=== PATIENT | female | born 1995 | race Caucasian/White ===

== ENCOUNTER 2023-05-21 16:54 | Emergency (ER) | payer BC, SELFPAY ==
[2023-05-21 16:59] VITALS: BP 138/92; PULSE 93; RESP 18; TEMP 36.6; O2SAT 100; BMI 42.9
--- NOTE | 2023-05-21 17:13 | ECG_ITS ---
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
--- NOTE | 2023-05-21 17:13 | XR_ITS ---
The [address] [address] Patient Name: VADIM CONSTANTINO MRN: [id number] date: 1995 Sex: F Assigned Patient Location: ER Current Patient Location: ER Accession/Order Number: [id number] Exam Date: 05/21/2023 17:31 Report Date: 05/21/2023 18:38 At the request of: MARTA MARTIN Procedure: XR chest 1V EXAM: XR chest 1V at 1701 hours HISTORY: cp COMPARISON: None. TECHNIQUE: AP upright portable chest X FINDINGS: The heart is not enlarged and the vasculature is not distended. No acute infiltrate, effusion or pneumothorax is identified. The osseous structures are grossly intact. XR/XR chest 1V IMPRESSION: No acute infiltrate or evidence of cardiac decompensation. Direct comparison with a previous study would be helpful in determining the chronicity of these findings. Electronically authenticated by: WILMER MYLES Date: 05/21/2023 18:38
[2023-05-21] MEDS: FAMOTIDINE/PF 20 MG/2 ML VIAL IV (17:29)
[2023-05-21 17:36] LABS: Basophils Absolute Auto 0.1 10^3/uL (0.0-0.1); Basophils Percent Auto 0.8 % (0.2-2.0); Eosinophils Absolute Auto 0.2 10^3/uL (0.0-0.7); Eosinophils Percent Auto 1.3 % (0.9-7.0); Hematocrit 38.7 % (36.0-48.0); Hemoglobin 12.2 g/dL (12.0-16.0); Immature Granulocytes Abs Auto 0.29 10^3/uL (0.00-0.03); Immature Granulocytes Pct Auto 1.9 % (0.0-0.5); Lymphocytes Absolute Auto 5.7 10^3/uL (1.2-3.8); Lymphocytes Percent Auto 37.8 % (20.5-60.0); Mean Corpuscular HGB Conc 31.5 g/dL (29.9-35.2); Mean Corpuscular Hemoglobin 25.4 pg (26.7-34.0); Mean Corpuscular Volume 80.6 fL (81.0-99.0); Mean Platelet Volume 9.1 fL (9.5-13.5); Monocytes Absolute Auto 0.8 10^3/uL (0.3-0.8); Monocytes Percent Auto 5.3 % (1.7-12.0); Neutrophils Absolute Auto 7.9 10^3/uL (1.4-6.5); Neutrophils Percent Auto 52.9 % (43.0-75.0); Platelet Count 442 10^3/uL (150-450); Red Cell Distribution Width 14.8 % (11.0-15.0)
[2023-05-21 17:54] LABS: Alanine Aminotransferase 38 U/L (14-59); Albumin Globulin Ratio 0.8; Albumin Level 3.6 g/dL (3.4-5.0); Alkaline Phosphatase 71 U/L (46-116); Anion Gap 9.6; Aspartate Amino Transferase 16 U/L (15-37); BUN Creatinine Ratio 17.6; Bilirubin Total 0.3 mg/dL (0.2-1.0); Calcium 8.8 mg/dL (8.5-10.1); Carbon Dioxide 29.1 mmol/L (21.0-32.0); Chloride 103 mmol/L (98-107); Estimated GFR (African America >60 (>=60); Estimated GFR (Non-African Ame >60 (>=60); Globulin 4.3 g/dL; Glucose 106 mg/dL (74-106); Potassium 3.7 mmol/L (3.5-5.1); Sodium 138 mmol/L (136-145); Total Protein 7.9 g/dL (6.4-8.2); Troponin I High Sensitivity 4.4 pg/mL (4.0-51.3)
--- NOTE | 2023-05-21 18:02 | CT_ITS ---
The [address] [address] Patient Name: VADIM CONSTANTINO MRN: [id number] date: 1995 Sex: F Assigned Patient Location: ER Current Patient Location: ED.MAIN Accession/Order Number: [id number] Exam Date: 05/21/2023 18:32 Report Date: 05/21/2023 19:10 At the request of: MARTA MARTIN Procedure: CT abdomen pelvis wo con EXAMINATION: CT abdomen pelvis wo con, 05/21/2023 6:32 PM EDT HISTORY: abd pain epigastric RUQ COMPARISON: None. TECHNIQUE: CT scan of the abdomen and pelvis was performed without IV contrast. CT dose reduction technique was used, including Automated Exposure Control. FINDINGS: LOWER CHEST: The visualized lungs are clear. LIVER: Unremarkable. GALLBLADDER AND BILIARY SYSTEM: Status post cholecystectomy. There is no intra or extrahepatic biliary ductal dilatation. SPLEEN: Unremarkable. PANCREAS: Unremarkable. ADRENAL GLANDS: Unremarkable. KIDNEYS AND URETERS: No nephrolithiasis or hydronephrosis. No ureteral calculus. BLADDER: Unremarkable. GASTROINTESTINAL TRACT: No evidence of bowel obstruction or colitis. Normal appendix. VASCULATURE: The abdominal aorta is normal in caliber. RETROPERITONEUM: No lymphadenopathy. PERITONEUM/MESENTERY: No abdominal ascites. No free air. PELVIS: No pelvic ascites or lymphadenopathy. BODY WALL: Small fat-containing umbilical hernia. BONES: No acute abnormality. CT/CT abdomen pelvis wo con IMPRESSION: Cholelithiasis. No gallbladder wall thickening or biliary ductal dilatation. Electronically authenticated by: MYLES BENEDICT Date: 05/21/2023 19:10
--- NOTE | 2023-05-21 18:14 | ED.ABDPAIN1 ---
HPI - Abdominal Pain General Chief Complaint: Abdominal Pain Stated Complaint: pressure in upper abdominal, sitting on chest, sha Time Seen by Provider: 05/21/23 17:05 Source: patient Mode of arrival: walk-in Limitations: no limitations History of Present Illness HPI narrative: The patient presented to us with a feeling of abdominal pain in her epigastric area radiating to her chest pressure-like, the patient mentioned that the pain was preceded by her eating almost an hour ago The pain started while she was laying down The patient mentioned that it was a pressure-like and associated with no sweating but she did had some nausea No history of smoking cigarette no history of similar symptoms Related Data Home Medications Medication Instructions Recorded Confirmed sertraline 50 mg tablet 50 mg PO Q24H 05/21/23 05/21/23 Allergies Allergy/AdvReac Type Severity Reaction Status Date / Time No Known Drug Allergies Allergy Verified 05/21/23 17:03 Review of Systems ROS Status of ROS 10 or more systems reviewed and unremarkable except as noted in history and below Exam Narrative Exam Narrative: Nurses notes and vital signs reviewed and patient is not hypoxic. General: Well-appearing and in no apparent distress. Skin: Warm, dry, no pallor noted. No rash. Head: Normocephalic, atraumatic. Neck: Supple, non-tender. Eye: Pupils are equal, round and EOMI. No scleral icterus. Ears, Nose, Mouth, and Throat: TM are clear, no nasal mucosal hypertrophy. Oral mucosa is moist, no posterior oropharynx erythema, uvula is mid-line Cardiovascular: Regular Rate and Rhythm without murmur, gallop or rub. Respiratory: No accessory muscle use or respiratory distress. Lungs are clear to auscultation, no wheezing, rales or rhonchi Chest Wall: no tenderness Back: No midline thoracic or lumbar vertebral tenderness. No CVA tenderness Musculoskeletal: normal ROM, no calf or popliteal tenderness, no lower extremity edema/swelling GI: Abdomen is soft, non-distended. Normal bowel sounds. No masses appreciated. Mild epigastric tenderness Neurological: A&O x4. No cranial nerve dysfunction observed. No truncal ataxia. Moves all extremities. Sensation intact. Psychiatric: Cooperative and interactive. Normal mood and affect. Constitutional Vital Signs, click to edit/add: Last Vital Signs Temp 97.9 F 05/21/23 16:59 Pulse 93 H 05/21/23 16:59 Resp 18 05/21/23 16:59 BP 138/92 H 05/21/23 16:59 Pulse Ox 100 05/21/23 16:59 O2 Del Method Room Air 05/21/23 16:59 Course Vital Signs Vital signs: Vital Signs Temperature 97.9 F 05/21/23 16:59 Pulse Rate 93 H 05/21/23 16:59 Respiratory Rate 18 05/21/23 16:59 Blood Pressure 138/92 H 05/21/23 16:59 Pulse Oximetry 100 05/21/23 16:59 Oxygen Delivery Method Room Air 05/21/23 16:59 Temperature 97.9 F 05/21/23 16:59 Pulse Rate 93 H 05/21/23 16:59 Respiratory Rate 18 05/21/23 16:59 Blood Pressure 138/92 H 05/21/23 16:59 Pulse Oximetry 100 05/21/23 16:59 Oxygen Delivery Method Room Air 05/21/23 16:59 MDM - Abdominal Pain MDM Narrative Medical decision making narrative: The patient EKG showing sinus rhythm with a heart rate of [address] elevation or depression The patient CBC shows some leukocytosis the first troponin was negative we will repeat another troponin due to the patient's risk factors of morbid obesity Chest x-ray showed no acute pathology The patient was treated in the ER with Pepcid right now mostly the patient presentation secondary to chest pain secondary to acid reflux The patient had a CAT scan abdomen pelvis pending------pt care will be transferred to Dr Yo awaiting the rest of the work up Lab Data Labs: Lab Results 05/21/23 05/21/23 Range/Units 12:12 17:00 WBC 15.0 H (4.0-11.0) 10^3/uL RBC 4.80 (4.20-5.40) 10^6/uL Hgb 12.2 (12.0-16.0) g/dL Hct 38.7 (36.0-48.0) % MCV 80.6 L (81.0-99.0) fL MCH 25.4 L (26.7-34.0) pg MCHC 31.5 (29.9-35.2) g/dL RDW 14.8 (11.0-15.0) % Plt Count 442 (150-450) 10^3/uL MPV 9.1 L (9.5-13.5) fL Neut % (Auto) 52.9 (43.0-75.0) % Lymph % (Auto) 37.8 (20.5-60.0) % [place] % (Auto) 5.3 (1.7-12.0) % Eos % (Auto) 1.3 (0.9-7.0) % Baso % (Auto) 0.8 (0.2-2.0) % Neut # (Auto) 7.9 H (1.4-6.5) 10^3/uL Lymph # (Auto) 5.7 H (1.2-3.8) 10^3/uL [place] # (Auto) 0.8 (0.3-0.8) 10^3/uL Eos # (Auto) 0.2 (0.0-0.7) 10^3/uL Baso # (Auto) 0.1 (0.0-0.1) 10^3/uL Abs Immat Gran (auto) 0.29 H (0.00-0.03) 10^3/uL Imm/Tot Granulo (auto) 1.9 H (0.0-0.5) % Sodium 138 (136-145) mmol/L Potassium 3.7 (3.5-5.1) mmol/L Chloride 103 (98-107) mmol/L Carbon Dioxide 29.1 (21.0-32.0) mmol/L Anion Gap 9.6 BUN 15.0 (7.0-18.0) mg/dL Creatinine 0.85 (0.55-1.02) mg/dL Est GFR ( Amer) >60 (>=60) Est GFR (Non-Af Amer) >60 (>=60) BUN/Creatinine Ratio 17.6 Glucose 106 (74-106) mg/dL Calcium 8.8 (8.5-10.1) mg/dL Total Bilirubin 0.3 (0.2-1.0) mg/dL AST 16 (15-37) U/L ALT 38 (14-59) U/L Alkaline Phosphatase 71 (46-116) U/L Troponin I High Sens 4.4 (4.0-51.3) pg/mL Total Protein 7.9 (6.4-8.2) g/dL Albumin 3.6 (3.4-5.0) g/dL Globulin 4.3 g/dL Albumin/Globulin Ratio 0.8 Urine HCG, Qual Negative (NEGATIVE) Discharge Plan Discharge Patient Disposition: Still a Patient
[2023-05-21 18:40] LABS: HCG Qualitative NEGATIVE (NEGATIVE)
[2023-05-21 19:23] LABS: Troponin I High Sensitivity <4.0 pg/mL (4.0-51.3)
[2023-05-21 19:43] LABS: D Dimer 0.57 mg/L FEU (<=0.59)
[2023-05-21] MEDS: 0.9 % SODIUM CHLORIDE 1,000 ML 999 ML IV (20:10)
[2023-05-21] MEDS: ONDANSETRON PF 4 MG/2 ML VIAL IV (20:10)
[2023-05-21] MEDS: PANTOPRAZOLE SODIUM 40 MG VIAL IV (20:15)
[2023-05-21 20:37] LABS: Bilirubin Urine NEGATIVE (NEGATIVE); Blood Urine MODERATE (NEGATIVE); Clarity Urine CLEAR (CLEAR); Color Urine YELLOW (YELLOW); Glucose Urine UA NEGATIVE (NEGATIVE); Ketones Urine NEGATIVE (NEGATIVE); Leukocyte Esterase Urine NEGATIVE (NEGATIVE); Nitrite Urine NEGATIVE (NEGATIVE); Protein Urine NEGATIVE (NEG/TRACE); Specific Gravity Urine >=1.030 (1.005-1.025); Urine Microscopic Indicated YES; Urobilinogen Urine 0.2 EU/dL (0.2-1.0); pH Urine 5.5 (5.0-9.0)
[2023-05-21 20:44] LABS: Bacteria Urine MODERATE #/HPF (NONE SEEN); Cast Seen? NONE SEEN #/LPF (NONE SEEN); Crystals Seen? None Seen #/HPF (None Seen); Mucus Urine LARGE (NONE SEEN); Squamous Epithelial Cell Urine MANY #/LPF (NONE/RARE); Urine Culture Indicated YES
--- NOTE | 2023-05-25 09:54 | PC.NURSE ---
05/25/23 0954 pt c+s from urine reviewed by dr ifeanyi walker called into [facility] in [place] per pt request. pt updated on atb to follow up with pcp to verify uti clearance. pt v/u and denies any further question. Ron Frank RN
== END 2023-05-21 21:23 | disposition home or self-care (01) ==
PROVIDERS: Emergency Medicine; Emergency Provider Emergency Medicine
DX: K21.9 Gastro-esophageal reflux disease without esophagitis (principal); E66.01 Morbid (severe) obesity due to excess calories; Z79.899 Other long term (current) drug therapy; Z68.41 Body mass index [BMI] 40.0-44.9, adult
CPT/HCPCS: 36415; 71045; 74176; 80053; 81003; 81015; 84484; 84703; 85025; 85378; 87086; 87150; 87186; 93005; 96374; 96375; 99285

== ENCOUNTER 2023-12-13 14:00 | Outpatient (OUT) | payer BC, SELFPAY ==
--- NOTE | 2023-12-13 | US_ITS ---
[address] [address] Patient Name: VADIM CONSTANTINO MRN: [id number] date: 1995 Sex: F Assigned Patient Location: [facility] Current Patient Location: [facility] Accession/Order Number: [id number] Exam Date: 12/13/2023 14:02 Report Date: 12/13/2023 15:36 At the request of: ESTELLA BUENO Procedure: US OB transvaginal EXAMINATION: US OB transvaginal HISTORY: MISSED MENSES COMPARISON: No relevant comparison available. FINDINGS: GESTATIONAL SAC: Present and normal appearing. YOLK SAC: Present and normal appearing. POLE: Present and normal appearing. CARDIAC: Present. UTERUS: Normal size and appearance. OVARIES: Right: Normal. Left: Normal. CERVIX: 4.2 cm in length and closed. CUL-DE-SAC: Normal. OTHER: None. AGE BY LMP: 9 weeks 0 days NILE BY LMP: 07/17/2024 AGE BY US CRL: 8 weeks 3 days NILE BY US CRL: 07/21/2024 US/US OB transvaginal IMPRESSION: 1. Single live intrauterine . Electronically authenticated by: DEE GALLEGOS Date: 12/13/2023 15:36
== END 2023-12-13 14:01 | disposition home or self-care (01) ==
LOC: NOMS 14:00
PROVIDERS: Visit Provider Obstetrics & Gynecology
DX: Z34.91 Encounter for supervision of normal pregnancy, unspecified, first trimester (principal); Z3A.08 8 weeks gestation of pregnancy; N92.6 Irregular menstruation, unspecified
CPT/HCPCS: 76817

== ENCOUNTER 2023-12-20 12:10 | Outpatient (OUT) | payer BC, SELFPAY ==
--- OUTSIDE RECORDS SUMMARY | 2023-12-20 12:16 | XMS_ITS | CCD ---
Author Name Unknown Address [address] [place] [address] Organization [facility] Care Team Providers Care Stereo Equipment Salesperson Name Role Phone MECHELLE ., DR SORIA Attending Unavailable SANTANA, DR GISSEL Teresa Primary Care Unavailable MECHELLE ., DR SORIA Consulting Unavailable MECHELLE ., DR SORIA Admitting Unavailable SANTANA, DR GISSEL Teresa Primary Care Unavailable MECHELLE ., DR SORIA Attending Unavailable MECHELLE ., DR SORIA Consulting Unavailable MECHELLE ., DR SORIA Admitting Unavailable MECHELLE ., DR SORIA Attending Unavailable SANTANA, DR GISSEL Teresa Primary Care Unavailable MECHELLE ., DR SORIA Consulting Unavailable MECHELLE ., DR SORIA Admitting Unavailable ZIEBER, DR DEE Green Consulting Unavailable SANTANA, DR GISSEL Teresa Primary Care Unavailable MECHELLE ., DR SORIA Attending Unavailable Sebastian Henry Consulting Unavailable MECHELLE ., DR SORIA Admitting Unavailable MECHELLE ., DR SORIA Consulting Unavailable SANTANA, DR GISSEL Teresa Primary Care Unavailable MECHELLE ., DR SORIA Attending Unavailable MECHELLE ., DR SORIA Consulting Unavailable MECHELLE ., DR SORIA Admitting Unavailable ZIEBER, DR DEE Green Consulting Unavailable SANTANA, DR GISSEL Teresa Primary Care Unavailable KARASIK ., DR MONTENEGRO Attending Unavailabl e KARRENEK ., DR MONTENEGRO Consulting Unavailabl e KARASIK ., DR MONTENEGRO Admitting Unavailabl e SANTANA, DR GISSEL Teresa Primary Care Unavailable KARASIK ., DR MONTENEGRO Consulting Unavailabl e KARRENEK ., DR MONTENEGRO Admitting Unavailabl e KARRENEK ., DR MONTENEGRO Attending Unavailjudith e Sebastian Henry Consulting Unavailable MECHELLE ., DR SORIA Consulting Unavailable ESTHER, DR GISSEL Teresa Primary Care Unavailable MECHELLE ., DR SORIA Consulting Unavailable MECHELLE ., DR SORIA Admitting Unavailable MECHELLE ., DR SORIA Attending Unavailable ZIEBER, DR DEE Green Consulting Unavailable SANTANA, DR GISSEL Teresa Primary Care Unavailable MECHELLE ., DR SORIA Attending Unavailable MECHELLE ., DR SORIA Consulting Unavailable MECHELLE ., DR SORIA Admitting Unavailable SANTANA, DR GISSEL Teresa Primary Care Unavailable MECHELLE ., DR SORIA Attending Unavailable MECHELLE ., DR SORIA Consulting Unavailable MECHELLE ., DR SORIA Admitting Unavailable ZIEBER, DR DEE Green Consulting Unavailable SANTANA, DR GISSEL Teresa Primary Care Unavailable MECHELLE ., DR SORIA Attending Unavailable MECHELLE ., DR SORIA Consulting Unavailable MECHELLE ., DR SORIA Admitting Unavailable MECHELLE ., DR SORIA Attending Unavailable SANTANA, DR GISSEL Teresa Primary Care Unavailable MECHELLE ., DR SORIA Consulting Unavailable MECHELLE ., DR SORIA Admitting Unavailable SANTANA, DR GISSEL Teresa Primary Care Unavailable KARASIK ., DR MONTENEGRO Consulting Unavailabl e KARASIK ., DR MONTENEGRO Admitting Unavailabl e KARASIK ., DR MONTENEGRO Attending Unavailabl e SANTANA, DR GISSEL Teresa Primary Care Unavailable KARASIK ., DR MONTENEGRO Consulting Unavailabl e KARASIK ., DR MONTENEGRO Admitting Unavailabl e KARASIK ., DR MONTENEGRO Attending Unavailabl e SANTANA, DR GISSEL Teresa Primary Care Unavailable KARASIK ., DR MONTENEGRO Consulting Unavailabl e KARASIK ., DR MONTENEGRO Admitting Unavailabl e KARASIK ., DR MONTENEGRO Attending Unavailabl e SANTANA, DR GISSEL Teresa Primary Care Unavailable MECHELLE ., DR SORIA Attending Unavailable MECHELLE ., DR SORIA Consulting Unavailable MECHELLE ., DR SORIA Admitting Unavailable MECHELLE ., DR SORIA Attending Unavailable SANTANA, DR GISSEL Teresa Primary Care Unavailable MECHELLE ., DR SORIA Admitting Unavailable MECHELLE ., DR SORIA Consulting Unavailable SANTANA, DR GISSEL Teresa Primary Care Unavailable MECHELLE ., DR SORIA Attending Unavailable MECHELLE ., DR SORIA Consulting Unavailable MECHELLE ., DR SORIA Admitting Unavailable SANTANA, DR GISSEL Teresa Primary Care Unavailable MECHELLE ., DR SORIA Attending Unavailable MECHELLE ., DR SORIA Consulting Unavailable MECHELLE ., DR SORIA Admitting Unavailable MECHELLE ., DR SORIA Admitting Unavailable SANTANA, DR GISSEL Teresa Primary Care Unavailable MECHELLE ., DR SORIA Attending Unavailable SANTANA, DR GISSEL Teresa Primary Care Unavailable KARASIK ., DR MONTENEGRO Attending Unavailabl e KARRENEK ., DR MONTENEGRO Admitting Unavailabl e SANTANA, DR GISSEL Teresa Primary Care Unavailable KARASIK ., DR MONTENEGRO Admitting Unavailabl e KARASIK ., DR MONTENEGRO Attending Unavailabl e HOY ., DR SHOEMAKER Consulting Unavailable KARASIK ., DR MONTENEGRO Consulting Unavailabl e MECHELLE ., DR SORIA Consulting Unavailable ZIEBER, DR DEE Green Consulting Unavailable LEO, LISSETT Consulting Unavailable YOEL MAY Consulting Unavailable SANTANA, DR GISSEL Teresa Primary Care Unavailable MECHELLE ., DR SORIA Attending Unavailable MECHELLE ., DR SORIA Admitting Unavailable MECHELLE ., DR SORIA Attending Unavailable MECHELLE ., DR SORIA Admitting Unavailable Aniket, Sebastian Consulting Unavailable SANTANA, DR GISSEL Teresa Primary Care Unavailable MECHELLE ., DR SORIA Consulting Unavailable SANTANA, DR GISSEL eTresa Primary Care Unavailable MECHELLE ., DR SORIA Admitting Unavailable MECHELLE ., DR SORIA Attending Unavailable Gissel Santana Unavailable TERESA Witt Attending Provider Olive Howard Unavailable Linsey Witt Attending Unavailable Linsey Witt Admitting Unavailable NO FAMILY, PHYSICIAN Primary Care Unavailable Linsey Witt Unavailable Gissel Santana MD Primary Care Provider [phone] Medications Current Medications Medication Drug Class(es) Dates Sig (Normalized) Sig (Original) amoxicillin 500 mg oral capsule (3 sources) Penicillin-class Antibacterial Start: 05-15-2023 take 1 capsule by mouth every twelve hours Amoxicillin 500 MG 1 capsule Orally Twice a day for 10 days Apr, Active ondansetron 4 mg disintegrating oral tablet (1 source) Serotonin-3 Receptor Antagonist Start: 12-13-2023 End: 03-12-2024 take 1 tablet by mouth every six hours for nausea ondansetron ODT (Zofran-ODT) 4 MG disintegrating tablet Indications: Missed menses Take 1 tablet (4 mg) by mouth every 6 (six) hours if needed for nausea or vomiting 30 tablet 2 12/13/2023 03/12/2024 Active predniSONE 20 mg oral tablet (3 sources) Start: 05-15-2023 take 1 tablet by mouth every twelve hours prednisone 20 MG 1 tablet Orally BID for 5 18 Apr, 2023 Active Vit-Fe Fumarate-FA ( Plus/Iron) 27-1 MG tablet (1 source) Start: 12-13-2023 End: 12-12-2024 take 1 tablet by mouth in the morning Vit-Fe Fumarate-FA ( Plus/Iron) 27-1 MG tablet Indications: Missed menses Take 1 tablet by mouth in the morning. 90 tablet 3 12/13/2023 12/12/2024 Active sertraline 50 mg oral tablet (10 sources) Serotonin Reuptake Inhibitor Start: 11-21-2023 take 1 tablet by mouth in the morning sertraline (Zoloft) 50 MG tablet Take 50 mg by mouth in the morning. 0 11/21/2023 Active Start: 04-12-2023 Sertraline HCl 50 MG 1/2 tablet for 7 days, then 1 daily Orally Once a day for 30 days Mar, Active take 1 tablet by rafat th every twenty-four hours Sertraline HCl 50 MG 1 tablet Orally Once a day for 90 days Active Sertraline HCl 5 0 MG TAKE 1/2 TABLET DAILY FOR 7 DAYS THEN 1 DAILY THEREAFTER for 30 Not-Taking Sertraline HCl 5 0 MG TAKE 1/2 TABLET DAILY FOR 7 DAYS THEN 1 DAILY THEREAFTER for 30 Active Completed/Discontinued Medications Medication Drug Class(es) Dates Sig (Normalized) Sig (Original) acetaminophen 325 mg / oxyCODONE hydrochloride 5 mg oral tablet (3 sources) Opioid Agonist oxyCODONE-Acetam inophe n 5-325 MG Oral for 3 Days Not-Taking/PRN docusate sodium 100 mg oral capsule (3 sources) Docusate Sodium 100 MG Oral for 30 Days Not-Taking/PRN Flowflex COVID-19 Ag Home Test - (3 sources) Flowflex COVID-1 9 Ag Home Test - In Vitro for 30 Days Not-Taking/PRN Flowflex COVID-1 9 Ag Home Test - In Vitro for 30 Days Not-Taking ibuprofen 800 mg oral tablet (3 sources) Nonsteroidal Anti-inflammatory Drug Ibuprofen 800 MG Oral for 8 Days Not-Taking/PRN 24 hr metFORMIN hydrochloride 500 mg extended release oral tablet (3 sources) Biguanide metFORMIN HCl ER 500 MG Oral for 30 Days Not-Taking/PRN norethindrone 0.35 mg oral tablet (4 sources) Start: 023 End: 024 take 1 tablet by mouth in the morning norethindrone (Micronor) 0.35 MG tablet Indications: control counseling Take 1 tablet (0.35 mg) by mouth in the morning. 84 tablet 3 04/04/2023 12/13/2023 Discontinued (Therapy completed) True Metrix Blood Glucose Test - (3 sources) True Metrix Bloo d Glucose Test - USE 1 TEST STRIP FOUR TIMES A DAY In Vitro for 25 Days Not-Taking/PRN True Metrix Bloo d Glucose Test - USE 1 TEST STRIP FOUR TIMES A DAY In Vitro for 25 Days Not-Taking Problems Active Problems Problem Classification Problem Date Documented Da te Episodic/Chronic Anxiety disorders (7 sources) Mixed anxiety and depressive disorder; Translations: [Anxiety disorder, unspecified] Chronic Diabetes or abnormal glucose tolerance complicating ; childbirth; or the puerperium (13 sources) Gestational diabetes mellitus in childbirth, controlled by oral hypoglycemic drugs; Translations: [Gestational diabetes mellitus in , unspecified control] Onset: 12-01-2022 Episodic Hypertension complicating ; childbirth and the puerperium (1 source) Unspecified pre-eclampsia, complicating childbirth; Translations: [UNSPECIFIED PRE-ECLAMPSIA COMP CB] Onset: 02-15-2023 Episodic Menstrual disorders (8 sources) Irregular menstruation, unspecified; Translations: [Secondary amenorrhea] Onset: 07-20-2022 Chronic Other complications of ; puerperium affecting management of mother (1 source) Obesity complicating childbirth; Translations: [OBESITY COMPLICATING CHILDBIRTH] Onset: 02-15-2023 Chronic Other nervous system disorders (1 source) Cerebral cysts; Translations: [CEREBRAL CYSTS] Onset: 11-15-2022 Chronic Other and delivery including normal (11 sources) Single live ; Translations: [ state, incidental] Onset: 07-21-2022 Episodic Other upper respiratory infections (1 source) Acute pharyngitis, unspecified Episodic Previous (3 sources) Maternal care for low transverse scar from previous delivery; Translations: [MAT CARE LW TRANS SCAR PREV C/S DEL] Onset: 02-01-2023 Episodic Residual codes; unclassified (1 source) 35 weeks gestation of ; Translations: [35 WEEKS GESTATION OF ] Onset: 02-15-2023 Episodic Residual codes; unclassified (1 source) Family history of diabetes mellitus; Translations: [FAMILY HISTORY OF DIABETES MELLITUS] Onset: 02-15-2023 Episodic Residual codes; unclassified (1 source) Family history of ischemic heart disease and other diseases of the circulatory system; Translations: [FAM HX ISCHEMIC HRT DZ OTH DZ CIRC] Onset: 02-15-2023 Episodic Residual codes; unclassified (1 source) 34 weeks gestation of ; Translations: [34 WEEKS GESTATION OF ] Onset: 01-31-2023 Episodic Residual codes; unclassified (1 source) 33 weeks gestation of ; Translations: [33 WEEKS GESTATION OF ] Onset: 01-21-2023 Episodic Residual codes; unclassified (1 source) 32 weeks gestation of ; Translations: [32 WEEKS GESTATION OF ] Onset: 01-19-2023 Episodic Umbilical cord complication (1 source) Labor and delivery complicated by cord around neck, with compression, not applicable or unspecified; Translations: [L AND D COMP CRD AROUND NCK COMPRS UNS] Onset: 02-15-2023 Episodic Past or Other Problems Problem Classification Problem Date Documented Date Episodic/Chronic Diabetes mellitus without complication (4 sources) Other abnormal glucose; Translations: [OTHER ABNORMAL GLUCOSE] Onset: 09-29-2022 Episodic Immunizations and screening for infectious disease (2 sources) Encounter for screening for human papillomavirus (HPV); Translations: [Contact with and (suspected) exposure to infections with a predominantly sexual mode of transmission] Onset: 11-15-2022 Episodic Mood disorders (1 source) Mood disorders Other complications of (1 source) Maternal care for other specified problems, unspecified trimester, not applicable or unspecified; Translations: [MAT CARE OTH FTL PROB UNS TRI UNS] Onset: 11-15-2022 Episodic Other female genital disorders (1 source) Other specified noninflammatory disorders of vagina; Translations: [OTH SPEC NONINFLAMMATORY D/O VAGINA] Onset: 11-15-2022 Episodic Other screening for suspected conditions (not mental disorders or infectious disease) (15 sources) Encounter for screening for malignant neoplasm of cervix; Translations: [Encounter for screening for diabetes mellitus] Onset: 07-27-2022 Episodic Residual codes; unclassified (1 source) Weeks of gestation of not specified; Translations: [WEEKS GESTATION NOT SPEC] Onset: 11-15-2022 Episodic Thyroid disorders (4 sources) Disorder of thyroid, unspecified; Translations: [DISORDER OF THYROID UNSPECIFIED] Onset: 10-19-2022 Episodic Results Test Name Value Interpretation Reference Range Facility HCG ( test) Ql (U)o n 12-13-2023 Interpretation and review of laboratory results Abnormal [facility] Preg Test, Ur Positive [facility] Urinalysis macro (dipstick) panel (U)on 12-13-2023 Bilirubin, UA Negative Negative - 4(70) +++ mg/dL [facility] Blood, UA Negative Negative - 50 Sal/mcL [facility] Clarity, UA Clear [facility] Color, UA Yellow [facility] Glucose, UA Negative Negative - 1999(110) ++++ mg/dL [facility] Interpretation and review of laboratory results Abnormal [facility] Ketones, UA Positive Negative - 160(16) ++++ mg/dL [facility] Leukocytes, UA Negative Negative - 500+++ Lizzy/mcL [facility] Nitrite, UA Negative Negative - Positive [facility] pH, UA 7.0 5 - 9 [facility] Protein, UA Positive Negative - 1999(20) ++++ mg/dL [facility] Spec Grav, UA 1.030 1 - 1.03 [facility] Urobilinogen, UA 0.2 0.2 - 12 mg/dL [facility] Quick Strepon 05-15-2023 S. pyogenes Org specific cx Ql (Throat) Negative [employer] [facility] [employer] Other Quick Strep [employer] [facility] [employer] Other Throat Cultureon 05-15-2023 Throat culture Heavy Normal Respiratory John 2 Days PERFORMED BY: [address] [place] [address] PATHOLOGIST FURNITURE REMOVALIST'S ASSISTANT ARACELI HAYWOOD M.D. Normal [facility] Comment on above: Performed By: #### C UT #### [address] [place] [address] [facility] B STREP CULTUREon 01-27 S. agalactiae Ag Ql (Unsp spec) Isolate 1 Streptococcus agalactiae Moderate growth of ORGANISM 1 Streptococcus agalactiae ANTIBIOTIC M.I.C RX STATUS Benzylpenicillin <=0.06 S F Ampicillin <=0.25 S F Cefotaxime <=0.12 S F Ceftriaxone <=0.12 S F Levofloxacin 0.5 S F Inducible Clindamycin Resistance Neg NEG F Erythromycin >=8 R F Clindamycin >=1 R F Linezolid <=2 S F Vancomycin 0.5 S F Tetracycline <=0.25 S F Normal [facility] Comment on above: Performed By: #### A FPMAT #### [facility] [address] [place] [address] Dr. Alexsander Dickinson CBC AUTO DIFFon 02-02-2023 BASO # 0.0 103/ul Normal 0.0-0.1 [facility] Comment on above: Performed By: #### C BC #### [facility] [address] [place] [address] Dr. Alexsander Dickinson Basophils/100 WBC (Bld) 0.2 % Normal 0.2-2.0 [facility] Comment on above: Performed By: #### C BC #### [facility] [address] [place] [address] Dr. Alexsander Dickinson EO # 0.0 103/ul Normal 0.0-0.7 [facility] Comment on above: Performed By: #### C BC #### [facility] [address] [place] [address] Dr. Alexsander Dickinson Eosinophils/100 WBC (Bld) 0.0 % Critically low 0.9-7.0 [facility] Comment on above: Performed By: #### C BC #### [facility] [address] [place] [address] Dr. Alexsander Dickinson Erythrocyte distribution width (RBC) [Ratio] 12.5 % Normal 11.0-15.0 [facility] Comment on above: Performed By: #### C BC #### [facility] [address] [address] [address] Alexsander Dickinson Hematocrit (Bld) [Volume fraction] 32.9 % Critically low 36.0-48.0 [facility] Comment on above: Performed By: #### C BC #### [facility] [address] [place] [address] Dr. Alexsander Dickinson Hemoglobin (Bld) [Mass/Vol] 10.7 g/dL Critically low 12.0-16.0 [facility] Comment on above: Performed By: #### C BC #### [facility] [address] [address] [address] Alexsander Dickinson IG # 0.12 10e3/ul Critically high 0.00-0.03 [facility] Comment on above: Performed By: #### C BC #### [facility] [address] [place] [address] Dr. Alexsander Dickinson IG % 0.7 % Critically high 0.0-0.5 [facility] Comment on above: Performed By: #### C BC #### [facility] [address] [place] [address] Dr. Alexsander Dickinson LYMPH # 1.1 103/ul Critically low 1.2-3.8 [facility] Comment on above: Performed By: #### C BC #### [facility] [address] [place] [address] Dr. Alexsander Dickinson Lymphocytes/100 WBC (Bld) 6.4 % Critically low 20.5-60.0 [facility] Comment on above: Performed By: #### C BC #### [facility] [address] [place] [address] Dr. Alexsander Dickinson MANUAL DIFF REQ NO Normal [facility] Comment on above: Performed By: #### C BC #### [facility] [address] [place] [address] Dr. Alexsander Dickinson MCH (RBC) [Entitic mass] 26.1 pg Critically low 26.7-34.0 [facility] Comment on above: Performed By: #### C BC #### [facility] [address] [place] [address] Dr. Alexsander Dickinson MCHC (RBC) [Mass/Vol] 32.5 g/dL Normal 29.9-35.2 [facility] Comment on above: Performed By: #### C BC #### [facility] [address] [address] [address] Alexsander Dickinson MCV (RBC) [Entitic vol] 80.2 fL Critically low 81.0-99.0 [facility] Comment on above: Performed By: #### C BC #### [facility] [address] [place] [address] Dr. Alexsander Dickinson MONO # 0.4 103/ul Normal 0.3-0.8 [facility] Comment on above: Performed By: #### C BC #### [facility] [address] [place] [address] Dr. Alexsander Dickinson Monocytes/100 WBC (Bld) 2.1 % Normal 1.7-12.0 [facility] Comment on above: Performed By: #### C BC #### [facility] [address] [place] [address] Dr. Alexsander Dickinson NEUT # 15.5 103/ul Critically high 1.4-6.5 [facility] Comment on above: Performed By: #### C BC #### [facility] [address] [place] [address] Dr. Alexsander Dickinson Neutrophils/100 WBC (Bld) 90.6 % Critically high 43.0-75.0 [facility] Comment on above: Performed By: #### C BC #### [facility] [address] [place] [address] Dr. Alexsander Dickinson Platelet mean volume (Bld) [Entitic vol] 10.7 fL Normal 9.5-13.5 [facility] Comment on above: Performed By: #### C BC #### [facility] [address] [place] [address] Dr. Alexsander Dickinson PLT 310 103/ul Normal 150-450 [facility] Comment on above: Performed By: #### C BC #### [facility] [address] [place] [address] Dr. Alexsander Dickinson RBC 4.10 106/ul Critically low 4.20-5.40 [facility] Comment on above: Performed By: #### C BC #### [facility] [address] [place] [address] Dr. Alexsander Dickinson WBC 17.1 103/ul Critically high 4.0-11.0 [facility] Comment on above: Performed By: #### C BC #### [facility] [address] [place] [address] Dr. Alexsander Dickinson CBC AUTO DIFFon 02-01-2023 BASO # 0.0 103/ul Normal 0.0-0.1 [facility] Comment on above: Performed By: #### A 1C #### [facility] [address] [place] [address] Dr. Alexsander Dickinson Basophils/100 WBC (Bld) 0.2 % Normal 0.2-2.0 [facility] Comment on above: Performed By: #### A 1C #### [facility] [address] [place] [address] Dr. Alexsander Dickinson EO # 0.0 103/ul Normal 0.0-0.7 [facility] Comment on above: Performed By: #### A 1C #### [facility] [address] [place] [address] Dr. Alexsander Dickinson Eosinophils/100 WBC (Bld) 0.4 % Critically low 0.9-7.0 [facility] Comment on above: Performed By: #### A 1C #### [facility] [address] [place] [address] Dr. Alexsander Dickinson Erythrocyte distribution width (RBC) [Ratio] 12.9 % Normal 11.0-15.0 [facility] Comment on above: Performed By: #### A 1C #### [facility] [address] [place] [address] Dr. Alexsander Dickinson Hematocrit (Bld) [Volume fraction] 34.2 % Critically low 36.0-48.0 [facility] Comment on above: Performed By: #### A 1C #### [facility] [address] [place] [address] Dr. Alexsander Dickinson Hemoglobin (Bld) [Mass/Vol] 11.4 g/dL Critically low 12.0-16.0 [facility] Comment on above: Performed By: #### A 1C #### [facility] [address] [place] [address] Dr. Alexsander Dickinson IG # 0.04 10e3/ul Critically high 0.00-0.03 [facility] Comment on above: Performed By: #### A 1C #### [facility] [address] [place] [address] Dr. Alexsander Dickinson IG % 0.5 % Normal 0.0-0.5 [facility] Comment on above: Performed By: #### A 1C #### [facility] [address] [place] [address] Dr. Alexsander Dickinson LYMPH # 2.1 103/ul Normal 1.2-3.8 [facility] Comment on above: Performed By: #### A 1C #### [facility] [address] [place] [address] Dr. Alexsander Dickinson Lymphocytes/100 WBC (Bld) 23.9 % Normal 20.5-60.0 [facility] Comment on above: Performed By: #### A 1C #### [facility] [address] [place] [address] Dr. Alexsander Dickinson MANUAL DIFF REQ NO Normal [facility] Comment on above: Performed By: #### A 1C #### [facility] [address] [place] [address] Dr. Alexsander Dickinson MCH (RBC) [Entitic mass] 27.0 pg Normal 26.7-34.0 [facility] Comment on above: Performed By: #### A 1C #### [facility] [address] [place] [address] Dr. Alexsander Dickinson MCHC (RBC) [Mass/Vol] 33.3 g/dL Normal 29.9-35.2 [facility] Comment on above: Performed By: #### A 1C #### [facility] [address] [place] [address] Dr. Alexsander Dickinson MCV (RBC) [Entitic vol] 81.0 fL Normal 81.0-99.0 [facility] Comment on above: Performed By: #### A 1C #### [facility] [address] [place] [address] Dr. Alexsander Dickinson MONO # 0.5 103/ul Normal 0.3-0.8 [facility] Comment on above: Performed By: #### A 1C #### [facility] [address] [place] [address] Dr. Alexsander Dickinson Monocytes/100 WBC (Bld) 6.0 % Normal 1.7-12.0 [facility] Comment on above: Performed By: #### A 1C #### [facility] [address] [place] [address] Dr. Alexsander Dickinson NEUT # 5.9 103/ul Normal 1.4-6.5 [facility] Comment on above: Performed By: #### A 1C #### [facility] [address] [place] [address] Dr. Alexsander Dickinson Neutrophils/100 WBC (Bld) 69.0 % Normal 43.0-75.0 [facility] Comment on above: Performed By: #### A 1C #### [facility] [address] [place] [address] Dr. Alexsander Dickinson Platelet mean volume (Bld) [Entitic vol] 10.5 fL Normal 9.5-13.5 [facility] Comment on above: Performed By: #### A 1C #### [facility] [address] [place] [address] Dr. Alexsander Dickinson PLT 275 103/ul Normal 150-450 [facility] Comment on above: Performed By: #### A 1C #### [facility] [address] [place] [address] Dr. Alexsander Dickinson RBC 4.22 106/ul Normal 4.20-5.40 [facility] Comment on above: Performed By: #### A 1C #### [facility] [address] [place] [address] Dr. Alexsander Dickinson WBC 8.6 103/ul Normal 4.0-11.0 [facility] Comment on above: Performed By: #### A 1C #### [facility] [address] [address] [address] Alexsander Dickinson LDHon 02-01-2023 LDH 124 U/L Normal 81-234 [facility] Comment on above: Performed By: #### C MP, LDH, URIC #### [facility] [address] [place] [address] Dr. Alexsander Dickinson POINT OF CARE GLUCOSEon Glucose [Mass/Vol] 98 mg/dL Normal 74-106 [facility] Comment on above: Performed By: #### A 1C #### [facility] [address] [place] [address] Dr. Alexsander Dickinson PROF 14(COMP METB)on 023 Albumin [Mass/Vol] 2.5 g/dL Critically low 3.4-5.0 [facility] Comment on above: Performed By: #### C MP, LDH, URIC #### [facility] [address] [place] [address] Dr. Alexsander Dickinson Albumin/Globulin [Mass ratio] 0.6 {ratio} Normal [facility] Comment on above: Performed By: #### C MP, LDH, URIC #### [facility] [address] [place] [address] Dr. Alexsander Dickinson ALP [Catalytic activity/Vol] 138 U/L Critically high 46-116 [facility] Comment on above: Performed By: #### C MP, LDH, URIC #### [facility] [address] [place] [address] Dr. Alexsander Dickinson ALT [Catalytic activity/Vol] 15 U/L Normal 14-59 [facility] Comment on above: Performed By: #### C MP, LDH, URIC #### [facility] [address] [place] [address] Dr. Alexsander Dickinson Anion gap [Moles/Vol] 14.5 mmol/L Normal [facility] Comment on above: Performed By: #### C MP, LDH, URIC #### [facility] [address] [place] [address] Dr. Alexsander Dickinson AST [Catalytic activity/Vol] 8 U/L Critically low 15-37 [facility] Comment on above: Performed By: #### C MP, LDH, URIC #### [facility] [address] [address] [address] Alexsander Dickinson Bilirubin [Mass/Vol] 0.2 mg/dL Normal 0.2-1.0 [facility] Comment on above: Performed By: #### C MP, LDH, URIC #### [facility] [address] [place] [address] Dr. Alexsander Dickinson Calcium [Mass/Vol] 8.6 mg/dL Normal 8.5-10.1 [facility] Comment on above: Performed By: #### C MP, LDH, URIC #### [facility] [address] [place] [address] Dr. Alexsander Dickinson Chloride [Moles/Vol] 103 mmol/L Normal 98-107 [facility] Comment on above: Performed By: #### C MP, LDH, URIC #### [facility] [address] [place] [address] Dr. Alexsander Dickinson CO2 [Moles/Vol] 23.7 mmol/L Normal 21.0-32.0 [facility] Comment on above: Performed By: #### C MP, LDH, URIC #### [facility] [address] [place] [address] Dr. Alexsander Dickinson Creatinine [Mass/Vol] 0.61 mg/dL Normal 0.55-1.02 [facility] Comment on above: Performed By: #### C MP, LDH, URIC #### [facility] [address] [place] [address] Dr. Alexsander Dickinson EGFR-AF DJIBOUTIAN >60 Normal >=60 [facility] Comment on above: Performed By: #### C MP, LDH, URIC #### [facility] [address] [place] [address] Dr. Alexsander Dickinson EGFR-NON AF DJIBOUTIAN >60 Normal >=60 [facility] Comment on above: Performed By: #### C MP, LDH, URIC #### [facility] [address] [address] [address] Alexsander Dickinson Globulin (S) [Mass/Vol] 4.1 g/dL Normal [facility] Comment on above: Performed By: #### C MP, LDH, URIC #### [facility] [address] [place] [address] Dr. Alexsander Dickinson Glucose [Mass/Vol] 123 mg/dL Critically high 74-106 [facility] Comment on above: Performed By: #### C MP, LDH, URIC #### [facility] [address] [place] [address] Dr. Alexsander Dickinson Potassium [Moles/Vol] 4.2 mmol/L Normal 3.5-5.1 [facility] Comment on above: Performed By: #### C MP, LDH, URIC #### [facility] [address] [place] [address] Dr. Alexsander Dickinson Protein [Mass/Vol] 6.6 g/dL Normal 6.4-8.2 [facility] Comment on above: Performed By: #### C MP, LDH, URIC #### [facility] [address] [place] [address] Dr. Alexsander Dickinson Sodium [Moles/Vol] 137 mmol/L Normal 136-145 [facility] Comment on above: Performed By: #### C MP, LDH, URIC #### [facility] [address] [place] [address] Dr. Alexsander Dickinson Urea nitrogen [Mass/Vol] 5.0 mg/dL Critically low 7.0-18.0 [facility] Comment on above: Performed By: #### C MP, LDH, URIC #### [facility] [address] [place] [address] Dr. Alexsander Dickinson Urea nitrogen/Creatinine [Mass ratio] 8.2 mg/mg Normal [facility] Comment on above: Performed By: #### C MP, LDH, URIC #### [facility] [address] [place] [address] Dr. Alexsander Dickinson PROTIMEon 02-01-2023 INR Coag (PPP) [Relative time] {INR} Normal [facility] Comment on above: Performed By: #### H BSANS #### [facility] [address] [place] [address] Dr. Alexsander Dickinson INR GUIDELINES SEE BELOW Normal [facility] Comment on above: Result Comment: CAROLEE RED INR: 2.0 - 3.0 CONDITIONS NOT LISTED BELOW 2.5 - 3.5 FOR PROSTHETIC HEART VALVE REPLACEMENT 2.5 - 3.5 RECURRENT THROMBOSIS Performed By: #### H BSANS #### [facility] [address] [place] [address] Dr. Alexsander Dickinson PT Coag (PPP) [Time] 9.2 s Normal 9.0-11.6 [facility] Comment on above: Performed By: #### H BSANS #### [facility] [address] [place] [address] Dr. Alexsander Dickinson PTTon 02-01-2023 aPTT Coag (Bld) [Time] 25.9 s Normal 22.3-36.2 [facility] Comment on above: Performed By: #### H BSANS #### [facility] [address] [place] [address] Dr. Alexsander Dickinson TYPE AND SCREENon 02-01-2023 TYPE AND SCREEN Negative Normal [facility] Comment on above: Performed By: #### A FPMAT #### [facility] [address] [place] [address] Dr. Alexsander Dickinson URIC ACID SERUMon 02-01-2023 Urate [Mass/Vol] 5.5 mg/dL Normal 2.6-6.0 [facility] Comment on above: Performed By: #### C MP, LDH, URIC #### [facility] [address] [place] [address] Dr. Alexsander Dickinson US PREG BIOPHY W NON STRESSo n 02-01-2023 US PREG BIOPHY W NON STRESS EXAMINATION: US PREG BIOPHY W NON STRESS HISTORY: Gestational diabetes mellitus complicating COMPARISON: Ultrasound patency biophysical 01/25/2023 FINDINGS: BREATHING MOVEMENTS: 2.0 GROSS BODY MOVEMENTS: 2.0 TONE: 2.0 QUALITATIVE AMNIOTIC FLUID VOLUME: 2.0 PRESENTATION: CEPHALIC HEART RATE: 142.9 bpm bpm. AMNIOTIC FLUID VOLUME: 21.0 cm GESTATIONAL AGE: 35 weeks 6 days CONCLUSION: Total biophysical profile score 8.0. Electronically authenticated by: DEE GALLEGOS Date: 2023-02-01 15:[address] [facility] US PREG BIOPHY W NON STRESSo n 01-25-2023 US PREG BIOPHY W NON STRESS EXAMINATION: US PREG BIOPHY W NON STRESS HISTORY: Gestational diabetes mellitus complicating COMPARISON: No relevant comparison available. TECHNIQUE: Ultrasound biophysical profile was performed in the radiology department. non-reactive stress testing was performed by nursing staff in the birthing center. FINDINGS: BREATHING MOVEMENTS: 2.0 GROSS BODY MOVEMENTS: 2.0 TONE: 2.0 QUALITATIVE AMNIOTIC FLUID VOLUME: 2.0 PRESENTATION: CEPHALIC HEART RATE: 157.0 bpm H.B./min AMNIOTIC FLUID VOLUME: 17.8 cm cm GESTATIONAL AGE: 34 weeks 6 days CONCLUSION: Total biophysical profile score: 8.0 Electronically authenticated by: SEBASTIAN HENRY Date: 2023-01-25 15:[address] [facility] US PREG BIOPHY W NON STRESSo n 01-19-2023 US PREG BIOPHY W NON STRESS EXAMINATION: US PREG BIOPHY W NON STRESS HISTORY: Gestational diabetes mellitus complicating COMPARISON: Ultrasound biophysical 01/11/2023 FINDINGS: BREATHING MOVEMENTS: 2.0 GROSS BODY MOVEMENTS: 2.0 TONE: 2.0 QUALITATIVE AMNIOTIC FLUID VOLUME: 2.0 PRESENTATION: CEPHALIC HEART RATE: 133.7 bpm bpm. AMNIOTIC FLUID VOLUME: 18.6 cm GESTATIONAL AGE: 33 weeks 6 days CONCLUSION: Total biophysical profile score 8.0. Electronically authenticated by: DEE GALLEGOS Date: 2023-01-19 06:[address] [facility] US PREG BIOPHY W NON STRESSo n 01-11-2023 US PREG BIOPHY W NON STRESS EXAMINATION: US PREG BIOPHY W NON STRESS HISTORY: Gestational diabetes mellitus COMPARISON: Ultrasound anatomy 10/17/2022 FINDINGS: BREATHING MOVEMENTS: 2.0 GROSS BODY MOVEMENTS: 2.0 TONE: 2.0 QUALITATIVE AMNIOTIC FLUID VOLUME: 2.0 PRESENTATION: Cephalic HEART RATE: 159.8 bpm bpm. AMNIOTIC FLUID VOLUME: 18.4 cm GESTATIONAL AGE: 32 weeks 6 days CONCLUSION: Total biophysical profile score 8.0. Electronically authenticated by: DEE GALLEGOS Date: 2023-01-11 15:38 Normal [facility] US PREG GROWTHon 01-11-2023 US PREG GROWTH EXAMINATION: US PREG GROWTH HISTORY: Gestational diabetes mellitus COMPARISON: Ultrasound anatomy 10/17/2022 FINDINGS: Heart Rate: 159.8 bpm Number: 1.0 Position: Cephalic Amniotic Fluid Volume: 18.4 cm Maximum Vertical Pocket: 5.5 cm BIOMETRY: BPD: 8.3 cm cm; 33 weeks 3 days HC: 31.5 cmcm; 35 weeks 2 days AC: 30.4 cm cm; 34 weeks 2 days FL: 6.2 cm cm; 32 weeks 0 days EFW: 2258.7 grams; 68% FL/AC: 20.3 FL/BPD: 74.2 HC/AC: 1.0 GESTATIONAL AGE: Age by EDC: 32 weeks 6 days NILE by EDC: 03/02/2023 Age by US: 33 weeks 5 days NILE by US: 02/24/2023 IMPRESSION: 1. Single live intrauterine with growth detailed above. Electronically authenticated by: DEE GALLEGOS Date: 2023-01-11 16:42 Normal [facility] GTT 3 HR PREGon 12-01-2022 Glucose [Mass/Vol] 104 mg/dL Normal 74-106 [facility] Comment on above: Performed By: #### A 1C #### [facility] [address] [place] [address] Dr. Alexsander Dickinson Glucose [Mass/Vol] 182 mg/dL Normal [facility] Comment on above: Performed By: #### A 1C #### [facility] [address] [address] [address] Alexsander Dickisnon Glucose [Mass/Vol] 114 mg/dL Normal [facility] Comment on above: Performed By: #### A 1C #### [facility] [address] [place] [address] Dr. Alexsander Dickinson Glucose [Mass/Vol] 73 mg/dL Normal [facility] Comment on above: Performed By: #### A 1C #### [facility] [address] [address] [address] Alexsander Dickinson PAP ACOG PANEL 2: 21 to 29 11-18-[address] [facility] Comment on above: Performed By: #### A 1C #### [facility] [address] [place] [address] Dr. Alexsander Dickinson Age Gdln ACOG Testing [facility] Comment on above: Performed By: #### A 1C #### [facility] [address] [place] [address] Dr. Alexsander Dickinson DIAGNOSIS: Comment [facility] Comment on above: Result Comment: NEGA TIVE FOR INTRAEPITHELIAL LESION OR MALIGNANCY. Performed By: #### A 1C #### [facility] [address] [address] [address] Alexsander Dickinson Methodology: Comment [facility] Comment on above: Result Comment: This liquid based ThinPrep(R) pap test was screened with the use of an image guided system. Performed By: #### A 1C #### [facility] [address] [place] [address] Dr. Alexsander Dickinson Note: Comment [facility] Comment on above: Result Comment: The Pap smear is a screening test designed to aid in the detection of premalignant and malignant conditions of the uterine cervix. It is not a diagnostic procedure and should not be used as the sole means of detecting cervical cancer. Both false-positive and false-negative reports do occur. . Performed By: #### A 1C #### [facility] [address] [place] [address] Dr. Alexsander Dickinson Performed by: Comment [facility] Comment on above: Result Comment: Cici Clakre, Heat Treater Apprentice (ASCP) Performed By: #### A 1C #### [facility] [address] [place], [place] [id number] Dr. Alexsander Dickinson Reflex Criteria: Comment [facility] Comment on above: Result Comment: The HPV DNA reflex criteria were not met with this specimen result therefore, no HPV testing was performed. . Performed By: #### A 1C #### [facility] [address] [place] [address] Dr. Alexsander Dickinson Specimen adequacy: Comment [facility] Comment on above: Result Comment: Sati sfactory for evaluation. No endocervical component is identified. Performed By: #### A 1C #### [facility] [address] [place] [address] Dr. Alexsander Dickinson CHLAMYDIA/GONOCOCCUS ZUNILDA ( AB/URINE/PAPon 11-17-2022 Chlamydia trachomatis, ZUNILDA Negative Normal Negative [facility] Comment on above: Performed By: #### A 1C #### [facility] [address] [place] [address] Dr. Alexsander Dickinson Neisseria gonorrhoeae, ZUNILDA Negative Normal Negative [facility] Comment on above: Performed By: #### A 1C #### [facility] [address] [place] [address] Dr. Alexsander Dickinson VAGINITIS/VAGINOSIS DNA PROB Jose De Jesus 11-16-2022 Reema species Negative Normal Negative [facility] Comment on above: Performed By: #### V AGINT #### [facility] [address] [place] [address] Dr. Alexsander Dickinson Gardnerella vaginalis Negative Normal Negative [facility] Comment on above: Performed By: #### V AGINT #### [facility] [address] [place] [address] Dr. Alexsander Dickinson Trichomonas vaginalis Negative Normal Negative [facility] Comment on above: Performed By: #### V AGINT #### [facility] [address] [place] [address] Dr. Alexsander Dickinson US PREG INCOMPLETE ANATOMYon 11-14-2022 US PREG INCOMPLETE ANATOMY EXAMINATION: US PREG INCOMPLETE ANATOMY HISTORY: screening COMPARISON: No relevant comparison available. FINDINGS: Heart rate: 150 bpm position: Variable Anatomy: 4.8 x 5.8 mm choroid plexus cyst is again identified IMPRESSION: Stable choroid plexus cyst Electronically authenticated by: SEBASTIAN HENRY Date: 2022-11-14 16:19 Normal [facility] FREE T4on 10-19-2022 Free T4 [Mass/Vol] 0.89 ng/dL Normal 0.76-1.46 [facility] Comment on above: Performed By: #### H BSANS #### [facility] [address] [address] [address] Alexsander Dickinson TSHon 10-19-2022 TSH 1.303 uIU/mL Normal 0.358-3.740 [facility] Comment on above: Performed By: #### H BSANS #### [facility] [address] [address] [address] Alexsander Dickinson US PREG ANATOMY SINGLEon US PREG ANATOMY SINGLE EXAMINATION: US PREG ANATOMY SINGLE HISTORY: anatomy study COMPARISON: No relevant comparison available. TECHNIQUE: Transabdominal sonographic examination was performed for obstetrical and evaluation. FINDINGS: Number: 1 Heart Rate: Present; rate not recorded Amniotic Fluid Volume: Subjectively normal Placental Location: POSTERIOR with lower margin 3.1 cm from os. Cervix Length: 4.5 cm; closed. ANATOMY: Normal Structures -cerebellum, choroid plexus, cisterna magna, lateral cerebral ventricles, orbits, midline falx, hard palate, four-chamber heart, RVOT, LVOT, stomach, kidneys, bladder, umbilical cord insertion into abdomen, three-vessel cord, cervical spine, thoracic spine, lumbar spine, sacral spine, right upper extremity, left upper extremity, right lower extremity, left lower extremity. SUBOPTIMALLY SEEN: None ABNORMALITIES: 4 mm cyst within within cord plexus of lateral ventricle. BIOMETRY: BPD: 4.5 cm 19 weeks 3 days HC: 17.7 cm 20 weeks 1 days AC: 16.2 cm 21 weeks 2 days FL: 3.5 cm 21 weeks 0 days EFW:388.2 grams; 66% FL/AC: 21.5 FL/BPD: 78.0 HC/AC: 1.1 GESTATIONAL AGE: Age by EDC: 20 weeks 4 days NILE by EDC: 03/02/2023 Age by current US: 20 weeks 3 days NILE by current US: 03/03/2023 IMPRESSION: 1. Single live intrauterine with growth detailed above. 2. Likely incidental choroid plexus cyst, 4 mm in diameter. Follow-up recommended. Electronically authenticated by: DEE GALLEGOS Date: 2022-10-17 20:42 Normal [facility] AFP MATERNAL FOR SPINA BIFID Aon 10-11-2022 AFP MoM 1.49 Normal [facility] Comment on above: Performed By: #### A FPMAT #### [facility] [address] [address] [address] Alexsander Dickinson AFP Value 60.8 ng/mL Normal [facility] Comment on above: Performed By: #### A FPMAT #### [facility] [address] [address] [address] Alexsander Dickinson AFP, Serum for Spina Bifida Report Normal [facility] Comment on above: Performed By: #### A FPMAT #### [facility] [address] [address] [address] Alexsander Dickinson Comment Comment Normal [facility] Comment on above: Result Comment: Niurka Patricia, Ph.D., [facility] Director . References: Available Upon Request. . Multiples Of Median Cutoffs For AFP Elevations Fonseca 2.5 Black 2.8 IDD 2.0 Twins 4.5 Abbreviation Definitions IDD - Insulin Dep Diabetes OSBR - Open Spina Bifida Risk . For further inquiries contact [employer] at [phone]. . This test was developed and its performance characteristics determined by [facility]. It has not been cleared or approved by the Food and Drug Administration. Performed By: #### A FPMAT #### [facility] [address] [place] [address] Dr. Alexsander Tiwari Age Collection Date 19.4 weeks [facility] Comment on above: Performed By: #### A FPMAT #### [facility] [address] [place], [place] [id number] Dr. Alexsander Dickinson Gestat, Age Based on NILE [facility] Comment on above: Result Comment: 02/2023 Recalculations are not recommended when gestational dating by LMP and ultrasound are within 10 days. Performed By: #### A FPMAT #### [facility] [address] [place] [address] Dr. Alexsander Dickinson Insulin Dep Diabetes No Normal [facility] Comment on above: Performed By: #### A FPMAT #### [facility] [address] [place] [address] Dr. Alexsander Dickinson Interpretation Comment Normal [facility] Comment on above: Result Comment: Inte rpretation: Screen Negative . This result is screen negative for OSB. The AFP MoM calculated is based on the gestational age provided. MS-AFP can identify up to 80% of open neural tube defects. Closed neural tube defects and some open defects may not be detected by this test. This test does not screen for Down Syndrome or Trisomy 18. If screening for Down Syndrome or Trisomy 18 is desired, contact [employer] to discuss available options. [employer] Obstetricians and Gynecologists recommends amniocentesis be offered to women age 35 and older. Performed By: #### A FPMAT #### [facility] [address] [place] [address] Dr. Alexsander Dickinson Maternal Age at NILE 27.[address] [facility] Comment on above: Performed By: #### A FPMAT #### [facility] [address] [place] [address] Dr. Alexsander Dickinson Multiple Gestation No Normal [facility] Comment on above: Performed By: #### A FPMAT #### [facility] [address] [place] [address] Dr. Alexsander Dickinson OSBR Risk 1 [place] 2809 Normal [facility] Comment on above: Performed By: #### A FPMAT #### [facility] [address] [place] [address] Dr. Alexsander Dickinson PDF . Normal [facility] Comment on above: Performed By: #### A FPMAT #### [facility] [address] [place] [address] Dr. Alexsander Dickinson Race Normal [facility] Comment on above: Performed By: #### A FPMAT #### [facility] [address] [place] [address] Dr. Alexsander Dickinson Test Results: Negative Normal [facility] Comment on above: Performed By: #### A FPMAT #### [facility] [address] [place] [address] Dr. Alexsander Dickinson GTT 3 HR PREGon 09-29-2022 Glucose [Mass/Vol] 99 mg/dL Normal 74-106 [facility] Comment on above: Performed By: #### A FPMAT #### [facility] [address] [address] [address] Alexsander Dickinson Glucose [Mass/Vol] 173 mg/dL Normal [facility] Comment on above: Performed By: #### A FPMAT #### [facility] [address] [address] [address] Alexsander Dickinson Glucose [Mass/Vol] 151 mg/dL Normal [facility] Comment on above: Performed By: #### A FPMAT #### [facility] [address] [address] [address] Alexsander Dickinson Glucose [Mass/Vol] 76 mg/dL Normal [facility] Comment on above: Performed By: #### A FPMAT #### [facility] [address] [address] [address] Alexsander Dickinson GLUCOSE - 1HRon 09-20-2022 Glucose [Mass/Vol] 159 mg/dL Critically high 74-106 [facility] Comment on above: Performed By: #### H BSANS #### [facility] [address] [address] [address] Alexsander Dickinson HEP B SURFACE ANTIGEN SCREEN on 08-17-2022 HBsAg Screen Negative Normal Negative [facility] Comment on above: Performed By: #### H BSANS #### [facility] [address] [address] [address] Alexsander Dickinson HEPATITIS C VIRUS AB W/ REFL EX QUANTon 08-17-2022 HCV AB <0.1 Normal 0.0-0.9 [facility] Comment on above: Performed By: #### A 1C #### [facility] [address] [address] [address] Alexsander Dickinson Interpretation: Comment Normal [facility] Comment on above: Result Comment: Nega tive Not infected with HCV, unless recent infection is suspected or other evidence exists to indicate HCV infection. Performed By: #### A 1C #### [facility] [address] [place] [address] Dr. Alexsander Dickinson HIV 1 AND 2 WITH REFLEXon HIV Screen 4th Generation wRfx Non-Reactive Normal Non Reactive [facility] Comment on above: Result Comment: HIV Negative HIV-1/HIV-2 antibodies and HIV-1 p24 antigen were NOT detected. There is no laboratory evidence of HIV infection. Performed By: #### H IV12 #### [facility] [address] [place] [address] Dr. Alexsander Dickinson RPR QUANTon 08-17-2022 Rapid Plasma Reagin, Quant Non-Reactive Normal NonRea<1:1 [facility] Comment on above: Result Comment: Plea se Note: This test does not meet current guidelines for screening and diagnosis of syphilis. This test is intended for following treatment response in patients being treated for syphilis infection. To screen for syphilis infection, a reflex cascade that includes both RPR and a treponema-specific assay should be utilized, such as Treponema pallidum (Syphilis) Screening Braxton (345373) or Rapid Plasma Reagin (RPR) Test With Reflex to Quantitative RPR and Confirmatory Treponema pallidum Antibodies (635545). Performed By: #### H BSANS #### [facility] [address] [place] [address] Dr. Alexsander Dickinson RUBELLA AB IGGon 08-17-2022 Rubella Antibodies, IgG 11.90 index Normal Immune >0.99 [facility] Comment on above: Result Comment: Non- immune <0.90 Equivocal 0.90 - 0.99 Immune >0.99 Performed By: #### H BSANS #### [facility] [address] [place] [address] Dr. Alexsander Dickinson CBC AUTO DIFFon 08-16-2022 BASO # 0.1 103/ul Normal 0.0-0.1 [facility] Comment on above: Performed By: #### H BSANS #### [facility] [address] [place] [address] Dr. Alexsander Dickinson Basophils/100 WBC (Bld) 0.6 % Normal 0.2-2.0 [facility] Comment on above: Performed By: #### H BSANS #### [facility] [address] [place] [address] Dr. Alexsander Dickinson EO # 0.1 103/ul Normal 0.0-0.7 [facility] Comment on above: Performed By: #### H BSANS #### [facility] [address] [place] [address] Dr. Alexsander Dickinson Eosinophils/100 WBC (Bld) 0.9 % Normal 0.9-7.0 [facility] Comment on above: Performed By: #### H BSANS #### [facility] [address] [place] [address] Dr. Alexsander Dickinson Erythrocyte distribution width (RBC) [Ratio] 12.9 % Normal 11.0-15.0 [facility] Comment on above: Performed By: #### H BSANS #### [facility] [address] [place] [address] Dr. Alexsander Dickinson Hematocrit (Bld) [Volume fraction] 39.0 % Normal 36.0-48.0 [facility] Comment on above: Performed By: #### H BSANS #### [facility] [address] [place] [address] Dr. Alexsander Dickinson Hemoglobin (Bld) [Mass/Vol] 12.9 g/dL Normal 12.0-16.0 [facility] Comment on above: Performed By: #### H BSANS #### [facility] [address] [place] [address] Dr. Alexsander Dickinson IG # 0.04 10e3/ul Critically high 0.00-0.03 [facility] Comment on above: Performed By: #### H BSANS #### [facility] [address] [place] [address] Dr. Alexsander Dickinson IG % 0.4 % Normal 0.0-0.5 [facility] Comment on above: Performed By: #### H BSANS #### [facility] [address] [place] [address] Dr. Alexsander Dickinson LYMPH # 2.4 103/ul Normal 1.2-3.8 [facility] Comment on above: Performed By: #### H BSANS #### [facility] [address] [place] [address] Dr. Alexsander Dickinson Lymphocytes/100 WBC (Bld) 26.3 % Normal 20.5-60.0 [facility] Comment on above: Performed By: #### H BSANS #### [facility] [address] [place] [address] Dr. Alexsander Dickinson MANUAL DIFF REQ NO Normal [facility] Comment on above: Performed By: #### H BSANS #### [facility] [address] [place] [address] Dr. Alexsander Dickinson MCH (RBC) [Entitic mass] 28.4 pg Normal 26.7-34.0 [facility] Comment on above: Performed By: #### H BSANS #### [facility] [address] [place] [address] Dr. Alexsander Dickinson MCHC (RBC) [Mass/Vol] 33.1 g/dL Normal 29.9-35.2 [facility] Comment on above: Performed By: #### H BSANS #### [facility] [address] [place] [address] Dr. Alexsander Dickinson MCV (RBC) [Entitic vol] 85.7 fL Normal 81.0-99.0 [facility] Comment on above: Performed By: #### H BSANS #### [facility] [address] [place] [address] Dr. Alexsander Dickinson MONO # 0.6 103/ul Normal 0.3-0.8 [facility] Comment on above: Performed By: #### H BSANS #### [facility] [address] [place] [address] Dr. Alexsander Dickinson Monocytes/100 WBC (Bld) 6.8 % Normal 1.7-12.0 [facility] Comment on above: Performed By: #### H BSANS #### [facility] [address] [place] [address] Dr. Alexsander Dickinson NEUT # 5.8 103/ul Normal 1.4-6.5 [facility] Comment on above: Performed By: #### H BSANS #### [facility] [address] [place] [address] Dr. Alexsander Dickinson Neutrophils/100 WBC (Bld) 65.0 % Normal 43.0-75.0 [facility] Comment on above: Performed By: #### H BSANS #### [facility] [address] [place] [address] Dr. Alexsander Dickinson Platelet mean volume (Bld) [Entitic vol] 9.9 fL Normal 9.5-13.5 [facility] Comment on above: Performed By: #### H BSANS #### [facility] [address] [place] [address] Dr. Alexsander Dickinson PLT 275 103/ul Normal 150-450 [facility] Comment on above: Performed By: #### H BSANS #### [facility] [address] [place] [address] Dr. Alexsander Dickinson RBC 4.55 106/ul Normal 4.20-5.40 [facility] Comment on above: Performed By: #### H BSANS #### [facility] [address] [place] [address] Dr. Alexsander Dickinson WBC 8.9 103/ul Normal 4.0-11.0 [facility] Comment on above: Performed By: #### H BSANS #### [facility] [address] [place] [address] Dr. Alexsander Dickinson CULTURE URINEon 08-16-2022 CULTURE URINE Culture Observations: MODERATE GROWTH OF MIXED GENITAL JOHN. NO POTENTIAL PATHOGENS SEEN. Normal [facility] Comment on above: Performed By: #### A FPMAT #### [facility] [address] [place] [address] Dr. Alexsander Dickinson GLYCOHEMOGLOBIN A1Con 2021 ADA RECOMMENDATION SEE BELOW Normal [facility] Comment on above: Result Comment: ADA RECOMMENDED LIMIT 4.0 - 6.0 ADA THERAPEUTIC TARGET < 7.0 ACTION SUGGESTED > 7.0 Performed By: #### A 1C #### [facility] [address] [place] [address] Dr. Alexsander Dickinson Glucose [Mass/Vol] 111 mg/dL Normal [facility] Comment on above: Performed By: #### A 1C #### [facility] [address] [address] [address] Alexsander Dickinson HbA1c (Bld) [Mass fraction] 5.5 % Normal 4.5-6.2 [facility] Comment on above: Performed By: #### A 1C #### [facility] [address] [place] [address] Dr. Alexsander Dickinson LATRELL BOX TEST PT SEND OUTo n 08-16-2022 SENT TO REF LAB 08/16/2022 Normal [facility] Comment on above: Performed By: #### N BOX #### [facility] [address] [place] [address] Dr. Alexsander Dickinson TYPE AND SCREENon 08-16-2022 TYPE AND SCREEN Negative Normal [facility] Comment on above: Performed By: #### A FPMAT #### [facility] [address] [place] [address] Dr. Alexsander Dickinson US PREG TVon 07-21-2022 US PREG TV EXAMINATION: US PREG TV HISTORY: Missed period COMPARISON: Ultrasound patency transvaginal 07/13/2022 FINDINGS: GESTATIONAL SAC: Present and normal appearing. POLE: Present and normal appearing. YOLK SAC: Present. CARDIAC: Present. UTERUS: Normal size and appearance. OVARIES: Right: Normal. Left: Normal. CERVIX: 3.4 cm in length and closed. CUL-DE-SAC: Normal. OTHER: None. AGE BY LMP: 10 weeks 4 days NILE BY LMP: 02/11/2023 AGE BY US CRL: 7 weeks 6 days NILE BY US CRL: 03/02/2023 IMPRESSION: 1. Single live intrauterine . Electronically authenticated by: DEE GALLEGOS Date: 2022-07-20 22:25 Normal [facility] US PREG TVon 07-13-2022 US PREG TV EXAMINATION: US PREG TV HISTORY: Missed period COMPARISON: 03/09/2022 FINDINGS: Fonseca intrauterine gestation Gestational sac: 1.7 cm, 6 weeks 2 days Yolk sac: 1.7 mm [place]-rump length: 5.8 mm, 6 weeks 3 days Heart rate: 125 bpm Uterus is normal in appearance, anteverted, retroflexed The ovaries are normal in appearance. Cervix: Closed, 3.9 cm small amount of fluid in the endocervical canal IMPRESSION: Viable fonseca intrauterine gestation measuring 6 weeks 3 days Electronically authenticated by: SEBASTIAN HENRY Date: 2022-07-13 17:05 Normal [facility] Coding Summaryon 03-17-2022 Coding Summary HTMLBase 64 IbvaxskpYJo3vOh+PGhl YWQ+IU5YSGUtN67nhUTs fA2RE8hHEQ7MZROEHUBZ XD5SDN1moVQ8FCiuT2Uv biAv QiytkQHtZF12SWl5IEW3 qCzkLDxcsK3moMDmL2u0 AzVvMO54vJ38IZdtRKJg BiN6JuDrdkifyQZi I5wiPiEkuDPfNye+PHRh YmxlIHdpZHRoPScxMDAl NgMpkRlkAE9dXc9uIYNa LWNvbGxhcHNlOiBj u7eeMFNnAUflSH6zbRyc N8VnhEB8KZZar9h8Ah74 dHI+PCPmCFX7eZmqXWiq m740ReQdq2eiPNL1 lNWiTKabDCQ5K30cl9T0 PJLhIKXlREG8fCU4pD0a wDosaqiaQ8MhlXXdSsX3 RNI6qGAimR0prZbt ryfxiD7jPjo+O35PTV0D SHOGZC4UTth4F6FtFzdl dHI+ZK04XACsQC79fJMg lSQsm9nkbLz6ZpIj TJUdNDP8fYneWQfil6Cy MKTvR07pfUZxu1I8FMCl bByumTNdArJinDG2hK6f JDjfhmgso3xitytu Mbieu2ztjd03yY05B50v HFvoCSHrKQS6ZZUcUDDd oMikfv2kgS6wTn9+IDxj z3qbs2jbxKf5TsDv OUOrccEvvCkrFKL0g5Po Ts99M0TkuCknv4YvRew5 wg88hPFqz4K0gAL7ZEhw CENljF1lGQehMlO8 EPEnFzBrbP84hEBmLXdz Ba6obHurwSrsVD4vKGMl ojdlCGHdoI4qLIFgbBUh dEatLM2hQUUkxnrh h322IhEbFTP8UFFiiWTs K5YzjT0mRaSyUFWrFSNk A1CffKHzIKmkG076DQsg SgO4GOQgnnCdU8La SCJbkPleClV8g0R9Qj2A c0RufqnbDYA5UVvrWBF1 GeGbKbLfFnH3H8DzNpm6 PHNckAfgCB0oO8Nb JUWhmqwrqkrguCK3UWNj LVTzhZ26eSFuMFiaAg7t d1X8t966WSEeDMCphA89 Hj9xuKfxATTkhABT gB9gqevry6ykzymuHkVe TNUoACn4RGr5KXYjgEac CqOmPAZ0PjH6KXD3mWOb mP8pcOdixmwgxG2r Oyc+E40snA5jZZJ3XZB7 fbtpTDIvmdHqVT16FM93 H9NaWgeibPTeaOD+PGRp woOtaTrqLV6bJzIc n8fhe1CdFWrgR6TkCGGv QJraGzr6PHLjMJS7tNS8 tD3jYALgCSvlc6F0hAN3 S2PtehKzpd7ie1rt WQAcRRauQ30vmKIkn6L5 VDYpsNE7LBYnzWgcZoWf wD55Enz+GTYdaUxki8No Jbwel0qrj6snlCm3 IjMwJSIgdmFsaWduPSJ0 u5LaNr25L85dAQzmHCHn FYShLAAeDFRthDvlzu9i jS5pEk0+PGNvbCB3 uPE2tX8iHKEnWgH3SQld P705DwSvgRPnWmswm4kz e7zdkXx2VlJfRCPytoYb bVxdNJU6b8WkRh85 U80pANglRWEiBWJiLWQy HVGpdBfwjd7xxG8lHr7+ WR6za9jkfx00jL44tWF+ ZOOhORC1uDffOKhb PHHehW6kRViqGyL1WENr XiJfwU11pCNoUIpxZg6s hCfcjSrgCU8iFIFjzfqn e330OuHvi1olKGAi rKXvLYprJME8Q98hy3G9 EJIiFPEeGUH9dQP0zI3u bGlnbjogbGVmdDsgdmVy nZmsQMdwSClcB060 IHRvcDsnPlBhdGllbnQg VkCgCUv5A6IyElu2IYPj cHtwVY6luNNbVVaoNk7w cBfkuTwzSZ5uYUAy mwqqf072VqGhy8phRPEm gBBaGPtmMLT1F09vj3M7 WEEoAFXhBWK7nZF7eA5x bGlnbjogbGVmdDsg eoRvfIknAYobJHdlJ577 IHRvcDsnPkJpcnRoIERh uJF4PV03DZ01pIGjs0E2 uFX6E8LrSOTynrbm gxounBX1MZCeBJImoA97 Ll3boYzuDd9wSBDkPST7 EZFraNAvH3LibI7iPnPt NNKgKJWyL6EdpZRg TLdpE169LDrzOxV7HEPm fgRxL9EnTBGfvMycCeY3 x1I2Ws7JM7G9KL79ZQ34 oJUcs1I4aKB9K2Fh NUHimqezncdugYJ7XQGd QSBthO12Hf5dwOcpMn6t ATNdCOM2KOFnnRMwS4Ms hZ0lBaSfNVWuLQGv I8ObiWKfMNeyR907LQmw GyH1PVApmkXnN9TlEAEb pFzoYqK1p6V8Vw6HEYt5 ON98WX75pHGor9O2 mPY8D3AvTIZumqgvbrwc mFQ9YPGkLIIclK18Ue1b hTvwJw1vEHKaSBM4JDGz hZWaS2VvxV9yAkSa DZZhDEPjG3YtpOIkJZct K702MZxuUbT2LNGdsnWp Q2AmLEAsuIulYsS2s5V4 Wj3LVWQjIO45OMP9 cPQ1WQ53BW79C6QnVmwd dGFibGU+PHRhYmxlIHdp ZHRoPScxMDAlJyBzdHls MF5sOy7hNYHgCBQd sQpjoZSwHuCbj5prMPRx WDliMH3zpLnxN8OhiTY2 FMJvg5n2Bb51L65rC5Zo dXA+WFZraHO4hVO2 lH4pMhLdEmN4JYbuL443 RoRxjGErFijcs3ixb8dn rJl3TqE5WGUiufSriNmb XJM4e8WwZi70K65k IHdpZHRoPSIxNSUiIHZh kFxmdn4bfF2dMb4+PGNv tKW1gPV1dU8pVwAiNhB2 TNgkU505TxWjdKMe Fpqho4bid9waiUw4XqYd ERXirwCobEzmPAN6k6Vg Ku31R1HylXdco4PzXzi1 vh05vECei2Z2lYQ4 N4EyZIGnjspduTOsdMje TX5kYQOuakddAZMygL7y IESkP7g1IyBfMqK6ZWip W8AackW7KNBhcCJj IHzzRMT5V01xp6W3GIKj ADCxBXY8kXE6hG3quVkf bjogbGVmdDsgdmVydGlj QEovFFuqR678EXTn hEwrXAPqbS1uUFPsdTDn aDohMK9dQYRkldxuMbCY TExJTlMsIEFMWVNTQSBS TONVEYs1A4VmGsk9 LVDnhPzvQG5awSFzNSzy Tq6awAvczIyyKH1rIGPy exuhXXCjbO6wDNGyaZDf yDbkLZ8hMSTuslzx x167NvRzKTX3VQLopNLs U3OwqB1jUfGtAPEeVMFz Q8KglPJcLSfyB643RCjj NaP9JWXflgYlD7Ay DMElwGxsFtL5u8I8Jt2j GK9oDx0uHMv7MB70EU39 xLVcz7O8wOL3L5McJTRk ltlmdwdfnRC5XTLm NBBgrK00dXSnJRxhNz2y p8Q6p616LWYiGFYfkS87 Vk5siYvcRFZmsNEAbB2f xevyj4awhssoRfLa XARtYLs6QGp4FWPvvZoy XeMzFLH0RkN3NVO6hJSa rU0itDiavzkgpL6zGtb+ WlrfNNUwqjA1P3Ts Flk2QXSdrXwfVU5hzGDc WDdjTq1yoGgliNvhVE9q PVArhlawRQVztN9zNKOc tHCnuIvhQL9jMNRg dvxpm204PfYwTCK1FVMq rCFmK8WprK1iNbSgLXDo ZCPeR9TadTGoGMswJ139 IJgqOfO3OREcjrCu W6QwYWEnlXonWeC3s3Y3 Kk8UNM4FXMK5P0JjZgr3 JIEgtUjgEQ9xcGRrMImd Ya7erZxtgKxqRJ4l ZNAtqrtgBICyyJ8cCWVm zTZoeXfvSA7tMWWzrxfd c070IlVlUJN9JBJcqKBq E3PswQ9tUyRsJPNv GTWyJ8RpaXYnYHuhU437 NZubWkM0XAWevbSlA3Gv HAPkuYrtGuR1j5A4Dv5I UDwvdGQ+GJ26jz10 S4FsGjnfByg4LNFhQPD2 lAX3hZ9yLTBkTThwu2X8 cCL4D0SjmuSxtz6nh0fi GAXtGPehH62vvOEp m3Z1OBSawNX2BTKxpLpa WzHqyM47Xtg+PGNvbGdy h7SnArtlq1jgy3xczCq8 IjMwJSIgdmFsaWdu NFW8j4UuUh47R05eEAuf ZHRoPSIzMCUiIHZhbGln by4etS8wQk6+PGNvbCB3 fOT7cY1uIfPnLqU2 VDdaE599CxAfsTGdGpwz p5avk0fvvPz4HiRsQIFu diRynRloEOM6e7OfAt23 L6MseDnyg8KeYvp7 ew37xPNqr9K2eFV3J8Xg NQIpqmqcyYSfjCreNI0j KKUmmerbONOvvR0tAHMf M8u4OwYaJiR8BSzt L4KtsoQ6QDCtfAXfVXMj gOCWzK2mcihet4wnfwnh SjRqATAyVEh6VQo0BQNw eKhgAkHsFAL5YvJ5 RXA9vVTudS7ktFehvliq vU5aSmj+DJs7v1fqiVSy SO9rwOW4ZI30FR34mMZk n7W4qSF4Z1JzCAYl xzqjdxhicCE5YABvUONp nX67Ss0hgWeeSh4tQAUi AHU2CNCruBVnR6VriA0k WxZwEQMgAETuV0Dh yNShEWouD939ZPplUpT9 FMAaleHkX4NmWSJpaAni XsF6x5O7Wq9AEU30JM75 SG43nQKeu7H8yXA3 O0LsUJGwxggfahfxtVW1 NGUsIJEguE18Ni8paKzv Uk2dUBNkCVC0LQOkkEAv Q7IfbW5jEnFeBLTq DAHiA5NicLJqQKoqN576 KBsdKnM1QCVukfFfA0Tx VEKilOnmViC6o2I7Jb7L Wz51NK68SI89wAUg o7B9iUP2P9HlURVomohb dzigvNT9XYUwWDPxlV95 Cj4nxTvkJr3uQQEfUFP1 QFRubNZjZ1UhyK3m ZgGePFFtZEOmC4YyfZWb UGcbH021XEtwXdH2VYMe voTfA3ClXNErrRyyLrA7 h9O2Dv4AQIaoojm5 D1MxWhmrpSL+II61GLWh PR80uOEnjPJmf9jewRz1 TpAuKPAdGVY2oYncXIxm t6FqPAImS44gbAZv c2U (more content not included)... [facility] Coding Summary HTMLBase 64 BbbvomeaQBv5yDs+PGhl YWQ+UY3GXOVjF36xmUVs cZ8DH6hKGY6OIFEKDWZH JV2NFO6waCF6KQftD4Ui biAv YgfacXZcCB76MZb2KLS4 qBbnNYzqnV8bbNSiI6n3 GbUaVR34pW64VYloUUOx YpS3BrFmvnbsiTXo I0khNjSepRTzSdo+PHRh YmxlIHdpZHRoPScxMDAl WcEtbPxlQK7eGs3eDWYf LWNvbGxhcHNlOiBj c1lhIDTaTDqsSK4dzEeo B0QoiQR7RMVqi0j9Fd06 dHI+QSEtYRB5rCtlSNlu q672LuLpn7ojGSH6 fDNnTNfgQEZ1O51uk6J9 UWWiDVGqUDK8qUR0dP5t pNykxmfzM0ChfTVuUwK1 PIO2tEFypL8iuScz oixzpL8xUuo+U60XVX1K CDPTDK8SUif3Q3GhTttc dHI+LB11MLRlSB69gPGd gQKua9bigCo3ZsVf YGZqQFB5xMynUGzno2Jf CWQiB41mlTWmk1F4JLEl aQgarXQjWnPiySR6nK1t IYtjrddek8adpdrt Eefzq0xzuc19uB13J25y TMvcZTToYAP9OYBbXTIn tEtndl8aqH3dLb2+IDxj j8zsf8yeaBi5AjJh MWTvojLvlAqwDYH7f7Rl Pa42A5ZfjFrau9VwVui1 sb69gZJgi7N7aSM6JEwa QAPubL2aBHnfNlY6 VIGtYrBmmF98iDHzSUbg Qa5fvAuqyPypOM9yJGUb lxgkGRYjzK4sTLOdbONv aUmfEQ7fYJFpnshv c579IkTnRDK8CDIbaJJl D9PzrU6qBpMiSQFsNSYd C7RcjFSuQZyfS676HBba TcO1WHExqaOzH1Kb XJMjlWkkJrH1i3Q8Ch6W a3TncebkIXF6WZgnRXS1 IzRtXlIkHiU1K0VqAyy6 GEHprIvjFS6rT8Og BHVwpfmbyblieSO9BUHd LYCvjP38mVBlCLooWn6w s0W3o645YEJgHSXhmN92 Yz3wrTunINQojYZM jM3hcbpff4iybugfOqJg NCHaNVc5UYj6QNMzwJia TmEuGLP3PjH2KYN3eEKh wJ7kzFyopauybF8d Oyc+J15dtW1uKRY4YYJ0 gxgpNQFjvqAiQM16VU69 M5RoUmmfmEEiuIC+PGRp zrHbkYrlJZ4fFoCn t4nep1IbLRdxJ6NaYZLe DAvcHub3EEKyYHF8dJK0 pL0cBWAnHDbef4T1aFB7 F9MbmhCclc6ak5zd PSYvIUywL52ldIGge9S4 FPSqoYZ6JBWdrBrvVjHd vV11Zxx+YCUqgFthl6Tw Vdjif9lja1etpFt8 IjMwJSIgdmFsaWduPSJ0 g1KqRx33F23tBPltGXVu IBGmEGOtDWIdoZtesy1m mN0tQt0+PGNvbCB3 xHP4mD8hIQEyClJ8DBbh Y774VkEnzREgDvydl0jb v2ijwDr4EqOpMMUaqyNf nBfpELG8o4HqJe00 Q33iZAyzNYVbAAVxZDAd ZXRhiPbiqw8vkB7vAi0+ LR8db7qgiv71hH50mVV+ AZOkTYD2zJmkWJhb HCKexL0tJWiuOdP2KFJj LgUmlL06dLAkHEfsTm1q gQaumVpuEH7tPCPlnbzn e048KfCfm0ghZMOl tZCwDOrtROF0S24uk6U8 FRScDIHdLBG4iGB1iU3r bGlnbjogbGVmdDsgdmVy mYaqLLvvZAmwU066 IHRvcDsnPlBhdGllbnQg FnXeBEn0T9QvBcy3TYHc zMdgDT8xkEWzIEseKk0u zLppcCadDJ8nJKWe hcrjk772MgCjc6wcPEDn dLJiAPzgMVE5O31tv1K2 RQIaFARcIFY7mMS6lV0v bGlnbjogbGVmdDsg ixDwrCuyQGtoCOozX367 IHRvcDsnPkJpcnRoIERh qWO1HU01TX15fHDpj3Q7 wPU3B4FkBHXyinab xtnbwWB8DIGiJPLqkU94 Al4mmZekYj9yVGIdYNF0 KBNxbSIdG8NypV1mGqWx ACFjSKFiF8SwsACf YFusB851DHvyJdS4ZWSi yiHvQ0JwKVElmEpxGaT9 q9W5Vb9PL8B0TK97BC37 zPHxh7W7hMM6P6Iq XNZvymptspfadZL8BQCd GEDmdO49Mh0jqIthFy9r ARZiJFY5JFVdnSDeV2Xj tC3cPqUsFCRpACOl Z9PfvMEuWIneU435SAaw CtS3UYCzkkFfY9VvNFDz xFbmBmO1e6X1Zf8DZRs7 OJ75LJ20xPEvh3F8 jMP5N8DcLPWbmymqyfmw jKU3OANoFBBgaM80Uk5p kEluDn9sUBBqTLK6EXId kOQgK2HmrC7yWtOd FIMqKJAuW7YytATfRNrv A305KTnpHlA4WECknxTg Q1KfNCLnlWxnGdG7j7L1 Pm0MXOMdBV23UVO9 lNB6XK43II70O6WbMwub dGFibGU+PHRhYmxlIHdp ZHRoPScxMDAlJyBzdHls QG6hPx2kYGWcFAYm kHxuqOCeEySay0rtHBBm TMymUJ0spQjpN9UjoKW9 AOPhv2g9Ap06V50nY4Mg dXA+SDZhiKC9hBO9 vM9iGtAvTpP3BNlhB145 VvMbfCAnNpusf6omm0of wBt2MxY3AHJvcmLrfDkb KRN0j9VnPu61I53b IHdpZHRoPSIxNSUiIHZh pAcmqw7bfX6pIk0+PGNv tNO2lQI5mL0iHtPdKqL0 PAmwD394LoHyrDEu Bcjfq0aqb4ygpHz4VhCg MWAlmhBaiMkzUKY8w5Vy Ea99K7AfwWoru4AiQgh6 jd66eDJnt0N1lNR9 T8AuWMRvnrxhkHIihTgc NH1fNEIkjcooVFFvdW2w ZYUgP7l9NaVgZjN2IJnw D7PbxzK0STGqeAVe QKyzZKF4M97fz8G3JGEs WYFlXUZ5pXS0uW4xvDry bjogbGVmdDsgdmVydGlj MStlYHieJ878AJId cVpcBZSxwE6hSVImaGAc pIhsZI0rKGPehgznFaHX TExJTlMsIEFMWVNTQSBS XKSSVJg5H8AqFlv1 CNJpkLiqEB1qnGZhTIxr Wf7wnYjerYyrIP0lRSBx widpVKGtzA7uACCjeKTs nAbwEP1qYZWnerur i822AxHjSES9LHLarVHn I5KdoR4fTzGuSTCqBJMo D2SpaPFlQHvkZ420VMea JaA8PMLtdcEoK8Yy QRSarBrtDnW4r0Y7Nj8m GJ1eMw9mWDr2OO15CY66 hLHjj0J2gSS2J7OxDIYq alflreetfVD4RSTc WYMwgO58oJGaLIryHg1a c2T4e946MNLxYAInzS73 Ow5cvMyiIXRaoGGGoC7o gxwwt4beqvkaDmYv LATlTXa8JRy8GZQkkHqn EhQhSSN3BaY0QMT5gUTl sQ1ufNrdshxbmZ3xAtn+ OlzkTUMsbcG6S5Vi Wyk9JPVysSadQR4miVLl ACteDf3viVrrnLtfWO5g AYDosbdyGRNniD7aUQKq yCYgaPcpML0bTBWz gsmyy684HiBtVYG1BMKk eNXtS4FbqU8hToFkVUHa KRArZ3YdlAQlGBqfU681 TMydOlR5JEPdftVj C8EqHLFpbDhwRaO9b0O6 Mf8QPH5BIHE4K9AgElc5 QJKwwDxuES9mqMJcGCso Qy2ltIcuwPfrJN8l NVIhiiwhBNVgyA5oXRAm aETzyHzxDE5oKDLequke l617NsOpUJV4IOYhaUCj A2ImlP5kDdJyBDZe QLLuY2DxoCVtYXxtQ761 JLxmYzQ1OUTziqNtC2Fe SWBodUwzHrH6i7H8Ni8G gORrR7XrC5z6P7Aq PjwvdHI+AB79PYHbPB12 zCJryDNga1oewKr5SnWv MEUwOOL0bIppBGoee0Uf JEGfR46ejFFjw6O2 IGNvbGxhcHNlOyBlbXB0 pZ1sDIslwomfu3hljszb Kvndw4wdak47uL70C01u IHdpZHRoPSIzMCUi FIYdfNfvbp8ruN2lDz3+ VMQvzYH3xVL3wJ6oMcYm BjX5LDlyN058QlEdiWNe Fziau7vnf1bizDw6 IjIwJSIgdmFsaWduPSJ0 m5GpYf37Y47cOOgpPMVi OTBrZFTqPUIgfWzzbt1u eC0cAc1+QJ7bu6lz uo33aX89zPN+PHRkIHN0 hXocIBwoOTWxjA2ySNru CgQ3RDIqZnCwiC71aMJv ISycOl2jwAosoWku DX4kVZJawsery970HbNa j2kyHNKtbJJwIPseAZK5 E75zf8T0XBDgGECrCCX0 iTS4jE2qoIvbafew bGVmdDsgdmVydGljYWwt WUmkL287IOVtlZhkTiWj tMGmE9dehsYVRY4qHtlq dGQ+XFNeBIH0aEbv EZyqWCJuaK9sPKBqI5c2 YmPfPbI1SDopE8BorjG0 NEKqmKOyELBwsXAOvU6j jngby2tirwqgJzHe GWDsZFp2MQk9WFIudEcl TnPpXLD3BwK1ZYS4nUTn vL9bgKellxauwT6lDqo+ RklOOjwvdGQ+PHRk AAY8kQstDLnvGHBkwQ1s ZQCeZ7a8RiUnKgB3ETcb O2WpjhI5IFPanNYlCCJa cNOWeV0kazhmj6ut hrnsIeIoQEHpMZt5ZOb5 ILBlsIceRjVsPXQ1MhU0 UVI4yDUvqA0txEimkjtb aR5xObg+TVJOOjwv dGQ+OVHuHPK8tGjcJKxx VKGtxH1uTALoE4r9HqUe PlB7ALijW9StsdC0KXRs iORmYCEwaTUUjW9h amtez3dnwdvgSgWsSVMc TGg0RHd6HOMmoFoeOvFv KQM7YcM2XIE1kCMipU1j kPvtxwrnsF6mLlj+ OKS1JAR1BD34UW61J4Ep PjwvdGFibGU+PHRhYmxl IHdpZHRoPScxMDAlJyBz vYwzHR0dNq6cLBCd LWN (more content not included)... Normal [facility] C Urineon 03-11-2022 C Urine Urine Culture ordered as a result of parameters set on specific urine dip and urine microsopic results. >3 Organisms Consistent with Contamination Recollection suggested. Normal [facility] Comment on above: Performed By: #### 1 5668873, 32996426, 4832861, 0447096472, 32110650, 4323483, 3056608870, 0939715058, 7819911808, 4242772 #### [facility] (DEFAULT) [address] [place] [address] 23368 .Auto Diff 103-09-2022 Auto Ashe % 8 % Normal 11-09 [facility] Comment on above: Performed By: #### 1 3675942, 25875396, 1878713, 0621774305, 63429267, 2114823, 7515739342, 6805894062, 7336442027, 6746761 #### [facility] (DEFAULT) [address] [place] [address] 81333 Baso Abs# 0.0 x10 Normal 0.0-0.2 [facility] Comment on above: Performed By: #### 1 3251214, 87076638, 1592174, 9955025227, 96409033, 4687511, 5320689430, 4238058056, 3027776777, 3191874 #### [facility] (DEFAULT) [address] [place] [address] 70964 Basophils/100 WBC (Bld) 0.3 % Normal 0.2-2.0 [facility] Comment on above: Performed By: #### 1 6717049, 62738959, 5964244, 2566843581, 17286025, 5015208, 3611735296, 4569643541, 7433910301, 4398319 #### [facility] (DEFAULT) [address] [place] [address] 67890 Eos Abs# 0.1 x10 Normal 0.0-0.4 [facility] Comment on above: Performed By: #### 1 3653426, 63600745, 4492998, 7306664595, 93921947, 5943115, 7200218864, 5644123315, 2100226583, 5854594 #### [facility] (DEFAULT) [address] [place] [address] 34749 Eosinophils/100 WBC (Bld) 1.0 % Normal 0.9-4.0 [facility] Comment on above: Performed By: #### 1 4708031, 86912598, 1913301, 5580001694, 69340894, 4812792, 4746127250, 0403569777, 8840956917, 7273546 #### [facility] (DEFAULT) [address] [place] [address] 30898 Lymph Abs# 2.0 x10 Normal 1.3-2.9 [facility] Comment on above: Performed By: #### 1 5806694, 24876902, 9365737, 6797108178, 81505844, 1567337, 5105771711, 7561767221, 5751733631, 5141223 #### [facility] (DEFAULT) [address] [place] [address] 89581 Lymphocytes/100 WBC (Bld) 35 % Normal 14-48 [facility] Comment on above: Performed By: #### 1 2531642, 81584515, 8686846, 5270607271, 16697549, 6988450, 4021360090, 2488284855, 5799553704, 5109484 #### [facility] (DEFAULT) [address] [address] Ashe Abs# 0.5 x10 Normal 0.0-0.8 [facility] Comment on above: Performed By: #### 1 9574933, 95602706, 7188859, 2368694594, 67663295, 6619802, 5106344862, 4904562622, 7573998087, 9769276 #### [facility] (DEFAULT) [address] [place] [address] Neut Abs# 3.2 x10 Normal 1.5-9.2 [facility] Comment on above: Performed By: #### 1 4432443, 36936640, 0681980, 1802728763, 06166993, 5139476, 9020966173, 6152187502, 9149569036, 1356831 #### [facility] (DEFAULT) [address] [place] [address] Neutrophils/100 WBC (Bld) 55 % Normal 44-88 [facility] Comment on above: Performed By: #### 1 5621897, 00258421, 7929615, 3381829217, 55486203, 2832424, 4307465558, 1630960888, 8925122410, 1828020 #### [facility] (DEFAULT) [address] [address] ABORhon 03-09-2022 ABO and Rh group Nom (Bld) Hx Check: Not Found Anti-A: 4+ Anti-B: 0 Anti-D: 4+ DCon: 0 A1: mf+ B: 4+ ABORh Interp: A POS Invalid Interpretation Code [facility] Comment on above: Performed By: #### 1 6340191, 13742133, 9301137, 1685999790, 23408593, 8881289, 0413018279, 7906218720, 8884967415, 7743586 #### [facility] (DEFAULT) [address] [address] ABORh Retypeon 03-09-2022 ABO and Rh group Nom (Bld) Ordered by Discern. Anti-A: 4+ Anti-B: 0 Anti-D: 4+ DCon: 0 A1: mf+ B: 4+ ABORh Retype: A POS Invalid Interpretation Code [facility] Comment on above: Performed By: #### 1 3933035, 60362973, 8656774, 6694565230, 23359035, 4669077, 6184568632, 7990758483, 7717105057, 4932319 ####[facility] (DEFAULT)[address] [place] [address] CBC w/ Auto Diffon Erythrocyte distribution width (RBC) [Ratio] 13.3 % Normal 11.5-15.0 [facility] Comment on above: Performed By: #### 1 9162397, 77149519, 2072210, 2699822733, 65330606, 9910691, 6406083981, 0588947141, 4154366380, 6377589 #### [facility] (DEFAULT) [address] [address] Hematocrit (Bld) [Volume fraction] 43.5 % High 33.7-40.4 [facility] Comment on above: Performed By: #### 1 3899885, 78622810, 5696641, 2485506332, 22956466, 6923978, 0232682426, 0856390402, 6003075048, 3140187 #### [facility] (DEFAULT) [address] [place] [address] 65191 Hemoglobin (Bld) [Mass/Vol] 14.1 g/dL Normal 11.3-15.9 [facility] Comment on above: Performed By: #### 1 6906347, 02901235, 5002318, 3585420496, 75651711, 3726230, 4324001153, 6033860161, 6881960193, 4295138 #### [facility] (DEFAULT) [address] [place] [address] 14009 Instr WBC 5.7 x10 Invalid Interpretation Code [facility] Comment on above: Performed By: #### 1 5637717, 62446918, 0688592, 5447764599, 11988810, 5735692, 5632162228, 5302971628, 3539188238, 5692252 #### [facility] (DEFAULT) [address] [place] [address] 17289 Man Diff? Auto Normal [facility] Comment on above: Performed By: #### 1 8120179, 66950761, 5893372, 3588607050, 17301537, 6867719, 7844039174, 6830292674, 3151273802, 1791100 #### [facility] (DEFAULT) [address] [place] [address] 35403 MCH (RBC) [Entitic mass] 28 pg Normal 24-34 [facility] Comment on above: Performed By: #### 1 9468792, 07184415, 9054513, 0263878863, 51604961, 1122322, 8822735959, 0583850041, 8495985481, 9390002 #### [facility] (DEFAULT) [address] [place] [address] 58297 MCHC (RBC) [Mass/Vol] 32 g/dL Normal 26-37 [facility] Comment on above: Performed By: #### 1 4337781, 27323062, 3101675, 6750130535, 09847117, 2139160, 7268350588, 7895029453, 2747930462, 0223550 #### [facility] (DEFAULT) [address] [place] [address] 84125 MCV (RBC) [Entitic vol] 86 fL Normal 81-100 [facility] Comment on above: Performed By: #### 1 1047180, 07299756, 8887864, 7323902717, 82239097, 2519433, 1563681487, 8123732519, 5252489623, 6804852 #### [facility] (DEFAULT) [address] [place] [address] 53585 Platelet 324 x10 Normal 138-427 [facility] Comment on above: Performed By: #### 1 8705611, 88056558, 2518011, 8813769176, 22051079, 7769738, 4205782530, 4694870132, 7972488820, 3283610 #### [facility] (DEFAULT) [address] [place] [address] 19121 Platelet mean volume (Bld) [Entitic vol] 9.8 fL Normal 6.3-10.2 [facility] Comment on above: Performed By: #### 1 0381266, 99844674, 9603345, 1394331829, 27072290, 3389476, 7216270979, 1822727339, 2544147392, 5715607 #### [facility] (DEFAULT) [address] [place] [address] 58014 RBC 5.07 x10 Normal 3.70-5.30 [facility] Comment on above: Performed By: #### 1 3641238, 19097521, 2793390, 5501052842, 47605380, 7530832, 2319468273, 6801357070, 6246172432, 5929353 #### [facility] (DEFAULT) [address] [place] [address] 09157 WBC 5.7 x10 Normal 3.5-10.5 [facility] Comment on above: Performed By: #### 1 8377456, 21591157, 6665338, 6250873367, 46135003, 7723676, 4190621498, 5769828503, 4336162836, 7143306 #### [facility] (DEFAULT) [address] [place] [address] 41510 CMP Standardon 03-09-2022 eGFR Non AA >60 Invalid Interpretation Code [facility] Comment on above: Performed By: #### 1 1903374, 37813793, 4026106, 1807210094, 02597604, 5527632, 0842370059, 5020755596, 0013108010, 6664677 #### [facility] (DEFAULT) [address] [place] [address] 85694 eGFR AA >60 Invalid Interpretation Code [facility] Comment on above: Result Comment: Layout Artist susie Kidney disease could be indicated at eGFRs of less than 60 ml/min/1.73m2. Kidney Failure is indicated at less than 15 ml/min/1.73m2 Performed By: #### 1 4201546, 04121960, 1625323, 2477133883, 09735452, 7862142, 7268129502, 3181290810, 3736162983, 2898700 #### [facility] (DEFAULT) [address] [place] [address] 84349 Albumin [Mass/Vol] 4.5 g/dL Normal 3.5-5.0 [facility] Comment on above: Performed By: #### 1 0713696, 40163799, 8489053, 2567297815, 35524023, 6767144, 7552961878, 2051192588, 9803779642, 0592306 #### [facility] (DEFAULT) [address] [place] [address] 45679 Albumin/Globulin [Mass ratio] 1.2 {ratio} Low 1.4-2.6 [facility] Comment on above: Performed By: #### 1 3577831, 19583552, 4726063, 9576079012, 14420872, 6851727, 1341207017, 0126150746, 7039067966, 9964891 #### [facility] (DEFAULT) [address] [place] [address] 22180 Alk Phos 52 IU/L Normal 32-91 [facility] Comment on above: Performed By: #### 1 1623416, 93828963, 9117216, 4458335268, 59688654, 3641301, 3182665403, 6277502835, 0005353482, 7333359 #### [facility] (DEFAULT) [address] [place] [address] 77606 ALT [Catalytic activity/Vol] 37.0 U/L Normal 14.0-54.0 [facility] Comment on above: Performed By: #### 1 2555428, 70579373, 8426149, 2609616049, 05045738, 2181842, 2067404005, 6743001408, 7127370559, 1731876 #### [facility] (DEFAULT) [address] [place] [address] 43818 Anion gap [Moles/Vol] 18.0 mmol/L Normal 5.0-19.0 [facility] Comment on above: Performed By: #### 1 9118477, 68480746, 1327166, 4740135437, 17109717, 6900188, 6321508197, 3551992265, 6547490951, 9599105 #### [facility] (DEFAULT) [address] [place] [address] 39997 AST [Catalytic activity/Vol] 29 U/L Normal 15-41 [facility] Comment on above: Performed By: #### 1 7820739, 97088260, 6128804, 6723433065, 94285948, 6627586, 1026284101, 3558673812, 9974211540, 8805073 #### [facility] (DEFAULT) [address] [place] [address] 92701 Bili Total 0.7 mg/dL Normal 0.3-1.2 [facility] Comment on above: Performed By: #### 1 6556322, 46735941, 1360008, 0443988043, 35169426, 8319367, 6735779906, 7098426894, 1118040982, 2536066 #### [facility] (DEFAULT) [address] [place] [address] 25366 Calcium [Mass/Vol] 9.4 mg/dL Normal 8.9-10.3 [facility] Comment on above: Performed By: #### 1 2386931, 86809091, 1880117, 5739617504, 66739017, 8603657, 4871367501, 4860702812, 9268812534, 2246710 #### [facility] (DEFAULT) [address] [place] [address] 37981 Chloride [Moles/Vol] 100 mmol/L Low 101-111 [facility] Comment on above: Performed By: #### 1 1625091, 07019901, 1953655, 7753993000, 85523441, 9826381, 2729493716, 6861581728, 1960359327, 8652962 #### [facility] (DEFAULT) [address] [place] [address] 67459 CO2 [Moles/Vol] 24 mmol/L Normal 21-32 [facility] Comment on above: Performed By: #### 1 6985787, 18207519, 2719037, 2743331252, 64058431, 1430122, 5117745417, 4246320401, 6908762086, 9904160 #### [facility] (DEFAULT) [address] [place] [address] 20110 Creatinine [Mass/Vol] 0.75 mg/dL Normal 0.60-1.30 [facility] Comment on above: Performed By: #### 1 4948946, 77406912, 3019064, 2966536037, 60189088, 4841211, 2781700020, 3092283945, 0531188246, 6265122 #### [facility] (DEFAULT) [address] [place] [address] 52953 Globulin (S) [Mass/Vol] 3.9 g/dL Normal 1.5-4.3 [facility] Comment on above: Performed By: #### 1 2960850, 27157467, 7181459, 6669430549, 06691407, 9046126, 0755857173, 2940027775, 4076978691, 5192385 #### [facility] (DEFAULT) [address] [place] [address] 71237 Glucose [Mass/Vol] 98.0 mg/dL Normal 74.0-118.0 [facility] Comment on above: Performed By: #### 1 5705651, 52042464, 1669383, 4865626905, 34478639, 0969971, 7234141727, 1982500234, 1821097055, 3477730 #### [facility] (DEFAULT) [address] [place] [address] 45444 Osmolality 274 mOsm/L Invalid Interpretation Code [facility] Comment on above: Performed By: #### 1 7827662, 70467655, 9928974, 5676868793, 62522271, 3847861, 6549544429, 9756547710, 8450032077, 3212435 #### [facility] (DEFAULT) [address] [place] [address] 03089 Potassium [Moles/Vol] 3.5 mmol/L Low 3.6-5.1 [facility] Comment on above: Performed By: #### 1 8669824, 80845367, 8648202, 9157136158, 23775500, 8027237, 3549926684, 5368608046, 7572361766, 4120059 #### [facility] (DEFAULT) [address] [place] [address] 59840 Protein [Mass/Vol] 8.4 g/dL High 6.5-8.1 [facility] Comment on above: Performed By: #### 1 3471600, 64896681, 1846632, 1772974604, 28761461, 5276901, 7273671307, 1307488358, 4826842204, 4571953 #### [facility] (DEFAULT) [address] [place] [address] 85331 Sodium [Moles/Vol] 138.0 mmol/L Normal 136.0-144.[address] [facility] Comment on above: Performed By: #### 1 7400800, 35772343, 7039113, 1414380539, 77881607, 7480528, 3244999272, 7191393716, 2502872668, 3104350 #### [facility] (DEFAULT) [address] [place] [address] 52943 Urea nitrogen [Mass/Vol] 7 mg/dL Low 8-26 [facility] Comment on above: Performed By: #### 1 0848920, 42716507, 6585327, 4667121993, 11902358, 8467690, 3834401789, 2393828670, 5933754073, 5684905 #### [facility] (DEFAULT) [address] [place] [address] 36914 Urea nitrogen/Creatinine [Mass ratio] 9.0 mg/mg Normal 4.6-16.2 [facility] Comment on above: Performed By: #### 1 2891295, 16140363, 6153369, 8982556833, 35466354, 1099025, 8000419821, 8965936048, 8353696405, 7134544 #### [facility] (DEFAULT) [address] [place] [address] 92783 ED Clinical Summaryon 2021 ED Clinical Summary [facility] - Emergency Department [address] [place] [address] 57371 ED Clinical Summary PERSON INFORMATION Name: DIANE JOYCE Age: 26 Years Sex: FEMALE : 1995 MRN: Acct#: Visit Reason: Vaginal bleeding - < 20 wks ; BLEEDING, Arrival: 03/09/2022 15:56:59 Discharge: 03/09/2022 18:28:00 LOS: 000 02:32 Check In: 03/09/2022 15:56:59 Checkout:03/09/2022 18:28:00 Address: [address] [place] [address] PCP: Provider, None PROVIDER INFORMATION Provider Role Assigned Unassigned Debbi LAMB, Mikayla ED Nurse 03/09/2022 16:01:31 SILVERIO HANDLEY ED PA 03/09/2022 16:01:35 VITALS INFORMATION Vital Sign Triage Latest Temperature Tympanic Temperature Temporal Artery Pulse Rate 102 bpm 95 bpm O2 Sat 100 % 100 % Respiratory Rate 18 br/min 18 br/min Blood Pressure /107 mmHg /107 mmHg MEDICAL INFORMATION Medications Given: Medication Dose Route potassium bicarbonate 25 mEq PO Allergy Information: No Known Medication Allergies PHYSICIAN DOCUMENTATION Patient: DIANE JOYCE Age: 26 years Sex: FEMALE : 1995 Associated Diagnoses: Vaginal bleeding; Elevated blood pressure reading; Threatened miscarriage in early ; First trimester Author: SILVERIO HANDLEY Basic Information Time seen: Date & time 03/09/2022 16:01:00. History source: Patient. Arrival mode: Private vehicle, walking. History of Present Illness Patient is a 26-year-old female presents emergency department with complaint of bleeding with . Patient states she is a 2 para 1, just recently found out she was thinks she may be 4 to 6 weeks but she is unsure of last menstrual cycle. Patient reports yesterday she had very mild cramping in her lower abdomen and noticed some spotting bleeding vaginal spotting bleeding. She states that she is still having mild spotting bleeding denies any abdominal pains or cramping today. She denies any other issues such as trauma to the abdomen, strenuous activity brings on, chest pains, shortness of breath, fevers, issues with bowels or bladder. States that she follows with dish washer in [place] [address] [place], contacted his office and they recommended coming to emergency department to be evaluated. Review of Systems Constitutional symptoms: No fever, Skin symptoms: No rash, Eye symptoms: Vision unchanged. ENMT symptoms: No sore throat, no nasal congestion. Respiratory symptoms: No shortness of breath, no cough. Cardiovascular symptoms: No chest pain, no tachycardia. Gastrointestinal symptoms: Abdominal pain, mild, suprapubic, acute, cramping, no nausea, no vomiting. Genitourinary symptoms: Vaginal bleeding, No dysuria, Musculoskeletal symptoms: No back pain, Neurologic symptoms: No headache, no dizziness. Health Status Allergies: No active allergies have been recorded.. Past Medical/ Family/ Social History Medical history: No active or resolved past medical history items have been selected or recorded.. Social history: Social & Psychosocial Habits No Data Available . Physical Examination CONST: -Well-developed well-nourished. -Acute distress: No -Vitals: reviewed. SKIN: -Gross abnormalities: No EYES: -EOM intact, SARINA: -Sclera conjunctiva: Unremarkable. NECK: -Supple (qahm-qm-bojsg): non-tender. CARD: -Rate and rhythm: Regular -Edema: No -Calf pain: No RESP: -Respiratory effort and chest excursion with respirations: Normal -Breath sounds equal bilaterally: Clear -Wheezes: No -Rales: No BACK: -Signs of pain with movement: No ABD: -Distended: No -Bruits: No -Bowel sounds: Normal. -Deep palpation: Non-tender, soft, no guarding or rebound tenderness EXT: Gross appearance and use of all four extremities: Unremarkable NEURO: -Patient: alert -Gross CN or Focal Neuro deficits: No -Oriented to: person, place and time. -Appearance and judgment: appropriate. Medical Decision Making 26-year-old female presents emergency department complaint of vaginal bleeding in early . Patient states she is anywhere between 4 to 6 weeks recently found out, started having vaginal spotting bleeding yesterday continued today. Admits to mild cramping yesterday for a very short period of time denies any abdominal pain department today. Patient's blood work shows potassium of 3.5, sodium of 138, normal liver enzymes, normal white blood cell count hemoglobin and platelets, patient's blood type is positive, quantitative hCG is 7.1 which is quite low but still within the realm of 4 to 6 weeks. Patient's ultrasound of her pelvis shows no intrauterine or ectopic identified, recommend correlation with serial quantitative beta hCG levels, no acute findings as interpreted by the radiologist. Discussed this with the patient recommended close follow-up with her dish washer and outpatient beta hCG. In the meantime no strenuous ac (more content not included)... Normal [facility] ED Note - Physicianon 2021 ED Note - Physician Patient: DIANE JOYCE Age: 26 years Sex: FEMALE : 1995 Associated Diagnoses: Vaginal bleeding; Elevated blood pressure reading; Threatened miscarriage in early ; First trimester Author: SILVERIO HANDLEY Basic Information Time seen: Date & time 03/09/2022 16:01:00. History source: Patient. Arrival mode: Private vehicle, walking. History of Present Illness Patient is a 26-year-old female presents emergency department with complaint of bleeding with . Patient states she is a 2 para 1, just recently found out she was thinks she may be 4 to 6 weeks but she is unsure of last menstrual cycle. Patient reports yesterday she had very mild cramping in her lower abdomen and noticed some spotting bleeding vaginal spotting bleeding. She states that she is still having mild spotting bleeding denies any abdominal pains or cramping today. She denies any other issues such as trauma to the abdomen, strenuous activity brings on, chest pains, shortness of breath, fevers, issues with bowels or bladder. States that she follows with dish washer in [place] [address] [place], contacted his office and they recommended coming to emergency department to be evaluated. Review of Systems Constitutional symptoms: No fever, Skin symptoms: No rash, Eye symptoms: Vision unchanged. ENMT symptoms: No sore throat, no nasal congestion. Respiratory symptoms: No shortness of breath, no cough. Cardiovascular symptoms: No chest pain, no tachycardia. Gastrointestinal symptoms: Abdominal pain, mild, suprapubic, acute, cramping, no nausea, no vomiting. Genitourinary symptoms: Vaginal bleeding, No dysuria, Musculoskeletal symptoms: No back pain, Neurologic symptoms: No headache, no dizziness. Health Status Allergies: No active allergies have been recorded.. Past Medical/ Family/ Social History Medical history: No active or resolved past medical history items have been selected or recorded.. Social history: Social & Psychosocial Habits No Data Available . Physical Examination CONST: -Well-developed well-nourished. -Acute distress: No -Vitals: reviewed. SKIN: -Gross abnormalities: No EYES: -EOM intact, SARINA: -Sclera conjunctiva: Unremarkable. NECK: -Supple (plgi-vy-eguep): non-tender. CARD: -Rate and rhythm: Regular -Edema: No -Calf pain: No RESP: -Respiratory effort and chest excursion with respirations: Normal -Breath sounds equal bilaterally: Clear -Wheezes: No -Rales: No BACK: -Signs of pain with movement: No ABD: -Distended: No -Bruits: No -Bowel sounds: Normal. -Deep palpation: Non-tender, soft, no guarding or rebound tenderness EXT: Gross appearance and use of all four extremities: Unremarkable NEURO: -Patient: alert -Gross CN or Focal Neuro deficits: No -Oriented to: person, place and time. -Appearance and judgment: appropriate. Medical Decision Making 26-year-old female presents emergency department complaint of vaginal bleeding in early . Patient states she is anywhere between 4 to 6 weeks recently found out, started having vaginal spotting bleeding yesterday continued today. Admits to mild cramping yesterday for a very short period of time denies any abdominal pain department today. Patient's blood work shows potassium of 3.5, sodium of 138, normal liver enzymes, normal white blood cell count hemoglobin and platelets, patient's blood type is positive, quantitative hCG is 7.1 which is quite low but still within the realm of 4 to 6 weeks. Patient's ultrasound of her pelvis shows no intrauterine or ectopic identified, recommend correlation with serial quantitative beta hCG levels, no acute findings as interpreted by the radiologist. Discussed this with the patient recommended close follow-up with her dish washer and outpatient beta hCG. In the meantime no strenuous activity, sexual activity if having any worsening issues I recommended he return to the emergency department or going directly to dish washer. Patient indicated she understood was in agreement. Patient denies any abdominal pains, smiling, indicates she will follow-up closely. Patient's urinalysis shows 40 ketones, she is given IV fluids in the emergency department, negative nitrites, trace leukocyte esterase with 3-5 white blood cells, many squamous epithelial cells. Patient denies any pain with urination, indicated to the patient that we would hold off antibiotics at this time. Urinalysis also negative for protein, negative for glucose. Patient discussed reviewed with supervising physician was in agreement plan of care and discharge of patient. Results review: Lab results : Lab Flowsheet 03/09/2022 16:15 EDT Sodium Level 138.0 mmol/L Potassium Level 3.5 mmol/L LOW Chloride Level 100 mmol/L LOW CO2 24 mmol/L Anion Gap 18.0 mmol/L Glucose Level 98.0 mg/dL BUN 7 mg/dL LOW Creatinine Level 0.75 mg/dL BUN/Creat Ratio 9.0 eGFR AA >60 (more content not included)... Normal [facility] ED Note-Nursingon 03-09-2022 Beta HCG ( test) Ql (U) Patient arrives with c/o vaginal bleeding during . States she took a at home test a week ago and estimates being 5 to 6 weeks along. Patient has some mild cramping yesterday 11/07 at has since went away and light vaginal bleeding today. This is the patients second , 1 live . Normal [facility] ED Patient Summaryon 022 ED Patient Summary [facility] - Emergency Department [address] [place] [id number] PATIENT DISCHARGE INSTRUCTIONS Patient Information Name: DIANE JOYCE Age: 26 Years Date of : 1995 [facility]: [id number] Reason For Visit: Vaginal bleeding - < 20 wks ; BLEEDING, Arrival Time: 03/09/2022 15:56:59 Primary Care Physician: Provider, None Attending Physician: Adrian Rosales MD Comment: Visit Diagnosis: Diagnoses This Visit Elevated blood pressure reading (R03.0) First trimester (Z34.91) Threatened miscarriage in early (O20.0) Vaginal bleeding (N93.9) Vaginal bleeding - < 20 wks ([id number]) Prescription Information: If you have been given a prescription for narcotics, seek immediate medical attention if you have any difficulty breathing or any sudden status changes such as confusion and sleepiness. If you or anyone you know is experiencing suicidal thoughts, mental health, alcohol and/or drug addiction problems; contact the [facility] 21/05 Crisis Hotline -text 4hope to [phone]. If you received any narcotics, sedation, or any other medication that causes drowsiness for the next 24 hours, unless otherwise directed: ? Do not drive a car. ? Do not operate machinery such as power tools, lawn mowers, drills, sewing machines, or stoves ? Avoid alcoholic beverages and drugs for allergies, nerves, or sleep ? Do not make important personal or business decisions or sign any legal documents With: Address: When: Follow-up with your dish washer for reevaluation next few days. Within 1 to 2 days Comments: Follow-up with dish washer for reevaluation next few days for reevaluation and outpatient quantitative hCG. Return immediately for any worsening issues such as increasing abdominal pains, increasing vaginal bleeding, fevers, or any other problems. With: Address: When: Stephanie Padilla Within 3 to 5 days Comments: Place Change Roof Bolter Medication Information: The exam and treatment you received today in the [facility] Emergency Department were for an urgent problem and are not intended as complete care. It is important for you to follow up with a doctor, nurse practitioner, or physician?s budget assistant for ongoing care. If your symptoms become worse or you do not improve as expected and you are unable to reach your usual health care provider, you should return to the Emergency Department, we are available 24 hours a day. For those patients who have received Radiology results, the interpretation of your X-ray as given to you by our Emergency Department physician is only a preliminary report. The Radiologist will review your films and if there is a change in the diagnosis you will be notified by phone. Please make sure you have provided a working phone number so we can reach you if necessary. In the event that you had a lab culture while you were a patient in the Emergency Department, you will be notified by phone if there is a need to change your antibiotic. Please make sure you have provided a working phone number so we can reach you if necessary. [facility] Emergency Department has provided you with a complete list of medications post discharge. Please inform your physician assistant primary care/provider of your visit and for further instruction on these medications. Any specific questions regarding your chronic medications and dosages should be discussed with your primary care physician(s) and/or pharmacist. Visit Information Allergies: Substance Reaction Symptoms Type Comments No Known Medication Allergies Drug Vital Signs: Vitals and Measurements this Visit (last charted value for your 03/09/2022 visit) Vital Signs This Visit Temperature Temporal: 36.7 DegC Peripheral Pulse Rate: 95 bpm Respiratory Rate: 18 br/min Systolic Blood Pressure: 149 mmHg Diastolic Blood Pressure: 91 mmHg SpO2: 100 % Oxygen Therapy: Room air Measurements This Visit Height/Length Dosin.560 cm Height/Length Estimated: 162.560 cm Weight Dosin.670 kg Weight Estimated: 115.670 kg Problems List: Problem Onset Comments No Problems found Patient Education Hypertension, Adult High blood pressure (hypertension) is when the force of blood pumping through the arteries is too strong. The arteries are the blood vessels that carry blood from the heart throughout the body. Hypertension forces the heart to work harder to pump blood and may cause arteries to become narrow or stiff. Untreated or uncontrolled hypertension can cause a heart attack, heart failure, a stroke, kidney disease, and other problems. A blood pressure reading consists of a higher number over a lower number. Ideally, your blood pressure should be below 120/80. The first ( top ) number is called the systolic pressure. It is a measure of the pressure in your arteries as your heart beats. The sec (more content not included)... Normal [facility] Extra Greenon 03-09-2022 Tube Collected Yes Invalid Interpretation Code [facility] Comment on above: Performed By: #### 1 [id number], [id number], 0571274, [id number], 33934206, 2463834, 3342901703, [id number], 1394619133, 0286195 #### [facility] (DEFAULT) [address] [place] [address] PT/PTTon 03-09-2022 INR Coag (PPP) [Relative time] 0.95 {INR} Normal 0.91-1.11 [facility] Comment on above: Performed By: #### 1 [id number], 57596253, 5712332, 3667453763, 73969204, 4386675, 4937732938, 4318459382, 8161589558, 5408027 #### [facility] (DEFAULT) [address] [place] [address]105 PT 10.3 second(s) Normal 9.7-11.8 [facility] Comment on above: Performed By: #### 1 [id number], 08552184, 9906587, 7628555651, 16979700, 2707141, 3612933408, 6370898542, 2305720223, 6077185 #### [facility] (DEFAULT) [address] [place] [address]29 PTT 34 second(s) Normal 25-35 [facility] Comment on above: Performed By: #### 1 1374878, 01146040, 7247505, 7034739822, 36915247, 4740420, 0869760315, 9347972852, 1270394630, 7893277 #### [facility] (DEFAULT) [address] [place] [address]29 RhIG.on 03-09-2022 RhIG. No. Vials RhI RhIG Candidate?: No Date to Give: [id number] RhIG Status: RhIG Ready Normal [facility] Comment on above: Performed By: #### 1 [id number], 80375295, 5598653, 4158615884, 54768620, 2569567, 5433890094, 7573173868, 6098946483, 8831114 ####[facility] (DEFAULT)[address] [place] [address] UA Fimhe2uy 03-09-2022 UA Am[address]. 1+ [facility] Comment on above: Order Comment: Urina lysis Microscopic order added on by Discern Expert Rules system. Performed By: #### 5 [id number], 2712742, [id number] ####[facility] (DEFAULT)[address] [place] [address] [address]A Bacteria 2+ [facility] Comment on above: Order Comment: Urina lysis Microscopic order added on by Discern Expert Rules system. Performed By: #### 5 1912141, 5047826, [id number] ####[facility] (DEFAULT)[address] [place] [address] UA Mucous 3+ [facility] Comment on above: Order Comment: Urina lysis Microscopic order added on by Discern Expert Rules system. Performed By: #### 5 7536593, 1536066, [id number] ####[facility] (DEFAULT)[address] [place] [address] UA RBC >100 [facility] Comment on above: Order Comment: Urina lysis Microscopic order added on by Discern Expert Rules system. Performed By: #### 5 [id number], 5470838, [id number] ####[facility] (DEFAULT)[address] [place] [address] [address] E[address] [facility] Comment on above: Order Comment: Urina lysis Microscopic order added on by Discern Expert Rules system. Result Comment: DMITRY VERGARA RN IN ER. RUN UNINALYSIS AND CULTURE ON THIS SPECIMEN. NO RECOLLECT. Performed By: #### 5 [id number], 1008652, [id number] ####[facility] (DEFAULT)[address] [place] [address] UA WBC 3-5 [facility] Comment on above: Order Comment: Urina lysis Microscopic order added on by Discern Expert Rules system. Performed By: #### 5 4784877, 8597155, [id number] ####[facility] (DEFAULT)[address] [place] [address] UA w Culture if Ind Standard on 03-09-[address] [facility] Comment on above: Performed By: #### 1 6802353, 36359244, 8013111, 6167573005, 14343115, 8123629, 8452451505, 5615101946, 3561447152, 3935374 #### [facility] (DEFAULT) [address] [place] [address] Color (U) Yellow [facility] Comment on above: Performed By: #### 1 1971556, 17399211, 5711200, 5975633031, 56543332, 4433825, 7631951754, 1255532396, 3853169542, 4380600 #### [facility] (DEFAULT) [address] [address] Culture? Indicated Invalid Interpretation Code [facility] Comment on above: Result Comment: Resu lt created by rule GL_MAGR_ADD_UA_CULT Result created by rule GL_MAGR_ADD_UA_CULT Result created by rule GL_MAGR_ADD_UA_CULT1 Result created by rule GL_MAGR_ADD_UA_CULT Performed By: #### 1 6331120, 51978733, 6619474, 4630465429, 94231731, 8984551, 9472753269, 8292056157, 4252445775, 3729823 #### [facility] (DEFAULT) [address] [place] [address] Glucose (U) [Mass/Vol] Negative [facility] Comment on above: Performed By: #### 1 6138213, 88943827, 6245596, 8873880874, 73137858, 4963183, 6627758457, 5659367906, 6404815859, 0484846 #### [facility] (DEFAULT) [address] [place] [address]856 Ketones Ql (U) 40 [facility] Comment on above: Performed By: #### 1 7111296, 75457743, 5779150, 0567262339, 78406151, 5289166, 7015156682, 5503509732, 7606425625, 1633624 #### [facility] (DEFAULT) [address] [place] [address] Micro? Indicated Invalid Interpretation Code [facility] Comment on above: Result Comment: Resu lt created by rule GL_MAGR_ADD_UA_MICRO Performed By: #### 1 0215415, 39125511, 7612990, 3744730512, 92219029, 9454792, 1418369073, 3816376815, 1623264086, 5064788 #### [facility] (DEFAULT) [address] [place] [address] UA Bilirubin Negative Normal [facility] Comment on above: Performed By: #### 1 7074376, 28451141, 5297362, 3852716020, 67445070, 5698445, 3558256687, 6711142159, 4847139259, 2881185 #### [facility] (DEFAULT) [address] [place] [address] UA Blood LARGE Abnormal NEGATIVE [facility] Comment on above: Performed By: #### 1 4826701, 19261133, 3495877, 4292065466, 04556078, 1955120, 8372632335, 7830129669, 5368120972, 7779700 #### [facility] (DEFAULT) [address] [place] [address]32 UA Clarity SL CLOUDY Abnormal CLEAR [facility] Comment on above: Performed By: #### 1 3589286, 36807122, 0686137, 2765121946, 99662321, 5080798, 5494083646, 0416707647, 9800933783, 4190795 #### [facility] (DEFAULT) [address] [place] [address]202 UA Leuk Est TRACE Abnormal NEGATIVE [facility] Comment on above: Performed By: #### 1 8641445, 55143443, 4510235, 1974778859, 39317615, 6465621, 3569501333, 8640510267, 9854961589, 2115408 #### [facility] (DEFAULT) [address] [place] [address] UA Nitrite Negative Normal NEGATIVE [facility] Comment on above: Performed By: #### 1 1292815, 06545145, 5638901, 8657882095, 54315400, 9980305, 8281080584, 1670452940, 0682249256, 4600732 #### [facility] (DEFAULT) [address] [place] [address]57 UA pH 6.5 Normal 5-8 [facility] Comment on above: Performed By: #### 1 3185221, 92881696, 4974615, 8152351526, 01874224, 3390405, 2021914319, 7577345842, 4157743576, 2591429 #### [facility] (DEFAULT) [address] [place] [address] 59571 UA Protein Negative Normal NEGATIVE [facility] Comment on above: Performed By: #### 1 1709886, 13492851, 4776127, 2970288783, 91114148, 8502410, 1182502395, 6427009487, 7932382217, 8773734 #### [facility] (DEFAULT) [address] [place] [address] 15841 UA Spec Grav 1.015 Normal 1.001-1.035 [facility] Comment on above: Performed By: #### 1 2008285, 82787910, 4356890, 5489652970, 68625683, 0081199, 6872225946, 7929702322, 9063709894, 8934842 #### [facility] (DEFAULT) [address] [place] [address] UA Urobilinogen 0.2 mg/dL Normal 0.2-1.0 [facility] Comment on above: Performed By: #### 1 7340192, 72354532, 7289715, 0153187187, 18640024, 8666696, 0417682029, 1882252773, 7627584060, 7970420 #### [facility] (DEFAULT) [address] [place] [address] Urine Source Clean Catch [facility] Comment on above: Performed By: #### 1 8752254, 50642903, 0319344, 9073601534, 50249272, 2115118, 3470981843, 5060294863, 4970472704, 7417960 #### [facility] (DEFAULT) [address] [place] [address] US 1st Trimesteron 03-09-2022 US 1st Trimester EXAM: US 1st Trimester HISTORY: Trimester , bleeding, cramping COMPARISON: None. TECHNIQUE: Transabdominal and endovaginal ultrasound of the pelvis with redmond-scale and color Doppler interrogation. FINDINGS: With transabdominal imaging, the uterus measures 7.63 cm in length by 3.93 cm AP by 5.06 cm transverse. With endovaginal imaging, the endometrial stripe thickness measured 2.2 mm. No intrauterine gestational sac was identified. Both ovaries are normal in size and echogenicity. The right ovary measured 3.60 x 3.07 x 2.84 cm and has a normal intrinsic arterial waveform with a resistive index of 0.51. The left ovary measured 3.92 x 1.95 x 2.26 cm and also has a normal intrinsic arterial waveform with a resistive of 0.51. No free fluid is seen within the pelvis. IMPRESSION: 1. No intrauterine or ectopic identified. Recommend correlation with serial quantitative beta-hCG levels. 2. No acute findings. Final Dictated by: Sebastian Guzman Dictated DT/TM: 03/09/22 6:03 Signed (Electronic Signature): Sebastian Guzman 03/09/22 6:10 pm Technologist: PM [facility] US Transvaginalon 03-09-2022 US Transvaginal EXAM: US 1st Trimester HISTORY: Trimester , bleeding, cramping COMPARISON: None. TECHNIQUE: Transabdominal and endovaginal ultrasound of the pelvis with redmond-scale and color Doppler interrogation. FINDINGS: With transabdominal imaging, the uterus measures 7.63 cm in length by 3.93 cm AP by 5.06 cm transverse. With endovaginal imaging, the endometrial stripe thickness measured 2.2 mm. No intrauterine gestational sac was identified. Both ovaries are normal in size and echogenicity. The right ovary measured 3.60 x 3.07 x 2.84 cm and has a normal intrinsic arterial waveform with a resistive index of 0.51. The left ovary measured 3.92 x 1.95 x 2.26 cm and also has a normal intrinsic arterial waveform with a resistive of 0.51. No free fluid is seen within the pelvis. IMPRESSION: 1. No intrauterine or ectopic identified. Recommend correlation with serial quantitative beta-hCG levels. 2. No acute findings. Final Dictated by: Sebastian Guzman Dictated DT/TM: 03/09/22 6:03 Signed (Electronic Signature): Sebastian Guzman 03/09/22 6:10 pm Technologist: PM Normal [facility] hCG Quantitativeon hCG Quantitative 7.1 mIU/mL High 0.0-0.6 [facility] Comment on above: Result Comment: Post -Menopausal Reference Range is: 0.1-11.6 mIU/mL Performed By: #### 1 [id number], 49968462, 8254862, 2009346747, 89590183, 0705567, 6882805030, 7941719208, 9286325414, 7054345 #### [facility] (DEFAULT) [address] [place] [address] Vital Signs Date Time Vital Sign Value Performing Clinician Facility 12-13-2023 15:00-0500 Body mass index (BMI) [Ratio] 46.69 kg/m2 [facility] Nurse [facility] 12-13-2023 15:00-0500 Body weight 123.38 kg [facility] 12-13-2023 15:00-0500 Diastolic blood pressure 78 mm[Hg] [facility] 12-13-2023 15:00-0500 Systolic blood pressure 128 mm[Hg] [facility] 05-15-2023 18:30-0400 Body height 161.29 cm Linsey Witt Other [facility] Other 05-15-2023 18:30-0400 Body mass index (BMI) [Ratio] 43.41 kg/m2 Linsey Witt Other [facility] Other 05-15-2023 18:30-0400 Body temperature 99.2 [degF] Linsey Eduar Other [facility] Other 05-15-2023 18:30-0400 Body weight 112.95 kg Linsey Eduar Other [facility] Other 05-15-2023 18:30-0400 Respiratory rate 18 /min Linsey Witt Other [facility] Other 05-15-2023 18:30-0400 SaO2% (BldA) [Mass fraction] 99 % Linsey Witt Other [facility] Other 05-09-2023 11:00-0400 Body height 161.29 cm Gissel Santana Other [facility] Other 05-09-2023 11:00-0400 Body mass index (BMI) [Ratio] 43.59 kg/m2 Gissel Santana Other [facility] Other 05-09-2023 11:00-0400 Body weight 113.4 kg Gissel Santana Other [facility] [employer] Other 05-09-2023 11:00-0400 Diastolic blood pressure 83 mm[Hg] Gissel Santana Other [facility] [employer] Other 05-09-2023 11:00-0400 Systolic blood pressure 119 mm[Hg] Gissel Santana Other [facility] [employer] Other 04-12-2023 09:00-0400 Body height 161.29 cm Gissel Santana Other [facility] Other 04-12-2023 09:00-0400 Body mass index (BMI) [Ratio] 43.59 kg/m2 Gissel Santana Other [facility] [employer] Other 04-12-2023 09:00-0400 Body weight 113.4 kg Gissel Esther Other [facility] [employer] Other 04-12-2023 09:00-0400 Diastolic blood pressure 88 mm[Hg] Gisselfarzana Santana Other [facility] [employer] Other 04-12-2023 09:00-0400 Systolic blood pressure 129 mm[Hg] Gissel Esther Other [facility] [employer] Other 10-11-2022 02:06-0500 Body weight 111.[address] ESTELLA MIN . [facility] Comment on above: Performed By: #### AFPMAT #### [facility] [address] [place] [address] Dr. Alexsander Dickinson Encounters Encounter Date Encounter Type Care Provider Facility Start: 12-13-2023 End: 12-13-2023 ambulatory Not Available Start: 12-13-2023 End: 12-13-2023 Office outpatient visit 5 minutes [facility] Nurse [facility] Comment on above: [place]: 9w0d Start: 11-06-2023 End: 11-06-2023 ambulatory Gissel Santana Other [facility] [employer] Other Start: 11-06-2023 Encounter by donald Santana [facility] Start: 05-22-2023 End: 05-22-2023 ambulatory Olive Howard Other [facility] [employer] Other Start: 05-22-2023 Telephone encounter Olive Howard [facility] Start: 05-15-2023 End: 05-15-2023 ambulatory Linsey Witt Facility:[facility] Start: 05-15-2023 End: 05-15-2023 Departed Referred TERESA Witt Work Phone: [facility] [place] Work Phone: Start: 05-15-2023 End: 05-15-2023 ambulatory TERESA Witt Work Phone: [facility] Work Phone: Start: 05-15-2023 Office outpatient vi sit 25 minutes Linsey Witt [facility] Start: 05-09-2023 End: 05-09-2023 ambulatory Gissel Santana Other [employer] Other Start: 05-09-2023 Office outpatient vi sit 15 minutes Gissel Santana [facility] Start: 04-12-2023 End: 04-12-2023 ambulatory Gissel Santana Other [facility] [employer] Other Start: 04-12-2023 Encounter for genera l adult medical examination without abnormal findings Gissel Santana [facility] Start: 04-12-2023 Periodic preventive med est patient 18-39 yrs Gissel Santana [facility] Start: 02-15-[address] ESTELLA MIN . Facili ty:[facility] Start: 02-08-[address] GISSEL SANTANA Facil ity:[facility] Start: 02-07-[address] GISSEL SANTANA Facil ity:[facility] Start: 02-01-2023 End: 02-04-2023 Evaluation and management of inpatient DR GISSEL SANTANA Facility:[facility] Start: 01-31-2023 End: 01-31-[address] GISSEL SANTANA Facility:[facility] Start: 01-29-2023 End: 01-29-[address] GISSEL SANTANA Facility:[facility] Start: 01-25-2023 End: 01-25-[address] GISSEL SANTANA Facility:[facility] Start: 01-22-2023 End: 01-22-[address] GISSEL SANTANA Facility:[facility] Start: 01-18-2023 End: 01-18-[address] GISSEL SANTANA Facility:[facility] Start: 01-15-2023 End: 01-15-[address] GISSEL SANTANA Facility:[facility] Start: 01-11-2023 End: 01-11-[address] ESTELLA MIN . Facility:[facility] Start: 01-08-2023 End: 01-08-[address] GISSEL SANTANA Facility:[facility] Start: 12-01-2022 End: 12-02-[address] ESTELLA MIN . Facility:[facility] Start: 11-14-2022 End: 11-14-[address] ESTELLA MIN . Facility:[facility] Start: 11-14-2022 End: 11-15-[address] ESTELLA MIN . Facility:[facility] Start: 10-19-2022 End: 10-20-[address] ESTELLA MIN . Facility:[facility] Start: 10-17-2022 End: 10-18-[address] GISSEL SANTANA Facility:[facility] Start: 10-09-2022 End: 10-10-[address] GISSEL SANTANA Facility:[facility] Start: 09-29-2022 End: 09-30-[address] GISSEL SANTANA Facility:[facility] Start: 09-20-2022 End: 09-21-[address] GISSEL SANTANA Facility:[facility] Start: 09-14-[address] GISSEL SANTANA Facil ity:[facility] Start: 08-16-2022 End: 08-17-[address] GISSEL SANTANA Facility:[facility] Start: 07-27-2022 End: 07-28-[address] GISSEL SANTANA Facility:[facility] Start: 07-20-2022 End: 07-20-[address] GISSEL SANTANA Facility:[facility] Start: 07-13-2022 End: 07-14-[address] GISSEL SANTANA Facility:[facility] Procedures Date Procedure Procedure Detail Performing Clinician Start: 12-13-2023 Urnls dip stick/tabl et rgnt non-auto w/o micrscp Estella Min DO Work Phone: Start: 02-01-2023 Extraction of Produc ts of Conception, Low Cervical, Open Approach DR ESTELLA MIN . Throat culture Linsey Witt Other Plan of Treatment Date Care Activity Detail Author Start: 01-14-2024 End: 01-14-2024 Patient encounter procedure 01/14/2024 8:30 AM EDT Routine [facility] [address] [id number] Estella Min, DO [address] [place] [address] [facility] Start: 12-13-2023 End: 12-13-2024 ABO/Rh ABO/Rh Lab Routine Missed menses Expected: 12/13/2023 (Approximate), Expires: 12/13/2024 [facility] Comment on above: Expected: 12/13/2023 (Approximate), Expires: 12/13/2024 Start: 12-13-2023 End: 12-13-2024 Blood type and Indirect antibody screen panel - Blood Type and screen Lab Routine Missed menses Expected: 12/13/2023 (Approximate), Expires: 12/13/2024 [facility] Work Phone: Comment on above: Expected: 12/13/2023 (Approximate), Expires: 12/13/2024 Start: 12-13-2023 End: 12-13-2024 Thyroid panel with tsh Thyroid panel with tsh Lab Routine Missed menses Expected: 12/13/2023 (Approximate), Expires: 12/13/2024 [facility] Comment on above: Expected: 12/13/2023 (Approximate), Expires: 12/13/2024 Start: 12-13-2023 End: 12-13-2024 US Pelvis transvaginal US OB transvaginal Imaging Routine Missed menses Expected: 12/13/2023 (Approximate), Expires: 12/13/2024 [facility] Comment on above: Expected: 12/13/2023 (Approximate), Expires: 12/13/2024 Start: 05-15-2023 Throat culture Throat Culture [facility] Bacteria identified in Urine by Culture Urine culture Microbiology Routine Missed menses Ordered: 12/13/2023 [facility] Comment on above: Ordered: 12/13/2023 CBC W Auto Different ial panel - Blood CBC and differential Lab Routine Missed menses Ordered: 12/13/2023 [facility] Comment on above: Ordered: 12/13/2023 Hemoglobin A1c/Hemoglobin.total in Blood Hemoglobin A1c Lab Routine Missed menses Ordered: 12/13/2023 [facility] Comment on above: Ordered: 12/13/2023 Hepatitis B virus surface Ag [Presence] in Serum or Plasma by Immunoassay Hepatitis B surface antigen Lab Routine Missed menses Ordered: 12/13/2023 [facility] Comment on above: Ordered: 12/13/2023 Hepatitis C virus Ab [Presence] in Serum or Plasma by Immunoassay Hepatitis C antibody Lab Routine Missed menses Ordered: 12/13/2023 [facility] Comment on above: Ordered: 12/13/2023 HIV-1/HIV-2 antigen/antibody combination immunoassay HIV-1 and HIV-2 antibodies Lab Routine Missed menses Ordered: 12/13/2023 [facility] Comment on above: Ordered: 12/13/2023 Reagin Ab [Presence] in Serum by RPR RPR Lab Routine Missed menses Ordered: 12/13/2023 [facility] Comment on above: Ordered: 12/13/2023 Rubella antibody, IgG Rubella an tibody, IgG Lab Routine Missed menses Ordered: 12/13/2023 [facility] Comment on above: Ordered: 12/13/2023 Payers Date Payer Category Payer Unknown BCBS BCBS xxxxxx [id number] 2020-Present [phone] [address] [place] [address] [id number] 1994 Unknown [id number] 2.16.840.1.841749.3.579.2.593 1994 Unknown [id number] 2.16.840.1.174578.3.579.2.593 1994 Unknown [id number] 2.16.840.1.931027.3.579.2.593 1994 Unknown [id number] 2.16.840.1.690861.3.579.2.593 1994 Unknown [id number] 2.16.840.1.808594.3.579.2.593 1994 Unknown [id number] 2.16.840.1.896475.3.579.2.593 1994 Unknown [id number] 2.16.840.1.265551.3.579.2.593 1994 Unknown [id number] 2.16.840.1.905393.3.579.2.593 1994 Unknown [id number] 2.16.840.1.490354.3.579.2.593 1994 Unknown [id number] 2.16.840.1.159545.3.579.2.593 1994 Unknown [id number] 2.16.840.1.341101.3.579.2.593 1994 Unknown [id number] 2.16.840.1.036964.3.579.2.593 1994 Unknown [id number] 2.16.840.1.655081.3.579.2.593 1994 Unknown [id number] 2.16.840.1.605277.3.579.2.593 1994 Unknown [id number] 2.16.840.1.173711.3.579.2.593 1994 Unknown [id number] 2.16.840.1.178421.3.579.2.593 1994 Unknown [id number] 2.16.840.1.957634.3.579.2.593 1994 Unknown [id number] 2.16.840.1.985190.3.579.2.593 1994 Unknown [id number] 2.16.840.1.732095.3.579.2.593 1994 Unknown [id number] 2.16.840.1.119806.3.579.2.593 1994 Unknown [id number] 2.16.840.1.235511.3.579.2.593 1994 Unknown [id number] 2.16.840.1.665996.3.579.2.593 1994 Unknown [id number] 2.16.840.1.526840.3.579.2.593 1994 Unknown [id number] 2.16.840.1.422273.3.579.2.593 1994 Unknown [id number] 2.16.840.1.485800.3.579.2.1259 1959 Self-pay 1959 Unknown [id number] Unknown [id number] 2.16.840.1.797486.3.579.2.593 Unknown [id number] 2.16.840.1.428544.3.579.2.531 Social History Date Type Detail Facility Unknown if ever smoked [facility] [employer] Other Start: 03-12-2023 Sex Assigned At [facility] [employer] Other Start: 1995 Sex Assigned At Female F [facility] Start: 03-12-2023 Tobacco smoking status NHIS Never smoked tobacco [facility] Start: 03-12-2023 Tobacco use and exposure Smokeless tobacco non-user [facility] Start: 12-13-2023 Alcohol intake Lifetime non-d иван (finding) [facility] Start: 03-12-2023 History of Social function [facility] Start: 10-25-2023 [facility] Start: 1995 Sex Assigned At Not on file [facility] Clinical Notes 03-09-2022 to 12-13-2023 Meenakshi Rosenthal MA - 12/13/2023 2:30 PM EST Note Date & Type Note Facility 12-13-2023 History of Presen t illness Narrative Reason for Appointment: Patient ID: Diane Joyce is a 28 y.o. female who presents for Amenorrhea Patient presents today for a Nurse OB Intake appointment. Patient is 9w0d with a Estimated Date of Delivery: 07/17/24 OB History Para Term AB Living 5 1 0 1 1 2 SAB IAB Ectopic Multiple Live Births 0 0 0 0 1 # Outcome Date GA Lbr Francis/2nd Weight Sex Delivery Anes PTL Lv 5 Current 4 02/01/23 7 lb 5 oz M CS-LTranv KURT 3 AB 02/2022 2 04/02/19 CS-Classical 1 Current Medications: has a current medication list which includes the following prescription(s): sertraline, ondansetron odt, and plus/iron. Medical History: Active Ambulatory Problems Diagnosis Date Noted No Active Ambulatory Problems Resolved Ambulatory Problems Diagnosis Date Noted No Resolved Ambulatory Problems No Additional Past Medical History Family History Problem Relation Name Age of Onset Diabetes Father Diabetes Paternal Grandmother Social History Tobacco Use Smoking status: Never Smokeless tobacco: Never Substance Use Topics Alcohol use: Never Drug use: Never Past Surgical History: Procedure Laterality Date SECTION, CLASSIC 04/02/2019 SECTION, LOW TRANSVERSE 02/01/2023 PAP SMEAR 10/09/2018 abnormal ASCUS HPV- No Known Allergies Vitals: Estimated body mass index is 46.69 kg/m as calculated from the following: Height as of 04/02/23: 5' 4 . Weight as of this encounter: 272 lb. BP: 128/78 Patient's last menstrual period was 10/11/2023. Assessment/Plan Diagnoses and all orders for this visit: Missed menses - Type and screen; Future - ABO/Rh; Future - CBC and differential - Hemoglobin A1c - RPR - Rubella antibody, IgG - Hepatitis B surface antigen - Hepatitis C antibody - HIV-1 and HIV-2 antibodies - Urine culture - US OB transvaginal; Future - POCT , urine manually resulted - POCT urinalysis dipstick manually resulted - Thyroid panel with tsh; Future - ondansetron ODT (Zofran-ODT) 4 MG disintegrating tablet; Take 1 tablet (4 mg) by mouth every 6 (six) hours if needed for nausea or vomiting - Vit-Fe Fumarate-FA ( Plus/Iron) 27-1 MG tablet; Take 1 tablet by mouth in the morning. Nurse Note: Patient presents today for first OB visit. Patients history has been reviewed in great detail including any potential risks. Patient signed consent forms and patient desires testing in both trimesters. Patient currently has no complaints and has been advised to drink 6-8 glasses of water a day, eat no raw or undercooked meat, and stay away from [facility]. Patient has also been advised to not change litter boxes and eat 6 small meals a day. Patient has been consulted regarding the do's and don'ts of . Patient was given labs and gender/genetics. Pt has a history of preeclampsia, GDM, and history of toxemia. All questions and concerns were answered. Follow Up: Patient is to return in 4 weeks for routine OB appointment. Follow Up: Patient is to have labs drawn at directed and return to office for initial OB appointment with provider. Patient may call office as needed with any concerns or questions. Nurse Visit Completed by: Meenakshi Rosenthal MA documented in this encounter [facility] 05-15-2023 Evaluation note Encounter Date Diagnosis Assessment Notes Apr, Sore throat (ICD-10 - J02.9) Advised patient that strep test was negative but will treat for strep today based on physical exam. Will treat with antibiotic, reviewed allergies and recent antibiotic use. Instructed patient to take steroid and antibiotic as prescribed, with food, complete entire course even if feeling better. Will call with results in 2-5 days, at time of results, treatment plan may change. Supportive care as directed. Push fluids and rest, Tylenol or Motrin as needed for fever or discomfort. Patient's symptoms should improve in the next 48 hours, eval by PCP or UC if symptoms have not improved with treatment. Discussed in depth warning symptoms that require immediate eval. Change out tooth brush after being on antibiotic for 2-3 days. Patient's parent verbalizes understanding and is agreeable to treatment plan. [facility] [employer] Other 07-12-2023 Evaluation note* Encounter Date Diagnosis Assessment Notes Treatment Notes Treatment Clinical Notes Apr, Anxiety disorder, unspecified (ICD-10 - F41.9) Pt states that she, and her , agree that she is doing better on the medication. Continues to have stress, but is dealing more appropriately. Would like to continue this med and this dose. f/u6 months, sooner if needed. [facility] [employer] Other 06-15-2023 Evaluation note* Encounter Date Diagnosis Assessment Notes Treatment Notes Treatment Clinical Notes Mar, Well adult exam (ICD-10 - Z00.00) We have discussed the necessity of following up with PCP regularly as well as specialists, as needed. Discussed F/U with dentistry and optometry at least yearly. Discussed all preventative measures/ cancer screenings as applicable to this patient. Emphasized the importance of a reduced fat, low carb diet to promote heart health and controlled blood sugars. Reviewed social history and ensured patient is safe within the home today. Pt denies any abuse of alcohol, nicotine, caffeine or recreational drugs. I have ensured patient is of stable mental and physical health today. We have discussed appropriate F/U schedule as well as blood work and vaccinations that apply. All questions answered and patient is sent home pleased, without concerns. Mar, Anxiety disorder, unspecified (ICD-10 - F41.9) Mar, Depression, unspecified (ICD-10 - F32.A) Discussed medications, stress relief and help for overwhelm. followup in 1 month [facility] [employer] Other 05-12-2022 NoteEducation Materials Cardiovascular Hypertension, Adult High blood pressure (hypertension) is when the force of blood pumping through the arteries is too strong. The arteries are the blood vessels that carry blood from the heart throughout the body. Hypertension forces the heart to work harder to pump blood and may cause arteries to become narrow or stiff. Untreated or uncontrolled hypertension can cause a heart attack, heart failure, a stroke, kidneydisease, and other problems. A blood pressure reading consists of a higher number over a lower number. Ideally, your blood pressure should be below 120/80. The first ( top ) number is called the systolic pressure. It is a measure of the pressure in your arteries as your heart beats. The second ( bottom ) number is called the diastolic pressure. It is a measure of the pressure in your arteries as the heart relaxes. What are the causes? The exact cause of this condition is not known. There are some conditions that result in or are related to high blood pressure. What increases the risk? Some risk factors for high blood pressure are under your control. The following factors may make you more likely to develop this condition: ? Smoking. ? Having type 2 diabetes mellitus, high cholesterol, or both. ? Not getting enough exercise or physical activity. ? Being overweight. ? Having too much fat, sugar, calories, or salt (sodium) in your diet. ? Drinking too much alcohol. Some risk factors for high blood pressure may be difficult or impossible to change. Some of these factors include: ? Having chronic kidney disease. ? Having a family history of high blood pressure. ? Age. Risk increases with age. ? Race. You may be at higher risk if you are . ? Gender. Men are at higher risk than women before age 45. After age 65, women are at higher risk than men. ? Having obstructive sleep apnea. ? Stress. What are the signs or symptoms? High blood pressure may not cause symptoms. Very high blood pressure (hypertensive crisis) may cause: ? Headache. ? Anxiety. ? Shortness of breath. ? Nosebleed. ? Nausea and vomiting. ? Vision changes. ? Severe chest pain. ? Seizures. How is this diagnosed? This condition is diagnosed by measuring your blood pressure while you are seated, with your arm resting on a flat surface, your legs uncrossed, and your feet flat on the floor. The cuff of the bloodpressure monitor will be placed directly against the skin of your upper arm at the level of your heart. It should be measured at least twice using the same arm. Certain conditions can cause a difference in blood pressure between your right and left arms. Certain factors can cause blood pressure readings to be lower or higher than normal for a short period of time: ? When your blood pressure is higher when you are in a health care provider's office than when you are at home, this is called white coat hypertension. Most people with this condition do not need medicines. ? When your blood pressure is higher at home than when you are in a health care provider's office, this is called masked hypertension. Most people with this condition may need medicines to control blood pressure. If you have a high blood pressure reading during one visit or you have normal blood pressure with other risk factors, you may be asked to: ? Return on a different day to have your blood pressure checked again. ? Monitor your blood pressure at home for 1 week or longer. If you are diagnosed with hypertension, you may have other blood or imaging tests to help your health care provider understand your overall risk for other conditions. How is this treated? This condition is treated by making healthy lifestyle changes, such as eating healthy foods, exercising more, and reducing your alcohol intake. Your health care provider may prescribe medicine if lifestyle changes are not enough to get your blood pressure under control, and if: ? Your systolic blood pressure is above 130. ? Your diastolic blood pressure is above 80. Your personal target blood pressure may vary depending on your medical conditions, your age, and other factors. Follow these instructions at home: Eating and drinking ? Eat a diet that is high in fiber and potassium, and low in sodium, added sugar, and fat. An example eating plan is called the DASH (Dietary Approaches to Stop Hypertension) diet. To eat this way: ? Eat plenty of fresh fruits and vegetables. Try to fill one half of your plate at each meal with fruits and vegetables. ? Eat whole grains, such as whole-wheat pasta, brown rice, or whole-grain bread. Fill about one fourth of your plate with whole grains. ? Eat or drink low-fat dairy products, such as skim milk or low-fat yogurt. ? Avoid fatty cuts of meat, processed or cured meats, and poultry with skin. Fill about one fourth of your plate with lean proteins, such as fish, chicken without skin, beans, e (more content not included)...[facility]Evaluation noteNo assessment information availableWilson Health Work Phone: Evaluation noteNo InformationN[facility]War[facility] [employer] Other Evaluation note* Diagnosis Missed menses documented in this encounter [facility] Healthcare[facility] general Narrative - Reported* Type Description Date Surgical History C-sect 2019 Surgical History C-sect 2022 [facility] [employer] Other History general Narrative - Reported* Type Description Date Medical History Anxiety disorder, unspecified Surgical History C-sect 2019 Surgical History C-sect 2022 Hospitalization History SEE SURGICAL HX [facility] [employer] Other History general Narrative - Reported* Type Description Date Medical History Anxiety disorder, unspecified Medical History Gestational diabetes Surgical History C-sect 2019 Surgical History C-sect 2022 Hospitalization History SEE SURGICAL HX [facility] [employer] Other Summary Purpose Family History No Family History Records FoundNo Family History Records FoundNo Family History Records FoundNo Family History Records Found Advance Directives No Advanced Directives Records FoundNo Advanced Directives Records FoundNo Advanced Directives Records FoundNo Advanced Directives Records Found Additional Source Comments INFORMATION SOURCE (unrecogn ized section and content) DATE CREATED AUTHOR 03/18/2022 [facility] DATE CREATED AUTHOR AUTHOR'S ORGANIZ ATION 02/15/2023 [facility] DATE CREATED AUTHOR AUTHOR'S ORGANIZ ATION 05/24/2023 [facility] DATE CREATED AUTHOR AUTHOR'S ORGANIZ ATION 12/15/2023 [facility] EPIC REASON FOR VISIT (unrecogniz ed section and content) Reason Comments Amenorrhea Care Teams (unrecognized sec tion and content) Team Status: Inactive Member Role Status Dates Linsey Witt APRN Attending Provider Active [employer] 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 This clinical summary was aggregated from multiple sources. Caution should be exercised in using it in the provision of clinical care. This summary normalizes information from multiple sources, and as a consequence, information in this document may materially change the coding, format and clinical context of patient data. In addition, data may be omitted in some cases. CLINICAL DECISIONS SHOULD BE BASED ON THE PRIMARY CLINICAL RECORDS. [employer] provides no warranty or guarantee of the accuracy or completeness of information in this document.
[2023-12-20 13:05] LABS: Basophils Absolute Auto 0.1 10^3/uL (0.0-0.1); Basophils Percent Auto 0.6 % (0.2-2.0); Eosinophils Absolute Auto 0.1 10^3/uL (0.0-0.7); Eosinophils Percent Auto 1.2 % (0.9-7.0); Hematocrit 38.1 % (36.0-48.0); Hemoglobin 11.9 g/dL (12.0-16.0); Immature Granulocytes Abs Auto 0.02 10^3/uL (0.00-0.03); Immature Granulocytes Pct Auto 0.2 % (0.0-0.5); Lymphocytes Absolute Auto 1.6 10^3/uL (1.2-3.8); Mean Corpuscular HGB Conc 31.2 g/dL (29.9-35.2); Mean Corpuscular Hemoglobin 26.6 pg (26.7-34.0); Mean Corpuscular Volume 85.2 fL (81.0-99.0); Mean Platelet Volume 10.1 fL (9.5-13.5); Monocytes Absolute Auto 0.4 10^3/uL (0.3-0.8); Monocytes Percent Auto 5.4 % (1.7-12.0); Neutrophils Absolute Auto 5.9 10^3/uL (1.4-6.5); Neutrophils Percent Auto 72.6 % (43.0-75.0); Platelet Count 314 10^3/uL (150-450); Red Blood Count 4.47 10^6/uL (4.20-5.40); Red Cell Distribution Width 13.5 % (11.0-15.0); White Blood Count 8.1 10^3/uL (4.0-11.0)
[2023-12-20 13:24] LABS: Thyroid Stimulating Hormone 0.476 uIU/mL (0.358-3.740)
[2023-12-20 14:41] LABS: Free T4 1.04 ng/dL (0.76-1.46)
[2023-12-20 15:19] LABS: Estimated Average Glucose 117 mg/dL; Glycohemoglobin A1C 5.7 % (4.5-6.2)
[2023-12-21 07:09] LABS: HBsAg Screen Negative (Negative); HCV Ab Non Reactive (Non Reactive)
[2023-12-21 08:12] LABS: HIV Ab/p24 Ag Screen Non Reactive (Non Reactive); Rubella Antibodies, IgG 9.57 index (Immune >0.99)
[2023-12-21 11:10] LABS: Rapid Plasma Reagin, Quant Non Reactive titer (NonRea<1:1)
== END 2023-12-20 12:11 | disposition home or self-care (01) ==
LOC: LAB 12:11
PROVIDERS: Visit Provider Obstetrics & Gynecology
DX: N92.6 Irregular menstruation, unspecified (principal); Z36.0 Encounter for antenatal screening for chromosomal anomalies
CPT/HCPCS: 36415; 83036; 84439; 84443; 85025; 86592; 86762; 86803; 86850; 86900; 86901; 87086; 87340; 87389

== ENCOUNTER 2024-02-11 10:53 | Outpatient (OUT) | payer BC, SELFPAY ==
--- OUTSIDE RECORDS SUMMARY | 2024-02-11 11:18 | XMS_ITS | CCD ---
Author Organization [facility] Team Providers Care Library Assistant Name Role Phone MECHELLE ., DR SORIA [...] KARASIK ., DR MONTENEGRO Admitting Unavailabl e KARRENEK [...] KARASIK ., DR MONTENEGRO Attending Unavailabl e KARASIK ., DR MONTENEGRO Admitting Unavailjudith e SANTANA, DR GISSEL Teresa Primary Care Unavailable KARASIK ., DR MONTENEGRO Admitting Unavailabl e KARASIK ., DR MONTENEGRO Attending Unavailabl e HOY ., DR SHOEMAKER Consulting Unavailable KARASIK ., DR MONTENEGRO Consulting Unavailabl e MECHELLE ., DR SORIA Consulting Unavailable ZIEBER, DR DEE Green Consulting Unavailable LEO, LISSETT Consulting Unavailable YADIRA, YOEL Consulting Unavailable SANTANA, DR GISSEL Teresa Primary Care Unavailable MECHELLE ., DR SORIA Attending Unavailable MECHELLE ., DR SORIA Admitting Unavailable MECHELLE ., DR SORIA Attending Unavailable MECHELLE ., DR SORIA Admitting Unavailable [place], Sebastian Consulting Unavailable SANTANA, DR GISSEL Teresa Primary Care Unavailable MECHELLE ., DR SORIA Consulting Unavailable SANTANA, DR GISSEL Teresa Primary Care Unavailable MECHELLE ., DR SORIA Admitting Unavailable MECHELLE ., DR SORIA Attending Unavailable Gissel Santana Unavailable TERESA Witt Attending Provider [phone] Olive Howard Unavailable Linsey Witt Attending Unavailable Linsey Witt Admitting Unavailable NO FAMILY, PHYSICIAN Primary Care Unavailable Linsey Witt Unavailable Gissel Santana MD Primary Care Provider ESTELLA MIN Attending Unavailable Medications Current Medications Medication Drug Class(es) Dates [...] Interpretation and review of laboratory results Abnormal [facility] Preg Test, Ur Positive [facility] Urinalysis macro (dipstick) panel (U)on 12-13-2023 Bilirubin, UA Negative Negative - 4(70) +++ mg/dL [facility] Blood, UA Negative Negative - 50 Sal/mcL [facility] Clarity, UA Clear [facility] re Color, UA Yellow [facility] Glucose, UA Negative Negative - 1999(110) ++++ mg/dL [facility] Interpretation and review of laboratory results Abnormal [facility] re Ketones, UA Positive Negative - 160(16) ++++ mg/dL [facility] Leukocytes, UA Negative Negative - 500+++ Lizzy/mcL [facility] Nitrite, UA Negative Negative - Positive [facility] pH, UA 7.0 5 - 9 [facility] Protein, UA Positive Negative - 1999(20) ++++ mg/dL [facility] Spec Grav, UA 1.030 1 - 1.03 [facility] Urobilinogen, UA 0.2 0.2 - 12 mg/dL [facility] Quick Strepon 05-15-2023 S. pyogenes Org specific cx Ql (Throat) Negative [facility] Other Quick Strep [facility] Other Throat Cultureon 05-15-2023 Throat culture Heavy Normal Respiratory John 2 Days PERFORMED BY: [address] [id number] PATHOLOGIST [employer] ARACELI HAYWOOD M.D. Normal [facility] Comment on above: Performed By: #### C UT #### [address] GROUP B STREP CULTUREon 04-1 0-2023 S. agalactiae Ag Ql (Unsp spec) Isolate [...] F Tetracycline <=0.25 S F Normal [facility] Comment on above: Performed By: #### A FPMAT #### [facility] [address] [place] [address] Dr. Alexsander Dickinson CBC AUTO DIFFon 02-02-2023 BASO # 0.0 103/ul Normal 0.0-0.1 [facility] Comment on above: Performed By: #### C BC #### [facility] [address] [place] [address] Dr. Alexsander Dickinson Basophils/100 WBC (Bld) 0.2 % Normal 0.2-2.0 [facility] Comment on above: Performed By: #### C BC #### [facility] [address] [place] [address] Dr. Alexsander Dickinson EO # 0.0 103/ul Normal 0.0-0.7 [facility] Comment on above: Performed By: #### C BC #### [facility] [address] [place] [address] Dr. Alexsander Dickinson Eosinophils/100 WBC (Bld) 0.0 % Critically low 0.9-7.0 [facility] Comment on above: Performed By: #### C BC #### [facility] [address] [place] [address] Dr. Alexsander Dickinson Erythrocyte distribution width (RBC) [Ratio] 12.5 % Normal 11.0-15.0 [facility] Comment on above: Performed By: #### C BC #### [facility] [address] [place] [address] Dr. Alexsander Dickinson Hematocrit (Bld) [Volume fraction] 32.9 % Critically low 36.0-48.0 [facility] Comment on above: Performed By: #### C BC #### [facility] [address] [address] [address] Alexsander Dickinson Hemoglobin (Bld) [Mass/Vol] 10.7 g/dL Critically low 12.0-16.0 [facility] Comment on above: Performed By: #### C BC #### [facility] [address] [address] [address] Alexsander Dickinson IG # 0.12 10e3/ul Critically high 0.00-0.03 [facility] Comment on above: Performed By: #### C BC #### [facility] [address] [place] [address] Dr. Alexsander Dickinson IG % 0.7 % Critically high 0.0-0.5 [facility] Comment on above: Performed By: #### C BC #### [facility] [address] [address] [address] Alexsander Dickinson LYMPH # 1.1 103/ul Critically low 1.2-3.8 [facility] Comment on above: Performed By: #### C BC #### [facility] [address] [place] [address] Dr. Alexsander Dickinson Lymphocytes/100 WBC (Bld) 6.4 % Critically low 20.5-60.0 [facility] Comment on above: Performed By: #### C BC #### [facility] [address] [address] [address] Alexsander Dickinson MANUAL DIFF REQ NO Normal [facility] Comment on above: Performed By: #### C BC #### [facility] [address] [address] [address] Alexsander Dickinson MCH (RBC) [Entitic mass] 26.1 pg Critically low 26.7-34.0 [facility] Comment on above: Performed By: #### C BC #### [facility] [address] [place] [address] Dr. Alexsander Dickinson MCHC (RBC) [Mass/Vol] 32.5 g/dL Normal 29.9-35.2 [facility] Comment on above: Performed By: #### C BC #### [facility] [address] [place] [address] Dr. Alexsander Dickinson MCV (RBC) [Entitic vol] 80.2 fL Critically low 81.0-99.0 [facility] Comment on above: Performed By: #### C BC #### [facility] [address] [place] [address] Dr. Alexsander Dickinson MONO # 0.4 103/ul Normal 0.3-0.8 [facility] Comment on above: Performed By: #### C BC #### [facility] [address] [place] [address] Dr. Alexsander Dickinson Monocytes/100 WBC (Bld) 2.1 % Normal 1.7-12.0 [facility] Comment on above: Performed By: #### C BC #### [facility] [address] [place] [address] Dr. Alexsander Dickinson NEUT # 15.5 103/ul Critically high 1.4-6.5 [facility] Comment on above: Performed By: #### C BC #### [facility] [address] [place] [address] Dr. Alexsander Dickinson Neutrophils/100 WBC (Bld) 90.6 % Critically high 43.0-75.0 [facility] Comment on above: Performed By: #### C BC #### [facility] [address] [place] [address] Dr. Alexsander Dickinson Platelet mean volume (Bld) [Entitic vol] 10.7 fL Normal 9.5-13.5 [facility] Comment on above: Performed By: #### C BC #### [facility] [address] [place] [address] Dr. Alexsander Dickinson PLT 310 103/ul Normal 150-450 [facility] Comment on above: Performed By: #### C BC #### [facility] [address] [place] [address] Dr. Alexsander Dickinson RBC 4.10 106/ul Critically low 4.20-5.40 [facility] Comment on above: Performed By: #### C BC #### [facility] [address] [place] [address] Dr. Alexsander Dickinson WBC 17.1 103/ul Critically high 4.0-11.0 [facility] Comment on above: Performed By: #### C BC #### [facility] [address] [place] [address] Dr. Alexsander Dickinson CBC AUTO DIFFon 02-01-2023 BASO # 0.0 103/ul Normal 0.0-0.1 [facility] Comment on above: Performed By: #### A 1C #### [facility] [address] [place] [address] Dr. Alexsander Dickinson Basophils/100 WBC (Bld) 0.2 % Normal 0.2-2.0 [facility] Comment on above: Performed By: #### A 1C #### [facility] [address] [place] [address] Dr. Alexsnader Dickinson EO # 0.0 103/ul Normal 0.0-0.7 [facility] Comment on above: Performed By: #### A 1C #### [facility] [address] [place] [address] Dr. Alexsander Dickinson Eosinophils/100 WBC (Bld) 0.4 % Critically low 0.9-7.0 [facility] Comment on above: Performed By: #### A 1C #### [facility] [address] [place] [address] Dr. Alexsander Dickinson Erythrocyte distribution width (RBC) [Ratio] 12.9 % Normal 11.0-15.0 [facility] Comment on above: Performed By: #### A 1C #### [facility] [address] [place] [address] Dr. Alexsander Dickinson Hematocrit (Bld) [Volume fraction] 34.2 % Critically low 36.0-48.0 [facility] Comment on above: Performed By: #### A 1C #### [facility] [address] [place] [address] Dr. Alexsander Dickinson Hemoglobin (Bld) [Mass/Vol] 11.4 g/dL Critically low 12.0-16.0 [facility] Comment on above: Performed By: #### A 1C #### [facility] [address] [place] [address] Dr. Alexsander Dickinson IG # 0.04 10e3/ul Critically high 0.00-0.03 [facility] Comment on above: Performed By: #### A 1C #### [facility] [address] [place] [address] Dr. Alexsander Dickinson IG % 0.5 % Normal 0.0-0.5 [facility] Comment on above: Performed By: #### A 1C #### [facility] [address] [place] [address] Dr. Alexsander Dickinson LYMPH # 2.1 103/ul Normal 1.2-3.8 [facility] Comment on above: Performed By: #### A 1C #### [facility] [address] [place] [address] Dr. Alexsander Dickinson Lymphocytes/100 WBC (Bld) 23.9 % Normal 20.5-60.0 [facility] Comment on above: Performed By: #### A 1C #### [facility] [address] [place] [address] Dr. Alexsander Dickinson MANUAL DIFF REQ NO Normal [facility] Comment on above: Performed By: #### A 1C #### [facility] [address] [place] [address] Dr. Alexsander Dickinson MCH (RBC) [Entitic mass] 27.0 pg Normal 26.7-34.0 [facility] Comment on above: Performed By: #### A 1C #### [facility] [address] [place] [address] Dr. Alexsander Dickinson MCHC (RBC) [Mass/Vol] 33.3 g/dL Normal 29.9-35.2 [facility] Comment on above: Performed By: #### A 1C #### [facility] [address] [place] [address] Dr. Alexsander Dickinson MCV (RBC) [Entitic vol] 81.0 fL Normal 81.0-99.0 [facility] Comment on above: Performed By: #### A 1C #### [facility] [address] [place] [address] Dr. Alexsander Dickinson MONO # 0.5 103/ul Normal 0.3-0.8 [facility] Comment on above: Performed By: #### A 1C #### [facility] [address] [place] [address] Dr. Alexsander Dickinson Monocytes/100 WBC (Bld) 6.0 % Normal 1.7-12.0 [facility] Comment on above: Performed By: #### A 1C #### [facility] [address] [place] [address] Dr. Alexsander Dickinson NEUT # 5.9 103/ul Normal 1.4-6.5 [facility] Comment on above: Performed By: #### A 1C #### [facility] [address] [place] [address] Dr. Alexsander Dickinson Neutrophils/100 WBC (Bld) 69.0 % Normal 43.0-75.0 [facility] Comment on above: Performed By: #### A 1C #### [facility] [address] [place] [address] Dr. Alexsander Dickinson Platelet mean volume (Bld) [Entitic vol] 10.5 fL Normal 9.5-13.5 [facility] Comment on above: Performed By: #### A 1C #### [facility] [address] [place] [address] Dr. Alexsander Dickinson PLT 275 103/ul Normal 150-450 [facility] Comment on above: Performed By: #### A 1C #### [facility] [address] [place] [address] Dr. Alexsander Dickinson RBC 4.22 106/ul Normal 4.20-5.40 [facility] Comment on above: Performed By: #### A 1C #### [facility] [address] [place] [address] Dr. Alexsander Dickinson WBC 8.6 103/ul Normal 4.0-11.0 [facility] Comment on above: Performed By: #### A 1C #### [facility] [address] [address] [address] Alexsander Dickinson LDHon 02-01-2023 LDH 124 U/L Normal 81-234 [facility] Comment on above: Performed By: #### C MP, LDH, URIC #### [facility] [address] [address] [address] Alexsander Dickinson POINT OF CARE GLUCOSEon Glucose [Mass/Vol] 98 mg/dL Normal 74-106 [facility] Comment on above: Performed By: #### A 1C #### [facility] [address] [place] [address] Dr. Alexsander Dickinson PROF 14(COMP METB)on 023 Albumin [Mass/Vol] 2.5 g/dL Critically low 3.4-5.0 [facility] Comment on above: Performed By: #### C MP, LDH, URIC #### [facility] [address] [place] [address] Dr. Alexsander Dickinson Albumin/Globulin [Mass ratio] 0.6 {ratio} Normal [facility] Comment on above: Performed By: #### C MP, LDH, URIC #### [facility] [address] [place] [address] Dr. Alexsander Dickinson ALP [Catalytic activity/Vol] 138 U/L Critically high 46-116 [facility] Comment on above: Performed By: #### C MP, LDH, URIC #### [facility] [address] [place] [address] Dr. Alexsander Dickinson ALT [Catalytic activity/Vol] 15 U/L Normal 14-59 [facility] Comment on above: Performed By: #### C MP, LDH, URIC #### [facility] [address] [place] [address] Dr. Alexsander Dickinson Anion gap [Moles/Vol] 14.5 mmol/L Normal [facility] Comment on above: Performed By: #### C MP, LDH, URIC #### [facility] [address] [place] [address] Dr. Alexsander Dickinson AST [Catalytic activity/Vol] 8 U/L Critically low 15-37 [facility] Comment on above: Performed By: #### C MP, LDH, URIC #### [facility] [address] [place] [address] Dr. Alexsander Dickinson Bilirubin [Mass/Vol] 0.2 mg/dL Normal 0.2-1.0 [facility] Comment on above: Performed By: #### C MP, LDH, URIC #### [facility] [address] [place] [address] Dr. Alexsander Dickinson Calcium [Mass/Vol] 8.6 mg/dL Normal 8.5-10.1 [facility] Comment on above: Performed By: #### C MP, LDH, URIC #### [facility] [address] [place] [address] Dr. Alexsander Dickinson Chloride [Moles/Vol] 103 mmol/L Normal 98-107 [facility] Comment on above: Performed By: #### C MP, LDH, URIC #### [facility] [address] [place] [address] Dr. Alexsander Dickinson CO2 [Moles/Vol] 23.7 mmol/L Normal 21.0-32.0 [facility] Comment on above: Performed By: #### C MP, LDH, URIC #### [facility] [address] [place] [address] Dr. Alexsander Dickinson Creatinine [Mass/Vol] 0.61 mg/dL Normal 0.55-1.02 [facility] Comment on above: Performed By: #### C MP, LDH, URIC #### [facility] [address] [place] [address] Dr. Alexsander Dickinson EGFR-AF CHADIAN >60 Normal >=60 [facility] Comment on above: Performed By: #### C MP, LDH, URIC #### [facility] [address] [place] [address] Dr. Alexsander Dickinson EGFR-NON AF CHADIAN >60 Normal >=60 [facility] Comment on above: Performed By: #### C MP, LDH, URIC #### [facility] [address] [place] [address] Dr. Alexsander Dickinson Globulin (S) [Mass/Vol] 4.1 g/dL Normal [facility] Comment on above: Performed By: #### C MP, LDH, URIC #### [facility] [address] [place] [address] Dr. Alexsander Dickinson Glucose [Mass/Vol] 123 mg/dL Critically high 74-106 [facility] Comment on above: Performed By: #### C MP, LDH, URIC #### [facility] [address] [place] [address] Dr. Alexsander Dickinson Potassium [Moles/Vol] 4.2 mmol/L Normal 3.5-5.1 [facility] Comment on above: Performed By: #### C MP, LDH, URIC #### [facility] [address] [place] [address] Dr. Alexsander Dickinson Protein [Mass/Vol] 6.6 g/dL Normal 6.4-8.2 [facility] Comment on above: Performed By: #### C MP, LDH, URIC #### [facility] [address] [place] [address] Dr. Alexsander Dickinson Sodium [Moles/Vol] 137 mmol/L Normal 136-145 [facility] Comment on above: Performed By: #### C MP, LDH, URIC #### [facility] [address] [place] [address] Dr. Alexsander Dickinson Urea nitrogen [Mass/Vol] 5.0 mg/dL Critically low 7.0-18.0 [facility] Comment on above: Performed By: #### C MP, LDH, URIC #### [facility] [address] [place] [address] Dr. Alexsander Dickinson Urea nitrogen/Creatinine [Mass ratio] 8.2 mg/mg Normal [facility] Comment on above: Performed By: #### C MP, LDH, URIC #### [facility] [address] [place] [address] Dr. Alexsander Dickinson PROTIMEon 02-01-2023 INR Coag (PPP) [Relative time] {INR} Normal [facility] Comment on above: Performed By: #### H BSANS #### [facility] [address] [place] [address] Dr. Alexsander Dickinson INR GUIDELINES SEE BELOW Normal [facility] Comment on above: Result Comment: CAROLEE RED INR: 2.0 - 3.0 CONDITIONS NOT LISTED BELOW 2.5 - 3.5 FOR PROSTHETIC HEART VALVE REPLACEMENT 2.5 - 3.5 RECURRENT THROMBOSIS Performed By: #### H BSANS #### [facility] [address] [place] [address] Dr. Alexsander Dickinson PT Coag (PPP) [Time] 9.2 s Normal 9.0-11.6 [facility] Comment on above: Performed By: #### H BSANS #### [facility] [address] [place] [address] Dr. Alexsander Dickinson PTTon 02-01-2023 aPTT Coag (Bld) [Time] 25.9 s Normal 22.3-36.2 [facility] Comment on above: Performed By: #### H BSANS #### [facility] [address] [place] [address] Dr. Alexsander Dickinson TYPE AND SCREENon 02-01-2023 TYPE AND SCREEN Negative Normal [facility] Comment on above: Performed By: #### A FPMAT #### [facility] [address] [place] [address] Dr. Alexsander Dickinson URIC ACID SERUMon 02-01-2023 Urate [Mass/Vol] 5.5 mg/dL Normal 2.6-6.0 [facility] Comment on above: Performed By: #### C MP, LDH, URIC #### [facility] [address] [place] [address] Dr. Alexsander Dickinson US PREG BIOPHY W [...] by: DEE GALLEGOS Date: 2023-02-01 15:04 Normal [facility] US PREG BIOPHY W NON STRESSo n [...] by: SEBASTIAN HENRY Date: 2023-01-25 15:18 Normal [facility] US PREG BIOPHY W NON STRESSo n [...] by: DEE GALLEGOS Date: 2023-01-19 06:16 Normal [facility] US PREG BIOPHY W NON STRESSo n [...] DEE GALLEGOS Date: 2023-01-11 15:38 Normal [facility] US PREG GROWTHon 01-11-2023 US PREG GROWTH [...] by: DEE GALLEGOS Date: 2023-01-11 16:42 Normal [facility] GTT 3 HR PREGon 12-01-2022 Glucose [Mass/Vol] 104 mg/dL Normal 74-106 [facility] Comment on above: Performed By: #### A 1C #### [facility] [address] [address] [address] Alexsander Dickinson Glucose [Mass/Vol] 182 mg/dL Normal [facility] Comment on above: Performed By: #### A 1C #### [facility] [address] [address] [address] Alexsander Dickinson Glucose [Mass/Vol] 114 mg/dL Normal [facility] Comment on above: Performed By: #### A 1C #### [facility] [address] [address] [address] Alexsander Dickinson Glucose [Mass/Vol] 73 mg/dL Normal [facility] Comment on above: Performed By: #### A 1C #### [facility] [address] [place] [address] Dr. Alexsander Dickinson PAP ACOG PANEL 2: 20 to 28on 11-18-2022 . . Normal [facility] Comment on above: Performed By: #### A 1C #### [facility] [address] [place] [address] Dr. Alexsander Dickinson Age Gdln ACOG Testing 21-29 [facility] Comment on above: Performed By: #### A 1C #### [facility] [address] [address] [address] Alexsander Dickinson DIAGNOSIS: Comment [facility] Comment on above: Result Comment: NEGA TIVE FOR INTRAEPITHELIAL LESION OR MALIGNANCY. Performed By: #### A 1C #### [facility] [address] [address] [address] Alexsander Dickinson Methodology: Comment [facility] Comment on above: Result Comment: This liquid based ThinPrep(R) pap test was screened with the use of an image guided system. Performed By: #### A 1C #### [facility] [address] [place] [address] Dr. Alexsander Dickinson Note: Comment [facility] Comment on above: Result Comment: The Pap smear is a screening test designed to aid in the detection of premalignant and malignant conditions of the uterine cervix. It is not a diagnostic procedure and should not be used as the sole means of detecting cervical cancer. Both false-positive and false-negative reports do occur. . Performed By: #### A 1C #### [facility] [address] [place] [address] Dr. Alexsander Dickinson Performed by: Comment Normal [facility] Comment on above: Result Comment: Cici Clarke, [facility] (ASCP) Performed By: #### A 1C #### [facility] [address] [place] [address] Dr. Alexsander Dickinson Reflex Criteria: Comment [facility] Comment on above: Result Comment: The HPV DNA reflex criteria were not met with this specimen result therefore, no HPV testing was performed. . Performed By: #### A 1C #### [facility] [address] [place] [address] Dr. Alexsander Dickinson Specimen adequacy: Comment [facility] Comment on above: Result Comment: Sati sfactory for evaluation. No endocervical component is identified. Performed By: #### A 1C #### [facility] [address] [place] [address] Dr. Alexsander Dickinson CHLAMYDIA/GONOCOCCUS ZUNILDA ( AB/URINE/PAPon 11-17-2022 Chlamydia trachomatis, ZUNILDA Negative Normal Negative [facility] Comment on above: Performed By: #### A 1C #### [facility] [address] [place] [address] Dr. Alexsander Dickinson Neisseria gonorrhoeae, ZUNILDA Negative Normal Negative [facility] Comment on above: Performed By: #### A 1C #### [facility] [address] [place] [address] Dr. Alexsander Dickinson VAGINITIS/VAGINOSIS DNA PROB Jose De Jesus 11-16-2022 Reema species Negative Normal Negative [facility] Comment on above: Performed By: #### V AGINT #### [facility] [address] [place] [address] Dr. Alexsander Dickinson Gardnerella vaginalis Negative Normal Negative [facility] Comment on above: Performed By: #### V AGINT #### [facility] [address] [place] [address] Dr. Alexsander Dickinson Trichomonas vaginalis Negative Normal Negative [facility] Comment on above: Performed By: #### V AGINT #### [facility] [address] [place] [address] Dr. Alexsander Dickinson US PREG INCOMPLETE ANATOMYon 11-14-2022 US PREG INCOMPLETE ANATOMY EXAMINATION: US PREG INCOMPLETE ANATOMY HISTORY: screening COMPARISON: No relevant comparison available. FINDINGS: Heart rate: 150 bpm position: Variable Anatomy: 4.8 x 5.8 mm choroid plexus cyst is again identified IMPRESSION: Stable choroid plexus cyst Electronically authenticated by: SEBASTIAN HENRY Date: 2022-11-14 16:19 Normal [facility] FREE T4on 10-19-2022 Free T4 [Mass/Vol] 0.89 ng/dL Normal 0.76-1.46 [facility] Comment on above: Performed By: #### H BSANS #### [facility] [address] [place] [address] Dr. Alexsander Dickinson TSHon 10-19-2022 TSH 1.303 uIU/mL Normal 0.358-3.740 [facility] Comment on above: Performed By: #### H BSANS #### [facility] [address] [address] [address] Alexsander Dickinson US PREG ANATOMY SINGLEon [...] DEE GALLEGOS Date: 2022-10-17 20:42 Normal [facility] AFP MATERNAL FOR SPINA BIFID Aon 10-11-2022 AFP MoM 1.49 Normal [facility] Comment on above: Performed By: #### A FPMAT #### [facility] [address] [address] [address] Alexsander Dickinson AFP Value 60.8 ng/mL Normal [facility] Comment on above: Performed By: #### A FPMAT #### [facility] [address] [address] [address] Alexsander Dickinson AFP, Serum for Spina Bifida Report Normal [facility] Comment on above: Performed By: #### A FPMAT #### [facility] [address] [address] [address] Alexsander Dickinson Comment Comment Normal [facility] Comment on above: Result Comment: Niurka Patricia, Ph.D., [facility] Director . References: Available Upon Request. . Multiples Of Median Cutoffs For AFP Elevations Fonseca 2.5 Black 2.8 IDD 2.0 Twins 4.5 Abbreviation Definitions IDD - Insulin Dep Diabetes OSBR - Open Spina Bifida Risk . For further inquiries contact [employer] at [phone]. . This test was developed and its performance characteristics determined by [employer]. It has not been cleared or approved by the Food and Drug Administration. Performed By: #### A FPMAT #### [facility] [address] [address] [address] Alexsander Tiwari Age Collection Date 19.4 weeks [facility] Comment on above: Performed By: #### A FPMAT #### [facility] [address] [place] [address] Dr. Alexsander Dickinson Gestat, Age Based on NILE Normal [facility] Comment on above: Result Comment: 02/2023 Recalculations are not recommended when gestational dating by LMP and ultrasound are within 10 days. Performed By: #### A FPMAT #### [facility] [address] [address] [address] Alexsander Dickinson Insulin Dep Diabetes No Normal [facility] Comment on above: Performed By: #### A FPMAT #### [facility] [address] [place] [address] Dr. Alexsander Dickinson Interpretation Comment Normal [facility] Comment on above: Result Comment: Inte [...] Customer Services to discuss available options. The [employer] recommends amniocentesis be offered to women age 35 and older. Performed By: #### A FPMAT #### [facility] [address] [address] [address] Alexsander [age]ikcinson Maternal Age at NILE 27.[address] [age] [address] [facility] Comment on above: Performed By: #### A FPMAT #### [facility] [address] [place] [address] Dr. Alexsander Dickinson Multiple Gestation No Normal [facility] Comment on above: Performed By: #### A FPMAT #### [facility] [address] [address] [address] Alexsander Dickinson OSBR Risk 1 [place] 2809 Normal [facility] Comment on above: Performed By: #### A FPMAT #### [facility] [address] [address] [address] Alexsander Dickinson PDF . [facility] Comment on above: Performed By: #### A FPMAT #### [facility] [address] [place] [address] Dr. Alexsander Dickinson Race Normal [facility] Comment on above: Performed By: #### A FPMAT #### [facility] [address] [place] [address] Dr. Alexsander Dickinson Test Results: Negative Normal [facility] Comment on above: Performed By: #### A FPMAT #### [facility] [address] [place] [address] Dr. Alexsander Dickinson GTT 3 HR PREGon 09-29-2022 Glucose [Mass/Vol] 99 mg/dL Normal 74-106 [facility] Comment on above: Performed By: #### A FPMAT #### [facility] [address] [address] [address] Alexsander Dickinson Glucose [Mass/Vol] 173 mg/dL Normal [facility] Comment on above: Performed By: #### A FPMAT #### [facility] [address] [place] [address] Dr. Alexsander Dickinson Glucose [Mass/Vol] 151 mg/dL Normal [facility] Comment on above: Performed By: #### A FPMAT #### [facility] [address] [address] [address] Alexsander Dickinson Glucose [Mass/Vol] 76 mg/dL Normal [facility] Comment on above: Performed By: #### A FPMAT #### [facility] [address] [address] [address] Alexsander Dickinson GLUCOSE - 1HRon 09-20-2022 Glucose [Mass/Vol] 159 mg/dL Critically high 74-106 [facility] Comment on above: Performed By: #### H BSANS #### [facility] [address] [place] [address] Dr. Alexsander Dickinson HEP B SURFACE ANTIGEN SCREEN on 08-17-2022 HBsAg Screen Negative Normal Negative [facility] Comment on above: Performed By: #### H BSANS #### [facility] [address] [place] [address] Dr. Alexsander Dickinson HEPATITIS C VIRUS AB W/ REFL EX QUANTon 08-17-2022 HCV AB <0.1 Normal 0.0-0.9 [facility] Comment on above: Performed By: #### A 1C #### [facility] [address] [place] [address] Dr. Alexsander Dickinson Interpretation: Comment Normal [facility] Comment on above: Result Comment: Nega tive Not infected with HCV, unless recent infection is suspected or other evidence exists to indicate HCV infection. Performed By: #### A 1C #### [facility] [address] [place] [address] Dr. Alexsander Dickinson HIV 1 AND 2 WITH REFLEXon HIV Screen 4th Generation wRfx Non-Reactive Normal Non Reactive [facility] Comment on above: Result Comment: HIV Negative HIV-1/HIV-2 antibodies and HIV-1 p24 antigen were NOT detected. There is no laboratory evidence of HIV infection. Performed By: #### H IV12 #### [facility] [address] [place] [address] Dr. Alexsander Dickinson RPR QUANTon 08-17-2022 Rapid Plasma Reagin, Quant Non-Reactive Normal NonRea<1:1 [facility] Comment on above: Result Comment: Plea se Note: This test does not meet current guidelines for screening and diagnosis of syphilis. This test is intended for following treatment response in patients being treated for syphilis infection. To screen for syphilis infection, a reflex cascade that includes both RPR and a treponema-specific assay should be utilized, such as Treponema pallidum (Syphilis) Screening Craig (359743) or Rapid Plasma Reagin (RPR) Test With Reflex to Quantitative RPR and Confirmatory Treponema pallidum Antibodies (271841). Performed By: #### H BSANS #### [facility] [address] [place] [address] Dr. Alexsander Dickinson RUBELLA AB IGGon 08-17-2022 Rubella Antibodies, IgG 11.90 index Normal Immune >0.99 [facility] Comment on above: Result Comment: Non- immune <0.90 Equivocal 0.90 - 0.99 Immune >0.99 Performed By: #### H BSANS #### [facility] [address] [place] [address] Dr. Alexsander Dickinson CBC AUTO DIFFon 08-16-2022 BASO # 0.1 103/ul Normal 0.0-0.1 [facility] Comment on above: Performed By: #### H BSANS #### [facility] [address] [place] [address] Dr. Alexsander Dickinson Basophils/100 WBC (Bld) 0.6 % Normal 0.2-2.0 [facility] Comment on above: Performed By: #### H BSANS #### [facility] [address] [place] [address] Dr. Alexsander Dickinson EO # 0.1 103/ul Normal 0.0-0.7 [facility] Comment on above: Performed By: #### H BSANS #### [facility] [address] [place] [address] Dr. Alexsander Dickinson Eosinophils/100 WBC (Bld) 0.9 % Normal 0.9-7.0 [facility] Comment on above: Performed By: #### H BSANS #### [facility] [address] [place] [address] Dr. Alexsander Dickinson Erythrocyte distribution width (RBC) [Ratio] 12.9 % Normal 11.0-15.0 [facility] Comment on above: Performed By: #### H BSANS #### [facility] [address] [place] [address] Dr. Alexsander Dickinson Hematocrit (Bld) [Volume fraction] 39.0 % Normal 36.0-48.0 [facility] Comment on above: Performed By: #### H BSANS #### [facility] [address] [place] [address] Dr. Alexsander Dickinson Hemoglobin (Bld) [Mass/Vol] 12.9 g/dL Normal 12.0-16.0 [facility] Comment on above: Performed By: #### H BSANS #### [facility] [address] [place] [address] Dr. Alexsander Dickinson IG # 0.04 10e3/ul Critically high 0.00-0.03 [facility] Comment on above: Performed By: #### H BSANS #### [facility] [address] [place] [address] Dr. Alexsander Dickinson IG % 0.4 % Normal 0.0-0.5 [facility] Comment on above: Performed By: #### H BSANS #### [facility] [address] [place] [address] Dr. Alexsander Dickinson LYMPH # 2.4 103/ul Normal 1.2-3.8 [facility] Comment on above: Performed By: #### H BSANS #### [facility] [address] [place] [address] Dr. Alexsander Dickinson Lymphocytes/100 WBC (Bld) 26.3 % Normal 20.5-60.0 [facility] Comment on above: Performed By: #### H BSANS #### [facility] [address] [place] [address] Dr. Alexsander Dickinson MANUAL DIFF REQ NO Normal [facility] Comment on above: Performed By: #### H BSANS #### [facility] [address] [place] [address] Dr. Alexsander Dickinson MCH (RBC) [Entitic mass] 28.4 pg Normal 26.7-34.0 [facility] Comment on above: Performed By: #### H BSANS #### [facility] [address] [place] [address] Dr. Alexsander Dickinson MCHC (RBC) [Mass/Vol] 33.1 g/dL Normal 29.9-35.2 [facility] Comment on above: Performed By: #### H BSANS #### [facility] [address] [place] [address] Dr. Alexsander Dickinson MCV (RBC) [Entitic vol] 85.7 fL Normal 81.0-99.0 [facility] Comment on above: Performed By: #### H BSANS #### [facility] [address] [place] [address] Dr. Alexsander Dickinson MONO # 0.6 103/ul Normal 0.3-0.8 [facility] Comment on above: Performed By: #### H BSANS #### [facility] [address] [place] [address] Dr. Alexsander Dickinson Monocytes/100 WBC (Bld) 6.8 % Normal 1.7-12.0 [facility] Comment on above: Performed By: #### H BSANS #### [facility] [address] [place] [address] Dr. Alexsander Dickinson NEUT # 5.8 103/ul Normal 1.4-6.5 [facility] Comment on above: Performed By: #### H BSANS #### [facility] [address] [place] [address] Dr. Alexsander Dickinson Neutrophils/100 WBC (Bld) 65.0 % Normal 43.0-75.0 [facility] Comment on above: Performed By: #### H BSANS #### [facility] [address] [address] [address] Alexsander Dickinson Platelet mean volume (Bld) [Entitic vol] 9.9 fL Normal 9.5-13.5 [facility] Comment on above: Performed By: #### H BSANS #### [facility] [address] [address] [address] Alexsander Dickinson PLT 275 103/ul Normal 150-450 [facility] Comment on above: Performed By: #### H BSANS #### [facility] [address] [address] [address] Alexsander Dickinson RBC 4.55 106/ul Normal 4.20-5.40 [facility] Comment on above: Performed By: #### H BSANS #### [facility] [address] [place] [address] Dr. Alexsander Dickinson WBC 8.9 103/ul Normal 4.0-11.0 [facility] Comment on above: Performed By: #### H BSANS #### [facility] [address] [place] [address] Dr. Alexsander Dickinson CULTURE URINEon 08-16-2022 CULTURE URINE Culture Observations: MODERATE GROWTH OF MIXED GENITAL JOHN. NO POTENTIAL PATHOGENS SEEN. Normal [facility] Comment on above: Performed By: #### A FPMAT #### [facility] [address] [place] [address] Dr. Alexsander Dickinson GLYCOHEMOGLOBIN A1Con 2021 ADA RECOMMENDATION SEE BELOW Normal [facility] Comment on above: Result Comment: ADA RECOMMENDED LIMIT 4.0 - 6.0 ADA THERAPEUTIC TARGET < 7.0 ACTION SUGGESTED > 7.0 Performed By: #### A 1C #### [facility] [address] [place] [address] Dr. Alexsander Dickinson Glucose [Mass/Vol] 111 mg/dL Normal [facility] Comment on above: Performed By: #### A 1C #### [facility] [address] [place] [address] Dr. Alexsander Dickinson HbA1c (Bld) [Mass fraction] 5.5 % Normal 4.5-6.2 [facility] Comment on above: Performed By: #### A 1C #### [facility] [address] [place] [address] Dr. Alexsander Dickinson LATRELL BOX TEST PT SEND OUTo n 08-16-2022 SENT TO REF LAB 08/16/2022 Normal [facility] Comment on above: Performed By: #### N BOX #### [facility] [address] [place] [address] Dr. Alexsander Dickinson TYPE AND SCREENon 08-16-2022 TYPE AND SCREEN Negative Normal [facility] Comment on above: Performed By: #### A FPMAT #### [facility] [address] [place] [address] Dr. Alexsander Dickinson US PREG TVon 07-21-2022 [...] DEE GALLEGOS Date: 2022-07-20 22:25 Normal [facility] US PREG TVon 07-13-2022 US PREG TV EXAMINATION: US PREG TV HISTORY: Missed period COMPARISON: 03/09/2022 FINDINGS: Fonseca intrauterine gestation Gestational sac: 1.7 cm, 6 weeks 2 days Yolk sac: 1.7 mm [place]-rump length: 5.8 mm, 6 weeks 3 days Heart rate: 125 bpm Uterus is normal in appearance, anteverted, retroflexed The ovaries are normal in appearance. Cervix: Closed, 3.9 cm small amount of fluid in the endocervical canal IMPRESSION: Viable fonseca intrauterine gestation measuring 6 weeks 3 days Electronically authenticated by: SEBASTIAN HENRY Date: 2022-07-13 17:05 Normal [facility] Coding Summaryon 03-17-2022 Coding Summary [employer]Base 64 KxvicuqoYNp7yDx+PGhl YWQ+OS8XWNNbH24doVRk qG4LP1xIXV6QZNFMTWHP QX9MTW6dlQN5OHakO3Wr biAv QnbyyVXeFN86VYq4NXC2 sVcvTLgcgV8ciDEcK3r2 ZkWxUZ05xC89RYzoQJHv MbW3CtGwiqofoKAm P4cnZiFsvCXhJzn+PHRh YmxlIHdpZHRoPScxMDAl UvVuaWnhFY8rFp4jOSRa LWNvbGxhcHNlOiBj t4mcUPWqIXnfXI0qsKnc C7HjjED3BTCyv5e1Wl56 dHI+XSXbTZN8hIobGCfp b054QoFvz7spQXA1 lTYsMYsjIOR7F44ea7F3 ROKhGYEcVAZ0yCA6jR7m bIatdjrxG8OjqFEvDbW3 YLC6jHYdkF5jiMwk mcryuX8jNlv+V81AHX1B BMEBRP3GWng6N4KiTysr dHI+DF36DSQcYT16tZTn yZLon1puiTr5BbWc CRNwREZ5vAuyCLpjg3Le FJBpZ24vqLOby9Z9KCXv lIqekOQuDkLygPO5bQ1v WSlhmvbmw0dxxknb Nlngp9fesc34zL99Q65z COetVPNbYWC4PXAeYUDl zTbpau8fyD0fSl1+IDxj c8gbq9nqsRo4NeLs KNCwjbQkvMyfZWT9g1Zp Oz91Z3GhgZmqr5QwEmj1 hh48uYLxn4B5tDY2DVgb IXBqgV2sNRosTrJ1 OXXeNzAwpS00mZBdSTgo Ky3syGgayYfqHS4aHKGp coaaFMXopK2eWIBzzCCj lMfdRW0zBMXwgthi s742SgMpQPB3VADryGXr N2HclB8rOoDhDFKfHSGb I6HdoWDkTUuaN936PGug GwW2WXImyfUyM1Jp GBRpvKtrLiT8d3M3Ll3S d3IdylbbDLQ6ABgsKKZ2 LhLsOsBxXdB9R6PmHhy9 FYCbtMdiGK1vP2Xb HGOfknhsziwvdAA2VPFf AYGtiQ20wIWtJQahYv4f g3I7q507LCBbYSLkcU35 Fg6jlSstURUcqHKI rC1cvlzvs0qhypusAwQv UILtSYw1KUt6DQNkzJjg WjJxBMH6VtT0QFY9rSDv kD5zmDmwbgsquA2j Oyc+E04oiW9vBOG5CDL0 kcilMUXyazGcNT71FV88 I8CjRakijWZggTM+PGRp snIcjWdlDM7yQoBv q7xky1IkEOwvH3CaFZKq OOvhQgk6CEXyXMN4jPP7 kR2kNVQoINeqp6H2iAE0 M7CbydYofy0uo1mb QSYiFGfvV57mkEVvn8A0 IPVxyFI3QKJiaPgoMuSa pV15Ldr+YWYbzVmod7Se Wsspv4vcq4ablTj8 IjMwJSIgdmFsaWduPSJ0 b1IxHl89U35fMRhvBKCd BRUnCEGgQVQrbNujjx3x tB9hEx9+PGNvbCB3 kWE5dO3dPADeIqX9IRyq W804DgObmQYnFtlym2ig i6aqrQf6BtZpJYRcucEg uGabINJ5v4QzNs54 X78zBLwwAIUcZTEzJQPg YRBcsDvmgh0naZ2jXo2+ UV0wa2seiy49zG79nGV+ XQVdJJQ4bAenBEax BJZtfC3qJZzjRjT2XVGb ZgXjnS69qYNfVLlmCm6i fXjfhYxkDL7xTUZdhsgv i686FfPlm4ldVOUg vWWwRDuqKPZ0F94ur2C5 IOYiSBVlNDO3aNH1mJ2c bGlnbjogbGVmdDsgdmVy rGbzJFwpKDmlL922 IHRvcDsnPlBhdGllbnQg SzYwWIl9Z0KnRzm3VIDc pBjeBA7wmQSqFUnkYg5e kYqhxMzaZR5cZEEq ctmpk491UcTqv8frLKFd bCTmFSjlZLC6K56ui4F4 MVCeFLXmVJO3hLQ8yI6g bGlnbjogbGVmdDsg keJkdYikYUjnELjjV997 IHRvcDsnPkJpcnRoIERh vYL6LG20WL11oPRen9X7 oIA0X6NdNWYfdinc jppbfKX3DLRwXEGeiT33 Aw8suOpgLn8kMYKfXSS0 TALlzTXyV8OldQ1gUmSi BOHtEHVwF4GjbFCg YKuzN184IAkhHnB2UVBo qvVaT3RiZCSuuHxvPyY4 i2S9Xq0FW1V7HM89SU28 lUOxh1R1gCO2J9Uz ERQkqtychktnyNL8XXVt DKOktS53Iy7vmWbjMy3y JOErIKJ8QMZiyZNxO0Er yO9cWbVuUYIeOBCb R0KtbAVxIDxpP569PVcw CuA8FAPxtjRgK9XkCIIv pJnlQbJ4w3D4Pc2HRAv5 LX18UL95oARjy1N2 tXJ8U3QaWRBzidvqwxdy nCX5JZVkKDZndI66Qs5y bVftAj6lVEPaSHG2ROUx gUTnZ2OndS2oViLy EFXjUVJnV3MnfQHpBAqj M090CThhWvF6MLGgiiSh K2SpXKQbySnbBeR4e7W8 Su2RDFGkWP67YPD3 iFH8HJ54MP96A6IyXzck dGFibGU+PHRhYmxlIHdp ZHRoPScxMDAlJyBzdHls VO4cSm0oSQHtLJBl ySpnqVRcPzSgd4mdOAHg SFffHK9raIbhI0PqsXL9 INPmy7r5Dk89C27oE3Tj dXA+YZXunBR6bCK2 qK6qAtHrDmR6SPsfC679 PwLrvRNgKoohd9fhi5yq nVc3LrZ0ZGFstlUscZer EPU8b7SxTw61N25v IHdpZHRoPSIxNSUiIHZh lAfmat1ajG5jDv0+PGNv tYA1cRD0tN3gStKuTlF4 MXxfK976NnJvpWXl Ewszc5ihu3yozBm7QsSk CQAtzvNfoSlaGHX1k7Ae Pe41S2BfmUury2BdErs1 lp02pJVof5F5pYF1 M4ObSURlvceedUUptWkh ZR9gOSDtxadqDZFfvQ8q FYFhW2e7MoOcApR2EMki I7QcgfL9IJZwbLSe RWawWFJ0J25gl6R1IWFo DHIzYXJ1xBR4vU4stVuj bjogbGVmdDsgdmVydGlj VFhzZHfzQ513VXWp bInsEGKibJ4jLCYkfLAy cYgtDY7uKAOboiihNkEZ TExJTlMsIEFMWVNTQSBS LPBVJVb0B2OqQlw3 LEOokCnaUB9hgTKyLAux Oe6xdQnqzDulYS5gHAOr cectXKSvoN8hQYYqyLZt aYnqVR0gSYNonoex n819CrUmWPB2AWHitSJw V3RbqX7cJlFtVQOnHDFf G2StjFVnFVyrP796XSef AyR1ZUNydqErW6Lm NBDesDuuEpI6o4Z7Ei3x LX8sDd7sQAn9VV13FN53 aKEzo2D1sBS0H5LiHRVz yqqljyzkoVN0WLGi RNEsrM30tKXmGIduYe7u s6Y0s823FLQvLUYdeT71 Yf7czNlcTQXhgWZVfD7v ruzae4glmycbOfBe UIQoVGp0RYe7ZEIjkXae KsUoVVM8HcC6UEB1wRQr aU3spLlhubiwnQ4sOfl+ UcxrRANsudG7A7Qk Mxg8LXCzwWmeNI3ygPLb XTcmBj2trUntdSlpMN1q CCGkhdmqAKDqnH9hXWCx qJEwuVehRJ1hVCYa egmlb517WkSeWZW0RVMt zPPiE8TtkO7yQvNfQZUc BXVmA5ItxVGkIXgcK145 UJvsDlC8ZXTmkgZg V0CaFIYhvJzwQhH2d0A1 Fh3HDT0BCGS3R2FcAdy2 KOBloWzdWZ1hqOChGGju Vu9roTmufBdkYV1k GHJvucttHFVgwM7jJHEx zJUdcHnjEU1wXXHvbqup j880HrFcIZI3MIWatCQs Z4EgnV9hSkPoJSGq RQRoW4VwwTAqDPgfX428 VWvkEdF3HBRjtyAeS2Ig QLZbqAixOaJ0s6L0Uv7O UDwvdGQ+FA01wv85 U0TpEsmgEbu6JLAlAOH8 tDE7cI4qPVNoROklm9H4 rTC2O1GkjkActf5dn9uq BLWeSNwxO23jnFGv j7W9UURxtVQ2RQVtnTcb YjLpvS79Eao+PGNvbGdy n8HrYynve9nog0pxiXg2 IjMwJSIgdmFsaWdu WUE5b8YfUk90E74bTNzq ZHRoPSIzMCUiIHZhbGln ej8kxX3gEp0+PGNvbCB3 mUN0eW7gUyFyPsM1 LQolQ959HdPbkHAaYfch w2bfi5xsnNd5YqJrUXQe elRqoMsfUAC8x3SqRk85 X3AdwEniz4CfHsk2 dd37tFEqc7T4wRD6Z0Uo FOIsdwflyNIknOktWS2z DVQmuvtoORUfwM2bLGZx A7b6MjQkSiZ3LAtk S2VphjU5WVVbgPOzHVGb wMZEtR1duhkng4zukrkv RoZzIYHyWJd5FKc5EABx fJthHtYuSBL2BzY5 QCG7aZMpkF1beDretzvy eX6jKbf+FGo2y5eunCOh BI0yeXC8DK08DC59fCNg s0W2aWA4P0PbBVQp yudexwtniDV5UZNsMASs uQ85Ie1hqWbkXb9bCROn VZW5GFUjlRCfH2WuqT0z RiJwOJVkGFDwJ8Ra xQKaDPofT857XXaxTzV6 RRKupwMrQ9NpFLNpyRxy TlB6m4N3Wv8WPS93PF83 WJ70nHFpr3O9oJF8 J5FeMNEccuqdhuqbgJV9 KOYjMWQudK40Lx0mhRol Bo6zAYDgGHD7ZXNkiFHv R2YnrV4mBrSkDFGu TOVwG0ElnDDcUGolQ463 KZksDqI9FMHjojUbM9Eg ENAnvQleGlL4i4D7Kl5N Vt07IF16FP58dPKt c9F6gFW5R5DuAVIxyega dphjpTF1IHDoKVKzfM95 Js6auIkuCy0oNTBeBKK7 ARWutFYoT1MutS9e RtXpHXXlJHZpZ7KkvJRa GTtfK957YZpxVlY8EBOh mzRdO3MqWDOumUwxPmZ3 p7J6Fz8GUXlqbpj0 Z7WzNywqmIK+MK74HOCb WR60bNQawTLkp1dcxBb5 ZyPeZAGtRAY6fRzpAZir p4NoHMOwL72boZFl c2U (more content not included)... [facility] Coding Summary HTMLBase 64 IsvoqpufNVd9eCe+PGhl YWQ+FP4ODJDfQ95yyLPz tM6VE3tCLJ7DEJILSTAU YN1DDV9goES7ZVreL0Uj biAv IsftfEXbWL20RCq8JPV3 wNmbJAirmH7jvEFcD1i2 LePdHP58cA76MLetNHZw YuI9GmDbwxdvcYFw I4rmBnMmrLXqEjx+PHRh YmxlIHdpZHRoPScxMDAl QyBqkMghGB5qXf1cJCSf LWNvbGxhcHNlOiBj z9fnFEUhWZdwSK1cuOgr Q6StxDM1KBSug9q1Dl92 dHI+NVMkFPY6gKtjUSlk f700SnWrh5pgKOP8 mUNjLFfvMAK3A98xj9S5 YCZkXYQeWKF3qLV9wN9q fLdyilzcC9WyvBVuVsY1 APM8sDSliE7tiPfp nyrekQ6oGoe+T43JHK3W RBHONI1ZNhh0M3AdXypj dHI+VD74HKWvAX02oAHy sGTyv7mabRy7IhGe WSSnGAD7qUvuMGmxv2Eg RHAuQ42beXUkp5Z4BEYb nGcdnSFsLmYjdPN8nK1t DLodorgfm6ldoage Bjxer5jsor30oV67R10t RLgoJOIkVWC1FIKkILSg iZbzey0dwE4mNv2+IDxj i0hww9hpzQj0SwRm JXOmfaAauXkhFBH8k3El Qc48K1AlbXpuh2ThApe7 cx33uYPxx6D0bUZ5TRrq HTFpwH8oDSweXsS3 IWTzMnOynY50lGKnKHun Mh9klXondSfiDU6tUJOr vofpFZFhgP0gJFWdaVHx gLozXA9nVHRjqumd u012HqCyRLV4MFPjvIMv M7BlaO2fSbKlWCWoCVTv Y2ZhgBNdYQbaW586IMje LnU7PBZjnuRmT9Mu XMAyoHaoDyV1l9M9Tf8I y2NbldixTQX5ZEvhUMF9 DqKfRhOkCtW6K2MdTua6 XTUqfWzyYR6wD5Uq CTIccrtpoidxxUQ0ZBSi XCHutI44uWNiWXndLy8o y7E2a943PYNcZAPiuB07 Jx7cxCkwLZBiwYQC sT0bmycey5gsvcqpFfIl LRFwOIp3XAd9UTOvoPvl AmAyNDE0ZkW3ANY8nNGq qK4kmIpdoyqvsM1u Oyc+F25vqB7vKYO0NXG8 dnhqNOWlspJgCV75VD64 G3VeVktrgQXcsCZ+PGRp isIixBvsLW4sKhZl a9gtl9LdSGaaL2BcDSFb RZemKyn4MFDoBAX7eWE5 kE9hCFFwUCeev3F1mBM0 F6DqqlMzbp5kp0gf ZIZgTKjrS47uvTKdh7A2 YSZysJQ0LYRhoJoyOlCq aI92Yzr+RJUguMvhy9Za Cexir9joj7xvmSo5 IjMwJSIgdmFsaWduPSJ0 e2JoLg23F19mZKfiRPKe DTMxBFEeTHShlHfldb2w jS6mPe7+PGNvbCB3 qDD5yW3kDNKjKdK6BInc U655QmVrdIOoMxlal9ee v7rnrHo1AiTyLQTqjcGu nGjvYWN9z7IrAc70 P58bPToiIBWrAIEuBHAi HWSktUnqbu4rhM1yNq3+ MM4pi2oyzu12rD88kYA+ LWQyVJE6rDclAHsm CVOtxK3gSLpdSwU2MSYy TuPseH26vAUrRNzrOl5w hZnckAokVO9yZCMseuoq z858GaOyn7obBOQb oTXxONefNKA9T61br9K9 RURsDOSsDCL3kEA8xG2t bGlnbjogbGVmdDsgdmVy lAbdSZpgOGfnZ846 IHRvcDsnPlBhdGllbnQg IvYtGGw0B6OzWki9HJAe pRnoMI4hsSBjHJinHg4u sXmswSieLV7hOHUh vemyf082XtDpu8gwGKMs aBYrYIvjKXQ2J78ue0W9 OTLiHBKmFGS0aSS4eV0l bGlnbjogbGVmdDsg nnFmwEebSZfyAIxdP280 IHRvcDsnPkJpcnRoIERh gKY4GE61CI23cGSwx8H8 jRC7L6ZeODGmvefp fsfjaFL3CKNaTLRtsH70 Nw4dwVqlNk6kBZWiAAZ2 VLFovXZmS3EnjV4qMaDs FEPcJASrH1JhqDFa HPyxA360PHumJaZ4OMEk tbPeE1PbAFMlhSiqWdR7 r8K2Zz8LL2M2BD00GK53 sUHlw2R0dYD3D4Yg OTSddqwudgwzyWW8HVAm CANiyO02Sa6xlHepSy3c YIHrFFQ9XOYnuCRyK2Wl tW0oQpAcYFRmNPAo L2UywZPpCOinY780PEzk FxO1ZDIekrXlJ3WzAXIl uUwzFnO8r2U7Go2JVVk7 OE73PK37wDEry7T1 sYW2R0VgEBIniigysvsp iBD2QVQyOMImxQ05Ok0n xZdqWd2tXCMcAWR8PADo qBKbY6BzxM9lLvXh KQSkPGWjY4KdtJSlKYll Q873ZYvvNxG0GYHwdgQs N2FiZTObdTpxTkD5u3G7 Aa1TUAHxLW13GSO1 yNQ2YF72XJ48D6AcSbsm dGFibGU+PHRhYmxlIHdp ZHRoPScxMDAlJyBzdHls TM5dVk0qTKInDYDa wUiroUDfWwLjg5qsPZXq JRemOE3siIczC3EgfIS7 CROtm9f7Xb72J63bN2Zt dXA+MWCtgHL6dCP6 cJ0kNbGmDfQ2XQpxI052 ZiEupLQzAziwd2rou8ok bZw6NtS4UOEmogHhzIlo SFL9b9QgSo09O63k IHdpZHRoPSIxNSUiIHZh vZuvup0opL6hSs4+PGNv xEP9uAB5pV4qHcXwMoJ0 DCreR118EaEfrPTl Tmcth7puz9lzgHp5FkSk LPXyluLeuTviMRF8w8Yz Jr36J2BqqOyoi3KpOpo3 cy42hOXpq1F9qIQ9 N8WiIIKmjdxdcWDymXez NA9cRJOmfqfaCEAnnO3l XJOrZ7x4XpJrQuY3HPwd L9AdvoO3PGQasQQk IJvfARG2I13po3O3CIGg ZSVvYPY1iYV7yO9tuTud bjogbGVmdDsgdmVydGlj VHibAIahL880VQZp mSetUUMvjZ6wQGViuIOp dGohED4rWDEnfugoBeDC TExJTlMsIEFMWVNTQSBS VWGHRKj0B5GrUru5 BULthQddWP1owJNxHLdh Ec1nlLkbnLecRE4dDOZp zyxcLRSwuS0vYYLtvRSv gNolQD0mWEGsmbbz r519TiRnDDA4YUGtvKMd Y1SyrW2zVhYwVTSeJDEi J5OmcELbIAzoD422IYws XnJ4PTRjluEeV1Jf TPLnsSiqZhM2d5R3Nd0o PJ5qGe4dZFt6BA50PH77 oDKps9W4eIP3A5MtASTy sbhjlsvbjXH9TORj CBYkmI48jWJbYCxbYp5d d8S4d531MIOwZIFrjB54 Rr6aeFafDRMmjQMJsX8v fvopd0oowrbpJyLu CWOjQDo2BQv0BZOacXpd OmHoFUH1MsE4ZQA3uMZs sE4keQacixxkwU3yItc+ YutdVWLybeX0O2Og Hsp9SEBiiMsgSA9fhSIt BEcxUb1cqVaviAmrKE7z YWAgznmtMYIsdP0vBEHd kYAbkFmwVW9zKORx eashm749VcEvLUK8GMCc pXVaI3KqsA1fUeQsGFUq TICjG8DstPStBMqmA230 QCahZhK6OYPgrqWe Z1OjOTUrjTusJaJ8h6F2 Fh3LVL6SYQG7H2QhCow0 ZEWaeAgdDC2stRWoOPib Qo5icHpppRveMN3x QAJdwgysIQVkzO4jRNWn kBAliVbwJH0tMRMhachm w063DuYpGPR1DROzkPSk Q6BfkA2zTjJeGVMa DNKzS3TanJAtJJyvE669 UWyyFtG3OOLfvhZpB5Ou RZTrsJzvEaE2y3J9Cq3P gTXxN8FrA3h7L6Qa PjwvdHI+VI64KLTaBU45 rWHsgOZwh0qvkQr2MtAf UARzLII8rVjsUSori1Tk XMKoT10naTJlj6I9 IGNvbGxhcHNlOyBlbXB0 iU9mNDacaxqdx9myubba Ocjru5bipw36zQ73L52g IHdpZHRoPSIzMCUi BQFjxCopmr9chE1jVa2+ DXZzgEY1uDP8gD9mOgNw LyG3FTbaJ407QmDrhFIp Dfsjj0xkx4hdoBq0 IjIwJSIgdmFsaWduPSJ0 g4OyTx73G91bJIziXNUs FHOsYXOeRQKilEytpk4m cH8rAn0+LS3lr5mn hk64wI42nVT+PHRkIHN0 mPhlMUbiDOPnkQ2nANqq McI6DRBoHrNigY55tDOl HLdbXs0rxIzbcNby KI9aQYQiufumc280EvBb r3egPRRpiFUeIMfsBYF9 T66wy9Z2DPDyJMUmWQE6 bQJ1iK8inJnvaiud bGVmdDsgdmVydGljYWwt XJotH951KFLprMuaEfYd gDKlJ9paonLXRF7rHbbn dGQ+LJJpJES9qJzl GUctLKVytO7zIPCvM5k8 CkJbOiD0NByjN5HagdI7 PYEmkKZlBGFxkXZUvG5j bvhlw4xgzjkxCrGq BKDmFKq9XFs2HKSkqHqu CxTnAHX2IiH6VID6sGJi hN2uxXwqdbhqwU4zVvv+ RklOOjwvdGQ+PHRk DKN9nEjdHHfzHQThoY4d XWIlC6d5CoUcLaK3NDvg G7JzwgW7UZDsdBVmMKWm kVWIoV0egcmwk1vx qygrXcTnHXHcXHp7FXn0 HMAyqIqtPiNcTMG7VlP5 KYI1rZHslW7woYnfiber eL3kGtf+TVJOOjwv dGQ+VDBqNMQ4xXthEWrh NRRvzB0oCUOwI4u0ThNd NuK0UOduD9KigsJ3DOWy lKKnPQVwiCGCkO5w weuze6xhutlmEyJzQEWi XQy9ARb2FWArqCrtGnMh MPZ5DfO1EHX1uARhtP2c pOkvxhyodH1gXyo+ TKC7EPE9VD36XA02L2Ub PjwvdGFibGU+PHRhYmxl IHdpZHRoPScxMDAlJyBz nFglLY2tNh3qBGGq LWN (more content not included)... Normal [facility] C Urineon 03-11-2022 C Urine Urine Culture ordered as a result of parameters set on specific urine dip and urine microsopic results. >3 Organisms Consistent with Contamination Recollection suggested. Normal [facility] Comment on above: Performed By: #### 1 3903485, 82628782, 6418191, 7312743362, 46411621, 1756158, 3904387242, 9133549235, 6194659469, 9028817 #### [facility] (DEFAULT) [address] [place] [address] 58984 .Auto Diff 03-09-2022 Auto [place] % 8 % Normal 11-09 [facility] Comment on above: Performed By: #### 1 5142321, 89708879, 2709325, 0202508147, 58444361, 0210521, 2858894414, 0560730705, 0159317600, 0244268 #### [facility] (DEFAULT) [address] [place] [address] 93348 Baso Abs# 0.0 x10 Normal 0.0-0.2 [facility] Comment on above: Performed By: #### 1 1905164, 82020500, 4402181, 4628667188, 09920497, 4435950, 2337292721, 3269427558, 2052002930, 0627532 #### [facility] (DEFAULT) [address] [place] [address] 25582 Basophils/100 WBC (Bld) 0.3 % Normal 0.2-2.0 [facility] Comment on above: Performed By: #### 1 4676818, 02309809, 7645508, 7553383861, 83273037, 5007433, 4428563577, 0727561653, 0832624536, 2377652 #### [facility] (DEFAULT) [address] [place] [address] 66044 Eos Abs# 0.1 x10 Normal 0.0-0.4 [facility] Comment on above: Performed By: #### 1 5331508, 02566018, 3178461, 1528314257, 14153803, 9026618, 9999806572, 2518222590, 8137923535, 2157817 #### [facility] (DEFAULT) [address] [place] [address] 32922 Eosinophils/100 WBC (Bld) 1.0 % Normal 0.9-4.0 [facility] Comment on above: Performed By: #### 1 4035970, 50900750, 0295200, 2831463696, 62920254, 6053420, 3109649626, 0571877132, 1193037178, 5695060 #### [facility] (DEFAULT) [address] [place] [address] 56318 Lymph Abs# 2.0 x10 Normal 1.3-2.9 [facility] Comment on above: Performed By: #### 1 6471317, 11708299, 6205801, 1743313342, 22049370, 0761592, 7080457113, 9959919304, 8726416901, 0632667 #### [facility] (DEFAULT) [address] [place] [address] 81776 Lymphocytes/100 WBC (Bld) 35 % Normal 14-48 [facility] Comment on above: Performed By: #### 1 3969843, 27438591, 3823639, 5572858127, 91956324, 1534479, 1460646476, 7522480687, 0245942913, 7324296 #### [facility] (DEFAULT) [address] [place] [address] 61580 [place] Abs# 0.5 x10 Normal 0.0-0.8 [facility] Comment on above: Performed By: #### 1 5877000, 91749574, 4419940, 8543794817, 14525589, 2533439, 5614151086, 8124948918, 4621361756, 5222758 #### [facility] (DEFAULT) [address] [place] [address] Neut Abs# 3.2 x10 Normal 1.5-9.2 [facility] Comment on above: Performed By: #### 1 3494821, 22718716, 8698675, 3075030655, 51552858, 6822714, 0017141075, 9571142292, 4529734116, 5694329 #### [facility] (DEFAULT) [address] [place] [address] Neutrophils/100 WBC (Bld) 55 % Normal 44-88 [facility] Comment on above: Performed By: #### 1 4248808, 62909783, 7429217, 3827939033, 62475506, 4233004, 4315582703, 8523061321, 5071102633, 8087370 #### [facility] (DEFAULT) [address] [place] [address] ABORhon 03-09-2022 ABO and Rh group Nom (Bld) Hx Check: Not Found Anti-A: 4+ Anti-B: 0 Anti-D: 4+ DCon: 0 A1: mf+ B: 4+ ABORh Interp: A POS Invalid Interpretation Code [facility] Comment on above: Performed By: #### 1 5168483, 57882683, 3659107, 6048402457, 54114507, 9450738, 6070089679, 7390467347, 9536836615, 8207548 #### [facility] (DEFAULT) [address] [place] [address] ABORh Retypeon 05-12-2022 ABO and Rh group Nom (Bld) Ordered by Discern. Anti-A: 4+ Anti-B: 0 Anti-D: 4+ DCon: 0 A1: mf+ B: 4+ ABORh Retype: A POS Invalid Interpretation Code [facility] Comment on above: Performed By: #### 1 7150577, 87524696, 9367214, 5059747495, 30743325, 9346197, 5690430193, 1080949966, 4654171828, 3114972 ####[facility] (DEFAULT)[address] [place] [address] CBC w/ Auto Diffon 2 Erythrocyte distribution width (RBC) [Ratio] 13.3 % Normal 11.5-15.0 [facility] Comment on above: Performed By: #### 1 0982845, 94991296, 0561475, 3896094166, 83688891, 3652662, 3821237431, 5815955325, 8099192540, 7072694 #### [facility] (DEFAULT) [address] [place] [address] 56623 Hematocrit (Bld) [Volume fraction] 43.5 % High 33.7-40.4 [facility] Comment on above: Performed By: #### 1 9083073, 77358354, 1235791, 3072866038, 54258024, 3708413, 4477329172, 9578133193, 1308845350, 5345987 #### [facility] (DEFAULT) [address] [place] [address] 68782 Hemoglobin (Bld) [Mass/Vol] 14.1 g/dL Normal 11.3-15.9 [facility] Comment on above: Performed By: #### 1 2809047, 16051901, 9933147, 5675947756, 72108889, 5354006, 5986026451, 5538542826, 5134373579, 4091757 #### [facility] (DEFAULT) [address] [place] [address] 97202 Instr WBC 5.7 x10 Invalid Interpretation Code [facility] Comment on above: Performed By: #### 1 7663882, 80335875, 3870659, 2159294475, 10755697, 6018086, 6963139197, 2922160597, 1902150507, 6879435 #### [facility] (DEFAULT) [address] [place] [address] 98114 Man Diff? Auto Normal [facility] Comment on above: Performed By: #### 1 1039391, 72143314, 6627532, 2511227462, 80917780, 3935292, 0759276700, 4977916755, 0878495410, 7915327 #### [facility] (DEFAULT) [address] [place] [address] 27115 MCH (RBC) [Entitic mass] 28 pg Normal 24-34 [facility] Comment on above: Performed By: #### 1 6235709, 44570154, 5507353, 1531597020, 95476300, 8359064, 5381800074, 9093298740, 9794453542, 6891336 #### [facility] (DEFAULT) [address] [place] [address] 42377 MCHC (RBC) [Mass/Vol] 32 g/dL Normal 26-37 [facility] Comment on above: Performed By: #### 1 9848644, 36915707, 2401153, 7117740705, 10462466, 7937634, 6811173608, 4699597972, 2332628835, 5533824 #### [facility] (DEFAULT) [address] [place] [address] 21517 MCV (RBC) [Entitic vol] 86 fL Normal 81-100 [facility] Comment on above: Performed By: #### 1 5660650, 23030337, 8807974, 7288940809, 65429458, 0648780, 2557071802, 4995867423, 2803102702, 0830786 #### [facility] (DEFAULT) [address] [place] [address] 73437 Platelet 324 x10 Normal 138-427 [facility] Comment on above: Performed By: #### 1 6223883, 27278541, 8754419, 9341759817, 75106447, 6401822, 3508878339, 9886830781, 8648041771, 4561714 #### [facility] (DEFAULT) [address] [place] [address] Platelet mean volume (Bld) [Entitic vol] 9.8 fL Normal 6.3-10.2 [facility] Comment on above: Performed By: #### 1 1432918, 91079419, 1206115, 4032937970, 72146930, 5775265, 4661587261, 6320343598, 0434049172, 9439839 #### [facility] (DEFAULT) [address] [place] [address] RBC 5.07 x10 Normal 3.70-5.30 [facility] Comment on above: Performed By: #### 1 9521218, 17371814, 2620368, 6265204859, 58858164, 7506764, 9476112160, 5046762194, 8965137098, 4877630 #### [facility] (DEFAULT) [address] [place] [address] WBC 5.7 x10 Normal 3.5-10.5 [facility] Comment on above: Performed By: #### 1 6058957, 22861908, 8416316, 1674400528, 57981285, 6321350, 5198491199, 2412871016, 2991748617, 2708873 #### [facility] (DEFAULT) [address] [place] [address] Standardon 03-09-2022 eGFR Non AA >60 Invalid Interpretation Code [facility] Comment on above: Performed By: #### 1 1479787, 90624392, 5959842, 5491024532, 35421612, 6266723, 9706445923, 1979355487, 0464559785, 5356711 #### [facility] (DEFAULT) [address] [place] [address] eGFR AA >60 Invalid Interpretation Code [facility] Comment on above: Result Comment: [employer] susie Kidney disease could be indicated at eGFRs of less than 60 ml/min/1.73m2. Kidney Failure is indicated at less than 15 ml/min/1.73m2 Performed By: #### 1 8663482, 14218622, 1708863, 4796774948, 82996806, 3910014, 0027508051, 7025766960, 5416774893, 6589801 #### [facility] (DEFAULT) [address] [place] [address] 23797 Albumin [Mass/Vol] 4.5 g/dL Normal 3.5-5.0 [facility] Comment on above: Performed By: #### 1 3557926, 18720667, 4867507, 0768869487, 03957222, 5571310, 7004513959, 7173719276, 7850954668, 0445412 #### [facility] (DEFAULT) [address] [place] [address] 92701 Albumin/Globulin [Mass ratio] 1.2 {ratio} Low 1.4-2.6 [facility] Comment on above: Performed By: #### 1 5002435, 07325889, 3069315, 0753660639, 71381332, 0663237, 2631972638, 8568107918, 0774768577, 4102763 #### [facility] (DEFAULT) [address] [place] [address] 99999 Alk Phos 52 IU/L Normal 32-91 [facility] Comment on above: Performed By: #### 1 5371887, 18411654, 3108889, 9553183793, 02453339, 3504749, 7501733267, 4751570860, 6989731869, 8322249 #### [facility] (DEFAULT) [address] [place] [address] 58726 ALT [Catalytic activity/Vol] 37.0 U/L Normal 14.0-54.0 [facility] Comment on above: Performed By: #### 1 4363694, 86528210, 1278257, 3889899502, 04198020, 4458107, 4966723045, 0469010474, 7742519194, 8931713 #### [facility] (DEFAULT) [address] [place] [address] 55300 Anion gap [Moles/Vol] 18.0 mmol/L Normal 5.0-19.0 [facility] Comment on above: Performed By: #### 1 7855239, 13402691, 6195182, 7022417693, 09350042, 3523774, 3700286411, 6092490460, 5525793332, 1511478 #### [facility] (DEFAULT) [address] [place] [address] 47587 AST [Catalytic activity/Vol] 29 U/L Normal 15-41 [facility] Comment on above: Performed By: #### 1 0659516, 75878910, 5830394, 8343032108, 25444775, 7687023, 8750692483, 9177167747, 9347123453, 9776643 #### [facility] (DEFAULT) [address] [place] [address] 10153 Bili Total 0.7 mg/dL Normal 0.3-1.2 [facility] Comment on above: Performed By: #### 1 9273213, 04525546, 9319373, 3340459406, 94292991, 5354754, 3430541710, 7394387063, 5464392591, 0264631 #### [facility] (DEFAULT) [address] [place] [address] 90495 Calcium [Mass/Vol] 9.4 mg/dL Normal 8.9-10.3 [facility] Comment on above: Performed By: #### 1 7151285, 82668115, 9766594, 7505377358, 06450361, 6159012, 1113781982, 4344638434, 1681090379, 8937097 #### [facility] (DEFAULT) [address] [place] [address] 15798 Chloride [Moles/Vol] 100 mmol/L Low 101-111 [facility] Comment on above: Performed By: #### 1 8820984, 16407393, 4603634, 3627273487, 60350856, 4416517, 0764660153, 5915441768, 2437709962, 7439022 #### [facility] (DEFAULT) [address] [place] [address] 85278 CO2 [Moles/Vol] 24 mmol/L Normal 21-32 [facility] Comment on above: Performed By: #### 1 9047384, 78381881, 5755689, 2639229195, 72032223, 8396491, 9486521487, 8867099037, 6628080076, 5887351 #### [facility] (DEFAULT) [address] [place] [address] 52156 Creatinine [Mass/Vol] 0.75 mg/dL Normal 0.60-1.30 [facility] Comment on above: Performed By: #### 1 8479233, 14173482, 0159747, 5814295687, 08523995, 6556101, 0659865168, 6778023699, 4315605650, 0887758 #### [facility] (DEFAULT) [address] [place] [address] 03446 Globulin (S) [Mass/Vol] 3.9 g/dL Normal 1.5-4.3 [facility] Comment on above: Performed By: #### 1 2143568, 52678532, 6905963, 5585250891, 26384578, 3984476, 7031988204, 5762512491, 4553082306, 6904823 #### [facility] (DEFAULT) [address] [place] [address] 71055 Glucose [Mass/Vol] 98.0 mg/dL Normal 74.0-118.0 [facility] Comment on above: Performed By: #### 1 3613522, 65310263, 0535769, 7409058690, 72095631, 6368562, 4189381949, 8787541731, 7549248758, 4430670 #### [facility] (DEFAULT) [address] [place] [address] 96498 Osmolality 274 mOsm/L Invalid Interpretation Code [facility] Comment on above: Performed By: #### 1 [id number], [id number], 5502105, [id number], 81502438, 4959680, [id number], [id number], [id number], 2125629 #### [facility] (DEFAULT) [address] [place] [address] 55798 Potassium [Moles/Vol] 3.5 mmol/L Low 3.6-5.1 [facility] Comment on above: Performed By: #### 1 [id number], [id number], 4777807, [id number], 12465011, 0573413, [id number], 9769928414, 1269403555, 7764935 #### [facility] (DEFAULT) [address] [place] [address] 95649 Protein [Mass/Vol] 8.4 g/dL High 6.5-8.1 [facility] Comment on above: Performed By: #### 1 [id number], 29327816, 3952523, [id number], 32162430, 2694771, 4364414832, 9751510568, 5062589794, 8892684 #### [facility] (DEFAULT) [address] [place] [address] 47505 Sodium [Moles/Vol] 138.0 mmol/L Normal 136.0-144.0 [facility] Comment on above: Performed By: #### 1 [id number], 70689901, 0194715, [id number], 55593658, 8277764, 8855528564, 0983975001, [id number], 8183767 #### [facility] (DEFAULT) [address] [place] [address] 84906 Urea nitrogen [Mass/Vol] 7 mg/dL Low 8-26 [facility] Comment on above: Performed By: #### 1 [id number], 51894118, 1838495, 8137754171, 11100124, 4924219, 3489332663, 6405895611, 2879362381, 5108160 #### [facility] (DEFAULT) [address] [place] [address] 23823 Urea nitrogen/Creatinine [Mass ratio] 9.0 mg/mg Normal 4.6-16.2 [facility] Comment on above: Performed By: #### 1 2263533, 43389920, 6633645, 5285256902, 22215086, 5274520, 5401429254, [id number], [id number], 9868812 #### [facility] (DEFAULT) [address] [place] [address] ED Clinical Summaryon 2021 ED Clinical Summary [facility] - Emergency Department [address] [place], [place] [id number] ED Clinical Summary PERSON INFORMATION Name: DIANE JOYCE Age: 26 Years Sex: FEMALE : 1995 MRN: Acct#: Visit Reason: Vaginal bleeding - < 20 wks ; BLEEDING, Arrival: 03/09/2022 15:56:59 Discharge: 03/09/2022 18:28:00 LOS: 000 02:32 Check In: 03/09/2022 15:56:59 Checkout:03/09/2022 18:28:00 Address: [address] [place] [address] PCP: Provider, None PROVIDER INFORMATION Provider Role [...] No Known Medication Allergies PHYSICIAN DOCUMENTATION Patient: DIAEN JOYCE Age: 26 years Sex: FEMALE : [...] or bladder. States that she follows with facilitator in [place], contacted his office and they [...] intact, SARINA: -Sclera conjunctiva: Unremarkable. NECK: -Supple (ekkb-ob-apsdy): non-tender. CARD: -Rate and rhythm: Regular -Edema: [...] the patient recommended close follow-up with her facilitator and outpatient beta hCG. In the meantime no strenuous ac (more content not included)... Normal [facility] ED Note - Physicianon 2021 ED Note [...] or bladder. States that she follows with facilitator in [place] [address], contacted his office and they [...] intact, SARINA: -Sclera conjunctiva: Unremarkable. NECK: -Supple (oxgn-is-fyspj): non-tender. CARD: -Rate and rhythm: Regular -Edema: [...] the patient recommended close follow-up with her facilitator and outpatient beta hCG. In the meantime no strenuous activity, sexual activity if having any worsening issues I recommended he return to the emergency department or going directly to facilitator. Patient indicated she understood was in agreement. [...] AA >60 (more content not included)... Normal [facility] ED Note-Nursingon 03-09-2022 Beta HCG ( test) Ql (U) Patient arrives with c/o vaginal bleeding during . States she took a at home test a week ago and estimates being 5 to 6 weeks along. Patient has some mild cramping yesterday 11/07 at has since went away and light vaginal bleeding today. This is the patients second , 1 live . Normal [facility] ED Patient Summaryon 022 ED Patient Summary [facility] - Emergency Department [address] [place] [address]398 PATIENT DISCHARGE INSTRUCTIONS Patient Information Name: DIANE JOYCE Age: 26 Years Date of : 1995 Reason For Visit: Vaginal bleeding - < 20 wks ; BLEEDING, Arrival Time: 03/09/2022 15:56:59 Primary Care Physician: Provider, None Attending Physician: Adrian Rosales MD Comment: Visit Diagnosis: Diagnoses This Visit Elevated blood pressure reading (R03.0) First trimester (Z34.91) Threatened miscarriage in early (O20.0) Vaginal bleeding (N93.9) Vaginal bleeding - < 20 wks ([id number]) Prescription Information: If you have been given a prescription for narcotics, seek immediate medical attention if you have any difficulty breathing or any sudden status changes such as confusion and sleepiness. If you or anyone you know is experiencing suicidal thoughts, mental health, alcohol and/or drug addiction problems; contact the [facility] 21/05 Crisis Hotline -text 4hope to 741741. [...] documents With: Address: When: Follow-up with your facilitator for reevaluation next few days. Within 1 to 2 days Comments: Follow-up with facilitator for reevaluation next few days for reevaluation and outpatient quantitative hCG. Return immediately for any worsening issues such as increasing abdominal pains, increasing vaginal bleeding, fevers, or any other problems. 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 It is important for you to follow up with a doctor, nurse practitioner, or physician?s advertising sales assistant for ongoing care. If your symptoms [...] so we can reach you if necessary. [facility] Emergency Department has provided you with a complete list of medications post discharge. Please inform your insurance coordinator/provider of your visit and for further instruction [...] The sec (more content not included)... Normal [facility] Extra Greenon 03-09-2022 Tube Collected Yes Invalid Interpretation Code [facility] Comment on above: Performed By: #### 1 [id number], 98038002, 4588510, [id number], 13423042, 1942967, 8448327255, 3858355668, [id number], 2600388 #### [facility] (DEFAULT) [address] [place] [address] 13774 PT/PTTon 03-09-2022 INR Coag (PPP) [Relative time] 0.95 {INR} Normal 0.91-1.11 [facility] Comment on above: Performed By: #### 1 1093047, 31181086, 6750104, [id number], 31247627, 4971768, 8857400794, [id number], [id number], 3972181 #### [facility] (DEFAULT) [address] [place] [address] 14493 PT 10.3 second(s) Normal 9.7-11.8 [facility] Comment on above: Performed By: #### 1 [id number], 34180725, 9650575, [id number], 86598983, 1037241, [id number], [id number], [id number], [id number] #### [facility] (DEFAULT) [address] [place] [address]7780 PTT 34 second(s) Normal 25-35 [facility] Comment on above: Performed By: #### 1 [id number], 29977362, 9148926, [id number], 20608793, 8551902, 0278673178, 1544380707, 1259498908, 0015516 #### [facility] (DEFAULT) [address] [place] [address] 63414 RhIG.on 03-09-2022 RhIG. No. Vials RhI RhIG Candidate?: No Date to Give: [id number] RhIG Status: RhIG Ready Normal [facility] Comment on above: Performed By: #### 1 [id number], 88706433, 3600019, 2533723931, 05006918, 7837770, 3798337958, 0666349301, 5859114421, 4783122 ####[facility] (DEFAULT)[address] [place] [address] UA [id number] 03-09-2022 UA Amorph. 1+ [facility] Comment on above: Order Comment: Urina lysis Microscopic order added on by Discern Expert Rules system. Performed By: #### 5 [id number], 8606169, [id number] ####[facility] (DEFAULT)[address] [place] [address] UA Bacteria 2+ [facility] Comment on above: Order Comment: Urina lysis Microscopic order added on by Discern Expert Rules system. Performed By: #### 5 [id number], 2771052, [id number] ####[facility] (DEFAULT)[address] [place] [address] UA Mucous 3+ [facility] Comment on above: Order Comment: Urina lysis Microscopic order added on by Discern Expert Rules system. Performed By: #### 5 [id number], 7192889, [id number] ####[facility] (DEFAULT)[address] [place] [address] UA RBC >100 [facility] Comment on above: Order Comment: Urina lysis Microscopic order added on by Discern Expert Rules system. Performed By: #### 5 9751719, 6623682, [id number] ####[facility] (DEFAULT)[address] [place] [address] UA Squam Epi Many [facility] Comment on above: Order Comment: Urina lysis Microscopic order added on by Discern Expert Rules system. Result Comment: DMITRY VERGARA RN IN ER. RUN UNINALYSIS AND CULTURE ON THIS SPECIMEN. NO RECOLLECT. Performed By: #### 5 [id number], 1475743, [id number] ####[facility] (DEFAULT)[address] [place] [address] UA WBC 3-5 [facility] Comment on above: Order Comment: Urina lysis Microscopic order added on by Discern Expert Rules system. Performed By: #### 5 [id number], 8105648, [id number] ####[facility] (DEFAULT)[address] [place], [place] [id number] UA w Culture if Ind Standard on 03-09-2022 Breakpoint UA [facility] Comment on above: Performed By: #### 1 6982214, 34136867, 3742692, 3379305580, 24333863, 6818638, 2266666280, 3784103786, 7483572541, 2516257 #### [facility] (DEFAULT) [address] [place] [address] Color (U) Yellow [facility] Comment on above: Performed By: #### 1 4643285, 64005415, 8854024, 7971675693, 98573225, 6502809, 5480070346, 5124275038, 8995046810, 6670521 #### [facility] (DEFAULT) [address] [place] [address] Culture? Indicated Invalid Interpretation Code [facility] Comment on above: Result Comment: Resu lt created by rule GL_MAGR_ADD_UA_CULT Result created by rule GL_MAGR_ADD_UA_CULT Result created by rule GL_MAGR_ADD_UA_CULT1 Result created by rule GL_MAGR_ADD_UA_CULT Performed By: #### 1 9574846, 39410876, 1004801, 7642665277, 28763455, 5495164, 9840468672, 7616340604, 1734496016, 8900199 #### [facility] (DEFAULT) [address] [place], [place] [id number] Glucose (U) [Mass/Vol] Negative [facility] Comment on above: Performed By: #### 1 9830219, 37881891, 6927217, 3321860333, 35676889, 3758195, 7526551365, 9170180891, 1253145569, 6436390 #### [facility] (DEFAULT) [address] [place] [address]2778 Ketones Ql (U) 40 [facility] Comment on above: Performed By: #### 1 5383753, 68933623, 4215847, 9198445716, 43520826, 7644825, 0456524764, 1886349721, 5160551373, 5447055 #### [facility] (DEFAULT) [address] [place] [address] Micro? Indicated Invalid Interpretation Code [facility] Comment on above: Result Comment: Resu lt created by rule GL_MAGR_ADD_UA_MICRO Performed By: #### 1 8531495, 15389746, 4084913, 8358643186, 51762485, 1371906, 4089176511, 8604406412, 1483154175, 2107938 #### [facility] (DEFAULT) [address] [place] [address] UA Bilirubin Negative Normal [facility] Comment on above: Performed By: #### 1 9826434, 12353978, 2886641, 5115153463, 03589701, 6352853, 9118938063, 3928701205, 2308225337, 6328935 #### [facility] (DEFAULT) [address] [place] [address] UA Blood LARGE Abnormal NEGATIVE [facility] Comment on above: Performed By: #### 1 8376440, 64500394, 9814246, 5662148211, 38004979, 5873186, 9277819365, 3728583918, 0947456884, 9067616 #### [facility] (DEFAULT) [address] [place] [address] UA Clarity SL CLOUDY Abnormal CLEAR [facility] Comment on above: Performed By: #### 1 8819065, 49950759, 4675393, 4622183997, 05122643, 9357065, 2641199954, 6819051567, 3651238671, 2779842 #### [facility] (DEFAULT) [address] [place] [address] 81887 UA Leuk Est TRACE Abnormal NEGATIVE [facility] Comment on above: Performed By: #### 1 4354326, 11993853, 9118074, 2223171500, 90968477, 3813846, 0123899322, 5215590778, 1474518641, 5728704 #### [facility] (DEFAULT) [address] [place] [address] 41799 UA Nitrite Negative Normal NEGATIVE [facility] Comment on above: Performed By: #### 1 2813964, 92089948, 7898568, 2452549550, 19193279, 5159146, 2764557058, 1238336448, 9764800964, 1865837 #### [facility] (DEFAULT) [address] [place] [address]60 UA pH 6.5 Normal 5-8 [facility] Comment on above: Performed By: #### 1 9296294, 35588383, 7834172, 1831371317, 21774577, 9484375, 3249171206, 5975791044, 1244977696, 6236901 #### [facility] (DEFAULT) [address] [place] [address]609 UA Protein Negative Normal NEGATIVE [facility] Comment on above: Performed By: #### 1 5153239, 24996638, 8939325, 8636338933, 04618267, 1142132, 2622685902, 2915335739, 9041198604, 9554733 #### [facility] (DEFAULT) [address] [place] [address] 02795 UA Spec Grav 1.015 Normal 1.001-1.035 [facility] Comment on above: Performed By: #### 1 6246738, 53073261, 3845645, 3693439303, 87673903, 3383980, 5517898732, 4878710910, 8236432898, 1099374 #### [facility] (DEFAULT) [address] [place] [address]85 UA Urobilinogen 0.2 mg/dL Normal 0.2-1.0 [facility] Comment on above: Performed By: #### 1 6249866, 16939373, 6975942, 4896193395, 53991558, 7156919, 3777217365, 8303178959, 6865587951, 7445053 #### [facility] (DEFAULT) [address] [place] [address] Urine Source Clean Catch [facility] Comment on above: Performed By: #### 1 3962180, 17548963, 9370483, 9456464810, 79532251, 4691181, 7458561992, 1632761805, 7725130077, 8118673 #### [facility] (DEFAULT) [address] [place] [address] 09571 US 1st Trimesteron 03-09-2022 US 1st Trimester [...] Sebastian Guzman 03/09/22 6:10 pm Technologist: PM [facility] US Transvaginalon 03-09-2022 US Transvaginal EXAM: [...] Guzman 03/09/22 6:10 pm Technologist: PM Normal [facility] hCG Quantitativeon 2 hCG Quantitative 7.1 mIU/mL High 0.0-0.6 [facility] Comment on above: Result Comment: Post -Menopausal Reference Range is: 0.1-11.6 mIU/mL Performed By: #### 1 3780772, 01606037, 4137375, 4308558414, 08850828, 7981905, 7938701387, 6588389466, 5528829424, 2044908 #### [facility] (DEFAULT) [address] [id number] Vital Signs Date Time Vital Sign Value Performing Clinician Facility 12-13-2023 15:00-0500 Body mass index (BMI) [Ratio] 46.69 kg/m2 [facility] Nurse [facility] 12-13-2023 15:00-0500 Body weight 123.38 kg [facility] Nurse [facility] 12-13-2023 15:00-0500 Diastolic blood pressure 78 mm[Hg] [facility] 12-13-2023 15:00-0500 Systolic blood pressure 128 mm[Hg] [facility] 05-15-2023 18:30-0400 Body height 161.29 cm Linsey Witt Other [employer] Other 05-15-2023 18:30-0400 Body mass index (BMI) [Ratio] 43.41 kg/m2 Linsey Witt Other [employer] Other 05-15-2023 18:30-0400 Body temperature 99.2 [degF] Linsey Witt Other [employer] Other 05-15-2023 18:30-0400 Body weight 112.95 kg Linsey Witt Other [employer] Other 05-15-2023 18:30-0400 Respiratory rate 18 /min Linsey Witt Other [employer] Other 05-15-2023 18:30-0400 SaO2% (BldA) [Mass fraction] 99 % Linsey Witt Other [employer] Other 05-09-2023 11:00-0400 Body height 161.29 cm Gissel Santana Other [employer] Other 05-09-2023 11:00-0400 Body mass index (BMI) [Ratio] 43.59 kg/m2 Gissel Santana Other [employer] Other 05-09-2023 11:00-0400 Body weight 113.4 kg Gissel Santana Other [employer] Other 05-09-2023 11:00-0400 Diastolic blood pressure 83 mm[Hg] Gissel Santana Other [employer] Other 05-09-2023 11:00-0400 Systolic blood pressure 119 mm[Hg] Gissel Santana Other [employer] Other 04-12-2023 09:00-0400 Body height 161.29 cm Gissel Santana Other [employer] Other 04-12-2023 09:00-0400 Body mass index (BMI) [Ratio] 43.59 kg/m2 Gissel Santana Other [employer] Other 04-12-2023 09:00-0400 Body weight 113.4 kg Gissel Santana Other [employer] Other 04-12-2023 09:00-0400 Diastolic blood pressure 88 mm[Hg] Gissel Santana Other [employer] Other 04-12-2023 09:00-0400 Systolic blood pressure 129 mm[Hg] Gissel Santana Other [employer] Other 10-11-2022 02:06-0500 Body weight 111.[address] ESTELLA MIN . [facility] Comment on above: Performed By: #### AFPMAT #### [facility] [address] [address] [address] Alexsander Dickinson Encounters Encounter Date Encounter Type Care Provider Facility Start: 01-14-2024 End: 01-14-2024 ambulatory ESTELLA MIN Not Available Start: 12-13-2023 End: 12-13-2023 ambulatory ESTELLA MIN Not Available Start: 12-13-2023 End: 12-13-2023 Office outpatient visit 5 minutes [facility] Nurse [facility] Comment on above: GA: 9w0d Start: 11-06-2023 End: 11-06-2023 ambulatory Gissel Santana Other [employer] Other Start: 11-06-2023 Encounter by donald Santana [facility] Start: 05-22-2023 End: 05-22-2023 ambulatory Olive Howard Other [employer] Other Start: 05-22-2023 Telephone encounter Olive GARC[facility] Start: 05-15-2023 End: 05-15-2023 ambulatory Linsey Steiner Witt Facility:[facility] Start: 05-15-2023 End: 05-15-2023 Departed Referred TERESA Witt Work Phone: [facility] [place] Work Phone: Start: 05-15-2023 End: 05-15-2023 ambulatory LINING IRONERGideon Witt Work Phone: [facility] Work Phone: Start: 05-15-2023 Office outpatient vi sit 25 minutes Linsey Witt [facility] Start: 05-09-2023 End: 05-09-2023 ambulatory Gissel Santana Other [employer] Other Start: 05-09-2023 Office outpatient vi sit 15 minutes Gissel Santana [facility] Start: 04-12-2023 End: 04-12-2023 ambulatory Gissel Santana Other [employer] Other Start: 04-12-2023 Encounter for genera l adult medical examination without abnormal findings Gissel Santana [facility] Start: 04-12-2023 Periodic preventive med est patient 18-39 yrs Gissel Santana [facility] Start: 02-15-[address] ESTELLA MIN . [...] Facility:[facility] Start: 01-15-2023 End: 01-15-[address] GISESL SANTANA Facility:[facility] Start: 01-11-2023 End: 01-11-2023 ambulatory [...] 07-13-2022 End: 07-14-[address] GISSEL SANTANA Facility: Procedures Date Procedure Procedure Detail Performing Clinician Start: 12-13-2023 Urnls dip stick/tabl et rgnt non-auto w/o micrscp Estella Min DO Work Phone: Start: 02-01-2023 Extraction of Produc ts of Conception, Low Cervical, Open Approach DR ESTELLA MIN . Throat culture Linsey Witt Other Plan of Treatment Date Care Activity Detail Author Start: 01-14-2024 End: 01-14-2024 Patient encounter procedure 01/14/2024 8:30 AM EDT Routine [facility] [address] [place] [id number] Estella Min, [address] [place] [address] [facility] Start: 12-13-2023 End: 12-13-2024 ABO/Rh ABO/Rh Lab Routine Missed menses Expected: 12/13/2023 (Approximate), Expires: 12/13/2024 [facility] Comment on above: Expected: 12/13/2023 (Approximate), Expires: 12/13/2024 Start: 12-13-2023 End: 12-13-2024 Blood type and Indirect antibody screen panel - Blood Type and screen Lab Routine Missed menses Expected: 12/13/2023 (Approximate), Expires: 12/13/2024 [facility] Work Phone: Comment on above: Expected: 12/13/2023 (Approximate), Expires: 12/13/2024 Start: 12-13-2023 End: 12-13-2024 Thyroid panel with tsh Thyroid panel with tsh Lab Routine Missed menses Expected: 12/13/2023 (Approximate), Expires: 12/13/2024 [facility] Comment on above: Expected: 12/13/2023 (Approximate), Expires: 12/13/2024 Start: 12-13-2023 End: 12-13-2024 US Pelvis transvaginal US OB transvaginal Imaging Routine Missed menses Expected: 12/13/2023 (Approximate), Expires: 12/13/2024 [facility] Comment on above: Expected: 12/13/2023 (Approximate), Expires: 12/13/2024 Start: 05-15-2023 Throat culture Throat Culture [facility] Bacteria identified in Urine by Culture Urine culture Microbiology Routine Missed menses Ordered: 12/13/2023 [facility] Comment on above: Ordered: 12/13/2023 CBC W Auto Different ial panel - Blood CBC and differential Lab Routine Missed menses Ordered: 12/13/2023 [facility] Comment on above: Ordered: 12/13/2023 Hemoglobin A1c/Hemoglobin.total in Blood Hemoglobin A1c Lab Routine Missed menses Ordered: 12/13/2023 [facility] Comment on above: Ordered: 12/13/2023 Hepatitis B virus surface Ag [Presence] in Serum or Plasma by Immunoassay Hepatitis B surface antigen Lab Routine Missed menses Ordered: 12/13/2023 [facility] Comment on above: Ordered: 12/13/2023 Hepatitis C virus Ab [Presence] in Serum or Plasma by Immunoassay Hepatitis C antibody Lab Routine Missed menses Ordered: 12/13/2023 [facility] Comment on above: Ordered: 12/13/2023 HIV-1/HIV-2 antigen/antibody combination immunoassay HIV-1 and HIV-2 antibodies Lab Routine Missed menses Ordered: 12/13/2023 [facility] Comment on above: Ordered: 12/13/2023 Reagin Ab [Presence] in Serum by RPR RPR Lab Routine Missed menses Ordered: 12/13/2023 [facility] Comment on above: Ordered: 12/13/2023 Rubella antibody, IgG Rubella an tibody, IgG Lab Routine Missed menses Ordered: 12/13/2023 [facility] Comment on above: Ordered: 12/13/2023 Payers Date Payer Category Payer Unknown BCBS BCBS xxxxxx [id number] 2020-Present [phone] [address] [place] [address] [id number]. [id number] 1994 Unknown [id number] 2.16.840.1.239202.3.579.2.593 1994 Unknown [id number] 2.16.840.1.674827.3.579.2.593 1994 Unknown [id number] 2.16.840.1.139559.3.579.2.593 1994 Unknown [id number] 2.16.840.1.144643.3.579.2.593 1994 Unknown [id number] 2.16.840.1.363194.3.579.2.593 1994 Unknown [id number] 2.16.840.1.691319.3.579.2.593 1994 Unknown [id number] 2.16.840.1.458542.3.579.2.593 1994 Unknown [id number] 2.16.840.1.505983.3.579.2.593 1994 Unknown [id number] 2.16.840.1.421959.3.579.2.593 1994 Unknown [id number] 2.16.840.1.533877.3.579.2.593 1994 Unknown [id number] 2.16.840.1.871294.3.579.2.593 1994 Unknown [id number] 2.16.840.1.280897.3.579.2.593 1994 Unknown [id number] 2.16.840.1.306807.3.579.2.593 1994 Unknown [id number] 2.16.840.1.722317.3.579.2.593 1994 Unknown [id number] 2.16.840.1.444750.3.579.2.593 1994 Unknown [id number] 2.16.840.1.225732.3.579.2.593 1994 Unknown [id number] 2.16.840.1.480504.3.579.2.593 1994 Unknown [id number] 2.16.840.1.334685.3.579.2.593 1994 Unknown [id number] 2.16.840.1.525190.3.579.2.593 1994 Unknown [id number] 2.16.840.1.286945.3.579.2.593 1994 Unknown [id number] 2.16.840.1.673726.3.579.2.593 1994 Unknown [id number] 2.16.840.1.411346.3.579.2.593 1994 Unknown [id number] 2.16.840.1.820061.3.579.2.593 1994 Unknown [id number] 2.16.840.1.243565.3.579.2.593 1994 Unknown [id number] 2.16.840.1.571387.3.579.2.1259 1994 Unknown [id number] 2.16.840.1.111787.3.579.2.1259 1959 Self-pay 1959 Unknown [id number] Unknown [id number] 2.16.840.1.739650.3.579.2.593 Unknown [id number] 2.16.840.1.397820.3.579.2.531 Social History Date Type Detail Facility Unknown if ever smoked [facility] Other Start: 03-12-2023 Sex Assigned At N [facility] Other Start: 1995 Sex Assigned At Female F [facility] Start: 03-12-2023 Tobacco smoking status NHIS Never smoked tobacco [facility] Start: 03-12-2023 Tobacco use and exposure Smokeless tobacco non-user [facility] Start: 12-13-2023 Alcohol intake Lifetime non-d иван (finding) [facility] Start: 03-12-2023 History of Social function [facility] Start: 10-25-2023 [facility] Start: 1995 Sex Assigned At Not on file [facility] Clinical Notes 03-09-2022 to 12-13-2023 eMenakshi Rosenthal MA - 12/13/2023 2:30 PM EST [...] or undercooked meat, and stay away from [facility]. Patient has also been advised to [...] Meenakshi Rosenthal MA documented in this encounter [facility] 05-15-2023 Evaluation note Encounter Date Diagnosis Assessment [...] understanding and is agreeable to treatment plan. [employer] Other 07-12-2023 Evaluation note* Encounter Date Diagnosis Assessment Notes Treatment Notes Treatment Clinical Notes Apr, Anxiety disorder, unspecified (ICD-10 - F41.9) Pt states that she, and her , agree that she is doing better on the medication. Continues to have stress, but is dealing more appropriately. Would like to continue this med and this dose. f/u6 months, sooner if needed. [employer] [employer] Other 06-15-2023 Evaluation note* Encounter Date Diagnosis [...] help for overwhelm. followup in 1 month [employer] 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 Other History general Narrative - Reported* Type Description Date Medical History Anxiety disorder, unspecified Surgical History C-sect 2018 Surgical History C-sect 2022 Hospitalization History SEE SURGICAL HX [employer] Other History general Narrative - Reported* Type Description Date Medical History Anxiety disorder, unspecified Medical History Gestational diabetes Surgical History C-sect 2018 Surgical History C-sect 2022 Hospitalization History SEE SURGICAL HX [employer] Other Summary Purpose Family History No Family [...] CREATED AUTHOR AUTHOR'S ORGANIZ ATION [facility]/15/[address] [facility] DATE CREATED AUTHOR AUTHOR'S ORGANIZ ATION 05/24/2023 [facility] DATE CREATED AUTHOR AUTHOR'S ORGANIZ ATION 01/14/2024 [facility] EPIC REASON FOR VISIT (unrecogniz ed section and content) Reason Comments Amenorrhea Care Teams (unrecognized sec tion and content) Team Status: Inactive Member Role Status Dates Linsey Witt APRN Attending Provider Active Library Assistant Relationship Specialty Start Date End Date Gissel Santana MD [address] [place] [address] PCP - General Family Medicine 04/02/23 Goals [...] BE BASED ON THE PRIMARY CLINICAL RECORDS. [employer] provides no warranty or guarantee of the accuracy or completeness of information in this document.
[2024-02-13 00:07] LABS: AFP Value 30.5 ng/mL (.); Gest. Age on Collection Date 17.6 weeks (.); Insulin Dep Diabetes No (.); Maternal Age At EDD 29.9 yr (.); OSBR Risk 1 IN 10000 (.); Results Report (.)
== END 2024-02-11 10:54 | disposition home or self-care (01) ==
LOC: LAB 10:54
PROVIDERS: Visit Provider Obstetrics & Gynecology
DX: Z34.92 Encounter for supervision of normal pregnancy, unspecified, second trimester (principal); Z3A.17 17 weeks gestation of pregnancy
CPT/HCPCS: 36415; 82105; G0145

== ENCOUNTER 2024-02-11 20:16 | Outpatient (REF) | payer BC, SELFPAY ==
--- OUTSIDE RECORDS SUMMARY | 2024-02-11 20:27 | XMS_ITS | CCD ---
Author Organization [facility] Care Team Providers Care Phlebotomy Manager Name Role Phone MECHELLE ., DR SORIA [...] Unavailable MECHELLE ., DR SORIA Attending Unavailable MCEHELLE ., DR SORIA Admitting Unavailable MECHELLE ., DR SORIA Attending Unavailable MECHELLE ., DR SORIA Admitting Unavailable Keeling, Sebastian Consulting Unavailable SANTANA, DR GISSEL Teresa [...] Primary Care Provider ESTELLA MIN Attending Unavailable ESTELLA MIN Attending Unavailable Medications Current Medications [...] Interpretation and review of laboratory results Abnormal [facility]ca re Preg Test, Ur Positive [facility] Urinalysis macro (dipstick) panel (U)on 12-13-2023 Bilirubin, UA Negative Negative - 4(70) +++ mg/dL [facility] Blood, UA Negative Negative - 50 Sal/mcL [facility] Clarity, UA Clear [facility] re Color, UA Yellow [facility]KO-SU e Glucose, UA Negative Negative - 1999(110) ++++ mg/dL [facility] Interpretation and review of laboratory results Abnormal [facility] Healthmd re Ketones, UA Positive Negative - 160(16) ++++ mg/dL [facility] Leukocytes, UA Negative Negative - 500+++ Lizzy/mcL [facility] Nitrite, UA Negative Negative - Positive [facility] pH, UA 7.0 5 - 9 [facility] Protein, UA Positive Negative - 1999(20) ++++ mg/dL [facility] Spec Grav, UA 1.030 1 - 1.03 [facility] Urobilinogen, UA 0.2 0.2 - 12 mg/dL [facility] Quick Strepon 05-15-2023 S. pyogenes Org specific cx Ql (Throat) Negative [facility] [employer] Other Quick Strep [facility] [employer] Other Throat Cultureon 05-15-2023 Throat culture Heavy Normal Respiratory John 2 Days PERFORMED BY: [address] [id number] PATHOLOGIST PLANNING SUPERVISOR ARACELI HAYWOOD M.D. Normal [facility] Comment on above: Performed By: #### C UT #### [address] GROUP B STREP CULTUREon 01-27 S. agalactiae [...] F Tetracycline <=0.25 S F Normal [facility] Comment on above: Performed By: #### A FPMAT #### [facility] [address] [place] [address] Dr. Alexsander Dickinson CBC AUTO DIFFon 02-02-2023 BASO # 0.0 103/ul Normal 0.0-0.1 [facility] Comment on above: Performed By: #### C BC #### [facility] [address] [place] [address] Dr. Alexsander Dickinson Basophils/100 WBC (Bld) 0.2 % Normal 0.2-2.0 [facility] Comment on above: Performed By: #### C BC #### [facility] [address] [place] [address] Dr. Alexsander Dickinson EO # 0.0 103/ul Normal 0.0-0.7 [facility] Comment on above: Performed By: #### C BC #### [facility] [address] [place] [address] Dr. Alexsander Dickinson Eosinophils/100 WBC (Bld) 0.0 % Critically low 0.9-7.0 [facility] Comment on above: Performed By: #### C BC #### [facility] [address] [place] [address] Dr. Alexsander Dickinson Erythrocyte distribution width (RBC) [Ratio] 12.5 % Normal 11.0-15.0 [facility] Comment on above: Performed By: #### C BC #### [facility] [address] [place] [address] Dr. Alexsander Dickinson Hematocrit (Bld) [Volume fraction] 32.9 % Critically low 36.0-48.0 [facility] Comment on above: Performed By: #### C BC #### [facility] [address] [place] [address] Dr. Alexsander Dickinson Hemoglobin (Bld) [Mass/Vol] 10.7 g/dL Critically low 12.0-16.0 [facility] Comment on above: Performed By: #### C BC #### [facility] [address] [place] [address] Dr. Alexsander Dickinson IG # 0.12 10e3/ul Critically high 0.00-0.03 [facility] Comment on above: Performed By: #### C BC #### [facility] [address] [place] [address] Dr. Alexsander Dickinson IG % 0.7 % Critically high 0.0-0.5 [facility] Comment on above: Performed By: #### C BC #### [facility] [address] [place] [address] Dr. Alexsander Dickinson LYMPH # 1.1 103/ul Critically low 1.2-3.[address] [facility] Comment on above: Performed By: #### C BC #### [facility] [address] [place] [address] Dr. Alexsander Dickinson Lymphocytes/100 WBC (Bld) 6.4 % Critically low 20.5-60.0 [facility] Comment on above: Performed By: #### C BC #### [facility] [address] [place] [address] Dr. Alexsander Dickinson MANUAL DIFF REQ NO Normal [facility] Comment on above: Performed By: #### C BC #### [facility] [address] [place] [address] Dr. Alexsander Dickinson MCH (RBC) [Entitic mass] 26.1 pg Critically low 26.7-34.0 [facility] Comment on above: Performed By: #### C BC #### [facility] [address] [place] [address] Dr. Alexsander Dickinson MCHC (RBC) [Mass/Vol] 32.5 g/dL Normal 29.9-35.2 [facility] Comment on above: Performed By: #### C BC #### [facility] [address] [place] [address] Dr. Alexsander Dickinson MCV (RBC) [Entitic vol] 80.2 fL Critically low 81.0-99.0 [facility] Comment on above: Performed By: #### C BC #### [facility] [address] [place] [address] Dr. Alexsander Dickinson MONO # 0.4 103/ul Normal 0.3-0.8 [facility] Comment on above: Performed By: #### C BC #### [facility] [address] [place] [address] Dr. Alexsander Dickinson Monocytes/100 WBC (Bld) 2.1 % Normal 1.7-12.0 [facility] Comment on above: Performed By: #### C BC #### [facility] [address] [place] [address] Dr. Alexsander Dickinson NEUT # 15.5 103/ul Critically high 1.4-6.5 [facility] Comment on above: Performed By: #### C BC #### [facility] [address] [place] [address] Dr. Alexsander Dickinson Neutrophils/100 WBC (Bld) 90.6 % Critically high 43.0-75.0 [facility] Comment on above: Performed By: #### C BC #### [facility] [address] [place] [address] Dr. Alexsander Dickinson Platelet mean volume (Bld) [Entitic vol] 10.7 fL Normal 9.5-13.5 [facility] Comment on above: Performed By: #### C BC #### [facility] [address] [place] [address] Dr. Alexsander Dickinson PLT 310 103/ul Normal 150-450 [facility] Comment on above: Performed By: #### C BC #### [facility] [address] [place] [address] Dr. Alexsander Dickinson RBC 4.10 106/ul Critically low 4.20-5.40 [facility] Comment on above: Performed By: #### C BC #### [facility] [address] [place] [address] Dr. Alexsander Dickinson WBC 17.1 103/ul Critically high 4.0-11.0 [facility] Comment on above: Performed By: #### C BC #### [facility] [address] [place] [address] Dr. Alexsander Dickinson CBC AUTO DIFFon 02-01-2023 BASO # 0.0 103/ul Normal 0.0-0.1 [facility] Comment on above: Performed By: #### A 1C #### [facility] [address] [place] [address] Dr. Alexsander Dickinson Basophils/100 WBC (Bld) 0.2 % Normal 0.2-2.0 [facility] Comment on above: Performed By: #### A 1C #### [facility] [address] [place] [address] Dr. Alexsander Dickinson EO # 0.0 103/ul Normal 0.0-0.7 [facility] Comment on above: Performed By: #### A 1C #### [facility] [address] [place] [address] Dr. Alexsander Dickinson Eosinophils/100 WBC (Bld) 0.4 % Critically low 0.9-7.0 [facility] Comment on above: Performed By: #### A 1C #### [facility] [address] [place] [address] Dr. Alexsander Dickinson Erythrocyte distribution width (RBC) [Ratio] 12.9 % Normal 11.0-15.0 [facility] Comment on above: Performed By: #### A 1C #### [facility] [address] [place] [address] Dr. Alexsander Dickinson Hematocrit (Bld) [Volume fraction] 34.2 % Critically low 36.0-48.0 [facility] Comment on above: Performed By: #### A 1C #### [facility] [address] [place] [address] Dr. Alexsander Dickinson Hemoglobin (Bld) [Mass/Vol] 11.4 g/dL Critically low 12.0-16.0 [facility] Comment on above: Performed By: #### A 1C #### [facility] [address] [place] [address] Dr. Alexsander Dickinson IG # 0.04 10e3/ul Critically high 0.00-0.03 [facility] Comment on above: Performed By: #### A 1C #### [facility] [address] [place] [address] Dr. Alexsander Dickinson IG % 0.5 % Normal 0.0-0.5 [facility] Comment on above: Performed By: #### A 1C #### [facility] [address] [place] [address] Dr. Alexsander Dickinson LYMPH # 2.1 103/ul Normal 1.2-3.8 [facility] Comment on above: Performed By: #### A 1C #### [facility] [address] [place] [address] Dr. Alexsander Dickinson Lymphocytes/100 WBC (Bld) 23.9 % Normal 20.5-60.0 [facility] Comment on above: Performed By: #### A 1C #### [facility] [address] [place] [address] Dr. Alexsander Dickinson MANUAL DIFF REQ NO Normal [facility] Comment on above: Performed By: #### A 1C #### [facility] [address] [place] [address] Dr. Alexsander Dickinson MCH (RBC) [Entitic mass] 27.0 pg Normal 26.7-34.0 [facility] Comment on above: Performed By: #### A 1C #### [facility] [address] [place] [address] Dr. Alexsander Dickinson MCHC (RBC) [Mass/Vol] 33.3 g/dL Normal 29.9-35.2 [facility] Comment on above: Performed By: #### A 1C #### [facility] [address] [place] [address] Dr. Alexsander Dickinson MCV (RBC) [Entitic vol] 81.0 fL Normal 81.0-99.0 [facility] Comment on above: Performed By: #### A 1C #### [facility] [address] [place] [address] Dr. Alexsander Dickinson MONO # 0.5 103/ul Normal 0.3-0.8 [facility] Comment on above: Performed By: #### A 1C #### [facility] [address] [place] [address] Dr. Alexsander Dickinson Monocytes/100 WBC (Bld) 6.0 % Normal 1.7-12.0 [facility] Comment on above: Performed By: #### A 1C #### [facility] [address] [place] [address] Dr. Alexsander Dickinson NEUT # 5.9 103/ul Normal 1.4-6.5 [facility] Comment on above: Performed By: #### A 1C #### [facility] [address] [place] [address] Dr. Alexsander Dickinson Neutrophils/100 WBC (Bld) 69.0 % Normal 43.0-75.0 [facility] Comment on above: Performed By: #### A 1C #### [facility] [address] [place] [address] Dr. Alexsander Dickinson Platelet mean volume (Bld) [Entitic vol] 10.5 fL Normal 9.5-13.5 [facility] Comment on above: Performed By: #### A 1C #### [facility] [address] [place] [address] Dr. Alexsander Dickinson PLT 275 103/ul Normal 150-450 [facility] Comment on above: Performed By: #### A 1C #### [facility] [address] [place] [address] Dr. Alexsander Dickinson RBC 4.22 106/ul Normal 4.20-5.40 [facility] Comment on above: Performed By: #### A 1C #### [facility] [address] [place] [address] Dr. Alexsander Dickinson WBC 8.6 103/ul Normal 4.0-11.0 [facility] Comment on above: Performed By: #### A 1C #### [facility] [address] [place] [address] Dr. Alexsander Dickinson LDHon 02-01-2023 LDH 124 U/L Normal 81-234 [facility] Comment on above: Performed By: #### C MP, LDH, URIC #### [facility] [address] [place] [address] Dr. Alexsander Dickinson POINT OF CARE GLUCOSEon Glucose [Mass/Vol] 98 mg/dL Normal 74-106 [facility] Comment on above: Performed By: #### A 1C #### [facility] [address] [place] [address] Dr. Alexsander Dickinson PROF 14(COMP METB)on 023 Albumin [Mass/Vol] 2.5 g/dL Critically low 3.4-5.0 [facility] Comment on above: Performed By: #### C MP, LDH, URIC #### [facility] [address] [place] [address] Dr. Alexsander Dickinson Albumin/Globulin [Mass ratio] 0.6 {ratio} Normal [facility] Comment on above: Performed By: #### C MP, LDH, URIC #### [facility] [address] [place] [address] Dr. Alexsander Dickinson ALP [Catalytic activity/Vol] 138 U/L Critically high 46-116 [facility] Comment on above: Performed By: #### C MP, LDH, URIC #### [facility] [address] [place] [address] Dr. Alexsander Dickinson ALT [Catalytic activity/Vol] 15 U/L Normal 14-59 [facility] Comment on above: Performed By: #### C MP, LDH, URIC #### [facility] [address] [place] [address] Dr. Alexsander Dickinson Anion gap [Moles/Vol] 14.5 mmol/L Normal [facility] Comment on above: Performed By: #### C MP, LDH, URIC #### [facility] [address] [place] [address] Dr. Alexsander Dickinson AST [Catalytic activity/Vol] 8 U/L Critically low 15-37 [facility] Comment on above: Performed By: #### C MP, LDH, URIC #### [facility] [address] [place] [address] Dr. Alexsander Dickinson Bilirubin [Mass/Vol] 0.2 mg/dL Normal 0.2-1.0 [facility] Comment on above: Performed By: #### C MP, LDH, URIC #### [facility] [address] [address] [address] Alexsander Dickinson Calcium [Mass/Vol] 8.6 mg/dL Normal 8.5-10.1 [facility] Comment on above: Performed By: #### C MP, LDH, URIC #### [facility] [address] [place] [address] Dr. Alexsander Dickinson Chloride [Moles/Vol] 103 mmol/L Normal 98-107 [facility] Comment on above: Performed By: #### C MP, LDH, URIC #### [facility] [address] [place] [address] Dr. Alexsander Dickinson CO2 [Moles/Vol] 23.7 mmol/L Normal 21.0-32.0 [facility] Comment on above: Performed By: #### C MP, LDH, URIC #### [facility] [address] [place] [address] Dr. Alexsander Dickinson Creatinine [Mass/Vol] 0.61 mg/dL Normal 0.55-1.02 [facility] Comment on above: Performed By: #### C MP, LDH, URIC #### [facility] [address] [place] [address] Dr. Alexsander Dickinson EGFR-AF CAMEROONIAN >60 Normal >=60 [facility] Comment on above: Performed By: #### C MP, LDH, URIC #### [facility] [address] [place] [address] Dr. Alexsander Dickinson EGFR-NON AF CAMEROONIAN >60 Normal >=60 [facility] Comment on above: Performed By: #### C MP, LDH, URIC #### [facility] [address] [place] [address] Dr. Alexsander Dickinson Globulin (S) [Mass/Vol] 4.1 g/dL Normal [facility] Comment on above: Performed By: #### C MP, LDH, URIC #### [facility] [address] [address] [address] Alexsander Dickinson Glucose [Mass/Vol] 123 mg/dL Critically high 74-106 [facility] Comment on above: Performed By: #### C MP, LDH, URIC #### [facility] [address] [place] [address] Dr. Alexsander Dickinson Potassium [Moles/Vol] 4.2 mmol/L Normal 3.5-5.1 [facility] Comment on above: Performed By: #### C MP, LDH, URIC #### [facility] [address] [place] [address] Dr. Alexsander Dickinson Protein [Mass/Vol] 6.6 g/dL Normal 6.4-8.2 [facility] Comment on above: Performed By: #### C MP, LDH, URIC #### [facility] [address] [place] [address] Dr. Alexsander Dickinson Sodium [Moles/Vol] 137 mmol/L Normal 136-145 [facility] Comment on above: Performed By: #### C MP, LDH, URIC #### [facility] [address] [place] [address] Dr. Alexsander Dickinson Urea nitrogen [Mass/Vol] 5.0 mg/dL Critically low 7.0-18.0 [facility] Comment on above: Performed By: #### C MP, LDH, URIC #### [facility] [address] [place] [address] Dr. Alexsander Dickinson Urea nitrogen/Creatinine [Mass ratio] 8.2 mg/mg Normal [facility] Comment on above: Performed By: #### C MP, LDH, URIC #### [facility] [address] [place] [address] Dr. Alexsander Dickinson PROTIMEon 02-01-2023 INR Coag (PPP) [Relative time] {INR} Normal [facility] Comment on above: Performed By: #### H BSANS #### [facility] [address] [place] [address] Dr. Alexsander Dickinson INR GUIDELINES SEE BELOW Normal [facility] Comment on above: Result Comment: CAROLEE RED INR: 2.0 - 3.0 CONDITIONS NOT LISTED BELOW 2.5 - 3.5 FOR PROSTHETIC HEART VALVE REPLACEMENT 2.5 - 3.5 RECURRENT THROMBOSIS Performed By: #### H BSANS #### [facility] [address] [place] [address] Dr. Alexsander Dickinson PT Coag (PPP) [Time] 9.2 s Normal 9.0-11.6 [facility] Comment on above: Performed By: #### H BSANS #### [facility] [address] [place] [address] Dr. Alexsander Dickinson PTTon 02-01-2023 aPTT Coag (Bld) [Time] 25.9 s Normal 22.3-36.2 [facility] Comment on above: Performed By: #### H BSANS #### [facility] [address] [place] [address] Dr. Alexsander Dickinson TYPE AND SCREENon 02-01-2023 TYPE AND SCREEN Negative Normal [facility] Comment on above: Performed By: #### A FPMAT #### [facility] [address] [place] [address] Dr. Alexsander Dickinson URIC ACID SERUMon 02-01-2023 Urate [Mass/Vol] 5.5 mg/dL Normal 2.6-6.0 [facility] Comment on above: Performed By: #### C MP, LDH, URIC #### [facility] [address] [place] [address] Dr. Alexsander Dickinson US PREG BIOPHY W [...] by: DEE GALLEGOS Date: 2023-02-01 15:04 Normal [facility] US PREG BIOPHY W NON STRESSo n [...] by: SEBASTIAN HENRY Date: 2023-01-25 15:18 Normal [facility] US PREG BIOPHY W NON STRESSo n [...] by: DEE GALLEGOS Date: 2023-01-19 06:16 Normal [facility] US PREG BIOPHY W NON STRESSo n [...] DEE GALLEGOS Date: 2023-01-11 15:38 Normal [facility] US PREG GROWTHon 01-11-2023 US PREG GROWTH [...] DEE GALLEGOS Date: 2023-01-11 16:42 Normal [facility] GTT 3 HR PREGon 12-01-2022 Glucose [Mass/Vol] 104 mg/dL Normal 74-106 [facility] Comment on above: Performed By: #### A 1C #### [facility] [address] [place] [address] Dr. Alexsander Dickinson Glucose [Mass/Vol] 182 mg/dL Normal [facility] Comment on above: Performed By: #### A 1C #### [facility] [address] [address] [address] Alexsander Dickinson Glucose [Mass/Vol] 114 mg/dL Normal [facility] Comment on above: Performed By: #### A 1C #### [facility] [address] [address] [address] Alexsander Dickinson Glucose [Mass/Vol] 73 mg/dL Normal [facility] Comment on above: Performed By: #### A 1C #### [facility] [address] [address] [address] Alexsander Dickinson PAP ACOG PANEL 2: 20 to 28on 11-18-2022 . . Normal [facility] Comment on above: Performed By: #### A 1C #### [facility] [address] [place] [address] Dr. Alexsander Dickinson Age Gdln ACOG Testing [facility] Comment on above: Performed By: #### A 1C #### [facility] [address] [place] [address] Dr. Alexsander Dickinson DIAGNOSIS: Comment [facility] Comment on above: Result Comment: NEGA TIVE FOR INTRAEPITHELIAL LESION OR MALIGNANCY. Performed By: #### A 1C #### [facility] [address] [address] [address] Alexsander Dickinson Methodology: Comment [facility] Comment on above: Result Comment: This liquid based ThinPrep(R) pap test was screened with the use of an image guided system. Performed By: #### A 1C #### [facility] [address] [place] [address] Dr. Alexsander Dickinson Note: Comment [facility] Comment on above: Result Comment: The Pap smear is a screening test designed to aid in the detection of premalignant and malignant conditions of the uterine cervix. It is not a diagnostic procedure and should not be used as the sole means of detecting cervical cancer. Both false-positive and false-negative reports do occur. . Performed By: #### A 1C #### [facility] [address] [place] [address] Dr. Alexsander Dickinson Performed by: Comment Normal [facility] Comment on above: Result Comment: Cici Clarke, Complaint Manager (ASCP) Performed By: #### A 1C #### [facility] [address] [place] [address] Dr. Alexsander Dickinson Reflex Criteria: Comment [facility] Comment on above: Result Comment: The HPV DNA reflex criteria were not met with this specimen result therefore, no HPV testing was performed. . Performed By: #### A 1C #### [facility] [address] [place] [address] Dr. Alexsander Dickinson Specimen adequacy: Comment [facility] Comment on above: Result Comment: Sati sfactory for evaluation. No endocervical component is identified. Performed By: #### A 1C #### [facility] [address] [place] [address] Dr. Alexsander Dickinson CHLAMYDIA/GONOCOCCUS ZUNILDA ( AB/URINE/PAPon 11-17-2022 Chlamydia trachomatis, ZUNILDA Negative Normal Negative [facility] Comment on above: Performed By: #### A 1C #### [facility] [address] [place] [address] Dr. Alexsander Dickinson Neisseria gonorrhoeae, ZUNILDA Negative Normal Negative [facility] Comment on above: Performed By: #### A 1C #### [facility] [address] [place] [address] Dr. Alexsander Dickinson VAGINITIS/VAGINOSIS DNA PROB Jose De Jesus 11-16-2022 Reema species Negative Normal Negative [facility] Comment on above: Performed By: #### V AGINT #### [facility] [address] [place] [address] Dr. Alexsander Dickinson Gardnerella vaginalis Negative Normal Negative [facility] Comment on above: Performed By: #### V AGINT #### [facility] [address] [place] [address] Dr. Alexsander Dickinson Trichomonas vaginalis Negative Normal Negative [facility] Comment on above: Performed By: #### V AGINT #### [facility] [address] [place] [address] Dr. Alexsander Dickinson US PREG INCOMPLETE ANATOMYon 11-14-2022 PREG INCOMPLETE ANATOMY EXAMINATION: US PREG INCOMPLETE ANATOMY HISTORY: screening COMPARISON: No relevant comparison available. FINDINGS: Heart rate: 150 bpm position: Variable Anatomy: 4.8 x 5.8 mm choroid plexus cyst is again identified IMPRESSION: Stable choroid plexus cyst Electronically authenticated by: SEBASTIAN HENRY Date: 2022-11-14 16:19 Normal [facility] FREE T4on 10-19-2022 Free T4 [Mass/Vol] 0.89 ng/dL Normal 0.76-1.46 [facility] Comment on above: Performed By: #### H BSANS #### [facility] [address] [place] [address] Dr. Alexsander Dickinson TSHon 10-19-2022 TSH 1.303 uIU/mL Normal 0.358-3.740 [facility] Comment on above: Performed By: #### H BSANS #### [facility] [address] [address] [address] Alexsander Dickinson US PREG ANATOMY SINGLEon [...] DEE GALLEGOS Date: 2022-10-17 20:42 Normal [facility] AFP MATERNAL FOR SPINA BIFID Aon 10-11-2022 AFP MoM 1.49 Normal [facility] Comment on above: Performed By: #### A FPMAT #### [facility] [address] [address] [address] Alexsander Dickinson AFP Value 60.8 ng/mL Normal [facility] Comment on above: Performed By: #### A FPMAT #### [facility] [address] [address] [address] Alexsander Dickinson AFP, Serum for Spina Bifida Report Normal [facility] Comment on above: Performed By: #### A FPMAT #### [facility] [address] [address] [address] Alexsander Dickinson Comment Comment Normal [facility] Comment on above: Result Comment: Niurka Patricia, Ph.D., [facility] Director . References: Available Upon Request. . Multiples Of Median Cutoffs For AFP Elevations Fonseca 2.5 Black 2.8 IDD 2.0 Twins 4.5 Abbreviation Definitions IDD - Insulin Dep Diabetes OSBR - Open Spina Bifida Risk . For further inquiries contact [employer] [employer] at [phone]. . This test was developed and its performance characteristics determined by [employer]. It has not been cleared or approved by the Food and Drug Administration. Performed By: #### A FPMAT #### [facility] [address] [address] [address] Alexsander Tiwari Age Collection Date 19.4 weeks [facility] Comment on above: Performed By: #### A FPMAT #### [facility] [address] [place] [address] Dr. Alexsander Dickinson Gestat, Age Based on NILE Normal [facility] Comment on above: Result Comment: 02/2023 Recalculations are not recommended when gestational dating by LMP and ultrasound are within 10 days. Performed By: #### A FPMAT #### [facility] [address] [address] [address] Alexsander Dickinson Insulin Dep Diabetes No Normal [facility] Comment on above: Performed By: #### A FPMAT #### [facility] [address] [place] [address] Dr. Alexsander Dickinson Interpretation Comment Normal [facility] Comment on above: Result Comment: Inte rpretation: [...] Customer Services to discuss available options. The [employer] recommends amniocentesis be offered to women age 35 and older. Performed By: #### A FPMAT #### [facility] [address] [place] [address] Dr. Alexsander Dickinson Maternal [age]ILE 27.[address] [facility] Comment on above: Performed By: #### A FPMAT #### [facility] [address] [place] [address] Dr. Alexsander Dickinson Multiple Gestation No Normal [facility] Comment on above: Performed By: #### A FPMAT #### [facility] [address] [place] [address] Dr. Alexsander Dickinson OSBR Risk 1 [place] 2809 Normal [facility] Comment on above: Performed By: #### A FPMAT #### [facility] [address] [place] [address] Dr. Alexsander Dickinson PDF . Normal [facility] Comment on above: Performed By: #### A FPMAT #### [facility] [address] [place] [address] Dr. Alexsander Dickinson Race Normal [facility] Comment on above: Performed By: #### A FPMAT #### [facility] [address] [place] [address] Dr. Alexsander Dickinson Test Results: Negative Normal [facility] Comment on above: Performed By: #### A FPMAT #### [facility] [address] [place] [address] Dr. Alexsander Dickinson GTT 3 HR PREGon 09-29-2022 Glucose [Mass/Vol] 99 mg/dL Normal 74-106 [facility] Comment on above: Performed By: #### A FPMAT #### [facility] [address] [address] [address] Alexsander Dickinson Glucose [Mass/Vol] 173 mg/dL Normal [facility] Comment on above: Performed By: #### A FPMAT #### [facility] [address] [address] [address] Alexsander Dickinson Glucose [Mass/Vol] 151 mg/dL Normal [facility] Comment on above: Performed By: #### A FPMAT #### [facility] [address] [address] [address] Alexsander Dickinson Glucose [Mass/Vol] 76 mg/dL Normal [facility] Comment on above: Performed By: #### A FPMAT #### [facility] [address] [address] [address] Alexsander Dickinson GLUCOSE - 1HRon 09-20-2022 Glucose [Mass/Vol] 159 mg/dL Critically high 74-106 [facility] Comment on above: Performed By: #### H BSANS #### [facility] [address] [address] [address] Alexsander Dickinson HEP B SURFACE ANTIGEN SCREEN on 08-17-2022 HBsAg Screen Negative Normal Negative [facility] Comment on above: Performed By: #### H BSANS #### [facility] [address] [address] [address] Alexsander Dickinson HEPATITIS C VIRUS AB W/ REFL EX QUANTon 08-17-2022 HCV AB <0.1 Normal 0.0-0.9 [facility] Comment on above: Performed By: #### A 1C #### [facility] [address] [address] [address] Alexsander Dickinson Interpretation: Comment Normal [facility] Comment on above: Result Comment: Nega tive Not infected with HCV, unless recent infection is suspected or other evidence exists to indicate HCV infection. Performed By: #### A 1C #### [facility] [address] [place] [address] Dr. Alexsander Dickinson HIV 1 AND 2 WITH REFLEXon HIV Screen 4th Generation wRfx Non-Reactive Normal Non Reactive [facility] Comment on above: Result Comment: HIV Negative HIV-1/HIV-2 antibodies and HIV-1 p24 antigen were NOT detected. There is no laboratory evidence of HIV infection. Performed By: #### H IV12 #### [facility] [address] [place] [address] Dr. Alexsander Dickinson RPR QUANTon 08-17-2022 Rapid Plasma Reagin, Quant Non-Reactive Normal NonRea<1:1 [facility] Comment on above: Result Comment: Plea se Note: This test does not meet current guidelines for screening and diagnosis of syphilis. This test is intended for following treatment response in patients being treated for syphilis infection. To screen for syphilis infection, a reflex cascade that includes both RPR and a treponema-specific assay should be utilized, such as Treponema pallidum (Syphilis) Screening Harmon (434274) or Rapid Plasma Reagin (RPR) Test With Reflex to Quantitative RPR and Confirmatory Treponema pallidum Antibodies (468489). Performed By: #### H BSANS #### [facility] [address] [place] [address] Dr. Alexsander Dickinson RUBELLA AB IGGon 08-17-2022 Rubella Antibodies, IgG 11.90 index Normal Immune >0.99 [facility] Comment on above: Result Comment: Non- immune <0.90 Equivocal 0.90 - 0.99 Immune >0.99 Performed By: #### H BSANS #### [facility] [address] [place] [address] Dr. Alexsander Dickinson CBC AUTO DIFFon 08-16-2022 BASO # 0.1 103/ul Normal 0.0-0.1 [facility] Comment on above: Performed By: #### H BSANS #### [facility] [address] [place] [address] Dr. Alexsander Dickinson Basophils/100 WBC (Bld) 0.6 % Normal 0.2-2.0 [facility] Comment on above: Performed By: #### H BSANS #### [facility] [address] [place] [address] Dr. Alexsander Dickinson EO # 0.1 103/ul Normal 0.0-0.7 [facility] Comment on above: Performed By: #### H BSANS #### [facility] [address] [place] [address] Dr. Alexsander Dickinson Eosinophils/100 WBC (Bld) 0.9 % Normal 0.9-7.0 [facility] Comment on above: Performed By: #### H BSANS #### [facility] [address] [place] [address] Dr. Alexsander Dickinson Erythrocyte distribution width (RBC) [Ratio] 12.9 % Normal 11.0-15.0 [facility] Comment on above: Performed By: #### H BSANS #### [facility] [address] [place] [address] Dr. Alexsander Dickinson Hematocrit (Bld) [Volume fraction] 39.0 % Normal 36.0-48.0 [facility] Comment on above: Performed By: #### H BSANS #### [facility] [address] [place] [address] Dr. Alexsander Dickinson Hemoglobin (Bld) [Mass/Vol] 12.9 g/dL Normal 12.0-16.0 [facility] Comment on above: Performed By: #### H BSANS #### [facility] [address] [place] [address] Dr. Alexsander Dickinson IG # 0.04 10e3/ul Critically high 0.00-0.03 [facility] Comment on above: Performed By: #### H BSANS #### [facility] [address] [place] [address] Dr. Alexsander Dickinson IG % 0.4 % Normal 0.0-0.5 [facility] Comment on above: Performed By: #### H BSANS #### [facility] [address] [place] [address] Dr. Alexsander Dickinson LYMPH # 2.4 103/ul Normal 1.2-3.8 [facility] Comment on above: Performed By: #### H BSANS #### [facility] [address] [place] [address] Dr. Alexsander Dickinson Lymphocytes/100 WBC (Bld) 26.3 % Normal 20.5-60.0 [facility] Comment on above: Performed By: #### H BSANS #### [facility] [address] [place] [address] Dr. Alexsander Dickinson MANUAL DIFF REQ NO Normal [facility] Comment on above: Performed By: #### H BSANS #### [facility] [address] [place] [address] Dr. Alexsander Dickinson MCH (RBC) [Entitic mass] 28.4 pg Normal 26.7-34.0 [facility] Comment on above: Performed By: #### H BSANS #### [facility] [address] [place] [address] Dr. Alexsander Dickinson MCHC (RBC) [Mass/Vol] 33.1 g/dL Normal 29.9-35.2 [facility] Comment on above: Performed By: #### H BSANS #### [facility] [address] [place] [address] Dr. Alexsander Dickinson MCV (RBC) [Entitic vol] 85.7 fL Normal 81.0-99.0 [facility] Comment on above: Performed By: #### H BSANS #### [facility] [address] [place] [address] Dr. Alexsander Dickinson MONO # 0.6 103/ul Normal 0.3-0.8 [facility] Comment on above: Performed By: #### H BSANS #### [facility] [address] [place] [address] Dr. Alexsander Dickinson Monocytes/100 WBC (Bld) 6.8 % Normal 1.7-12.0 [facility] Comment on above: Performed By: #### H BSANS #### [facility] [address] [place] [address] Dr. Alexsander Dickinson NEUT # 5.8 103/ul Normal 1.4-6.5 [facility] Comment on above: Performed By: #### H BSANS #### [facility] [address] [place] [address] Dr. Alexsander Dickinson Neutrophils/100 WBC (Bld) 65.0 % Normal 43.0-75.0 [facility] Comment on above: Performed By: #### H BSANS #### [facility] [address] [place] [address] Dr. Alexsander Dickinson Platelet mean volume (Bld) [Entitic vol] 9.9 fL Normal 9.5-13.5 [facility] Comment on above: Performed By: #### H BSANS #### [facility] [address] [address] [address] Alexsander Dickinson PLT 275 103/ul Normal 150-450 [facility] Comment on above: Performed By: #### H BSANS #### [facility] [address] [place] [address] Dr. Alexsander Dickinson RBC 4.55 106/ul Normal 4.20-5.40 [facility] Comment on above: Performed By: #### H BSANS #### [facility] [address] [place] [address] Dr. Alexsander Dickinson WBC 8.9 103/ul Normal 4.0-11.0 [facility] Comment on above: Performed By: #### H BSANS #### [facility] [address] [place] [address] Dr. Alexsander Dickinson CULTURE URINEon 08-16-2022 CULTURE URINE Culture Observations: MODERATE GROWTH OF MIXED GENITAL JOHN. NO POTENTIAL PATHOGENS SEEN. Normal [facility] Comment on above: Performed By: #### A FPMAT #### [facility] [address] [place] [address] Dr. Alexsander Dickinson GLYCOHEMOGLOBIN A1Con 2021 ADA RECOMMENDATION SEE BELOW Normal [facility] Comment on above: Result Comment: ADA RECOMMENDED LIMIT 4.0 - 6.0 ADA THERAPEUTIC TARGET < 7.0 ACTION SUGGESTED > 7.0 Performed By: #### A 1C #### [facility] [address] [place] [address] Dr. Alexsander Dickinson Glucose [Mass/Vol] 111 mg/dL Normal [facility] Comment on above: Performed By: #### A 1C #### [facility] [address] [place] [address] Dr. Alexsander Dickinson HbA1c (Bld) [Mass fraction] 5.5 % Normal 4.5-6.2 [facility] Comment on above: Performed By: #### A 1C #### [facility] [address] [place] [address] Dr. Alexsander Dickinson LATRELL BOX TEST PT SEND OUTo n 08-16-2022 SENT TO REF LAB 08/16/2022 Normal [facility] Comment on above: Performed By: #### N BOX #### [facility] [address] [place] [address] Dr. Alexsander Dickinson TYPE AND SCREENon 08-16-2022 TYPE AND SCREEN Negative Normal [facility] Comment on above: Performed By: #### A FPMAT #### [facility] [address] [place] [address] Dr. Alexsander Dickinson US PREG TVon 07-21-2022 [...] by: DEE GALLEGOS Date: 2022-07-20 22:25 Normal [facility] US PREG TVon 07-13-2022 US PREG TV EXAMINATION: US PREG TV HISTORY: Missed period COMPARISON: 03/09/2022 FINDINGS: Fonseca intrauterine gestation Gestational sac: 1.7 cm, 6 weeks 2 days Yolk sac: 1.7 mm Miramar-rump length: 5.8 mm, 6 weeks 3 days Heart rate: 125 bpm Uterus is normal in appearance, anteverted, retroflexed The ovaries are normal in appearance. Cervix: Closed, 3.9 cm small amount of fluid in the endocervical canal IMPRESSION: Viable fonseca intrauterine gestation measuring 6 weeks 3 days Electronically authenticated by: SEBASTIAN HENRY Date: 2022-07-13 17:05 Normal [facility] Coding Summaryon 03-17-2022 Coding Summary [employer]Base 64 DesodozkJZw6rHi+PGhl YWQ+RY1GVEHhY98vnTEm pR3GT4tZJW8XLHBZEXBZ OV2WOC7lpRL0XBsoR9Mm biAv EwguvLMpKU53YIv5GYP5 dFabSNlqsN8xkXOgO1x9 CrEwEK73wK04QOwiGRFy NxA3CkOpkfsfqUMw D9hlFcTpqDCpIoi+PHRh YmxlIHdpZHRoPScxMDAl CwWsrDzvUH6dSm0wCXMi LWNvbGxhcHNlOiBj b8qaQBIjBXoqNH9qmQzu E9ImtCB3MVCmv4c9Bx42 dHI+VQWeSOF7lSxsCLar m069ZvRbh7edHLU3 cHMzKRsuFII1Y13ek1H9 YECoSEArAXG7sBZ3cC0h rGigtsshV5AsxHMxDjA5 RMU1gGDarG2jqUso umtshQ4xZwj+W87DST7U CTPANA9AOcb9M5HePiux dHI+PQ55BTXvMP86nPVx tHMtg4xdrZe5XgJq HKLmYWH5aGkjZKmru2Hu OCIlY76zrKEsm4H3RODl qAfukHNgFzHjzTD8tV0e IQqolgxdt1rcytsr Dwjkw9bfqv05lP75A67j YWyeGQTbGJK7CSVcHNXw pVtlaq2hpW3wEv7+IDxj q9qjv7qheJp5GwOu TQMbxfRuvNpiNUN1c7Rf Xa26B3TnfGybw8JnYet9 as22uPWhz2H7mRD8PZbx TGMlrY1tWLjgQhF8 CTZdUsDlwH10sKZnDCvx Pe4ecQtvqZwbIH5kSZMk upsuBMDamD8jAWJtdUWv vIejDK0gRTFdnuul a030EnMoDYX5ASEzvLZu J5HibS6nMsLwGAJzWPPi A7EudSTtVWlwC139EFpn CrJ4QTSkvwNpW0Li GOQjdBesXaS3l2T6Vh8K r1LbdsigMPR1KOhbZTP7 YqPrNpOuNuF5K5NzWqg0 AYGcgYynYQ7kT0Pa FNLaxsvmwtbgqXR4AMKj YHVlbJ28hYPrSDfpAn2g c8O5l856GJXiBUOuxG26 So9udRffMHPaxHCG zW7uunwjx9rgmtmiSySm OXCdSAr4TNl8PXMywBud CpZsSCN3LpF0FXF0gAVm rD3mdKgjttoywI1q Oyc+O14xnB7cYHX5HKL5 sgtuXIMauoQwXC80RH86 L3UjFxykxVUxsPE+PGRp oxChoPdiVD5oTkMp e9vpj4LgYHuxW8NpVVOd IVgpHxo0KBOyTGF3zOM5 qJ6dOSItHGkbx8O5jSP1 F1YlulNdfo0rf2aq RVGrCApbV76blILrw0B8 QVLpkFT0JYWmxLxbKbMr hO01Jkf+XLTapClnc8Lu Ofbkg6fzo9qbjKk3 IjMwJSIgdmFsaWduPSJ0 r1AtPx50N45bTOetGEDp HJQwMYVuORDblLuxrj1n mV2sOl1+PGNvbCB3 tFX8xI5sTMWmRlX6ECmu I267FrXgvQSdXimrm9ly b8ondRe4GePfQGZefuWj fInoSAI1l3IoPu36 N17yTNalIHZfFHViPBLq YMVsgGmjkd2xaR8aFb5+ TZ9mb7igxu03xW33aTE+ ZBXgBLE6oCciKItj EKVrsY6zCBwmJsF1QWBz CqSxtN93tJKiKWtoCi9r jQkimJjdJX7fAEPjnzdu c470NtRmy5meTCNg iLVeLZycUAT9J42cp2R9 MIIfOWRhDFD2lIT1tM8m bGlnbjogbGVmdDsgdmVy nRgcCHixYRgtM570 IHRvcDsnPlBhdGllbnQg LbEtZXh1Q5PaBnk1MPAd pDpbHG1cpDEnXGfvKh3s qHhlkOzwWO0cCDFw ddjbg722WzXzq9lnSVOe sCWpTYpmJOL2W93oy1Y4 MIAuWBZkKHC1uNT5eE7g bGlnbjogbGVmdDsg gxJmwDnwHLfkLBjyT567 IHRvcDsnPkJpcnRoIERh zGA0GH65CG09lPObs8M8 sKA3F3WqRPXtzkfg izhetQP7AMKeQPAegS52 Za4egQfdMq7yLBFeFGQ6 NYQmiPCxJ2IfjK1cXzNu LEGrLSYxS6KcgQNv OFscZ297TCgzSfS9ABLb aaBoW4AbUEPsrLmzWjJ8 p8X2In2XA4D7EY96YU11 aNItk0D3fTJ3B2Zr YLZibzebmnhjfLR7FSVm RNUuyB96Pa3uoXczHv5k BQPzTOR8QYCovDUoL8Bp sM0gXhTjBBJgUJTt S7RarGHsVQmdJ340IRrb DvX6TRWmshXeX6AlEQHm mCqxXeM7f3U5Xd8KPGv5 ML75YZ52oMIlk4J2 jWC2G4OeNTClgtbbqynv wBV8DFCdMETttP51Wj4g xVfxSv0qMARnXUJ7VZEz jIAzX4RzwV9dWrLf DKFrWEZpA3UttJXpQAlk S499GBzuRbL3JUUwlyOx B1JlOZXtzEhwXyN9c9R3 Py9GBMUyWS94MKD3 uQF4CR68SD51Q1FtWqaz dGFibGU+PHRhYmxlIHdp ZHRoPScxMDAlJyBzdHls LS3zHf2vLTIlQVQl sEtvjWUeEfBkv5mjOROf NNiiEJ1orVstL1FpoHM1 CNExw0i2Hm57E86rY7Jw dXA+PUTmmIT4qKT0 qL6eEeFmSlS5OOikX150 KhQnmJBfGxiei4kts3qu eRb5SqF0QMEeppVrdKvb NVG1i4GbDk04W08p IHdpZHRoPSIxNSUiIHZh oIlgtf8yqZ5tSr9+PGNv lTY4nWO5vH9mKwXoRrO9 ASdzV867SqWctRVn Eaugs2oyd9eksLw7UdMr CEBqkdZfhTlkNPH7k8Qq Lq11Z1QpbRhoc1KzNuz1 tz86iVQfq3Z9wVB6 C1NxBPMnsvgeeXSxxMhf BP2mHHHthmpkECOeeL0e TGNiJ9h3HtApVyA2DFrh D9SgzyR9ELRigLDg OLtlRQB2P32hh3M7HTEs MMGoYNF3vZA4bM5bvFug bjogbGVmdDsgdmVydGlj LIvlNVcqN045QMKg cPfwIBDxcO0zJIDwsYGq bPukVO8dNBHamaskUiKK TExJTlMsIEFMWVNTQSBS OLHACGr8L5XsEsb7 DAOzyVpxKY4ryTNtVSsu Lq1swEtvqRxmHQ9gIRJk bqrxIVCzmL6pKPNaaDDv aQstXN2lAZPsftij s713XzIjTGQ2FKPrpWGx A8PoxD5yPdQuRXYtIMTz H4EvhZYjMQalJ926FVip ZlZ4RQJjjjKiL3Gs EWLdaEbeRjK6k1Q5Hm9o IW1hSs0gFAg8PN16AV83 vUDkc4U2bUY4A1SjDDMt xhvjzlubiUH8HYWs BAMzbC26mHLlNUddFh0j i7L8x118WYDeZVIcwY87 Ce0cnWnnHWKfhBEJyW3p xrazb8mrpzjzYjYj XHQjHEe7NTa0FQSiiYuu IsRpAZP1LxR9COO5nYHg yP2pfPoxxogtmM3uJhe+ NehyXXThxlX6K5Tv Qdq2ETLuqNqjPY4evORp HIfjLs6yvVhckAduYW7u MYLfgqfcZZIluQ8qQKIb qHZqbRjtXC6gKGRy hjgsv574CeJmCDX8WXGg jGFaI9XnyI6yUpKvHTZj LBEmF4HfoEBeBEswE642 VQqoSiV0TNEjwkVt I4PiBOGevTdjUhF7c1D7 Tv0WWL7PMNL7V0IcXzj9 MWJirIlmMA3whRLdBQcv Dt0dqSzsrVuyOX5e KHVtfaqgMOOzsQ5eMKAv tQJatRalYA5dFXZrrgwr c894GyWmLMM0IXTasOTs N9WxcB5lEjRrBWKq WTIoJ2LboBWtJQhiA236 TRtlToH2ORIfuoHbH4Wq OIPbvUlkUbX6j3R7Lp6Z UDwvdGQ+EN01op79 I9DbUvqrAdm4BXOwIIB7 bAW9bJ8hSOQpYVcqu9P8 mTG9H4WwawGkkd2og8wq ABTqXUnlN18abPDq p9U7OMPleDE9SNHiyGqz HtLucL31Tia+PGNvbGdy l8KrUsdzq9acr8aieFt3 IjMwJSIgdmFsaWdu QQE8l0VwCc66Q73yPYbm ZHRoPSIzMCUiIHZhbGln ya7iyV0bRg4+PGNvbCB3 yGZ3qF9sKfOdMjN8 MSxvN515EyBghBVtAprf r7kla6bssDk3CcBzABRh uaQvyFmaAIQ1e8GjGa01 L2HkuWjui0IwCqo0 uv30bKBfn1K2rDF0V4Lb OEBieajaqLAgtHocJN0z NNXmxfrvTHKavY6lYARc M1t5FqXhLfE5JOpc H5MuvuY6NCAxoBAyTXDa cXPRiY7qgcdfn1qabzsu OhPxHHFxPNc5VIh6MSPh lWojXbDgETV8XrC3 KNI3sPBrqS6xeIyhtjom sJ1sSlk+COt4v8ljmJLk VV7ctGU0YT21LE65vNAh h5N3tRZ5N9GyQJUq qgywgtkwfEO1HJHuMGOn sU41Kt3rkBlvEd7iAUQc SHT3WMOmfPJyW1NdsB1n UyKyBYTyPIEeA3Mf wYFsRXltS720EAbmSsW8 NGDlxgMqZ4UjIPIflAxc SjJ9t7P7Hy5IEG74QX20 YT62dIJoc7N9hEQ1 H6QgNEYiaqlppxfsdHR5 PXVmYLNftU63Tw6ekRpj Hy7tPXImSBP5NNVwsNSw Y6CuwW2tXyLfZBZl TJBiL9JfgDJuXLhbD261 TJmlYpU6ZTIyurYoC1Gw GNWfiProPaT1q7A4Rt1U Rw63QQ55CD53cEEt o0U2wZR5L9SwNBRmpexy elhwaRE9YHXgKAUevN68 Il1xeMjaMd6hBHRhIIC1 UHWyrXJnA6JobF7t SsBxGXFiJDJyD2IjqYUv MRifU493EFfsEsQ7HZUa nqHpO5ZxQPCvgHbbAuF4 a3M4Pl0GARzyrmu9 A5TjMjvlsFC+EJ93BSMz CQ68vAKwtPAad2bwqYf2 TxBvNEMyIKM2hZwrSUfu l7CfFETlP21gaNFn c2U (more content not included)... [facility] Coding Summary HTMLBase 64 BwhjdpiaGZv4sFh+PGhl YWQ+KJ0SYULcW40oxVZf nD4RJ9xSIB2HVBGAOIFI MN2XTH0ydQU2TCdpE7Ek biAv EjtciKQdJR22LGm1CDX4 wEoyGXmbaQ8mzNBsU3z7 DzPgNU28wR76WZkhKQSw NiC5FqPmacsczYWt O6rxFbEttKMeLwi+PHRh YmxlIHdpZHRoPScxMDAl XvYerPyiVM6aQu8jNIAc LWNvbGxhcHNlOiBj n5eoEDDlVKpxXL6aeLbi B6EdyFW4DKVve4h3Dn14 dHI+QBIvCCN2nGxdKQjz c673FpKyk8qeDJD6 jWFnCDsgNXW4S62fx6I2 GRItCPThVDB8mUO6pT4r hVhshcptD6NzmARsEwH4 PDH5wMUfoU5urVqs chdrvY4pJto+G58HNC5T REJIVD0TRpu6T6ObFehy dHI+JE29RBMpQH01dLGj fKFnf3ffuJd8VjNd DUEoEAY6lFbaSKfew9Fo PFFyQ46hfHAkb8G4RKAx bUgmpGVzXeRpyLF2mP4x TKqnetmhb2eiiftd Ndxcr6vsfp62bM93M19a HQfmIWEgBFH5WYDcCJHh zOrxqp9hmF3lUp7+IDxj h6vzw5oduSk7PnJl RTMitfTndXiqXKJ2e3Kw Gs41T0NomLjoz3CnRlu0 fv96cSEmz7A7vMA2BZgz SVIpyY8cPJkcOnE7 JGKxNxDgaO20eCMeLGnb Kp0qsZujpArdJC0lLYAs osyqFXLobP7mWEJmaBMy xXdoYT5qPTFptqcc z746ReUuJFZ3CLDtfBBw H0HnoL0zOtJmKLIlUDTw Z0QdyWReFIjxH239CVcw IgS1XZHgkoDiD5Km QECebIlyPeX7d5Z9Mc5H p9KryoizKEU0RYmyOXH0 JlNbDkUnQeX7I4OeUib1 KRRkpYwyXH7yW4Ig RPOpaavkgxodzDG9QEFv XXYbgE83lEIoHOoqSt0z f6E0i890GASgKKVvbS37 Ws6qwFblMNUceRQI hF1exokxo0lmddsfNcWm MRLoUCi7LMo3TINnaFhp IgQnAYT6BhV3PQM6sVMk xJ6rgVmtxkboqQ4p Oyc+H13cbI0mABD3QOI1 ihawOHDgcgFlJR10BV55 P5YcAjfxsCRcdMY+PGRp qdBurIapHF8xZxMk y4vsz5AgEAohZ4LtZEXt DOsgYbp2XXIkALB4gZP6 dS3nFORfYKhza6K6uSC2 C4GbxtXrgz0ti4dq AJEyIOulK69heLBvo8D9 BWAigRB0QJRxzStxFpEg oZ66Qwg+PQAoiAfux1Ef Ncznr1ici8ylsMg8 IjMwJSIgdmFsaWduPSJ0 p5MtJt05B05hYZpcSJGw YZSlSMHfSGEuiWphog5h lG8hUn3+PGNvbCB3 xAL4wA8lWZSfRuR8HQjt U833SzQfgUYaVlckb9gn j8xxzAg8SnIfLLEqpxNw qOugOKR5v3CdOl73 C89zYFeuKCMsDZTvQHXp KNKokPplkx9reB4sTs2+ UE2qq8hmgu84eD17pAV+ AGUeDFY6bVdnNXmr IGYgxH0oQYgjJcA2AYXc MfKmmJ10lUTfCAqzAn3d oIebvZuiJI9oXXMgclhe d116KuMkt2pgDPFi sHVgQQlbYND0Y31ps8C9 PCXmAXLmTBS7pZX6rQ5o bGlnbjogbGVmdDsgdmVy jLvuDYcdBPdzM855 IHRvcDsnPlBhdGllbnQg PnGtASf9F3BdLal2DKKe kValIA0phFJqZGkpHz9a xAlzzFjcVK8nSMWt czlrq077SuVrt0raNRCz hCLvCTykPRA4J66jh4B0 FJCrJIGgQLG3hNY6aH2q bGlnbjogbGVmdDsg tlHsrKnsRKazGErvP246 IHRvcDsnPkJpcnRoIERh nLJ6GF07VN91uJFqu1T0 eII3D0NoRNHokczg opfyiSG2WDVvXSMvhE33 Tj9yaGcxBz0aEKXfHYJ6 FLXmwAImH3JtlL3vWlGr YCCjBDNwS3XtaEPf GNfiT192QBubTdH0VGHz anGtP4TqRYPmjCynOyU3 m7L8Ud8NX5A3QC05SM30 dBXdt5R0uCP6X0Wk NHNrgdgwtpxxfQM9SAFk XXZivS35Yj1nwPsuKt8a QXXuSOF7WVPwkYWcI5Bj lC8cTgPxKHVlWXLb N3ThtIIoEMofJ320OXry BzL1HWQkdsTgJ3CgBZRk rAqsLdQ4r6N2Qe2JFJz3 GZ77DB08eQDar5R6 uQF2O3NoXMUehnmncryt aID5YXRgJMVjxM50Bv9t eVgwMx4iHTAuOEX4SRNj eEYwJ7RtiY5kVbRn QWLgGAMcM8AgnXIoVDcd M029MSaeKvN6QRYmsxNm I0XrOGVkaCowBlM1e2Z1 Oh9FZTRoFZ14MEH7 gQI1LD22NP02E0YuWqnk dGFibGU+PHRhYmxlIHdp ZHRoPScxMDAlJyBzdHls MU7eGj3pXKImYNYo vBeasEEuPlJnc1pgVOBp YDjaKZ6rlFlqX8DykCU4 EPYri9j7He51T54dN1Yj dXA+UEEfhWV3dGL9 cA4yQyEnVvP3DXegA211 LrTukTUrZfsct1eny8ud tLt9EzQ2ZINytvJnlEcy JQE6y2UoVx97G79j IHdpZHRoPSIxNSUiIHZh sMjueu5qoM2cHm0+PGNv zWF9uAO4kG8vEiMtZbI0 QHnfQ637NbAnrVNw Syljm0kpl3fdjSp8EcPv RBCwjqLlbSkoTQA9e8Eo Sc41O1OqkEmlr3YaNup7 ad99nDZdz6V4jMT5 E1QxMUEchqdhqWVnmZxl AN1qHMEucjfwQITytM1z VEEhV5f3BzRsYpD4FWos Q8FrvkR5DFUjaDAk QLomHDC9Y86up2F2JZOj LQCmNVL0hVZ5aY4obQns bjogbGVmdDsgdmVydGlj DOmgKUglU663VVWg zIdaDPGlsF8dFRFvlSZw oWnqAD7eUPLqcsepMiOT TExJTlMsIEFMWVNTQSBS CAQSHCl0P9IzIeg9 HIEqxFwcRX6ifOOrMRur Vp2wiHspyWkoYE4eSLKa ljwvVJGvjQ7aOKMemTYf vXqiJI1pUITxfelu k343DkPhYKB5JVQqpTDe H5AjxB1pHoQbFPMxKQEp T3QvzGHgEAjcW152KFes BxE2ZDOdbmTfL6Ex MQYfbHslIfL2j5V8Pq0a SZ0wMf7rWMz3AG15AC73 wXZeo2Z5jGF7K7TvIOMk odovffyslDK5VMSu WVRydY86fZNmUQytWz1w x5S2s384YHRwCYTjgJ38 Rh1axYpzISIusEHFtD8r kiypq0qzpdlrGjDc WQDtAGd7TVz9CZYsyYox UdQeEWI9XrS8KIK4qCOv yR1eoCthtobddT5uHhc+ IuybNVAcoiC0V1Ja Nua7KQBacWgnCQ4lqTIb EEalFu6pvZfkxGzhDH7v MUTfwuzdGSGpzJ4kXXIp tXUehVaaRC3jUORl dmytj638UqUoKMT6CMBx nHKdD5TetS0zTsCjRSHi EQDuL3NszLRcVItaN111 DLzdIjK5QDRawxWf O4WyXZFwpJseWpJ4e8H1 Kg1GPA1KKFU0J7TiNqx5 GVJobXpqQV5oiEFlQEbp Eg1kfRfqsQzwKP7w EQNvepukDWErwL3qWQHv nFIhnQuoQP3rQTFywgwd h985EgAkKYX0VVCgmMKe K3KxrH4jTpWkQOAu TAHcG0OcjRRzALobW305 WNdtBwW1UXOhqaMhD4Nt QBCxbXuqJfP1y8I7Um9N xSKdA2DyP0e2U4Ue PjwvdHI+XE57GHKbCP32 nYTcqZQur8skhAz5WoJo GJMaFOT7lEcbIIjyi3Bn QTUrR26ejINdd2D7 IGNvbGxhcHNlOyBlbXB0 dP2qMUdimlvqq7qujlit Qqmek5bujn47qG12M48g IHdpZHRoPSIzMCUi GNGuxGuxej6sqN9tTh8+ TRIycLQ9sFO1jK9iXcAy KsY9JMqzV995LtPokJXu Afiqt4kaz3pcnKq0 IjIwJSIgdmFsaWduPSJ0 f3XoOh37C17fUDjbGWYg MQZnKJXbGABqyGbpdm8a gD8zIq9+SP4pt8hf ee67jO91oJF+PHRkIHN0 iAcaGYgjLOTjpK1tDAdu GlT5RQXwTmOxmC04xFPl BQrlDy5hhNmusMqp FY6yVROgrnqbg289NnVm z0mdWLRluESpGMzhENE0 P70hh0C4OFHuNTAyJSP0 rKY6qL3etPtmqtnh bGVmdDsgdmVydGljYWwt SLaxW597QDGbfWhaStVv jFSzU9tgzdRSHY7hAiia dGQ+JVBvFQA7jCve NZjjDSSytC2sCVOdU2b0 UyGvYeR6ZJzgY6EagzN2 COCcfZEcLAEnrKAGoG5l wwpei6tqplknVqXq PPOhWJv8UAd6QCFyeVzz UiHcSZZ7DvV8YEF5lDGy sO2xoRloxsanwB9cKcw+ RklOOjwvdGQ+PHRk RNW1eQzwGDyjPLMlbZ5u EKKxG4s8LrOlLhS0QKgn P6RlneR9MENxtLYaQHPy gCAQrD0xjevju5uq cgqcMcZiTLToPAn9CJz0 JQZwvOqlGnSyQRZ0WoD9 IES5gNHntY7caGkrgbux mX7xLul+TVJOOjwv dGQ+CNKeNUU7tBxaIIgh SQCwdX6eHWAtR4y2AkCm ZeF6VPmpI9NtznE8ZUTf sTRlOEWbrUSRtA3l oejzi8hubuhzWdGtMJUs NGu2ZIh0OSUxtIehZrAd ESR4DwX1MKV1xVOfjA0h xRiirjccvO0uBxv+ NJS5FSK1BB32RQ89I5Wl PjwvdGFibGU+PHRhYmxl IHdpZHRoPScxMDAlJyBz rWhiVL5cVn0lWCBa LWN (more content not included)... Normal [facility] C Urineon 03-11-2022 C Urine Urine Culture ordered as a result of parameters set on specific urine dip and urine microsopic results. >3 Organisms Consistent with Contamination Recollection suggested. Normal [facility] Comment on above: Performed By: #### 1 [id number], 44731716, 1037515, 7177331580, 36568270, 6255269, 5105920280, 1850234988, 2349611605, 6059905 #### [facility] (DEFAULT) [address] [place] [address] 79378 .Auto Diff 03-09-2022 Auto Bureau % 8 % Normal 11-09 [facility] Comment on above: Performed By: #### 1 0521043, 67409688, 0870959, 9278740455, 71341663, 8012743, 9128866820, 4769272104, 4942114693, 4301985 #### [facility] (DEFAULT) [address] [place] [address] 73282 Baso Abs# 0.0 x10 Normal 0.0-0.2 [facility] Comment on above: Performed By: #### 1 4844457, 36760104, 3664083, 6554319880, 11075499, 7486325, 0728224047, 4710619957, 4979297133, 0774957 #### [facility] (DEFAULT) [address] [place] [address] 28428 Basophils/100 WBC (Bld) 0.3 % Normal 0.2-2.0 [facility] Comment on above: Performed By: #### 1 0346060, 50348420, 4336295, 4160038814, 94187036, 0691674, 4206459887, 4273976899, 3937274063, 1843156 #### [facility] (DEFAULT) [address] [place] [address] 92755 Eos Abs# 0.1 x10 Normal 0.0-0.4 [facility] Comment on above: Performed By: #### 1 8327344, 88697810, 1062966, 0405033811, 42185038, 0366403, 7810957481, 3629318354, 4530864599, 2328143 #### [facility] (DEFAULT) [address] [place] [address] 44554 Eosinophils/100 WBC (Bld) 1.0 % Normal 0.9-4.0 [facility] Comment on above: Performed By: #### 1 1515162, 02989684, 1274244, 5147507152, 10571793, 6059950, 9266246894, 2514548339, 5041630380, 8360395 #### [facility] (DEFAULT) [address] [place] [address] 35290 Lymph Abs# 2.0 x10 Normal 1.3-2.9 [facility] Comment on above: Performed By: #### 1 5477761, 55394993, 6393630, 8448943028, 64895365, 7097555, 6060682871, 0061167970, 9827532275, 3545396 #### [facility] (DEFAULT) [address] [place] [address] 65519 Lymphocytes/100 WBC (Bld) 35 % Normal 14-48 [facility] Comment on above: Performed By: #### 1 8500094, 64260857, 0821878, 0151025049, 86944105, 9170932, 4599834179, 7908842086, 1098529890, 6688342 #### [facility] (DEFAULT) [address] [place] [address] Bureau Abs# 0.5 x10 Normal 0.0-0.8 [facility] Comment on above: Performed By: #### 1 2536385, 25901674, 8555535, 0730462124, 62258796, 7969157, 3653925655, 1773673522, 3551683521, 8601081 #### [facility] (DEFAULT) [address] [place] [address] Neut Abs# 3.2 x10 Normal 1.5-9.2 [facility] Comment on above: Performed By: #### 1 8093483, 64487076, 0960728, 7048289838, 89725943, 0293976, 6700713248, 7334095299, 0338444395, 3536724 #### [facility] (DEFAULT) [address] [place] [address] Neutrophils/100 WBC (Bld) 55 % Normal 44-88 [facility] Comment on above: Performed By: #### 1 7315261, 85968957, 9783956, 4740610579, 98284766, 5257799, 4063632622, 0921079288, 7232206326, 8963549 #### [facility] (DEFAULT) [address] [place] [address] ABORhon 03-09-2022 ABO and Rh group Nom (Bld) Hx Check: Not Found Anti-A: 4+ Anti-B: 0 Anti-D: 4+ DCon: 0 A1: mf+ B: 4+ ABORh Interp: A POS Invalid Interpretation Code [facility] Comment on above: Performed By: #### 1 2344597, 99966543, 8705387, 5115692146, 47350379, 2245606, 4105807287, 6232558358, 5583389003, 8032471 #### [facility] (DEFAULT) [address] [place] [address] ABORh Retypeon 03-09-2022 ABO and Rh group Nom (Bld) Ordered by Discern. Anti-A: 4+ Anti-B: 0 Anti-D: 4+ DCon: 0 A1: mf+ B: 4+ ABORh Retype: A POS Invalid Interpretation Code [facility] Comment on above: Performed By: #### 1 7814073, 39517832, 3044627, 8639059055, 44654937, 5177743, 3867555230, 2556807663, 6923415635, 4874527 ####[facility] (DEFAULT)[address] [place] [address] 25841 CBC w/ Auto Diffon Erythrocyte distribution width (RBC) [Ratio] 13.3 % Normal 11.5-15.0 [facility] Comment on above: Performed By: #### 1 2378840, 74936545, 8520619, 1651108804, 37125360, 7834560, 5075386395, 1260348527, 6662871511, 4317106 #### [facility] (DEFAULT) [address] [place] [address] 11340 Hematocrit (Bld) [Volume fraction] 43.5 % High 33.7-40.4 [facility] Comment on above: Performed By: #### 1 2662979, 58299619, 6048737, 9187043951, 28095626, 0714651, 6313648150, 7553018609, 3019055123, 1990354 #### [facility] (DEFAULT) [address] [place] [address] 48811 Hemoglobin (Bld) [Mass/Vol] 14.1 g/dL Normal 11.3-15.9 [facility] Comment on above: Performed By: #### 1 9325717, 31971578, 2102382, 6953671730, 46305611, 4866876, 4532556273, 9153304301, 2846994691, 0028388 #### [facility] (DEFAULT) [address] [place] [address] 61380 Instr WBC 5.7 x10 Invalid Interpretation Code [facility] Comment on above: Performed By: #### 1 0704890, 91997719, 6369504, 4953791923, 00711355, 8582408, 8897663550, 5698608267, 1543190201, 4424061 #### [facility] (DEFAULT) [address] [place] [address] 35559 Man Diff? Auto Normal [facility] Comment on above: Performed By: #### 1 8573768, 01565355, 7864711, 1554628808, 79279772, 8486068, 7312730027, 5160171152, 9904401582, 7765322 #### [facility] (DEFAULT) [address] [place] [address] 13588 MCH (RBC) [Entitic mass] 28 pg Normal 24-34 [facility] Comment on above: Performed By: #### 1 6547605, 44634829, 7066917, 6870900988, 89335075, 1226543, 6807178390, 0851901631, 6019898456, 0471562 #### [facility] (DEFAULT) [address] [place] [address] 77772 MCHC (RBC) [Mass/Vol] 32 g/dL Normal 26-37 [facility] Comment on above: Performed By: #### 1 7874588, 14662952, 3304570, 3517240834, 16841353, 4617716, 7324150616, 1628984661, 3362521739, 6821238 #### [facility] (DEFAULT) [address] [place] [address] 07986 MCV (RBC) [Entitic vol] 86 fL Normal 81-100 [facility] Comment on above: Performed By: #### 1 1774910, 08927820, 9934590, 5387183267, 46689838, 3124177, 3422188995, 8347963680, 0911299082, 3191758 #### [facility] (DEFAULT) [address] [place] [address] 80078 Platelet 324 x10 Normal 138-427 [facility] Comment on above: Performed By: #### 1 5139539, 85917621, 7555756, 9614700064, 25723785, 0135123, 6006443033, 3732459581, 7341500343, 7718671 #### [facility] (DEFAULT) [address] [place] [address] Platelet mean volume (Bld) [Entitic vol] 9.8 fL Normal 6.3-10.2 [facility] Comment on above: Performed By: #### 1 0181589, 71271991, 4460822, 7662665837, 28731662, 2396434, 9245887024, 1477665815, 1511976543, 3599249 #### [facility] (DEFAULT) [address] [place] [address] RBC 5.07 x10 Normal 3.70-5.30 [facility] Comment on above: Performed By: #### 1 7648104, 09993808, 7809144, 3025902006, 53100473, 7025111, 8072769716, 4989876363, 3055702420, 8756736 #### [facility] (DEFAULT) [address] [place] [address] 78591 WBC 5.7 x10 Normal 3.5-10.5 [facility] Comment on above: Performed By: #### 1 5638553, 09993437, 2434602, 3070344495, 24225671, 4910562, 2723831722, 7933834623, 5718854614, 8798598 #### [facility] (DEFAULT) [address] [place] [address] 63928 [facility] Standardon 03-09-2022 eGFR Non AA >60 Invalid Interpretation Code [facility] Comment on above: Performed By: #### 1 5749982, 40327982, 3845838, 5339312257, 56424039, 1334762, 9295104989, 3700167365, 1878511373, 6134203 #### [facility] (DEFAULT) [address] [place] [address] 04465 eGFR AA >60 Invalid Interpretation Code [facility] Comment on above: Result Comment: [employer]ie Kidney disease could be indicated at eGFRs of less than 60 ml/min/1.73m2. Kidney Failure is indicated at less than 15 ml/min/1.73m2 Performed By: #### 1 0691586, 31289455, 0007889, 0556816411, 00477554, 9026813, 5964229958, 4712346410, 3402912444, 9628067 #### [facility] (DEFAULT) [address] [place] [address] Albumin [Mass/Vol] 4.5 g/dL Normal 3.5-5.0 [facility] Comment on above: Performed By: #### 1 4851271, 87060506, 8868714, 6699349218, 44433948, 3516423, 5542485782, 0186765877, 8038886759, 3040377 #### [facility] (DEFAULT) [address] [place] [address] 62092 Albumin/Globulin [Mass ratio] 1.2 {ratio} Low 1.4-2.6 [facility] Comment on above: Performed By: #### 1 1346374, 04791231, 0060302, 3085910923, 35105157, 3236587, 1362897529, 7407833516, 1759733018, 5781559 #### [facility] (DEFAULT) [address] [place] [address] 67417 Alk Phos 52 IU/L Normal 32-91 [facility] Comment on above: Performed By: #### 1 7465536, 94382656, 2069431, 2031719405, 19631005, 3968589, 9595192434, 2425784798, 8136781351, 9884482 #### [facility] (DEFAULT) [address] [place] [address] 27568 ALT [Catalytic activity/Vol] 37.0 U/L Normal 14.0-54.0 [facility] Comment on above: Performed By: #### 1 4893005, 64338010, 7685892, 9008538688, 89585032, 0560133, 0237815280, 5460049892, 4725770887, 2889482 #### [facility] (DEFAULT) [address] [place] [address] 00204 Anion gap [Moles/Vol] 18.0 mmol/L Normal 5.0-19.0 [facility] Comment on above: Performed By: #### 1 3263320, 96193366, 6283702, 9576670511, 67859793, 9792852, 4499502226, 9964763399, 5324720199, 1047518 #### [facility] (DEFAULT) [address] [place] [address] 00753 AST [Catalytic activity/Vol] 29 U/L Normal 15-41 [facility] Comment on above: Performed By: #### 1 8208778, 04272414, 2859049, 5038354554, 81455674, 3746976, 8381315944, 8303535810, 9516836034, 9172369 #### [facility] (DEFAULT) [address] [place] [address] 94938 Bili Total 0.7 mg/dL Normal 0.3-1.2 [facility] Comment on above: Performed By: #### 1 4852258, 85368104, 6083655, 1368691812, 37977964, 7822306, 2912853181, 5927274395, 0462583859, 0242103 #### [facility] (DEFAULT) [address] [place] [address] 57072 Calcium [Mass/Vol] 9.4 mg/dL Normal 8.9-10.3 [facility] Comment on above: Performed By: #### 1 5310971, 02981040, 1726215, 0159344355, 63744452, 4926110, 9835160216, 5885234325, 3917124245, 7630864 #### [facility] (DEFAULT) [address] [place] [address] 14054 Chloride [Moles/Vol] 100 mmol/L Low 101-111 [facility] Comment on above: Performed By: #### 1 7096356, 36507022, 8034573, 7691474570, 29063567, 3982465, 6834332012, 4231199982, 8055368312, 7251491 #### [facility] (DEFAULT) [address] [place] [address] 23657 CO2 [Moles/Vol] 24 mmol/L Normal 21-32 [facility] Comment on above: Performed By: #### 1 2347194, 98918279, 1576071, 4391285685, 53424037, 3655400, 0843785664, 8040215689, 5122744009, 0310259 #### [facility] (DEFAULT) [address] [place] [address] 19261 Creatinine [Mass/Vol] 0.75 mg/dL Normal 0.60-1.30 [facility] Comment on above: Performed By: #### 1 8148509, 71298161, 2545374, 2196536762, 32706523, 8057181, 5181171821, 1456668086, 1835908002, 1478132 #### [facility] (DEFAULT) [address] [place] [address] 53948 Globulin (S) [Mass/Vol] 3.9 g/dL Normal 1.5-4.3 [facility] Comment on above: Performed By: #### 1 7201883, 74155367, 7479384, 2431612498, 75815560, 9138275, 9537089059, 8291316231, 4264065106, 5667403 #### [facility] (DEFAULT) [address] [place] [address] 73212 Glucose [Mass/Vol] 98.0 mg/dL Normal 74.0-118.0 [facility] Comment on above: Performed By: #### 1 1283107, 65377990, 7728722, 3681691714, 38364883, 4573656, 9605183406, 9755923544, 8984145733, 7362063 #### [facility] (DEFAULT) [address] [place] [address] 76632 Osmolality 274 mOsm/L Invalid Interpretation Code [facility] Comment on above: Performed By: #### 1 4058672, 00615888, 9164718, 3258174905, 80809116, 6328107, 6631155578, 3870028252, 8884320185, 6536860 #### [facility] (DEFAULT) [address] [place] [address] 59456 Potassium [Moles/Vol] 3.5 mmol/L Low 3.6-5.1 [facility] Comment on above: Performed By: #### 1 8784733, 12092515, 3020809, 4199510253, 22252677, 9997149, 3008398483, 6347952877, 3220814531, 9736303 #### [facility] (DEFAULT) [address] [place] [address] 51021 Protein [Mass/Vol] 8.4 g/dL High 6.5-8.1 [facility] Comment on above: Performed By: #### 1 5339297, 88590133, 8951292, 7511340819, 21153525, 9619516, 8873429169, 6417228452, 7671661357, 7956292 #### [facility] (DEFAULT) [address] [place] [address] 99356 Sodium [Moles/Vol] 138.0 mmol/L Normal 136.0-144.0 [facility] Comment on above: Performed By: #### 1 9688087, 50149590, 0159761, 0032660794, 05076892, 0437983, 0538109631, 9052911488, 1633970279, 3430865 #### [facility] (DEFAULT) [address] [place] [address] 09898 Urea nitrogen [Mass/Vol] 7 mg/dL Low 8-26 [facility] Comment on above: Performed By: #### 1 6230461, 66711685, 3112398, 3082277547, 14056082, 9577413, 4016019523, 5157918216, 5254370980, 2071392 #### [facility] (DEFAULT) [address] [place] [address] 38096 Urea nitrogen/Creatinine [Mass ratio] 9.0 mg/mg Normal 4.6-16.2 [facility] Comment on above: Performed By: #### 1 3152496, 31423530, 6310165, 6486184443, 06725494, 5503105, 7582594885, 9188891530, 4837226154, 0445845 #### [facility] (DEFAULT) [address] [place] [address] ED Clinical Summaryon 2021 ED Clinical Summary [facility] - Emergency Department [address] [place] [address] ED Clinical Summary PERSON INFORMATION Name: DIANE JOYCE Age: 26 Years Sex: FEMALE : 1995 MRN: Acct#: Visit Reason: Vaginal bleeding - < 20 wks ; BLEEDING, Arrival: 03/09/2022 15:56:59 Discharge: 03/09/2022 18:28:00 LOS: 000 02:32 Check In: 03/09/2022 15:56:59 Checkout:03/09/2022 18:28:00 Address: [address] [place] [address] PCP: Provider, None PROVIDER INFORMATION Provider Role [...] or bladder. States that she follows with [employer] [facility] [employer] in [place] Min, contacted his office and they [...] intact, SARINA: -Sclera conjunctiva: Unremarkable. NECK: -Supple (ctms-kb-qhzeo): non-tender. CARD: -Rate and rhythm: Regular -Edema: [...] the patient recommended close follow-up with her [employer] and outpatient beta hCG. In the meantime no strenuous ac (more content not included)... Normal [facility] ED Note - Physicianon 2021 [...] or bladder. States that she follows with [employer] in [place] Min, contacted his office and they [...] intact, SARINA: -Sclera conjunctiva: Unremarkable. NECK: -Supple (agci-ua-dytsy): non-tender. CARD: -Rate and rhythm: Regular -Edema: [...] the patient recommended close follow-up with her design engineer marine equipment and outpatient beta hCG. In the meantime no strenuous activity, sexual activity if having any worsening issues I recommended he return to the emergency department or going directly to design engineer marine equipment. Patient indicated she understood was in agreement. [...] AA >60 (more content not included)... Normal [facility] ED Note-Nursingon 03-09-2022 Beta HCG [...] patients second , 1 live . Normal [facility] ED Patient Summaryon 022 ED Patient Summary [facility] - Emergency Department [address] [place] [id number] PATIENT DISCHARGE INSTRUCTIONS Patient Information Name: DIANE [...] (N93.9) Vaginal bleeding - < 20 wks ([id number]) Prescription Information: If you have been given a prescription for narcotics, seek immediate medical attention if you have any difficulty breathing or any sudden status changes such as confusion and sleepiness. If you or anyone you know is experiencing suicidal thoughts, mental health, alcohol and/or drug addiction problems; contact the [facility] 21/05 Crisis Hotline -text 4hope to 741741. [...] documents With: Address: When: Follow-up with your design engineer marine equipment for reevaluation next few days. Within 1 to 2 days Comments: Follow-up with design engineer marine equipment for reevaluation next few days for reevaluation and outpatient quantitative hCG. Return immediately for any worsening issues such as increasing abdominal pains, increasing vaginal bleeding, fevers, or any other problems. With: Address: When: Stephanie Padilla Within 3 to 5 days Comments: Greige Mender Medication Information: The exam and treatment you received today in the [facility] Emergency Department were for an urgent problem and are not intended as complete care. It is important for you to follow up with a doctor, nurse practitioner, or physician?s assistant refinery operator for ongoing care. If your symptoms become [...] so we can reach you if necessary. [facility] Emergency Department has provided you with a complete list of medications post discharge. Please inform your certified performance technologist/provider of your visit and for further instruction [...] The sec (more content not included)... Normal [facility] Extra Green 03-09-2022 Tube Collected Yes Invalid Interpretation Code [facility] Comment on above: Performed By: #### 1 [id number], [id number], [id number] #### [facility] (DEFAULT) [address] [place] [id number] PT/PTTon 03-09-2022 INR Coag (PPP) [Relative time] 0.95 {INR} Normal 0.91-1.11 [facility] Comment on above: Performed By: #### 1 [id number], [id number] #### [facility] (DEFAULT) [address] [place] [address] PT 10.3 second(s) Normal 9.7-11.8 [facility] Comment on above: Performed By: #### 1 [id number], [id number], [id number], [id number], [id number], [id number], [id number] #### [facility] (DEFAULT) 03 [place] [address] PTT 34 second(s) Normal 25-35 [facility] Comment on above: Performed By: #### 1 [id number], [id number], 3604187, [id number], 24160701, 4822659, [id number], [id number], [id number], [id number] #### [facility] (DEFAULT) [address] [place] [address] RhIG.on 03-09-2022 RhIG. No. Vials RhI RhIG Candidate?: No Date to Give: [id number] RhIG Status: RhIG Ready Normal [facility] Comment on above: Performed By: #### 1 [id number], 40137102, 4193738, [id number], 54806410, 8601361, [id number], [id number], [id number], 8137781 ####[facility] (DEFAULT)[address] [place] [address] UA [id number] 03-09-2022 UA Amorph. 1+ [facility] Comment on above: Order Comment: Urina lysis Microscopic order added on by Discern Expert Rules system. Performed By: #### 5 [id number], [id number], [id number] ####[facility] (DEFAULT)[address] [place] [address] UA Bacteria 2+ [facility] Comment on above: Order Comment: Urina lysis Microscopic order added on by Discern Expert Rules system. Performed By: #### 5 [id number], [id number], [id number] ####[facility] (DEFAULT)[address] [place] [address] UA Mucous 3+ [facility] Comment on above: Order Comment: Urina lysis Microscopic order added on by Discern Expert Rules system. Performed By: #### 5 [id number], 7057907, [id number] ####[facility] (DEFAULT)[address] [place] [address] UA RBC >100 [facility] Comment on above: Order Comment: Urina lysis Microscopic order added on by Discern Expert Rules system. Performed By: #### 5 [id number], 4333046, [id number] ####[facility] (DEFAULT)[address] [place] [address] UA Squam Epi Many [facility] Comment on above: Order Comment: Urina lysis Microscopic order added on by Discern Expert Rules system. Result Comment: DMITRY VERGARA RN IN ER. RUN UNINALYSIS AND CULTURE ON THIS SPECIMEN. NO RECOLLECT. Performed By: #### 5 [id number], 5677750, [id number] ####[facility] (DEFAULT)[address] [place] [address] UA WBC 3-5 [facility] Comment on above: Order Comment: Urina lysis Microscopic order added on by Discern Expert Rules system. Performed By: #### 5 [id number], 3922057, [id number] ####[facility] (DEFAULT)[address] [place] [address] UA w Culture if Ind Standard on 03-09-2022 Breakpoint UA [facility] Comment on above: Performed By: #### 1 [id number], 32649599, 6955230, 5210342499, 70945085, 3748191, 1346533011, [id number], [id number], 8458673 #### [facility] (DEFAULT) [address] [place] [address] Color (U) Yellow Normal [facility] Comment on above: Performed By: #### 1 1390759, 77282481, 0943450, 3342150243, 66353741, 8412201, 1662291812, 9737515269, [id number], 4707331 #### [facility] (DEFAULT) [address] [place] [address] Culture? Indicated Invalid Interpretation Code [facility] Comment on above: Result Comment: Resu lt created by rule GL_MAGR_ADD_UA_CULT Result created by rule GL_MAGR_ADD_UA_CULT Result created by rule GL_MAGR_ADD_UA_CULT1 Result created by rule GL_MAGR_ADD_UA_CULT Performed By: #### 1 [id number], 90059111, 4830750, [id number], 30486938, 6572738, 6231105153, 1611176442, [id number], 2034374 #### [facility] (DEFAULT) [address] [place], [place] [address] Glucose (U) [Mass/Vol] Negative [facility] Comment on above: Performed By: #### 1 9107452, 43260474, 8010052, 8741754679, 70647249, 9774813, 7815563433, 4544152512, 6498855067, 4085725 #### [facility] (DEFAULT) [address] [place] [address] Ketones Ql (U) 40 Normal [facility] Comment on above: Performed By: #### 1 [id number], 42415060, 2413712, 5864806814, 46457465, 6863939, 1758772444, 1550197671, 0791547960, 1278514 #### [facility] (DEFAULT) [address] [place] [address] Micro? Indicated Invalid Interpretation Code [facility] Comment on above: Result Comment: Resu lt created by rule GL_MAGR_ADD_UA_MICRO Performed By: #### 1 7144117, 65097323, 7800218, 6852841620, 30973729, 9074054, 7730085097, 3214116844, 3811383575, 1419645 #### [facility] (DEFAULT) [address] [place] [address] UA Bilirubin Negative Normal [facility] Comment on above: Performed By: #### 1 4769414, 67833911, 3365798, 0978725732, 48305371, 5226697, 6524911104, 3761886218, 6827969901, 2741878 #### [facility] (DEFAULT) [address] [place] [address] UA Blood LARGE Abnormal NEGATIVE [facility] Comment on above: Performed By: #### 1 7520394, 43638403, 4104880, 9956962299, 93670295, 5276871, 8096225167, 9731897824, 5338062324, 7756408 #### [facility] (DEFAULT) [address] [place] [address] UA Clarity SL CLOUDY Abnormal CLEAR [facility] Comment on above: Performed By: #### 1 8195402, 62338747, 2855767, 6502810952, 69757493, 7726882, 8640434472, 9555423076, 5075055619, 9375202 #### [facility] (DEFAULT) [address] [place] [address] UA Leuk Est TRACE Abnormal NEGATIVE [facility] Comment on above: Performed By: #### 1 9412412, 35731928, 4365573, 7448579383, 24746045, 0609616, 6673409188, 1866356395, 7745767965, 2113673 #### [facility] (DEFAULT) [address] [place] [address] UA Nitrite Negative Normal NEGATIVE [facility] Comment on above: Performed By: #### 1 5352330, 95547318, 1783163, 6094922650, 89283892, 9118208, 7279185441, 2863933080, 3002366440, 9527539 #### [facility] (DEFAULT) [address] [place] [address] UA pH 6.5 Normal 5-8 [facility] Comment on above: Performed By: #### 1 9919920, 67542856, 1705344, 1992019120, 08529696, 0910834, 6736427658, 8237680978, 4701930904, 2106275 #### [facility] (DEFAULT) [address] [place] [address] UA Protein Negative Normal NEGATIVE [facility] Comment on above: Performed By: #### 1 7222360, 12955519, 3546371, 2995841886, 18512422, 8077157, 0581651097, 6811993629, 8739150854, 8893349 #### [facility] (DEFAULT) [address] [place] [address] UA Spec Grav 1.015 Normal 1.001-1.035 [facility] Comment on above: Performed By: #### 1 2213794, 91240593, 2986710, 8515482293, 00729060, 5844960, 7899553139, 2546015960, 8120369142, 7460833 #### [facility] (DEFAULT) [address] [place] [address] UA Urobilinogen 0.2 mg/dL Normal 0.2-1.0 [facility] Comment on above: Performed By: #### 1 5118854, 85432583, 1050989, 1367167618, 40903294, 9258525, 6385027883, 8550409376, 6498190566, 0732174 #### [facility] (DEFAULT) [address] [place] [address] Urine Source Clean Catch [facility] Comment on above: Performed By: #### 1 8644044, 05739993, 9502282, 2080846253, 66005693, 9890034, 1583540922, 0151632315, 3133337656, 9219095 #### [facility] (DEFAULT) [address] [place] [address] US 1st Trimesteron 03-09-2022 US 1st Trimester [...] Sebastian Guzman 03/09/22 6:10 pm Technologist: PM [facility] US Transvaginalon 03-09-2022 US Transvaginal EXAM: [...] Guzman 03/09/22 6:10 pm Technologist: PM Normal [facility] hCG Quantitativeon 2 hCG Quantitative 7.1 mIU/mL High 0.0-0.6 [facility] Comment on above: Result Comment: Post -Menopausal Reference Range is: 0.1-11.6 mIU/mL Performed By: #### 1 [id number], 12277741, 9567532, 4312086975, 10056161, 0353598, 2482961187, 7632185151, 5902019290, 7651982 #### [facility] (DEFAULT) [address] [place] [address] Vital Signs Date Time Vital Sign Value Performing Clinician Facility 12-13-2023 15:00-0500 Body mass index (BMI) [Ratio] 46.69 kg/m2 [facility] Nurse [facility] 12-13-2023 15:00-0500 Body weight 123.38 kg [facility] Nurse [facility] 12-13-2023 15:00-0500 Diastolic blood pressure 78 mm[Hg] [facility] Nurse [facility] 12-13-2023 15:00-0500 Systolic blood pressure 128 mm[Hg] [facility] 05-15-2023 18:30-0400 Body height 161.29 cm Linsey Witt Other [facility] Other 05-15-2023 18:30-0400 Body mass index (BMI) [Ratio] 43.41 kg/m2 Linsey Eduar Other [facility] Other 05-15-2023 18:30-0400 Body temperature 99.2 [degF] Linsey Eduar Other [facility] Other 05-15-2023 18:30-0400 Body weight 112.95 kg Linsey Eduar Other [facility] Other 05-15-2023 18:30-0400 Respiratory rate 18 /min Linsey Witt Other [facility] Other 05-15-2023 18:30-0400 SaO2% (BldA) [Mass fraction] 99 % Linsey Witt Other [facility] Other 05-09-2023 11:00-0400 Body height 161.29 cm Gissel Santana Other [facility] Other 05-09-2023 11:00-0400 Body mass index (BMI) [Ratio] 43.59 kg/m2 Gissel Santana Other [facility] Other 05-09-2023 11:00-0400 Body weight 113.4 kg Gissel Santana Other [facility] Other 05-09-2023 11:00-0400 Diastolic blood pressure 83 mm[Hg] Gissel Santana Other [facility] Other 05-09-2023 11:00-0400 Systolic blood pressure 119 mm[Hg] Gissel Santana Other [facility] Other 04-12-2023 09:00-0400 Body height 161.29 cm Gissel Santana Other [facility] Other 04-12-2023 09:00-0400 Body mass index (BMI) [Ratio] 43.59 kg/m2 Gissel Santana Other [facility] Other 04-12-2023 09:00-0400 Body weight 113.4 kg Gissel Santana Other [facility] Other 04-12-2023 09:00-0400 Diastolic blood pressure 88 mm[Hg] Gissel Santana Other [facility] Other 04-12-2023 09:00-0400 Systolic blood pressure 129 mm[Hg] Gissel Santana Other [facility] Other 10-11-2022 02:06-0500 Body weight 111.[address] ESTELLA MIN . [facility] Comment on above: Performed By: #### AFPMAT #### [facility] [address] [place] [address] Dr. Alexsander Dickinson Encounters Encounter Date Encounter Type Care Provider Facility Start: 02-11-2024 End: 02-11-2024 ambulatory ESTELLA MECHELLE Not Available Start: 01-14-2024 End: 01-14-2024 ambulatory ESTELLA MECHELLE Not Available Start: 12-13-2023 End: 12-13-2023 ambulatory ESTELLA MECHELLE Not Available Start: 12-13-2023 End: 12-13-2023 Office outpatient visit 5 minutes [facility]echelle Nurse [facility] Comment on above: [place]: 9w0d Start: 11-06-2023 End: 11-06-2023 ambulatory Gissel Santana Other [facility] Other Start: 11-06-2023 Encounter by donald Santana [facility] Start: 05-22-2023 End: 05-22-2023 ambulatory Olive Howard Other [facility] Other Start: 05-22-2023 Telephone encounter Olive GARCES [facility] Start: 05-15-2023 End: 05-15-2023 ambulatory Linsey Witt Facility:[facility] Start: 05-15-2023 End: 05-15-2023 Departed Referred INSTRUCTOR PHYSICAL EDUCATION Linsey Witt Work Phone: [facility] [place] Work Phone: Start: 05-15-2023 End: 05-15-2023 ambulatory INSTRUCTOR PHYSICAL EDUCATION Linsey Witt Work Phone: [facility] Work Phone: Start: 05-15-2023 Office outpatient vi sit 25 minutes Linsey Witt [facility] Start: 05-09-2023 End: 05-09-2023 ambulatory Gissel Santana Other [facility] Other Start: 05-09-2023 Office outpatient vi sit 15 minutes Gissel Santana [facility] Start: 04-12-2023 End: 04-12-2023 ambulatory Gissel Santana Other [facility] Other Start: 04-12-2023 Encounter for genera l adult medical examination without abnormal findings Gissel Santana [facility] Start: 04-12-2023 Periodic preventive med est patient 18-39 yrs Gissel Santana [facility] Start: 02-15-[address] ESTELLA MIN [...] encounter procedure 01/14/2024 8:30 AM EDT Routine [facility] [address] [place] [id number] Estella Min, DO [address] [place] [address] [facility] Start: 12-13-2023 End: 12-13-2024 ABO/Rh ABO/Rh Lab Routine Missed menses Expected: 12/13/2023 (Approximate), Expires: 12/13/2024 [facility] Comment on above: Expected: 12/13/2023 (Approximate), Expires: 12/13/2024 Start: 12-13-2023 End: 12-13-2024 Blood type and Indirect antibody screen panel - Blood Type and screen Lab Routine Missed menses Expected: 12/13/2023 (Approximate), Expires: 12/13/2024 [facility] Work Phone: Comment on above: Expected: 12/13/2023 (Approximate), Expires: 12/13/2024 Start: 12-13-2023 End: 12-13-2024 Thyroid panel with tsh Thyroid panel with tsh Lab Routine Missed menses Expected: 12/13/2023 (Approximate), Expires: 12/13/2024 [facility] Comment on above: Expected: 12/13/2023 (Approximate), Expires: 12/13/2024 Start: 12-13-2023 End: 12-13-2024 US Pelvis transvaginal US OB transvaginal Imaging Routine Missed menses Expected: 12/13/2023 (Approximate), Expires: 12/13/2024 [facility] Comment on above: Expected: 12/13/2023 (Approximate), Expires: 12/13/2024 Start: 05-15-2023 Throat culture Throat Culture [facility] Bacteria identified in Urine by Culture Urine culture Microbiology Routine Missed menses Ordered: 12/13/2023 [facility] Comment on above: Ordered: 12/13/2023 CBC W Auto Different ial panel - Blood CBC and differential Lab Routine Missed menses Ordered: 12/13/2023 [facility] Comment on above: Ordered: 12/13/2023 Hemoglobin A1c/Hemoglobin.total in Blood Hemoglobin A1c Lab Routine Missed menses Ordered: 12/13/2023 [facility] Comment on above: Ordered: 12/13/2023 Hepatitis B virus surface Ag [Presence] in Serum or Plasma by Immunoassay Hepatitis B surface antigen Lab Routine Missed menses Ordered: 12/13/2023 [facility] Comment on above: Ordered: 12/13/2023 Hepatitis C virus Ab [Presence] in Serum or Plasma by Immunoassay Hepatitis C antibody Lab Routine Missed menses Ordered: 12/13/2023 [facility] Comment on above: Ordered: 12/13/2023 HIV-1/HIV-2 antigen/antibody combination immunoassay HIV-1 and HIV-2 antibodies Lab Routine Missed menses Ordered: 12/13/2023 [facility] Comment on above: Ordered: 12/13/2023 Reagin Ab [Presence] in Serum by RPR RPR Lab Routine Missed menses Ordered: 12/13/2023 [facility] Comment on above: Ordered: 12/13/2023 Rubella antibody, IgG Rubella an tibody, IgG Lab Routine Missed menses Ordered: 12/13/2023 [facility] Comment on above: Ordered: 12/13/2023 Payers Date Payer Category Payer Unknown BCBS BCBS xxxxxx [id number] 2020-Present [phone] [address] [place] [address] [id number] 1994 Unknown [id number] 2.16.840.1.381520.3.579.2.593 1994 Unknown [id number] 2.16.840.1.070455.3.579.2.593 1994 Unknown [id number] 2.16.840.1.797947.3.579.2.593 1994 Unknown [id number] 2.16.840.1.703791.3.579.2.593 1994 Unknown [id number] 2.16.840.1.302422.3.579.2.593 1994 Unknown [id number] 2.16.840.1.108133.3.579.2.593 1994 Unknown [id number] 2.16.840.1.796765.3.579.2.593 1994 Unknown [id number] 2.16.840.1.126920.3.579.2.593 1994 Unknown [id number] 2.16.840.1.569738.3.579.2.593 1994 Unknown [id number] 2.16.840.1.895791.3.579.2.593 1994 Unknown [id number] 2.16.840.1.931132.3.579.2.593 1994 Unknown [id number] 2.16.840.1.721115.3.579.2.593 1994 Unknown [id number] 2.16.840.1.034711.3.579.2.593 1994 Unknown [id number] 2.16.840.1.606402.3.579.2.593 1994 Unknown [id number] 2.16.840.1.751521.3.579.2.593 1994 Unknown [id number] 2.16.840.1.870128.3.579.2.593 1994 Unknown [id number] 2.16.840.1.688377.3.579.2.593 1994 Unknown [id number] 2.16.840.1.777886.3.579.2.593 1994 Unknown [id number] 2.16.840.1.158023.3.579.2.593 1994 Unknown [id number] 2.16.840.1.668285.3.579.2.593 1994 Unknown [id number] 2.16.840.1.859622.3.579.2.593 1994 Unknown [id number] 2.16.840.1.022085.3.579.2.593 1994 Unknown [id number] 2.16.840.1.605539.3.579.2.593 1994 Unknown [id number] 2.16.840.1.172892.3.579.2.593 1994 Unknown [id number] 2.16.840.1.089646.3.579.2.1259 1994 Unknown [id number] 2.16.840.1.016328.3.579.2.1259 1994 Unknown [id number] 2.16.840.1.180075.3.579.2.1259 1959 Self-pay 1959 Unknown [id number] Unknown [id number] 2.16.840.1.818867.3.579.2.593 Unknown [id number] 2.16.840.1.265694.3.579.2.531 Social History Date Type Detail Facility Unknown if ever smoked [facility] Other Start: 03-12-2023 Sex Assigned At N [facility] Other Start: 1995 Sex Assigned At Female F [facility] Start: 03-12-2023 Tobacco smoking status PAIS Never smoked tobacco [facility] Start: 03-12-2023 Tobacco use and exposure Smokeless tobacco non-user [facility] Start: 12-13-2023 Alcohol intake Lifetime non-d иван (finding) [facility] Start: 03-12-2023 History of Social function [facility] Start: 10-25-2023 [facility] Start: 1994 Sex Assigned At Not on file [facility] Clinical Notes 03-09-2022 to 12-13-2023 Meenakshi [...] or undercooked meat, and stay away from [facility]. Patient has also been advised to not [...] Meenakshi Rosenthal MA documented in this encounter [facility] 05-15-2023 Evaluation note Encounter Date Diagnosis [...] understanding and is agreeable to treatment plan. [facility] Other 07-12-2023 Evaluation note* Encounter Date Diagnosis Assessment Notes Treatment Notes Treatment Clinical Notes Apr, Anxiety disorder, unspecified (ICD-10 - F41.9) Pt states that she, and her , agree that she is doing better on the medication. Continues to have stress, but is dealing more appropriately. Would like to continue this med and this dose. f/u6 months, sooner if needed. [facility] Other 06-15-2023 Evaluation note* Encounter Date Diagnosis [...] help for overwhelm. followup in 1 month [facility] Other 05-12-2022 NoteEducation Materials Cardiovascular Hypertension, Adult [...] without skin, beans, e (more content not included)...[facility] noteNo assessment information available[facility] Work Phone: Evaluation noteNo InformationNort Nov[employer] Other Evaluation note* Diagnosis Missed menses documented in this encounter [facility] Narrative - Reported* Type Description Date Surgical History C-sect 2019 Surgical History C-sect 2022 [facility] Other [facility] Narrative - Reported* Type Description Date Medical History Anxiety disorder, unspecified Surgical History C-sect 2019 Surgical History C-sect 2022 Hospitalization History SEE SURGICAL HX [facility] Other Hisyhil general Narrative - Reported* Type Description Date Medical History Anxiety disorder, unspecified Medical History Gestational diabetes Surgical History C-sect 2019 Surgical History C-sect 2022 Hospitalization History SEE SURGICAL HX [facility] Other Summary Purpose Family History No Family History Records FoundNo Family History Records FoundNo Family History Records FoundNo Family History Records Found Advance Directives No Advanced Directives Records FoundNo Advanced Directives Records FoundNo Advanced Directives Records FoundNo Advanced Directives Records Found Additional Source Comments INFORMATION SOURCE (unrecogn ized section and content) DATE CREATED AUTHOR 03/18/2022 [facility] DATE CREATED AUTHOR AUTHOR'S ORGANIZ ATION 02/15/2023 [facility] DATE CREATED AUTHOR AUTHOR'S ORGANIZ ATION 05/24/2023 [facility] DATE CREATED AUTHOR AUTHOR'S ORGANIZ ATION 02/11/2024 [facility] EPIC REASON FOR VISIT (unrecogniz ed section and content) Reason Comments Amenorrhea Care Teams (unrecognized sec tion and content) Team Status: Inactive Member Role Status Dates Linsey Witt APRN Attending Provider Active Phlebotomy Manager Relationship Specialty Start Date End Date Gissel Santana MD [address] [place] [address] PCP - General Family Medicine [...] BE BASED ON THE PRIMARY CLINICAL RECORDS. [facility] provides no warranty or guarantee of the accuracy or completeness of information in this document.
[2024-02-14 15:09] LABS: Age Gdln ACOG Testing Note (.); IGP, rfx Aptima HPV ASCU Note (.)
== END 2024-02-11 20:17 | disposition home or self-care (01) ==
LOC: LAB 20:16
PROVIDERS: Visit Provider Obstetrics & Gynecology
DX: Z01.419 Encounter for gynecological examination (general) (routine) without abnormal findings (principal)
CPT/HCPCS: G0145

== ENCOUNTER 2024-02-15 06:59 | Outpatient (OUT) | payer BC, SELFPAY ==
--- OUTSIDE RECORDS SUMMARY | 2024-02-15 07:02 | XMS_ITS | CCD ---
[facility] Organization [facility] [place] Care Team Providers Care Luncheonette Manager Name Role Phone MECHELLE ., DR [...] DR SORIA Attending Unavailable MECHELLE ., DR SORAI Consulting Unavailable MECHELLE ., DR SORIA Admitting Unavailable SANTANA, DR GISSEL Teresa Primary Care Unavailable MECHELLE ., DR SORIA Attending Unavailable MECHELEL ., DR SORIA Consulting Unavailable MECHELLE ., [...] Unavailable MECHELLE ., DR SORIA Admitting Unavailable Enderlin, Sebastian Consulting Unavailable SANTANA, DR GISSEL Teresa [...] Unavailable Gissel Santana MD Primary Care Provider [phone] ESTELLA MIN Attending Unavailable ESTELLA MIN Attending [...] Interpretation and review of laboratory results Abnormal [facility] Healthca re Preg Test, Ur Positive [facility] Urinalysis macro (dipstick) panel (U)on 12-13-2023 Bilirubin, UA Negative Negative - 4(70) +++ mg/dL [facility] Blood, UA Negative Negative - 50 Sal/mcL [facility] Clarity, UA Clear [facility] re Color, UA Yellow [facility]MoneyDesktop e Glucose, UA Negative Negative - 1999(110) ++++ mg/dL [facility] Interpretation and review of laboratory results Abnormal [facility] Healthks re Ketones, UA Positive Negative - 160(16) ++++ mg/dL [facility] Leukocytes, UA Negative Negative - 500+++ Lizzy/mcL [facility] Nitrite, UA Negative Negative - Positive [facility] pH, UA 7.0 5 - 9 [facility] Healthcar e Protein, UA Positive Negative - 1999(20) ++++ mg/dL [facility] Spec Grav, UA 1.030 1 - 1.03 [facility] Urobilinogen, UA 0.2 0.2 - 12 mg/dL [facility] Quick Strepon 05-15-2023 S. pyogenes Org specific cx Ql (Throat) Negative [facility] [employer] Other Quick Strep [facility] [employer] Other Throat Cultureon 05-15-2023 Throat culture Heavy Normal Respiratory John 2 Days PERFORMED BY: [address] [id number] PATHOLOGIST FILTER WORKER ARACELI HAYWOOD M.D. Normal [facility] Comment on above: Performed By: #### C UT #### [address] GROUP B STREP CULTUREon 01-27 S. [...] F Tetracycline <=0.25 S F Normal [facility] Comment on above: Performed By: #### A FPMAT #### [facility] [address] [place] [address] Dr. Alexsander Dickinson CBC AUTO DIFFon 02-02-2023 BASO # 0.0 103/ul Normal 0.0-0.1 [facility] Comment on above: Performed By: #### C BC #### [facility] [address] [place] [address] Dr. Alexsander Dickinson Basophils/100 WBC (Bld) 0.2 % Normal 0.2-2.0 [facility] Comment on above: Performed By: #### C BC #### [facility] [address] [place] [address] Dr. Alexsander Dickinson EO # 0.0 103/ul Normal 0.0-0.7 [facility] Comment on above: Performed By: #### C BC #### [facility] [address] [place] [address] Dr. Alexsander Dickinson Eosinophils/100 WBC (Bld) 0.0 % Critically low 0.9-7.0 [facility] Comment on above: Performed By: #### C BC #### [facility] [address] [place] [address] Dr. Alexsander Dickinson Erythrocyte distribution width (RBC) [Ratio] 12.5 % Normal 11.0-15.0 [facility] Comment on above: Performed By: #### C BC #### [facility] [address] [place] [address] Dr. Alexsander Dickinson Hematocrit (Bld) [Volume fraction] 32.9 % Critically low 36.0-48.0 [facility] Comment on above: Performed By: #### C BC #### [facility] [address] [place] [address] Dr. Alexsander Dickinson Hemoglobin (Bld) [Mass/Vol] 10.7 g/dL Critically low 12.0-16.0 [facility] Comment on above: Performed By: #### C BC #### [facility] [address] [place] [address] Dr. Alexsander Dickinson IG # 0.12 10e3/ul Critically high 0.00-0.03 [facility] Comment on above: Performed By: #### C BC #### [facility] [address] [place] [address] Dr. Alexsander Dickinson IG % 0.7 % Critically high 0.0-0.5 [facility] Comment on above: Performed By: #### C BC #### [facility] [address] [place] [address] Dr. Alexsander Dickinson LYMPH # 1.1 103/ul Critically low 1.2-3.8 [facility] Comment on above: Performed By: #### C BC #### [facility] [address] [place] [address] Dr. Alexsander Dickinson Lymphocytes/100 WBC (Bld) 6.4 % Critically low 20.5-60.0 [facility] Comment on above: Performed By: #### C BC #### [facility] [address] [place] [address] Dr. Alexsander Dickinson MANUAL DIFF REQ NO Normal [facility] Comment on above: Performed By: #### C BC #### [facility] [address] [place] [address] Dr. Alexsander Dickinson MCH (RBC) [Entitic mass] 26.1 pg Critically low 26.7-34.0 [facility] Comment on above: Performed By: #### C BC #### [facility] [address] [place] [address] Dr. Alexsander Dickinson MCHC (RBC) [Mass/Vol] 32.5 g/dL Normal 29.9-35.2 [facility] Comment on above: Performed By: #### C BC #### [facility] [address] [place] [address] Dr. Alexsander Dickinson MCV (RBC) [Entitic vol] 80.2 fL Critically low 81.0-99.0 [facility] Comment on above: Performed By: #### C BC #### [facility] [address] [place] [address] Dr. Alexsander Dickinson MONO # 0.4 103/ul Normal 0.3-0.8 [facility] Comment on above: Performed By: #### C BC #### [facility] [address] [place] [address] Dr. Alexsander Dickinson Monocytes/100 WBC (Bld) 2.1 % Normal 1.7-12.0 [facility] Comment on above: Performed By: #### C BC #### [facility] [address] [place] [address] Dr. Alexsander Dickinson NEUT # 15.5 103/ul Critically high 1.4-6.5 [facility] Comment on above: Performed By: #### C BC #### [facility] [address] [place] [address] Dr. Alexsander Dickinson Neutrophils/100 WBC (Bld) 90.6 % Critically high 43.0-75.0 [facility] Comment on above: Performed By: #### C BC #### [facility] [address] [place] [address] Dr. Alexsander Dickinson Platelet mean volume (Bld) [Entitic vol] 10.7 fL Normal 9.5-13.5 [facility] Comment on above: Performed By: #### C BC #### [facility] [address] [place] [address] Dr. Alexsander Dickinson PLT 310 103/ul Normal 150-450 [facility] Comment on above: Performed By: #### C BC #### [facility] [address] [place] [address] Dr. Alexsander Dickinson RBC 4.10 106/ul Critically low 4.20-5.40 [facility] Comment on above: Performed By: #### C BC #### [facility] [address] [place] [address] Dr. Alexsander Dickinson WBC 17.1 103/ul Critically high 4.0-11.0 [facility] Comment on above: Performed By: #### C BC #### [facility] [address] [place] [address] Dr. Alexsander Dickinson CBC AUTO DIFFon 02-01-2023 BASO # 0.0 103/ul Normal 0.0-0.1 [facility] Comment on above: Performed By: #### A 1C #### [facility] [address] [place] [address] Dr. Alexsander Dickinson Basophils/100 WBC (Bld) 0.2 % Normal 0.2-2.0 [facility] Comment on above: Performed By: #### A 1C #### [facility] [address] [place] [address] Dr. Alexsander Dickinson EO # 0.0 103/ul Normal 0.0-0.7 [facility] Comment on above: Performed By: #### A 1C #### [facility] [address] [place] [address] Dr. Alexsander Dickinson Eosinophils/100 WBC (Bld) 0.4 % Critically low 0.9-7.0 [facility] Comment on above: Performed By: #### A 1C #### [facility] [address] [place] [address] Dr. Alexsander Dickinson Erythrocyte distribution width (RBC) [Ratio] 12.9 % Normal 11.0-15.0 [facility] Comment on above: Performed By: #### A 1C #### [facility] [address] [place] [address] Dr. Alexsander Dickinson Hematocrit (Bld) [Volume fraction] 34.2 % Critically low 36.0-48.0 [facility] Comment on above: Performed By: #### A 1C #### [facility] [address] [place] [address] Dr. Alexsander Dickinson Hemoglobin (Bld) [Mass/Vol] 11.4 g/dL Critically low 12.0-16.0 [facility] Comment on above: Performed By: #### A 1C #### [facility] [address] [place] [address] Dr. Alexsander Dickinson IG # 0.04 10e3/ul Critically high 0.00-0.03 [facility] Comment on above: Performed By: #### A 1C #### [facility] [address] [place] [address] Dr. Alexsander Dickinson IG % 0.5 % Normal 0.0-0.5 [facility] Comment on above: Performed By: #### A 1C #### [facility] [address] [place] [address] Dr. Alexsander Dickinson LYMPH # 2.1 103/ul Normal 1.2-3.8 [facility] Comment on above: Performed By: #### A 1C #### [facility] [address] [place] [address] Dr. Alexsander Dickinson Lymphocytes/100 WBC (Bld) 23.9 % Normal 20.5-60.0 [facility] Comment on above: Performed By: #### A 1C #### [facility] [address] [place] [address] Dr. Alexsander Dickinson MANUAL DIFF REQ NO Normal [facility] Comment on above: Performed By: #### A 1C #### [facility] [address] [place] [address] Dr. Alexsander Dickinson MCH (RBC) [Entitic mass] 27.0 pg Normal 26.7-34.0 [facility] Comment on above: Performed By: #### A 1C #### [facility] [address] [place] [address] Dr. Alexsander Dickinson MCHC (RBC) [Mass/Vol] 33.3 g/dL Normal 29.9-35.2 [facility] Comment on above: Performed By: #### A 1C #### [facility] [address] [place] [address] Dr. Alexsander Dickinson MCV (RBC) [Entitic vol] 81.0 fL Normal 81.0-99.0 [facility] Comment on above: Performed By: #### A 1C #### [facility] [address] [place] [address] Dr. Alexsander Dickinson MONO # 0.5 103/ul Normal 0.3-0.8 [facility] Comment on above: Performed By: #### A 1C #### [facility] [address] [place] [address] Dr. Alexsander Dickinson Monocytes/100 WBC (Bld) 6.0 % Normal 1.7-12.0 [facility] Comment on above: Performed By: #### A 1C #### [facility] [address] [place] [address] Dr. Alexsander Dickinson NEUT # 5.9 103/ul Normal 1.4-6.5 [facility] Comment on above: Performed By: #### A 1C #### [facility] [address] [place] [address] Dr. Alexsander Dickinson Neutrophils/100 WBC (Bld) 69.0 % Normal 43.0-75.0 [facility] Comment on above: Performed By: #### A 1C #### [facility] [address] [place] [address] Dr. Alexsander Dickinson Platelet mean volume (Bld) [Entitic vol] 10.5 fL Normal 9.5-13.5 [facility] Comment on above: Performed By: #### A 1C #### [facility] [address] [place] [address] Dr. Alexsander Dickinson PLT 275 103/ul Normal 150-450 [facility] Comment on above: Performed By: #### A 1C #### [facility] [address] [place] [address] Dr. Alexsander Dickinson RBC 4.22 106/ul Normal 4.20-5.40 [facility] Comment on above: Performed By: #### A 1C #### [facility] [address] [place] [address] Dr. Alexsander Dickinson WBC 8.6 103/ul Normal 4.0-11.0 [facility] Comment on above: Performed By: #### A 1C #### [facility] [address] [place] [address] Dr. Alexsander Dickinson LDHon 02-01-2023 LDH 124 U/L Normal 81-234 [facility] Comment on above: Performed By: #### C MP, LDH, URIC #### [facility] [address] [place] [address] Dr. Alexsander Dickinson POINT OF CARE GLUCOSEon Glucose [Mass/Vol] 98 mg/dL Normal 74-106 [facility] Comment on above: Performed By: #### A 1C #### [facility] [address] [place] [address] Dr. Alexsander Dickinson PROF 14(COMP METB)on 023 Albumin [Mass/Vol] 2.5 g/dL Critically low 3.4-5.0 [facility] Comment on above: Performed By: #### C MP, LDH, URIC #### [facility] [address] [place] [address] Dr. Alexsander Dickinson Albumin/Globulin [Mass ratio] 0.6 {ratio} Normal [facility] Comment on above: Performed By: #### C MP, LDH, URIC #### [facility] [address] [place] [address] Dr. Alexsander Dickinson ALP [Catalytic activity/Vol] 138 U/L Critically high 46-116 [facility] Comment on above: Performed By: #### C MP, LDH, URIC #### [facility] [address] [place] [address] Dr. Alexsander Dickinson ALT [Catalytic activity/Vol] 15 U/L Normal 14-59 [facility] Comment on above: Performed By: #### C MP, LDH, URIC #### [facility] [address] [place] [address] Dr. Alexsander Dickinson Anion gap [Moles/Vol] 14.5 mmol/L Normal [facility] Comment on above: Performed By: #### C MP, LDH, URIC #### [facility] [address] [place] [address] Dr. Alexsander Dickinson AST [Catalytic activity/Vol] 8 U/L Critically low 15-37 [facility] Comment on above: Performed By: #### C MP, LDH, URIC #### [facility] [address] [place] [address] Dr. Alexsander Dickinson Bilirubin [Mass/Vol] 0.2 mg/dL Normal 0.2-1.0 [facility] Comment on above: Performed By: #### C MP, LDH, URIC #### [facility] [address] [address] [address] Alexsander Dickinson Calcium [Mass/Vol] 8.6 mg/dL Normal 8.5-10.1 [facility] Comment on above: Performed By: #### C MP, LDH, URIC #### [facility] [address] [place] [address] Dr. Alexsander Dickinson Chloride [Moles/Vol] 103 mmol/L Normal 98-107 [facility] Comment on above: Performed By: #### C MP, LDH, URIC #### [facility] [address] [place] [address] Dr. Alexsander Dickinson CO2 [Moles/Vol] 23.7 mmol/L Normal 21.0-32.0 [facility] Comment on above: Performed By: #### C MP, LDH, URIC #### [facility] [address] [place] [address] Dr. Alexsander Dickinson Creatinine [Mass/Vol] 0.61 mg/dL Normal 0.55-1.02 [facility] Comment on above: Performed By: #### C MP, LDH, URIC #### [facility] [address] [place] [address] Dr. Alexsander Dickinson EGFR-AF UZBEK >60 Normal >=60 [facility] Comment on above: Performed By: #### C MP, LDH, URIC #### [facility] [address] [place] [address] Dr. Alexsander Dickinson EGFR-NON AF UZBEK >60 Normal >=60 [facility] Comment on above: Performed By: #### C MP, LDH, URIC #### [facility] [address] [place] [address] Dr. Alexsander Dickinson Globulin (S) [Mass/Vol] 4.1 g/dL Normal [facility] Comment on above: Performed By: #### C MP, LDH, URIC #### [facility] [address] [address] [address] Alexsander Dickinson Glucose [Mass/Vol] 123 mg/dL Critically high 74-106 [facility] Comment on above: Performed By: #### C MP, LDH, URIC #### [facility] [address] [place] [address] Dr. Alexsander Dickinson Potassium [Moles/Vol] 4.2 mmol/L Normal 3.5-5.1 [facility] Comment on above: Performed By: #### C MP, LDH, URIC #### [facility] [address] [place] [address] Dr. Alexsander Dickinson Protein [Mass/Vol] 6.6 g/dL Normal 6.4-8.2 [facility] Comment on above: Performed By: #### C MP, LDH, URIC #### [facility] [address] [place] [address] Dr. Alexsander Dickinson Sodium [Moles/Vol] 137 mmol/L Normal 136-145 [facility] Comment on above: Performed By: #### C MP, LDH, URIC #### [facility] [address] [place] [address] Dr. Alexsander Dickinson Urea nitrogen [Mass/Vol] 5.0 mg/dL Critically low 7.0-18.0 [facility] Comment on above: Performed By: #### C MP, LDH, URIC #### [facility] [address] [place] [address] Dr. Alexsander Dickinson Urea nitrogen/Creatinine [Mass ratio] 8.2 mg/mg Normal [facility] Comment on above: Performed By: #### C MP, LDH, URIC #### [facility] [address] [place] [address] Dr. Alexsander Dickinson PROTIMEon 02-01-2023 INR Coag (PPP) [Relative time] {INR} Normal [facility] Comment on above: Performed By: #### H BSANS #### [facility] [address] [place] [address] Dr. Alexsander Dickinson INR GUIDELINES SEE BELOW Normal [facility] Comment on above: Result Comment: CAROLEE RED INR: 2.0 - 3.0 CONDITIONS NOT LISTED BELOW 2.5 - 3.5 FOR PROSTHETIC HEART VALVE REPLACEMENT 2.5 - 3.5 RECURRENT THROMBOSIS Performed By: #### H BSANS #### [facility] [address] [place] [address] Dr. Alexsander Dickinson PT Coag (PPP) [Time] 9.2 s Normal 9.0-11.6 [facility] Comment on above: Performed By: #### H BSANS #### [facility] [address] [place] [address] Dr. Alexsander Dickinson PTTon 02-01-2023 aPTT Coag (Bld) [Time] 25.9 s Normal 22.3-36.2 [facility] Comment on above: Performed By: #### H BSANS #### [facility] [address] [place] [address] Dr. Alexsander Dickinson TYPE AND SCREENon 02-01-2023 TYPE AND SCREEN Negative Normal [facility] Comment on above: Performed By: #### A FPMAT #### [facility] [address] [place] [address] Dr. Alexsander Dickinson URIC ACID SERUMon 02-01-2023 Urate [Mass/Vol] 5.5 mg/dL Normal 2.6-6.0 [facility] Comment on above: Performed By: #### C MP, LDH, URIC #### [facility] [address] [place] [address] Dr. Alexsander Dickinson US PREG BIOPHY W [...] by: DEE GALLEGOS Date: 2023-02-01 15:04 Normal [facility] US PREG BIOPHY W NON [...] by: SEBASTIAN HENRY Date: 2023-01-25 15:18 Normal [facility] US PREG BIOPHY W NON [...] by: DEE GALLEGOS Date: 2023-01-19 06:16 Normal [facility] US PREG BIOPHY W NON [...] DEE GALLEGOS Date: 2023-01-11 15:38 Normal [facility] US PREG GROWTHon 01-11-2023 US PREG GROWTH [...] DEE GALLEGOS Date: 2023-01-11 16:42 Normal [facility] GTT 3 HR PREGon 12-01-2022 Glucose [Mass/Vol] 104 mg/dL Normal 74-106 [facility] Comment on above: Performed By: #### A 1C #### [facility] [address] [place] [address] Dr. Alexsander Dickinson Glucose [Mass/Vol] 182 mg/dL Normal [facility] Comment on above: Performed By: #### A 1C #### [facility] [address] [address] [address] Alexsander Dickinson Glucose [Mass/Vol] 114 mg/dL Normal [facility] Comment on above: Performed By: #### A 1C #### [facility] [address] [address] [address] Alexsander Dickinson Glucose [Mass/Vol] 73 mg/dL Normal [facility] Comment on above: Performed By: #### A 1C #### [facility] [address] [address] [address] Alexsander Dickinson PAP ACOG PANEL 2: 21 to 28on 11-18-2022 . . Normal [facility] Comment on above: Performed By: #### A 1C #### [facility] [address] [place] [address] Dr. Alexsander Dickinson Age Gdln ACOG Testing [facility] Comment on above: Performed By: #### A 1C #### [facility] [address] [place] [address] Dr. Alexsander Dickinson DIAGNOSIS: Comment [facility] Comment on above: Result Comment: NEGA TIVE FOR INTRAEPITHELIAL LESION OR MALIGNANCY. Performed By: #### A 1C #### [facility] [address] [address] [address] Alexsander Dickinson Methodology: Comment [facility] Comment on above: Result Comment: This liquid based ThinPrep(R) pap test was screened with the use of an image guided system. Performed By: #### A 1C #### [facility] [address] [place] [address] Dr. Alexsander Dickinson Note: Comment [facility] Comment on above: Result Comment: The Pap smear is a screening test designed to aid in the detection of premalignant and malignant conditions of the uterine cervix. It is not a diagnostic procedure and should not be used as the sole means of detecting cervical cancer. Both false-positive and false-negative reports do occur. . Performed By: #### A 1C #### [facility] [address] [place] [address] Dr. Alexsander Dickinson Performed by: Comment Normal [facility] Comment on above: Result Comment: Cici Clarke, Infrastructure Analyst (ASCP) Performed By: #### A 1C #### [facility] [address] [place] [address] Dr. Alexsander Dickinson Reflex Criteria: Comment [facility] Comment on above: Result Comment: The HPV DNA reflex criteria were not met with this specimen result therefore, no HPV testing was performed. . Performed By: #### A 1C #### [facility] [address] [place] [address] Dr. Alexsander Dickinson Specimen adequacy: Comment [facility] Comment on above: Result Comment: Sati sfactory for evaluation. No endocervical component is identified. Performed By: #### A 1C #### [facility] [address] [place] [address] Dr. Alexsander Dickinson CHLAMYDIA/GONOCOCCUS ZUNILDA ( AB/URINE/PAPon 11-17-2022 Chlamydia trachomatis, ZUNILDA Negative Normal Negative [facility] Comment on above: Performed By: #### A 1C #### [facility] [address] [place] [address] Dr. Alexsander Dickinson Neisseria gonorrhoeae, ZUNILDA Negative Normal Negative [facility] Comment on above: Performed By: #### A 1C #### [facility] [address] [place] [address] Dr. Alexsander Dickinson VAGINITIS/VAGINOSIS DNA PROB Jose De Jesus 11-16-2022 Reema species Negative Normal Negative [facility] Comment on above: Performed By: #### V AGINT #### [facility] [facility] [address] [place] [address] Dr. Alexsander Dickinson Gardnerella vaginalis Negative Normal Negative [facility] Comment on above: Performed By: #### V AGINT #### [facility] [address] [place] [address] Dr. Alexsander Dickinson Trichomonas vaginalis Negative Normal Negative [facility] Comment on above: Performed By: #### V AGINT #### [facility] [address] [place] [address] Dr. Alexsander Dickinson US PREG INCOMPLETE ANATOMYon 11-14-2022 PREG INCOMPLETE ANATOMY EXAMINATION: US PREG INCOMPLETE ANATOMY HISTORY: screening COMPARISON: No relevant comparison available. FINDINGS: Heart rate: 150 bpm position: Variable Anatomy: 4.8 x 5.8 mm choroid plexus cyst is again identified IMPRESSION: Stable choroid plexus cyst Electronically authenticated by: SEBASTIAN HENRY Date: 2022-11-14 16:19 Normal [facility] FREE T4on 10-19-2022 Free T4 [Mass/Vol] 0.89 ng/dL Normal 0.76-1.46 [facility] Comment on above: Performed By: #### H BSANS #### [facility] [address] [place] [address] Dr. Alexsander Dickinson TSHon 10-19-2022 TSH 1.303 uIU/mL Normal 0.358-3.740 [facility] Comment on above: Performed By: #### H BSANS #### [facility] [address] [address] [address] Alexsander Dickinson US PREG ANATOMY SINGLEon [...] DEE GALLEGOS Date: 2022-10-17 20:42 Normal [facility] AFP MATERNAL FOR SPINA BIFID Aon 10-11-2022 AFP MoM 1.49 Normal [facility] Comment on above: Performed By: #### A FPMAT #### [facility] [address] [address] [address] Alexsander Dickinson AFP Value 60.8 ng/mL Normal [facility] Comment on above: Performed By: #### A FPMAT #### [facility] [address] [address] [address] Alexsander Dickinson AFP, Serum for Spina Bifida Report Normal [facility] Comment on above: Performed By: #### A FPMAT #### [facility] [address] [address] [address] Alexsander Dickinson Comment Comment Normal [facility] Comment on above: Result Comment: Niurka Patricia, Ph.D., [facility] Director . References: Available Upon Request. . Multiples Of Median Cutoffs For AFP Elevations Fonseca 2.5 Black 2.8 IDD 2.0 Twins 4.5 Abbreviation Definitions IDD - Insulin Dep Diabetes OSBR - Open Spina Bifida Risk . For further inquiries contact [facility] at [phone]. . This test was developed and its performance characteristics determined by [facility]. It has not been cleared or approved by the Food and Drug Administration. Performed By: #### A FPMAT #### [facility] [address] [address] [address] Alexsander Tiwari Age Collection Date 19.4 weeks [facility] Comment on above: Performed By: #### A FPMAT #### [facility] [address] [place] [address] Dr. Alexsander Dickinson Gestat, Age Based on NILE Normal [facility] Comment on above: Result Comment: 02/2023 Recalculations are not recommended when gestational dating by LMP and ultrasound are within 10 days. Performed By: #### A FPMAT #### [facility] [address] [address] [address] Alexsander Dickinson Insulin Dep Diabetes No Normal [facility] Comment on above: Performed By: #### A FPMAT #### [facility] [address] [place] [address] Dr. Alexsander Dickinson Interpretation Comment Normal [facility] Comment on above: Result Comment: [...] Customer Services to discuss available options. The [employer] [place] [employer] recommends amniocentesis be offered to women age 35 and older. Performed By: #### A FPMAT #### [facility] [address] [place] [address] Dr. Alexsander Dickinson [age] Normal [facility] Comment on above: Performed By: #### A FPMAT #### [facility] [address] [place] [address] Dr. Alexsander Dickinson Multiple Gestation No Normal [facility] Comment on above: Performed By: #### A FPMAT #### [facility] [address] [place] [address] Dr. Alexsander Dickinson OSBR Risk 1 [place] 2809 Normal [facility] Comment on above: Performed By: #### A FPMAT #### [facility] [address] [place] [address] Dr. Alexsander Dickinson PDF . Normal [facility] Comment on above: Performed By: #### A FPMAT #### [facility] [address] [place] [address] Dr. Alexsander Dickinson Race Normal [facility] Comment on above: Performed By: #### A FPMAT #### [facility] [address] [place] [address] Dr. Alexsander Dickinson Test Results: Negative Normal [facility] Comment on above: Performed By: #### A FPMAT #### [facility] [address] [place] [address] Dr. Alexsander Dickinson GTT 3 HR PREGon 09-29-2022 Glucose [Mass/Vol] 99 mg/dL Normal 74-106 [facility] Comment on above: Performed By: #### A FPMAT #### [facility] [address] [address] [address] Alexsander Dickinson Glucose [Mass/Vol] 173 mg/dL Normal [facility] Comment on above: Performed By: #### A FPMAT #### [facility] [address] [address] [address] Alexsander Dickinson Glucose [Mass/Vol] 151 mg/dL Normal [facility] Comment on above: Performed By: #### A FPMAT #### [facility] [address] [address] [address] Alexsander Dickinson Glucose [Mass/Vol] 76 mg/dL Normal [facility] Comment on above: Performed By: #### A FPMAT #### [facility] [address] [address] [address] Alexsander Dickinson GLUCOSE - 1HRon 09-20-2022 Glucose [Mass/Vol] 159 mg/dL Critically high 74-106 [facility] Comment on above: Performed By: #### H BSANS #### [facility] [address] [address] [address] Alexsander Dickinson HEP B SURFACE ANTIGEN SCREEN on 08-17-2022 HBsAg Screen Negative Normal Negative [facility] Comment on above: Performed By: #### H BSANS #### [facility] [address] [address] [address] Alexsander Dickinson HEPATITIS C VIRUS AB W/ REFL EX QUANTon 08-17-2022 HCV AB <0.1 Normal 0.0-0.9 [facility] Comment on above: Performed By: #### A 1C #### [facility] [address] [address] [address] Alexsander Dickinson Interpretation: Comment Normal [facility] Comment on above: Result Comment: Nega tive Not infected with HCV, unless recent infection is suspected or other evidence exists to indicate HCV infection. Performed By: #### A 1C #### [facility] [address] [place] [address] Dr. Alexsander Dickinson HIV 1 AND 2 WITH REFLEXon HIV Screen 4th Generation wRfx Non-Reactive Normal Non Reactive [facility] Comment on above: Result Comment: HIV Negative HIV-1/HIV-2 antibodies and HIV-1 p24 antigen were NOT detected. There is no laboratory evidence of HIV infection. Performed By: #### H IV12 #### [facility] [address] [place] [address] Dr. Alexsander Dickinson RPR QUANTon 08-17-2022 Rapid Plasma Reagin, Quant Non-Reactive Normal NonRea<1:1 [facility] Comment on above: Result Comment: Plea se Note: This test does not meet current guidelines for screening and diagnosis of syphilis. This test is intended for following treatment response in patients being treated for syphilis infection. To screen for syphilis infection, a reflex cascade that includes both RPR and a treponema-specific assay should be utilized, such as Treponema pallidum (Syphilis) Screening [place] (684978) or Rapid Plasma Reagin (RPR) Test With Reflex to Quantitative RPR and Confirmatory Treponema pallidum Antibodies (228902). Performed By: #### H BSANS #### [facility] [address] [place] [address] Dr. Alexsander Dickinson RUBELLA AB IGGon 08-17-2022 Rubella Antibodies, IgG 11.90 index Normal Immune >0.99 [facility] Comment on above: Result Comment: Non- immune <0.90 Equivocal 0.90 - 0.99 Immune >0.99 Performed By: #### H BSANS #### [facility] [address] [place] [address] Dr. Alexsander Dickinson CBC AUTO DIFFon 08-16-2022 BASO # 0.1 103/ul Normal 0.0-0.1 [facility] Comment on above: Performed By: #### H BSANS #### [facility] [address] [place] [address] Dr. Alexsander Dickinson Basophils/100 WBC (Bld) 0.6 % Normal 0.2-2.0 [facility] Comment on above: Performed By: #### H BSANS #### [facility] [address] [place] [address] Dr. Alexsander Dickinson EO # 0.1 103/ul Normal 0.0-0.7 [facility] Comment on above: Performed By: #### H BSANS #### [facility] [address] [place] [address] Dr. Alexsander Dickinson Eosinophils/100 WBC (Bld) 0.9 % Normal 0.9-7.0 [facility] Comment on above: Performed By: #### H BSANS #### [facility] [address] [place] [address] Dr. Alexsander Dickinson Erythrocyte distribution width (RBC) [Ratio] 12.9 % Normal 11.0-15.0 [facility] Comment on above: Performed By: #### H BSANS #### [facility] [address] [place] [address] Dr. Alexsander Dickinson Hematocrit (Bld) [Volume fraction] 39.0 % Normal 36.0-48.0 [facility] Comment on above: Performed By: #### H BSANS #### [facility] [address] [place] [address] Dr. Alexsander Dickinson Hemoglobin (Bld) [Mass/Vol] 12.9 g/dL Normal 12.0-16.0 [facility] Comment on above: Performed By: #### H BSANS #### [facility] [address] [place] [address] Dr. Alexsander Dickinson IG # 0.04 10e3/ul Critically high 0.00-0.03 [facility] Comment on above: Performed By: #### H BSANS #### [facility] [address] [place] [address] Dr. Alexsander Dickinson IG % 0.4 % Normal 0.0-0.5 [facility] Comment on above: Performed By: #### H BSANS #### [facility] [address] [place] [address] Dr. Alexsander Dickinson LYMPH # 2.4 103/ul Normal 1.2-3.8 [facility] Comment on above: Performed By: #### H BSANS #### [facility] [address] [place] [address] Dr. Alexsander Dickinson Lymphocytes/100 WBC (Bld) 26.3 % Normal 20.5-60.0 [facility] Comment on above: Performed By: #### H BSANS #### [facility] [address] [place] [address] Dr. Alexsander Dickinson MANUAL DIFF REQ NO Normal [facility] Comment on above: Performed By: #### H BSANS #### [facility] [address] [place] [address] Dr. Alexsander Dickinson MCH (RBC) [Entitic mass] 28.4 pg Normal 26.7-34.0 [facility] Comment on above: Performed By: #### H BSANS #### [facility] [address] [place] [address] Dr. Alexsander Dickinson MCHC (RBC) [Mass/Vol] 33.1 g/dL Normal 29.9-35.2 [facility] Comment on above: Performed By: #### H BSANS #### [facility] [address] [place] [address] Dr. Alexsander Dickinson MCV (RBC) [Entitic vol] 85.7 fL Normal 81.0-99.0 [facility] Comment on above: Performed By: #### H BSANS #### [facility] [address] [place] [address] Dr. Alexsander Dickinson MONO # 0.6 103/ul Normal 0.3-0.8 [facility] Comment on above: Performed By: #### H BSANS #### [facility] [address] [place] [address] Dr. Alexsander Dickinson Monocytes/100 WBC (Bld) 6.8 % Normal 1.7-12.0 [facility] Comment on above: Performed By: #### H BSANS #### [facility] [address] [place] [address] Dr. Alexsander Dickinson NEUT # 5.8 103/ul Normal 1.4-6.5 [facility] Comment on above: Performed By: #### H BSANS #### [facility] [address] [place] [address] Dr. Alexsander Dickinson Neutrophils/100 WBC (Bld) 65.0 % Normal 43.0-75.0 [facility] Comment on above: Performed By: #### H BSANS #### [facility] [address] [place] [address] Dr. Alexsander Dickinson Platelet mean volume (Bld) [Entitic vol] 9.9 fL Normal 9.5-13.5 [facility] Comment on above: Performed By: #### H BSANS #### [facility] [address] [address] [address] Alexsander Dickinson PLT 275 103/ul Normal 150-450 [facility] Comment on above: Performed By: #### H BSANS #### [facility] [address] [place] [address] Dr. Alexsander Dickinson RBC 4.55 106/ul Normal 4.20-5.40 [facility] Comment on above: Performed By: #### H BSANS #### [facility] [address] [place] [address] Dr. Alexsander Dickinson WBC 8.9 103/ul Normal 4.0-11.0 [facility] Comment on above: Performed By: #### H BSANS #### [facility] [address] [place] [address] Dr. Alexsander Dickinson CULTURE URINEon 08-16-2022 CULTURE URINE Culture Observations: MODERATE GROWTH OF MIXED GENITAL JOHN. NO POTENTIAL PATHOGENS SEEN. Normal [facility] Comment on above: Performed By: #### A FPMAT #### [facility] [address] [place] [address] Dr. Alexsander Dickinson GLYCOHEMOGLOBIN A1Con 2021 ADA RECOMMENDATION SEE BELOW Normal [facility] Comment on above: Result Comment: ADA RECOMMENDED LIMIT 4.0 - 6.0 ADA THERAPEUTIC TARGET < 7.0 ACTION SUGGESTED > 7.0 Performed By: #### A 1C #### [facility] [address] [place] [address] Dr. Alexsander Dickinson Glucose [Mass/Vol] 111 mg/dL Normal [facility] Comment on above: Performed By: #### A 1C #### [facility] [address] [place] [address] Dr. Alexsander Dickinson HbA1c (Bld) [Mass fraction] 5.5 % Normal 4.5-6.2 [facility] Comment on above: Performed By: #### A 1C #### [facility] [address] [place] [address] Dr. Alexsander Dickinson LATRELL BOX TEST PT SEND OUTo n 08-16-2022 SENT TO REF LAB 08/16/2022 Normal [facility] Comment on above: Performed By: #### N BOX #### [facility] [address] [place] [address] Dr. Alexsander Dickinson TYPE AND SCREENon 08-16-2022 TYPE AND SCREEN Negative Normal [facility] Comment on above: Performed By: #### A FPMAT #### [facility] [address] [place] [address] Dr. Alexsander Dickinson US PREG TVon 07-21-2022 [...] by: DEE GALLEGOS Date: 2022-07-20 22:25 Normal [facility] US PREG TVon 07-13-2022 US PREG TV EXAMINATION: US PREG TV HISTORY: Missed period COMPARISON: 03/09/2022 FINDINGS: Fonseca intrauterine gestation Gestational sac: 1.7 cm, 6 weeks 2 days Yolk sac: 1.7 mm [place]-rump length: 5.8 mm, 6 weeks 3 days Heart rate: 125 bpm Uterus is normal in appearance, anteverted, retroflexed The ovaries are normal in appearance. Cervix: Closed, 3.9 cm small amount of fluid in the endocervical canal IMPRESSION: Viable fonseca intrauterine gestation measuring 6 weeks 3 days Electronically authenticated by: SEBASTIAN HENRY Date: 2022-07-13 17:05 Normal [facility] Coding Summaryon 03-17-2022 Coding Summary HTMLBase 64 CichyezwZIi8kXc+PGhl YWQ+IZ6MPDWbF37odJPc wV2JX2tUPV1JJHOTPCRY GT7TYC9ljIB6FBzgG1Hh biAv GxqmbILiYH91AUg6ATG0 lApjJMuqcN1jzZOpO8x9 GrGbBI84sD13HEikCODk KwC3UyHmdknwtPCq O5kiFyXchLWsVza+PHRh YmxlIHdpZHRoPScxMDAl IhIgeNqjMR1iSm2rPUIq LWNvbGxhcHNlOiBj h9glBSXjQEiwIY2loYpu Y5GebCI2KRFtx2p7Vx96 dHI+HUWmXGN2tCgeDYav h915NrBta8inGRG6 oNWiLPuoNLN8C57xs3I7 HBMyKWKoJSG1aQV4aG2r eQuwhnwlL8BzbCClGjI1 WOJ2nMHicU7cgYeg myjfiO0mWdq+U41GTV3O IUJTWY6HBhk4K3IkKtxx dHI+FZ35CGCkCJ72eEHk cBSfq1gcbIj7ReGw OTSwECB5dXniQSnac4Wy ANMgZ94aeZGyf3U6OMVa bBuchTWqJbDqvCJ0qU4q BRtvdedzn0biovls Ngolx4tnak30nK26V73w KUtwDABpLOZ2KBCgNWOt hXsczz3qwI9cJb6+IDxj k2bmh8fyaXp5NbVi DWRerrMosRmlRQB4w8Ys Md75B0ZeyQsgx8NaBzm0 gq50pXYbs6L8oBI2CQmp CCSfaR8hTYhxCzD6 KARbJiPgrV26rOMrOIro Zc2wiKpnrKpwWH7mHSOg pjftUCDprK1wMGUrzUBy cGblEB5tJRBnsuyz r135HtNqKMC3DBUrcSTx F6SqwM0nLdZcMZJyKAZy M3FoeOSfWVzuB248MCvs LkC1HJJesmZxC2Vm BDHnwCknPuA9n6V3Ft3N n1JamqdaQSD6BWihIRG6 DpVrHgNvJmS1D3MoYkb9 ZKLvgZrlPI3kA7Hi DUHejmbmgnibmPV3NAVm GUEpwR85uCCqJEpeRw4r w0W3i233IMCeDVFabL90 Lt0ybIanBQTfxWQT lD8vcllwc3dgwcqzIdIx LOXxLRs5EEl0AVWbiUzw OiNzUYF3LbX0IDN8iQKb vC0xuNafscmtlZ3h Oyc+P58ndV4oKYB1LTR2 abshLLOqsgEsVN87EQ73 D4ZqEizxhKTgbQR+PGRp vjHgnQhbFM6wOcQa m3lfy2XvYBkzB6LtQXJp HKcrCgz8XDEsJTD5qRN8 wG3gENUjAFcuo6M9nMH6 D8ZgifVkxb1qt9aa QOFyQEjbE29gfHQfr3P8 BSMizQN3WOLwaXnxPvPw oP47Mzu+HMKkqAlqr7Tv Jhsxi1cxj2wnvAm3 IjMwJSIgdmFsaWduPSJ0 i8ZxZh96C65rXFkiVDKf YQVbGHVgTPYgeGgrbi3d zC6jIq7+PGNvbCB3 hNI8rZ1xQIZbWfT9LQet X065ZpFtqWNjNispo0va b5dbbDm3AfXvGHOlqlPc dIahLBZ2t4BcIt64 K15wEDwhIXXqZVVkRADj SRSxzJzimm3tkR5tNc9+ GO8ad7ryxw78jW97wOD+ EGMtQLX5xLlwAClr XNHweS0gGMssSrB4DHKm XbNcfL46eYUiMPnoDe5i gHlquAtiLC4vOMVgwtih q682YdXhk1vnOYIw eTWmKUczIYC7Z94qe9F6 RQBrBLQpJDH8wNJ3dR6t bGlnbjogbGVmdDsgdmVy nGkbCVtaSDocB564 IHRvcDsnPlBhdGllbnQg JfOpSEv0V5VxVkt8BDDr nHedMF8qxWAgWIkyVz7l pPdvlFqoAR6jZQVp mrdbb166SzTqm5hcDSIm yTEnTGanAJV9P28xz0T8 NEYtHQVcORH5bBM1sV8g bGlnbjogbGVmdDsg ttWohKqoJXmtOImuB719 IHRvcDsnPkJpcnRoIERh nCI6RV90RF50iBWwh5J5 eGC9A6NnWIUkzbgx hrnyxAI9AGLcVDXpfZ26 Hp5uzXsaTc4fPUHlHMW1 FNRwgGYeP3JfkJ9rLuTc EPFgXGCoR0JlzHAg ZSheL765EIvqOoF8RGTk zkYxL3IlNAWllXmwBjM6 v2I6Ba7TR0D4HC48EU24 fEIeu5S7cGZ0V5Nm TRGioekxgbicaFM8JIBw PAAhbH74Me2xtLqkSe8w KGFxZGN7XDGmfDUfY1Di rW5pAaDuSNTfOIQo F2BkgQNgZMqeE217TAjr NxZ2LFJaggPfD4MfTOBj sLerIfE8t3J2El3FDBx1 KI36KM94aEGrm4A9 iGS5S5InOUQvjlufmgbi mSJ7VHRxWLWnzF05Sp2l aMgiAb1bJSEkVNZ0EXAe qVKxW6EfoX3hMuTb MKDpAYTwV6MygHZvRTnb Y672IBzzTjD0GBUccnOj J5WyHJAviWpkVkB7t2R9 Zm9SZICtSA47IZT2 bLH1OS03IR14B0WbUuvs dGFibGU+PHRhYmxlIHdp ZHRoPScxMDAlJyBzdHls GY2hBi6jKXJhCDXl qGkvzCTcTjMco3tnLIDu KZysRP0ldJwiK2AqyPA4 LLQyc2y1Jd03M77nV4Gc dXA+ROGpnZB3pZB7 zP4xMpHlLiS3QJrzN081 TzGngORaQkwdc2mxa1kk cEm3PhG1PFYkyfSmdGnh COW4i3AiFr14I09v IHdpZHRoPSIxNSUiIHZh bCrnel0myX7rNh5+PGNv dRC3vCB4gV9jQwCdHwB7 HIvlK151CuXovVNn Rwrci2ozg3hhsMa3YhXp QNPyrpXkdQrkJNE3o9Rf Cm78T5XjjMjgn5QjPdh7 pz02dRYcg1N2oLQ7 P1BwWIWykmvanAApoPpw JP6nGBAoxhvzQNPgiA0u JYReF4a0TiGxQvF9PBba K0FwihO1DDVbtINe EKweTMU4W69hf8L1QLVg TAWhJYZ2xIE8jJ4fcDyx bjogbGVmdDsgdmVydGlj KRqlVJtxQ867NMLp dHxtDOVeiL3nREJlwBZq pIfyAV5cYBJtnifwQjEU TExJTlMsIEFMWVNTQSBS AMIRGFt2Y5JvTjz0 PZEbpEouSN5zeQGhHFoa Yf8llAxfzPpeTM2wDICv dphvRCLkiY8uSFShvIAs hMwcJC5sSJBkvnhb b958TpVeIAI6NMVvdOLd N2ZjlX4nIwKkUFWsXKUw A5UqeTBdFQesS672QIqe KbO6VWXmvmUkH5Yp WQUhyAdeOrD5y9L8Zc2p QN1jCa6kBNc5JA41JR08 mEDnk1G8rMC0D2WtBVUi uiwitnrdvAJ5PTTs UERazM34tFXzSOwfMp7i u6I4o613SZWuMREymN96 Xu2vfUdiJYAydOYYkL4a lgtju5whxhrjTkCq BPIxRCn2UBb7ZVNsaEpc IrPeTDG1LgZ7FHE2iHGb mY0cuLowjvdpsH3qVyt+ TpiuWYIxmwX9N1Ej Xte6JXDvbHlpSK5smEHi DYeiQm2ogHxcyZxcGD2n UQXupuneBHImkC1lMGEp hXBkiFjpGC1fLWOx rwysj283GuRqHZG0YQUy jMNeA1SdoJ2jDfJtWIBi ZCSwQ3ZunYGrICykZ419 PAqvBxN1EXXiknVy S2QmGPKpkRclPpS2m8P3 Tl0LJV7OXAP0A1UbGik2 XUZaqAlcWD9sgIBmZLmc Vz5qrWrwaDpfQO8j MWAunoabQPYbbJ1fZOBt oUJyjWrhOP2gHTZniffw w031IvQjUTY3RNUpxPBd T7NpuE2jCiPuRKDy SCKxL0YznLNyAVihE978 KBanIpE9MNQronAjD4Ph LEArjGjfQxU9o8V2Cl7V UDwvdGQ+PL26er12 Z3VhWngaRgq2FEWfQBE8 xTG6iF7dGZEnJKxxg7Q9 fZI6X8PnflVnha1zq4kp HRMhTAurQ67ptJSh z3J5WNNjzQN7FRJmcLro UyQbvO32Dxm+PGNvbGdy c5HuDdmth2yjw0wpiMn6 IjMwJSIgdmFsaWdu MXD9k2TsLv38A87kPYuz ZHRoPSIzMCUiIHZhbGln mc0ccE7tRc9+PGNvbCB3 vFH1zA8bMfPiVnW3 PNuwO484RmNniIJgMjer g1vpp8wxiBs4VbKzGALv alXzkDwhAMV4x6FmPj08 B2PmrIfnv7WuQlg9 zl17nATmb3Z9zAD8H7Nm IAMkhntjeKZhlVyaGW3t MHIixzwlVXZtoO7mFFZk Q6j7YcNwJsR5MZqv T5GbqxC1CDDziUJpQBMs tWDQnA6wngklv5icjgpw GrBlEAKrBIt7GBu3GQNv dJoqVuDcMIJ8ScV8 KNI1zZKlrW3yiAxgjhgt lT8tBke+VZu4a3uueHGm UE2hyGL5LH64YF59nXUp e1K5eWV7G7OsNJVb qypxsetdxWJ4CMToAGXd jS04Zx0loPrdRn4iOBDw AAZ3EGRmhGLzB9GcvY2u ZxDqVYTiZCAeK6Sm gUKgZRrvO216RKfgFmX0 WUStsbDiG4SuODKoiAee FgQ5j7D9Pi6CJD34TQ19 GP43vCXhe1U9vSE9 S3GfPLLcgkvuyzsyySX7 MAVtORBvxK26Fz9vaDlb Yp8pTABhPLL9LPMyrGSj J1HffH5bEfHxARUm CXVkW4LysUYbXXbrE456 DLyuSoZ6UNSjnnHvI8Mo QVXzhWevJzK9e1F3Ae3M Vs74TN67FV95oOMb z1R2hZP7I2RxQEVhxmte lxxesVT6PKVxWDXtnB52 Ow2kuThpRr7wPHOiPQP7 FBYcoCUpB0ZfmN1r GjYrVANbBMUkR8QwtBUw KPsbO822NUgwXzK4PEZj fdAlV7UgLVZctPtrWvN8 b7J3Fe5GSEevhyd6 J0QzOhcfyVD+FT83SEDq SP35gAHsqZAmv0ckuAk9 XjYlMOTwULM1zOufLGrl p6LpJBLaQ78ytWVs c2U (more content not included)... [facility] Coding Summary HTMLBase 64 ItpoxifpJXj7dQb+PGhl YWQ+NA3PZYTxH28jfEUc yT3QO0uPZW9BPJMSMVBC TW4NOB9jrIF7AWivH8Sq biAv AucmrOKoXR26DMk0KDH6 rSnfWViliI5vuLOiF3y4 QtZuQB59pL74YEniBLCi FwK9UeLuioonyIPs X3dxSwYfaHByCwf+PHRh YmxlIHdpZHRoPScxMDAl McKjuCfiKX8dOg1oQSVr LWNvbGxhcHNlOiBj j7ijQKBaDQnwME7miBoa N9SclFC2XJEzx5q4Rh47 dHI+PPYjWIS1xXiqNVqu c567CwDie4jaIAU2 tORoMIhcOWF6H37lp7V4 IUNqZSRvPSG9zWU3cX6d mPuobkajN2CktAOpWhP8 BHE9iIGgkT0oyUhi efawuX0sHdq+D82QXR1M VEJPCR1QSaq3H7VmUlwr dHI+DO58EPAfBK88hETw sVZhd6stxFz6UnMd AUKwOAQ1fRcbLEcxq7Hk MLJiU54wsSSxt3T2THCo uDyavSFuBnFpnQM1xF5d DLlijgnub2wzbqfa Omyfk8zdvn84qP59Q33g LFhbJRMdEXG7YPAjKWQk eYomkv9rdG3yKs5+IDxj q2sel4nsyIk6HjTn SLBepiRcaSppMYC2h0Fm Eh27N3OnoVmbj1XhLbl3 df63tZUuz4P4qZE5ENxv BLZnyF3aMGqgEgE3 JNUqNsFwrV89kFZzYNht Pm9rcWrcfLvlNT3xDBLg jomsSCUuzP2qROKwcJFt hCgrLT1hIIDsqihj b561CrAcQKI6RONcjQZi W1SyoF6mYiTjNMFbAJNx M3EgvXHeEMmuI463IDpv PyW0THMuwpHaK3Ud SWIbbLfuHzR5b8Z2Ou7T i3ZjimsmLSY3JSbeFPM8 OtOkEkZzEyE4M4LpEqh4 VKKryLlvOO5oC6Ga ASUoidrkvomqzAZ4BPQh FYImwO35eELpNJpkOr4t f1F2r641YQPiURMssR60 Dy7enZdySXJbmRFX xT1yzdkms1znivufAbTt JQLqOAa2LTu5LAQcfHup InGrBHD6NgL5TKG7oZSz iC5bsUhpipbthA1c Oyc+Z03dnK1dVLB4HCF2 equbIWKybpCqBK43PN74 S5CkReogbPVatXA+PGRp thDwtTxwIC8hZwUy f2xrl1JqVQheF8EnLLIe WNtaVrz8WEDqRUD2tLF9 wF8dCZPlEGomf5L6xTI6 L9FbmvOqsv4st5dq COFmKPpmO27tdOOfg8Y5 RNVnsNT6YLCkoClrLtCi bD31Dtx+JEYcbYblw8Ha Cgnwx6xie5aksNl0 IjMwJSIgdmFsaWduPSJ0 c8RzYe73A00yTGdgVALz ZAVoTOFiJGFpyIdaym9y tC6kTx3+PGNvbCB3 eBO9oY7vKQBnFsR4MLrc J210DlSjxAKrPpjwq1ev y8rhdMe6GlTgFEWtaiGi iRmjURX0u5GgMw56 G19zRPtyAUPhVASuRMUp HFJryJfnjn7qyN6eYl5+ XE4pu5fnjl98fO14yYU+ ZOVjABX8tGgsCKzf FXJxkY8rPHshCxV8YZJz GeJhnQ16fCPxKZyuDk5g mBqfeOveRA1mVIXyosgp x295VmAac7otRMEj zTNeWPffNUZ9F98fj6M3 USUlXDIyMJQ9vWF4cQ0y bGlnbjogbGVmdDsgdmVy rSnmLBkwAVuxQ117 IHRvcDsnPlBhdGllbnQg QpNhTRh6Q4JvPbk0YBUk sFvzRI9ytQNcZWomBt1k mOmxiExfDO1sAFFf jvxxt693PlFdl2ktUZLo sXTcRPpsZFN7C79vp3J2 BZFpQHVjTCH1sYY3rI3e bGlnbjogbGVmdDsg daSztAydFYueOLccC165 IHRvcDsnPkJpcnRoIERh hYX3QT85IT83vHUij0G8 iOU0Z9JbOAHipapy llqijQV1YESyKPXggA31 Fb0zaKiqDq1rKCEpPCK0 TVWzlSQnL0TcbT3eLqHf YUNuCQNmE6ExjXLk RRfmY476KEfzLcJ8XVDd npJzQ6PbCBVtkRrnLlU1 f7H6Nq9YF7N0YW79LR51 uTLws5Y7aHX4D5Km NOEnuaxcteclvEW9WMBl PHVwiS47Ic7xpRmuNd4u KSNsOGN0WYZhfNTcB5Uv oR0aBeQfCZKmPRYq X1SnmOVuOXbyR933SNft UaC1RCWyowPeC8PiTDTc wVjmJtX6c3U2Eb5USMy0 VK06LI49kHYiv5Q2 qYV9X9KwDGCcmevsljhi wKK2AGKyFQVbwL52On7i bBqhRf7oFSRzEMH9XSWq aBGnP0XccC3zMrSq GBMfQNFaQ2YvjMHnLCke V515YTwqJmF7FIUjdkHo L2MgSPVgyPhhQwU9h1Q2 Is5XMVFbYR89LMS5 yNZ6LJ96QG70K5CsMnkv dGFibGU+PHRhYmxlIHdp ZHRoPScxMDAlJyBzdHls AD1tTd5oAOWiQSKt vKbtgKJdFuEhx2ltXIVp ZBcoYF6kyOngV3OzoSR6 UKDpx7u8Uh23I78oR5Jn dXA+QXRqrVM4lWS4 yI0gInSmEkD1FEqkI546 JvIwhFWbVshgv4tpr3cl iFc4RyF6UIWhowYalBwh AAA2x9RkUi79B91v IHdpZHRoPSIxNSUiIHZh jTklqf5azF4mKg1+PGNv iBO0kVA0gR6mDwOaIlT9 VWzdQ375EjJctTQa Zszeq7wek7tzgTp3ApKp YAQsbcJuaVbrWQR9o2Im Ok04L4IjzIczc3DyLce0 ub62qKXnk8H8nWU2 I7MaBGGjgfucpWYwpFuj YV2kRXAsigdfXFNgtM3f KYEfZ5k1RuTuIjC6ZXuq G7UenyN8RLBfzRNd WJbhMGO7S60dh8R5FRQd EORxQOQ4uYP3wL0zoZlx bjogbGVmdDsgdmVydGlj ZCxrHKnaK968HESw lRrvZQPbnI8zFPYczDRb eVuzPO7wWEDbovwzVyIR TExJTlMsIEFMWVNTQSBS MHRGDSm4O4JfKqk7 CAGegTnwRY8qfWChYVej Er9tdStwyMiuNM2vYXRw thfqUOOqsV7iBWRuvNRp qHrgPL5pYFRcjdjz s907PzQtYPL8VFPyiZQc E9FshG2vDrKgYAJnYPWb R7ChcLWqCEduD539MFvg VaA7HQFejbGzV7Jy ZRUtqZglUdP6s4F6Ya4j QU1vWj1vWSe5OI50SG26 xZKzd5F1nRP2A3SsORSa vpqsotgcuCO6LNAb MCAavN04vASwMMtmJr7r o8P7m689IYRbROTyjH21 Zc9hnKrkMWPdeVVQmM9y lomnn1llmucvZyFl TYTlXIx1NQt7PUCupEif FaEcOKL1PrL4JTV2jMCk iT9neJdibfuefQ9vZvp+ AehhLRUznsM1B7Nb Xbe7FHXmpJryQW9spWVn UGjzQm7zvNnaxPlcBS1t IVPzwzzsREJodA3rKGOw fICkiUyyBE6zJIFy gexdx160EvIqDFL3QKBf gZLpN1EcjP4eNiAvTNIn DKWrM3SrrKLmYBplM846 NYmoDcO8EAZfgfLb C9WaVFAqcNssXvU6z3O7 Ii9IHP1DXRH2Z5CwJat4 YAYubVovVP5ghCEtSNlb By9cqDqpaYkbZA1f ORXycuetSDEgcK6zDUVn tWUugJigVF2eNQNjjurz y008PfIqCXC5KNKgtLEd S8KdxO5vTjDaUUAb LUSkS8DtmHQiDHlxO514 LCofBaQ6DCCsurUoJ8Ca OHImjHzyLsE0l3Q0Ef3C bNOjB3OhK3k3J9Kb PjwvdHI+QD82NZFeIE88 cUYtfBKmg3tkxUn7WeBa LATsROO0uEseAAwhu6Bj WGJzW74stQOsz9C5 IGNvbGxhcHNlOyBlbXB0 jC0fRTkzczeud6qnuumt Cjxwo8flfq03fO56Q31r IHdpZHRoPSIzMCUi FYBhnBhmhs4wnM6xKb0+ JLXnpBA5aOK8cM6nEsWt JxS6WPkcO822ElLwwQNb Ivltl8zgj5htgXu7 IjIwJSIgdmFsaWduPSJ0 v5XtOq08X80rRZtxADTk FVMsKCSvIHCrvKpbxy8i yC3fLi8+AB1od1wv zx46uE92cWD+PHRkIHN0 wRveBLjpRISatO7yUAtt LwH4IAKkXbGofY54mSXj RRfiIx1urWsedRar SR0fQZDhlbnvc242XpHp y0jrFNDvvXNvQNaqPFO0 J21jk8F1XYGqCHJjXSP9 fJD7dA4xqZuaptog bGVmdDsgdmVydGljYWwt JLkeU401JOEgmUecEsZo vPLoL0wtfbIDBC2gQxaf dGQ+FDVnUHX3tIvl CZlgJUAygP0hXUGfX1w3 GfEkBmQ1PRamS8ImnmO2 RUHpxLAfGTPwbOTWrR5c yshqg9cpdiexMnHu FGEbOZn7XBu8CTTdwVrj ZsOhFRM8ChD7JHN8tDEn lI2uhXashmnhvY6hEqc+ RklOOjwvdGQ+PHRk DGO3fAdbUYldHUTjdJ1v ZTToW6f8SbIzEkV9TFpp H3KzcvI3GBLngYDhOZZw eEPGbP1avcqyv5yw vuoiKlBrHLGbAOv3BUo5 ONBdbXciIvHsUOO4IaB2 GVN8zFHrtF8ozItjlilo pA8hKgi+TVJOOjwv dGQ+ZYOoLVT1pVgqSQfy ZAWskV2jLSGwR7f8HoPy FnK9TMhlJ0SnzpO8IMAr yKNfITMopGKZnT2t zmumr0cxwwvcKpOvOROe ABt9DNq1TAJrxEyeXeYd UNZ6RtF2PZH4qOWfvK4u eBqflvzxyN6xXkm+ MXR8UJZ5NC07KQ12G5Kz PjwvdGFibGU+PHRhYmxl IHdpZHRoPScxMDAlJyBz gMkwPD4iYr8fOPZw LWN (more content not included)... Normal [facility] C Urineon 03-11-2022 C Urine Urine Culture ordered as a result of parameters set on specific urine dip and urine microsopic results. >3 Organisms Consistent with Contamination Recollection suggested. Normal [facility] Comment on above: Performed By: #### 1 2367318, 36940190, 8669266, 0745087409, 94516581, 7113786, 7882312832, 2587345884, 2301887513, 1668238 #### [facility] (DEFAULT) [address] [place] [address] 48926 .Auto Diff 03-09-2022 Auto Cobb % 8 % Normal 11-09 [facility] Comment on above: Performed By: #### 1 3735353, 20104287, 8106759, 3772086437, 24574961, 6529703, 2168222925, 9700701258, 0283478169, 4151097 #### [facility] (DEFAULT) [address] [place] [address] 48250 Baso Abs# 0.0 x10 Normal 0.0-0.2 [facility] Comment on above: Performed By: #### 1 1636632, 33300199, 3780862, 4700703074, 91101513, 6553115, 3039710270, 1309733358, 7912999562, 0640513 #### [facility] (DEFAULT) [address] [place] [address] 70224 Basophils/100 WBC (Bld) 0.3 % Normal 0.2-2.0 [facility] Comment on above: Performed By: #### 1 6632273, 52320261, 4069516, 1532532791, 95504628, 8555695, 4657706297, 7090975981, 5132912439, 8931953 #### [facility] (DEFAULT) [address] [place] [address] 56314 Eos Abs# 0.1 x10 Normal 0.0-0.4 [facility] Comment on above: Performed By: #### 1 9926543, 43319932, 0543715, 5001605337, 35035194, 4978841, 6643726299, 4424439928, 1697707184, 3521697 #### [facility] (DEFAULT) [address] [place] [address] 62237 Eosinophils/100 WBC (Bld) 1.0 % Normal 0.9-4.0 [facility] Comment on above: Performed By: #### 1 3586416, 34676364, 1161863, 3813056065, 12945187, 8600169, 7353058258, 4453995904, 6264813691, 9820359 #### [facility] (DEFAULT) [address] [place] [address] 58944 Lymph Abs# 2.0 x10 Normal 1.3-2.9 [facility] Comment on above: Performed By: #### 1 8867650, 22195298, 9672548, 9312788415, 48747462, 0929095, 7791358754, 6928086691, 5377763644, 2180203 #### [facility] (DEFAULT) [address] [place] [address] 29526 Lymphocytes/100 WBC (Bld) 35 % Normal 14-48 [facility] Comment on above: Performed By: #### 1 9525755, 25964521, 7073439, 3731796886, 73061248, 5184802, 5428287068, 4031025067, 6836829583, 8124185 #### [facility] (DEFAULT) [address] [place] [address] Cobb Abs# 0.5 x10 Normal 0.0-0.8 [facility] Comment on above: Performed By: #### 1 2503819, 38314981, 3907608, 4410198845, 45771862, 9524125, 8452344346, 2392389110, 9181578538, 4092050 #### [facility] (DEFAULT) [address] [place] [address] Neut Abs# 3.2 x10 Normal 1.5-9.2 [facility] Comment on above: Performed By: #### 1 6336989, 31527868, 3916506, 0815341055, 75291389, 5538138, 9262249056, 6305328152, 0516738494, 3023672 #### [facility] (DEFAULT) [address] [place] [address] Neutrophils/100 WBC (Bld) 55 % Normal 44-88 [facility] Comment on above: Performed By: #### 1 6040957, 63152452, 2663471, 1579222435, 27619277, 5787890, 6816359395, 7940504887, 3591298268, 1458420 #### [facility] (DEFAULT) [address] [place] [address] ABORhon 03-09-2022 ABO and Rh group Nom (Bld) Hx Check: Not Found Anti-A: 4+ Anti-B: 0 Anti-D: 4+ DCon: 0 A1: mf+ B: 4+ ABORh Interp: A POS Invalid Interpretation Code [facility] Comment on above: Performed By: #### 1 9624084, 33038206, 0921492, 5399740713, 26697448, 0981102, 6113553700, 3842414308, 3484782514, 1329651 #### [facility] (DEFAULT) [address] [place] [address] ABORh Retypeon 03-09-2022 ABO and Rh group Nom (Bld) Ordered by Discern. Anti-A: 4+ Anti-B: 0 Anti-D: 4+ DCon: 0 A1: mf+ B: 4+ ABORh Retype: A POS Invalid Interpretation Code [facility] Comment on above: Performed By: #### 1 7574916, 83853953, 7156735, 0329738527, 87559147, 0417237, 1913456088, 1471463947, 1853959281, 5642282 ####[facility] (DEFAULT)[address] [place] [address] 29994 CBC w/ Auto Diffon Erythrocyte distribution width (RBC) [Ratio] 13.3 % Normal 11.5-15.0 [facility] Comment on above: Performed By: #### 1 7716548, 44024145, 4537063, 7686785289, 87864484, 2818236, 9498775889, 1961861360, 9366750324, 3973828 #### [facility] (DEFAULT) [address] [place] [address] 19699 Hematocrit (Bld) [Volume fraction] 43.5 % High 33.7-40.4 [facility] Comment on above: Performed By: #### 1 0813329, 98170479, 6455951, 5986294378, 17841908, 7184902, 4568570127, 0351735743, 3064613428, 7421489 #### [facility] (DEFAULT) [address] [place] [address] 27453 Hemoglobin (Bld) [Mass/Vol] 14.1 g/dL Normal 11.3-15.9 [facility] Comment on above: Performed By: #### 1 6546432, 92366945, 5661308, 5562250477, 99819872, 0267180, 1219021228, 4527082827, 3429719368, 8221520 #### [facility] (DEFAULT) [address] [place] [address] 11167 Instr WBC 5.7 x10 Invalid Interpretation Code [facility] Comment on above: Performed By: #### 1 6931959, 87378732, 5943841, 1650826294, 77911142, 7639978, 8591391854, 4847644662, 9049390216, 2242455 #### [facility] (DEFAULT) [address] [place] [address] 41151 Man Diff? Auto Normal [facility] Comment on above: Performed By: #### 1 6797892, 54891529, 9340223, 2546228710, 57643571, 5428835, 0754868846, 7038586039, 6684384163, 5987398 #### [facility] (DEFAULT) [address] [place] [address] 83121 MCH (RBC) [Entitic mass] 28 pg Normal 24-34 [facility] Comment on above: Performed By: #### 1 9206958, 63944648, 5595416, 6440988946, 76088453, 6393172, 2277267033, 5706946003, 8688554212, 9238142 #### [facility] (DEFAULT) [address] [place] [address] 16086 MCHC (RBC) [Mass/Vol] 32 g/dL Normal 26-37 [facility] Comment on above: Performed By: #### 1 5041750, 76891556, 8306982, 9972127811, 29141659, 8422080, 1918797650, 1247922420, 0434233698, 6627820 #### [facility] (DEFAULT) [address] [place] [address] 04018 MCV (RBC) [Entitic vol] 86 fL Normal 81-100 [facility] Comment on above: Performed By: #### 1 5417959, 30822347, 9966649, 7858577697, 39601912, 8571910, 6739358304, 5651249469, 6143825600, 0111492 #### [facility] (DEFAULT) [address] [place] [address] 06926 Platelet 324 x10 Normal 138-427 [facility] Comment on above: Performed By: #### 1 4704662, 79721472, 2471143, 9015858670, 40709458, 8098151, 6377327862, 3475440274, 4999275696, 6284060 #### [facility] (DEFAULT) [address] [place] [address] Platelet mean volume (Bld) [Entitic vol] 9.8 fL Normal 6.3-10.2 [facility] Comment on above: Performed By: #### 1 4849867, 05231054, 1243085, 6941730686, 94095527, 9461346, 7510816902, 8907453645, 0215728198, 7910836 #### [facility] (DEFAULT) [address] [place] [address] RBC 5.07 x10 Normal 3.70-5.30 [facility] Comment on above: Performed By: #### 1 2392187, 87564429, 5512115, 7191355829, 83741661, 3253660, 9169457946, 7558236368, 5429670112, 2966605 #### [facility] (DEFAULT) [address] [place] [address] 43846 WBC 5.7 x10 Normal 3.5-10.5 [facility] Comment on above: Performed By: #### 1 8663751, 32176224, 5762075, 1231585781, 58274281, 6377759, 5928765790, 0123038252, 0799116950, 8001881 #### [facility] (DEFAULT) [address] [place] [address] 27917 [facility] Standardon 03-09-2022 eGFR Non AA >60 Invalid Interpretation Code [facility] Comment on above: Performed By: #### 1 8869306, 40562863, 4462871, 6700352155, 52010580, 6906079, 2152505666, 6640685860, 7437219032, 7203338 #### [facility] (DEFAULT) [address] [place] [address] 96986 eGFR AA >60 Invalid Interpretation Code [facility] Comment on above: Result Comment: [employer] Boat [employer] susie Kidney disease could be indicated at eGFRs of less than 60 ml/min/1.73m2. Kidney Failure is indicated at less than 15 ml/min/1.73m2 Performed By: #### 1 1978196, 74496820, 9662008, 6728444737, 02171890, 7807810, 0657593214, 0559462776, 1699355430, 6338773 #### [facility] (DEFAULT) [address] [place] [address] Albumin [Mass/Vol] 4.5 g/dL Normal 3.5-5.0 [facility] Comment on above: Performed By: #### 1 4767264, 28602685, 7761976, 4839209958, 47940841, 5905875, 3057804330, 9162024174, 6541168008, 0798549 #### [facility] (DEFAULT) [address] [place] [address] 83125 Albumin/Globulin [Mass ratio] 1.2 {ratio} Low 1.4-2.6 [facility] Comment on above: Performed By: #### 1 7137350, 65218706, 6202468, 7207097469, 03977611, 8540683, 2533037865, 5691258929, 0908695842, 8218403 #### [facility] (DEFAULT) [address] [place] [address] 60899 Alk Phos 52 IU/L Normal 32-91 [facility] Comment on above: Performed By: #### 1 1231737, 36857356, 4052958, 2218423512, 66369783, 0504343, 3335562596, 6175110684, 2958898024, 8858653 #### [facility] (DEFAULT) [address] [place] [address] 92349 ALT [Catalytic activity/Vol] 37.0 U/L Normal 14.0-54.0 [facility] Comment on above: Performed By: #### 1 5539198, 42010524, 0004611, 1181500716, 45694112, 2368903, 8207121360, 5458759350, 2711261307, 0871209 #### [facility] (DEFAULT) [address] [place] [address] 70970 Anion gap [Moles/Vol] 18.0 mmol/L Normal 5.0-19.0 [facility] Comment on above: Performed By: #### 1 6000328, 05202298, 7117236, 9505449602, 73391718, 4661665, 9454762489, 8487301812, 1274672561, 3077167 #### [facility] (DEFAULT) [address] [place] [address] 97048 AST [Catalytic activity/Vol] 29 U/L Normal 15-41 [facility] Comment on above: Performed By: #### 1 9748070, 65987233, 5837128, 4681546718, 01108472, 4048065, 0519328473, 3074541642, 7673187989, 6707948 #### [facility] (DEFAULT) [address] [place] [address] 88190 Bili Total 0.7 mg/dL Normal 0.3-1.2 [facility] Comment on above: Performed By: #### 1 6433017, 00610498, 4662405, 0020958977, 41950639, 4790636, 3012340476, 4449741145, 6740267865, 0412606 #### [facility] (DEFAULT) [address] [place] [address] 66865 Calcium [Mass/Vol] 9.4 mg/dL Normal 8.9-10.3 [facility] Comment on above: Performed By: #### 1 3321611, 85628152, 8166032, 0151753847, 69932552, 0806077, 8096094044, 1092451333, 2137114406, 9228806 #### [facility] (DEFAULT) [address] [place] [address] 30057 Chloride [Moles/Vol] 100 mmol/L Low 101-111 [facility] Comment on above: Performed By: #### 1 4806218, 55557422, 0156133, 5063526372, 44476267, 8275801, 7388855493, 8409220705, 5712264106, 3731312 #### [facility] (DEFAULT) [address] [place] [address] 81441 CO2 [Moles/Vol] 24 mmol/L Normal 21-32 [facility] Comment on above: Performed By: #### 1 8563598, 39130851, 8591130, 8750871060, 64167798, 5431833, 4564700965, 2390884116, 7983533380, 0691960 #### [facility] (DEFAULT) [address] [place] [address] 54817 Creatinine [Mass/Vol] 0.75 mg/dL Normal 0.60-1.30 [facility] Comment on above: Performed By: #### 1 0438899, 25774530, 5495277, 4500601370, 18571220, 8707621, 2109377463, 2687080139, 9119454089, 1874379 #### [facility] (DEFAULT) [address] [place] [address] 38342 Globulin (S) [Mass/Vol] 3.9 g/dL Normal 1.5-4.3 [facility] Comment on above: Performed By: #### 1 4540856, 76090280, 7726777, 7259119874, 80685783, 5042361, 6099182900, 9491027200, 5105110033, 9211072 #### [facility] (DEFAULT) [address] [place] [address] 17446 Glucose [Mass/Vol] 98.0 mg/dL Normal 74.0-118.0 [facility] Comment on above: Performed By: #### 1 1812192, 55128299, 1538929, 1081956235, 28781974, 9181534, 9793922722, 6664350902, 4206303852, 9527919 #### [facility] (DEFAULT) [address] [place] [address] 37144 Osmolality 274 mOsm/L Invalid Interpretation Code [facility] Comment on above: Performed By: #### 1 8325378, 59896272, 5997865, 9041742696, 65132817, 6313122, 9531586906, 1246006248, 5329434469, 2819760 #### [facility] (DEFAULT) [address] [place] [address] 09733 Potassium [Moles/Vol] 3.5 mmol/L Low 3.6-5.1 [facility] Comment on above: Performed By: #### 1 3084988, 16588073, 7510111, 7558345513, 82531900, 0997635, 6871614526, 1155291027, 9654633228, 4776860 #### [facility] (DEFAULT) [address] [place] [address] 01256 Protein [Mass/Vol] 8.4 g/dL High 6.5-8.1 [facility] Comment on above: Performed By: #### 1 2234514, 67513054, 7784536, 9308660457, 85357567, 9665655, 0154138488, 3460849622, 2979510612, 0345393 #### [facility] (DEFAULT) [address] [place] [address] 69848 Sodium [Moles/Vol] 138.0 mmol/L Normal 136.0-144.0 [facility] Comment on above: Performed By: #### 1 2744503, 02956189, 8567235, 4901488861, 97116346, 8130465, 8029094057, 5001732082, 4180973307, 5339865 #### [facility] (DEFAULT) [address] [place] [address] 55879 Urea nitrogen [Mass/Vol] 7 mg/dL Low 8-26 [facility] Comment on above: Performed By: #### 1 5634332, 98246588, 9106063, 0976053108, 23016126, 6645987, 4811846726, 7473019557, 1949206616, 6283184 #### [facility] (DEFAULT) [address] [place] [address] 05056 Urea nitrogen/Creatinine [Mass ratio] 9.0 mg/mg Normal 4.6-16.2 [facility] Comment on above: Performed By: #### 1 9021592, 80922036, 8655466, 0446669510, 03067286, 5166841, 2717917875, 2851298645, 4531612619, 6972209 #### [facility] (DEFAULT) [address] [place] [address] ED Clinical Summaryon 2021 ED Clinical Summary [facility] - Emergency Department [address] [place] [address] 9[address] ED Clinical Summary PERSON INFORMATION Name: DIANE JOYCE Age: 26 Years Sex: FEMALE : 1995 MRN: Acct#: Visit Reason: Vaginal bleeding - < 20 wks ; BLEEDING, Arrival: 03/09/2022 15:56:59 Discharge: 03/09/2022 18:28:00 LOS: 000 02:32 Check In: 03/09/2022 15:56:59 Checkout:03/09/2022 18:28:00 Address: [address] [place] [address] PCP: Provider, None PROVIDER INFORMATION Provider Role [...] or bladder. States that she follows with electrical prospecting observer in [place] Dr. Min, contacted his office and they [...] intact, SARINA: -Sclera conjunctiva: Unremarkable. NECK: -Supple (zypw-bm-ynnso): non-tender. CARD: -Rate and rhythm: Regular -Edema: [...] the patient recommended close follow-up with her electrical prospecting observer and outpatient beta hCG. In the meantime no strenuous ac (more content not included)... Normal [facility] ED Note - Physicianon 2021 [...] or bladder. States that she follows with electrical prospecting observer in [place] Dr. Min, contacted his office and they [...] intact, SARINA: -Sclera conjunctiva: Unremarkable. NECK: -Supple (urxw-cf-dhopl): non-tender. CARD: -Rate and rhythm: Regular -Edema: [...] the patient recommended close follow-up with her electrical prospecting observer and outpatient beta hCG. In the meantime no strenuous activity, sexual activity if having any worsening issues I recommended he return to the emergency department or going directly to electrical prospecting observer. Patient indicated she understood was in agreement. [...] AA >60 (more content not included)... Normal [facility] ED Note-Nursingon 03-09-2022 Beta HCG [...] patients second , 1 live . Normal [facility] ED Patient Summaryon 022 ED Patient Summary [facility] - Emergency Department [address] [place] [address] 16507 PATIENT DISCHARGE INSTRUCTIONS Patient Information Name: DIANE [...] (N93.9) Vaginal bleeding - < 20 wks ([id number]) Prescription Information: If you have been given a prescription for narcotics, seek immediate medical attention if you have any difficulty breathing or any sudden status changes such as confusion and sleepiness. If you or anyone you know is experiencing suicidal thoughts, mental health, alcohol and/or drug addiction problems; contact the [facility] 21/05 Crisis Hotline -text 4hope to 741741. [...] documents With: Address: When: Follow-up with your electrical prospecting observer for reevaluation next few days. Within 1 to 2 days Comments: Follow-up with electrical prospecting observer for reevaluation next few days for reevaluation and outpatient quantitative hCG. Return immediately for any worsening issues such as increasing abdominal pains, increasing vaginal bleeding, fevers, or any other problems. 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 It is important for you to follow up with a doctor, nurse practitioner, or physician?s assistant art director for ongoing care. If your symptoms become [...] so we can reach you if necessary. [facility] Emergency Department has provided you with a complete list of medications post discharge. Please inform your sanitary inspector/provider of your visit and for further instruction [...] The sec (more content not included)... Normal [facility] Extra Green 03-09-2022 Tube Collected Yes Invalid Interpretation Code [facility] Comment on above: Performed By: #### 1 6260230, 92589226, 2987108, 4729667293, 04830001, 3198297, [id number], [id number], [id number], [id number] #### [facility] (DEFAULT) [address] [place] [address] PT/PTTon 03-09-2022 INR Coag (PPP) [Relative time] 0.95 {INR} Normal 0.91-1.11 [facility] Comment on above: Performed By: #### 1 [id number], [id number], 7167589, [id number], 81666787, 9600882, [id number], [id number], [id number], 7908461 #### [facility] (DEFAULT) [address] [place] [address] PT 10.3 second(s) Normal 9.7-11.8 [facility] Comment on above: Performed By: #### 1 [id number], [id number], [id number], [id number], [id number], 8770080, [id number], [id number], [id number], [id number] #### [facility] (DEFAULT) [address] [place] [address] PTT 34 second(s) Normal 25-35 [facility] Comment on above: Performed By: #### 1 [id number], [id number], 7102176, [id number], [id number], 3765797, [id number], [id number], [id number], [id number] #### [facility] (DEFAULT) [address] [place] [address] 13382 RhIG.on 03-09-2022 RhIG. No. Vials RhI RhIG Candidate?: No Date to Give: 20220309 RhIG Status: RhIG Ready Normal [facility] Comment on above: Performed By: #### 1 [id number], [id number], 7425262, [id number], 96550126, 8433966, [id number], [id number], [id number], [id number] ####[facility] (DEFAULT)[address] [place] [address] UA Itbne6qx 03-09-2022 UA Amorph. 1+ [facility] Comment on above: Order Comment: Urina lysis Microscopic order added on by Discern Expert Rules system. Performed By: #### 5 [id number], [id number], [id number] ####[facility] (DEFAULT)[address] [place] [address] UA Bacteria 2+ [facility] Comment on above: Order Comment: Urina lysis Microscopic order added on by Discern Expert Rules system. Performed By: #### 5 [id number], [id number], [id number] ####[facility] (DEFAULT)[address] [place] [address] UA Mucous 3+ [facility] Comment on above: Order Comment: Urina lysis Microscopic order added on by Discern Expert Rules system. Performed By: #### 5 [id number], [id number], [id number] ####[facility] (DEFAULT)[address] [place] [address] UA RBC >100 [facility] Comment on above: Order Comment: Urina lysis Microscopic order added on by Discern Expert Rules system. Performed By: #### 5 [id number], [id number], [id number] ####[facility] (DEFAULT)[address] [place] [address] UA Squam Epi Many [facility] [facility] Comment on above: Order Comment: Urina lysis Microscopic order added on by Discern Expert Rules system. Result Comment: DMITRY VERGARA RN IN ER. RUN UNINALYSIS AND CULTURE ON THIS SPECIMEN. NO RECOLLECT. Performed By: #### 5 [id number], [id number], [id number] ####[facility] (DEFAULT)[address] [place] [address] UA WBC 3-5 [facility] Comment on above: Order Comment: Urina lysis Microscopic order added on by Discern Expert Rules system. Performed By: #### 5 [id number], [id number], [id number] ####[facility] (DEFAULT)[address] [place] [address] UA w Culture if Ind Standard on 03-09-2022 Breakpoint UA [facility] Comment on above: Performed By: #### 1 [id number], [id number], 4586047, [id number], 50837291, 2144956, 1142521935, 0594250590, 7583276024, 7139898 #### [facility] (DEFAULT) [address] [place] [address] Color (U) Yellow Normal [facility] Comment on above: Performed By: #### 1 [id number], 15800595, 2941849, [id number], 14930945, 2312115, 2061369504, 5560317277, [id number], 7270121 #### [facility] (DEFAULT) [address] [place] [address] Culture? Indicated Invalid Interpretation Code [facility] Comment on above: Result Comment: Resu lt created by rule GL_MAGR_ADD_UA_CULT Result created by rule GL_MAGR_ADD_UA_CULT Result created by rule GL_MAGR_ADD_UA_CULT1 Result created by rule GL_MAGR_ADD_UA_CULT Performed By: #### 1 [id number], 52339987, 4897791, 2333239708, 65074531, 6014127, 4006521643, 8821825805, 2715278713, 2192936 #### [facility] (DEFAULT) [address] [place], [place] [address] Glucose (U) [Mass/Vol] Negative [facility] Comment on above: Performed By: #### 1 [id number], 86379188, 5406513, 9922033373, 52538507, 9143186, 2160388133, 7598664264, 5682328426, 8969347 #### [facility] (DEFAULT) [address] [place] [address] Ketones Ql (U) 40 Normal [facility] Comment on above: Performed By: #### 1 8436092, 30681844, 1935411, 5019104845, 92646745, 8939112, 7606972164, 8036292667, 0389786730, 3884739 #### [facility] (DEFAULT) [address] [place] [address] Micro? Indicated Invalid Interpretation Code [facility] Comment on above: Result Comment: Resu lt created by rule GL_MAGR_ADD_UA_MICRO Performed By: #### 1 5742943, 31932122, 7485489, 3163631338, 91361311, 1473670, 3529164414, 3600232273, 2202305348, 8094852 #### [facility] (DEFAULT) [address] [place] [address] UA Bilirubin Negative Normal [facility] Comment on above: Performed By: #### 1 8294280, 76044712, 1597658, 2515268668, 89256696, 5274319, 0610822350, 4765232433, 5467148029, 5494271 #### [facility] (DEFAULT) [address] [place] [address] UA Blood LARGE Abnormal NEGATIVE [facility] Comment on above: Performed By: #### 1 6408684, 05249212, 5257053, 3962969751, 85363378, 5542865, 0356523801, 7044571472, 7647855095, 3834249 #### [facility] (DEFAULT) [address] [place] [address] UA Clarity SL CLOUDY Abnormal CLEAR [facility] Comment on above: Performed By: #### 1 8501598, 95618805, 9153711, 4758315523, 82047024, 7850019, 5591057935, 8713261101, 2468573449, 7134953 #### [facility] (DEFAULT) [address] [place] [address] UA Leuk Est TRACE Abnormal NEGATIVE [facility] Comment on above: Performed By: #### 1 4929814, 87558640, 5788322, 7896960494, 35885887, 9751210, 1267366023, 7683973904, 0968523272, 1479414 #### [facility] (DEFAULT) [address] [place] [address] UA Nitrite Negative Normal NEGATIVE [facility] Comment on above: Performed By: #### 1 4370008, 67332646, 2254918, 9540586949, 11870241, 0275920, 8631131208, 9361675380, 6525584435, 7137223 #### [facility] (DEFAULT) [address] [place] [address] UA pH 6.5 Normal 5-8 [facility] Comment on above: Performed By: #### 1 0404038, 33947353, 2846596, 1348052423, 35669764, 0307857, 0786857045, 4811663181, 9374807905, 7300454 #### [facility] (DEFAULT) [address] [place] [address] UA Protein Negative Normal NEGATIVE [facility] Comment on above: Performed By: #### 1 7093448, 40328473, 4087041, 2840194033, 48439909, 5021332, 5256740203, 4243948866, 3153042295, 9599822 #### [facility] (DEFAULT) [address] [place] [address] UA Spec Grav 1.015 Normal 1.001-1.035 [facility] Comment on above: Performed By: #### 1 7342554, 76787023, 8406047, 3931211639, 90206835, 1368734, 5123216696, 8796764381, 6351754155, 4775080 #### [facility] (DEFAULT) [address] [place] [address] UA Urobilinogen 0.2 mg/dL Normal 0.2-1.0 [facility] Comment on above: Performed By: #### 1 5097710, 79388164, 9394485, 8884201324, 75816854, 0280101, 0345822633, 9239332821, 2083686519, 5062065 #### [facility] (DEFAULT) [address] [place] [address] Urine Source Clean Catch [facility] Comment on above: Performed By: #### 1 9133699, 03093979, 9156116, 9503111033, 94067612, 9449307, 9882323757, 6717866434, 7600849247, 0679627 #### [facility] (DEFAULT) [address] [place] [address] US 1st Trimesteron 03-09-2022 US 1st Trimester [...] Sebastian Guzman 03/09/22 6:10 pm Technologist: PM [facility] US Transvaginalon 03-09-2022 US Transvaginal EXAM: US [...] Guzman 03/09/22 6:10 pm Technologist: PM Normal [facility] hCG Quantitativeon 2 hCG Quantitative 7.1 mIU/mL High 0.0-0.6 [facility] Comment on above: Result Comment: Post -Menopausal Reference Range is: 0.1-11.6 mIU/mL Performed By: #### 1 9504513, 46153970, 9209040, 6857204205, 87779668, 5363072, 3618255124, 7975079941, 2187626213, 9336274 #### [facility] (DEFAULT) [address] [place] [address] Vital Signs Date Time Vital Sign Value Performing Clinician Facility 12-13-2023 15:00-0500 Body mass index (BMI) [Ratio] 46.69 kg/m2 [facility] Nurse [facility] 12-13-2023 15:00-0500 Body weight 123.38 kg [facility] Nurse [facility] 12-13-2023 15:00-0500 Diastolic blood pressure 78 mm[Hg] [facility] Nurse [facility] 12-13-2023 15:00-0500 Systolic blood pressure 128 mm[Hg] [facility] 05-15-2023 18:30-0400 Body height 161.29 cm Linsey Witt Other [facility] Other 05-15-2023 18:30-0400 Body mass index (BMI) [Ratio] 43.41 kg/m2 Linsey Eduar Other [facility] Other 05-15-2023 18:30-0400 Body temperature 99.2 [degF] Linsey Eduar Other [facility] Other 05-15-2023 18:30-0400 Body weight 112.95 kg Linsey Eduar Other [facility] Other 05-15-2023 18:30-0400 Respiratory rate 18 /min Linsey Witt Other [facility] Other 05-15-2023 18:30-0400 SaO2% (BldA) [Mass fraction] 99 % Linsey Witt Other [facility] Other 05-09-2023 11:00-0400 Body height 161.29 cm Gissel Santana Other [facility] Other 05-09-2023 11:00-0400 Body mass index (BMI) [Ratio] 43.59 kg/m2 Gissel Santana Other [facility] Other 05-09-2023 11:00-0400 Body weight 113.4 kg Gissel Santana Other [facility] Other 05-09-2023 11:00-0400 Diastolic blood pressure 83 mm[Hg] Gissel Santana Other [facility] Other 05-09-2023 11:00-0400 Systolic blood pressure 119 mm[Hg] Gissel Santana Other [facility] Other 04-12-2023 09:00-0400 Body height 161.29 cm Gissel Santana Other [facility] Other 04-12-2023 09:00-0400 Body mass index (BMI) [Ratio] 43.59 kg/m2 Gissel Santana Other [facility] Other 04-12-2023 09:00-0400 Body weight 113.4 kg Gissel Santana Other [facility] Other 04-12-2023 09:00-0400 Diastolic blood pressure 88 mm[Hg] Gissel Santana Other [facility] Other 04-12-2023 09:00-0400 Systolic blood pressure 129 mm[Hg] Gissel Santana Other [facility] Other 10-11-2022 02:06-0500 Body weight 111.[address] ESTELLA MIN . [facility] Comment on above: Performed By: #### AFPMAT #### [facility] [address] [place] [address] Dr. 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 Linsey Witt Work Phone: [facility] [place] Work Phone: Start: 05-15-2023 End: 05-15-2023 ambulatory 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 MECHANIC Linsey Witt Work Phone: [facility] Work Phone: Start: 05-15-2023 Office outpatient vi sit 25 minutes Linsey Witt [facility] Start: 05-09-2023 End: 05-09-2023 ambulatory Gissel Santana Other [facility] Other Start: 05-09-2023 Office outpatient vi sit 15 minutes Gissel Santana [facility] Start: 04-12-2023 End: 04-12-2023 ambulatory Gissel Santana Other [facility] Other Start: 04-12-2023 Encounter for genera l adult medical examination without abnormal findings Gissel Santana [facility] Start: 04-12-2023 Periodic preventive med est patient 18-39 yrs Gissel Santana [facility] Start: 02-15-[address] ESTELLA [...] encounter procedure 01/14/2024 8:30 AM EDT Routine [facility] OB [address] [place] [id number] Estella Min, DO [address] [place] [address] [facility] Start: 12-13-2023 End: 12-13-2024 ABO/Rh ABO/Rh Lab Routine Missed menses Expected: 12/13/2023 (Approximate), Expires: 12/13/2024 [facility] Comment on above: Expected: 12/13/2023 (Approximate), Expires: 12/13/2024 Start: 12-13-2023 End: 12-13-2024 Blood type and Indirect antibody screen panel - Blood Type and screen Lab Routine Missed menses Expected: 12/13/2023 (Approximate), Expires: 12/13/2024 [facility] Work Phone: Comment on above: Expected: 12/13/2023 (Approximate), Expires: 12/13/2024 Start: 12-13-2023 End: 12-13-2024 Thyroid panel with tsh Thyroid panel with tsh Lab Routine Missed menses Expected: 12/13/2023 (Approximate), Expires: 12/13/2024 [facility] Comment on above: Expected: 12/13/2023 (Approximate), Expires: 12/13/2024 Start: 12-13-2023 End: 12-13-2024 US Pelvis transvaginal US OB transvaginal Imaging Routine Missed menses Expected: 12/13/2023 (Approximate), Expires: 12/13/2024 [facility] Comment on above: Expected: 12/13/2023 (Approximate), Expires: 12/13/2024 Start: 05-15-2023 Throat culture Throat Culture [facility] Bacteria identified in Urine by Culture Urine culture Microbiology Routine Missed menses Ordered: 12/13/2023 [facility] Comment on above: Ordered: 12/13/2023 CBC W Auto Different ial panel - Blood CBC and differential Lab Routine Missed menses Ordered: 12/13/2023 [facility] Comment on above: Ordered: 12/13/2023 Hemoglobin A1c/Hemoglobin.total in Blood Hemoglobin A1c Lab Routine Missed menses Ordered: 12/13/2023 [facility] Comment on above: Ordered: 12/13/2023 Hepatitis B virus surface Ag [Presence] in Serum or Plasma by Immunoassay Hepatitis B surface antigen Lab Routine Missed menses Ordered: 12/13/2023 [facility] Comment on above: Ordered: 12/13/2023 Hepatitis C virus Ab [Presence] in Serum or Plasma by Immunoassay Hepatitis C antibody Lab Routine Missed menses Ordered: 12/13/2023 [facility] Comment on above: Ordered: 12/13/2023 HIV-1/HIV-2 antigen/antibody combination immunoassay HIV-1 and HIV-2 antibodies Lab Routine Missed menses Ordered: 12/13/2023 [facility] Comment on above: Ordered: 12/13/2023 Reagin Ab [Presence] in Serum by RPR RPR Lab Routine Missed menses Ordered: 12/13/2023 [facility] Comment on above: Ordered: 12/13/2023 Rubella antibody, IgG Rubella an tibody, IgG Lab Routine Missed menses Ordered: 12/13/2023 [facility] Comment on above: Ordered: 12/13/2023 Payers Date Payer Category Payer Unknown BCBS BCBS [id number] [id number] 2020-Present [phone] [address] [place] [address] [id number] 1994 Unknown [id number] 2.16.840.1.435262.3.579.2.593 1994 Unknown [id number] 2.16.840.1.917136.3.579.2.593 1994 Unknown [id number] 2.16.840.1.176560.3.579.2.593 1994 Unknown [id number] 2.16.840.1.091812.3.579.2.593 1994 Unknown [id number] 2.16.840.1.897785.3.579.2.593 1994 Unknown [id number] 2.16.840.1.919250.3.579.2.593 1994 Unknown [id number] 2.16.840.1.621252.3.579.2.593 1994 Unknown [id number] 2.16.840.1.028085.3.579.2.593 1994 Unknown [id number] 2.16.840.1.059663.3.579.2.593 1994 Unknown [id number] 2.16.840.1.862060.3.579.2.593 1994 Unknown [id number] 2.16.840.1.165920.3.579.2.593 1994 Unknown [id number] 2.16.840.1.765649.3.579.2.593 1994 Unknown [id number] 2.16.840.1.863379.3.579.2.593 1994 Unknown [id number] 2.16.840.1.932401.3.579.2.593 1994 Unknown [id number] 2.16.840.1.611194.3.579.2.593 1994 Unknown [id number] 2.16.840.1.965949.3.579.2.593 1994 Unknown [id number] 2.16.840.1.150534.3.579.2.593 1994 Unknown [id number] 2.16.840.1.166043.3.579.2.593 1994 Unknown [id number] 2.16.840.1.793000.3.579.2.593 1994 Unknown [id number] 2.16.840.1.956424.3.579.2.593 1994 Unknown [id number] 2.16.840.1.272186.3.579.2.593 1994 Unknown [id number] 2.16.840.1.479371.3.579.2.593 1994 Unknown [id number] 2.16.840.1.276350.3.579.2.593 1994 Unknown [id number] 2.16.840.1.896178.3.579.2.593 1994 Unknown [id number] 2.16.840.1.766649.3.579.2.1259 1994 Unknown [id number] 2.16.840.1.376459.3.579.2.1259 1994 Unknown [id number] 2.16.840.1.637734.3.579.2.1259 1959 Self-pay 1960 Unknown [id number] Unknown [id number] 2.16.840.1.865572.3.579.2.593 Unknown [id number] 2.16.840.1.570461.3.579.2.531 Social History Date Type Detail Facility Unknown if ever smoked [facility] Other Start: 03-12-2023 Sex Assigned At N [facility] Other Start: 1995 Sex Assigned At Female F [facility] Start: 03-12-2023 Tobacco smoking status AKIS Never smoked tobacco [facility] Start: 03-12-2023 Tobacco use and exposure Smokeless tobacco non-user [facility] Start: 12-13-2023 Alcohol intake Lifetime non-d иван (finding) [facility] Start: 03-12-2023 History of Social function [facility] Start: 10-25-2023 [facility] Start: 1995 Sex Assigned At Not on file N [facility] Clinical Notes 03-09-2022 to 12-13-2023 Meenakshi [...] or undercooked meat, and stay away from [facility]. Patient has also been advised to [...] Meenakshi Rosenthal MA documented in this encounter [facility] 05-15-2023 Evaluation note Encounter Date Diagnosis [...] understanding and is agreeable to treatment plan. [facility] Other 07-12-2023 Evaluation note* Encounter Date Diagnosis Assessment Notes Treatment Notes Treatment Clinical Notes Apr, Anxiety disorder, unspecified (ICD-10 - F41.9) Pt states that she, and her , agree that she is doing better on the medication. Continues to have stress, but is dealing more appropriately. Would like to continue this med and this dose. f/u6 months, sooner if needed. [facility] Other 06-15-2023 Evaluation note* Encounter Date Diagnosis [...] help for overwhelm. followup in 1 month [facility] Other 05-12-2022 NoteEducation Materials Cardiovascular Hypertension, Adult [...] without skin, beans, e (more content not included)...[facility] noteNo assessment information availableTrihealth Work Phone: Evaluation noteNo InformationNort [facility] Other Evaluation note* Diagnosis Missed menses documented in this encounter [facility] Narrative - Reported* Type Description Date Surgical History C-sect 2019 Surgical History C-sect [address] [facility] Other Hiszoii general Narrative - Reported* Type Description Date Medical History Anxiety disorder, unspecified Surgical History C-sect 2019 Surgical History C-sect 2022 Hospitalization History SEE SURGICAL HX [facility] Other Hiswihf general Narrative - Reported* Type Description Date Medical History Anxiety disorder, unspecified Medical History Gestational diabetes Surgical History C-sect 2019 Surgical History C-sect 2022 Hospitalization History SEE SURGICAL HX [facility] Other Summary Purpose Family History No Family History Records FoundNo Family History Records FoundNo Family History Records FoundNo Family History Records Found Advance Directives No Advanced Directives Records FoundNo Advanced Directives Records FoundNo Advanced Directives Records FoundNo Advanced Directives Records Found Additional Source Comments INFORMATION SOURCE (unrecogn ized section and content) DATE CREATED AUTHOR 03/18/2022 [facility] DATE CREATED AUTHOR AUTHOR'S ORGANIZ ATION 02/15/2023 [facility] DATE CREATED AUTHOR AUTHOR'S ORGANIZ ATION 05/24/2023 [facility] DATE CREATED AUTHOR AUTHOR'S ORGANIZ ATION 02/11/2024 [facility] EPIC REASON FOR VISIT (unrecogniz ed section and content) Reason Comments Amenorrhea Care Teams (unrecognized sec tion and content) Team Status: Inactive Member Role Status Dates Linsey Witt APRN Attending Provider Active Luncheonette Manager Relationship Specialty Start Date End Date Gissel Santana MD [address] [place] [address] PCP - General Family Medicine [...] BE BASED ON THE PRIMARY CLINICAL RECORDS. [email or web address]. provides no warranty or guarantee of the accuracy or completeness of information in this document.
[2024-02-15 07:28] LABS: Glucose Fasting 109 mg/dL (<95)
[2024-02-15 09:01] LABS: Glucose 1 Hour 174 mg/dL (<180)
[2024-02-15 09:31] LABS: Glucose 2 Hour 156 mg/dL (<155)
[2024-02-15 10:46] LABS: Glucose 3 Hour 62 mg/dL (<140)
== END 2024-02-15 07:00 | disposition home or self-care (01) ==
LOC: LAB 06:59
PROVIDERS: Visit Provider Obstetrics & Gynecology
DX: O99.810 Abnormal glucose complicating pregnancy (principal); Z3A.17 17 weeks gestation of pregnancy
CPT/HCPCS: 36415; 82951; 82952

== ENCOUNTER 2024-02-28 07:59 | Outpatient (OUT) | payer BC, SELFPAY ==
--- NOTE | 2024-02-28 08:01 | US_ITS ---
[address] [address] Patient Name: VADIM CONSTANTINO MRN: [id number] date: 1995 Sex: F Assigned Patient Location: [facility] Current Patient Location: [facility] Accession/Order Number: [id number] Exam Date: 02/28/2024 08:02 Report Date: 02/28/2024 10:11 At the request of: ESTELLA BUENO Procedure: US OB anatomy EXAMINATION: US OB anatomy, US OB cervical length HISTORY: ANATOMY COMPARISON: No relevant comparison available. TECHNIQUE: Transabdominal sonographic examination was performed for obstetrical and evaluation. FINDINGS: Number: 1 Heart Rate: 158.0 bpm H.B. /min Amniotic Fluid Volume: Subjectively normal position: Variable Placental Location: Posterior. The placental edge is 2.5 cm from the internal cervical os Cervix Length: 4.7 cm , closed Normal anatomy: Lateral ventricles, cerebellum, posterior fossa, nose, lips, orbits, four-chamber heart, RVOT, LVOT, diaphragm, stomach, kidneys, abdominal cord insertion, bladder, umbilical arteries, spine, extremities Nonvisualization: Three-vessel cord Limited evaluation due to maternal body habitus BIOMETRY: BPD: 4.2 cm 18 weeks 5 days , 8% HC: 16.5 cm 19 weeks 1 days, 11% AC: 13.9 cm 19 weeks 2 days, 22% FL: 3.3 cm 20 weeks 1 days , 47% EFW:302.0 grams; 11 ounces, 25% FL/AC: 23.4 FL/BPD: 77.4 HC/AC: 1.2 GESTATIONAL AGE: Age by EDC: 20 weeks 0 days NILE by EDC: 07/17/2024 Age by current US: 19 weeks 2 days NILE by current US: 07/22/2024 US/US OB anatomy IMPRESSION: Suboptimal exam secondary to maternal body habitus Nonvisualization of the three-vessel cord Low lying placenta, the placental edge is 2.5 cm from the internal os Closed cervix measuring 4.7 cm in length *Reference: [employer] Practice Guideline for the performance of Obstetric Ultrasound Examinations, July 29, 2007. Electronically authenticated by: SEBASTIAN HENRY Date: 02/28/2024 10:11
--- NOTE | 2024-02-28 08:01 | US_ITS ---
[address] [address] Patient Name: VADIM CONSTANTINO MRN: [id number] date: 1995 Sex: F Assigned Patient Location: [facility] Current Patient Location: [facility] Accession/Order Number: [id number] Exam Date: 02/28/2024 08:02 Report Date: 02/28/2024 10:11 At the request of: ESTELLA BUENO Procedure: US OB cervical length EXAMINATION: US OB anatomy, US OB cervical length HISTORY: ANATOMY COMPARISON: No relevant comparison available. TECHNIQUE: Transabdominal sonographic examination was performed for obstetrical and evaluation. FINDINGS: Number: 1 Heart Rate: 158.0 bpm H.B. /min Amniotic Fluid Volume: Subjectively normal position: Variable Placental Location: Posterior. The placental edge is 2.5 cm from the internal cervical os Cervix Length: 4.7 cm , closed Normal anatomy: Lateral ventricles, cerebellum, posterior fossa, nose, lips, orbits, four-chamber heart, RVOT, LVOT, diaphragm, stomach, kidneys, abdominal cord insertion, bladder, umbilical arteries, spine, extremities Nonvisualization: Three-vessel cord Limited evaluation due to maternal body habitus BIOMETRY: BPD: 4.2 cm 18 weeks 5 days , 8% HC: 16.5 cm 19 weeks 1 days, 11% AC: 13.9 cm 19 weeks 2 days, 22% FL: 3.3 cm 20 weeks 1 days , 47% EFW:302.0 grams; 11 ounces, 25% FL/AC: 23.4 FL/BPD: 77.4 HC/AC: 1.2 GESTATIONAL AGE: Age by EDC: 20 weeks 0 days NILE by EDC: 07/17/2024 Age by current US: 19 weeks 2 days NILE by current US: 07/22/2024 US/US OB cervical length IMPRESSION: Suboptimal exam secondary to maternal body habitus Nonvisualization of the three-vessel cord Low lying placenta, the placental edge is 2.5 cm from the internal os Closed cervix measuring 4.7 cm in length *Reference: [employer] Practice Guideline for the performance of Obstetric Ultrasound Examinations, July 29, 2007. Electronically authenticated by: SEBASTIAN HENRY Date: 02/28/2024 10:11
--- OUTSIDE RECORDS SUMMARY | 2024-02-28 08:21 | XMS_ITS | CCD ---
Author Organization [facility] Care Team Providers Care Stone Dresser Name Role Phone MECHELLE ., DR SORIA [...] Unavailable MECHELLE ., DR SORIA Admitting Unavailable [place], Sebastian Consulting Unavailable SANTANA, DR GISSEL Teresa Primary Care Unavailable MECHELLE ., DR SORIA Consulting Unavailable SANTANA, DR GISSEL Teresa Primary Care Unavailable MECHELLE ., DR SORIA Admitting Unavailable MECHELLE ., DR SORIA Attending Unavailable Gissel Santana Unavailable TERESA Witt Attending Provider [phone] Olive Howard Unavailable Linsey Witt Attending Unavailable Linsey Witt Admitting Unavailable NO FAMILY, PHYSICIAN Primary Care Unavailable Linsey Witt Unavailable Gissel Santana MD Primary Care Provider [phone] ESTELLA MIN Attending Unavailable ESTELLA MIN Attending [...] Interpretation and review of laboratory results Abnormal [facility] Preg Test, Ur Positive [facility] Urinalysis macro (dipstick) panel (U)on 12-13-2023 Bilirubin, UA Negative Negative - 4(70) +++ mg/dL [facility] Blood, UA Negative Negative - 50 Sal/mcL [facility] Clarity, UA Clear [facility] Color, UA Yellow [facility] Glucose, UA Negative Negative - 1999(110) ++++ mg/dL [facility] Interpretation and review of laboratory results Abnormal [facility] Ketones, UA Positive Negative - 160(16) ++++ mg/dL [facility] Leukocytes, UA Negative Negative - 500+++ Lizzy/mcL [facility] Nitrite, UA Negative Negative - Positive [facility] pH, UA 7.0 5 - 9 [facility] Protein, UA Positive Negative - 1999(20) ++++ mg/dL [facility] Spec Grav, UA 1.030 1 - 1.03 [facility] Urobilinogen, UA 0.2 0.2 - 12 mg/dL [facility] Quick Strepon 05-15-2023 S. pyogenes Org specific cx Ql (Throat) Negative [employer] [facility] [employer] Other Quick Strep [employer] [facility] [employer] Other Throat Cultureon 05-15-2023 Throat culture Heavy Normal Respiratory John 2 Days PERFORMED BY: [address] [id number] PATHOLOGIST LAST INSERTER ARACELI HAYWOOD M.D. Normal [facility] Comment on above: Performed By: #### C UT #### [address] GROUP B STREP CULTUREon 01-27 S. [...] F Tetracycline <=0.25 S F Normal [facility] Comment on above: Performed By: #### A FPMAT #### [facility] [address] [place] [address] Dr. Alexsander Dickinson CBC AUTO DIFFon 02-02-2023 BASO # 0.0 103/ul Normal 0.0-0.1 [facility] Comment on above: Performed By: #### C BC #### [facility] [address] [place] [address] Dr. Alexsander Dickinson Basophils/100 WBC (Bld) 0.2 % Normal 0.2-2.0 [facility] Comment on above: Performed By: #### C BC #### [facility] [address] [place] [address] Dr. Alexsander Dickinson EO # 0.0 103/ul Normal 0.0-0.7 [facility] Comment on above: Performed By: #### C BC #### [facility] [address] [place] [address] Dr. Alexsander Dickinson Eosinophils/100 WBC (Bld) 0.0 % Critically low 0.9-7.0 [facility] Comment on above: Performed By: #### C BC #### [facility] [address] [place] [address] Dr. Alexsander Dickinson Erythrocyte distribution width (RBC) [Ratio] 12.5 % Normal 11.0-15.0 [facility] Comment on above: Performed By: #### C BC #### [facility] [address] [place] [address] Dr. Alexsander Dickinson Hematocrit (Bld) [Volume fraction] 32.9 % Critically low 36.0-48.0 [facility] Comment on above: Performed By: #### C BC #### [facility] [address] [place] [address] Dr. Alexsander Dickinson Hemoglobin (Bld) [Mass/Vol] 10.7 g/dL Critically low 12.0-16.0 [facility] Comment on above: Performed By: #### C BC #### [facility] [address] [place] [address] Dr. Alexsander Dickinson IG # 0.12 10e3/ul Critically high 0.00-0.03 [facility] Comment on above: Performed By: #### C BC #### [facility] [address] [place] [address] Dr. Alexsander Dickinson IG % 0.7 % Critically high 0.0-0.5 [facility] Comment on above: Performed By: #### C BC #### [facility] [address] [place] [address] Dr. Alexsander Dickinson LYMPH # 1.1 103/ul Critically low 1.2-3.8 [facility] Comment on above: Performed By: #### C BC #### [facility] [address] [place] [address] Dr. Alexsander Dickinson Lymphocytes/100 WBC (Bld) 6.4 % Critically low 20.5-60.0 [facility] Comment on above: Performed By: #### C BC #### [facility] [address] [place] [address] Dr. Alexsander Dickinson MANUAL DIFF REQ NO Normal [facility] Comment on above: Performed By: #### C BC #### [facility] [address] [place] [address] Dr. Alexsander Dickinson MCH (RBC) [Entitic mass] 26.1 pg Critically low 26.7-34.0 [facility] Comment on above: Performed By: #### C BC #### [facility] [address] [place] [address] Dr. Alexsander Dickinson MCHC (RBC) [Mass/Vol] 32.5 g/dL Normal 29.9-35.2 [facility] Comment on above: Performed By: #### C BC #### [facility] [address] [place] [address] Dr. Alexsander Dickinson MCV (RBC) [Entitic vol] 80.2 fL Critically low 81.0-99.0 [facility] Comment on above: Performed By: #### C BC #### [facility] [address] [place] [address] Dr. Alexsander Dickinson MONO # 0.4 103/ul Normal 0.3-0.8 [facility] Comment on above: Performed By: #### C BC #### [facility] [address] [place] [address] Dr. Alexsander Dickinson Monocytes/100 WBC (Bld) 2.1 % Normal 1.7-12.0 [facility] Comment on above: Performed By: #### C BC #### [facility] [address] [place] [address] Dr. Alexsander Dickinson NEUT # 15.5 103/ul Critically high 1.4-6.5 [facility] Comment on above: Performed By: #### C BC #### [facility] [address] [place] [address] Dr. Alexsander Dickinson Neutrophils/100 WBC (Bld) 90.6 % Critically high 43.0-75.0 [facility] Comment on above: Performed By: #### C BC #### [facility] [address] [place] [address] Dr. Alexsander Dickinson Platelet mean volume (Bld) [Entitic vol] 10.7 fL Normal 9.5-13.5 [facility] Comment on above: Performed By: #### C BC #### [facility] [address] [place] [address] Dr. Alexsander Dickinson PLT 310 103/ul Normal 150-450 [facility] Comment on above: Performed By: #### C BC #### [facility] [address] [place] [address] Dr. Alexsander Dickinson RBC 4.10 106/ul Critically low 4.20-5.40 [facility] Comment on above: Performed By: #### C BC #### [facility] [address] [place] [address] Dr. Alexsander Dickinson WBC 17.1 103/ul Critically high 4.0-11.0 [facility] Comment on above: Performed By: #### C BC #### [facility] [address] [place] [address] Dr. Alexsander Dickinson CBC AUTO DIFFon 02-01-2023 BASO # 0.0 103/ul Normal 0.0-0.1 [facility] Comment on above: Performed By: #### A 1C #### [facility] [address] [place] [address] Dr. Alexsander Dickinson Basophils/100 WBC (Bld) 0.2 % Normal 0.2-2.0 [facility] Comment on above: Performed By: #### A 1C #### [facility] [address] [place] [address] Dr. Alexsander Dickinson EO # 0.0 103/ul Normal 0.0-0.7 [facility] Comment on above: Performed By: #### A 1C #### [facility] [address] [place] [address] Dr. Alexsander Dickinson Eosinophils/100 WBC (Bld) 0.4 % Critically low 0.9-7.0 [facility] Comment on above: Performed By: #### A 1C #### [facility] [address] [place] [address] Dr. Alexsander Dickinson Erythrocyte distribution width (RBC) [Ratio] 12.9 % Normal 11.0-15.0 [facility] Comment on above: Performed By: #### A 1C #### [facility] [address] [place] [address] Dr. Alexsander Dickinson Hematocrit (Bld) [Volume fraction] 34.2 % Critically low 36.0-48.0 [facility] Comment on above: Performed By: #### A 1C #### [facility] [address] [place] [address] Dr. Alexsander Dickinson Hemoglobin (Bld) [Mass/Vol] 11.4 g/dL Critically low 12.0-16.0 [facility] Comment on above: Performed By: #### A 1C #### [facility] [address] [place] [address] Dr. Alexsander Dickinson IG # 0.04 10e3/ul Critically high 0.00-0.03 [facility] Comment on above: Performed By: #### A 1C #### [facility] [address] [place] [address] Dr. Alexsander Dickinson IG % 0.5 % Normal 0.0-0.5 [facility] Comment on above: Performed By: #### A 1C #### [facility] [address] [place] [address] Dr. Alexsander Dickinson LYMPH # 2.1 103/ul Normal 1.2-3.8 [facility] Comment on above: Performed By: #### A 1C #### [facility] [address] [place] [address] Dr. Alexsander Dickinson Lymphocytes/100 WBC (Bld) 23.9 % Normal 20.5-60.0 [facility] Comment on above: Performed By: #### A 1C #### [facility] [address] [place] [address] Dr. Alexsander Dickinson MANUAL DIFF REQ NO Normal [facility] Comment on above: Performed By: #### A 1C #### [facility] [address] [place] [address] Dr. Alexsander Dickinson MCH (RBC) [Entitic mass] 27.0 pg Normal 26.7-34.0 [facility] Comment on above: Performed By: #### A 1C #### [facility] [address] [place] [address] Dr. Alexsander Dickinson MCHC (RBC) [Mass/Vol] 33.3 g/dL Normal 29.9-35.2 [facility] Comment on above: Performed By: #### A 1C #### [facility] [address] [place] [address] Dr. Alexsander Dickinson MCV (RBC) [Entitic vol] 81.0 fL Normal 81.0-99.0 [facility] Comment on above: Performed By: #### A 1C #### [facility] [address] [place] [address] Dr. Alexsander Dickinson MONO # 0.5 103/ul Normal 0.3-0.8 [facility] Comment on above: Performed By: #### A 1C #### [facility] [address] [place] [address] Dr. Alexsander Dickinson Monocytes/100 WBC (Bld) 6.0 % Normal 1.7-12.0 [facility] Comment on above: Performed By: #### A 1C #### [facility] [address] [place] [address] Dr. Alexsander Dickinson NEUT # 5.9 103/ul Normal 1.4-6.5 [facility] Comment on above: Performed By: #### A 1C #### [facility] [address] [place] [address] Dr. Alexsander Dickinson Neutrophils/100 WBC (Bld) 69.0 % Normal 43.0-75.0 [facility] Comment on above: Performed By: #### A 1C #### [facility] [address] [place] [address] Dr. Alexsander Dickinson Platelet mean volume (Bld) [Entitic vol] 10.5 fL Normal 9.5-13.5 [facility] Comment on above: Performed By: #### A 1C #### [facility] [address] [place] [address] Dr. Alexsander Dickinson PLT 275 103/ul Normal 150-450 [facility] Comment on above: Performed By: #### A 1C #### [facility] [address] [place] [address] Dr. Alexsander Dickinson RBC 4.22 106/ul Normal 4.20-5.40 [facility] Comment on above: Performed By: #### A 1C #### [facility] [address] [place] [address] Dr. Alexsander Dickinson WBC 8.6 103/ul Normal 4.0-11.0 [facility] Comment on above: Performed By: #### A 1C #### [facility] [address] [place] [address] Dr. Alexsander Dickinson LDHon 02-01-2023 LDH 124 U/L Normal 81-234 [facility] Comment on above: Performed By: #### C MP, LDH, URIC #### [facility] [address] [place] [address] Dr. Alexsander Dickinson POINT OF CARE GLUCOSEon Glucose [Mass/Vol] 98 mg/dL Normal 74-106 [facility] Comment on above: Performed By: #### A 1C #### [facility] [address] [place] [address] Dr. Alexsander Dickinson PROF 14(COMP METB)on 023 Albumin [Mass/Vol] 2.5 g/dL Critically low 3.4-5.0 [facility] Comment on above: Performed By: #### C MP, LDH, URIC #### [facility] [address] [place] [address] Dr. Alexsander Dickinson Albumin/Globulin [Mass ratio] 0.6 {ratio} Normal [facility] Comment on above: Performed By: #### C MP, LDH, URIC #### [facility] [address] [place] [address] Dr. Alexsander Dickinson ALP [Catalytic activity/Vol] 138 U/L Critically high 46-116 [facility] Comment on above: Performed By: #### C MP, LDH, URIC #### [facility] [address] [place] [address] Dr. Alexsander Dickinson ALT [Catalytic activity/Vol] 15 U/L Normal 14-59 [facility] Comment on above: Performed By: #### C MP, LDH, URIC #### [facility] [address] [place] [address] Dr. Alexsander Dickinson Anion gap [Moles/Vol] 14.5 mmol/L Normal [facility] Comment on above: Performed By: #### C MP, LDH, URIC #### [facility] [address] [place] [address] Dr. Alexsander Dickinson AST [Catalytic activity/Vol] 8 U/L Critically low 15-37 [facility] Comment on above: Performed By: #### C MP, LDH, URIC #### [facility] [address] [place] [address] Dr. Alexsander Dickinson Bilirubin [Mass/Vol] 0.2 mg/dL Normal 0.2-1.0 [facility] Comment on above: Performed By: #### C MP, LDH, URIC #### [facility] [address] [address] [address] Alexsander Dickinson Calcium [Mass/Vol] 8.6 mg/dL Normal 8.5-10.1 [facility] Comment on above: Performed By: #### C MP, LDH, URIC #### [facility] [address] [place] [address] Dr. Alexsander Dickinson Chloride [Moles/Vol] 103 mmol/L Normal 98-107 [facility] Comment on above: Performed By: #### C MP, LDH, URIC #### [facility] [address] [place] [address] Dr. Alexsander Dickinson CO2 [Moles/Vol] 23.7 mmol/L Normal 21.0-32.0 [facility] Comment on above: Performed By: #### C MP, LDH, URIC #### [facility] [address] [place] [address] Dr. Alexsander Dickinson Creatinine [Mass/Vol] 0.61 mg/dL Normal 0.55-1.02 [facility] Comment on above: Performed By: #### C MP, LDH, URIC #### [facility] [address] [place] [address] Dr. Alexsander Dickinson EGFR-AF CITIZ[place] >60 Normal >=60 [facility] Comment on above: Performed By: #### C MP, LDH, URIC #### [facility] [address] [place] [address] Dr. Alexsander Dickinson EGFR-NON AF CITIZEN [place] >60 Normal >=60 [facility] Comment on above: Performed By: #### C MP, LDH, URIC #### [facility] [address] [place] [address] Dr. Alexsander Dickinson Globulin (S) [Mass/Vol] 4.1 g/dL Normal [facility] Comment on above: Performed By: #### C MP, LDH, URIC #### [facility] [address] [address] [address] Alexsander Dickinson Glucose [Mass/Vol] 123 mg/dL Critically high 74-106 [facility] Comment on above: Performed By: #### C MP, LDH, URIC #### [facility] [address] [place] [address] Dr. Alexsander Dickinson Potassium [Moles/Vol] 4.2 mmol/L Normal 3.5-5.1 [facility] Comment on above: Performed By: #### C MP, LDH, URIC #### [facility] [address] [place] [address] Dr. Alexsander Dickinson Protein [Mass/Vol] 6.6 g/dL Normal 6.4-8.2 [facility] Comment on above: Performed By: #### C MP, LDH, URIC #### [facility] [address] [place] [address] Dr. Alexsander Dickinson Sodium [Moles/Vol] 137 mmol/L Normal 136-145 [facility] Comment on above: Performed By: #### C MP, LDH, URIC #### [facility] [address] [place] [address] Dr. Alexsander Dickinson Urea nitrogen [Mass/Vol] 5.0 mg/dL Critically low 7.0-18.0 [facility] Comment on above: Performed By: #### C MP, LDH, URIC #### [facility] [address] [place] [address] Dr. Alexsander Dickinson Urea nitrogen/Creatinine [Mass ratio] 8.2 mg/mg Normal [facility] Comment on above: Performed By: #### C MP, LDH, URIC #### [facility] [address] [place] [address] Dr. Alexsander Dickinson PROTIMEon 02-01-2023 INR Coag (PPP) [Relative time] {INR} Normal [facility] Comment on above: Performed By: #### H BSANS #### [facility] [address] [place] [address] Dr. Alexsander Dickinson INR GUIDELINES SEE BELOW Normal [facility] Comment on above: Result Comment: CAROLEE RED INR: 2.0 - 3.0 CONDITIONS NOT LISTED BELOW 2.5 - 3.5 FOR PROSTHETIC HEART VALVE REPLACEMENT 2.5 - 3.5 RECURRENT THROMBOSIS Performed By: #### H BSANS #### [facility] [address] [place] [address] Dr. Alexsander Dickinson PT Coag (PPP) [Time] 9.2 s Normal 9.0-11.6 [facility] Comment on above: Performed By: #### H BSANS #### [facility] [address] [place] [address] Dr. Alexsander Dickinson PTTon 02-01-2023 aPTT Coag (Bld) [Time] 25.9 s Normal 22.3-36.2 [facility] Comment on above: Performed By: #### H BSANS #### [facility] [address] [place] [address] Dr. Alexsander Dickinson TYPE AND SCREENon 02-01-2023 TYPE AND SCREEN Negative Normal [facility] Comment on above: Performed By: #### A FPMAT #### [facility] [address] [place] [address] Dr. Alexsander Dickinson URIC ACID SERUMon 02-01-2023 Urate [Mass/Vol] 5.5 mg/dL Normal 2.6-6.0 [facility] Comment on above: Performed By: #### C MP, LDH, URIC #### [facility] [address] [place] [address] Dr. Alexsander Dickinson US PREG BIOPHY W [...] by: DEE GALLEGOS Date: 2023-02-01 15:04 Normal [facility] US PREG BIOPHY W NON STRESSo [...] by: SEBASTIAN HENRY Date: 2023-01-25 15:18 Normal [facility] US PREG BIOPHY W NON STRESSo [...] by: DEE GALLEGOS Date: 2023-01-19 06:16 Normal [facility] US PREG BIOPHY W NON STRESSo [...] DEE GALLEGOS Date: 2023-01-11 15:38 Normal [facility] US PREG GROWTHon 01-11-2023 US [...] DEE GALLEGOS Date: 2023-01-11 16:42 Normal [facility] GTT 3 HR PREGon 12-01-2022 Glucose [Mass/Vol] 104 mg/dL Normal 74-106 [facility] Comment on above: Performed By: #### A 1C #### [facility] [address] [place] [address] Dr. Alexsander Dickinson Glucose [Mass/Vol] 182 mg/dL Normal [facility] Comment on above: Performed By: #### A 1C #### [facility] [address] [address] [address] Alexsander Dickinson Glucose [Mass/Vol] 114 mg/dL Normal [facility] Comment on above: Performed By: #### A 1C #### [facility] [address] [address] [address] Alexsander Dickinson Glucose [Mass/Vol] 73 mg/dL Normal [facility] Comment on above: Performed By: #### A 1C #### [facility] [address] [address] [address] Alexsander Dickinson PAP ACOG PANEL 2: 20 to 28on 11-18-2022 . . Normal [facility] Comment on above: Performed By: #### A 1C #### [facility] [address] [place] [address] Dr. Alexsander Dickinson Age Gdln ACOG Testing [facility] Comment on above: Performed By: #### A 1C #### [facility] [address] [place] [address] Dr. Alexsander Dickinson DIAGNOSIS: Comment [facility] Comment on above: Result Comment: NEGA TIVE FOR INTRAEPITHELIAL LESION OR MALIGNANCY. Performed By: #### A 1C #### [facility] [address] [address] [address] Alexsander Dickinson Methodology: Comment [facility] Comment on above: Result Comment: This liquid based ThinPrep(R) pap test was screened with the use of an image guided system. Performed By: #### A 1C #### [facility] [address] [place] [address] Dr. Alexsander Dickinson Note: Comment [facility] Comment on above: Result Comment: The Pap smear is a screening test designed to aid in the detection of premalignant and malignant conditions of the uterine cervix. It is not a diagnostic procedure and should not be used as the sole means of detecting cervical cancer. Both false-positive and false-negative reports do occur. . Performed By: #### A 1C #### [facility] [address] [place] [address] Dr. Alexsander Dickinson Performed by: Comment Normal [facility] Comment on above: Result Comment: Cici Clarke, Computational Physicist (ASCP) Performed By: #### A 1C #### [facility] [address] [place] [address] Dr. Alexsander Dickinson Reflex Criteria: Comment [facility] Comment on above: Result Comment: The HPV DNA reflex criteria were not met with this specimen result therefore, no HPV testing was performed. . Performed By: #### A 1C #### [facility] [address] [place] [address] Dr. Alexsander Dickinson Specimen adequacy: Comment [facility] Comment on above: Result Comment: Sati sfactory for evaluation. No endocervical component is identified. Performed By: #### A 1C #### [facility] [address] [place] [address] Dr. Alexsander Dickinson CHLAMYDIA/GONOCOCCUS ZUNILDA ( AB/URINE/PAPon 11-17-2022 Chlamydia trachomatis, ZUNILDA Negative Normal Negative [facility] Comment on above: Performed By: #### A 1C #### [facility] [address] [place] [address] Dr. Alexsander Dickinson Neisseria gonorrhoeae, ZUNILDA Negative Normal Negative [facility] Comment on above: Performed By: #### A 1C #### [facility] [address] [place] [address] Dr. Alexsander Dickinson VAGINITIS/VAGINOSIS DNA PROB Jose De Jesus 11-16-2022 Reema species Negative Normal Negative [facility] Comment on above: Performed By: #### V AGINT #### [facility] [address] [place] [address] Dr. Alexsander Dickinson Gardnerella vaginalis Negative Normal Negative [facility] Comment on above: Performed By: #### V AGINT #### [facility] [address] [place] [address] Dr. Alexsander Dickinson Trichomonas vaginalis Negative Normal Negative [facility] Comment on above: Performed By: #### V AGINT #### [facility] [address] [place] [address] Dr. Alexsander Dickinson US PREG INCOMPLETE ANATOMYon 11-14-2022 PREG INCOMPLETE ANATOMY EXAMINATION: US PREG INCOMPLETE ANATOMY HISTORY: screening COMPARISON: No relevant comparison available. FINDINGS: Heart rate: 150 bpm position: Variable Anatomy: 4.8 x 5.8 mm choroid plexus cyst is again identified IMPRESSION: Stable choroid plexus cyst Electronically authenticated by: SEBASTIAN HENRY Date: 2022-11-14 16:19 Normal [facility] FREE T4on 10-19-2022 Free T4 [Mass/Vol] 0.89 ng/dL Normal 0.76-1.46 [facility] Comment on above: Performed By: #### H BSANS #### [facility] [address] [place] [address] Dr. Alexsander Dickinson TSHon 10-19-2022 TSH 1.303 uIU/mL Normal 0.358-3.740 [facility] Comment on above: Performed By: #### H BSANS #### [facility] [address] [address] [address] Alexsander Dickinson US PREG ANATOMY SINGLEon [...] DEE GALLEGOS Date: 2022-10-17 20:42 Normal [facility] AFP MATERNAL FOR SPINA BIFID Aon 10-11-2022 AFP MoM 1.49 Normal [facility] Comment on above: Performed By: #### A FPMAT #### [facility] [address] [address] [address] Alexsander Dickinson AFP Value 60.8 ng/mL Normal [facility] Comment on above: Performed By: #### A FPMAT #### [facility] [address] [address] [address] Alexsander Dickinson AFP, Serum for Spina Bifida Report Normal [facility] Comment on above: Performed By: #### A FPMAT #### [facility] [address] [address] [address] Alexsander Dickinson Comment Comment Normal [facility] Comment on above: Result Comment: Niurka Patricia, Ph.D., [facility] Director . References: Available Upon Request. . Multiples Of Median Cutoffs For AFP Elevations Fonscea 2.5 Black 2.8 IDD 2.0 Twins 4.5 Abbreviation Definitions IDD - Insulin Dep Diabetes OSBR - Open Spina Bifida Risk . For further inquiries contact [employer] [facility] at [phone]. . This test was developed and its performance characteristics determined by [employer]. It has not been cleared or approved by the Food and Drug Administration. Performed By: #### A FPMAT #### [facility] [address] [address] [address] Alexsander Tiwari Age Collection Date 19.4 weeks [facility] Comment on above: Performed By: #### A FPMAT #### [facility] [address] [place] [address] Dr. Alexsander Dickinson Gestat, Age Based on NILE Normal [facility] Comment on above: Result Comment: 02/2023 Recalculations are not recommended when gestational dating by LMP and ultrasound are within 10 days. Performed By: #### A FPMAT #### [facility] [address] [address] [address] Alexsander Dickinson Insulin Dep Diabetes No Normal [facility] Comment on above: Performed By: #### A FPMAT #### [facility] [address] [place] [address] Dr. Alexsander Dickinson Interpretation Comment Normal [facility] Comment on above: Result Comment: Inte [...] Customer Services to discuss available options. The [employer] recommends amniocentesis be offered to women age 35 and older. Performed By: #### A FPMAT #### [facility] [address] [place] [address] Dr. Alexsander Dickinson [age] Normal [facility] Comment on above: Performed By: #### A FPMAT #### [facility] [address] [place] [address] Dr. Alexsander Dickinson Multiple Gestation No Normal [facility] Comment on above: Performed By: #### A FPMAT #### [facility] [address] [place] [address] Dr. Alexsander Dickinson OSBR Risk 1 [place] 2809 Normal [facility] Comment on above: Performed By: #### A FPMAT #### [facility] [address] [place] [address] Dr. Alexsander Dickinson PDF . Normal [facility] Comment on above: Performed By: #### A FPMAT #### [facility] [address] [place] [address] Dr. Alexsander Dickinson Race Normal [facility] Comment on above: Performed By: #### A FPMAT #### [facility] [address] [place] [address] Dr. Alexsander Dickinson Test Results: Negative Normal [facility] Comment on above: Performed By: #### A FPMAT #### [facility] [address] [place] [address] Dr. Alexsander Dickinson GTT 3 HR PREGon 09-29-2022 Glucose [Mass/Vol] 99 mg/dL Normal 74-106 [facility] Comment on above: Performed By: #### A FPMAT #### [facility] [address] [address] [address] Alexsander Dickinson Glucose [Mass/Vol] 173 mg/dL Normal [facility] Comment on above: Performed By: #### A FPMAT #### [facility] [address] [address] [address] Alexsander Dickinson Glucose [Mass/Vol] 151 mg/dL Normal [facility] Comment on above: Performed By: #### A FPMAT #### [facility] [address] [address] [address] Alexsander Dickinson Glucose [Mass/Vol] 76 mg/dL Normal [facility] Comment on above: Performed By: #### A FPMAT #### [facility] [address] [address] [address] Alexsander Dickinson GLUCOSE - 1HRon 09-20-2022 Glucose [Mass/Vol] 159 mg/dL Critically high 74-106 [facility] Comment on above: Performed By: #### H BSANS #### [facility] [address] [address] [address] Alexsander Dickinson HEP B SURFACE ANTIGEN SCREEN on 08-17-2022 HBsAg Screen Negative Normal Negative [facility] Comment on above: Performed By: #### H BSANS #### [facility] [address] [address] [address] Alexsander Dickinson HEPATITIS C VIRUS AB W/ REFL EX QUANTon 08-17-2022 HCV AB <0.1 Normal 0.0-0.9 [facility] Comment on above: Performed By: #### A 1C #### [facility] [address] [address] [address] Alexsander Dickinson Interpretation: Comment Normal [facility] Comment on above: Result Comment: Nega tive Not infected with HCV, unless recent infection is suspected or other evidence exists to indicate HCV infection. Performed By: #### A 1C #### [facility] [address] [place] [address] Dr. Alexsander Dickinson HIV 1 AND 2 WITH REFLEXon HIV Screen 4th Generation wRfx Non-Reactive Normal Non Reactive [facility] Comment on above: Result Comment: HIV Negative HIV-1/HIV-2 antibodies and HIV-1 p24 antigen were NOT detected. There is no laboratory evidence of HIV infection. Performed By: #### H IV12 #### [facility] [address] [place] [address] Dr. Alexsander Dickinson RPR QUANTon 08-17-2022 Rapid Plasma Reagin, Quant Non-Reactive Normal NonRea<1:1 [facility] Comment on above: Result Comment: Plea se Note: This test does not meet current guidelines for screening and diagnosis of syphilis. This test is intended for following treatment response in patients being treated for syphilis infection. To screen for syphilis infection, a reflex cascade that includes both RPR and a treponema-specific assay should be utilized, such as Treponema pallidum (Syphilis) Screening Graves (820191) or Rapid Plasma Reagin (RPR) Test With Reflex to Quantitative RPR and Confirmatory Treponema pallidum Antibodies (400802). Performed By: #### H BSANS #### [facility] [address] [place] [address] Dr. Alexsander Dickinson RUBELLA AB IGGon 08-17-2022 Rubella Antibodies, IgG 11.90 index Normal Immune >0.99 [facility] Comment on above: Result Comment: Non- immune <0.90 Equivocal 0.90 - 0.99 Immune >0.99 Performed By: #### H BSANS #### [facility] [address] [place] [address] Dr. Alexsander Dickinson CBC AUTO DIFFon 08-16-2022 BASO # 0.1 103/ul Normal 0.0-0.1 [facility] Comment on above: Performed By: #### H BSANS #### [facility] [address] [place] [address] Dr. Alexsander Dickinson Basophils/100 WBC (Bld) 0.6 % Normal 0.2-2.0 [facility] Comment on above: Performed By: #### H BSANS #### [facility] [address] [place] [address] Dr. Alexsander Dickinson EO # 0.1 103/ul Normal 0.0-0.7 [facility] Comment on above: Performed By: #### H BSANS #### [facility] [address] [place] [address] Dr. Alexsander Dickinson Eosinophils/100 WBC (Bld) 0.9 % Normal 0.9-7.0 [facility] Comment on above: Performed By: #### H BSANS #### [facility] [address] [place] [address] Dr. Alexsander Dickinson Erythrocyte distribution width (RBC) [Ratio] 12.9 % Normal 11.0-15.0 [facility] Comment on above: Performed By: #### H BSANS #### [facility] [address] [place] [address] Dr. Alexsander Dickinson Hematocrit (Bld) [Volume fraction] 39.0 % Normal 36.0-48.0 [facility] Comment on above: Performed By: #### H BSANS #### [facility] [address] [place] [address] Dr. Alexsander Dickinson Hemoglobin (Bld) [Mass/Vol] 12.9 g/dL Normal 12.0-16.0 [facility] Comment on above: Performed By: #### H BSANS #### [facility] [address] [place] [address] Dr. Alexsander Dickinson IG # 0.04 10e3/ul Critically high 0.00-0.03 [facility] Comment on above: Performed By: #### H BSANS #### [facility] [address] [place] [address] Dr. Alexsander Dickinson IG % 0.4 % Normal 0.0-0.5 [facility] Comment on above: Performed By: #### H BSANS #### [facility] [address] [place] [address] Dr. Alexsander Dickinson LYMPH # 2.4 103/ul Normal 1.2-3.8 [facility] Comment on above: Performed By: #### H BSANS #### [facility] [address] [place] [address] Dr. Alexsander Dickinson Lymphocytes/100 WBC (Bld) 26.3 % Normal 20.5-60.0 [facility] Comment on above: Performed By: #### H BSANS #### [facility] [address] [place] [address] Dr. Alexsander Dickinson MANUAL DIFF REQ NO Normal [facility] Comment on above: Performed By: #### H BSANS #### [facility] [address] [place] [address] Dr. Alexsander Dickinson MCH (RBC) [Entitic mass] 28.4 pg Normal 26.7-34.0 [facility] Comment on above: Performed By: #### H BSANS #### [facility] [address] [place] [address] Dr. Alexsander Dickinson MCHC (RBC) [Mass/Vol] 33.1 g/dL Normal 29.9-35.2 [facility] Comment on above: Performed By: #### H BSANS #### [facility] [address] [place] [address] Dr. Alexsander Dickinson MCV (RBC) [Entitic vol] 85.7 fL Normal 81.0-99.0 [facility] Comment on above: Performed By: #### H BSANS #### [facility] [address] [place] [address] Dr. Alexsander Dickinson MONO # 0.6 103/ul Normal 0.3-0.8 [facility] Comment on above: Performed By: #### H BSANS #### [facility] [address] [place] [address] Dr. Alexsander Dickinson Monocytes/100 WBC (Bld) 6.8 % Normal 1.7-12.0 [facility] Comment on above: Performed By: #### H BSANS #### [facility] [address] [place] [address] Dr. Alexsander Dickinson NEUT # 5.8 103/ul Normal 1.4-6.5 [facility] Comment on above: Performed By: #### H BSANS #### [facility] [address] [place] [address] Dr. Alexsander Dickinson Neutrophils/100 WBC (Bld) 65.0 % Normal 43.0-75.0 [facility] Comment on above: Performed By: #### H BSANS #### [facility] [address] [place] [address] Dr. Alexsander Dickinson Platelet mean volume (Bld) [Entitic vol] 9.9 fL Normal 9.5-13.5 [facility] Comment on above: Performed By: #### H BSANS #### [facility] [address] [address] [address] Alexsander Dickinson PLT 275 103/ul Normal 150-450 [facility] Comment on above: Performed By: #### H BSANS #### [facility] [address] [place] [address] Dr. Alexsander Dickinson RBC 4.55 106/ul Normal 4.20-5.40 [facility] Comment on above: Performed By: #### H BSANS #### [facility] [address] [place] [address] Dr. Alexsander Dickinson WBC 8.9 103/ul Normal 4.0-11.0 [facility] Comment on above: Performed By: #### H BSANS #### [facility] [address] [place] [address] Dr. Alexsander Dickinson CULTURE URINEon 08-16-2022 CULTURE URINE Culture Observations: MODERATE GROWTH OF MIXED GENITAL JOHN. NO POTENTIAL PATHOGENS SEEN. Normal [facility] Comment on above: Performed By: #### A FPMAT #### [facility] [address] [place] [address] Dr. Alexsander Dickinson GLYCOHEMOGLOBIN A1Con 2021 ADA RECOMMENDATION SEE BELOW Normal [facility] Comment on above: Result Comment: ADA RECOMMENDED LIMIT 4.0 - 6.0 ADA THERAPEUTIC TARGET < 7.0 ACTION SUGGESTED > 7.0 Performed By: #### A 1C #### [facility] [address] [place] [address] Dr. Alexsander Dickinson Glucose [Mass/Vol] 111 mg/dL Normal [facility] Comment on above: Performed By: #### A 1C #### [facility] [address] [place] [address] Dr. Alexsander Dickinson HbA1c (Bld) [Mass fraction] 5.5 % Normal 4.5-6.2 [facility] Comment on above: Performed By: #### A 1C #### [facility] [address] [place] [address] Dr. Alexsander Dickinson LATRELL BOX TEST PT SEND OUTo n 08-16-2022 SENT TO REF LAB 08/16/2022 Normal [facility] Comment on above: Performed By: #### N BOX #### [facility] [address] [place] [address] Dr. Alexsander Dickinson TYPE AND SCREENon 08-16-2022 TYPE AND SCREEN Negative Normal [facility] Comment on above: Performed By: #### A FPMAT #### [facility] [address] [place] [address] Dr. Alexsander Dickinson US PREG TVon 07-21-2022 [...] by: DEE GALLEGOS Date: 2022-07-20 22:25 Normal [facility] US PREG TVon 07-13-2022 US PREG TV EXAMINATION: US PREG TV HISTORY: Missed period COMPARISON: 03/09/2022 FINDINGS: Fonseca intrauterine gestation Gestational sac: 1.7 cm, 6 weeks 2 days Yolk sac: 1.7 mm [place]-rump length: 5.8 mm, 6 weeks 3 days Heart rate: 125 bpm Uterus is normal in appearance, anteverted, retroflexed The ovaries are normal in appearance. Cervix: Closed, 3.9 cm small amount of fluid in the endocervical canal IMPRESSION: Viable fonseca intrauterine gestation measuring 6 weeks 3 days Electronically authenticated by: SEBASTIAN HENRY Date: 2022-07-13 17:05 Normal [facility] Coding Summaryon 03-17-2022 Coding Summary HTMLBase 64 AtpbcljiHCk2tQd+PGhl YWQ+FE9OVRToS99mhODg xG4SA7tDLD1OEFHYBLDB JQ4UIL1szMJ3PHzjA0Vm biAv OblmyESsNO52RHq8OMJ0 dIciVJjugH9khDHmI6e1 HbFmFW40xV60UVmxVQZb ReG2TzVhpeqkwUCk C2yhAyMgiJZuOix+PHRh YmxlIHdpZHRoPScxMDAl UdWwqAxaOR0mBt8zWXTp LWNvbGxhcHNlOiBj e4txJTJbVLgyLX9nkCpf K4KocKH0KQNds6l8Ba23 dHI+QPDhVAR8qEctWCal j057ZtVrp7eeLQY9 gUMfJAuiERU9H80hq7W2 LKIrALXkRSF3vWF4eE4o lNlbeakcJ6RggGLjZgK6 UOX9lZMonA4raWlx aakmnW2tImh+C86KBF5I VBEWWL6BIlx2D9ZmLbid dHI+UA22BAYlEC25rSIe tJFuz7bwpVj1WuKv VOArSAX4iUsaCRssc5Tl WQRsX46ywHBto3V2EQPk pLtoyVLuYbZwcXP4rW8a HYhyzclqy0vrwbgu Ilrwd8cjhz69pB93N57a YVzgVDHnKDI7LYHpMMJe bQxsdg8wiZ9xRb2+IDxj d2yqx1owcAv8InIw ADZqywWuhAmuUEB7q5Ae Oy32J4DufFwax3UbEnw0 ye19oSJom2Y0wCM9DNru FNNwaY7vTZgeJxI8 PTSdDaUubS50rHGfUJdn Gn5vgNhgqMhmFA4vGARy sybnBJUcpM9iHULjmCCy qLmrHL3lJQQpouxz l579IjStENX3EBYiuKYs Z6QboA6tWeYeUWJxAXTl L8MnxIIaVCqrX565GBoq FuU1CWGlmlPsD9Pf KJNwbQawMsB7i2G4Ce0X f0ZefcelHJO2IUdoHBT0 VlVbBuPvXhR8W5LcApg3 YZRkwCjqFL7pQ7Bp UZKqkejjyihvvVZ5GKGa UBHzjI74wEWnDOiiKe8g t3R7i740DELfRHSuiU74 Ph9suNmtVLPwwZYK vL7jblccj3pyvdglYyHw AKSkZWq2VLw9DZTbtQlc OoMqXXM7NpA1RXA4iKWx zU4lwTrzczpolO1u Oyc+Z04ooL2zBTT1BXQ0 bogsVLIweiRtEG65GV68 P0WbMynmeTToxWM+PGRp bcDlqFfsDL2lIhQk g5zyu8KgPSvlL8OzSOMc COvkWeh7ZQRyBPZ7nNZ6 jU1tXNNaPJrwl4D0aGP9 R3YtodJihw9ok0pl SRSdAOokL23ldYSic9I4 ABHphVB1SEFueHjcUhWm qT43Xnk+QDNnsNxls8Xy Abtmx0yae9uzdQr8 IjMwJSIgdmFsaWduPSJ0 z1YlNp37A32hHMfqODJv DZMfYQPeOUJtfRxbta1z vD7oBv7+PGNvbCB3 kZX9bV1aRYAgLeB0RJgo O291ZlGeaSVbTybsk9xg z6rylNe3OiShDPSaauSo aEmjGOO1s6NrVm29 R10bKMzeDLKwLWXtBORc IJDpqTcygp7guT9vSk6+ ZC1mt2gihq00pD47iYL+ KCNjYOC3yXhqRRbw EPDjkV9iYVhgRnX2NYIv WlRulB76tQJcHSarTa3n lRvjzWnwPN7mEWOuhork w826UhLyz2ewHBRy hMIiMNvmSXF9Y86sk6V6 UUFfBLGkXWZ5pEO0uC5o bGlnbjogbGVmdDsgdmVy zOoyLZuxSDoxM688 IHRvcDsnPlBhdGllbnQg JxObJJf4I0RdEbx4XLFo gSdnWK5usSWuVQvcWf1l kYlhcHxcBK5vIETl ixxbu423YhJom5ejLINh sTAvJUkkEUO2U48pp2N8 FQHhJDVoZQM1bEM3rJ7s bGlnbjogbGVmdDsg syBrkCysWWhtOQfnI451 IHRvcDsnPkJpcnRoIERh dOI8MU17DF55zBNls0K9 dSJ4D5XrAERwlfts agbycAQ8JNPjMYJxzA80 Kn6qkAfdUe2dSRHgRMI0 LXShkXAhP2MsfV6yUjDk LHOeSSRhQ6NrsUKu CPaaX585XXtaUtU5CYPd ivMkG5VcHGVegFpbQvY5 g9H9Dq6QR7R8BG05HE85 sIXip9K2vLI8H8Db ZZIwgejziiajsPA1JFVq KHYrpL98Ho6dnJikNl7v KDAkHHF8FDUjtTOaE2Tr yG4uWfLzZGGiZXIv V8JlnPGnDWphI951TWiq GyT0YJOkmqOnC2MhYNPx qNtmFqM5c5S7Nt7WWNx6 QU10GG11dUFbk5A4 wID1D9ZqOUZcqkptkrpm zYW2HABpVNXgyT41Gj3x vJlkVn8cQYDmORL4YDRw zCMpY6UikN0pWcWq HGWlKJFdQ4SpmKXfWKdc L055BOosTsC7GIDznlPs B2PvDOLxtOydQwI2b3T5 Ps0ZOJSrDQ98OZH9 bQN7FH92WP69Y3GcYaaj dGFibGU+PHRhYmxlIHdp ZHRoPScxMDAlJyBzdHls RI5aCh2oIKHuWZXx zLdsrZPxSnYkq7mjVYJb OOsgVD8maKkxB0KgqBA3 CCIjo3q8Xl31Q90zF5Gq dXA+BNFjyBJ7mIG9 uV6jCzYwMmE8RZxhI642 OvWjxBLfMwtuo8fgm6vt sXr2ImH0AJJvphZgpXow SVM3f5LxRa59G18a IHdpZHRoPSIxNSUiIHZh zUmufw8owV9sJm3+PGNv zEB8pIR6qP8xQlJsKaA8 AOjqP434PgKepQPm Axqok8zjj1vnzIb7EeDk DPWqfiDyeUkgFBE1c9Qa Io69H6NorWfju0XnKfk0 zm04oMWqx3B8jWW2 K9WlTMSauebigLIalRmf JJ2dFNCrgxulESWihT8r BGPoF4v3NhIuLlO7ARlh W9IbwtP1DEUcaFUn NRswQRB1U69zt5C3RCNg SGAnVWR1uCV7fY4pcJbr bjogbGVmdDsgdmVydGlj HHxxXJfdE720SJXb hReqWZYxbM2hYXYdqTHs qFmpJW6sDVMjnoanXiIK TExJTlMsIEFMWVNTQSBS OUNUJId9W0HmCde8 VRTyfNzhPN7tbKEuUTcj Af3ahEjqpCrqQC8cIODo ucevGORxeQ3mOBQujWUg kGazEK5sQUHspwzc m879FwOdIPD5RGTdbMRk A4FssF9iQlZwAAXiVEOz C6HryNNdGSkzY192KOsd TvU8GHIwzqDbM6Hc UCImdBrcBqG7b1B9En5g VA3dYy4yWKg4MM02UL11 vSDmm9R7vZA0A2QsRIDk joqpzrjhrCN9FBTk QZVgxN68nRJkHGrbCa4t a1N8d631NPIcBCFiqX01 Oz9rgOhqOVEcyINUvH6e asuzk9hksalsUiKx GHMlUAv6QMq9LFAbfRjh QsZwOJJ3ZbZ1RLN2sMCa cI6yaFmcmkvflL7qMrb+ SpcyHAAvkuK2L9Pv Bwx0TAQpqGjqXN3fqFHh UNalGx7mhJmqxImiTF9o EECkzfdpKMWsxZ7nESVz tKIndExwWF2bBNEh fpjut197NqOpOCF4CAXq hREnB8LbrP6qBwJoYLWy WRUeT2RojZEcNPfoJ367 XEmcEqJ2VZCrbhPw J8WvUVFbzKzwPkB1d0R9 Mp8XZN3SFPJ7L4KgTge2 DRKvpGhnYM4ojWTnKYkd Gk3stLtjrGvzSY6k EUFotvguGVFrbG2mFCCz tUCnvGbgSR7zKSXyyows d114DnWkIAF9SSGmsGRp E6LuzZ8oJzIeDMUr VADsQ0XceRMfCQbdW221 TGwaTdL3OPYspqOpA4Mz GLLffOobDoY0g0U1Gl1U UDwvdGQ+TN92uq93 Z8UeEdljRzp5GKQpGFZ8 sMM1nU4hKOUsJJlng2K4 dXZ5Z5XgnwNrga6mn3fc YOTjIAyhV75ihMYu t1Q2JCZjxXY5SRQqjGbq HpPweR04Meo+PGNvbGdy u9NxGtgog4drn6jzkYj1 IjMwJSIgdmFsaWdu TJX9i6DlDw51X66iYNnm ZHRoPSIzMCUiIHZhbGln oz7veT8iOl3+PGNvbCB3 sLS9rE9lQaPqIzR5 PAkqI489SoUwpRHxYemp s4hxd6vhaXy0DyEaGZKr ekOugFbcFTT7n2EdLp85 I6RprAovn0ByLde6 ea17uEXlk6E2cIX6B0St EXVjzgvrsXWzwYjxTZ5x DKLoxkhmALCmrL4dLLCa L2q7ZuDdArS4MGyb R4QamaM1IRJulAOwZYOk gTSWxF5eiezie7tajgwj ReLdZWAlPMq5BFp8ESNr xLcvNkUfPBT8HlF4 KWX9jDIasO4esYinouij fD3kUej+DUq1b4ogoXSy JZ0mmRN0NG78MA47eZLc d7E3aLM8G3GdNZOg oqcwxjxgoQF1JTRhTSCh cF36Mz9osXxeRl5sBWWy PMB0ABAzbUEkC6JmaU1u AiBgWAUsKADzE6Pj qSDnRQkpM511YMmsNgJ3 KAYzbhWoW0YxMJDodJdz EzN1w7R5Bz9VXX40BF62 JP38sDUtx4P5yEK6 Q0ReOHFrmdgmbbkkxTV9 RQQzVOSdmV55Yl4zkOeg Vb1fJSUxRAX8PUBgoVTx C9XofO3pDjZqBFOa YNLyW6ImcQCkVHqlC580 HXizTbZ4TQIjdvWvV3Zs ZMQdwIlpWhH3d1J8Ga7P Dw23BH31CP45kKSk r8E5jEL7J5GnUSTdevtf kjisjIK5FRGpGVAnyJ73 Ec1bwXxkSq2hBAUnMTI9 AUCehCPmF7OamX6z EjBhPVMsOYLiY9SiqRUy NHtzD754LIvgZkS2JEYr byGfV6AyJMTufHxeViK3 f5F0Op7VAOaratl1 S3GfPtwecQT+PS54HFWb QM28tPLokCHsa9yqgCh0 XzXeGNClANQ8vUwnJTqh b9TpCYKcT09ahNRc c2U (more content not included)... [facility] Coding Summary HTMLBase 64 BudacojiPFa0nUb+PGhl YWQ+JH2XEOQeM57hkNJm sT9PG0bZCU1TJIQJBVFB VW0IZB5bsRE4RTkfT3Eb biAv RquhePZsLI21LMp0NEU8 fQjfEQsbbL0zjEIkF6c7 XuLjVM11cW36HWnbHAHn AyD8UnSwzliinERn J1lbSvFsqGRtWyw+PHRh YmxlIHdpZHRoPScxMDAl EoIijUjfBX4qPk4rWGXk LWNvbGxhcHNlOiBj n0znEFAnBGinVY4peExf G6RiqND6CRXco4e5Ev95 dHI+OXMwGRC5zAkkEOuq b686EiZtf4dmWRT8 zOKyDPaoLHW9B26ee6N2 CDGgUSYhIIO4oRY0iJ4z cPdnsqlkU4MayKIoTxC2 TRP1zANedW7ljDdq eampfQ2lKue+K22KCX7E ZOADIQ7GJov6N3IeFzbj dHI+GH47IFYtPO24gEFx hACfi7zbmTn4IbOn UPJiPWV7xAqdFYspy3Nh YHAvL04kqIHex1N1DOUb gCsudSPjEfCjuIU5rW6d JUxnxoyus2xcjikk Weupr3wlbg24xG65Z26e HQclJBWxHJC8GPNdYJLl cEsjmx4waS9wWl8+IDxj w4arq4qlfEn3GmJg ZGHxroYouQmaWNG0v1Lh Cx65Y9FvkQsry8HaYyf0 gc07aZRct8X8wGU9EIjf QYOgiK9mSAxhFiJ8 RVXvEhAqqJ57zTGsFDth Bg2zfJqviVvnMA2iGPTv spdnYEPfbQ7rOLRfxXLe lQrdUN4aGBZnadno r241GlWhBJB1SKVsoENt F7TkaJ9pVuEmQGXtOOOk N6WtzQBvUWtgH423SHvz TtM1FFYjxuPpO2Yq RFVysGtlUyF7y0C6Ns1T b2RfonveNZJ9RBnwWJU6 BmEuIrGiPaE5B8NrYlh7 YCNsfXneRR2jO6Rm TDXluilsiguocOY4WPEz WAXsuU37wDBwGJhkCd6a x4W6h766FRRuAAEfiR56 Bs1jxVvfZNWqvOIL yO9qkyqsl4mlyzgjFzLf JZGsMYp0ZWf4UATzoOas GbFwMEL2VwK2YBD3yOXe iQ0giFidyzjjgD6y Oyc+J56xnE0wZTU4RUV9 zablGXXjatJoAJ49YM31 P0YrEgpefKDrvZP+PGRp nlDpqZycAU1dFqAd o7jxd3QrONrnZ7CqBSDu KZpoVxt9YNBoVHZ0tOH2 sD3fTJTjCLeyw7K6aUM9 V7EgkbCxav7qh6xj JDTlIKnqU26noNFmr0Q4 RBTwqIP2LSFekRnnXbCs xI05Uyy+FXUcjRkwh0Ov Yxhjx1fuj7wrsVi0 IjMwJSIgdmFsaWduPSJ0 h0EdSs88V93yQYzwKXZb LNEsQUXlJNSnxUyvsi0h iF9sHx8+PGNvbCB3 jCS7tY3eZIAkKaH4WZii O513UxWrlEIfAhlaw5le m5cgxLo7NaPzWNIuixYr fJshWTR1e5ScYr35 X03yELbfSWLwTUEcRGXu IVPsbEoboe8ijK4iIz6+ EK4jr4kqbk44nC41sXX+ SENfXEG4cPeuABvn SBIugN7lBParFgD7EXFq BbEskC02qMUuUPgwAj8o wCkixDgpWQ0hQYBklhue t862PoVar2toERAj yUDaZBrjTLI2O08kt4J1 ETVjKVXiLWW9kAI0yW0q bGlnbjogbGVmdDsgdmVy pBulWIlhKSxlG646 IHRvcDsnPlBhdGllbnQg PgYnYAo6Q0RiVlz7CHPp qOcbLQ5qoFMpHQelRe2c sUzlmTtpND3kAMZz pwdlh595AsKya8icQHDp wRXjYJmsGPY7O10lc5H5 JPOpCSPePED6qNO8jO7y bGlnbjogbGVmdDsg xtDliNejSTkbXDwsQ541 IHRvcDsnPkJpcnRoIERh nJQ0CT46IS54mHZvs6F9 qJL5F0EqVJAkxhmm nskacUW2YGUbSIQztM52 Fe1esGmvEg1hIIRsFZK6 QOGbfMCdL4JfuP1vSlTp BHNmQXZxG4LxgVQg APjnU193ZWdvOqE0OHKx neQzN2RjBVLksOatXhI1 i9Y8Qw0GQ1I7BC25TG50 xBYfd9P3eYB9F6Wv BVIbfluetbfpdVG2ZPZu HRHccU28Do6rlVlsYb4m HRZdXGU8UZMpiBTuP0Og rR8eHxBjZGNiFBQo U4ZmmUSeMJdrX156BTjd UtQ7VXYmgoEqG9KrRWGo qAgbGjZ7c6L0Ms1FUIb7 AP76LI16mPVif1L6 rDU4C6UeRUUiaohuqril aJF8HZGyJIDmlO04Yd2w qOqnQb2tDJFrGJG0TUIi oQLaQ9WbpN0pDjXe VSWnYMJsO8TzwOBkZSeg Q109DTbcNbB3HWUjbyKg W1VuFPFwoSmhVrV3y7U6 Bb6HTFYvHC23OFV4 zSB9XK09ME42F2BnIerw dGFibGU+PHRhYmxlIHdp ZHRoPScxMDAlJyBzdHls XG1iQd0zSRDqDIXi vZrnfPVgErPir1qsJJMg SMhjDU2baOnvZ5EdeKZ9 FVBwi8v1Pg39S90tS1Ro dXA+ADHiiDX7lWU3 eR6yAeKgWoZ2MOebP024 LzKtpCEgSzksk3ejr1sl rDj8ClV5VJIcihHjpTbh IRT0j6LnTx25G72a IHdpZHRoPSIxNSUiIHZh jOuvyk9uwS5xYn0+PGNv uWG4yUM8jH5oStFaOyX6 FRvpH529RfMcyBPf Nzfyw2qtl8fzsUc3DmHf VLVfpjFyiXcbCBM2j4Cc Gi82S8ZhzDyko8BtNch2 uq81hRAzw7N9wSW4 V7UmYPEwvlmnjBAhwXuo BA6pWRFodxtbALJhoY1b YBVlT1y5UaPvWyP7KPjn C0NdzmY2BUGxvJLw PHauSKG8T19al8G0MRXk YLPnLZE2iGM3bX7jnUdj bjogbGVmdDsgdmVydGlj GUnkZCciM165YZIh kMwhYGQgjE6cVNYbeXRf zUlgTA2aIJSyytrgOfUP TExJTlMsIEFMWVNTQSBS ZMBSYPb0G2WqJgo8 IDKcgFsnQM2tkLNnDQxj Jv1uaAetiXmjGP4qBVZq wbkiDIAjgA0bYZOkcWYl jIwtOY7hHSAhtgvh q842XdDnDZY4HKEwrNIj N7JadM1eZcTdOPXxJABh N3KsnBFqPWiuW129DQij DkD0CUBibhBgB3Iu THMcsYxmHpQ5p5C2Bh4b UD1hLy2kQFa0RV98BD13 cZFvz1G4vGB2R3OyZIAz earrfnrxeKF9XODb SNWtmJ55tHBrOHyqRy5z j2D0k723ZULtDNNjsT61 Fs4dvRsiUZNvqXYExL9z xrkmw7vyvoxcJpEs JLKkSYa6AXh9CRLifUmq PuPuEZR2SxF5GTK5kKLx jM4ftFaljdjmyX6iCxr+ KilyFXAiyhK9W9Ks Gjj0IJGlgLgtKH6neNJi VRvyMv3fyNevsIkkKJ6h OPVrfjrzIZPqyJ7rMOBa oFMweGryQS7eGYUt xvnrx992WvMbAIR8SSBi fFRuQ4OdxM5nZpXbNFZq YUCgA6IquNSxGSfzO156 ZNarGpX3HRDlbuXo G8QySZGszGveEcL3u1O2 Qo7PHE8VKSO4O9ErCvc4 WDOnwVobKD0rwSXlLIqt Tl2fnImyjHmiBL0z UILiizziRSNtdX1kNAUu hYBkyLmjIY4sBNXtwugb a170WdXdXUG0FQHgcJUh Y6UrqY2iHbDkHNKf RIWqS1NhtTCnEMflY026 AEfjHkJ2FZAgsrYuO8Hb WKDqgSvgPmI3h2K6Qs7R uMUyG2GiY1d8O6Bk PjwvdHI+KW26YGDzJY49 fBGurKJvl7ttkEw5XdWn EXQpEAR2uYmyRQkib3Xw ULKmW76fyZOwv6P6 IGNvbGxhcHNlOyBlbXB0 rS1iDHwwuqlii1ddbniq Jimup4kyrm61uF12A60w IHdpZHRoPSIzMCUi AVJjkJnulo9euE1yAn6+ LERxkVQ3jAH4gP3mYpPd BeN5CTtgO734PtUxeFHf Jbwnp3gqv3yyeFa8 IjIwJSIgdmFsaWduPSJ0 i6UxTc92G14vIBahTCPp RJBeYAMxJQVkxTqtat9g aM2kPa5+PZ5hq7me ia53aG42cTN+PHRkIHN0 fIzbWZorFFVwdL7bOYsx CdO0YKOfIzMgeR94zRMw GLukYk3kbXrbqSmc VU1sTOZvcldob369RzGx l9jqXSTecXQuIAzrIBJ4 M65km4X9SWYpHGWvPRL9 yTC3uB3bfWyajjul bGVmdDsgdmVydGljYWwt RTiwR101XPDwfBrhAxVh tTMoU9ngdkISXJ7jGcxb dGQ+UDVxLBG9mGbr NYkdDRRtoU4zVJUmS5a7 ItNuEsM6NPlfI3XycaL5 AUZerOZdQPZrdGXIrA9d ywidy6gdcqaaWhJw DXExGNy0LSd2TKGczTgw TvYlVZJ2UfL7QMJ4jCSg aD0lgUrykuibqQ3sUyk+ RklOOjwvdGQ+PHRk JCI4fWztBSmiBEAzuL5g FDSaR8r7JcSbEiX5SVtc Z4OgufC2OOYojYLfLJCh gQGCaS9gecrrv2ad emrqGkXkOUWwESp4MRj8 KSHsfXueKrOeOKO4GwY4 LRA1mJSmuE8hxSiytmno wY8dJeu+TVJOOjwv dGQ+CWLeKAV6bMngIGuu XPVonL7nZGBoE6i7GoBd ZmY4TJjfO3KaxuP0SKXd sMMpRNHcnAUUgA8t tamxt5epfzrfDnHrYVBg OSj4JOm0FBLpnGsmYvVw YCQ6QpP4IBE3tZKkdV2j hYyuriaaaH0sEet+ CJN6YDS4HP91RV81A3Fs PjwvdGFibGU+PHRhYmxl IHdpZHRoPScxMDAlJyBz tWgvZC6lZg2rBETw LWN (more content not included)... Normal [facility] C Urineon 03-11-2022 C Urine Urine Culture ordered as a result of parameters set on specific urine dip and urine microsopic results. >3 Organisms Consistent with Contamination Recollection suggested. Normal [facility] Comment on above: Performed By: #### 1 7967847, 04265934, 1288391, 8399282182, 46540119, 9320018, 4878355073, 2983476520, 8495613051, 2430696 #### [facility] (DEFAULT) [address] [place] [address] 12324 .Auto Diff 03-09-2022 Auto [place] % 8 % Normal 11-09 [facility] Comment on above: Performed By: #### 1 1874542, 08042130, 5210927, 1275515719, 12400798, 0363067, 2498781015, 5864006858, 4848157438, 5448100 #### [facility] (DEFAULT) [address] [place] [address] 99992 Baso Abs# 0.0 x10 Normal 0.0-0.2 [facility] Comment on above: Performed By: #### 1 7063730, 22138261, 4377829, 0305564664, 31703767, 7114962, 7864494280, 5746189292, 8935063929, 1114085 #### [facility] (DEFAULT) [address] [place] [address] 27358 Basophils/100 WBC (Bld) 0.3 % Normal 0.2-2.0 [facility] Comment on above: Performed By: #### 1 8709992, 89543576, 8591446, 6432072459, 42091869, 7215671, 2937261988, 4609071372, 3343379469, 7911960 #### [facility] (DEFAULT) [address] [place] [address] 55936 Eos Abs# 0.1 x10 Normal 0.0-0.4 [facility] Comment on above: Performed By: #### 1 6211476, 41722706, 9211980, 2308658994, 33607374, 0444886, 5953418745, 0218180685, 7659530253, 6954914 #### [facility] (DEFAULT) [address] [place] [address] 54309 Eosinophils/100 WBC (Bld) 1.0 % Normal 0.9-4.0 [facility] Comment on above: Performed By: #### 1 7741641, 39206857, 5421471, 2325296305, 69235372, 6948901, 2907380038, 6486353233, 8858616727, 4865628 #### [facility] (DEFAULT) [address] [place] [address] 28803 Lymph Abs# 2.0 x10 Normal 1.3-2.9 [facility] Comment on above: Performed By: #### 1 5564448, 39921012, 2521536, 9716312981, 83641059, 6264231, 5851387124, 7402432282, 8213488044, 0755276 #### [facility] (DEFAULT) [address] [place] [address] 62038 Lymphocytes/100 WBC (Bld) 35 % Normal 14-48 [facility] Comment on above: Performed By: #### 1 1549659, 90697549, 5857423, 6472980786, 58305324, 6698353, 1017873863, 9679445526, 4027221678, 5785088 #### [facility] (DEFAULT) [address] [place] [address] [place] Abs# 0.5 x10 Normal 0.0-0.8 [facility] Comment on above: Performed By: #### 1 2393639, 81737411, 9460449, 8104061327, 83561178, 5094362, 6629520586, 9901940712, 1492038126, 5401726 #### [facility] (DEFAULT) [address] [place] [address] Neut Abs# 3.2 x10 Normal 1.5-9.2 [facility] Comment on above: Performed By: #### 1 5058046, 16211062, 6412066, 2141897389, 27981313, 8254527, 3274773014, 4814510095, 5767616722, 2469350 #### [facility] (DEFAULT) [address] [place] [address] Neutrophils/100 WBC (Bld) 55 % Normal 44-88 [facility] Comment on above: Performed By: #### 1 7466015, 65905616, 8976214, 0877059581, 50723425, 9619559, 2050442987, 4067594531, 9030856000, 6570868 #### [facility] (DEFAULT) [address] [place] [address] ABORhon 03-09-2022 ABO and Rh group Nom (Bld) Hx Check: Not Found Anti-A: 4+ Anti-B: 0 Anti-D: 4+ DCon: 0 A1: mf+ B: 4+ ABORh Interp: A POS Invalid Interpretation Code [facility] Comment on above: Performed By: #### 1 5217915, 65935911, 5148938, 1833560823, 97646350, 9208061, 8527454418, 2252536956, 1136381613, 9263591 #### [facility] (DEFAULT) [address] [place] [address] ABORh Retypeon 03-09-2022 ABO and Rh group Nom (Bld) Ordered by Discern. Anti-A: 4+ Anti-B: 0 Anti-D: 4+ DCon: 0 A1: mf+ B: 4+ ABORh Retype: A POS Invalid Interpretation Code [facility] Comment on above: Performed By: #### 1 4289192, 02942311, 6192104, 5671692243, 58506840, 4469441, 8716454485, 2935172989, 4373281816, 0475344 ####[facility] (DEFAULT)[address] [place] [address] 81639 CBC w/ Auto Diffon Erythrocyte distribution width (RBC) [Ratio] 13.3 % Normal 11.5-15.0 [facility] Comment on above: Performed By: #### 1 8512414, 94342574, 0912544, 3436224277, 36875800, 9924644, 1962569763, 7759097988, 0672998666, 2437433 #### [facility] (DEFAULT) [address] [place] [address] 33335 Hematocrit (Bld) [Volume fraction] 43.5 % High 33.7-40.4 [facility] Comment on above: Performed By: #### 1 1312792, 69095136, 9133958, 5537113536, 76494421, 9934698, 3069894486, 1151984828, 1149146445, 8346911 #### [facility] (DEFAULT) [address] [place] [address] 53342 Hemoglobin (Bld) [Mass/Vol] 14.1 g/dL Normal 11.3-15.9 [facility] Comment on above: Performed By: #### 1 1132860, 22920660, 8776095, 1517937962, 78363026, 2030196, 4695661584, 9970958112, 1254710261, 4348068 #### [facility] (DEFAULT) [address] [place] [address] 49279 Instr WBC 5.7 x10 Invalid Interpretation Code [facility] Comment on above: Performed By: #### 1 3787448, 56989128, 0927894, 2781896039, 78400436, 6752696, 1306507089, 7665874837, 4683618310, 0486852 #### [facility] (DEFAULT) [address] [place] [address] 73956 Man Diff? Auto Normal [facility] Comment on above: Performed By: #### 1 7062958, 18749192, 9274823, 2649370765, 64982314, 8152256, 4895231847, 0690447156, 2514707385, 7066832 #### [facility] (DEFAULT) [address] [place] [address] 76733 MCH (RBC) [Entitic mass] 28 pg Normal 24-34 [facility] Comment on above: Performed By: #### 1 6104509, 98297101, 8964460, 1089200529, 72538610, 6507038, 3296347865, 0634638849, 2664765168, 4675955 #### [facility] (DEFAULT) [address] [place] [address] 85709 MCHC (RBC) [Mass/Vol] 32 g/dL Normal 26-37 [facility] Comment on above: Performed By: #### 1 6769458, 97414910, 5241452, 8383428319, 99091927, 1591176, 5621399960, 9024786399, 1543230268, 4577682 #### [facility] (DEFAULT) [address] [place] [address] 68060 MCV (RBC) [Entitic vol] 86 fL Normal 81-100 [facility] Comment on above: Performed By: #### 1 4581516, 10327358, 8085641, 0399997508, 37803653, 6288369, 3385540168, 8197865922, 4196296537, 9595017 #### [facility] (DEFAULT) [address] [place] [address] 87765 Platelet 324 x10 Normal 138-427 [facility] Comment on above: Performed By: #### 1 4937913, 44427207, 3522267, 9121397869, 94769143, 0496030, 6768711182, 0435548669, 2267949119, 3200196 #### [facility] (DEFAULT) [address] [place] [address] Platelet mean volume (Bld) [Entitic vol] 9.8 fL Normal 6.3-10.2 [facility] Comment on above: Performed By: #### 1 5810872, 75618932, 4172102, 0238197377, 82182596, 0141951, 2488282950, 0426250436, 7469398697, 6233780 #### [facility] (DEFAULT) [address] [place] [address] RBC 5.07 x10 Normal 3.70-5.30 [facility] Comment on above: Performed By: #### 1 7795360, 93034387, 2572542, 7110716691, 22231967, 7056662, 5732746098, 3221878942, 8219969744, 1167938 #### [facility] (DEFAULT) [address] [place] [address] 43535 WBC 5.7 x10 Normal 3.5-10.5 [facility] Comment on above: Performed By: #### 1 8599412, 46734977, 8325420, 0467184422, 16025715, 6857257, 3597597090, 9796405299, 4400310040, 7068102 #### [facility] (DEFAULT) [address] [place] [address] 06485 [facility] Standardon 03-09-2022 eGFR Non AA >60 Invalid Interpretation Code [facility] Comment on above: Performed By: #### 1 2564229, 39494006, 2215112, 8494531135, 02681701, 8105165, 3575849653, 0130377902, 2826256351, 2732781 #### [facility] (DEFAULT) [address] [place] [address] 72929 eGFR AA >60 Invalid Interpretation Code [facility] Comment on above: Result Comment: [employer] susie Kidney disease could be indicated at eGFRs of less than 60 ml/min/1.73m2. Kidney Failure is indicated at less than 15 ml/min/1.73m2 Performed By: #### 1 8510380, 79396827, 1564298, 6688766112, 01761475, 6533392, 2696358374, 7618333969, 1245830627, 3237054 #### [facility] (DEFAULT) [address] [place] [address] Albumin [Mass/Vol] 4.5 g/dL Normal 3.5-5.0 [facility] Comment on above: Performed By: #### 1 0248594, 76167708, 9798726, 4277453211, 32582779, 1046306, 2962279416, 6688565900, 8970468938, 1549162 #### [facility] (DEFAULT) [address] [place] [address] 60086 Albumin/Globulin [Mass ratio] 1.2 {ratio} Low 1.4-2.6 [facility] Comment on above: Performed By: #### 1 7962918, 43331943, 8340561, 4197569524, 90824556, 2754045, 4212319256, 5277847829, 0216871356, 5835132 #### [facility] (DEFAULT) [address] [place] [address] 17167 Alk Phos 52 IU/L Normal 32-91 [facility] Comment on above: Performed By: #### 1 8810664, 31711388, 0105770, 6600748839, 56364198, 0983496, 3438130380, 5107288515, 7649664628, 5660756 #### [facility] (DEFAULT) [address] [place] [address] 31518 ALT [Catalytic activity/Vol] 37.0 U/L Normal 14.0-54.0 [facility] Comment on above: Performed By: #### 1 9852423, 35677439, 0428698, 3695207525, 29852134, 3004032, 6829117984, 9205823216, 2452276701, 6214480 #### [facility] (DEFAULT) [address] [place] [address] 53931 Anion gap [Moles/Vol] 18.0 mmol/L Normal 5.0-19.0 [facility] Comment on above: Performed By: #### 1 3912116, 53068217, 2412530, 9355926050, 98484639, 9449645, 1711479603, 5559457279, 6698471518, 5627027 #### [facility] (DEFAULT) [address] [place] [address] 72413 AST [Catalytic activity/Vol] 29 U/L Normal 15-41 [facility] Comment on above: Performed By: #### 1 6426783, 14808847, 1094445, 9534245850, 61189987, 1743684, 7731090122, 0181356520, 5082455004, 8638329 #### [facility] (DEFAULT) [address] [place] [address] 27406 Bili Total 0.7 mg/dL Normal 0.3-1.2 [facility] Comment on above: Performed By: #### 1 1208531, 47072173, 8450768, 6325587757, 99691857, 6962459, 5836762333, 1905413531, 6639676579, 3762042 #### [facility] (DEFAULT) [address] [place] [address] 19919 Calcium [Mass/Vol] 9.4 mg/dL Normal 8.9-10.3 [facility] Comment on above: Performed By: #### 1 0293846, 83928505, 8603478, 4999219901, 07155134, 7040611, 4206661356, 6689591451, 6874409482, 3050507 #### [facility] (DEFAULT) [address] [place] [address] 66151 Chloride [Moles/Vol] 100 mmol/L Low 101-111 [facility] Comment on above: Performed By: #### 1 0474945, 65056206, 1058811, 6015421537, 19684124, 9863962, 4238907189, 2586005267, 4520643520, 1337813 #### [facility] (DEFAULT) [address] [place] [address] 51024 CO2 [Moles/Vol] 24 mmol/L Normal 21-32 [facility] Comment on above: Performed By: #### 1 0128684, 74435871, 7305635, 4830900141, 55174207, 2825684, 7498742270, 9532126012, 6997855030, 3334449 #### [facility] (DEFAULT) [address] [place] [address] 84038 Creatinine [Mass/Vol] 0.75 mg/dL Normal 0.60-1.30 [facility] Comment on above: Performed By: #### 1 3046211, 61156440, 9573169, 2203913290, 62209398, 0853348, 0346563000, 9974778502, 1062906062, 0843726 #### [facility] (DEFAULT) [address] [place] [address] 80488 Globulin (S) [Mass/Vol] 3.9 g/dL Normal 1.5-4.3 [facility] Comment on above: Performed By: #### 1 1275323, 24476750, 9357465, 6637308652, 82876505, 1663949, 5614700036, 9164370500, 9660256938, 4714672 #### [facility] (DEFAULT) [address] [place] [address] 07637 Glucose [Mass/Vol] 98.0 mg/dL Normal 74.0-118.0 [facility] Comment on above: Performed By: #### 1 7134372, 72084084, 2292558, 8060250306, 09553817, 2020073, 3466312438, 9172019212, 7136187477, 0555667 #### [facility] (DEFAULT) [address] [place] [address] 52728 Osmolality 274 mOsm/L Invalid Interpretation Code [facility] Comment on above: Performed By: #### 1 2661526, 32255766, 9642778, 5327458540, 76378022, 1808231, 5193962404, 4963884750, 9129182724, 6766642 #### [facility] (DEFAULT) [address] [place] [address] 31651 Potassium [Moles/Vol] 3.5 mmol/L Low 3.6-5.1 [facility] Comment on above: Performed By: #### 1 0969662, 11059744, 1700859, 7176563947, 25041568, 9754406, 0395212594, 8299567329, 9077346039, 0888665 #### [facility] (DEFAULT) [address] [place] [address] 38754 Protein [Mass/Vol] 8.4 g/dL High 6.5-8.1 [facility] Comment on above: Performed By: #### 1 2213049, 16232937, 1964877, 3107549434, 69825422, 2052474, 5659224446, 4566319903, 8280487326, 9607159 #### [facility] (DEFAULT) [address] [place] [address] 82753 Sodium [Moles/Vol] 138.0 mmol/L Normal 136.0-144.0 [facility] Comment on above: Performed By: #### 1 5156105, 22643555, 6480709, 4708907440, 53261887, 0284320, 8662449665, 7059607575, 6035080833, 6557827 #### [facility] (DEFAULT) [address] [place] [address] 75184 Urea nitrogen [Mass/Vol] 7 mg/dL Low 8-26 [facility] Comment on above: Performed By: #### 1 9271067, 14814904, 4851852, 5614887965, 47032274, 7506801, 1441991230, 4043137020, 1137805113, 8834177 #### [facility] (DEFAULT) [address] [place] [address] 09887 Urea nitrogen/Creatinine [Mass ratio] 9.0 mg/mg Normal 4.6-16.2 [facility] Comment on above: Performed By: #### 1 9993150, 05218121, 4803337, 7359145627, 21089536, 4367567, 6658347752, 2192236539, 9416942110, 6509481 #### [facility] (DEFAULT) [address] [place] [address] ED Clinical Summaryon 2021 ED Clinical Summary [facility] - Emergency Department [address] [place] [address] ED Clinical Summary PERSON INFORMATION Name: DIANE JOYCE Age: 26 Years Sex: FEMALE : 1995 MRN: Acct#: Visit Reason: Vaginal bleeding - < 20 wks ; BLEEDING, Arrival: 03/09/2022 15:56:59 Discharge: 03/09/2022 18:28:00 LOS: 000 02:32 Check In: 03/09/2022 15:56:59 Checkout:03/09/2022 18:28:00 Address: [address] [place] [address] PCP: Provider, None PROVIDER INFORMATION Provider Role [...] or bladder. States that she follows with departmental secretary in [place] Dr. Min, contacted his office and they [...] intact, SARINA: -Sclera conjunctiva: Unremarkable. NECK: -Supple (gble-pa-nlzcp): non-tender. CARD: -Rate and rhythm: Regular -Edema: [...] the patient recommended close follow-up with her departmental secretary and outpatient beta hCG. In the meantime no strenuous ac (more content not included)... Normal [facility] ED Note - Physicianon 2021 ED Note [...] or bladder. States that she follows with departmental secretary in [place] Dr. Min, contacted his office and they [...] intact, SARINA: -Sclera conjunctiva: Unremarkable. NECK: -Supple (rftj-um-bxaqm): non-tender. CARD: -Rate and rhythm: Regular -Edema: [...] the patient recommended close follow-up with her departmental secretary and outpatient beta hCG. In the meantime no strenuous activity, sexual activity if having any worsening issues I recommended he return to the emergency department or going directly to departmental secretary. Patient indicated she understood was in agreement. [...] AA >60 (more content not included)... Normal [facility] ED Note-Nursingon 03-09-2022 Beta HCG ( test) Ql (U) Patient arrives with c/o vaginal bleeding during . States she took a at home test a week ago and estimates being 5 to 6 weeks along. Patient has some mild cramping yesterday 11/07 at has since went away and light vaginal bleeding today. This is the patients second , 1 live . Normal [facility] ED Patient Summaryon 022 ED Patient Summary [facility] - Emergency Department [address] [place] [id number] PATIENT DISCHARGE INSTRUCTIONS Patient Information Name: DIANE [...] (N93.9) Vaginal bleeding - < 20 wks ([id number]) Prescription Information: If you have been given a prescription for narcotics, seek immediate medical attention if you have any difficulty breathing or any sudden status changes such as confusion and sleepiness. If you or anyone you know is experiencing suicidal thoughts, mental health, alcohol and/or drug addiction problems; contact the [facility] 21/05 Crisis Hotline -text 4hope to [...] documents With: Address: When: Follow-up with your departmental secretary for reevaluation next few days. Within 1 to 2 days Comments: Follow-up with departmental secretary for reevaluation next few days for reevaluation and outpatient quantitative hCG. Return immediately for any worsening issues such as increasing abdominal pains, increasing vaginal bleeding, fevers, or any other problems. 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 It is important for you to follow up with a doctor, nurse practitioner, or physician?s faculty research assistant for ongoing care. If your symptoms [...] so we can reach you if necessary. [facility] Emergency Department has provided you with a complete list of medications post discharge. Please inform your barrel ribs solderer/provider of your visit and for further instruction [...] The sec (more content not included)... Normal [facility] Extra Green 03-09-2022 Tube Collected Yes Invalid Interpretation Code [facility] Comment on above: Performed By: #### 1 [id number], [id number], [id number], [id number], [id number], [id number], [id number], [id number], [id number] #### [facility] (DEFAULT) [address] [place] [address] PT/PTTon 03-09-2022 INR Coag (PPP) [Relative time] 0.95 {INR} Normal 0.91-1.11 [facility] Comment on above: Performed By: #### 1 [id number], [id number], [id number], [id number], [id number], [id number], [id number], [id number], [id number], [id number] #### [facility] (DEFAULT) [address] [place] [address] PT 10.3 second(s) Normal 9.7-11.8 [facility] Comment on above: Performed By: #### 1 [id number], [id number], [id number], [id number], [id number], [id number], [id number], [id number], [id number], [id number] #### [facility] (DEFAULT) [address] [place] [address] PTT 34 second(s) Normal 25-35 [facility] Comment on above: Performed By: #### 1 [id number], [id number], [id number], [id number], [id number], [id number], [id number], [id number], [id number], [id number] #### [facility] (DEFAULT) [address] [place] [address] RhIG.on 03-09-2022 RhIG. No. Vials RhI RhIG Candidate?: No Date to Give: [id number] RhIG Status: RhIG Ready Normal [facility] Comment on above: Performed By: #### 1 [id number], [id number], [id number], [id number], [id number], [id number], [id number], [id number], [id number], [id number] ####[facility] (DEFAULT)[address] [place] [address] UA Cgnio0xl 03-09-2022 UA Amorph. 1+ [facility] Comment on above: Order Comment: Urina lysis Microscopic order added on by Discern Expert Rules system. Performed By: #### 5 [id number], [id number], [id number] ####[facility] (DEFAULT)[address] [place] [address] UA Bacteria 2+ [facility] Comment on above: Order Comment: Urina lysis Microscopic order added on by Discern Expert Rules system. Performed By: #### 5 [id number], [id number], [id number] ####[facility] (DEFAULT)[address] [place] [address] UA Mucous 3+ [facility] Comment on above: Order Comment: Urina lysis Microscopic order added on by Discern Expert Rules system. Performed By: #### 5 [id number], [id number], [id number] ####[facility] (DEFAULT)[address] [place] [address] UA RBC >100 [facility] Comment on above: Order Comment: Urina lysis Microscopic order added on by Discern Expert Rules system. Performed By: #### 5 [id number], [id number], [id number] ####[facility] (DEFAULT)[address] [place] [address] UA [facility] Comment on above: Order Comment: Urina lysis Microscopic order added on by Discern Expert Rules system. Result Comment: DMITRY VERGARA RN IN ER. RUN UNINALYSIS AND CULTURE ON THIS SPECIMEN. NO RECOLLECT. Performed By: #### 5 [id number], [id number], [id number] ####[facility] (DEFAULT)[address] [place] [address] UA WBC 3-5 [facility] Comment on above: Order Comment: Urina lysis Microscopic order added on by Discern Expert Rules system. Performed By: #### 5 [id number], [id number], [id number] ####[facility] (DEFAULT)[address] [place] [address] UA w Culture if Ind Standard on 03-09-2022 Breakpoint UA [facility] Comment on above: Performed By: #### 1 [id number], 52364045, 8413905, 4049448143, 23119987, 5828004, 5845694038, 5596612903, 7558650401, 9028759 #### [facility] (DEFAULT) [address] [place] [address] Color (U) Yellow Normal [facility] Comment on above: Performed By: #### 1 [id number], 95754031, 9385401, 7098848984, 27786870, 9744987, 4527305229, 8404599701, 6727176506, 7015934 #### [facility] (DEFAULT) [address] [place] [address] Culture? Indicated Invalid Interpretation Code [facility] Comment on above: Result Comment: Resu lt created by rule GL_MAGR_ADD_UA_CULT Result created by rule GL_MAGR_ADD_UA_CULT Result created by rule GL_MAGR_ADD_UA_CULT1 Result created by rule GL_MAGR_ADD_UA_CULT Performed By: #### 1 [id number], 67223875, 1540876, 5875631046, 96289079, 0048818, 5906958193, 4930548853, 0078255254, 0103322 #### [facility] (DEFAULT) [address] [place], [place] [id number] Glucose (U) [Mass/Vol] Negative [facility] Comment on above: Performed By: #### 1 8554456, 87115212, 7064947, 6610404632, 61401017, 3016652, 1672522721, 2577851762, 7108517552, 4513767 #### [facility] (DEFAULT) [address] [place] [address] Ketones Ql (U) 40 Normal [facility] Comment on above: Performed By: #### 1 [id number], 54639800, 6845580, 6468851847, 32118507, 5111718, 7344097104, 9946214540, 6203286772, 8211455 #### [facility] (DEFAULT) [address] [place] [address] Micro? Indicated Invalid Interpretation Code [facility] Comment on above: Result Comment: Resu lt created by rule GL_MAGR_ADD_UA_MICRO Performed By: #### 1 [id number], 77480110, 2884302, 0160992260, 73558593, 7141615, 2477507016, 8276581549, 1826111447, 0496688 #### [facility] (DEFAULT) [address] [place] [address] UA Bilirubin Negative Normal [facility] Comment on above: Performed By: #### 1 8645454, 84082132, 5150740, 3163656225, 84572669, 9286485, 5666294257, 6191523450, 3078702150, 3677537 #### [facility] (DEFAULT) [address] [place] [address] UA Blood LARGE Abnormal NEGATIVE [facility] Comment on above: Performed By: #### 1 6065080, 72321291, 5208509, 6899752321, 53915959, 1671017, 7009465237, 6206776013, 7722727030, 5488720 #### [facility] (DEFAULT) [address] [place] [address] UA Clarity SL CLOUDY Abnormal CLEAR [facility] Comment on above: Performed By: #### 1 2521265, 40868016, 5815407, 6458984568, 88967561, 9539573, 1906521271, 3298920909, 3662057702, 8731409 #### [facility] (DEFAULT) [address] [place] [address] UA Leuk Est TRACE Abnormal NEGATIVE [facility] Comment on above: Performed By: #### 1 3427452, 08248193, 0043406, 8960697145, 42473359, 9716091, 2646049975, 9761335616, 4423601248, 3949395 #### [facility] (DEFAULT) [address] [place] [address] UA Nitrite Negative Normal NEGATIVE [facility] Comment on above: Performed By: #### 1 0016052, 34399386, 2197486, 8519305626, 48496945, 5336005, 8470810691, 4275174931, 4983940132, 1046595 #### [facility] (DEFAULT) [address] [place] [address] UA pH 6.5 Normal 5-8 [facility] Comment on above: Performed By: #### 1 3049058, 93138661, 6885557, 4240537618, 86500282, 7167113, 8687324189, 8125881163, 0489214506, 9240258 #### [facility] (DEFAULT) [address] [place] [address] UA Protein Negative Normal NEGATIVE [facility] Comment on above: Performed By: #### 1 1360758, 32476604, 5348969, 5198572131, 02165792, 0255808, 7989243002, 4267417761, 3973863033, 9588555 #### [facility] (DEFAULT) [address] [place] [address] UA Spec Grav 1.015 Normal 1.001-1.035 [facility] Comment on above: Performed By: #### 1 6891832, 28308478, 1731585, 1629024281, 83683580, 2736833, 7954597311, 0075974141, 3975719715, 1795783 #### [facility] (DEFAULT) [address] [place] [address] UA Urobilinogen 0.2 mg/dL Normal 0.2-1.0 [facility] Comment on above: Performed By: #### 1 2348492, 43416512, 1414601, 6081204988, 22612815, 7578610, 4973495790, 1493996466, 9521928406, 9849170 #### [facility] (DEFAULT) [address] [place] [address] Urine Source Clean Catch [facility] Comment on above: Performed By: #### 1 9084837, 71913826, 5853908, 4474681057, 31967758, 7521194, 4208451107, 0192758602, 3034163313, 6271468 #### [facility] (DEFAULT) [address] [place] [address] US 1st Trimesteron 03-09-2022 US 1st Trimester [...] Sebastian Guzman 03/09/22 6:10 pm Technologist: PM [facility] US Transvaginalon 03-09-2022 US Transvaginal EXAM: US [...] Guzman 03/09/22 6:10 pm Technologist: PM Normal [facility] hCG Quantitativeon 2 hCG Quantitative 7.1 mIU/mL High 0.0-0.6 [facility] Comment on above: Result Comment: Post -Menopausal Reference Range is: 0.1-11.6 mIU/mL Performed By: #### 1 5568074, 86602125, 6951595, 7796261711, 42976720, 0587136, 5535330253, 6551149650, 0436128577, 0826351 #### [facility] (DEFAULT) [address] [place] [address] Vital Signs Date Time Vital Sign Value Performing Clinician Facility 12-13-2023 15:00-0500 Body mass index (BMI) [Ratio] 46.69 kg/m2 [facility] Nurse [facility] 12-13-2023 15:00-0500 Body weight 123.38 kg [facility] Nurse [facility] 12-13-2023 15:00-0500 Diastolic blood pressure 78 mm[Hg] [facility] Nurse [facility] 12-13-2023 15:00-0500 Systolic blood pressure 128 mm[Hg] [facility] 05-15-2023 18:30-0400 Body height 161.29 cm Linsey Witt Other [facility] Other 05-15-2023 18:30-0400 Body mass index (BMI) [Ratio] 43.41 kg/m2 Linsey Eduar Other [facility] Other 05-15-2023 18:30-0400 Body temperature 99.2 [degF] Linsey Eduar Other [facility] Other 05-15-2023 18:30-0400 Body weight 112.95 kg Linsey Eduar Other [facility] Other 05-15-2023 18:30-0400 Respiratory rate 18 /min Linsey Witt Other [facility] Other 05-15-2023 18:30-0400 SaO2% (BldA) [Mass fraction] 99 % Linsey Witt Other [facility] Other 05-09-2023 11:00-0400 Body height 161.29 cm Gissel Santana Other [facility] Other 05-09-2023 11:00-0400 Body mass index (BMI) [Ratio] 43.59 kg/m2 Gissel Santana Other [facility] Other 05-09-2023 11:00-0400 Body weight 113.4 kg Gissel Santana Other [facility] Other 05-09-2023 11:00-0400 Diastolic blood pressure 83 mm[Hg] Gissel Santana Other [facility] Other 05-09-2023 11:00-0400 Systolic blood pressure 119 mm[Hg] Gissel Santana Other [facility] Other 04-12-2023 09:00-0400 Body height 161.29 cm Gissel Santana Other [facility] Other 04-12-2023 09:00-0400 Body mass index (BMI) [Ratio] 43.59 kg/m2 Gissel Santana Other [facility] Other 04-12-2023 09:00-0400 Body weight 113.4 kg Gissel Santana Other [facility] Other 04-12-2023 09:00-0400 Diastolic blood pressure 88 mm[Hg] Gissel Santana Other [facility] Other 04-12-2023 09:00-0400 Systolic blood pressure 129 mm[Hg] Gissel Santana Other [facility] Other 10-11-2022 02:06-0500 Body weight 111.[address] ESTELLA MIN . [facility] Comment on above: Performed By: #### AFPMAT #### [facility] [address] [place] [address] Dr. 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 BRICK DROPPER Linsey Witt Work Phone: [facility] [place] Work Phone: Start: 05-15-2023 End: 05-15-2023 ambulatory BRICK DROPPER Linsey Wtit Work Phone: [facility] Work Phone: Start: 05-15-2023 Office outpatient vi sit 25 minutes Linsey Witt [facility] Start: 05-09-2023 End: 05-09-2023 ambulatory Gissel Santana Other [facility] Other Start: 05-09-2023 Office outpatient vi sit 15 minutes [facility] Start: 04-12-2023 End: 04-12-2023 ambulatory Gissel Santana Other [facility] Other Start: 04-12-2023 Encounter for genera l adult medical examination without abnormal findings Gissel [facility] Start: 04-12-2023 Periodic preventive med est patient 18-39 yrs Gissel [facility] Start: 02-15-[address] ESTELLA MIN [...] encounter procedure 01/14/2024 8:30 AM EDT Routine [facility] [address] [place] [id number] Estella Min, DO [address] [place] [address] [facility] Start: 12-13-2023 End: 12-13-2024 ABO/Rh ABO/Rh Lab Routine Missed menses Expected: 12/13/2023 (Approximate), Expires: 12/13/2024 [facility] Comment on above: Expected: 12/13/2023 (Approximate), Expires: 12/13/2024 Start: 12-13-2023 End: 12-13-2024 Blood type and Indirect antibody screen panel - Blood Type and screen Lab Routine Missed menses Expected: 12/13/2023 (Approximate), Expires: 12/13/2024 [facility] Work Phone: Comment on above: Expected: 12/13/2023 (Approximate), Expires: 12/13/2024 Start: 12-13-2023 End: 12-13-2024 Thyroid panel with tsh Thyroid panel with tsh Lab Routine Missed menses Expected: 12/13/2023 (Approximate), Expires: 12/13/2024 [facility] Comment on above: Expected: 12/13/2023 (Approximate), Expires: 12/13/2024 Start: 12-13-2023 End: 12-13-2024 US Pelvis transvaginal US OB transvaginal Imaging Routine Missed menses Expected: 12/13/2023 (Approximate), Expires: 12/13/2024 [facility] Comment on above: Expected: 12/13/2023 (Approximate), Expires: 12/13/2024 Start: 05-15-2023 Throat culture Throat Culture [facility] Bacteria identified in Urine by Culture Urine culture Microbiology Routine Missed menses Ordered: 12/13/2023 [facility] Comment on above: Ordered: 12/13/2023 CBC W Auto Different ial panel - Blood CBC and differential Lab Routine Missed menses Ordered: 12/13/2023 [facility] Comment on above: Ordered: 12/13/2023 Hemoglobin A1c/Hemoglobin.total in Blood Hemoglobin A1c Lab Routine Missed menses Ordered: 12/13/2023 [facility] Comment on above: Ordered: 12/13/2023 Hepatitis B virus surface Ag [Presence] in Serum or Plasma by Immunoassay Hepatitis B surface antigen Lab Routine Missed menses Ordered: 12/13/2023 [facility] Comment on above: Ordered: 12/13/2023 Hepatitis C virus Ab [Presence] in Serum or Plasma by Immunoassay Hepatitis C antibody Lab Routine Missed menses Ordered: 12/13/2023 [facility] Comment on above: Ordered: 12/13/2023 HIV-1/HIV-2 antigen/antibody combination immunoassay HIV-1 and HIV-2 antibodies Lab Routine Missed menses Ordered: 12/13/2023 [facility] Comment on above: Ordered: 12/13/2023 Reagin Ab [Presence] in Serum by RPR RPR Lab Routine Missed menses Ordered: 12/13/2023 [facility] Comment on above: Ordered: 12/13/2023 Rubella antibody, IgG Rubella an tibody, IgG Lab Routine Missed menses Ordered: 12/13/2023 [facility] Comment on above: Ordered: 12/13/2023 Payers Date Payer Category Payer Unknown BCBS BCBS xxxxxx [id number] 2020-Present [phone] [address] [place] [address] [id number] 1994 Unknown [id number] 2.16.840.1.968776.3.579.2.593 1994 Unknown [id number] 2.16.840.1.979857.3.579.2.593 1994 Unknown [id number] 2.16.840.1.537992.3.579.2.593 1994 Unknown [id number] 2.16.840.1.802907.3.579.2.593 1994 Unknown [id number] 2.16.840.1.305168.3.579.2.593 1994 Unknown [id number] 2.16.840.1.185208.3.579.2.593 1994 Unknown [id number] 2.16.840.1.858546.3.579.2.593 1994 Unknown [id number] 2.16.840.1.159227.3.579.2.593 1994 Unknown [id number] 2.16.840.1.516557.3.579.2.593 1994 Unknown [id number] 2.16.840.1.790142.3.579.2.593 1994 Unknown [id number] 2.16.840.1.369820.3.579.2.593 1994 Unknown [id number] 2.16.840.1.398133.3.579.2.593 1994 Unknown [id number] 2.16.840.1.167821.3.579.2.593 1994 Unknown [id number] 2.16.840.1.403855.3.579.2.593 1994 Unknown [id number] 2.16.840.1.785518.3.579.2.593 1994 Unknown [id number] 2.16.840.1.218862.3.579.2.593 1994 Unknown [id number] 2.16.840.1.465700.3.579.2.593 1994 Unknown [id number] 2.16.840.1.388157.3.579.2.593 1994 Unknown [id number] 2.16.840.1.166407.3.579.2.593 1994 Unknown [id number] 2.16.840.1.080613.3.579.2.593 1994 Unknown [id number] 2.16.840.1.590670.3.579.2.593 1994 Unknown [id number] 2.16.840.1.987901.3.579.2.593 1994 Unknown [id number] 2.16.840.1.113329.3.579.2.593 1994 Unknown [id number] 2.16.840.1.105441.3.579.2.593 1994 Unknown [id number] 2.16.840.1.868339.3.579.2.1259 1994 Unknown [id number] 2.16.840.1.964834.3.579.2.1259 1994 Unknown [id number] 2.16.840.1.201606.3.579.2.1259 1959 Self-pay 1960 Unknown [id number] Unknown [id number] 2.16.840.1.472642.3.579.2.593 Unknown [id number] 2.16.840.1.178479.3.579.2.531 Social History Date Type Detail Facility Unknown if ever smoked [facility] Other Start: 03-12-2023 Sex Assigned At N [facility] Other Start: 1995 Sex Assigned At Female F [facility] Start: 03-12-2023 Tobacco smoking status COIS Never smoked tobacco [facility] Start: 03-12-2023 Tobacco use and exposure Smokeless tobacco non-user [facility] Start: 12-13-2023 Alcohol intake Lifetime non-d иван (finding) [facility] Start: 03-12-2023 History of Social function [facility] Start: 10-25-2023 [facility] Start: 1995 Sex Assigned At Not on file N [facility] Clinical Notes 03-09-2022 to 12-13-2023 Meenakshi [...] undercooked meat, and stay away from [facility]. Patient has also been advised to not [...] Meenakshi Rosenthal MA documented in this encounter [facility] 05-15-2023 Evaluation note Encounter Date Diagnosis [...] understanding and is agreeable to treatment plan. [facility] Other 07-12-2023 Evaluation note* Encounter Date Diagnosis Assessment Notes Treatment Notes Treatment Clinical Notes Apr, Anxiety disorder, unspecified (ICD-10 - F41.9) Pt states that she, and her , agree that she is doing better on the medication. Continues to have stress, but is dealing more appropriately. Would like to continue this med and this dose. f/u6 months, sooner if needed. [facility] Other 06-15-2023 Evaluation note* Encounter Date Diagnosis [...] help for overwhelm. followup in 1 month [facility] Other 05-12-2022 NoteEducation Materials Cardiovascular Hypertension, Adult [...] without skin, beans, e (more content not included)...[facility] note[facility] assessment information available[facility] Work Phone: Evaluation noteNo InformationNort [email or web address] Other Evaluation note* Diagnosis Missed menses documented in this encounter [facility] N[facility]ative - Reported* Type Description Date Surgical History C-sect 2019 Surgical History C-sect 2022 [facility] Other Hisnxgd general Narrative - Reported* Type Description Date Medical History Anxiety disorder, unspecified Surgical History C-sect 2019 Surgical History C-sect 2022 Hospitalization History SEE SURGICAL HX [facility] Other Hisyfpq general Narrative - Reported* Type Description Date Medical History Anxiety disorder, unspecified Medical History Gestational diabetes Surgical History C-sect 2019 Surgical History C-sect 2022 Hospitalization History SEE SURGICAL HX [facility] Other Summary Purpose Family History No Family History Records FoundNo Family History Records FoundNo Family History Records FoundNo Family History Records Found Advance Directives No Advanced Directives Records FoundNo Advanced Directives Records FoundNo Advanced Directives Records FoundNo Advanced Directives Records Found Additional Source Comments INFORMATION SOURCE (unrecogn ized section and content) DATE CREATED AUTHOR 03/18/2022 [facility] DATE CREATED AUTHOR AUTHOR'S ORGANIZ ATION 02/15/2023 [facility] DATE CREATED AUTHOR AUTHOR'S ORGANIZ ATION 05/24/2023 [facility] DATE CREATED AUTHOR AUTHOR'S ORGANIZ ATION 02/11/2024 [facility] EPIC REASON FOR VISIT (unrecogniz ed section and content) Reason Comments Amenorrhea Care Teams (unrecognized sec tion and content) Team Status: Inactive Member Role Status Dates Linsey Witt APRN Attending Provider Active Stone [employer]er Relationship Specialty Start Date End Date Gissel Santana MD [address] [place] [address] PCP - General Family Medicine [...] BE BASED ON THE PRIMARY CLINICAL RECORDS. [facility] provides no warranty or guarantee of the accuracy or completeness of information in this document.
== END 2024-02-28 08:00 | disposition home or self-care (01) ==
LOC: NOMS 07:59
PROVIDERS: Visit Provider Obstetrics & Gynecology
DX: Z36.89 Encounter for other specified antenatal screening (principal); Z3A.19 19 weeks gestation of pregnancy; O44.42 Low lying placenta NOS or without hemorrhage, second trimester
CPT/HCPCS: 76805; 76817

== ENCOUNTER 2024-04-10 08:28 | Outpatient (OUT) | payer BC, SELFPAY ==
--- NOTE | 2024-04-10 08:31 | US_ITS ---
[address] [address] Patient Name: VADIM CONSTANTINO MRN: [id number] date: 1995 Sex: F Assigned Patient Location: [facility] Current Patient Location: [facility] Accession/Order Number: [id number] Exam Date: 04/10/2024 08:31 Report Date: 04/10/2024 09:08 At the request of: ESTELLA BUENO Procedure: US OB transvaginal EXAMINATION: US OB transvaginal, US OB follow up HISTORY: LOW LYING PLACENTA COMPARISON: 12/13/2023, 02/28/2024 FINDINGS: position: Cephalic presentation, longitudinal lie Placenta: Posterior. No intraplacental or retroplacental echogenic abnormality. The placental tip is 3.8 cm from the internal cervical os Three-vessel. Cervix: Closed, 4.9 cm in length Heart rate: 144 beats minute Clinical age: 26 weeks 0 days Clinical NILE: 07/17/2024 US/US OB transvaginal IMPRESSION: The placental edge is 3.8 cm from the internal cervical os Closed cervix measuring 4.9 cm Electronically authenticated by: SEBASTIAN HENRY Date: 04/10/2024 09:08
--- NOTE | 2024-04-10 08:31 | US_ITS ---
[address] [address] Patient Name: VADIM CONSTANTINO MRN: [id number] date: 1995 Sex: F Assigned Patient Location: [facility] Current Patient Location: [facility] Accession/Order Number: [id number] Exam Date: 04/10/2024 08:31 Report Date: 04/10/2024 09:08 At the request of: ESTELLA BUENO Procedure: US OB follow up EXAMINATION: US OB transvaginal, US OB follow up HISTORY: LOW LYING PLACENTA COMPARISON: 12/13/2023, 02/28/2024 FINDINGS: position: Cephalic presentation, longitudinal lie Placenta: Posterior. No intraplacental or retroplacental echogenic abnormality. The placental tip is 3.8 cm from the internal cervical os Three-vessel. Cervix: Closed, 4.9 cm in length Heart rate: 144 beats minute Clinical age: 26 weeks 0 days Clinical NILE: 07/17/2024 US/US OB follow up IMPRESSION: The placental edge is 3.8 cm from the internal cervical os Closed cervix measuring 4.9 cm Electronically authenticated by: SEBASTIAN HENRY Date: 04/10/2024 09:08
--- OUTSIDE RECORDS SUMMARY | 2024-04-10 08:32 | XMS_ITS ---
Patient Summarization (C-CDA 2.1 CCD) Created on: April 10, 2024 DIANE JOYCE : 1995 Sex: Female Author Organization Sample organization Care Team Providers Care Voice Professor Name Role Phone MECHELLE ., DR SORIA [...] Unavailable MECHELLE ., DR SORIA Attending Unavailable Aniket, Sebastian Consulting Unavailable MECHELLE ., DR SORIA Admitting [...] Unavailable Gissel Santana MD Primary Care Provider [phone] ESTELLA MIN Attending Unavailable MECHELLE, ESTELLA Attending Unavailable JULITA NEW Attending Unavailable Encounters Encounter Date Encounter Type Care Provider Facility Start: 03-10-2024 End: 03-10-2024 ambulatory JULITA NEW Not Available Start: 02-11-2024 End: 02-11-2024 ambulatory ESTELLA MECHELLE Not Available Start: 01-14-2024 End: 01-14-2024 ambulatory ESTELLA MECHELLE Not Available Start: 12-13-2023 End: 12-13-2023 ambulatory ESTELLA MECHELLE Not Available Start: 12-13-2023 End: 12-13-2023 Office outpatient visit 5 minutes [facility] Mechelle Nurse [facility] Comment on above: GA: 9w0d Start: 11-06-2023 End: 11-06-2023 ambulatory Gissel Santana Other [employer] Other Start: 11-06-2023 Encounter by donald Santana [facility] Start: 05-22-2023 End: 05-22-2023 ambulatory Olive Howard Other [employer] Other Start: 05-22-2023 Telephone encounter Olive Howard [facility] Start: 05-15-2023 End: 05-15-2023 ambulatory Linsey Witt Facility:[facility] Start: 05-15-2023 End: 05-15-2023 Departed Referred TERESA Witt Work Phone: [facility] [place] Work Phone: Start: 05-15-2023 End: 05-15-2023 ambulatory TERESA Witt Work Phone: [facility] Work Phone: Start: 05-15-2023 Office outpatient vi sit 25 minutes Linsey Witt [facility] Start: 05-09-2023 End: 05-09-2023 ambulatory Gissel Santana Other [employer] Other Start: 05-09-2023 Office outpatient vi sit 15 minutes Gissel Santana [facility] Start: 04-12-2023 End: 04-12-2023 ambulatory Gissel Santana Other [employer] Other Start: 04-12-2023 Encounter for genera l adult medical examination without abnormal findings Gissel Santana [facility] Start: 04-12-2023 Periodic preventive med est patient 18-39 yrs Gissel Santana [facility] Start: 02-15-[address] ESTELLA [...] Facility:[facility] Start: 09-14-[address] GISSEL SANTANA [facility] ity:[facility] Start: 08-16-2022 End: 08-17-[address] GISSEL SANTANA Facility:[facility] Start: 07-27-2022 End: 07-28-[address] GISSEL SANTANA Facility:[facility] Start: 07-20-2022 End: 07-20-[address] GISSEL SANTANA Facility:[facility] Start: 07-13-2022 End: 07-14-[address] GISSEL SANTANA Facility:[facility] Medications Current Medications Medication Drug Class(es) Dates [...] MG 1 tablet Orally BID for 5 Apr, Active Vit-Fe Fumarate-FA ( Plus/Iron) 27-1 MG [...] days Mar, Active take 1 tablet by raaft th every twenty-four hours Sertraline HCl 50 [...] DAY In Vitro for 25 Days Not-Taking Payers Date Payer Category Payer Unknown BCBS BCBS xxxxxx [id number] 2020-Present [phone] [address] [place] [address] [id number] 1995 Unknown [id number] 2.16.840.1.924193.3.579.2.593 1995 Unknown [id number] 2.16.840.1.295038.3.579.2.593 1994 Unknown [id number] 2.16.840.1.221028.3.579.2.593 1994 Unknown [id number] 2.16.840.1.683426.3.579.2.593 1994 Unknown [id number] 2.16.840.1.953182.3.579.2.593 1994 Unknown [id number] 2.16.840.1.490321.3.579.2.593 1994 Unknown [id number] 2.16.840.1.663148.3.579.2.593 1994 Unknown [id number] 2.16.840.1.384684.3.579.2.593 1994 Unknown [id number] 2.16.840.1.037002.3.579.2.593 1994 Unknown [id number] 2.16.840.1.192524.3.579.2.593 1994 Unknown [id number] 2.16.840.1.255277.3.579.2.593 1994 Unknown [id number] 2.16.840.1.800549.3.579.2.593 1994 Unknown [id number] 2.16.840.1.763741.3.579.2.593 1994 Unknown [id number] 2.16.840.1.968452.3.579.2.593 1994 Unknown [id number] 2.16.840.1.308849.3.579.2.593 1994 Unknown [id number] 2.16.840.1.809293.3.579.2.593 1994 Unknown [id number] 2.16.840.1.054803.3.579.2.593 1994 Unknown [id number] 2.16.840.1.884689.3.579.2.593 1994 Unknown [id number] 2.16.840.1.336558.3.579.2.593 1994 Unknown [id number] 2.16.840.1.540926.3.579.2.593 1994 Unknown [id number] 2.16.840.1.389041.3.579.2.593 1994 Unknown [id number] 2.16.840.1.191214.3.579.2.593 1994 Unknown [id number] 2.16.840.1.672894.3.579.2.593 1994 Unknown [id number] 2.16.840.1.964559.3.579.2.593 1994 Unknown [id number] 2.16.840.1.200127.3.579.2.1259 1994 Unknown [id number] 2.16.840.1.230036.3.579.2.1259 1994 Unknown [id number] 2.16.840.1.529673.3.579.2.1259 1994 Unknown [id number] 2.16.840.1.383919.3.579.2.1259 1960 Self-pay 1960 Unknown [id number] Unknown [id number] 2.16.840.1.169379.3.579.2.593 Unknown [id number] 2.16.840.1.098686.3.579.2.531 Plan of Treatment Date Care Activity Detail Author Start: 01-14-2024 End: 01-14-2024 Patient encounter procedure 01/14/2024 8:30 AM EDT Routine [facility] [address] [place] [address] Estella Min, [address] [place] [address] [facility] Start: 12-13-2023 End: 12-13-2024 ABO/Rh ABO/Rh Lab Routine Missed menses Expected: 12/13/2023 (Approximate), Expires: 12/13/2024 [facility] Comment on above: Expected: 12/13/2023 (Approximate), Expires: 12/13/2024 Start: 12-13-2023 End: 12-13-2024 Blood type and Indirect antibody screen panel - Blood Type and screen Lab Routine Missed menses Expected: 12/13/2023 (Approximate), Expires: 12/13/[address] [facility] Work Phone: Comment on above: Expected: 12/13/2023 (Approximate), Expires: 12/13/2024 Start: 12-13-2023 End: 12-13-2024 Thyroid panel with tsh Thyroid panel with tsh Lab Routine Missed menses Expected: 12/13/2023 (Approximate), Expires: 12/13/2024 [facility] Comment on above: Expected: 12/13/2023 (Approximate), Expires: 12/13/2024 Start: 12-13-2023 End: 12-13-2024 US Pelvis transvaginal US OB transvaginal Imaging Routine Missed menses Expected: 12/13/2023 (Approximate), Expires: 12/13/2024 [facility] Comment on above: Expected: 12/13/2023 (Approximate), Expires: 12/13/2024 Start: 05-15-2023 Throat culture Throat Culture [facility] Bacteria identified in Urine by Culture Urine culture Microbiology Routine Missed menses Ordered: 12/13/2023 [facility] Comment on above: Ordered: 12/13/2023 CBC W Auto Different ial panel - Blood CBC and differential Lab Routine Missed menses Ordered: 12/13/2023 [facility] Comment on above: Ordered: 12/13/2023 Hemoglobin A1c/Hemoglobin.total in Blood Hemoglobin A1c Lab Routine Missed menses Ordered: 12/13/2023 [facility] Comment on above: Ordered: 12/13/2023 Hepatitis B virus surface Ag [Presence] in Serum or Plasma by Immunoassay Hepatitis B surface antigen Lab Routine Missed menses Ordered: 12/13/[address] [facility] Comment on above: Ordered: 12/13/2023 Hepatitis C virus Ab [Presence] in Serum or Plasma by Immunoassay Hepatitis C antibody Lab Routine Missed menses Ordered: 12/13/[address] [facility] Comment on above: Ordered: 12/13/2023 HIV-1/HIV-2 antigen/antibody combination immunoassay HIV-1 and HIV-2 antibodies Lab Routine Missed menses Ordered: 12/13/[address] [facility] Comment on above: Ordered: 12/13/2023 Reagin Ab [Presence] in Serum by RPR RPR Lab Routine Missed menses Ordered: 12/13/[address] [facility] Comment on above: Ordered: 12/13/2023 Rubella antibody, IgG Rubella an tibody, IgG Lab Routine Missed menses Ordered: 12/13/[address] [facility] Comment on above: Ordered: 12/13/2023 Problems Active Problems Problem Classification Problem Date [...] [DISORDER OF THYROID UNSPECIFIED] Onset: 10-19-2022 Episodic Procedures Date Procedure Procedure Detail Performing Clinician Start: 12-13-2023 Urnls dip stick/tabl et rgnt non-auto w/o micrscp Estella Min DO Work Phone: Start: 02-01-2023 Extraction of Produc ts of Conception, Low Cervical, Open Approach DR ESTELLA MIN . Throat culture Linsey Witt Other Results Test Name Value Interpretation Reference Range Facility HCG ( test) Ql (U)o n 12-13-2023 Preg Test, Ur Positive [facility] No Panel Informationon 12-13 Interpretation and review of laboratory results Abnormal [facility] e Urinalysis macro (dipstick) panel (U)on 12-13-2023 Bilirubin, UA Negative Negative - 4(70) +++ mg/dL [facility] Blood, UA Negative Negative - 50 Sal/mcL [facility] Clarity, UA Clear [facility] re Color, UA Yellow [facility] Glucose, UA Negative Negative - 1999(110) ++++ mg/dL [facility] Ketones, UA Positive Negative - 160(16) ++++ mg/dL [facility] Leukocytes, UA Negative Negative - 500+++ Lizzy/mcL [facility] Nitrite, UA Negative Negative - Positive [facility] pH, UA 7.0 5 - [facility], [facility] Positive Negative - 1999(20) ++++ mg/dL [facility] Spec Grav, UA 1.030 1 - 1.03 [facility] Urobilinogen, UA 0.2 0.2 - 12 mg/dL [facility] Quick Strepon 05-15-2023 S. pyogenes Org specific cx Ql (Throat) Negative [facility] [employer] Other Quick Strep [facility] [employer] Other Throat Cultureon 05-15-2023 Throat culture Heavy Normal Respiratory John 2 Days PERFORMED BY: [place] [address] PATHOLOGIST WELLNESS EDUCATOR ARACELI HAYWOOD M.D. Normal [facility] Comment on above: Performed By: #### C UT #### [place] [id number] [facility] B STREP CULTUREon 01-27 S. agalactiae [...] F Tetracycline <=0.25 S F Normal [facility] Comment on above: Performed By: #### A FPMAT #### [facility] [address] [place] [address] Dr. Alexsander Dickinson CBC AUTO DIFFon 02-02-2023 BASO # 0.0 103/ul Normal 0.0-0.1 [facility] Comment on above: Performed By: #### C BC #### [facility] [address] [place] [address] Dr. Alexsander Dickinson Basophils/100 WBC (Bld) 0.2 % Normal 0.2-2.0 [facility] Comment on above: Performed By: #### C BC #### [facility] [address] [place] [address] Dr. Alexsander Dickinson EO # 0.0 103/ul Normal 0.0-0.7 [facility] Comment on above: Performed By: #### C BC #### [facility] [address] [address] [address] Alexsander Dickinson Eosinophils/100 WBC (Bld) 0.0 % Critically low 0.9-7.0 [facility] Comment on above: Performed By: #### C BC #### [facility] [address] [place] [address] Dr. Alexsander Dickinson Erythrocyte distribution width (RBC) [Ratio] 12.5 % Normal 11.0-15.0 [facility] Comment on above: Performed By: #### C BC #### [facility] [address] [place] [address] Dr. Alexsander Dickinson Hematocrit (Bld) [Volume fraction] 32.9 % Critically low 36.0-48.0 [facility] Comment on above: Performed By: #### C BC #### [facility] [address] [place] [address] Dr. Alexsander Dickinson Hemoglobin (Bld) [Mass/Vol] 10.7 g/dL Critically low 12.0-16.0 [facility] Comment on above: Performed By: #### C BC #### [facility] [address] [place] [address] Dr. Alexsander Dickinson IG # 0.12 10e3/ul Critically high 0.00-0.03 [facility] Comment on above: Performed By: #### C BC #### [facility] [address] [place] [address] Dr. Alexsander Dickinson IG % 0.7 % Critically high 0.0-0.5 [facility] Comment on above: Performed By: #### C BC #### [facility] [address] [place] [address] Dr. Alexsander Dickinson LYMPH # 1.1 103/ul Critically low 1.2-3.8 [facility] Comment on above: Performed By: #### C BC #### [facility] [address] [place] [address] Dr. Alexsander Dickinson Lymphocytes/100 WBC (Bld) 6.4 % Critically low 20.5-60.0 [facility] Comment on above: Performed By: #### C BC #### [facility] [address] [place] [address] Dr. Alexsander Dickinson MANUAL DIFF REQ NO Normal [facility] Comment on above: Performed By: #### C BC #### [facility] [address] [place] [address] Dr. Alexsander Dickinson MCH (RBC) [Entitic mass] 26.1 pg Critically low 26.7-34.0 [facility] Comment on above: Performed By: #### C BC #### [facility] [address] [place] [address] Dr. Alexsander Dickinson MCHC (RBC) [Mass/Vol] 32.5 g/dL Normal 29.9-35.2 [facility] Comment on above: Performed By: #### C BC #### [facility] [address] [place] [address] Dr. Alexsander Dickinson MCV (RBC) [Entitic vol] 80.2 fL Critically low 81.0-99.0 [facility] Comment on above: Performed By: #### C BC #### [facility] [address] [place] [address] Dr. Alexsander Dickinson MONO # 0.4 103/ul Normal 0.3-0.8 [facility] Comment on above: Performed By: #### C BC #### [facility] [address] [place] [address] Dr. Alexsander Dickinson Monocytes/100 WBC (Bld) 2.1 % Normal 1.7-12.0 [facility] Comment on above: Performed By: #### C BC #### [facility] [address] [place] [address] Dr. Alexsander Dickinson NEUT # 15.5 103/ul Critically high 1.4-6.5 [facility] Comment on above: Performed By: #### C BC #### [facility] [address] [place] [address] Dr. Alexsander Dickinson Neutrophils/100 WBC (Bld) 90.6 % Critically high 43.0-75.0 [facility] Comment on above: Performed By: #### C BC #### [facility] [address] [place] [address] Dr. Alexsander Dickinson Platelet mean volume (Bld) [Entitic vol] 10.7 fL Normal 9.5-13.5 [facility] Comment on above: Performed By: #### C BC #### [facility] [address] [address] [address] Alexsander Dickinson PLT 310 103/ul Normal 150-450 [facility] Comment on above: Performed By: #### C BC #### [facility] [address] [address] [address] Alexsander Dickinson RBC 4.10 106/ul Critically low 4.20-5.40 [facility] Comment on above: Performed By: #### C BC #### [facility] [address] [place] [address] Dr. Alexsander Dickinson WBC 17.1 103/ul Critically high 4.0-11.0 [facility] Comment on above: Performed By: #### C BC #### [facility] [address] [place] [address] Dr. Alexsander Dickinson CBC AUTO DIFFon 02-01-2023 BASO # 0.0 103/ul Normal 0.0-0.1 [facility] Comment on above: Performed By: #### A 1C #### [facility] [address] [place] [address] Dr. Alexsander Dickinson Basophils/100 WBC (Bld) 0.2 % Normal 0.2-2.0 [facility] Comment on above: Performed By: #### A 1C #### [facility] [address] [place] [address] Dr. Alexsander Dickinson EO # 0.0 103/ul Normal 0.0-0.7 [facility] Comment on above: Performed By: #### A 1C #### [facility] [address] [place] [address] Dr. Alexsander Dickinson Eosinophils/100 WBC (Bld) 0.4 % Critically low 0.9-7.0 [facility] Comment on above: Performed By: #### A 1C #### [facility] [address] [place] [address] Dr. Alexsander Dickinson Erythrocyte distribution width (RBC) [Ratio] 12.9 % Normal 11.0-15.0 [facility] Comment on above: Performed By: #### A 1C #### [facility] [address] [place] [address] Dr. Alexsander Dickinson Hematocrit (Bld) [Volume fraction] 34.2 % Critically low 36.0-48.0 [facility] Comment on above: Performed By: #### A 1C #### [facility] [address] [place] [address] Dr. Alexsander Dickinson Hemoglobin (Bld) [Mass/Vol] 11.4 g/dL Critically low 12.0-16.0 [facility] Comment on above: Performed By: #### A 1C #### [facility] [address] [place] [address] Dr. Alexsander Dickinson IG # 0.04 10e3/ul Critically high 0.00-0.03 [facility] Comment on above: Performed By: #### A 1C #### [facility] [address] [place] [address] Dr. Alexsander Dickinson IG % 0.5 % Normal 0.0-0.5 [facility] Comment on above: Performed By: #### A 1C #### [facility] [address] [place] [address] Dr. Alexsander Dickinson LYMPH # 2.1 103/ul Normal 1.2-3.8 [facility] Comment on above: Performed By: #### A 1C #### [facility] [address] [place] [address] Dr. Alexsander Dickinson Lymphocytes/100 WBC (Bld) 23.9 % Normal 20.5-60.0 [facility] Comment on above: Performed By: #### A 1C #### [facility] [address] [place] [address] Dr. Alexsander Dickinson MANUAL DIFF REQ NO Normal [facility] Comment on above: Performed By: #### A 1C #### [facility] [address] [place] [address] Dr. Alexsander Dickinson MCH (RBC) [Entitic mass] 27.0 pg Normal 26.7-34.0 [facility] Comment on above: Performed By: #### A 1C #### [facility] [address] [place] [address] Dr. Alexsander Dickinson MCHC (RBC) [Mass/Vol] 33.3 g/dL Normal 29.9-35.2 [facility] Comment on above: Performed By: #### A 1C #### [facility] [address] [place] [address] Dr. Alexsander Dickinson MCV (RBC) [Entitic vol] 81.0 fL Normal 81.0-99.0 [facility] Comment on above: Performed By: #### A 1C #### [facility] [address] [place] [address] Dr. Alexsander Dickinson MONO # 0.5 103/ul Normal 0.3-0.8 [facility] Comment on above: Performed By: #### A 1C #### [facility] [address] [place] [address] Dr. Alexsander Dickinson Monocytes/100 WBC (Bld) 6.0 % Normal 1.7-12.0 [facility] Comment on above: Performed By: #### A 1C #### [facility] [address] [place] [address] Dr. Alexsander Dickinson NEUT # 5.9 103/ul Normal 1.4-6.5 [facility] Comment on above: Performed By: #### A 1C #### [facility] [address] [place] [address] Dr. Alexsander Dickinson Neutrophils/100 WBC (Bld) 69.0 % Normal 43.0-75.0 [facility] Comment on above: Performed By: #### A 1C #### [facility] [address] [place] [address] Dr. Alexsander Dickinson Platelet mean volume (Bld) [Entitic vol] 10.5 fL Normal 9.5-13.5 [facility] Comment on above: Performed By: #### A 1C #### [facility] [address] [place] [address] Dr. Alexsander Dickinson PLT 275 103/ul Normal 150-450 [facility] Comment on above: Performed By: #### A 1C #### [facility] [address] [place] [address] Dr. Alexsander Dickinson RBC 4.22 106/ul Normal 4.20-5.40 [facility] Comment on above: Performed By: #### A 1C #### [facility] [address] [place] [address] Dr. Alexsander Dickinson WBC 8.6 103/ul Normal 4.0-11.0 [facility] Comment on above: Performed By: #### A 1C #### [facility] [address] [place] [address] Dr. Alexsander Dickinson LDHon 02-01-2023 LDH 124 U/L Normal 81-234 [facility] Comment on above: Performed By: #### C MP, LDH, URIC #### [facility] [address] [place] [address] Dr. Alexsander Dickinson POINT OF CARE GLUCOSEon Glucose [Mass/Vol] 98 mg/dL Normal 74-106 [facility] Comment on above: Performed By: #### A 1C #### [facility] [address] [place] [address] Dr. Alexsander Dickinson PROF 14(COMP METB)on 023 Albumin [Mass/Vol] 2.5 g/dL Critically low 3.4-5.0 [facility] Comment on above: Performed By: #### C MP, LDH, URIC #### [facility] [address] [place] [address] Dr. Alexsander Dickinson Albumin/Globulin [Mass ratio] 0.6 {ratio} Normal [facility] Comment on above: Performed By: #### C MP, LDH, URIC #### [facility] [address] [place] [address] Dr. Alexsander Dickinson ALP [Catalytic activity/Vol] 138 U/L Critically high 46-116 [facility] Comment on above: Performed By: #### C MP, LDH, URIC #### [facility] [address] [address] [address] Alexsander Dickinson ALT [Catalytic activity/Vol] 15 U/L Normal 14-59 [facility] Comment on above: Performed By: #### C MP, LDH, URIC #### [facility] [address] [place] [address] Dr. Alexsander Dickinson Anion gap [Moles/Vol] 14.5 mmol/L Normal [facility] Comment on above: Performed By: #### C MP, LDH, URIC #### [facility] [address] [place] [address] Dr. Alexsander Dickinson AST [Catalytic activity/Vol] 8 U/L Critically low 15-37 [facility] Comment on above: Performed By: #### C MP, LDH, URIC #### [facility] [address] [place] [address] Dr. Alexsander Dickinson Bilirubin [Mass/Vol] 0.2 mg/dL Normal 0.2-1.0 [facility] Comment on above: Performed By: #### C MP, LDH, URIC #### [facility] [address] [place] [address] Dr. Alexsander Dickinson Calcium [Mass/Vol] 8.6 mg/dL Normal 8.5-10.1 [facility] Comment on above: Performed By: #### C MP, LDH, URIC #### [facility] [address] [place] [address] Dr. Alexsander Dickinson Chloride [Moles/Vol] 103 mmol/L Normal 98-107 [facility] Comment on above: Performed By: #### C MP, LDH, URIC #### [facility] [address] [place] [address] Dr. Alexsander Dickinson CO2 [Moles/Vol] 23.7 mmol/L Normal 21.0-32.0 [facility] Comment on above: Performed By: #### C MP, LDH, URIC #### [facility] [facility] [address] [place] [address] Dr. Alexsander Dickinson Creatinine [Mass/Vol] 0.61 mg/dL Normal 0.55-1.02 [facility] Comment on above: Performed By: #### C MP, LDH, URIC #### [facility] [address] [address] [address] Alexsander Dickinson EGFR-AF TURKISH >60 Normal >=60 [facility] Comment on above: Performed By: #### C MP, LDH, URIC #### [facility] [address] [address] [address] Alexsander Dickinson EGFR-NON AF TURKISH >60 Normal >=60 [facility] Comment on above: Performed By: #### C MP, LDH, URIC #### [facility] [address] [address] [address] Alexsander Dickinson Globulin (S) [Mass/Vol] 4.1 g/dL Normal [facility] Comment on above: Performed By: #### C MP, LDH, URIC #### [facility] [address] [address] [address] Alexsander Dickinson Glucose [Mass/Vol] 123 mg/dL Critically high 74-[address] [facility] Comment on above: Performed By: #### C MP, LDH, URIC #### [facility] [address] [address] [address] Alexsander Dickinson Potassium [Moles/Vol] 4.2 mmol/L Normal 3.5-5.1 [facility] Comment on above: Performed By: #### C MP, LDH, URIC #### [facility] [address] [place] [address] Dr. Alexsander Dickinson Protein [Mass/Vol] 6.6 g/dL Normal 6.4-8.2 [facility] Comment on above: Performed By: #### C MP, LDH, URIC #### [facility] [address] [address] [address] Alexsander Dickinson Sodium [Moles/Vol] 137 mmol/L Normal 136-145 [facility] Comment on above: Performed By: #### C MP, LDH, URIC #### [facility] [address] [address] [address] Alexsander Dickinson Urea nitrogen [Mass/Vol] 5.0 mg/dL Critically low 7.0-18.0 [facility] Comment on above: Performed By: #### C MP, LDH, URIC #### [facility] [address] [address] [address] Alexsander Dickinson Urea nitrogen/Creatinine [Mass ratio] 8.2 mg/mg Normal [facility] Comment on above: Performed By: #### C MP, LDH, URIC #### [facility] [address] [address] [address] Alexsander Dickinson PROTIMEon 02-01-2023 INR Coag (PPP) [Relative time] {INR} Normal [facility] Comment on above: Performed By: #### H BSANS #### [facility] [address] [address] [address] Alexsander Dickinson INR GUIDELINES SEE BELOW Normal [facility] Comment on above: Result Comment: CAROLEE RED INR: 2.0 - 3.0 CONDITIONS NOT LISTED BELOW 2.5 - 3.5 FOR PROSTHETIC HEART VALVE REPLACEMENT 2.5 - 3.5 RECURRENT THROMBOSIS Performed By: #### H BSANS #### [facility] [address] [place] [address] Dr. Alexsander Dickinson PT Coag (PPP) [Time] 9.2 s Normal 9.0-11.6 [facility] Comment on above: Performed By: #### H BSANS #### [facility] [address] [place] [address] Dr. Alexsander Dickinson PTTon 02-01-2023 aPTT Coag (Bld) [Time] 25.9 s Normal 22.3-36.2 [facility] Comment on above: Performed By: #### H BSANS #### [facility] [address] [place] [address] Dr. Alexsander Dickinson TYPE AND SCREENon 02-01-2023 TYPE AND SCREEN Negative Normal [facility] Comment on above: Performed By: #### A FPMAT #### [facility] [address] [place] [address] Dr. Alexsander Dickinson URIC ACID SERUMon 02-01-2023 Urate [Mass/Vol] 5.5 mg/dL Normal 2.6-6.0 [facility] Comment on above: Performed By: #### C MP, LDH, URIC #### [facility] [address] [place] [address] Dr. Alexsander Dickinson US PREG BIOPHY W [...] by: DEE GALLEGOS Date: 2023-01-19 06:16 Normal [facility] US PREG BIOPHY W NON [...] by: DEE GALLEGOS Date: 2023-01-11 15:38 Normal [facility] US PREG GROWTHon 01-11-2023 US [...] Glucose [Mass/Vol] 104 mg/dL Normal 74-106 [facility] Comment on above: Performed By: #### A 1C #### [facility] [address] [address] [address] Alexsander Dickinson Glucose [Mass/Vol] 182 mg/dL Normal [facility] Comment on above: Performed By: #### A 1C #### [facility] [address] [place] [address] Dr. Alexsander Dickinson Glucose [Mass/Vol] 114 mg/dL [facility] Comment on above: Performed By: #### A 1C #### [facility] [address] [place] [address] Dr. Alexsander Dickinson Glucose [Mass/Vol] 73 mg/dL Normal [facility] Comment on above: Performed By: #### A 1C #### [facility] [address] [place] [address] Dr. Alexsander Dickinson PAP ACOG PANEL 2: 21 to 29on 11-18-2022 . . Normal [facility] Comment on above: Performed By: #### A 1C #### [facility] [address] [place] [address] Dr. Alexsander Dickinson Age Gdln ACOG Testing - [facility] Comment on above: Performed By: #### A 1C #### [facility] [address] [place] [address] Dr. Alexsander Dickinson DIAGNOSIS: Comment [facility] Comment on above: Result Comment: NEGA TIVE FOR INTRAEPITHELIAL LESION OR MALIGNANCY. Performed By: #### A 1C #### [facility] [address] [place] [address] Dr. Alexsander Dickinson Methodology: Comment [facility] Comment on above: Result Comment: This liquid based ThinPrep(R) pap test was screened with the use of an image guided system. Performed By: #### A 1C #### [facility] [address] [place] [address] Dr. Alexsander Dickinson Note: Comment [facility] Comment on above: Result Comment: The Pap smear is a screening test designed to aid in the detection of premalignant and malignant conditions of the uterine cervix. It is not a diagnostic procedure and should not be used as the sole means of detecting cervical cancer. Both false-positive and false-negative reports do occur. . Performed By: #### A 1C #### [facility] [address] [place] [address] Dr. Alexsander Dickinson Performed by: Comment Normal [facility] Comment on above: Result Comment: Cici Clarke, Equalizer Operator (ASCP) Performed By: #### A 1C #### [facility] [address] [place] [address] Dr. Alexsander Dickinson Reflex Criteria: Comment Normal [facility] Comment on above: Result Comment: The HPV DNA reflex criteria were not met with this specimen result therefore, no HPV testing was performed. . Performed By: #### A 1C #### [facility] [address] [place] [address] Dr. Alexsander Dickinson Specimen adequacy: Comment Normal [facility] Comment on above: Result Comment: Sati sfactory for evaluation. No endocervical component is identified. Performed By: #### A 1C #### [facility] [address] [place] [address] Dr. Alexsander Dickinson CHLAMYDIA/GONOCOCCUS ZUNILDA (SW AB/URINE/PAPon 11-17-2022 Chlamydia trachomatis, ZUNILDA Negative Normal Negative [facility] Comment on above: Performed By: #### A 1C #### [facility] [address] [place] [address] Dr. Alexsander Dickinson Neisseria gonorrhoeae, ZUNILDA Negative Normal Negative [facility] Comment on above: Performed By: #### A 1C #### [facility] [address] [place] [address] Dr. Alexsander Dickinson VAGINITIS/VAGINOSIS DNA PROB Jose De Jesus 11-16-2022 Reema species Negative Normal Negative [facility] Comment on above: Performed By: #### V AGINT #### [facility] [address] [place] [address] Dr. Alexsander Dickinson Gardnerella vaginalis Negative Normal Negative [facility] Comment on above: Performed By: #### V AGINT #### [facility] [address] [place] [address] Dr. Alexsander Dickinson Trichomonas vaginalis Negative Normal Negative [facility] Comment on above: Performed By: #### V AGINT #### [facility] [address] [place] [address] Dr. Alexsander Dickinson US PREG INCOMPLETE ANATOMYon 11-14-2022 US PREG INCOMPLETE ANATOMY EXAMINATION: US PREG INCOMPLETE ANATOMY HISTORY: screening COMPARISON: No relevant comparison available. FINDINGS: Heart rate: 150 bpm position: Variable Anatomy: 4.8 x 5.8 mm choroid plexus cyst is again identified IMPRESSION: Stable choroid plexus cyst Electronically authenticated by: SEBASTIAN HENRY Date: 2022-11-14 16:19 Normal [facility] FREE T4on 10-19-2022 Free T4 [Mass/Vol] 0.89 ng/dL Normal 0.76-1.46 [facility] Comment on above: Performed By: #### H BSANS #### [facility] [address] [address] [address] Alexsander Dickinson TSHon 10-19-2022 TSH 1.303 uIU/mL Normal 0.358-3.740 [facility] Comment on above: Performed By: #### H BSANS #### [facility] [address] [address] [address] Alexsander Dickinson US PREG ANATOMY SINGLEon [...] DEE GALLEGOS Date: 2022-10-17 20:42 Normal [facility] AFP MATERNAL FOR SPINA BIFID Aon 10-11-2022 AFP MoM 1.49 Normal [facility] Comment on above: Performed By: #### A FPMAT #### [facility] [address] [address] [address] Alexsander Dickinson AFP Value 60.8 ng/mL Normal [facility] Comment on above: Performed By: #### A FPMAT #### [facility] [address] [address] [address] Alexsander Dickinson AFP, Serum for Spina Bifida Report Normal [facility] Comment on above: Performed By: #### A FPMAT #### [facility] [address] [address] [address] Alexsander Dickinson Comment Comment Normal [facility] Comment on above: Result Comment: Niurka Patricia, Ph.D., [facility] Director . References: Available Upon Request. . Multiples Of Median Cutoffs For AFP Elevations Fonseca 2.5 Black 2.8 IDD 2.0 Twins 4.5 Abbreviation Definitions IDD - Insulin Dep Diabetes OSBR - Open Spina Bifida Risk . For further inquiries contact [employer] [facility] at [phone]. . This test was developed and its performance characteristics determined by [employer]. It has not been cleared or approved by the Food and Drug Administration. Performed By: #### A FPMAT #### [facility] [address] [id number] Alexsander Tiwari Age Collection Date 19.4 weeks [facility] Comment on above: Performed By: #### A FPMAT #### [facility] [address] [address] [address] Alexsander Dickinson Gestat, Age Based on NILE [facility] Comment on above: Result Comment: 02/2023 Recalculations are not recommended when gestational dating by LMP and ultrasound are within 10 days. Performed By: #### A FPMAT #### [facility] [address] [address] [address] Alexsander Dickinson Insulin Dep Diabetes No Normal [facility] Comment on above: Performed By: #### A FPMAT #### [facility] [address] [place] [address] Dr. Alexsander Dickisnon Interpretation Comment Normal [facility] Comment on above: Result Comment: Inte [...] Customer Services to discuss available options. The [employer] recommends amniocentesis be offered to women age 35 and older. Performed By: #### A FPMAT #### [facility] [address] [place] [address] Dr. Alexsander Dickinson [age] Normal [facility] Comment on above: Performed By: #### A FPMAT #### [facility] [address] [place] [address] Dr. Alexsander Dickinson Multiple Gestation No Normal [facility] Comment on above: Performed By: #### A FPMAT #### [facility] [address] [place] [address] Dr. Alexsander Dickinson OSBR Risk 1 IN 2809 Normal [facility] Comment on above: Performed By: #### A FPMAT #### [facility] [address] [place] [address] Dr. Alexsander Dickinson PDF . Normal [facility] Comment on above: Performed By: #### A FPMAT #### [facility] [address] [place] [address] Dr. Alexsander Dickinson Race Normal [facility] Comment on above: Performed By: #### A FPMAT #### [facility] [address] [address] [address] Alexsander Dickinson Test Results: Negative Normal [facility] Comment on above: Performed By: #### A FPMAT #### [facility] [address] [address] [address] Alexsander Dickinson GTT 3 HR PREGon 09-29-2022 Glucose [Mass/Vol] 99 mg/dL Normal 74-106 [facility] Comment on above: Performed By: #### A FPMAT #### [facility] [address] [address] [address] Alexsander Dickinson Glucose [Mass/Vol] 173 mg/dL Normal [facility] Comment on above: Performed By: #### A FPMAT #### [facility] [address] [address] [address] Alexsander Dickinson Glucose [Mass/Vol] 151 mg/dL Normal [facility] Comment on above: Performed By: #### A FPMAT #### [facility] [address] [address] [address] Alexsander Dickinson Glucose [Mass/Vol] 76 mg/dL Normal [facility] Comment on above: Performed By: #### A FPMAT #### [facility] [address] [address] [address] Alexsander Dickinson GLUCOSE - 1HRon 09-20-2022 Glucose [Mass/Vol] 159 mg/dL Critically high 74-106 [facility] Comment on above: Performed By: #### H BSANS #### [facility] [address] [place] [address] Dr. Alexsander Dickinson HEP B SURFACE ANTIGEN SCREEN on 08-17-2022 HBsAg Screen Negative Normal Negative [facility] Comment on above: Performed By: #### H BSANS #### [facility] [address] [place] [address] Dr. Alexsander Dickinson HEPATITIS C VIRUS AB W/ REFL EX QUANTon 08-17-2022 HCV AB <0.1 Normal 0.0-0.9 [facility] Comment on above: Performed By: #### A 1C #### [facility] [address] [place] [address] Dr. Alexsander Dickinson Interpretation: Comment Normal [facility] Comment on above: Result Comment: Nega tive Not infected with HCV, unless recent infection is suspected or other evidence exists to indicate HCV infection. Performed By: #### A 1C #### [facility] [address] [place] [address] Dr. Alexsander Dickinson HIV 1 AND 2 WITH REFLEXon HIV Screen 4th Generation wRfx Non-Reactive Normal Non Reactive [facility] Comment on above: Result Comment: HIV Negative HIV-1/HIV-2 antibodies and HIV-1 p24 antigen were NOT detected. There is no laboratory evidence of HIV infection. Performed By: #### H IV12 #### [facility] [address] [place] [address] Dr. Alexsander Dickinson RPR QUANTon 08-17-2022 Rapid Plasma Reagin, Quant Non-Reactive Normal NonRea<1:1 [facility] Comment on above: Result [...] utilized, such as Treponema pallidum (Syphilis) Screening Camp (305924) or Rapid Plasma Reagin (RPR) Test With Reflex to Quantitative RPR and Confirmatory Treponema pallidum Antibodies (007872). Performed By: #### H BSANS #### [facility] [address] [place] [address] Dr. Alexsander Dickinson RUBELLA AB IGGon 08-17-2022 Rubella Antibodies, IgG 11.90 index Normal Immune >0.99 [facility] Comment on above: Result Comment: Non- immune <0.90 Equivocal 0.90 - 0.99 Immune >0.99 Performed By: #### H BSANS #### [facility] [address] [place] [address] Dr. Alexsander Dickinson CBC AUTO DIFFon 08-16-2022 BASO # 0.1 103/ul Normal 0.0-0.1 [facility] Comment on above: Performed By: #### H BSANS #### [facility] [address] [place] [address] Dr. Alexsander Dickinson Basophils/100 WBC (Bld) 0.6 % Normal 0.2-2.0 [facility] Comment on above: Performed By: #### H BSANS #### [facility] [address] [address] [address] Alexsander Dickinson EO # 0.1 103/ul Normal 0.0-0.7 [facility] Comment on above: Performed By: #### H BSANS #### [facility] [address] [place] [address] Dr. Alexsander Dickinson Eosinophils/100 WBC (Bld) 0.9 % Normal 0.9-7.0 [facility] Comment on above: Performed By: #### H BSANS #### [facility] [address] [place] [address] Dr. Alexsander Dickinson Erythrocyte distribution width (RBC) [Ratio] 12.9 % Normal 11.0-15.0 [facility] Comment on above: Performed By: #### H BSANS #### [facility] [address] [place] [address] Dr. Alexsander Dickinson Hematocrit (Bld) [Volume fraction] 39.0 % Normal 36.0-48.0 [facility] Comment on above: Performed By: #### H BSANS #### [facility] [address] [place] [address] Dr. Alexsander Dickinson Hemoglobin (Bld) [Mass/Vol] 12.9 g/dL Normal 12.0-16.0 [facility] Comment on above: Performed By: #### H BSANS #### [facility] [address] [place] [address] Dr. Alexsander Dickinson IG # 0.04 10e3/ul Critically high 0.00-0.03 [facility] Comment on above: Performed By: #### H BSANS #### [facility] [address] [place], [place] [id number] Dr. Alexsander Dickinson IG % 0.4 % Normal 0.0-0.5 [facility] Comment on above: Performed By: #### H BSANS #### [facility] [address] [place] [address] Dr. Alexsander Dickinson LYMPH # 2.4 103/ul Normal 1.2-3.8 [facility] Comment on above: Performed By: #### H BSANS #### [facility] [address] [place] [address] Dr. Alexsander Dickinson Lymphocytes/100 WBC (Bld) 26.3 % Normal 20.5-60.0 [facility] Comment on above: Performed By: #### H BSANS #### [facility] [address] [place] [address] Dr. Alexsander Dickinson MANUAL DIFF REQ NO Normal [facility] Comment on above: Performed By: #### H BSANS #### [facility] [address] [place] [address] Dr. Alexsander Dickinson MCH (RBC) [Entitic mass] 28.4 pg Normal 26.7-34.0 [facility] Comment on above: Performed By: #### H BSANS #### [facility] [address] [place] [address] Dr. Alexsander Dickinson MCHC (RBC) [Mass/Vol] 33.1 g/dL Normal 29.9-35.2 [facility] Comment on above: Performed By: #### H BSANS #### [facility] [address] [place] [address] Dr. Alexsander Dickinson MCV (RBC) [Entitic vol] 85.7 fL Normal 81.0-99.0 [facility] Comment on above: Performed By: #### H BSANS #### [facility] [address] [place] [address] Dr. Alexsander Dickinson MONO # 0.6 103/ul Normal 0.3-0.8 [facility] Comment on above: Performed By: #### H BSANS #### [facility] [address] [place] [address] Dr. Alexsander Dickinson Monocytes/100 WBC (Bld) 6.8 % Normal 1.7-12.0 [facility] Comment on above: Performed By: #### H BSANS #### [facility] [address] [place] [address] Dr. Alexsander Dickinson NEUT # 5.8 103/ul Normal 1.4-6.5 [facility] Comment on above: Performed By: #### H BSANS #### [facility] [address] [place] [address] Dr. Alexsander Dickinson Neutrophils/100 WBC (Bld) 65.0 % Normal 43.0-75.0 [facility] Comment on above: Performed By: #### H BSANS #### [facility] [address] [place] [address] Dr. Alexsander Dickinson Platelet mean volume (Bld) [Entitic vol] 9.9 fL Normal 9.5-13.5 [facility] Comment on above: Performed By: #### H BSANS #### [facility] [address] [place] [address] Dr. Alexsander Dickinson PLT 275 103/ul Normal 150-450 [facility] Comment on above: Performed By: #### H BSANS #### [facility] [address] [place] [address] Dr. Alexsander Dickinson RBC 4.55 106/ul Normal 4.20-5.40 [facility] Comment on above: Performed By: #### H BSANS #### [facility] [address] [place] [address] Dr. Alexsander Dickinson WBC 8.9 103/ul Normal 4.0-11.0 [facility] Comment on above: Performed By: #### H BSANS #### [facility] [address] [place] [address] Dr. Alexsander Dickinson CULTURE URINEon 08-16-2022 CULTURE URINE Culture Observations: MODERATE GROWTH OF MIXED GENITAL JOHN. NO POTENTIAL PATHOGENS SEEN. Normal [facility] Comment on above: Performed By: #### A FPMAT #### [facility] [address] [place] [address] Dr. Alexsander Dickinson GLYCOHEMOGLOBIN A1Con 2021 ADA RECOMMENDATION SEE BELOW Normal [facility] Comment on above: Result Comment: ADA RECOMMENDED LIMIT 4.0 - 6.0 ADA THERAPEUTIC TARGET < 7.0 ACTION SUGGESTED > 7.0 Performed By: #### A 1C #### [facility] [address] [address] [address] Alexsander Dickinson Glucose [Mass/Vol] 111 mg/dL Normal [facility] Comment on above: Performed By: #### A 1C #### [facility] [facility] [address] [address] [address] Alexsander Dickinson HbA1c (Bld) [Mass fraction] 5.5 % Normal 4.5-6.2 [facility] Comment on above: Performed By: #### A 1C #### [facility] [address] [address] [address] Alexsander Dickinson LATRELL BOX TEST PT SEND OUTo n 08-16-2022 SENT TO REF LAB 08/16/2022 Normal [facility] Comment on above: Performed By: #### N BOX #### [facility] [address] [address] [address] Alexsander Dickinson TYPE AND SCREENon 08-16-2022 TYPE AND SCREEN Negative Normal [facility] Comment on above: Performed By: #### A FPMAT #### [facility] [address] [address] [address] Alexsander Dickinson US PREG TVon 07-21-2022 [...] DEE GALLEGOS Date: 2022-07-20 22:25 Normal [facility] US PREG TVon 07-13-2022 US PREG TV EXAMINATION: US PREG TV HISTORY: Missed period COMPARISON: 03/09/2022 FINDINGS: Fonseca intrauterine gestation Gestational sac: 1.7 cm, 6 weeks 2 days Yolk sac: 1.7 mm [place]-rump length: 5.8 mm, 6 weeks 3 days Heart rate: 125 bpm Uterus is normal in appearance, anteverted, retroflexed The ovaries are normal in appearance. Cervix: Closed, 3.9 cm small amount of fluid in the endocervical canal IMPRESSION: Viable fonseca intrauterine gestation measuring 6 weeks 3 days Electronically authenticated by: SEBASTIAN HENRY Date: 2022-07-13 17:05 Normal [facility] Coding Summaryon 03-17-2022 Coding Summary HTMLBase 64 PhitwpysPXe3lEi+PGhl YWQ+MQ5AOMYdA18mcAPa rS6RX6mTUA3ZZUXJRNUL QT8WMG9qcIF9EMgiP3Cb biAv MvnfvXQoLV39SOv9MOB4 tFetTAksoM0udCKhM7p5 QeGzYL64yM89PGfoDTHp FlV4PbLtokotqMNa A3tcXyBuzHYvAjj+PHRh YmxlIHdpZHRoPScxMDAl KuJwjLuqRM6uWp8zRHWx LWNvbGxhcHNlOiBj v9ntGBMxULsbFJ5ypXns N7VduWA9VIAxx7y5Wo31 dHI+DHAlTXZ4uEsmANnr p838NwVxm3srTLN8 vITcYZmpMEY7U97lz1H3 DCTnEVMnRYX4uFE0mF0b aAwrelvoK5YyfYQeRuQ7 QOZ8vAHdcL2kuLzk wavkmM1kXwc+L75DBZ8U ONZLNL1GGbn3E2WrRuzz dHI+KN48PCBiCG84zMRy ySBll2bdbEf1IiKv QIKrHYQ9yFbtEUnng1Wg LJDdH32lfRIer9G9TGRc jHjmsBOnVxOoaYL1qA9l ZGqpkwxas8kvdojm Weiug9ebuc01mE83Y68m XIvfUFUrBIW1PGVaSDVl uQyhfa8aeP0hXx1+IDxj t1okd9gsbOg4JmZk JGGxfbNdiHbzFLI0i0Le Vs05Y0QbqMjjq6FiEcq4 ew20gOHbw6U7wJP9JXnn STCawP8nQWqwEsX5 NHFsVnQgoC85oSTlMOfq Hk4omBbxeRuqSB4rHCOy ztlwHMNoeK3rFSBbmBNa eIipRD7sNXHgremm n325IpKkLAA6JEXspMWq H4YldH3dKvHaDIMqKOPs T3VdyNRaQGyoW225TIag VuJ9GBAlbvDfG1Zo BOVilAjjTxK7i9B4Cv7B j0IzcjqqSLA6CGmcKUS1 JiScDuKaQyU8W0TjAdo4 TYQdpAvwFL8eC9Ti MENpugslxqhlcZX3IAPn GOYezD95yGLbADroZo3k q2F9x104RIBvVQJqiI90 Be2rfNqeDJStrAQM nE3xedirs6qmvgesClRa LZRfPTs6PMv8DENamJjz WwFmZGR4HfI1GWR9wZLt nB8tzBnqrggooN8m Oyc+U80xwT4zIWI7RSF8 ykpdVKBhtiLgMF98QF54 D0GiKqoaqHFylNI+PGRp aiAvvDosZF0oSeEy d6qwh3UaUSwcR1JgNNVs QFtbLkn7HUTaZXF7nCJ5 mD0rXEUiOEcxx6X1wER9 F0MiwyPbgv9se5tv FNNfZJnzY63vsGJwl5U6 UWVipCI7RCOwgWzjMfWd hP77Ncx+AJEpgNbmr2Zx Ynswd4pao1lcsFr6 IjMwJSIgdmFsaWduPSJ0 a2MrZh01Q31xIOtzKNGk NUElRSTgWQKakAvati1s rI6aPa8+PGNvbCB3 sXI9bS8rCZAlBiG2OQhj S115CqXlkWFcQjhod0ps h5oivJf6WaSqFUNflrWm jDvxPSC1g8McJu78 E29jKYvoVZHaPCRvWVRe SWUepFlfyp0teV3jDu4+ PJ0fa0kmfz11kD09qVM+ KNWiXEO0jNweHRer QCZgwR7vLLceShD0OJUg YcAlcY64zSYcDBueEh5j iRdngHsqND1hSDRhitgz k369KjGym0tkSTGy aDFfJSkjJYU0T76io4V4 MLGuTXNdOHU0vHL9zS3v bGlnbjogbGVmdDsgdmVy sWkiLMghWOwyN438 IHRvcDsnPlBhdGllbnQg QpBxUIc1N1AtUwh1HFJg bCfnWI1wgALqKYrbNa9y qYbunYqbSZ8eMMJy woxtn086RjZob1icFEPe zOSxYYkpUTE6U37ic8Y4 VDDoTFBjZXA4zBP6iY4a bGlnbjogbGVmdDsg mxVmwWgnXIrxVFelR125 IHRvcDsnPkJpcnRoIERh bHI8WU41JQ12sDSjn9G9 vDH7C5UnEDAdhpcu aoejkGF4VXRzGQQreZ14 Fw7ptLslQm2aEHJiTTH6 RLMoyFYgA8WtyD9zTgFq RMHuSFJzK5YpbIHr UQmuM564FBcdGwV2NJMe zvCsA5DwUEGfeTltRjB7 g6C5Ya2EC8I7SR93PA31 bWEfr7Z8sYJ0O6Hx IXZnuchimnrduXX8XGVh ESImaT66Ay7epDwyTi6l MMRvOPC8FPOijSCbE0Bp hF3cZhRzWGIeYJVh P2RogFOvIPwhA068LPie OyP1WIQazeBkI0WyGTXn lWteNdG5p1T6Pm9VRLn9 RA77YJ29kGYbs9K2 vQE7W3LtTIApxmnwvhsm uCP6FNXiHROjrE55Ig7n zPpvCd1sNKRhLTP2IKDf vACsR0CumC3tJfUd QZHhGLGiW7JumTTpIUnl H468ICvhWcY0OVTcraIz Q7OiTRBtfVscKtP4k4C2 Xz2ZKYUtUB95EIF3 vCL7MU39GU09H7CwWchw dGFibGU+PHRhYmxlIHdp ZHRoPScxMDAlJyBzdHls CK4zEd5zEKHbJTZp jTdgfSNxNgIkj9klSPFu SPbjBH4bdUutQ3LwdIE1 MZYrq1w5Fl68L25kQ0Pu dXA+IKJjmRU8bYW6 hG8lEpWvLkL3FZyaR553 MuGpaCOlRvfos2svs0hc yBa1ClA3SHBsceVcnFqf IJH9x7VfJy63Z33n IHdpZHRoPSIxNSUiIHZh oFwyfr0eyF7aLm6+PGNv cVM5xJG4zE5kPaFbSbN8 WZhbN931SnEnyHYf Ktfpd9ltr3ntlHr5HzLy HUVvxvFaiCipLRT6u4Ok Pf93F1UueXdhq5FkQsb3 dj74aMBvn8Y0hPN8 G0TgUUNbnjsynSZxjTsb ID4vZPXafxwhGVYxjH7f GDLgA2q4UzRsQqO0DVsy I5CvmpB2KLVbwEFa DDmfAOL9J00gy1Y6WDMs PJNxSIK9oOB9jW5gfXlm bjogbGVmdDsgdmVydGlj NQpwZAwhK861MRCh xYtjCQKcpU4dWHXjtJYk rKniNH2bXGFkpshlPjEQ TExJTlMsIEFMWVNTQSBS EROKOZf3A0UxGof8 YKQvbJhoSR3ulPZuBQnq Mp7hmPgesHmjOM8wANXk nleuHYYozN6lMDScxIRi aUbqPY8jKBQvllay t292HvXfJUA5YYUisMIl R8LffF8xBbNrIHOySZQb P4FrpFCjOXnmE781JZol SqY5XGEapjShD0Ga ASZexCieHaG9l6S4Gp4x IN7qNo5xZQk4VP13NJ31 nFBmd3I1lMU2O1FfHADg kxhpemqrwNV1HMQu VMLkxI19uCDpZAvvGq2w n2U5u844OXYnSEWfeR33 Mc1ylYyxYIWryXRWaI4c ykrqj0yjgtkdKxTs SCPoKJn0JLt5SASfwWvw VjPbOFS0HoX9PNJ5bUMq qG4wcDhrsqabjA2uOza+ KbiiURNuboK8V4Ga Ayz3ANDaxDbsWU1qoFQk UAmbQe4xcIsopXvlHG1y OFSndtdqNLLchC9aXODg aUNxoMqfGX5qTVUi lqnbr432IkViXOZ5QFDk pWLzW1JtvF3yScBhJSFm CLJhR2BgqNIrDBewP836 ZEmtJjX9PXQwvtVk D6FyBOYtaVeuPrC9b0Z5 Jh3BGN9UEXS9F3PwVfh6 FZKpsDxdWL9xfIIoQHtl Qh1ccMjkqIqjIO0i RGQppxraOXHvuQ7fNXQj zBLtnZthRY6mXSWszzqm c467JbUmXGZ2IIAviUXo N8MovL9lFmMbCKOu WKIfR9JzgUGgDLuvE108 QPecSkF3QAAewiCeO5De AKGbtDrzAbB2i4I2Ax6I wVUlV4LnX4x1D2Jc PjwvdHI+EQ00YICoBD52 cLQywZZke0vtwTh0VbBt NOFpMPD4vQqjHPycu5Du FCQaS80owYZao1D7 IGNvbGxhcHNlOyBlbXB0 pB4qKMxhdvuwv4eoqkjp Nfxkm1rnyo04pF41R02r IHdpZHRoPSIzMCUi BSPxeKjxog0pkF9rSu9+ WEFrdEK0tBW5dG0hSiJw KqN7BBdbV677TfAbfXJd Rbkku5spb1zckSy3 IjIwJSIgdmFsaWduPSJ0 c6QvIg37U16cRMwdKDSe RVCaTXQjTMOamZfhfa0i iL0fJi2+QE0re1uf vf68qO43cHW+PHRkIHN0 zQvgRWovZYVpwN1sNYal DhG7EVIvSoNsqA84kGYf LArnQj9hzTdfqLsx BA8iFUIgoovzm946FxRm w0vdCIQrmSUbIBeqDXK9 R65fo3Z9NEKnVTBpXUF9 vBP0gN6hmCwqilyh bGVmdDsgdmVydGljYWwt JLjiA770JAOkoUouDwCx sCFhO5enbfMUWJ2mCnjb dGQ+YTOzLBJ5jMqz PKbtBBHvrK5tBNUpA9j6 PnJeGyD8BMbsV2GgwvX4 YRKiiVXcYKEcqSNTlO1r mjncs9iazuhdEbXs KARzOUu8LCc2KJPulEod GqLeNYP3ClY1VXP3kLFv kX3ylArbyyrlcF5sJbi+ RklOOjwvdGQ+PHRk TSI7cObzIBsxIFRbkH4q LDJjR8y9ViRiOvJ0UZtr W5CgjkF9GEAquWQnBJCs tLYIkJ2qdwuzg5ef dlmrYwRlIQAnHAc5CNq9 GUBbxBrtMxQjGSA9RwX9 DHF4hJHghA7kvXorgkbt hA6yPwy+TVJOOjwv dGQ+XPVtKMY7pEeiEAxr ECZhdE2vXOVqJ2j9YwMt SiU6AUjuW0HfcyR2UNSe mEAsVZMfmDUJzC8h jamyg8qlszlzLnRrVQVi YNr6NFw3HCTdiPevNqIo FAN6SaE7VZV6rWTbmW2c wTrnetfpxW7kZuz+ LFH1INJ6JL60ND35N0Iy PjwvdGFibGU+PHRhYmxl IHdpZHRoPScxMDAlJyBz jZviRC5sMj6gTHPa LWN (more content not included)... [facility] Coding Summary HTMLBase 64 TgoznutzJNb9kIk+PGhl YWQ+TJ1RLGAvJ41avOEr dJ8KH6xTGX4QODYFUFHJ PQ7NPK8paEI3KOgqV6Iv biAv RbnnjRVkDT47MAc8PAH8 zAnoLUacrP9stMHbY2o5 CjStIV10kE64NJefZUMi EqT9BkAoxwpdzQEf F4avEmWqyMZzRny+PHRh YmxlIHdpZHRoPScxMDAl FlSoaMvbRD5eXt1cCVHd LWNvbGxhcHNlOiBj k8xzLDUnULjdFK7ofNbz X9QohVQ6DYFnq7a6Xd76 dHI+HQXuRFH9mHjuWFcl v651KfAdi7lkEOH0 zWLtEEhlAPR8W20jk4Y5 YQAyNSKuBAD7yGQ9lD4n pNwiptqfK1LvvAOoOlI0 RZK1tLGtnY5nlPyu dnctmW9zKrd+Y25OUR1W VEGXAB9ZHkk2Y8JqEucc dHI+VN50UDGwQW14tHGx kVQjn2zfbAb0EbMr MOWhQLF9tRabZPkju9Fg VMEtE89fdLAim1C9BDMj sBzwcOKxAkEyyVD7gU0p BLxqadnoy6ipvtun Ezahc0bllk22rN49A90c DVarZDJdPYC1QTPzGPOf gDqwao3qiQ9zQi5+IDxj x6akj1upoAd1CwEu PFNhagDpoKibDLG5i7Yo Od21C7MvmQphj1EgGip3 yh01yIUjw3Q7fBI7CMct HOScfF2kBQraBaF8 KOBpPwKotF87eWYiUBgi Rw9awZrowPsgCK7aATYk bukkMWZutB7lVEXpaPBa wUvlCV0tTKZsjaeq v814MqXqOIM6QUKxeWGb F0OnbO9lDsXeGEIcUEPv H8RzdNNyYEbgY915FZwt PxZ4UTDqnmZeJ2Wp CNSlnQdoNgU4f5B7Nr4Z w9TrygbiSXZ4OOgaQPS6 LuHlKdMwLdR8D6GsBpq2 AGEauJzuPB8qO5Xp XPTiybuyxsqmzGZ0CETy AEHriC31sAJoGYgbUb3e r9B0x443XCViECTjeK80 Hm0xeKeuOEUvzGMR jG2utnbkz9zhbanpCsIj FGNkZNd5ATd2VOAcpOjg OhNiYJZ2RsH3PUW8uRVx xX9isLsrgovojA0r Oyc+D29ldN3jCLH8TZO0 yxxeEOOfitNsMT84XB30 J7VpOgfenBCjaBO+PGRp scOboWlcPS6qXpCh j2gcf8BfXWqgO8JsVQFy CNcyQbu7TDCxMNC5nVO0 sI3dIDRhKLfki4W3rYP6 Q6JpcmCbzn9bk8ey IHVsKKrsT58xbSDid9A4 NVJmiQD0LSXfiPtmMwDx nD69Trz+HSXrgUizm4Av Vfaps3wwf8godJp6 IjMwJSIgdmFsaWduPSJ0 g8QbSd21X86rCKqdOGOv IKXpSLKjHPRdmDovum6s iJ1yBe7+PGNvbCB3 wYX5iL3lPJHzWdN4NZuo W065UvNrqFIqUdden9nd g4itdTo6KbAkHMIuanCk zZeeBSL1t5QnAs87 H29sPKkcZAAsSTYpZHMe XHTqzIfmpr7irM8sEb8+ BI1ck4szkv97bI36yOK+ BAAbWIO9iCdgJWue VVOltB9uTVtiFmA8XTNi NeCotZ56aISaPFutBv6t yKxcbBikKD8gWBJahicg x114KzQng0zrMHAw mFOjMOyjRNM2J48od2R8 SZXaDVXvQVX0sOY3iL0f bGlnbjogbGVmdDsgdmVy uHelKYmuZFuvV632 IHRvcDsnPlBhdGllbnQg AaDtQTf3A8KwVic2CBQa sManCU7vfERmOLakXa7x mEiwiYmiMN9cDDEc mhiak572DiXxc2txHHEw wUIhIIqxYCD9H12wp4S4 HZXwRCRsFGI0jMW7gX4n bGlnbjogbGVmdDsg klQqpShbNKbiMVhdC004 IHRvcDsnPkJpcnRoIERh rFU6LH44HQ32sPZku8V0 eBV5Y2IfZCXyzlnz nhqbvVF5PBObVQNshP86 Ll4wsMzxPk8uFDDpJXW9 ADDpqAIhN2BhuG6mTdAg QEIlEWYnM9VjgGVc INwyU277XZedWyD6KZHd yfGsT1RqGKOxwMzyCvF8 r4J6Io1GM6I5GF00AO28 eJDmn5B6lBZ0S9Dj DLGkcuqpxaqmlPX8MJPi GEGiuT46Ig5lfVoiSq9l JTMhOAM9KFGqvLDlQ1Kg mO4rRxCqJQUoEZKh C6KuvRCjYWcmU512ZSfk IpB1NPIdadFnO5WvATEi cPimIyU8l9J7Kt0BMEe1 GM90ES05aIKnf2F0 aRE5H4RmKWEqfroudcyy jJS4EKSjSIEzcL59Km8s zIjcSx4dZBPoVQP0YZQl aNCpF4QlvP3iJvVz TMMnUHZuS7WsxQAjDGrf V047FPnaWdI2BJQwpzMf Q0VwKAXwjVdbPbW4v4T5 Gj8EDCFjCI39XWA1 yLE4NS85ZZ86N7YpBbfu dGFibGU+PHRhYmxlIHdp ZHRoPScxMDAlJyBzdHls IR3hKm8iEZZfCAHk eRootNAfFmCyy5odDGBh YCtbZY2qfHadT0ZadDO3 RSUer1p5Wb53M22pP4Ns dXA+EIMskQT4mVY0 gH0nIbXbCkN0GPjhY602 AaQymQGeRylvh5nrp7bq vQu0LoB6HRWaxwMnkTzn IYS5w0VtTr33T26j IHdpZHRoPSIxNSUiIHZh bPanlo9knZ7pIl2+PGNv dQP7xZL6fF7gNgYsShP4 OTdrF419UsQrsDFw Xsrbb4zdo1hsaHs3JsDr MIEfgwHjaHitKRW1b7Cr Oz65R9YboBwtp5ZsHcd5 ih61wCZcy4H1pXH1 A8FoVMEwfbqvsVQqdNtp RY4lPUKuwajyLAQacN2n GHWlS6h3RxClXmP9BKzk F3AvhgE0UMRzrCXw PFlsBZI3C83in1D4NBMi AVLcADE0mVP1vY3amSwr bjogbGVmdDsgdmVydGlj INjxVWtsR470XMEu tJoaVUNwgP3qJRVteHLd mXwbYN4bJJLlryfhKqEF TExJTlMsIEFMWVNTQSBS QEAYMJg2P5TaAuo6 TOBkgNsjKH0dyDKsIKoc Vx0nwCwgeBpcPX7dIQHh qdpaRAZqhS3kYHEnhTOr oVhhLT3iJCUeeulk y120BzMtSNV5RYAgoEKh T2KgkT1fIoQhICBkVOJx W9YfnMSjJHpmK997SNdz EaK0RZAemsBsT2Lq BNEbrRioTgW6q1L8Qr1o RG6qXo4uTEi9TI13EK07 gIIgl5C1zXS2F3WbHLBq okvfmmkvsSJ2ISUj KPPzzQ35nDBpRMjhBr7a t4X8p138JLLyDCQwmO37 Ua7yxDbbOQTvrWENsA7z apzrv6smtknkReFq UOJkNOh3YYm0DOLpdAxy KoKbYGA2BpW9SAH1fMHq cJ0tyDcgoemwvM2qEaj+ LtrfRAJgkaJ9I1Ru Qat6RFIyhEbvYC9mwWTp JNvmPp7pvVnvgOtwKK6l QSHmpywyHQJnyC9tRQXu kIGutZlhAP0tSLFf azxmp848OxJuAXM7ZCHn eCFzF3JvbA4mTrUhJLTy KKVnW5JtdJOnMDftN345 RKxhAoJ3DPEyuyCe U8BeSBCahDelLsI7r4K6 Qt0LCX8UZAC5O6JdExg7 BGSfyJdtXY8ntORnEXgt Ie0vgVqcsLocUG2r STTkvihnUKShvI3kOBUx gFKjbBfpIU1tBUPeosas r222ZzXmFHM3NJCnnIEc J3BqgJ5aVqZrJIKo RCYwU3VcfKTyORfbB803 JGhnErG6ZBXaraNhC5It VPVzyEpmCmO8q5X9Dw7R UDwvdGQ+RZ03gu30 N3NdSocyPnv5GZBaVHZ1 vLJ6zX6kRAOjDAqhp2U6 kAC6Y7OgqnYqcn4tr5zk SGIpNGvnN95jpXKd n3N2SENgzLT0PDLdoEcn NmEcgI44Ifg+PGNvbGdy h0DoIwbmx0hhh5voiSw3 IjMwJSIgdmFsaWdu SSK6x6MbQs11X75oUVsy ZHRoPSIzMCUiIHZhbGln gm7pnA3rEo4+PGNvbCB3 mET1nH2yJkChAwH6 XPybR911UxPctHTcQclk c1rmc2kchRc9CkGsYVLo qmNhvUpoLRX0e9JuGq82 R7OwuAvkz8TsHrl3 xf37nRTan5O5oID9J9Be PUGornasuDUkbGcpGW9k BJBrclunBWDffV8fIBIi P7h7XuErKhQ6PAcm J2RtimR1ILQvuIYyQEQa rUBRwQ1iutqma3bbeolz RsZjPHFxGCa2VZl7KOOj rMzpEhXvTTN6SoH4 ACJ2lGYskV1epWxtwiaf mP0bPlk+FVh4d9frwTDn RA9dhPD4YB54AI14fTHn x5G1zCU7G7PnGGTr qkjavthwmNM5HGOvPMNg pM03Gq3jrQvpPl8kCCYh FKS7IQAmkUIfR0OwyE8k YcLqQLHpOHOfN8Db zPEcRTrtI414QOcnHcC7 ZTOxkcBkS5WeNXSnwOpe OvT0m5F2Jm2CWU81DT77 YQ73oTJrx9C5fCP1 I2NuQYWvgkukpxnoaLR6 NCPtXRBydD77Wp8uxCdm Bk9iCNDmYLK6GUIpeISt Q1PouU0mLdNkTWFo BAMfR2HyuZMnZHypN058 CIjjGkL8OINeshJjP9Tm IACciTxtQkJ4b3A8Ak4A Ba77LH16VL09kSXq b6M3qTH6U5EnMZDtcgod myvljPB0MMCfOLXmwB44 Kw7toQsrTn6pCAIsNBS4 RWQqvISqH3IdrY2h EqQeCFSzZSTpK2YipARz DPqhO206VBsiEtN0IBUr wmDcR0NkYAKyeZdkVgQ5 l7V5Vq4DUEjmqcq0 R9SsMbcdjHK+FE36JDEb FU85fYHavEUgt0hxhYm5 ViZkTWLrLDW3pNnzJTpk a6ZyKOKxR09bbZSc c2U (more content not included)... Normal [facility] C Urineon 03-11-2022 C Urine Urine Culture ordered as a result of parameters set on specific urine dip and urine microsopic results. >3 Organisms Consistent with Contamination Recollection suggested. Normal [facility] Comment on above: Performed By: #### 1 [id number], [id number], [id number], [id number], [id number], [id number], [id number], [id number], [id number] #### [facility] (DEFAULT) [address] [place] [address] .Auto Diff 103-09-2022 Auto [place] % 8 % Normal 11-09 [facility] Comment on above: Performed By: #### 1 [id number], [id number], [id number], [id number], [id number], 5114845, [id number], [id number], [id number], [id number] #### [facility] (DEFAULT) [address] [place] [address] Baso Abs# 0.0 x10 Normal 0.0-0.2 [facility] Comment on above: Performed By: #### 1 [id number], [id number], [id number], [id number], [id number], 0341786, [id number], [id number], [id number], [id number] #### [facility] (DEFAULT) [address] [place] [address] Basophils/100 WBC (Bld) 0.3 % Normal 0.2-2.0 [facility] Comment on above: Performed By: #### 1 [id number], [id number], [id number], [id number], [id number], 3494494, [id number], [id number], [id number], [id number] #### [facility] (DEFAULT) [address] [place] [address] Eos Abs# 0.1 x10 Normal 0.0-0.4 [facility] Comment on above: Performed By: #### 1 [id number], [id number], 5235001, [id number], [id number], 5253867, [id number], [id number], [id number], 8505586 #### [facility] (DEFAULT) [address] [place] [address]6797 Eosinophils/100 WBC (Bld) 1.0 % Normal 0.9-4.0 [facility] Comment on above: Performed By: #### 1 9351254, 00536845, 8580084, 2360672594, 91568596, 3406606, 9207335729, 9151657194, 2469725679, 3662379 #### [facility] (DEFAULT) [address] [place] [address] 73478 Lymph Abs# 2.0 x10 Normal 1.3-2.9 [facility] Comment on above: Performed By: #### 1 2859484, 19334319, 2163135, 9199589630, 06631813, 5791914, 3179215482, 6067076331, 9605564444, 5799752 #### [facility] (DEFAULT) [address] [place] [address] 26512 Lymphocytes/100 WBC (Bld) 35 % Normal 14-48 [facility] Comment on above: Performed By: #### 1 3872033, 71981241, 3252739, 3842337208, 41954735, 5165539, 7925497143, 3365803817, 9981393689, 0616118 #### [facility] (DEFAULT) [address] [place] [address] 12768 [place] Abs# 0.5 x10 Normal 0.0-0.8 [facility] Comment on above: Performed By: #### 1 9039523, 81725992, 2588274, 2243944055, 55080544, 2248192, 9928041618, 5324046561, 6073552015, 6851738 #### [facility] (DEFAULT) [address] [place] [address] 15618 Neut Abs# 3.2 x10 Normal 1.5-9.2 [facility] Comment on above: Performed By: #### 1 3847556, 37806928, 0542700, 5702108167, 40106511, 5007657, 3450903659, 2016294031, 0715897595, 8450369 #### [facility] (DEFAULT) [address] [place] [address] 56379 Neutrophils/100 WBC (Bld) 55 % Normal 44-88 [facility] Comment on above: Performed By: #### 1 0101690, 71402797, 1808154, 6691280561, 07441182, 2386344, 2740125691, 5885253408, 4861160908, 1725476 #### [facility] (DEFAULT) [address] [place] [address] 80478 ABORhon 03-09-2022 ABO and Rh group Nom (Bld) Hx Check: Not Found Anti-A: 4+ Anti-B: 0 Anti-D: 4+ DCon: 0 A1: mf+ B: 4+ ABORh Interp: A POS Invalid Interpretation Code [facility] Comment on above: Performed By: #### 1 7391391, 14167312, 6296799, 6381604832, 45372157, 2349663, 2588764356, 1105908539, 5266490437, 5840099 #### [facility] (DEFAULT) [address] [place] [address] ABORh Retypeon 03-09-2022 ABO and Rh group Nom (Bld) Ordered by Discern. Anti-A: 4+ Anti-B: 0 Anti-D: 4+ DCon: 0 A1: mf+ B: 4+ ABORh Retype: A POS Invalid Interpretation Code [facility] Comment on above: Performed By: #### 1 0072654, 22079368, 6269394, 5424707228, 08665597, 6720599, 4529010892, 5621587906, 4393554528, 0580451 ####[facility] (DEFAULT)[address] [place] [address] CBC w/ Auto Diffon Erythrocyte distribution width (RBC) [Ratio] 13.3 % Normal 11.5-15.0 [facility] Comment on above: Performed By: #### 1 4674682, 52804037, 4262390, 1335752845, 57298710, 0021073, 2167007134, 3397618702, 0071283742, 3140761 #### [facility] (DEFAULT) [address] [place] [address] 99532 Hematocrit (Bld) [Volume fraction] 43.5 % High 33.7-40.4 [facility] Comment on above: Performed By: #### 1 9855115, 62430231, 1125884, 4538257589, 70061890, 8248235, 5678087198, 7689717807, 9041091384, 4667270 #### [facility] (DEFAULT) [address] [place] [address] 49263 Hemoglobin (Bld) [Mass/Vol] 14.1 g/dL Normal 11.3-15.9 [facility] Comment on above: Performed By: #### 1 1781023, 86001233, 0326881, 5244385939, 62224534, 5412795, 4116210139, 0526369729, 9868512194, 0106162 #### [facility] (DEFAULT) [address] [place] [address] Instr WBC 5.7 x10 Invalid Interpretation Code [facility] Comment on above: Performed By: #### 1 7035008, 68034925, 1313551, 6365291189, 00836818, 8544067, 8177923496, 2050473152, 2705337291, 3626850 #### [facility] (DEFAULT) [address] [place] [address] Man Diff? Auto Normal [facility] Comment on above: Performed By: #### 1 5093771, 67440212, 8883344, 5921474350, 30601474, 7376061, 9844104955, 0922426366, 7153173968, 2813841 #### [facility] (DEFAULT) [address] [place] [address] MCH (RBC) [Entitic mass] 28 pg Normal 24-34 [facility] Comment on above: Performed By: #### 1 9076642, 34346345, 9703744, 7635596725, 46367604, 3358142, 6055460886, 6930166063, 6877351140, 2708905 #### [facility] (DEFAULT) [address] [place] [address] 97016 MCHC (RBC) [Mass/Vol] 32 g/dL Normal 26-37 [facility] Comment on above: Performed By: #### 1 9764980, 62118978, 9295680, 1240604706, 02069633, 9869945, 5551305493, 5761709724, 8100615625, 0400578 #### [facility] (DEFAULT) [address] [place] [address] 36836 MCV (RBC) [Entitic vol] 86 fL Normal 81-100 [facility] Comment on above: Performed By: #### 1 5232449, 94553062, 3872468, 0664438521, 51694778, 7358796, 9455681391, 9580830408, 1906502663, 3097863 #### [facility] (DEFAULT) [address] [place] [address] 98627 Platelet 324 x10 Normal 138-427 [facility] Comment on above: Performed By: #### 1 8337992, 06458766, 6985255, 3416033228, 29361108, 8371750, 8569151690, 4287388970, 5561903253, 2777854 #### [facility] (DEFAULT) [address] [place] [address] 49289 Platelet mean volume (Bld) [Entitic vol] 9.8 fL Normal 6.3-10.2 [facility] Comment on above: Performed By: #### 1 2637191, 26640318, 4190675, 2539132829, 06355375, 4364949, 5880293386, 1191724101, 0780696969, 8460267 #### [facility] (DEFAULT) [address] [place] [address] 54208 RBC 5.07 x10 Normal 3.70-5.30 [facility] Comment on above: Performed By: #### 1 7392073, 89626351, 3773453, 8567349633, 43127266, 9748395, 7556695050, 4938790379, 4162956381, 6101964 #### [facility] (DEFAULT) [address] [place] [address] 58714 WBC 5.7 x10 Normal 3.5-10.5 [facility] Comment on above: Performed By: #### 1 5883242, 94275820, 7540620, 7138792791, 07609861, 1942509, 2698694359, 0122517260, 7290103004, 8108179 #### [facility] (DEFAULT) [address] [place] [address] 39748 CMP Standardon 03-09-2022 Albumin [Mass/Vol] 4.5 g/dL Normal 3.5-5.0 [facility] Comment on above: Performed By: #### 1 7270498, 94881350, 4739327, 0391439441, 13058760, 3042718, 8272848650, 2914465010, 5402750760, 0397295 #### [facility] (DEFAULT) [address] [place], [place] [address] Albumin/Globulin [Mass ratio] 1.2 {ratio} Low 1.4-2.6 [facility] Comment on above: Performed By: #### 1 0448296, 63937670, 9459306, 9945392185, 56967813, 4700537, 7683465623, 6565416441, 6898433311, 2561036 #### [facility] (DEFAULT) [address] [place] [address] Alk Phos 52 IU/L Normal 32-91 [facility] Comment on above: Performed By: #### 1 6085510, 91263315, 9217705, 4894550400, 54457789, 0541847, 2273923785, 2634471846, 4108628548, 5578289 #### [facility] (DEFAULT) [address] [place] [address] 96084 ALT [Catalytic activity/Vol] 37.0 U/L Normal 14.0-54.0 [facility] Comment on above: Performed By: #### 1 7812179, 47406193, 4042692, 5023694531, 55981137, 7606040, 8012406303, 0425368073, 1928479970, 4687776 #### [facility] (DEFAULT) [address] [place] [address] 29531 Anion gap [Moles/Vol] 18.0 mmol/L Normal 5.0-19.0 [facility] Comment on above: Performed By: #### 1 8230067, 37132723, 2841914, 0562197483, 44455341, 9078463, 3248594565, 1014685990, 3735850409, 2942985 #### [facility] (DEFAULT) [address] [place] [address] 69479 AST [Catalytic activity/Vol] 29 U/L Normal 15-41 [facility] Comment on above: Performed By: #### 1 0757533, 14682682, 8064844, 7807845314, 09051477, 7628063, 2968423148, 5325672650, 9115517071, 5380129 #### [facility] (DEFAULT) [address] [place] [address] 28292 Bili Total 0.7 mg/dL Normal 0.3-1.2 [facility] Comment on above: Performed By: #### 1 7077980, 98709820, 7399886, 1046465140, 80082472, 1111510, 8567995939, 7955069081, 0794174803, 3244888 #### [facility] (DEFAULT) [address] [place] [address] 65011 Calcium [Mass/Vol] 9.4 mg/dL Normal 8.9-10.3 [facility] Comment on above: Performed By: #### 1 6582514, 71742637, 2010230, 6931524072, 40947378, 8111241, 4129304551, 0243916024, 1073593850, 1541960 #### [facility] (DEFAULT) [address] [place] [address] 69388 Chloride [Moles/Vol] 100 mmol/L Low 101-111 [facility] Comment on above: Performed By: #### 1 1954981, 89616857, 7400907, 8188103507, 82547073, 9926865, 5074366284, 7941251964, 0256947188, 3169133 #### [facility] (DEFAULT) [address] [place] [address] 48401 CO2 [Moles/Vol] 24 mmol/L Normal 21-32 [facility] Comment on above: Performed By: #### 1 5217894, 79636167, 8629215, 1612455585, 36085308, 0581520, 3694313622, 4697613459, 7125520480, 2928453 #### [facility] (DEFAULT) [address] [place] [address] Creatinine [Mass/Vol] 0.75 mg/dL Normal 0.60-1.30 [facility] Comment on above: Performed By: #### 1 2046025, 89645020, 8188018, 4507059917, 66553791, 8894092, 0498622778, 3981475069, 4811184060, 7761024 #### [facility] (DEFAULT) [address] [place] [address] eGFR AA >60 Invalid Interpretation Code [facility] Comment on above: Result Comment: Surgical Manager susie Kidney disease could be indicated at eGFRs of less than 60 ml/min/1.73m2. Kidney Failure is indicated at less than 15 ml/min/1.73m2 Performed By: #### 1 2339588, 26587950, 6713876, 2765975124, 16897317, 7564925, 4013563211, 1837908895, 7275737316, 1566985 #### [facility] (DEFAULT) [address] [place] [address] eGFR Non AA >60 Invalid Interpretation Code [facility] Comment on above: Performed By: #### 1 4802918, 74662355, 1982465, 7546300220, 23589756, 5033323, 1246596531, 7622092808, 4974266530, 3896869 #### [facility] (DEFAULT) [address] [place] [address] 40377 Globulin (S) [Mass/Vol] 3.9 g/dL Normal 1.5-4.3 [facility] Comment on above: Performed By: #### 1 6554915, 40087951, 6087555, 1981661908, 26114895, 6002758, 7253395921, 3778430458, 4042361764, 6252023 #### [facility] (DEFAULT) [address] [place] [address] 47119 Glucose [Mass/Vol] 98.0 mg/dL Normal 74.0-118.0 [facility] Comment on above: Performed By: #### 1 5290379, 20223464, 5603683, 2779584592, 45815960, 4996199, 9551776389, 1043950590, 0002460960, 7921840 #### [facility] (DEFAULT) [address] [place] [address] 81386 Osmolality 274 mOsm/L Invalid Interpretation Code [facility] Comment on above: Performed By: #### 1 8098994, [id number], 0591483, 9678627320, 51144556, 9093308, 9971989740, 3365653397, 0917953824, 6099905 #### [facility] (DEFAULT) [address] [place] [address] 62524 Potassium [Moles/Vol] 3.5 mmol/L Low 3.6-5.1 [facility] Comment on above: Performed By: #### 1 [id number], 55163733, 1416957, 0135040943, 05832960, 4359178, 2456486840, 7203615135, 4000848472, 1603948 #### [facility] (DEFAULT) [address] [place] [address] 97581 Protein [Mass/Vol] 8.4 g/dL High 6.5-8.1 [facility] Comment on above: Performed By: #### 1 2181565, 47331953, 6870687, 2404484579, 35099699, 4837761, 6859244635, 0379198604, 4787273372, 6347581 #### [facility] (DEFAULT) [address] [place] [address] 29422 Sodium [Moles/Vol] 138.0 mmol/L Normal 136.0-144.0 [facility] Comment on above: Performed By: #### 1 4625320, 89871014, 1411108, 9304854589, 91575694, 5990958, 9293868852, 5303327900, 1191894007, 1775264 #### [facility] (DEFAULT) [address] [place] [address] 91092 Urea nitrogen [Mass/Vol] 7 mg/dL Low 8-26 [facility] Comment on above: Performed By: #### 1 5768003, 50586804, 3701465, 3227412882, 32367709, 3784366, 1591540128, 9485605445, 0764781380, 8851246 #### [facility] (DEFAULT) [address] [place] [address] 18289 Urea nitrogen/Creatinine [Mass ratio] 9.0 mg/mg Normal 4.6-16.2 [facility] Comment on above: Performed By: #### 1 1435923, 52766796, 8715356, 7663903563, 00337912, 9206869, 6278629451, 4642637784, 2693814751, 1195537 #### [facility] (DEFAULT) [address] [place] [address] 79684 ED Clinical Summaryon 2021 ED Clinical Summary [facility] - Emergency Department [address] [place] [address] ED Clinical Summary PERSON INFORMATION Name: DIANE JOYCE Age: 26 Years Sex: FEMALE : 1995 MRN: Acct#: Visit Reason: Vaginal bleeding - < 20 wks ; BLEEDING, Arrival: 03/09/2022 15:56:59 Discharge: 03/09/2022 18:28:00 LOS: 000 02:32 Check In: 03/09/2022 15:56:59 Checkout:03/09/2022 18:28:00 Address: [address] [place] [address] PCP: Provider, None PROVIDER INFORMATION Provider Role [...] Medication Allergies PHYSICIAN DOCUMENTATION Patient: DIANE JOYCE [facility]: [id number] Age: 26 years Sex: FEMALE : 1995 [...] or bladder. States that she follows with estimator and drafter in [place] Dr. Min, contacted his office and they [...] intact, SARINA: -Sclera conjunctiva: Unremarkable. NECK: -Supple (oehb-gd-jruko): non-tender. CARD: -Rate and rhythm: Regular -Edema: [...] the patient recommended close follow-up with her estimator and drafter and outpatient beta hCG. In the meantime no strenuous ac (more content not included)... Normal [facility] ED Note - Physicianon 2021 ED [...] or bladder. States that she follows with estimator and drafter in [place] Dr. Min, contacted his office and they [...] intact, SARINA: -Sclera conjunctiva: Unremarkable. NECK: -Supple (xspo-fw-krfnw): non-tender. CARD: -Rate and rhythm: Regular -Edema: [...] the patient recommended close follow-up with her estimator and drafter and outpatient beta hCG. In the meantime no strenuous activity, sexual activity if having any worsening issues I recommended he return to the emergency department or going directly to estimator and drafter. Patient indicated she understood was in agreement. [...] AA >60 (more content not included)... Normal [facility] ED Note-Nursingon 03-09-2022 Beta HCG ( test) Ql (U) Patient arrives with c/o vaginal bleeding during . States she took a at home test a week ago and estimates being 5 to 6 weeks along. Patient has some mild cramping yesterday 11/07 at has since went away and light vaginal bleeding today. This is the patients second , 1 live . Normal [facility] ED Patient Summaryon 022 ED Patient Summary [facility] - Emergency Department [address] [place] [address] PATIENT DISCHARGE INSTRUCTIONS Patient Information Name: DIANE [...] (N93.9) Vaginal bleeding - < 20 wks ([id number]) Prescription Information: If you have been given a prescription for narcotics, seek immediate medical attention if you have any difficulty breathing or any sudden status changes such as confusion and sleepiness. If you or anyone you know is experiencing suicidal thoughts, mental health, alcohol and/or drug addiction problems; contact the [facility] 21/05 Crisis Hotline -Text 7CJPU rl [phone]. If you received any narcotics, sedation, or [...] documents With: Address: When: Follow-up with your estimator and drafter for reevaluation next few days. Within 1 to 2 days Comments: Follow-up with estimator and drafter for reevaluation next few days for reevaluation and outpatient quantitative hCG. Return immediately for any worsening issues such as increasing abdominal pains, increasing vaginal bleeding, fevers, or any other problems. 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 It is important for you to follow up with a doctor, nurse practitioner, or physician?s virtual customer assistant for ongoing care. If your symptoms [...] so we can reach you if necessary. [facility] has provided you with a complete list of medications post discharge. Please inform your lightning rod erector/provider of your visit and for further instruction [...] The sec (more content not included)... Normal [facility] Extra Greenon 03-09-2022 Tube Collected Yes Invalid Interpretation Code [facility] Comment on above: Performed By: #### 1 8017527, 75423966, 2639633, 8668123895, 95907576, 6893164, 5656616301, 5074284630, 3758558266, 2779570 #### [facility] (DEFAULT) [address] [place] [address] 45236 PT/PTTon 03-09-2022 INR Coag (PPP) [Relative time] 0.95 {INR} Normal 0.91-1.11 [facility] Comment on above: Performed By: #### 1 7344518, 05035428, 3426945, 6981554326, 06602558, 9873368, 7278105473, 0440771392, 3918278344, 5880845 #### [facility] (DEFAULT) [address] [place] [address] 31230 PT 10.3 second(s) Normal 9.7-11.8 [facility] Comment on above: Performed By: #### 1 7674851, 87454136, 0499446, 0244614333, 63255898, 0136751, 4698371032, 6402473670, 3616622826, 0991523 #### [facility] (DEFAULT) [address] [place] [address] 13616 PTT 34 second(s) Normal 25-35 [facility] Comment on above: Performed By: #### 1 5839685, 51201135, 4872916, 3549233533, 68874914, 6211501, 6794498520, 3536087231, 4265252885, 0709327 #### [facility] (DEFAULT) [address] [place] [address] RhIG.on 03-09-2022 RhIG. No. Vials RhI RhIG Candidate?: No Date to Give: [id number] RhIG Status: RhIG Ready [facility] Comment on above: Performed By: #### 1 5159578, 76535432, 4484847, 3140476983, 47613586, 8568163, 7470922861, 7952359056, 2041944742, 6198683 ####[facility] (DEFAULT)[address] [place] [address] UA Libfc8te 03-09-2022 UA Amorph. 1+ [facility] Comment on above: Order Comment: Urina lysis Microscopic order added on by [employer] Expert Rules system. Performed By: #### 5 1125896, 2581947, [id number] ####[facility] (DEFAULT)[address] [place] [address] UA Bacteria 2+ [facility] Comment on above: Order Comment: Urina lysis Microscopic order added on by [employer] Expert Rules system. Performed By: #### 5 1409299, 9741101, [id number] ####[facility] (DEFAULT)[address] [place] [address] UA Mucous 3+ [facility] Comment on above: Order Comment: Urina lysis Microscopic order added on by [employer] Expert Rules system. Performed By: #### 5 6921079, 6660668, [id number] ####[facility] (DEFAULT)[address] [place] [address] UA RBC >100 [facility] Comment on above: Order Comment: Urina lysis Microscopic order added on by [employer] Expert Rules system. Performed By: #### 5 5564262, 6760167, 1276883874 ####[facility] (DEFAULT)[address] [place] [address] UA Squam Epi Many [facility] Comment on above: Order Comment: Urina lysis Microscopic order added on by [employer] Rules system. Result Comment: DMITRY VERGARA RN IN ER. RUN UNINALYSIS AND CULTURE ON THIS SPECIMEN. NO RECOLLECT. Performed By: #### 5 0035185, 5014503, [id number] ####[facility] (DEFAULT)[address] [place] [address] 10185 UA WBC 3-5 Normal [facility] Comment on above: Order Comment: Urina lysis Microscopic order added on by [employer] Rules system. Performed By: #### 5 4678468, 2034225, [id number] ####[facility] (DEFAULT)[address] [place] [address] 89499 UA w Culture if Ind Standard on 03-09-2022 Breakpoint UA [facility] Comment on above: Performed By: #### 1 7121606, 80044485, 2861503, 5798517161, 81648639, 2414634, 0211008124, 6443615314, 6583764111, 1295849 #### [facility] (DEFAULT) [address] [place] [address] 95370 Color (U) Yellow Normal [facility] Comment on above: Performed By: #### 1 8394728, 55697142, 5259844, 8344638074, 01989242, 1087658, 5707431282, 0701290709, 1297933657, 9229120 #### [facility] (DEFAULT) [address] [place] [address] 03714 Culture? Indicated Invalid Interpretation Code [facility] Comment on above: Result Comment: Resu lt created by rule GL_MAGR_ADD_UA_CULT Result created by rule GL_MAGR_ADD_UA_CULT Result created by rule GL_MAGR_ADD_UA_CULT1 Result created by rule GL_MAGR_ADD_UA_CULT Performed By: #### 1 4125492, 81763422, 8307823, 3478102524, 66104021, 2827508, 3006902166, 0445479062, 8154241448, 3551777 #### [facility] (DEFAULT) [address] [place] [address] Glucose (U) [Mass/Vol] Negative Normal [facility] Comment on above: Performed By: #### 1 9987303, 35293682, 3290076, 6625973997, 82980618, 4232186, 1412040992, 5096367392, 8643104239, 7948505 #### [facility] (DEFAULT) [address] [place] [address] Ketones Ql (U) 40 Normal [facility] Comment on above: Performed By: #### 1 6966799, 88695330, 6685489, 6064567827, 96486157, 0050453, 6504302701, 2055870180, 7262375402, 6715988 #### [facility] (DEFAULT) [address] [place] [address] Micro? Indicated Invalid Interpretation Code [facility] Comment on above: Result Comment: Resu lt created by rule GL_MAGR_ADD_UA_MICRO Performed By: #### 1 8780775, 29457169, 8163211, 9838962903, 21061848, 6425821, 7304714791, 9331903472, 7327331774, 9095506 #### [facility] (DEFAULT) [address] [place] [address] 18284 UA Bilirubin Negative Normal [facility] Comment on above: Performed By: #### 1 8161435, 31215923, 8278961, 9313657428, 50025844, 4679040, 3381497126, 3982010520, 9784661685, 4404195 #### [facility] (DEFAULT) [address] [place] [address] 93685 UA Blood LARGE Abnormal NEGATIVE [facility] Comment on above: Performed By: #### 1 5932664, 34462190, 6750579, 5807769978, 21794861, 6267737, 6125759211, 6214828659, 0413269492, 9723822 #### [facility] (DEFAULT) [address] [place] [address] 06936 UA Clarity SL CLOUDY Abnormal CLEAR [facility] Comment on above: Performed By: #### 1 6756417, 47080350, 6098544, 8731904671, 99064433, 5318280, 9190140687, 3293813847, 6322086444, 5975662 #### [facility] (DEFAULT) [address] [place] [address] 66965 UA Leuk Est TRACE Abnormal NEGATIVE [facility] Comment on above: Performed By: #### 1 5034593, 19544720, 9544047, 0174805638, 66879397, 3386820, 8545434873, 2625780433, 3285214415, 4804623 #### [facility] (DEFAULT) [address] [place] [address] 14215 UA Nitrite Negative Normal NEGATIVE [facility] Comment on above: Performed By: #### 1 2024768, 47212313, 2530560, 3117149476, 39890215, 7495093, 3524613698, 2887816906, 1852218899, 9900591 #### [facility] (DEFAULT) [address] [place] [address] 26845 UA pH 6.5 Normal 5-8 [facility] Comment on above: Performed By: #### 1 1977605, 97745486, 7050729, 8245374658, 45910798, 0864726, 9389728003, 8982823410, 9683733777, 9606253 #### [facility] (DEFAULT) [address] [place] [address] 93010 UA Protein Negative Normal NEGATIVE [facility] Comment on above: Performed By: #### 1 7407509, 78145653, 7960671, 7382817874, 03266813, 9305642, 7557429961, 2088008245, 7454775221, 9048665 #### [facility] (DEFAULT) [address] [place] [address] 00487 UA Spec Grav 1.015 Normal 1.001-1.035 [facility] Comment on above: Performed By: #### 1 2351562, 21932144, 4286812, 1356674712, 13803572, 8516227, 7658623288, 9515758563, 6881318826, 7898115 #### [facility] (DEFAULT) [address] [place] [address] UA Urobilinogen 0.2 mg/dL Normal 0.2-1.0 [facility] Comment on above: Performed By: #### 1 2540746, 52549389, 8600814, 2913228075, 37595857, 9415585, 1988837912, 9308548038, 3363410027, 5579467 #### [facility] (DEFAULT) [address] [place] [address] Urine Source Clean Catch Normal [facility] Comment on above: Performed By: #### 1 9060365, 71333021, 5257747, 0661537950, 39916025, 0080464, 1336659152, 2143227466, 4085305490, 0551659 #### [facility] (DEFAULT) [address] [place] [address] US 1st Trimesteron 03-09-2022 US 1st Trimester [...] Sebastian Guzman 03/09/22 6:10 pm Technologist: PM [facility] US Transvaginalon 03-09-2022 US Transvaginal EXAM: US [...] Sebastian Guzman 03/09/22 6:10 pm Technologist: PM [facility] hCG Quantitativeon hCG Quantitative 7.1 mIU/mL High 0.0-0.6 [facility] Comment on above: Result Comment: Post -Menopausal Reference Range is: 0.1-11.6 mIU/mL Performed By: #### 1 5042349, 83026764, 8873613, 4837013664, 76344008, 6668809, 6108374147, 2348644259, 9810456908, 3125482 #### [facility] (DEFAULT) [address] [place] [id number] Social History Date Type Detail Facility Start: 12-13-2023 Alcohol intake Lifetime non-d иван (finding) [facility] Start: 12-28-2023 [facility] Start: 03-12-2023 Sex Assigned At N [facility] Other Start: 03-12-2023 Tobacco smoking status NHIS Never smoked tobacco [facility] Start: 03-12-2023 Tobacco use and exposure Smokeless tobacco non-user [facility] Start: 03-12-2023 History of Social function [facility] Start: 1995 Sex Assigned At Female F [facility] Start: 1995 Sex Assigned At Not on file N [facility] Unknown if ever smoked [employer] Other Vital Signs Date Time Vital Sign Value Performing Clinician Facility 12-13-2023 15:00-0500 Body mass index (BMI) [Ratio] 46.69 kg/m2 [facility] Nurse [facility] 12-13-2023 15:00-0500 Body weight 123.38 kg [facility] Nurse [facility] 12-13-2023 15:00-0500 Diastolic blood pressure 78 mm[Hg] [facility] Nurse [facility] 12-13-2023 15:00-0500 Systolic blood pressure 128 mm[Hg] [facility] Nurse [facility] 05-15-2023 18:30-0400 Body height 161.29 cm Linsey Witt Other [employer] Other 05-15-2023 18:30-0400 Body mass index (BMI) [Ratio] 43.41 kg/m2 Linsey Witt Other [employer] Other 05-15-2023 18:30-0400 Body temperature 99.2 [degF] Linsey Witt Other [employer] Other 05-15-2023 18:30-0400 Body weight 112.95 kg Linsey Witt Other [employer] Other 05-15-2023 18:30-0400 Respiratory rate 18 /min Linsey Witt Other [employer] Other 05-15-2023 18:30-0400 SaO2% (BldA) [Mass fraction] 99 % Linsey Witt Other [employer] Other 05-09-2023 11:00-0400 Body height 161.29 cm Gissel Santana Other [employer] Other 05-09-2023 11:00-0400 Body mass index (BMI) [Ratio] 43.59 kg/m2 Gissel Santana Other [employer] Other 05-09-2023 11:00-0400 Body weight 113.4 kg Gissel Santana Other [employer] Other 05-09-2023 11:00-0400 Diastolic blood pressure 83 mm[Hg] Gissel Santana Other [employer] Other 05-09-2023 11:00-0400 Systolic blood pressure 119 mm[Hg] Gissel Santana Other [employer] Other 04-12-2023 09:00-0400 Body height 161.29 cm Gissel Santana Other [employer] Other 04-12-2023 09:00-0400 Body mass index (BMI) [Ratio] 43.59 kg/m2 Gissel Santana Other [employer] Other 04-12-2023 09:00-0400 Body weight 113.4 kg Gissel Santana Other [employer] Other 04-12-2023 09:00-0400 Diastolic blood pressure 88 mm[Hg] Gissel Santana Other [employer] Other 04-12-2023 09:00-0400 Systolic blood pressure 129 mm[Hg] Gissel Lamin Other [employer] Other 10-11-2022 02:06-0500 Body weight 111.[address] ESTELLA MIN . [facility] Comment on above: Performed By: #### AFPMAT #### [facility] [address] [address] [address] Alexsander Dickinson Clinical Notes 03-09-2022 to 12-13-2023 Meenakshi Rosenthal [...] or undercooked meat, and stay away from [facility]. Patient has also been advised to [...] Meenakshi Rosenthal MA documented in this encounter [facility] 05-15-2023 Evaluation note Encounter Date Diagnosis Assessment [...] understanding and is agreeable to treatment plan. [employer] Other 07-12-2023 Evaluation note* Encounter Date Diagnosis Assessment Notes Treatment Notes Treatment Clinical Notes Apr, Anxiety disorder, unspecified (ICD-10 - F41.9) Pt states that she, and her , agree that she is doing better on the medication. Continues to have stress, but is dealing more appropriately. Would like to continue this med and this dose. f/u6 months, sooner if needed. [employer] Other 06-15-2023 Evaluation note* Encounter Date Diagnosis [...] help for overwhelm. followup in 1 month [employer] Other 05-12-2022 NoteEducation Materials Cardiovascular Hypertension, Adult [...] without skin, beans, e (more content not included)...[facility] noteNo assessment information availableSt. [facility] Work Phone: Evaluation noteNo InformationNortGrand View Health VideoNot.es Other Evaluation note* Diagnosis Missed menses documented [facility] N[facility] - [facility]orted* Type Description Date Surgical History C-sect 2019 Surgical History C-sect 2022 [facility] [employer] Other History general Narrative - Reported* Type Description Date Medical History Anxiety disorder, unspecified Surgical History C-sect 2019 Surgical History C-sect 2022 Hospitalization History SEE SURGICAL HX [facility] [employer] Other History general Narrative - Reported* Type Description Date Medical History Anxiety disorder, unspecified Medical History Gestational diabetes Surgical History C-sect 2019 Surgical History C-sect 2022 Hospitalization History SEE SURGICAL HX [employer] Other Summary Purpose Family History No Family [...] DATE CREATED AUTHOR AUTHOR'S ORGANIZ ATION 02/15/2023 [facility] DATE CREATED AUTHOR AUTHOR'S ORGANIZ ATION 05/24/2023 [facility] DATE CREATED AUTHOR AUTHOR'S ORGANIZ ATION 03/11/2024 [facility] EPIC REASON FOR VISIT (unrecogniz ed section and content) Reason Comments Amenorrhea Care Teams (unrecognized sec tion and content) Team Status: Inactive Member Role Status Dates Linsey Witt APRN Attending Provider Active Voice Professor Relationship Specialty Start Date End Date Gissel Santana MD [address] [place] [phone] PCP - General Family Medicine 04/02/23 [...] BE BASED ON THE PRIMARY CLINICAL RECORDS. [employer] provides no warranty or guarantee of the accuracy or completeness of information in this document.
== END 2024-04-10 08:29 | disposition home or self-care (01) ==
LOC: NOMS 08:28
PROVIDERS: Visit Provider Obstetrics & Gynecology
DX: O44.43 Low lying placenta NOS or without hemorrhage, third trimester (principal); Z36.2 Encounter for other antenatal screening follow-up; Z3A.26 26 weeks gestation of pregnancy
CPT/HCPCS: 76816; 76817

== ENCOUNTER 2024-04-24 09:28 | Outpatient (OUT) | payer BC, SELFPAY ==
--- NOTE | 2024-04-24 09:30 | US_ITS ---
[address] [address] Patient Name: VADIM CONSTANTINO MRN: [id number] date: 1995 Sex: F Assigned Patient Location: US Current Patient Location: US Accession/Order Number: [id number] Exam Date: 04/24/2024 09:30 Report Date: 04/24/2024 09:59 At the request of: ESTELLA BUENO Procedure: US OB growth EXAMINATION: US OB growth HISTORY: Gestational diabetes mellitus O24.419 COMPARISON: No relevant comparison available. FINDINGS: Heart Rate: 154 bpm Amniotic Fluid Volume: 14.4 cm. Largest fluid pocket 5.9 cm Number: 1 Position: Breech presentation, oblique lie BIOMETRY: BPD: 6.88 cm cm; 27 weeks 5 days; 27.30 %% HC: 26.97 cm cm; 29 weeks 3 days; 64.20 %% AC: 25.44 cm cm; 29 weeks 4 days; 86.60 %% FL: 5.54 cm cm; 29 weeks 1 day; 70.30 %% EFW: 1258.92 g; 3 lbs. 0 oz. 85.40 % FL/AC: 21.78 FL/BPD: 80.52 HC/AC: 1.06 GESTATIONAL AGE: Age by EDC: 20 weeks 0 days NILE by EDC: 2024-07-17 Age by US: 29 weeks 0 days NILE by US: 2024-07-10 US/US OB growth IMPRESSION: Normal interval growth Electronically authenticated by: SEBASTIAN HENRY Date: 04/24/2024 09:59
--- OUTSIDE RECORDS SUMMARY | 2024-04-24 09:50 | XMS_ITS ---
Patient Summarization (C-CDA 2.1 CCD) Created on: April 24, 2024 DIANE JOYCE : 1995 Sex: Female Author Organization Sample organization Care Team Providers Care Residential Program Worker Name Role Phone MECHELLE ., DR SORIA [...] Unavailable ZIEBER, DR DEE Green Consult[employer] Unavailable SANATNA, DR GISSEL Teresa Primary Care Unavailable MECHELLE [...] Attending Unavailabl e KARASIK ., DR MONTENEGRO Consulting Unavailabl e KARASIK ., DR MONTENEGRO Admitting Unavailabl e SANTANA, DR GISSEL Teresa Primary Care Unavailable KARASIK ., DR MONTENEGRO Consulting Unavailabl e KARASIK ., DR MONTENEGRO Admitting Unavailabl e KARASIK ., DR MONTENEGRO Attending Unavailjudith e Sebastian [...] KARASIK ., DR MONTENEGRO Admitting Unavailjudith e ESTHER, DR GISSEL Teresa Primary Care Unavailable KARASIK ., DR MONTENEGRO Admitting Unavailabl e KARASIK ., DR MONTENEGRO Attending Unavailabl e HOY ., DR SHOEMAKER Consulting Unavailable KARASIK ., DR MONTENEGRO Consulting Unavailabl e MECHELLE ., DR SORIA Consulting Unavailable ZIEBER, DR DEE Green Consult[employer] Unavailable LISSETT BAILEY Consulting Unavailable YOEL MAY Consulting Unavailable SANTANA, [...] Primary Care Provider ESTELLA MIN Attending Unavailable MECHELLE, ESTELLA Attending Unavailable JULITA NEW Attending Unavailable MECHELLE, ESTELLA Attending Unavailable Encounters Encounter Date Encounter Type Care Provider Facility Start: 04-17-2024 End: 04-17-2024 ambulatory ESTELLA MECHELLE Not Available Start: 03-10-2024 End: 03-10-2024 ambulatory JULITA NEW [...] 11-06-2023 End: 11-06-2023 ambulatory Gissel Santana Other [facility] Other Start: 11-06-2023 Encounter by donald Santana [facility] Start: 05-22-2023 End: 05-22-2023 ambulatory Olive Howard Other [facility] Other Start: 05-22-2023 Telephone encounter Olive GARC[facility] Start: 05-15-2023 End: 05-15-2023 ambulatory Linsey Witt Facility:[facility] Start: 05-15-2023 End: 05-15-2023 Departed Referred TERESA Witt Work Phone: [facility] [place] Work Phone: Start: 05-15-2023 End: 05-15-2023 ambulatory CABINET [employer]OUNTER Linsey Witt Work Phone: [facility] Work Phone: Start: 05-15-2023 Office outpatient vi sit 25 minutes Linsey Witt [facility] Start: 05-09-2023 End: 05-09-2023 ambulatory Gissel Santana Other [facility] Other Start: 05-09-2023 Office outpatient vi sit 15 minutes Gissel Santana [facility] Start: 04-12-2023 End: 04-12-2023 ambulatory Gissel Santana Other [facility] Other Start: 04-12-2023 Encounter for genera l adult medical examination without abnormal findings Gissel Santana [facility] Start: 04-12-2023 Periodic preventive med est patient 18-39 yrs Gissel Santana [facility] Start: 02-15-[address] ESTELLA MIN [...] Start: 01-22-2023 End: 01-22-[address] GISSEL SANTAAN Facility:[facility] Start: 01-18-2023 End: 01-18-[address] [...] Payer Category Payer Unknown BCBS BCBS [id number] 2020-Present [phone] [address] [place] [address] [id number] 1995 Unknown [id number] 2.16.840.1.716525.3.579.2.593 1995 Unknown [id number] 2.16.840.1.549671.3.579.2.593 1994 Unknown [id number] 2.16.840.1.990610.3.579.2.593 1994 Unknown [id number] 2.16.840.1.142486.3.579.2.593 1994 Unknown [id number] 2.16.840.1.341091.3.579.2.593 1994 Unknown [id number] 2.16.840.1.560907.3.579.2.593 1994 Unknown [id number] 2.16.840.1.787599.3.579.2.593 1994 Unknown [id number] 2.16.840.1.391511.3.579.2.593 1994 Unknown [id number] 2.16.840.1.050662.3.579.2.593 1994 Unknown [id number] 2.16.840.1.034399.3.579.2.593 1994 Unknown [id number] 2.16.840.1.772615.3.579.2.593 1994 Unknown [id number] 2.16.840.1.192295.3.579.2.593 1994 Unknown [id number] 2.16.840.1.440219.3.579.2.593 1994 Unknown [id number] 2.16.840.1.115017.3.579.2.593 1994 Unknown [id number] 2.16.840.1.511053.3.579.2.593 1994 Unknown [id number] 2.16.840.1.756581.3.579.2.593 1994 Unknown [id number] 2.16.840.1.391459.3.579.2.593 1994 Unknown [id number] 2.16.840.1.083639.3.579.2.593 1994 Unknown [id number] 2.16.840.1.503252.3.579.2.593 1994 Unknown [id number] 2.16.840.1.677421.3.579.2.593 1994 Unknown [id number] 2.16.840.1.696146.3.579.2.593 1994 Unknown [id number] 2.16.840.1.129196.3.579.2.593 1994 Unknown [id number] 2.16.840.1.578509.3.579.2.593 1994 Unknown [id number] 2.16.840.1.409800.3.579.2.593 1994 Unknown [id number] 2.16.840.1.566592.3.579.2.1259 1994 Unknown [id number] 2.16.840.1.479897.3.579.2.1259 1994 Unknown [id number] 2.16.840.1.212377.3.579.2.1259 1994 Unknown [id number] 2.16.840.1.724096.3.579.2.1259 1994 Unknown [id number] 2.16.840.1.713170.3.579.2.1259 1960 Self-pay 1960 Unknown [id number] Unknown [id number] 2.16.840.1.490249.3.579.2.593 Unknown [id number] 2.16.840.1.299440.3.579.2.531 Plan of Treatment Date Care Activity Detail Author Start: 01-14-2024 End: 01-14-2024 Patient encounter procedure 01/14/2024 8:30 AM EDT Routine [facility] [address] [place] [address] Estella Min DO [address] [place] [address] [facility] Start: 12-13-2023 End: 12-13-2024 ABO/Rh ABO/Rh Lab Routine Missed menses Expected: 12/13/2023 (Approximate), Expires: 12/13/2024 [facility] Comment on above: Expected: 12/13/2023 (Approximate), Expires: 12/13/2024 Start: 12-13-2023 End: 12-13-2024 Blood type and Indirect antibody screen panel - Blood Type and screen Lab Routine Missed menses Expected: 12/13/2023 (Approximate), Expires: 12/13/2024 [facility] Work Phone: Comment on above: Expected: 12/13/2023 (Approximate), Expires: 12/13/2024 Start: 12-13-2023 End: 12-13-2024 Thyroid panel with tsh Thyroid panel with tsh Lab Routine Missed menses Expected: 12/13/2023 (Approximate), Expires: 12/13/2024 [facility] Comment on above: Expected: 12/13/2023 (Approximate), Expires: 12/13/2024 Start: 12-13-2023 End: 12-13-2024 US Pelvis transvaginal US OB transvaginal Imaging Routine Missed menses Expected: 12/13/2023 (Approximate), Expires: 12/13/2024 [facility] Comment on above: Expected: 12/13/2023 (Approximate), Expires: 12/13/2024 Start: 05-15-2023 Throat culture Throat Culture [facility] Bacteria identified in Urine by Culture Urine culture Microbiology Routine Missed menses Ordered: 12/13/2023 [facility] Comment on above: Ordered: 12/13/2023 CBC W Auto Different ial panel - Blood CBC and differential Lab Routine Missed menses Ordered: 12/13/2023 [facility] Comment on above: Ordered: 12/13/2023 Hemoglobin A1c/Hemoglobin.total in Blood Hemoglobin A1c Lab Routine Missed menses Ordered: 12/13/2023 [facility] Comment on above: Ordered: 12/13/2023 Hepatitis B virus surface Ag [Presence] in Serum or Plasma by Immunoassay Hepatitis B surface antigen Lab Routine Missed menses Ordered: 12/13/2023 [facility] Comment on above: Ordered: 12/13/2023 Hepatitis C virus Ab [Presence] in Serum or Plasma by Immunoassay Hepatitis C antibody Lab Routine Missed menses Ordered: 12/13/2023 [facility] Comment on above: Ordered: 12/13/2023 HIV-1/HIV-2 antigen/antibody combination immunoassay HIV-1 and HIV-2 antibodies Lab Routine Missed menses Ordered: 12/13/2023 [facility] Comment on above: Ordered: 12/13/2023 Reagin Ab [Presence] in Serum by RPR RPR Lab Routine Missed menses Ordered: 12/13/2023 [facility] Comment on above: Ordered: 12/13/2023 Rubella antibody, IgG Rubella an tibody, IgG Lab Routine Missed menses Ordered: 12/13/2023 [facility] Comment on above: Ordered: 12/13/2023 Problems Active [...] (U)o n 12-13-2023 Preg Test, Ur Positive [facility] No Panel Informationon 12-13 Interpretation and review of laboratory results Abnormal [facility] Urinalysis macro (dipstick) panel (U)on 12-13-2023 Bilirubin, UA Negative Negative - 4(70) +++ mg/dL [facility] Blood, UA Negative Negative - 50 Sal/mcL [facility] Clarity, UA Clear [facility] Color, UA Yellow [facility] Glucose, UA Negative Negative - 1999(110) ++++ mg/dL [facility] Ketones, UA Positive Negative - 160(16) ++++ mg/dL [facility] Leukocytes, UA Negative Negative - 500+++ Lizzy/mcL [facility] Nitrite, UA Negative Negative - Positive [facility] pH, UA 7.0 5 - 9 [facility] Protein, UA Positive Negative - 1999(20) ++++ mg/dL [facility] Spec Grav, UA 1.030 1 - 1.03 [facility] Urobilinogen, UA 0.2 0.2 - 12 mg/dL [facility] Quick Strepon 05-15-2023 S. pyogenes Org specific cx Ql (Throat) Negative [facility] Other Quick Strep [facility] Other Throat Cultureon 05-15-2023 Throat culture Heavy Normal Respiratory John 2 Days PERFORMED BY: [place] [address] PATHOLOGIST [employer]EW[employer] SPECIALIST ARACELI HAYWOOD M.D. Normal [facility] Comment on above: Performed By: #### C UT #### [address] GROUP B STREP CULTUREon 01-27 S. [...] S F Tetracycline <=0.25 S F Normal [facility] Comment on above: Performed By: #### A FPMAT #### [facility] [address] [place] [address] Dr. Alexsander Dickinson CBC AUTO DIFFon 02-02-2023 BASO # 0.0 103/ul Normal 0.0-0.1 [facility] Comment on above: Performed By: #### C BC #### [facility] [address] [place] [address] Dr. Alexsander Dickinson Basophils/100 WBC (Bld) 0.2 % Normal 0.2-2.0 [facility] Comment on above: Performed By: #### C BC #### [facility] [address] [place] [address] Dr. Alexsander Dickinson EO # 0.0 103/ul Normal 0.0-0.7 [facility] Comment on above: Performed By: #### C BC #### [facility] [address] [place] [address] Dr. Alexsander Dickinson Eosinophils/100 WBC (Bld) 0.0 % Critically low 0.9-7.0 [facility] Comment on above: Performed By: #### C BC #### [facility] [address] [place] [address] Dr. Alexsander Dickinson Erythrocyte distribution width (RBC) [Ratio] 12.5 % Normal 11.0-15.0 [facility] Comment on above: Performed By: #### C BC #### [facility] [address] [place] [address] Dr. Alexsander Dickinson Hematocrit (Bld) [Volume fraction] 32.9 % Critically low 36.0-48.0 [facility] Comment on above: Performed By: #### C BC #### [facility] [address] [place] [address] Dr. Alexsander Dickinson Hemoglobin (Bld) [Mass/Vol] 10.7 g/dL Critically low 12.0-16.0 [facility] Comment on above: Performed By: #### C BC #### [facility] [address] [place] [address] Dr. Alexsander Dickinson IG # 0.12 10e3/ul Critically high 0.00-0.03 [facility] Comment on above: Performed By: #### C BC #### [facility] [address] [place] [address] Dr. Alexsander Dickinson IG % 0.7 % Critically high 0.0-0.5 [facility] Comment on above: Performed By: #### C BC #### [facility] [address] [place] [address] Dr. Alexsander Dickinson LYMPH # 1.1 103/ul Critically low 1.2-3.8 [facility] Comment on above: Performed By: #### C BC #### [facility] [address] [place] [address] Dr. Alexsander Dickinson Lymphocytes/100 WBC (Bld) 6.4 % Critically low 20.5-60.0 [facility] Comment on above: Performed By: #### C BC #### [facility] [address] [place] [address] Dr. Alexsander Dickinson MANUAL DIFF REQ NO Normal [facility] Comment on above: Performed By: #### C BC #### [facility] [address] [place] [address] Dr. Alexsander Dickinson MCH (RBC) [Entitic mass] 26.1 pg Critically low 26.7-34.0 [facility] Comment on above: Performed By: #### C BC #### [facility] [address] [place] [address] Dr. Alexsander Dickinson MCHC (RBC) [Mass/Vol] 32.5 g/dL Normal 29.9-35.2 [facility] Comment on above: Performed By: #### C BC #### [facility] [address] [place] [address] Dr. Alexsander Dickinson MCV (RBC) [Entitic vol] 80.2 fL Critically low 81.0-99.0 [facility] Comment on above: Performed By: #### C BC #### [facility] [address] [place] [address] Dr. Alexsander Dickinson MONO # 0.4 103/ul Normal 0.3-0.8 [facility] Comment on above: Performed By: #### C BC #### [facility] [address] [place] [address] Dr. Alexsander Dickinson Monocytes/100 WBC (Bld) 2.1 % Normal 1.7-12.0 [facility] Comment on above: Performed By: #### C BC #### [facility] [address] [place] [address] Dr. Alexsander Dickinson NEUT # 15.5 103/ul Critically high 1.4-6.5 [facility] Comment on above: Performed By: #### C BC #### [facility] [address] [place] [address] Dr. Alexsander Dickinson Neutrophils/100 WBC (Bld) 90.6 % Critically high 43.0-75.0 [facility] Comment on above: Performed By: #### C BC #### [facility] [address] [place] [address] Dr. Alexsander Dickinson Platelet mean volume (Bld) [Entitic vol] 10.7 fL Normal 9.5-13.5 [facility] Comment on above: Performed By: #### C BC #### [facility] [address] [place] [address] Dr. Alexsander Dickinson PLT 310 103/ul Normal 150-450 [facility] Comment on above: Performed By: #### C BC #### [facility] [address] [place] [address] Dr. Alexsander Dickinson RBC 4.10 106/ul Critically low 4.20-5.40 [facility] Comment on above: Performed By: #### C BC #### [facility] [address] [place] [address] Dr. Alexsander Dickinson WBC 17.1 103/ul Critically high 4.0-11.0 [facility] Comment on above: Performed By: #### C BC #### [facility] [address] [place] [address] Dr. Alexsander Dickinson CBC AUTO DIFFon 02-01-2023 BASO # 0.0 103/ul Normal 0.0-0.1 [facility] Comment on above: Performed By: #### A 1C #### [facility] [address] [place] [address] Dr. Alexsander Dickinson Basophils/100 WBC (Bld) 0.2 % Normal 0.2-2.0 [facility] Comment on above: Performed By: #### A 1C #### [facility] [address] [place] [address] Dr. Alexsander Dickinson EO # 0.0 103/ul Normal 0.0-0.7 [facility] Comment on above: Performed By: #### A 1C #### [facility] [address] [place] [address] Dr. Alexsander Dickinson Eosinophils/100 WBC (Bld) 0.4 % Critically low 0.9-7.0 [facility] Comment on above: Performed By: #### A 1C #### [facility] [address] [place] [address] Dr. Alexsander Dickinson Erythrocyte distribution width (RBC) [Ratio] 12.9 % Normal 11.0-15.0 [facility] Comment on above: Performed By: #### A 1C #### [facility] [address] [place] [address] Dr. Alexsander Dickinson Hematocrit (Bld) [Volume fraction] 34.2 % Critically low 36.0-48.0 [facility] Comment on above: Performed By: #### A 1C #### [facility] [address] [place] [address] Dr. Alexsander Dickinson Hemoglobin (Bld) [Mass/Vol] 11.4 g/dL Critically low 12.0-16.0 [facility] Comment on above: Performed By: #### A 1C #### [facility] [address] [place] [address] Dr. Alexsander Dickinson IG # 0.04 10e3/ul Critically high 0.00-0.03 [facility] Comment on above: Performed By: #### A 1C #### [facility] [address] [place] [address] Dr. Alexsander Dickinson IG % 0.5 % Normal 0.0-0.5 [facility] Comment on above: Performed By: #### A 1C #### [facility] [address] [place] [address] Dr. Alexsander Dickinson LYMPH # 2.1 103/ul Normal 1.2-3.8 [facility] Comment on above: Performed By: #### A 1C #### [facility] [address] [place] [address] Dr. Alexsander Dickinson Lymphocytes/100 WBC (Bld) 23.9 % Normal 20.5-60.0 [facility] Comment on above: Performed By: #### A 1C #### [facility] [address] [place] [address] Dr. Alexsander Dickinson MANUAL DIFF REQ NO Normal [facility] Comment on above: Performed By: #### A 1C #### [facility] [address] [place] [address] Dr. Alexsander Dickinson MCH (RBC) [Entitic mass] 27.0 pg Normal 26.7-34.0 [facility] Comment on above: Performed By: #### A 1C #### [facility] [address] [place] [address] Dr. Alexsander Dickinson MCHC (RBC) [Mass/Vol] 33.3 g/dL Normal 29.9-35.2 [facility] Comment on above: Performed By: #### A 1C #### [facility] [address] [place] [address] Dr. Alexsander Dickinson MCV (RBC) [Entitic vol] 81.0 fL Normal 81.0-99.0 [facility] Comment on above: Performed By: #### A 1C #### [facility] [address] [place] [address] Dr. Alexsander Dickinson MONO # 0.5 103/ul Normal 0.3-0.8 [facility] Comment on above: Performed By: #### A 1C #### [facility] [address] [place] [address] Dr. Alexsander Dickinson Monocytes/100 WBC (Bld) 6.0 % Normal 1.7-12.0 [facility] Comment on above: Performed By: #### A 1C #### [facility] [address] [place] [address] Dr. Alexsander Dickinson NEUT # 5.9 103/ul Normal 1.4-6.5 [facility] Comment on above: Performed By: #### A 1C #### [facility] [address] [place] [address] Dr. Alexsander Dickinson Neutrophils/100 WBC (Bld) 69.0 % Normal 43.0-75.0 [facility] Comment on above: Performed By: #### A 1C #### [facility] [address] [place] [address] Dr. Alexsander Dickinson Platelet mean volume (Bld) [Entitic vol] 10.5 fL Normal 9.5-13.5 [facility] Comment on above: Performed By: #### A 1C #### [facility] [address] [place] [address] Dr. Alexsander Dickinson PLT 275 103/ul Normal 150-450 [facility] Comment on above: Performed By: #### A 1C #### [facility] [address] [place] [address] Dr. Alexsander Dickinson RBC 4.22 106/ul Normal 4.20-5.40 [facility] Comment on above: Performed By: #### A 1C #### [facility] [address] [place] [address] Dr. Alexsander Dickinson WBC 8.6 103/ul Normal 4.0-11.0 [facility] Comment on above: Performed By: #### A 1C #### [facility] [address] [place] [address] Dr. Alexsander Dickinson LDHon 02-01-2023 LDH 124 U/L Normal 81-234 [facility] Comment on above: Performed By: #### C MP, LDH, URIC #### [facility] [address] [place] [address] Dr. Alexsander Dickinson POINT OF CARE GLUCOSEon Glucose [Mass/Vol] 98 mg/dL Normal 74-106 [facility] Comment on above: Performed By: #### A 1C #### [facility] [address] [place] [address] Dr. Alexsander Dickinson PROF 14(COMP METB)on 023 Albumin [Mass/Vol] 2.5 g/dL Critically low 3.4-5.0 [facility] Comment on above: Performed By: #### C MP, LDH, URIC #### [facility] [address] [place] [address] Dr. Alexsander Dickinson Albumin/Globulin [Mass ratio] 0.6 {ratio} Normal [facility] Comment on above: Performed By: #### C MP, LDH, URIC #### [facility] [address] [place] [address] Dr. Alexsander Dickinson ALP [Catalytic activity/Vol] 138 U/L Critically high 46-116 [facility] Comment on above: Performed By: #### C MP, LDH, URIC #### [facility] [address] [place] [address] Dr. Alexsander Dickinson ALT [Catalytic activity/Vol] 15 U/L Normal 14-59 [facility] Comment on above: Performed By: #### C MP, LDH, URIC #### [facility] [address] [address] [address] Alexsander Dickinson Anion gap [Moles/Vol] 14.5 mmol/L Normal [facility] Comment on above: Performed By: #### C MP, LDH, URIC #### [facility] [address] [place] [address] Dr. Alexsander Dickinson AST [Catalytic activity/Vol] 8 U/L Critically low 15-37 [facility] Comment on above: Performed By: #### C MP, LDH, URIC #### [facility] [address] [place] [address] Dr. Alexsander Dickinson Bilirubin [Mass/Vol] 0.2 mg/dL Normal 0.2-1.0 [facility] Comment on above: Performed By: #### C MP, LDH, URIC #### [facility] [address] [place] [address] Dr. Alexsander Dickinson Calcium [Mass/Vol] 8.6 mg/dL Normal 8.5-10.1 [facility] Comment on above: Performed By: #### C MP, LDH, URIC #### [facility] [address] [place] [address] Dr. Alexsander Dickinson Chloride [Moles/Vol] 103 mmol/L Normal 98-107 [facility] Comment on above: Performed By: #### C MP, LDH, URIC #### [facility] [address] [place] [address] Dr. Alexsander Dickinson CO2 [Moles/Vol] 23.7 mmol/L Normal 21.0-32.0 [facility] Comment on above: Performed By: #### C MP, LDH, URIC #### [facility] [address] [address] [address] Alexsander Dickinson Creatinine [Mass/Vol] 0.61 mg/dL Normal 0.55-1.02 [facility] Comment on above: Performed By: #### C MP, LDH, URIC #### [facility] [address] [address] [address] Alexsander Dickinson EGFR-AF MONGOLIAN >60 Normal >=60 [facility] Comment on above: Performed By: #### C MP, LDH, URIC #### [facility] [address] [address] [address] Alexsander Dickinson EGFR-NON AF MONGOLIAN >60 Normal >=60 [facility] Comment on above: Performed By: #### C MP, LDH, URIC #### [facility] [address] [place] [address] Dr. Alexsander Dickinson Globulin (S) [Mass/Vol] 4.1 g/dL Normal [facility] Comment on above: Performed By: #### C MP, LDH, URIC #### [facility] [address] [place] [address] Dr. Alexsander Dickinson Glucose [Mass/Vol] 123 mg/dL Critically high 74-106 [facility] Comment on above: Performed By: #### C MP, LDH, URIC #### [facility] [address] [place] [address] Dr. Alexsander Dickinson Potassium [Moles/Vol] 4.2 mmol/L Normal 3.5-5.1 [facility] Comment on above: Performed By: #### C MP, LDH, URIC #### [facility] [address] [place] [address] Dr. Alexsander Dickinson Protein [Mass/Vol] 6.6 g/dL Normal 6.4-8.2 [facility] Comment on above: Performed By: #### C MP, LDH, URIC #### [facility] [address] [place] [address] Dr. Alexsander Dickinson Sodium [Moles/Vol] 137 mmol/L Normal 136-145 [facility] [facility] Comment on above: Performed By: #### C MP, LDH, URIC #### [facility] [address] [place] [address] Dr. Alexsander Dickinson Urea nitrogen [Mass/Vol] 5.0 mg/dL Critically low 7.0-18.0 [facility] Comment on above: Performed By: #### C MP, LDH, URIC #### [facility] [address] [place] [address] Dr. Alexsander Dickinson Urea nitrogen/Creatinine [Mass ratio] 8.2 mg/mg Normal [facility] Comment on above: Performed By: #### C MP, LDH, URIC #### [facility] [address] [place] [address] Dr. Alexsander Dickinson PROTIMEon 02-01-2023 INR Coag (PPP) [Relative time] {INR} Normal [facility] Comment on above: Performed By: #### H BSANS #### [facility] [address] [place] [address] Dr. Alexsander Dickinson INR GUIDELINES SEE BELOW Normal [facility] Comment on above: Result Comment: CAROLEE RED INR: 2.0 - 3.0 CONDITIONS NOT LISTED BELOW 2.5 - 3.5 FOR PROSTHETIC HEART VALVE REPLACEMENT 2.5 - 3.5 RECURRENT THROMBOSIS Performed By: #### H BSANS #### [facility] [address] [place] [address] Dr. Alexsander Dickinson PT Coag (PPP) [Time] 9.2 s Normal 9.0-11.6 [facility] Comment on above: Performed By: #### H BSANS #### [facility] [address] [place] [address] Dr. Alexsander Dickinson PTTon 02-01-2023 aPTT Coag (Bld) [Time] 25.9 s Normal 22.3-36.2 [facility] Comment on above: Performed By: #### H BSANS #### [facility] [address] [place] [address] Dr. Alexsander Dickinson TYPE AND SCREENon 02-01-2023 TYPE AND SCREEN Negative Normal [facility] Comment on above: Performed By: #### A FPMAT #### [facility] [address] [place] [address] Dr. Alexsander Dickinson URIC ACID SERUMon 02-01-2023 Urate [Mass/Vol] 5.5 mg/dL Normal 2.6-6.0 [facility] Comment on above: Performed By: #### C MP, LDH, URIC #### [facility] [address] [address] [address] Alexsander Dickinson US PREG BIOPHY W [...] by: DEE GALLEGOS Date: 2023-02-01 15:04 Normal [facility] US PREG BIOPHY W NON STRESSo n [...] by: SEBASTIAN HENRY Date: 2023-01-25 15:18 Normal [facility] US PREG BIOPHY W NON STRESSo n [...] by: DEE GALLEGOS Date: 2023-01-19 06:16 Normal [facility] US PREG BIOPHY W NON STRESSo n [...] by: DEE GALLEGOS Date: 2023-01-11 15:38 Normal [facility] US PREG GROWTHon 01-11-2023 US PREG GROWTH [...] by: DEE GALLEGOS Date: 2023-01-11 16:42 Normal [facility] GTT 3 HR PREGon 12-01-2022 Glucose [Mass/Vol] 104 mg/dL Normal 74-106 [facility] Comment on above: Performed By: #### A 1C #### [facility] [address] [place] [address] Dr. Alexsander Dickinson Glucose [Mass/Vol] 182 mg/dL Normal [facility] Comment on above: Performed By: #### A 1C #### [facility] [address] [place] [address] Dr. Alexsander Dickinson Glucose [Mass/Vol] 114 mg/dL [facility] Comment on above: Performed By: #### A 1C #### [facility] [address] [address] [address] Alexsander Dickinson Glucose [Mass/Vol] 73 mg/dL Normal [facility] Comment on above: Performed By: #### A 1C #### [facility] [address] [place] [address] Dr. Alexsander Dickinson PAP ACOG PANEL 2: 21 to 29on 11-18-2022 . . Normal [facility] Comment on above: Performed By: #### A 1C #### [facility] [address] [place] [address] Dr. Alexsander Dickinson Age Gdln ACOG Testing [facility] Comment on above: Performed By: #### A 1C #### [facility] [address] [place] [address] Dr. Alexsander Dickinson DIAGNOSIS: Comment [facility] Comment on above: Result Comment: NEGA TIVE FOR INTRAEPITHELIAL LESION OR MALIGNANCY. Performed By: #### A 1C #### [facility] [address] [place] [address] Dr. Alexsander Dickinson Methodology: Comment Normal [facility] Comment on above: Result Comment: This liquid based ThinPrep(R) pap test was screened with the use of an image guided system. Performed By: #### A 1C #### [facility] [address] [place] [address] Dr. Alexsander Dickinson Note: Comment [facility] Comment on above: Result Comment: The Pap smear is a screening test designed to aid in the detection of premalignant and malignant conditions of the uterine cervix. It is not a diagnostic procedure and should not be used as the sole means of detecting cervical cancer. Both false-positive and false-negative reports do occur. . Performed By: #### A 1C #### [facility] [address] [place] [address] Dr. Alexsander Dickinson Performed by: Comment Normal [facility] Comment on above: Result Comment: Cici Clarke, Lab Systems Analyst (ASCP) Performed By: #### A 1C #### [facility] [address] [place] [address] Dr. Alexsander Dickinson Reflex Criteria: Comment Normal [facility] Comment on above: Result Comment: The HPV DNA reflex criteria were not met with this specimen result therefore, no HPV testing was performed. . Performed By: #### A 1C #### [facility] [address] [place] [address] Dr. Alexsander Dickinson Specimen adequacy: Comment Normal [facility] Comment on above: Result Comment: Sati sfactory for evaluation. No endocervical component is identified. Performed By: #### A 1C #### [facility] [address] [place] [address] Dr. Alexsander Dickinson CHLAMYDIA/GONOCOCCUS ZUNILDA ( AB/URINE/PAPon 11-17-2022 Chlamydia trachomatis, ZUNILDA Negative Normal Negative [facility] Comment on above: Performed By: #### A 1C #### [facility] [address] [place] [address] Dr. Alexsander Dickinson Neisseria gonorrhoeae, ZUNILDA Negative Normal Negative [facility] Comment on above: Performed By: #### A 1C #### [facility] [address] [place] [address] Dr. Alexsander Dickinson VAGINITIS/VAGINOSIS DNA PROB Jose De Jesus 11-16-2022 Reema species Negative Normal Negative [facility] Comment on above: Performed By: #### V AGINT #### [facility] [address] [place] [address] Dr. Alexsander Dickinson Gardnerella vaginalis Negative Normal Negative [facility] Comment on above: Performed By: #### V AGINT #### [facility] [address] [place] [address] Dr. Alexsander Dickinson Trichomonas vaginalis Negative Normal Negative [facility] Comment on above: Performed By: #### V AGINT #### [facility] [address] [place] [address] Dr. Alexsander Dickinson US PREG INCOMPLETE ANATOMYon 11-14-2022 US PREG INCOMPLETE ANATOMY EXAMINATION: US PREG INCOMPLETE ANATOMY HISTORY: screening COMPARISON: No relevant comparison available. FINDINGS: Heart rate: 150 bpm position: Variable Anatomy: 4.8 x 5.8 mm choroid plexus cyst is again identified IMPRESSION: Stable choroid plexus cyst Electronically authenticated by: SEBASTIAN HENRY Date: 2022-11-14 16:19 Normal [facility] FREE T4on 10-19-2022 Free T4 [Mass/Vol] 0.89 ng/dL Normal 0.76-1.46 [facility] Comment on above: Performed By: #### H BSANS #### [facility] [address] [place] [address] Dr. Alexsander Dickinson TSHon 10-19-2022 TSH 1.303 uIU/mL Normal 0.358-3.740 [facility] Comment on above: Performed By: #### H BSANS #### [facility] [address] [place] [address] Dr. Alexsander Dickinson US PREG ANATOMY SINGLEon [...] DEE GALLEGOS Date: 2022-10-17 20:42 Normal [facility] AFP MATERNAL FOR SPINA BIFID Aon 10-11-2022 AFP MoM 1.49 Normal [facility] Comment on above: Performed By: #### A FPMAT #### [facility] [address] [address] [address] Alexsander Dickinson AFP Value 60.8 ng/mL Normal [facility] Comment on above: Performed By: #### A FPMAT #### [facility] [address] [address] [address] Alexsander Dickinson AFP, Serum for Spina Bifida Report Normal [facility] Comment on above: Performed By: #### A FPMAT #### [facility] [address] [address] [address] Alexsander Dickinson Comment Comment Normal [facility] Comment on above: Result Comment: Niurka Patricia, Ph.D., [facility] Director . References: Available Upon Request. . Multiples Of Median Cutoffs For AFP Elevations Fonseca 2.5 Black 2.8 IDD 2.0 Twins 4.5 Abbreviation Definitions IDD - Insulin Dep Diabetes OSBR - Open Spina Bifida Risk . For further inquiries contact [employer] [facility] at [phone]. . This test was developed and its performance characteristics determined by [employer]. It has not been cleared or approved by the Food and Drug Administration. Performed By: #### A FPMAT #### [facility] [address] [address] [address] Alexsander Dickinson Gest Age Collection Date 19.4 weeks Normal [facility] Comment on above: Performed By: #### A FPMAT #### [facility] [address] [place] [address] Dr. Alexsander Dickinson Gestat, Age Based on NILE Normal [facility] Comment on above: Result Comment: 02/2023 Recalculations are not recommended when gestational dating by LMP and ultrasound are within 10 days. Performed By: #### A FPMAT #### [facility] [address] [place] [address] Dr. Alexsander Dickinson Insulin Dep Diabetes No Normal [facility] Comment on above: Performed By: #### A FPMAT #### [facility] [address] [place] [address] Dr. Alexsander Dickinson Interpretation Comment Normal [facility] Comment on above: Result Comment: Inte rpretation: [...] Customer Services to discuss available options. The [employer] recommends amniocentesis be offered to women age 35 and older. Performed By: #### A FPMAT #### [facility] [address] [place] [address] Dr. Alexsander Dickinson [age] Normal [facility] Comment on above: Performed By: #### A FPMAT #### [facility] [address] [place] [address] Dr. Alexsander Dickinson Multiple Gestation No Normal [facility] Comment on above: Performed By: #### A FPMAT #### [facility] [address] [place] [address] Dr. Alexsander Dickinson OSBR Risk 1 IN 2809 Normal [facility] [place] Comment on above: Performed By: #### A FPMAT #### [facility] [address] [place] [address] Dr. Alexsander Dickinson PDF . Normal [facility] Comment on above: Performed By: #### A FPMAT #### [facility] [address] [address] [address] Alexsander Dickinson Race Normal [facility] Comment on above: Performed By: #### A FPMAT #### [facility] [address] [address] [address] Alexsander Dickinson Test Results: Negative Normal [facility] Comment on above: Performed By: #### A FPMAT #### [facility] [address] [address] [address] Alexsander Dickinson GTT 3 HR PREGon 09-29-2022 Glucose [Mass/Vol] 99 mg/dL Normal 74-106 [facility] Comment on above: Performed By: #### A FPMAT #### [facility] [address] [place] [address] Dr. Alexsander Dickinson Glucose [Mass/Vol] 173 mg/dL Normal [facility] Comment on above: Performed By: #### A FPMAT #### [facility] [address] [place] [address] Dr. Aelxsander Dickinson Glucose [Mass/Vol] 151 mg/dL Normal [facility] Comment on above: Performed By: #### A FPMAT #### [facility] [address] [address] [address] Alexsander Dickinson Glucose [Mass/Vol] 76 mg/dL Normal [facility] Comment on above: Performed By: #### A FPMAT #### [facility] [address] [address] [address] Alexsander Dickinson GLUCOSE - 1HRon 09-20-2022 Glucose [Mass/Vol] 159 mg/dL Critically high 74-106 [facility] Comment on above: Performed By: #### H BSANS #### [facility] [address] [place] [address] Dr. Alexsander Dickinson HEP B SURFACE ANTIGEN SCREEN on 08-17-2022 HBsAg Screen Negative Normal Negative [facility] Comment on above: Performed By: #### H BSANS #### [facility] [address] [address] [address] Alexsander Dickinson HEPATITIS C VIRUS AB W/ REFL EX QUANTon 08-17-2022 HCV AB <0.1 Normal 0.0-0.9 [facility] Comment on above: Performed By: #### A 1C #### [facility] [address] [address] [address] Alexsander Dickinson Interpretation: Comment Normal [facility] Comment on above: Result Comment: Nega tive Not infected with HCV, unless recent infection is suspected or other evidence exists to indicate HCV infection. Performed By: #### A 1C #### [facility] [address] [place] [address] Dr. Alexsander Dickinson HIV 1 AND 2 WITH REFLEXon HIV Screen 4th Generation wRfx Non-Reactive Normal Non Reactive [facility] Comment on above: Result Comment: HIV Negative HIV-1/HIV-2 antibodies and HIV-1 p24 antigen were NOT detected. There is no laboratory evidence of HIV infection. Performed By: #### H IV12 #### [facility] [address] [place] [address] Dr. Alexsander Dickinson RPR QUANTon 08-17-2022 Rapid Plasma Reagin, Quant Non-Reactive Normal NonRea<1:1 [facility] Comment on above: Result Comment: Plea se Note: This test does not meet current guidelines for screening and diagnosis of syphilis. This test is intended for following treatment response in patients being treated for syphilis infection. To screen for syphilis infection, a reflex cascade that includes both RPR and a treponema-specific assay should be utilized, such as Treponema pallidum (Syphilis) Screening [place] (969039) or Rapid Plasma Reagin (RPR) Test With Reflex to Quantitative RPR and Confirmatory Treponema pallidum Antibodies (477452). Performed By: #### H BSANS #### [facility] [address] [place] [address] Dr. Alexsander Dickinson RUBELLA AB IGGon 08-17-2022 Rubella Antibodies, IgG 11.90 index Normal Immune >0.99 [facility] Comment on above: Result Comment: Non- immune <0.90 Equivocal 0.90 - 0.99 Immune >0.99 Performed By: #### H BSANS #### [facility] [address] [place] [address] Dr. Alexsander Dickinson CBC AUTO DIFFon 08-16-2022 BASO # 0.1 103/ul Normal 0.0-0.1 [facility] Comment on above: Performed By: #### H BSANS #### [facility] [address] [place] [address] Dr. Alexsander Dickinson Basophils/100 WBC (Bld) 0.6 % Normal 0.2-2.0 [facility] Comment on above: Performed By: #### H BSANS #### [facility] [address] [place] [address] Dr. Alexsander Dickinson EO # 0.1 103/ul Normal 0.0-0.7 [facility] Comment on above: Performed By: #### H BSANS #### [facility] [address] [place] [address] Dr. Alexsander Dickinson Eosinophils/100 WBC (Bld) 0.9 % Normal 0.9-7.0 [facility] Comment on above: Performed By: #### H BSANS #### [facility] [address] [place] [address] Dr. Alexsander Dickinson Erythrocyte distribution width (RBC) [Ratio] 12.9 % Normal 11.0-15.0 [facility] Comment on above: Performed By: #### H BSANS #### [facility] [address] [place] [address] Dr. Alexsander Dickinson Hematocrit (Bld) [Volume fraction] 39.0 % Normal 36.0-48.0 [facility] Comment on above: Performed By: #### H BSANS #### [facility] [address] [place] [address] Dr. Alexsander Dickinson Hemoglobin (Bld) [Mass/Vol] 12.9 g/dL Normal 12.0-16.0 [facility] Comment on above: Performed By: #### H BSANS #### [facility] [address] [place] [address] Dr. Alexsander Dickinson IG # 0.04 10e3/ul Critically high 0.00-0.03 [facility] Comment on above: Performed By: #### H BSANS #### [facility] [address] [place] [address] Dr. Alexsander Dickinson IG % 0.4 % Normal 0.0-0.5 [facility] Comment on above: Performed By: #### H BSANS #### [facility] [address] [address] [address] Alexsander Dickinson LYMPH # 2.4 103/ul Normal 1.2-3.8 [facility] Comment on above: Performed By: #### H BSANS #### [facility] [address] [place] [address] Dr. Alexsander Dickinson Lymphocytes/100 WBC (Bld) 26.3 % Normal 20.5-60.0 [facility] Comment on above: Performed By: #### H BSANS #### [facility] [address] [place] [address] Dr. Alexsander Dickinson MANUAL DIFF REQ NO Normal [facility] Comment on above: Performed By: #### H BSANS #### [facility] [address] [place] [address] Dr. Alexsander Dickinson MCH (RBC) [Entitic mass] 28.4 pg Normal 26.7-34.0 [facility] Comment on above: Performed By: #### H BSANS #### [facility] [address] [place] [address] Dr. Alexsander Dickinson MCHC (RBC) [Mass/Vol] 33.1 g/dL Normal 29.9-35.2 [facility] Comment on above: Performed By: #### H BSANS #### [facility] [address] [place] [address] Dr. Alexsander Dickinson MCV (RBC) [Entitic vol] 85.7 fL Normal 81.0-99.0 [facility] Comment on above: Performed By: #### H BSANS #### [facility] [address] [place] [address] Dr. Alexsander Dickinson MONO # 0.6 103/ul Normal 0.3-0.8 [facility] Comment on above: Performed By: #### H BSANS #### [facility] [address] [place] [address] Dr. Alexsander Dickinson Monocytes/100 WBC (Bld) 6.8 % Normal 1.7-12.0 [facility] Comment on above: Performed By: #### H BSANS #### [facility] [address] [place] [address] Dr. Alexsander Dickinson NEUT # 5.8 103/ul Normal 1.4-6.5 [facility] Comment on above: Performed By: #### H BSANS #### [facility] [address] [place] [address] Dr. Alexsander Dickinson Neutrophils/100 WBC (Bld) 65.0 % Normal 43.0-75.0 [facility] Comment on above: Performed By: #### H BSANS #### [facility] [address] [place] [address] Dr. Alexsander Dickinson Platelet mean volume (Bld) [Entitic vol] 9.9 fL Normal 9.5-13.5 [facility] Comment on above: Performed By: #### H BSANS #### [facility] [address] [place] [address] Dr. Alexsander Dickinson PLT 275 103/ul Normal 150-450 [facility] Comment on above: Performed By: #### H BSANS #### [facility] [address] [place] [address] Dr. Alexsander Dickinson RBC 4.55 106/ul Normal 4.20-5.40 [facility] Comment on above: Performed By: #### H BSANS #### [facility] [address] [place] [address] Dr. Alexsander Dickinson WBC 8.9 103/ul Normal 4.0-11.0 [facility] Comment on above: Performed By: #### H BSANS #### [facility] [address] [place] [address] Dr. Alexsander Dickinson CULTURE URINEon 08-16-2022 CULTURE URINE Culture Observations: MODERATE GROWTH OF MIXED GENITAL JOHN. NO POTENTIAL PATHOGENS SEEN. Normal [facility] Comment on above: Performed By: #### A FPMAT #### [facility] [address] [address] [address] Alexsander Dickinson GLYCOHEMOGLOBIN A1Con 2021 ADA RECOMMENDATION SEE BELOW Normal [facility] Comment on above: Result Comment: ADA RECOMMENDED LIMIT 4.0 - 6.0 ADA THERAPEUTIC TARGET < 7.0 ACTION SUGGESTED > 7.0 Performed By: #### A 1C #### [facility] [address] [address] [address] Alexsander Dickinson Glucose [Mass/Vol] 111 mg/dL Normal [facility] Comment on above: Performed By: #### A 1C #### [facility] [address] [place] [address] Dr. Alexsander Dickinson HbA1c (Bld) [Mass fraction] 5.5 % Normal 4.5-6.2 [facility] Comment on above: Performed By: #### A 1C #### [facility] [address] [place] [address] Dr. Alexsander Dickinson LATRELL BOX TEST PT SEND OUTo n 08-16-2022 SENT TO REF LAB 08/16/2022 Normal [facility] Comment on above: Performed By: #### N BOX #### [facility] [address] [place] [address] Dr. Alexsander Dickinson TYPE AND SCREENon 08-16-2022 TYPE AND SCREEN Negative Normal [facility] Comment on above: Performed By: #### A FPMAT #### [facility] [address] [place] [address] Dr. Alexsander Dickinson US PREG TVon 07-21-2022 [...] DEE GALLEGOS Date: 2022-07-20 22:25 Normal [facility] US PREG TVon 07-13-2022 US PREG TV EXAMINATION: US PREG TV HISTORY: Missed period COMPARISON: 03/09/2022 FINDINGS: Fonseca intrauterine gestation Gestational sac: 1.7 cm, 6 weeks 2 days Yolk sac: 1.7 mm Gore-rump length: 5.8 mm, 6 weeks 3 days Heart rate: 125 bpm Uterus is normal in appearance, anteverted, retroflexed The ovaries are normal in appearance. Cervix: Closed, 3.9 cm small amount of fluid in the endocervical canal IMPRESSION: Viable fonseca intrauterine gestation measuring 6 weeks 3 days Electronically authenticated by: SEBASTIAN HENRY Date: 2022-07-13 17:05 Normal [facility] Coding Summaryon 03-17-2022 Coding Summary [employer] 64 CvunrorcBMx6pQu+PGhl YWQ+HO9FUYGpN25wqRQn eC0AC8lJLE3EEQMSAISS NL4KDK9pjNV4YDwgQ7Er biAv UlbklFLxRF82YHs1VFK9 hPtzAQttgE7rxPRpA3u1 KoQrNA92nN22PNyiKSTi KrD8QsYzrvkunYTo W4nlFsOykNWrEep+PHRh YmxlIHdpZHRoPScxMDAl LbUpqSjoGP3uFg7xDWMd LWNvbGxhcHNlOiBj w4gtEXGtSBrdHF6naHyz C8XetHT7FVCow8w8Sh90 dHI+WBJaCRK0hOwoVHxl w820OdUsg1pgXVI3 fKLrXYatXCX1Z27ca8K3 PKMaOKCsSCY1pMA3oQ5y jVrlhnnqL9NpxJAmQiM5 XWG0jPJbjF7leKkw fqhsmW5lEzs+Q69DUV9U DIDOEN5WCzn3T9EuOrnk dHI+OU56MWZsMR45pOKa pWXjh9lalFn7HdMi VBDtWWN3xVyeLObjb3Ys UYBkR04qwUQtj5K4HGBq qAulxVViCgNjpNC5fT3l YYbgijiow2rrrtzc Fgpsm9zojp85fO54J82k BNimUQVkGPZ8RAAgHRHi eQmzfy3rbJ1pUa1+IDxj h3lfo0yffOs6MuSj GNEcsaGlgFyqVLX3g2En Ji42O8UicXbdy8OmPwx5 xw33bEDvt7Z0jXV8QUwr NEQrdQ1kICufSeH4 WEHlDyYruQ31oJYsGAah Wq6isTtnuPdmAU0fBIRo szxsCJIxyP6aSSPvnZDc zOilOA1lNHZellrk w989BmEfDNA6TGQqyHWn C2ZloB9iIyRpMSPrIRLy G1LkiVJsJQauL644IOoz PyY5YJDsqxHnB6Zs TBEpaXcdIwY9z5V5Sf7X d4HxbrvtHGG5YHbbCFG5 QzXgEvNaQmN6Q0TtQcd9 FQNslRboRQ0iA3Nb CLTvisvblbzelEN9HJMj AHOjcU47cHZxIYvuOf6a u5H9k429NJTbKLChoJ28 La1qxHehPRWqlICO pP1rpqydj1jylzocHdLo BVPgYLw5QHl5GUFhhJlu FmDmHLA2RfS7RKV1pLLx lM7qaLgbzdpqdU4z Oyc+Y88neK0xVMW2OYA4 eojeLRIopyGhGI61FC36 K9LwYktrmASzeUU+PGRp guItkVxcDA5uFsCw m2mpd3TqTQgjE5KpDZYm KVmvVju1GYOqYHW4oPQ7 aU6jRGYqWBehd6X2oUQ1 W9KkamHkbn2hl3hw TJAjJVsrU46oqTDwv0S8 DKHhbOQ5XKMbfYvgMzTt nI58Pdm+WRAqqMwcc3Il Ayxhs4mis2avjQt4 IjMwJSIgdmFsaWduPSJ0 k6LoOz43T86dBLbiAHQf XTDcFAYgGGZttUrvle2d xI9hPs8+PGNvbCB3 wNH8fB3bTIRgLnY7FTbt K509ToCkbTCrZmpvw1tz f6ifjGl0HqZuPRNcuyUp oQbwXBJ5a0TvLd44 Q63mRZqdJXEuKZKoDPNn SAEljUynkz9ztJ6qDw0+ CJ9we2ytnt39kJ15kZL+ WKNxQMK0jKjcWYlh QATzpS5rYBcaKkR5AUNm HyEygG48eZVqUAimTj2d pIpdcVfxCQ3yRZGxvjwa x320StWsp2sgDFZp wRCmPQemFPB5F89om1M4 QUPhRMGpZRT0bAT9zP5a bGlnbjogbGVmdDsgdmVy pDpgVFvnECgnR035 IHRvcDsnPlBhdGllbnQg AtFeQOk1Y8SyIfe7YODa zGoaPJ9nnRZqLTmyZn7p aKkajArbYN8mUVAh dlnwz482KiTzv5ciUFDe nEZfZLlzBTK0P94qo3U4 YWQtLVAvCPW4uGV0uY7p bGlnbjogbGVmdDsg euLysBkgTZkiRPozS696 IHRvcDsnPkJpcnRoIERh yHK7KN37HX20zIWad5M9 vAB6C9MbPQVceyua fwvlhWV5YGXjQCGhsS29 Rm9cmBvmKs2mTOKqMEB8 ZQAwpFFlQ9SacB2lShOm RPEoKUBoE3OfgWMn BOwmV573QFubJaJ2YGLf wqHlO4CuCEYckNlySjW1 v7G9Zj7UK0A8FU79RE73 bGHxg1M2fQN7A0Kj FQTujfpqtyrftBD8XPZu PZYveK18Mu7qrPqnJs4s GTCbTJQ7DJJtkSRoY4Ye mF6jSlFrABEkVZFp W8DsxVLuCNcrE339RDao JuR0UAHzygGjY3DdYTZs sPtvCyB7h8V9Gm3NRJa3 MX05QV02vXVus2R0 rLM6C6FcDCBalecmodcs pXX1NHMyCCZzuL59Mt5q eEfiUc2xPMXyKQU9ZWLa lYUrN2LpbA6eSzWi WLHnUNGmY0JhbJVqXBtt I245JMrgIvY1LEJjkoLw N6LrPWNvbQrgZaB2z4T3 Jq9AWGEwME10RSU2 dNO5JG60ZI18D5WaMryi dGFibGU+PHRhYmxlIHdp ZHRoPScxMDAlJyBzdHls XU5aQd6kOXCwTBMz lKyczNPvBnRbu9xpQHAy RIyiWV3rnAhxL5TsaRX8 ZPZyd3r6Pk19B22eP6Ou dXA+CBCtjLY7qRA0 uH0vZnImAvC6CSrcK446 InGgmKGbZsnea9wjx9or rId9SfE4NASnjeGyvBff LOU5f6QoHh05J72w IHdpZHRoPSIxNSUiIHZh dTkrfy5stG1pXa4+PGNv hJI9wBW5qN6sWmNmBrG9 TNqlK678CvFzxCXt Qfvna8vvd0acoHm0FbBi KZLrupEkqRczZAB0p8Pt Ff63G7NazUoqr3XiNhd7 an10oTMme5I2gGL0 M8ZqSYUnykaynZOwmSeq LW4gKMTtqquhLHEzsM1h AKRvO7c0VmElYuD0GIwc U6HocpS3SAHubGUa FXqwJGU6E14at1M0AXRb EVHqVNX8kSF1lE7xiZcd bjogbGVmdDsgdmVydGlj EJxtRItiN497DPOz hQfqHAKnvX1iNZKtuASw fCjeGC0hBGHavyiuAtLW TExJTlMsIEFMWVNTQSBS UVQCYOg9A1ZhFye4 VRZfzGgnJB0czDNpWGbt In5dcWtcqGqxRH3tKCGw njdxKFKwoA0xJBVlfUFr lTtyQE5eXPAsklvr o211YdRlTCV2FDRzzTHg K8AjvQ2eImTsPFEhGPOw E5XxqNZoCLphS915ZQuz DnL4TNSkfhRwJ2Qw FBBuySexZtI9g2B4Kp9m MX3gJc2lXVy7ZB11FY39 pMFzv3Q7jYK9P6BoMKJu cknwoddyuMF4IJGr OGXzmM50cISmZLweTm0b l1J4k743LRNiIFZsvD49 Lg6mxPpuDWWuhSKKdX2z nevql0wjjmpsTjPf TPGhGMe2ISf9EBOsvXwy KgSvKFU5DvO7UXO1pLWu xH8xtLnjmupqoN3kEan+ BvfkBXZnhgH8S3Tf Umy3NXBhwGrkAT7vsXTf NLqcPi0rnJomoKauLL6h JYRhskpxRRTmqF8yWSEs sFEqbPweMG9iMMRv crevv290BbUdAPT6UAYf tPMbM0CspF4wTpAvPTHa XVGxT9CakNEmAOqwK652 TJyoBmS3KVEbieFo D0LeCNVqsWnhDdX4l7A1 Jh2UGD2ANIK9H7BkBik4 ENXdoLfkQX8kqLWaDHut Ym9rsEdozGamRI6c LINrerpcQGIboH6uGMWd aPVtmKkzXN2yEXXergay f188BuJnJJM0TZCbhIGl G7GscS9hHrFvPFSv TECzD5NpxGCuTOpnU462 BHxlVnC4XQMabeKbM6Xl HGGmrBrlBnC3m7Q6Dz5R nTTwL9WfP9a0L2Ql PjwvdHI+YK51WJLjTP25 dULdkPToa5calCq3FsGq FZDhADB2bVhkFAezs3Mu RWUhS49aeNLim7R1 IGNvbGxhcHNlOyBlbXB0 zZ6lGHmpllmtt7dlqffz Yctrx4ojeb89eF84T53j IHdpZHRoPSIzMCUi ATMkfUsrot7xfR7mBj1+ WNGyxDT4qTO8sO8jZdIh JrO5MWaaU373DyTsqXLg Zykjv9hoa6yuyXd0 IjIwJSIgdmFsaWduPSJ0 t8QgIv13W01pKNfnTZAe GRJaQKLdSZWoeZyjtn8a dT5nSu3+BS7hx5hf pd18qD04sVG+PHRkIHN0 iRvdSXayFFWnkN6bCExs VcO9CCJxNmTjaE92wZYw ONaoUz1esAnswIwf PP3dKNHjynpbc591YkBx s5kxNICkbABaWFzpJVZ6 O69ee8L8IFSrBWGbYSZ2 wDO2cD3wnKoyshzq bGVmdDsgdmVydGljYWwt FYnxH241YHCtiKwyLmFu cBMjJ7eotdKWSK7dSinq dGQ+HERrLIQ8eWie DZqeYDQgnA9sZQYcW5v4 FdJoXkW4EHmuY6LagzF6 SVNlaNNjQJUzdBXHbH4n rwjxm8tppacyHcRc HXBiILg7RHe9GHDsbTve FnLzBGU3VoN4YIQ7kCLn sH3dpSaatnvczP1xXhd+ RklOOjwvdGQ+PHRk ONJ4cSwyIDquNNSvjB3q FWNdE9k9CzIiMvF4BDck N4LxdeU3EZZujPOkTWPj xYZWiE4zrcmbb5vg qxeiCzMdYNAsNTm6FBs5 NJXjeDixLtTdFHG2KnD5 XDR1tWKniB1wzHobagwu lN7nNtf+TVJOOjwv dGQ+AURvRNC8iDajYJpb NPFbtQ7jRBWkW2q2ElOf VhR0QAnaD5GchiU9UAOm zNBmGAAnmHSVuU2d nfdtw5fwojhuHiSkXFHe UIv6HEg6ZAFjdGlhPgDu LWI5ArC1MPG0wKMnqY8u vVnjypoyoN6oIww+ XSK4HKA7GT05DE39E7Oh PjwvdGFibGU+PHRhYmxl IHdpZHRoPScxMDAlJyBz dErtRH2sTn8bWFEi LWN (more content not included)... [facility] Coding Summary HTMLBase 64 EwoieykiGTf9aCr+PGhl YWQ+HE8MNYLsO87fuWSl yJ1UU1uEIM0PPXXXUGAK VI5OSQ6bvVK8QCjjR3Kz biAv VbclsMDaLY56EGw7OGP9 wJyuNPhspY8jeHLeG4v7 LeIoRJ52lR14BLvqUVXq MiC4ZtNerwifeUBh S4aoUnKvqROlTud+PHRh YmxlIHdpZHRoPScxMDAl KdCuuKzeWY3yVd8zFYRe LWNvbGxhcHNlOiBj l0uiAXCkDBrtPY6tpDri U5AehRQ5CXCem7n9Zp02 dHI+OYIkWAF8yCfgAYlw o107UiUpw6smAZL0 qEOfEInsJGT2X52nj7V7 NQMdPRRaWXI5vUR5jI9w oIdwvvzlD9YcyMOaNzW7 KAP2cVMrjZ1prQqc rzznpM6dSsg+X80AOX2U EKCJZP3EMqb7V3InCrbu dHI+ST46MVRrMJ33gNWk wMRxb5hybYq7CyCi XQZiXYC5bEofJVlpw0Mm OVQoB34jbYPkh3B2GNSk xUbvrWPzHaTiqMS6aR1c HFohqppcs6ojnrol Zazsh9xbkt43rN84L27h DVjyLUAsYVP0MLWxFSBg wDbedp0rqT8hJq5+IDxj c1ikm3aebJd0ThRg IANlxbHiqBjqUVP7q9Dd Mm96C1IikZrtq8NqKuk0 gp97sDUep7U4qHE4UMcp JZFetX2mGLcgHgB8 VLRzNwHvkK44kWGwJYvx Hk8ioSinaDboIW9kGWIo fstgSNSpdD9kGUYbsEVx rNmyCX7xXWNbveam y706ErUaOUJ3AUCheKKj H3GbpB0qTjRrMCCjWOKf J2PvzNCiCJerW226SKik JoI9PLPnnpLsK5Xb KPIrjRfdOmI5x8R1Qa3Q n9IjljafCOU1PIltYAL2 PmEhLaFsAxK9A6SxDvp0 MOEqnTqtGG0mH9Kc SCDdfaclfqobdJX0TAPl LCMynA08lCVmJYmgMc2u i2D2x013FUJxZETyiU85 Nc6erQliMRSioYNL tB9blbmsq6bsgnfiNxIp KYUwOBk1ZAe6NMWouPia DrSwZTK7SnM1DIJ8gKTy fX6niMavanxucZ8a Oyc+U57bjD2aCOM6VGP7 qarqWAYzakXkNE59TY16 S1VwMvdugMXrcFM+PGRp gnTscKkxBK1jHdNl a8ced5LgIHxzY5DnOOQy VUdbRrd5NAHlUPZ5jYG9 uM0dSRYhMOtbz5D4zGN4 F0RtamXblh1ww2ro TTRoOKikU15ymTZal5X9 GQRxxHS8EFNfeFwtKvSq iD82Mhc+RMZnmJmuw9Sx Svcpa7xep0mxjEt8 IjMwJSIgdmFsaWduPSJ0 o8TcXd07E96rYHojISIk CBJbKPVtRNNovAippr2c iG4bKa7+PGNvbCB3 mTS1bM3iXPHgWgZ4WUkn F839ImPozVCsIumut9ue a8jocKw6MhThITCsmdQb dSlxEBC6c3YiSc77 U89uWXqcYYPyTNUvUDFm FNRplGlbgd9jgG0jPl4+ AN6yc5upfi35nM73tEE+ ZLWbTJG8gIjbZDyh TVVtuY7fSDgjLkC6WGHw TyYnnC92iCMyVKmhGt6l bAfklUbgSB9dVHYpadvi j529CtVbe5dnRQGu hUFrEFenMOS3X23sx8G6 KWOyQIKmMUT1sIP6rY0z bGlnbjogbGVmdDsgdmVy xTkgCMbaCHyiY467 IHRvcDsnPlBhdGllbnQg RoIlSZw2N3BwSld6KBHk tHjlFM7kdDTkDMsuSc8e tZgdfDkoGA9gENYl szuty175YdKvx8ldYSSw bUIkHYgdVVD3I46yz1N2 DWAbDKXaAZW9cTT7eB3r bGlnbjogbGVmdDsg grNeeUlyJWetDEogJ456 IHRvcDsnPkJpcnRoIERh yCR7AH68CR14cDUyu5K3 qYK2T4GjZPTosbds senlkXQ4CCQyGQUpwW76 Dr6nuNugQq1aQFByFDJ0 EGSnmDWhL3SuvB8oXhSm MCKvUQBqA7WsnQDp KXucB445PPifGkD2LWMx keKfB3QpRIEgrUnsCdU7 e4A8Pk6DB8C6DJ89WR49 sAIlq6E5yTH6G7Pg CTDzxcyhvzcujCT0EUGi PDIgaI76Fe0bmUtjAe6i HMQmCMG2LJFeuNAgP6Lh sK8yOpUbNZAhEMBh N0AfdPNyAZclN548LCac IiL2YQEmzqKvR6QwCBMv nNooTuJ8z4Z2Kz4VGOt7 YO37UZ36hTJyk1Q0 nOI7U7OrFPKrtqigcjbj eTC6RQNqVXHlqQ09Cs5j yCyvGj7tDVCbNTU5SDRc uEZcG8FsgY9dYjXn CXWjXACzB1GqnCWxOSyt C366SHvrXzT0AJChcsMi E4SoQCJicEftNoL6p7U8 Es6LYJQwQO45UPT8 gFJ8AL32DJ58I6DgZudo dGFibGU+PHRhYmxlIHdp ZHRoPScxMDAlJyBzdHls NO6sWe3sDTWwKLLz uPxgmTJxKuEgh3zwMIXt NOibDE7qyHqsV8WpaPB2 CFHfu8s5An56R57iC2Kg dXA+HJBotKR3tFD6 qB8uMpNkUhS4QBbvM410 LbXzoCBvWngkq6hik0hv lUo6JrQ5IFMnecUxuYtw RTQ0i1EgCj19M24p IHdpZHRoPSIxNSUiIHZh jSxjnr9mcH4jUu5+PGNv nOE1jCL5lO0jQwZtRaP4 TClkF138ShUwgMMu Wqwlw4uey2qosHg0ZxMd XEMhruNvnItdDMO5l1Dh Vw21U1GajUvxj2YiDdo9 wb04fXMgv0M7zMU2 Q0ZsSSYwxlrjzYYmhJvv KM0jYEBodfmgSFHmdS9t WLOgJ5v7XnUbFpB2XVso Q6GiodK0UZPstSNo VFazVKH2Q89pa3O5FZXc MCCgHJK4pXL3xN8dyKpq bjogbGVmdDsgdmVydGlj YHjfZYzxN921ONIt zZxhZDMqjO7kOFJebZZx dFcaYI0eMHAlwyrsWeEO TExJTlMsIEFMWVNTQSBS AETWZUw8V7LnZko4 ZFZbsObyDN6bxWUjHNjl Ul6tzVmrkBonRJ9eALGm mkogREMimV7zUZTltDLz sZdlNI4uOHDzwnwa u764IuQsCOR5PXRkmEGg X0CxhN1xVsGiIPIyZZXf H1BuuGFgSTykN758IGpp OkS4NXHjdpPdU7Uw JGMfhXdvQjN3i4P9Nm8s FX7tAl4dHCy8NB19LV19 oFAeu8E2oGY3R0BfODAl mhsvhwpsbTJ0KQEv FNUoqD06fDUlTHspCn1m g8X9z277XPDyPCGuoR45 Ip4gcRydQEWrpABRdV7v lyebu8zdboqgKdVm GJUmHFa3IMz6DSIprCec XsWcNNY7IyC0FYU1jNVx yH0htNynaomeiM9eTpx+ UxdlOEAvhrB5N0Wi Sju2RZCevBjxXI9jrTRu GDxwQc8bcJckhAlkCM5y CKPzfjtgVTIvrL8qJJDc dRExbYlrYH4uCUZk ofigp745DxBaDAI5ZWPx mZBoC7VptD6bScVvUGVx KNIlW7IblKRqVPveR083 AHnsKxW2HXJaikPx H9HqKZDyhZjhMeW9l0H2 Qf2NAV3ULLX9D1IjTtj2 APUfbNdvGL8orYVeEFrn Hz4vpIrmxUdfYZ1s VHElltecSCOqnF1qAIPx nDAjjOqkPA4sJCLiwqco p074NlUyPFT8QRKapTUa S7LicT5cKnHyGXWn LJHjI7TfdZJvVLukO921 FDkrRdB7SILyejDkY0Zn DDSzzXuyGqN1y7T0Ro5B UDwvdGQ+XN69bu35 P3LjRiugLqx1ECCmZJC9 oKM3kD1eZANzVNetm9Z6 iYW1L1VlbiHldy2ub2ea JUEyNYxyR35eoFTt l0U3FKIrkNT2QLQexQpn ThIwdS64Nej+PGNvbGdy p1BfPqhck9zmi8jabWj1 IjMwJSIgdmFsaWdu HFH9h6PhXv66Z98wZXgs ZHRoPSIzMCUiIHZhbGln yn8pwC3lIf7+PGNvbCB3 pZS4iL4rTqZkHvW9 GFuwG378IbQcdMJiUpsl h7ear7xhlOa1VhPrFMJw lqChpZdnAGC0p7OsAt09 E3TzdUvlr2XeXuy5 ra97tXEsv7Z2oJY5Z2Xc ZBFkujsqgOBycAuxXD2a HUWgkbwaZUDueO2lKOTy P3a1VwRhLyP3XYuy H2OxsxQ7CEWcsHPmJIGx dJFQhF4msklof6qmmipf GrYpKPRiXRa3TZk9KFZo nYxvOjDjJYD7GwV8 DHC6iJWdqC7guPzvqult nZ8uKbg+QOh3a5tzhRDt SY5xtDY0ST02LR35uXKm a0J3rZJ5R7KeANXs uibmgyjriGB2GXUuPIMa pT08Sj7ztDyvRj9rRAJf VSQ5CBEiwWHfU7CdnO0k QgBsDUIhPCHcK2Ym lMGyRVsxW585FMddBtD2 XCCqzsEwD7UjIDPsyDyb ZaL4m6G9Jp7LPE60BS06 WZ98jCIdh3E4kRZ1 L3DdOTArmydvbvzacAY8 UYNhATQzsP60Aa8sfOuk Yh2rISXeDTL2SCSxrNQf C3UqmR8fVpPlZJHx FFYzL4GdkCMsEIlwF098 BBbvUgN0AAEnfpIpY9Jf YQJecCpdFsZ0w9J0Yg9U Wm46GN78DA54aKUr y3D6iZD4K2IpHNAxblih fgiqkPB4UZGeLOLtpN52 Td6rfZixQy1kOUSdURL6 UQWmtZKbS2ZgtU2w KePjHPPeSCBgQ2NliTGa UVopT415OYwlJwM2DVDf naVqR3OvRDEodNyeOpA8 w1S7Wi0NWBzzznc7 M0HfDqguxFI+UO83TGSv OO69gHExdHKwl1eviKc3 TbQtWZRiVFY5eBqvTKzc h0EuRLZhT46skUQc c2U (more content not included)... Normal [facility] C Urineon 03-11-2022 C Urine Urine Culture ordered as a result of parameters set on specific urine dip and urine microsopic results. >3 Organisms Consistent with Contamination Recollection suggested. Normal [facility] Comment on above: Performed By: #### 1 [id number], 36274932, 8772277, [id number], 19489676, 6144910, 2767601247, [id number], 5787020490, 8624634 #### [facility] (DEFAULT) [address] [place] [address] .Auto Diff 03-09-2022 Auto [place] % 8 % Normal 11-09 [facility] Comment on above: Performed By: #### 1 [id number], 91484227, 2013394, [id number], 44660281, 5351707, 2082445153, 1729815282, 6769511385, 5059215 #### [facility] (DEFAULT) [address] [place] [address] Baso Abs# 0.0 x10 Normal 0.0-0.2 [facility] Comment on above: Performed By: #### 1 [id number], 74309142, 7857777, 8347546079, 27057049, 0550859, 5340853282, 0131822320, 6567244348, 8332390 #### [facility] (DEFAULT) [address] [place] [address] Basophils/100 WBC (Bld) 0.3 % Normal 0.2-2.0 [facility] Comment on above: Performed By: #### 1 [id number], 30883548, 9310505, 1327565015, 30845649, 0489526, 0974902324, 1202378287, 5242553845, 0339009 #### [facility] (DEFAULT) [address] [place] [address] Eos Abs# 0.1 x10 Normal 0.0-0.4 [facility] Comment on above: Performed By: #### 1 1412461, 43703381, 2011235, 3885986257, 87296141, 6075697, 3265437543, 7687198690, 1380779642, 7724612 #### [facility] (DEFAULT) [address] [place], [place] [id number] Eosinophils/100 WBC (Bld) 1.0 % Normal 0.9-4.0 [facility] Comment on above: Performed By: #### 1 8458689, 82167766, 0091236, 5760695998, 51945250, 0320472, 1082952896, 5302597834, 7737459478, 6519639 #### [facility] (DEFAULT) [address] [place] [address] Lymph Abs# 2.0 x10 Normal 1.3-2.9 [facility] Comment on above: Performed By: #### 1 3495541, 23374187, 4020791, 7011349149, 77009706, 5207215, 1195105509, 9537610570, 0419419544, 0035075 #### [facility] (DEFAULT) [address] [place] [address] Lymphocytes/100 WBC (Bld) 35 % Normal 14-48 [facility] Comment on above: Performed By: #### 1 4431645, 93120307, 4031708, 0612764742, 88657728, 7999226, 0559044588, 3174206846, 7101471812, 8779174 #### [facility] (DEFAULT) [address] [place] [address] [place] Abs# 0.5 x10 Normal 0.0-0.8 [facility] Comment on above: Performed By: #### 1 2799291, 91991948, 7908219, 7214528197, 65292764, 2976886, 3475982091, 6902145971, 6837261500, 6006919 #### [facility] (DEFAULT) [address] [place] [address] Neut Abs# 3.2 x10 Normal 1.5-9.2 [facility] Comment on above: Performed By: #### 1 4797240, 93748222, 0772902, 2091060238, 91945524, 0741542, 8353480140, 7893521688, 9746870396, 0433320 #### [facility] (DEFAULT) [address] [place] [address] Neutrophils/100 WBC (Bld) 55 % Normal 44-88 [facility] Comment on above: Performed By: #### 1 4858906, 68686242, 4330092, 1338619382, 12133985, 6938695, 1634854821, 6905213025, 1157250590, 7682320 #### [facility] (DEFAULT) [address] [place] [address] ABORhon 03-09-2022 ABO and Rh group Nom (Bld) Hx Check: Not Found Anti-A: 4+ Anti-B: 0 Anti-D: 4+ DCon: 0 A1: mf+ B: 4+ ABORh Interp: A POS Invalid Interpretation Code [facility] Comment on above: Performed By: #### 1 [id number], 28444433, 9533781, 6130345043, 53450652, 8805242, 6033876617, 6153053300, 5447481953, 4304500 #### [facility] (DEFAULT) [address] [place] [address] ABORh Retypeon 03-09-2022 ABO and Rh group Nom (Bld) Ordered by Discern. Anti-A: 4+ Anti-B: 0 Anti-D: 4+ DCon: 0 A1: mf+ B: 4+ ABORh Retype: A POS Invalid Interpretation Code [facility] Comment on above: Performed By: #### 1 [id number], 26194824, 6280561, 5569763920, 44999667, 7397378, 4423683889, 6957951140, 5161132909, 2127693 ####[facility] (DEFAULT)[address] [place] [address] CBC w/ Auto Diffon 2 Erythrocyte distribution width (RBC) [Ratio] 13.3 % Normal 11.5-15.0 [facility] Comment on above: Performed By: #### 1 [id number], 49263802, 3270525, 0323400329, 80131581, 0765076, 1424745785, 8700843116, 8559725557, 1391871 #### [facility] (DEFAULT) [address] [place] [address] Hematocrit (Bld) [Volume fraction] 43.5 % High 33.7-40.4 [facility] Comment on above: Performed By: #### 1 6067985, 82444931, 6316796, 2097966726, 96048877, 3974236, 1122068509, 0962790646, 4308394766, 3863078 #### [facility] (DEFAULT) [address] [place] [address] Hemoglobin (Bld) [Mass/Vol] 14.1 g/dL Normal 11.3-15.9 [facility] Comment on above: Performed By: #### 1 7760233, 67190263, 1475125, 5267424413, 78794849, 0671631, 7845965495, 4038922953, 5956864479, 8428154 #### [facility] (DEFAULT) [address] [place] [address] Instr WBC 5.7 x10 Invalid Interpretation Code [facility] Comment on above: Performed By: #### 1 0527427, 66041314, 6110849, 0433568965, 88005354, 8360185, 6090705287, 9454014802, 7212917091, 0306029 #### [facility] (DEFAULT) [address] [place] [address] 57963 Man Diff? Auto Normal [facility] Comment on above: Performed By: #### 1 9126400, 38957332, 2529472, 7641888327, 65988915, 7165282, 6256497917, 2920105398, 2911532332, 5497188 #### [facility] (DEFAULT) [address] [place] [address] 88186 MCH (RBC) [Entitic mass] 28 pg Normal 24-34 [facility] Comment on above: Performed By: #### 1 7965898, 97243352, 7700900, 4623382687, 29210833, 9143880, 3739867881, 4393220911, 3218756673, 8800678 #### [facility] (DEFAULT) [address] [place] [address] 92632 MCHC (RBC) [Mass/Vol] 32 g/dL Normal 26-37 [facility] Comment on above: Performed By: #### 1 3150580, 94940789, 3319297, 6638082497, 30807867, 5552258, 8366890536, 0923626021, 6520259278, 0597465 #### [facility] (DEFAULT) [address] [place] [address] 12992 MCV (RBC) [Entitic vol] 86 fL Normal 81-100 [facility] Comment on above: Performed By: #### 1 6517761, 85330364, 8009353, 5136792540, 14467799, 5127570, 5648035125, 1063993568, 2674978655, 4386343 #### [facility] (DEFAULT) [address] [place] [address] 90761 Platelet 324 x10 Normal 138-427 [facility] Comment on above: Performed By: #### 1 4163731, 03991486, 5551085, 5741549513, 39441957, 5103228, 3171456316, 8208270444, 7790695951, 3318002 #### [facility] (DEFAULT) [address] [place] [address] 88870 Platelet mean volume (Bld) [Entitic vol] 9.8 fL Normal 6.3-10.2 [facility] Comment on above: Performed By: #### 1 6037205, 58524017, 4115879, 1388213748, 41201045, 6582861, 3809220022, 4535685696, 3109919370, 6228970 #### [facility] (DEFAULT) [address] [place] [address] 08146 RBC 5.07 x10 Normal 3.70-5.30 [facility] Comment on above: Performed By: #### 1 8282139, 33377599, 0662908, 5251659964, 72827427, 0492883, 1101934592, 8177867677, 1179577930, 7963438 #### [facility] (DEFAULT) [address] [place] [address] 84585 WBC 5.7 x10 Normal 3.5-10.5 [facility] Comment on above: Performed By: #### 1 5317119, 95979641, 6132136, 7426753956, 54448298, 8118553, 5828299689, 1790018702, 8251578888, 2697632 #### [facility] (DEFAULT) [address] [place] [address] 18385 [facility] 03-09-2022 Albumin [Mass/Vol] 4.5 g/dL Normal 3.5-5.0 [facility] Comment on above: Performed By: #### 1 4860952, 01616741, 2796250, 3298206423, 64381471, 1870688, 1478706899, 2414682664, 0292355343, 7289332 #### [facility] (DEFAULT) [address] [place] [address] 33897 Albumin/Globulin [Mass ratio] 1.2 {ratio} Low 1.4-2.6 [facility] Comment on above: Performed By: #### 1 8437510, 12698111, 2649802, 9907364931, 04701406, 0505028, 0398942620, 7593009882, 7229194739, 5798659 #### [facility] (DEFAULT) [address] [place] [address] 12413 Alk Phos 52 IU/L Normal 32-91 [facility] Comment on above: Performed By: #### 1 5693358, 20852298, 5674613, 4317756645, 98144226, 0795758, 4037669567, 8067855657, 4090722654, 5566830 #### [facility] (DEFAULT) [address] [place] [address] 42255 ALT [Catalytic activity/Vol] 37.0 U/L Normal 14.0-54.0 [facility] Comment on above: Performed By: #### 1 2413070, 08861457, 6961566, 9925079491, 78174867, 4557770, 5215422083, 3601727256, 6823237001, 0064509 #### [facility] (DEFAULT) [address] [place] [address] 50989 Anion gap [Moles/Vol] 18.0 mmol/L Normal 5.0-19.0 [facility] Comment on above: Performed By: #### 1 3560122, 67425829, 7380526, 2866870537, 61852445, 8213176, 8819730776, 9004602236, 9138850916, 9974874 #### [facility] (DEFAULT) [address] [place] [address] 42336 AST [Catalytic activity/Vol] 29 U/L Normal 15-41 [facility] Comment on above: Performed By: #### 1 6026903, 50259391, 7288034, 7121888754, 29978755, 2282665, 4443416049, 8064027410, 4507802165, 5570101 #### [facility] (DEFAULT) [address] [place] [address] 36737 Bili Total 0.7 mg/dL Normal 0.3-1.2 [facility] Comment on above: Performed By: #### 1 9373312, 65922076, 6399576, 4893235621, 79278489, 2762672, 3185643609, 0782849247, 3377201489, 9057025 #### [facility] (DEFAULT) [address] [place] [address] 38691 Calcium [Mass/Vol] 9.4 mg/dL Normal 8.9-10.3 [facility] Comment on above: Performed By: #### 1 8264517, 64771541, 6728403, 8005382090, 57633420, 2291062, 6728141992, 7612698896, 0950090991, 1557229 #### [facility] (DEFAULT) [address] [place] [address] 74440 Chloride [Moles/Vol] 100 mmol/L Low 101-111 [facility] Comment on above: Performed By: #### 1 2870883, 13551946, 7531753, 7967411459, 73207780, 9002131, 8978122354, 3710868839, 6730147420, 5128163 #### [facility] (DEFAULT) [address] [place] [address] 65827 CO2 [Moles/Vol] 24 mmol/L Normal 21-32 [facility] Comment on above: Performed By: #### 1 5560384, 78058882, 4691980, 9157516091, 07301206, 7320978, 2249266836, 3781692654, 2861505900, 5160843 #### [facility] (DEFAULT) [address] [place] [address] Creatinine [Mass/Vol] 0.75 mg/dL Normal 0.60-1.30 [facility] Comment on above: Performed By: #### 1 1027707, 62743889, 2403566, 2132273423, 28419260, 3197028, 5662125443, 9894280714, 6260722902, 3996361 #### [facility] (DEFAULT) [address] [place] [address] eGFR AA >60 Invalid Interpretation Code [facility] Comment on above: Result Comment: Manometer Technician susie Kidney disease could be indicated at eGFRs of less than 60 ml/min/1.73m2. Kidney Failure is indicated at less than 15 ml/min/1.73m2 Performed By: #### 1 2261152, 66333016, 7995266, 1409231652, 17168491, 8814518, 3184888421, 6798102388, 6729450364, 2403839 #### [facility] (DEFAULT) [address] [place] [address] eGFR Non AA >60 Invalid Interpretation Code [facility] Comment on above: Performed By: #### 1 9317382, 50523940, 9457723, 4353989292, 08438085, 1082297, 7480803916, 3973314959, 3751510660, 1831811 #### [facility] (DEFAULT) [address] [place] [address] 08936 Globulin (S) [Mass/Vol] 3.9 g/dL Normal 1.5-4.3 [facility] Comment on above: Performed By: #### 1 6538333, 49231174, 8067843, 9029464566, 63746082, 9490528, 4069236629, 0907519597, 1449385500, 8497591 #### [facility] (DEFAULT) [address] [place] [address] 42769 Glucose [Mass/Vol] 98.0 mg/dL Normal 74.0-118.0 [facility] Comment on above: Performed By: #### 1 4158971, 52501973, 3813115, 6938552179, 50671702, 6825746, 2171133468, 4245822323, 2864303955, 6103111 #### [facility] (DEFAULT) [address] [place] [address] 76373 Osmolality 274 mOsm/L Invalid Interpretation Code [facility] Comment on above: Performed By: #### 1 9798500, 30321539, 3517836, 2613516965, 59985032, 6977553, 2826232219, 6818996115, 1134795805, 8722282 #### [facility] (DEFAULT) [address] [place] [address] 02626 Potassium [Moles/Vol] 3.5 mmol/L Low 3.6-5.1 [facility] Comment on above: Performed By: #### 1 2201599, 50842882, 7475939, 9496330911, 66182111, 0755681, 5781941001, 8672383911, 0838538298, 6976620 #### [facility] (DEFAULT) [address] [place] [address] 24137 Protein [Mass/Vol] 8.4 g/dL High 6.5-8.1 [facility] Comment on above: Performed By: #### 1 0692119, 17424540, 6610566, 1311991235, 92215072, 3122140, 2000670914, 8917650832, 5015443075, 2292898 #### [facility] (DEFAULT) [address] [place] [address] 45239 Sodium [Moles/Vol] 138.0 mmol/L Normal 136.0-144.0 [facility] Comment on above: Performed By: #### 1 3011537, 98885425, 4978450, 6481651426, 35920116, 0956821, 5810752228, 0582090205, 4190743775, 0163708 #### [facility] (DEFAULT) [address] [place] [address] 17667 Urea nitrogen [Mass/Vol] 7 mg/dL Low 8-26 [facility] Comment on above: Performed By: #### 1 7910658, 12196616, 6940253, 0549795547, 62147496, 6514299, 0054176131, 9518605265, 4955688879, 8495889 #### [facility] (DEFAULT) [address] [place] [address] 84308 Urea nitrogen/Creatinine [Mass ratio] 9.0 mg/mg Normal 4.6-16.2 [facility] Comment on above: Performed By: #### 1 7982906, 82397780, 2809471, 4189183348, 12303978, 3550959, 5797861758, 4472195251, 1119280240, 3981587 #### [facility] (DEFAULT) [address] [place] [address] 42706 ED Clinical Summaryon 2021 ED Clinical Summary [facility] - Emergency Department [address] [place] [address] 36176 ED Clinical Summary PERSON INFORMATION Name: DIANE JOYCE Age: 26 Years Sex: FEMALE : 1995 MRN: Acct#: Visit Reason: Vaginal bleeding - < 20 wks ; BLEEDING, Arrival: 03/09/2022 15:56:59 Discharge: 03/09/2022 18:28:00 LOS: 000 02:32 Check In: 03/09/2022 15:56:59 Checkout:03/09/2022 18:28:00 Address: [address] [place] [address] PCP: Provider, None PROVIDER INFORMATION Provider Role [...] or bladder. States that she follows with micro[employer] infrastructure consultant in [place] Dr. Min, contacted his office and they [...] intact, SARINA: -Sclera conjunctiva: Unremarkable. NECK: -Supple (pvjw-bb-abcbl): non-tender. CARD: -Rate and rhythm: Regular -Edema: [...] the patient recommended close follow-up with her microsoft infrastructure consultant and outpatient beta hCG. In the meantime no strenuous ac (more content not included)... Normal [facility] ED Note - Physicianon 2021 ED Note [...] or bladder. States that she follows with micro[employer] infrastructure consultant in [place] Dr. Min, contacted his office and they [...] intact, SARINA: -Sclera conjunctiva: Unremarkable. NECK: -Supple (kcte-bw-hbqjx): non-tender. CARD: -Rate and rhythm: Regular -Edema: [...] the patient recommended close follow-up with her microsoft infrastructure consultant and outpatient beta hCG. In the meantime no strenuous activity, sexual activity if having any worsening issues I recommended he return to the emergency department or going directly to [employer] infrastructure consultant. Patient indicated she understood was in agreement. [...] eGFR AA >60 (more content not included)... [facility] ED Note-Nursingon 03-09-2022 Beta HCG ( test) Ql (U) Patient arrives with c/o vaginal bleeding during . States she took a at home test a week ago and estimates being 5 to 6 weeks along. Patient has some mild cramping yesterday 11/07 at has since went away and light vaginal bleeding today. This is the patients second , 1 live . Normal [facility] ED Patient Summaryon 022 ED Patient Summary [facility] - Emergency Department [address] [place] [address] PATIENT DISCHARGE INSTRUCTIONS Patient Information Name: DIANE [...] (N93.9) Vaginal bleeding - < 20 wks ([id number]) Prescription Information: If you have been given a prescription for narcotics, seek immediate medical attention if you have any difficulty breathing or any sudden status changes such as confusion and sleepiness. If you or anyone you know is experiencing suicidal thoughts, mental health, alcohol and/or drug addiction problems; contact the [facility] 21/05 Crisis Hotline -Text 4HOLU cj 963826. If you received any narcotics, sedation, or [...] documents With: Address: When: Follow-up with your microsoft infrastructure consultant for reevaluation next few days. Within 1 to 2 days Comments: Follow-up with microsoft infrastructure consultant for reevaluation next few days for reevaluation and outpatient quantitative hCG. Return immediately for any worsening issues such as increasing abdominal pains, increasing vaginal bleeding, fevers, or any other problems. With: Address: When: Stephanie Valerie Within 3 to 5 days Comments: Screed Operator Medication Information: The exam and treatment you received today in the [facility] Emergency Department were for an urgent problem and are not intended as complete care. It is important for you to follow up with a doctor, nurse practitioner, or physician?s delivery assistant for ongoing care. If your symptoms [...] so we can reach you if necessary. [facility] Emergency Department has provided you with a complete list of medications post discharge. Please inform your team primary care physician/provider of your visit and for further instruction [...] The sec (more content not included)... Normal [facility] Extra Greenon 03-09-2022 Tube Collected Yes Invalid Interpretation Code [facility] Comment on above: Performed By: #### 1 [id number], [id number], 5514317, [id number], 63746414, 5969211, [id number], 7808382610, [id number], 7032589 #### [facility] (DEFAULT) [address] [place] [address] PT/PTTon 03-09-2022 INR Coag (PPP) [Relative time] 0.95 {INR} Normal 0.91-1.11 [facility] Comment on above: Performed By: #### 1 [id number], 09032402, 5195005, 5847791426, 45891752, 6488935, 4490495374, 4127257607, 0257666679, 5084462 #### [facility] (DEFAULT) [address] [place] [address] 00447 PT 10.3 second(s) Normal 9.7-11.8 [facility] Comment on above: Performed By: #### 1 [id number], 27286281, 6528404, 3854902779, 68063992, 6038638, 0054652215, 5313071683, 9362671533, 6787287 #### [facility] (DEFAULT) [address] [place] [address] 94599 PTT 34 second(s) Normal 25-35 [facility] Comment on above: Performed By: #### 1 0594606, 84595531, 4643281, [id number], 16455051, 7586363, 8448802788, 1573287856, 8126020299, 5854857 #### [facility] (DEFAULT) [address] [place] [address] RhIG.on 03-09-2022 RhIG. No. Vials RhI RhIG Candidate?: No Date to Give: [id number] RhIG Status: RhIG Ready [facility] Comment on above: Performed By: #### 1 [id number], 32616895, 9653016, 3660868935, 21265196, 9873124, 2254649398, 9384471232, 2477322880, 2557076 ####[facility] (DEFAULT)[address] [place] [address] UA Scrgo7zx 03-09-2022 UA Amorph. 1+ [facility] Comment on above: Order Comment: Urina lysis Microscopic order added on by 1stdibs Expert Rules system. Performed By: #### 5 2156902, 3923102, [id number] ####[facility] (DEFAULT)[address] [place] [address] UA Bacteria 2+ Normal [facility] Comment on above: Order Comment: Urina lysis Microscopic order added on by Discern Expert Rules system. Performed By: #### 5 7341443, 6153838, [id number] ####[facility] (DEFAULT)[address] [place] [address] UA Mucous 3+ Normal [facility] Comment on above: Order Comment: Urina lysis Microscopic order added on by Discern Expert Rules system. Performed By: #### 5 7214729, 5272455, [id number] ####[facility] (DEFAULT)[address] [place] [address] UA RBC >100 [facility] Comment on above: Order Comment: Urina lysis Microscopic order added on by Discern Expert Rules system. Performed By: #### 5 2415989, 8405077, [id number] ####[facility] (DEFAULT)[address] [place] [address] UA Squam Epi Many [facility] Comment on above: Order Comment: Urina lysis Microscopic order added on by 1stdibs Expert Rules system. Result Comment: DMITRY VERGARA RN IN ER. RUN UNINALYSIS AND CULTURE ON THIS SPECIMEN. NO RECOLLECT. Performed By: #### 5 2191240, 8138456, [id number] ####[facility] (DEFAULT)[address] [place] [address] UA WBC 3-5 [facility] Comment on above: Order Comment: Urina lysis Microscopic order added on by Discern Expert Rules system. Performed By: #### 5 5942211, 4150785, [id number] ####[facility] (DEFAULT)[address] [place] [address] UA w Culture if Ind Standard on 03-09-2022 Breakpoint UA [facility] Comment on above: Performed By: #### 1 2997011, 36026540, 8881941, 9821750172, 90385541, 2298767, 2395060235, 0606520921, 5494546346, 6286261 #### [facility] (DEFAULT) [address] [place] [address] Color (U) Yellow [facility] Comment on above: Performed By: #### 1 7125129, 99633627, 6061589, 9176979162, 06091915, 7766640, 3653042459, 4839853296, 6138718565, 8015940 #### [facility] (DEFAULT) [address] [place] [address] Culture? Indicated Invalid Interpretation [facility] Comment on above: Result Comment: Resu lt created by rule GL_MAGR_ADD_UA_CULT Result created by rule GL_MAGR_ADD_UA_CULT Result created by rule GL_MAGR_ADD_UA_CULT1 Result created by rule GL_MAGR_ADD_UA_CULT Performed By: #### 1 8840782, 42219382, 2521130, 9024054418, 12020562, 9981853, 2003843368, 1523322094, 2047178680, 4930629 #### [facility] (DEFAULT) [address] [place] [address] Glucose (U) [Mass/Vol] Negative Normal [facility] Comment on above: Performed By: #### 1 9478865, 92374849, 2764699, 7046311414, 38179790, 9284991, 6109104004, 9342586246, 1856889803, 1782613 #### [facility] (DEFAULT) [address] [place] [address] 27[address] Ketones Ql (U) 40 Normal [facility] Comment on above: Performed By: #### 1 9931635, 99498977, 1735114, 6196441237, 65322758, 6456697, 4263504871, 6737681559, 6528289593, 7597362 #### [facility] (DEFAULT) [address] [place] [address] 23674 Micro? Indicated Invalid Interpretation Code [facility] Comment on above: Result Comment: Resu lt created by rule GL_MAGR_ADD_UA_MICRO Performed By: #### 1 9251216, 25580395, 3705020, 3303782280, 02940965, 3301292, 1968031203, 4610566131, 2680393516, 5290740 #### [facility] (DEFAULT) [address] [place] [address] UA Bilirubin Negative Normal [facility] Comment on above: Performed By: #### 1 7867592, 39901371, 1457019, 4467623255, 53413890, 7739465, 0619464378, 7877739712, 3708540004, 2231712 #### [facility] (DEFAULT) [address] [place] [address] 11565 UA Blood LARGE Abnormal NEGATIVE [facility] Comment on above: Performed By: #### 1 9792614, 46482595, 1891361, 3304145657, 91354270, 5127308, 7769115095, 2178863780, 8130112007, 3660681 #### [facility] (DEFAULT) [address] [place] [address]28[address] UA Clarity SL CLOUDY Abnormal CLEAR [facility] Comment on above: Performed By: #### 1 3693283, 24708392, 5969493, 1491514627, 85942266, 5389572, 7586846905, 4739650535, 1444844906, 0407464 #### [facility] (DEFAULT) [address] [place] [address] 13400 UA Leuk Est TRACE Abnormal NEGATIVE [facility] Comment on above: Performed By: #### 1 6515009, 97009060, 0020945, 0100315185, 33815483, 1446568, 9411657021, 5216427572, 8586827292, 5300985 #### [facility] (DEFAULT) [address] [place] [address] UA Nitrite Negative Normal NEGATIVE [facility] Comment on above: Performed By: #### 1 0926009, 42319732, 9388599, 8234191308, 51833940, 9662581, 2144845414, 4676775018, 1719290231, 6714586 #### [facility] (DEFAULT) [address] [place] [address] UA pH 6.5 Normal 5-8 [facility] Comment on above: Performed By: #### 1 4218622, 49132731, 2010373, 3556620364, 00766058, 4672722, 1765918440, 6940266532, 9505566201, 8828523 #### [facility] (DEFAULT) [address] [place] [address] UA Protein Negative Normal NEGATIVE [facility] Comment on above: Performed By: #### 1 8531833, 78479092, 5659406, 8116903609, 00827038, 6766530, 4837735836, 1602717409, 1743737977, 5253425 #### [facility] (DEFAULT) [address] [place] [address]1492 UA Spec Grav 1.015 Normal 1.001-1.035 [facility] Comment on above: Performed By: #### 1 2349754, 55705009, 2066822, 0391987292, 50068174, 5796787, 5550743744, 5161473126, 3058127255, 5160126 #### [facility] (DEFAULT) [address] [place] [address] UA Urobilinogen 0.2 mg/dL Normal 0.2-1.0 [facility] Comment on above: Performed By: #### 1 5059148, 41856360, 4000833, 7422971631, 24966286, 6742068, 1225808325, 1849536238, 5235071469, 9484285 #### [facility] (DEFAULT) [address] [place] [address] Urine Source Clean Catch Normal [facility] Comment on above: Performed By: #### 1 4793392, 88154401, 2291290, 1660700788, 36013563, 7604733, 2453683460, 4890212423, 3463677811, 6199945 #### [facility] (DEFAULT) [address] [address] US 1st Trimesteron 03-09-2022 US 1st Trimester [...] Sebastian Guzman 03/09/22 6:10 pm Technologist: PM [facility] US Transvaginalon 03-09-2022 US Transvaginal EXAM: [...] Sebastian Guzman 03/09/22 6:10 pm Technologist: PM [facility] hCG Quantitativeon 2 hCG Quantitative 7.1 mIU/mL High 0.0-0.6 [facility] Comment on above: Result Comment: Post -Menopausal Reference Range is: 0.1-11.6 mIU/mL Performed By: #### 1 2836770, 29905484, 2515783, 5425251909, 39370551, 3642050, 2161762734, 4677440189, 6945941000, 1572030 #### [facility] (DEFAULT) [address] [place] [address] Social History Date Type Detail Facility Start: 12-13-2023 Alcohol intake Lifetime non-d иван (finding) [facility] Start: 10-25-2023 [facility] Start: 03-12-2023 Sex Assigned At N [facility] Other Start: 03-12-2023 Tobacco smoking status NHIS Never smoked tobacco [facility] Start: 03-12-2023 Tobacco use and exposure Smokeless tobacco non-user [facility] Start: 03-12-2023 History of Social function [facility] Start: 1995 Sex Assigned At Female F [facility] Start: 1995 Sex Assigned At Not on file N [facility] Unknown if ever smoked [place] [facility] Other Vital Signs Date Time Vital Sign Value Performing Clinician Facility 12-13-2023 15:00-0500 Body mass index (BMI) [Ratio] 46.69 kg/m2 [facility] Nurse [facility] 12-13-2023 15:00-0500 Body weight 123.38 kg [facility] Nurse [facility] 12-13-2023 15:00-0500 Diastolic blood pressure 78 mm[Hg] [facility] Nurse [facility] 12-13-2023 15:00-0500 Systolic blood pressure 128 mm[Hg] [facility] Nurse [facility] 05-15-2023 18:30-0400 Body height 161.29 cm Linsey Witt Other [facility] Other 05-15-2023 18:30-0400 Body mass index (BMI) [Ratio] 43.41 kg/m2 Linsey Witt Other [facility] Other 05-15-2023 18:30-0400 Body temperature 99.2 [degF] Linsey Witt Other [facility] Other 05-15-2023 18:30-0400 Body weight 112.95 kg Linsey Witt Other [facility] Other 05-15-2023 18:30-0400 Respiratory rate 18 /min Linsey Witt Other [facility] Other 05-15-2023 18:30-0400 SaO2% (BldA) [Mass fraction] 99 % Linsey Witt Other [facility] Other 05-09-2023 11:00-0400 Body height 161.29 cm Gissel Santana Other [facility] Other 05-09-2023 11:00-0400 Body mass index (BMI) [Ratio] 43.59 kg/m2 Gissel Santana Other [facility] Other 05-09-2023 11:00-0400 Body weight 113.4 kg Gissel Santana Other [facility] Other 05-09-2023 11:00-0400 Diastolic blood pressure 83 mm[Hg] Gissel Santana Other [facility] Other 05-09-2023 11:00-0400 Systolic blood pressure 119 mm[Hg] Gissel Santana Other [facility] Other 04-12-2023 09:00-0400 Body height 161.29 cm Gissel Santana Other [facility] Other 04-12-2023 09:00-0400 Body mass index (BMI) [Ratio] 43.59 kg/m2 Gissel Santana Other [facility] Other 04-12-2023 09:00-0400 Body weight 113.4 kg Gissel Santana Other [facility] Other 06-15-2023 09:00-0400 Diastolic blood pressure 88 mm[Hg] Gissel Santana Other [facility] Other 04-12-2023 09:00-0400 Systolic blood pressure 129 mm[Hg] Gissel Santana Other [facility] Other 10-11-2022 02:06-0500 Body weight 111.[address] ESTELLA MIN . [facility] Comment on above: Performed By: #### AFPMAT #### [facility] [address] [address] [address] Alexsander Dickinson Clinical Notes 03-09-2022 to [...] or undercooked meat, and stay away from [facility]. Patient has also been advised to [...] Meenakshi Rosenthal MA documented in this encounter [facility] 05-15-2023 Evaluation note Encounter Date Diagnosis [...] understanding and is agreeable to treatment plan. [facility] Other 07-12-2023 Evaluation note* Encounter Date Diagnosis Assessment Notes Treatment Notes Treatment Clinical Notes Apr, Anxiety disorder, unspecified (ICD-10 - F41.9) Pt states that she, and her , agree that she is doing better on the medication. Continues to have stress, but is dealing more appropriately. Would like to continue this med and this dose. f/u6 months, sooner if needed. [facility] Other 06-15-2023 Evaluation note* Encounter Date Diagnosis [...] help for overwhelm. followup in 1 month [facility] Other 05-12-2022 NoteEducation Materials Cardiovascular Hypertension, Adult [...] without skin, beans, e (more content not included)...[facility] noteNo assessment information availableFirelands Regional Medical [facility] Work Phone: Evaluation noteNo InformationNortHospital of the University [facility] [employer] Other Evaluation note* Diagnosis Missed menses documented in this encounter [facility] N[facility]ative - Reported* Type Description Date Surgical History C-sect 2019 Surgical History C-sect 2022 [facility] Other History general Narrative - Reported* Type Description Date Medical History Anxiety disorder, unspecified Surgical History C-sect 2019 Surgical History C-sect 2022 Hospitalization History SEE SURGICAL HX [facility] Other History general Narrative - Reported* Type Description Date Medical History Anxiety disorder, unspecified Medical History Gestational diabetes Surgical History C-sect 2019 Surgical History C-sect 2022 Hospitalization History SEE SURGICAL HX [facility] Other Summary Purpose Family History No Family History Records FoundNo Family History Records FoundNo Family History Records FoundNo Family History Records Found Advance Directives No Advanced Directives Records FoundNo Advanced Directives Records FoundNo Advanced Directives Records FoundNo Advanced Directives Records Found Additional Source Comments INFORMATION SOURCE (unrecogn ized section and content) DATE CREATED AUTHOR 03/18/2022 [facility] DATE CREATED AUTHOR AUTHOR'S ORGANIZ ATION 02/15/2023 [facility] DATE CREATED AUTHOR AUTHOR'S ORGANIZ ATION 05/24/2023 [facility] DATE CREATED AUTHOR AUTHOR'S ORGANIZ ATION 04/19/2024 [facility] EPIC REASON FOR VISIT (unrecogniz ed section and content) Reason Comments Amenorrhea Care Teams (unrecognized sec tion and content) Team Status: Inactive Member Role Status Dates Linsey Witt APRN Attending Provider Active Residential Program Worker Relationship Specialty Start Date End Date Gissel Santana MD [address] [place] [id number] PCP - General Family Medicine 04/02/23 Goals [...] BE BASED ON THE PRIMARY CLINICAL RECORDS. [facility]. provides no warranty or guarantee of the accuracy or completeness of information in this document.
== END 2024-04-24 09:29 | disposition home or self-care (01) ==
LOC: US 09:29
PROVIDERS: Visit Provider Obstetrics & Gynecology
DX: O24.419 Gestational diabetes mellitus in pregnancy, unspecified control (principal); Z3A.29 29 weeks gestation of pregnancy
CPT/HCPCS: 76816

== ENCOUNTER 2024-05-21 06:59 | Outpatient (OUT) | payer BC, SELFPAY ==
--- NOTE | 2024-05-21 | US_ITS ---
[address] [address] Patient Name: VADIM CONSTANTINO MRN: [id number] date: 1995 Sex: F Assigned Patient Location: [facility] Current Patient Location: [facility] Accession/Order Number: [id number] Exam Date: 05/21/2024 11:05 Report Date: 05/21/2024 12:18 At the request of: ESTELLA BUENO Procedure: US OB growth EXAMINATION: US OB growth HISTORY: Gestational diabetes mellitus O24.419 COMPARISON: No relevant comparison available. FINDINGS: Heart Rate: 163.64 bpm Amniotic Fluid Volume: 18.4 cm, largest fluid pocket 6.4 cm Number: 1 Position: Cephalic presentation, longitudinal lie BIOMETRY: BPD: 8.09 cm; 32 weeks 3 days; 60 % HC: 30.66 cm; 34 weeks 1 day; 75.10 % AC: 29.91 cm; 33 weeks 6 days; 93.70 % FL: 5.87 cm; 30 weeks 5 days; 11 % EFW: 2066.86 g; 72.20 %, 4 lbs. 9 oz. FL/AC: 19.64 FL/BPD: 72.65 HC/AC: 1.03 GESTATIONAL AGE: Age by EDC: 31 weeks 6 days NILE by EDC: 2024-07-17 Age by US: 32 weeks 6 days NILE by US: 2024-07-10 US/US OB growth IMPRESSION: Normal interval growth Electronically authenticated by: SEBASTIAN HENRY Date: 05/21/2024 12:18
--- OUTSIDE RECORDS SUMMARY | 2024-05-21 07:02 | XMS_ITS ---
Patient Summarization (C-CDA 2.1 CCD) Created on: May 21, 2024 DIANE JOYCE : 1995 Sex: Female Author Organization Sample organization Care Team Providers Care Shank Pinner Name Role Phone MECHELLE ., DR SORIA [...] DR SORIA Consulting Unavailable MECHELLE ., DR SROIA Admitting Unavailable ZIEBER, DR DEE Green Consulting [...] Unavailable ZIEBER, DR DEE Green Consulting Unavailable LEOLISSETT Small Consulting Unavailable YADIRA, YOEL Consulting Unavailable SANTANA, [...] NEW Attending Unavailable MECHELLE, ESTELLA Attending Unavailable MECHELLE, ESTELLA Attending Unavailable Encounters Encounter Date Encounter Type Care Provider Facility Start: 05-05-2024 End: 05-05-2024 ambulatory ESTELLA MECHELLE Not Available Start: 04-17-2024 End: 04-17-2024 ambulatory ESTELLA MECHELLE [...] 11-06-2023 End: 11-06-2023 ambulatory Gissel Santana Other [employer] Other Start: 11-06-2023 Encounter by donald Santana [facility] Start: 05-22-2023 End: 05-22-2023 ambulatory Olive Howard Other [employer] Other Start: 05-22-2023 Telephone encounter Olive Howard [facility] Start: 05-15-2023 End: 05-15-2023 ambulatory Linsey Witt Facility:[facility] Start: 05-15-2023 End: 05-15-2023 Departed Referred FIELD SERVICER Linsey Witt Work Phone: [facility] [place] Work Phone: Start: 05-15-2023 End: 05-15-2023 ambulatory FIELD SERVICER Linsey Witt Work Phone: [facility] Work Phone: Start: 05-15-2023 Office outpatient vi sit 25 minutes Linsey Witt [facility] Start: 05-09-2023 End: 05-09-2023 ambulatory Gissel Santana Other [employer] Other Start: 05-09-2023 Office outpatient vi sit 15 minutes Gissel Santana [facility] Start: 04-12-2023 End: 04-12-2023 ambulatory Gissel Santana Other [employer] Other Start: 04-12-2023 Encounter for genera l adult medical examination without abnormal findings Gissel Santana [facility] Start: 04-12-2023 Periodic preventive med est patient 18-39 yrs Gissel Santana [facility] Start: 02-15-[address] ESTELLA [...] Payer Category Payer Unknown BCBS BCBS xxxxxx [id number] 2020-Present [phone] [address] [place] [address] [id number] 1995 Unknown [id number] 2.16.840.1.106702.3.579.2.593 1995 Unknown [id number] 2.16.840.1.220133.3.579.2.593 1995 Unknown [id number] 2.16.840.1.874861.3.579.2.593 1994 Unknown [id number] 2.16.840.1.915107.3.579.2.593 1994 Unknown [id number] 2.16.840.1.237598.3.579.2.593 1994 Unknown [id number] 2.16.840.1.672120.3.579.2.593 1994 Unknown [id number] 2.16.840.1.467693.3.579.2.593 1994 Unknown [id number] 2.16.840.1.946140.3.579.2.593 1994 Unknown [id number] 2.16.840.1.474821.3.579.2.593 1994 Unknown [id number] 2.16.840.1.974257.3.579.2.593 1994 Unknown [id number] 2.16.840.1.953557.3.579.2.593 1994 Unknown [id number] 2.16.840.1.782208.3.579.2.593 1994 Unknown [id number] 2.16.840.1.490950.3.579.2.593 1994 Unknown [id number] 2.16.840.1.108326.3.579.2.593 1994 Unknown [id number] 2.16.840.1.537787.3.579.2.593 1994 Unknown [id number] 2.16.840.1.559576.3.579.2.593 1994 Unknown [id number] 2.16.840.1.644933.3.579.2.593 1994 Unknown [id number] 2.16.840.1.821578.3.579.2.593 1994 Unknown [id number] 2.16.840.1.111964.3.579.2.593 1994 Unknown [id number] 2.16.840.1.274358.3.579.2.593 1994 Unknown [id number] 2.16.840.1.109150.3.579.2.593 1994 Unknown [id number] 2.16.840.1.467297.3.579.2.593 1994 Unknown [id number] 2.16.840.1.967590.3.579.2.593 1994 Unknown [id number] 2.16.840.1.529879.3.579.2.593 1994 Unknown [id number] 2.16.840.1.144044.3.579.2.1259 1994 Unknown [id number] 2.16.840.1.491788.3.579.2.1259 1994 Unknown [id number] 2.16.840.1.597886.3.579.2.1259 1994 Unknown [id number] 2.16.840.1.092983.3.579.2.1259 1994 Unknown [id number] 2.16.840.1.758610.3.579.2.1259 1994 Unknown [id number] 2.16.840.1.783808.3.579.2.1259 1960 Self-pay 1960 Unknown [id number] Unknown [id number] 2.16.840.1.555882.3.579.2.593 Unknown [id number] 2.16.840.1.492060.3.579.2.531 Plan of Treatment Date Care Activity Detail Author Start: 01-14-2024 End: 01-14-2024 Patient encounter procedure 01/14/2024 8:30 AM EDT Routine [facility] [address] [place] [id number] Estella Min, [address] [place] [address] [facility] Start: 12-13-2023 End: 12-13-2024 ABO/Rh ABO/Rh Lab Routine Missed menses Expected: 12/13/2023 (Approximate), Expires: 12/13/2024 [facility] Comment on above: Expected: 12/13/2023 (Approximate), Expires: 12/13/2024 Start: 12-13-2023 End: 12-13-2024 Blood type and Indirect antibody screen panel - Blood Type and screen Lab Routine Missed menses Expected: 12/13/2023 (Approximate), Expires: 12/13/2024 [facility] Work Phone: Comment on above: Expected: 12/13/2023 (Approximate), Expires: 12/13/2024 Start: 12-13-2023 End: 12-13-2024 Thyroid panel with tsh Thyroid panel with tsh Lab Routine Missed menses Expected: 12/13/2023 (Approximate), Expires: 12/13/2024 [facility] Comment on above: Expected: 12/13/2023 (Approximate), Expires: 12/13/2024 Start: 12-13-2023 End: 12-13-2024 US Pelvis transvaginal US OB transvaginal Imaging Routine Missed menses Expected: 12/13/2023 (Approximate), Expires: 12/13/2024 [facility] Comment on above: Expected: 12/13/2023 (Approximate), Expires: 12/13/2024 Start: 05-15-2023 Throat culture Throat Culture [place] Bacteria identified in Urine by Culture Urine culture Microbiology Routine Missed menses Ordered: 12/13/2023 [facility] Comment on above: Ordered: 12/13/2023 CBC W Auto Different ial panel - Blood CBC and differential Lab Routine Missed menses Ordered: 12/13/2023 [facility] Comment on above: Ordered: 12/13/2023 Hemoglobin A1c/Hemoglobin.total in Blood Hemoglobin A1c Lab Routine Missed menses Ordered: 12/13/2023 [facility] Comment on above: Ordered: 12/13/2023 Hepatitis B virus surface Ag [Presence] in Serum or Plasma by Immunoassay Hepatitis B surface antigen Lab Routine Missed menses Ordered: 12/13/2023 [facility] Comment on above: Ordered: 12/13/2023 Hepatitis C virus Ab [Presence] in Serum or Plasma by Immunoassay Hepatitis C antibody Lab Routine Missed menses Ordered: 12/13/2023 [facility] Comment on above: Ordered: 12/13/2023 HIV-1/HIV-2 antigen/antibody combination immunoassay HIV-1 and HIV-2 antibodies Lab Routine Missed menses Ordered: 12/13/2023 [facility] Comment on above: Ordered: 12/13/2023 Reagin Ab [Presence] in Serum by RPR RPR Lab Routine Missed menses Ordered: 12/13/2023 [facility] Comment on above: Ordered: 12/13/2023 Rubella antibody, IgG Rubella an tibody, IgG Lab Routine Missed menses Ordered: 12/13/2023 [facility] Comment on above: Ordered: 12/13/2023 Problems Active [...] (U)o n 12-13-2023 Preg Test, Ur Positive [facility] No Panel Informationon 12-13 Interpretation and review of laboratory results Abnormal [facility] Urinalysis macro (dipstick) panel (U)on 12-13-2023 Bilirubin, UA Negative Negative - 4(70) +++ mg/dL [facility] Blood, UA Negative Negative - 50 Sal/mcL [facility] Clarity, UA Clear [facility] Color, UA Yellow [facility] Glucose, UA Negative Negative - 2000(110) ++++ mg/dL [facility] Ketones, UA Positive Negative - 160(16) ++++ mg/dL [facility] Leukocytes, UA Negative Negative - 500+++ Lizzy/mcL [facility] Nitrite, UA Negative Negative - Positive [facility] pH, UA 7.0 5 - [facility], [facility]A Positive Negative - 2000(20) ++++ mg/dL [facility] Spec Grav, UA 1.030 1 - 1.03 [facility] Urobilinogen, UA 0.2 0.2 - 12 mg/dL [facility] Quick Strepon 05-15-2023 S. pyogenes Org specific cx Ql (Throat) Negative [facility] [employer] Other Quick Strep [facility] [employer] Other Throat Cultureon 05-15-2023 Throat culture Heavy Normal Respiratory John 2 Days PERFORMED BY: [place] [address] PATHOLOGIST AUTO SLIP COVER INSTALLER ARACELI HAYWOOD M.D. Normal [facility] Comment on above: Performed By: #### C UT #### [address] GROUP B STREP CULTUREon 01-27 S. [...] S F Tetracycline <=0.25 S F Normal [facility] Comment on above: Performed By: #### A FPMAT #### [facility] [address] [place] [address] Dr. Alexsander Dickinson CBC AUTO DIFFon 02-02-2023 BASO # 0.0 103/ul Normal 0.0-0.1 [facility] Comment on above: Performed By: #### C BC #### [facility] [address] [place] [address] Dr. Alexsander Dickinson Basophils/100 WBC (Bld) 0.2 % Normal 0.2-2.0 [facility] Comment on above: Performed By: #### C BC #### [facility] [address] [place] [address] Dr. Alexsander Dickinson EO # 0.0 103/ul Normal 0.0-0.7 [facility] Comment on above: Performed By: #### C BC #### [facility] [address] [place] [address] Dr. Alexsander Dickinson Eosinophils/100 WBC (Bld) 0.0 % Critically low 0.9-7.0 [facility] Comment on above: Performed By: #### C BC #### [facility] [address] [place] [address] Dr. Alexsander Dickinson Erythrocyte distribution width (RBC) [Ratio] 12.5 % Normal 11.0-15.0 [facility] Comment on above: Performed By: #### C BC #### [facility] [address] [place] [address] Dr. Alexsander Dickinson Hematocrit (Bld) [Volume fraction] 32.9 % Critically low 36.0-48.0 [facility] Comment on above: Performed By: #### C BC #### [facility] [address] [place] [address] Dr. Alexsander Dickinson Hemoglobin (Bld) [Mass/Vol] 10.7 g/dL Critically low 12.0-16.0 [facility] Comment on above: Performed By: #### C BC #### [facility] [address] [place] [address] Dr. Alexsander Dickinson IG # 0.12 10e3/ul Critically high 0.00-0.03 [facility] Comment on above: Performed By: #### C BC #### [facility] [address] [place] [address] Dr. Alexsander Dickinson IG % 0.7 % Critically high 0.0-0.5 [facility] Comment on above: Performed By: #### C BC #### [facility] [address] [place], [place] [id number] Dr. Alexsander Dickinson LYMPH # 1.1 103/ul Critically low 1.2-3.8 [facility] Comment on above: Performed By: #### C BC #### [facility] [address] [place] [address] Dr. Alexsander Dickinson Lymphocytes/100 WBC (Bld) 6.4 % Critically low 20.5-60.0 [facility] Comment on above: Performed By: #### C BC #### [facility] [address] [place] [address] Dr. Alexsander Dickinson MANUAL DIFF REQ NO Normal [facility] Comment on above: Performed By: #### C BC #### [facility] [address] [place] [address] Dr. Alexsander Dickinson MCH (RBC) [Entitic mass] 26.1 pg Critically low 26.7-34.0 [facility] Comment on above: Performed By: #### C BC #### [facility] [address] [place] [address] Dr. Alexsander Dickinson MCHC (RBC) [Mass/Vol] 32.5 g/dL Normal 29.9-35.2 [facility] Comment on above: Performed By: #### C BC #### [facility] [address] [place] [address] Dr. Alexsander Dickinson MCV (RBC) [Entitic vol] 80.2 fL Critically low 81.0-99.0 [facility] Comment on above: Performed By: #### C BC #### [facility] [address] [place] [address] Dr. Alexsander Dickinson MONO # 0.4 103/ul Normal 0.3-0.8 [facility] Comment on above: Performed By: #### C BC #### [facility] [address] [place] [address] Dr. Alexsander Dickinson Monocytes/100 WBC (Bld) 2.1 % Normal 1.7-12.0 [facility] Comment on above: Performed By: #### C BC #### [facility] [address] [place] [address] Dr. Alexsander Dickinson NEUT # 15.5 103/ul Critically high 1.4-6.5 [facility] Comment on above: Performed By: #### C BC #### [facility] [address] [place] [address] Dr. Alexsander Dickinson Neutrophils/100 WBC (Bld) 90.6 % Critically high 43.0-75.0 [facility] Comment on above: Performed By: #### C BC #### [facility] [address] [place] [address] Dr. Alexsander Dickinson Platelet mean volume (Bld) [Entitic vol] 10.7 fL Normal 9.5-13.5 [facility] Comment on above: Performed By: #### C BC #### [facility] [address] [place] [address] Dr. Alexsander Dickinson PLT 310 103/ul Normal 150-450 [facility] Comment on above: Performed By: #### C BC #### [facility] [address] [place] [address] Dr. Alexsander Dickinson RBC 4.10 106/ul Critically low 4.20-5.40 [facility] Comment on above: Performed By: #### C BC #### [facility] [address] [place] [address] Dr. Alexsander Dickinson WBC 17.1 103/ul Critically high 4.0-11.0 [facility] Comment on above: Performed By: #### C BC #### [facility] [address] [place] [address] Dr. Alexsander Dickinson CBC AUTO DIFFon 02-01-2023 BASO # 0.0 103/ul Normal 0.0-0.1 [facility] Comment on above: Performed By: #### A 1C #### [facility] [address] [place] [address] Dr. Alexsander Dickinson Basophils/100 WBC (Bld) 0.2 % Normal 0.2-2.0 [facility] Comment on above: Performed By: #### A 1C #### [facility] [address] [place] [address] Dr. Alexsander Dickinson EO # 0.0 103/ul Normal 0.0-0.7 [facility] Comment on above: Performed By: #### A 1C #### [facility] [address] [place] [address] Dr. Alexsander Dickinson Eosinophils/100 WBC (Bld) 0.4 % Critically low 0.9-7.0 [facility] Comment on above: Performed By: #### A 1C #### [facility] [address] [place] [address] Dr. Alexsander Dickinson Erythrocyte distribution width (RBC) [Ratio] 12.9 % Normal 11.0-15.0 [facility] Comment on above: Performed By: #### A 1C #### [facility] [address] [place] [address] Dr. Alexsander Dickinson Hematocrit (Bld) [Volume fraction] 34.2 % Critically low 36.0-48.0 [facility] Comment on above: Performed By: #### A 1C #### [facility] [address] [place] [address] Dr. Alexsander Dickinson Hemoglobin (Bld) [Mass/Vol] 11.4 g/dL Critically low 12.0-16.0 [facility] Comment on above: Performed By: #### A 1C #### [facility] [address] [place] [address] Dr. Alexsander Dickinson IG # 0.04 10e3/ul Critically high 0.00-0.03 [facility] Comment on above: Performed By: #### A 1C #### [facility] [address] [place] [address] Dr. Alexsander Dickinson IG % 0.5 % Normal 0.0-0.5 [facility] Comment on above: Performed By: #### A 1C #### [facility] [address] [place] [address] Dr. Alexsander Dickinson LYMPH # 2.1 103/ul Normal 1.2-3.8 [facility] Comment on above: Performed By: #### A 1C #### [facility] [address] [place] [address] Dr. Alexsander Dickinson Lymphocytes/100 WBC (Bld) 23.9 % Normal 20.5-60.0 [facility] Comment on above: Performed By: #### A 1C #### [facility] [address] [place] [address] Dr. Alexsander Dickinson MANUAL DIFF REQ NO Normal [facility] Comment on above: Performed By: #### A 1C #### [facility] [address] [place] [address] Dr. Alexsander Dickinson MCH (RBC) [Entitic mass] 27.0 pg Normal 26.7-34.0 [facility] Comment on above: Performed By: #### A 1C #### [facility] [address] [place] [address] Dr. Alexsander Dickinson MCHC (RBC) [Mass/Vol] 33.3 g/dL Normal 29.9-35.2 [facility] Comment on above: Performed By: #### A 1C #### [facility] [address] [place] [address] Dr. Alexsander Dickinson MCV (RBC) [Entitic vol] 81.0 fL Normal 81.0-99.0 [facility] Comment on above: Performed By: #### A 1C #### [facility] [address] [place] [address] Dr. Alexsander Dickinson MONO # 0.5 103/ul Normal 0.3-0.8 [facility] Comment on above: Performed By: #### A 1C #### [facility] [address] [place] [address] Dr. Alexsander Dickinson Monocytes/100 WBC (Bld) 6.0 % Normal 1.7-12.0 [facility] Comment on above: Performed By: #### A 1C #### [facility] [address] [place] [address] Dr. Alexsander Dickisnon NEUT # 5.9 103/ul Normal 1.4-6.5 [facility] Comment on above: Performed By: #### A 1C #### [facility] [address] [place] [address] Dr. Alexsander Dickinson Neutrophils/100 WBC (Bld) 69.0 % Normal 43.0-75.0 [facility] Comment on above: Performed By: #### A 1C #### [facility] [address] [place] [address] Dr. Alexsander Dickinson Platelet mean volume (Bld) [Entitic vol] 10.5 fL Normal 9.5-13.5 [facility] Comment on above: Performed By: #### A 1C #### [facility] [address] [place] [address] Dr. Alexsander Dickinson PLT 275 103/ul Normal 150-450 [facility] Comment on above: Performed By: #### A 1C #### [facility] [address] [place] [address] Dr. Alexsander Dickinson RBC 4.22 106/ul Normal 4.20-5.40 [facility] Comment on above: Performed By: #### A 1C #### [facility] [address] [place] [address] Dr. Alexsander Dickinson WBC 8.6 103/ul Normal 4.0-11.0 [facility] Comment on above: Performed By: #### A 1C #### [facility] [address] [place] [address] Dr. Alexsander Dickinson LDHon 02-01-2023 LDH 124 U/L Normal 81-234 [facility] Comment on above: Performed By: #### C MP, LDH, URIC #### [facility] [address] [place] [address] Dr. Alexsander Dickinson POINT OF CARE GLUCOSEon Glucose [Mass/Vol] 98 mg/dL Normal 74-106 [facility] Comment on above: Performed By: #### A 1C #### [facility] [address] [place] [address] Dr. Alexsander Dickinson PROF 14(COMP METB)on 023 Albumin [Mass/Vol] 2.5 g/dL Critically low 3.4-5.0 [facility] Comment on above: Performed By: #### C MP, LDH, URIC #### [facility] [address] [place] [address] Dr. Alexsander Dickinson Albumin/Globulin [Mass ratio] 0.6 {ratio} Normal [facility] Comment on above: Performed By: #### C MP, LDH, URIC #### [facility] [address] [address] [address] Alexsander Dickinson ALP [Catalytic activity/Vol] 138 U/L Critically high 46-116 [facility] Comment on above: Performed By: #### C MP, LDH, URIC #### [facility] [address] [address] [address] Alexsander Dickinson ALT [Catalytic activity/Vol] 15 U/L Normal 14-59 [facility] Comment on above: Performed By: #### C MP, LDH, URIC #### [facility] [address] [place] [address] Dr. Alexsander Dickinson Anion gap [Moles/Vol] 14.5 mmol/L Normal [facility] Comment on above: Performed By: #### C MP, LDH, URIC #### [facility] [address] [place] [address] Dr. Alexsander Dickinson AST [Catalytic activity/Vol] 8 U/L Critically low 15-37 [facility] Comment on above: Performed By: #### C MP, LDH, URIC #### [facility] [address] [place] [address] Dr. Alexsander Dickinson Bilirubin [Mass/Vol] 0.2 mg/dL Normal 0.2-1.0 [facility] Comment on above: Performed By: #### C MP, LDH, URIC #### [facility] [address] [place] [address] Dr. Alexsander Dickinson Calcium [Mass/Vol] 8.6 mg/dL Normal 8.5-10.1 [facility] Comment on above: Performed By: #### C MP, LDH, URIC #### [facility] [address] [place] [address] Dr. Alexsander Dickinson Chloride [Moles/Vol] 103 mmol/L Normal 98-107 [facility] Comment on above: Performed By: #### C MP, LDH, URIC #### [facility] [address] [place] [address] Dr. Alexsander Dickinson CO2 [Moles/Vol] 23.7 mmol/L Normal 21.0-32.0 [facility] Comment on above: Performed By: #### C MP, LDH, URIC #### [facility] [address] [address] [address] Alexsander Dickisnon Creatinine [Mass/Vol] 0.61 mg/dL Normal 0.55-1.02 [facility] Comment on above: Performed By: #### C MP, LDH, URIC #### [facility] [address] [address] [address] Alexsander Dickinson EGFR-AF INDONESIAN >60 Normal >=60 [facility] Comment on above: Performed By: #### C MP, LDH, URIC #### [facility] [address] [address] [address] Alexsander Dickinson EGFR-NON AF INDONESIAN >60 Normal >=60 [facility] Comment on above: Performed By: #### C MP, LDH, URIC #### [facility] [address] [address] [address] Alexsander Dickinson Globulin (S) [Mass/Vol] 4.1 g/dL Normal [facility] Comment on above: Performed By: #### C MP, LDH, URIC #### [facility] [address] [address] [address] Alexsander Dickinson Glucose [Mass/Vol] 123 mg/dL Critically high 74-106 [facility] Comment on above: Performed By: #### C MP, LDH, URIC #### [facility] [address] [address] [address] Alexsander Dickinson Potassium [Moles/Vol] 4.2 mmol/L Normal 3.5-5.1 [facility] Comment on above: Performed By: #### C MP, LDH, URIC #### [facility] [address] [address] [address] Alexsander Dickinson Protein [Mass/Vol] 6.6 g/dL Normal 6.4-8.2 [facility] Comment on above: Performed By: #### C MP, LDH, URIC #### [facility] [address] [address] [address] Alexsander Dickinson Sodium [Moles/Vol] 137 mmol/L Normal 136-145 [facility] Comment on above: Performed By: #### C MP, LDH, URIC #### [facility] [address] [address] [address] Alexsander Dickinson Urea nitrogen [Mass/Vol] 5.0 mg/dL Critically low 7.0-18.0 [facility] Comment on above: Performed By: #### C MP, LDH, URIC #### [facility] [address] [address] [address] Alexsander Dickinson Urea nitrogen/Creatinine [Mass ratio] 8.2 mg/mg Normal [facility] Comment on above: Performed By: #### C MP, LDH, URIC #### [facility] [address] [place] [address] Dr. Alexsander Dickinson PROTIMEon 02-01-2023 INR Coag (PPP) [Relative time] {INR} Normal [facility] Comment on above: Performed By: #### H BSANS #### [facility] [address] [place] [address] Dr. Alexsander Dickinson INR GUIDELINES SEE BELOW Normal [facility] Comment on above: Result Comment: CAROLEE RED INR: 2.0 - 3.0 CONDITIONS NOT LISTED BELOW 2.5 - 3.5 FOR PROSTHETIC HEART VALVE REPLACEMENT 2.5 - 3.5 RECURRENT THROMBOSIS Performed By: #### H BSANS #### [facility] [address] [place] [address] Dr. Alexsander Dickinson PT Coag (PPP) [Time] 9.2 s Normal 9.0-11.6 [facility] Comment on above: Performed By: #### H BSANS #### [facility] [address] [place] [address] Dr. Alexsander Dickinson PTTon 02-01-2023 aPTT Coag (Bld) [Time] 25.9 s Normal 22.3-36.2 [facility] Comment on above: Performed By: #### H BSANS #### [facility] [address] [address] [address] Alexsander Dickinson TYPE AND SCREENon 02-01-2023 TYPE AND SCREEN Negative Normal [facility] Comment on above: Performed By: #### A FPMAT #### [facility] [address] [address] [address] Alexsander Dickinson URIC ACID SERUMon 02-01-2023 Urate [Mass/Vol] 5.5 mg/dL Normal 2.6-6.0 [facility] Comment on above: Performed By: #### C MP, LDH, URIC #### [facility] [address] [address] [address] Alexsander Dickinson US PREG BIOPHY W [...] by: DEE GALLEGOS Date: 2023-02-01 15:04 Normal [facility] US PREG BIOPHY W NON STRESSo [...] by: SEBASTIAN HENRY Date: 2023-01-25 15:18 Normal [facility] US PREG BIOPHY W NON STRESSo [...] by: DEE GALLEGOS Date: 2023-01-19 06:16 Normal [facility] US PREG BIOPHY W NON STRESSo [...] by: DEE GALLEGOS Date: 2023-01-11 15:38 Normal [facility] US PREG GROWTHon 01-11-2023 US PREG [...] by: DEE GALLEGOS Date: 2023-01-11 16:42 Normal [facility] GTT 3 HR PREGon 12-01-2022 Glucose [Mass/Vol] 104 mg/dL Normal 74-106 [facility] Comment on above: Performed By: #### A 1C #### [facility] [address] [address] [address] Alexsander Dickinson Glucose [Mass/Vol] 182 mg/dL Normal [facility] Comment on above: Performed By: #### A 1C #### [facility] [address] [address] [address] Alexsander Dickinson Glucose [Mass/Vol] 114 mg/dL Normal [facility] Comment on above: Performed By: #### A 1C #### [facility] [address] [address] [address] Alexsander Dickinson Glucose [Mass/Vol] 73 mg/dL Normal [facility] Comment on above: Performed By: #### A 1C #### [facility] [address] [address] [address] Alexsander Dickinson PAP ACOG PANEL 2: 21 to 29on 11-18-2022 . . Normal [facility] Comment on above: Performed By: #### A 1C #### [facility] [address] [address] [address] Alexsander Dickinson Age Gdln ACOG Testing [facility] Comment on above: Performed By: #### A 1C #### [facility] [address] [address] [address] Alexsander Dickinson DIAGNOSIS: Comment Normal [facility] Comment on above: Result Comment: NEGA TIVE FOR INTRAEPITHELIAL LESION OR MALIGNANCY. Performed By: #### A 1C #### [facility] [address] [address] [address] Alexsander Dickinson Methodology: Comment [facility] Comment on above: Result Comment: This liquid based ThinPrep(R) pap test was screened with the use of an image guided system. Performed By: #### A 1C #### [facility] [address] [place] [address] Dr. Alexsander Dickinson Note: Comment [facility] Comment on above: Result Comment: The Pap smear is a screening test designed to aid in the detection of premalignant and malignant conditions of the uterine cervix. It is not a diagnostic procedure and should not be used as the sole means of detecting cervical cancer. Both false-positive and false-negative reports do occur. . Performed By: #### A 1C #### [facility] [address] [place] [address] Dr. Alexsander Dickinson Performed by: Comment Normal [facility] Comment on above: Result Comment: Cici Clarke, Cushion Padder (ASCP) Performed By: #### A 1C #### [facility] [address] [place] [address] Dr. Alexsander Dickinson Reflex Criteria: Comment Normal [facility] Comment on above: Result Comment: The HPV DNA reflex criteria were not met with this specimen result therefore, no HPV testing was performed. . Performed By: #### A 1C #### [facility] [address] [place] [address] Dr. Alexsander Dickinson Specimen adequacy: Comment Normal [facility] Comment on above: Result Comment: Sati sfactory for evaluation. No endocervical component is identified. Performed By: #### A 1C #### [facility] [address] [place] [address] Dr. Alexsander Dickinson CHLAMYDIA/GONOCOCCUS ZUNILDA (SW AB/URINE/PAPon 11-17-2022 Chlamydia trachomatis, ZUNILDA Negative Normal Negative [facility] Comment on above: Performed By: #### A 1C #### [facility] [address] [place] [address] Dr. Alexsander Dickinson Neisseria gonorrhoeae, ZUNILDA Negative Normal Negative [facility] Comment on above: Performed By: #### A 1C #### [facility] [address] [place] [address] Dr. Alexsander Dickinson VAGINITIS/VAGINOSIS DNA PROB Jose De Jesus 11-16-2022 Reema species Negative Normal Negative [facility] Comment on above: Performed By: #### V AGINT #### [facility] [address] [place] [address] Dr. Alexsander Dickinson Gardnerella vaginalis Negative Normal Negative [facility] Comment on above: Performed By: #### V AGINT #### [facility] [address] [address] [address] Alexsander Dickinson Trichomonas vaginalis Negative Normal Negative [facility] Comment on above: Performed By: #### V AGINT #### [facility] [address] [address] [address] Alexsander Dickinson US PREG INCOMPLETE ANATOMYon 11-14-2022 US PREG INCOMPLETE ANATOMY EXAMINATION: US PREG INCOMPLETE ANATOMY HISTORY: screening COMPARISON: No relevant comparison available. FINDINGS: Heart rate: 150 bpm position: Variable Anatomy: 4.8 x 5.8 mm choroid plexus cyst is again identified IMPRESSION: Stable choroid plexus cyst Electronically authenticated by: SEBASTIAN HENRY Date: 2022-11-14 16:19 Normal [facility] FREE T4on 10-19-2022 Free T4 [Mass/Vol] 0.89 ng/dL Normal 0.76-1.46 [facility] Comment on above: Performed By: #### H BSANS #### [facility] [address] [place] [address] Dr. Alexsander Dickinson TSHon 10-19-2022 TSH 1.303 uIU/mL Normal 0.358-3.740 [facility] Comment on above: Performed By: #### H BSANS #### [facility] [address] [place] [address] Dr. Alexsander Dickinson US PREG ANATOMY SINGLEon [...] DEE GALLEGOS Date: 2022-10-17 20:42 Normal [facility] AFP MATERNAL FOR SPINA BIFID Aon 10-11-2022 AFP MoM 1.49 Normal [facility] Comment on above: Performed By: #### A FPMAT #### [facility] [address] [address] [address] Alexsander Dickinson AFP Value 60.8 ng/mL Normal [facility] Comment on above: Performed By: #### A FPMAT #### [facility] [address] [address] [address] Alexsander Dickinson AFP, Serum for Spina Bifida Report Normal [facility] Comment on above: Performed By: #### A FPMAT #### [facility] [address] [address] [address] Alexsander Dickinson Comment Comment Normal [facility] Comment on above: Result Comment: Niurka Patricia, Ph.D., [facility] Director . References: Available Upon Request. . Multiples Of Median Cutoffs For AFP Elevations Fonseca 2.5 Black 2.8 IDD 2.0 Twins 4.5 Abbreviation Definitions IDD - Insulin Dep Diabetes OSBR - Open Spina Bifida Risk . For further inquiries contact [employer] at [phone]. . This test was developed and its performance characteristics determined by [employer]. It has not been cleared or approved by the Food and Drug Administration. Performed By: #### A FPMAT #### [facility] [address] [address] [address] Alexsander Tiwari Age Collection Date 19.4 weeks Normal [facility] Comment on above: Performed By: #### A FPMAT #### [facility] [address] [place] [address] Dr. Alexsander Dickinson Gestat, Age Based on NILE Normal [facility] Comment on above: Result Comment: 02/2023 Recalculations are not recommended when gestational dating by LMP and ultrasound are within 10 days. Performed By: #### A FPMAT #### [facility] [address] [place] [address] Dr. Alexsander Dickinson Insulin Dep Diabetes No Normal [facility] Comment on above: Performed By: #### A FPMAT #### [facility] [address] [place] [address] Dr. Alexsander Dickinson Interpretation Comment Normal [facility] Comment on above: Result Comment: Inte rpretation: [...] Customer Services to discuss available options. The [employer] recommends amniocentesis be offered to women age 35 and older. Performed By: #### A FPMAT #### [facility] [address] [place] [address] Dr. Alexsander Dickinson [age] Normal [facility] Comment on above: Performed By: #### A FPMAT #### [facility] [address] [place] [address] Dr. Alexsander Dickinson Multiple Gestation No Normal [facility] Comment on above: Performed By: #### A FPMAT #### [facility] [address] [place] [address] Dr. Alexsander Dickinson OSBR Risk 1 [place] 2809 Normal [facility] Comment on above: Performed By: #### A FPMAT #### [facility] [address] [address] [address] Alexsander Dickinson PDF . [facility] Comment on above: Performed By: #### A FPMAT #### [facility] [address] [address] [address] Alexsander Dickinson Race [facility] Comment on above: Performed By: #### A FPMAT #### [facility] [address] [address] [address] Alexsander Dickinson Test Results: Negative [facility] Comment on above: Performed By: #### A FPMAT #### [facility] [address] [address] [address] Alexsander Dickinson GTT 3 HR PREGon 09-29-2022 Glucose [Mass/Vol] 99 mg/dL Normal 74-106 [facility] Comment on above: Performed By: #### A FPMAT #### [facility] [address] [address] [address] Alexsander Dickinson Glucose [Mass/Vol] 173 mg/dL Normal [facility] Comment on above: Performed By: #### A FPMAT #### [facility] [address] [address] [address] Alexsander Dickinson Glucose [Mass/Vol] 151 mg/dL Normal [facility] Comment on above: Performed By: #### A FPMAT #### [facility] [address] [address] [address] Alexsander Dickinson Glucose [Mass/Vol] 76 mg/dL Normal [facility] Comment on above: Performed By: #### A FPMAT #### [facility] [address] [address] [address] Alexsander Dickinson GLUCOSE - 1HRon 09-20-2022 Glucose [Mass/Vol] 159 mg/dL Critically high 74-106 [facility] Comment on above: Performed By: #### H BSANS #### [facility] [address] [place] [address] Dr. Alexsander Dickinson HEP B SURFACE ANTIGEN SCREEN on 08-17-2022 HBsAg Screen Negative Normal Negative [facility] Comment on above: Performed By: #### H BSANS #### [facility] [address] [place] [address] Dr. Alexsander Dickinson HEPATITIS C VIRUS AB W/ REFL EX QUANTon 08-17-2022 HCV AB <0.1 Normal 0.0-0.9 [facility] Comment on above: Performed By: #### A 1C #### [facility] [address] [place] [address] Dr. Alexsander Dickinson Interpretation: Comment Normal [facility] Comment on above: Result Comment: Nega tive Not infected with HCV, unless recent infection is suspected or other evidence exists to indicate HCV infection. Performed By: #### A 1C #### [facility] [address] [place] [address] Dr. Alexsander Dickinson HIV 1 AND 2 WITH REFLEXon HIV Screen 4th Generation wRfx Non-Reactive Normal Non Reactive [facility] Comment on above: Result Comment: HIV Negative HIV-1/HIV-2 antibodies and HIV-1 p24 antigen were NOT detected. There is no laboratory evidence of HIV infection. Performed By: #### H IV12 #### [facility] [address] [place] [address] Dr. Alexsander Dickinson RPR QUANTon 08-17-2022 Rapid Plasma Reagin, Quant Non-Reactive Normal NonRea<1:1 [facility] Comment on above: Result Comment: Plea se Note: This test does not meet current guidelines for screening and diagnosis of syphilis. This test is intended for following treatment response in patients being treated for syphilis infection. To screen for syphilis infection, a reflex cascade that includes both RPR and a treponema-specific assay should be utilized, such as Treponema pallidum (Syphilis) Screening [facility] (553446) or Rapid Plasma Reagin (RPR) Test With Reflex to Quantitative RPR and Confirmatory Treponema pallidum Antibodies (143877). Performed By: #### H BSANS #### [facility] [address] [place] [address] Dr. Alexsander Dickinson RUBELLA AB IGGon 08-17-2022 Rubella Antibodies, IgG 11.90 index Normal Immune >0.99 [facility] Comment on above: Result Comment: Non- immune <0.90 Equivocal 0.90 - 0.99 Immune >0.99 Performed By: #### H BSANS #### [facility] [address] [place] [address] Dr. Alexsander Dickinson CBC AUTO DIFFon 08-16-2022 BASO # 0.1 103/ul Normal 0.0-0.1 [facility] Comment on above: Performed By: #### H BSANS #### [facility] [address] [place] [address] Dr. Alexsander Dickinson Basophils/100 WBC (Bld) 0.6 % Normal 0.2-2.0 [facility] Comment on above: Performed By: #### H BSANS #### [facility] [address] [place] [address] Dr. Alexsander Dickinson EO # 0.1 103/ul Normal 0.0-0.7 [facility] Comment on above: Performed By: #### H BSANS #### [facility] [address] [place] [address] Dr. Alexsander Dickinson Eosinophils/100 WBC (Bld) 0.9 % Normal 0.9-7.0 [facility] Comment on above: Performed By: #### H BSANS #### [facility] [address] [place] [address] Dr. Alexsander Dickinson Erythrocyte distribution width (RBC) [Ratio] 12.9 % Normal 11.0-15.0 [facility] Comment on above: Performed By: #### H BSANS #### [facility] [address] [place] [address] Dr. Alexsander Dickinson Hematocrit (Bld) [Volume fraction] 39.0 % Normal 36.0-48.0 [facility] Comment on above: Performed By: #### H BSANS #### [facility] [address] [place] [address] Dr. Alexsander Dickinson Hemoglobin (Bld) [Mass/Vol] 12.9 g/dL Normal 12.0-16.0 [facility] Comment on above: Performed By: #### H BSANS #### [facility] [address] [address] [address] Alexsander Dickinson IG # 0.04 10e3/ul Critically high 0.00-0.03 [facility] Comment on above: Performed By: #### H BSANS #### [facility] [address] [address] [address] Alexsander Dickinson IG % 0.4 % Normal 0.0-0.5 [facility] Comment on above: Performed By: #### H BSANS #### [facility] [address] [place] [address] Dr. Alexsander Dickinson LYMPH # 2.4 103/ul Normal 1.2-3.8 [facility] Comment on above: Performed By: #### H BSANS #### [facility] [address] [place] [address] Dr. Alexsander Dickinson Lymphocytes/100 WBC (Bld) 26.3 % Normal 20.5-60.0 [facility] Comment on above: Performed By: #### H BSANS #### [facility] [address] [place] [address] Dr. Alexsander Dickinson MANUAL DIFF REQ NO Normal [facility] Comment on above: Performed By: #### H BSANS #### [facility] [address] [place] [address] Dr. Alexsander Dickinson MCH (RBC) [Entitic mass] 28.4 pg Normal 26.7-34.0 [facility] Comment on above: Performed By: #### H BSANS #### [facility] [address] [place] [address] Dr. Alexsander Dickinson MCHC (RBC) [Mass/Vol] 33.1 g/dL Normal 29.9-35.2 [facility] Comment on above: Performed By: #### H BSANS #### [facility] [address] [place] [address] Dr. Alexsander Dickinson MCV (RBC) [Entitic vol] 85.7 fL Normal 81.0-99.0 [facility] Comment on above: Performed By: #### H BSANS #### [facility] [address] [place] [address] Dr. Alexsander Dickinson MONO # 0.6 103/ul Normal 0.3-0.8 [facility] Comment on above: Performed By: #### H BSANS #### [facility] [address] [place] [address] Dr. Alexsander Dicknison Monocytes/100 WBC (Bld) 6.8 % Normal 1.7-12.0 [facility] Comment on above: Performed By: #### H BSANS #### [facility] [address] [place] [address] Dr. Alexsander Dickinson NEUT # 5.8 103/ul Normal 1.4-6.5 [facility] Comment on above: Performed By: #### H BSANS #### [facility] [address] [place] [address] Dr. Alexsander Dickinson Neutrophils/100 WBC (Bld) 65.0 % Normal 43.0-75.0 [facility] Comment on above: Performed By: #### H BSANS #### [facility] [address] [place] [address] Dr. Alexsander Dickinson Platelet mean volume (Bld) [Entitic vol] 9.9 fL Normal 9.5-13.5 [facility] Comment on above: Performed By: #### H BSANS #### [facility] [address] [place] [address] Dr. Alexsander Dickinson PLT 275 103/ul Normal 150-450 [facility] Comment on above: Performed By: #### H BSANS #### [facility] [address] [place] [address] Dr. Alexsander Dickinson RBC 4.55 106/ul Normal 4.20-5.40 [facility] Comment on above: Performed By: #### H BSANS #### [facility] [address] [place] [address] Dr. Alexsander Dickinson WBC 8.9 103/ul Normal 4.0-11.0 [facility] Comment on above: Performed By: #### H BSANS #### [facility] [address] [address] [address] Alexsander Dickinson CULTURE URINEon 08-16-2022 CULTURE URINE Culture Observations: MODERATE GROWTH OF MIXED GENITAL JOHN. NO POTENTIAL PATHOGENS SEEN. Normal [facility] Comment on above: Performed By: #### A FPMAT #### [facility] [address] [place] [address] Dr. Alexsander Dickinson GLYCOHEMOGLOBIN A1Con 2021 ADA RECOMMENDATION SEE BELOW Normal [facility] Comment on above: Result Comment: ADA RECOMMENDED LIMIT 4.0 - 6.0 ADA THERAPEUTIC TARGET < 7.0 ACTION SUGGESTED > 7.0 Performed By: #### A 1C #### [facility] [address] [place] [address] Dr. Alexsander Dickinson Glucose [Mass/Vol] 111 mg/dL Normal [facility] Comment on above: Performed By: #### A 1C #### [facility] [address] [place] [address] Dr. Alexsander Dickinson HbA1c (Bld) [Mass fraction] 5.5 % Normal 4.5-6.2 [facility] Comment on above: Performed By: #### A 1C #### [facility] [address] [place] [address] Dr. Alexsander Dickinson LATRELL BOX TEST PT SEND OUTo n 08-16-2022 SENT TO REF LAB 08/16/2022 Normal [facility] Comment on above: Performed By: #### N BOX #### [facility] [address] [place] [address] Dr. Alexsander Dickinson TYPE AND SCREENon 08-16-2022 TYPE AND SCREEN Negative Normal [facility] Comment on above: Performed By: #### A FPMAT #### [facility] [address] [place] [address] Dr. Alexsander Dickinson US PREG TVon 07-21-2022 [...] DEE GALLEGOS Date: 2022-07-20 22:25 Normal [facility] US PREG TVon 07-13-2022 US PREG TV EXAMINATION: US PREG TV HISTORY: Missed period COMPARISON: 03/09/2022 FINDINGS: Fonseca intrauterine gestation Gestational sac: 1.7 cm, 6 weeks 2 days Yolk sac: 1.7 mm [place]-rump length: 5.8 mm, 6 weeks 3 days Heart rate: 125 bpm Uterus is normal in appearance, anteverted, retroflexed The ovaries are normal in appearance. Cervix: Closed, 3.9 cm small amount of fluid in the endocervical canal IMPRESSION: Viable fonseca intrauterine gestation measuring 6 weeks 3 days Electronically authenticated by: SEBASTIAN HENRY Date: 2022-07-13 17:05 Normal [facility] Coding Summaryon 03-17-2022 Coding Summary [employer] 64 WzangbwiEKz8nAr+PGhl YWQ+IH4WOQXvB58xkGVt fB8BT5aVKF6QRRHMRTEK LA8EFQ5stWO7UVpxK1Yo biAv VuipiJNeSZ52LDq7HPC3 tAukCNdemY4hgQXsS6q9 UbXnZN00uQ60KKwwHSJm AcL6PyNmbqqhuLQm N8npStAflTInEhx+PHRh YmxlIHdpZHRoPScxMDAl RaRpwGgsAX4rVn6cZXUl LWNvbGxhcHNlOiBj l2oiDQYvTOhmAK0akBrv Y9ZwdWE4LWHcd9b1Vx56 dHI+UPGaYAJ9iTouJWfe s940TtDbc8xeGIS8 lPIuDKfsFZT8F48bk7F2 MKYxQMFwBLC4wFO1hA2e hUindwrpO9EjdXNpYbP3 JUD4hWGylV5asAtd mtnqlG2mCia+V19EJU8U JTLLEP8VSmu7F7NzHmuu dHI+AE00VQAlQM74iBQi kSLee8ozoEy1QpWe JTDqERB3jBwdSLhan4Pb DYYaL45olMNyt1C6RVYh lUpvjOJnGmSpiJS5gS5z AShrmgknf3jqnptk Unudp6csga61yQ72V10k HRrvNOChIEB0EZNqPKHk mOffhb4vmL5hMh2+IDxj a8quz2zcdYg4QvIu ZMDhrjEdrOtzBER5u7Gd Yq94W6ChrIhza6HwUrs7 yh60oEGyh9A3aAO2NJyt KWZnnD4wRDusZzY7 VROdVjKtnE25uCFzBVpu Cp8dyJhceBzyNS3lBUFu nrysJKNkhK1jHTStaLLy qHnoIL9eBKTppypi l734JyAuNXT6EFXmoVPm U5SbpH7uQjJpYHSoMUPd L5WoeNWzUVblV776XKeu VbG6QANftqAuO4Zi THYvcYzrQuJ3o1N3Ok2U i9IglwkqVEN1PJleNBA7 BiTfKoKuGdD4H1AvZuq3 ECJbkHvqJS5sV2Ci IFEraevedkvrmXT0AVZg NPCuiR53hOWpBToqLj2d z3U6y122LQWvJHNntT19 Uk3cuVdtVJAryNSQ bY0xtvcob3rseovsQrMw DOVzJYs2HNc5LQVisMup JjNqKTP2HwD0QJH8vUEh zE0beZhtrdnojW8r Oyc+L23etJ9dIYG0DQW9 onayMVEivrRwFO68GB40 Y0UzDbsxtIMewVP+PGRp oyNulEfqGO5aNzCr y4itv4LtIDwzJ6YlGPZk WLvyRqr7IIZcSPC6qAR4 jI3lUURcARcmy6U0kYQ6 A2LtkjFqui0pc1yh YGJiUOhkM94xgESlu4L5 QYIniFI7SPVrkJhfRuFo tI64Jbd+PVKaiZvbr9Ci Cbeih7ioj4uiaSj1 IjMwJSIgdmFsaWduPSJ0 x3PoUv31J42oLIklTUTa TEVyONZsWJLboOddsy2d yH6sIe5+PGNvbCB3 vFG6jS2wAELwNrK0TIgg J399WwIfbMUqGuvqg4mb a0nzyYs8AjOuOMVxzkLe iPndAIL3d5HjQg07 O18dEItiJUJuTYAdOBDb EUCutFnbhd3brG9nTj1+ GP3kg9pnyt85nB16hAI+ BZSbGPV8xZhdAWrl TYEeqF3jVFsfHvR6BIVp XsMxmC40qWOuGNgePs2q vYqpjYidUQ0aCVEuaham m850IbWpf6buZUKd eBLyOFvzNMO2T70uq3C4 RGOxRSTgIIX5hIO8hI3l bGlnbjogbGVmdDsgdmVy rBjxIKqePPxbG938 IHRvcDsnPlBhdGllbnQg KsBrSRu2R7JgMyt1JYXo yPcbYJ7ylHCoYGbpWu2t aSnpmCguAT4kTHAp wqoce624PtBre9uyMAVp wXJyZNhjCLC3Y97ze4S9 FBIrBHBnJCP6tZH8yC1k bGlnbjogbGVmdDsg peRpwKdiFAujTNmrU940 IHRvcDsnPkJpcnRoIERh xYK2LF95FJ32eEVvt1K5 iCZ2L0KzBRVyweaw zjtcnOS0XFYbSNDvzO18 Hm7guTrbLd6kHEQbOPQ4 ZTCizAFtZ5GvaL3vObWu HMDoMGJvE9QofZSf BDdwK198ZXigSiN6NWHq bwDxD4VwPGFdtCuoVfJ8 o0Z2Ia3NR9Z5FI43ZU79 wRWah1J1yAZ7O2Ip WFUemvlrtqfrrYJ8ISDw PISsqX08Wr5roVrfCm7l DVSePXZ2EVMtfMJyG7Yu vJ0nXzIeWYVvRTLi V3HohYYlVOifQ166MAfb KbJ5UFPoqoXqS7CaALPy pTdyEmE2j4M5Ah0KLLs0 UF48WF08tWAvq0D8 aDQ1Q3AlWSFpbrrudqdq lED1UXBrZMHpiP16Xc6l xHczMj3oDDFpSCP8HGCf eYGdB3QooV6fWaCl YRImFPQxK9VclXHlMBpn W047XZkaKdX7VKGcjpWr G0XnIEIloHpfVyO7z6D4 Wz3WKJWuPP28EIY9 cKD8NL31HH26B2RrJnop dGFibGU+PHRhYmxlIHdp ZHRoPScxMDAlJyBzdHls QJ9bPo3oMEOgOIXd rFznuPWzZqOys4fwSTCl OJtsFE4wtHqtP0UhmQS0 BEOsa6w3Do13A91kF0Zq dXA+ZMXdiTI4gWJ2 yW9jNcYrPaB5SQfpM283 DqSgdNLhChrbc9bxf0xn iHc4JmJ0ZOBficNdvNed WZK3r2XyMg31S27t IHdpZHRoPSIxNSUiIHZh bLecsx2vxJ9tFe8+PGNv fFC4iJP2pM1zVwQsIpO1 QWaeK072CjMkbZOn Xuoii8its7sbyRz3XpNh LYXnlpVwdOtzLHG3m5Nv Vk31Y1RosRjlj9UeWvd4 so73iJIvv4N6pXZ0 T0ByHZZmcnoqqVPmeKxw PC6vYDYxqhtbPATapQ6z BSCoP8p8XdDmYuV6PLpu X6ZkmsN4SBVoeAUh MLynUWM9W83pf5Z0NQCg QJSrWVO9sHM4sF7erFkw bjogbGVmdDsgdmVydGlj JLgtZVzfH417OJDk aMjxZVYxjU1aALUtzTLp iQoeYE3hXVJrzmzoQmGS TExJTlMsIEFMWVNTQSBS WCSMIIo4X4LsAyy1 GITiqOfuFD5xrIUmZFme Iv9pwTrcsRdyOO2gJKOf pwjgAJBhlP2uUKMtlHJc zWonAF5oYSGzkwfy e495GwYuIEH3PAFcbGGq D5HvkR4iEfAlPQJdQTBj O2TgiXPzADmmK282ZTjv NyD5ZWVgktAlN1Dk BWAwdXsaQzU0v3U3Cu5q DI1bPs9nSDg6NN40NL18 xUXyk9R9jLL5R0KfSEUk dflebwrmgIB2SZAb BALizH59jQUhDDpxYm2q c6J2a263TSHkHNJvpG91 Va2eoMylOCXdrJVAcU5r qerng0acakppGeEx GSRqGRv9ZIu3UNIceSle OuSvBQA5GyV6KUX9rCXl jW6ibYemmqobcV4gRdt+ XypsSSQvkqM6Z0Qf Mno8CEYguEzyRW9piFRq QUrpFp1nqIhlzCnyZQ1w ZAOsbkaoIVWgrS9xAJPk cNHdcZguGR4sBUAo adkad255ZrDuLKL7FEFo gHSdO6AzhP2uEtSgXBWq UYFwH4JsuXAjXSliB500 JCwyElO3EKCgscTy X5UhPYRddKjtYqE9r6A4 Lg6BCR9VEKB6Y4HoFjp0 LWZlbKfqPZ9rpTWbVCwr Og3cgRtryMxaGW0z VFGpwxlfSLVmvV1aGBDa wOZmsBfmAW3dFERuxpop i103CgJiNXU0UPGyjVLf X3SxlT9vLxTgMPWk YDXaX9EdoGBwAAioQ484 LEqnAlD7VOTnylRvT4Az MDXdoQrfYxE7e8Z7Al7S yKKoF6KxM2r1O3Ev PjwvdHI+YO34QYGsWY13 rEZeiBWca4chbDw1IzPs XCFyZMD8cRcyBXyir7Xj YDUyE08gsXJat3Q2 IGNvbGxhcHNlOyBlbXB0 jV1pAXmnwhkvl9adawdm Ktwvp1nazk22jS82E10a IHdpZHRoPSIzMCUi DVDhmNcxbz9gcP5bRd2+ IYJhnXK2mJR3lD7wLdNk JoZ8AGcdW883YnOdkQVt Lbutj4ovx8rgdSw6 IjIwJSIgdmFsaWduPSJ0 y1PtRh77K42gSQckBBXo GTKpJKRvMBQfsJlvua9e zO2lAy6+QW1sl7hb bx21mR95vZT+PHRkIHN0 kJsnRGbhTRLenP8oAUzp LqI1FEXzWcRvoO50fQPy ZVlsSs0uwPkssTbv BS2nNBPcixife159XyFx d5jiFHAxeULjMCozXVW5 H52dm5D4TJFcBEWwSNR7 kCO6aV8klFlewxnk bGVmdDsgdmVydGljYWwt EXqcE672KNTjyWpcCoPi xVTqB8lrajVIPL0xPqfi dGQ+YVIfCKI3fWdq KEgoDRYyeW3vBRCrK9y4 HgBnVhC8TBgxA0LuezB9 FCYitKSkYAAmuQSScV1k aiaab8hvvoygCtVx BKVeJLb2ALc2ZBDopVoy KxYdZQZ8FaN0EXG8jWOo pH2abNnhdfhicD5nRlm+ RklOOjwvdGQ+PHRk HIA1vIrbROvaPKVgdE7m CUDgW1u7BuObWtH2UJdi P2FrsiJ8JOVihHUuUGUj pCYBsC1gpzjjr5an yjclWbSzQTVjAMt3SHg2 PFPswQkjDdVuREQ0ArV7 XLK8uAZvxJ7pjRjijcnu tV4dLdg+TVJOOjwv dGQ+CJNqGBH8eYizPAkr LEKpjK8mSFWaZ1b8QzIp NhX0DJaxD6EwsgD2PHLo yAOhRQUqbXMGiU9g ddigj7xhiaqbCgVtFHUz CGc0GSw3YEAjeKrtWsDv QKZ0AeD2HFO9cWEvsB2g gTystavxsZ2iClg+ IPL7EYV6UW38JT46Q3Dc PjwvdGFibGU+PHRhYmxl IHdpZHRoPScxMDAlJyBz mDqqXP4zPw9sDXQs LWN (more content not included)... [facility] Coding Summary HTMLBase 64 BhsibkfbOQg6iJy+PGhl YWQ+AJ8FSEUfN34sgEBj aL2PN3iHGS0DXVZVNHDV FK0JWP2jjNU5DIchV8Wx biAv YurvuAFdLW49SFv8IOS5 aSovRKhazS7zkMZxH9v8 KjUzQR73aS62NQvlLAHn YsI4VcYnhydgmSOx Y1rkZtMxuWHiKyl+PHRh YmxlIHdpZHRoPScxMDAl FnAkbUsiLV0bPd1uWURn LWNvbGxhcHNlOiBj q6tqDYBvBVtxTA0agLjh U8YpyPA3ALTdg2f7Ja26 dHI+ODStOYJ0gQedHZsp s410SoFsm5nqSQM2 jAEbLIasCDC2H91uk5P3 TWSnPXEnKMD6wTQ1zM5o eRvqkadgV3JleKKkXkZ9 HMW8iZQvvF6frZec ongwhA6qRdv+D07AZQ9I CVYOYA6RYgq7Y9DwXzdg dHI+KQ41IMBnHS72fTFu lNAka2nmlPh5BdGj NPSiUWI5jEisHOvgy6Nw DXHtC42nrBXgn9P9ZKQl rLdtfTPqWiCpfZP7uY9k VOzspqieo3kwspoz Yblua3guni00iX52J57t XUxyGWNhVLF0IGJiGEFq qGjypm2hmH0uWv5+IDxj z7dbf9xjhRy1LnNw HJAtpvOeoJmoDZT8a2Jq Pg58Y0AyjIfwa0BoCpf2 ab73bBSrz8Y2vDK1ZVqd UFPmwI8yVJwfDoC5 DBGtScCkmY44lNJpBCyc Mo7fiPkamZowJF0qBAAa wxypGUWfkU1qLWXyvXXq kRggAI4aJALlqgjk c757AhMpBUZ1VNKfdGNg L3JosK7aVnItYCOfYNLh H2XppAFpIUdtV436IMyf BmL3OQKhmvVyZ6Mf XCArjOfwEkR2x1A6Nv6S c6AblwriKZY6MElrGLR0 ZbSoJsKsOxB3W2KlTbm8 EQWgcSgiHN8pU5Xp XZQrihcsujcsfSQ5JGBm SWKieK48dGCyAXaeSk0m v7Q1v955LLOiUWPgnJ31 Yz1qjVxnPFRerJQW jR1mavcah2lvwsgrKjUf KWBkWPy9USg2JMKiuEds FwYkBUJ0QqS7VSK8dNZj oY6pxVgvtlnfxD9r Oyc+J41atD1rXJP6DZW8 lvbcOVEoztOeJH00DT38 I6ThIlyreWZqsKY+PGRp jrKusYkuIH0bIpDw l1sev5RjIIyuV9VqFYOr VPitOji7CUAuSBE4aQS1 eZ1nPBLkDXsrr2Z2mGL9 N9FxgfRbog9zu3ht BYCtEHvbS17vfCPen3F3 RFSeuCC1IINyrJxmBlVt rR50Gtb+UHHmzOytf6Nu Nnnpm7qzi6srlJj4 IjMwJSIgdmFsaWduPSJ0 d1TjYz61P07yODanEWQq IIJxJOPqBCOjfZudzr3f tQ0bFd4+PGNvbCB3 gSI6aA5pEQDpJeK2ESph L023DsWphPLfZbjal2kk w0cqkXk1CaKtWWMbeeYe xTeaGDE2j0SjGy42 H82bZGcuVRFcJOAvRVCz RSTicAcafc8xbP0aHm9+ CE0uz4qlkb37xO12nJR+ VLQfEQK0bWgfQSlu NTLnoU6pLAdmBuY3UCFi LhQweF96uRGuJVgtWa0g xRcfbNihJF3eTUUyhace a576NmXhk7guYSDv wQUbBVkvFHE6I75zg2Z7 OHIiJKKiIQF8cIM5dF6f bGlnbjogbGVmdDsgdmVy dBhtFOueUFycW988 IHRvcDsnPlBhdGllbnQg OtYpALw2P0JsIyu2OWTu vZhvEH4ipDRePMkoLs9n hQtnaRzzYD4qEVFz nvrii132GpIuh5dmKNEn dHHkCKhzWGR2T60qd4X5 ECUpOFXsHRT5bQF5vU7v bGlnbjogbGVmdDsg bcKjmExzKWcfSFyoX875 IHRvcDsnPkJpcnRoIERh qJS9PJ97BZ93oUNqc5K6 hKN6E7UfSVBoznhg optivIX6WGWcRDNydM81 Pa5knOrkBm1nTFUxBPV4 QYOypLZbZ8UxdQ7bKqOz CTLqJFKkX0AxoHOd GLpuR854EJznWeV0OOCh tmXlI6XeOPMrxOhsMlJ9 v6F7Mk6YH7E5YV06IV66 zNFft7D8mKP8B7Qj UGGpkgidvquhuVX3TYCs GPGfkL46Rq2qoSkePt6p AIBgGCF1EYWltLSrC3Yz aQ3cFxBcMFAjCVJx Q9EcnPKzOVitN812URtc IxV4WRTptfZjU1WpIYDb kLraLrQ4h1T3Lb3KZBv2 GW46NV75fWFtz1A8 iNZ5O2GcDUUxipcmddse tJG4IVYkGJCfgM74Pr4b xHrlAy5jKBEmBAZ4UJGx tKToA8ZrtY0eBjBc YHHxZTAqB4OybHIiIMha T292LLrkUeX3EJKxjtCg J1WaDLQvnInnBmI1x0W3 Ev3JKUVtRO70GPC9 hBM6RU86IR08E0XfVxmg dGFibGU+PHRhYmxlIHdp ZHRoPScxMDAlJyBzdHls VI5jAq0oHNQpOSDo gLestZLsTzCxo4ngHUHz BGfaSW5vbUmyM2DsbMU0 VURsl3o4Yp92M27rW8Oz dXA+QKVznTA9jLU5 vQ2bUdBwQtR6UGkuJ744 VzMaaSElFozva9xzw5go iHq2YhT1QRUptrSyuJgx KCV7e1EtWr83Z10e IHdpZHRoPSIxNSUiIHZh zAhynv2vbI3hHh1+PGNv bQG5mOY6sD0pQrQkYnP0 KXzfR001LeCboSBq Uwqeh2cun0lokRz9HeMa VPBqxdNocIqkQMZ7n6Tp Xd01R0JdkQekq7YfBes8 ab63pXDet6B9vTH2 C6IrRCWvveyksYDbuSja IE3tJCNtbwmyVMDuwW8n UVPaM2v3MiThSfS9GOhc W2AmjjW8QTIfhWYm RJshFEP7C79iw2G6PLTo QCOsPGN5sNT6eO0rjUya bjogbGVmdDsgdmVydGlj FQwhFStlR709RXDe vDgeTJIahW3oVICitVEi qLsjDK1dYQYstbraRlZI TExJTlMsIEFMWVNTQSBS XDHCXNd9I2TyCeb1 GRKckHjnJD7mqLFaLMkx Kw4fxLpobOyeLI3oRRSa vpqyMCDhlA4aGRXlpQJd tCfqFY1eUMRrudbt h911CgVnTFM4HOGryPIq R8AgxL7tVzGrVDWaVSMk Y3AvbYIxCQdkX851FEyl NyR7OFIcdgEoY0Dq YXErcCpyFlF5s2H9Pm1y VY4gLo4eVIg1PK71ZX87 fPTxx6G0jJM6H6WgMROf pggdphkbnHO6BTKw EBQimR73zZXsRXxjXq3z v7O5g452PQGxCIKcyH55 Uz7cnAubQWDezWNPuQ8v nkoou0qdqnvnWhBc UBGdRFl6HMd3MTWgoXfw YqRbPNK5EqT3WUI5qFBp hL7cvEdoqvwciO9oYxh+ MlobDKScfpC9J1Iv Qto0HAUibSmoLF2vwSKo GKyvEr7hrJnzcIuoHY0e UJRkpwiwCQQutF8cOSGb gTCvfQxbIV1tTBDp rimfl993DiXxACN0TTXb hLFyY4MeyS9dWxKuNUVq QGStJ4DcjJLtOTmuN924 TOyaTxU8CMWrayPt D8WzDVGsfYvqLfR5c9O6 Bd1RUM4SJLK3T6RoDjk7 ETOfxRarEO3dpAGbEFec Ag5spKiwfDyiAW6d GZVeikzmJUJrjE4wJIVl nOPndGxiND8fGCWgixyp b752OxDrWXM7YFOmeVOc L5XzsY9xOiQmXKPs EADvX0SpfGVbTNhqH431 YQpvDcQ8COQhfpZhR8Rj WQVcbEfbFzF6u5R2Us8I UDwvdGQ+DA09ie96 S3RaImbwFbv8JDAhSOL5 kCN4bH1lWVLkOGjwz2A2 nQH2S0NohzKina6ar3eb ORGjQWbjQ75wcWZl z3P1NSAlaIZ3JFBloIvv MrTktO25Vfr+PGNvbGdy s7AzAahfr6xel6dztIa6 IjMwJSIgdmFsaWdu RHI9m5QjJo25U04qGSob ZHRoPSIzMCUiIHZhbGln pa4seS0kTf0+PGNvbCB3 yKB1sX0yJxQkXnL8 HHthE097BpMhiYBrOncy j4gbn6iagSc9LhHjEKIu ihRthHctHEN1i2GbYv07 H0XubZbdi6HaHjw4 ou04fGIuv1J2cWO5U0Fq QCVasnejqUYakQjoFU7j AQMcxxoiALXsuZ1fYHXk N1d3ZqOxWnV5PCbg D9TmljH0FYLszLJjAZCp rJQZzJ8zmnlcd1sgeyxp LwApKIZbNUd2BBs2TKGy eBnoZlMdQPT2NyV3 FWL8dUQayW4deZhuwcbz yW8sIql+JFm9t7iyhYMg JZ9kuJZ2MS11UJ07aUUx q1S1fGH2G0CeKWGb kctfbzikiBY5SQDcDXBj cP47Qf4wdFoqBl9iSYBg CHU6WXOonSIeZ8EhoH5h MlSaDBMhZKXzW8Id eQYkLWhoZ514BUkyLqE2 FQZmlmLsR3GiWMAwwYun PuC1k1E4Sf1UED47EP38 JM26eRYvz5Z0gTL3 E2SqBMDdgidjqtjavFZ0 FWSeZVPsiO02Qq7ppXce Pc1nXZXpSPJ1SKMnlBHi F5YimD7jAeEkIVTg KQDbN3LspWXlDYayW965 UBkqUbU8JMQwmwWaF1Eu KEUpsSgzXgO7c8A7Zu5M Lh90MO93NF09uFXy w7C7wAI8O4YvIOVjhhkk bbcthRX6FGRjWIIwsX94 Gg6mfTtpPy1nMTGdRDO8 ESVhoSSaX1AiyX8m YsZrJUBmKZNiB3NnkWAq DNlrZ321GPjfObX2TWLj hfLlI9MoYJGqoTnnEyS2 e7B0Hn2GQZbzfbz3 N4BgKdjxtEK+QO44RGRm JP67zBCsgOCwt0opxMg4 MxUkFCMuRAE6hPdwSNdk t7YiZNFmN89jiPWu c2U (more content not included)... Normal [facility] C Urineon 03-11-2022 C Urine Urine Culture ordered as a result of parameters set on specific urine dip and urine microsopic results. >3 Organisms Consistent with Contamination Recollection suggested. Normal [facility] Comment on above: Performed By: #### 1 [id number], 82205880, 4776089, 0066895964, 06772211, 9468721, 9733481324, 6372040096, 5666619739, 6646290 #### [facility] (DEFAULT) [address] [place] [address] .Auto Diff 03-09-2022 Auto Rapides % 8 % Normal 11-09 [facility] Comment on above: Performed By: #### 1 [id number], 25741804, 7459968, 7318087978, 92305906, 8162128, 0290935401, 0771277538, 1036145211, 0930093 #### [facility] (DEFAULT) [address] [place] [address] Baso Abs# 0.0 x10 Normal 0.0-0.2 [facility] Comment on above: Performed By: #### 1 0708435, 28083573, 8518381, 1206950967, 67798691, 0247027, 1774075891, 0801025925, 7967011255, 2618082 #### [facility] (DEFAULT) [address] [place] [address]39 Basophils/100 WBC (Bld) 0.3 % Normal 0.2-2.0 [facility] Comment on above: Performed By: #### 1 0402456, 04444978, 1151634, 2519854426, 85126415, 3470911, 3568821962, 3655583376, 1526766579, 7661361 #### [facility] (DEFAULT) [address] [place] [address] 04144 Eos Abs# 0.1 x10 Normal 0.0-0.4 [facility] Comment on above: Performed By: #### 1 3975930, 34558605, 1865887, 1125497742, 07435878, 9386931, 8081410241, 8025098268, 5971984949, 6751605 #### [facility] (DEFAULT) [address] [place] [address] 40077 Eosinophils/100 WBC (Bld) 1.0 % Normal 0.9-4.0 [facility] Comment on above: Performed By: #### 1 7131711, 17595270, 9743638, 0888667548, 32219593, 7515497, 8842601683, 8528527040, 1149344454, 3561902 #### [facility] (DEFAULT) [address] [place] [address] 84091 Lymph Abs# 2.0 x10 Normal 1.3-2.9 [facility] Comment on above: Performed By: #### 1 8953123, 59229315, 0045612, 9110874756, 82180054, 0302817, 8945952360, 1883891864, 1739572938, 5237917 #### [facility] (DEFAULT) [address] [place] [address] 00731 Lymphocytes/100 WBC (Bld) 35 % Normal 14-48 [facility] Comment on above: Performed By: #### 1 2204205, 17424687, 9348671, 6338323971, 80755399, 1484200, 4124854116, 7406904025, 4827729309, 2142482 #### [facility] (DEFAULT) [address] [place] [address]855 Rapides Abs# 0.5 x10 Normal 0.0-0.8 [facility] Comment on above: Performed By: #### 1 8593935, 16245331, 9730581, 5433246847, 97831749, 7317372, 0604361456, 2943449312, 5806855037, 5013412 #### [facility] (DEFAULT) [address] [place] [address] 72504 Neut Abs# 3.2 x10 Normal 1.5-9.2 [facility] Comment on above: Performed By: #### 1 5809209, 67290012, 2273613, 8707781122, 55239261, 2975418, 2263934246, 1151988860, 1433401097, 0769726 #### [facility] (DEFAULT) [address] [place] [address] 21197 Neutrophils/100 WBC (Bld) 55 % Normal 44-88 [facility] Comment on above: Performed By: #### 1 6627752, 37502111, 9713710, 1740800151, 24225226, 0589132, 9177903583, 0089507716, 8772700565, 3739092 #### [facility] (DEFAULT) [address] [place] [address]88 ABORhon 03-09-2022 ABO and Rh group Nom (Bld) Hx Check: Not Found Anti-A: 4+ Anti-B: 0 Anti-D: 4+ DCon: 0 A1: mf+ B: 4+ ABORh Interp: A POS Invalid Interpretation Code [facility] Comment on above: Performed By: #### 1 1563138, 02782189, 0802171, 7475493435, 04291602, 4966358, 9975172362, 5944555412, 8128852285, 5188586 #### [facility] (DEFAULT) [address] [place] [address]121 ABORh Retypeon 03-09-2022 ABO and Rh group Nom (Bld) Ordered by Discern. Anti-A: 4+ Anti-B: 0 Anti-D: 4+ DCon: 0 A1: mf+ B: 4+ ABORh Retype: A POS Invalid Interpretation Code [facility] Comment on above: Performed By: #### 1 4516093, 64468562, 9595651, 9822879037, 15801503, 4445953, 7333629618, 5976385097, 5394066390, 0031490 ####[facility] (DEFAULT)[address] [place] [address] 23921 CBC w/ Auto Diffon 2 Erythrocyte distribution width (RBC) [Ratio] 13.3 % Normal 11.5-15.0 [facility] Comment on above: Performed By: #### 1 8177244, 43487016, 0045680, 4013330583, 64302416, 1245287, 7015869015, 2601877528, 5967884979, 7279441 #### [facility] (DEFAULT) [address] [place] [address] Hematocrit (Bld) [Volume fraction] 43.5 % High 33.7-40.4 [facility] Comment on above: Performed By: #### 1 0848851, 17977640, 0596488, 9197783858, 68967535, 0978582, 6359797902, 3599267387, 1852779224, 2556854 #### [facility] (DEFAULT) [address] [place] [address] Hemoglobin (Bld) [Mass/Vol] 14.1 g/dL Normal 11.3-15.9 [facility] Comment on above: Performed By: #### 1 6663619, 70140759, 8920631, 0663344046, 69622375, 9443636, 8390622605, 1502980693, 3957053789, 7836359 #### [facility] (DEFAULT) [address] [place] [address] Instr WBC 5.7 x10 Invalid Interpretation Code [facility] Comment on above: Performed By: #### 1 7115757, 45001550, 2083482, 2515642594, 77112345, 7965671, 4759043429, 3465742360, 3366254381, 7389944 #### [facility] (DEFAULT) [address] [place] [address] Man Diff? Auto Normal [facility] Comment on above: Performed By: #### 1 4657585, 02348560, 5867878, 8547597746, 66115419, 3372392, 1398329842, 2004690984, 3147083904, 8551620 #### [facility] (DEFAULT) [address] [place] [address] MCH (RBC) [Entitic mass] 28 pg Normal 24-34 [facility] Comment on above: Performed By: #### 1 7200680, 74965851, 0908996, 4899516307, 73027133, 9225826, 1844685197, 8119850549, 5633524760, 0977122 #### [facility] (DEFAULT) [address] [place] [address] 45049 MCHC (RBC) [Mass/Vol] 32 g/dL Normal 26-37 [facility] Comment on above: Performed By: #### 1 4150554, 21628945, 3346446, 3821715397, 34635991, 2071180, 4041571799, 3070024087, 3477373131, 3240276 #### [facility] (DEFAULT) [address] [place], [place] [address] MCV (RBC) [Entitic vol] 86 fL Normal 81-100 [facility] Comment on above: Performed By: #### 1 0570094, 93905463, 1673733, 6688180393, 81382316, 1410950, 7942759166, 2821445202, 6960493081, 7236783 #### [facility] (DEFAULT) [address] [place] [address] Platelet 324 x10 Normal 138-427 [facility] Comment on above: Performed By: #### 1 3844929, 99566539, 9624200, 7023550714, 69236075, 5337022, 1574400255, 5631886629, 8461924566, 7893315 #### [facility] (DEFAULT) [address] [place] [address] 02734 Platelet mean volume (Bld) [Entitic vol] 9.8 fL Normal 6.3-10.2 [facility] Comment on above: Performed By: #### 1 9333400, 12938060, 0374333, 1544162345, 64893030, 9965120, 0404714656, 8783593031, 7166795832, 1449214 #### [facility] (DEFAULT) [address] [place] [address] 76468 RBC 5.07 x10 Normal 3.70-5.30 [facility] Comment on above: Performed By: #### 1 1122734, 67708685, 9229653, 0730389176, 52637138, 9274940, 3702263409, 1950671704, 1010759178, 0888915 #### [facility] (DEFAULT) [address] [place] [address] WBC 5.7 x10 Normal 3.5-10.5 [facility] Comment on above: Performed By: #### 1 1655943, 78631568, 2715650, 0074803975, 63553256, 5591054, 5359883176, 8864165932, 4663495951, 2534542 #### [facility] (DEFAULT) [address] [place] [address] Standardon 03-09-2022 Albumin [Mass/Vol] 4.5 g/dL Normal 3.5-5.0 [facility] Comment on above: Performed By: #### 1 0253371, 69500418, 9218586, 3604498870, 65307719, 2785087, 3658130747, 2265044433, 3590008714, 2215046 #### [facility] (DEFAULT) [address] [place] [address] Albumin/Globulin [Mass ratio] 1.2 {ratio} Low 1.4-2.6 [facility] Comment on above: Performed By: #### 1 6883748, 29378937, 2377503, 8732896255, 13128033, 4172344, 2853648928, 9060630190, 2339434834, 2260831 #### [facility] (DEFAULT) [address] [place] [address] 64093 Alk Phos 52 IU/L Normal 32-91 [facility] Comment on above: Performed By: #### 1 9717290, 37214429, 1074879, 3588175419, 11459080, 0462744, 8077096128, 9882946547, 9203494376, 8838646 #### [facility] (DEFAULT) [address] [place] [address] 63499 ALT [Catalytic activity/Vol] 37.0 U/L Normal 14.0-54.0 [facility] Comment on above: Performed By: #### 1 4916972, 68182759, 7518481, 4011429976, 95874808, 3497163, 2205065179, 1312852301, 2845468745, 6385656 #### [facility] (DEFAULT) [address] [place] [address]3438 Anion gap [Moles/Vol] 18.0 mmol/L Normal 5.0-19.0 [facility] Comment on above: Performed By: #### 1 7613266, 31828829, 3230801, 7207940644, 31711967, 9180060, 1277843082, 9207692455, 3440667572, 2277364 #### [facility] (DEFAULT) [address] [place] [address] 06829 AST [Catalytic activity/Vol] 29 U/L Normal 15-41 [facility] Comment on above: Performed By: #### 1 9193888, 40346340, 4827532, 3825411104, 58787031, 7734339, 5195924177, 4734114356, 1984201131, 4550978 #### [facility] (DEFAULT) [address] [place] [address] 17926 Bili Total 0.7 mg/dL Normal 0.3-1.2 [facility] Comment on above: Performed By: #### 1 0171195, 48135016, 8632956, 8297727301, 50096178, 9031227, 0495753427, 9319810182, 2583507062, 1699621 #### [facility] (DEFAULT) [address] [place] [address] 80924 Calcium [Mass/Vol] 9.4 mg/dL Normal 8.9-10.3 [facility] Comment on above: Performed By: #### 1 6367323, 13918082, 9364640, 3004984313, 70469165, 3108614, 6673330188, 1042370987, 5810787252, 8241016 #### [facility] (DEFAULT) [address] [place] [address] 11214 Chloride [Moles/Vol] 100 mmol/L Low 101-111 [facility] Comment on above: Performed By: #### 1 6964217, 78626628, 6395476, 6277552359, 84518444, 3932896, 2420773304, 7148870464, 7668380062, 0000314 #### [facility] (DEFAULT) [address] [place] [address] 04045 CO2 [Moles/Vol] 24 mmol/L Normal 21-32 [facility] Comment on above: Performed By: #### 1 3663311, 60920045, 0811588, 8365266148, 29878286, 1693556, 2203697669, 4280258178, 2666125299, 6678041 #### [facility] (DEFAULT) [address] [place] [address] Creatinine [Mass/Vol] 0.75 mg/dL Normal 0.60-1.30 [facility] Comment on above: Performed By: #### 1 2693365, 66512372, 5923649, 7442111408, 31004464, 3405135, 2829019441, 5503568051, 8791565274, 6275323 #### [facility] (DEFAULT) [address] [place] [address] 58007 eGFR AA >60 Invalid Interpretation Code [facility] Comment on above: Result Comment: Healthcare Economics Manager susie Kidney disease could be indicated at eGFRs of less than 60 ml/min/1.73m2. Kidney Failure is indicated at less than 15 ml/min/1.73m2 Performed By: #### 1 9578626, 74941712, 7056382, 6266714492, 45904019, 6568053, 1537111199, 0091900700, 0868754627, 6734748 #### [facility] (DEFAULT) [address] [place] [address] 80142 eGFR Non AA >60 Invalid Interpretation Code [facility] Comment on above: Performed By: #### 1 9738284, 75515447, 2168219, 4236959570, 45534937, 3325008, 7961932454, 3987536542, 5119610113, 4686848 #### [facility] (DEFAULT) [address] [place] [address] 47718 Globulin (S) [Mass/Vol] 3.9 g/dL Normal 1.5-4.3 [facility] Comment on above: Performed By: #### 1 5366890, 63048267, 3470610, 8769523094, 23753710, 8213484, 1392436727, 5549860808, 9909258650, 9116906 #### [facility] (DEFAULT) [address] [place] [address] 27882 Glucose [Mass/Vol] 98.0 mg/dL Normal 74.0-118.0 [facility] Comment on above: Performed By: #### 1 2573654, 98809995, 4232193, 6539834042, 29352561, 1861893, 6715705164, 5945029807, 9786959166, 7990999 #### [facility] (DEFAULT) [address] [place] [address] 14974 Osmolality 274 mOsm/L Invalid Interpretation Code [facility] Comment on above: Performed By: #### 1 3700623, 65957807, 6681730, 4772776783, 91115961, 7612888, 5484297578, 5109406109, 1989453601, 1743915 #### [facility] (DEFAULT) [address] [place] [address] 56299 Potassium [Moles/Vol] 3.5 mmol/L Low 3.6-5.1 [facility] Comment on above: Performed By: #### 1 0988427, 35806610, 5409416, 2787471550, 03876708, 9947053, 5534268088, 0385139993, 4801493107, 6595355 #### [facility] (DEFAULT) [address] [place] [address] 56450 Protein [Mass/Vol] 8.4 g/dL High 6.5-8.1 [facility] Comment on above: Performed By: #### 1 0848744, 28334849, 2038571, 5172180616, 87897635, 4015659, 3316958133, 0388109312, 0070758595, 9906583 #### [facility] (DEFAULT) [address] [place] [address] 35450 Sodium [Moles/Vol] 138.0 mmol/L Normal 136.0-144.0 [facility] Comment on above: Performed By: #### 1 0505264, 04026515, 7407081, 2357726231, 39717538, 7577708, 6203529079, 3685349794, 0270123712, 4808778 #### [facility] (DEFAULT) [address] [place] [address] 45252 Urea nitrogen [Mass/Vol] 7 mg/dL Low 8-26 [facility] Comment on above: Performed By: #### 1 4025793, 56451404, 8394011, 1942222861, 68415547, 4832554, 7961704209, 9790710968, 6239582247, 5448593 #### [facility] (DEFAULT) [address] [place] [address] 47567 Urea nitrogen/Creatinine [Mass ratio] 9.0 mg/mg Normal 4.6-16.2 [facility] Comment on above: Performed By: #### 1 4049553, 32311891, 2439890, 5202751372, 33424648, 5726978, 2510956302, 2953078396, 0626847101, 2178471 #### [facility] (DEFAULT) [address] [place] [address] 56302 ED Clinical Summaryon 2021 ED Clinical Summary [facility] - Emergency Department [address] [place] [address] ED Clinical Summary PERSON INFORMATION Name: DIANE JOYCE Age: 26 Years Sex: FEMALE : 1995 MRN: Acct#: Visit Reason: Vaginal bleeding - < 20 wks ; BLEEDING, Arrival: 03/09/2022 15:56:59 Discharge: 03/09/2022 18:28:00 LOS: 000 02:32 Check In: 03/09/2022 15:56:59 Checkout:03/09/2022 18:28:00 Address: [address] [place] [address] PCP: Provider, None PROVIDER INFORMATION Provider Role [...] or bladder. States that she follows with wetland scientist in [place], contacted his office and they [...] intact, SARINA: -Sclera conjunctiva: Unremarkable. NECK: -Supple ([id number]): non-tender. CARD: -Rate and rhythm: Regular -Edema: [...] the patient recommended close follow-up with her wetland scientist and outpatient beta hCG. In the meantime no strenuous ac (more content not included)... Normal [facility] ED Note - Physicianon 2021 ED Note [...] or bladder. States that she follows with wetland scientist in [place] Min, contacted his office and they [...] intact, SARINA: -Sclera conjunctiva: Unremarkable. NECK: -Supple ([id number]-[id number]): non-tender. CARD: -Rate and rhythm: Regular -Edema: [...] the patient recommended close follow-up with her wetland scientist and outpatient beta hCG. In the meantime no strenuous activity, sexual activity if having any worsening issues I recommended he return to the emergency department or going directly to wetland scientist. Patient indicated she understood was in agreement. [...] AA >60 (more content not included)... Normal [facility] ED Note-Nursingon 03-09-2022 Beta HCG ( test) Ql (U) Patient arrives with c/o vaginal bleeding during . States she took a at home test a week ago and estimates being 5 to 6 weeks along. Patient has some mild cramping yesterday 11/07 at has since went away and light vaginal bleeding today. This is the patients second , 1 live . Normal [facility] ED Patient Summaryon 022 ED Patient Summary [facility] - Emergency Department [address] [place], [place] [id number] PATIENT DISCHARGE INSTRUCTIONS Patient Information Name: DIANE [...] (N93.9) Vaginal bleeding - < 20 wks ([id number]) Prescription Information: If you have been given a prescription for narcotics, seek immediate medical attention if you have any difficulty breathing or any sudden status changes such as confusion and sleepiness. If you or anyone you know is experiencing suicidal thoughts, mental health, alcohol and/or drug addiction problems; contact the [facility] 21/05 Crisis Hotline -Text 4HOPE to [phone]. If you received any narcotics, sedation, or [...] documents With: Address: When: Follow-up with your wetland scientist for reevaluation next few days. Within 1 to 2 days Comments: Follow-up with wetland scientist for reevaluation next few days for reevaluation and outpatient quantitative hCG. Return immediately for any worsening issues such as increasing abdominal pains, increasing vaginal bleeding, fevers, or any other problems. 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 It is important for you to follow up with a doctor, nurse practitioner, or physician?s registered dental assistant for ongoing care. If your symptoms [...] so we can reach you if necessary. [facility] has provided you with a complete list of medications post discharge. Please inform your primary care pediatrician/provider of your visit and for further instruction [...] The sec (more content not included)... Normal [facility] Extra [facility] 03-09-2022 Tube Collected Yes Invalid Interpretation Code [facility] Comment on above: Performed By: #### 1 [id number], 32870277, 5471399, [id number], 41502219, 0786550, 5524257368, 5982404342, 0149798049, 7920089 #### [facility] (DEFAULT) [address] [place] [address] PT/PTTon 03-09-2022 INR Coag (PPP) [Relative time] 0.95 {INR} Normal 0.91-1.11 [facility] Comment on above: Performed By: #### 1 [id number], 83644715, 6189068, 2487477333, 16055078, 3647468, 7116389290, 1019068600, 0646911479, 8583504 #### [facility] (DEFAULT) [address] [place] [address]3833 PT 10.3 second(s) Normal 9.7-11.8 [facility] Comment on above: Performed By: #### 1 8362435, 48699307, 7939300, 7686664238, 40861010, 8666097, 4559535576, 9129063147, 0764446515, 3980305 #### [facility] (DEFAULT) [address] [place] [address]27 PTT 34 second(s) Normal 25-35 [facility] Comment on above: Performed By: #### 1 4763870, 36000075, 4881968, 5937365328, 77468398, 3625435, 7387484386, 8632631470, 4960748230, 2630608 #### [facility] (DEFAULT) [address] [place] [address] RhIG.on 03-09-2022 RhIG. No. Vials RhI RhIG Candidate?: No Date to Give: [id number] RhIG Status: RhIG Ready [facility] Comment on above: Performed By: #### 1 [id number], 82530084, 9862881, 7985581290, 88815935, 8034920, 7409067154, 7618467248, 3661320936, 6121230 ####[facility] (DEFAULT)[address] [place] [address] UA Gqwsp4ry 03-09-2022 UA Amorph. 1+ [facility] Comment on above: Order Comment: Urina lysis Microscopic order added on by [employer] Expert Rules system. Performed By: #### 5 7637297, 0571562, [id number] ####[facility] (DEFAULT)[address] [place] [address] UA Bacteria 2+ [facility] Comment on above: Order Comment: Urina lysis Microscopic order added on by [employer] Expert Rules system. Performed By: #### 5 [id number], 6308524, [id number] ####[facility] (DEFAULT)[address] [place] [address] UA Mucous 3+ [facility] Comment on above: Order Comment: Urina lysis Microscopic order added on by [employer] Expert Rules system. Performed By: #### 5 9857249, 9318964, [id number] ####[facility] (DEFAULT)[address] [place] [address] UA RBC >100 [facility] Comment on above: Order Comment: Urina lysis Microscopic order added on by Discern Expert Rules system. Performed By: #### 5 4911368, 6644538, [id number] ####[facility] (DEFAULT)[address] [place] [address] UA Squam Epi Many [facility] Comment on above: Order Comment: Urina lysis Microscopic order added on by Discern Expert Rules system. Result Comment: DMITRY VERGARA RN IN ER. RUN UNINALYSIS AND CULTURE ON THIS SPECIMEN. NO RECOLLECT. Performed By: #### 5 6977324, 8859305, [id number] ####[facility] (DEFAULT)[address] [place] [address] UA WBC 3-5 [facility] Comment on above: Order Comment: Urina lysis Microscopic order added on by Discern Expert Rules system. Performed By: #### 5 3350377, 1671579, [id number] ####[facility] (DEFAULT)[address] [place] [address] UA w Culture if Ind Standard on 03-09-2022 Breakpoint UA [facility] Comment on above: Performed By: #### 1 9544951, 11465039, 6005773, 6366742206, 84418395, 2977325, 5522588552, 2923088489, 3024873097, 1780987 #### [facility] (DEFAULT) [address] [place] [address] Color (U) Yellow [facility] Comment on above: Performed By: #### 1 3659612, 30554766, 9205416, 4184391102, 69240317, 7741912, 6167188532, 5165557987, 2858603157, 3971881 #### [facility] (DEFAULT) [address] [place] [address] Culture? Indicated Invalid Interpretation Code [facility] Comment on above: Result Comment: Resu lt created by rule GL_MAGR_ADD_UA_CULT Result created by rule GL_MAGR_ADD_UA_CULT Result created by rule GL_MAGR_ADD_UA_CULT1 Result created by rule GL_MAGR_ADD_UA_CULT Performed By: #### 1 0926412, 79473211, 6608734, 2618220797, 63610677, 3714648, 6464373102, 7165594700, 9965728095, 7784318 #### [facility] (DEFAULT) [address] [place] [address] Glucose (U) [Mass/Vol] Negative [facility] Comment on above: Performed By: #### 1 1798664, 27237074, 2689848, 3808633995, 23092424, 2179893, 7017550601, 9140362472, 6499895155, 4478385 #### [facility] (DEFAULT) [address] [place] [address] Ketones Ql (U) 40 Normal [facility] Comment on above: Performed By: #### 1 6429797, 72480690, 7618563, 9270902774, 25588692, 7864461, 3796790804, 3842508281, 2680491434, 7116456 #### [facility] (DEFAULT) [address] [place] [address] Micro? Indicated Invalid Interpretation Code [facility] Comment on above: Result Comment: Resu lt created by rule GL_MAGR_ADD_UA_MICRO Performed By: #### 1 4688292, 77356403, 1678605, 0794677386, 73379183, 5883268, 0735126036, 5934601976, 3829422242, 4995403 #### [facility] (DEFAULT) [address] [place] [address] UA Bilirubin Negative [facility] Comment on above: Performed By: #### 1 7018467, 28943554, 6332874, 4912644789, 56999044, 0926468, 2654951289, 1151445019, 2077621259, 2753186 #### [facility] (DEFAULT) [address] [place] [address] UA Blood LARGE Abnormal NEGATIVE [facility] Comment on above: Performed By: #### 1 5231477, 04466238, 1550505, 5298001700, 24303968, 8917957, 2164647868, 1529245805, 2648388498, 2244079 #### [facility] (DEFAULT) [address] [place] [address] UA Clarity SL CLOUDY Abnormal CLEAR [facility] Comment on above: Performed By: #### 1 5206203, 77559631, 6303011, 2797878318, 99541523, 3803686, 5823886976, 5409935791, 8199279331, 1448949 #### [facility] (DEFAULT) [address] [place] [address] 12982 UA Leuk Est TRACE Abnormal NEGATIVE [facility] Comment on above: Performed By: #### 1 9658830, 27800458, 2189778, 7833414338, 93636675, 3315228, 1667158325, 3813079287, 7968045620, 2958976 #### [facility] (DEFAULT) [address] [place] [address] UA Nitrite Negative Normal NEGATIVE [facility] Comment on above: Performed By: #### 1 9782392, 07116375, 9248776, 6725293819, 30906092, 7182856, 8208654041, 9672887620, 4662414483, 5271942 #### [facility] (DEFAULT) [address] [place] [address] UA pH 6.5 Normal 5-8 [facility] Comment on above: Performed By: #### 1 3353294, 63662036, 8395481, 3127199703, 78722043, 8817462, 8699829329, 4803607384, 2887942206, 8505495 #### [facility] (DEFAULT) [address] [place] [address] UA Protein Negative Normal NEGATIVE [facility] Comment on above: Performed By: #### 1 5320487, 60092930, 5607183, 3299492219, 29503213, 0993467, 0481238085, 3752612924, 1909214230, 1232436 #### [facility] (DEFAULT) [address] [place] [address] UA Spec Grav 1.015 Normal 1.001-1.035 [facility] Comment on above: Performed By: #### 1 6823739, 77246428, 1807547, 4808965062, 48802830, 9868026, 7032598859, 0124286558, 1149124510, 1009824 #### [facility] (DEFAULT) [address] [place] [address] UA Urobilinogen 0.2 mg/dL Normal 0.2-1.0 [facility] Comment on above: Performed By: #### 1 2610242, 95112744, 4104745, 8210009243, 32892181, 8542285, 0590364400, 2603071020, 3809546759, 6482127 #### [facility] (DEFAULT) [address] [place] [address]4527 Urine Source Clean Catch Normal [facility] Comment on above: Performed By: #### 1 2455644, 21179252, 9189624, 4252186573, 83649712, 0424037, 4186876040, 4149192593, 8623008788, 5320648 #### [facility] (DEFAULT) [address] [place] [address] US 1st Trimesteron 03-09-2022 US 1st Trimester [...] Signature): Sebastian Guzman 03/09/22 6:10 pm Technologist: [facility] US Transvaginalon 03-09-2022 US Transvaginal EXAM: [...] Signature): Sebastian Guzman 03/09/22 6:10 pm Technologist: [facility] hCG Quantitativeon hCG Quantitative 7.1 mIU/mL High 0.0-0.6 [facility] Comment on above: Result Comment: Post -Menopausal Reference Range is: 0.1-11.6 mIU/mL Performed By: #### 1 7612740, 10895193, 1593162, 2711051693, 72417333, 6053092, 8434854298, 3622518418, 2109550505, 6344067 #### [facility] (DEFAULT) [address] [place] [address] Social History Date Type Detail Facility Start: 12-13-2023 Alcohol intake Lifetime non-d иван (finding) [facility] Start: 10-25-2023 [facility] Start: 03-12-2023 Sex Assigned At N [facility] [employer] Other Start: 03-12-2023 Tobacco smoking status NHIS Never smoked tobacco [facility] Start: 03-12-2023 Tobacco use and exposure Smokeless tobacco non-user [facility] Healthcare Start: 03-12-2023 History of Social function [facility] Healthcare Start: 1995 Sex Assigned At Female F [facility] Start: 1995 Sex Assigned At Not on file N [facility] Unknown if ever smoked [facility] [employer] Other Vital Signs Date Time Vital Sign Value Performing Clinician Facility 12-13-2023 15:00-0500 Body mass index (BMI) [Ratio] 46.69 kg/m2 [facility] Nurse [facility] 12-13-2023 15:00-0500 Body weight 123.38 kg [facility] Nurse [facility] 12-13-2023 15:00-0500 Diastolic blood pressure 78 mm[Hg] Nom Nurse [facility] 12-13-2023 15:00-0500 Systolic blood pressure 128 mm[Hg] [facility] Nurse [facility] 05-15-2023 18:30-0400 Body height 161.29 cm Linsey Witt Other [facility] [employer] Other 05-15-2023 18:30-0400 Body mass index (BMI) [Ratio] 43.41 kg/m2 Linsey Witt Other [facility] [employer] Other 05-15-2023 18:30-0400 Body temperature 99.2 [degF] Linsey Witt Other [facility] [employer] Other 05-15-2023 18:30-0400 Body weight 112.95 kg Linsey Witt Other [facility] Other 05-15-2023 18:30-0400 Respiratory rate 18 /min Linsey Witt Other [facility] [employer] Other 05-15-2023 18:30-0400 SaO2% (BldA) [Mass fraction] 99 % Linsey Witt Other [facility] [employer] Other 05-09-2023 11:00-0400 Body height 161.29 cm Gissel Santana Other [facility] [employer] Other 05-09-2023 11:00-0400 Body mass index (BMI) [Ratio] 43.59 kg/m2 Gissel Santana Other [facility] [employer] Other 05-09-2023 11:00-0400 Body weight 113.4 kg Gissel Santana Other [facility] Other 05-09-2023 11:00-0400 Diastolic blood pressure 83 mm[Hg] Gissel Santana Other [facility] [employer] Other 05-09-2023 11:00-0400 Systolic blood pressure 119 mm[Hg] Gissel Santana Other [facility] [employer] Other 04-12-2023 09:00-0400 Body height 161.29 cm Gissel Santana Other [facility] [employer] Other 04-12-2023 09:00-0400 Body mass index (BMI) [Ratio] 43.59 kg/m2 Gissel Santana Other [facility] [employer] Other 04-12-2023 09:00-0400 Body weight 113.4 kg Gissel Santana Other [facility] [employer] Other 04-12-2023 09:00-0400 Diastolic blood pressure 88 mm[Hg] Gissel Santana Other [facility] [employer] Other 04-12-2023 09:00-0400 Systolic blood pressure 129 mm[Hg] Gissel Santana Other [employer] Other 10-11-2022 02:06-0500 Body weight 111.[address] ESTELLA MIN . [facility] Comment on above: Performed By: #### AFPMAT #### [facility] [address] [place] [address] Dr. Alexsander Dickinson Clinical Notes 03-09-2022 to [...] meat, and stay away from [facility]. Patient has also been advised to [...] Meenakshi Rosenthal MA documented in this encounter [facility] 05-15-2023 Evaluation note Encounter Date Diagnosis Assessment [...] understanding and is agreeable to treatment plan. [employer] Other 07-12-2023 Evaluation note* Encounter Date Diagnosis Assessment Notes Treatment Notes Treatment Clinical Notes Apr, Anxiety disorder, unspecified (ICD-10 - F41.9) Pt states that she, and her , agree that she is doing better on the medication. Continues to have stress, but is dealing more appropriately. Would like to continue this med and this dose. f/u6 months, sooner if needed. [employer] [facility] [employer] Other 06-15-2023 Evaluation note* Encounter Date Diagnosis [...] help for overwhelm. followup in 1 month [employer] Other 05-12-2022 NoteEducation Materials Cardiovascular Hypertension, Adult [...] without skin, beans, e (more content not included)...[facility] noteNo assessment information availableSt[facility] Work Phone: Evaluation noteNo InformationNort [employer] Other Evaluation note* Diagnosis Missed menses [facility] N[facility] - Reported* Type Description Date Surgical History C-sect 2019 Surgical History C-sect 2022 [facility] [employer] Other History general Narrative - Reported* Type Description Date Medical History Anxiety disorder, unspecified Surgical History C-sect 2019 Surgical History C-sect 2022 Hospitalization History SEE SURGICAL HX [facility] Other History general Narrative - Reported* Type Description Date Medical History Anxiety disorder, unspecified Medical History Gestational diabetes Surgical History C-sect 2019 Surgical History C-sect 2022 Hospitalization History SEE SURGICAL HX [facility] [employer] Other Summary Purpose Family History No Family History Records FoundNo Family History Records FoundNo Family History Records FoundNo Family History Records Found Advance Directives No Advanced Directives Records FoundNo Advanced Directives Records FoundNo Advanced Directives Records FoundNo Advanced Directives Records Found Additional Source Comments INFORMATION SOURCE (unrecogn ized section and content) DATE CREATED AUTHOR 03/18/2022 [facility] DATE CREATED AUTHOR AUTHOR'S ORGANIZ ATION [facility]2023 [facility] DATE CREATED AUTHOR AUTHOR'S ORGANIZ ATION 05/24/2023 [facility] DATE CREATED AUTHOR AUTHOR'S ORGANIZ ATION 05/05/2024 [facility] dical Specialists EPIC REASON FOR VISIT (unrecogniz ed section and content) Reason Comments Amenorrhea Care Teams (unrecognized sec tion and content) Team Status: Inactive Member Role Status Dates Linsey Witt APRN Attending Provider Active Shank Pinner Relationship Specialty Start Date End Date Gissel Santana MD [address] [facility] [place] [address] PCP - General Family Medicine 04/02/23 Goals [...] BE BASED ON THE PRIMARY CLINICAL RECORDS. [employer] [facility]. provides no warranty or guarantee of the accuracy or completeness of information in this document.
--- NOTE | 2024-05-21 11:00 | US_ITS ---
[address] [address] Patient Name: VADIM CONSTANTINO MRN: [id number] date: 1995 Sex: F Assigned Patient Location: [facility] Current Patient Location: [facility] Accession/Order Number: [id number] Exam Date: 05/21/2024 11:05 Report Date: 05/21/2024 12:16 At the request of: ESTELLA BUENO Procedure: US OB BPP w non-stress EXAMINATION: US OB BPP w non-stress HISTORY: Gestational diabetes mellitus O24.419 COMPARISON: No relevant comparison available. TECHNIQUE: Ultrasound biophysical profile was performed in the radiology department. non-reactive stress testing was performed by nursing staff in the birthing center. FINDINGS: BREATHING MOVEMENTS: 2 GROSS BODY MOVEMENTS: 2 TONE: 2 QUALITATIVE AMNIOTIC FLUID VOLUME: 2 PRESENTATION: CEPHALIC HEART RATE: 163.64 bpm AMNIOTIC FLUID VOLUME: 18.4 cm GESTATIONAL AGE: 31 weeks 6 days US/US OB BPP w non-stress IMPRESSION: Total biophysical profile score: 8 Electronically authenticated by: SEBASTIAN HENRY Date: 05/21/2024 12:16
[2024-05-21 11:30] VITALS: BP 123/75; PULSE 89
== END 2024-05-21 12:40 | disposition home or self-care (01) ==
LOC: US 06:59 → FBC 11:00
PROVIDERS: Visit Provider Obstetrics & Gynecology
DX: O24.419 Gestational diabetes mellitus in pregnancy, unspecified control (principal); Z3A.27 27 weeks gestation of pregnancy; Z3A.32 32 weeks gestation of pregnancy
CPT/HCPCS: 76816; 76818

== ENCOUNTER 2024-05-24 08:47 | Outpatient (OUT) | payer BC, SELFPAY ==
--- OUTSIDE RECORDS SUMMARY | 2024-05-24 08:49 | XMS_ITS | CCD ---
Author Organization [facility] Care Team Providers Care Substance Abuse Technician Name Role Phone MECHELLE ., DR SORIA [...] Unavailable MECHELLE ., DR SORIA Admitting Unavailable [place], Sebastian Consulting Unavailable SANTANA, DR GISSEL Teresa [...] Unavailable Gissel Santana MD Primary Care Provider [phone] ESTELLA MIN Attending Unavailable ESTELLA MIN Attending Unavailable JULITA NEW Attending Unavailable ESTELLA MIN Attending Unavailable ESTELLA MIN Attending Unavailable JULITA NEW Attending Unavailable Medications Current Medications Medication Drug [...] Interpretation and review of laboratory results Abnormal [facility] Healthca re Preg Test, Ur Positive [facility] Health[facility] Urinalysis macro (dipstick) panel (U)on 12-13-2023 Bilirubin, UA Negative Negative - 4(70) +++ mg/dL [facility] Blood, UA Negative Negative - 50 Sal/mcL [facility] Clarity, UA Clear [facility] Healthnm re Color, UA Yellow [facility] Healthcar e Glucose, UA Negative Negative - 1999(110) ++++ mg/dL [facility] Interpretation and review of laboratory results Abnormal [facility] re Ketones, UA Positive Negative - 160(16) ++++ mg/dL [facility] Leukocytes, UA Negative Negative - 500+++ Lizzy/mcL [facility] Nitrite, UA Negative Negative - Positive [facility] pH, UA 7.0 5 - 9 [facility] Healthcar e Protein, UA Positive Negative - 1999(20) ++++ mg/dL [facility] Spec Grav, UA 1.030 1 - 1.03 [facility] Urobilinogen, UA 0.2 0.2 - 12 mg/dL [facility] Quick Strepon 05-15-2023 S. pyogenes Org specific cx Ql (Throat) Negative [employer] Other Quick Strep [employer] Other Throat Cultureon 05-15-2023 Throat culture Heavy Normal Respiratory John 2 Days PERFORMED BY: [address] [place] [place] [address] PATHOLOGIST CURTAIN FITTER ARACELI HAYWOOD M.D. Normal [facility] Comment on above: Performed By: #### C CT #### [facility] [address] GROUP B STREP CULTUREon 01-27 S. [...] F Tetracycline <=0.25 S F Normal [facility] Comment on above: Performed By: #### A FPMAT #### [facility] [address] [place] [address] Dr. Alexsander Dickinson CBC AUTO DIFFon 02-02-2023 BASO # 0.0 103/ul Normal 0.0-0.1 [facility] Comment on above: Performed By: #### C BC #### [facility] [address] [place] [address] Dr. Alexsander Dickinson Basophils/100 WBC (Bld) 0.2 % Normal 0.2-2.0 [facility] Comment on above: Performed By: #### C BC #### [facility] [address] [place] [address] Dr. Alexsander Dickinson EO # 0.0 103/ul Normal 0.0-0.7 [facility] Comment on above: Performed By: #### C BC #### [facility] [address] [place] [address] Dr. Alexsander Dickinson Eosinophils/100 WBC (Bld) 0.0 % Critically low 0.9-7.0 [facility] Comment on above: Performed By: #### C BC #### [facility] [address] [place] [address] Dr. Alexsander Dickinson Erythrocyte distribution width (RBC) [Ratio] 12.5 % Normal 11.0-15.0 [facility] Comment on above: Performed By: #### C BC #### [facility] [address] [address] [address] Alexsander Dickinson Hematocrit (Bld) [Volume fraction] 32.9 % Critically low 36.0-48.0 [facility] Comment on above: Performed By: #### C BC #### [facility] [address] [place] [address] Dr. Alexsander Dickinson Hemoglobin (Bld) [Mass/Vol] 10.7 g/dL Critically low 12.0-16.0 [facility] Comment on above: Performed By: #### C BC #### [facility] [address] [place] [address] Dr. Alexsander Dickinson IG # 0.12 10e3/ul Critically high 0.00-0.03 [facility] Comment on above: Performed By: #### C BC #### [facility] [address] [place] [address] Dr. Alexsander Dickinson IG % 0.7 % Critically high 0.0-0.5 [facility] Comment on above: Performed By: #### C BC #### [facility] [address] [place] [address] Dr. Alexsander Dickinson LYMPH # 1.1 103/ul Critically low 1.2-3.8 [facility] Comment on above: Performed By: #### C BC #### [facility] [address] [place] [address] Dr. Alexsander Dickinson Lymphocytes/100 WBC (Bld) 6.4 % Critically low 20.5-60.0 [facility] Comment on above: Performed By: #### C BC #### [facility] [address] [place] [address] Dr. Alexsander Dickinson MANUAL DIFF REQ NO Normal [facility] Comment on above: Performed By: #### C BC #### [facility] [address] [place] [address] Dr. Alexsander Dickinson MCH (RBC) [Entitic mass] 26.1 pg Critically low 26.7-34.0 [facility] Comment on above: Performed By: #### C BC #### [facility] [address] [address] [address] Alexsander Dickinson MCHC (RBC) [Mass/Vol] 32.5 g/dL Normal 29.9-35.2 [facility] Comment on above: Performed By: #### C BC #### [facility] [address] [address] [address] Alexsander Dickinson MCV (RBC) [Entitic vol] 80.2 fL Critically low 81.0-99.0 [facility] Comment on above: Performed By: #### C BC #### [facility] [address] [address] [address] Alexsander Dickinson MONO # 0.4 103/ul Normal 0.3-0.8 [facility] Comment on above: Performed By: #### C BC #### [facility] [address] [place] [address] Dr. Alexsander Dickinson Monocytes/100 WBC (Bld) 2.1 % Normal 1.7-12.0 [facility] Comment on above: Performed By: #### C BC #### [facility] [address] [place] [address] Dr. Alexsander Dickinson NEUT # 15.5 103/ul Critically high 1.4-6.5 [facility] Comment on above: Performed By: #### C BC #### [facility] [address] [place] [address] Dr. Alexsander Dickinson Neutrophils/100 WBC (Bld) 90.6 % Critically high 43.0-75.0 [facility] Comment on above: Performed By: #### C BC #### [facility] [address] [place] [address] Dr. Alexsander Dickinson Platelet mean volume (Bld) [Entitic vol] 10.7 fL Normal 9.5-13.5 [facility] Comment on above: Performed By: #### C BC #### [facility] [address] [place] [address] Dr. Alexsander Dickinson PLT 310 103/ul Normal 150-450 [facility] Comment on above: Performed By: #### C BC #### [facility] [address] [address] [address] Alexsander Dickinson RBC 4.10 106/ul Critically low 4.20-5.40 [facility] Comment on above: Performed By: #### C BC #### [facility] [address] [address] [address] Alexsander Dickinson WBC 17.1 103/ul Critically high 4.0-11.0 [facility] Comment on above: Performed By: #### C BC #### [facility] [address] [place] [address] Dr. Alexsander Dickinson CBC AUTO DIFFon 02-01-2023 BASO # 0.0 103/ul Normal 0.0-0.1 [facility] Comment on above: Performed By: #### A 1C #### [facility] [address] [place] [address] Dr. Alexsander Dickinson Basophils/100 WBC (Bld) 0.2 % Normal 0.2-2.0 [facility] Comment on above: Performed By: #### A 1C #### [facility] [address] [place] [address] Dr. Alexsander Dickinson EO # 0.0 103/ul Normal 0.0-0.7 [facility] Comment on above: Performed By: #### A 1C #### [facility] [address] [place] [address] Dr. Alexsander Dickinson Eosinophils/100 WBC (Bld) 0.4 % Critically low 0.9-7.0 [facility] Comment on above: Performed By: #### A 1C #### [facility] [address] [place] [address] Dr. Alexsander Dickinson Erythrocyte distribution width (RBC) [Ratio] 12.9 % Normal 11.0-15.0 [facility] Comment on above: Performed By: #### A 1C #### [facility] [address] [place] [address] Dr. Alexsander Dickinson Hematocrit (Bld) [Volume fraction] 34.2 % Critically low 36.0-48.0 [facility] Comment on above: Performed By: #### A 1C #### [facility] [address] [address] [address] Alexsander Dickinson Hemoglobin (Bld) [Mass/Vol] 11.4 g/dL Critically low 12.0-16.0 [facility] Comment on above: Performed By: #### A 1C #### [facility] [address] [address] [address] Alexsander Dickinson IG # 0.04 10e3/ul Critically high 0.00-0.03 [facility] Comment on above: Performed By: #### A 1C #### [facility] [address] [place] [address] Dr. Alexsander Diciknson IG % 0.5 % Normal 0.0-0.5 [facility] Comment on above: Performed By: #### A 1C #### [facility] [address] [place] [address] Dr. Alexsander Dickinson LYMPH # 2.1 103/ul Normal 1.2-3.8 [facility] Comment on above: Performed By: #### A 1C #### [facility] [address] [place] [address] Dr. Alexsander Dickinson Lymphocytes/100 WBC (Bld) 23.9 % Normal 20.5-60.0 [facility] Comment on above: Performed By: #### A 1C #### [facility] [address] [place] [address] Dr. Alexsander Dickinson MANUAL DIFF REQ NO Normal [facility] Comment on above: Performed By: #### A 1C #### [facility] [address] [place] [address] Dr. Alexsander Dickinson MCH (RBC) [Entitic mass] 27.0 pg Normal 26.7-34.0 [facility] Comment on above: Performed By: #### A 1C #### [facility] [address] [place] [address] Dr. Alexsander Dickinson MCHC (RBC) [Mass/Vol] 33.3 g/dL Normal 29.9-35.2 [facility] Comment on above: Performed By: #### A 1C #### [facility] [address] [place] [address] Dr. Alexsander Dickinson MCV (RBC) [Entitic vol] 81.0 fL Normal 81.0-99.0 [facility] Comment on above: Performed By: #### A 1C #### [facility] [address] [place] [address] Dr. Alexsander Dickinson MONO # 0.5 103/ul Normal 0.3-0.8 [facility] Comment on above: Performed By: #### A 1C #### [facility] [address] [place] [address] Dr. Alexsander Dickinson Monocytes/100 WBC (Bld) 6.0 % Normal 1.7-12.0 [facility] Comment on above: Performed By: #### A 1C #### [facility] [address] [place] [address] Dr. Alexsander Dickinson NEUT # 5.9 103/ul Normal 1.4-6.5 [facility] Comment on above: Performed By: #### A 1C #### [facility] [address] [place] [address] Dr. Alexsander Dickinson Neutrophils/100 WBC (Bld) 69.0 % Normal 43.0-75.0 [facility] Comment on above: Performed By: #### A 1C #### [facility] [address] [place] [address] Dr. Alexsander Dickinson Platelet mean volume (Bld) [Entitic vol] 10.5 fL Normal 9.5-13.5 [facility] Comment on above: Performed By: #### A 1C #### [facility] [address] [place] [address] Dr. Alexsander Dickinson PLT 275 103/ul Normal 150-450 [facility] Comment on above: Performed By: #### A 1C #### [facility] [address] [place] [address] Dr. Alexsander Dickinson RBC 4.22 106/ul Normal 4.20-5.40 [facility] Comment on above: Performed By: #### A 1C #### [facility] [address] [place] [address] Dr. Alexsander Dickinson WBC 8.6 103/ul Normal 4.0-11.0 [facility] Comment on above: Performed By: #### A 1C #### [facility] [address] [place] [address] Dr. Alexsander Dickinson LDHon 02-01-2023 LDH 124 U/L Normal 81-234 [facility] Comment on above: Performed By: #### C MP, LDH, URIC #### [facility] [address] [place] [address] Dr. Alexsander Dickinson POINT OF CARE GLUCOSEon Glucose [Mass/Vol] 98 mg/dL Normal 74-106 [facility] Comment on above: Performed By: #### A 1C #### [facility] [address] [place] [address] Dr. Alexsander Dickinson PROF 14(COMP METB)on 023 Albumin [Mass/Vol] 2.5 g/dL Critically low 3.4-5.0 [facility] Comment on above: Performed By: #### C MP, LDH, URIC #### [facility] [address] [place] [address] Dr. Alexsander Dickinson Albumin/Globulin [Mass ratio] 0.6 {ratio} Normal [facility] Comment on above: Performed By: #### C MP, LDH, URIC #### [facility] [address] [place] [address] Dr. Alexsander Dickinson ALP [Catalytic activity/Vol] 138 U/L Critically high 46-116 [facility] Comment on above: Performed By: #### C MP, LDH, URIC #### [facility] [address] [place] [address] Dr. Alexsander Dickinson ALT [Catalytic activity/Vol] 15 U/L Normal 14-59 [facility] Comment on above: Performed By: #### C MP, LDH, URIC #### [facility] [address] [place] [address] Dr. Alexsander Dickinson Anion gap [Moles/Vol] 14.5 mmol/L Normal [facility] Comment on above: Performed By: #### C MP, LDH, URIC #### [facility] [address] [address] [address] Alexsander Dickinson AST [Catalytic activity/Vol] 8 U/L Critically low 15-37 [facility] Comment on above: Performed By: #### C MP, LDH, URIC #### [facility] [address] [address] [address] Alexsander Dickinson Bilirubin [Mass/Vol] 0.2 mg/dL Normal 0.2-1.0 [facility] Comment on above: Performed By: #### C MP, LDH, URIC #### [facility] [address] [address] [address] Alexsander Dickinson Calcium [Mass/Vol] 8.6 mg/dL Normal 8.5-10.1 [facility] Comment on above: Performed By: #### C MP, LDH, URIC #### [facility] [address] [place] [address] Dr. Alexsander Dickinson Chloride [Moles/Vol] 103 mmol/L Normal 98-107 [facility] Comment on above: Performed By: #### C MP, LDH, URIC #### [facility] [address] [address] [address] Alexsander Dickinson CO2 [Moles/Vol] 23.7 mmol/L Normal 21.0-32.0 [facility] Comment on above: Performed By: #### C MP, LDH, URIC #### [facility] [address] [address] [address] Alexsander Dickinson Creatinine [Mass/Vol] 0.61 mg/dL Normal 0.55-1.02 [facility] Comment on above: Performed By: #### C MP, LDH, URIC #### [facility] [address] [address] [address] Alexsander Dickinson EGFR-AF MOROCCAN >60 Normal >=60 [facility] Comment on above: Performed By: #### C MP, LDH, URIC #### [facility] [address] [place] [address] Dr. Alexsander Dickinson EGFR-NON AF MOROCCAN >60 Normal >=60 [facility] Comment on above: Performed By: #### C MP, LDH, URIC #### [facility] [address] [address] [address] Alexsander Dickinson Globulin (S) [Mass/Vol] 4.1 g/dL Normal [facility] Comment on above: Performed By: #### C MP, LDH, URIC #### [facility] [address] [address] [address] Alexsander Dickinson Glucose [Mass/Vol] 123 mg/dL Critically high 74-106 [facility] Comment on above: Performed By: #### C MP, LDH, URIC #### [facility] [address] [place] [address] Dr. Alexsander Dickinson Potassium [Moles/Vol] 4.2 mmol/L Normal 3.5-5.1 [facility] Comment on above: Performed By: #### C MP, LDH, URIC #### [facility] [address] [place] [address] Dr. Alexsander Dickinson Protein [Mass/Vol] 6.6 g/dL Normal 6.4-8.2 [facility] Comment on above: Performed By: #### C MP, LDH, URIC #### [facility] [address] [place] [address] Dr. Alexsander Dickinson Sodium [Moles/Vol] 137 mmol/L Normal 136-145 [facility] Comment on above: Performed By: #### C MP, LDH, URIC #### [facility] [address] [place] [address] Dr. Alexsander Dickinson Urea nitrogen [Mass/Vol] 5.0 mg/dL Critically low 7.0-18.0 [facility] Comment on above: Performed By: #### C MP, LDH, URIC #### [facility] [address] [place] [address] Dr. Alexsander Dickinson Urea nitrogen/Creatinine [Mass ratio] 8.2 mg/mg Normal [facility] Comment on above: Performed By: #### C MP, LDH, URIC #### [facility] [address] [place] [address] Dr. Alexsander Dickinson PROTIMEon 02-01-2023 INR Coag (PPP) [Relative time] {INR} Normal [facility] Comment on above: Performed By: #### H BSANS #### [facility] [address] [place] [address] Dr. Alexsander Dickinson INR GUIDELINES SEE BELOW Normal [facility] Comment on above: Result Comment: CAROLEE RED INR: 2.0 - 3.0 CONDITIONS NOT LISTED BELOW 2.5 - 3.5 FOR PROSTHETIC HEART VALVE REPLACEMENT 2.5 - 3.5 RECURRENT THROMBOSIS Performed By: #### H BSANS #### [facility] [address] [place] [address] Dr. Alexsander Dickinson PT Coag (PPP) [Time] 9.2 s Normal 9.0-11.6 [facility] Comment on above: Performed By: #### H BSANS #### [facility] [address] [place] [address] Dr. Alexsander Dickinson PTTon 02-01-2023 aPTT Coag (Bld) [Time] 25.9 s Normal 22.3-36.2 [facility] Comment on above: Performed By: #### H BSANS #### [facility] [address] [place] [address] Dr. Alexsander Dickinson TYPE AND SCREENon 02-01-2023 TYPE AND SCREEN Negative Normal [facility] Comment on above: Performed By: #### A FPMAT #### [facility] [address] [place] [address] Dr. Alexsander Dickinson URIC ACID SERUMon 02-01-2023 Urate [Mass/Vol] 5.5 mg/dL Normal 2.6-6.0 [facility] Comment on above: Performed By: #### C MP, LDH, URIC #### [facility] [address] [place] [address] Dr. Alexsander Dickinson US PREG BIOPHY W [...] by: DEE GALLEGOS Date: 2023-02-01 15:04 Normal [facility] US PREG BIOPHY W NON STRESSo [...] by: SEBASTIAN HENRY Date: 2023-01-25 15:18 Normal [facility] US PREG BIOPHY W NON STRESSo [...] by: DEE GALLEGOS Date: 2023-01-19 06:16 Normal [facility] US PREG BIOPHY W NON STRESSo [...] DEE GALLEGOS Date: 2023-01-11 15:38 Normal [facility] US PREG GROWTHon 01-11-2023 US PREG [...] DEE GALLEGOS Date: 2023-01-11 16:42 Normal [facility] GTT 3 HR PREGon 12-01-2022 Glucose [Mass/Vol] 104 mg/dL Normal 74-106 [facility] Comment on above: Performed By: #### A 1C #### [facility] [address] [address] [address] Alexsander Dickinson Glucose [Mass/Vol] 182 mg/dL Normal [facility] Comment on above: Performed By: #### A 1C #### [facility] [address] [address] [address] Alexsander Dickinson Glucose [Mass/Vol] 114 mg/dL Normal [facility] Comment on above: Performed By: #### A 1C #### [facility] [address] [place] [address] Dr. Alexsander Dickinson Glucose [Mass/Vol] 73 mg/dL Normal [facility] Comment on above: Performed By: #### A 1C #### [facility] [address] [address] [address] Alexsander Dickinson PAP ACOG PANEL 2: 20 to 28on 11-18-2022 . . Normal [facility] Comment on above: Performed By: #### A 1C #### [facility] [address] [place] [address] Dr. Alexsander Dickinson Age Gdln ACOG Testing 21-29 [facility] Comment on above: Performed By: #### A 1C #### [facility] [address] [place] [address] Dr. Alexsander Dickinson DIAGNOSIS: Comment [facility] Comment on above: Result Comment: NEGA TIVE FOR INTRAEPITHELIAL LESION OR MALIGNANCY. Performed By: #### A 1C #### [facility] [address] [place] [address] Dr. Alexsander Dickinson Methodology: Comment [facility] Comment on above: Result Comment: This liquid based ThinPrep(R) pap test was screened with the use of an image guided system. Performed By: #### A 1C #### [facility] [address] [place] [address] Dr. Alexsander Dickinson Note: Comment [facility] Comment on above: Result Comment: The Pap smear is a screening test designed to aid in the detection of premalignant and malignant conditions of the uterine cervix. It is not a diagnostic procedure and should not be used as the sole means of detecting cervical cancer. Both false-positive and false-negative reports do occur. . Performed By: #### A 1C #### [facility] [address] [place] [address] Dr. Alexsander Dickinson Performed by: Comment Normal [facility] Comment on above: Result Comment: Cici Clarke, [employer] Estimator (ASCP) Performed By: #### A 1C #### [facility] [address] [place] [address] Dr. Alexsander Dickinson Reflex Criteria: Comment [facility] Comment on above: Result Comment: The HPV DNA reflex criteria were not met with this specimen result therefore, no HPV testing was performed. . Performed By: #### A 1C #### [facility] [address] [place] [address] Dr. Alexsander Dickinson Specimen adequacy: Comment Normal [facility] Comment on above: Result Comment: Sati sfactory for evaluation. No endocervical component is identified. Performed By: #### A 1C #### [facility] [facility] [address] [place] [address] Dr. Alexsander Dickinson CHLAMYDIA/GONOCOCCUS ZUNILDA (SW AB/URINE/PAPon 11-17-2022 Chlamydia trachomatis, ZUNILDA Negative Normal Negative [facility] Comment on above: Performed By: #### A 1C #### [facility] [address] [place] [address] Dr. Alexsander Dickinson Neisseria gonorrhoeae, ZUNILDA Negative Normal Negative [facility] Comment on above: Performed By: #### A 1C #### [facility] [address] [place] [address] Dr. Alexsander Dickinson VAGINITIS/VAGINOSIS DNA PROB Jose De Jesus 11-16-2022 Reema species Negative Normal Negative [facility] Comment on above: Performed By: #### V AGINT #### [facility] [address] [place] [address] Dr. Alexsander Dickinson Gardnerella vaginalis Negative Normal Negative [facility] Comment on above: Performed By: #### V AGINT #### [facility] [address] [place] [address] Dr. Alexsander Dickinson Trichomonas vaginalis Negative Normal Negative [facility] Comment on above: Performed By: #### V AGINT #### [facility] [address] [place] [address] Dr. Alexsander Dickinson US PREG INCOMPLETE ANATOMYon 11-14-2022 US PREG INCOMPLETE ANATOMY EXAMINATION: US PREG INCOMPLETE ANATOMY HISTORY: screening COMPARISON: No relevant comparison available. FINDINGS: Heart rate: 150 bpm position: Variable Anatomy: 4.8 x 5.8 mm choroid plexus cyst is again identified IMPRESSION: Stable choroid plexus cyst Electronically authenticated by: SEBASTIAN HENRY Date: 2022-11-14 16:19 Normal [facility] FREE T4on 10-19-2022 Free T4 [Mass/Vol] 0.89 ng/dL Normal 0.76-1.46 [facility] Comment on above: Performed By: #### H BSANS #### [facility] [address] [address] [address] Alexsander Dickinson TSHon 10-19-2022 TSH 1.303 uIU/mL Normal 0.358-3.740 [facility] Comment on above: Performed By: #### H BSANS #### [facility] [address] [address] [address] Alexsander Dickinson US PREG ANATOMY SINGLEon [...] DEE GALLEGOS Date: 2022-10-17 20:42 Normal [facility] AFP MATERNAL FOR SPINA BIFID Aon 10-11-2022 AFP MoM 1.49 Normal [facility] Comment on above: Performed By: #### A FPMAT #### [facility] [address] [address] [address] Alexsander Dickinson AFP Value 60.8 ng/mL Normal [facility] Comment on above: Performed By: #### A FPMAT #### [facility] [address] [address] [address] Alexsander Dickinson AFP, Serum for Spina Bifida Report Normal [facility] Comment on above: Performed By: #### A FPMAT #### [facility] [address] [address] [address] Alexsander Dickinson Comment Comment Normal [facility] Comment on above: Result Comment: Niurka Patricia, Ph.D., [facility] Director . References: Available Upon Request. . Multiples Of Median Cutoffs For AFP Elevations Fonseca 2.5 Black 2.8 IDD 2.0 Twins 4.5 Abbreviation Definitions IDD - Insulin Dep Diabetes OSBR - Open Spina Bifida Risk . For further inquiries contact [facility] at [phone]. . This test was developed and its performance characteristics determined by [facility]. It has not been cleared or approved by the Food and Drug Administration. Performed By: #### A FPMAT #### [facility] [address] [place] [address] Dr. Alexsander Tiwari Age Collection Date 19.4 weeks Normal [facility] Comment on above: Performed By: #### A FPMAT #### [facility] [id number] Alexsander Dickinson Gestat, Age Based on NILE Normal [facility] Comment on above: Result Comment: 02/2023 Recalculations are not recommended when gestational dating by LMP and ultrasound are within 10 days. Performed By: #### A FPMAT #### [facility] [address] [place] [address] Dr. Alexsander Dickinson Insulin Dep Diabetes No Normal [facility] Comment on above: Performed By: #### A FPMAT #### [facility] [address] [place] [address] Dr. Alexsander Dickinson Interpretation Comment Normal [facility] Comment on above: Result Comment: Inte [...] Customer Services to discuss available options. The [employer] recommends amniocentesis be offered to women age 35 and older. Performed By: #### A FPMAT #### [facility] [address] [place] [address] Dr. Alexsander Dickinson [age] Normal [facility] Comment on above: Performed By: #### A FPMAT #### [facility] [address] [place] [address] Dr. Alexsander Dickinson Multiple Gestation No Normal [facility] Comment on above: Performed By: #### A FPMAT #### [facility] [address] [place] [address] Dr. Alexsander Dickinson OSBR Risk 1 [place] 2809 Normal [facility] Comment on above: Performed By: #### A FPMAT #### [facility] [address] [place] [address] Dr. Alexsander Dickinson PDF . Normal [facility] Comment on above: Performed By: #### A FPMAT #### [facility] [address] [place] [address] Dr. Alexsander Dickinson Race Normal [facility] Comment on above: Performed By: #### A FPMAT #### [facility] [address] [place] [address] Dr. Alexsander Dickinson Test Results: Negative Normal [facility] Comment on above: Performed By: #### A FPMAT #### [facility] [address] [place] [address] Dr. Alexsander Dickinson GTT 3 HR PREGon 09-29-2022 Glucose [Mass/Vol] 99 mg/dL Normal 74-106 [facility] Comment on above: Performed By: #### A FPMAT #### [facility] [address] [address] [address] Alexsander Dickinson Glucose [Mass/Vol] 173 mg/dL Normal [facility] Comment on above: Performed By: #### A FPMAT #### [facility] [address] [address] [address] Alexsander Dickinson Glucose [Mass/Vol] 151 mg/dL Normal [facility] Comment on above: Performed By: #### A FPMAT #### [facility] [address] [address] [address] Alexsander Dickinson Glucose [Mass/Vol] 76 mg/dL Normal [facility] Comment on above: Performed By: #### A FPMAT #### [facility] [address] [place] [address] Dr. Alexsander Dickinson GLUCOSE - 1HRon 09-20-2022 Glucose [Mass/Vol] 159 mg/dL Critically high 74-106 [facility] Comment on above: Performed By: #### H BSANS #### [facility] [address] [place] [address] Dr. Alexsander Dickinson HEP B SURFACE ANTIGEN SCREEN on 08-17-2022 HBsAg Screen Negative Normal Negative [facility] Comment on above: Performed By: #### H BSANS #### [facility] [address] [place] [address] Dr. Alexsander Dickinson HEPATITIS C VIRUS AB W/ REFL EX QUANTon 08-17-2022 HCV AB <0.1 Normal 0.0-0.9 [facility] Comment on above: Performed By: #### A 1C #### [facility] [address] [place] [address] Dr. Alexsander Dickinson Interpretation: Comment Normal [facility] Comment on above: Result Comment: Nega tive Not infected with HCV, unless recent infection is suspected or other evidence exists to indicate HCV infection. Performed By: #### A 1C #### [facility] [address] [place] [address] Dr. Alexsander Dickinson HIV 1 AND 2 WITH REFLEXon HIV Screen 4th Generation wRfx Non-Reactive Normal Non Reactive [facility] Comment on above: Result Comment: HIV Negative HIV-1/HIV-2 antibodies and HIV-1 p24 antigen were NOT detected. There is no laboratory evidence of HIV infection. Performed By: #### H IV12 #### [facility] [address] [address] [address] Alexsander Dickinson RPR QUANTon 08-17-2022 Rapid Plasma Reagin, Quant Non-Reactive Normal NonRea<1:1 [facility] Comment on above: Result Comment: Plea se Note: This test does not meet current guidelines for screening and diagnosis of syphilis. This test is intended for following treatment response in patients being treated for syphilis infection. To screen for syphilis infection, a reflex cascade that includes both RPR and a treponema-specific assay should be utilized, such as Treponema pallidum (Syphilis) Screening [place] (540677) or Rapid Plasma Reagin (RPR) Test With Reflex to Quantitative RPR and Confirmatory Treponema pallidum Antibodies (406697). Performed By: #### H BSANS #### [facility] [address] [place] [address] Dr. Alexsander Dickinson RUBELLA AB IGGon 08-17-2022 Rubella Antibodies, IgG 11.90 index Normal Immune >0.99 [facility] Comment on above: Result Comment: Non- immune <0.90 Equivocal 0.90 - 0.99 Immune >0.99 Performed By: #### H BSANS #### [facility] [address] [address] [address] Alexsander Dickinson CBC AUTO DIFFon 08-16-2022 BASO # 0.1 103/ul Normal 0.0-0.1 [facility] Comment on above: Performed By: #### H BSANS #### [facility] [address] [place] [address] Dr. Alexsander Dickinson Basophils/100 WBC (Bld) 0.6 % Normal 0.2-2.0 [facility] Comment on above: Performed By: #### H BSANS #### [facility] [address] [address] [address] Alexsander Dickinson EO # 0.1 103/ul Normal 0.0-0.7 [facility] Comment on above: Performed By: #### H BSANS #### [facility] [address] [place] [address] Dr. Alexsander Dickinson Eosinophils/100 WBC (Bld) 0.9 % Normal 0.9-7.0 [facility] Comment on above: Performed By: #### H BSANS #### [facility] [address] [place] [address] Dr. Alexsander Dickinson Erythrocyte distribution width (RBC) [Ratio] 12.9 % Normal 11.0-15.0 [facility] Comment on above: Performed By: #### H BSANS #### [facility] [address] [place] [address] Dr. Alexsander Dickinson Hematocrit (Bld) [Volume fraction] 39.0 % Normal 36.0-48.0 [facility] Comment on above: Performed By: #### H BSANS #### [facility] [address] [place] [address] Dr. Alexsander Dickinson Hemoglobin (Bld) [Mass/Vol] 12.9 g/dL Normal 12.0-16.0 [facility] Comment on above: Performed By: #### H BSANS #### [facility] [address] [place] [address] Dr. Alexsander Dickinson IG # 0.04 10e3/ul Critically high 0.00-0.03 [facility] Comment on above: Performed By: #### H BSANS #### [facility] [address] [place] [address] Dr. Alexsander Dickinson IG % 0.4 % Normal 0.0-0.5 [facility] Comment on above: Performed By: #### H BSANS #### [facility] [address] [place] [address] Dr. Alexsander Dickinson LYMPH # 2.4 103/ul Normal 1.2-3.8 [facility] Comment on above: Performed By: #### H BSANS #### [facility] [address] [place] [address] Dr. Alexsander Dickinson Lymphocytes/100 WBC (Bld) 26.3 % Normal 20.5-60.0 [facility] Comment on above: Performed By: #### H BSANS #### [facility] [address] [place] [address] Dr. Alexsander Dickinson MANUAL DIFF REQ NO Normal [facility] Comment on above: Performed By: #### H BSANS #### [facility] [address] [place] [address] Dr. Alexsander Dickinson MCH (RBC) [Entitic mass] 28.4 pg Normal 26.7-34.0 [facility] Comment on above: Performed By: #### H BSANS #### [facility] [address] [place] [address] Dr. Alexsander Dickinson MCHC (RBC) [Mass/Vol] 33.1 g/dL Normal 29.9-35.2 [facility] Comment on above: Performed By: #### H BSANS #### [facility] [address] [place] [address] Dr. Alexsander Dickinson MCV (RBC) [Entitic vol] 85.7 fL Normal 81.0-99.0 [facility] Comment on above: Performed By: #### H BSANS #### [facility] [address] [place] [address] Dr. Alexsander Dickinson MONO # 0.6 103/ul Normal 0.3-0.8 [facility] Comment on above: Performed By: #### H BSANS #### [facility] [address] [place] [address] Dr. Alexsander Dickinson Monocytes/100 WBC (Bld) 6.8 % Normal 1.7-12.0 [facility] Comment on above: Performed By: #### H BSANS #### [facility] [address] [place] [address] Dr. Alexsander Dickinson NEUT # 5.8 103/ul Normal 1.4-6.5 [facility] Comment on above: Performed By: #### H BSANS #### [facility] [address] [address] [address] Alexsander Dickinson Neutrophils/100 WBC (Bld) 65.0 % Normal 43.0-75.0 [facility] Comment on above: Performed By: #### H RACHELNS #### [facility] [address] [place] [address] Dr. Alexsander Dickinson Platelet mean volume (Bld) [Entitic vol] 9.9 fL Normal 9.5-13.5 [facility] Comment on above: Performed By: #### H BSANS #### [facility] [address] [place] [address] Dr. Alexsander Dickinson PLT 275 103/ul Normal 150-450 [facility] Comment on above: Performed By: #### H BSANS #### [facility] [address] [place] [address] Dr. Alexsander Dickinson RBC 4.55 106/ul Normal 4.20-5.40 [facility] Comment on above: Performed By: #### H BRITTANIE #### [facility] [address] [place] [address] Dr. Alexsander Dickinson WBC 8.9 103/ul Normal 4.0-11.0 [facility] Comment on above: Performed By: #### H BSAMARC #### [facility] [address] [place] [address] Dr. Alexsander Dickinson CULTURE URINEon 08-16-2022 CULTURE URINE Culture Observations: MODERATE GROWTH OF MIXED GENITAL JOHN. NO POTENTIAL PATHOGENS SEEN. Normal [facility] Comment on above: Performed By: #### A FPMAT #### [facility] [address] [place] [address] Dr. Alexsander Dickinson GLYCOHEMOGLOBIN A1Con 2021 ADA RECOMMENDATION SEE BELOW Normal [facility] Comment on above: Result Comment: ADA RECOMMENDED LIMIT 4.0 - 6.0 ADA THERAPEUTIC TARGET < 7.0 ACTION SUGGESTED > 7.0 Performed By: #### A 1C #### [facility] [address] [place] [address] Dr. Alexsander Dickinson Glucose [Mass/Vol] 111 mg/dL Normal [facility] Comment on above: Performed By: #### A 1C #### [facility] [address] [address] [address] Alexsander Dickinson HbA1c (Bld) [Mass fraction] 5.5 % Normal 4.5-6.2 [facility] Comment on above: Performed By: #### A 1C #### [facility] [address] [address] [address] Alexsander Dickinson LATRELL BOX TEST PT SEND OUTo n 08-16-2022 SENT TO REF LAB 08/16/2022 Normal [facility] Comment on above: Performed By: #### N BOX #### [facility] [address] [address] [address] Alexsander Dickinson TYPE AND SCREENon 08-16-2022 TYPE AND SCREEN Negative Normal [facility] Comment on above: Performed By: #### A FPMAT #### [facility] [address] [place] [address] Dr. Alexsander Dickinson US PREG TVon 07-21-2022 [...] DEE GALLEGOS Date: 2022-07-20 22:25 Normal [facility] US PREG TVon 07-13-2022 US PREG TV EXAMINATION: US PREG TV HISTORY: Missed period COMPARISON: 03/09/2022 FINDINGS: Fonseca intrauterine gestation Gestational sac: 1.7 cm, 6 weeks 2 days Yolk sac: 1.7 mm [place]-rump length: 5.8 mm, 6 weeks 3 days Heart rate: 125 bpm Uterus is normal in appearance, anteverted, retroflexed The ovaries are normal in appearance. Cervix: Closed, 3.9 cm small amount of fluid in the endocervical canal IMPRESSION: Viable fonseca intrauterine gestation measuring 6 weeks 3 days Electronically authenticated by: SEBASTIAN HENRY Date: 2022-07-13 17:05 Normal [facility] Coding Summaryon 03-17-2022 Coding Summary HTMLBase 64 HaruxlzjSEp6hBf+PGhl YWQ+BV2ZFUOpS40vuYXu yW5DU5iWGZ1OEXHMKUMG PS3OLY7mpFU4XCldI9Pa biAv IrasjVXcOA44DFd5QAF1 sYcuLXldmQ6lpXWiF3k1 JySiET06fQ16RKkkIXVg YxG0VzAhyvmjpVWt O0yhIaKgcDBhRrw+PHRh YmxlIHdpZHRoPScxMDAl HsIypMkgRJ7uSc8bXMXe LWNvbGxhcHNlOiBj s2lcDBKtEGpbAN8ffBtw G9ZeaYA0YHQqa9m8Fd86 dHI+LUWkYNQ5qBfyRJhm e295BmVdt4dqVKI1 oMCjVBovSWR4M99hu4R7 CJMvMFIoMMF9fKF8oZ9x yTcobitiV0GutZZzHdM1 VRW9nGZdfF7ciMjp cubhwH1iRxc+P98LJA5V BPYSNQ8YInx2R2OlLkww dHI+GC35YKTbBU65iKVc dYDoq6qcvAb6QaRj JEEnIUE3yFwrZPycb4Ce PYQuC92uxFWjo2V3BHYz oElvzQFzFdOxePS1tA6e DSjalyqsw1ktjong Pwtuc2wbob82kP43K53u ZShhCFCyTMT0TKZnSHAu cBurie4tcP9tWq2+IDxj q6sbn0gukSf7SiCr RPMtwwFxbSwiYRC9p8Yx Wb69Y5QazXfur5ZmHkz2 hi94jYMip5E9hRM3KQfw BZFurL0jKTkpHrE1 QSDvLfPpfH51uUEaHMgz Bo0ayAsclKxyNH6uKXAa bchaIYXgiG6kCYPgfSCq tNhsFF0zPACdanec z168JdNvDYS7GFDzuDSb W3AmhL9nBhSvHAPfJRJh N8JfgJLyXFcfC688TSep FlW0OFMuwhVyB7Ew NJCxoKiaJyO2n0E4Mb9Y s3VwdckuPGN3LUugKFT8 NrFgTfAbGhT3N2UiJne4 OLRygMhjZA7iR7Cq CHZbgskauvewtWF2PNZq XVLioD18mXLvCAquKl8i a1K4n997BKOaYEUeeN82 Lq0lpUynJMEziIUY yQ8fsvzwv8heqlwcRfUk EIDkZCh4FWv5MXBkbJuz OpLhYYV3FuA7VKM8bVDk yL0dfPdvfvohuY3q Oyc+F70bkM9gNHQ8GDN9 fvbaHWQrrjSuWW66QP68 G3ZmFihesHJbpTX+PGRp hqWmbUtgWA0sTgUa h3zgt7RrXObsI3CpEUZi ENwvQjl6LYOvZYE2bXS7 tA6kFGWdOWxby0T0cYK5 Q0CkuyEozt6wn3qu EFXyBWnbK93zmZKry0I2 CRYzqKF1EUBmhOdjBaEn rN08Unq+FZQjdPzjf1Za Rbkuz2taj5vnaEt3 IjMwJSIgdmFsaWduPSJ0 r9PrTz23D65rKYyjPHYs EZOkRPEpGDUtuQdcxn5a bA0nRp9+PGNvbCB3 yBQ6pV0yCTNxHvA8CApa V495MlYbgEEyUrzld6xg x5zcqAa5ZqLlVHVuirXa sCviMEQ0m0JzQq93 B95sWKpaQGFfFGRyJELs USBkfGxrkh5pmM1qBm2+ CB5gn1opkr18kT64uNK+ LYMtSXF4zZnrHAeo GGQqvR1mPXwgRdR3GSYk HaWkuD06tQXbQPaqVy3i iAiqiUdjCU5xCQFwqyje j775ZlKlg4tlLQAb wYWuKAipTNI7J12fu2N2 JIVwIVLcDIE2hPA5fH0j bGlnbjogbGVmdDsgdmVy wBvyQJtiRDzxR127 IHRvcDsnPlBhdGllbnQg NqSjEWn3S0AlSud4GRSq cFzeXU2omZPgIOqyUi0w wLiunEwyIO3jOTTs ivgdd786XxMnp0hvPMCn wHSdNTmeOLX0B39jr4V1 MOGhPOJjHBS2dSM5bU5g bGlnbjogbGVmdDsg awGtwRkrNLwnRGypQ890 IHRvcDsnPkJpcnRoIERh xOI9BO52ZF48vXSfj0I5 iCP4U2HsQRMhcmye jfcpeJW8DVMsFTNipD46 Pb2ajBbsWw4rECLzLVS0 IRQqkFWrI0EvpF1sStLf EBQdPGLfP2UdrAYa QUzmZ432CYkcFoZ8FUXf kbZmS6QrZZLkyNgbNvK1 o8O1Nz4TW3T9CM09DH32 iCJar2O2eCG0D9Ts JCVduvwcjptqzRU3DVLo GIOriB55So6xsUmuIw6h FDClUME2CDDxvSUzS1On aC2cZxWwAGOsQUMu C8VvyGIlTFnpA742YGyg EkQ5PEQhwiRsG3ItZSVo xKbfKlV5p5K1Xp1ELAs7 BD03BH12oBRoj1W6 jOI6S3BiFTXcwtjohjhv mQI5VDRrRFRfrC56Pp0y tGypXl1oDOAjVZF8GMRo oJJeR9VacS6uSpPc ONBhFIJpY0TvdEFyXAii A827CNmvJvE6JYOemdVg G1GiQKDhhIqlFoW2h1I4 Wh5LRWPoID11CAV8 qYZ4NS34FU40B7JgBhau dGFibGU+PHRhYmxlIHdp ZHRoPScxMDAlJyBzdHls BB6qIy5dCYKkWMLv tWmtiEHxRrJmo6yoDYJq QPwzAD1beLvcI6VdmRY4 KBSfq1j9Hu10M09zG7Sm dXA+OBEetQS7aME3 hH8gYcHwDbO8BUzwU096 PmCdtCRcHdbmm5qcf7so yXj0LoB6WVEmeaBflDrk WHE8c0PpDm03P92w IHdpZHRoPSIxNSUiIHZh kTmgmc0miC3gJu6+PGNv zNT4nYS5dJ9hGzHoCeI3 DAabO489DoSsqMCe Ohygk5jng5xosQl9KrBs GJLckyTxgJjeQCI2w9Bg Re74S4HnxShcr4ZbVeh0 pz81kEWtd2Y1rNK8 W9DkXWRpxqxzqXUygVrn RE2kKOXcmimxNPPjyB2h DALnA5z2RwZsMqV1IKow D5RfzlC9RQCdjEMe USjcCRJ7Y37gm0S2VYDl KVLvJHZ7pTX3mQ9pdXxr bjogbGVmdDsgdmVydGlj IPffHWehI107PXJw pXtcZMVqaE7nNIHfkZKh mIedWZ3oKFFznmddJkLM TExJTlMsIEFMWVNTQSBS YDCJGNp5W5UdXhb1 JDWtfVokLW6psZQmOPyd Nb2mwCjtwVnkAN1uZHOi sacuQLFusA5jAJBspXGf uTkhNO6tCLVxinoi j184DjFyELP5NVKnwOHt S1YniQ2pSeZwXFLaIEXo L0SjsDEaSVacV811TGfl PzA3OOQtshQiD4Xk JIXpvVmxXyQ0i1C6Hd8n ZO3yXf7dUKo7MW84RW92 pVRoi1U9aXY6M5CbADMn tnfyzkxzkDU4ZJYp ZNPshV63lLOtLUkqNj1e r9Y9c651WQZjWLAurD33 Jr3njAssBGAccTNTeC6i shutm3pjtrvsChRc XAYzIZl6SNa4KZLqfBib CfBwJWV0QdX7CEM6kMHs tF0oxSsdeovyqS5vEgc+ YecaNBRtozO0O3Mt Wop7PORhkQzbRK8emNAk YNekXy9goRknnDznPT0z JBHimlzvKGBdmA9wFUXd kWVwyDccJB2pOFFs nkmrd535CwJuVDK5OZHt fGZwD3ErqE3sJhQoWXPd LNAqV7KolOWrXLyqV441 GIbcMjQ7GTVnbrHq Y4HuDIWwyVvlLmQ5l8T2 Nk7ETJ9UGYG7W0VyKbx4 XZZvoTnvVR9chFWnKJgg Jt0zeNgifHktGQ8m AWAgqoeuMEAbdB6eAMQa hJDhkNayQA3kLWPxfgiw h003BoFuPRN0PDLtjSMv U9PsaG9kYmHrILYg HLImL2DazCKtBSmqM255 FPaeZvF3VSPiwjKyV8Bo EAKjzJhnVuE5n0H3Wv5X UDwvdGQ+IM48nf63 D5OcRfplIvl0DZYcNIZ9 vHV2nP2hTGIuGOqha6T2 kCL7J6YjxzPrec9jp6ei QNKfXSyrC61syTVi f5M2FGYpcHQ8KZPpxSgg UhUljA87Mda+PGNvbGdy i4AeFxyij6kqx0cyvGr1 IjMwJSIgdmFsaWdu KCO0k4FnCv08Y67sTFjz ZHRoPSIzMCUiIHZhbGln fp2etD7yPi0+PGNvbCB3 aHY3dH7mWpWaGxI2 FKhmQ698SyXomDBuSimh h0zec0cofOa0OdTcGVXk hvLvcUhiRUB7b4TwUh13 K1YqvWmhk2SfXkc1 dz57uPYko0P1iBW0R7Si GQLajrljdWFdiBlxZO6i HKJrhqvdBCVttD8pNOGw T3a6SyKjJwQ6AEas F0JoevR4GCUomREzEWWd bJIUmN7wlpkva3nqjyfa VqVuNKUmYZa8NFo4MTRo wErtSyKrGIE7YyA4 EVL4mUDjpD2fbZhpgwrx oL1qVdu+JJr8k2tppSOp CJ7heUB6DV60ZE28dBRn c8U3zZS3D7XcDUWu qzopykvtuEH6NRGgLYKf oL83Lr1eyTyvZk3xGAXz FOE6WCLwzNToJ7BhhY0i FfFkVUYcWRLcD7Kd hTOoAPfoA999EXlxKrA8 QTXjunUzL7GdJMWzxYzr XnF7d7Z6Az1VLJ11JD30 GQ65wSHnk2W9hRH2 K7EmWFRxtfsvszzkmUS4 WKKiURYytV80Bf3dlMrn Hu7wWMOkJGC9HHUywADf J4ByyI0qFvObBMNi GSFoZ3SjoKAsHLlvZ956 QTtyOmC0SRDztjFlP9Sf ILOzzXdnHbM7x8R4Bh8P Yp83FN98IB18gDZd n7M8oFJ2K6BxEFGzwubd utwvgMK7VPSzRTAigL65 Bj5roVozXb7cTNNqVDI9 CHJuyDTmG9XvoG6x CvNxVEYfUQAyJ8DrbIKg AYlgL793UTvyHpN6VARk neIaK7AlJWCoaIqfNhL8 a3D2Ee7KSXneqjv3 S9KnYpzcmTS+RR52ROHy AK71tJIhvEDrt2vjoEy6 YaCzLSVnIYQ4aOawBUbh t1PnUJJrN91etTSq c2U (more content not included)... [facility] Coding Summary HTMLBase 64 WhkuhrbpMRx8kKm+PGhl YWQ+PD2CWBJlI06osEUy eC8LT0kRVU5RNWPSMGWG JG6AKA8htAC1MEyfS1Qk biAv YtmboZCsVU35UAh3QKC3 yCtcUUiueI9ilCJzK4x3 YmXsUI20rM13DHoqZVZz CjQ3FeHtbmbjqQHb F3vdDjBojZCiAqs+PHRh YmxlIHdpZHRoPScxMDAl DdFwaAtiQN2tAj8aOVRm LWNvbGxhcHNlOiBj e2glCFKdDFwlCZ6fwElb T1RdtVR8JHJrh5g3Th36 dHI+OEIhOCE6qVbkFJip q951KvAwu3glWDU9 gAFuVDzhTMM4N42yd6E3 UCLgQNXvATL0pQA6dF7f cNnlbfrnK0VldGEsJfY0 NSI9bPLhxQ7mhJov qjkuaH8pAxa+W95NJE6I TLWPFQ3QVvr8T6GlRagb dHI+SE32PMWiGI14rOZw cPOtg9spfTk2PxBa DJJrFQO3vAyhNVnhy8Rw USPeI60alGBjg2S0HKGb aGbsiUWeMxKzzIM9lL5e NUcyrpipf3sjekqz Dnwvo1lgal49uX63U61v TVewJDVhABM6CURvKRVn aSicjz7afW1tWj0+IDxj p5www7kfmGn0FcEh PYAwnhVbwTvqCVF5e8Ub Kp37E9QdiSfng8TqRdj1 hz81xKDph6C5cQQ6ATio THAgrP5aVNswRaB6 MJZuOmAseV72fQMjLSpu Op0leSfofDbtXU8vPKMv gveuNPGrsZ7uLFKevQBu sEjdUP9aVLTasjfz b672LcLbRPA1KMMkjGZc I5JrzF8ySyLjVFUiSOGi W1NkmJJfQOxiT073ISxe PoQ8ERBiefUdY6Aj EQBosNgfLqH5d5G3Zy2X e0BxuflaBKW0BPpfMXF5 SuGwXfVzDxS6Y0KpQly3 BESntRrcMJ4cD0Gz ZLKgyuikoygyhYC8GFRu ZWOykI15iCVmDLrkZx8m a5V9b273QSYbWRDnhN33 Jy2rjRghWFQlrPPD wC4urbqre5frbsaxLpEg DHLzIJb7GMp7QQIboWbk QwXcPPT9GaS1TRG9oMRn bP3vzPjkjkhfzL6j Oyc+J16wbH3nALA7XDY1 rnbqYXBiikMjWS34JT03 N6OeUuizuVRpvYY+PGRp cmFspPjxER7jWbHq q9lhj4LzDSepS5QgTBJd MVwpHby5AOVzGWD0zDG4 bU5yOGOuYDjsg8Y1rHN0 I9OeylTdrs2tw0rf ZFQiDEftW75zgLDhk9J4 AJXuhEN2ABWgcDkdJaLs yO99Jck+OVOxmQzjy2Ze Fsfch1dgw9mihSo4 IjMwJSIgdmFsaWduPSJ0 r6WyNe52M78xAHkgWHPn EXLrDLGkINYtcHthji6o sG9tGv8+PGNvbCB3 xBW4uD8wDJFyYzY0UWen S423YiGzaHHuZebom3jj j4lwhDg9FfXvNMGqooCc pEajMAT3c1FrNw61 X89jKLsyAEOlGJNeCFGi XOQxwOqdgl7gtV0vRp0+ ED9wa7pftm89pW34jRT+ EEQhJKD2aXfsGZke TJZujX1oQDfgHtV3ZUTy GdTmgO37iIAbQNsfPk7u qAiqqDiyBO1dGTZaxhbl r833OrUuq9ufHZAc mLGxOYqcUHJ9B93hy5N0 TOTeWOGnUUL7lTZ1hD9q bGlnbjogbGVmdDsgdmVy lQjmCXvaNHjbS422 IHRvcDsnPlBhdGllbnQg TpBmGLi3S4XbIar0UMUw sHvgAL0atNTiMMieLj3v jZguaYcbSR7fCOIr fjjue757XwVss1ziFPEs aZQwNCkiLNO3Q64oz9C2 UEPcAZBgFYJ6mYI8mY8g bGlnbjogbGVmdDsg muKajJdqMJlhCUuiI548 IHRvcDsnPkJpcnRoIERh dKY3RG70LD30nPAsy5J1 aHO6I9QcAMGoebep rymqiDW7EYZaINBcsS72 Ez1rfFdpPw8jDPWhIDM4 OOHryQAuO6VjjX0yUtLy IAAjLGClO0JipLEe MNlsV965ACxmEbR8TOJq zjDyA4FoITCifUfnCeW6 h0F9Cu6JU6R4GF34BT66 eYScx3J4eFR8S7Ct FDSctmskssvvjQT2AQYp QREwmZ84Mc7bpFekSt2z VKQjREC8EOExiZIeP7El cR5rVrTtJXDjOVIb E2RubSXtLWyoA157ZAux OkN0OEHtdfOlS3LxLFKw eCmkXxI6c1I8Bz9PEGn7 DV58HO02sYXum4E5 fDG1Z5WsTZVathdpzrfu nZY5MJQoVAOicL80Dm8w zIfbPa0aBCUdASB0AWHv sMDpT7YdhS6zEoXp HDHvFHXxA8IgxGUyDMnl T944DIitTqX2JLMsunKo Q1IdOCKpkBeaTtX6e8N5 Ia2DYAJfZS27IBI0 pZN4IZ68GQ90X8EzTjxa dGFibGU+PHRhYmxlIHdp ZHRoPScxMDAlJyBzdHls CZ6yAs5dWOEvSQHz mXdmwHFgFsZww1ntMSEu ZRtxLW2ntWoxE6TmkXQ5 RNSqp1i8Fx65W90jL8Qn dXA+OODhzFR7kON2 zI8oLeEfYsZ4YUyxB225 HeHbvAGnCfukw4cqu8mr cYk8NgU8GAKejcZmfLcb IZV3f6WcXi33U44l IHdpZHRoPSIxNSUiIHZh rSjvjs3joW7lCc0+PGNv yFN7wVY7qD4xBqMnXpS3 URmrN468NtTfuHQj Ziwyh5dht4uwqZk8JsHw LHAlboOpdLfaGIH1d4Jq Cw22G0WpdVbhb1YsNjv4 vr13mQEus5S5sQV4 F9GyKUOybbaaqHRosQxf RY9ySFAtcqntTSQwiZ5h ZGMeI5p5LlIyVyF4IOuk R1MyrzJ5IDPhsNQf MIquPVY4L52tt4R6HPSw BFGkHUZ9fMF3zK3sjQcb bjogbGVmdDsgdmVydGlj JQuoCUchM001UKDz fNacWBQjrM3nKFEohVYe cVxdYZ3rZUYqhlajEgHJ TExJTlMsIEFMWVNTQSBS NPWSQDk3T0MrOja9 QMClmLlkNJ4iqMMqONtk Dy3oiLzleVgzKR9bFCJu oumhGFRgbT7mZTAfpDMr dIvwOY9qYWVxnqir z483SmOpNJZ0NJIhmTJa X4GraY6aIuUaDFDvKMQz J7RkwZKdQPgfW554LXpt KmU3YJOaupGrX4Bn BCKjiUxvYvD8u0H4Jg2u UW6rAn4cQZr7VJ02QV62 hQBuo2N7sJD3E0CeLVRj otuafqsbhSF5TLGm REWavE04pMIfBMbrWz9n p5B9o186FSYxHKPqwD66 Je0uxWqaCMKlsSUZrY6m najgl8ydloonCfUy FUDxBHx6YHy6LQLcpYwf JfFiEDC4CcV3IAE6eSKf kV1njAgwrzbnnE2tOcp+ JhjhIIZufpY7S2Ok Hwb3NWOqmVkbUA1zpCIx GDuoBk3ptHipsKfuEM1o CJHyqqugCKWkwO3mMAMs zIHmoWcxKR3fLJTb vhoui940QkWyJRQ5FDSs zGZdW6SgjP8aElJpJMNg USNsY2NlrDZfBDbrQ141 PRpmLpI5EYWzxgMw A9NjRQPctAsbOwO1s1N7 Ck7TJL0KFAZ1U4VvLbb4 QATuwKyuNY5nbWArYMdv Sy9baXufbDpiJI9x EPDiikigBBEudR0nCZVh wLYvyDtnKR2qCKZdjppj o646MmKnQKN5TUDsmSRi T5YivK1wPzAgCAIa XCRlP9HpgJFuYYdpY337 CKosVcV7OWOlbxEiH3No NMYmiKprIdA9g3M4Ln4J qNYcQ1OhJ3g9L7Ny PjwvdHI+AF92SAPrEY30 jYWmkHOob6aptVp9TiZx YCYzBUM9kDriMDwwe0Ex UOZrM88rdZYqh7F8 IGNvbGxhcHNlOyBlbXB0 wP1rLDlyfgnao0xhovss Kxdog5deos89qA77L79f IHdpZHRoPSIzMCUi AOShfDcxfq7vdA5rJf3+ BTSfwTQ0uKP0zC3lStWx VmL8LVqfG394QlQugVTm Rljnm3vfh1iieNp3 IjIwJSIgdmFsaWduPSJ0 c4AwVd16R21dMCcjMAAs OJDeCBVvOHJsfFpdmz7z cO1tLb8+VO2pl4et dk38xI17xUI+PHRkIHN0 yZhkODeyQSZpmL2pRGcw CiR4UESrHuZncZ51uQBo ZXqzOn3aoPoduUjn KL7pOWFfevept052MjZh w5ikCOOaiHClXBubUIP2 H97il7Q5RXDuENFrWVT2 mLJ1kG1tdZdvrewd bGVmdDsgdmVydGljYWwt IGmdE544GKLncUygKiBr cCXqZ5oiktFOJD3lJtbk dGQ+VMSwOXL6dXmq ROqfHRQeuL2eKBReH8i3 PsQvEcY2OVobH6EpgcG2 TOIncSVhRGDpcTKYlK8s xomiz5zktnzdAxCv DLEhWXz5KRv5SHDfbBev ClIwFRT7PeM5TIC2kGBc lV7mjYscrmxbcI5wItj+ RklOOjwvdGQ+PHRk MNE5fTlcPDvgDQAlbX3c LUDrT5a1PuSnSeQ5ANrh N1FvjtQ6WMQcyGTdLOAe gUKLmE3mawqqf6ib mvvfImRrZGDoULj1UJi1 TOZbpKlsVpUpKPL2IyE5 PDK4hZSkvX4ogGnnfbfg xD3aXjg+TVJOOjwv dGQ+CQAyXUI9jVthATfp DDBvfL0tCPTvV1d0TsJh McL4POsqV1TsayE0GYCs yALoFRZlfBXDtV5l kzjpa5fwkkuvQfFuUZOl ZFx3TCo9XZDzpYcqNdUj CQB3RpY0KWI7zUScgN0w qCokykdciB8lVhr+ PDN8MGV6PR51XM88S5Zh PjwvdGFibGU+PHRhYmxl IHdpZHRoPScxMDAlJyBz zKntHR8oVm9aRSBk LWN (more content not included)... Normal [facility] C Urineon 03-11-2022 C Urine Urine Culture ordered as a result of parameters set on specific urine dip and urine microsopic results. >3 Organisms Consistent with Contamination Recollection suggested. Normal [facility] Comment on above: Performed By: #### 1 [id number], 59345081, 8384158, 7373891499, 97576950, 3558931, 9746671473, 5778671101, 4756706282, 5097553 #### [facility] (DEFAULT) [address] [place] [address] 35295 .Auto Diff 03-09-2022 Auto Bates % 8 % Normal 11-09 [facility] Comment on above: Performed By: #### 1 7415460, 21289083, 9174165, 5087867308, 49777558, 5359375, 4149078748, 8696354502, 4080399406, 1986631 #### [facility] (DEFAULT) [address] [place] [address] Baso Abs# 0.0 x10 Normal 0.0-0.2 [facility] Comment on above: Performed By: #### 1 3861244, 96917962, 2482142, 1871884982, 07000717, 8586340, 2517241204, 7862809833, 8262850376, 7812108 #### [facility] (DEFAULT) [address] [place] [address] 38999 Basophils/100 WBC (Bld) 0.3 % Normal 0.2-2.0 [facility] Comment on above: Performed By: #### 1 2372740, 82495221, 2162820, 8037937088, 55228921, 4397489, 6245101989, 8260220047, 6575331642, 0497407 #### [facility] (DEFAULT) [address] [place] [address] 65717 Eos Abs# 0.1 x10 Normal 0.0-0.4 [facility] Comment on above: Performed By: #### 1 9301059, 40109461, 9180453, 3638903614, 37043209, 0278366, 3746462773, 5198264509, 8356846895, 9917099 #### [facility] (DEFAULT) [address] [place] [address] 22180 Eosinophils/100 WBC (Bld) 1.0 % Normal 0.9-4.0 [facility] Comment on above: Performed By: #### 1 2494683, 33435430, 3956511, 4365784031, 07755130, 1922989, 8721756751, 0103839076, 7139529872, 2544590 #### [facility] (DEFAULT) [address] [place] [address] 64293 Lymph Abs# 2.0 x10 Normal 1.3-2.9 [facility] Comment on above: Performed By: #### 1 1841992, 50777969, 8039027, 4826875012, 36134204, 1488980, 4085726407, 9702530175, 3218897853, 8408336 #### [facility] (DEFAULT) [address] [place] [address] 03078 Lymphocytes/100 WBC (Bld) 35 % Normal 14-48 [facility] Comment on above: Performed By: #### 1 6400100, 53732271, 3266673, 1497479118, 90308036, 0813239, 5020604155, 8634350181, 9118029046, 1031600 #### [facility] (DEFAULT) [address] [place], [place] [address] Bates Abs# 0.5 x10 Normal 0.0-0.8 [facility] Comment on above: Performed By: #### 1 5883023, 81882875, 8198055, 1467635659, 74760996, 3444442, 5499878672, 0941813544, 1788258842, 1953007 #### [facility] (DEFAULT) [address] [place] [address] Neut Abs# 3.2 x10 Normal 1.5-9.2 [facility] Comment on above: Performed By: #### 1 3062988, 57214438, 5840674, 4103286450, 70658940, 1229853, 4522346396, 6866022439, 1900092811, 9204960 #### [facility] (DEFAULT) [address] [place] [address] Neutrophils/100 WBC (Bld) 55 % Normal 44-88 [facility] Comment on above: Performed By: #### 1 9571742, 24484280, 7320250, 2303933899, 57248425, 2390570, 7086724910, 8103511821, 6640392190, 5745746 #### [facility] (DEFAULT) [address] [place] [address] ABORhon 03-09-2022 ABO and Rh group Nom (Bld) Hx Check: Not Found Anti-A: 4+ Anti-B: 0 Anti-D: 4+ DCon: 0 A1: mf+ B: 4+ ABORh Interp: A POS Invalid Interpretation Code [facility] Comment on above: Performed By: #### 1 2679828, 46489899, 8926745, 2498362385, 79165002, 8172058, 3961868070, 7428697371, 2383364887, 3768226 #### [facility] (DEFAULT) [address] [place] [address] 23595 ABORh Retypeon 03-09-2022 ABO and Rh group Nom (Bld) Ordered by Discern. Anti-A: 4+ Anti-B: 0 Anti-D: 4+ DCon: 0 A1: mf+ B: 4+ ABORh Retype: A POS Invalid Interpretation Code [facility] Comment on above: Performed By: #### 1 9479148, 04892642, 5079477, 9149999557, 89676580, 2088602, 3850751077, 8233875632, 8174740350, 3295600 ####[facility] (DEFAULT)[address] [place] [address] CBC w/ Auto Diffon Erythrocyte distribution width (RBC) [Ratio] 13.3 % Normal 11.5-15.0 [facility] Comment on above: Performed By: #### 1 3042881, 87690285, 2503293, 1222570846, 09217905, 7787767, 4696950935, 6671369396, 3948455096, 1990079 #### [facility] (DEFAULT) [address] [place] [address] Hematocrit (Bld) [Volume fraction] 43.5 % High 33.7-40.4 [facility] Comment on above: Performed By: #### 1 3706073, 18712803, 2267786, 3778651802, 44754278, 4705099, 4072597733, 7082292786, 3592388551, 6893929 #### [facility] (DEFAULT) [address] [place] [address] 57870 Hemoglobin (Bld) [Mass/Vol] 14.1 g/dL Normal 11.3-15.9 [facility] Comment on above: Performed By: #### 1 8423652, 07601859, 0353857, 2457819133, 63558483, 6747687, 4571502906, 4327756827, 5365199141, 1589706 #### [facility] (DEFAULT) [address] [place] [address] 52328 Instr WBC 5.7 x10 Invalid Interpretation Code [facility] Comment on above: Performed By: #### 1 7949788, 28123287, 9432222, 7331126025, 30850374, 6620402, 3564044780, 1911303409, 3415937262, 9315564 #### [facility] (DEFAULT) [address] [place] [address] 38631 Man Diff? Auto Normal [facility] Comment on above: Performed By: #### 1 2927323, 78204430, 8680481, 7956023455, 05524442, 5869464, 9638983449, 8331252231, 1554709188, 5986126 #### [facility] (DEFAULT) [address] [place] [address] 63737 MCH (RBC) [Entitic mass] 28 pg Normal 24-34 [facility] Comment on above: Performed By: #### 1 1024596, 33749065, 6486115, 4580415899, 21889077, 3089220, 7716667768, 4276838163, 3136319407, 2315634 #### [facility] (DEFAULT) [address] [place] [address] 99907 MCHC (RBC) [Mass/Vol] 32 g/dL Normal 26-37 [facility] Comment on above: Performed By: #### 1 2625686, 72701397, 7372117, 6243139957, 20381263, 9010158, 5288478920, 8712489187, 9148401419, 7697186 #### [facility] (DEFAULT) [address] [place] [address] 21123 MCV (RBC) [Entitic vol] 86 fL Normal 81-100 [facility] Comment on above: Performed By: #### 1 8618920, 96954734, 1279507, 0448303371, 00883620, 4376970, 8491057179, 6721633486, 8210106787, 9308607 #### [facility] (DEFAULT) [address] [place] [address] 64916 Platelet 324 x10 Normal 138-427 [facility] Comment on above: Performed By: #### 1 3464761, 39829288, 7504425, 4857757018, 03424761, 2654619, 3164955908, 8416430872, 3205050024, 0332340 #### [facility] (DEFAULT) [address] [place] [address] 43213 Platelet mean volume (Bld) [Entitic vol] 9.8 fL Normal 6.3-10.2 [facility] Comment on above: Performed By: #### 1 6095178, 22035729, 2600831, 2262232732, 52513310, 0215959, 0400245872, 6973703758, 9539437185, 1642560 #### [facility] (DEFAULT) [address] [place] [address] 85166 RBC 5.07 x10 Normal 3.70-5.30 [facility] Comment on above: Performed By: #### 1 7990971, 06280579, 1425546, 2809107317, 36530734, 6365684, 2656404750, 7149916894, 1221454661, 1357523 #### [facility] (DEFAULT) [address] [place] [address] 23551 WBC 5.7 x10 Normal 3.5-10.5 [facility] Comment on above: Performed By: #### 1 1555729, 48000328, 4924951, 3523823433, 24545166, 7199073, 3960768324, 8907939137, 4821973842, 3629654 #### [facility] (DEFAULT) [address] [place] [address] 23372 CMP Standardon 03-09-2022 eGFR Non AA >60 Invalid Interpretation Code [facility] Comment on above: Performed By: #### 1 8840818, 81531761, 7961924, 4860283823, 93036016, 5058576, 6005004828, 7541444135, 8472946753, 8239557 #### [facility] (DEFAULT) [address] [place] [address] 37233 eGFR AA >60 Invalid Interpretation Code [facility] Comment on above: Result 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 Kidney Failure is indicated at less than 15 ml/min/1.73m2 Performed By: #### 1 4268234, 93723620, 1271126, 2528010966, 59183230, 9502586, 3312431434, 7946824973, 9211211210, 2726200 #### [facility] (DEFAULT) [address] [place] [address] 12086 Albumin [Mass/Vol] 4.5 g/dL Normal 3.5-5.0 [facility] Comment on above: Performed By: #### 1 9189399, 74653097, 3981825, 7187883241, 04895117, 1296162, 9887416253, 8832965496, 6224831187, 2361672 #### [facility] (DEFAULT) [address] [place] [address] 54241 Albumin/Globulin [Mass ratio] 1.2 {ratio} Low 1.4-2.6 [facility] Comment on above: Performed By: #### 1 8657611, 43774620, 5184131, 6357358625, 71886156, 9180092, 3518527073, 9714232770, 3451354725, 3099537 #### [facility] (DEFAULT) [address] [place] [address] 27328 Alk Phos 52 IU/L Normal 32-91 [facility] Comment on above: Performed By: #### 1 0834933, 92439424, 5180549, 5340296780, 53518908, 0632200, 9728468108, 6499289867, 8660477639, 7119163 #### [facility] (DEFAULT) [address] [place] [address] 56804 ALT [Catalytic activity/Vol] 37.0 U/L Normal 14.0-54.0 [facility] Comment on above: Performed By: #### 1 2210669, 41717196, 2489646, 7519254091, 85863054, 2589956, 7662745452, 1600420398, 5925345145, 2378897 #### [facility] (DEFAULT) [address] [place] [address] 71152 Anion gap [Moles/Vol] 18.0 mmol/L Normal 5.0-19.0 [facility] Comment on above: Performed By: #### 1 9612519, 07775355, 8892099, 4831377297, 35076547, 5623693, 7072565099, 0403828857, 7125648306, 9455727 #### [facility] (DEFAULT) [address] [place] [address] 73185 AST [Catalytic activity/Vol] 29 U/L Normal 15-41 [facility] Comment on above: Performed By: #### 1 9489420, 15458902, 6305348, 6022678106, 56606435, 3684792, 9824716243, 2522795003, 1811843242, 6391874 #### [facility] (DEFAULT) [address] [place] [address] 67846 Bili Total 0.7 mg/dL Normal 0.3-1.2 [facility] Comment on above: Performed By: #### 1 3024658, 86565833, 3967679, 4579243590, 63866508, 6590286, 3674957178, 0074474720, 5241877627, 1740459 #### [facility] (DEFAULT) [address] [place] [address] 47846 Calcium [Mass/Vol] 9.4 mg/dL Normal 8.9-10.3 [facility] Comment on above: Performed By: #### 1 0033896, 66435435, 3578840, 2182396957, 19902288, 7755995, 0732085807, 7276676078, 5614606564, 6562710 #### [facility] (DEFAULT) [address] [place] [address] 61887 Chloride [Moles/Vol] 100 mmol/L Low 101-111 [facility] Comment on above: Performed By: #### 1 6163874, 51225651, 8909680, 6968416912, 44821134, 4345830, 6686362814, 5287095264, 7197571473, 4937779 #### [facility] (DEFAULT) [address] [place] [address] 93363 CO2 [Moles/Vol] 24 mmol/L Normal 21-32 [facility] Comment on above: Performed By: #### 1 1042816, 64653778, 7653068, 3685115294, 51420454, 9504301, 7566378826, 6009208855, 1384480339, 2893245 #### [facility] (DEFAULT) [address] [place] [address] 49704 Creatinine [Mass/Vol] 0.75 mg/dL Normal 0.60-1.30 [facility] Comment on above: Performed By: #### 1 8446979, 79910898, 2195192, 5993425017, 22277158, 5367740, 6188276690, 9950390287, 9879793516, 9437432 #### [facility] (DEFAULT) [address] [place] [address] 63056 Globulin (S) [Mass/Vol] 3.9 g/dL Normal 1.5-4.3 [facility] Comment on above: Performed By: #### 1 9037587, 95787752, 8437814, 6746597005, 72341485, 4172187, 0065984550, 8036679796, 9560315258, 9567968 #### [facility] (DEFAULT) [address] [place] [address] 90906 Glucose [Mass/Vol] 98.0 mg/dL Normal 74.0-118.0 [facility] Comment on above: Performed By: #### 1 9193053, 17739411, 4719104, 7586334612, 92496783, 2326743, 0534752748, 3702312910, 5192212052, 6547293 #### [facility] (DEFAULT) [address] [place] [address] 99964 Osmolality 274 mOsm/L Invalid Interpretation Code [facility] Comment on above: Performed By: #### 1 0503561, 73387889, 7181911, 5752658176, 22545092, 2606497, 1276590636, 2131052062, 5649964744, 5344445 #### [facility] (DEFAULT) [address] [place] [address] 39541 Potassium [Moles/Vol] 3.5 mmol/L Low 3.6-5.1 [facility] Comment on above: Performed By: #### 1 3743096, 23136346, 5866202, 0811544909, 32222844, 8241086, 2879456972, 4183400068, 4334617013, 9608134 #### [facility] (DEFAULT) [address] [place] [address] 04516 Protein [Mass/Vol] 8.4 g/dL High 6.5-8.1 [facility] Comment on above: Performed By: #### 1 0045667, 29338180, 2293103, 0244888156, 57283711, 6220847, 5590084929, 4354744532, 0604176319, 7162509 #### [facility] (DEFAULT) [address] [place] [address] 39145 Sodium [Moles/Vol] 138.0 mmol/L Normal 136.0-144.0 [facility] Comment on above: Performed By: #### 1 6031749, 96685848, 3340450, 1392742585, 18150451, 7056666, 3925910506, 1815629046, 8871427673, 7961983 #### [facility] (DEFAULT) [address] [place] [address] 37573 Urea nitrogen [Mass/Vol] 7 mg/dL Low 8-26 [facility] Comment on above: Performed By: #### 1 3658433, 36379290, 2203587, 4182208117, 57253856, 7828761, 1286330053, 7673365540, 7037105151, 4037894 #### [facility] (DEFAULT) [address] [place] [address] 35432 Urea nitrogen/Creatinine [Mass ratio] 9.0 mg/mg Normal 4.6-16.2 [facility] Comment on above: Performed By: #### 1 [id number], [id number], [id number], [id number] #### [facility] (DEFAULT) [address] [place] [address] ED Clinical Summaryon 2021 ED Clinical Summary [facility] - Emergency Department [address] [place] [address] ED Clinical Summary PERSON INFORMATION Name: DIANE JOYCE Age: 26 Years Sex: FEMALE : 1995 MRN: Acct#: Visit Reason: Vaginal bleeding - < 20 wks ; BLEEDING, Arrival: 03/09/2022 15:56:59 Discharge: 03/09/2022 18:28:00 LOS: 000 02:32 Check In: 03/09/2022 15:56:59 Checkout:03/09/2022 18:28:00 Address: [address] [place] [address] PCP: Provider, None PROVIDER INFORMATION Provider Role [...] or bladder. States that she follows with sorting grapple operator in [place] Dr. Min, contacted his office and they [...] intact, SARINA: -Sclera conjunctiva: Unremarkable. NECK: -Supple ([id number]): non-tender. CARD: -Rate and rhythm: Regular -Edema: [...] the patient recommended close follow-up with her sorting grapple operator and outpatient beta hCG. In the meantime no strenuous ac (more content not included)... Normal [facility] ED Note - Physicianon 2021 ED [...] or bladder. States that she follows with sorting grapple operator in [place] Dr. Min, contacted his office and they [...] intact, SARINA: -Sclera conjunctiva: Unremarkable. NECK: -Supple ([id number]-af-[id number]): non-tender. CARD: -Rate and rhythm: Regular -Edema: [...] the patient recommended close follow-up with her sorting grapple operator and outpatient beta hCG. In the meantime no strenuous activity, sexual activity if having any worsening issues I recommended he return to the emergency department or going directly to sorting grapple operator. Patient indicated she understood was in agreement. [...] AA >60 (more content not included)... Normal [facility] ED Note-Nursingon 03-09-2022 Beta HCG ( test) Ql (U) Patient arrives with c/o vaginal bleeding during . States she took a at home test a week ago and estimates being 5 to 6 weeks along. Patient has some mild cramping yesterday 11/07 at has since went away and light vaginal bleeding today. This is the patients second , 1 live . Normal [facility] ED Patient Summaryon 022 ED Patient Summary [facility] - Emergency Department [address] [place], [place] [id number] PATIENT DISCHARGE INSTRUCTIONS Patient Information Name: DIANE JOYCE Age: 26 Years Date of : 1995 [facility]: [id number] Reason For Visit: Vaginal bleeding - < 20 wks ; BLEEDING, Arrival Time: 03/09/2022 15:56:59 Primary Care Physician: Provider, None Attending Physician: Adrian Rosales MD Comment: Visit Diagnosis: Diagnoses This Visit Elevated blood pressure reading (R03.0) First trimester (Z34.91) Threatened miscarriage in early (O20.0) Vaginal bleeding (N93.9) Vaginal bleeding - < 20 wks ([id number]) Prescription Information: If you have been given a prescription for narcotics, seek immediate medical attention if you have any difficulty breathing or any sudden status changes such as confusion and sleepiness. If you or anyone you know is experiencing suicidal thoughts, mental health, alcohol and/or drug addiction problems; contact the [facility] 21/05 Crisis Hotline -text 4hope to [...] documents With: Address: When: Follow-up with your sorting grapple operator for reevaluation next few days. Within 1 to 2 days Comments: Follow-up with sorting grapple operator for reevaluation next few days for reevaluation and outpatient quantitative hCG. Return immediately for any worsening issues such as increasing abdominal pains, increasing vaginal bleeding, fevers, or any other problems. 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 It is important for you to follow up with a doctor, nurse practitioner, or physician?s health education assistant for ongoing care. If your symptoms [...] so we can reach you if necessary. [facility] Emergency Department has provided you with a complete list of medications post discharge. Please inform your pipe welder/provider of your visit and for further instruction [...] The sec (more content not included)... Normal [facility] Extra Greenon 03-09-2022 Tube Collected Yes Invalid Interpretation Code [facility] Comment on above: Performed By: #### 1 [id number], [id number], [id number], [id number], [id number], [id number] #### [facility] (DEFAULT) [address] [place] [address] PT/PTTon 03-09-2022 INR Coag (PPP) [Relative time] 0.95 {INR} Normal 0.91-1.11 [facility] [facility] Comment on above: Performed By: #### 1 [id number], 13432258, 4771306, [id number], 94359881, 6755377, [id number], [id number], [id number], 1985556 #### [facility] (DEFAULT) [address] [place] [address] PT 10.3 second(s) Normal 9.7-11.8 [facility] Comment on above: Performed By: #### 1 [id number], 54686070, 2880448, [id number], 95033358, 5707752, 4526540943, 5250668451, 1846058254, 3384499 #### [facility] (DEFAULT) [address] [place] [address] PTT 34 second(s) Normal 25-35 [facility] Comment on above: Performed By: #### 1 6675855, 14483748, 1827010, 2557256780, 99132864, 9719029, 1389147617, 3351945754, 0897349871, 6467655 #### [facility] (DEFAULT) [address] [place] [address] RhIG.on 03-09-2022 RhIG. No. Vials RhI RhIG Candidate?: No Date to Give: [id number] RhIG Status: RhIG Ready Normal [facility] Comment on above: Performed By: #### 1 [id number], 89096341, 9336528, 1299859991, 21601831, 1192769, 7279048618, 6970507398, 0859128198, 7638682 ####[facility] (DEFAULT)[address] [place] [address] UA Qairi6hr 03-09-2022 UA Amorph. 1+ [facility] Comment on above: Order Comment: Urina lysis Microscopic order added on by Discern Expert Rules system. Performed By: #### 5 [id number], 9495322, [id number] ####[facility] (DEFAULT)[address] [place] [address] UA Bacteria 2+ [facility] Comment on above: Order Comment: Urina lysis Microscopic order added on by [employer] Expert Rules system. Performed By: #### 5 [id number], 4450667, [id number] ####[facility] (DEFAULT)[address] [place] [address] UA Mucous 3+ [facility] Comment on above: Order Comment: Urina lysis Microscopic order added on by Discern Expert Rules system. Performed By: #### 5 3911865, 5156969, [id number] ####[facility] (DEFAULT)[address] [place] [address] UA RBC >100 [facility] Comment on above: Order Comment: Urina lysis Microscopic order added on by Discern Expert Rules system. Performed By: #### 5 4654795, 4830836, [id number] ####[facility] (DEFAULT)[address] [place] [address] UA Squam Epi Many [facility] Comment on above: Order Comment: Urina lysis Microscopic order added on by Discern Expert Rules system. Result Comment: DMITRY VERGARA RN IN ER. RUN UNINALYSIS AND CULTURE ON THIS SPECIMEN. NO RECOLLECT. Performed By: #### 5 [id number], 3903210, [id number] ####[facility] (DEFAULT)[address] [place] [address] UA WBC 3-5 [facility] Comment on above: Order Comment: Urina lysis Microscopic order added on by Discern Expert Rules system. Performed By: #### 5 [id number], 1894008, [id number] ####[facility] (DEFAULT)[address] [place] [address] UA w Culture if Ind Standard on 03-09-2022 Breakpoint UA [facility] Comment on above: Performed By: #### 1 0168966, 48686286, 1420512, 0603874007, 37233779, 3279558, 6011486956, 3201957824, 8163759037, 9709623 #### [facility] (DEFAULT) [address] [place] [address] Color (U) Yellow [facility] Comment on above: Performed By: #### 1 6320105, 50031588, 2951900, 3564100776, 64869419, 8620859, 7414905552, 6842326453, 1905176574, 0685945 #### [facility] (DEFAULT) [address] [place] [address] Culture? Indicated Invalid Interpretation Code [facility] Comment on above: Result Comment: Resu lt created by rule GL_MAGR_ADD_UA_CULT Result created by rule GL_MAGR_ADD_UA_CULT Result created by rule GL_MAGR_ADD_UA_CULT1 Result created by rule GL_MAGR_ADD_UA_CULT Performed By: #### 1 5273230, 55534769, 7717544, 2368062248, 14204665, 9731487, 6673314868, 8137363682, 3909833885, 1974608 #### [facility] (DEFAULT) [address] [place] [address]85 Glucose (U) [Mass/Vol] Negative [facility] Comment on above: Performed By: #### 1 3891482, 58039192, 2081339, 8853777212, 15449847, 7666306, 0179707565, 1933202547, 2124242632, 0308452 #### [facility] (DEFAULT) [address] [place] [address]22 Ketones Ql (U) 40 [facility] Comment on above: Performed By: #### 1 1364504, 43326668, 8814534, 6703672641, 21024760, 5061659, 3517569043, 9754883853, 3903038050, 4853883 #### [facility] (DEFAULT) [address] [place] [address] 30508 Micro? Indicated Invalid Interpretation Code [facility] Comment on above: Result Comment: Resu lt created by rule GL_MAGR_ADD_UA_MICRO Performed By: #### 1 2825272, 47588637, 7377852, 5761399698, 20359174, 8772497, 9561294639, 0537952332, 2442118560, 7809528 #### [facility] (DEFAULT) [address] [place] [address]159 UA Bilirubin Negative Normal [facility] Comment on above: Performed By: #### 1 0781711, 46768471, 2094359, 3353881502, 67725950, 7201028, 1444278705, 6884620402, 2528894331, 9824653 #### [facility] (DEFAULT) [address] [place] [address]155 UA Blood LARGE Abnormal NEGATIVE [facility] Comment on above: Performed By: #### 1 8149590, 82213561, 6931223, 9367928623, 17193389, 1122412, 7876230912, 0771876891, 1186870671, 6541343 #### [facility] (DEFAULT) [address] [place] [address] UA Clarity SL CLOUDY Abnormal CLEAR [facility] Comment on above: Performed By: #### 1 0978144, 25399941, 7481416, 5406834782, 38342211, 3277845, 1642582769, 4606688737, 4693799003, 4742906 #### [facility] (DEFAULT) [address] [place] [address] 14782 UA Leuk Est TRACE Abnormal NEGATIVE [facility] Comment on above: Performed By: #### 1 3965325, 99367339, 9537735, 6780026787, 51501029, 4832444, 0991335539, 8908758704, 7950142710, 3899277 #### [facility] (DEFAULT) [address] [place] [address] UA Nitrite Negative Normal NEGATIVE [facility] Comment on above: Performed By: #### 1 2200321, 55153708, 7021988, 5409737670, 29388715, 9848002, 0742788961, 7094151231, 5002264517, 6368223 #### [facility] (DEFAULT) [address] [place] [address] 98586 UA pH 6.5 Normal 5-8 [facility] Comment on above: Performed By: #### 1 5956045, 68108910, 4264429, 9538495632, 95777753, 1703632, 5544724024, 4938243289, 4401656586, 4478794 #### [facility] (DEFAULT) [address] [place] [address] UA Protein Negative Normal NEGATIVE [facility] Comment on above: Performed By: #### 1 4219189, 77852816, 1982927, 7735983834, 14330202, 2538504, 8917230043, 1761417872, 5286040396, 7144314 #### [facility] (DEFAULT) [address] [place] [address] UA Spec Grav 1.015 Normal 1.001-1.035 [facility] Comment on above: Performed By: #### 1 4629095, 09206977, 7788762, 2236696577, 61273390, 2090853, 5562250467, 6432645389, 9384071606, 5990491 #### [facility] (DEFAULT) [address] [place] [address] UA Urobilinogen 0.2 mg/dL Normal 0.2-1.0 [facility] Comment on above: Performed By: #### 1 5055412, 77744496, 8658546, 8263079983, 60095723, 6812673, 1326605758, 1352895377, 1782057464, 8127318 #### [facility] (DEFAULT) [address] [place] [address] Urine Source Clean Catch [facility] Comment on above: Performed By: #### 1 6584437, 11814776, 0483781, 8534506897, 30757568, 8071946, 5394887490, 9281185955, 2445073377, 7184037 #### [facility] (DEFAULT) [address] [place] [address] US 1st Trimesteron 03-09-2022 US 1st Trimester [...] Sebastian Guzman 03/09/22 6:10 pm Technologist: PM [facility] US Transvaginalon 03-09-2022 US Transvaginal EXAM: US [...] Guzman 03/09/22 6:10 pm Technologist: PM Normal [facility] hCG Quantitativeon hCG Quantitative 7.1 mIU/mL High 0.0-0.6 [facility] Comment on above: Result Comment: Post -Menopausal Reference Range is: 0.1-11.6 mIU/mL Performed By: #### 1 [id number], 49379256, 2987977, 0067342992, 92993624, 6454518, 7089656933, 8229334990, 7623688211, 3536191 #### [facility] (DEFAULT) [address] [place] [address] Vital Signs Date Time Vital Sign Value Performing Clinician Facility 12-13-2023 15:00-0500 Body mass index (BMI) [Ratio] 46.69 kg/m2 [facility] 12-13-2023 15:00-0500 Body weight 123.38 kg [facility] 12-13-2023 15:00-0500 Diastolic blood pressure 78 mm[Hg] [facility] 12-13-2023 15:00-0500 Systolic blood pressure 128 mm[Hg] [facility] 05-15-2023 18:30-0400 Body height 161.29 cm Linsey Witt Other [facility] Other 05-15-2023 18:30-0400 Body mass index (BMI) [Ratio] 43.41 kg/m2 Linsey Eduar Other [facility] Other 05-15-2023 18:30-0400 Body temperature 99.2 [degF] Linsey Witt Other [facility] Other 05-15-2023 18:30-0400 Body weight 112.95 kg Linsey Eduar Other [facility] Other 05-15-2023 18:30-0400 Respiratory rate 18 /min Linsey Witt Other [facility] Other 05-15-2023 18:30-0400 SaO2% (BldA) [Mass fraction] 99 % Linsey Witt Other [facility] Other 05-09-2023 11:00-0400 Body height 161.29 cm Gissel Santana Other [facility] Other 05-09-2023 11:00-0400 Body mass index (BMI) [Ratio] 43.59 kg/m2 Gissel Santana Other [facility] Other 05-09-2023 11:00-0400 Body weight 113.4 kg Gissel Santana Other [facility] Other 05-09-2023 11:00-0400 Diastolic blood pressure 83 mm[Hg] Gissel Santana Other [facility] Other 05-09-2023 11:00-0400 Systolic blood pressure 119 mm[Hg] Gissel Santana Other [facility] Other 04-12-2023 09:00-0400 Body height 161.29 cm Gissel Santana Other [facility] Other 04-12-2023 09:00-0400 Body mass index (BMI) [Ratio] 43.59 kg/m2 Gissel Santana Other [facility] Other 04-12-2023 09:00-0400 Body weight 113.4 kg Gissel Santana Other [facility] Other 04-12-2023 09:00-0400 Diastolic blood pressure 88 mm[Hg] Gissel Santana Other [facility] Other 04-12-2023 09:00-0400 Systolic blood pressure 129 mm[Hg] Gissel Santana Other [facility] Other 10-11-2022 02:06-0500 Body weight 111.[address] ESTELLA MIN . [facility] Comment on above: Performed By: #### AFPMAT #### [facility] [address] [place] [address] Dr. Alexsander Dickinson Encounters Encounter Date Encounter Type Care Provider Facility Start: 05-19-2024 End: 05-19-2024 ambulatory JULITA NEW Not Available Start: 05-05-2024 End: 05-05-2024 ambulatory ESTELLA MECHELLE Not Available Start: 04-17-2024 End: 04-17-2024 ambulatory ESTELLA MECHELLE Not Available Start: 03-10-2024 End: 03-10-2024 ambulatory JULITA VIRGEN Not Available Start: 02-11-2024 End: 02-11-2024 ambulatory ESTELLA MECHELLE Not Available Start: 01-14-2024 End: 01-14-2024 ambulatory ESTELLA MECHELLE Not Available Start: 12-13-2023 End: 12-13-2023 ambulatory ESTELLA MECHELLE Not Available Start: 12-13-2023 End: 12-13-2023 Office outpatient visit 5 minutes [facility]echelle Nurse [facility] Comment on above: GA: 9w0d Start: 11-06-2023 End: 11-06-2023 ambulatory Gissel Santana Other [facility] Other Start: 11-06-2023 Encounter by donald Santana [facility] Start: 05-22-2023 End: 05-22-2023 ambulatory Olive Howard Other [facility] Other Start: 05-22-2023 Telephone encounter Olive Howard [facility] Start: 05-15-2023 End: 05-15-2023 ambulatory Linsey Witt Facility:[facility] Start: 05-15-2023 End: 05-15-2023 Departed Referred 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 Linsey Witt Work Phone: [facility] [place] Work Phone: Start: 05-15-2023 End: 05-15-2023 ambulatory BLACK ASH BURNER OPERATOR Linsey Witt Work Phone: [facility] Work Phone: Start: 05-15-2023 Office outpatient vi sit 25 minutes Linsey Witt [facility] Start: 05-09-2023 End: 05-09-2023 ambulatory Gissel Santana Other [facility] Other Start: 05-09-2023 Office outpatient vi sit 15 minutes Gissel Santana [facility] Start: 04-12-2023 End: 04-12-2023 ambulatory Gissel Santana Other [facility] Other Start: 04-12-2023 Encounter for genera l adult medical examination without abnormal findings Gissel Santaan [facility] Start: 04-12-2023 Periodic preventive med est patient 18-39 yrs Gissel Santana [facility] Start: 02-15-[address] ESTELLA MIN [...] encounter procedure 01/14/2024 8:30 AM EDT Routine [facility] [address] [place] [id number] Estella Min, DO [address] [place] [address] [facility] Start: 12-13-2023 End: 12-13-2024 ABO/Rh ABO/Rh Lab Routine Missed menses Expected: 12/13/2023 (Approximate), Expires: 12/13/2024 [facility] Comment on above: Expected: 12/13/2023 (Approximate), Expires: 12/13/2024 Start: 12-13-2023 End: 12-13-2024 Blood type and Indirect antibody screen panel - Blood Type and screen Lab Routine Missed menses Expected: 12/13/2023 (Approximate), Expires: 12/13/2024 [facility] Work Phone: Comment on above: Expected: 12/13/2023 (Approximate), Expires: 12/13/2024 Start: 12-13-2023 End: 12-13-2024 Thyroid panel with tsh Thyroid panel with tsh Lab Routine Missed menses Expected: 12/13/2023 (Approximate), Expires: 12/13/2024 [facility] Comment on above: Expected: 12/13/2023 (Approximate), Expires: 12/13/2024 Start: 12-13-2023 End: 12-13-2024 US Pelvis transvaginal US OB transvaginal Imaging Routine Missed menses Expected: 12/13/2023 (Approximate), Expires: 12/13/2024 [facility] Comment on above: Expected: 12/13/2023 (Approximate), Expires: 12/13/2024 Start: 05-15-2023 Throat culture Throat Culture [facility] Bacteria identified in Urine by Culture Urine culture Microbiology Routine Missed menses Ordered: 12/13/2023 [facility] Comment on above: Ordered: 12/13/2023 CBC W Auto Different ial panel - Blood CBC and differential Lab Routine Missed menses Ordered: 12/13/2023 [facility] Comment on above: Ordered: 12/13/2023 Hemoglobin A1c/Hemoglobin.total in Blood Hemoglobin A1c Lab Routine Missed menses Ordered: 12/13/2023 [facility] Comment on above: Ordered: 12/13/2023 Hepatitis B virus surface Ag [Presence] in Serum or Plasma by Immunoassay Hepatitis B surface antigen Lab Routine Missed menses Ordered: 12/13/2023 [facility] Comment on above: Ordered: 12/13/2023 Hepatitis C virus Ab [Presence] in Serum or Plasma by Immunoassay Hepatitis C antibody Lab Routine Missed menses Ordered: 12/13/2023 [facility] Comment on above: Ordered: 12/13/2023 HIV-1/HIV-2 antigen/antibody combination immunoassay HIV-1 and HIV-2 antibodies Lab Routine Missed menses Ordered: 12/13/2023 [facility] Comment on above: Ordered: 12/13/2023 Reagin Ab [Presence] in Serum by RPR RPR Lab Routine Missed menses Ordered: 12/13/2023 [facility] Comment on above: Ordered: 12/13/2023 Rubella antibody, IgG Rubella an tibody, IgG Lab Routine Missed menses Ordered: 12/13/2023 [facility] Comment on above: Ordered: 12/13/2023 Payers Date Payer Category Payer Unknown BCBS BCBS [id number] [id number] 2020-Present [phone] [address] [place] [address] [id number]. [id number] 1994 Unknown [id number] 2.16.840.1.882182.3.579.2.593 1994 Unknown [id number] 2.16.840.1.005614.3.579.2.593 1994 Unknown [id number] 2.16.840.1.616354.3.579.2.593 1994 Unknown [id number] 2.16.840.1.801975.3.579.2.593 1994 Unknown [id number] 2.16.840.1.645638.3.579.2.593 1994 Unknown [id number] 2.16.840.1.935306.3.579.2.593 1994 Unknown [id number] 2.16.840.1.320832.3.579.2.593 1994 Unknown [id number] 2.16.840.1.450250.3.579.2.593 1994 Unknown [id number] 2.16.840.1.445160.3.579.2.593 1994 Unknown [id number] 2.16.840.1.606303.3.579.2.593 1994 Unknown [id number] 2.16.840.1.909969.3.579.2.593 1994 Unknown [id number] 2.16.840.1.719979.3.579.2.593 1994 Unknown [id number] 2.16.840.1.221496.3.579.2.593 1994 Unknown [id number] 2.16.840.1.273028.3.579.2.593 1994 Unknown [id number] 2.16.840.1.245032.3.579.2.593 1994 Unknown [id number] 2.16.840.1.984973.3.579.2.593 1994 Unknown [id number] 2.16.840.1.756936.3.579.2.593 1994 Unknown [id number] 2.16.840.1.118511.3.579.2.593 1994 Unknown [id number] 2.16.840.1.705396.3.579.2.593 1994 Unknown [id number] 2.16.840.1.180724.3.579.2.593 1994 Unknown [id number] 2.16.840.1.681575.3.579.2.593 1994 Unknown [id number] 2.16.840.1.277291.3.579.2.593 1994 Unknown [id number] 2.16.840.1.598790.3.579.2.593 1994 Unknown [id number] 2.16.840.1.017387.3.579.2.593 1994 Unknown [id number] 2.16.840.1.377478.3.579.2.1259 1994 Unknown [id number] 2.16.840.1.848019.3.579.2.1259 1994 Unknown [id number] 2.16.840.1.457415.3.579.2.1259 1994 Unknown [id number] 2.16.840.1.157568.3.579.2.1259 1994 Unknown [id number] 2.16.840.1.208527.3.579.2.1259 1994 Unknown [id number] 2.16.840.1.295989.3.579.2.1259 1994 Unknown [id number] 2.16.840.1.644553.3.579.2.1259 1959 Self-pay 1959 Unknown [id number] Unknown [id number] 2.16.840.1.281904.3.579.2.593 Unknown [id number] 2.16.840.1.745309.3.579.2.531 Social History Date Type Detail Facility Unknown if ever smoked [facility] [employer] Other Start: 03-12-2023 Sex Assigned At [facility] [employer] Other Start: 1994 Sex Assigned At Female [facility] Start: 03-12-2023 Tobacco smoking status NHIS [...] or undercooked meat, and stay away from [facility]. Patient has also been advised to not [...] Meenakshi Rosenthal MA documented in this encounter [facility] 05-15-2023 Evaluation note Encounter Date Diagnosis [...] understanding and is agreeable to treatment plan. [facility] Other 07-12-2023 Evaluation note* Encounter Date Diagnosis Assessment Notes Treatment Notes Treatment Clinical Notes Apr, Anxiety disorder, unspecified (ICD-10 - F41.9) Pt states that she, and her , agree that she is doing better on the medication. Continues to have stress, but is dealing more appropriately. Would like to continue this med and this dose. f/u6 months, sooner if needed. [facility] Other 06-15-2023 Evaluation note* Encounter Date Diagnosis [...] help for overwhelm. followup in 1 month [facility] Other 05-12-2022 NoteEducation Materials Cardiovascular Hypertension, Adult [...] without skin, beans, e (more content not included)...[facility] noteNo assessment information availableSelect [facility] Work Phone: Evaluation noteNo InformationNortPenn Highlands Healthcare [employer] Other Evaluation note* Diagnosis Missed menses documented in this encounter [facility] HealthcareHistory general Narrative - Reported* Type Description Date Surgical History C-sect 2019 Surgical History C-sect 2022 [employer] Other History general Narrative - Reported* Type Description Date Medical History Anxiety disorder, unspecified Surgical History C-sect 2019 Surgical History C-sect 2022 Hospitalization History SEE SURGICAL [facility] Other History general Narrative - Reported* Type Description Date Medical History Anxiety disorder, unspecified Medical History Gestational diabetes Surgical History C-sect 2019 Surgical History C-sect 2022 Hospitalization History SEE SURGICAL [facility] Other Summary Purpose Family History No Family History Records FoundNo Family History Records FoundNo Family History Records FoundNo Family History Records Found Advance Directives No Advanced Directives Records FoundNo Advanced Directives Records FoundNo Advanced Directives Records FoundNo Advanced Directives Records Found Additional Source Comments INFORMATION SOURCE (unrecogn ized section and content) DATE CREATED AUTHOR 03/18/2022 [facility] DATE CREATED AUTHOR AUTHOR'S ORGANIZ ATION [facility] DATE CREATED AUTHOR AUTHOR'S ORGANIZ ATION 05/24/2023 [facility] DATE CREATED AUTHOR AUTHOR'S ORGANIZ ATION 05/21/2024 [facility] EPIC REASON FOR VISIT (unrecogniz ed section and content) Reason Comments Amenorrhea Care Teams (unrecognized sec tion and content) Team Status: Inactive Member Role Status Dates Linsey Witt APRN Attending Provider Active Substance Abuse Technician Relationship Specialty Start Date End Date Gissel Santana MD [address] [place] [address] PCP - General Family Medicine [...] BE BASED ON THE PRIMARY CLINICAL RECORDS. [facility]. provides no warranty or guarantee of the accuracy or completeness of information in this document.
[2024-05-24 11:05] VITALS: BP 137/69; PULSE 91
== END 2024-05-24 12:41 | disposition home or self-care (01) ==
LOC: FBCO 08:48 → FBC 10:58
PROVIDERS: Visit Provider Obstetrics & Gynecology
DX: O24.419 Gestational diabetes mellitus in pregnancy, unspecified control (principal)
CPT/HCPCS: 59025

== ENCOUNTER 2024-05-28 07:01 | Outpatient (OUT) | payer BC, SELFPAY ==
--- OUTSIDE RECORDS SUMMARY | 2024-05-28 07:04 | XMS_ITS | CCD ---
Author Organization [facility] Care Team Providers Care Company Driver Name Role Phone MECHELLE ., DR SORIA [...] SANTANA, DR GISSEL Teresa Primary Care Unavailable MECEHLLE ., DR SORIA Attending Unavailable MECHELLE ., DR SORIA Consulting Unavailable MECHELLE ., DR SORIA Admitting Unavailable MECHELLE ., DR SORIA Attending Unavailable SANTANA, DR GISSEL Teresa Primary Care Unavailable MECHELLE ., DR SORIA Consulting Unavailable MECHELLE ., DR SORIA Admitting Unavailable SANTANA, DR GISSEL Teresa Primary Care Unavailable KARASIK ., DR MONTENEGRO Consulting Unavailabl e KARASIK ., DR MONTENEGOR Admitting Unavailabl e KARASIK ., DR MONTENEGRO [...] Unavailable MECHELLE ., DR SORIA Admitting Unavailable Venus, Sebastian Consulting Unavailable SANTANA, DR GISSEL Teresa [...] Interpretation and review of laboratory results Abnormal [facility] Healthca re Preg Test, Ur Positive [facility] Urinalysis macro (dipstick) panel (U)on 12-13-2023 Bilirubin, UA Negative Negative - 4(70) +++ mg/dL [facility] Blood, UA Negative Negative - 50 Sal/mcL [facility] Clarity, UA Clear [facility] re Color, UA Yellow [facility] Healthcar e Glucose, UA Negative Negative - 1999(110) ++++ mg/dL [facility] Interpretation and review of laboratory results Abnormal [facility] re Ketones, UA Positive Negative - 160(16) ++++ mg/dL [facility] Leukocytes, UA Negative Negative - 500+++ Lizzy/mcL [facility] Nitrite, UA Negative Negative - Positive [facility] pH, UA 7.0 5 - 9 [facility] Healthcar e Protein, UA Positive Negative - 1999(20) ++++ mg/dL [facility] Spec Grav, UA 1.030 1 - 1.03 [facility] Urobilinogen, UA 0.2 0.2 - 12 mg/dL [facility] Quick Strepon 05-15-2023 S. pyogenes Org specific cx Ql (Throat) Negative [employer] Other Quick Strep [employer] Other Throat Cultureon 05-15-2023 Throat culture Heavy Normal Respiratory John 2 Days PERFORMED BY: [address] [place] [id number] [place] [address] PATHOLOGIST ELECTROLYTIC ETCHER ARACELI HAYWOOD M.D. Normal [facility] Comment on above: Performed By: #### C SC #### [facility] [address] GROUP B STREP CULTUREon 01-27 S. [...] F Tetracycline <=0.25 S F Normal [facility] Comment on above: Performed By: #### A FPMAT #### [facility] [address] [place] [address] Dr. Alexsander Dickinson CBC AUTO DIFFon 02-02-2023 BASO # 0.0 103/ul Normal 0.0-0.1 [facility] Comment on above: Performed By: #### C BC #### [facility] [address] [place] [address] Dr. Alexsander Dickinson Basophils/100 WBC (Bld) 0.2 % Normal 0.2-2.0 [facility] Comment on above: Performed By: #### C BC #### [facility] [address] [place] [address] Dr. Alexsander Dickinson EO # 0.0 103/ul Normal 0.0-0.7 [facility] Comment on above: Performed By: #### C BC #### [facility] [address] [place] [address] Dr. Alexsander Dickinson Eosinophils/100 WBC (Bld) 0.0 % Critically low 0.9-7.0 [facility] Comment on above: Performed By: #### C BC #### [facility] [address] [place] [address] Dr. Alexsander Dickinson Erythrocyte distribution width (RBC) [Ratio] 12.5 % Normal 11.0-15.0 [facility] Comment on above: Performed By: #### C BC #### [facility] [address] [address] [address] Alexsander Dickinson Hematocrit (Bld) [Volume fraction] 32.9 % Critically low 36.0-48.0 [facility] Comment on above: Performed By: #### C BC #### [facility] [address] [place] [address] Dr. Alexsander Dickinson Hemoglobin (Bld) [Mass/Vol] 10.7 g/dL Critically low 12.0-16.0 [facility] Comment on above: Performed By: #### C BC #### [facility] [address] [place] [address] Dr. Alexsander Dickinson IG # 0.12 10e3/ul Critically high 0.00-0.03 [facility] Comment on above: Performed By: #### C BC #### [facility] [address] [place] [address] Dr. Alexsander Dickinson IG % 0.7 % Critically high 0.0-0.5 [facility] Comment on above: Performed By: #### C BC #### [facility] [address] [place] [address] Dr. Alexsander Dickinson LYMPH # 1.1 103/ul Critically low 1.2-3.8 [facility] Comment on above: Performed By: #### C BC #### [facility] [address] [place] [address] Dr. Alexsander Dickinson Lymphocytes/100 WBC (Bld) 6.4 % Critically low 20.5-60.0 [facility] Comment on above: Performed By: #### C BC #### [facility] [address] [place] [address] Dr. Alexsander Dickinson MANUAL DIFF REQ NO Normal [facility] Comment on above: Performed By: #### C BC #### [facility] [address] [place] [address] Dr. Alexsander Dickinson MCH (RBC) [Entitic mass] 26.1 pg Critically low 26.7-34.0 [facility] Comment on above: Performed By: #### C BC #### [facility] [address] [address] [address] Alexsander Dickinson MCHC (RBC) [Mass/Vol] 32.5 g/dL Normal 29.9-35.2 [facility] Comment on above: Performed By: #### C BC #### [facility] [address] [address] [address] Alexsander Dickinson MCV (RBC) [Entitic vol] 80.2 fL Critically low 81.0-99.0 [facility] Comment on above: Performed By: #### C BC #### [facility] [address] [address] [address] Alexsander Dickinson MONO # 0.4 103/ul Normal 0.3-0.8 [facility] Comment on above: Performed By: #### C BC #### [facility] [address] [place] [address] Dr. Alexsander Dickinson Monocytes/100 WBC (Bld) 2.1 % Normal 1.7-12.0 [facility] Comment on above: Performed By: #### C BC #### [facility] [address] [place] [address] Dr. Alexsander Dickinson NEUT # 15.5 103/ul Critically high 1.4-6.5 [facility] Comment on above: Performed By: #### C BC #### [facility] [address] [place] [address] Dr. Alexsander Dickinson Neutrophils/100 WBC (Bld) 90.6 % Critically high 43.0-75.0 [facility] Comment on above: Performed By: #### C BC #### [facility] [address] [place] [address] Dr. Alexsander Dickinson Platelet mean volume (Bld) [Entitic vol] 10.7 fL Normal 9.5-13.5 [facility] Comment on above: Performed By: #### C BC #### [facility] [address] [place] [address] Dr. Alexsander Dickinson PLT 310 103/ul Normal 150-450 [facility] Comment on above: Performed By: #### C BC #### [facility] [address] [address] [address] Alexsander Dickinson RBC 4.10 106/ul Critically low 4.20-5.40 [facility] Comment on above: Performed By: #### C BC #### [facility] [address] [address] [address] Alexsander Dickinson WBC 17.1 103/ul Critically high 4.0-11.0 [facility] Comment on above: Performed By: #### C BC #### [facility] [address] [place] [address] Dr. Alexsander Dickinson CBC AUTO DIFFon 02-01-2023 BASO # 0.0 103/ul Normal 0.0-0.1 [facility] Comment on above: Performed By: #### A 1C #### [facility] [address] [place] [address] Dr. Alexsander Dickinson Basophils/100 WBC (Bld) 0.2 % Normal 0.2-2.0 [facility] Comment on above: Performed By: #### A 1C #### [facility] [address] [place] [address] Dr. Alexsander Dickinson EO # 0.0 103/ul Normal 0.0-0.7 [facility] Comment on above: Performed By: #### A 1C #### [facility] [address] [place] [address] Dr. Alexsander Dickinson Eosinophils/100 WBC (Bld) 0.4 % Critically low 0.9-7.0 [facility] Comment on above: Performed By: #### A 1C #### [facility] [address] [place] [address] Dr. Alexsander Dickinson Erythrocyte distribution width (RBC) [Ratio] 12.9 % Normal 11.0-15.0 [facility] Comment on above: Performed By: #### A 1C #### [facility] [address] [place] [address] Dr. Alexsander Dickinson Hematocrit (Bld) [Volume fraction] 34.2 % Critically low 36.0-48.0 [facility] Comment on above: Performed By: #### A 1C #### [facility] [address] [address] [address] Alexsander Dickinson Hemoglobin (Bld) [Mass/Vol] 11.4 g/dL Critically low 12.0-16.0 [facility] Comment on above: Performed By: #### A 1C #### [facility] [address] [address] [address] Alexsander Dickinson IG # 0.04 10e3/ul Critically high 0.00-0.03 [facility] Comment on above: Performed By: #### A 1C #### [facility] [address] [place] [address] Dr. Alexsander Dickinson IG % 0.5 % Normal 0.0-0.5 [facility] Comment on above: Performed By: #### A 1C #### [facility] [address] [place] [address] Dr. Alexsander Dickinson LYMPH # 2.1 103/ul Normal 1.2-3.8 [facility] Comment on above: Performed By: #### A 1C #### [facility] [address] [place] [address] Dr. Alexsander Dickinson Lymphocytes/100 WBC (Bld) 23.9 % Normal 20.5-60.0 [facility] Comment on above: Performed By: #### A 1C #### [facility] [address] [place] [address] Dr. Alexsander Dickinson MANUAL DIFF REQ NO Normal [facility] Comment on above: Performed By: #### A 1C #### [facility] [address] [place] [address] Dr. Alexsander Dickinson MCH (RBC) [Entitic mass] 27.0 pg Normal 26.7-34.0 [facility] Comment on above: Performed By: #### A 1C #### [facility] [address] [place] [address] Dr. Alexsander Dickinson MCHC (RBC) [Mass/Vol] 33.3 g/dL Normal 29.9-35.2 [facility] Comment on above: Performed By: #### A 1C #### [facility] [address] [place] [address] Dr. Alexsander Dickinson MCV (RBC) [Entitic vol] 81.0 fL Normal 81.0-99.0 [facility] Comment on above: Performed By: #### A 1C #### [facility] [address] [place] [address] Dr. Alexsander Dickinson MONO # 0.5 103/ul Normal 0.3-0.8 [facility] Comment on above: Performed By: #### A 1C #### [facility] [address] [place] [address] Dr. Alexsander Dickinson Monocytes/100 WBC (Bld) 6.0 % Normal 1.7-12.0 [facility] Comment on above: Performed By: #### A 1C #### [facility] [address] [place] [address] Dr. Alexsander Dickinson NEUT # 5.9 103/ul Normal 1.4-6.5 [facility] Comment on above: Performed By: #### A 1C #### [facility] [address] [place] [address] Dr. Alexsander Dickinson Neutrophils/100 WBC (Bld) 69.0 % Normal 43.0-75.0 [facility] Comment on above: Performed By: #### A 1C #### [facility] [address] [place] [address] Dr. Alexsander Dickinson Platelet mean volume (Bld) [Entitic vol] 10.5 fL Normal 9.5-13.5 [facility] Comment on above: Performed By: #### A 1C #### [facility] [address] [place] [address] Dr. Alexsander Dickinson PLT 275 103/ul Normal 150-450 [facility] Comment on above: Performed By: #### A 1C #### [facility] [address] [place] [address] Dr. Alexsander Dickinson RBC 4.22 106/ul Normal 4.20-5.40 [facility] Comment on above: Performed By: #### A 1C #### [facility] [address] [place] [address] Dr. Alexsander Dickinson WBC 8.6 103/ul Normal 4.0-11.0 [facility] Comment on above: Performed By: #### A 1C #### [facility] [address] [place] [address] Dr. Alexsander Dickinson LDHon 02-01-2023 LDH 124 U/L Normal 81-234 [facility] Comment on above: Performed By: #### C MP, LDH, URIC #### [facility] [address] [place] [address] Dr. Alexsander Dickinson POINT OF CARE GLUCOSEon Glucose [Mass/Vol] 98 mg/dL Normal 74-106 [facility] Comment on above: Performed By: #### A 1C #### [facility] [address] [place] [address] Dr. Alexsander Dickinson PROF 14(COMP METB)on 023 Albumin [Mass/Vol] 2.5 g/dL Critically low 3.4-5.0 [facility] Comment on above: Performed By: #### C MP, LDH, URIC #### [facility] [address] [place] [address] Dr. Alexsander Dickinson Albumin/Globulin [Mass ratio] 0.6 {ratio} Normal [facility] Comment on above: Performed By: #### C MP, LDH, URIC #### [facility] [address] [place] [address] Dr. Alexsander Dickinson ALP [Catalytic activity/Vol] 138 U/L Critically high 46-116 [facility] Comment on above: Performed By: #### C MP, LDH, URIC #### [facility] [address] [place] [address] Dr. Alexsander Dickinson ALT [Catalytic activity/Vol] 15 U/L Normal 14-59 [facility] Comment on above: Performed By: #### C MP, LDH, URIC #### [facility] [address] [place] [address] Dr. Alexsander Dickinson Anion gap [Moles/Vol] 14.5 mmol/L Normal [facility] Comment on above: Performed By: #### C MP, LDH, URIC #### [facility] [address] [address] [address] Alexsander Dickinson AST [Catalytic activity/Vol] 8 U/L Critically low 15-37 [facility] Comment on above: Performed By: #### C MP, LDH, URIC #### [facility] [address] [address] [address] Alexsander Dickinson Bilirubin [Mass/Vol] 0.2 mg/dL Normal 0.2-1.0 [facility] Comment on above: Performed By: #### C MP, LDH, URIC #### [facility] [address] [address] [address] Alexsander Dickinson Calcium [Mass/Vol] 8.6 mg/dL Normal 8.5-10.1 [facility] Comment on above: Performed By: #### C MP, LDH, URIC #### [facility] [address] [place] [address] Dr. Alexsander Dickinson Chloride [Moles/Vol] 103 mmol/L Normal 98-107 [facility] Comment on above: Performed By: #### C MP, LDH, URIC #### [facility] [address] [address] [address] Alexsander Dickinson CO2 [Moles/Vol] 23.7 mmol/L Normal 21.0-32.0 [facility] Comment on above: Performed By: #### C MP, LDH, URIC #### [facility] [address] [address] [address] Alexsander Dickinson Creatinine [Mass/Vol] 0.61 mg/dL Normal 0.55-1.02 [facility] Comment on above: Performed By: #### C MP, LDH, URIC #### [facility] [address] [address] [address] Alexsander Dickinson EGFR-AF THAI >60 Normal >=60 [facility] Comment on above: Performed By: #### C MP, LDH, URIC #### [facility] [address] [place] [address] Dr. Alexsander Dickinson EGFR-NON AF THAI >60 Normal >=60 [facility] Comment on above: Performed By: #### C MP, LDH, URIC #### [facility] [address] [address] [address] Alexsander Dickinson Globulin (S) [Mass/Vol] 4.1 g/dL Normal [facility] Comment on above: Performed By: #### C MP, LDH, URIC #### [facility] [address] [address] [address] Alexsander Dickinson Glucose [Mass/Vol] 123 mg/dL Critically high 74-106 [facility] Comment on above: Performed By: #### C MP, LDH, URIC #### [facility] [address] [place] [address] Dr. Alexsander Dickinson Potassium [Moles/Vol] 4.2 mmol/L Normal 3.5-5.1 [facility] Comment on above: Performed By: #### C MP, LDH, URIC #### [facility] [address] [place] [address] Dr. Alexsander Dickinson Protein [Mass/Vol] 6.6 g/dL Normal 6.4-8.2 [facility] Comment on above: Performed By: #### C MP, LDH, URIC #### [facility] [address] [place] [address] Dr. Alexsander Dickinson Sodium [Moles/Vol] 137 mmol/L Normal 136-145 [facility] Comment on above: Performed By: #### C MP, LDH, URIC #### [facility] [address] [place] [address] Dr. Alexsander Dickinson Urea nitrogen [Mass/Vol] 5.0 mg/dL Critically low 7.0-18.0 [facility] Comment on above: Performed By: #### C MP, LDH, URIC #### [facility] [address] [place] [address] Dr. Alexsander Dickinson Urea nitrogen/Creatinine [Mass ratio] 8.2 mg/mg Normal [facility] Comment on above: Performed By: #### C MP, LDH, URIC #### [facility] [address] [place] [address] Dr. Alexsander Dickinson PROTIMEon 02-01-2023 INR Coag (PPP) [Relative time] {INR} Normal [facility] Comment on above: Performed By: #### H BSANS #### [facility] [address] [place] [address] Dr. Alexsander Dickinson INR GUIDELINES SEE BELOW Normal [facility] Comment on above: Result Comment: CAROLEE RED INR: 2.0 - 3.0 CONDITIONS NOT LISTED BELOW 2.5 - 3.5 FOR PROSTHETIC HEART VALVE REPLACEMENT 2.5 - 3.5 RECURRENT THROMBOSIS Performed By: #### H BSANS #### [facility] [address] [place] [address] Dr. Alexsander Dickinson PT Coag (PPP) [Time] 9.2 s Normal 9.0-11.6 [facility] Comment on above: Performed By: #### H BSANS #### [facility] [address] [place] [address] Dr. Alexsander Dickinson PTTon 02-01-2023 aPTT Coag (Bld) [Time] 25.9 s Normal 22.3-36.2 [facility] Comment on above: Performed By: #### H BSANS #### [facility] [address] [place] [address] Dr. Alexsander Dickinson TYPE AND SCREENon 02-01-2023 TYPE AND SCREEN Negative Normal [facility] Comment on above: Performed By: #### A FPMAT #### [facility] [address] [place] [address] Dr. Alexsander Dickinson URIC ACID SERUMon 02-01-2023 Urate [Mass/Vol] 5.5 mg/dL Normal 2.6-6.0 [facility] Comment on above: Performed By: #### C MP, LDH, URIC #### [facility] [address] [place] [address] Dr. Alexsander Dickinson US PREG BIOPHY W [...] by: DEE GALLEGOS Date: 2023-02-01 15:04 Normal [facility] US PREG BIOPHY W NON STRESSo [...] by: SEBASTIAN HENRY Date: 2023-01-25 15:18 Normal [facility] US PREG BIOPHY W NON STRESSo [...] by: DEE GALLEGOS Date: 2023-01-19 06:16 Normal [facility] US PREG BIOPHY W NON STRESSo [...] DEE GALLEGOS Date: 2023-01-11 15:38 Normal [facility] US PREG GROWTHon 01-11-2023 US PREG [...] DEE GALLEGOS Date: 2023-01-11 16:42 Normal [facility] GTT 3 HR PREGon 12-01-2022 Glucose [Mass/Vol] 104 mg/dL Normal 74-106 [facility] Comment on above: Performed By: #### A 1C #### [facility] [address] [address] [address] Alexsander Dickinson Glucose [Mass/Vol] 182 mg/dL Normal [facility] Comment on above: Performed By: #### A 1C #### [facility] [address] [address] [address] Alexsander Dickinson Glucose [Mass/Vol] 114 mg/dL Normal [facility] Comment on above: Performed By: #### A 1C #### [facility] [address] [place] [address] Dr. Alexsander Dickinson Glucose [Mass/Vol] 73 mg/dL Normal [facility] Comment on above: Performed By: #### A 1C #### [facility] [address] [address] [address] Alexsander Dickinson PAP ACOG PANEL 2: 21 to 29on 11-18-2022 . . Normal [facility] Comment on above: Performed By: #### A 1C #### [facility] [address] [place] [address] Dr. Alexsander Dickinson Age Gdln ACOG Testing 21-29 [facility] Comment on above: Performed By: #### A 1C #### [facility] [address] [place] [address] Dr. Alexsander Dickinson DIAGNOSIS: Comment [facility] Comment on above: Result Comment: NEGA TIVE FOR INTRAEPITHELIAL LESION OR MALIGNANCY. Performed By: #### A 1C #### [facility] [address] [place] [address] Dr. Alexsander Dickinson Methodology: Comment [facility] Comment on above: Result Comment: This liquid based ThinPrep(R) pap test was screened with the use of an image guided system. Performed By: #### A 1C #### [facility] [address] [place] [address] Dr. Alexsander Dickinson Note: Comment [facility] Comment on above: Result Comment: The Pap smear is a screening test designed to aid in the detection of premalignant and malignant conditions of the uterine cervix. It is not a diagnostic procedure and should not be used as the sole means of detecting cervical cancer. Both false-positive and false-negative reports do occur. . Performed By: #### A 1C #### [facility] [address] [place] [address] Dr. Alexsander Dickinson Performed by: Comment Normal [facility] Comment on above: Result Comment: Cici Clarke, Regional Sales Representative (ASCP) Performed By: #### A 1C #### [facility] [address] [place] [address] Dr. Alexsander Dickinson Reflex Criteria: Comment [facility] Comment on above: Result Comment: The HPV DNA reflex criteria were not met with this specimen result therefore, no HPV testing was performed. . Performed By: #### A 1C #### [facility] [address] [place] [address] Dr. Alexsander Dickinson Specimen adequacy: Comment Normal [facility] Comment on above: Result Comment: Sati sfactory for evaluation. No endocervical component is identified. Performed By: #### A 1C #### [facility] [address] [place] [address] Dr. Alexsander Dickinson CHLAMYDIA/GONOCOCCUS ZUNILDA (SW AB/URINE/PAPon 11-17-2022 Chlamydia trachomatis, ZUNILDA Negative Normal Negative [facility] Comment on above: Performed By: #### A 1C #### [facility] [address] [place] [address] Dr. Alesxander Dickinson Neisseria gonorrhoeae, ZUNILDA Negative Normal Negative [facility] Comment on above: Performed By: #### A 1C #### [facility] [address] [place] [address] Dr. Alexsander Dickinson VAGINITIS/VAGINOSIS DNA PROB Jose De Jesus 11-16-2022 Reema species Negative Normal Negative [facility] Comment on above: Performed By: #### V AGINT #### [facility] [address] [place] [address] Dr. Alexsander Dickinson Gardnerella vaginalis Negative Normal Negative [facility] Comment on above: Performed By: #### V AGINT #### [facility] [address] [place] [address] Dr. Alexsander Dickinson Trichomonas vaginalis Negative Normal Negative [facility] Comment on above: Performed By: #### V AGINT #### [facility] [address] [place] [address] Dr. Alexsander Dickinson US PREG INCOMPLETE ANATOMYon 11-14-2022 US PREG INCOMPLETE ANATOMY EXAMINATION: US PREG INCOMPLETE ANATOMY HISTORY: screening COMPARISON: No relevant comparison available. FINDINGS: Heart rate: 150 bpm position: Variable Anatomy: 4.8 x 5.8 mm choroid plexus cyst is again identified IMPRESSION: Stable choroid plexus cyst Electronically authenticated by: SEBASTIAN HENRY Date: 2022-11-14 16:19 Normal [facility] FREE T4on 10-19-2022 Free T4 [Mass/Vol] 0.89 ng/dL Normal 0.76-1.46 [facility] Comment on above: Performed By: #### H BSANS #### [facility] [address] [address] [address] Alexsander Dickinson TSHon 10-19-2022 TSH 1.303 uIU/mL Normal 0.358-3.740 [facility] Comment on above: Performed By: #### H BSANS #### [facility] [address] [address] [address] Alexsander Dickinson US PREG ANATOMY SINGLEon [...] DEE GALLEGOS Date: 2022-10-17 20:42 Normal [facility] AFP MATERNAL FOR SPINA BIFID Aon 10-11-2022 AFP MoM 1.49 Normal [facility] Comment on above: Performed By: #### A FPMAT #### [facility] [address] [address] [address] Alexsander Dickinson AFP Value 60.8 ng/mL Normal [facility] Comment on above: Performed By: #### A FPMAT #### [facility] [address] [address] [address] Alexsander Dickinson AFP, Serum for Spina Bifida Report Normal [facility] Comment on above: Performed By: #### A FPMAT #### [facility] [address] [address] [address] Alexsander Dickinson Comment Comment Normal [facility] Comment on above: Result Comment: Niurka Patricia, Ph.D., [facility] Director . References: Available Upon Request. . Multiples Of Median Cutoffs For AFP Elevations Fonseca 2.5 Black 2.8 IDD 2.0 Twins 4.5 Abbreviation Definitions IDD - Insulin Dep Diabetes OSBR - Open Spina Bifida Risk . For further inquiries contact [facility] at [phone]. . This test was developed and its performance characteristics determined by [employer]. It has not been cleared or approved by the Food and Drug Administration. Performed By: #### A FPMAT #### [facility] [address] [place] [address] Dr. Alexsander Tiwari Age Collection Date 19.4 weeks Normal [facility] Comment on above: Performed By: #### A FPMAT #### [facility] [id number] Alexsander Dickinson Gestat, Age Based on NILE Normal [facility] Comment on above: Result Comment: 02/2023 Recalculations are not recommended when gestational dating by LMP and ultrasound are within 10 days. Performed By: #### A FPMAT #### [facility] [address] [place] [address] Dr. Alexsander Dickinson Insulin Dep Diabetes No Normal [facility] Comment on above: Performed By: #### A FPMAT #### [facility] [address] [place] [address] Dr. Alexsander Dickinson Interpretation Comment Normal [facility] Comment on above: Result Comment: Inte rpretation: [...] Customer Services to discuss available options. The [employer] [place] [employer] recommends amniocentesis be offered to women age 35 and older. Performed By: #### A FPMAT #### [facility] [address] [place] [address] Dr. Alexsander Dickinson [age] Normal [facility] Comment on above: Performed By: #### A FPMAT #### [facility] [address] [place] [address] Dr. Alexsander Dickinson Multiple Gestation No Normal [facility] Comment on above: Performed By: #### A FPMAT #### [facility] [address] [place] [address] Dr. Alexsander Dickinson OSBR Risk 1 [place] 2809 Normal [facility] Comment on above: Performed By: #### A FPMAT #### [facility] [address] [place] [address] Dr. Alexsander Dickinson PDF . Normal [facility] Comment on above: Performed By: #### A FPMAT #### [facility] [address] [place] [address] Dr. Alexsander Dickinson Race Normal [facility] Comment on above: Performed By: #### A FPMAT #### [facility] [address] [place] [address] Dr. Alexsander Dickinson Test Results: Negative Normal [facility] Comment on above: Performed By: #### A FPMAT #### [facility] [address] [place] [address] Dr. Alexsander Dickinson GTT 3 HR PREGon 09-29-2022 Glucose [Mass/Vol] 99 mg/dL Normal 74-106 [facility] Comment on above: Performed By: #### A FPMAT #### [facility] [address] [address] [address] Alexsander Dickinson Glucose [Mass/Vol] 173 mg/dL Normal [facility] Comment on above: Performed By: #### A FPMAT #### [facility] [address] [address] [address] Alexsander Dickinson Glucose [Mass/Vol] 151 mg/dL Normal [facility] Comment on above: Performed By: #### A FPMAT #### [facility] [address] [address] [address] Alexsander Dickinson Glucose [Mass/Vol] 76 mg/dL Normal [facility] Comment on above: Performed By: #### A FPMAT #### [facility] [address] [place] [address] Dr. Alexsander Dickinson GLUCOSE - 1HRon 09-20-2022 Glucose [Mass/Vol] 159 mg/dL Critically high 74-[address] [facility] Comment on above: Performed By: #### H BSANS #### [facility] [address] [place] [address] Dr. Alexsander Dickinson HEP B SURFACE ANTIGEN SCREEN on 08-17-2022 HBsAg Screen Negative Normal Negative [facility] Comment on above: Performed By: #### H BSANS #### [facility] [address] [place] [address] Dr. Alexsander Dickinson HEPATITIS C VIRUS AB W/ REFL EX QUANTon 08-17-2022 HCV AB <0.1 Normal 0.0-0.9 [facility] Comment on above: Performed By: #### A 1C #### [facility] [address] [place] [address] Dr. Alexsander Dickinson Interpretation: Comment Normal [facility] Comment on above: Result Comment: Nega tive Not infected with HCV, unless recent infection is suspected or other evidence exists to indicate HCV infection. Performed By: #### A 1C #### [facility] [address] [place] [address] Dr. Alexsander Dickinson HIV 1 AND 2 WITH REFLEXon HIV Screen 4th Generation wRfx Non-Reactive Normal Non Reactive [facility] Comment on above: Result Comment: HIV Negative HIV-1/HIV-2 antibodies and HIV-1 p24 antigen were NOT detected. There is no laboratory evidence of HIV infection. Performed By: #### H IV12 #### [facility] [address] [address] [address] Alexsander Dickinson RPR QUANTon 08-17-2022 Rapid Plasma Reagin, Quant Non-Reactive Normal NonRea<1:1 [facility] Comment on above: Result Comment: Plea se Note: This test does not meet current guidelines for screening and diagnosis of syphilis. This test is intended for following treatment response in patients being treated for syphilis infection. To screen for syphilis infection, a reflex cascade that includes both RPR and a treponema-specific assay should be utilized, such as Treponema pallidum (Syphilis) Screening [place] (024043) or Rapid Plasma Reagin (RPR) Test With Reflex to Quantitative RPR and Confirmatory Treponema pallidum Antibodies (848529). Performed By: #### H BSANS #### [facility] [address] [place] [address] Dr. Alexsander Dickinson RUBELLA AB IGGon 08-17-2022 Rubella Antibodies, IgG 11.90 index Normal Immune >0.99 [facility] Comment on above: Result Comment: Non- immune <0.90 Equivocal 0.90 - 0.99 Immune >0.99 Performed By: #### H BSANS #### [facility] [address] [address] [address] Alexsander Dickinson CBC AUTO DIFFon 08-16-2022 BASO # 0.1 103/ul Normal 0.0-0.1 [facility] Comment on above: Performed By: #### H BSANS #### [facility] [address] [place] [address] Dr. Alexsander Dickinson Basophils/100 WBC (Bld) 0.6 % Normal 0.2-2.0 [facility] Comment on above: Performed By: #### H BSANS #### [facility] [address] [address] [address] Alexsander Dickinson EO # 0.1 103/ul Normal 0.0-0.7 [facility] Comment on above: Performed By: #### H BSANS #### [facility] [address] [place] [address] Dr. Alexsander Dickinson Eosinophils/100 WBC (Bld) 0.9 % Normal 0.9-7.0 [facility] Comment on above: Performed By: #### H BSANS #### [facility] [address] [place] [address] Dr. Alexsander Dickinson Erythrocyte distribution width (RBC) [Ratio] 12.9 % Normal 11.0-15.0 [facility] Comment on above: Performed By: #### H BSANS #### [facility] [address] [place] [address] Dr. Alexsander Dickinson Hematocrit (Bld) [Volume fraction] 39.0 % Normal 36.0-48.0 [facility] Comment on above: Performed By: #### H BSANS #### [facility] [address] [place] [address] Dr. Alexsander Dickinson Hemoglobin (Bld) [Mass/Vol] 12.9 g/dL Normal 12.0-16.0 [facility] Comment on above: Performed By: #### H BSANS #### [facility] [address] [place] [address] Dr. Alexsander Dickinson IG # 0.04 10e3/ul Critically high 0.00-0.03 [facility] Comment on above: Performed By: #### H BSANS #### [facility] [address] [place] [address] Dr. Alexsander Dickinson IG % 0.4 % Normal 0.0-0.5 [facility] Comment on above: Performed By: #### H BSANS #### [facility] [address] [place] [address] Dr. Alexsander Dickinson LYMPH # 2.4 103/ul Normal 1.2-3.8 [facility] Comment on above: Performed By: #### H BSANS #### [facility] [address] [place] [address] Dr. Alexsander Dickinson Lymphocytes/100 WBC (Bld) 26.3 % Normal 20.5-60.0 [facility] Comment on above: Performed By: #### H BSANS #### [facility] [address] [place] [address] Dr. Alexsander Dickinson MANUAL DIFF REQ NO Normal [facility] Comment on above: Performed By: #### H BSANS #### [facility] [address] [place] [address] Dr. Alexsander Dickinson MCH (RBC) [Entitic mass] 28.4 pg Normal 26.7-34.0 [facility] Comment on above: Performed By: #### H BSANS #### [facility] [address] [place] [address] Dr. Alexsander Dickinson MCHC (RBC) [Mass/Vol] 33.1 g/dL Normal 29.9-35.2 [facility] Comment on above: Performed By: #### H BSANS #### [facility] [address] [place] [address] Dr. Alexsander Dickinson MCV (RBC) [Entitic vol] 85.7 fL Normal 81.0-99.0 [facility] Comment on above: Performed By: #### H BSANS #### [facility] [address] [place] [address] Dr. Alexsander Dickinson MONO # 0.6 103/ul Normal 0.3-0.8 [facility] Comment on above: Performed By: #### H BSANS #### [facility] [address] [place] [address] Dr. Alexsander Dickinson Monocytes/100 WBC (Bld) 6.8 % Normal 1.7-12.0 [facility] Comment on above: Performed By: #### H BSANS #### [facility] [address] [place] [address] Dr. Alexsander Dickinson NEUT # 5.8 103/ul Normal 1.4-6.5 [facility] Comment on above: Performed By: #### H BSANS #### [facility] [address] [address] [address] Alexsander Dickinson Neutrophils/100 WBC (Bld) 65.0 % Normal 43.0-75.0 [facility] Comment on above: Performed By: #### H RACHELNS #### [facility] [address] [place] [address] Dr. Alexsander Dickinson Platelet mean volume (Bld) [Entitic vol] 9.9 fL Normal 9.5-13.5 [facility] Comment on above: Performed By: #### H BSANS #### [facility] [address] [place] [address] Dr. Alexsander Dickinson PLT 275 103/ul Normal 150-450 [facility] Comment on above: Performed By: #### H BSANS #### [facility] [address] [place] [address] Dr. Alexsander Dickinson RBC 4.55 106/ul Normal 4.20-5.40 [facility] Comment on above: Performed By: #### H BRITTANIE #### [facility] [address] [place] [address] Dr. Alexsander Dickinson WBC 8.9 103/ul Normal 4.0-11.0 [facility] Comment on above: Performed By: #### H BSAMARC #### [facility] [address] [place] [address] Dr. Alexsander Dickinson CULTURE URINEon 08-16-2022 CULTURE URINE Culture Observations: MODERATE GROWTH OF MIXED GENITAL JOHN. NO POTENTIAL PATHOGENS SEEN. Normal [facility] Comment on above: Performed By: #### A FPMAT #### [facility] [address] [place] [address] Dr. Alexsander Dickinson GLYCOHEMOGLOBIN A1Con 2021 ADA RECOMMENDATION SEE BELOW Normal [facility] Comment on above: Result Comment: ADA RECOMMENDED LIMIT 4.0 - 6.0 ADA THERAPEUTIC TARGET < 7.0 ACTION SUGGESTED > 7.0 Performed By: #### A 1C #### [facility] [address] [place] [address] Dr. Alexsander Dickinson Glucose [Mass/Vol] 111 mg/dL Normal [facility] Comment on above: Performed By: #### A 1C #### [facility] [address] [address] [address] Alexsander Dickinson HbA1c (Bld) [Mass fraction] 5.5 % Normal 4.5-6.2 [facility] Comment on above: Performed By: #### A 1C #### [facility] [address] [address] [address] Alexsander Dickinson LATRELL BOX TEST PT SEND OUTo n 08-16-2022 SENT TO REF LAB 08/16/2022 Normal [facility] Comment on above: Performed By: #### N BOX #### [facility] [address] [address] [address] Alexsander Dickinson TYPE AND SCREENon 08-16-2022 TYPE AND SCREEN Negative Normal [facility] Comment on above: Performed By: #### A FPMAT #### [facility] [address] [place] [address] Dr. Alexsander Dickinson US PREG TVon 07-21-2022 [...] DEE GALLEGOS Date: 2022-07-20 22:25 Normal [facility] US PREG TVon 07-13-2022 US PREG TV EXAMINATION: US PREG TV HISTORY: Missed period COMPARISON: 03/09/2022 FINDINGS: Fonseca intrauterine gestation Gestational sac: 1.7 cm, 6 weeks 2 days Yolk sac: 1.7 mm [place]-rump length: 5.8 mm, 6 weeks 3 days Heart rate: 125 bpm Uterus is normal in appearance, anteverted, retroflexed The ovaries are normal in appearance. Cervix: Closed, 3.9 cm small amount of fluid in the endocervical canal IMPRESSION: Viable fonseca intrauterine gestation measuring 6 weeks 3 days Electronically authenticated by: SEBASTIAN HENRY Date: 2022-07-13 17:05 Normal [facility] Coding Summaryon 03-17-2022 Coding Summary HTMLBase 64 AyqeyoxzKKn2yMu+PGhl YWQ+GJ4DCXUrZ90pcQBv sA9KR0iOKY7JKPPWEFGM MB7EQX5khQD4UGwfY9Bb biAv UedeyTBkHR50YEq5EYN3 sJfaQRhrvU5fiJThS0i2 RrZkFF59yR62TOluAQJv BhN1TxUymjcfuQKh E2hjJtKxmRNtLkz+PHRh YmxlIHdpZHRoPScxMDAl QfNwzWhkCQ8xCl4pECCx LWNvbGxhcHNlOiBj u8gjCXKeOQbuUO1cwPqb H6XgmVN8KKBfy3a3Tu12 dHI+GUUvTIL1oPeyQIkr s999XvObq7bdUPU4 jADmWXbsXEZ4T97bp6M8 KCTgIFHlNYX5wMI0eP8t mNaetgacE6JilDUvJrX6 MYD2zSHflE9hzYsr hobpuL1vXbh+M73ZQH2T YCXNKF6RDhp5S2UtNrxr dHI+JZ75OEQlHX98xNUb uJCbd2zojLs4GnHa RNDgZSS0kZegZTbta2Ug MQCgU46ahCVca6N9ZLRr fHlibWRpWkEorXI0jQ9l WZqrcvprk6npxnnp Qciim1gipd39iN98G02t WYszURPlSNY4KLLgKGQt cRigra2ajJ6eWs5+IDxj j7ptg3fdiLz8QgMj XWHqbjZdoWjnJVP4h9Gz Ul61F7HgdOuwv0UaOfg8 ox57iNLbf0G3jDG6HLhc XEAelU2kPDwbSfO4 ZFKqVnMopE95eZUoGTxz Yt5gqHpugQouQA2rJXKq gcqvHSXkvN4nMDEvfICc mKslTK1qNFDbqxkf z419GwEaXCY9ALYvgAPp Y2OovC3fBeUhEFEoOOXb P5DxwFEwRJpcI758ACtq JaO6LXGnqmPqN2Mm MYCgsDluLuM6i0S5By7E x3DfqpqgNZW7LLgvEUA5 NcHqCvDvFtJ3Q1JsZxr3 FSFhcJarCG6zD0Nb QACusxkyeqmazLB2ZMUy GKYlxS29yJWiSBoyCr9h u6Y5p965GQZsNGGkxA49 Cs2obPumTBEdbKWF fD8snxxgl8hjvvuxKnSw FJSeTYw3EUo3WPUreCmh VcDxOKU6ZrT5SBT5tWHo cH9fdXxlqwwfhB2i Oyc+J12ndS5aVQF3RTZ4 cyjgBBSwcrEqAN25UE59 W4VxGfwrxWTucFJ+PGRp icMrhGtdNM0kFwRc y8zac5QsIKcaY7AlKTYb NDhlNdn2PGOnWYK5kPW7 oN2lTZUvPSdny3U6zWM1 D4HxnxFjmm1qo6ei WRCzRZkeH24arLJds8M6 PRHkoTK4DCSmyNeiRrXz wD85Zba+MBAgkKtcs6Pd Ywfgt1qrm1ygtVf1 IjMwJSIgdmFsaWduPSJ0 l3XkNw34A26lTQgcFXAj WXPkDFAsUGGawScpuw8z yX5rMl9+PGNvbCB3 rKO4kJ2vDPZbKrK4JWlx M346QtUkzSCiCfklc8eh v2mzsUm1UiZwEYColaJs fTrmXUH0d2WkYb25 L73fWXqeETTdZLPoMUYg WQJdsKcvbj7eaB0hWs2+ AJ3uc8pwai72uH15zGW+ NOSbXNQ7eRwqOFvd QNRmdR1lJBlhDyO7AAJa RoOvcK46qAGbZVlnUw7n lKcfkFcxUL7iQWRcwuwz p229FsWlj8zmTKDe mIWpNZrvZCJ2X62sc6H9 JFBqBDYtYVL3oFS3nT2e bGlnbjogbGVmdDsgdmVy aPpsAGqzZTgsN819 IHRvcDsnPlBhdGllbnQg NoHzWJl6Q7YpCly2BKEm gPhtAP1mtHTxLJbwFx9h xCqfwBtfUO8sKUPm elver293EcDvz0feRRVo hTGvYLeyDRX4G41kl8B6 AJEgLKSfFBQ9qKW2oB7v bGlnbjogbGVmdDsg tyEkoEyjEPvhDXkvR688 IHRvcDsnPkJpcnRoIERh oBW7MU56LW43pJOoe2F2 fKK9E6FvTGJldvha brghaRI0CWDuLFXsqB14 Iu8moFcoLy9wTEHcFGU9 FSOajOXtS5ZbkI9hEvUk ZRViZHEmQ5DhqRMb BLmeT602DXfaMhK5CYZs cvXiQ6UoLJEtmKqoQfP1 o1Z9Ra1UJ2I5YV97WZ36 bWTsm9M2lBL0O1Zv AGBbqleufrxawXE4SHOt SUZduK07Pt9dtYixRl5w FTGkSXH5PNDphGRrK4Vi pO7dYtSpPTEiVKQl Y7FelHLuFVewI683YGwz DiQ9CMScjbRqW7XdMMHv lGxzBuP3a1M1Tn7XVAf8 JK10NR68bTEqi6T1 eQW8V0PkNYAaeufydtom cJJ7DTYiJNKqyP89Tv4f mAujRi7oMZAhIEW9WJIa uHLdV1GdqY5qRfXm UOOtFHHhS5ApgWNhKDfe J780QOfsTfD6UBXucyLy F5GdZLJruAdvJxS7m6O1 Pm1UQCUfSU46SLZ9 kRM9DK98VQ48O5BrPpeo dGFibGU+PHRhYmxlIHdp ZHRoPScxMDAlJyBzdHls KF8bBm3tXMJnUCEu cBydfWEvOzEsb7tyXAJu NGtlXI6bsIvcK6ThnUP7 AMPcs3d8Ua29N07mO6Mc dXA+DLVgoFZ4zOO3 hL3aWoSxDhM0TSnuD215 QrEnqXDvPlfps9njr1rh fHt6TkX6KPCnlhOmiFks CUO1r2LpEy99I03g IHdpZHRoPSIxNSUiIHZh sSlulg5ubD9iOy1+PGNv yBR6oKG3eR5jPwQtIwQ9 UObvM408PuSjqSPx Ggsih4jwt1kftOj8CzJc ZTClgwYgnHniTJS3n3Uh Sk92V0VkjZnyl0BeDow9 de32nRXlk5H5wJS9 M2TxQNNbiwiooCBnoFef CE4bIPCpjfuyAITkwZ0e FSXkO9h6XnIbAgZ9SUuk W6NxsdE8RMWrcZUa YOycTAV2F42qa8W3VIHu YCOwINZ1eGR9oI4gePde bjogbGVmdDsgdmVydGlj YKbvFBmfS438HQXw fOufHIXvjU6vYCFhfXZz zNovUU4gFBKeuwprNbOJ TExJTlMsIEFMWVNTQSBS PSCCAQt1D9FzBjm0 QKFowMlgMD4brCTaITjr Cy3fjMgimAiiSW4uUADa weeyOAHcsJ6lDJXirSSz xBgkKB4bWZTvtkrd p594XjEcKLB3XLEuaDZo F0RfeN2mVqPdQSNqTJNi T2UndWTpVRkvM978XQok CeP7KWQkenXqQ0Ec VCCafYdiAkP6m7A5Xi3e TI6zKl7eZOz4ZQ38ZP83 nLJrg4C1uMQ4F5IuTLGz yjjfvpoxzOI0PIKb EMBqpB89lTEsYZzzTz3u m5N2s313WXEaEBTgrZ55 Mv2mhHiaHDNmsBKTxW0m anegp9rrwtapTlFr EWXpBYg2CAj7AJMakEaz PnQxOOR6DsN8FGP6pKKo bC1swJxqzeocbS7jGzy+ ExloZDEdnqL8M6Vy Bzc9IJBloRucNC7ttAJv VCeoRo9qpOkjoSlxQI0u PXDlrgyaASBneY8nTSZl sVEciLrmKG4nMITv udbff193BhOvGSV2YQUo lPTaC8TftH1uRfGaXMQe RXWsD3IshYUaLAveL988 MHwjXrJ6PVYworUg M6DqJKYzuMvsVeM8a9C9 Pl4ZWJ8RHAL6Z3KlCvv2 UZKdvYusNH9dhLAdFBkn Zd0knByaaHwmCS2i AKNojmbaPLOcbH3wWZKw eJIgnQckHF1lBYVriqds g398VhPqZZR0BEGmyOUt Q4OfkP4cCkBoYUOy SMYoT8WopWKnALuaG659 RFqiWaU7GUXdpaCqA7Py SNNveObiQuK6p1W2Md4J UDwvdGQ+BY24hn74 L7RaAolwFaw9ZURlFLN4 vXL2xD8tHATpKNlbx7E0 tEL5G7MfpyGuzn0cm9nn NAElMAxeN73qrKLj n8I6KJSpuWH5OCVsaGgi HuKyhA49Uqn+PGNvbGdy d8DtQqvzs7flt8glcRh5 IjMwJSIgdmFsaWdu ESB3r3CdJj95R47kEBgy ZHRoPSIzMCUiIHZhbGln fv5xvS7jHk8+PGNvbCB3 iCG7oV4iPnTuFgB6 MRuhD249JvEhrVQjAngd f6cdo8hmnXt6IhZnCFMk voVzrObsFMS8p1NcNt74 V4WshShnz6IuZjk8 rv25dBByc5P7eSP3R4Qh SIYjxxglsXZpnXlxZR5q CIJdvfrjKCIjyZ1sCSLd L3y8UzRlJwS4FNqb Y9XgbrN8FOOekVHzPFXf nXTHdI6mofajo0qqrduv LjDsBDGmMQf5KJy0QBQm qGtgBuBqXDI2UhD4 SZG8yUJynZ0apOuyvltp iU5zTeq+PLe8m9arfPMv GR3myAW7ZB88VI73kBWo d5L4jXL0T8TsWJXf yaarcicgwWS5XVUyULGq mQ89Vz2xrJxyRq0xXLBi DHK4LRYhpNGhE5VbwO6o RtJvRCPlHGRyT7Fs dGVcPGbdX412WEkhXqQ0 GPQkneUzL7ExQJIzhHhr XpU9h3P9Ru3GLO03XG49 IU20cANjf1F7xFQ6 F8NmXYNfecefdkxdsGN3 MEZbSLTudZ51Me0nlZdp Qe2kHQMsQJL4DWCfaEZo Z2XloS4zKtAgVVGh EOWkG4HniVUxXHjlY862 XKfrAxI7YHSeqyScL2Yv XITarBbiWpQ0x2T0Wp2F Uw90CT95RD30mHXv p5W8dOW0W1WyISDadgqn aqwekNS7PJIvECYirN62 Pl5zxZbeJo7nZACfUKY2 MIXrbZIkF0TcuG1r RiTkNGNcCEAsE9EyxOBh TLdlU178LWciTvI8MVAc cpBoL0QiLZRzmQwiXaR5 d1J6Hf1NUCxabrh2 G4CbEovgsUG+DH78HSGr OB94cHLahAEie2pflIy3 BoInMZThKHP4tFldRBlt g2KcRBWcQ61neWWn c2U (more content not included)... [facility] Coding Summary HTMLBase 64 AdrzvqhtYXu9aKo+PGhl YWQ+DE4XNLHzA90agJTu eK7GU5mZHM1WLEXKSTRP ID4JIP3xnDT9XQyhU5Ih biAv HvuoqWDhHZ62ESi0XSR6 aThoOImgnC7vqCLvF4d0 YgEcPU75uQ35OCieDNQk FwJ0JtSebyarpLSf H5tgCrJchSFtUeh+PHRh YmxlIHdpZHRoPScxMDAl AaEmiDfdUW9qXo3gKFSx LWNvbGxhcHNlOiBj s4goUDYiKJjbRG2jyWzc R9OplXB3TSIna2o8Ea59 dHI+GCUeVDR6xOziICcu n756EmXci9paSDA5 tOGxVIxoJAW3K63oo5K0 OGHeGXTrSOE0kMN5vS7k bKhihulqD3MgqDFnDpR0 WMY9cMXppZ0nzKhe izhzgW8bLfv+X86FXW1O QPEKTK0LOxo0O4VuWexn dHI+OP17ENYyAK39lCCm oQXsq7nksCq0QhPs ZWJeHXA8uFfcUXrdc0Hf QQFrV35dlTHuy1N8IYWf lBaofUYdKmLrxBV5mF0a YYsggifib5kzjbxg Iytfk3gffl99qD96W33g NBhgXQZmMBU0BRNkYSHq kWybux9naC5hBd7+IDxj v6wsx5unlQq2TbQm XHGzskJbdLckLFW8s8Sf Ne72K2YduSqlv0AcZzw3 vb97jMShx4O3rDU0MFrk IHWeaB7rDVhaOyF6 ZBHdLtSgmF03wRThLBjp Yr6zcAazuTprAC1eRKOa zkknUSAifK1gLLSqlKWk jDguSF0dUOLywzgh p681JoFrLOP6IFGjpZCz Q2IhaD9xYwLdBJGsWIXo I9BazDUhHBqrF382XYka RtN8OBZfkzNoN1Ex ALVitIvbBtH2f7O8Qm2Z o1JeojqaGZY5IHcjBLB4 NtUhRzVpQgY6S9IqZjq8 OOGysLzoTT3kF7Uc WCShpkvhshwokBK8ZKFd NTAjlF71uSArNUolLn7p k5F8x043KCIjQSLqaV15 Tx8tiJukVELsiUBU qK9csmrtl4hpzvpuWsKa YXTnOSu9QYg0OZSrqNlb LcOhACS8OzR1AMI9aETo sC3riXicmhaznE3j Oyc+I03cxM4sUCN3MCE6 aqtwFEOjpnLkFE00GK41 Z5DuMcomjJIssSP+PGRp mjIizNdrZA0yFcLr q7hdn5ZzFKiiP4VgMJEj DMcoIqk9OJTzBDD5mPE7 bW7bGHNjXLykm3T8rGZ9 R2VuezOeop5zj4fu TUWsMFmnJ49ujPUca3B4 RKDbvEU7JXMuhHjtXbJy bQ41Vxl+QEArrFyoh7Rb Nmtul8hgq8mjdOq3 IjMwJSIgdmFsaWduPSJ0 i2HgYm58Y89sUYgwIJQb QDIzMKCjSBVtuArsqa0b jQ9jTr3+PGNvbCB3 zGI2cO2yWNRrTrF8GVfl D632KmQqcOMaMyxhb5py w0ktwId7JnQrOWJotbOm pXhhUIE5v7TqXs58 G85gKFqjDFZpDABkRHIy FHRiuVdqga5deT3wEv5+ RP4kk1bjjw26cZ78wDL+ LSTxENB3vVczIQxa SUZbjB1fURniCwJ5MSJg NeVzeL45lNRvUFisOq8p rFmurOwdIC1jECQigapo m908ZbFuo9fvIKMx hCXeILdbQGJ9A63ax3R4 ZMZbOOTfYMF5gRF7rX0r bGlnbjogbGVmdDsgdmVy hJqkAJuoGOaxL611 IHRvcDsnPlBhdGllbnQg VoGpVOu6X9CdSgv3DDTv aIplRC1rpBHaBFsuOe0i aWqcmPksFU5qSUJh aerzc005SjJzb1wiUNBn gYQhWAlnXJW1G53qz1E5 QJRyVVBmJDO3qXU4tJ6n bGlnbjogbGVmdDsg nmPnaGkwNXjrRAcyU205 IHRvcDsnPkJpcnRoIERh vMV6KM70IF29gNHgu0I8 mZU8S0QiBEZakyxg oapwgQU6HAVsUIHzmV78 Vy9itRfzDs3fQRFdWED9 BPTujLLjO6QgzJ1lQqSo PBXuMEOaI8CtwDEf VAbqC193XAihDyI8XWFd fhJuV2ZlHHTmwXbnKzB8 g0Q9Ap2MG5Z9XK20NH90 xQDne7U3pOU7J8Tn AHJjjqyeohzrhHP3MTVn WFOlbT53Db8mhFupSz0v GGBrVEH4BIKtaQUdE3Iy rU5qVqEwWWNiFJEd M6KaoUWbRLuuF892MUyf UsV7VXYlkvTlK4YiHLPh jKumIqX8m2F7Wf3NUAk1 WK27BK95yHGbz8I4 fDG5Y4XzYLBregmrnaso bMH3WKIrJBJzsK83Tv0p yZqyKb3oAWMhUDI4AXPc cGNeA6MzqQ8dAoKn YVBuIJDeK7PgmGEtEHcj P202ZRkhNyU4AUVlahZo K9JuFRNtiIqpClI4s6W6 Ki1OEXGoRU51JFZ7 vQD0RV04DT66N5YcYlky dGFibGU+PHRhYmxlIHdp ZHRoPScxMDAlJyBzdHls NB3fCv5vZNFwAYNi sIxnwFKeKyCrn2rrIZBd PQlrQU0vnTgvQ2SqhOY6 HQJuf7q4Zp52Z96pB9Be dXA+XJTnvUQ9vPO9 kC6lCxKeIdZ0CPznG128 VoBkgHKkYxaju9lqw2rl jOf6PqY1OGDdpuLvrNrt AOC9v8BdJa87W11z IHdpZHRoPSIxNSUiIHZh uFcvub7xgV1dPz8+PGNv pEP2tQB5sO5nZoKqMbL9 YTjkJ437QyYliGPq Mloah8gea6dwtIe6CcZg HMBruiIgyBfrRKX9m9Ad Mo71X7YfsWavp3FlCdl6 iy89hZAju1D3bDM6 R0FnMNCzxrwwyCMcoKab HY8nBHRrzqnwBWOuuD4j LLGwW9i3QiGsNwD4FNtf L0QtwrE9CLXcwMHk RBjcTSZ1W33mp6Z3RQVm ZMHrHXE6zCA8zE3gnFxx bjogbGVmdDsgdmVydGlj ZRyqIOssI255REFs bRliAWGrwS4qQQLxrMAi zJedFW9rQVRxnwyqErMF TExJTlMsIEFMWVNTQSBS TVUAZFz6T8OhSpg6 HPFhrBvkWJ3fmFKsFQbk Jm7txXnozXjeVO6zRFLp oetsVVYvdV8bBKRyvLHt kVuwVA2bCDQtqcvn e250NaXlMDD6OBHkvTTk K3LdrJ8gMqChNHRgTOAg B0YpzEJzHMlzS863LNxa VsD7ITOcluHvC6Mi YMPrqFxmTaC6r3K6Xy0m LK8gUt8dBDq0UK87XZ93 nBVfp8N8rCU5N3KwVRUz hktrdcfygXP1YHNe EWWztM42vUToZVbeOr6g n8A2n473QRRyESDovM82 Nx7maRxeSBIyhFZCtQ0s uencv6ctfhksYtCm HYIuDIz1AZh6NRDahUrj LcCvNQS2RhQ0FMZ5wMUu fN5hbAzwmfjwzZ5zXqg+ OtlgFXTkslG3Z7Gv Ufk5EYVjpRbqNW8dwGEp CPwkDm9liDyaqVyaII1i JCBpezomZYDzoJ4pSSPh tVDioVjzHG0xUZOw ecqmk416FzZuEVX5XTMa bLKaY0QsvK9uBpPkSBBq IWGcK6NyrYAvMEwuF602 WYryYiV9SSSnaqSo H5PzVXIjpWiaUxD1s4S8 Xu2OVO6XURM7A9EmYzv0 NBGihNrrWQ9vyDFaNYhe Wf3muZfmtVerFR6p VHRasddeOGXmrY0jNXMx mJYwfYhgQZ1wNIGfawag i992KoHwIEL1LFTeyBWd V9JbmO2pNpHmTFMj RVLbZ7SygEXbVDmbE486 HLdcJlL3RARimeLnS5Uq TXBwoSrrGsY1u9L4Mq7O aWRzT8VlB3o5K3Wx PjwvdHI+PZ79UCVrFA53 vPHfsYYzu3ozmMp9QpNr WHVcHOE8tMcbJDllu7Pq NIDsC86eyHEbg2T3 IGNvbGxhcHNlOyBlbXB0 mL5vRFyloojdj4xwldhj Nshbp1rkcq80cQ95R39d IHdpZHRoPSIzMCUi SYSrvUzfzi7buZ6lVi0+ LIVykFD3bBK0yS7xBgHj VqE8COtnU949EmCrgPEq Ncata4tei3zneWj4 IjIwJSIgdmFsaWduPSJ0 b3FcMc70R00qSSrzZSEh HXFbUVGrDQCrkFnqfb4a sO0qVn3+JK1qh5tf uh21vY60uQY+PHRkIHN0 mRyzMAbzZACqbN2jEPcu AcD5LFYuFjRksZ82uIVz PIieUx6zcWnnaKef JO3eUUPmdewuh737BcWo k8pzEIUndPDtMZmqEHV4 P47ns9K8VMVdCMIwTZK7 hHG6gA1ubGgzvwxo bGVmdDsgdmVydGljYWwt GKorS111FNDwaUmeWtNo qIPwI2etnaLYMU0gHpdv dGQ+FLYjYOO6hCtl HPtaEBUraQ8lVVGaV5z1 UuQyQiL7DAxbO1FblnR6 MWLicLFfXZAxuRCOgJ5f gkclt6geqgnzFyQf QZVeICv7GDz3QUAprKmn PgFrTHT5PdE4JAE0wNLi qZ0xrEfqicrqhQ3kSdn+ RklOOjwvdGQ+PHRk LZB6gCavZCdyHFEndP2w BJXtQ1p4CgQkLqK6ZExe J6OljhN0DTVrcRBiOMAj sTGDmC2bwkpzv5fo dvbhWqDoONWqNAp3MBm6 LVCfcCbhEbWaJBG8WkG2 QQZ2tHNwiZ7zhRrmuxrj uN6zQtt+TVJOOjwv dGQ+WYMzOJL0qFjfIPvd BEOpgV5dSJXjF7v1XsYb NuD2SGwoD4WrfsF2ALNw tQZhHNGlaGXQeP0v koljb8occzlzNkWuLOOi OFf3UDz6DTGbkHgpWqAe OOU5RzN7IRO4jEIwqC9a iKzfnayjnZ9jEzw+ PWF4BOH1YM59NB41I5Su PjwvdGFibGU+PHRhYmxl IHdpZHRoPScxMDAlJyBz oRvjCY3wOi3rGCPg LWN (more content not included)... Normal [facility] C Urineon 03-11-2022 C Urine Urine Culture ordered as a result of parameters set on specific urine dip and urine microsopic results. >3 Organisms Consistent with Contamination Recollection suggested. Normal [facility] Comment on above: Performed By: #### 1 6651149, 19531366, 2812865, 0534435023, 31892811, 6914777, 5926969815, 0525430224, 4682669043, 6831248 #### [facility] (DEFAULT) [address] [place] [address] 59792 .Auto Diff 03-09-2022 Auto Dixon % 8 % Normal 11-09 [facility] Comment on above: Performed By: #### 1 3016509, 84145750, 9829895, 9225042362, 52267395, 5447913, 0408928559, 4989102028, 3004053652, 9679601 #### [facility] (DEFAULT) [address] [place] [address] Baso Abs# 0.0 x10 Normal 0.0-0.2 [facility] Comment on above: Performed By: #### 1 0718666, 48436472, 0287198, 0293377272, 29334174, 9581083, 3572577062, 8610942409, 6039318837, 2250286 #### [facility] (DEFAULT) [address] [place] [address] 47857 Basophils/100 WBC (Bld) 0.3 % Normal 0.2-2.0 [facility] Comment on above: Performed By: #### 1 1786381, 24581251, 5969091, 3352636973, 29785525, 6927863, 6764139518, 8151972662, 9247266292, 0367685 #### [facility] (DEFAULT) [address] [place] [address] 95699 Eos Abs# 0.1 x10 Normal 0.0-0.4 [facility] Comment on above: Performed By: #### 1 1064293, 36149162, 7855107, 1118727088, 84873130, 1557025, 9978294714, 6614162886, 2254624942, 7012674 #### [facility] (DEFAULT) [address] [place] [address] 10440 Eosinophils/100 WBC (Bld) 1.0 % Normal 0.9-4.0 [facility] Comment on above: Performed By: #### 1 7400000, 83788252, 1979578, 5352290086, 86577828, 1303568, 9070008678, 4384566938, 2347317918, 5186694 #### [facility] (DEFAULT) [address] [place] [address] 21436 Lymph Abs# 2.0 x10 Normal 1.3-2.9 [facility] Comment on above: Performed By: #### 1 1259151, 26071938, 5625520, 0402940161, 07324289, 7075765, 5818547989, 3049799335, 0760957097, 4608335 #### [facility] (DEFAULT) [address] [place] [address] 60196 Lymphocytes/100 WBC (Bld) 35 % Normal 14-48 [facility] Comment on above: Performed By: #### 1 0161023, 63586558, 6724876, 1598304613, 06199795, 0569056, 7345339773, 6144151479, 1779208216, 3659206 #### [facility] (DEFAULT) [address] [place], [place] [address] Dixon Abs# 0.5 x10 Normal 0.0-0.8 [facility] Comment on above: Performed By: #### 1 7328783, 21801517, 9251693, 2196280476, 61822946, 5648345, 1815802439, 0495009069, 4005553264, 8378891 #### [facility] (DEFAULT) [address] [place] [address] Neut Abs# 3.2 x10 Normal 1.5-9.2 [facility] Comment on above: Performed By: #### 1 5033119, 04888700, 9331295, 2096231985, 93826866, 4398137, 4556356700, 4935262442, 5886337319, 7423427 #### [facility] (DEFAULT) [address] [place] [address] Neutrophils/100 WBC (Bld) 55 % Normal 44-88 [facility] Comment on above: Performed By: #### 1 1708539, 62452620, 8333970, 4124808098, 29272804, 3189937, 2121721629, 8625789447, 8869760085, 3053302 #### [facility] (DEFAULT) [address] [place] [address] ABORhon 03-09-2022 ABO and Rh group Nom (Bld) Hx Check: Not Found Anti-A: 4+ Anti-B: 0 Anti-D: 4+ DCon: 0 A1: mf+ B: 4+ ABORh Interp: A POS Invalid Interpretation Code [facility] Comment on above: Performed By: #### 1 1187221, 83648393, 7861183, 0468898011, 27002598, 0282755, 1439524981, 4199602124, 4158120867, 9278317 #### [facility] (DEFAULT) [address] [place] [address] 13669 ABORh Retypeon 03-09-2022 ABO and Rh group Nom (Bld) Ordered by Discern. Anti-A: 4+ Anti-B: 0 Anti-D: 4+ DCon: 0 A1: mf+ B: 4+ ABORh Retype: A POS Invalid Interpretation Code [facility] Comment on above: Performed By: #### 1 1686904, 48565357, 6059636, 9499866314, 25999418, 9811833, 8686355689, 2843650524, 3946469746, 4693013 ####[facility] (DEFAULT)[address] [place] [address] CBC w/ Auto Diffon Erythrocyte distribution width (RBC) [Ratio] 13.3 % Normal 11.5-15.0 [facility] Comment on above: Performed By: #### 1 3780168, 49373197, 8538988, 9858816971, 42040654, 2310670, 7847035424, 4813057515, 4443598571, 0223051 #### [facility] (DEFAULT) [address] [place] [address] Hematocrit (Bld) [Volume fraction] 43.5 % High 33.7-40.4 [facility] Comment on above: Performed By: #### 1 7510029, 78157181, 3596398, 7602977257, 61030543, 9129448, 5480053974, 8405758115, 0495589106, 0352445 #### [facility] (DEFAULT) [address] [place] [address] 82983 Hemoglobin (Bld) [Mass/Vol] 14.1 g/dL Normal 11.3-15.9 [facility] Comment on above: Performed By: #### 1 2281461, 24567811, 2082251, 7315124282, 47789794, 8827078, 2018954434, 4616618471, 8247690522, 6547966 #### [facility] (DEFAULT) [address] [place] [address] 30136 Instr WBC 5.7 x10 Invalid Interpretation Code [facility] Comment on above: Performed By: #### 1 4843844, 17916622, 1525452, 2687151689, 25175238, 1494646, 0434657300, 9601492643, 7693959390, 3204302 #### [facility] (DEFAULT) [address] [place] [address] 10569 Man Diff? Auto Normal [facility] Comment on above: Performed By: #### 1 7818389, 08939777, 4989736, 0099400559, 02804332, 8785498, 2018589464, 0104299516, 3802692103, 6935821 #### [facility] (DEFAULT) [address] [place] [address] 43748 MCH (RBC) [Entitic mass] 28 pg Normal 24-34 [facility] Comment on above: Performed By: #### 1 9820758, 76804718, 9954678, 0971240173, 10693738, 2777253, 6777392936, 4300306671, 1068482493, 7179965 #### [facility] (DEFAULT) [address] [place] [address] 35348 MCHC (RBC) [Mass/Vol] 32 g/dL Normal 26-37 [facility] Comment on above: Performed By: #### 1 0507685, 66727448, 8015592, 3948702927, 78814688, 5171133, 5682255635, 9612759296, 1086275925, 1817142 #### [facility] (DEFAULT) [address] [place] [address] 42864 MCV (RBC) [Entitic vol] 86 fL Normal 81-100 [facility] Comment on above: Performed By: #### 1 0747157, 78465029, 0218297, 6640889508, 83314606, 1476043, 7338250792, 8784838956, 4534693907, 2544727 #### [facility] (DEFAULT) [address] [place] [address] 70056 Platelet 324 x10 Normal 138-427 [facility] Comment on above: Performed By: #### 1 4533631, 65134548, 7256683, 5643915866, 17608118, 4129039, 7628164250, 7982995210, 0631122678, 7604419 #### [facility] (DEFAULT) [address] [place] [address] 92595 Platelet mean volume (Bld) [Entitic vol] 9.8 fL Normal 6.3-10.2 [facility] Comment on above: Performed By: #### 1 7995515, 11685618, 9720997, 6285160948, 78559248, 3551298, 7039261974, 0489761225, 2274233631, 6310178 #### [facility] (DEFAULT) [address] [place] [address] 15805 RBC 5.07 x10 Normal 3.70-5.30 [facility] Comment on above: Performed By: #### 1 7934981, 12014246, 1612135, 8733890752, 66003192, 5044714, 3694571944, 8429761422, 9293190583, 0529473 #### [facility] (DEFAULT) [address] [place] [address] 98443 WBC 5.7 x10 Normal 3.5-10.5 [facility] Comment on above: Performed By: #### 1 6418603, 08304351, 7795516, 5469344524, 98852034, 4308865, 5615060557, 9806078679, 3934611619, 3681791 #### [facility] (DEFAULT) [address] [place] [address] 28339 CMP Standardon 03-09-2022 eGFR Non AA >60 Invalid Interpretation Code [facility] Comment on above: Performed By: #### 1 6331905, 34056442, 0998128, 4297447706, 68335214, 6276162, 8367311718, 1958604222, 4651580420, 5972439 #### [facility] (DEFAULT) [address] [place] [address] 05212 eGFR AA >60 Invalid Interpretation Code [facility] Comment on above: Result Comment: Special Delivery Clerk susie Kidney disease could be indicated at eGFRs of less than 60 ml/min/1.73m2. Kidney Failure is indicated at less than 15 ml/min/1.73m2 Performed By: #### 1 5322414, 41785162, 8234841, 9882773855, 23661504, 2700837, 6117294656, 5127988516, 0484601713, 4551084 #### [facility] (DEFAULT) [address] [place] [address] 67871 Albumin [Mass/Vol] 4.5 g/dL Normal 3.5-5.0 [facility] Comment on above: Performed By: #### 1 9477249, 54630240, 1239212, 7405473159, 01983569, 2759346, 9889348311, 3568887146, 8912122882, 1375085 #### [facility] (DEFAULT) [address] [place] [address] 27960 Albumin/Globulin [Mass ratio] 1.2 {ratio} Low 1.4-2.6 [facility] Comment on above: Performed By: #### 1 0535402, 59730396, 0318329, 6174298914, 95937862, 9383388, 5502198430, 2279106606, 0717573881, 4474932 #### [facility] (DEFAULT) [address] [place] [address] 19700 Alk Phos 52 IU/L Normal 32-91 [facility] Comment on above: Performed By: #### 1 9140733, 51245797, 7516802, 6621130313, 85090572, 0242228, 7792614110, 6343374965, 3856806542, 5528762 #### [facility] (DEFAULT) [address] [place] [address] 68679 ALT [Catalytic activity/Vol] 37.0 U/L Normal 14.0-54.0 [facility] Comment on above: Performed By: #### 1 9265065, 04277760, 3716184, 3724829732, 17746809, 0320439, 6169105340, 9098673393, 7277490772, 7095767 #### [facility] (DEFAULT) [address] [place] [address] 47641 Anion gap [Moles/Vol] 18.0 mmol/L Normal 5.0-19.0 [facility] Comment on above: Performed By: #### 1 0572043, 60429408, 1135874, 0705991309, 16471107, 0163846, 8033616466, 9776714304, 1074592505, 1785749 #### [facility] (DEFAULT) [address] [place] [address] 80017 AST [Catalytic activity/Vol] 29 U/L Normal 15-41 [facility] Comment on above: Performed By: #### 1 9154871, 18741076, 4472897, 3258392708, 26378526, 3104435, 7800266397, 3312522704, 9909736264, 7195939 #### [facility] (DEFAULT) [address] [place] [address] 10681 Bili Total 0.7 mg/dL Normal 0.3-1.2 [facility] Comment on above: Performed By: #### 1 0139408, 17100555, 5455435, 6369477017, 00087148, 9832383, 7830667970, 8648881792, 5384435811, 9955351 #### [facility] (DEFAULT) [address] [place] [address] 30016 Calcium [Mass/Vol] 9.4 mg/dL Normal 8.9-10.3 [facility] Comment on above: Performed By: #### 1 8343541, 82582984, 8246435, 4753780708, 81100064, 8990074, 9494436965, 4179853215, 7457878750, 7353464 #### [facility] (DEFAULT) [address] [place] [address] 28032 Chloride [Moles/Vol] 100 mmol/L Low 101-111 [facility] Comment on above: Performed By: #### 1 2975180, 24375374, 8304177, 7737671101, 93013581, 9059317, 1968658284, 5603342541, 6336748860, 8345486 #### [facility] (DEFAULT) [address] [place] [address] 10656 CO2 [Moles/Vol] 24 mmol/L Normal 21-32 [facility] Comment on above: Performed By: #### 1 4210935, 34169830, 4598168, 3813897718, 29339868, 2708481, 6077480617, 7262508305, 1317611470, 7718522 #### [facility] (DEFAULT) [address] [place] [address] 29973 Creatinine [Mass/Vol] 0.75 mg/dL Normal 0.60-1.30 [facility] Comment on above: Performed By: #### 1 2645429, 22755172, 9463046, 0767728652, 80210623, 8583000, 2796634801, 3980938288, 0304833658, 1383565 #### [facility] (DEFAULT) [address] [place] [address] 03685 Globulin (S) [Mass/Vol] 3.9 g/dL Normal 1.5-4.3 [facility] Comment on above: Performed By: #### 1 7805798, 13035315, 1820341, 0664941526, 12746572, 6552478, 4384869686, 2458024952, 9352781724, 5184332 #### [facility] (DEFAULT) [address] [place] [address] 02232 Glucose [Mass/Vol] 98.0 mg/dL Normal 74.0-118.0 [facility] Comment on above: Performed By: #### 1 1804208, 72010769, 2368857, 7895129138, 79766843, 9486124, 5270217800, 0566870520, 2552405974, 2699528 #### [facility] (DEFAULT) [address] [place] [address] 57700 Osmolality 274 mOsm/L Invalid Interpretation Code [facility] Comment on above: Performed By: #### 1 1014537, 43793375, 9558929, 8273460191, 37092074, 3571808, 3450621357, 2156911427, 7588996220, 3528582 #### [facility] (DEFAULT) [address] [place] [address] 60012 Potassium [Moles/Vol] 3.5 mmol/L Low 3.6-5.1 [facility] Comment on above: Performed By: #### 1 6387293, 41068966, 4051381, 3603971193, 10968771, 2256017, 8258540162, 4420661306, 2402698291, 4442252 #### [facility] (DEFAULT) [address] [place] [address] 19580 Protein [Mass/Vol] 8.4 g/dL High 6.5-8.1 [facility] Comment on above: Performed By: #### 1 8819653, 31067332, 9212973, 2293120953, 93207120, 1416943, 4994436338, 9516993413, 8766851283, 9794857 #### [facility] (DEFAULT) [address] [place] [address] 19267 Sodium [Moles/Vol] 138.0 mmol/L Normal 136.0-144.0 [facility] Comment on above: Performed By: #### 1 2384111, 74346565, 4084456, 6756397676, 48395084, 7741741, 3186277625, 0457764224, 5284302032, 1865038 #### [facility] (DEFAULT) [address] [place] [address] 04689 Urea nitrogen [Mass/Vol] 7 mg/dL Low 8-26 [facility] Comment on above: Performed By: #### 1 1450282, 00995042, 4448746, 3187853793, 73231125, 5946038, 5237565703, 9892051419, 7043010382, 4840175 #### [facility] (DEFAULT) [address] [place] [address] 61370 Urea nitrogen/Creatinine [Mass ratio] 9.0 mg/mg Normal 4.6-16.2 [facility] Comment on above: Performed By: #### 1 9255246, 56477250, 1691320, 6913524788, 82635817, 8798938, 5090934539, 6656470641, 9082939234, 5502100 #### [facility] (DEFAULT) [address] [place] [address] 39234 ED Clinical Summaryon 2021 ED Clinical Summary [facility] - Emergency Department [address] [place] [address] 00558 ED Clinical Summary PERSON INFORMATION Name: DIANE JOYCE Age: 26 Years Sex: FEMALE : 1995 MRN: Acct#: Visit Reason: Vaginal bleeding - < 20 wks ; BLEEDING, Arrival: 03/09/2022 15:56:59 Discharge: 03/09/2022 18:28:00 LOS: 000 02:32 Check In: 03/09/2022 15:56:59 Checkout:03/09/2022 18:28:00 Address: [address] [place] [address] PCP: Provider, None PROVIDER INFORMATION Provider Role [...] or bladder. 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 Min, contacted his office and they [...] intact, SARINA: -Sclera conjunctiva: Unremarkable. NECK: -Supple (hodn-iv-yxnlx): non-tender. CARD: -Rate and rhythm: Regular -Edema: [...] the patient recommended close follow-up with her metal tile lather and outpatient beta hCG. In the meantime no strenuous ac (more content not included)... Normal [facility] ED Note - Physicianon 2021 ED [...] or bladder. 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 Min, contacted his office and they [...] intact, SARINA: -Sclera conjunctiva: Unremarkable. NECK: -Supple (ynod-sz-ymzmu): non-tender. CARD: -Rate and rhythm: Regular -Edema: [...] the patient recommended close follow-up with her metal tile lather and outpatient beta hCG. In the meantime no strenuous activity, sexual activity if having any worsening issues I recommended he return to the emergency department or going directly to metal tile lather. Patient indicated she understood was in agreement. [...] AA >60 (more content not included)... Normal [facility] ED Note-Nursingon 03-09-2022 Beta HCG ( test) Ql (U) Patient arrives with c/o vaginal bleeding during . States she took a at home test a week ago and estimates being 5 to 6 weeks along. Patient has some mild cramping yesterday 11/07 at has since went away and light vaginal bleeding today. This is the patients second , 1 live . Normal [facility] ED Patient Summaryon 022 ED Patient Summary [facility] - Emergency Department [address] [place], [place] [id number] PATIENT DISCHARGE INSTRUCTIONS Patient Information Name: DIANE JOYCE Age: 26 Years Date of : 1995 [facility]: [id number] Reason For Visit: Vaginal bleeding - < 20 wks ; BLEEDING, Arrival Time: 03/09/2022 15:56:59 Primary Care Physician: Provider, None Attending Physician: Adrian Rosales MD Comment: Visit Diagnosis: Diagnoses This Visit Elevated blood pressure reading (R03.0) First trimester (Z34.91) Threatened miscarriage in early (O20.0) Vaginal bleeding (N93.9) Vaginal bleeding - < 20 wks ([id number]) Prescription Information: If you have been given a prescription for narcotics, seek immediate medical attention if you have any difficulty breathing or any sudden status changes such as confusion and sleepiness. If you or anyone you know is experiencing suicidal thoughts, mental health, alcohol and/or drug addiction problems; contact the [facility] 21/05 Crisis Hotline -text 4hope to [...] documents With: Address: When: Follow-up with your metal tile lather for reevaluation next few days. Within 1 to 2 days Comments: Follow-up with metal tile lather for reevaluation next few days for reevaluation and outpatient quantitative hCG. Return immediately for any worsening issues such as increasing abdominal pains, increasing vaginal bleeding, fevers, or any other problems. 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 It is important for you to follow up with a doctor, nurse practitioner, or physician?s early childhood assistant for ongoing care. If your symptoms [...] so we can reach you if necessary. [facility] Emergency Department has provided you with a complete list of medications post discharge. Please inform your well logging captain mud analysis/provider of your visit and for further instruction [...] The sec (more content not included)... Normal [facility] Extra Greenon 03-09-2022 Tube Collected Yes Invalid Interpretation Code [facility] Comment on above: Performed By: #### 1 4654713, 86294740, 6982372, 7456422748, 72464165, 2536277, 7098474753, 4418462114, 5172878616, 5819986 #### [facility] (DEFAULT) [address] [place] [address] PT/PTTon 03-09-2022 INR Coag (PPP) [Relative time] 0.95 {INR} Normal 0.91-1.11 [facility] Comment on above: Performed By: #### 1 8518336, 56284907, 4323071, 2372107457, 08545854, 2838595, 0057154535, 9339282242, 3398266183, 6986403 #### [facility] (DEFAULT) [address] [place] [address] PT 10.3 second(s) Normal 9.7-11.8 [facility] Comment on above: Performed By: #### 1 6307527, 82535364, 8966568, 1438292759, 33449627, 3569769, 6103177892, 0494038571, 5736562400, 1642718 #### [facility] (DEFAULT) [address] [place] [address] PTT 34 second(s) Normal 25-35 [facility] Comment on above: Performed By: #### 1 7414632, 77441215, 7387339, 4775901367, 56053833, 7740850, 9416690435, 3873693744, 1932427304, 4570225 #### [facility] (DEFAULT) [address] [place] [address] RhIG.on 03-09-2022 RhIG. No. Vials RhI RhIG Candidate?: No Date to Give: 20220309 RhIG Status: RhIG Ready Normal [facility] Comment on above: Performed By: #### 1 9138683, 71176855, 6794638, 8893407529, 50136135, 6661675, 1816832055, 3891565830, 4237446384, 0217366 ####[facility] (DEFAULT)[address] [place] [address] UA Wbxix0xe 03-09-2022 UA Amorph. 1+ [facility] Comment on above: Order Comment: Urina lysis Microscopic order added on by Discern Expert Rules system. Performed By: #### 5 3128597, 5631657, [id number] ####[facility] (DEFAULT)[address] [place] [address] UA Bacteria 2+ [facility] Comment on above: Order Comment: Urina lysis Microscopic order added on by Discern Expert Rules system. Performed By: #### 5 3200390, 3555755, [id number] ####[facility] (DEFAULT)[address] [place] [address] UA Mucous 3+ [facility] Comment on above: Order Comment: Urina lysis Microscopic order added on by Discern Expert Rules system. Performed By: #### 5 4442726, 1978950, [id number] ####[facility] (DEFAULT)[address] [place] [address] UA RBC >100 [facility] Comment on above: Order Comment: Urina lysis Microscopic order added on by Discern Expert Rules system. Performed By: #### 5 5021102, 0882239, [id number] ####[facility] (DEFAULT)[address] [place] [address] UA Squam Epi Many [facility] Comment on above: Order Comment: Urina lysis Microscopic order added on by Discern Expert Rules system. Result Comment: DMITRY VERGARA RN IN ER. RUN UNINALYSIS AND CULTURE ON THIS SPECIMEN. NO RECOLLECT. Performed By: #### 5 5099059, 2471049, [id number] ####[facility] (DEFAULT)[address] [place] [address] UA WBC 3-5 [facility] Comment on above: Order Comment: Urina lysis Microscopic order added on by Discern Expert Rules system. Performed By: #### 5 [id number], [id number] ####[facility] (DEFAULT)[address] [place] [address] UA w Culture if Ind Standard on 03-09-2022 Breakpoint UA [facility] Comment on above: Performed By: #### 1 [id number], [id number], [id number], [id number], [id number], [id number], [id number], [id number], [id number], [id number] #### [facility] (DEFAULT) [address] [place] [id number] Color (U) Yellow [facility] Comment on above: Performed By: #### 1 [id number], [id number], [id number], [id number], [id number], [id number], [id number], [id number], [id number], [id number] #### [facility] (DEFAULT) [address] [place] [address] Culture? Indicated Invalid Interpretation Code [facility] Comment on above: Result Comment: Resu lt created by rule GL_MAGR_ADD_UA_CULT Result created by rule GL_MAGR_ADD_UA_CULT Result created by rule GL_MAGR_ADD_UA_CULT1 Result created by rule GL_MAGR_ADD_UA_CULT Performed By: #### 1 [id number], [id number], 3559975, [id number], 14453521, 2914519, [id number], [id number], [id number], [id number] #### [facility] (DEFAULT) [address] [place] [id number] Glucose (U) [Mass/Vol] Negative [facility] Comment on above: Performed By: #### 1 [id number], [id number], [id number], [id number], [id number], 0450273, [id number], [id number], [id number], [id number] #### [facility] (DEFAULT) [address] [place] [id number] Ketones Ql (U) 40 [facility] Comment on above: Performed By: #### 1 [id number], [id number], 6802463, [id number], [id number], 6283898, [id number], [id number], [id number], [id number] #### [facility] (DEFAULT) [address] [place] [address] Micro? Indicated Invalid Interpretation Code [facility] Comment on above: Result Comment: Resu lt created by rule GL_MAGR_ADD_UA_MICRO Performed By: #### 1 [id number], [id number], 7526859, [id number], 97099528, 3305895, [id number], [id number], [id number], [id number] #### [facility] (DEFAULT) [address] [place] [address] 41176 UA Bilirubin Negative Normal [facility] Comment on above: Performed By: #### 1 [id number], 32625254, 1775993, [id number], 36253559, 9034292, 1543400135, [id number], [id number], 4939379 #### [facility] (DEFAULT) [address] [place] [address] 26768 UA Blood LARGE Abnormal NEGATIVE [facility] Comment on above: Performed By: #### 1 [id number], [id number], 0278723, [id number], 57887146, 9240143, 1707602753, 1930178224, 3224163889, [id number] #### [facility] (DEFAULT) [address] [place] [address]295 UA Clarity SL CLOUDY Abnormal CLEAR [facility] Comment on above: Performed By: #### 1 [id number], 16802547, 5223020, 8756035058, 04919611, 3722160, [id number], 0662949013, [id number], 8299438 #### [facility] (DEFAULT) [address] [place] [address] 89437 UA Leuk Est TRACE Abnormal NEGATIVE [facility] Comment on above: Performed By: #### 1 [id number], 51409504, 2417492, [id number], 16524260, 7581368, 3539977910, 0043594828, 1505492447, 0510830 #### [facility] (DEFAULT) [address] [place] [address] UA Nitrite Negative Normal NEGATIVE [facility] Comment on above: Performed By: #### 1 1540157, 33899376, 2658346, 9538613367, 36915878, 8405942, 7021252957, 4177799788, 0925293814, 5895486 #### [facility] (DEFAULT) [address] [place] [address] 64981 UA pH 6.5 Normal 5-8 [facility] Comment on above: Performed By: #### 1 [id number], 37303701, 7712485, 9299593837, 15962714, 1648735, 7290631041, 0534162074, 4620002523, 1069978 #### [facility] (DEFAULT) [address] [place] [address] UA Protein Negative Normal NEGATIVE [facility] Comment on above: Performed By: #### 1 [id number], 49786924, 5857053, 5680679398, 18575255, 5091466, 0519710543, 9915414364, 0751228106, 6497245 #### [facility] (DEFAULT) [address] [place] [address] UA Spec Grav 1.015 Normal 1.001-1.035 [facility] Comment on above: Performed By: #### 1 [id number], 20427694, 3811436, 0495876435, 23995451, 6520635, 6641953754, 8054702051, 7051681756, 6254882 #### [facility] (DEFAULT) [address] [place] [address] UA Urobilinogen 0.2 mg/dL Normal 0.2-1.0 [facility] Comment on above: Performed By: #### 1 [id number], 04921182, 9131748, 2367211124, 64970343, 0797472, 8980547894, 3086780498, 9315508661, 0578094 #### [facility] (DEFAULT) [address] [place] [address] Urine Source Clean Catch [facility] Comment on above: Performed By: #### 1 [id number], 14939031, 1618338, 2266249082, 78119444, 6146753, 0380269182, 8206489505, 5431908291, 4975419 #### [facility] (DEFAULT) [address] [place] [address] US 1st Trimesteron 03-09-2022 US 1st Trimester [...] Sebastian Guzman 03/09/22 6:10 pm Technologist: PM [facility] US Transvaginalon 03-09-2022 US Transvaginal EXAM: [...] Guzman 03/09/22 6:10 pm Technologist: PM Normal [facility] hCG Quantitativeon hCG Quantitative 7.1 mIU/mL High 0.0-0.6 [facility] Comment on above: Result Comment: Post -Menopausal Reference Range is: 0.1-11.6 mIU/mL Performed By: #### 1 [id number], 42837672, 5697738, 8916113059, 24446585, 8631823, 8218477636, 5559862777, 7483085780, 6725604 #### [facility] (DEFAULT) [address] [place] [address] Vital Signs Date Time Vital Sign Value Performing Clinician Facility 12-13-2023 15:00-0500 Body mass index (BMI) [Ratio] 46.69 kg/m2 [facility] Nurse [facility] 12-13-2023 15:00-0500 Body weight 123.38 kg [facility] Nurse [facility] 12-13-2023 15:00-0500 Diastolic blood pressure 78 mm[Hg] [facility] 12-13-2023 15:00-0500 Systolic blood pressure 128 mm[Hg] [facility] Nurse [facility] 05-15-2023 18:30-0400 Body height 161.29 cm Linsey Witt Other [facility] Other 05-15-2023 18:30-0400 Body mass index (BMI) [Ratio] 43.41 kg/m2 Linsey Eduar Other [facility] Other 05-15-2023 18:30-0400 Body temperature 99.2 [degF] Linsey Witt Other [facility] Other 05-15-2023 18:30-0400 Body weight 112.95 kg Linsey Eduar Other [facility] Other 05-15-2023 18:30-0400 Respiratory rate 18 /min Linsye Witt Other [facility] Other 05-15-2023 18:30-0400 SaO2% (BldA) [Mass fraction] 99 % Linsey Witt Other [facility] Other 05-09-2023 11:00-0400 Body height 161.29 cm Gissel Santana Other [facility] Other 05-09-2023 11:00-0400 Body mass index (BMI) [Ratio] 43.59 kg/m2 Gissel Santana Other [facility] Other 05-09-2023 11:00-0400 Body weight 113.4 kg Gissel Santana Other [facility] Other 05-09-2023 11:00-0400 Diastolic blood pressure 83 mm[Hg] Gissel Santana Other [facility] Other 05-09-2023 11:00-0400 Systolic blood pressure 119 mm[Hg] Gissel Santana Other [facility] Other 04-12-2023 09:00-0400 Body height 161.29 cm Gissel Santana Other [facility] Other 04-12-2023 09:00-0400 Body mass index (BMI) [Ratio] 43.59 kg/m2 Gissel Santana Other [facility] Other 04-12-2023 09:00-0400 Body weight 113.4 kg Gissel Santana Other [facility] Other 04-12-2023 09:00-0400 Diastolic blood pressure 88 mm[Hg] Gissel Santana Other [facility] Other 04-12-2023 09:00-0400 Systolic blood pressure 129 mm[Hg] Gissel Santana Other [facility] Other 10-11-2022 02:06-0500 Body weight 111.[address] ESTELLA MIN . [facility] Comment on above: Performed By: #### AFPMAT #### [facility] [address] [place] [address] Dr. Alexsander Dickinson Encounters Encounter Date Encounter [...] 11-06-2023 End: 11-06-2023 ambulatory Gissel Santana Other [facility] Other Start: 11-06-2023 Encounter by donald Santana [facility] Start: 05-22-2023 End: 05-22-2023 ambulatory Olive Howard Other [facility] Other Start: 05-22-2023 Telephone encounter Olive Howard [facility] Start: 05-15-2023 End: 05-15-2023 ambulatory Linsey Witt Facility:[facility] Start: 05-15-2023 End: 05-15-2023 Departed Referred [facility] Linsey Witt Work Phone: [facility] [place] Work Phone: Start: 05-15-2023 End: 05-15-2023 ambulatory [facility] Linsey Witt Work Phone: [facility] Work Phone: Start: 05-15-2023 Office outpatient vi sit 25 minutes Linsey Witt [facility] Start: 05-09-2023 End: 05-09-2023 ambulatory Gissel Santana Other [facility] Other Start: 05-09-2023 Office outpatient vi sit 15 minutes Gissel Santana [facility] Start: 04-12-2023 End: 04-12-2023 ambulatory Gissel Santana Other [facility] Other Start: 04-12-2023 Encounter for genera l adult medical examination without abnormal findings Gissel Santana [facility] Start: 04-12-2023 Periodic preventive med est patient 18-39 yrs Gissel Santana [facility] Start: 02-15-[address] ESTELLA MIN [...] Conception, Low Cervical, Open Approach DR ESTELLA MNI . Throat culture Linsey Witt Other Plan of Treatment Date Care Activity Detail Author Start: 01-14-2024 End: 01-14-2024 Patient encounter procedure 01/14/2024 8:30 AM EDT Routine [facility] [address] [place] [id number] Estella Min, DO [address] [address] [facility] OB Start: 12-13-2023 End: 12-13-2024 ABO/Rh ABO/Rh Lab Routine Missed menses Expected: 12/13/2023 (Approximate), Expires: 12/13/2024 [facility] Comment on above: Expected: 12/13/2023 (Approximate), Expires: 12/13/2024 Start: 12-13-2023 End: 12-13-2024 Blood type and Indirect antibody screen panel - Blood Type and screen Lab Routine Missed menses Expected: 12/13/2023 (Approximate), Expires: 12/13/2024 [facility] Work Phone: Comment on above: Expected: 12/13/2023 (Approximate), Expires: 12/13/2024 Start: 12-13-2023 End: 12-13-2024 Thyroid panel with tsh Thyroid panel with tsh Lab Routine Missed menses Expected: 12/13/2023 (Approximate), Expires: 12/13/2024 [facility] Comment on above: Expected: 12/13/2023 (Approximate), Expires: 12/13/2024 Start: 12-13-2023 End: 12-13-2024 US Pelvis transvaginal US OB transvaginal Imaging Routine Missed menses Expected: 12/13/2023 (Approximate), Expires: 12/13/2024 [facility] Comment on above: Expected: 12/13/2023 (Approximate), Expires: 12/13/2024 Start: 05-15-2023 Throat culture Throat Culture [facility] Bacteria identified in Urine by Culture Urine culture Microbiology Routine Missed menses Ordered: 12/13/2023 [facility] Comment on above: Ordered: 12/13/2023 CBC W Auto Different ial panel - Blood CBC and differential Lab Routine Missed menses Ordered: 12/13/2023 [facility] Comment on above: Ordered: 12/13/2023 Hemoglobin A1c/Hemoglobin.total in Blood Hemoglobin A1c Lab Routine Missed menses Ordered: 12/13/2023 [facility] Comment on above: Ordered: 12/13/2023 Hepatitis B virus surface Ag [Presence] in Serum or Plasma by Immunoassay Hepatitis B surface antigen Lab Routine Missed menses Ordered: 12/13/2023 [facility] Comment on above: Ordered: 12/13/2023 Hepatitis C virus Ab [Presence] in Serum or Plasma by Immunoassay Hepatitis C antibody Lab Routine Missed menses Ordered: 12/13/2023 [facility] Comment on above: Ordered: 12/13/2023 HIV-1/HIV-2 antigen/antibody combination immunoassay HIV-1 and HIV-2 antibodies Lab Routine Missed menses Ordered: 12/13/2023 [facility] Comment on above: Ordered: 12/13/2023 Reagin Ab [Presence] in Serum by RPR RPR Lab Routine Missed menses Ordered: 12/13/2023 [facility] Comment on above: Ordered: 12/13/2023 Rubella antibody, IgG Rubella an tibody, IgG Lab Routine Missed menses Ordered: 12/13/2023 [facility] Comment on above: Ordered: 12/13/2023 Payers Date Payer Category Payer Unknown BCBS BCBS xxxxxx [id number] 2020-Present [phone] [address] [place] [address] [id number] 1994 Unknown [id number] 2.16.840.1.528666.3.579.2.593 1994 Unknown [id number] 2.16.840.1.555621.3.579.2.593 1994 Unknown [id number] 2.16.840.1.254618.3.579.2.593 1994 Unknown [id number] 2.16.840.1.588605.3.579.2.593 1994 Unknown [id number] 2.16.840.1.326270.3.579.2.593 1994 Unknown [id number] 2.16.840.1.449999.3.579.2.593 1994 Unknown [id number] 2.16.840.1.940967.3.579.2.593 1994 Unknown [id number] 2.16.840.1.522172.3.579.2.593 1994 Unknown [id number] 2.16.840.1.929209.3.579.2.593 1994 Unknown [id number] 2.16.840.1.335654.3.579.2.593 1994 Unknown [id number] 2.16.840.1.941991.3.579.2.593 1994 Unknown [id number] 2.16.840.1.989997.3.579.2.593 1994 Unknown [id number] 2.16.840.1.525498.3.579.2.593 1994 Unknown [id number] 2.16.840.1.175845.3.579.2.593 1994 Unknown [id number] 2.16.840.1.753180.3.579.2.593 1994 Unknown [id number] 2.16.840.1.109106.3.579.2.593 1994 Unknown [id number] 2.16.840.1.232481.3.579.2.593 1994 Unknown [id number] 2.16.840.1.411650.3.579.2.593 1994 Unknown [id number] 2.16.840.1.616485.3.579.2.593 1994 Unknown [id number] 2.16.840.1.928809.3.579.2.593 1994 Unknown [id number] 2.16.840.1.234115.3.579.2.593 1994 Unknown [id number] 2.16.840.1.243549.3.579.2.593 1994 Unknown [id number] 2.16.840.1.883791.3.579.2.593 1994 Unknown [id number] 2.16.840.1.291643.3.579.2.593 1994 Unknown [id number] 2.16.840.1.010027.3.579.2.1259 1994 Unknown [id number] 2.16.840.1.561258.3.579.2.1259 1994 Unknown [id number] 2.16.840.1.552687.3.579.2.1259 1994 Unknown [id number] 2.16.840.1.068065.3.579.2.1259 1994 Unknown [id number] 2.16.840.1.942283.3.579.2.1259 1994 Unknown [id number] 2.16.840.1.300558.3.579.2.1259 1994 Unknown [id number] 2.16.840.1.053227.3.579.2.1259 1959 Self-pay 1960 Unknown [id number] Unknown [id number] 2.16.840.1.093224.3.579.2.593 Unknown [id number] 2.16.840.1.873681.3.579.2.531 Social History Date Type Detail Facility Unknown if ever smoked [facility] [employer] Other Start: 03-12-2023 Sex Assigned At N [facility] [employer] Other Start: 1995 Sex Assigned At Female F [facility] Start: 03-12-2023 Tobacco smoking status NHIS Never [...] or undercooked meat, and stay away from [facility]. Patient has also been advised to [...] Meenakshi Rosenthal MA documented in this encounter [facility] 05-15-2023 Evaluation note Encounter Date Diagnosis [...] understanding and is agreeable to treatment plan. [facility] [facility] Other 07-12-2023 Evaluation note* Encounter Date Diagnosis Assessment Notes Treatment Notes Treatment Clinical Notes Apr, Anxiety disorder, unspecified (ICD-10 - F41.9) Pt states that she, and her , agree that she is doing better on the medication. Continues to have stress, but is dealing more appropriately. Would like to continue this med and this dose. f/u6 months, sooner if needed. [facility] [facility] Other 06-15-2023 Evaluation note* Encounter Date Diagnosis [...] help for overwhelm. followup in 1 month [employer] [facility] Other 05-12-2022 NoteEducation Materials Cardiovascular Hypertension, Adult [...] without skin, beans, e (more content not included)...[facility] noteNo assessment information available[facility] Work Phone: Evaluation noteNo InformationNortH[facility] [employer] Other Evaluation note* Diagnosis Missed menses documented in this encounter [facility] HealthcareHistory general Narrative - Reported* Type Description Date Surgical History C-sect 2019 Surgical History C-sect 2022 [facility] [employer] [facility] Other History general Narrative - Reported* Type Description Date Medical History Anxiety disorder, unspecified Surgical History C-sect 2019 Surgical History C-sect 2022 Hospitalization History SEE SURGICAL [facility] [facility] Other History general Narrative - Reported* Type Description Date Medical History Anxiety disorder, unspecified Medical History Gestational diabetes Surgical History C-sect 2019 Surgical History C-sect 2022 Hospitalization History SEE SURGICAL [facility] [employer] [facility] Other Summary Purpose Family History No Family History Records FoundNo Family History Records FoundNo Family History Records FoundNo Family History Records Found Advance Directives No Advanced Directives Records FoundNo Advanced Directives Records FoundNo Advanced Directives Records FoundNo Advanced Directives Records Found Additional Source Comments INFORMATION SOURCE (unrecogn ized section and content) DATE CREATED AUTHOR 03/18/2022 [facility] DATE CREATED AUTHOR AUTHOR'S ORGANIZ ATION [facility]/15/2023 [facility] DATE CREATED AUTHOR AUTHOR'S ORGANIZ ATION 05/24/2023 [facility] DATE CREATED AUTHOR AUTHOR'S ORGANIZ ATION 05/21/2024 [facility] EPIC REASON FOR VISIT (unrecogniz ed section and content) Reason Comments Amenorrhea Care Teams (unrecognized sec tion and content) Team Status: Inactive Member Role Status Dates Linsey Witt APRN Attending Provider Active Company Driver Relationship Specialty Start Date End Date Gissel Santana MD [address] [place] [address] PCP - General Family Medicine [...] BE BASED ON THE PRIMARY CLINICAL RECORDS. [facility]. provides no warranty or guarantee of the accuracy or completeness of information in this document.
--- NOTE | 2024-05-28 11:00 | US_ITS ---
[address] [address] Patient Name: VADIM CONSTANTINO MRN: [id number] date: 1995 Sex: F Assigned Patient Location: [facility] Current Patient Location: [facility] Accession/Order Number: [id number] Exam Date: 05/28/2024 11:01 Report Date: 05/28/2024 11:35 At the request of: ESTELLA BUENO Procedure: US OB BPP w non-stress EXAMINATION: US OB BPP w non-stress HISTORY: Gestational diabetes mellitus COMPARISON: No relevant comparison available. TECHNIQUE: Ultrasound biophysical profile was performed in the radiology department. non-reactive stress testing was performed by nursing staff in the birthing center. FINDINGS: BREATHING MOVEMENTS: 2 GROSS BODY MOVEMENTS: 2 TONE: 2 QUALITATIVE AMNIOTIC FLUID VOLUME: 2 PRESENTATION: CEPHALIC HEART RATE: 200.54 bpm AMNIOTIC FLUID VOLUME: 18.5cm GESTATIONAL AGE: 32w6d US/US OB BPP w non-stress IMPRESSION: Total biophysical profile score: 8 Electronically authenticated by: SEBASTIAN HENRY Date: 05/28/2024 11:35
[2024-05-28 11:16] VITALS: BP 130/79; PULSE 103
== END 2024-05-28 11:37 | disposition home or self-care (01) ==
LOC: US 07:02 → FBC 10:58
PROVIDERS: Visit Provider Obstetrics & Gynecology
DX: O24.419 Gestational diabetes mellitus in pregnancy, unspecified control (principal); Z3A.32 32 weeks gestation of pregnancy
CPT/HCPCS: 76818

== ENCOUNTER 2024-05-31 06:37 | Outpatient (OUT) | payer BC, SELFPAY ==
--- OUTSIDE RECORDS SUMMARY | 2024-05-31 06:39 | XMS_ITS | CCD ---
Author Organization [facility] Care Team Providers Care Back Up Scan Coordinator Name Role Phone MECHELLE ., DR SORIA Attending Unavailable SANTANA, DR GISSEL Teresa Primary Care Unavailable MECHELLE ., DR SORIA Consulting Unavailable MECHELLE ., DR SORIA Admitting Unavailable SANTANA, DR GISSEL Teresa Primary Care Unavailable MECHELLE ., DR OSRIA Attending Unavailable MECHELLE ., DR SORIA Consulting Unavailable MECHELLE ., DR SORIA Admitting Unavailable MECHELLE ., DR SORIA Attending Unavailable SANTANA, DR GISSEL Teresa Primary Care Unavailable MECHELLE ., DR SORIA Consulting Unavailable MECHELLE ., DR SORIA Admitting Unavailable ZIEBER, DR DEE Green Consulting Unavailable SANTANA, DR GISSEL eTresa Primary [...] Unavailable MECHELLE ., DR SORIA Admitting Unavailable Sharon, Sebastian Consulting Unavailable SANTANA, DR GISSEL Teresa [...] Unavailable Gissel Santana MD Primary Care Provider [phone] ESTELLA MIN Attending Unavailable ESTELLA MIN Attending [...] Interpretation and review of laboratory results Abnormal [facility] Healthca re Preg Test, Ur Positive [facility] Urinalysis macro (dipstick) panel (U)on 12-13-2023 Bilirubin, UA Negative Negative - 4(70) +++ mg/dL [facility] Blood, UA Negative Negative - 50 Sal/mcL [facility] Clarity, UA Clear [facility] re Color, UA Yellow [facility]car [facility] Glucose, UA Negative Negative - 1999(110) ++++ mg/dL [facility] Interpretation and review of laboratory results Abnormal [facility] re Ketones, UA Positive Negative - 160(16) ++++ mg/dL [facility] Leukocytes, UA Negative Negative - 500+++ Lizzy/mcL [facility] Nitrite, UA Negative Negative - Positive [facility] pH, UA 7.0 5 - 9 [facility] Healthcar e Protein, UA Positive Negative - 1999(20) ++++ mg/dL [facility] Spec Grav, UA 1.030 1 - 1.03 [facility] Urobilinogen, UA 0.2 0.2 - 12 mg/dL [facility] Quick Strepon 05-15-2023 S. pyogenes Org specific cx Ql (Throat) Negative [facility] Other Quick Strep [facility] Other Throat Cultureon 05-15-2023 Throat culture Heavy Normal Respiratory John 2 Days PERFORMED BY: [place] [address] [place] [address] PATHOLOGIST INFECTION CONTROL COORDINATOR ARACELI HAYWOOD M.D. Normal [facility] Comment on above: Performed By: #### C MI #### [facility] [address] GROUP B STREP CULTUREon 01-27 S. [...] F Tetracycline <=0.25 S F Normal [facility] Comment on above: Performed By: #### A FPMAT #### [facility] [address] [place] [address] Dr. Alexsander Dickinson CBC AUTO DIFFon 02-02-2023 BASO # 0.0 103/ul Normal 0.0-0.1 [facility] Comment on above: Performed By: #### C BC #### [facility] [address] [place] [address] Dr. Alexsander Dickinson Basophils/100 WBC (Bld) 0.2 % Normal 0.2-2.0 [facility] Comment on above: Performed By: #### C BC #### [facility] [address] [place] [address] Dr. Alexsander Dickinson EO # 0.0 103/ul Normal 0.0-0.7 [facility] Comment on above: Performed By: #### C BC #### [facility] [address] [place] [address] Dr. Alexsander Dickinson Eosinophils/100 WBC (Bld) 0.0 % Critically low 0.9-7.0 [facility] Comment on above: Performed By: #### C BC #### [facility] [address] [place] [address] Dr. Alexsander Dickinson Erythrocyte distribution width (RBC) [Ratio] 12.5 % Normal 11.0-15.0 [facility] Comment on above: Performed By: #### C BC #### [facility] [address] [address] [address] Alexsander Dickinson Hematocrit (Bld) [Volume fraction] 32.9 % Critically low 36.0-48.0 [facility] Comment on above: Performed By: #### C BC #### [facility] [address] [place] [address] Dr. Alexsander Dickinson Hemoglobin (Bld) [Mass/Vol] 10.7 g/dL Critically low 12.0-16.0 [facility] Comment on above: Performed By: #### C BC #### [facility] [address] [place] [address] Dr. Alexsander Dickinson IG # 0.12 10e3/ul Critically high 0.00-0.03 [facility] Comment on above: Performed By: #### C BC #### [facility] [address] [place] [address] Dr. Alexsander Dickinson IG % 0.7 % Critically high 0.0-0.5 [facility] Comment on above: Performed By: #### C BC #### [facility] [address] [place] [address] Dr. Alexsander Dickinson LYMPH # 1.1 103/ul Critically low 1.2-3.8 [facility] Comment on above: Performed By: #### C BC #### [facility] [address] [place] [address] Dr. Alexsander Dickinson Lymphocytes/100 WBC (Bld) 6.4 % Critically low 20.5-60.0 [facility] Comment on above: Performed By: #### C BC #### [facility] [address] [place] [address] Dr. Alexsander Dickinson MANUAL DIFF REQ NO Normal [facility] Comment on above: Performed By: #### C BC #### [facility] [address] [place] [address] Dr. Alexsander Dickinson MCH (RBC) [Entitic mass] 26.1 pg Critically low 26.7-34.0 [facility] Comment on above: Performed By: #### C BC #### [facility] [address] [address] [address] Alexsander Dickinson MCHC (RBC) [Mass/Vol] 32.5 g/dL Normal 29.9-35.2 [facility] Comment on above: Performed By: #### C BC #### [facility] [address] [address] [address] Alexsander Dickinson MCV (RBC) [Entitic vol] 80.2 fL Critically low 81.0-99.0 [facility] Comment on above: Performed By: #### C BC #### [facility] [address] [address] [address] Alexsander Dickinson MONO # 0.4 103/ul Normal 0.3-0.8 [facility] Comment on above: Performed By: #### C BC #### [facility] [address] [place] [address] Dr. Alexsander Dickinson Monocytes/100 WBC (Bld) 2.1 % Normal 1.7-12.0 [facility] Comment on above: Performed By: #### C BC #### [facility] [address] [place] [address] Dr. Alexsander Dickinson NEUT # 15.5 103/ul Critically high 1.4-6.5 [facility] Comment on above: Performed By: #### C BC #### [facility] [address] [place] [address] Dr. Alexsander Dickinson Neutrophils/100 WBC (Bld) 90.6 % Critically high 43.0-75.0 [facility] Comment on above: Performed By: #### C BC #### [facility] [address] [place] [address] Dr. Alexsander Dickinson Platelet mean volume (Bld) [Entitic vol] 10.7 fL Normal 9.5-13.5 [facility] Comment on above: Performed By: #### C BC #### [facility] [address] [place] [address] Dr. Alexsander Dickinson PLT 310 103/ul Normal 150-450 [facility] Comment on above: Performed By: #### C BC #### [facility] [address] [address] [address] Alexsander Dickinson RBC 4.10 106/ul Critically low 4.20-5.40 [facility] Comment on above: Performed By: #### C BC #### [facility] [address] [address] [address] Alexsander Dickinson WBC 17.1 103/ul Critically high 4.0-11.0 [facility] Comment on above: Performed By: #### C BC #### [facility] [address] [place] [address] Dr. Alexsander Dickinson CBC AUTO DIFFon 02-01-2023 BASO # 0.0 103/ul Normal 0.0-0.1 [facility] Comment on above: Performed By: #### A 1C #### [facility] [address] [place] [address] Dr. Alexsander Dickinson Basophils/100 WBC (Bld) 0.2 % Normal 0.2-2.0 [facility] Comment on above: Performed By: #### A 1C #### [facility] [address] [place] [address] Dr. Alexsander Dickinson EO # 0.0 103/ul Normal 0.0-0.7 [facility] Comment on above: Performed By: #### A 1C #### [facility] [address] [place] [address] Dr. Alexsander Dickinson Eosinophils/100 WBC (Bld) 0.4 % Critically low 0.9-7.0 [facility] Comment on above: Performed By: #### A 1C #### [facility] [address] [place] [address] Dr. Alexsander Dickinson Erythrocyte distribution width (RBC) [Ratio] 12.9 % Normal 11.0-15.0 [facility] Comment on above: Performed By: #### A 1C #### [facility] [address] [place] [address] Dr. Alexsander Dickinson Hematocrit (Bld) [Volume fraction] 34.2 % Critically low 36.0-48.0 [facility] Comment on above: Performed By: #### A 1C #### [facility] [address] [address] [address] Alexsander Dickinson Hemoglobin (Bld) [Mass/Vol] 11.4 g/dL Critically low 12.0-16.0 [facility] Comment on above: Performed By: #### A 1C #### [facility] [address] [address] [address] Alexsander Dickinson IG # 0.04 10e3/ul Critically high 0.00-0.03 [facility] Comment on above: Performed By: #### A 1C #### [facility] [address] [place] [address] Dr. Alexsander Dickinson IG % 0.5 % Normal 0.0-0.5 [facility] Comment on above: Performed By: #### A 1C #### [facility] [address] [place] [address] Dr. Alexsander Dickinson LYMPH # 2.1 103/ul Normal 1.2-3.8 [facility] Comment on above: Performed By: #### A 1C #### [facility] [address] [place] [address] Dr. Alexsander Dickinson Lymphocytes/100 WBC (Bld) 23.9 % Normal 20.5-60.0 [facility] Comment on above: Performed By: #### A 1C #### [facility] [address] [place] [address] Dr. Alexsander Dickinson MANUAL DIFF REQ NO Normal [facility] Comment on above: Performed By: #### A 1C #### [facility] [address] [place] [address] Dr. Alexsander Dickinson MCH (RBC) [Entitic mass] 27.0 pg Normal 26.7-34.0 [facility] Comment on above: Performed By: #### A 1C #### [facility] [address] [place] [address] Dr. Alexsander Dickinson MCHC (RBC) [Mass/Vol] 33.3 g/dL Normal 29.9-35.2 [facility] Comment on above: Performed By: #### A 1C #### [facility] [address] [place] [address] Dr. Alexsander Dickinson MCV (RBC) [Entitic vol] 81.0 fL Normal 81.0-99.0 [facility] Comment on above: Performed By: #### A 1C #### [facility] [address] [place] [address] Dr. Alexsander Dickinson MONO # 0.5 103/ul Normal 0.3-0.8 [facility] Comment on above: Performed By: #### A 1C #### [facility] [address] [place] [address] Dr. Alexsander Dickinson Monocytes/100 WBC (Bld) 6.0 % Normal 1.7-12.0 [facility] Comment on above: Performed By: #### A 1C #### [facility] [address] [place] [address] Dr. Alexsander Dickinson NEUT # 5.9 103/ul Normal 1.4-6.5 [facility] Comment on above: Performed By: #### A 1C #### [facility] [address] [place] [address] Dr. Alexsander Dickinson Neutrophils/100 WBC (Bld) 69.0 % Normal 43.0-75.0 [facility] Comment on above: Performed By: #### A 1C #### [facility] [address] [place] [address] Dr. Alexsander Dickinson Platelet mean volume (Bld) [Entitic vol] 10.5 fL Normal 9.5-13.5 [facility] Comment on above: Performed By: #### A 1C #### [facility] [address] [place] [address] Dr. Alexsander Dickinson PLT 275 103/ul Normal 150-450 [facility] Comment on above: Performed By: #### A 1C #### [facility] [address] [place] [address] Dr. Alexsander Dickinson RBC 4.22 106/ul Normal 4.20-5.40 [facility] Comment on above: Performed By: #### A 1C #### [facility] [address] [place] [address] Dr. Alexsander Dickinson WBC 8.6 103/ul Normal 4.0-11.0 [facility] Comment on above: Performed By: #### A 1C #### [facility] [address] [place] [address] Dr. Alexsander Dickinson LDHon 02-01-2023 LDH 124 U/L Normal 81-234 [facility] Comment on above: Performed By: #### C MP, LDH, URIC #### [facility] [address] [place] [address] Dr. Alexsander Dickinson POINT OF CARE GLUCOSEon Glucose [Mass/Vol] 98 mg/dL Normal 74-106 [facility] Comment on above: Performed By: #### A 1C #### [facility] [address] [place] [address] Dr. Alexsander Dickinson PROF 14(COMP METB)on 023 Albumin [Mass/Vol] 2.5 g/dL Critically low 3.4-5.0 [facility] Comment on above: Performed By: #### C MP, LDH, URIC #### [facility] [address] [place] [address] Dr. Alexsander Dickinson Albumin/Globulin [Mass ratio] 0.6 {ratio} Normal [facility] Comment on above: Performed By: #### C MP, LDH, URIC #### [facility] [address] [place] [address] Dr. Alexsander Dickinson ALP [Catalytic activity/Vol] 138 U/L Critically high 46-116 [facility] Comment on above: Performed By: #### C MP, LDH, URIC #### [facility] [address] [place] [address] Dr. Alexsander Dickinson ALT [Catalytic activity/Vol] 15 U/L Normal 14-59 [facility] Comment on above: Performed By: #### C MP, LDH, URIC #### [facility] [address] [place] [address] Dr. Alexsander Dickinson Anion gap [Moles/Vol] 14.5 mmol/L Normal [facility] Comment on above: Performed By: #### C MP, LDH, URIC #### [facility] [address] [address] [address] Alexsander Dickinson AST [Catalytic activity/Vol] 8 U/L Critically low 15-37 [facility] Comment on above: Performed By: #### C MP, LDH, URIC #### [facility] [address] [address] [address] Alexsander Dickinson Bilirubin [Mass/Vol] 0.2 mg/dL Normal 0.2-1.0 [facility] Comment on above: Performed By: #### C MP, LDH, URIC #### [facility] [address] [address] [address] Alexsander Dickinson Calcium [Mass/Vol] 8.6 mg/dL Normal 8.5-10.1 [facility] Comment on above: Performed By: #### C MP, LDH, URIC #### [facility] [address] [place] [address] Dr. Alexsander Dickinson Chloride [Moles/Vol] 103 mmol/L Normal 98-107 [facility] Comment on above: Performed By: #### C MP, LDH, URIC #### [facility] [address] [address] [address] Alexsander Dickinson CO2 [Moles/Vol] 23.7 mmol/L Normal 21.0-32.0 [facility] Comment on above: Performed By: #### C MP, LDH, URIC #### [facility] [address] [address] [address] Alexsander Dickinson Creatinine [Mass/Vol] 0.61 mg/dL Normal 0.55-1.02 [facility] Comment on above: Performed By: #### C MP, LDH, URIC #### [facility] [address] [address] [address] Alexsander Dickinson EGFR-AF ENGLISH >60 Normal >=60 [facility] Comment on above: Performed By: #### C MP, LDH, URIC #### [facility] [address] [place] [address] Dr. Alexsander Dickinson EGFR-NON AF ENGLISH >60 Normal >=60 [facility] Comment on above: Performed By: #### C MP, LDH, URIC #### [facility] [address] [address] [address] Alexsander Dickinson Globulin (S) [Mass/Vol] 4.1 g/dL Normal [facility] Comment on above: Performed By: #### C MP, LDH, URIC #### [facility] [address] [address] [address] Alexsander Dickinson Glucose [Mass/Vol] 123 mg/dL Critically high 74-106 [facility] Comment on above: Performed By: #### C MP, LDH, URIC #### [facility] [address] [place] [address] Dr. Alexsander Dickinson Potassium [Moles/Vol] 4.2 mmol/L Normal 3.5-5.1 [facility] Comment on above: Performed By: #### C MP, LDH, URIC #### [facility] [address] [place] [address] Dr. Alexsander Dickinson Protein [Mass/Vol] 6.6 g/dL Normal 6.4-8.2 [facility] Comment on above: Performed By: #### C MP, LDH, URIC #### [facility] [address] [place] [address] Dr. Alexsander Dickinson Sodium [Moles/Vol] 137 mmol/L Normal 136-145 [facility] Comment on above: Performed By: #### C MP, LDH, URIC #### [facility] [address] [place] [address] Dr. Alexsander Dickinson Urea nitrogen [Mass/Vol] 5.0 mg/dL Critically low 7.0-18.0 [facility] Comment on above: Performed By: #### C MP, LDH, URIC #### [facility] [address] [place] [address] Dr. Alexsander Dickinson Urea nitrogen/Creatinine [Mass ratio] 8.2 mg/mg Normal [facility] Comment on above: Performed By: #### C MP, LDH, URIC #### [facility] [address] [place] [address] Dr. Alexsander Dickinson PROTIMEon 02-01-2023 INR Coag (PPP) [Relative time] {INR} Normal [facility] Comment on above: Performed By: #### H BSANS #### [facility] [address] [place] [address] Dr. Alexsander Dickinson INR GUIDELINES SEE BELOW Normal [facility] Comment on above: Result Comment: CAROLEE RED INR: 2.0 - 3.0 CONDITIONS NOT LISTED BELOW 2.5 - 3.5 FOR PROSTHETIC HEART VALVE REPLACEMENT 2.5 - 3.5 RECURRENT THROMBOSIS Performed By: #### H BSANS #### [facility] [address] [place] [address] Dr. Alexsander Dickinson PT Coag (PPP) [Time] 9.2 s Normal 9.0-11.6 [facility] Comment on above: Performed By: #### H BSANS #### [facility] [address] [place] [address] Dr. Alexsander Dickinson PTTon 02-01-2023 aPTT Coag (Bld) [Time] 25.9 s Normal 22.3-36.2 [facility] Comment on above: Performed By: #### H BSANS #### [facility] [address] [place] [address] Dr. Alexsander Dickinson TYPE AND SCREENon 02-01-2023 TYPE AND SCREEN Negative Normal [facility] Comment on above: Performed By: #### A FPMAT #### [facility] [address] [place] [address] Dr. Alexsander Dickinson URIC ACID SERUMon 02-01-2023 Urate [Mass/Vol] 5.5 mg/dL Normal 2.6-6.0 [facility] Comment on above: Performed By: #### C MP, LDH, URIC #### [facility] [address] [place] [address] Dr. Alexsander Dickinson US PREG BIOPHY W [...] by: DEE GALLEGOS Date: 2023-02-01 15:04 Normal [facility] US PREG BIOPHY W NON STRESSo [...] by: SEBASTIAN HENRY Date: 2023-01-25 15:18 Normal [facility] US PREG BIOPHY W NON STRESSo [...] by: DEE GALLEGOS Date: 2023-01-19 06:16 Normal [facility] US PREG BIOPHY W NON STRESSo [...] DEE GALLEGOS Date: 2023-01-11 15:38 Normal [facility] US PREG GROWTHon 01-11-2023 US PREG [...] DEE GALLEGOS Date: 2023-01-11 16:42 Normal [facility] GTT 3 HR PREGon 12-01-2022 Glucose [Mass/Vol] 104 mg/dL Normal 74-106 [facility] Comment on above: Performed By: #### A 1C #### [facility] [address] [address] [address] Alexsander Dickinson Glucose [Mass/Vol] 182 mg/dL Normal [facility] Comment on above: Performed By: #### A 1C #### [facility] [address] [address] [address] Alexsander Dickinson Glucose [Mass/Vol] 114 mg/dL Normal [facility] Comment on above: Performed By: #### A 1C #### [facility] [address] [place] [address] Dr. Alexsander Dickinson Glucose [Mass/Vol] 73 mg/dL Normal [facility] Comment on above: Performed By: #### A 1C #### [facility] [address] [address] [address] Alexsander Dickinson PAP ACOG PANEL 2: 20 to 28on 11-18-2022 . . Normal [facility] Comment on above: Performed By: #### A 1C #### [facility] [address] [place] [address] Dr. Alexsander Dickinson Age Gdln ACOG Testing 21-29 [facility] Comment on above: Performed By: #### A 1C #### [facility] [address] [place] [address] Dr. Alexsander Dickinson DIAGNOSIS: Comment [facility] Comment on above: Result Comment: NEGA TIVE FOR INTRAEPITHELIAL LESION OR MALIGNANCY. Performed By: #### A 1C #### [facility] [address] [place] [address] Dr. Alexsander Dickinson Methodology: Comment [facility] Comment on above: Result Comment: This liquid based ThinPrep(R) pap test was screened with the use of an image guided system. Performed By: #### A 1C #### [facility] [address] [place] [address] Dr. Alexsander Dickinson Note: Comment [facility] Comment on above: Result Comment: The Pap smear is a screening test designed to aid in the detection of premalignant and malignant conditions of the uterine cervix. It is not a diagnostic procedure and should not be used as the sole means of detecting cervical cancer. Both false-positive and false-negative reports do occur. . Performed By: #### A 1C #### [facility] [address] [place] [address] Dr. Alexsander Dickinson Performed by: Comment Normal [facility] Comment on above: Result Comment: Cici Clarke, [employer] (ASCP) Performed By: #### A 1C #### [facility] [address] [place] [address] Dr. Alexsander Dickinson Reflex Criteria: Comment [facility] Comment on above: Result Comment: The HPV DNA reflex criteria were not met with this specimen result therefore, no HPV testing was performed. . Performed By: #### A 1C #### [facility] [address] [place] [address] Dr. Alexsander Dickinson Specimen adequacy: Comment Normal [facility] Comment on above: Result Comment: Sati sfactory for evaluation. No endocervical component is identified. Performed By: #### A 1C #### [facility] [address] [place] [address] Dr. Alexsander Dickinson CHLAMYDIA/GONOCOCCUS ZUNILDA (SW AB/URINE/PAPon 11-17-2022 Chlamydia trachomatis, ZUNILDA Negative Normal Negative [facility] Comment on above: Performed By: #### A 1C #### [facility] [address] [place] [address] Dr. Alexsander Dickinson Neisseria gonorrhoeae, ZUNILDA Negative Normal Negative [facility] Comment on above: Performed By: #### A 1C #### [facility] [address] [place] [address] Dr. Alexsander Dickinson VAGINITIS/VAGINOSIS DNA PROB Jose De Jesus 11-16-2022 Reema species Negative Normal Negative [facility] Comment on above: Performed By: #### V AGINT #### [facility] [address] [place] [address] Dr. Alexsander Dickinson Gardnerella vaginalis Negative Normal Negative [facility] Comment on above: Performed By: #### V AGINT #### [facility] [address] [place] [address] Dr. Alexsander Dickinson Trichomonas vaginalis Negative Normal Negative [facility] Comment on above: Performed By: #### V AGINT #### [facility] [address] [place] [address] Dr. Alexsander Dickinson US PREG INCOMPLETE ANATOMYon 11-14-2022 US PREG INCOMPLETE ANATOMY EXAMINATION: US PREG INCOMPLETE ANATOMY HISTORY: screening COMPARISON: No relevant comparison available. FINDINGS: Heart rate: 150 bpm position: Variable Anatomy: 4.8 x 5.8 mm choroid plexus cyst is again identified IMPRESSION: Stable choroid plexus cyst Electronically authenticated by: SEBASTIAN HENRY Date: 2022-11-14 16:19 Normal [facility] FREE T4on 10-19-2022 Free T4 [Mass/Vol] 0.89 ng/dL Normal 0.76-1.46 [facility] Comment on above: Performed By: #### H BSANS #### [facility] [address] [address] [address] Alexsander Dickinson TSHon 10-19-2022 TSH 1.303 uIU/mL Normal 0.358-3.740 [facility] Comment on above: Performed By: #### H BSANS #### [facility] [address] [address] [address] Alexsander Dickinson US PREG ANATOMY SINGLEon [...] DEE GALLEGOS Date: 2022-10-17 20:42 Normal [facility] AFP MATERNAL FOR SPINA BIFID Aon 10-11-2022 AFP MoM 1.49 Normal [facility] Comment on above: Performed By: #### A FPMAT #### [facility] [address] [address] [address] Alexsander Dickinson AFP Value 60.8 ng/mL Normal [facility] Comment on above: Performed By: #### A FPMAT #### [facility] [address] [address] [address] Alexsander Dickinson AFP, Serum for Spina Bifida Report Normal [facility] Comment on above: Performed By: #### A FPMAT #### [facility] [address] [address] [address] Alexsander Dickinson Comment Comment Normal [facility] Comment on above: Result Comment: Niurka Patricia, Ph.D., [facility] Director . References: Available Upon Request. . Multiples Of Median Cutoffs For AFP Elevations Fonseca 2.5 Black 2.8 IDD 2.0 Twins 4.5 Abbreviation Definitions IDD - Insulin Dep Diabetes OSBR - Open Spina Bifida Risk . For further inquiries contact [employer] [facility] at [phone]. . This test was developed and its performance characteristics determined by [employer]. It has not been cleared or approved by the Food and Drug Administration. Performed By: #### A FPMAT #### [facility] [address] [place] [address] Dr. Alexsander Tiwari Age Collection Date 19.4 weeks Normal [facility] Comment on above: Performed By: #### A FPMAT #### [facility] [address] [id number] [address] Alexsander Dickinson Gestat, Age Based on NILE Normal [facility] Comment on above: Result Comment: 02/2023 Recalculations are not recommended when gestational dating by LMP and ultrasound are within 10 days. Performed By: #### A FPMAT #### [facility] [address] [place] [address] Dr. Alexsander Dickinson Insulin Dep Diabetes No Normal [facility] Comment on above: Performed By: #### A FPMAT #### [facility] [address] [place] [address] Dr. Alexsander Dickinson Interpretation Comment Normal [facility] Comment on above: Result Comment: Inte [...] Customer Services to discuss available options. The [employer] recommends amniocentesis be offered to women age 35 and older. Performed By: #### A FPMAT #### [facility] [address] [place] [address] Dr. Alexsander Dickinson [age] Normal [facility] Comment on above: Performed By: #### A FPMAT #### [facility] [address] [place] [address] Dr. Alexsander Dickinson Multiple Gestation No Normal [facility] Comment on above: Performed By: #### A FPMAT #### [facility] [address] [place] [address] Dr. Alexsander Dickinson OSBR Risk 1 [place] 2809 Normal [facility] Comment on above: Performed By: #### A FPMAT #### [facility] [address] [place] [address] Dr. Alexsander Dickinson PDF . Normal [facility] Comment on above: Performed By: #### A FPMAT #### [facility] [address] [place] [address] Dr. Alexsander Dickinson Race Normal [facility] Comment on above: Performed By: #### A FPMAT #### [facility] [address] [place] [address] Dr. Alexsander Dickinson Test Results: Negative Normal [facility] Comment on above: Performed By: #### A FPMAT #### [facility] [address] [place] [address] Dr. Alexsander Dickinson GTT 3 HR PREGon 09-29-2022 Glucose [Mass/Vol] 99 mg/dL Normal 74-106 [facility] Comment on above: Performed By: #### A FPMAT #### [facility] [address] [address] [address] Alexsander Dickinson Glucose [Mass/Vol] 173 mg/dL Normal [facility] Comment on above: Performed By: #### A FPMAT #### [facility] [address] [address] [address] Alexsander Dickinson Glucose [Mass/Vol] 151 mg/dL Normal [facility] Comment on above: Performed By: #### A FPMAT #### [facility] [address] [address] [address] Alexsander Dickinson Glucose [Mass/Vol] 76 mg/dL Normal [facility] Comment on above: Performed By: #### A FPMAT #### [facility] [address] [place] [address] Dr. Alexsander Dickinson GLUCOSE - 1HRon 09-20-2022 Glucose [Mass/Vol] 159 mg/dL Critically high 74-106 T [facility] Comment on above: Performed By: #### H BSANS #### [facility] [address] [place] [address] Dr. Alexsander Dickinson HEP B SURFACE ANTIGEN SCREEN on 08-17-2022 HBsAg Screen Negative Normal Negative [facility] Comment on above: Performed By: #### H BSANS #### [facility] [address] [place] [address] Dr. Alexsander Dickinson HEPATITIS C VIRUS AB W/ REFL EX QUANTon 08-17-2022 HCV AB <0.1 Normal 0.0-0.9 [facility] Comment on above: Performed By: #### A 1C #### [facility] [address] [place] [address] Dr. Alexsander Dickinson Interpretation: Comment Normal [facility] Comment on above: Result Comment: Nega tive Not infected with HCV, unless recent infection is suspected or other evidence exists to indicate HCV infection. Performed By: #### A 1C #### [facility] [address] [place] [address] Dr. Alexsander Dickinson HIV 1 AND 2 WITH REFLEXon HIV Screen 4th Generation wRfx Non-Reactive Normal Non Reactive [facility] Comment on above: Result Comment: HIV Negative HIV-1/HIV-2 antibodies and HIV-1 p24 antigen were NOT detected. There is no laboratory evidence of HIV infection. Performed By: #### H IV12 #### [facility] [address] [address] [address] Alexsander Dickinson RPR QUANTon 08-17-2022 Rapid Plasma Reagin, Quant Non-Reactive Normal NonRea<1:1 [facility] Comment on above: Result Comment: Plea se Note: This test does not meet current guidelines for screening and diagnosis of syphilis. This test is intended for following treatment response in patients being treated for syphilis infection. To screen for syphilis infection, a reflex cascade that includes both RPR and a treponema-specific assay should be utilized, such as Treponema pallidum (Syphilis) Screening [place] (021312) or Rapid Plasma Reagin (RPR) Test With Reflex to Quantitative RPR and Confirmatory Treponema pallidum Antibodies (401648). Performed By: #### H BSANS #### [facility] [address] [place] [address] Dr. Alexsander Dickinson RUBELLA AB IGGon 08-17-2022 Rubella Antibodies, IgG 11.90 index Normal Immune >0.99 [facility] Comment on above: Result Comment: Non- immune <0.90 Equivocal 0.90 - 0.99 Immune >0.99 Performed By: #### H BSANS #### [facility] [address] [address] [address] Alexsander Dickinson CBC AUTO DIFFon 08-16-2022 BASO # 0.1 103/ul Normal 0.0-0.1 [facility] Comment on above: Performed By: #### H BSANS #### [facility] [address] [place] [address] Dr. Alexsander Dickinson Basophils/100 WBC (Bld) 0.6 % Normal 0.2-2.0 [facility] Comment on above: Performed By: #### H BSANS #### [facility] [address] [address] [address] Alexsander Dickinson EO # 0.1 103/ul Normal 0.0-0.7 [facility] Comment on above: Performed By: #### H BSANS #### [facility] [address] [place] [address] Dr. Alexsander Dickinson Eosinophils/100 WBC (Bld) 0.9 % Normal 0.9-7.0 [facility] Comment on above: Performed By: #### H BSANS #### [facility] [address] [place] [address] Dr. Alexsander Dickinson Erythrocyte distribution width (RBC) [Ratio] 12.9 % Normal 11.0-15.0 [facility] Comment on above: Performed By: #### H BSANS #### [facility] [address] [place] [address] Dr. Alexsander Dickinson Hematocrit (Bld) [Volume fraction] 39.0 % Normal 36.0-48.0 [facility] Comment on above: Performed By: #### H BSANS #### [facility] [address] [place] [address] Dr. Alexsander Dickinson Hemoglobin (Bld) [Mass/Vol] 12.9 g/dL Normal 12.0-16.0 [facility] Comment on above: Performed By: #### H BSANS #### [facility] [address] [place] [address] Dr. Alexsander Dickinson IG # 0.04 10e3/ul Critically high 0.00-0.03 [facility] Comment on above: Performed By: #### H BSANS #### [facility] [address] [place] [address] Dr. Alexsander Dickinson IG % 0.4 % Normal 0.0-0.5 [facility] Comment on above: Performed By: #### H BSANS #### [facility] [address] [place] [address] Dr. Alexsander Dickinson LYMPH # 2.4 103/ul Normal 1.2-3.8 [facility] Comment on above: Performed By: #### H BSANS #### [facility] [address] [place] [address] Dr. Alexsander Dickinson Lymphocytes/100 WBC (Bld) 26.3 % Normal 20.5-60.0 [facility] Comment on above: Performed By: #### H BSANS #### [facility] [address] [place] [address] Dr. Alexsander Dickinson MANUAL DIFF REQ NO Normal [facility] Comment on above: Performed By: #### H BSANS #### [facility] [address] [place] [address] Dr. Alexsander Dickinson MCH (RBC) [Entitic mass] 28.4 pg Normal 26.7-34.0 [facility] Comment on above: Performed By: #### H BSANS #### [facility] [address] [place] [address] Dr. Alexsander Dickinson MCHC (RBC) [Mass/Vol] 33.1 g/dL Normal 29.9-35.2 [facility] Comment on above: Performed By: #### H BSANS #### [facility] [address] [place] [address] Dr. Alexsander Dickinson MCV (RBC) [Entitic vol] 85.7 fL Normal 81.0-99.0 [facility] Comment on above: Performed By: #### H BSANS #### [facility] [address] [place] [address] Dr. Alexsander Dickinson MONO # 0.6 103/ul Normal 0.3-0.8 [facility] Comment on above: Performed By: #### H BSANS #### [facility] [address] [place] [address] Dr. Alexsander Dickinson Monocytes/100 WBC (Bld) 6.8 % Normal 1.7-12.0 [facility] Comment on above: Performed By: #### H BSANS #### [facility] [address] [place] [address] Dr. Alexsander Dickinson NEUT # 5.8 103/ul Normal 1.4-6.5 [facility] Comment on above: Performed By: #### H BSANS #### [facility] [address] [address] [address] Alexsander Dickinson Neutrophils/100 WBC (Bld) 65.0 % Normal 43.0-75.0 [facility] Comment on above: Performed By: #### H RACHELNS #### [facility] [address] [place] [address] Dr. Alexsander Dickinson Platelet mean volume (Bld) [Entitic vol] 9.9 fL Normal 9.5-13.5 [facility] Comment on above: Performed By: #### H BSANS #### [facility] [address] [place] [address] Dr. Alexsander Dickinson PLT 275 103/ul Normal 150-450 [facility] Comment on above: Performed By: #### H BSANS #### [facility] [address] [place] [address] Dr. Alexsander Dickinson RBC 4.55 106/ul Normal 4.20-5.40 [facility] Comment on above: Performed By: #### H BRITTANIE #### [facility] [address] [place] [address] Dr. Alexsander Dickinson WBC 8.9 103/ul Normal 4.0-11.0 [facility] Comment on above: Performed By: #### H BSAMARC #### [facility] [address] [place] [address] Dr. Alexsander Dickinson CULTURE URINEon 08-16-2022 CULTURE URINE Culture Observations: MODERATE GROWTH OF MIXED GENITAL JOHN. NO POTENTIAL PATHOGENS SEEN. Normal [facility] Comment on above: Performed By: #### A FPMAT #### [facility] [address] [place] [address] Dr. Alexsander Dickinson GLYCOHEMOGLOBIN A1Con 2021 ADA RECOMMENDATION SEE BELOW Normal [facility] Comment on above: Result Comment: ADA RECOMMENDED LIMIT 4.0 - 6.0 ADA THERAPEUTIC TARGET < 7.0 ACTION SUGGESTED > 7.0 Performed By: #### A 1C #### [facility] [address] [place] [address] Dr. Alexsander Dickinson Glucose [Mass/Vol] 111 mg/dL Normal [facility] Comment on above: Performed By: #### A 1C #### [facility] [address] [address] [address] Alexsander Dickinson HbA1c (Bld) [Mass fraction] 5.5 % Normal 4.5-6.2 [facility] Comment on above: Performed By: #### A 1C #### [facility] [address] [address] [address] Alexsander Dickinson LATRELL BOX TEST PT SEND OUTo n 08-16-2022 SENT TO REF LAB 08/16/2022 Normal [facility] Comment on above: Performed By: #### N BOX #### [facility] [address] [address] [address] Alexsander Dickinson TYPE AND SCREENon 08-16-2022 TYPE AND SCREEN Negative Normal [facility] Comment on above: Performed By: #### A FPMAT #### [facility] [address] [place] [address] Dr. Alexsander Dickinson US PREG TVon 07-21-2022 [...] DEE GALLEGOS Date: 2022-07-20 22:25 Normal [facility] US PREG TVon 07-13-2022 US PREG TV EXAMINATION: US PREG TV HISTORY: Missed period COMPARISON: 03/09/2022 FINDINGS: Fonseca intrauterine gestation Gestational sac: 1.7 cm, 6 weeks 2 days Yolk sac: 1.7 mm [place]-rump length: 5.8 mm, 6 weeks 3 days Heart rate: 125 bpm Uterus is normal in appearance, anteverted, retroflexed The ovaries are normal in appearance. Cervix: Closed, 3.9 cm small amount of fluid in the endocervical canal IMPRESSION: Viable fonseca intrauterine gestation measuring 6 weeks 3 days Electronically authenticated by: SEBASTIAN HENRY Date: 2022-07-13 17:05 Normal [facility] Coding Summaryon 03-17-2022 Coding Summary HTMLBase 64 JxodczryEQm3nDb+PGhl YWQ+BP3LTRMwC46kyJNu gH5WB7eRIV6QYLCHDQMP YJ4GBH3hsSQ7NXqhX3Gq biAv CdflyMOgKC60QKa7KZB8 cLrzLEhijO8ysDFpX9z7 NjZqRW84iJ02BExkANAg SkT3JfMzaudjaINr K7nfHbQetXUjVdn+PHRh YmxlIHdpZHRoPScxMDAl FaFheAsoJE4jTv4fFPHh LWNvbGxhcHNlOiBj y6kjHQMrJXboHF1zpRma R0OxpXP9ZOHsu6c5Ch57 dHI+QWZcHEK7qJbeGRnv z279WfEjh1llKNP6 nOBtVWdfBQN4I44ll1H2 RZVuUNWeXGN3nUH8cM5i rLnduchuR3PrfCBtEzT4 TJW4vZYgnO9oiWtx yiznjZ5fUxg+I27XRN6I ZAABVE7WOzs5A0CfRhnq dHI+FF70MSXoIR93hWWt uYYkh0zfnGm8HkJv BRHyTDV0oEsoTYzci6Hk TUOwF90iiZFuw2H3PLLp hIjrdSIgUbNknUO1zP2s BKmbezfvs1bwvnxl Ssasy5kmmo16jV35B72b QBixJJSzCGJ6DGFtWGOg rDgsem0olK7dWz8+IDxj i5rtg7sjfMx9XbQf ASJkroEbyQcnNVJ6v6Mu Ap62A3JcpTvlj7TpTco4 po39bRRhw0J3lDT7REae WCHwaP0hJVeuMmO0 IGBqNbSqsH10zJByALsp Mi7zkMlpuIwgUL6gVBBv nyxyAKZyhE1pWTKhfNZu qFcjXY1oHNUxjebo j722OwIhGYX5WPWkrCJk A9IjlS0jEsYkFDRnAOQz I8MfnJRrXOnbA935AXay YeO2NIDfitYqN7Rt RCEktKfxUcL4c0J1Ll9E y5YbxeieVFH2ATpcKBD5 ZpXoUkPaLdX8K1YdFfg7 GXQvlJwwXL3jA3Il UYPhreuaijhxnOR6PNPv OIQrvH76qDOuPWdePh9f o4X8i589WTDaMRJmuW14 Wq7goCqbKRYkxCML fL7qhspwg8yniketHvVk CTGjRDv5ZUf0YTYygGuu XoJmOOO4AqJ9XCP6xVEx mK5rrMcssrkxxZ0u Oyc+U95qrA9yMNA8WTK8 dcieGBKbrdJuPR22QW87 N9QeGpvvdAGndUP+PGRp hcUhyVjwRK4cMtUy z1ymt2VlIKflE2VpWKHd OKhoDxj1KVMmCBV4qHU6 hN2nQDThWVfur2P7wKR0 K6XwagPhfi8ki3uy SDBpHVzrR86lmCNrz9E3 AHKayCR4RVHhnQxsMgDn yL19Mja+PBIkbIgoi8Ys Gwedj5gef7pmrAy9 IjMwJSIgdmFsaWduPSJ0 p7SaKv50H07wJNioUKPc XGQnSKMfSOZyvInmil4z yL4gIe3+PGNvbCB3 oME3zH8kUFMkSlR9SBaa T661ZmHejXVnFixpc8tj e0vqhRm5DnUoMSTqpwQu rYkaOJJ2h1XhEc34 M99nRCnyHPZvNLDiMJDo XEQlvOwwng2uhC9dXt8+ QI0vp8brko82tW81pTU+ NLOoDAT3wCujHEbl KRBpaM1hEEhuZhX8FEYq IiIsvV19xWKqXLbxRd6z cMwvfBrxSA3bWUFjilyg u303UfIjb4qmBEBb qHElWEbzVPB6P72qr9A9 RQAmTQOcKFH6aAB3nU0k bGlnbjogbGVmdDsgdmVy sKsmAUjbDNpwZ949 IHRvcDsnPlBhdGllbnQg CqJgKUk2H0KcRlq8XIYr lOlbGB3ahAWmLSwiTs1o jJptsNimZI0yZTMc drpgv689AxDsy2znOMYm zTQhENbxSBJ1E23ah2U3 GMWfESJtVVY4lWB9bJ0a bGlnbjogbGVmdDsg adXgnPnjAOdfOAhpQ466 IHRvcDsnPkJpcnRoIERh nKC9NQ39QS15pZEsn0C9 gSG1K2AhPAOjfpck xsfytSP8FOCzCNSufR74 Tb1wiZhrLj2uYITeXOV6 CMDsdUTyY1ByoG3iVrTd IQBsQDMhK1DpjBXi APdyS616KCtfDgK3CIXq ygBcR7SsUTXhkNlcZlN7 o5J1Rt7SV3B9RE90CM27 jAUcb9A1jKX9T8De BEZexliucqjjfCG2EJRf GGCebC50Xw8buOteEp7o HYFkIGN7JSSddCZfP4Mv gY1uOtWzXLMqVIGs N8JfwAXyUFdeI182AYwg CmI8NHDsmjVqZ1NcJQEq sMbbFcR4r5A0Wm6XKNf6 PK41MA14cDXxx8C3 eOP0H0DxBUTrghifiwoj lGA3PABqMTUudI20Bm3p bHilCi8vVYBjVGN9BYLc hJAtL4IkrI4rArXn BXAbMDIiI6HbaGYgETmn P330WMzcPuU9YNUvajJi N1IjZLGruAagIkC4b7J5 Ob8RLWSyXF67NJQ6 uSC6TF02GB82R3HkNvpl dGFibGU+PHRhYmxlIHdp ZHRoPScxMDAlJyBzdHls HL4kVp9wNUVlGPXn eLqilFHsLuJjv8efXMOs UStbEP4vbKpmG5TkyRO2 VBHnb0e6Uc61Y57aC2Dl dXA+DEKycFQ0nYH4 sU9lHnOvAkX0EKxnS780 MbZoeDXmEyzaz5zfw8kh kPh3QvW2OJIggeIrzEbq TBR0o5FcCs00B12z IHdpZHRoPSIxNSUiIHZh iJkscq1tvT7mPe2+PGNv lBV5kEW8wW3mAdBkJnM6 BBboR679BwHtnYDx Qnahk1wkl1graXp2AcNi FIYydvRjyNpiGFQ4b9Tv Pj55T6LlrTadc9HdHvd4 qu95oNDiw3R4yES1 V3HbAAKtvwchiIVflHpo JK7uGGYzgjghHDPkpI9r VQSoU1t3AuKzWcE7HQnt E2DgsgZ1KAThhTTl EDoiKNR1H70tc7U3XQYo ASTcOOH6vMS2vY0rfIqw bjogbGVmdDsgdmVydGlj JMemAWinD931AYLf gSxzLVMydD9cMFDaqWCq eAywQN3rJUPisjbqPvMI TExJTlMsIEFMWVNTQSBS JGCPAPb4B1KpSwy4 MNBcdRmvSU6rrYTlPVhp Xf1bjTzylItgCA8sOHYn mwdgHHErsX5mYZTilWKr mMafLG5lPYPgmvgl j834AyVyKZN0LLQcfUPn W5VnmZ1bQuTaOTMdQCLb R0EreLXaDRaaT417LVgy OnQ7LWObjjRjS9Iy IYChiJcyTmR4k8O6Qo4l YR0qXm1qJOz0KV36QM67 oWVkt6F5oCW5D5MsVIPu wukaqboslYI2OERj SSMsaX22qCGwRKvzAr0s i6N7z070RQYuSWPquN44 Ka6kxNhfJXCnvLALhV6t wbtob4tvowzfRbSy PNByDCj3XXb3ODWurCzr TxMcGNL6BhZ9YFR1qWXe fX0heQizbaeimS9kLpt+ YdmqPEDkiqV4C1Dm Rvm6HPTssYqrIB0jmZMs AUvyEe3beAhutLtnCW3p FNXizsndOVUpiR2vAYMd fVNmpKtkLN5bPSBg uabxz877CvRuAJU3PIRi tBQpC3AwvN4rFdLnAXAy QLNhQ2CqoYQiRXjgQ371 OQdnLeO2ONGwdmFy F4BsZNHxhFojLrF7p5T9 Ht2YEB5QFAH2A7HyMjg6 UFJyaLxeZC7mlUQzAEte Lv3ehMsyvTebKS6d GIWhsofrQJTpwH8jEDCc cZNtiHaqKW6iUZAemdng g555RiQaHVM3UEWpeTGf B8ArcH8pQmIeVVZk HAZnY5NloYRkYUkyQ393 KAqsMoH2PBXuozNvX2Ms MDHnxGyhVpE7v3H6Fk2S UDwvdGQ+SQ31rx27 S0UfOrneVmj2UAFyOOJ5 mFP3vL1sHEYoLMyzo7O5 dKW0H0IlooRjcs2ls6mh WJHnDUsrU33eoSPd d0C7KEDzhTS0GIBwuNqg VnWbcU82Hwj+PGNvbGdy s2RwFikpv5hil2ogeEq2 IjMwJSIgdmFsaWdu FRH7k9NkYg40X44dRUmk ZHRoPSIzMCUiIHZhbGln ci7anC6nVf9+PGNvbCB3 kZX2xL9vDdHjGiE5 PIgeF829PmAjkZOpOgvn x0lpj9zkaJv9AcJnWGPf ekQaeKpmBUM7c6BpQo04 T0TqcUftw0GdJfr0 qf35oMIlq8Q7wSK5P5Ai KNWszhwioXYdjDcwBS7p ZWDwbxkbXNWfdK3tIAPx O7j2FlJdChT8FXiv F2QqxfP9VGSxoZGxAZUs sEMXzB5syqjsg7miypkw RxVrIVQeAZc9LQm6OBJx tJntOiZfRCT9YkI8 ZEB9xSSmfW4mnAtjwsrd zY6rVqv+LLk4s4ntdDFb TA1obRV3TD34VU68eTUt n7S9xRP1S3UwROOs upotdvxhiVW4VNYaDMGz xK02Yq3fiOokXl0dCSGg NYG1DTZpkQFzY0DybE0z PcStTDNnWQQbY2Sp oDWoSIedR681TUpvVtV1 JEUzshLeN6DaXVIhwSpd KxC6x5N4If7MBI73VV65 DM31xWNrn7G3cWC0 E7RyHHNcivtlqrnjzTR7 VCZcOIOqmL07Rw5olVvt Qx2bHDLaIVX2JCTbxWXt A9HysQ1cRnApWIEa XLYrE6NnqNVyGVulN803 WStiYsU7GLEwjjOnN6Tl MBQxxCzcYvT6s4J6Oj8V Rd31BB35YY11aIGw u5K7dFM2Y8XgAXZlyhbd mstjtEF1MPSfTXMixZ25 Op4jxQubEq8oRKNkPLN0 DZSvhQWpM0DleP7z EpDmGYPaMZPmU9RzxHWs BSnsF609FEjxNwW6DQAr klTtW3FsDNEgzYpsWcF7 c3B7Nw4VWXcqkmj3 D9HgMyihbPM+XG79LMKn FH79mJEewRCcl9rljBm2 MmBwIXRgLLK8hEjnPOri p4MsJKJzY35jpOCf c2U (more content not included)... [facility] Coding Summary HTMLBase 64 UuzfvhxuWIx0pFl+PGhl YWQ+WU7TRJHvX76jwHEt nZ1BA7sBTE1JYACCXJHZ HO2ZUX9aeZI3RIitL1Yh biAv ScvtkHAmEE28ECc2PWQ7 wFgvWFgebP3wmBXfJ7l7 JnSoJM22fO57EFflATDd RuR1ZwWzauzjfHFp R2dmUfUxoTOkSdh+PHRh YmxlIHdpZHRoPScxMDAl LiGrvWkuJY4zXi7xLDLo LWNvbGxhcHNlOiBj z7weNIRiLIvuSS4dnXuk J6GupDD2DTSbr8c4Qg07 dHI+XZMlFEY0cQbsLDoh w941EbNtv2rcRPP5 nPUdPNsiOBL5O53jo7H0 FZLiQFIgDAG2ePC3fE1a xNylgoqlC1SbnARcMcS3 SKU7fLDfqS7rsEfb jvobnV6nNan+G66WKR1X HNXTHF5AJgd9C4JjEwwl dHI+XI80CNNnDN05tWMb pEGck0zqySx7PoZe IKYeBLA9bSkkFIcde6Wf MYXtG08tkLNvs6K5ZMJg hNwmsRHsFjOjpTQ6wK1k QOulbjrcy4rttndu Eefjb9bgmo91qP96P42n GPwtUZFmQOX3OOZdMEJs nXqtal0bdO1xMs8+IDxj q0msr5ehtJd2VcLb AKLytvPiiKasIUL4i3Jq Ip31V0NqwYpyn9QhPvv1 jv04oOCsd4S6pZQ7YNkg LOHfoE5fTJzwAeD5 XSNjUbZllK85jFLfGUrp Ny2eaJzlkBpfYM6bIFTr gpzoYPMhtM6hLPYgkHRa dRokJQ1gXIAynglx s699IsJvKLN0EJRlaEKw K0VhqC2nQyReSBFlGGYp K1RerZEuCJqfJ331OTeq IuA1DBNvjqZlD5Hq GLZkuJjvBnP7h1Y6Ae8F p6YyrlumNRN2OWnkEPB4 GrPoTcXjVuK1V0RoBkc8 DNKbdBzwIY1oZ3Ax LVCslizxcpafvUG5HWZk PYTqhY37aZJoWUeuNm4h n6A0u508CTKpRLPmyI82 Hc7gfSsjAMTloHCS iK3kiuzud8ourmiyPiJl YKJaCNr4FCa2AVAlqUhg KmJcNSU4WtU2DEY4jQMw rS2rlXndvdvfvH3q Oyc+L95foS5cVIO4FXL1 jlatGDJnbzGoDH65ZI37 L3RhFmaewKLllPF+PGRp cxEchDgpVG7kLwDt l3nwb1PrWLjnK0CvWJMv KVcrTvs7YETqSVK6dVH7 jK7uPBNsLYuib8D5fRO1 T2KeebUvhd6um9hu ITUeLBnhH12usDAww5D9 MJRtwPP2ZGWqiBqdKlGv sG46Xsl+HEMqjSwzk1Jo Opslw0zyh7dfeYa3 IjMwJSIgdmFsaWduPSJ0 b7HlTl07K68tSBicKUYo KRSmFSDtLCLjvMboxu9e sU9vGs4+PGNvbCB3 aCL1wV0sMGMnBaE0MXmm C757RxXavYZjTomuo1hr e9euaSi2ZpIyDADlygYn mAatBJD2a0EgRp07 P64aLEigPEStHCFfJNYf KUHdiRakia3dbU1mNm0+ QM1eg0ijak14kP49oML+ YLCeTCR8xRtyFBjr UREtjX8dBFwgZdQ8QLJl GqGkdQ63uIWuRTouHa5w iYodtGcyYK0vPRGhqnkb w734UcZqg7tcATUq sUAmJPjpUOU1N44de6O9 YONqTUDnQJD1hXR6eF6b bGlnbjogbGVmdDsgdmVy mBjiURitEYwgD112 IHRvcDsnPlBhdGllbnQg HvLoDMp0X0KlMlj1NGCo hMrlFW2yxCWqKGrwKj4f iGzqmGvuTM3mXPQv segao950XoOlr2ssARDo wIWbGTwoSTD6X05jp1I2 ZKQoWHNnZRT3oFJ7pH3h bGlnbjogbGVmdDsg ddJwrAycVUxnUAfhD893 IHRvcDsnPkJpcnRoIERh nYK7SS11QK86zOEbu1L9 nHI7P3RwQJWtkvle trgphFH2LZTfLASutU35 Hs1nsWnwJl3rLLLsZTQ8 KHKwfJDhU1BojC1pXvTx KAJxGAAbK4DjxIRi QOsgJ401EDtnGdX0NPOx mpDhX6SzBOVdrLavVcU8 i5G8Wp4NW3P6XB55IO58 sFOtw5W9dUL3K5Pq JQGusxbupmibgEI1EPVw VSElsC27Pk3nwUjxVa1z UEBbLQO9ESXbxPTeO7Ll bO8uVcRpCKZcRSBp Z2UsfMFgVBecG714TFfy AxG5DGQwkyBxG3JcWGGa kOrhPbL4j9A1Kg5CCYo1 OX37JK80rCNcl9F5 uTP3K6GeBBLkhtlryuhr rOW9JJDtQYLviW99Oi4z wKtzBz7wYLNiIDJ3WBNz cQOuS5ZpdK7xOhCk KTKiQVMgO4LsaZYvLCnt S701LCctEuE6ZNZnyjTc Q6JvQXVkeJqeQoF6m4V3 Ma1BZOGpCX97HYH3 bEX3RY08UK42F9XyZoqc dGFibGU+PHRhYmxlIHdp ZHRoPScxMDAlJyBzdHls RO0iMd9rLRTgWHTd qCtewQUiHmUpf0mzUTPw IHabOS6adXjvR5PnnIH6 FLZks0q9Tn74Z91tD3Tz dXA+YJPynPT6eVK6 vL5nOpHfKgX8QKoxM123 FeCvbKYfLyiqa8hbz8at zVx4HzG0UDJjniTckVgs PQU2x3SnFv23U54r IHdpZHRoPSIxNSUiIHZh iDynpt7gvR4aTs6+PGNv pHY3vBT5mZ5jBmUdTfB9 QXstM095UcMvbFQr Qtqgt5oam6sslBp5FdCn HRGuyxRvpEbeXRX7s2Ff Tj16K2IakOfmc8DnVbz5 lq04xOEej0Z5nZG4 K1OhJYVqxvtbvGDfwEmc SS8sCRHqgmotSPMayH7g ZOSqW3r3CiImSdL1NYjm R2NhrsI4VGDetXUd GYijXVX0O50ka4N3ZJWh SLCjZYL8sPD6lY8asLfd bjogbGVmdDsgdmVydGlj LIqhHTeuP688GOOr yYpnHZRowD7kFLAebNWh fTyzSR1kSDCfntrlBcYT TExJTlMsIEFMWVNTQSBS OGEBDLy5Z6JyAni8 PLVrmBawCN6xkRDdLOlj Dj5lqPjmuJxkND4uIWWz bgbyGJGjcQ2hCJPdlWMl bHnuOA8eKRTjktmb e462LfHfAAI7EBXkuQXx N4AhsK8zPnOlECFfBSXt R5LuwDPzUDkqU110DSku EaM0ZVYjviSeI2Ik FSIodLexXwM7p4B0Vh4a XA0aBr0uFZn6BD43JD76 fNLya5X3iNV2Z2MrMQEj guzqcbkhmOF6EQAh HXFvuO74wSJbJWdnWv1s g5Z3t869KVTnYJYryI81 Ez4jnUedHPIwcJAWwJ4l rvfct0fdicdlCfEd WYAeLRj5IHb5DUBpaMbb StXqBDR8LwU9XTQ8kQBq dL8gkHorjcinyO0xUsp+ UdbfDUGywcM7L3Tr Zbm7IIFxcSjoYJ9yiICg WCmoEh8jlTacqHvgSX9d WFWvepnnXPThpT3lOYZd hSPrpFozDI2oSRMr bbphb489YtJeWPG6SXZx oVJhW8XmvN8kPhGgVWJu RUJvT4UorXPiEAevM707 RLlqUuO4LEJtpzTp A2UeNQMbjWwlHgQ3r7G8 Vs5UCZ5CKQQ2N3WjEtq5 QVFofVgmXA7dkIWzYNet Cw8cjYxfuLftAE9p ALIvqkeqMNEsdH1zQAZd oRAykMblHQ7cRGNlvuej g135CgGpRCK9ZWMvqFZc M4UjmZ6cBoQqJQVp WQQeF2FqbKUfROenE744 PPakNmN5YXPyvcQoX7Bx MKHwzMyuNaR9s7Y0Hs2H wYCyB3TnS0v6J7Dm PjwvdHI+JP76VNUbQV98 hGLdmLVec3vhtSv9FwCx IIDpYWH7dCquEQoyu9Jf CLOqV99qzPGlb5N9 IGNvbGxhcHNlOyBlbXB0 jA8pVFwtfnjkg4beszms Excvt6zroy55gR40A17o IHdpZHRoPSIzMCUi XLJwhFwukm2rfT0oCz8+ XXXozLX1qSO7gY8xOqYa DnB6AHnaZ317TsMvaLLa Bpjhv4yvb5qebRp7 IjIwJSIgdmFsaWduPSJ0 p4LxCu94U28dZDmsARGl KTEvMUZoNUKskYyggf8s zA5sHj2+MD3ky2pe ms49aB82kUA+PHRkIHN0 oLeeRRcqRTWqeI9zCUvw NuD6XIUbDdGkuN67bBJd YFnlJa2mwJmyiKyw LR8rBIRvkzith405EpWi p2pmIYJfyACiGUorNQQ6 N33nt6K2YYAmTCQgCVL5 sAH3nP3gbUomnimh bGVmdDsgdmVydGljYWwt QZshY530YMOyfRdpDxCi kTSsY5aicdCRHU4bMqvz dGQ+OKTrZCG1bPqn GTeaLXEmvG6kZOTdF4l1 StKrIuN7OWnpM2GuvdB8 CGNpsFGgVCXdeBJArU8g uzhca8vuubhqSeLx SWHaVWb7OAh4FVAypGxy YhDbKLE3KiX1RDI4zYMp kF2tuMxomjqyrF0vXni+ RklOOjwvdGQ+PHRk PBB9tSmfYNgcIAJusO4c SZWpM7v9JlJxAfN2HGev S8BycjM3PZXdxUDpDKEb rTDXiT5dgpglb8dz xfhkUkFlPQHdOVq6WEy9 LCDdeUrbRbKmKSG3KxU4 KKC7bVGhjA5tdKizpadz lX1gKjw+TVJOOjwv dGQ+FWTcSZC4zJydQUnl VVGqaV7oULQsS6k5ScMc JxX0PNbvV0JssnK1XOCo uYDxLJLitXFJsK8f udold6dktbmdPsGrDQFz IZv1CSp8FEPrqNtoKdZl HHW4WqE4VPH7hYDwpY9r zFvzngqmgH0mJrq+ XOU1IXL9KM52VG12H0Kj PjwvdGFibGU+PHRhYmxl IHdpZHRoPScxMDAlJyBz eAewJC6vKg8bCLRw LWN (more content not included)... Normal [facility] C Urineon 03-11-2022 C Urine Urine Culture ordered as a result of parameters set on specific urine dip and urine microsopic results. >3 Organisms Consistent with Contamination Recollection suggested. Normal [facility] Comment on above: Performed By: #### 1 0925527, 26246704, 0527296, 5249546263, 32435037, 4484261, 7060645724, 5261319265, 4074531982, 6516518 #### [facility] (DEFAULT) [address] [place] [address] 01307 .Auto Diff 03-09-2022 Auto Pitkin % 8 % Normal 11-09 [facility] Comment on above: Performed By: #### 1 1783064, 00458546, 0728669, 7133752605, 40165402, 0659281, 0647771090, 3111225034, 5819229627, 9721264 #### [facility] (DEFAULT) [address] [place] [address] Baso Abs# 0.0 x10 Normal 0.0-0.2 [facility] Comment on above: Performed By: #### 1 5459950, 45117121, 4186421, 5593697885, 17245081, 7139941, 6166138312, 0213963988, 5299804969, 9359137 #### [facility] (DEFAULT) [address] [place] [address] 26430 Basophils/100 WBC (Bld) 0.3 % Normal 0.2-2.0 [facility] Comment on above: Performed By: #### 1 6420350, 85702706, 5037747, 2542800452, 02681586, 9147225, 0992304408, 7821484623, 4510378457, 6618870 #### [facility] (DEFAULT) [address] [place] [address] 59381 Eos Abs# 0.1 x10 Normal 0.0-0.4 [facility] Comment on above: Performed By: #### 1 5767555, 50080720, 7696865, 3166509788, 06420679, 6360220, 8843129066, 0881196161, 8910883583, 3337106 #### [facility] (DEFAULT) [address] [place] [address] 36140 Eosinophils/100 WBC (Bld) 1.0 % Normal 0.9-4.0 [facility] Comment on above: Performed By: #### 1 3662134, 52523725, 2494292, 6007276497, 07462091, 9354951, 7958065737, 4164190317, 2061879976, 5176133 #### [facility] (DEFAULT) [address] [place] [address] 55302 Lymph Abs# 2.0 x10 Normal 1.3-2.9 [facility] Comment on above: Performed By: #### 1 8772358, 82023695, 8233201, 6885077017, 10231893, 6141050, 5098742968, 4782482656, 3917346282, 0800343 #### [facility] (DEFAULT) [address] [place] [address] 04485 Lymphocytes/100 WBC (Bld) 35 % Normal 14-48 [facility] Comment on above: Performed By: #### 1 3158974, 77936307, 7971702, 7900808385, 06217283, 7954435, 1484194637, 4215496381, 7613835039, 1164599 #### [facility] (DEFAULT) [address] [place], [place] [address] Pitkin Abs# 0.5 x10 Normal 0.0-0.8 [facility] Comment on above: Performed By: #### 1 6770250, 45770244, 7170096, 7857866369, 88528165, 9288877, 8837046863, 8457945491, 7424272212, 0654801 #### [facility] (DEFAULT) [address] [place] [address] Neut Abs# 3.2 x10 Normal 1.5-9.2 [facility] Comment on above: Performed By: #### 1 4944037, 88071476, 4549804, 4545883390, 41718385, 2837706, 2062812077, 3552306996, 0159275672, 8501712 #### [facility] (DEFAULT) [address] [place] [address] Neutrophils/100 WBC (Bld) 55 % Normal 44-88 [facility] Comment on above: Performed By: #### 1 5378120, 59691050, 5461389, 6617358926, 99669942, 2645759, 8105780088, 4256685690, 1522488994, 5695045 #### [facility] (DEFAULT) [address] [place] [address] ABORhon 03-09-2022 ABO and Rh group Nom (Bld) Hx Check: Not Found Anti-A: 4+ Anti-B: 0 Anti-D: 4+ DCon: 0 A1: mf+ B: 4+ ABORh Interp: A POS Invalid Interpretation Code [facility] Comment on above: Performed By: #### 1 7549242, 96801007, 9746011, 0145322338, 02300644, 3092889, 9175771668, 5842053686, 7249946571, 8143465 #### [facility] (DEFAULT) [address] [place] [address] 10703 ABORh Retypeon 03-09-2022 ABO and Rh group Nom (Bld) Ordered by Discern. Anti-A: 4+ Anti-B: 0 Anti-D: 4+ DCon: 0 A1: mf+ B: 4+ ABORh Retype: A POS Invalid Interpretation Code [facility] Comment on above: Performed By: #### 1 3320316, 62694798, 6731744, 9867947761, 25529637, 1986314, 2882528457, 1128670442, 1149119113, 5774761 ####[facility] (DEFAULT)[address] [place] [address] CBC w/ Auto Diffon Erythrocyte distribution width (RBC) [Ratio] 13.3 % Normal 11.5-15.0 [facility] Comment on above: Performed By: #### 1 7040774, 48785627, 3244145, 9385183959, 62063561, 1499175, 0193882848, 5695297929, 1813782900, 8455538 #### [facility] (DEFAULT) [address] [place] [address] Hematocrit (Bld) [Volume fraction] 43.5 % High 33.7-40.4 [facility] Comment on above: Performed By: #### 1 7612456, 02297207, 8341105, 5495595332, 89801183, 5799513, 8878225614, 8341169163, 4237006251, 9350990 #### [facility] (DEFAULT) [address] [place] [address] 67900 Hemoglobin (Bld) [Mass/Vol] 14.1 g/dL Normal 11.3-15.9 [facility] Comment on above: Performed By: #### 1 5317830, 05514420, 9212282, 4143937571, 09491884, 3074326, 0556749757, 3084433750, 4682289544, 7390486 #### [facility] (DEFAULT) [address] [place] [address] 74886 Instr WBC 5.7 x10 Invalid Interpretation Code [facility] Comment on above: Performed By: #### 1 6560744, 82255529, 4992066, 2776071537, 81081622, 5602080, 3885599694, 4343201242, 6071879124, 7273226 #### [facility] (DEFAULT) [address] [place] [address] 37808 Man Diff? Auto Normal [facility] Comment on above: Performed By: #### 1 3922709, 48514011, 6928653, 6931044490, 98247231, 6843145, 9518766337, 6161822432, 0192737746, 1828621 #### [facility] (DEFAULT) [address] [place] [address] 23921 MCH (RBC) [Entitic mass] 28 pg Normal 24-34 [facility] Comment on above: Performed By: #### 1 7474184, 30808705, 7471515, 6367405779, 04227492, 8801326, 6363156183, 2134482661, 1131413880, 2258225 #### [facility] (DEFAULT) [address] [place] [address] 11730 MCHC (RBC) [Mass/Vol] 32 g/dL Normal 26-37 [facility] Comment on above: Performed By: #### 1 0224987, 18215286, 6247759, 0868840189, 91507695, 4451477, 3024421319, 5801779392, 4865014269, 3055389 #### [facility] (DEFAULT) [address] [place] [address] 24388 MCV (RBC) [Entitic vol] 86 fL Normal 81-100 [facility] Comment on above: Performed By: #### 1 8612634, 65367623, 0430248, 4117409261, 27653374, 3913851, 6403034129, 2206039676, 2476719362, 9885380 #### [facility] (DEFAULT) [address] [place] [address] 10947 Platelet 324 x10 Normal 138-427 [facility] Comment on above: Performed By: #### 1 1962905, 00811230, 0025745, 2605147900, 67776465, 8965984, 7619631374, 0154170160, 4156087563, 1783492 #### [facility] (DEFAULT) [address] [place] [address] 63853 Platelet mean volume (Bld) [Entitic vol] 9.8 fL Normal 6.3-10.2 [facility] Comment on above: Performed By: #### 1 3978712, 85217133, 9595488, 5149438734, 16002510, 4710329, 8246460178, 8952766509, 4533440505, 2025538 #### [facility] (DEFAULT) [address] [place] [address] 38566 RBC 5.07 x10 Normal 3.70-5.30 [facility] Comment on above: Performed By: #### 1 1070936, 82564541, 3994214, 1561774147, 99663567, 4281233, 0366988025, 2682565051, 3009130793, 8097321 #### [facility] (DEFAULT) [address] [place] [address] 68606 WBC 5.7 x10 Normal 3.5-10.5 [facility] Comment on above: Performed By: #### 1 9526245, 88690490, 8194095, 9770889054, 63021170, 8172894, 7882536968, 8100125818, 4167827405, 3744628 #### [facility] (DEFAULT) [address] [place] [address] 11013 CMP Standardon 03-09-2022 eGFR Non AA >60 Invalid Interpretation Code [facility] Comment on above: Performed By: #### 1 7716850, 68393828, 6960683, 5367473765, 62357795, 0057307, 6599390052, 2316582732, 7509476886, 1065621 #### [facility] (DEFAULT) [address] [place] [address] 09081 eGFR AA >60 Invalid Interpretation Code [facility] Comment on above: Result Comment: Gas Dispatcher susie Kidney disease could be indicated at eGFRs of less than 60 ml/min/1.73m2. Kidney Failure is indicated at less than 15 ml/min/1.73m2 Performed By: #### 1 2827894, 36614547, 7541375, 3402403847, 56150635, 8710390, 5239343237, 8095431419, 3691853968, 2109716 #### [facility] (DEFAULT) [address] [place] [address] 61327 Albumin [Mass/Vol] 4.5 g/dL Normal 3.5-5.0 [facility] Comment on above: Performed By: #### 1 6892659, 74296918, 2333012, 0120623633, 22155200, 3167210, 7472105290, 1265387954, 9070234386, 5233384 #### [facility] (DEFAULT) [address] [place] [address] 56431 Albumin/Globulin [Mass ratio] 1.2 {ratio} Low 1.4-2.6 [facility] Comment on above: Performed By: #### 1 5567150, 76784926, 2938106, 4752532259, 41961596, 3946765, 1256746162, 1326167962, 8876005112, 7803114 #### [facility] (DEFAULT) [address] [place] [address] 53973 Alk Phos 52 IU/L Normal 32-91 [facility] Comment on above: Performed By: #### 1 3085453, 80178178, 5005233, 9800948190, 04155074, 9161239, 3305513680, 7076480048, 6022228515, 6095749 #### [facility] (DEFAULT) [address] [place] [address] 29846 ALT [Catalytic activity/Vol] 37.0 U/L Normal 14.0-54.0 [facility] Comment on above: Performed By: #### 1 5195642, 75663834, 9189439, 8653677836, 02502543, 5975639, 3360262044, 9298788764, 4018910146, 1148825 #### [facility] (DEFAULT) [address] [place] [address] 95564 Anion gap [Moles/Vol] 18.0 mmol/L Normal 5.0-19.0 [facility] Comment on above: Performed By: #### 1 7410756, 24231532, 0626016, 6502895327, 71942989, 3920376, 6609794549, 5162673297, 5319393685, 4399561 #### [facility] (DEFAULT) [address] [place] [address] 26507 AST [Catalytic activity/Vol] 29 U/L Normal 15-41 [facility] Comment on above: Performed By: #### 1 6239642, 90255395, 4900308, 6692624869, 23725057, 7229584, 7223475134, 6692222563, 9725378027, 1168772 #### [facility] (DEFAULT) [address] [place] [address] 90999 Bili Total 0.7 mg/dL Normal 0.3-1.2 [facility] Comment on above: Performed By: #### 1 5818189, 09248741, 4314338, 6492533433, 73059941, 6320180, 8388927286, 6584971207, 9972501974, 3137462 #### [facility] (DEFAULT) [address] [place] [address] 32493 Calcium [Mass/Vol] 9.4 mg/dL Normal 8.9-10.3 [facility] Comment on above: Performed By: #### 1 9638342, 82783338, 3018804, 8988041487, 71740773, 3738385, 5444415048, 3840112117, 2287247395, 8504477 #### [facility] (DEFAULT) [address] [place] [address] 60745 Chloride [Moles/Vol] 100 mmol/L Low 101-111 [facility] Comment on above: Performed By: #### 1 0193703, 54345505, 1904261, 9211116267, 57393549, 3304495, 1719339977, 7579467749, 1331135781, 7047516 #### [facility] (DEFAULT) [address] [place] [address] 98566 CO2 [Moles/Vol] 24 mmol/L Normal 21-32 [facility] Comment on above: Performed By: #### 1 0655955, 96584759, 2047970, 9683833810, 32762485, 9712367, 6609553144, 1640190165, 5081291750, 7876564 #### [facility] (DEFAULT) [address] [place] [address] 63695 Creatinine [Mass/Vol] 0.75 mg/dL Normal 0.60-1.30 [facility] Comment on above: Performed By: #### 1 0643316, 91827232, 0533369, 2978332511, 33480151, 5634793, 1741502350, 7276558769, 2563206138, 8047297 #### [facility] (DEFAULT) [address] [place] [address] 03809 Globulin (S) [Mass/Vol] 3.9 g/dL Normal 1.5-4.3 [facility] Comment on above: Performed By: #### 1 8477114, 73608128, 2946720, 3414538482, 01553119, 9303557, 9852986729, 5707873983, 8117276623, 4253490 #### [facility] (DEFAULT) [address] [place] [address] 16403 Glucose [Mass/Vol] 98.0 mg/dL Normal 74.0-118.0 [facility] Comment on above: Performed By: #### 1 2043399, 41783371, 3934124, 5098768443, 11874485, 9168192, 0028387891, 9071479391, 6100294177, 9446997 #### [facility] (DEFAULT) [address] [place] [address] 27795 Osmolality 274 mOsm/L Invalid Interpretation Code [facility] Comment on above: Performed By: #### 1 4140676, 67112561, 6217047, 0143671316, 83930706, 2961238, 3133455743, 7615004326, 8458996737, 7549947 #### [facility] (DEFAULT) [address] [place] [address] 05383 Potassium [Moles/Vol] 3.5 mmol/L Low 3.6-5.1 [facility] Comment on above: Performed By: #### 1 0515229, 79572594, 4892966, 0518107088, 72069132, 8304701, 2268775599, 9470195530, 6898334349, 1450090 #### [facility] (DEFAULT) [address] [place] [address] 17524 Protein [Mass/Vol] 8.4 g/dL High 6.5-8.1 [facility] Comment on above: Performed By: #### 1 4586781, 43868078, 9530747, 9707127243, 22902571, 2005185, 3928262723, 1656834629, 8773455164, 7562023 #### [facility] (DEFAULT) [address] [place] [address] 34376 Sodium [Moles/Vol] 138.0 mmol/L Normal 136.0-144.0 [facility] Comment on above: Performed By: #### 1 4654018, 37279107, 5553618, 5728676754, 03777858, 2824340, 2900447699, 9615735335, 5141054000, 2692945 #### [facility] (DEFAULT) [address] [place] [address] 60938 Urea nitrogen [Mass/Vol] 7 mg/dL Low 8-26 [facility] Comment on above: Performed By: #### 1 9713528, 46156737, 5830475, 4698120735, 55974434, 8486291, 1410918994, 1033829693, 9501196474, 0707012 #### [facility] (DEFAULT) [address] [place] [address] 63306 Urea nitrogen/Creatinine [Mass ratio] 9.0 mg/mg Normal 4.6-16.2 [facility] Comment on above: Performed By: #### 1 3627214, 01535345, 4051951, 1347584155, 41195235, 5576894, 3870586844, 1304916233, 8225678572, 1371820 #### [facility] (DEFAULT) [address] [place] [address] 38887 ED Clinical Summaryon 2021 ED Clinical Summary [facility] - Emergency Department [address] [place] [address] 46258 ED Clinical Summary PERSON INFORMATION Name: DIANE JOYCE Age: 26 Years Sex: FEMALE : 1995 MRN: Acct#: Visit Reason: Vaginal bleeding - < 20 wks ; BLEEDING, Arrival: 03/09/2022 15:56:59 Discharge: 03/09/2022 18:28:00 LOS: 000 02:32 Check In: 03/09/2022 15:56:59 Checkout:03/09/2022 18:28:00 Address: [address] [place] [address] PCP: Provider, None PROVIDER INFORMATION Provider Role [...] or bladder. States that she follows with lead retail sales associate in [place] Min, contacted his office and they [...] intact, SARINA: -Sclera conjunctiva: Unremarkable. NECK: -Supple (quzs-mf-tgpje): non-tender. CARD: -Rate and rhythm: Regular -Edema: [...] the patient recommended close follow-up with her lead retail sales associate and outpatient beta hCG. In the meantime no strenuous ac (more content not included)... Normal [facility] ED Note - Physicianon 2021 ED [...] or bladder. States that she follows with lead retail sales associate in [place] Dr. Min, contacted his office and they [...] intact, SARINA: -Sclera conjunctiva: Unremarkable. NECK: -Supple ([id number]-bi-qzhan): non-tender. CARD: -Rate and rhythm: Regular -Edema: [...] the patient recommended close follow-up with her lead retail sales associate and outpatient beta hCG. In the meantime no strenuous activity, sexual activity if having any worsening issues I recommended he return to the emergency department or going directly to lead retail sales associate. Patient indicated she understood was in agreement. [...] AA >60 (more content not included)... Normal [facility] ED Note-Nursingon 03-09-2022 Beta HCG ( test) Ql (U) Patient arrives with c/o vaginal bleeding during . States she took a at home test a week ago and estimates being 5 to 6 weeks along. Patient has some mild cramping yesterday 11/07 at has since went away and light vaginal bleeding today. This is the patients second , 1 live . Normal [facility] ED Patient Summaryon 022 ED Patient Summary [facility] - Emergency Department [address] [place], [place] [id number] PATIENT DISCHARGE INSTRUCTIONS Patient Information Name: DIANE JOYCE Age: 26 Years Date of : 1995 [facility]: [id number] Reason For Visit: Vaginal bleeding - < 20 wks ; BLEEDING, Arrival Time: 03/09/2022 15:56:59 Primary Care Physician: Provider, None Attending Physician: Adrian Rosales MD Comment: Visit Diagnosis: Diagnoses This Visit Elevated blood pressure reading (R03.0) First trimester (Z34.91) Threatened miscarriage in early (O20.0) Vaginal bleeding (N93.9) Vaginal bleeding - < 20 wks ([id number]) Prescription Information: If you have been given a prescription for narcotics, seek immediate medical attention if you have any difficulty breathing or any sudden status changes such as confusion and sleepiness. If you or anyone you know is experiencing suicidal thoughts, mental health, alcohol and/or drug addiction problems; contact the [facility] 21/05 Crisis Hotline -text 4hope to 741741. [...] documents With: Address: When: Follow-up with your lead retail sales associate for reevaluation next few days. Within 1 to 2 days Comments: Follow-up with lead retail sales associate for reevaluation next few days for reevaluation and outpatient quantitative hCG. Return immediately for any worsening issues such as increasing abdominal pains, increasing vaginal bleeding, fevers, or any other problems. With: Address: When: Stephanie Padilla Within 3 to 5 days Comments: Sales Coordinator Medication Information: The exam and treatment you received today in the [facility] Emergency Department were for an urgent problem and are not intended as complete care. It is important for you to follow up with a doctor, nurse practitioner, or physician?s biology laboratory assistant for ongoing care. If your symptoms [...] so we can reach you if necessary. [facility] Emergency Department has provided you with a complete list of medications post discharge. Please inform your medical technologist clinical/provider of your visit and for further instruction [...] The sec (more content not included)... Normal [facility] Extra Greenon 03-09-2022 Tube Collected Yes Invalid Interpretation Code [facility] Comment on above: Performed By: #### 1 [id number], [id number], [id number], [id number] #### [facility] (DEFAULT) [address] [place] [address] PT/PTTon 03-09-2022 INR Coag (PPP) [Relative time] 0.95 {INR} Normal 0.91-1.11 [facility] Comment on above: Performed By: #### 1 [id number], [id number], [id number] #### [facility] (DEFAULT) [address] [place] [address] PT 10.3 second(s) Normal 9.7-11.8 [facility] Comment on above: Performed By: #### 1 [id number], [id number], [id number], [id number], [id number] #### [facility] (DEFAULT) 32 [place] [address] PTT 34 second(s) Normal 25-35 [facility] Comment on above: Performed By: #### 1 [id number], [id number], 2320114, [id number], 91417083, 2671464, [id number], [id number], [id number], 3688443 #### [facility] (DEFAULT) [address] [place] [address] RhIG.on 03-09-2022 RhIG. No. Vials RhI RhIG Candidate?: No Date to Give: [id number] RhIG Status: RhIG Ready Normal [facility] Comment on above: Performed By: #### 1 [id number], 15030146, 5108743, [id number], 30034156, 7414391, 7890134050, [id number], [id number], 7451491 ####[facility] (DEFAULT)[address] [place] [address] UA Eituz9hn 03-09-2022 UA Amorph. 1+ [facility] Comment on above: Order Comment: Urina lysis Microscopic order added on by Discern Expert Rules system. Performed By: #### 5 [id number], 0561619, [id number] ####[facility] (DEFAULT)[address] [place] [address] UA Bacteria 2+ [facility] Comment on above: Order Comment: Urina lysis Microscopic order added on by Discern Expert Rules system. Performed By: #### 5 [id number], 3805472, [id number] ####[facility] (DEFAULT)[address] [place] [address] UA Mucous 3+ [facility] Comment on above: Order Comment: Urina lysis Microscopic order added on by Discern Expert Rules system. Performed By: #### 5 [id number], 2709177, [id number] ####[facility] (DEFAULT)[address] [place] [address] UA RBC >100 [facility] Comment on above: Order Comment: Urina lysis Microscopic order added on by Discern Expert Rules system. Performed By: #### 5 1389511, 9112910, [id number] ####[facility] (DEFAULT)[address] [place] [address] UA Squam Epi Many [facility] Comment on above: Order Comment: Urina lysis Microscopic order added on by Discern Expert Rules system. Result Comment: DMITRY VERGARA RN IN ER. RUN UNINALYSIS AND CULTURE ON THIS SPECIMEN. NO RECOLLECT. Performed By: #### 5 [id number], 9843772, [id number] ####[facility] (DEFAULT)[address] [place] [address] UA WBC 3-5 [facility] Comment on above: Order Comment: Urina lysis Microscopic order added on by Discern Expert Rules system. Performed By: #### 5 [id number], 7196003, [id number] ####[facility] (DEFAULT)[address] [place] [address] UA w Culture if Ind Standard on 03-09-2022 Breakpoint UA [facility] Comment on above: Performed By: #### 1 7508289, 70430657, 2738263, [id number], 67164914, 7516212, 7228769170, 0309222994, [id number], 9912019 #### [facility] (DEFAULT) [address] [place] [address] Color (U) Yellow [facility] Comment on above: Performed By: #### 1 6997675, 82434834, 2086210, [id number], 71466280, 6952102, 4387688142, 9823307147, 1706645954, 8605296 #### [facility] (DEFAULT) [address] [place] [address] Culture? Indicated Invalid Interpretation Code [facility] Comment on above: Result Comment: Resu lt created by rule GL_MAGR_ADD_UA_CULT Result created by rule GL_MAGR_ADD_UA_CULT Result created by rule GL_MAGR_ADD_UA_CULT1 Result created by rule GL_MAGR_ADD_UA_CULT Performed By: #### 1 [id number], 54383233, 8548964, 4095478311, 27087281, 6538409, 7982311977, 8977373087, 5068167019, 4620149 #### [facility] (DEFAULT) [address] [place] [address] Glucose (U) [Mass/Vol] Negative [facility] Comment on above: Performed By: #### 1 3515016, 24397565, 4660118, 4027261127, 60638519, 4697111, 3158404150, 4661055195, 7397372484, 0622126 #### [facility] (DEFAULT) [address] [place] [address]98 Ketones Ql (U) 40 [facility] Comment on above: Performed By: #### 1 8917820, 62311681, 8832812, 0752057344, 80631022, 0294976, 1618210862, 1350670503, 5341662722, 0864809 #### [facility] (DEFAULT) [address] [place] [address] Micro? Indicated Invalid Interpretation Code [facility] Comment on above: Result Comment: Resu lt created by rule GL_MAGR_ADD_UA_MICRO Performed By: #### 1 7695095, 98404825, 3340245, 6394040218, 39348742, 2409339, 8655137667, 3834965777, 2577457750, 3301117 #### [facility] (DEFAULT) [address] [place] [address] UA Bilirubin Negative Normal [facility] Comment on above: Performed By: #### 1 6265410, 18166246, 7999455, 4109400280, 23708847, 8748877, 8912678441, 7438469966, 2476345661, 1619613 #### [facility] (DEFAULT) [address] [place] [address] UA Blood LARGE Abnormal NEGATIVE [facility] Comment on above: Performed By: #### 1 2631165, 39023336, 0420878, 5300963169, 78029713, 4927697, 5812993420, 9311932349, 5747665348, 2826361 #### [facility] (DEFAULT) [address] [place] [address] UA Clarity SL CLOUDY Abnormal CLEAR [facility] Comment on above: Performed By: #### 1 2255267, 23128794, 8584048, 0010069933, 86106429, 1828050, 4228134456, 0624230276, 0496599078, 2561601 #### [facility] (DEFAULT) [address] [place] [address] UA Leuk Est TRACE Abnormal NEGATIVE [facility] Comment on above: Performed By: #### 1 9038685, 30126974, 0716972, 9640916944, 65627353, 9230938, 8380235153, 2672130657, 9859692135, 7987279 #### [facility] (DEFAULT) [address] [place] [address] UA Nitrite Negative Normal NEGATIVE [facility] Comment on above: Performed By: #### 1 9177336, 67019120, 2062881, 0156635774, 61834069, 9562673, 1883872362, 4815894887, 1214591100, 9097499 #### [facility] (DEFAULT) [address] [place] [address] UA pH 6.5 Normal 5-8 [facility] Comment on above: Performed By: #### 1 8860898, 65717008, 1118631, 9969178717, 53149309, 4075090, 1273608695, 9928982267, 4261439696, 0201388 #### [facility] (DEFAULT) [address] [place] [address] UA Protein Negative Normal NEGATIVE [facility] Comment on above: Performed By: #### 1 2287158, 26960444, 1456497, 6802969130, 67531864, 4476434, 2967497541, 0567361517, 5484708823, 9750729 #### [facility] (DEFAULT) [address] [place] [address] UA Spec Grav 1.015 Normal 1.001-1.035 [facility] Comment on above: Performed By: #### 1 7065933, 64050776, 8289447, 0906124267, 05647875, 4647502, 1622833170, 9587640954, 6740220205, 1043133 #### [facility] (DEFAULT) [address] [place] [address] UA Urobilinogen 0.2 mg/dL Normal 0.2-1.0 [facility] Comment on above: Performed By: #### 1 2879499, 13786266, 3486805, 6989635154, 00335709, 6890062, 5140016945, 4553532771, 6109912372, 1910201 #### [facility] (DEFAULT) [address] [place] [address] Urine Source Clean Catch [facility] Comment on above: Performed By: #### 1 1787231, 18078467, 3598039, 4633279116, 33019469, 2761145, 4004210336, 9453269998, 4648122722, 5222080 #### [facility] (DEFAULT) [address] [place] [address] US 1st Trimesteron 03-09-2022 US 1st Trimester [...] Sebastian Guzman 03/09/22 6:10 pm Technologist: PM [facility] US Transvaginalon 03-09-2022 US Transvaginal [...] Guzman 03/09/22 6:10 pm Technologist: PM Normal [facility] hCG Quantitativeon hCG Quantitative 7.1 mIU/mL High 0.0-0.6 [facility] Comment on above: Result Comment: Post -Menopausal Reference Range is: 0.1-11.6 mIU/mL Performed By: #### 1 9247831, 31767835, 1275081, 3052711686, 11992584, 8879823, 4153413362, 1414850939, 2350266986, 5841042 #### [facility] (DEFAULT) [address] [place] [address] Vital Signs Date Time Vital Sign Value Performing Clinician Facility 12-13-2023 15:00-0500 Body mass index (BMI) [Ratio] 46.69 kg/m2 [facility] Nurse [facility] 12-13-2023 15:00-0500 Body weight 123.38 kg [facility] Nurse [facility] 12-13-2023 15:00-0500 Diastolic blood pressure 78 mm[Hg] [facility] Nurse [facility] 12-13-2023 15:00-0500 Systolic blood pressure 128 mm[Hg] [facility] Nurse [facility] 05-15-2023 18:30-0400 Body height 161.29 cm Linsey Witt Other [facility] 05-15-2023 18:30-0400 Body mass index (BMI) [Ratio] 43.41 kg/m2 Linsey Eduar Other [facility] 05-15-2023 18:30-0400 Body temperature 99.2 [degF] Linsey Witt Other [facility] Other 05-15-2023 18:30-0400 Body weight 112.95 kg Linsey Eduar Other [facility] Other 05-15-2023 18:30-0400 Respiratory rate 18 /min Linsey Witt Other [facility] Other 05-15-2023 18:30-0400 SaO2% (BldA) [Mass fraction] 99 % Linsey Witt Other [facility] Other 05-09-2023 11:00-0400 Body height 161.29 cm Gissel Santana Other [facility] Other 05-09-2023 11:00-0400 Body mass index (BMI) [Ratio] 43.59 kg/m2 Gissel Santana Other [facility] Other 05-09-2023 11:00-0400 Body weight 113.4 kg Gissel Santana Other [facility] Other 05-09-2023 11:00-0400 Diastolic blood pressure 83 mm[Hg] Gissel Santana Other [facility] Other 05-09-2023 11:00-0400 Systolic blood pressure 119 mm[Hg] Gissel Santana Other [facility] Other 04-12-2023 09:00-0400 Body height 161.29 cm Gissel Santana Other [facility] Other 04-12-2023 09:00-0400 Body mass index (BMI) [Ratio] 43.59 kg/m2 Gissel Santana Other [facility] Other 04-12-2023 09:00-0400 Body weight 113.4 kg Gissel Santana Other [facility] Other 04-12-2023 09:00-0400 Diastolic blood pressure 88 mm[Hg] Gissel Santana Other [facility] Other 04-12-2023 09:00-0400 Systolic blood pressure 129 mm[Hg] Gissel Santana Other [facility] Other 10-11-2022 02:06-0500 Body weight 111.[address] ESTELLA MIN . [facility] Comment on above: Performed By: #### AFPMAT #### [facility] [address] [place] [address] Dr. 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 Linsey Witt Work Phone: [facility] [place] Work Phone: Start: 05-15-2023 End: 05-15-2023 ambulatory 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 LAYING MACHINE OPERATOR Linsey Witt Work Phone: [facility] Work Phone: Start: 05-15-2023 Office outpatient vi sit 25 minutes Linsey Witt [facility] Start: 05-09-2023 End: 05-09-2023 ambulatory Gissel Santana Other [facility] Other Start: 05-09-2023 Office outpatient vi sit 15 minutes Gissel Santana [facility] Start: 04-12-2023 End: 04-12-2023 ambulatory Gissel Santana Other [facility] Other Start: 04-12-2023 Encounter for genera l adult medical examination without abnormal findings Gissel Santana [facility] Start: 04-12-2023 Periodic preventive med est patient 18-39 yrs Gissel Santana [facility] Start: 02-15-[address] ESTELLA MIN [...] encounter procedure 01/14/2024 8:30 AM EDT Routine [facility] [address] [place] [id number] Estella Min, DO [address] [place] [address] [facility] Start: 12-13-2023 End: 12-13-2024 ABO/Rh ABO/Rh Lab Routine Missed menses Expected: 12/13/2023 (Approximate), Expires: 12/13/2024 [facility] Comment on above: Expected: 12/13/2023 (Approximate), Expires: 12/13/2024 Start: 12-13-2023 End: 12-13-2024 Blood type and Indirect antibody screen panel - Blood Type and screen Lab Routine Missed menses Expected: 12/13/2023 (Approximate), Expires: 12/13/2024 [facility] Work Phone: Comment on above: Expected: 12/13/2023 (Approximate), Expires: 12/13/2024 Start: 12-13-2023 End: 12-13-2024 Thyroid panel with tsh Thyroid panel with tsh Lab Routine Missed menses Expected: 12/13/2023 (Approximate), Expires: 12/13/2024 [facility] Comment on above: Expected: 12/13/2023 (Approximate), Expires: 12/13/2024 Start: 12-13-2023 End: 12-13-2024 US Pelvis transvaginal US OB transvaginal Imaging Routine Missed menses Expected: 12/13/2023 (Approximate), Expires: 12/13/2024 [facility] Comment on above: Expected: 12/13/2023 (Approximate), Expires: 12/13/2024 Start: 05-15-2023 Throat culture Throat Culture [facility] Bacteria identified in Urine by Culture Urine culture Microbiology Routine Missed menses Ordered: 12/13/2023 [facility] Comment on above: Ordered: 12/13/2023 CBC W Auto Different ial panel - Blood CBC and differential Lab Routine Missed menses Ordered: 12/13/2023 [facility] Comment on above: Ordered: 12/13/2023 Hemoglobin A1c/Hemoglobin.total in Blood Hemoglobin A1c Lab Routine Missed menses Ordered: 12/13/2023 [facility] Comment on above: Ordered: 12/13/2023 Hepatitis B virus surface Ag [Presence] in Serum or Plasma by Immunoassay Hepatitis B surface antigen Lab Routine Missed menses Ordered: 12/13/2023 [facility] Comment on above: Ordered: 12/13/2023 Hepatitis C virus Ab [Presence] in Serum or Plasma by Immunoassay Hepatitis C antibody Lab Routine Missed menses Ordered: 12/13/2023 [facility] Comment on above: Ordered: 12/13/2023 HIV-1/HIV-2 antigen/antibody combination immunoassay HIV-1 and HIV-2 antibodies Lab Routine Missed menses Ordered: 12/13/2023 [facility] Comment on above: Ordered: 12/13/2023 Reagin Ab [Presence] in Serum by RPR RPR Lab Routine Missed menses Ordered: 12/13/2023 [facility] Comment on above: Ordered: 12/13/2023 Rubella antibody, IgG Rubella an tibody, IgG Lab Routine Missed menses Ordered: 12/13/2023 [facility] Comment on above: Ordered: 12/13/2023 Payers Date Payer Category Payer Unknown BCBS BCBS [id number] [id number] 2020-Present [phone] [address] [place] [address] [id number] 1994 Unknown [id number] 2.16.840.1.321154.3.579.2.593 1994 Unknown [id number] 2.16.840.1.237134.3.579.2.593 1994 Unknown [id number] 2.16.840.1.098681.3.579.2.593 1994 Unknown [id number] 2.16.840.1.793674.3.579.2.593 1994 Unknown [id number] 2.16.840.1.876909.3.579.2.593 1994 Unknown [id number] 2.16.840.1.638403.3.579.2.593 1994 Unknown [id number] 2.16.840.1.047396.3.579.2.593 1994 Unknown [id number] 2.16.840.1.277070.3.579.2.593 1994 Unknown [id number] 2.16.840.1.574902.3.579.2.593 1994 Unknown [id number] 2.16.840.1.537857.3.579.2.593 1994 Unknown [id number] 2.16.840.1.423799.3.579.2.593 1994 Unknown [id number] 2.16.840.1.908444.3.579.2.593 1994 Unknown [id number] 2.16.840.1.152628.3.579.2.593 1994 Unknown [id number] 2.16.840.1.811444.3.579.2.593 1994 Unknown [id number] 2.16.840.1.435702.3.579.2.593 1994 Unknown [id number] 2.16.840.1.093485.3.579.2.593 1994 Unknown [id number] 2.16.840.1.313446.3.579.2.593 1994 Unknown [id number] 2.16.840.1.491123.3.579.2.593 1994 Unknown [id number] 2.16.840.1.268209.3.579.2.593 1994 Unknown [id number] 2.16.840.1.792427.3.579.2.593 1994 Unknown [id number] 2.16.840.1.356719.3.579.2.593 1994 Unknown [id number] 2.16.840.1.931933.3.579.2.593 1994 Unknown [id number] 2.16.840.1.206103.3.579.2.593 1994 Unknown [id number] 2.16.840.1.131016.3.579.2.593 1994 Unknown [id number] 2.16.840.1.108274.3.579.2.1259 1994 Unknown [id number] 2.16.840.1.775654.3.579.2.1259 1994 Unknown [id number] 2.16.840.1.227573.3.579.2.1259 1994 Unknown [id number] 2.16.840.1.080026.3.579.2.1259 1994 Unknown [id number] 2.16.840.1.995634.3.579.2.1259 1994 Unknown [id number] 2.16.840.1.092468.3.579.2.1259 1994 Unknown [id number] 2.16.840.1.019569.3.579.2.1259 1959 Self-pay 1959 Unknown [id number] Unknown [id number] 2.16.840.1.960646.3.579.2.593 Unknown [id number] 2.16.840.1.620838.3.579.2.531 Social History Date Type Detail Facility Unknown if ever smoked [facility] Other Start: 03-12-2023 Sex [address] [facility] Other Start: 1994 Sex Assigned At Female F [facility] Start: 03-12-2023 Tobacco smoking status NHIS [...] or undercooked meat, and stay away from [facility]. Patient has also been advised to [...] Meenakshi Rosenthal MA documented in this encounter [facility] 05-15-2023 Evaluation note Encounter Date Diagnosis [...] understanding and is agreeable to treatment plan. [facility] Other 07-12-2023 Evaluation note* Encounter Date Diagnosis Assessment Notes Treatment Notes Treatment Clinical Notes Apr, Anxiety disorder, unspecified (ICD-10 - F41.9) Pt states that she, and her , agree that she is doing better on the medication. Continues to have stress, but is dealing more appropriately. Would like to continue this med and this dose. f/u6 months, sooner if needed. [facility] Other 06-15-2023 Evaluation note* Encounter Date Diagnosis [...] help for overwhelm. followup in 1 month [facility] Other 05-12-2022 NoteEducation Materials Cardiovascular Hypertension, Adult [...] without skin, beans, e (more content not included)...[facility] noteNo assessment information availablePremier Health [facility] Work Phone: Evaluation noteNo InformationNortAC[facility] Hospital [facility] Other Evaluation note* Diagnosis Missed menses documented in this encounter [facility] HealthcareHistory general Narrative - Reported* Type Description Date Surgical History C-sect 2019 Surgical History C-sect 2022 [facility] Other History general Narrative - Reported* Type Description Date Medical History Anxiety disorder, unspecified Surgical History C-sect 2019 Surgical History C-sect 2022 Hospitalization History SEE SURGICAL [facility] Other History general Narrative - Reported* Type Description Date Medical History Anxiety disorder, unspecified Medical History Gestational diabetes Surgical History C-sect 2019 Surgical History C-sect 2022 Hospitalization History SEE SURGICAL [facility] Other Summary Purpose Family History No Family History Records FoundNo Family History Records FoundNo Family History Records FoundNo Family History Records Found Advance Directives No Advanced Directives Records FoundNo Advanced Directives Records FoundNo Advanced Directives Records FoundNo Advanced Directives Records Found Additional Source Comments INFORMATION SOURCE (unrecogn ized section and content) DATE CREATED AUTHOR 03/18/2022 [facility] DATE CREATED AUTHOR AUTHOR'S ORGANIZ ATION 02/15/2023 [facility] DATE CREATED AUTHOR AUTHOR'S ORGANIZ ATION 05/24/2023 [facility] DATE CREATED AUTHOR AUTHOR'S ORGANIZ ATION 05/21/2024 [facility] EPIC REASON FOR VISIT (unrecogniz ed section and content) Reason Comments Amenorrhea Care Teams (unrecognized sec tion and content) Team Status: Inactive Member Role Status Dates Linsey Witt APRN Attending Provider Active Back Up Scan Coordinator Relationship Specialty Start Date End Date Gissel Santana MD [address] [place] [address] PCP - General Family Medicine [...] BE BASED ON THE PRIMARY CLINICAL RECORDS. [employer] [facility]. provides no warranty or guarantee of the accuracy or completeness of information in this document.
[2024-05-31 11:06] VITALS: BP 135/88; PULSE 95
[2024-05-31 11:37] VITALS: BP 120/80; PULSE 94
== END 2024-05-31 11:48 | disposition home or self-care (01) ==
LOC: FBCO 06:37 → FBC 10:59
PROVIDERS: Visit Provider Obstetrics & Gynecology
DX: O24.419 Gestational diabetes mellitus in pregnancy, unspecified control (principal)
CPT/HCPCS: 59025

== ENCOUNTER 2024-06-04 07:57 | Outpatient (OUT) | payer BC, SELFPAY ==
--- OUTSIDE RECORDS SUMMARY | 2024-06-04 08:01 | XMS_ITS | CCD ---
Author Organization [facility] Care Team Providers Care Clinical Director Name Role Phone MECHELLE ., DR SORIA [...] Unavailable MECHELLE ., DR SORIA Admitting Unavailable [place], Sebastian Consulting Unavailable SANTANA, DR GISSEL Teresa Primary Care Unavailable MECHELLE ., DR SORIA Consulting Unavailable SANTANA, DR GISSEL Teresa Primary Care Unavailable MECHELLE ., DR SORIA Admitting Unavailable MECHELLE ., DR SORIA Attending Unavailable Gissel Santana Unavailable TERESA Witt Attending Provider [phone] Olive Howard Unavailable Linsey Witt Attending Unavailable [...] Interpretation and review of laboratory results Abnormal [facility] Preg Test, Ur Positive [facility] Urinalysis macro (dipstick) panel (U)on 12-13-2023 Bilirubin, UA Negative Negative - 4(70) +++ mg/dL [facility] Blood, UA Negative Negative - 50 Sal/mcL [facility] Clarity, UA Clear [facility] Color, UA Yellow [facility] Glucose, UA Negative Negative - 1999(110) ++++ mg/dL [facility] Interpretation and review of laboratory results Abnormal [facility] re Ketones, UA Positive Negative - 160(16) ++++ mg/dL [facility] Leukocytes, UA Negative Negative - 500+++ Lizzy/mcL [facility] Nitrite, UA Negative Negative - Positive [facility] pH, UA 7.0 5 - 9 [facility] Protein, UA Positive Negative - 1999(20) ++++ mg/dL [facility] Spec Grav, UA 1.030 1 - 1.03 [facility] Urobilinogen, UA 0.2 0.2 - 12 mg/dL [facility] Quick Strepon 05-15-2023 S. pyogenes Org specific cx Ql (Throat) Negative [facility] Other Quick Strep [facility] Other Throat Cultureon 05-15-2023 Throat culture Heavy Normal Respiratory John 2 Days PERFORMED BY: [place] [id number] [place] [address] PATHOLOGIST [employer] ARACELI HAYWOOD M.D. Normal [facility] Comment on above: Performed By: #### C MD #### [facility] [address] GROUP B STREP CULTUREon 01-27 [...] F Tetracycline <=0.25 S F Normal [facility] Comment on above: Performed By: #### A FPMAT #### [facility] [address] [place] [address] Dr. Alexsander Dickinson CBC AUTO DIFFon 02-02-2023 BASO # 0.0 103/ul Normal 0.0-0.[address] [facility] Comment on above: Performed By: #### C BC #### [facility] [address] [place] [address] Dr. Alexsander Dickinson Basophils/100 WBC (Bld) 0.2 % Normal 0.2-2.[address] [facility] Comment on above: Performed By: #### C BC #### [facility] [address] [place] [address] Dr. Alexsander Dickinson EO # 0.0 103/ul Normal 0.0-0.[address] [facility] Comment on above: Performed By: #### C BC #### [facility] [address] [place] [address] Dr. Alexsander Dickinson Eosinophils/100 WBC (Bld) 0.0 % Critically low 0.9-7.[address] [facility] Comment on above: Performed By: #### C BC #### [facility] [address] [place] [address] Dr. Alexsander Dickinson Erythrocyte distribution width (RBC) [Ratio] 12.5 % Normal 11.0-15.[address] [facility] Comment on above: Performed By: #### C BC #### [facility] [address] [address] [address] Alexsander Dickinson Hematocrit (Bld) [Volume fraction] 32.9 % Critically low 36.0-48.[address] [facility] Comment on above: Performed By: #### C BC #### [facility] [address] [place] [address] Dr. Alexsander Dickinson Hemoglobin (Bld) [Mass/Vol] 10.7 g/dL Critically low 12.0-16.[address] [facility] Comment on above: Performed By: #### C BC #### [facility] [address] [place] [address] Dr. Alexsander Dickinson IG # 0.12 10e3/ul Critically high 0.00-0.03 [facility] Comment on above: Performed By: #### C BC #### [facility] [address] [place] [address] Dr. Alexsander Dickinson IG % 0.7 % Critically high 0.0-0.5 [facility] Comment on above: Performed By: #### C BC #### [facility] [address] [place] [address] Dr. Alexsander Dickinson LYMPH # 1.1 103/ul Critically low 1.2-3.8 [facility] Comment on above: Performed By: #### C BC #### [facility] [address] [place] [address] Dr. Alexsander Dickinson Lymphocytes/100 WBC (Bld) 6.4 % Critically low 20.5-60.[address] [facility] Comment on above: Performed By: #### C BC #### [facility] [address] [place] [address] Dr. Alexsander Dickinson MANUAL DIFF REQ NO Normal [facility] Comment on above: Performed By: #### C BC #### [facility] [address] [place] [address] Dr. Alexsander Dickinson MCH (RBC) [Entitic mass] 26.1 pg Critically low 26.7-34.[address] [facility] Comment on above: Performed By: #### C BC #### [facility] [address] [address] [address] Alexsander Dickinson MCHC (RBC) [Mass/Vol] 32.5 g/dL Normal 29.9-35.[address] [facility] Comment on above: Performed By: #### C BC #### [facility] [address] [address] [address] Alexsander Dickinson MCV (RBC) [Entitic vol] 80.2 fL Critically low 81.0-99.[address] [facility] Comment on above: Performed By: #### C BC #### [facility] [address] [address] [address] Alexsander Dickinson MONO # 0.4 103/ul Normal 0.3-0.[address] [facility] Comment on above: Performed By: #### C BC #### [facility] [address] [place] [address] Dr. Alexsander Dickinson Monocytes/100 WBC (Bld) 2.1 % Normal 1.7-12.[address] [facility] Comment on above: Performed By: #### C BC #### [facility] [address] [place] [address] Dr. Alexsander Dickinson NEUT # 15.5 103/ul Critically high 1.4-6.5 [facility] Comment on above: Performed By: #### C BC #### [facility] [address] [place] [address] Dr. Alexsander Dickinson Neutrophils/100 WBC (Bld) 90.6 % Critically high 43.0-75.0 [facility] Comment on above: Performed By: #### C BC #### [facility] [address] [place] [address] Dr. Alexsander Dickinson Platelet mean volume (Bld) [Entitic vol] 10.7 fL Normal 9.5-13.5 [facility] Comment on above: Performed By: #### C BC #### [facility] [address] [place] [address] Dr. Alexsander Dickinson PLT 310 103/ul Normal 150-450 [facility] Comment on above: Performed By: #### C BC #### [facility] [address] [address] [address] Alexsander Dickinson RBC 4.10 106/ul Critically low 4.20-5.40 [facility] Comment on above: Performed By: #### C BC #### [facility] [address] [address] [address] Alexsander Dickinson WBC 17.1 103/ul Critically high 4.0-11.0 [facility] Comment on above: Performed By: #### C BC #### [facility] [address] [place] [address] Dr. Alexsander Dickinson CBC AUTO DIFFon 02-01-2023 BASO # 0.0 103/ul Normal 0.0-0.1 [facility] Comment on above: Performed By: #### A 1C #### [facility] [address] [place] [address] Dr. Alexsander Dickinson Basophils/100 WBC (Bld) 0.2 % Normal 0.2-2.[address] [facility] Comment on above: Performed By: #### A 1C #### [facility] [address] [place] [address] Dr. Alexsander Dickinson EO # 0.0 103/ul Normal 0.0-0.7 [facility] Comment on above: Performed By: #### A 1C #### [facility] [address] [place] [address] Dr. Alexsander Dickinson Eosinophils/100 WBC (Bld) 0.4 % Critically low 0.9-7.0 [facility] Comment on above: Performed By: #### A 1C #### [facility] [address] [place] [address] Dr. Alexsander Dickinson Erythrocyte distribution width (RBC) [Ratio] 12.9 % Normal 11.0-15.0 [facility] Comment on above: Performed By: #### A 1C #### [facility] [address] [place] [address] Dr. Alexsander Dickinson Hematocrit (Bld) [Volume fraction] 34.2 % Critically low 36.0-48.[address] [facility] Comment on above: Performed By: #### A 1C #### [facility] [address] [address] [address] Alexsander Dickinson Hemoglobin (Bld) [Mass/Vol] 11.4 g/dL Critically low 12.0-16.[address] [facility] Comment on above: Performed By: #### A 1C #### [facility] [address] [address] [address] Alexsander Dickinson IG # 0.04 10e3/ul Critically high 0.00-0.03 [facility] Comment on above: Performed By: #### A 1C #### [facility] [address] [place] [address] Dr. Alexsander Dickinson IG % 0.5 % Normal 0.0-0.[address] [facility] Comment on above: Performed By: #### A 1C #### [facility] [address] [place] [address] Dr. Alexsander Dickinson LYMPH # 2.1 103/ul Normal 1.2-3.8 [facility] Comment on above: Performed By: #### A 1C #### [facility] [address] [place] [address] Dr. Alexsander Dickinson Lymphocytes/100 WBC (Bld) 23.9 % Normal 20.5-60.[address] [facility] Comment on above: Performed By: #### A 1C #### [facility] [address] [place] [address] Dr. Alexsander Dickinson MANUAL DIFF REQ NO Normal [facility] Comment on above: Performed By: #### A 1C #### [facility] [address] [place] [address] Dr. Alexsander Dickinson MCH (RBC) [Entitic mass] 27.0 pg Normal 26.7-34.[address] [facility] Comment on above: Performed By: #### A 1C #### [facility] [address] [place] [address] Dr. Alexsander Dickinson MCHC (RBC) [Mass/Vol] 33.3 g/dL Normal 29.9-35.2 [facility] Comment on above: Performed By: #### A 1C #### [facility] [address] [place] [address] Dr. Alexsander Dickinson MCV (RBC) [Entitic vol] 81.0 fL Normal 81.0-99.0 [facility] Comment on above: Performed By: #### A 1C #### [facility] [address] [place] [address] Dr. Alexsander Dickinson MONO # 0.5 103/ul Normal 0.3-0.8 [facility] Comment on above: Performed By: #### A 1C #### [facility] [address] [place] [address] Dr. Alexsander Dickinson Monocytes/100 WBC (Bld) 6.0 % Normal 1.7-12.0 [facility] Comment on above: Performed By: #### A 1C #### [facility] [address] [place] [address] Dr. Alexsander Dickinson NEUT # 5.9 103/ul Normal 1.4-6.5 [facility] Comment on above: Performed By: #### A 1C #### [facility] [address] [place] [address] Dr. Alexsander Dickinson Neutrophils/100 WBC (Bld) 69.0 % Normal 43.0-75.0 [facility] Comment on above: Performed By: #### A 1C #### [facility] [address] [place] [address] Dr. Alexsander Dickinson Platelet mean volume (Bld) [Entitic vol] 10.5 fL Normal 9.5-13.5 [facility] Comment on above: Performed By: #### A 1C #### [facility] [address] [place] [address] Dr. Alexsander Dickinson PLT 275 103/ul Normal 150-450 [facility] Comment on above: Performed By: #### A 1C #### [facility] [address] [place] [address] Dr. Alexsander Dickinson RBC 4.22 106/ul Normal 4.20-5.40 [facility] Comment on above: Performed By: #### A 1C #### [facility] [address] [place] [address] Dr. Alexsander Dickinson WBC 8.6 103/ul Normal 4.0-11.[address] [facility] Comment on above: Performed By: #### A 1C #### [facility] [address] [place] [address] Dr. Alexsander Dickinson LDHon 02-01-2023 LDH 124 U/L Normal 81-[address] [facility] Comment on above: Performed By: #### C MP, LDH, URIC #### [facility] [address] [place] [address] Dr. Alexsander Dickinson POINT OF CARE GLUCOSEon Glucose [Mass/Vol] 98 mg/dL Normal 74-106 [facility] Comment on above: Performed By: #### A 1C #### [facility] [address] [place] [address] Dr. Alexsander Dickinson PROF 14(COMP METB)on 023 Albumin [Mass/Vol] 2.5 g/dL Critically low 3.4-5.0 [facility] Comment on above: Performed By: #### C MP, LDH, URIC #### [facility] [address] [place] [address] Dr. Alexsander Dickinson Albumin/Globulin [Mass ratio] 0.6 {ratio} Normal [facility] Comment on above: Performed By: #### C MP, LDH, URIC #### [facility] [address] [place] [address] Dr. Alexsander Dickinson ALP [Catalytic activity/Vol] 138 U/L Critically high 46-[address] [facility] Comment on above: Performed By: #### C MP, LDH, URIC #### [facility] [address] [place] [address] Dr. Alexsander Dickinson ALT [Catalytic activity/Vol] 15 U/L Normal 14-[address] [facility] Comment on above: Performed By: #### C MP, LDH, URIC #### [facility] [address] [place] [address] Dr. Alexsander Dickinson Anion gap [Moles/Vol] 14.5 mmol/L Normal [facility] Comment on above: Performed By: #### C MP, LDH, URIC #### [facility] [address] [address] [address] Alexsander iDckinson AST [Catalytic activity/Vol] 8 U/L Critically low 15-[address] [facility] Comment on above: Performed By: #### C MP, LDH, URIC #### [facility] [address] [address] [address] Alexsander Dickinson Bilirubin [Mass/Vol] 0.2 mg/dL Normal 0.2-1.[address] [facility] Comment on above: Performed By: #### C MP, LDH, URIC #### [facility] [address] [address] [address] Alexsander Dickinson Calcium [Mass/Vol] 8.6 mg/dL Normal 8.5-10.1 [facility] Comment on above: Performed By: #### C MP, LDH, URIC #### [facility] [address] [place] [address] Dr. Alexsander Dickinson Chloride [Moles/Vol] 103 mmol/L Normal 98-[address] [facility] Comment on above: Performed By: #### C MP, LDH, URIC #### [facility] [address] [address] [address] Alexsander Dickinson CO2 [Moles/Vol] 23.7 mmol/L Normal 21.0-32.0 [facility] Comment on above: Performed By: #### C MP, LDH, URIC #### [facility] [address] [address] [address] Alexsander Dickinson Creatinine [Mass/Vol] 0.61 mg/dL Normal 0.55-1.[address] [facility] Comment on above: Performed By: #### C MP, LDH, URIC #### [facility] [address] [address] [address] Alexsander Dickinson EGFR-AF CITIZEN [place] >60 Normal >=60 [facility] Comment on above: Performed By: #### C MP, LDH, URIC #### [facility] [address] [place] [address] Dr. Alexsander Dickinson EGFR-NON AF CITIZEN [place] >60 Normal >=[address] [facility] Comment on above: Performed By: #### C MP, LDH, URIC #### [facility] [address] [address] [address] Alexsander Dickinson Globulin (S) [Mass/Vol] 4.1 g/dL Normal [facility] Comment on above: Performed By: #### C MP, LDH, URIC #### [facility] [address] [address] [address] Alexsander Dickinson Glucose [Mass/Vol] 123 mg/dL Critically high 74-106 [facility] Comment on above: Performed By: #### C MP, LDH, URIC #### [facility] [address] [place] [address] Dr. Alexsander Dickinson Potassium [Moles/Vol] 4.2 mmol/L Normal 3.5-5.[address] [facility] Comment on above: Performed By: #### C MP, LDH, URIC #### [facility] [address] [place] [address] Dr. Alexsander Dickinson Protein [Mass/Vol] 6.6 g/dL Normal 6.4-8.2 [facility] Comment on above: Performed By: #### C MP, LDH, URIC #### [facility] [address] [place] [address] Dr. Alexsander Dickinson Sodium [Moles/Vol] 137 mmol/L Normal 136-145 [facility] Comment on above: Performed By: #### C MP, LDH, URIC #### [facility] [address] [place] [address] Dr. Alexsander Dickinson Urea nitrogen [Mass/Vol] 5.0 mg/dL Critically low 7.0-18.[address] [facility] Comment on above: Performed By: #### C MP, LDH, URIC #### [facility] [address] [place] [address] Dr. Alexsander Dickinson Urea nitrogen/Creatinine [Mass ratio] 8.2 mg/mg Normal [facility] Comment on above: Performed By: #### C MP, LDH, URIC #### [facility] [address] [place] [address] Dr. Alexsander Dickinson PROTIMEon 02-01-2023 INR Coag (PPP) [Relative time] {INR} Normal [facility] Comment on above: Performed By: #### H BSANS #### [facility] [address] [place] [address] Dr. Alexsander Dickinson INR GUIDELINES SEE BELOW Normal [facility] Comment on above: Result Comment: CAROLEE RED INR: 2.0 - 3.0 CONDITIONS NOT LISTED BELOW 2.5 - 3.5 FOR PROSTHETIC HEART VALVE REPLACEMENT 2.5 - 3.5 RECURRENT THROMBOSIS Performed By: #### H BSANS #### [facility] [address] [place] [address] Dr. Alexsander Dickinson PT Coag (PPP) [Time] 9.2 s Normal 9.0-11.6 [facility] Comment on above: Performed By: #### H BSANS #### [facility] [address] [place] [address] Dr. Alexsander Dickinson PTTon 02-01-2023 aPTT Coag (Bld) [Time] 25.9 s Normal 22.3-36.[address] [facility] Comment on above: Performed By: #### H BSANS #### [facility] [address] [place] [address] Dr. Alexsander Dickinson TYPE AND SCREENon 02-01-2023 TYPE AND SCREEN Negative Normal [facility] Comment on above: Performed By: #### A FPMAT #### [facility] [address] [place] [address] Dr. Alexsander Dickinson URIC ACID SERUMon 02-01-2023 Urate [Mass/Vol] 5.5 mg/dL Normal 2.6-6.0 [facility] Comment on above: Performed By: #### C MP, LDH, URIC #### [facility] [address] [place] [address] Dr. Alexsander Dickinson US PREG BIOPHY W [...] by: DEE GALLEGOS Date: 2023-02-01 15:[address] [facility] US PREG BIOPHY W NON STRESSo [...] by: SEBASTIAN HENRY Date: 2023-01-25 15:[address] [facility] US PREG BIOPHY W NON STRESSo [...] by: DEE GALLEGOS Date: 2023-01-19 06:[address] [facility] US PREG BIOPHY W NON STRESSo [...] DEE GALLEGOS Date: 2023-01-11 15:38 Normal [facility] US PREG GROWTHon 01-11-2023 US PREG [...] DEE GALLEGOS Date: 2023-01-11 16:42 Normal [facility] GTT 3 HR PREGon 12-01-2022 Glucose [Mass/Vol] 104 mg/dL Normal 74-106 [facility] Comment on above: Performed By: #### A 1C #### [facility] [address] [address] [address] Alexsander Dickinson Glucose [Mass/Vol] 182 mg/dL Normal [facility] Comment on above: Performed By: #### A 1C #### [facility] [address] [address] [address] Alexsander Dickinson Glucose [Mass/Vol] 114 mg/dL Normal [facility] Comment on above: Performed By: #### A 1C #### [facility] [address] [place] [address] Dr. Alexsander Dickinson Glucose [Mass/Vol] 73 mg/dL Normal [facility] Comment on above: Performed By: #### A 1C #### [facility] [address] [address] [address] Alexsander Dickinson PAP ACOG PANEL 2: 21 to 28on 11-18-2022 . . Normal [facility] Comment on above: Performed By: #### A 1C #### [facility] [address] [place] [address] Dr. Alexsander Dickinson Age Gdln ACOG Testing 21-29 [facility] Comment on above: Performed By: #### A 1C #### [facility] [address] [place] [address] Dr. Alexsander Dickinson DIAGNOSIS: Comment [facility] Comment on above: Result Comment: NEGA TIVE FOR INTRAEPITHELIAL LESION OR MALIGNANCY. Performed By: #### A 1C #### [facility] [address] [place] [address] Dr. Alexsander Dickinson Methodology: Comment [facility] Comment on above: Result Comment: This liquid based ThinPrep(R) pap test was screened with the use of an image guided system. Performed By: #### A 1C #### [facility] [address] [place] [address] Dr. Alexsander Dickinson Note: Comment [facility] [...] . Performed By: #### A 1C #### [facility] [address] [place] [address] Dr. Alexsander Dickinson Performed by: Comment Normal [facility] Comment on above: Result Comment: Cici Clarke, [employer] (ASCP) Performed By: #### A 1C #### [facility] [address] [place] [address] Dr. Alexsander Dickinson Reflex Criteria: Comment [facility] Comment on above: Result Comment: The HPV DNA reflex criteria were not met with this specimen result therefore, no HPV testing was performed. . Performed By: #### A 1C #### [facility] [address] [place] [address] Dr. Alexsander Dickinson Specimen adequacy: Comment Normal [facility] Comment on above: Result Comment: Sati sfactory for evaluation. No endocervical component is identified. Performed By: #### A 1C #### [facility] [address] [place] [address] Dr. Alexsander Dickinson CHLAMYDIA/GONOCOCCUS ZUNILDA (SW AB/URINE/PAPon 11-17-2022 Chlamydia trachomatis, ZUNILDA Negative Normal Negative [facility] Comment on above: Performed By: #### A 1C #### [facility] [address] [place] [address] Dr. Alexsander Dickinson Neisseria gonorrhoeae, ZUNILDA Negative Normal Negative [facility] Comment on above: Performed By: #### A 1C #### [facility] [address] [place] [address] Dr. Alexsander Dickinson VAGINITIS/VAGINOSIS DNA PROB Jose De Jesus 11-16-2022 Reema species Negative Normal Negative [facility] Comment on above: Performed By: #### V AGINT #### [facility] [address] [place] [address] Dr. Alexsander Dickinson Gardnerella vaginalis Negative Normal Negative [facility] Comment on above: Performed By: #### V AGINT #### [facility] [address] [place] [address] Dr. Alexsander Dickinson Trichomonas vaginalis Negative Normal Negative [facility] Comment on above: Performed By: #### V AGINT #### [facility] [address] [place] [address] Dr. Alexsander Dickinson US PREG INCOMPLETE ANATOMYon 11-14-2022 US PREG INCOMPLETE ANATOMY EXAMINATION: US PREG INCOMPLETE ANATOMY HISTORY: screening COMPARISON: No relevant comparison available. FINDINGS: Heart rate: 150 bpm position: Variable Anatomy: 4.8 x 5.8 mm choroid plexus cyst is again identified IMPRESSION: Stable choroid plexus cyst Electronically authenticated by: SEBASTIAN HENRY Date: 2022-11-14 16:19 Normal [facility] FREE T4on 10-19-2022 Free T4 [Mass/Vol] 0.89 ng/dL Normal 0.76-1.46 [facility] Comment on above: Performed By: #### H BSANS #### [facility] [address] [address] [address] Alexsander Dickinson TSHon 10-19-2022 TSH 1.303 uIU/mL Normal 0.358-3.740 [facility] Comment on above: Performed By: #### H BSANS #### [facility] [address] [address] [address] Alexsander Dickinson US PREG ANATOMY SINGLEon [...] DEE GALLEGOS Date: 2022-10-17 20:42 Normal [facility] AFP MATERNAL FOR SPINA BIFID Aon 10-11-2022 AFP MoM 1.[address] [facility] Comment on above: Performed By: #### A FPMAT #### [facility] [address] [address] [address] Alexsander Dickinson AFP Value 60.8 ng/mL Normal [facility] Comment on above: Performed By: #### A FPMAT #### [facility] [address] [address] [address] Alexsander Dickinson AFP, Serum for Spina Bifida Report Normal [facility] Comment on above: Performed By: #### A FPMAT #### [facility] [address] [address] [address] Alexsander Dickinson Comment Comment Normal [facility] Comment on above: Result Comment: Niurka Patricia, Ph.D., [facility] Director . References: Available Upon Request. . Multiples Of Median Cutoffs For AFP Elevations Fonseca 2.5 Black 2.8 IDD 2.0 Twins 4.5 Abbreviation Definitions IDD - Insulin Dep Diabetes OSBR - Open Spina Bifida Risk . For further inquiries contact [facility] at [phone]. . This test was developed and its performance characteristics determined by [facility]. It has not been cleared or approved by the Food and Drug Administration. Performed By: #### A FPMAT #### [facility] [address] [place] [address] Dr. Alexsander Tiwari Age Collection Date 19.[address] [facility] Comment on above: Performed By: #### A FPMAT #### [facility] [id number] Alexsander Dickinson Gestat, Age Based on NLIE Normal [facility] Comment on above: Result Comment: 02/2023 Recalculations are not recommended when gestational dating by LMP and ultrasound are within 10 days. Performed By: #### A FPMAT #### [facility] [address] [place] [address] Dr. Alexsander Dickinson Insulin Dep Diabetes No Normal [facility] Comment on above: Performed By: #### A FPMAT #### [facility] [address] [place] [address] Dr. Alexsander Dicknison Interpretation Comment Normal [facility] Comment on above: Result Comment: [...] Customer Services to discuss available options. The [employer] recommends amniocentesis be offered to women age 35 and older. Performed By: #### A FPMAT #### [facility] [address] [place] [address] Dr. Alexsander Dickinson [age] Normal [facility] Comment on above: Performed By: #### A FPMAT #### [facility] [address] [place] [address] Dr. Alexsander Dickinson Multiple Gestation No Normal [facility] Comment on above: Performed By: #### A FPMAT #### [facility] [address] [place] [address] Dr. Alexsander Dickinson OSBR Risk 1 IN 2809 Normal [facility] Comment on above: Performed By: #### A FPMAT #### [facility] [address] [place] [address] Dr. Alexsander Dickinson PDF . Normal [facility] Comment on above: Performed By: #### A FPMAT #### [facility] [address] [place] [address] Dr. Alexsander Dickinson Race Normal [facility] Comment on above: Performed By: #### A FPMAT #### [facility] [address] [place] [address] Dr. Alexsander Dickinson Test Results: Negative Normal [facility] Comment on above: Performed By: #### A FPMAT #### [facility] [address] [place] [address] Dr. Alexsander Dickinson GTT 3 HR PREGon 09-29-2022 Glucose [Mass/Vol] 99 mg/dL Normal 74-106 [facility] Comment on above: Performed By: #### A FPMAT #### [facility] [address] [address] [address] Alexsander Dickinson Glucose [Mass/Vol] 173 mg/dL Normal [facility] Comment on above: Performed By: #### A FPMAT #### [facility] [address] [address] [address] Alexsander Dickinson Glucose [Mass/Vol] 151 mg/dL Normal [facility] Comment on above: Performed By: #### A FPMAT #### [facility] [address] [address] [address] Alexsander Dickinson Glucose [Mass/Vol] 76 mg/dL Normal [facility] Comment on above: Performed By: #### A FPMAT #### [facility] [address] [place] [address] Dr. Alexsander Dickinson GLUCOSE - 1HRon 09-20-2022 Glucose [Mass/Vol] 159 mg/dL Critically high 74-106 [facility] Comment on above: Performed By: #### H BSANS #### [facility] [address] [place] [address] Dr. Alexsander Dickinson HEP B SURFACE ANTIGEN SCREEN on 08-17-2022 HBsAg Screen Negative Normal Negative [facility] Comment on above: Performed By: #### H BSANS #### [facility] [address] [place] [address] Dr. Alexsander Dickinson HEPATITIS C VIRUS AB W/ REFL EX QUANTon 08-17-2022 HCV AB <0.1 Normal 0.0-0.[address] [facility] Comment on above: Performed By: #### A 1C #### [facility] [address] [place] [address] Dr. Alexsander Dickinson Interpretation: Comment Normal [facility] Comment on above: Result Comment: Nega tive Not infected with HCV, unless recent infection is suspected or other evidence exists to indicate HCV infection. Performed By: #### A 1C #### [facility] [address] [place] [address] Dr. Alexsander Dickinson HIV 1 AND 2 WITH REFLEXon HIV Screen 4th Generation wRfx Non-Reactive Normal Non Reactive [facility] Comment on above: Result Comment: HIV Negative HIV-1/HIV-2 antibodies and HIV-1 p24 antigen were NOT detected. There is no laboratory evidence of HIV infection. Performed By: #### H IV12 #### [facility] [address] [address] [address] Alexsander Dickinson RPR QUANTon 08-17-2022 Rapid Plasma Reagin, Quant Non-Reactive Normal NonRea<1:1 [facility] Comment on above: Result Comment: Plea se Note: This test does not meet current guidelines for screening and diagnosis of syphilis. This test is intended for following treatment response in patients being treated for syphilis infection. To screen for syphilis infection, a reflex cascade that includes both RPR and a treponema-specific assay should be utilized, such as Treponema pallidum (Syphilis) Screening [place] (253704) or Rapid Plasma Reagin (RPR) Test With Reflex to Quantitative RPR and Confirmatory Treponema pallidum Antibodies (897455). Performed By: #### H BSANS #### [facility] [address] [place] [address] Dr. Alexsander Dickinson RUBELLA AB IGGon 08-17-2022 Rubella Antibodies, IgG 11.90 index Normal Immune >0.99 [facility] Comment on above: Result Comment: Non- immune <0.90 Equivocal 0.90 - 0.99 Immune >0.99 Performed By: #### H BSANS #### [facility] [address] [address] [address] Alexsander Dickinson CBC AUTO DIFFon 08-16-2022 BASO # 0.1 103/ul Normal 0.0-0.[address] [facility] Comment on above: Performed By: #### H BSANS #### [facility] [address] [place] [address] Dr. Alexsander Dickinson Basophils/100 WBC (Bld) 0.6 % Normal 0.2-2.[address] [facility] Comment on above: Performed By: #### H BSANS #### [facility] [address] [address] [address] Alexsander Dickinson EO # 0.1 103/ul Normal 0.0-0.[address] [facility] Comment on above: Performed By: #### H BSANS #### [facility] [address] [place] [address] Dr. Alexsander Dickinson Eosinophils/100 WBC (Bld) 0.9 % Normal 0.9-7.[address] [facility] Comment on above: Performed By: #### H BSANS #### [facility] [address] [place] [address] Dr. Alexsander Dickinson Erythrocyte distribution width (RBC) [Ratio] 12.9 % Normal 11.0-15.0 [facility] Comment on above: Performed By: #### H BSANS #### [facility] [address] [place] [address] Dr. Alexsander Dickinson Hematocrit (Bld) [Volume fraction] 39.0 % Normal 36.0-48.[address] [facility] Comment on above: Performed By: #### H BSANS #### [facility] [address] [place] [address] Dr. Alexsander Dickinson Hemoglobin (Bld) [Mass/Vol] 12.9 g/dL Normal 12.0-16.[address] [facility] Comment on above: Performed By: #### H BSANS #### [facility] [address] [place] [address] Dr. Alexsander Dickinson IG # 0.04 10e3/ul Critically high 0.00-0.03 [facility] Comment on above: Performed By: #### H BSANS #### [facility] [address] [place] [address] Dr. Alexsander Dickinson IG % 0.4 % Normal 0.0-0.5 [facility] Comment on above: Performed By: #### H BSANS #### [facility] [address] [place] [address] Dr. Alexsander Dickinson LYMPH # 2.4 103/ul Normal 1.2-3.8 [facility] Comment on above: Performed By: #### H BSANS #### [facility] [address] [place] [address] Dr. Alexsander Dickinson Lymphocytes/100 WBC (Bld) 26.3 % Normal 20.5-60.0 [facility] Comment on above: Performed By: #### H BSANS #### [facility] [address] [place] [address] Dr. Alexsander Dickinson MANUAL DIFF REQ NO Normal [facility] Comment on above: Performed By: #### H BSANS #### [facility] [address] [place] [address] Dr. Alexsander Dickinson MCH (RBC) [Entitic mass] 28.4 pg Normal 26.7-34.0 [facility] Comment on above: Performed By: #### H BSANS #### [facility] [address] [place] [address] Dr. Alexsander Dickinson MCHC (RBC) [Mass/Vol] 33.1 g/dL Normal 29.9-35.2 [facility] Comment on above: Performed By: #### H BSANS #### [facility] [address] [place] [address] Dr. Alexsander Dickinson MCV (RBC) [Entitic vol] 85.7 fL Normal 81.0-99.0 [facility] Comment on above: Performed By: #### H BSANS #### [facility] [address] [place] [address] Dr. Alexsander Dickinson MONO # 0.6 103/ul Normal 0.3-0.8 [facility] Comment on above: Performed By: #### H BSANS #### [facility] [address] [place] [address] Dr. Alexsander Dickinson Monocytes/100 WBC (Bld) 6.8 % Normal 1.7-12.0 [facility] Comment on above: Performed By: #### H BSANS #### [facility] [address] [place] [address] Dr. Alexsander Dickinson NEUT # 5.8 103/ul Normal 1.4-6.5 [facility] Comment on above: Performed By: #### H BSANS #### [facility] [address] [address] [address] Alexsander Dickinson Neutrophils/100 WBC (Bld) 65.0 % Normal 43.0-75.[address] [facility] Comment on above: Performed By: #### H RACHELNS #### [facility] [address] [place] [address] Dr. Alexsander Dickinson Platelet mean volume (Bld) [Entitic vol] 9.9 fL Normal 9.5-13.[address] [facility] Comment on above: Performed By: #### H BSANS #### [facility] [address] [place] [address] Dr. Alexsander Dickinson PLT 275 103/ul Normal 150-[address] [facility] Comment on above: Performed By: #### H BSANS #### [facility] [address] [place] [address] Dr. Alexsander Dickinson RBC 4.55 106/ul Normal 4.20-5.[address] [facility] Comment on above: Performed By: #### H BRITTANIE #### [facility] [address] [place] [address] Dr. Alexsander Dickinson WBC 8.9 103/ul Normal 4.0-11.[address] [facility] Comment on above: Performed By: #### H BSAMARC #### [facility] [address] [place] [address] Dr. Alexsander Dickinson CULTURE URINEon 08-16-2022 CULTURE URINE Culture Observations: MODERATE GROWTH OF MIXED GENITAL JOHN. NO POTENTIAL PATHOGENS SEEN. Normal [facility] Comment on above: Performed By: #### A FPMAT #### [facility] [address] [place] [address] Dr. Alexsander Dickinson GLYCOHEMOGLOBIN A1Con 2021 ADA RECOMMENDATION SEE BELOW Normal [facility] Comment on above: Result Comment: ADA RECOMMENDED LIMIT 4.0 - 6.0 ADA THERAPEUTIC TARGET < 7.0 ACTION SUGGESTED > 7.0 Performed By: #### A 1C #### [facility] [address] [place] [address] Dr. Alexsander Dickinson Glucose [Mass/Vol] 111 mg/dL Normal [facility] Comment on above: Performed By: #### A 1C #### [facility] [address] [address] [address] Alexsander Dickinson HbA1c (Bld) [Mass fraction] 5.5 % Normal 4.5-6.2 [facility] Comment on above: Performed By: #### A 1C #### [facility] [address] [address] [address] Alexsander Dickinson LATRELL BOX TEST PT SEND OUTo n 08-16-2022 SENT TO REF LAB 08/16/2022 Normal [facility] Comment on above: Performed By: #### N BOX #### [facility] [address] [address] [address] Alexsander Dickinson TYPE AND SCREENon 08-16-2022 TYPE AND SCREEN Negative Normal [facility] Comment on above: Performed By: #### A FPMAT #### [facility] [address] [place] [address] Dr. Alexsander Dickinson US PREG TVon 07-21-2022 [...] DEE GALLEGOS Date: 2022-07-20 22:25 Normal [facility] US PREG TVon 07-13-2022 US PREG TV EXAMINATION: US PREG TV HISTORY: Missed period COMPARISON: 03/09/2022 FINDINGS: Fonseca intrauterine gestation Gestational sac: 1.7 cm, 6 weeks 2 days Yolk sac: 1.7 mm Cooter-rump length: 5.8 mm, 6 weeks 3 days Heart rate: 125 bpm Uterus is normal in appearance, anteverted, retroflexed The ovaries are normal in appearance. Cervix: Closed, 3.9 cm small amount of fluid in the endocervical canal IMPRESSION: Viable fonseca intrauterine gestation measuring 6 weeks 3 days Electronically authenticated by: SEBASTIAN HENRY Date: 2022-07-13 17:05 Normal [facility] Coding Summaryon 03-17-2022 Coding Summary HTMLBase 64 ExgrcyhkSXc9bWa+PGhl YWQ+CQ9UNHVwS28zfVHg vK9ET5rIQX7DIPZCDGSJ VO2WQZ4ffAB7LCtfM4Nm biAv JcdccKNpYU94VRk9ZQN8 jTmeLQyajQ3xzKOiS2h3 RuHeDB70hK04JEqcMCWp NrG4IiOisahhcWIj Q2vuHyJfcJYwRyp+PHRh YmxlIHdpZHRoPScxMDAl BzXlpKuvZK1jTt0fBWWt LWNvbGxhcHNlOiBj w3juKEOhBZztCY5mdUok H5TflWI0PWHmd1t4Xj08 dHI+NCMyTSZ4fNlcPYwr j870GuAhh4asKAJ9 dKNvAYtcXMH6W76cw4Z2 UDIoOZQsNOF1tBG2eL7x vXjgjuxoJ4RqdNXfBpC6 SRP9eLZtbN7krVhh zdipzE6pJaw+C60RHH7E YUCFID6YJnz9C4GzBvvi dHI+TI14XFAgOF80kXCd uBGvj9kmgEw8LyUj OYEsIXL4nAdoWKpnp8Eu RSWfM73mlTZou1N2UNTr iZpwqOBePqIgzRG9hB4v WHjrpbfjn6lpmscp Ykdho2cseu72wM23M80z KMyhSTRrDDG6KJPjJIPx mFpmuh1tcH6sPl3+IDxj e9pmz7aqeLd6WsNl IXMjoxGryKlxBPD1f6Xh Vi58X6EwzVbqn6UkZhi6 qg74eXUwn0G2yVK0XTsb OOQeyY7tCIaiGdI3 PJQbVeFrmG73eTXuJYeh Ws4gmHcyeXbrKO1tWSPn qnxrQVEyxR2gIXSllHVs bNksQF1fNMKzzttz v104ZyGtRRI1ZMBlxKQl I7ZztQ7xMrInXYFxNVZg K4CaxQPpPWijB021JSqo WhT3EWFcenHzY0Jq KNBcrYrmDeS4s0J8Fd4A o1YhexkpWIZ4DVmvONX6 RnBaCuCmGeH0Y6CdRrd0 FRAynEruYE0lT0Ck FEXxlhkhnjmsxYI4BFOx TTRqjI57ePEwJZdwSl2v p6L4c739QOGeKWClnV41 Ar6jlAbiNGCykGIO tH9wpytop3npacewKuQr SKNpOBb0AAu8HVSszUje GsHsQVY8TbS3HZS1pZHk kT7iyYggvkqdxE7k Oyc+L15seV2kOZW3TWC1 uxphYACwvoPkUN79VV56 F3LuDrpqeQKvbSS+PGRp xpUdkRwqJC5aUeKo p7mck4PoLZkzP4KdLJLz MWkaChm5YEJyFGX2qHD3 zW9mNAZvBXwyk1V0oGI8 E2YtokKrby9pr8be TVGsNQroD23lrZCgh6E5 RYHhjCZ7QLUgqZncMvMs wA55Eeg+DMZbvMtmq5Uo Ojnyy1sfg7khqDi5 IjMwJSIgdmFsaWduPSJ0 c8AsAe32M50aRNejADXr PDPnTYAkQYNecFslll8r tV8sOj3+PGNvbCB3 qLY0oC7iVDUyYzP8PAvi H345EsJiuYAtAzitr5hg d4sckMq0DlWpVBGnrwMu eYpkWNF0v2RzHp82 N17aAQkeUZIeOUZbHWDw OESjpMgbwh4geG4lHq6+ ZZ3vv9iqjt15tA35vLD+ FLPmVBS5jXqeRFoa IUUerJ5vBMnmSiO8RSJl NmAyoY47iJWoLMkxBo5t zPlskPrzXW6iVADewler f180MpSlc2wmPLLw yDIeVUjcIAW8I70at6H6 XIIqWPRnPLK9tBU9jB6g bGlnbjogbGVmdDsgdmVy zYluXSmhIRllS702 IHRvcDsnPlBhdGllbnQg SuJlIXc2K8NsHnr2LPLb pHayQB1edMMwFBffAy8x yAediWbfGU6cZXTv wzsdw072UnLgg7wsWAYi eZBoFLqyBIJ7V67jh5C8 HMUjBOPyVCJ9zSR0hL0r bGlnbjogbGVmdDsg zrIcjEdmHBeyEOjkQ450 IHRvcDsnPkJpcnRoIERh qXE4QU70AX70fBRxj4O3 lZT9C0UpNLFeyzmw kmbdhPN5AEImKNXlxG47 Iz9ruLnvHo9iQTDkVWO3 ZYSanMLtB2DhqR3fDkEk CITbCTXvD9DxfKEf ZIneY213QWowSyO8BBJy gjPgD6KlWFTegLeuLmO6 y1U2Bh4MS9A6NK12UV02 uCZke7J1bMV8S5Fo GWIisxqfuhrnkQD0ZMKg OJXrqX95Jj1xsAsxHv2r JBIvETA9ODOwdJPdE6Ez nU9uQjUnZBDkHOBg V4NxoKMcFJhnT612RYqh LlP3XZVdlvIxT1XrCTNv sAwtLuR1e4D6Qr1GOPp1 FJ32KQ66yNXfu8G0 zNX4C1RpQTCprzkpjpmc iGP9GQJbXFAngA90Pw8t dJrlHu9sLTYvGHC4CTIe aOZiW1UmdB1fNdSo NREpGPCjP4NepHWxPMwr I754CLzmOgN6OTKfajEa V1JpZKTstHvbFyL8u8W2 Dk3RVAZkBD84VRC3 gZR2IP61FI46F4GuWbyv dGFibGU+PHRhYmxlIHdp ZHRoPScxMDAlJyBzdHls ID3iNz8uQFVuUCGz jIjiaLQvTlXvg5ctYQDl GCagQN5ifRswY8EzpXR6 MJMtc0c2Wb31I23mE7Hz dXA+OPXaxOG4sYM2 dE9kVlChDjC2BMdcI767 AfTxyBFbOjkro5nde8xq mTz2AeQ8VUYbluIakHhm EZP0f7LwAd23T80n IHdpZHRoPSIxNSUiIHZh oGebty0ttU6xNm0+PGNv uDR7vEN8vU3pIiXmXcF7 WZdyR991QjDqkHDo Bmbmg0eok3lwrYn4OiFa IUUxzpIylBqdMWC3x9Vc Oq18C0MfqLpdn7YrNml7 rv52cVGum0W9lXM8 E4FdCANdobvdrQLmgGwd QE9gTZKeupctFFErfW0q BJQrC6s5LcMgOhE1FMuz Y8ItnkF2MXSyoLNo GEbbHGQ7I60hf7R7KKQu LMXwFLO5kQL0eG1rpTin bjogbGVmdDsgdmVydGlj OYttTTeiJ391KLQr sOfgQROhrR0bHITqiXAc sYhpZO1bTNVelmfjMfLY TExJTlMsIEFMWVNTQSBS KVEDYFu8Y7UkMvt0 LGZdhQdsMD2ifHCuSFcr Ao1gyPsbbJwmGE6lXOYx gqlgVZZiaO1iAYRnpOUs eQxoAW6lPFRzvqfp w588TlNeEKF2FWRujCEu J6UehU0uZgJbNQWmTHYv P6XepNOrQFybE670KUap PlN8WXZvwvVyA2Mg BDKigLzyEjM8k5N7Ww5e XL9kFm6kKOu2CE14DC21 vUBmv0A0rGI9R1LzNHNl ilifgknshLI3UPSm KMLcvZ49nGWiALleJy5t x4V8y442GTViSZPdnN24 Rj1qeNmaGDUtmSTQlZ8a yobgx9kreyywShXg XJXoQEd9AFy2NPPjdJru HkDoCYX7QlP8MJQ2aLAw jU9kyQnroiaqsO3mQyx+ CnsjHFPpfnQ4B0Ba Oxz8ZFAunCucTX3cjUGr JIhxOd1yjZojeTdbPC4j RXViporjLHSekD8hARYx qMJgpUbkSF2tKICc nsyqo510EzNnNWG6GZLj xNVcS8CyyZ0fBvTtIFOg RDXcA2HuhYIeFWcaF575 ROgyYyS7BUAmxbHd R3LfFJRpvIuaViY8v5Z1 Uu0OKF4WMRD1W9BfApv7 MPTwxRliRH9iySNbKDjo Zu5tzRoohHuxOR3l EISdshijWZExkO7ySJJx zSDkzOeeFC0vEDVxdtps t607SiXvNLA2FIMenWHu A3XebM7kSpTuFYLv NUZeF1HocUAiBBevQ272 LVznGvA4VAQyikDzS7Ny XJCpjRmrDnF6v5E3Sy3A UDwvdGQ+CN73qs76 Z9JtKgcsVdb8LVZeYHX2 vDP9xA8uERHiJMrbe1N2 fUR4K4PzgkWvfy6tt8hq GDRpEWycN32duUJo l7O6LLAwzOO5BEDpzRmm AkQfcP54Hmh+PGNvbGdy t8QrYypkv1swt7raqVk1 IjMwJSIgdmFsaWdu DEM2q5LhXq09G80mAGeq ZHRoPSIzMCUiIHZhbGln kp1xcD7nQk8+PGNvbCB3 hSJ4rA7aDxIlOvP1 ABtmW331OxKqjYUxDiim j6gjb7cmzWw1HtKrXZFu fbNngLucINO8x2OgDf61 K3IolVmmq7ZdPji3 ug54nTMfe6P3nPM7N4Wv ZFOknyzphGFzeWsgQU2a YWXvkrtyJXPoeE4mFCPe V1m8NfIzKsQ4WRct G8ToehL8WPGkiIFmHRFh sRJSuD0ceqemp2gethct EzWcNXQdKFg7SYx8BKAh zTdeLuWsYVE1LoZ0 DAM7wIXlmO0duNjdljfh bL0jAvh+ULr3s6oniVKe SR1twWC6NJ03RJ26vLIj u5K2uOF1N9LnHYLw lhbtirmhlQG6YGBbIIGp bG16Pr9mzNwmEa4nEJEd OOY0ERGdkOLwT7CtmA3i SjTeXORhDHAwN9Za uHJjKExxV597MRwzXiK4 NDFpxxFhO7ClGCVlaNet WsI5i3B3If6PXD92WC50 ML29xRYno0S0aFM4 P9FhKOJzlrdvwlgiyXC1 CJHkIBEjcZ47Cg7hlWpu Kn2uCJKmHPF4IJCbmXNr D1GdcZ8lHlNfUYYe HPOpA2LxvUOwCLutO849 PIdpOiL3VJUaquAkV7Eo TFZssNkqAqY5r3E4Pu4O Gj17SF56AT23gYRo q9H6qQZ7J9QiZDTbpttw oiijsOG5MZNcKNKkoU91 Qe0diOtdGa6cNCSxDHX2 VKUsaXWqH0PxtB9k JnPvLIVvXMVeX8GucMEu MDqiQ266QUnbIuA3OZBg rsYvG6JeALNzlNqlVtC4 x1H8Do2SOVeqfaq6 B5QoVgfnvIV+PQ74ONPe FZ80kVNlpXHkn5jdwAt1 XkFtCFXlEHX2dKzbGUlu p1AsBOQlD86kuMXy c2U (more content not included)... [facility] Coding Summary HTMLBase 64 HuibasatDRz9cTi+PGhl YWQ+OV4UXFHnT24dzYRn rK1GJ2mNKR5JYHLATLJV HI0FZF2fqNY5VAnuI7Cp biAv ZqxvpXFiAM03MCf4JVL7 zWbmGUxjqI8icWOsK6q7 HmRyAF72eI27ECioRHKl BzY3PqEctloorKRh B1thIvPwpTYrSha+PHRh YmxlIHdpZHRoPScxMDAl LoTgaJsdJY1cMf0aYJOp LWNvbGxhcHNlOiBj z1ssQNTwWUufSH6flTbf E9LwmJH5VBYrj1g7Eu66 dHI+QOBaRVS6pNmqVDks y902WlGhy5nlNKC8 lSMzCSdeWTY2N70sn3W3 CGVgOZXiTTW2mLT1aL2b iEfehnstJ7CegEWdQuU9 NMT1yBRqqP9jwMby tcketK8vMyi+Z99UHX3D UBZEFV6YDaf9U1VvSbcf dHI+IT52SKBdHL31nZXn wYSnf7mgkDl1KbTh PABaDBW0hVkwSCgzt0Tr AFQoV70cbQQmg7A4TUDq cYmpoSUgLtWleMZ1wG3w HBfeumzma0signrk Ypvyd1fcil60tE66S43e ONwbXFCoRNZ4NUKzGKVh vIgrfx6xuQ8yFp6+IDxj v6sxn6lljMk4BaJh ZMXijmVanXpiGMA0l1Wp Lj00U9ZolDwzg1HrKpu8 ub00hPUgj9R4jMQ4LRks FFHztY7vANvmXzK9 ONPtKlWbcN31oXHlLUku Fu3ncXpehHkqPN8rBAMv qvcvYRAccD2sBHQmbSSq iAizNB0gJXFtdchk j537PbViGKF9LOKikMHm H5RyyG7oCgSjQZBuYMQj Y1UloHDhCSbuZ407QCzz RrN9TALlzuLnQ3Nw JLMraIebMyR7r4Y0Hh2B e4ZhohclDGT4XNdhDFA1 ZgSrWhQpDdY9C4XuMra8 AJOnzVfzWC7jC1Qj UKRzpqduhjekxRH2OTNn TYShwT81qVDhSJdcZw6s x5G3x171VGNnJVAgsR60 Hu5hcWxfVZRozYRQ qU0eptjws7jblzhbViBh EIBlNKv5DYv8HDCmcEtm UfPvLDF5XdE9EGB6pVAd fG3scOugsrkmeI1a Oyc+G00rsZ1kNAH2TWZ1 zimzDHMybwJbFG26LJ55 D4WkFqxpmXYvwXL+PGRp oyCbnAluSO2cElDy y8vsw2IzWJfzS8KrCBBh LIvbQoq8UMGrBXL1jXI8 mW3zBXNzNSlly5Q6mBR2 T4EfxuKgwg2rq4un GQGcZKreN81snRRdm4K1 JOYniET2IKYhwJhfJdIi wE16Hmx+DRPvvTccw2No Qagya4zlh9vqqDs2 IjMwJSIgdmFsaWduPSJ0 x1BsHj51B50gSBngTVMt RLDhPAGjSQWdkRetql4q zD9eBb0+PGNvbCB3 jUB7nE3aVUYvVyF1LHyo Y582CuUvlLEsYyhrg1fk z4uuxHr4DxWzLCNqxoTd mEcmYGV1v7SdEr49 O97pXQajKGGjZVDkJJTa AXJxqHekel8vxX3hOs2+ GN0ib6ywmd97lV26kRK+ HPPkXNO8fMvsGOxe SUFulX2pGSoiCqQ9MHVe BfJlwM55lFDxUAgcJe9x xWmpeWwmYO6lPJElwwfq z209CjSnd4uyLXUt eNXeULjtFSU4A73ak6Z9 QXLhNCMmIPH8jAT6tD9f bGlnbjogbGVmdDsgdmVy cWpxHEdsLKewA141 IHRvcDsnPlBhdGllbnQg XeKdNCk0G5QgAvi8XOHw iBplMB7dcMXvKWzoPf9q oQpktQybPF0cWKDh vdfrz505GoRft4ooTLYd tIEnEJqkEBF4F73lu3Q6 FNZsWOHeWVD3iHS7jG5h bGlnbjogbGVmdDsg ycSujYwoARjlIBpyB396 IHRvcDsnPkJpcnRoIERh rKY2XC97QV00xBEid2O7 pQF9X1QuCSIsrfuw rgrgrMU9NPHeGLOqpW89 Hb0ndKpkGr0sOYNmFVG8 UNIrjVFqD4TyqR5dSdFo LTOcOXBoJ8SlkTFj RPiiE513QUfpHtP9QSPo fdMgL6VdEBDaqSniFoE8 k5P4Wg4HW6V4DH06NR79 sFMtg0Y6sCR6B0No TRRezhbfxkphhML4LWZg BWSywV88Nx8dxXhxXu3e OPWlITA4XADobJFoH0Gx xM1dCyVaGPXcPXCb K9MlcCQoAFdyK579IWok XiZ5GQNddqElT5PfVFXo cQrkDiY4f0I6Op0XVXg8 BT60HZ92hOOwq8U1 bQD2C9McBRZgxfjurcjq yNY6NFFvKPJjeO32Gd1v lBpcQs8bVHUhIQR9TETv rOHuZ6PseQ4yNvAw SEGrZXLwE6LrwJYzYHci N056TGoeMcY2HVGcagVj E7DlFAUscNzpZtU1m3E8 Al4WVONoTE06DKE7 cKF3BJ29CI61H5MpYdrr dGFibGU+PHRhYmxlIHdp ZHRoPScxMDAlJyBzdHls FZ9kPv4hBCCrJCLb kSchzBBxRjKzl1pxCCQd UMyhRU7ygQszE3KmyYQ1 PYDkx2g9Fg93Z84nE8In dXA+RPPjtEU3bQH8 nY6uPtRoKdU5YWjxL307 QrCnxFRhXufnj9kmh4ps eNi7VzX7CRGqdvAvmXdt LGT6k5BxSu18C98i IHdpZHRoPSIxNSUiIHZh oSvjun8kaX9vLj5+PGNv wCF7nIE1aB6hPeOnCzD7 AJhvL507GwJsoEYz Qjkks7jee4secXm4CaJv KHUbtmJxhZooWQD5h3Qs Ak14L0WzkEoqd5WkHlz3 xw94lZUic3R3iPN7 G5KdCAHqiwyebGBipGst LF8rBZGgzktnQUFpmI0r JFUtD9i3QsHwKtG9LEli M5WdevO1PEOdcACx CHncSXR7A23pm9L9AIOa GPJgHSG1nGF2cI9ztAbw bjogbGVmdDsgdmVydGlj OGofIGktH295OZOp zLfcFEZevN4gDLOaiHJr xMhyTU1cTEFsginkMmYH TExJTlMsIEFMWVNTQSBS ZLJOBCl5T9QuQdh3 BDEbbAcdLK1qmAVtWKjl Dl9sfZeywOujVA6rFRSb xvtcSLPkbH8tRBIgvCIb hVbkNV6jPNOlbsnx f048DpObNVX0PVPfdEVz D8OlgJ2eVjAoAWOaRZLl G3TpsYAaCMszV398CPdi PuN5DWMqdiLsW4Em AFOafHlaSvH4z0B9Nm3c WM8pUe6lLNr0JB66NW84 sPUax0O9wHK2K3CiNRSh fgowilcjqKP7DGWt TBOoaA92lNLiTXhbCi6p f1U5f574JYUsLOFxuL65 Tg7fjMvyCFHkhSKUgV7x fjihm2cdzynxMrMp NVWlHSg2ULk3YKZfeGet XgJaKAM4WjY2KZD8cUZo bF1ylMhpvrnxfE3oHmf+ XbgaOAOmfxI8S8Bd Zia7TLZovVicHI1sdZCl AEamBj6veWfktHkuMD2j JSWalariLJPphF7mXDNm cQDrsJlyIB6lFNNk jyels090AtBrHVX4NBOg yDZdN0WrqK1mMrHwBCGw ISSmS1KokRQcKJndJ183 CTgjYeA9QVZwizOc J8GpKDMftDvjIpB9p2W9 Db1FVX1QPUA9O9VkGoz5 FHUnlQhqOH8igXGmETih Qv3jpOplnTtpZX0q JZVsesmvNVQkyA3nONBw tPCjpNexYV7fZIReavzo o715PlGlKCI9DCWnyVEd K1GjnM6hAeIeCSHr IYNsE5QyvRGbGHkcO723 GHjoFpT8KGBcohOvC7Nk LCLqyGgoAbV2l5W7Zf6G rHLaI7JvT4w2K1Ge PjwvdHI+DI61ETQfEZ76 rRBwcLCnd1fcsOo2HvMb UAOlJQI8qTrfOWtnb8Ph UXFlU93lnCWlj0K2 IGNvbGxhcHNlOyBlbXB0 nD8yNXtgaoopm1ewoaym Bybgw2atet89nA56N11t IHdpZHRoPSIzMCUi BGAveDgzrv6zmK1hMh7+ AINwgKB9jCG3hH8dIwFb YuF8QGjfB696NjNzxCEl Ithtq3zxv5rsxKu2 IjIwJSIgdmFsaWduPSJ0 f4OtRu29T26xLVkeCHVy AGIwTGXlCRKabXkgxk1g lG4bRd9+BH3ln5dc wd99fL21tET+PHRkIHN0 xCyiZOgtQZTwtK2cFVyt HoL5URKkFaBlqK49kINk ZNlaDm1tfHwuhEmx DQ1zNTSkonnoc189BiAv s4fmRRYxjBYwGIerRDF8 N90jt5J7NEEkPGCcGKM9 aXH0zL7wxVavhjww bGVmdDsgdmVydGljYWwt JNbkC415XYHlcGmdLlRv xXCrU6gfhsLBXU7cCrrs dGQ+IPVpXQU4rAyl CRrjLILiiI9zAJRuF8r3 ZrEeTzL2ETypE1CxeiW9 SSPykGKdSSMkfSKKfK9d csdel6dquypnWlMq RGGjMMz3VSu9JHNsqDlw OpSeSMK8BkO1TBZ0hGXc xV8yqAhllqvnpY4jLic+ RklOOjwvdGQ+PHRk YBG8oWrwZKctDRQknO2y TLXtV1i8QoLyTiT6DIqw Z8GkirJ5EQEkyZVcTQXq oCFIjA9uctudw6zc fywxMaSfULNcBWi5ETk2 SXQeiQhmQpDbMQS6CxF3 WVH6xDScfG6heHyyigrv eG5mRbz+TVJOOjwv dGQ+CZAwBUP3nQpfRUpt ZRXazM2lWKEwZ4c7OhHo ZzR3ONadP9TrhhC5GDSz mGYtEMXyvYITxW8h wjzuj1yfqprwGdXbMQFh WEo7PJs3UWYiaUaeYfOn SPS0JcS7FZL8gKXkqS2s yNjovhlokH1wHpq+ EFN3DWY1VS78AC50E3Py PjwvdGFibGU+PHRhYmxl IHdpZHRoPScxMDAlJyBz rZymQL0rYn0aKCYk LWN (more content not included)... Normal [facility] C Urineon 03-11-2022 C Urine Urine Culture ordered as a result of parameters set on specific urine dip and urine microsopic results. >3 Organisms Consistent with Contamination Recollection suggested. Normal [facility] Comment on above: Performed By: #### 1 1959909, 99963328, 2400322, 4240425635, 23674204, 9121398, 7087680336, 2142729925, 8900828713, 7681565 #### [facility] (DEFAULT) [address] [place] [address] 39097 .Auto Diff 03-09-2022 Auto [place] % 8 % Normal 11-09 [facility] Comment on above: Performed By: #### 1 2379782, 86800315, 7714976, 5379729264, 05809421, 9063518, 7973010507, 9839307790, 3831107504, 0165126 #### [facility] (DEFAULT) [address] [place] [address] Baso Abs# 0.0 x10 Normal 0.0-0.2 [facility] Comment on above: Performed By: #### 1 7431537, 55843404, 0718011, 9013759643, 97928510, 1785312, 0539033457, 4616082405, 6230476293, 8493548 #### [facility] (DEFAULT) [address] [place] [address] 06609 Basophils/100 WBC (Bld) 0.3 % Normal 0.2-2.0 [facility] Comment on above: Performed By: #### 1 1780699, 24897857, 5972719, 7633954298, 09460171, 4614590, 4893888964, 4976654440, 2592478700, 8726667 #### [facility] (DEFAULT) [address] [place] [address] 91740 Eos Abs# 0.1 x10 Normal 0.0-0.4 [facility] Comment on above: Performed By: #### 1 2518608, 33237389, 0147917, 1972532000, 68031545, 0307732, 0621084554, 9985804349, 3299072522, 7694095 #### [facility] (DEFAULT) [address] [place] [address] 49794 Eosinophils/100 WBC (Bld) 1.0 % Normal 0.9-4.0 [facility] Comment on above: Performed By: #### 1 6590852, 20761171, 3958385, 8507290169, 17331088, 6744680, 2345716716, 5149449773, 7843756904, 9064826 #### [facility] (DEFAULT) [address] [place] [address] 02455 Lymph Abs# 2.0 x10 Normal 1.3-2.9 [facility] Comment on above: Performed By: #### 1 7598328, 00656176, 4333800, 1931149320, 09282725, 4786841, 9758757236, 8792765186, 6156056654, 2239187 #### [facility] (DEFAULT) [address] [place] [address] 44432 Lymphocytes/100 WBC (Bld) 35 % Normal 14-48 [facility] Comment on above: Performed By: #### 1 4118751, 96143607, 7333119, 4854528160, 96179862, 0945674, 2674263969, 2046099129, 7724426268, 6687928 #### [facility] (DEFAULT) [address] [place], [place] [address] [place] Abs# 0.5 x10 Normal 0.0-0.8 [facility] Comment on above: Performed By: #### 1 9828922, 14701428, 5169447, 6133710979, 96787684, 4163389, 5903239585, 3064764278, 2216721002, 1648521 #### [facility] (DEFAULT) [address] [place] [address] Neut Abs# 3.2 x10 Normal 1.5-9.2 [facility] Comment on above: Performed By: #### 1 5949465, 09863641, 7083374, 2323490396, 04452546, 3028764, 9069291080, 2684801601, 1266124524, 7872812 #### [facility] (DEFAULT) [address] [place] [address] Neutrophils/100 WBC (Bld) 55 % Normal 44-88 [facility] Comment on above: Performed By: #### 1 3119075, 44963181, 4104983, 7942811011, 70206347, 7283919, 3597319599, 8932382063, 8234151997, 8669311 #### [facility] (DEFAULT) [address] [place] [address] ABORhon 03-09-2022 ABO and Rh group Nom (Bld) Hx Check: Not Found Anti-A: 4+ Anti-B: 0 Anti-D: 4+ DCon: 0 A1: mf+ B: 4+ ABORh Interp: A POS Invalid Interpretation Code [facility] Comment on above: Performed By: #### 1 7491015, 09888433, 3511340, 1085346150, 18862508, 5998881, 0255923793, 6882339688, 0778802141, 1970673 #### [facility] (DEFAULT) [address] [place] [address] 06978 ABORh Retypeon 03-09-2022 ABO and Rh group Nom (Bld) Ordered by Discern. Anti-A: 4+ Anti-B: 0 Anti-D: 4+ DCon: 0 A1: mf+ B: 4+ ABORh Retype: A POS Invalid Interpretation Code [facility] Comment on above: Performed By: #### 1 0833817, 37543475, 4568236, 8969672282, 29396185, 8378633, 0052389263, 1875901956, 6920708087, 8004135 ####[facility] (DEFAULT)[address] [place] [address] CBC w/ Auto Diffon Erythrocyte distribution width (RBC) [Ratio] 13.3 % Normal 11.5-15.0 [facility] Comment on above: Performed By: #### 1 0183319, 44149926, 1651408, 0233639235, 06000854, 9539723, 0946494097, 2710520476, 4069942586, 7895254 #### [facility] (DEFAULT) [address] [place] [address] Hematocrit (Bld) [Volume fraction] 43.5 % High 33.7-40.4 [facility] Comment on above: Performed By: #### 1 4537297, 27268096, 6401075, 6023770575, 20511466, 0545253, 6512415541, 4586808334, 2559150325, 6705802 #### [facility] (DEFAULT) [address] [place] [address] 55522 Hemoglobin (Bld) [Mass/Vol] 14.1 g/dL Normal 11.3-15.9 [facility] Comment on above: Performed By: #### 1 4555409, 25516109, 5145024, 4539266576, 60104473, 5581897, 6095303124, 2665885899, 8317024656, 0634280 #### [facility] (DEFAULT) [address] [place] [address] 98137 Instr WBC 5.7 x10 Invalid Interpretation Code [facility] Comment on above: Performed By: #### 1 0942935, 85887551, 7726493, 1705315030, 11461191, 9221278, 7144945231, 1775843932, 1604713669, 8513771 #### [facility] (DEFAULT) [address] [place] [address] 40988 Man Diff? Auto Normal [facility] Comment on above: Performed By: #### 1 2943811, 44376588, 9192948, 9452804753, 61233526, 3983994, 7961542640, 6238434369, 2333532755, 4354058 #### [facility] (DEFAULT) [address] [place] [address] 53375 MCH (RBC) [Entitic mass] 28 pg Normal 24-34 [facility] Comment on above: Performed By: #### 1 5155559, 27920916, 0641558, 4306560957, 90539222, 8384917, 7185973264, 1485001355, 9233373806, 0768135 #### [facility] (DEFAULT) [address] [place] [address] 72308 MCHC (RBC) [Mass/Vol] 32 g/dL Normal 26-37 [facility] Comment on above: Performed By: #### 1 2637734, 63427041, 6160337, 3833893021, 72801297, 0352825, 5079703671, 3909855609, 2540840272, 8654761 #### [facility] (DEFAULT) [address] [place] [address] 04902 MCV (RBC) [Entitic vol] 86 fL Normal 81-100 [facility] Comment on above: Performed By: #### 1 9904137, 78165177, 0765813, 9185222420, 07915222, 0330917, 0495470494, 3780905664, 2632558987, 9437375 #### [facility] (DEFAULT) [address] [place] [address] 71037 Platelet 324 x10 Normal 138-427 [facility] Comment on above: Performed By: #### 1 0873619, 49357411, 1110851, 0198334806, 01366151, 3052757, 2541752395, 2504729658, 4529081367, 0924726 #### [facility] (DEFAULT) [address] [place] [address] 10105 Platelet mean volume (Bld) [Entitic vol] 9.8 fL Normal 6.3-10.2 [facility] Comment on above: Performed By: #### 1 0385533, 42681484, 0676332, 5344469403, 16133228, 2917136, 0830469710, 3599472273, 4340586347, 4154604 #### [facility] (DEFAULT) [address] [place] [address] 86530 RBC 5.07 x10 Normal 3.70-5.30 [facility] Comment on above: Performed By: #### 1 6158567, 60117494, 7610418, 1477207969, 87912868, 0051766, 9140230551, 7111095272, 8321009039, 6334560 #### [facility] (DEFAULT) [address] [place] [address] 86693 WBC 5.7 x10 Normal 3.5-10.5 [facility] Comment on above: Performed By: #### 1 6829091, 68137834, 8457905, 6051980956, 51635751, 9361859, 6040958276, 7639079739, 1941115114, 7350932 #### [facility] (DEFAULT) [address] [place] [address] 91648 CMP Standardon 03-09-2022 eGFR Non AA >60 Invalid Interpretation Code [facility] Comment on above: Performed By: #### 1 9688190, 06730555, 7314534, 6144435666, 36820257, 6846328, 6980286880, 0246868440, 8706859416, 4949240 #### [facility] (DEFAULT) [address] [place] [address] 96112 eGFR AA >60 Invalid Interpretation Code [facility] Comment on above: Result Comment: Chiropractor Assistant susie Kidney disease could be indicated at eGFRs of less than 60 ml/min/1.73m2. Kidney Failure is indicated at less than 15 ml/min/1.73m2 Performed By: #### 1 5040098, 43476301, 7090235, 5957032050, 69223546, 8844540, 4403228415, 8003186971, 4634304486, 9218232 #### [facility] (DEFAULT) [address] [place] [address] 37092 Albumin [Mass/Vol] 4.5 g/dL Normal 3.5-5.0 [facility] Comment on above: Performed By: #### 1 7358592, 89899447, 2732351, 5131530071, 13517748, 2674280, 8326037471, 8324657595, 8165328549, 3444498 #### [facility] (DEFAULT) [address] [place] [address] 38042 Albumin/Globulin [Mass ratio] 1.2 {ratio} Low 1.4-2.6 [facility] Comment on above: Performed By: #### 1 0979356, 44841824, 7780469, 0883421557, 23655838, 2529789, 7750778997, 1478825366, 0836262785, 6164403 #### [facility] (DEFAULT) [address] [place] [address] 02495 Alk Phos 52 IU/L Normal 32-91 [facility] Comment on above: Performed By: #### 1 1062987, 75480825, 8288046, 2779187775, 92462823, 1495440, 5864007856, 1411345980, 6341780291, 0644931 #### [facility] (DEFAULT) [address] [place] [address] 51366 ALT [Catalytic activity/Vol] 37.0 U/L Normal 14.0-54.0 [facility] Comment on above: Performed By: #### 1 3284533, 14841088, 9556775, 4833740951, 05989368, 1651974, 8324890556, 2070871893, 8749088266, 4772190 #### [facility] (DEFAULT) [address] [place] [address] 29516 Anion gap [Moles/Vol] 18.0 mmol/L Normal 5.0-19.0 [facility] Comment on above: Performed By: #### 1 2468904, 97180502, 8575855, 3219560506, 47895059, 6175496, 8239631905, 9496824270, 7849924178, 7205162 #### [facility] (DEFAULT) [address] [place] [address] 20426 AST [Catalytic activity/Vol] 29 U/L Normal 15-41 [facility] Comment on above: Performed By: #### 1 7353923, 63753375, 5548675, 4444190790, 73987766, 8190500, 7970825727, 2500285363, 0592628189, 1464537 #### [facility] (DEFAULT) [address] [place] [address] 29346 Bili Total 0.7 mg/dL Normal 0.3-1.2 [facility] Comment on above: Performed By: #### 1 2104729, 82626595, 0325415, 7877075996, 94896754, 5248433, 0271593790, 4887310067, 9574157770, 1209342 #### [facility] (DEFAULT) [address] [place] [address] 85208 Calcium [Mass/Vol] 9.4 mg/dL Normal 8.9-10.3 [facility] Comment on above: Performed By: #### 1 4305191, 39839513, 1449609, 3378550688, 68344896, 0168680, 6088964297, 3331344684, 0573190663, 7807062 #### [facility] (DEFAULT) [address] [place] [address] 75515 Chloride [Moles/Vol] 100 mmol/L Low 101-111 [facility] Comment on above: Performed By: #### 1 8124739, 11210012, 1528215, 7925012114, 77924677, 6170537, 8818325311, 9853902657, 0039055937, 3465255 #### [facility] (DEFAULT) [address] [place] [address] 71600 CO2 [Moles/Vol] 24 mmol/L Normal 21-32 [facility] Comment on above: Performed By: #### 1 6063579, 38832443, 3081015, 2443758551, 99583122, 1626447, 2275828769, 0398648199, 3979690481, 4993554 #### [facility] (DEFAULT) [address] [place] [address] 76368 Creatinine [Mass/Vol] 0.75 mg/dL Normal 0.60-1.30 [facility] Comment on above: Performed By: #### 1 8354189, 21210208, 7875897, 3122203907, 91925512, 1271434, 9108755057, 3491621480, 5123137636, 0042992 #### [facility] (DEFAULT) [address] [place] [address] 84715 Globulin (S) [Mass/Vol] 3.9 g/dL Normal 1.5-4.3 [facility] Comment on above: Performed By: #### 1 3407468, 02388603, 2892791, 9600130162, 39304069, 0513506, 0134341604, 8195915390, 7281105525, 9324090 #### [facility] (DEFAULT) [address] [place] [address] 35524 Glucose [Mass/Vol] 98.0 mg/dL Normal 74.0-118.0 [facility] Comment on above: Performed By: #### 1 0494441, 52518452, 8582014, 8229296540, 40564300, 6609393, 0407336367, 3813118204, 9666587417, 1007621 #### [facility] (DEFAULT) [address] [place] [address] 87337 Osmolality 274 mOsm/L Invalid Interpretation Code [facility] Comment on above: Performed By: #### 1 4659335, 28517587, 8724404, 2572377473, 45646134, 2260861, 7157902315, 0866161469, 7993999308, 3215940 #### [facility] (DEFAULT) [address] [place] [address] 28435 Potassium [Moles/Vol] 3.5 mmol/L Low 3.6-5.1 [facility] Comment on above: Performed By: #### 1 9751052, 60630034, 1569840, 0066267651, 56443313, 4930455, 1130477700, 1242118331, 9699064566, 4184769 #### [facility] (DEFAULT) [address] [place] [address] 58033 Protein [Mass/Vol] 8.4 g/dL High 6.5-8.1 [facility] Comment on above: Performed By: #### 1 8068331, 37543510, 8866018, 0583463540, 31033681, 5196814, 6626053515, 5078463846, 1174370007, 0012186 #### [facility] (DEFAULT) [address] [place] [address] 25240 Sodium [Moles/Vol] 138.0 mmol/L Normal 136.0-144.0 [facility] Comment on above: Performed By: #### 1 6931688, 99785609, 3103899, 6894120059, 98350379, 3645467, 3232634853, 0781341627, 2349955378, 4734455 #### [facility] (DEFAULT) [address] [place] [address] 83297 Urea nitrogen [Mass/Vol] 7 mg/dL Low 8-26 [facility] Comment on above: Performed By: #### 1 6521339, 13637610, 9611734, 9349649697, 60362366, 7211277, 5510464706, 0635954918, 6514047324, 1588188 #### [facility] (DEFAULT) [address] [place] [address] 57974 Urea nitrogen/Creatinine [Mass ratio] 9.0 mg/mg Normal 4.6-16.2 [facility] Comment on above: Performed By: #### 1 5228666, 34354677, 0070286, 5418571917, 12727887, 1954778, 4423680856, 4253950869, 0566053956, 6227806 #### [facility] (DEFAULT) [address] [place] [address] 00035 ED Clinical Summaryon 2021 ED Clinical Summary [facility] - Emergency Department [address] [place] [address] 24647 ED Clinical Summary PERSON INFORMATION Name: DIANE JOYCE Age: 26 Years Sex: FEMALE : 1995 MRN: Acct#: Visit Reason: Vaginal bleeding - < 20 wks ; BLEEDING, Arrival: 03/09/2022 15:56:59 Discharge: 03/09/2022 18:28:00 LOS: 000 02:32 Check In: 03/09/2022 15:56:59 Checkout:03/09/2022 18:28:00 Address: [address] [place] [address] PCP: Provider, None PROVIDER INFORMATION Provider Role [...] miscarriage in early ; First trimester Author: ISLVERIO HANDLEY Basic Information Time seen: Date & [...] or bladder. States that she follows with layout artist in [place] [address] [place], contacted his office and they [...] intact, SARINA: -Sclera conjunctiva: Unremarkable. NECK: -Supple (nzfe-rr-ufprj): non-tender. CARD: -Rate and rhythm: Regular -Edema: [...] the patient recommended close follow-up with her layout artist and outpatient beta hCG. In the meantime no strenuous ac (more content not included)... Normal [facility] ED Note - Physicianon 2021 ED [...] or bladder. States that she follows with layout artist in [address] [place], contacted his office and they [...] intact, SARINA: -Sclera conjunctiva: Unremarkable. NECK: -Supple (xteb-gi-lnamo): non-tender. CARD: -Rate and rhythm: Regular -Edema: [...] the patient recommended close follow-up with her layout artist and outpatient beta hCG. In the meantime no strenuous activity, sexual activity if having any worsening issues I recommended he return to the emergency department or going directly to layout artist. Patient indicated she understood was in agreement. [...] AA >60 (more content not included)... Normal [facility] ED Note-Nursingon 03-09-2022 Beta HCG ( test) Ql (U) Patient arrives with c/o vaginal bleeding during . States she took a at home test a week ago and estimates being 5 to 6 weeks along. Patient has some mild cramping yesterday 11/07 at has since went away and light vaginal bleeding today. This is the patients second , 1 live . Normal [facility] ED Patient Summaryon 022 ED Patient Summary [facility] - Emergency Department [address] [place], [place] [id number] PATIENT DISCHARGE INSTRUCTIONS Patient Information Name: DIANE JOYCE Age: 26 Years Date of : 1995 [facility]: [id number] Reason For Visit: Vaginal bleeding - < 20 wks ; BLEEDING, Arrival Time: 03/09/2022 15:56:59 Primary Care Physician: Provider, None Attending Physician: Adrian Rosales MD Comment: Visit Diagnosis: Diagnoses This Visit Elevated blood pressure reading (R03.0) First trimester (Z34.91) Threatened miscarriage in early (O20.0) Vaginal bleeding (N93.9) Vaginal bleeding - < 20 wks ([id number]) Prescription Information: If you have been given a prescription for narcotics, seek immediate medical attention if you have any difficulty breathing or any sudden status changes such as confusion and sleepiness. If you or anyone you know is experiencing suicidal thoughts, mental health, alcohol and/or drug addiction problems; contact the [facility] 21/05 Crisis Hotline -text 4hope to 741741. [...] documents With: Address: When: Follow-up with your layout artist for reevaluation next few days. Within 1 to 2 days Comments: Follow-up with layout artist for reevaluation next few days for reevaluation and outpatient quantitative hCG. Return immediately for any worsening issues such as increasing abdominal pains, increasing vaginal bleeding, fevers, or any other problems. With: Address: When: Stephanie Padilla Within 3 to 5 days Comments: Airbrush Artist Technical Medication Information: The exam and treatment you received today in the [facility] were for an urgent problem [...] so we can reach you if necessary. [facility] Emergency Department has provided you with a complete list of medications post discharge. Please inform your metal slitter/provider of your visit and for further instruction [...] The sec (more content not included)... Normal [facility] Extra Greenon 03-09-2022 Tube Collected Yes Invalid Interpretation Code [facility] Comment on above: Performed By: #### 1 8463333, 07575802, 6228257, 7335184228, 06580645, 2444754, 3360505470, 9607908537, 9009713330, 1425364 #### [facility] (DEFAULT) [address] [place] [address] PT/PTTon 03-09-2022 INR Coag (PPP) [Relative time] 0.95 {INR} Normal 0.91-1.11 [facility] Comment on above: Performed By: #### 1 0462928, 05647241, 5386781, 5821324305, 38121919, 8611539, 8137367766, 0882580121, 2449989057, 8452545 #### [facility] (DEFAULT) [address] [place] [address] PT 10.3 second(s) Normal 9.7-11.8 [facility] Comment on above: Performed By: #### 1 2770157, 92553142, 3671778, 5013814554, 46509575, 5013895, 0314105053, 7465929862, 9774343706, 0760068 #### [facility] (DEFAULT) [address] [place] [address] PTT 34 second(s) Normal 25-35 [facility] Comment on above: Performed By: #### 1 9473803, 84052120, 3449799, 8409874539, 30071710, 6991942, 1516995348, 9300892022, 3188649655, 3175977 #### [facility] (DEFAULT) [address] [place] [address] RhIG.on 03-09-2022 RhIG. No. Vials RhI RhIG Candidate?: No Date to Give: [id number] RhIG Status: RhIG Ready Normal [facility] Comment on above: Performed By: #### 1 7561909, 71110672, 2958194, 9304799094, 89146862, 8850137, 3581986048, 1111549215, 7748937929, 5955552 ####[facility] (DEFAULT)[address] [place] [address] UA Pkdbt3kk 03-09-2022 UA Amorph. 1+ [facility] Comment on above: Order Comment: Urina lysis Microscopic order added on by Discern Expert Rules system. Performed By: #### 5 9498998, 9694465, [id number] ####[facility] (DEFAULT)[address] [place] [address] UA Bacteria 2+ [facility] Comment on above: Order Comment: Urina lysis Microscopic order added on by Discern Expert Rules system. Performed By: #### 5 3968316, 6872387, [id number] ####[facility] (DEFAULT)[address] [place] [address] UA Mucous 3+ [facility] Comment on above: Order Comment: Urina lysis Microscopic order added on by Discern Expert Rules system. Performed By: #### 5 6622563, 6973967, [id number] ####[facility] (DEFAULT)[address] [place] [address] UA RBC >100 [facility] Comment on above: Order Comment: Urina lysis Microscopic order added on by Discern Expert Rules system. Performed By: #### 5 1937954, 2578070, [id number] ####[facility] (DEFAULT)[address] [place] [address] UA Squam Epi Many [facility] Comment on above: Order Comment: Urina lysis Microscopic order added on by Discern Expert Rules system. Result Comment: DMITRY VERGARA RN IN ER. RUN UNINALYSIS AND CULTURE ON THIS SPECIMEN. NO RECOLLECT. Performed By: #### 5 3762697, 4645229, [id number] ####[facility] (DEFAULT)[address] [place] [address] UA WBC 3-5 [facility] Comment on above: Order Comment: Urina lysis Microscopic order added on by Discern Expert Rules system. Performed By: #### 5 0323171, 1883520, [id number] ####[facility] (DEFAULT)[address] [place] [address] UA w Culture if Ind Standard on 03-09-2022 Breakpoint UA [facility] Comment on above: Performed By: #### 1 0495144, [id number], [id number], [id number], [id number], [id number], [id number], [id number], [id number], [id number] #### [facility] (DEFAULT) [address] [place] [address] 11936 Color (U) Yellow [facility] Comment on above: Performed By: #### 1 [id number], [id number], [id number], [id number], [id number], 6941762, [id number], [id number], [id number], [id number] #### [facility] (DEFAULT) [address] [place] [address] Culture? Indicated Invalid Interpretation Code [facility] Comment on above: Result Comment: Resu lt created by rule GL_MAGR_ADD_UA_CULT Result created by rule GL_MAGR_ADD_UA_CULT Result created by rule GL_MAGR_ADD_UA_CULT1 Result created by rule GL_MAGR_ADD_UA_CULT Performed By: #### 1 [id number], [id number], 3731176, [id number], 02139896, 6306305, [id number], [id number], [id number], [id number] #### [facility] (DEFAULT) [address] [place] [address] 19802 Glucose (U) [Mass/Vol] Negative [facility] Comment on above: Performed By: #### 1 [id number], [id number], 0389575, [id number], 84850854, 8922925, [id number], [id number], [id number], [id number] #### [facility] (DEFAULT) [address] [place] [address]54 Ketones Ql (U) 40 [facility] Comment on above: Performed By: #### 1 [id number], 12047114, 8642254, [id number], 36837151, 2050562, [id number], [id number], [id number], 9461068 #### [facility] (DEFAULT) [address] [place] [address]481 Micro? Indicated Invalid Interpretation Code [facility] Comment on above: Result Comment: Resu lt created by rule GL_MAGR_ADD_UA_MICRO Performed By: #### 1 [id number], [id number], 1107934, [id number], 50463067, 4684446, [id number], [id number], [id number], [id number] #### [facility] (DEFAULT) [address] [place] [address]9464 UA Bilirubin Negative Normal [facility] Comment on above: Performed By: #### 1 [id number], 47602872, 7453472, [id number], 46820197, 1946096, [id number], [id number], [id number], 7390373 #### [facility] (DEFAULT) [address] [place] [address] 76198 UA Blood LARGE Abnormal NEGATIVE [facility] Comment on above: Performed By: #### 1 [id number], 54007124, 9762945, [id number], 91935391, 0549511, [id number], [id number], [id number], 6620485 #### [facility] (DEFAULT) [address] [place] [address] 22533 UA Clarity SL CLOUDY Abnormal CLEAR [facility] Comment on above: Performed By: #### 1 [id number], 00973731, 4553783, [id number], 38287133, 1555836, [id number], 7304141406, [id number], 5673004 #### [facility] (DEFAULT) [address] [place] [address] 88139 UA Leuk Est TRACE Abnormal NEGATIVE [facility] Comment on above: Performed By: #### 1 [id number], 03230698, 9105145, [id number], 72827863, 2538165, 1525639890, 0130830391, [id number], [id number] #### [facility] (DEFAULT) [address] [place] [address] UA Nitrite Negative Normal NEGATIVE [facility] Comment on above: Performed By: #### 1 [id number], 24668047, 6005797, 3823757532, 60614591, 5715582, 0831704324, 8830891950, [id number], 9798688 #### [facility] (DEFAULT) [address] [place] [address] 11096 UA pH 6.5 Normal 5-8 [facility] Comment on above: Performed By: #### 1 5922804, 07974644, 1012530, 4726024794, 62597396, 5402919, 0496363688, 4565357441, 9591744531, 8622477 #### [facility] (DEFAULT) [address] [place] [address] UA Protein Negative Normal NEGATIVE [facility] Comment on above: Performed By: #### 1 [id number], 06443336, 0806714, [id number], 73485771, 2841229, 3500669755, 1029874830, 1440830899, 2771126 #### [facility] (DEFAULT) [address] [place] [address] UA Spec Grav 1.015 Normal 1.001-1.035 [facility] Comment on above: Performed By: #### 1 3546819, 19526422, 4265884, 7250178221, 64927098, 6317443, 2627947524, 9103655893, 9064004402, 3237631 #### [facility] (DEFAULT) [address] [place] [address] UA Urobilinogen 0.2 mg/dL Normal 0.2-1.0 [facility] Comment on above: Performed By: #### 1 [id number], 64354214, 4983816, 8234652858, 81739582, 0166487, 7025069325, 3665584839, 5896496057, 3246808 #### [facility] (DEFAULT) [address] [place] [address] Urine Source Clean Catch [facility] Comment on above: Performed By: #### 1 [id number], 05230759, 5384020, 3761314798, 33407900, 5399732, 2635585520, 0173380417, 3149628531, 0174518 #### [facility] (DEFAULT) [address] [place] [address] US 1st Trimesteron 03-09-2022 US 1st Trimester [...] Sebastian Guzman 03/09/22 6:10 pm Technologist: PM [facility] US Transvaginalon 03-09-2022 US Transvaginal [...] Guzman 03/09/22 6:10 pm Technologist: PM Normal [facility] hCG Quantitativeon hCG Quantitative 7.1 mIU/mL High 0.0-0.6 [facility] Comment on above: Result Comment: Post -Menopausal Reference Range is: 0.1-11.6 mIU/mL Performed By: #### 1 [id number], 20157672, 0527860, 1674538272, 15967041, 0916744, 1167352107, 9370093035, 2363363014, 4325768 #### [facility] (DEFAULT) [address] [place] [address] Vital Signs Date Time Vital Sign Value Performing Clinician Facility 12-13-2023 15:00-0500 Body mass index (BMI) [Ratio] 46.69 kg/m2 [facility] 12-13-2023 15:00-0500 Body weight 123.38 kg [facility] 12-13-2023 15:00-0500 Diastolic blood pressure 78 mm[Hg] [facility] 12-13-2023 15:00-0500 Systolic blood pressure 128 mm[Hg] [facility] 05-15-2023 18:30-0400 Body height 161.29 cm Linsey Witt Other [facility] Other 05-15-2023 18:30-0400 Body mass index (BMI) [Ratio] 43.41 kg/m2 Linsey Eduar Other [facility] Other 05-15-2023 18:30-0400 Body temperature 99.2 [degF] Linsey Witt Other [facility] Other 05-15-2023 18:30-0400 Body weight 112.95 kg Linsey Eduar Other [facility] Other 05-15-2023 18:30-0400 Respiratory rate 18 /min Linsey Witt Other [facility] Other 05-15-2023 18:30-0400 SaO2% (BldA) [Mass fraction] 99 % Linsey Witt Other [facility] Other 05-09-2023 11:00-0400 Body height 161.29 cm Gissel Santana Other [facility] Other 05-09-2023 11:00-0400 Body mass index (BMI) [Ratio] 43.59 kg/m2 Gissel Santana Other [facility] Other 05-09-2023 11:00-0400 Body weight 113.4 kg Gissel Santana Other [facility] Other 05-09-2023 11:00-0400 Diastolic blood pressure 83 mm[Hg] Gissel Santana Other [facility] Other 05-09-2023 11:00-0400 Systolic blood pressure 119 mm[Hg] Gissel Santana Other [facility] Other 04-12-2023 09:00-0400 Body height 161.29 cm Gissel Santana Other [facility] Other 04-12-2023 09:00-0400 Body mass index (BMI) [Ratio] 43.59 kg/m2 Gissel Santana Other [facility] Other 04-12-2023 09:00-0400 Body weight 113.4 kg Gissel Santana Other [facility] Other 04-12-2023 09:00-0400 Diastolic blood pressure 88 mm[Hg] Gissel Santana Other [facility] Other 04-12-2023 09:00-0400 Systolic blood pressure 129 mm[Hg] Gissel Santana Other [facility] Other 10-11-2022 02:06-0500 Body weight 111.[address] ESTELLA MIN . [facility] Comment on above: Performed By: #### AFPMAT #### [facility] [address] [place] [address] Dr. Alexsander Dickinson Encounters Encounter Date Encounter [...] 11-06-2023 End: 11-06-2023 ambulatory Gissel Santana Other [facility] Other Start: 11-06-2023 Encounter by donald Santana [facility] Start: 05-22-2023 End: 05-22-2023 ambulatory Olive Howard Other [facility] Other Start: 05-22-2023 Telephone encounter Olive Howard [facility] Start: 05-15-2023 End: 05-15-2023 ambulatory Linsey Witt Facility:[facility] Start: 05-15-2023 End: 05-15-2023 Departed Referred MANAGER DATA Linsey Witt Work Phone: [facility] [place] Work Phone: Start: 05-15-2023 End: 05-15-2023 ambulatory MANAGER DATA Linsey Witt Work Phone: [facility] Work Phone: Start: 05-15-2023 Office outpatient vi sit 25 minutes Linsey Witt [facility] Start: 05-09-2023 End: 05-09-2023 ambulatory Gissel Santana Other [facility] Other Start: 05-09-2023 Office outpatient vi sit 15 minutes Gissel Santana [facility] Start: 04-12-2023 End: 04-12-2023 ambulatory Gissel Santana Other [facility] Other Start: 04-12-2023 Encounter for genera l adult medical examination without abnormal findings Gissel Santana [facility] Start: 04-12-2023 Periodic preventive med est patient 18-39 yrs Gissel Santana [facility] Start: 02-15-[address] ESTELLA [...] encounter procedure 01/14/2024 8:30 AM EDT Routine [facility] [address] [place] [id number] Estella Min, DO [address] [place] [address] [facility] OB Start: 12-13-2023 End: 12-13-2024 ABO/Rh ABO/Rh Lab Routine Missed menses Expected: 12/13/2023 (Approximate), Expires: 12/13/2024 [facility] Comment on above: Expected: 12/13/2023 (Approximate), Expires: 12/13/2024 Start: 12-13-2023 End: 12-13-2024 Blood type and Indirect antibody screen panel - Blood Type and screen Lab Routine Missed menses Expected: 12/13/2023 (Approximate), Expires: 12/13/2024 [facility] Work Phone: Comment on above: Expected: 12/13/2023 (Approximate), Expires: 12/13/2024 Start: 12-13-2023 End: 12-13-2024 Thyroid panel with tsh Thyroid panel with tsh Lab Routine Missed menses Expected: 12/13/2023 (Approximate), Expires: 12/13/2024 [facility] Comment on above: Expected: 12/13/2023 (Approximate), Expires: 12/13/2024 Start: 12-13-2023 End: 12-13-2024 US Pelvis transvaginal US OB transvaginal Imaging Routine Missed menses Expected: 12/13/2023 (Approximate), Expires: 12/13/2024 [facility] Comment on above: Expected: 12/13/2023 (Approximate), Expires: 12/13/2024 Start: 05-15-2023 Throat culture Throat Culture [facility] Bacteria identified in Urine by Culture Urine culture Microbiology Routine Missed menses Ordered: 12/13/2023 [facility] Comment on above: Ordered: 12/13/2023 CBC W Auto Different ial panel - Blood CBC and differential Lab Routine Missed menses Ordered: 12/13/2023 [facility] Comment on above: Ordered: 12/13/2023 Hemoglobin A1c/Hemoglobin.total in Blood Hemoglobin A1c Lab Routine Missed menses Ordered: 12/13/2023 [facility] Comment on above: Ordered: 12/13/2023 Hepatitis B virus surface Ag [Presence] in Serum or Plasma by Immunoassay Hepatitis B surface antigen Lab Routine Missed menses Ordered: 12/13/2023 [facility] Comment on above: Ordered: 12/13/2023 Hepatitis C virus Ab [Presence] in Serum or Plasma by Immunoassay Hepatitis C antibody Lab Routine Missed menses Ordered: 12/13/2023 [facility] Comment on above: Ordered: 12/13/2023 HIV-1/HIV-2 antigen/antibody combination immunoassay HIV-1 and HIV-2 antibodies Lab Routine Missed menses Ordered: 12/13/2023 [facility] Comment on above: Ordered: 12/13/2023 Reagin Ab [Presence] in Serum by RPR RPR Lab Routine Missed menses Ordered: 12/13/2023 [facility] Comment on above: Ordered: 12/13/2023 Rubella antibody, IgG Rubella an tibody, IgG Lab Routine Missed menses Ordered: 12/13/2023 [facility] Comment on above: Ordered: 12/13/2023 Payers Date Payer Category Payer Unknown BCBS BCBS [id number] [id number] 2020-Present [phone] [address] [place] [address] [id number]. [id number] 1994 Unknown [id number] 2.16.840.1.558236.3.579.2.593 1994 Unknown [id number] 2.16.840.1.826507.3.579.2.593 1994 Unknown [id number] 2.16.840.1.438384.3.579.2.593 1994 Unknown [id number] 2.16.840.1.266941.3.579.2.593 1994 Unknown [id number] 2.16.840.1.286839.3.579.2.593 1994 Unknown [id number] 2.16.840.1.651514.3.579.2.593 1994 Unknown [id number] 2.16.840.1.187737.3.579.2.593 1994 Unknown [id number] 2.16.840.1.363430.3.579.2.593 1994 Unknown [id number] 2.16.840.1.587688.3.579.2.593 1994 Unknown [id number] 2.16.840.1.571103.3.579.2.593 1994 Unknown [id number] 2.16.840.1.918273.3.579.2.593 1994 Unknown [id number] 2.16.840.1.643198.3.579.2.593 1994 Unknown [id number] 2.16.840.1.571195.3.579.2.593 1994 Unknown [id number] 2.16.840.1.921321.3.579.2.593 1994 Unknown [id number] 2.16.840.1.593258.3.579.2.593 1994 Unknown [id number] 2.16.840.1.211962.3.579.2.593 1994 Unknown [id number] 2.16.840.1.734462.3.579.2.593 1994 Unknown [id number] 2.16.840.1.439688.3.579.2.593 1994 Unknown [id number] 2.16.840.1.842339.3.579.2.593 1994 Unknown [id number] 2.16.840.1.547162.3.579.2.593 1994 Unknown [id number] 2.16.840.1.053054.3.579.2.593 1994 Unknown [id number] 2.16.840.1.907529.3.579.2.593 1994 Unknown [id number] 2.16.840.1.449171.3.579.2.593 1994 Unknown [id number] 2.16.840.1.672240.3.579.2.593 1994 Unknown [id number] 2.16.840.1.834622.3.579.2.1259 1994 Unknown [id number] 2.16.840.1.150063.3.579.2.1259 1994 Unknown [id number] 2.16.840.1.665348.3.579.2.1259 1994 Unknown [id number] 2.16.840.1.614862.3.579.2.1259 1994 Unknown [id number] 2.16.840.1.309224.3.579.2.1259 1994 Unknown [id number] 2.16.840.1.238125.3.579.2.1259 1994 Unknown [id number] 2.16.840.1.037220.3.579.2.1259 1959 Self-pay 1960 Unknown [id number] Unknown [id number] 2.16.840.1.455314.3.579.2.593 Unknown [id number] 2.16.840.1.613693.3.579.2.531 Social History Date Type Detail Facility Unknown if ever smoked [facility] [employer] Other Start: 03-12-2023 Sex Assigned At N [facility] [employer] Other Start: 1995 Sex Assigned At Female F [facility] Start: 03-12-2023 Tobacco smoking status NHIS Never [...] or undercooked meat, and stay away from [facility]. Patient has also been advised to [...] Meenakshi Rosenthal MA documented in this encounter [facility] 05-15-2023 Evaluation note Encounter Date [...] understanding and is agreeable to treatment plan. [facility] Other 07-12-2023 Evaluation note* Encounter Date Diagnosis Assessment Notes Treatment Notes Treatment Clinical Notes Apr, Anxiety disorder, unspecified (ICD-10 - F41.9) Pt states that she, and her , agree that she is doing better on the medication. Continues to have stress, but is dealing more appropriately. Would like to continue this med and this dose. f/u6 months, sooner if needed. [facility] Other 06-15-2023 Evaluation note* Encounter Date Diagnosis [...] help for overwhelm. followup in 1 month [facility] Other 05-12-2022 NoteEducation Materials Cardiovascular Hypertension, Adult [...] without skin, beans, e (more content not included)...[facility] noteNo assessment information availableL[facility] Work Phone: Evaluation noteNo InformationNortLifecare [facility] [employer] Other Evaluation note* Diagnosis Missed menses documented in this encounter [facility] HealthcareHistory general Narrative - Reported* Type Description Date Surgical History C-sect 2019 Surgical History C-sect 2022 [facility] Other History general Narrative - Reported* Type Description Date Medical History Anxiety disorder, unspecified Surgical History C-sect 2019 Surgical History C-sect 2022 Hospitalization History SEE SURGICAL [facility] Other History general Narrative - Reported* Type Description Date Medical History Anxiety disorder, unspecified Medical History Gestational diabetes Surgical History C-sect 2019 Surgical History C-sect 2022 Hospitalization History SEE SURGICAL [facility] Other Summary Purpose Family History No Family History Records FoundNo Family History Records FoundNo Family History Records FoundNo Family History Records Found Advance Directives No Advanced Directives Records FoundNo Advanced Directives Records FoundNo Advanced Directives Records FoundNo Advanced Directives Records Found Additional Source Comments INFORMATION SOURCE (unrecogn ized section and content) DATE CREATED AUTHOR 03/18/2022 [facility] DATE CREATED AUTHOR AUTHOR'S ORGANIZ ATION [facility]20[facility] DATE CREATED AUTHOR AUTHOR'S ORGANIZ ATION 05/24/2023 [facility] DATE CREATED AUTHOR AUTHOR'S ORGANIZ ATION 05/21/2024 [facility] EPIC REASON FOR VISIT (unrecogniz ed section and content) Reason Comments Amenorrhea Care Teams (unrecognized sec tion and content) Team Status: Inactive Member Role Status Dates Linsye Witt APRN Attending Provider Active Clinical Director Relationship Specialty Start Date End Date Gissel Santana MD [address] [place] [address] PCP - General Family Medicine [...] BE BASED ON THE PRIMARY CLINICAL RECORDS. [employer]. provides no warranty or guarantee of the accuracy or completeness of information in this document.
--- NOTE | 2024-06-04 11:01 | US_ITS ---
[address] [address] Patient Name: VADIM CONSTANTINO MRN: [id number] date: 1995 Sex: F Assigned Patient Location: [facility] Current Patient Location: [facility] Accession/Order Number: [id number] Exam Date: 06/04/2024 11:05 Report Date: 06/04/2024 11:57 At the request of: ESTELLA BUENO Procedure: US OB BPP w non-stress EXAMINATION: US OB BPP w non-stress HISTORY:GESTATIONAL DIABETES MELLITUS O24.419 COMPARISON: No relevant comparison available. TECHNIQUE: Ultrasound biophysical profile was performed in the radiology department. BREATHING MOVEMENTS: 2 GROSS BODY MOVEMENTS: 2 TONE: 2 QUALITATIVE AMNIOTIC FLUID VOLUME: 2 PRESENTATION: CEPHALIC HEART RATE: 169 bpm AMNIOTIC FLUID VOLUME: 18.17 cm GESTATIONAL AGE: 33 weeks 6 days US/US OB BPP w non-stress IMPRESSION: Total biophysical profile score: 8 Electronically authenticated by: DEE GALLEGOS Date: 06/04/2024 11:57
[2024-06-04 11:25] VITALS: BP 133/77; PULSE 85
== END 2024-06-04 12:22 | disposition home or self-care (01) ==
LOC: US 07:57 → FBC 10:56
PROVIDERS: Visit Provider Obstetrics & Gynecology
DX: O24.419 Gestational diabetes mellitus in pregnancy, unspecified control (principal); Z3A.33 33 weeks gestation of pregnancy
CPT/HCPCS: 76818

== ENCOUNTER 2024-06-07 06:49 | Outpatient (OUT) | payer BC, SELFPAY ==
--- OUTSIDE RECORDS SUMMARY | 2024-06-07 06:51 | XMS_ITS | CCD ---
Author Organization [facility] Care Team Providers Care Project Manager Process Development Name Role Phone MECHELLE ., DR SORIA [...] Teresa Primary Care Unavailable MECHELLE ., DR SORAI Attending Unavailable MECHELLE ., DR SORIA Consulting [...] Teresa Primary Care Unavailable MECHELLE ., DR SOIRA Attending Unavailable MECHELLE ., DR SORIA Consulting [...] Unavailable MECHELLE ., DR SORIA Admitting Unavailable [place], Sebastian Consulting Unavailable SANTANA, DR GISSEL Teresa [...] Interpretation and review of laboratory results Abnormal [facility] Healthca re Preg Test, Ur Positive [facility] Healthcar e Urinalysis macro (dipstick) panel (U)on 12-13-2023 Bilirubin, UA Negative Negative - 4(70) +++ mg/dL [facility] Blood, UA Negative Negative - 50 Sal/mcL [facility] Clarity, UA Clear [facility] Healthil re Color, UA Yellow [facility] Healthcar e Glucose, UA Negative Negative - 1999(110) ++++ mg/dL [facility] Interpretation and review of laboratory results Abnormal [facility] re Ketones, UA Positive Negative - 160(16) ++++ mg/dL [facility] Leukocytes, UA Negative Negative - 500+++ Lizzy/mcL [facility] Nitrite, UA Negative Negative - Positive [facility] pH, UA 7.0 5 - 9 [facility] Healthcar e Protein, UA Positive Negative - 1999(20) ++++ mg/dL [facility] Spec Grav, UA 1.030 1 - 1.03 [facility] Urobilinogen, UA 0.2 0.2 - 12 mg/dL [facility] Strepon 05-15-2023 S. pyogenes Org specific cx Ql (Throat) Negative [facility] Other Quick Strep [facility] Other Throat Cultureon 05-15-2023 Throat culture Heavy Normal Respiratory John 2 Days PERFORMED BY: [place] [address] [place] [address] PATHOLOGIST PROJECT LANDSCAPE ARCHITECT ARACELI HAYWOOD M.D. Normal [facility] Comment on above: Performed By: #### C ID #### [facility] [address] GROUP B STREP CULTUREon 01-27 S. [...] F Tetracycline <=0.25 S F Normal [facility] Comment on above: Performed By: #### A FPMAT #### [facility] [address] [place] [address] Dr. Alexsander Dickinson CBC AUTO DIFFon 02-02-2023 BASO # 0.0 103/ul Normal 0.0-0.1 [facility] Comment on above: Performed By: #### C BC #### [facility] [address] [place] [address] Dr. Alexsander Dickinson Basophils/100 WBC (Bld) 0.2 % Normal 0.2-2.0 [facility] Comment on above: Performed By: #### C BC #### [facility] [address] [place] [address] Dr. Alexsander Dickinson EO # 0.0 103/ul Normal 0.0-0.7 [facility] Comment on above: Performed By: #### C BC #### [facility] [address] [place] [address] Dr. Alexsander Dickinson Eosinophils/100 WBC (Bld) 0.0 % Critically low 0.9-7.0 [facility] Comment on above: Performed By: #### C BC #### [facility] [address] [place] [address] Dr. Alexsander Dickinson Erythrocyte distribution width (RBC) [Ratio] 12.5 % Normal 11.0-15.0 [facility] Comment on above: Performed By: #### C BC #### [facility] [address] [address] [address] Alexsander Dickinson Hematocrit (Bld) [Volume fraction] 32.9 % Critically low 36.0-48.0 [facility] Comment on above: Performed By: #### C BC #### [facility] [address] [place] [address] Dr. Alexsander Dickinson Hemoglobin (Bld) [Mass/Vol] 10.7 g/dL Critically low 12.0-16.0 [facility] Comment on above: Performed By: #### C BC #### [facility] [address] [place] [address] Dr. Alexsander Dickinson IG # 0.12 10e3/ul Critically high 0.00-0.03 [facility] Comment on above: Performed By: #### C BC #### [facility] [address] [place] [address] Dr. Alexsander Dickinson IG % 0.7 % Critically high 0.0-0.5 [facility] Comment on above: Performed By: #### C BC #### [facility] [address] [place] [address] Dr. Alexsander Dickinson LYMPH # 1.1 103/ul Critically low 1.2-3.8 [facility] Comment on above: Performed By: #### C BC #### [facility] [address] [place] [address] Dr. Alexsander Dickinson Lymphocytes/100 WBC (Bld) 6.4 % Critically low 20.5-60.0 [facility] Comment on above: Performed By: #### C BC #### [facility] [address] [place] [address] Dr. Alexsander Dickinson MANUAL DIFF REQ NO Normal [facility] Comment on above: Performed By: #### C BC #### [facility] [address] [place] [address] Dr. Alexsander Dickinson MCH (RBC) [Entitic mass] 26.1 pg Critically low 26.7-34.0 [facility] Comment on above: Performed By: #### C BC #### [facility] [address] [address] [address] Alexsander Dickinson MCHC (RBC) [Mass/Vol] 32.5 g/dL Normal 29.9-35.2 [facility] Comment on above: Performed By: #### C BC #### [facility] [address] [address] [address] Alexsander Dickinson MCV (RBC) [Entitic vol] 80.2 fL Critically low 81.0-99.0 [facility] Comment on above: Performed By: #### C BC #### [facility] [address] [address] [address] Alexsander Dickinson MONO # 0.4 103/ul Normal 0.3-0.8 [facility] Comment on above: Performed By: #### C BC #### [facility] [address] [place] [address] Dr. Alexsander Dickinson Monocytes/100 WBC (Bld) 2.1 % Normal 1.7-12.0 [facility] Comment on above: Performed By: #### C BC #### [facility] [address] [place] [address] Dr. Alexsander Dickinson NEUT # 15.5 103/ul Critically high 1.4-6.5 [facility] Comment on above: Performed By: #### C BC #### [facility] [address] [place] [address] Dr. Alexsander Dickinson Neutrophils/100 WBC (Bld) 90.6 % Critically high 43.0-75.0 [facility] Comment on above: Performed By: #### C BC #### [facility] [address] [place] [address] Dr. Alexsander Dickinson Platelet mean volume (Bld) [Entitic vol] 10.7 fL Normal 9.5-13.5 [facility] Comment on above: Performed By: #### C BC #### [facility] [address] [place] [address] Dr. Alexsander Dickinson PLT 310 103/ul Normal 150-450 [facility] Comment on above: Performed By: #### C BC #### [facility] [address] [address] [address] Alexsander Dickinson RBC 4.10 106/ul Critically low 4.20-5.40 [facility] Comment on above: Performed By: #### C BC #### [facility] [address] [address] [address] Alexsander Dickinson WBC 17.1 103/ul Critically high 4.0-11.0 [facility] Comment on above: Performed By: #### C BC #### [facility] [address] [place] [address] Dr. Alexsander Dickinson CBC AUTO DIFFon 02-01-2023 BASO # 0.0 103/ul Normal 0.0-0.1 [facility] Comment on above: Performed By: #### A 1C #### [facility] [address] [place] [address] Dr. Alexsander Dickinson Basophils/100 WBC (Bld) 0.2 % Normal 0.2-2.0 [facility] Comment on above: Performed By: #### A 1C #### [facility] [address] [place] [address] Dr. Alexsander Dickinson EO # 0.0 103/ul Normal 0.0-0.7 [facility] Comment on above: Performed By: #### A 1C #### [facility] [address] [place] [address] Dr. Alexsander Dickinson Eosinophils/100 WBC (Bld) 0.4 % Critically low 0.9-7.0 [facility] Comment on above: Performed By: #### A 1C #### [facility] [address] [place] [address] Dr. Alexsander Dickinson Erythrocyte distribution width (RBC) [Ratio] 12.9 % Normal 11.0-15.0 [facility] Comment on above: Performed By: #### A 1C #### [facility] [address] [place] [address] Dr. Alexsander Dickinson Hematocrit (Bld) [Volume fraction] 34.2 % Critically low 36.0-48.0 [facility] Comment on above: Performed By: #### A 1C #### [facility] [address] [address] [address] Alexsander Dickinson Hemoglobin (Bld) [Mass/Vol] 11.4 g/dL Critically low 12.0-16.0 [facility] Comment on above: Performed By: #### A 1C #### [facility] [address] [address] [address] Alexsanedr Dickinson IG # 0.04 10e3/ul Critically high 0.00-0.03 [facility] Comment on above: Performed By: #### A 1C #### [facility] [address] [place] [address] Dr. Alexsander Dickinson IG % 0.5 % Normal 0.0-0.5 [facility] Comment on above: Performed By: #### A 1C #### [facility] [address] [place] [address] Dr. Alexsander Dickinson LYMPH # 2.1 103/ul Normal 1.2-3.8 [facility] Comment on above: Performed By: #### A 1C #### [facility] [address] [place] [address] Dr. Alexsander Dickinson Lymphocytes/100 WBC (Bld) 23.9 % Normal 20.5-60.0 [facility] Comment on above: Performed By: #### A 1C #### [facility] [address] [place] [address] Dr. Alexsander Dickinson MANUAL DIFF REQ NO Normal [facility] Comment on above: Performed By: #### A 1C #### [facility] [address] [place] [address] Dr. Alexsander Dickinson MCH (RBC) [Entitic mass] 27.0 pg Normal 26.7-34.0 [facility] Comment on above: Performed By: #### A 1C #### [facility] [address] [place] [address] Dr. Alexsander iDckinson MCHC (RBC) [Mass/Vol] 33.3 g/dL Normal 29.9-35.2 [facility] Comment on above: Performed By: #### A 1C #### [facility] [address] [place] [address] Dr. Alexsander Dickinson MCV (RBC) [Entitic vol] 81.0 fL Normal 81.0-99.0 [facility] Comment on above: Performed By: #### A 1C #### [facility] [address] [place] [address] Dr. Alexsander Dickinson MONO # 0.5 103/ul Normal 0.3-0.8 [facility] Comment on above: Performed By: #### A 1C #### [facility] [address] [place] [address] Dr. Alexsander Dickinson Monocytes/100 WBC (Bld) 6.0 % Normal 1.7-12.0 [facility] Comment on above: Performed By: #### A 1C #### [facility] [address] [place] [address] Dr. Alexsander Dickinson NEUT # 5.9 103/ul Normal 1.4-6.5 [facility] Comment on above: Performed By: #### A 1C #### [facility] [address] [place] [address] Dr. Alexsander Dickinson Neutrophils/100 WBC (Bld) 69.0 % Normal 43.0-75.0 [facility] Comment on above: Performed By: #### A 1C #### [facility] [address] [place] [address] Dr. Alexsander Dickinson Platelet mean volume (Bld) [Entitic vol] 10.5 fL Normal 9.5-13.5 [facility] Comment on above: Performed By: #### A 1C #### [facility] [address] [place] [address] Dr. Alexsander Dickinson PLT 275 103/ul Normal 150-450 [facility] Comment on above: Performed By: #### A 1C #### [facility] [address] [place] [address] Dr. Alexsander Dickinson RBC 4.22 106/ul Normal 4.20-5.40 [facility] Comment on above: Performed By: #### A 1C #### [facility] [address] [place] [address] Dr. Alexsander Dickinson WBC 8.6 103/ul Normal 4.0-11.0 [facility] Comment on above: Performed By: #### A 1C #### [facility] [address] [place] [address] Dr. Alexsander Dickinson LDHon 02-01-2023 LDH 124 U/L Normal 81-234 [facility] Comment on above: Performed By: #### C MP, LDH, URIC #### [facility] [address] [place] [address] Dr. Alexsander Dickinson POINT OF CARE GLUCOSEon Glucose [Mass/Vol] 98 mg/dL Normal 74-106 [facility] Comment on above: Performed By: #### A 1C #### [facility] [address] [place] [address] Dr. Alexsander Dickinson PROF 14(COMP METB)on 023 Albumin [Mass/Vol] 2.5 g/dL Critically low 3.4-5.0 [facility] Comment on above: Performed By: #### C MP, LDH, URIC #### [facility] [address] [place] [address] Dr. Alexsander Dickinson Albumin/Globulin [Mass ratio] 0.6 {ratio} Normal [facility] Comment on above: Performed By: #### C MP, LDH, URIC #### [facility] [address] [place] [address] Dr. Alexsander Dickinson ALP [Catalytic activity/Vol] 138 U/L Critically high 46-116 [facility] Comment on above: Performed By: #### C MP, LDH, URIC #### [facility] [address] [place] [address] Dr. Alexsander Dickinson ALT [Catalytic activity/Vol] 15 U/L Normal 14-59 [facility] Comment on above: Performed By: #### C MP, LDH, URIC #### [facility] [address] [place] [address] Dr. Alexsander Dickinson Anion gap [Moles/Vol] 14.5 mmol/L Normal [facility] Comment on above: Performed By: #### C MP, LDH, URIC #### [facility] [address] [address] [address] Alexsander Dickinson AST [Catalytic activity/Vol] 8 U/L Critically low 15-37 [facility] Comment on above: Performed By: #### C MP, LDH, URIC #### [facility] [address] [address] [address] Alexsander Dickinson Bilirubin [Mass/Vol] 0.2 mg/dL Normal 0.2-1.0 [facility] Comment on above: Performed By: #### C MP, LDH, URIC #### [facility] [address] [address] [address] Alexsander Dickinson Calcium [Mass/Vol] 8.6 mg/dL Normal 8.5-10.1 [facility] Comment on above: Performed By: #### C MP, LDH, URIC #### [facility] [address] [place] [address] Dr. Alexsander Dickinson Chloride [Moles/Vol] 103 mmol/L Normal 98-107 [facility] Comment on above: Performed By: #### C MP, LDH, URIC #### [facility] [address] [address] [address] Alexsander Dickinson CO2 [Moles/Vol] 23.7 mmol/L Normal 21.0-32.0 [facility] Comment on above: Performed By: #### C MP, LDH, URIC #### [facility] [address] [address] [address] Alexsander Dickinson Creatinine [Mass/Vol] 0.61 mg/dL Normal 0.55-1.02 [facility] Comment on above: Performed By: #### C MP, LDH, URIC #### [facility] [address] [address] [address] Alexsander Dickinson EGFR-AF GHANAIAN >60 Normal >=60 [facility] Comment on above: Performed By: #### C MP, LDH, URIC #### [facility] [address] [place] [address] Dr. Alexsander Dickinson EGFR-NON AF GHANAIAN >60 Normal >=60 [facility] Comment on above: Performed By: #### C MP, LDH, URIC #### [facility] [address] [address] [address] Alexsander Dickinson Globulin (S) [Mass/Vol] 4.1 g/dL Normal [facility] Comment on above: Performed By: #### C MP, LDH, URIC #### [facility] [address] [address] [address] Alexsander Dickinson Glucose [Mass/Vol] 123 mg/dL Critically high 74-106 [facility] Comment on above: Performed By: #### C MP, LDH, URIC #### [facility] [address] [place] [address] Dr. Alexsander Dickinson Potassium [Moles/Vol] 4.2 mmol/L Normal 3.5-5.1 [facility] Comment on above: Performed By: #### C MP, LDH, URIC #### [facility] [address] [place] [address] Dr. Alexsander Dickinson Protein [Mass/Vol] 6.6 g/dL Normal 6.4-8.2 [facility] Comment on above: Performed By: #### C MP, LDH, URIC #### [facility] [address] [place] [address] Dr. Alexsander Dickinson Sodium [Moles/Vol] 137 mmol/L Normal 136-145 [facility] Comment on above: Performed By: #### C MP, LDH, URIC #### [facility] [address] [place] [address] Dr. Alexsander Dickinson Urea nitrogen [Mass/Vol] 5.0 mg/dL Critically low 7.0-18.0 [facility] Comment on above: Performed By: #### C MP, LDH, URIC #### [facility] [address] [place] [address] Dr. Alexsander Dickinson Urea nitrogen/Creatinine [Mass ratio] 8.2 mg/mg Normal [facility] Comment on above: Performed By: #### C MP, LDH, URIC #### [facility] [address] [place] [address] Dr. Alexsander Dickinson PROTIMEon 02-01-2023 INR Coag (PPP) [Relative time] {INR} Normal [facility] Comment on above: Performed By: #### H BSANS #### [facility] [address] [place] [address] Dr. Alexsander Dickinson INR GUIDELINES SEE BELOW Normal [facility] Comment on above: Result Comment: CAROLEE RED INR: 2.0 - 3.0 CONDITIONS NOT LISTED BELOW 2.5 - 3.5 FOR PROSTHETIC HEART VALVE REPLACEMENT 2.5 - 3.5 RECURRENT THROMBOSIS Performed By: #### H BSANS #### [facility] [address] [place] [address] Dr. Alexsander Dickinson PT Coag (PPP) [Time] 9.2 s Normal 9.0-11.6 [facility] Comment on above: Performed By: #### H BSANS #### [facility] [address] [place] [address] Dr. Alexsander Dickinsno PTTon 02-01-2023 aPTT Coag (Bld) [Time] 25.9 s Normal 22.3-36.2 [facility] Comment on above: Performed By: #### H BSANS #### [facility] [address] [place] [address] Dr. Alexsander Dickinson TYPE AND SCREENon 02-01-2023 TYPE AND SCREEN Negative Normal [facility] Comment on above: Performed By: #### A FPMAT #### [facility] [address] [place] [address] Dr. Alexsander Dickinson URIC ACID SERUMon 02-01-2023 Urate [Mass/Vol] 5.5 mg/dL Normal 2.6-6.0 [facility] Comment on above: Performed By: #### C MP, LDH, URIC #### [facility] [address] [place] [address] Dr. Alexsander Dickinson US PREG BIOPHY W [...] by: DEE GALLEGOS Date: 2023-02-01 15:04 Normal [facility] US PREG BIOPHY W NON [...] by: SEBASTIAN HENRY Date: 2023-01-25 15:18 Normal [facility] US PREG BIOPHY W NON [...] by: DEE GALLEGOS Date: 2023-01-19 06:16 Normal [facility] US PREG BIOPHY W NON [...] DEE GALLEGOS Date: 2023-01-11 15:38 Normal [facility] US PREG GROWTHon 01-11-2023 US PREG [...] DEE GALLEGOS Date: 2023-01-11 16:42 Normal [facility] GTT 3 HR PREGon 12-01-2022 Glucose [Mass/Vol] 104 mg/dL Normal 74-106 [facility] Comment on above: Performed By: #### A 1C #### [facility] [address] [address] [address] Aelxsander Dickinson Glucose [Mass/Vol] 182 mg/dL Normal [facility] Comment on above: Performed By: #### A 1C #### [facility] [address] [address] [address] Alexsander Dickinson Glucose [Mass/Vol] 114 mg/dL Normal [facility] Comment on above: Performed By: #### A 1C #### [facility] [address] [place] [address] Dr. Alexsander Dickinson Glucose [Mass/Vol] 73 mg/dL Normal [facility] Comment on above: Performed By: #### A 1C #### [facility] [address] [address] [address] Alexsander Dickinson PAP ACOG PANEL 2: 20 to 28on 11-18-2022 . . Normal [facility] Comment on above: Performed By: #### A 1C #### [facility] [address] [place] [address] Dr. Alexsander Dickinson Age Gdln ACOG Testing 21-29 [facility] Comment on above: Performed By: #### A 1C #### [facility] [address] [place] [address] Dr. Alexsander Dickinson DIAGNOSIS: Comment [facility] Comment on above: Result Comment: NEGA TIVE FOR INTRAEPITHELIAL LESION OR MALIGNANCY. Performed By: #### A 1C #### [facility] [address] [place] [address] Dr. Alexsander Dickinson Methodology: Comment [facility] Comment on above: Result Comment: This liquid based ThinPrep(R) pap test was screened with the use of an image guided system. Performed By: #### A 1C #### [facility] [address] [place] [address] Dr. Alexsander Dickinson Note: Comment [facility] Comment on above: Result Comment: The Pap smear is a screening test designed to aid in the detection of premalignant and malignant conditions of the uterine cervix. It is not a diagnostic procedure and should not be used as the sole means of detecting cervical cancer. Both false-positive and false-negative reports do occur. . Performed By: #### A 1C #### [facility] [address] [place] [address] Dr. Alexsander Dickinson Performed by: Comment Normal [facility] Comment on above: Result Comment: Cici Clarke, Procurement Representative (ASCP) Performed By: #### A 1C #### [facility] [address] [place] [address] Dr. Alexsander Dickinson Reflex Criteria: Comment [facility] Comment on above: Result Comment: The HPV DNA reflex criteria were not met with this specimen result therefore, no HPV testing was performed. . Performed By: #### A 1C #### [facility] [address] [place] [address] Dr. Alexsander Dickinson Specimen adequacy: Comment Normal [facility] Comment on above: Result Comment: Sati sfactory for evaluation. No endocervical component is identified. Performed By: #### A 1C #### [facility] [address] [place] [address] Dr. Alexsander Dickinson CHLAMYDIA/GONOCOCCUS ZUNILDA (SW AB/URINE/PAPon 11-17-2022 Chlamydia trachomatis, ZUNILDA Negative Normal Negative [facility] Comment on above: Performed By: #### A 1C #### [facility] [address] [place] [address] Dr. Alexsander Dickinson Neisseria gonorrhoeae, ZUNILDA Negative Normal Negative [facility] Comment on above: Performed By: #### A 1C #### [facility] [address] [place] [address] Dr. Alexsander Dickinson VAGINITIS/VAGINOSIS DNA PROB Jose De Jesus 11-16-2022 Reema species Negative Normal Negative [facility] Comment on above: Performed By: #### V AGINT #### [facility] [address] [place] [address] Dr. Alexsander Dickinson Gardnerella vaginalis Negative Normal Negative [facility] Comment on above: Performed By: #### V AGINT #### [facility] [address] [place] [address] Dr. Alexsander Dickinson Trichomonas vaginalis Negative Normal Negative [facility] Comment on above: Performed By: #### V AGINT #### [facility] [address] [place] [address] Dr. Alexsander Dickinson US PREG INCOMPLETE ANATOMYon 11-14-2022 US PREG INCOMPLETE ANATOMY EXAMINATION: US PREG INCOMPLETE ANATOMY HISTORY: screening COMPARISON: No relevant comparison available. FINDINGS: Heart rate: 150 bpm position: Variable Anatomy: 4.8 x 5.8 mm choroid plexus cyst is again identified IMPRESSION: Stable choroid plexus cyst Electronically authenticated by: SEBASTIAN HENRY Date: 2022-11-14 16:19 Normal [facility] FREE T4on 10-19-2022 Free T4 [Mass/Vol] 0.89 ng/dL Normal 0.76-1.46 [facility] Comment on above: Performed By: #### H BSANS #### [facility] [address] [address] [address] Alexsander Dickinson TSHon 10-19-2022 TSH 1.303 uIU/mL Normal 0.358-3.740 [facility] Comment on above: Performed By: #### H BSANS #### [facility] [address] [address] [address] Alexsander Dickinson US PREG ANATOMY SINGLEon [...] DEE GALLEGOS Date: 2022-10-17 20:42 Normal [facility] AFP MATERNAL FOR SPINA BIFID Aon 10-11-2022 AFP MoM 1.49 Normal [facility] [facility] Comment on above: Performed By: #### A FPMAT #### [facility] [address] [address] [address] Alexsander Dickinson AFP Value 60.8 ng/mL Normal [facility] Comment on above: Performed By: #### A FPMAT #### [facility] [address] [address] [address] Alexsander Dickinson AFP, Serum for Spina Bifida Report Normal [facility] Comment on above: Performed By: #### A FPMAT #### [facility] [address] [address] [address] Alexsander Dickinson Comment Comment Normal [facility] Comment on above: Result Comment: Niurka Patricia, Ph.D., [facility] Director . References: Available Upon Request. . Multiples Of Median Cutoffs For AFP Elevations Fonseca 2.5 Black 2.8 IDD 2.0 Twins 4.5 Abbreviation Definitions IDD - Insulin Dep Diabetes OSBR - Open Spina Bifida Risk . For further inquiries contact [facility] at [phone]. . This test was developed and its performance characteristics determined by [employer]. It has not been cleared or approved by the Food and Drug Administration. Performed By: #### A FPMAT #### [facility] [address] [place] [address] Dr. Alexsander Tiwari Age Collection Date 19.4 weeks Normal [facility] Comment on above: Performed By: #### A FPMAT #### [facility] [id number] Alexsander Dickinson Gestat, Age Based on NILE Normal [facility] Comment on above: Result Comment: 02/2023 Recalculations are not recommended when gestational dating by LMP and ultrasound are within 10 days. Performed By: #### A FPMAT #### [facility] [address] [place] [address] Dr. Alexsander Dickinson Insulin Dep Diabetes No Normal [facility] Comment on above: Performed By: #### A FPMAT #### [facility] [address] [place] [address] Dr. Alexsander Dickinson Interpretation Comment Normal [facility] Comment on above: Result Comment: Inte [...] Customer Services to discuss available options. The [employer] recommends amniocentesis be offered to women age 35 and older. Performed By: #### A FPMAT #### [facility] [address] [place] [address] Dr. Alexsander Dickinson [age] Normal [facility] Comment on above: Performed By: #### A FPMAT #### [facility] [address] [place] [address] Dr. Alexsander Dickinson Multiple Gestation No Normal [facility] Comment on above: Performed By: #### A FPMAT #### [facility] [address] [place] [address] Dr. Alexsander Dickinson OSBR Risk 1 [place] 2809 Normal [facility] Comment on above: Performed By: #### A FPMAT #### [facility] [address] [place] [address] Dr. Alexsander Dickinson PDF . Normal [facility] Comment on above: Performed By: #### A FPMAT #### [facility] [address] [place] [address] Dr. Alexsander Dickinson Race Normal [facility] Comment on above: Performed By: #### A FPMAT #### [facility] [address] [place] [address] Dr. Alexsander Dickinson Test Results: Negative Normal [facility] Comment on above: Performed By: #### A FPMAT #### [facility] [address] [place] [address] Dr. Alexsander Dickinson GTT 3 HR PREGon 09-29-2022 Glucose [Mass/Vol] 99 mg/dL Normal 74-106 [facility] Comment on above: Performed By: #### A FPMAT #### [facility] [address] [address] [address] Alexsander Dickinson Glucose [Mass/Vol] 173 mg/dL Normal [facility] Comment on above: Performed By: #### A FPMAT #### [facility] [address] [address] [address] Alexsander Dickinson Glucose [Mass/Vol] 151 mg/dL Normal [facility] Comment on above: Performed By: #### A FPMAT #### [facility] [address] [address] [address] Alexsander Dickinson Glucose [Mass/Vol] 76 mg/dL Normal [facility] Comment on above: Performed By: #### A FPMAT #### [facility] [address] [place] [address] Dr. Alexsander Dickinson GLUCOSE - 1HRon 09-20-2022 Glucose [Mass/Vol] 159 mg/dL Critically high 74-106 [facility] Comment on above: Performed By: #### H BSANS #### [facility] [address] [place] [address] Dr. Alexsander Dickinson HEP B SURFACE ANTIGEN SCREEN on 08-17-2022 HBsAg Screen Negative Normal Negative [facility] Comment on above: Performed By: #### H BSANS #### [facility] [address] [place] [address] Dr. Alexsander Dickinson HEPATITIS C VIRUS AB W/ REFL EX QUANTon 08-17-2022 HCV AB <0.1 Normal 0.0-0.9 [facility] Comment on above: Performed By: #### A 1C #### [facility] [address] [place] [address] Dr. Alexsander Dickinson Interpretation: Comment Normal [facility] Comment on above: Result Comment: Nega tive Not infected with HCV, unless recent infection is suspected or other evidence exists to indicate HCV infection. Performed By: #### A 1C #### [facility] [address] [place] [address] Dr. Alexsander Dickinson HIV 1 AND 2 WITH REFLEXon HIV Screen 4th Generation wRfx Non-Reactive Normal Non Reactive [facility] Comment on above: Result Comment: HIV Negative HIV-1/HIV-2 antibodies and HIV-1 p24 antigen were NOT detected. There is no laboratory evidence of HIV infection. Performed By: #### H IV12 #### [facility] [address] [address] [address] Alexsander Dickinson RPR QUANTon 08-17-2022 Rapid Plasma Reagin, Quant Non-Reactive Normal NonRea<1:1 [facility] Comment on above: Result Comment: Plea se Note: This test does not meet current guidelines for screening and diagnosis of syphilis. This test is intended for following treatment response in patients being treated for syphilis infection. To screen for syphilis infection, a reflex cascade that includes both RPR and a treponema-specific assay should be utilized, such as Treponema pallidum (Syphilis) Screening [place] (694871) or Rapid Plasma Reagin (RPR) Test With Reflex to Quantitative RPR and Confirmatory Treponema pallidum Antibodies (630252). Performed By: #### H BSANS #### [facility] [address] [place] [address] Dr. Alexsander Dickinson RUBELLA AB IGGon 08-17-2022 Rubella Antibodies, IgG 11.90 index Normal Immune >0.99 [facility] Comment on above: Result Comment: Non- immune <0.90 Equivocal 0.90 - 0.99 Immune >0.99 Performed By: #### H BSANS #### [facility] [address] [address] [address] Alexsander Dickinson CBC AUTO DIFFon 08-16-2022 BASO # 0.1 103/ul Normal 0.0-0.1 [facility] Comment on above: Performed By: #### H BSANS #### [facility] [address] [place] [address] Dr. Alexsander Dickinson Basophils/100 WBC (Bld) 0.6 % Normal 0.2-2.0 [facility] Comment on above: Performed By: #### H BSANS #### [facility] [address] [address] [address] Alexsander Dickinson EO # 0.1 103/ul Normal 0.0-0.7 [facility] Comment on above: Performed By: #### H BSANS #### [facility] [address] [place] [address] Dr. Alexsander Dickinson Eosinophils/100 WBC (Bld) 0.9 % Normal 0.9-7.0 [facility] Comment on above: Performed By: #### H BSANS #### [facility] [address] [place] [address] Dr. Alexsander Dickinson Erythrocyte distribution width (RBC) [Ratio] 12.9 % Normal 11.0-15.0 [facility] Comment on above: Performed By: #### H BSANS #### [facility] [address] [place] [address] Dr. Alexsander Dickinson Hematocrit (Bld) [Volume fraction] 39.0 % Normal 36.0-48.0 [facility] Comment on above: Performed By: #### H BSANS #### [facility] [address] [place] [address] Dr. Alexsander Dickinson Hemoglobin (Bld) [Mass/Vol] 12.9 g/dL Normal 12.0-16.0 [facility] Comment on above: Performed By: #### H BSANS #### [facility] [address] [place] [address] Dr. Alexsander Dickinson IG # 0.04 10e3/ul Critically high 0.00-0.03 [facility] Comment on above: Performed By: #### H BSANS #### [facility] [address] [place] [address] Dr. Alexsander Dickinson IG % 0.4 % Normal 0.0-0.5 [facility] Comment on above: Performed By: #### H BSANS #### [facility] [address] [place] [address] Dr. Alexsander Dickinson LYMPH # 2.4 103/ul Normal 1.2-3.8 [facility] Comment on above: Performed By: #### H BSANS #### [facility] [address] [place] [address] Dr. Alexsander Dickinson Lymphocytes/100 WBC (Bld) 26.3 % Normal 20.5-60.0 [facility] Comment on above: Performed By: #### H BSANS #### [facility] [address] [place] [address] Dr. Alexsander Dickinson MANUAL DIFF REQ NO Normal [facility] Comment on above: Performed By: #### H BSANS #### [facility] [address] [place] [address] Dr. Alexsander Dickinson MCH (RBC) [Entitic mass] 28.4 pg Normal 26.7-34.0 [facility] Comment on above: Performed By: #### H BSANS #### [facility] [address] [place] [address] Dr. Alexsander Dickinson MCHC (RBC) [Mass/Vol] 33.1 g/dL Normal 29.9-35.2 [facility] Comment on above: Performed By: #### H BSANS #### [facility] [address] [place] [address] Dr. Alexsander Dickinson MCV (RBC) [Entitic vol] 85.7 fL Normal 81.0-99.0 [facility] Comment on above: Performed By: #### H BSANS #### [facility] [address] [place] [address] Dr. Alexsander Dickinson MONO # 0.6 103/ul Normal 0.3-0.8 [facility] Comment on above: Performed By: #### H BSANS #### [facility] [address] [place] [address] Dr. Alexsander Dickinson Monocytes/100 WBC (Bld) 6.8 % Normal 1.7-12.0 [facility] Comment on above: Performed By: #### H BSANS #### [facility] [address] [place] [address] Dr. Alexsander Dickinson NEUT # 5.8 103/ul Normal 1.4-6.5 [facility] Comment on above: Performed By: #### H BSANS #### [facility] [address] [address] [address] Alexsander Dickinson Neutrophils/100 WBC (Bld) 65.0 % Normal 43.0-75.0 [facility] Comment on above: Performed By: #### H RACHELNS #### [facility] [address] [place] [address] Dr. Alexsander Dickinson Platelet mean volume (Bld) [Entitic vol] 9.9 fL Normal 9.5-13.5 [facility] Comment on above: Performed By: #### H BSANS #### [facility] [address] [place] [address] Dr. Alexsander Dickinson PLT 275 103/ul Normal 150-450 [facility] Comment on above: Performed By: #### H BSANS #### [facility] [address] [place] [address] Dr. Alexsander Dickinson RBC 4.55 106/ul Normal 4.20-5.40 [facility] Comment on above: Performed By: #### H BRITTANIE #### [facility] [address] [place] [address] Dr. Alexsander Dickinson WBC 8.9 103/ul Normal 4.0-11.0 [facility] Comment on above: Performed By: #### H BSAMARC #### [facility] [address] [place] [address] Dr. Alexsander Dickinson CULTURE URINEon 08-16-2022 CULTURE URINE Culture Observations: MODERATE GROWTH OF MIXED GENITAL JOHN. NO POTENTIAL PATHOGENS SEEN. Normal [facility] Comment on above: Performed By: #### A FPMAT #### [facility] [address] [place] [address] Dr. Alexsander Dickinson GLYCOHEMOGLOBIN A1Con 2021 ADA RECOMMENDATION SEE BELOW Normal [facility] Comment on above: Result Comment: ADA RECOMMENDED LIMIT 4.0 - 6.0 ADA THERAPEUTIC TARGET < 7.0 ACTION SUGGESTED > 7.0 Performed By: #### A 1C #### [facility] [address] [place] [address] Dr. Alexsander Dickinson Glucose [Mass/Vol] 111 mg/dL Normal [facility] Comment on above: Performed By: #### A 1C #### [facility] [address] [address] [address] Alexsander Dickinson HbA1c (Bld) [Mass fraction] 5.5 % Normal 4.5-6.2 [facility] Comment on above: Performed By: #### A 1C #### [facility] [address] [address] [address] Alexsander Dickinson LATRELL BOX TEST PT SEND OUTo n 08-16-2022 SENT TO REF LAB 08/16/2022 Normal [facility] Comment on above: Performed By: #### N BOX #### [facility] [address] [address] [address] Alexsander Dickinson TYPE AND SCREENon 08-16-2022 TYPE AND SCREEN Negative Normal [facility] Comment on above: Performed By: #### A FPMAT #### [facility] [address] [place] [address] Dr. Alexsander Dickinson US PREG TVon 07-21-2022 [...] DEE GALLEGOS Date: 2022-07-20 22:25 Normal [facility] US PREG TVon 07-13-2022 US PREG TV EXAMINATION: US PREG TV HISTORY: Missed period COMPARISON: 03/09/2022 FINDINGS: Fonseca intrauterine gestation Gestational sac: 1.7 cm, 6 weeks 2 days Yolk sac: 1.7 mm Kep'El-rump length: 5.8 mm, 6 weeks 3 days Heart rate: 125 bpm Uterus is normal in appearance, anteverted, retroflexed The ovaries are normal in appearance. Cervix: Closed, 3.9 cm small amount of fluid in the endocervical canal IMPRESSION: Viable fonseca intrauterine gestation measuring 6 weeks 3 days Electronically authenticated by: SEBASTIAN HENRY Date: 2022-07-13 17:05 Normal [facility] Coding Summaryon 03-17-2022 Coding Summary HTMLBase 64 FyfplkinPAk5zXo+PGhl YWQ+WB7JWMWoK41vyZQv bQ0KO3qRTO7CCTGZHDUV VF9MDT6cqNZ1EZrxI6Ff biAv YvhxdRGvCN17WKp8ZBU5 bIvwDBncsR1ckATvL7b5 OaVsQI83vS57RZfcEIKz RzQ4IaYnhvsovOAn U0nnZrOzbGUnVji+PHRh YmxlIHdpZHRoPScxMDAl RxOxhWmnJB6mUq6uQFZq LWNvbGxhcHNlOiBj a0qeFKLxBTobOW0vrIdb I7MbbIU8ZQPkn5a4Jf43 dHI+ALRtNEX0wEymJLpd l684PjChx7bxFYH5 iNHuTCcwBPY3W02la9P2 FNAmOMMxCGW3bFX0lW9s vRiuqzpaX7MtbQMkWiH2 LKA3rEWiyO3ufMbu xrfftW2pUfo+D74GYM4G WGCXYB7KIot1T4BhOgjd dHI+JE74IZRrRR29rITb pRDnz1pndXt5DkCn TDIvQQV1cBamZPbqf8At FCCeF75cyFHwg1L4OYZr eZcfiQVtNoVquEI3lG7r DVfyclndy2ysuakc Yvals1gpab46wV93X16v OCesABWpXBZ2RXVzUYSd iAyoew6vaC6vUz1+IDxj q5bsm3tbkAt8TiSd OZGbccUjoGroAXI7n0Rk Pa32Z6HdhPuul6LvMvb2 vr12vJMqp7J4uRE0EHxl RHXnjM8kKEhvUkX3 LFTkFsZnuT94mSVpETwf Tb1uaYmzgMsyPT9hPTKu amzoAJYrzQ2iCSHbxNHm hDmyMX9mPYMvktbp h467HoRwBMT9ODAsdLQn D2SonL2uBeZyKRJlWNDs C9VxkIGaDWysV043WGsw BuM3QZKbheDcC1Mr YNMmtVnsOmF6g5I9Fl1E x5ZkdhohKLA5TZcvAHR5 FaGsXoTbGeF1D8VpHdj6 YLCnfEilWZ5dP1Cg OGFxpdgvlkjsgOE7KPVj RHBfcB53uAUcQIupTm4f o1Q4j569SOYmSOAibO44 Bp9evEueBZLwsFOX vE1ylcdmd8inbtaqBlJx DFTzQEu0CRh1UIKceBjy DhWwKFW3DhU5KUD7kGSs lP4ytHbqecrpsY4w Oyc+E69ttO1aPLH3PDW9 qubsOCKjdsYgJV58BX13 Q0AyCpdhbQYjlHS+PGRp ivPjmRuaCD2aMaSd c0ijz9YzOCwlJ6UaYFSe RVtmSxu8NVPwWKF6qZL2 xF3fSBFgIMjns4S5qMN5 X5BsehWwyi4pw1mu FBCiHQsnK49kpLXki3P1 SJIxlGW2IBAkqCfcQuSv aM15Sfx+VYLkaRccq3Jd Dnlon1exb9shxEf7 IjMwJSIgdmFsaWduPSJ0 x3WvGs31O59bTMoqFLJs GTIbKSTiXZXtiWwjfk6v vW4gZu5+PGNvbCB3 lQX3vB9kKNPdGvX9WEnz W176LeRqqLVfEhddo5wz e5lfmNj4GsXdCXIlgfFn xGvlKGS2l2NtEt57 T07gCGlqVPVvZKYrLFQv YCRuyHbjpv6ewU8zZb0+ CB7tl8ohvp28gH92hGF+ OPCvWXJ8dTnwPGgr YJCbdP6kJVptPfU3YYKv FzUlsA18lRZyFKcyHa8z zNqzsZqkOX3iPADhwsbe g852HzOoe8hrCUGd nOUkTJpsSST2H74oi8H4 EEJfTFEqLGT7bGG6tA0c bGlnbjogbGVmdDsgdmVy pDelXCbeVSsgO154 IHRvcDsnPlBhdGllbnQg OhEeBAa0H1DhGsy9ASTx kGbbGE1ucQQvPRffAg5d vEwwnPfyWS5aWIIk fixhe451BdCrq7fzCHUf nVMyYYlbLKG0B29mz5P4 FVTwNQLrPCT8gTW2uW2z bGlnbjogbGVmdDsg muZngHctSBcrQWmwP845 IHRvcDsnPkJpcnRoIERh fBS0GI50OM72rHRqp6D5 dYK1F8EqCGKmlhuv jkylcIX8VVVhTGFjwG18 Gl5svVmbMz3oYVLvPMV6 ARNugXNkJ3QgdD8vJuEs BAXiYWSlP5DdpLAk FNujC335MDfhToJ1YKWn bkYlA6OrIVTokSkkFgV8 n8E2Qr9MC4C2VK18TB74 bIJku4X6wWT9V3Du LPYueyxhqmgbeCR0SKAd XRPhnP28Qd9opNutMv7v GKHuVFV0KOZmfLLsD1Br aO2qQrYxJGTtGBHj H9NftFMnCXkeS970ZYvn XmH7SGUwutQyR8MiODHu pYmwRiO0m9T7Vd2BMGu0 GO89BA41xLPaa2M5 dNI2V4OuDDEuzoakedoq vKY6IMLkSCFrfU53Dj5v tZhlUj8dEXRjSXQ1OHEe xCYcH7OxwX5iTnTv SPAcHHHsL9TtkVPsMHpn U583AKadAlH8WFJbaqCl X0LoKJCwaRclHbD4b1Y1 Lk5BTPFoEO19QZA8 bYF2ZB57NA58H1OvQacq dGFibGU+PHRhYmxlIHdp ZHRoPScxMDAlJyBzdHls YH4zBu6bYPXyHZHf iHdnyAXjGcBzk4blFERw RDdfFF1uyUhvO2XraCT8 TFKce2z5Ex07O77jW1Eu dXA+KWTbxHT7nRZ3 uF9xRtXgVsV4SRleL214 OyLziWJvTzexu7aun6pp xSj2PcH9UCTczlHnnBqr DGG2x1IpCe56Z44q IHdpZHRoPSIxNSUiIHZh aBwdvz7gpA0cFs2+PGNv sJJ9iSL0pF2pAqYsCmD9 HJrpP922XzYphGUv Bbkhy4uuw2xaoKu0QoQr ETQhnfNvjAazWEF4q9It Rs92G6TwyGhme0KyQtv5 ti30vQIlk2N7bAY5 V5XfDXAjcsyxkUMmiSyt IG4rRCGhqtyyKZXbqT5o LEUfJ7c6SpIpCuI2BTxr Q8PumxT7JGXyrXTo AHqzQPD0N22vc8T2LKQs PLPiKDP8kHM5gK3kcNau bjogbGVmdDsgdmVydGlj NPkzTJfyD773QBQr nXtcVHXerF5aCXSrfNYx hBsfRB7gAUAmajwxFwAA TExJTlMsIEFMWVNTQSBS XTPCCJz0O5CkRzg0 FLTkuNalYG6fnBSxQOkq Fd4acFyveQztFL7tIYKz nafoITBeiG2dYISjvNXr yZctVI4mRXRvprjr d230JuMsQUX7GATipLBj S6HotQ7vNjDxQYUcLJMe E9IdrIGcGPwiM855PGnq JdP7CXWbafDaY8Hj VQIyqGivBgX8v4L6Zp1j HB3zQm5zWUs3TH53EU31 yIVuy0W4oWM1N8SoFEKq hsnijljmgZW1LFPs YCLpgZ12tRXoIUqnLn0h e2O2f924ZZRbTDHokW23 Tt1owTteTMKyxRPRlS1t lqmnf1xbskmhStRi YVFpZUy2JMv9GEXdeRmo BvStROJ0TxV1NXC8qBZl uN0feEaeasomkP9oNyi+ NwziPERtobO3E8Ao Gph3XPHqmFqgBY0peHHe QHqpXd8egHxpdGzpFH1y RFKakqroNJIefC7wYPLa dXPavVqxOO3tEEWh ytsns502TwBxDGI6OTGd pGYxO8QiuB9gCtBaAETs GVZdC9TwyXSpTAssA310 FHxiQyI5FYCnakZb W0UtFZQioCegThI3q4T9 Ji4JCG3KOER2X7GsKrs4 LHTmhPjdOI9tvKRnIEgq Cj6tpEwmvTbvUK6t MIUxdtilYWGezX8qYJUb aTSyyCumHQ3nQQVobmti f686JjMsDEB4ENShhXAb K2ShkP3hXbMuTDXo XUJpU4LpoIWrPXshD194 LTrsWmV1MIVuycKpQ7Gl INKgcBaaLaL8t7X3Wf9J UDwvdGQ+DA59mw63 T5FqOirwAvu9KSLiCOY9 pFV5eK5fYCYhOHbsh4E3 eSS6L7MepcNpgm3ph4ny HMHeZJwfN61jyNLk w1S4DHBdcWJ4OEMowGpc YeGlcW88Spm+PGNvbGdy x4TdDbxkc0pod9dwgXh5 IjMwJSIgdmFsaWdu HPY1l1PqNg16R37eZGqk ZHRoPSIzMCUiIHZhbGln ex0leM5nGd0+PGNvbCB3 uVX7iS8vJoPzLdG2 PKpxN177KcQmvDHbDjca w8vas4eufMm9MtZvOJUi liHnrSypOFP9z8AlEb91 O4WchPnse1WwPry1 up56gYSjp5L4kHI3U5Qs NTUyotxcgSPceAzxGA5w OSIctrgcTMWapF3jVVDv V7k8JjWnToB2JMsg Z4XbxzV2HTZqiTHtJEIp lZNQpY8qasxuz8osbvyl FjLgJAMmZIj6NCk6SZNk yRtnOyJmNLK2ZsK9 HSR0xHOcyU3gtDtvboph kB3yDlt+DLb3u6zlyGAu NE7qqUL3UL57OO96iLWe c9N9bFR5Z4OaVCIq oovtugqdbFI4GOAoWWMp uE70Nq7lkUkwWu4mRSJz JHW4SHJelLEeG2PpkT7x OcXcKBWyXLIfU2Fb sJWyXOkgJ151NLwcIiS9 FOBcuwLoX2YmLSZonThl KaK4r6B2Yh8IMC99KD62 DG08oNIjz2E9zKR2 X3NnNXKhnmclbhyjdLD7 GZUvVYCuzG93Kl1ppDeu Kg3ySPMfTZS8PGRiiPSh E7RryO9eJaMlTWLn PNGeS1WpxAZqLCanH304 HVxjLnC0BEBwhyNbS7Xi GZZaoVwwPxO3c4S7Zb8F Ve94RD26TR31iLDp x9O5wIH7H1BzZAAdfwfx hkudoKC6QUDjRIOhvJ41 Td6azHhtQy8jWXTjVKE9 DXDcoYRuO9YkeP9p AwBnULUjIBGxQ7RmdVAu LBygV882UUqbHyR8XPTn bwXcO2IhXVBoaIobUtN3 d7O6Hg5IHLscxcp2 I4GyDjyvrGA+GG36AIUn VW19zSNwdKMnk5chiKt1 OrBbYZUkTNV2uEzpWQux f6JuACRlA08qvGUl c2U (more content not included)... [facility] Coding Summary HTMLBase 64 CdxlintdSUp4wZl+PGhl YWQ+UA7MZGIaE69tsVKb zN6JZ6xGZR2QEMMGYEWU ED0HUN7nuRR8WZroH7Lo biAv HdedeTMvCG42SZb9ZIX8 oPijYJqyzU4buPUyX8k1 HoZlHG26sA94YIniMXHx ZsE1AqJrmiwpaPRs O6voVkIkfBVlIin+PHRh YmxlIHdpZHRoPScxMDAl GlNwwKiwNJ0jHd3lXCYj LWNvbGxhcHNlOiBj q6tmFVEbRBnyES9moMwq X6EeoDY8NOPux2d9Df07 dHI+JWZuRYW2oYojVDmy e954GdVym1ujKTS6 dEYoPQihLCI9J53um5Y4 CLGlPMOnDDR3xDC2xN7x pVbrqkwbB5IebQSpOaL3 VRY0kRQcdT0asGof wrqfxO8bUjx+G15LBI9L VDKAGF2GWhu5R4YyUewd dHI+XU55XQOuTR40rQVw qHGzb7lndGi8BpSk LKGnROG3pRrjJLwsi9Jz KNFbP79ryKTgu2R3OZUv dAjotDBgXcDpnWF0hC9z OKpukthpm2fqlzuk Yeqgv6pjmy40yF77A75x LEtkFFNeYNL4TSQrIZTg fZatfw3ljA2bPe0+IDxj n7nea2wxtUu8NtIj BMOdzjAhuMyfZDC2v0Sw Tv67G9EifVnzo4RoIsv0 zd83bKHvg1W7jPQ7VPog IYFpyC5kFUmpPbQ4 RBUcOcTuxG29bTGgGAob Jq0zmCsqjQelNU2eNGUj mgmsLTFyzP6qADWlcJIp nImjTG3eRNGzczft q388EmUwOEB4ZPEfxVOv C7TgbI2xOyEcWNXpYPSj N9AxtWWjGTmxC692ACve CzA1AYZcmpYqT7Uf MHXorMnuKdR8w0E0Nt7O t8KmcquaKCP7HFcuKLS3 NzIwJmJpVaT3T7KfJej6 ZMLplUygMK3mV6Wn BHTrvrusukdilWI7GSPe EBLmsE92xKMcEJgdIz3s g3K2c682XNIeZFStgB81 Tm3auQgbSQYtbFCZ eX6bhyhjt6ifnwfzQtGw OMCrVJo4TCy4KJYmaJhn FeWsXZQ9KmU9SHU5qCLh qC9egHrlbbvhbE2q Oyc+V52isB2rYNU8YQL9 acfsLTMyvlQaNQ38LI59 M6QiEcvagMHohZP+PGRp lbSyxKvcMB1sWuAg e5qke0MyKRcqW4VaIEKb QPilXli8WEGjRDW9uLM7 iL2hLEQsIXyhj3Q1xDI8 D5HgqgNdsn4hh3ld AYOfOGmnS43clXTpd6Z5 OVTskRT7RVJztOieXaBe tC28Qoa+WKEyjXrpu2Mf Moqiq9dcx1qltLv1 IjMwJSIgdmFsaWduPSJ0 n3YsBn01K87vHCqmVHMu YNQgWIPkVPSngGfjvh5y jE2qHb0+PGNvbCB3 uES6yS8pNNQxOwY5UArq C249WwHopIPiYsssy8ej n9chzJm7HmPwDPThwwTv fUpyURG8q7LfEc27 G02tTGhsTFYtIWRwLEQe TJWinTepkg4goD5eUm4+ TB0ay9jfxl75rW78xUQ+ XLRlVCS0gKguEBrd FUQkoL3yZBecScS4KYDy TqPrzW39gZHbKMbqLs7p uFwlcLwdLH7vFMRoawrq k106IpMvs8kuKFCn qCDnQKpqKKE1O57jj5I2 XVTmVPQeSTJ4gMU0rP5r bGlnbjogbGVmdDsgdmVy hHzdFWbjUZhbE240 IHRvcDsnPlBhdGllbnQg IwTsPHh1L0DdZhc9AQYd dVkyBD1feMShLZeyXg2t gWlpeNmxYV4kTIJi xtcjc118QuRvt4tmILGm uBMbYSszEUM1N82zu4J2 XJHrACVkTFQ5bGO4tF1k bGlnbjogbGVmdDsg zlWmsElcNDmeHOkeU744 IHRvcDsnPkJpcnRoIERh tBR5QT43KE29dJYns9K0 zLH9Y2HzZRJtnutd noptiRD4THSoIALqeH65 Hw9uhYjaJo8yIIDoMJD4 FQGpfHSmG1MgiE7vWuUn NRPtONZbK4XxrDNa OYseZ860GFqgSjW9FLZn pgTaF6RhKVVmwTogXqI4 w2V2Pl3OU8S5WD34RP08 eNQyc2O7fJG9V8Ty RANnzmfeiogbwFL2XKKn TTCsdS75Da9twPirDf8e MDIxEBK2VXGxyRJxH7Hn bF7xXuPfRKZaCLKd H5FnvBStALjzI869LQwe QqE7KRDkjwXgJ1FlNGQo lLtjBvO9n8M1Ze1QBIj9 IV34SI96jDTlu9X8 vID5M5JaJVNrbwmihurg cJF6AMJzYNWimD64Vm7x zPgwPv5hYPYuAWG2NXZv fGMeS5QfyT8hQmQt DLHdYVHsG1VpdTNpCDhs D852QZwpTcD9NEXsudJo I4RnLKUtuEheQaB3f7K3 Ap8LOAUdIL74ORJ5 eKS7XL58VK59A0KeNcrt dGFibGU+PHRhYmxlIHdp ZHRoPScxMDAlJyBzdHls ZY9jDz2vGAUnAPEk pNfywJVtCgTcg8vqFDBp XShbXB2voHaxM0EptJH8 XFIzr8l0Pn37V11rI0Dq dXA+XANbfUB5qXJ9 yF1wSdCpYwN8UUzfH259 FnEosSIpMqonf9pha7sw gAh3BdR5QWXysqGobXvs FTD7k0UyDj36G52f IHdpZHRoPSIxNSUiIHZh zZwxbs9jmD5gAc6+PGNv pID2hGT6sI6gPzOkAxE0 YYhwF650XsXmsMTa Okpfp1eys8kphAa3TbKu UOKfzmGjzSuhEQN6c1Ro Mm91D8QwpTwbt2AsScd3 zb55pFPvq6Z5aUX9 G4ViOUWintdwgJWjrKwv LK0yFOKwjoibXPWdnQ4k AQZjH1b1AaOoBxL4XFjy J6IdsrQ6KDKseVKr WKccESN8M22pz5W2AZQu KEApISP4jFL3pY0naJix bjogbGVmdDsgdmVydGlj TMsuIHfoG813CQTn pMvvQCAgpV7yQRBfwLJy dCqjRN9eIENndzjkIyLQ TExJTlMsIEFMWVNTQSBS WPNBDNl1U5PxFch4 HETxwFujDH9nmEPqTIil Jl1xcJderVrrXL1rAIVq oqbrGVFxsE4pONYlpEIl vLmnIH3zASEtrtor p946QoUnWQO3PDRlfJWc O1KjzB4wAiPeKYEuKYZb R8TrwWBfLPvnM302DXny CoU3KFAkkfOfW5Cc XGGkjNelZkB3e3O8Cq2a AS5rBr7hQIi1IN83FQ06 vVDyf6P7xYV6E9ZoKRKi jndahkandUF4GKHl COQivK59aZLeKSpvCz1m y8S9x243NUSmBMCluM65 Kw9thNfcPKVhzSYAlN9x qudyl4zrxiglToRz QUMzLPx6OSs0SJPqzEed XkFjZQY4FhT7MFH2gSEt iF0ofRxipuztaY7eNpc+ UnzrKCHepqL5T4Ps Onc8CHVonKfmVW2xjLAl XYeiVd5byNxowLjjQP9w NQXnetfaHZZdlN1kKDHf hXRxbFpuOM6rGIYg kebop641AuJeKJO9ZEMl pFWlN0SlgF6lZkEgXCXl LWGrB1OalBJgULgjE055 XOgnPbF1ALOzxoAy O7EiKRNlmMvgSqB6d3Q7 Fj4GKQ6IKFH4U4BcSvg8 NWGopVuuSU2cjXGpTUqd Ye1scYadoCcfKY0p ZZFrcinvLOFedR8tICUj aBDioCxuVO5kISMgycqg u671LeZlNDA6DZBjfFTo N8KcrU1gFxFhVHQj ESQdY4GjyXDjLKbwF494 BAngLhQ3YAVdtaFkM3Op EIKtwZgnTyG3v6W4Bq1O lNYoR0UcG0b0J1Th PjwvdHI+JK56MEGvEI28 oIKphOYlv0vvnNe5LnGa POYgYQQ2iQkpTLyrm8Xa RJAoW23yiNYxt1T8 IGNvbGxhcHNlOyBlbXB0 mJ1uKKwategrw0uxxqyu Nhiwk5hwou96sK22K60q IHdpZHRoPSIzMCUi CNDqfDnpkc5igL1kJy2+ IREemUQ6aTZ6mX6oYzBx ReG2SUmiP277JrJjhDNd Vwhay0yaz0xgjPe7 IjIwJSIgdmFsaWduPSJ0 j3HyXk57D78vDKurDHCa ZKHgHUUpNMGbhKfktw7w eH0jDw3+UU9ih8jt hd75eV31jTP+PHRkIHN0 eUxxVIhwYNUhjI7lCJrn YqM0YQYdZpEmtF28eTLm NHyqGr1luQyguRbw KN5cJUDsluhsy074TfBq d3ljKHTqaIDeIUawWDX9 T11bk8Y2ZXXnNIDcWPL3 lXQ6fG6viPhdvmxj bGVmdDsgdmVydGljYWwt TQndM348RMHfjQdnIuIw pXGiT4zmltNYJT5iJsij dGQ+EFXtSFF1rFmk BFoxMUUbtD9fZZOwB1d1 KoPlFpI8JIntQ2PbulG7 VIXbkBFgLMNckFAJtB4d nsqdr2npcgsmSaCo VZIkTIt3SKp0BNFvxXxo PmCwWYG9ZaZ3SOR6uMEo cO2qcNgvtcfccS9dAbw+ RklOOjwvdGQ+PHRk IUC4bYdrLMidYAXcaW7w ZNRhF8n7CwKkRvU5PAnk N5YzifR3QOHueMBhXLVu qZHToR0aftfvq0al wvnzCbUuEZOaKEc7HVc6 OCWtaPvnCqGmNAW0KhA8 LOC2cMJgmS1etCuopmdv hY6mUro+TVJOOjwv dGQ+DNIsHLJ9tZrpABwy LIFchY4zWEMdT6m4VsCl CzJ8BHgeS1EnlkV7MWTc sXBbRXKfdCTLxI3j sdmnr6epjibqBxVcLDUy QXc7WTr6IVIpjHshNoCj ZFG3FyG4RDM4yGPwkP0x wAqripcazX1wGcf+ ZOW6OKJ1CB06JF09W6Mw PjwvdGFibGU+PHRhYmxl IHdpZHRoPScxMDAlJyBz mCsjJN5lIw4pPLDc LWN (more content not included)... Normal [facility] C Urineon 03-11-2022 C Urine Urine Culture ordered as a result of parameters set on specific urine dip and urine microsopic results. >3 Organisms Consistent with Contamination Recollection suggested. Normal [facility] Comment on above: Performed By: #### 1 0054429, 56832925, 4003507, 0332478997, 56277926, 8961393, 5612000002, 4337045571, 9257512822, 6009212 #### [facility] (DEFAULT) [address] [place] [address] 94540 .Auto Diff 03-09-2022 Auto Baker % 8 % Normal 11-09 [facility] Comment on above: Performed By: #### 1 0927559, 76567732, 2664910, 6074951012, 97607627, 9846518, 4128635583, 3477618294, 1334615797, 4207304 #### [facility] (DEFAULT) [address] [place] [address] Baso Abs# 0.0 x10 Normal 0.0-0.2 [facility] Comment on above: Performed By: #### 1 1199942, 32197809, 9544635, 0973874863, 57576073, 2683759, 6800137723, 7356718921, 2944046115, 9457844 #### [facility] (DEFAULT) [address] [place] [address] 78871 Basophils/100 WBC (Bld) 0.3 % Normal 0.2-2.0 [facility] Comment on above: Performed By: #### 1 9894856, 91060143, 9650776, 6969049375, 39048045, 8106917, 0796890784, 6511811455, 4957390346, 5513335 #### [facility] (DEFAULT) [address] [place] [address] 14129 Eos Abs# 0.1 x10 Normal 0.0-0.4 [facility] Comment on above: Performed By: #### 1 2834144, 88875476, 8576736, 5292632288, 85892807, 6382693, 7814779176, 0772187173, 5535864276, 6200542 #### [facility] (DEFAULT) [address] [place] [address] 04593 Eosinophils/100 WBC (Bld) 1.0 % Normal 0.9-4.0 [facility] Comment on above: Performed By: #### 1 8139027, 21374887, 8832653, 9871943808, 16338800, 9842525, 4400658967, 5312168867, 9135535416, 4768435 #### [facility] (DEFAULT) [address] [place] [address] 84349 Lymph Abs# 2.0 x10 Normal 1.3-2.9 [facility] Comment on above: Performed By: #### 1 1267207, 45695828, 2573242, 5861168072, 18441638, 8758035, 6812965274, 4007980319, 8328556933, 6548050 #### [facility] (DEFAULT) [address] [place] [address] 61956 Lymphocytes/100 WBC (Bld) 35 % Normal 14-48 [facility] Comment on above: Performed By: #### 1 6752989, 54101584, 4021779, 5220560549, 01119832, 3827199, 4584261462, 6789507291, 6269903878, 4526366 #### [facility] (DEFAULT) [address] [place], [place] [address] Baker Abs# 0.5 x10 Normal 0.0-0.8 [facility] Comment on above: Performed By: #### 1 2737949, 29766749, 9258921, 0457135313, 09266949, 7937100, 6468516185, 4001937151, 0623585962, 4340462 #### [facility] (DEFAULT) [address] [place] [address] Neut Abs# 3.2 x10 Normal 1.5-9.2 [facility] Comment on above: Performed By: #### 1 7114359, 75248701, 1354860, 3925458265, 84273495, 5285590, 1052549147, 4107916982, 3998417760, 0951743 #### [facility] (DEFAULT) [address] [place] [address] Neutrophils/100 WBC (Bld) 55 % Normal 44-88 [facility] Comment on above: Performed By: #### 1 1228668, 16302096, 0075532, 2145757871, 89666342, 2785091, 1716453188, 8039749328, 8027360854, 0534594 #### [facility] (DEFAULT) [address] [place] [address] ABORhon 03-09-2022 ABO and Rh group Nom (Bld) Hx Check: Not Found Anti-A: 4+ Anti-B: 0 Anti-D: 4+ DCon: 0 A1: mf+ B: 4+ ABORh Interp: A POS Invalid Interpretation Code [facility] Comment on above: Performed By: #### 1 7345970, 75691856, 9352134, 5410408435, 39435037, 5708858, 9746082950, 6363637506, 1143303022, 1119634 #### [facility] (DEFAULT) [address] [place] [address] 88260 ABORh Retypeon 03-09-2022 ABO and Rh group Nom (Bld) Ordered by Discern. Anti-A: 4+ Anti-B: 0 Anti-D: 4+ DCon: 0 A1: mf+ B: 4+ ABORh Retype: A POS Invalid Interpretation Code [facility] Comment on above: Performed By: #### 1 7083021, 17055758, 3506156, 6388003606, 55929195, 1230969, 9960965764, 8963769550, 0011106502, 5138739 ####[facility] (DEFAULT)[address] [place] [address] CBC w/ Auto Diffon Erythrocyte distribution width (RBC) [Ratio] 13.3 % Normal 11.5-15.0 [facility] Comment on above: Performed By: #### 1 1406045, 01253377, 6138992, 5046013179, 67804873, 5344763, 1619967485, 8151498710, 7534583638, 9200931 #### [facility] (DEFAULT) [address] [place] [address] Hematocrit (Bld) [Volume fraction] 43.5 % High 33.7-40.4 [facility] Comment on above: Performed By: #### 1 9728521, 20905186, 9453410, 3020909999, 44993416, 5208570, 6237687372, 7835322000, 5621386071, 2669489 #### [facility] (DEFAULT) [address] [place] [address] 38863 Hemoglobin (Bld) [Mass/Vol] 14.1 g/dL Normal 11.3-15.9 [facility] Comment on above: Performed By: #### 1 6033528, 25603421, 2862348, 4605987999, 71123727, 9702322, 0081658662, 6664623844, 1554510696, 3958002 #### [facility] (DEFAULT) [address] [place] [address] 41555 Instr WBC 5.7 x10 Invalid Interpretation Code [facility] Comment on above: Performed By: #### 1 5351669, 36170313, 9125551, 8409136787, 80038959, 2836961, 0027587892, 9915537344, 0479337697, 7575437 #### [facility] (DEFAULT) [address] [place] [address] 05171 Man Diff? Auto Normal [facility] Comment on above: Performed By: #### 1 2460650, 25408174, 3729273, 9215574507, 85015959, 1674284, 7500858240, 9025568084, 9868912223, 5629347 #### [facility] (DEFAULT) [address] [place] [address] 28485 MCH (RBC) [Entitic mass] 28 pg Normal 24-34 [facility] Comment on above: Performed By: #### 1 0317226, 53094116, 4970025, 3943919574, 85614032, 5667899, 3812024993, 0914009905, 0408153970, 7240297 #### [facility] (DEFAULT) [address] [place] [address] 67507 MCHC (RBC) [Mass/Vol] 32 g/dL Normal 26-37 [facility] Comment on above: Performed By: #### 1 2132613, 17065768, 2906418, 9149569360, 92770862, 1909305, 7623353101, 1754848828, 9808354574, 8597473 #### [facility] (DEFAULT) [address] [place] [address] 61298 MCV (RBC) [Entitic vol] 86 fL Normal 81-100 [facility] Comment on above: Performed By: #### 1 7348795, 18480598, 0401651, 0869253119, 57205396, 9176014, 1434954667, 0147487834, 0878768074, 5201843 #### [facility] (DEFAULT) [address] [place] [address] 07841 Platelet 324 x10 Normal 138-427 [facility] Comment on above: Performed By: #### 1 3752146, 29011730, 4070471, 6861852063, 08015946, 1558222, 6790016082, 3437976138, 6577554932, 1803224 #### [facility] (DEFAULT) [address] [place] [address] 31119 Platelet mean volume (Bld) [Entitic vol] 9.8 fL Normal 6.3-10.2 [facility] Comment on above: Performed By: #### 1 7475504, 93776447, 0110215, 6157138676, 24473913, 0868507, 6211200814, 2614368791, 9702457416, 1077058 #### [facility] (DEFAULT) [address] [place] [address] 34207 RBC 5.07 x10 Normal 3.70-5.30 [facility] Comment on above: Performed By: #### 1 1725830, 40485221, 2336175, 4226903180, 97451135, 3762553, 7444739297, 8029550829, 8481581654, 5835522 #### [facility] (DEFAULT) [address] [place] [address] 91897 WBC 5.7 x10 Normal 3.5-10.5 [facility] Comment on above: Performed By: #### 1 6856519, 91878847, 3540756, 9369797537, 67656754, 8005547, 3580710034, 5518026887, 1299211491, 8626654 #### [facility] (DEFAULT) [address] [place] [address] 11013 CMP Standardon 03-09-2022 eGFR Non AA >60 Invalid Interpretation Code [facility] Comment on above: Performed By: #### 1 5279918, 71092469, 4008033, 1665813152, 48124440, 5339580, 7360099333, 8857739246, 5395368742, 0048527 #### [facility] (DEFAULT) [address] [place] [address] 18125 eGFR AA >60 Invalid Interpretation Code [facility] Comment on above: Result Comment: Director Of Business Operations susie Kidney disease could be indicated at eGFRs of less than 60 ml/min/1.73m2. Kidney Failure is indicated at less than 15 ml/min/1.73m2 Performed By: #### 1 2149228, 91316171, 1624208, 1163712330, 71958300, 3169434, 1799563427, 0144689719, 8560979176, 0139769 #### [facility] (DEFAULT) [address] [place] [address] 30399 Albumin [Mass/Vol] 4.5 g/dL Normal 3.5-5.0 [facility] Comment on above: Performed By: #### 1 5637306, 51249373, 4030358, 2207578769, 74401394, 9528495, 7999309310, 3848190790, 4421728520, 1839566 #### [facility] (DEFAULT) [address] [place] [address] 14409 Albumin/Globulin [Mass ratio] 1.2 {ratio} Low 1.4-2.6 [facility] Comment on above: Performed By: #### 1 5786764, 77724107, 0767387, 5139693295, 43051506, 3583295, 9057053422, 3094178325, 5089403546, 9943125 #### [facility] (DEFAULT) [address] [place] [address] 93944 Alk Phos 52 IU/L Normal 32-91 [facility] Comment on above: Performed By: #### 1 2896096, 45649902, 1077407, 3031445433, 37823848, 9889348, 8450009131, 7872167619, 3543578641, 0217858 #### [facility] (DEFAULT) [address] [place] [address] 30303 ALT [Catalytic activity/Vol] 37.0 U/L Normal 14.0-54.0 [facility] Comment on above: Performed By: #### 1 7146791, 38713330, 6327959, 5504909832, 10706341, 8955971, 7216132878, 7949191214, 3433201633, 5898880 #### [facility] (DEFAULT) [address] [place] [address] 52651 Anion gap [Moles/Vol] 18.0 mmol/L Normal 5.0-19.0 [facility] Comment on above: Performed By: #### 1 1244231, 21370174, 1518668, 2240472087, 66746762, 0603295, 5136813874, 6467345927, 2441818584, 2865280 #### [facility] (DEFAULT) [address] [place] [address] 27255 AST [Catalytic activity/Vol] 29 U/L Normal 15-41 [facility] Comment on above: Performed By: #### 1 9409948, 39232974, 2884925, 9944078952, 44230222, 6667644, 2322437055, 1603400409, 8711114642, 7470016 #### [facility] (DEFAULT) [address] [place] [address] 38175 Bili Total 0.7 mg/dL Normal 0.3-1.2 [facility] Comment on above: Performed By: #### 1 7751987, 79435545, 5442762, 5014442717, 69672867, 7892597, 1015923593, 8558600953, 3991698644, 5622296 #### [facility] (DEFAULT) [address] [place] [address] 06993 Calcium [Mass/Vol] 9.4 mg/dL Normal 8.9-10.3 [facility] Comment on above: Performed By: #### 1 4495988, 24883495, 0576126, 8554751093, 95931054, 8544763, 1393323637, 6096582672, 6228095711, 5591118 #### [facility] (DEFAULT) [address] [place] [address] 48812 Chloride [Moles/Vol] 100 mmol/L Low 101-111 [facility] Comment on above: Performed By: #### 1 3536339, 66972678, 6271302, 4533008389, 90371645, 6807601, 3800597978, 3136917847, 0860767337, 9079345 #### [facility] (DEFAULT) [address] [place] [address] 31828 CO2 [Moles/Vol] 24 mmol/L Normal 21-32 [facility] Comment on above: Performed By: #### 1 1787348, 24200743, 4421098, 7953723817, 36123364, 8277472, 1110769688, 1303360991, 3581510080, 3738461 #### [facility] (DEFAULT) [address] [place] [address] 09023 Creatinine [Mass/Vol] 0.75 mg/dL Normal 0.60-1.30 [facility] Comment on above: Performed By: #### 1 2852342, 38086247, 4497990, 0885992588, 42857936, 0429481, 7296741193, 7557904316, 7399223899, 9325415 #### [facility] (DEFAULT) [address] [place] [address] 30862 Globulin (S) [Mass/Vol] 3.9 g/dL Normal 1.5-4.3 [facility] Comment on above: Performed By: #### 1 8837427, 01995149, 1230879, 0999966921, 47106411, 1923205, 2934350433, 4874274916, 0370170312, 5699985 #### [facility] (DEFAULT) [address] [place] [address] 66809 Glucose [Mass/Vol] 98.0 mg/dL Normal 74.0-118.0 [facility] Comment on above: Performed By: #### 1 3635173, 57418540, 3468522, 0416516401, 01457624, 4669995, 4314414426, 7549576355, 8836837680, 4126158 #### [facility] (DEFAULT) [address] [place] [address] 01908 Osmolality 274 mOsm/L Invalid Interpretation Code [facility] Comment on above: Performed By: #### 1 1777196, 38561538, 9484990, 5394258210, 63728529, 4984037, 8959862871, 7417634668, 0617696850, 5025620 #### [facility] (DEFAULT) [address] [place] [address] 42358 Potassium [Moles/Vol] 3.5 mmol/L Low 3.6-5.1 [facility] Comment on above: Performed By: #### 1 2256030, 04432215, 0838035, 0017848195, 38765037, 3960485, 6518580096, 1447414235, 5641717108, 6072803 #### [facility] (DEFAULT) [address] [place] [address] 21742 Protein [Mass/Vol] 8.4 g/dL High 6.5-8.1 [facility] Comment on above: Performed By: #### 1 1647468, 28388682, 2023821, 5989101079, 37562170, 1320006, 8730917665, 3271781376, 4367264973, 7492854 #### [facility] (DEFAULT) [address] [place] [address] 72778 Sodium [Moles/Vol] 138.0 mmol/L Normal 136.0-144.0 [facility] Comment on above: Performed By: #### 1 0178165, 39397404, 1249247, 4514733090, 35295570, 6850903, 7685350632, 2220783298, 5664461084, 8747291 #### [facility] (DEFAULT) [address] [place] [address] 62151 Urea nitrogen [Mass/Vol] 7 mg/dL Low 8-26 [facility] Comment on above: Performed By: #### 1 6372062, 44716098, 3923457, 6559391230, 40002245, 3936665, 0120002125, 7477531400, 8640313534, 2590175 #### [facility] (DEFAULT) [address] [place] [address] 41736 Urea nitrogen/Creatinine [Mass ratio] 9.0 mg/mg Normal 4.6-16.2 [facility] Comment on above: Performed By: #### 1 1849362, 93277487, 3921616, 7211779902, 70554848, 5176900, 1367896776, 8714325515, 9621544107, 3023914 #### [facility] (DEFAULT) [address] [place] [address] 63809 ED Clinical Summaryon 2021 ED Clinical Summary [facility] - Emergency Department [address] [place] [address] 25385 ED Clinical Summary PERSON INFORMATION Name: DIANE JOYCE Age: 26 Years Sex: FEMALE : 1995 MRN: Acct#: Visit Reason: Vaginal bleeding - < 20 wks ; BLEEDING, Arrival: 03/09/2022 15:56:59 Discharge: 03/09/2022 18:28:00 LOS: 000 02:32 Check In: 03/09/2022 15:56:59 Checkout:03/09/2022 18:28:00 Address: [address] [place] [address] PCP: Provider, None PROVIDER INFORMATION Provider Role [...] or bladder. States that she follows with rag washer in [place] Dr. Min, contacted his office and they [...] intact, SARINA: -Sclera conjunctiva: Unremarkable. NECK: -Supple (frcr-ep-urhfz): non-tender. CARD: -Rate and rhythm: Regular -Edema: [...] the patient recommended close follow-up with her rag washer and outpatient beta hCG. In the meantime no strenuous ac (more content not included)... Normal [facility] ED Note - Physicianon 2021 ED Note [...] or bladder. States that she follows with rag washer in [place] Dr. Min, contacted his office and they [...] intact, SARINA: -Sclera conjunctiva: Unremarkable. NECK: -Supple (hqdx-wt-qpybj): non-tender. CARD: -Rate and rhythm: Regular -Edema: [...] the patient recommended close follow-up with her rag washer and outpatient beta hCG. In the meantime no strenuous activity, sexual activity if having any worsening issues I recommended he return to the emergency department or going directly to rag washer. Patient indicated she understood was in [...] AA >60 (more content not included)... Normal [facility] ED Note-Nursingon 03-09-2022 Beta HCG ( test) Ql (U) Patient arrives with c/o vaginal bleeding during . States she took a at home test a week ago and estimates being 5 to 6 weeks along. Patient has some mild cramping yesterday 11/07 at has since went away and light vaginal bleeding today. This is the patients second , 1 live . Normal [facility] ED Patient Summaryon 022 ED Patient Summary [facility] - Emergency Department [address] [place], [place] [address] PATIENT DISCHARGE INSTRUCTIONS Patient Information Name: DIANE JOYCE Age: 26 Years Date of : 1995 [facility]: [id number] Reason For Visit: Vaginal bleeding - < 20 wks ; BLEEDING, Arrival Time: 03/09/2022 15:56:59 Primary Care Physician: Provider, None Attending Physician: Adrian Rosales MD Comment: Visit Diagnosis: Diagnoses This Visit Elevated blood pressure reading (R03.0) First trimester (Z34.91) Threatened miscarriage in early (O20.0) Vaginal bleeding (N93.9) Vaginal bleeding - < 20 wks ([id number]) Prescription Information: If you have been given a prescription for narcotics, seek immediate medical attention if you have any difficulty breathing or any sudden status changes such as confusion and sleepiness. If you or anyone you know is experiencing suicidal thoughts, mental health, alcohol and/or drug addiction problems; contact the [facility] 21/05 Crisis Hotline -text 4hope [...] documents With: Address: When: Follow-up with your rag washer for reevaluation next few days. Within 1 to 2 days Comments: Follow-up with rag washer for reevaluation next few days for reevaluation and outpatient quantitative hCG. Return immediately for any worsening issues such as increasing abdominal pains, increasing vaginal bleeding, fevers, or any other problems. With: Address: When: Stephanie Padilla Within 3 to 5 days Comments: Marketing Editor Medication Information: The exam and treatment you received today in the [facility] Emergency Department were for an urgent problem and are not intended as complete care. It is important for you to follow up with a doctor, nurse practitioner, or physician?s personnel assistant for ongoing care. If your symptoms [...] so we can reach you if necessary. [facility] Emergency Department has provided you with a complete list of medications post discharge. Please inform your bi solutions architect/provider of your visit and for further instruction [...] The sec (more content not included)... Normal [facility] Extra Greenon 03-09-2022 Tube Collected Yes Invalid Interpretation Code [facility] Comment on above: Performed By: #### 1 3306335, 38698567, 2851387, 8313143434, 15143627, 1880107, 1412227168, 8820980581, 4838556486, 4083112 #### [facility] (DEFAULT) [address] [place] [address] PT/PTTon 03-09-2022 INR Coag (PPP) [Relative time] 0.95 {INR} Normal 0.91-1.11 [facility] Comment on above: Performed By: #### 1 3274921, 87530470, 4073462, 7395388122, 02815007, 5966670, 9030955174, 5985015457, 1548112362, 3663708 #### [facility] (DEFAULT) [address] [place] [address] PT 10.3 second(s) Normal 9.7-11.8 [facility] Comment on above: Performed By: #### 1 7729107, 17782289, 4710481, 2460689624, 13044442, 9344173, 3254198898, 9703346489, 4109863630, 3034757 #### [facility] (DEFAULT) [address] [place] [address] PTT 34 second(s) Normal 25-35 [facility] Comment on above: Performed By: #### 1 8605284, 62125784, 5349601, 0650858678, 36093418, 7868598, 5271680629, 2483606034, 6949259757, 7663689 #### [facility] (DEFAULT) [address] [place] [address] RhIG.on 03-09-2022 RhIG. No. Vials RhI RhIG Candidate?: No Date to Give: [id number] RhIG Status: RhIG Ready Normal [facility] Comment on above: Performed By: #### 1 1236841, 60868501, 0999932, 0109179919, 44898733, 5902149, 1220467274, 5543339740, 1456221573, 6900816 ####[facility] (DEFAULT)[address] [place] [address] UA Rpifk1bj 03-09-2022 UA Amorph. 1+ [facility] Comment on above: Order Comment: Urina lysis Microscopic order added on by Discern Expert Rules system. Performed By: #### 5 1586273, 3128057, [id number] ####[facility] (DEFAULT)[address] [place] [address] UA Bacteria 2+ [facility] Comment on above: Order Comment: Urina lysis Microscopic order added on by Discern Expert Rules system. Performed By: #### 5 7681600, 4424550, [id number] ####[facility] (DEFAULT)[address] [place] [address] UA Mucous 3+ [facility] Comment on above: Order Comment: Urina lysis Microscopic order added on by Discern Expert Rules system. Performed By: #### 5 4982571, 2896534, [id number] ####[facility] (DEFAULT)[address] [place] [address] UA RBC >100 [facility] Comment on above: Order Comment: Urina lysis Microscopic order added on by Discern Expert Rules system. Performed By: #### 5 6451659, 7747129, [id number] ####[facility] (DEFAULT)[address] [place] [address] UA Squam Epi Many [facility] Comment on above: Order Comment: Urina lysis Microscopic order added on by Discern Expert Rules system. Result Comment: DMITRY VERGARA RN IN ER. RUN UNINALYSIS AND CULTURE ON THIS SPECIMEN. NO RECOLLECT. Performed By: #### 5 6049366, 4052089, [id number] ####[facility] (DEFAULT)[address] [place] [address] UA WBC 3-5 [facility] Comment on above: Order Comment: Urina lysis Microscopic order added on by Discern Expert Rules system. Performed By: #### 5 9466418, 0129580, [id number] ####[facility] (DEFAULT)[address] [place] [address] UA w Culture if Ind Standard on 03-09-2022 Breakpoint UA [facility] Comment on above: Performed By: #### 1 8025673, 78307417, 7707259, 2868036587, 13352764, 3015035, 6219699805, 6617112771, 1970289857, 2431910 #### [facility] (DEFAULT) [address] [place] [address] 31563 Color (U) Yellow [facility] Comment on above: Performed By: #### 1 1682859, 31912445, 7267972, 0750555940, 99097267, 1520393, 5571215653, 7725739923, [id number], [id number] #### [facility] (DEFAULT) [address] [place] [address] Culture? Indicated Invalid Interpretation Code [facility] Comment on above: Result Comment: Resu lt created by rule GL_MAGR_ADD_UA_CULT Result created by rule GL_MAGR_ADD_UA_CULT Result created by rule GL_MAGR_ADD_UA_CULT1 Result created by rule GL_MAGR_ADD_UA_CULT Performed By: #### 1 [id number], 24325757, 1027786, [id number], 68553494, 3190693, [id number], [id number], 2852663591, 4329248 #### [facility] (DEFAULT) [address] [place] [address] Glucose (U) [Mass/Vol] Negative [facility] Comment on above: Performed By: #### 1 [id number], 78418978, 3151102, 4417980726, 72352007, 9432669, 8225451430, 1887484122, 3521584269, 7124417 #### [facility] (DEFAULT) [address] [place] [address]6526 Ketones Ql (U) 40 [facility] Comment on above: Performed By: #### 1 3598321, 84640624, 0262071, 8761372098, 84356152, 9211078, 4355927701, 5562812754, 2481147823, 9904236 #### [facility] (DEFAULT) [address] [place] [address] Micro? Indicated Invalid Interpretation Code [facility] Comment on above: Result Comment: Resu lt created by rule GL_MAGR_ADD_UA_MICRO Performed By: #### 1 0183863, 49246327, 1454848, 9379337244, 20025276, 1062650, 3139722558, 9676403157, 2206928194, 1914041 #### [facility] (DEFAULT) [address] [place] [address] UA Bilirubin Negative Normal [facility] Comment on above: Performed By: #### 1 9942156, 06218225, 5679523, 6716891637, 40191339, 6022269, 4510040124, 5145587863, 2444740569, 4761157 #### [facility] (DEFAULT) [address] [place] [address] 27494 UA Blood LARGE Abnormal NEGATIVE [facility] Comment on above: Performed By: #### 1 2211151, 88362844, 4021259, 8918564002, 94466577, 2148348, 3249113842, 0211022623, 6102850401, 7025745 #### [facility] (DEFAULT) [address] [place] [address] 46184 UA Clarity SL CLOUDY Abnormal CLEAR [facility] Comment on above: Performed By: #### 1 3296462, 12634225, 4469154, 4878101086, 11966717, 3662624, 3860857894, 7847559657, 4510354849, 5812164 #### [facility] (DEFAULT) [address] [place] [address] 88558 UA Leuk Est TRACE Abnormal NEGATIVE [facility] Comment on above: Performed By: #### 1 6187795, 22192303, 7103330, 4615286055, 68326787, 1904764, 2654449477, 0006112617, 0409197449, 0023767 #### [facility] (DEFAULT) [address] [place] [address] UA Nitrite Negative Normal NEGATIVE [facility] Comment on above: Performed By: #### 1 6585010, 49139544, 5350598, 8672830181, 81989543, 9538726, 8132412721, 5575343030, 3905255975, 4829365 #### [facility] (DEFAULT) [address] [place] [address] 40374 UA pH 6.5 Normal 5-8 [facility] Comment on above: Performed By: #### 1 1536960, 91730232, 3887697, 2631610002, 19286246, 5028868, 4976390466, 0660103242, 1455891103, 3637919 #### [facility] (DEFAULT) [address] [place] [address] UA Protein Negative Normal NEGATIVE [facility] Comment on above: Performed By: #### 1 9642341, 70887253, 4430523, 3177173670, 95794630, 3525335, 2360345205, 6679906847, 8772615578, 0182526 #### [facility] (DEFAULT) [address] [place] [address] UA Spec Grav 1.015 Normal 1.001-1.035 [facility] Comment on above: Performed By: #### 1 4259774, 61938933, 0607822, 8619537874, 03456556, 4901502, 3510129647, 0237155247, 4565994908, 9002395 #### [facility] (DEFAULT) [address] [place] [address] UA Urobilinogen 0.2 mg/dL Normal 0.2-1.0 [facility] Comment on above: Performed By: #### 1 7366365, 02562069, 8114699, 2633574885, 06759830, 7510504, 7576525093, 5376141888, 5360633834, 9930216 #### [facility] (DEFAULT) [address] [place] [address] Urine Source Clean Catch [facility] Comment on above: Performed By: #### 1 1093181, 33488487, 9397375, 0039570756, 28464717, 2030069, 9128403853, 3464440371, 3673405814, 8699068 #### [facility] (DEFAULT) [address] [place] [address] US 1st Trimesteron 03-09-2022 US 1st Trimester [...] Sebastian Guzman 03/09/22 6:10 pm Technologist: PM [facility] US Transvaginalon [...] Guzman 03/09/22 6:10 pm Technologist: PM Normal [facility] hCG Quantitativeon hCG Quantitative 7.1 mIU/mL High 0.0-0.6 [facility] Comment on above: Result Comment: Post -Menopausal Reference Range is: 0.1-11.6 mIU/mL Performed By: #### 1 1664199, 91322719, 0248327, 9074299024, 64384495, 0145493, 4181604084, 4750922190, 4314722037, 5479650 #### [facility] (DEFAULT) [address] [place] [address] Vital Signs Date Time Vital Sign Value Performing Clinician Facility 12-13-2023 15:00-0500 Body mass index (BMI) [Ratio] 46.69 kg/m2 [facility] Nurse [facility] 12-13-2023 15:00-0500 Body weight 123.38 kg [facility] Nurse [facility] 12-13-2023 15:00-0500 Diastolic blood pressure 78 mm[Hg] [facility] Nurse [facility] 12-13-2023 15:00-0500 Systolic blood pressure 128 mm[Hg] [facility] Nurse [facility] 05-15-2023 18:30-0400 Body height 161.29 cm Linsey Witt Other [facility] 05-15-2023 18:30-0400 Body mass index (BMI) [Ratio] 43.41 kg/m2 Linsey Eduar Other [facility] Other 05-15-2023 18:30-0400 Body temperature 99.2 [degF] Linsey Witt Other [facility] Other 05-15-2023 18:30-0400 Body weight 112.95 kg Linsey Eduar Other [facility] Other 05-15-2023 18:30-0400 Respiratory rate 18 /min Linsey Witt Other [facility] Other 05-15-2023 18:30-0400 SaO2% (BldA) [Mass fraction] 99 % Linsey Witt Other [facility] Other 05-09-2023 11:00-0400 Body height 161.29 cm Gissel Santana Other [facility] Other 05-09-2023 11:00-0400 Body mass index (BMI) [Ratio] 43.59 kg/m2 Gissel Santana Other [facility] Other 05-09-2023 11:00-0400 Body weight 113.4 kg Gissel Santana Other [facility] Other 05-09-2023 11:00-0400 Diastolic blood pressure 83 mm[Hg] Gissel Santana Other [facility] Other 05-09-2023 11:00-0400 Systolic blood pressure 119 mm[Hg] Gissel Santana Other [facility] Other 04-12-2023 09:00-0400 Body height 161.29 cm Gissel Santana Other [facility] Other 04-12-2023 09:00-0400 Body mass index (BMI) [Ratio] 43.59 kg/m2 Gissel Santana Other [facility] Other 04-12-2023 09:00-0400 Body weight 113.4 kg Gissel Santana Other [facility] Other 04-12-2023 09:00-0400 Diastolic blood pressure 88 mm[Hg] Gissel Santana Other [facility] Other 04-12-2023 09:00-0400 Systolic blood pressure 129 mm[Hg] Gissel Santana Other [facility] Other 10-11-2022 02:06-0500 Body weight 111.[address] ESTELLA MIN . [facility] Comment on above: Performed By: #### AFPMAT #### [facility] [address] [place] [address] Dr. Alexsander Dickinson Encounters Encounter Date Encounter [...] 11-06-2023 End: 11-06-2023 ambulatory Gissel Santana Other [facility] Other Start: 11-06-2023 Encounter by donald Santana [facility] Start: 05-22-2023 End: 05-22-2023 ambulatory Olive Howard Other [facility] Other Start: 05-22-2023 Telephone encounter Olive Howard [facility] Start: 05-15-2023 End: 05-15-2023 ambulatory Linsey Witt Facility:[facility] Start: 05-15-2023 End: 05-15-2023 Departed Referred FABRICATION TECHNICIAN Linsey Witt Work Phone: [facility] [place] Work Phone: Start: 05-15-2023 End: 05-15-2023 ambulatory FABRICATION TECHNICIAN Linsey Witt Work Phone: [facility] Work Phone: Start: 05-15-2023 Office outpatient vi sit 25 minutes Linsey Witt [facility] Start: 05-09-2023 End: 05-09-2023 ambulatory Gissel Santana Other [facility] Other Start: 05-09-2023 Office outpatient vi sit 15 minutes Gissel Santana [facility] Start: 04-12-2023 End: 04-12-2023 ambulatory Gissel Santana Other [facility] Other Start: 04-12-2023 Encounter for genera l adult medical examination without abnormal findings Gissel Santana [facility] Start: 04-12-2023 Periodic preventive med est patient 18-39 yrs Gissel Santana [facility] Start: 02-15-[address] ESTELLA MIN [...] Facility:[facility] Start: 11-14-2022 End: 11-14-[address] ESETLLA MIN . Facility:[facility] Start: 11-14-2022 End: 11-15-2022 [...] encounter procedure 01/14/2024 8:30 AM EDT Routine [facility] [address] [place] [id number] Estella Min, DO [address] [place] [address] [facility] Start: 12-13-2023 End: 12-13-2024 ABO/Rh ABO/Rh Lab Routine Missed menses Expected: 12/13/2023 (Approximate), Expires: 12/13/2024 [facility] Comment on above: Expected: 12/13/2023 (Approximate), Expires: 12/13/2024 Start: 12-13-2023 End: 12-13-2024 Blood type and Indirect antibody screen panel - Blood Type and screen Lab Routine Missed menses Expected: 12/13/2023 (Approximate), Expires: 12/13/2024 [facility] Work Phone: Comment on above: Expected: 12/13/2023 (Approximate), Expires: 12/13/2024 Start: 12-13-2023 End: 12-13-2024 Thyroid panel with tsh Thyroid panel with tsh Lab Routine Missed menses Expected: 12/13/2023 (Approximate), Expires: 12/13/2024 [facility] Comment on above: Expected: 12/13/2023 (Approximate), Expires: 12/13/2024 Start: 12-13-2023 End: 12-13-2024 US Pelvis transvaginal US OB transvaginal Imaging Routine Missed menses Expected: 12/13/2023 (Approximate), Expires: 12/13/2024 [facility] Comment on above: Expected: 12/13/2023 (Approximate), Expires: 12/13/2024 Start: 05-15-2023 Throat culture Throat Culture [facility] Bacteria identified in Urine by [...] Payer Category Payer Unknown BCBS BCBS xxxxxx [id number] 2020-Present [phone] [address] [place] [address] [id number]. [id number] 1994 Unknown [id number] 2.16.840.1.550404.3.579.2.593 1994 Unknown [id number] 2.16.840.1.085117.3.579.2.593 1994 Unknown [id number] 2.16.840.1.199490.3.579.2.593 1994 Unknown [id number] 2.16.840.1.509671.3.579.2.593 1994 Unknown [id number] 2.16.840.1.234534.3.579.2.593 1994 Unknown [id number] 2.16.840.1.314341.3.579.2.593 1994 Unknown [id number] 2.16.840.1.640697.3.579.2.593 1994 Unknown [id number] 2.16.840.1.055285.3.579.2.593 1994 Unknown [id number] 2.16.840.1.925780.3.579.2.593 1994 Unknown [id number] 2.16.840.1.817260.3.579.2.593 1994 Unknown [id number] 2.16.840.1.557732.3.579.2.593 1994 Unknown [id number] 2.16.840.1.309005.3.579.2.593 1994 Unknown [id number] 2.16.840.1.228383.3.579.2.593 1994 Unknown [id number] 2.16.840.1.447013.3.579.2.593 1994 Unknown [id number] 2.16.840.1.458850.3.579.2.593 1994 Unknown [id number] 2.16.840.1.344538.3.579.2.593 1994 Unknown [id number] 2.16.840.1.446180.3.579.2.593 1994 Unknown [id number] 2.16.840.1.323739.3.579.2.593 1994 Unknown [id number] 2.16.840.1.694002.3.579.2.593 1994 Unknown [id number] 2.16.840.1.792290.3.579.2.593 1994 Unknown [id number] 2.16.840.1.890823.3.579.2.593 1994 Unknown [id number] 2.16.840.1.066558.3.579.2.593 1994 Unknown [id number] 2.16.840.1.922171.3.579.2.593 1994 Unknown [id number] 2.16.840.1.702261.3.579.2.593 1994 Unknown [id number] 2.16.840.1.668271.3.579.2.1259 1994 Unknown [id number] 2.16.840.1.473923.3.579.2.1259 1994 Unknown [id number] 2.16.840.1.983809.3.579.2.1259 1994 Unknown [id number] 2.16.840.1.341264.3.579.2.1259 1994 Unknown [id number] 2.16.840.1.294749.3.579.2.1259 1994 Unknown [id number] 2.16.840.1.591999.3.579.2.1259 1994 Unknown [id number] 2.16.840.1.153829.3.579.2.1259 1959 Self-pay 1959 Unknown [id number] Unknown [id number] 2.16.840.1.248873.3.579.2.593 Unknown [id number] 2.16.840.1.978659.3.579.2.531 Social History Date Type Detail Facility Unknown if ever smoked [facility] [email or web address] Other Start: 03-12-2023 Sex Assigned At N [facility] [email or web address] Other Start: 1995 Sex Assigned At Female F [facility] Start: 03-12-2023 Tobacco smoking status NHIS Never [...] or undercooked meat, and stay away from [facility]. Patient has also been advised to [...] understanding and is agreeable to treatment plan. [facility] Other 07-12-2023 Evaluation note* Encounter Date Diagnosis Assessment Notes Treatment Notes Treatment Clinical Notes Apr, Anxiety disorder, unspecified (ICD-10 - F41.9) Pt states that she, and her , agree that she is doing better on the medication. Continues to have stress, but is dealing more appropriately. Would like to continue this med and this dose. f/u6 months, sooner if needed. [facility] Other 06-15-2023 Evaluation note* Encounter Date Diagnosis [...] help for overwhelm. followup in 1 month [facility] Other 05-12-2022 NoteEducation Materials Cardiovascular Hypertension, Adult [...] without skin, beans, e (more content not included)...[facility] noteNo assessment information availableSumma Health Work Phone: Evaluation noteNo InformationNortSt. Mary Rehabilitation Hospital [email or web address] Other Evaluation note* Diagnosis Missed menses documented in this encounter [facility] HealthcareHistory general Narrative - Reported* Type Description Date Surgical History C-sect 2019 Surgical History C-sect 2022 [facility] Other History general Narrative - Reported* Type Description Date Medical History Anxiety disorder, unspecified Surgical History C-sect 2019 Surgical History C-sect 2022 Hospitalization History SEE SURGICAL [facility] Other History general Narrative - Reported* Type Description Date Medical History Anxiety disorder, unspecified Medical History Gestational diabetes Surgical History C-sect 2019 Surgical History C-sect 2022 Hospitalization History SEE SURGICAL [facility] Other Summary Purpose Family History No Family History Records FoundNo Family History Records FoundNo Family History Records FoundNo Family History Records Found Advance Directives No Advanced Directives Records FoundNo Advanced Directives Records FoundNo Advanced Directives Records FoundNo Advanced Directives Records Found Additional Source Comments INFORMATION SOURCE (unrecogn ized section and content) DATE CREATED AUTHOR 03/18/2022 [facility] DATE CREATED AUTHOR AUTHOR'S ORGANIZ ATION [facility] DATE CREATED AUTHOR AUTHOR'S ORGANIZ ATION 05/24/2023 [facility] DATE CREATED AUTHOR AUTHOR'S ORGANIZ ATION 05/21/2024 [facility] EPIC REASON FOR VISIT (unrecogniz ed section and content) Reason Comments Amenorrhea Care Teams (unrecognized sec tion and content) Team Status: Inactive Member Role Status Dates Linsey Witt APRN Attending Provider Active Project Manager Process Development Relationship Specialty Start Date End Date Gissel Santana MD [address] [place] [address] PCP - General Family Medicine [...] BE BASED ON THE PRIMARY CLINICAL RECORDS. [facility]. provides no warranty or guarantee of the accuracy or completeness of information in this document.
[2024-06-07 11:04] VITALS: BP 136/73; PULSE 86
== END 2024-06-07 11:30 | disposition home or self-care (01) ==
LOC: FBCO 06:49 → FBC 10:58
PROVIDERS: Visit Provider Obstetrics & Gynecology
DX: O24.419 Gestational diabetes mellitus in pregnancy, unspecified control (principal)
CPT/HCPCS: 59025

== ENCOUNTER 2024-06-11 06:59 | Outpatient (OUT) | payer BC, SELFPAY ==
--- OUTSIDE RECORDS SUMMARY | 2024-06-11 07:02 | XMS_ITS | CCD ---
Author Organization [facility] [place] Care Team Providers Care Flask Pusher Name Role Phone MECHELLE ., DR SORIA [...] Unavailable MECHELLE ., DR SORIA Admitting Unavailable [place], Sebastian Consulting Unavailable SANTANA, DR GISSEL Teresa [...] Unavailable Gissel Santana MD Primary Care Provider [phone] ESTELLA MIN Attending Unavailable ESTELLA MIN Attending Unavailable JULITA NEW Attending Unavailable ESTELLA MIN Attending Unavailable ESTELLA MIN Attending Unavailable JULITA NEW Attending Unavailable ESTELLA MIN Attending Unavailable Medications [...] Interpretation and review of laboratory results Abnormal [facility] Health[facility] re Preg Test, Ur Positive [facility] Urinalysis macro (dipstick) panel (U)on 12-13-2023 Bilirubin, UA Negative Negative - 4(70) +++ mg/dL [facility] Blood, UA Negative Negative - 50 Sal/mcL [facility] Clarity, UA Clear [facility] Healthia re Color, UA Yellow [facility] Glucose, UA Negative Negative - 1999(110) ++++ mg/dL [facility] Interpretation and review of laboratory results Abnormal [facility] re Ketones, UA Positive Negative - 160(16) ++++ mg/dL [facility] Leukocytes, UA Negative Negative - 500+++ Lizzy/mcL [facility] Nitrite, UA Negative Negative - Positive [facility] pH, UA 7.0 5 - [address] [facility] Protein, UA Positive Negative - 1999(20) ++++ mg/dL [facility] Spec Grav, UA 1.030 1 - 1.03 [facility] Urobilinogen, UA 0.2 0.2 - 12 mg/dL [facility] Quick Strepon 05-15-2023 S. pyogenes Org specific cx Ql (Throat) Negative [employer] Other Quick Strep [employer] Other Throat Cultureon 05-15-2023 Throat culture Heavy Normal Respiratory John 2 Days PERFORMED BY: [address] [id number] [address] [place] [address] PATHOLOGIST PRODUCTION RECORDER ARACELI HAYWOOD M.D. Normal Comment on above: Performed By: #### C UT #### [facility] [address] GROUP B STREP CULTUREon 01-27 S. [...] S F Tetracycline <=0.25 S F Normal [facility] [place] Comment on above: Performed By: #### A FPMAT #### [facility] [address] [place] [address] Dr. Alexsander Dickinson CBC AUTO DIFFon 02-02-2023 BASO # 0.0 103/ul Normal 0.0-0.1 [facility] [place] Comment on above: Performed By: #### C BC #### [facility] [address] [place] [address] Dr. Alexsander Dickinson Basophils/100 WBC (Bld) 0.2 % Normal 0.2-2.0 [facility] [place] Comment on above: Performed By: #### C BC #### [facility] [address] [place] [address] Dr. Alexsander Dickinson EO # 0.0 103/ul Normal 0.0-0.7 [facility] [place] Comment on above: Performed By: #### C BC #### [facility] [address] [place] [address] Dr. Alexsander Dickinson Eosinophils/100 WBC (Bld) 0.0 % Critically low 0.9-7.0 [facility] [place] Comment on above: Performed By: #### C BC #### [facility] [address] [place] [address] Dr. Alexsander Dickinson Erythrocyte distribution width (RBC) [Ratio] 12.5 % Normal 11.0-15.0 [facility] [place] Comment on above: Performed By: #### C BC #### [facility] [address] [address] [address] Alexsander Dickinson Hematocrit (Bld) [Volume fraction] 32.9 % Critically low 36.0-48.0 [facility] [place] Comment on above: Performed By: #### C BC #### [facility] [address] [address] [address] Alexsander Dickinson Hemoglobin (Bld) [Mass/Vol] 10.7 g/dL Critically low 12.0-16.0 [facility] [place] Comment on above: Performed By: #### C BC #### [facility] [address] [address] [address] Alexsander Dickinson IG # 0.12 10e3/ul Critically high 0.00-0.03 [facility] Comment on above: Performed By: #### C BC #### [facility] [address] [address] [address] Alexsander Dickinson IG % 0.7 % Critically high 0.0-0.5 [facility] Comment on above: Performed By: #### C BC #### [facility] [address] [address] [address] Alexsander Dickinson LYMPH # 1.1 103/ul Critically low 1.2-3.8 [facility] Comment on above: Performed By: #### C BC #### [facility] [address] [address] [address] Alexsander Dickinson Lymphocytes/100 WBC (Bld) 6.4 % Critically low 20.5-60.0 [facility] [place] Comment on above: Performed By: #### C BC #### [facility] [address] [address] [address] Alexsander Dickinson MANUAL DIFF REQ NO Normal [facility] Comment on above: Performed By: #### C BC #### [facility] [address] [address] [address] Alexsander Dickinson MCH (RBC) [Entitic mass] 26.1 pg Critically low 26.7-34.0 [facility] [place] Comment on above: Performed By: #### C BC #### [facility] [address] [address] [address] Alexsander Dickinson MCHC (RBC) [Mass/Vol] 32.5 g/dL Normal 29.9-35.2 [facility] [place] Comment on above: Performed By: #### C BC #### [facility] [address] [address] [address] Alexsander Dickinson MCV (RBC) [Entitic vol] 80.2 fL Critically low 81.0-99.0 [facility] [place] Comment on above: Performed By: #### C BC #### [facility] [address] [place] [address] Dr. Alexsander Dickinson MONO # 0.4 103/ul Normal 0.3-0.8 [facility] [place] Comment on above: Performed By: #### C BC #### [facility] [address] [place] [address] Dr. Alexsander Dickinson Monocytes/100 WBC (Bld) 2.1 % Normal 1.7-12.0 [facility] [place] Comment on above: Performed By: #### C BC #### [facility] [address] [place] [address] Dr. Alexsander Dickinson NEUT # 15.5 103/ul Critically high 1.4-6.5 [facility] Comment on above: Performed By: #### C BC #### [facility] [address] [place] [address] Dr. Alexsander Dickinson Neutrophils/100 WBC (Bld) 90.6 % Critically high 43.0-75.0 [facility] [place] Comment on above: Performed By: #### C BC #### [facility] [address] [place] [address] Dr. Alexsander Dickinson Platelet mean volume (Bld) [Entitic vol] 10.7 fL Normal 9.5-13.5 [facility] Comment on above: Performed By: #### C BC #### [facility] [address] [place] [address] Dr. Alexsander Dickinson PLT 310 103/ul Normal 150-450 [facility] Comment on above: Performed By: #### C BC #### [facility] [address] [place] [address] Dr. Alexsander Dickinson RBC 4.10 106/ul Critically low 4.20-5.40 [facility] Comment on above: Performed By: #### C BC #### [facility] [address] [place] [address] Dr. Alexsander Dickinson WBC 17.1 103/ul Critically high 4.0-11.0 [facility] Comment on above: Performed By: #### C BC #### [facility] [address] [place] [address] Dr. Alexsander Dickinson CBC AUTO DIFFon 02-01-2023 BASO # 0.0 103/ul Normal 0.0-0.1 [facility] [place] Comment on above: Performed By: #### A 1C #### [facility] [address] [place] [address] Dr. Alexsander Dickinson Basophils/100 WBC (Bld) 0.2 % Normal 0.2-2.0 [facility] [place] Comment on above: Performed By: #### A 1C #### [facility] [address] [place] [address] Dr. Alexsander Dickinson EO # 0.0 103/ul Normal 0.0-0.7 [facility] [place] Comment on above: Performed By: #### A 1C #### [facility] [address] [place] [address] Dr. Alexsander Dickinson Eosinophils/100 WBC (Bld) 0.4 % Critically low 0.9-7.0 [facility] [place] Comment on above: Performed By: #### A 1C #### [facility] [address] [place] [address] Dr. Alexsander Dickinson Erythrocyte distribution width (RBC) [Ratio] 12.9 % Normal 11.0-15.0 [facility] [place] Comment on above: Performed By: #### A 1C #### [facility] [address] [place] [address] Dr. Alexsander Dickinson Hematocrit (Bld) [Volume fraction] 34.2 % Critically low 36.0-48.0 [facility] [place] Comment on above: Performed By: #### A 1C #### [facility] [address] [place] [address] Dr. Alexsander Dickinson Hemoglobin (Bld) [Mass/Vol] 11.4 g/dL Critically low 12.0-16.0 [facility] [place] Comment on above: Performed By: #### A 1C #### [facility] [address] [place] [address] Dr. Alexsander Dickinson IG # 0.04 10e3/ul Critically high 0.00-0.03 [facility] Comment on above: Performed By: #### A 1C #### [facility] [address] [place] [address] Dr. Alexsanedr Dickinson IG % 0.5 % Normal 0.0-0.5 [facility] [place] Comment on above: Performed By: #### A 1C #### [facility] [address] [place] [address] Dr. Alexsander Dickinson LYMPH # 2.1 103/ul Normal 1.2-3.8 [facility] [place] Comment on above: Performed By: #### A 1C #### [facility] [address] [place] [address] Dr. Alexsander Dickinson Lymphocytes/100 WBC (Bld) 23.9 % Normal 20.5-60.0 [facility] [place] Comment on above: Performed By: #### A 1C #### [facility] [address] [place] [address] Dr. Alexsander Dickinson MANUAL DIFF REQ NO Normal [facility] Comment on above: Performed By: #### A 1C #### [facility] [address] [place] [address] Dr. Alexsander Dickinson MCH (RBC) [Entitic mass] 27.0 pg Normal 26.7-34.0 [facility] [place] Comment on above: Performed By: #### A 1C #### [facility] [address] [place] [address] Dr. Alexsander Dickinson MCHC (RBC) [Mass/Vol] 33.3 g/dL Normal 29.9-35.2 [facility] Comment on above: Performed By: #### A 1C #### [facility] [address] [address] [address] Alexsander Dickinson MCV (RBC) [Entitic vol] 81.0 fL Normal 81.0-99.0 [facility] [place] Comment on above: Performed By: #### A 1C #### [facility] [address] [address] [address] Alexsander Dickinson MONO # 0.5 103/ul Normal 0.3-0.8 [facility] [place] Comment on above: Performed By: #### A 1C #### [facility] [address] [place] [address] Dr. Alexsander Dickinson Monocytes/100 WBC (Bld) 6.0 % Normal 1.7-12.0 [facility] [place] Comment on above: Performed By: #### A 1C #### [facility] [address] [place] [address] Dr. Alexsander Dickinson NEUT # 5.9 103/ul Normal 1.4-6.5 [facility] [place] Comment on above: Performed By: #### A 1C #### [facility] [address] [place] [address] Dr. Alexsander Dickinson Neutrophils/100 WBC (Bld) 69.0 % Normal 43.0-75.0 [facility] [place] Comment on above: Performed By: #### A 1C #### [facility] [address] [place] [address] Dr. Alexsander Dickinson Platelet mean volume (Bld) [Entitic vol] 10.5 fL Normal 9.5-13.5 [facility] Comment on above: Performed By: #### A 1C #### [facility] [address] [place] [address] Dr. Alexsander Dickinson PLT 275 103/ul Normal 150-450 [facility] Comment on above: Performed By: #### A 1C #### [facility] [address] [place] [address] Dr. Alexsander Dickinson RBC 4.22 106/ul Normal 4.20-5.40 [facility] Comment on above: Performed By: #### A 1C #### [facility] [address] [place] [address] Dr. Alexsander Dickinson WBC 8.6 103/ul Normal 4.0-11.0 [facility] [place] Comment on above: Performed By: #### A 1C #### [facility] [address] [place] [address] Dr. Alexsander Dickinson LDHon 02-01-2023 LDH 124 U/L Normal 81-234 [facility] [place] Comment on above: Performed By: #### C MP, LDH, URIC #### [facility] [address] [place] [address] Dr. Alexsander Dickinson POINT OF CARE GLUCOSEon Glucose [Mass/Vol] 98 mg/dL Normal 74-106 [facility] Comment on above: Performed By: #### A 1C #### [facility] [address] [place] [address] Dr. Alexsander Dickinson PROF 14(COMP METB)on 023 Albumin [Mass/Vol] 2.5 g/dL Critically low 3.4-5.0 [facility] Comment on above: Performed By: #### C MP, LDH, URIC #### [facility] [address] [place] [address] Dr. Alexsander Dickinson Albumin/Globulin [Mass ratio] 0.6 {ratio} Normal [facility] [place] Comment on above: Performed By: #### C MP, LDH, URIC #### [facility] [address] [place] [address] Dr. Alexsander Dickinson ALP [Catalytic activity/Vol] 138 U/L Critically high 46-116 [facility] [place] Comment on above: Performed By: #### C MP, LDH, URIC #### [facility] [address] [place] [address] Dr. Alexsander Dickinson ALT [Catalytic activity/Vol] 15 U/L Normal 14-59 [facility] [place] Comment on above: Performed By: #### C MP, LDH, URIC #### [facility] [address] [place] [address] Dr. Alexsander Dickinson Anion gap [Moles/Vol] 14.5 mmol/L Normal [facility] [place] Comment on above: Performed By: #### C MP, LDH, URIC #### [facility] [address] [address] [address] Alexsander Dickinson AST [Catalytic activity/Vol] 8 U/L Critically low 15-37 [facility] [place] Comment on above: Performed By: #### C MP, LDH, URIC #### [facility] [address] [address] [address] Alexsander Dickinson Bilirubin [Mass/Vol] 0.2 mg/dL Normal 0.2-1.0 [facility] [place] Comment on above: Performed By: #### C MP, LDH, URIC #### [facility] [address] [address] [address] Alexsander Dickinson Calcium [Mass/Vol] 8.6 mg/dL Normal 8.5-10.1 [facility] Comment on above: Performed By: #### C MP, LDH, URIC #### [facility] [address] [place] [address] Dr. Alexsander Dickinson Chloride [Moles/Vol] 103 mmol/L Normal 98-107 [facility] [place] Comment on above: Performed By: #### C MP, LDH, URIC #### [facility] [address] [address] [address] Alexsander Dickinson CO2 [Moles/Vol] 23.7 mmol/L Normal 21.0-32.0 [facility] Comment on above: Performed By: #### C MP, LDH, URIC #### [facility] [address] [address] [address] Alexsander Dickinson Creatinine [Mass/Vol] 0.61 mg/dL Normal 0.55-1.02 [facility] [place] Comment on above: Performed By: #### C MP, LDH, URIC #### [facility] [address] [address] [address] Alexsander Dickinson EGFR-AF VIET[place]ESE >60 Normal >=60 [facility] Comment on above: Performed By: #### C MP, LDH, URIC #### [facility] [address] [place] [address] Dr. Alexsander Dickinson EGFR-NON AF VIET[place]ESE >60 Normal >=60 [facility] [place] Comment on above: Performed By: #### C MP, LDH, URIC #### [facility] [address] [address] [address] Alexsander Dickinson Globulin (S) [Mass/Vol] 4.1 g/dL Normal [facility] [place] Comment on above: Performed By: #### C MP, LDH, URIC #### [facility] [address] [address] [address] Alexsander Dickinson Glucose [Mass/Vol] 123 mg/dL Critically high 74-106 [facility] Comment on above: Performed By: #### C MP, LDH, URIC #### [facility] [address] [place] [address] Dr. Alexsander Dickinson Potassium [Moles/Vol] 4.2 mmol/L Normal 3.5-5.1 [facility] [place] Comment on above: Performed By: #### C MP, LDH, URIC #### [facility] [address] [place] [address] Dr. Alexsander Dickinson Protein [Mass/Vol] 6.6 g/dL Normal 6.4-8.2 [facility] Comment on above: Performed By: #### C MP, LDH, URIC #### [facility] [address] [place] [address] Dr. Alexsander Dickinson Sodium [Moles/Vol] 137 mmol/L Normal 136-145 [facility] Comment on above: Performed By: #### C MP, LDH, URIC #### [facility] [address] [place] [address] Dr. Alexsander Dickinson Urea nitrogen [Mass/Vol] 5.0 mg/dL Critically low 7.0-18.0 [facility] [place] Comment on above: Performed By: #### C MP, LDH, URIC #### [facility] [address] [place] [address] Dr. Alexsander Dickinson Urea nitrogen/Creatinine [Mass ratio] 8.2 mg/mg Normal [facility] [place] Comment on above: Performed By: #### C MP, LDH, URIC #### [facility] [address] [place] [address] Dr. Alexsander Dickinson PROTIMEon 02-01-2023 INR Coag (PPP) [Relative time] {INR} Normal [facility] Comment on above: Performed By: #### H BSANS #### [facility] [address] [place] [address] Dr. Alexsander Dickinson INR GUIDELINES SEE BELOW Normal [facility] Comment on above: Result Comment: CAROLEE RED INR: 2.0 - 3.0 CONDITIONS NOT LISTED BELOW 2.5 - 3.5 FOR PROSTHETIC HEART VALVE REPLACEMENT 2.5 - 3.5 RECURRENT THROMBOSIS Performed By: #### H BSANS #### [facility] [address] [place] [address] Dr. Alexsander Dickinson PT Coag (PPP) [Time] 9.2 s Normal 9.0-11.6 [facility] [place] Comment on above: Performed By: #### H BSANS #### [facility] [address] [place] [address] Dr. Alexsander Dickinson PTTon 02-01-2023 aPTT Coag (Bld) [Time] 25.9 s Normal 22.3-36.2 [facility] [place] Comment on above: Performed By: #### H BSANS #### [facility] [address] [place] [address] Dr. Alexsander Dickinson TYPE AND SCREENon 02-01-2023 TYPE AND SCREEN Negative Normal [facility] Comment on above: Performed By: #### A FPMAT #### [facility] [address] [place] [address] Dr. Alexsander Dickinson URIC ACID SERUMon 02-01-2023 Urate [Mass/Vol] 5.5 mg/dL Normal 2.6-6.0 [facility] Comment on above: Performed By: #### C MP, LDH, URIC #### [facility] [address] [place] [address] Dr. Alexsander Dickinson US PREG BIOPHY W [...] by: DEE GALLEGOS Date: 2023-02-01 15:04 Normal [facility] [place] US PREG BIOPHY W NON STRESSo n [...] by: SEBASTIAN HENRY Date: 2023-01-25 15:18 Normal [facility] [place] US PREG BIOPHY W NON STRESSo n [...] by: DEE GALLEGOS Date: 2023-01-19 06:16 Normal [facility] [place] US PREG BIOPHY W NON STRESSo n [...] DEE GALLEGOS Date: 2023-01-11 15:38 Normal [facility] US PREG GROWTHon 01-11-2023 US PREG [...] DEE GALLEGOS Date: 2023-01-11 16:42 Normal [facility] GTT 3 HR PREGon 12-01-2022 Glucose [Mass/Vol] 104 mg/dL Normal 74-[address] [facility] Comment on above: Performed By: #### A 1C #### [facility] [address] [address] [address] Alexsander Dickinson Glucose [Mass/Vol] 182 mg/dL Normal [facility] Comment on above: Performed By: #### A 1C #### [facility] [address] [address] [address] Alexsander Dickinson Glucose [Mass/Vol] 114 mg/dL Normal [facility] Comment on above: Performed By: #### A 1C #### [facility] [address] [address] [address] Alexsander Dickinson Glucose [Mass/Vol] 73 mg/dL Normal [facility] Comment on above: Performed By: #### A 1C #### [facility] [address] [place] [address] Dr. Alexsander Dickinson PAP ACOG PANEL 2: 20 to 28on 11-18-2022 . . Normal [facility] [place] Comment on above: Performed By: #### A 1C #### [facility] [address] [place] [address] Dr. Alexsander Dickinson Age Gdln ACOG Testing 21-29 [facility] Comment on above: Performed By: #### A 1C #### [facility] [address] [place] [address] Dr. Alexsander Dickinson DIAGNOSIS: Comment [facility] Comment on above: Result Comment: NEGA TIVE FOR INTRAEPITHELIAL LESION OR MALIGNANCY. Performed By: #### A 1C #### [facility] [address] [place] [address] Dr. Alexsander Dickinson Methodology: Comment [facility] Comment on above: Result Comment: This liquid based ThinPrep(R) pap test was screened with the use of an image guided system. Performed By: #### A 1C #### [facility] [address] [place] [address] Dr. Alexsander Dickinson Note: Comment [facility] Comment on above: Result Comment: The Pap smear is a screening test designed to aid in the detection of premalignant and malignant conditions of the uterine cervix. It is not a diagnostic procedure and should not be used as the sole means of detecting cervical cancer. Both false-positive and false-negative reports do occur. . Performed By: #### A 1C #### [facility] [address] [place] [address] Dr. Alexsander Dickinson Performed by: Comment [facility] Comment on above: Result Comment: Cici Clarke, Clerk Specialist (ASCP) Performed By: #### A 1C #### [facility] [address] [place] [address] Dr. Alexsander Dickinson Reflex Criteria: Comment [facility] Comment on above: Result Comment: The HPV DNA reflex criteria were not met with this specimen result therefore, no HPV testing was performed. . Performed By: #### A 1C #### [facility] [address] [place] [address] Dr. Alexsander Dickinson Specimen adequacy: Comment Normal [facility] Comment on above: Result Comment: Sati sfactory for evaluation. No endocervical component is identified. Performed By: #### A 1C #### [facility] [address] [place] [address] Dr. Alexsander Dickinson CHLAMYDIA/GONOCOCCUS ZUNILDA (SW AB/URINE/PAPon 11-17-2022 Chlamydia trachomatis, ZUNILDA Negative Normal Negative [facility] [place] Comment on above: Performed By: #### A 1C #### [facility] [address] [place] [address] Dr. Alexsander Dickinson Neisseria gonorrhoeae, ZUNILDA Negative Normal Negative [facility] Comment on above: Performed By: #### A 1C #### [facility] [address] [place] [address] Dr. Alexsander Dickinson VAGINITIS/VAGINOSIS DNA PROB Jose De Jesus 11-16-2022 Reema species Negative Normal Negative [facility] Comment on above: Performed By: #### V AGINT #### [facility] [address] [place] [address] Dr. Alexsander Dickinson Gardnerella vaginalis Negative Normal Negative [facility] Comment on above: Performed By: #### V AGINT #### [facility] [address] [place] [address] Dr. Alexsander Dickinson Trichomonas vaginalis Negative Normal Negative [facility] Comment on above: Performed By: #### V AGINT #### [facility] [address] [place] [address] Dr. Alexsander Dickinson US PREG INCOMPLETE ANATOMYon 11-14-2022 US PREG INCOMPLETE ANATOMY EXAMINATION: US PREG INCOMPLETE ANATOMY HISTORY: screening COMPARISON: No relevant comparison available. FINDINGS: Heart rate: 150 bpm position: Variable Anatomy: 4.8 x 5.8 mm choroid plexus cyst is again identified IMPRESSION: Stable choroid plexus cyst Electronically authenticated by: SEBASTIAN HENRY Date: 2022-11-14 16:19 Normal [facility] FREE T4on 10-19-2022 Free T4 [Mass/Vol] 0.89 ng/dL Normal 0.76-1.46 [facility] Comment on above: Performed By: #### H BSANS #### [facility] [address], [place] [address] Dr. Alexsander Dickinson TSHon 10-19-2022 TSH 1.303 uIU/mL Normal 0.358-3.740 [facility] Comment on above: Performed By: #### H BSANS #### [facility] [address], [place] [address] Dr. Alexsander Dickinson US PREG ANATOMY SINGLEon [...] DEE GALLEGOS Date: 2022-10-17 20:42 Normal [facility] AFP MATERNAL FOR SPINA BIFID Aon 10-11-2022 AFP MoM 1.49 Normal [facility] Comment on above: Performed By: #### A FPMAT #### [facility] [address] [address] [address] Alexsander Dickinson AFP Value 60.8 ng/mL Normal [facility] [place] Comment on above: Performed By: #### A FPMAT #### [facility] [address] [address] [address] Alexsander Dickinson AFP, Serum for Spina Bifida Report Normal [facility] Comment on above: Performed By: #### A FPMAT #### [facility] [address] [address] [address] Alexsander Dickinson Comment Comment Normal [facility] Comment on above: Result Comment: Niurka Patricia, Ph.D., [facility] Director . References: Available Upon Request. . Multiples Of Median Cutoffs For AFP Elevations Fonseca 2.5 Black 2.8 IDD 2.0 Twins 4.5 Abbreviation Definitions IDD - Insulin Dep Diabetes OSBR - Open Spina Bifida Risk . For further inquiries contact [facility] at [phone]. . This test was developed and its performance characteristics determined by [employer]. It has not been cleared or approved by the Food and Drug Administration. Performed By: #### A FPMAT #### [facility] [address] [place] [address] Dr. Alexsander Tiwari Age Collection Date 19.4 weeks Normal [facility] Comment on above: Performed By: #### A FPMAT #### [facility] [address] [address] [address] Alexsander Dickinson Gestat, Age Based on NILE Normal [facility] Comment on above: Result Comment: 02/2023 Recalculations are not recommended when gestational dating by LMP and ultrasound are within 10 days. Performed By: #### A FPMAT #### [facility] [address] [place] [address] Dr. Alexsander Dickinson Insulin Dep Diabetes No Normal [facility] Comment on above: Performed By: #### A FPMAT #### [facility] [address] [place] [address] Dr. Alexsander Dickinson Interpretation Comment Normal [facility] Comment on [...] Customer Services to discuss available options. The [employer] recommends amniocentesis be offered to women age 35 and older. Performed By: #### A FPMAT #### [facility] [address] [place] [address] Dr. Alexsander Dickinson [age] Normal [facility] Comment on above: Performed By: #### A FPMAT #### [facility] [address] [place] [address] Dr. Alexsander Dickinson Multiple Gestation No Normal [facility] Comment on above: Performed By: #### A FPMAT #### [facility] [address] [place] [address] Dr. Alexsander Dickinson OSBR Risk 1 [place] 2809 Normal [facility] Comment on above: Performed By: #### A FPMAT #### [facility] [address] [place] [address] Dr. Alexsander Dickinson PDF . Normal [facility] Comment on above: Performed By: #### A FPMAT #### [facility] [address] [place] [address] Dr. Alexsander Dickinson Race Normal [facility] Comment on above: Performed By: #### A FPMAT #### [facility] [address] [place] [address] Dr. Alexsander Dickinson Test Results: Negative Normal [facility] Comment on above: Performed By: #### A FPMAT #### [facility] [address] [place] [address] Dr. Alexsander Dickinson GTT 3 HR PREGon 09-29-2022 Glucose [Mass/Vol] 99 mg/dL Normal 74-106 [facility] Comment on above: Performed By: #### A FPMAT #### [facility] [address] [place] [address] Dr. Alexsander Dickinson Glucose [Mass/Vol] 173 mg/dL Normal [facility] Comment on above: Performed By: #### A FPMAT #### [facility] [address] [place] [address] Dr. Alexsander Dickinson Glucose [Mass/Vol] 151 mg/dL Normal [facility] Comment on above: Performed By: #### A FPMAT #### [facility] [address] [place] [address] Dr. Alexsander Dickinson Glucose [Mass/Vol] 76 mg/dL Normal [facility] Comment on above: Performed By: #### A FPMAT #### [facility] [address] [place] [address] Dr. Alexsander Dickinson GLUCOSE - 1HRon 09-20-2022 Glucose [Mass/Vol] 159 mg/dL Critically high 74-106 T [facility] Comment on above: Performed By: #### H BSANS #### [facility] [address] [place] [address] Dr. Alexsander Dickinson HEP B SURFACE ANTIGEN SCREEN on 08-17-2022 HBsAg Screen Negative Normal Negative [facility] Comment on above: Performed By: #### H BSANS #### [facility] [address] [place] [address] Dr. Alexsander Dickinson HEPATITIS C VIRUS AB W/ REFL EX QUANTon 08-17-2022 HCV AB <0.1 Normal 0.0-0.9 [facility] [place] Comment on above: Performed By: #### A 1C #### [facility] [address] [place] [address] Dr. Alexsander Dickinson Interpretation: Comment Normal [facility] Comment on above: Result Comment: Nega tive Not infected with HCV, unless recent infection is suspected or other evidence exists to indicate HCV infection. Performed By: #### A 1C #### [facility] [address] [place] [address] Dr. Alexsander Dickinson HIV 1 AND 2 WITH REFLEXon HIV Screen 4th Generation wRfx Non-Reactive Normal Non Reactive [facility] Comment on above: Result Comment: HIV Negative HIV-1/HIV-2 antibodies and HIV-1 p24 antigen were NOT detected. There is no laboratory evidence of HIV infection. Performed By: #### H IV12 #### [facility] [address] [address] [address] Alexsander Dickinson RPR QUANTon 08-17-2022 Rapid Plasma Reagin, Quant Non-Reactive Normal NonRea<1:1 [facility] Comment on above: Result Comment: Plea se Note: This test does not meet current guidelines for screening and diagnosis of syphilis. This test is intended for following treatment response in patients being treated for syphilis infection. To screen for syphilis infection, a reflex cascade that includes both RPR and a treponema-specific assay should be utilized, such as Treponema pallidum (Syphilis) Screening Alda (866667) or Rapid Plasma Reagin (RPR) Test With Reflex to Quantitative RPR and Confirmatory Treponema pallidum Antibodies (854540). Performed By: #### H BSANS #### [facility] [address] [place] [address] Dr. Alexsander Dickinson RUBELLA AB IGGon 08-17-2022 Rubella Antibodies, IgG 11.90 index Normal Immune >0.99 [facility] Comment on above: Result Comment: Non- immune <0.90 Equivocal 0.90 - 0.99 Immune >0.99 Performed By: #### H BSANS #### [facility] [address] [place] [address] Dr. Alexsander Dickinson CBC AUTO DIFFon 08-16-2022 BASO # 0.1 103/ul Normal 0.0-0.1 [facility] Comment on above: Performed By: #### H BSANS #### [facility] [address] [place] [address] Dr. Alexsander Dickinson Basophils/100 WBC (Bld) 0.6 % Normal 0.2-2.0 [facility] Comment on above: Performed By: #### H BSANS #### [facility] [address] [place] [address] Dr. Alexsander Dickinson EO # 0.1 103/ul Normal 0.0-0.7 [facility] Comment on above: Performed By: #### H BSANS #### [facility] [address] [place] [address] Dr. Alexsander Dickinson Eosinophils/100 WBC (Bld) 0.9 % Normal 0.9-7.0 [facility] Comment on above: Performed By: #### H BSANS #### [facility] [address] [place] [address] Dr. Alexsander Dickinson Erythrocyte distribution width (RBC) [Ratio] 12.9 % Normal 11.0-15.0 [facility] Comment on above: Performed By: #### H BSANS #### [facility] [address] [place] [address] Dr. Alexsander Dickinson Hematocrit (Bld) [Volume fraction] 39.0 % Normal 36.0-48.0 [facility] Comment on above: Performed By: #### H BSANS #### [facility] [address] [place] [address] Dr. Alexsander Dickinson Hemoglobin (Bld) [Mass/Vol] 12.9 g/dL Normal 12.0-16.0 [facility] Comment on above: Performed By: #### H BSANS #### [facility] [address] [place] [address] Dr. Alexsander Dickinson IG # 0.04 10e3/ul Critically high 0.00-0.03 [facility] Comment on above: Performed By: #### H BSANS #### [facility] [address] [place] [address] Dr. Alexsander Dickinson IG % 0.4 % Normal 0.0-0.5 [facility] Comment on above: Performed By: #### H BSANS #### [facility] [address] [place] [address] Dr. Alexsander Dickinson LYMPH # 2.4 103/ul Normal 1.2-3.8 [facility] Comment on above: Performed By: #### H BSANS #### [facility] [address] [address] [address] Alexsander Dickinson Lymphocytes/100 WBC (Bld) 26.3 % Normal 20.5-60.0 [facility] Comment on above: Performed By: #### H BSANS #### [facility] [address] [address] [address] Alexsander Dickinson MANUAL DIFF REQ NO Normal [facility] Comment on above: Performed By: #### H BSANS #### [facility] [address] [address] [address] Alexsander Dickinson MCH (RBC) [Entitic mass] 28.4 pg Normal 26.7-34.0 [facility] Comment on above: Performed By: #### H BSANS #### [facility] [address] [address] [address] Alexsander Dickinson MCHC (RBC) [Mass/Vol] 33.1 g/dL Normal 29.9-35.2 [facility] Comment on above: Performed By: #### H BSANS #### [facility] [address] [address] [address] Alexsander Dickinson MCV (RBC) [Entitic vol] 85.7 fL Normal 81.0-99.0 [facility] Comment on above: Performed By: #### H BSANS #### [facility] [address] [address] [address] Alexsander Diciknson MONO # 0.6 103/ul Normal 0.3-0.8 [facility] Comment on above: Performed By: #### H BSANS #### [facility] [address] [address] [address] Alexsander Dickinson Monocytes/100 WBC (Bld) 6.8 % Normal 1.7-12.0 [facility] Comment on above: Performed By: #### H BSANS #### [facility] [address] [address] [address] Alexsander Dickinson NEUT # 5.8 103/ul Normal 1.4-6.5 [facility] Comment on above: Performed By: #### H BSANS #### [facility] [address] [address] [address] Alexsander Dickinson Neutrophils/100 WBC (Bld) 65.0 % Normal 43.0-75.0 [facility] Comment on above: Performed By: #### H BSANS #### [facility] [address] [address] [address] Alexsander Dickinson Platelet mean volume (Bld) [Entitic vol] 9.9 fL Normal 9.5-13.5 [facility] Comment on above: Performed By: #### H BSANS #### [facility] [address] [address] [address] Alexsander Dickinson PLT 275 103/ul Normal 150-450 [facility] Comment on above: Performed By: #### H BSANS #### [facility] [address] [place] [address] Dr. Alexsander Dickinson RBC 4.55 106/ul Normal 4.20-5.40 [facility] Comment on above: Performed By: #### H BSANS #### [facility] [address] [place] [address] Dr. Alexsander Dickinson WBC 8.9 103/ul Normal 4.0-11.0 [facility] Comment on above: Performed By: #### H BSANS #### [facility] [address] [place] [address] Dr. Alexsander Dickinson CULTURE URINEon 08-16-2022 CULTURE URINE Culture Observations: MODERATE GROWTH OF MIXED GENITAL JOHN. NO POTENTIAL PATHOGENS SEEN. Normal [facility] Comment on above: Performed By: #### A FPMAT #### [facility] [address] [place] [address] Dr. Alexsander Dickinson GLYCOHEMOGLOBIN A1Con 2021 ADA RECOMMENDATION SEE BELOW Normal [facility] Comment on above: Result Comment: ADA RECOMMENDED LIMIT 4.0 - 6.0 ADA THERAPEUTIC TARGET < 7.0 ACTION SUGGESTED > 7.0 Performed By: #### A 1C #### [facility] [address] [place] [address] Dr. Alexsander Dickinson Glucose [Mass/Vol] 111 mg/dL Normal [facility] Comment on above: Performed By: #### A 1C #### [facility] [address] [address] [address] Alexsander Dickinson HbA1c (Bld) [Mass fraction] 5.5 % Normal 4.5-6.2 [facility] Comment on above: Performed By: #### A 1C #### [facility] [address] [address] [address] Alexsander Dickinson LATRELL BOX TEST PT SEND OUTo n 08-16-2022 SENT TO REF LAB 08/16/2022 Normal [facility] Comment on above: Performed By: #### N BOX #### [facility] [address] [address] [address] Alexsander Dickinson TYPE AND SCREENon 08-16-2022 TYPE AND SCREEN Negative Normal [facility] Comment on above: Performed By: #### A FPMAT #### [facility] [address] [address] [address] Alexsander Dickinson US PREG TVon 07-21-2022 [...] DEE GALLEGOS Date: 2022-07-20 22:25 Normal [facility] US PREG TVon 07-13-2022 US PREG TV EXAMINATION: US PREG TV HISTORY: Missed period COMPARISON: 03/09/2022 FINDINGS: Fonseca intrauterine gestation Gestational sac: 1.7 cm, 6 weeks 2 days Yolk sac: 1.7 mm [place]-rump length: 5.8 mm, 6 weeks 3 days Heart rate: 125 bpm Uterus is normal in appearance, anteverted, retroflexed The ovaries are normal in appearance. Cervix: Closed, 3.9 cm small amount of fluid in the endocervical canal IMPRESSION: Viable fonseca intrauterine gestation measuring 6 weeks 3 days Electronically authenticated by: SEBASTIAN HENRY Date: 2022-07-13 17:05 Normal [facility] Coding Summaryon 03-17-2022 Coding Summary HTMLBase 64 BxywomneBHr3aTp+PGhl YWQ+OB9FZDQbX70tjJKp dN3SB4eZCJ0PKWHDVPAR VI6HKP5tcIS9TRvhI5On biAv GrbczYIsGK80DMz2MFP2 sRqlBBnkzP2tiYOuO7s7 UoMyZP80bJ38YAcaRFBl IlX1PfEvxiotbXVw X8ysWtWtmVDbFll+PHRh YmxlIHdpZHRoPScxMDAl KmPgiMnwDS6pXg5dKQNp LWNvbGxhcHNlOiBj q0ecFJKyVPsfDW5hnXub J8FxnQW1SYSsq8p5Uq40 dHI+CYVaXTA6eRsbZBif o612OuLnv3cjIVH8 nVFdRYomKYU4F78qo6A2 HWOlGEGfCBA7zWN9pS2k iFptzoqyT9LhtSWlShV3 BDO9pYLwmC1ekRce owxtzZ0eEjz+S40BME3N SWFQBR4MFge4N2QeOozf dHI+RV15PRBnTI37kTNp bZQkm1gwjMp1MvDm HOOiJOB1vRxgTYoes0Bt RPIcV97ylPXxp2H9ZWZf dIfdqSCpSaZigLL3uE8h PCkdbrooo7extqaz Arotv5bmoa44mL50A35b FJadLZBpYDX0BHAwKNEp oRmxzv9evA8zJv8+IDxj l8rrt2qrgIm1CfZr BXPsmdHefQlqIQW7u9Gt Wm12O3InqZgwl6ZeUsa4 cp22kGYru2V4hYL1MZmv MOIwuF8pHZdjXzE2 ECIuUyEhfL70pECaFAwo Nn3isJkxdYnmOV2iUCCd ydsgTXIiwL1vEKScpLAh mRfiHI5kRQIhvkcx b952BdWtPDD4ZKPlaNAn C4DxaN1uTaYgZEOgIXUi L7OqbGGpRJzeT634LFkr GzN2WUHceiWsY4Ql KJJczPmoEuQ3s2P1Vr2T x9VxgxfvYQE9XParBAC6 ZyChJvZbQbT1N3RqNqz6 AEWtvFykJV2tN7So XCGshidkqqfoxZD7GNZq FJEjgJ09kZIhFUohXr0v c7R0g616HDNoHKLusC32 Oy4seUrqVYSobSTZ vO7jsnsjq6ydgtdbXqKi WMWmEMy3UEv3XOTotCyv HjPtMDE4SoX9KQU9tXBc dP0ngZnzwerjjD3b Oyc+M17vyU8dMPG3RVS1 tocrQGKlnkZtNP31VQ43 P1NvAmgubWWlrTR+PGRp rwWbsMfjTQ7cHgCt q4rbi2HyCCyxX8NaXKVc MGhnVff9PUEwEDN3zVM4 rF3sAERkPNqxf9Y9bRW3 P9UmjzNbso8jc7ma PMGrBKsxK93ahWTrg4D4 WPHovQN8EGOpeVydAbFn pV88Bjh+QRPnyBfab1On Qsuaj6qqq3pdyLg5 IjMwJSIgdmFsaWduPSJ0 s0NdSc06J07iRMxtMDUy EFAhPNPmEQFshZsobk4m cN6zMr9+PGNvbCB3 mWL2kW1dOJMlTuO6EJxe N321TaGpiAAoBlbdq6bp u0ulySv8MdSuACEakvOl wByoANB0r8AaEd51 A56jEVodDLUjQQRmAJJp UHSeeAgfck3qzK9wDo6+ GR3se1pwth24dL14qCK+ QNFqMIN0hUhhDDqi OPUnoY6nVVymIfL1OREa DuGhkJ18wCWcJXlwQs1h aOtliWdxPM5rZBQqiwqx s377KrKam0jxYQTl dFRmIJvtAOM8D93wq9L3 HLLyIVJcAOQ1cIM2lK6h bGlnbjogbGVmdDsgdmVy xLqcSHaaPNusO246 IHRvcDsnPlBhdGllbnQg FiBkPYi0F5VtFxr6FJSe pYpxTP0ezKDrEDkcSz4k xUgjrIliAS3aWHYb suzxn245YzLkr9yaOKSs xIEwFLwxJXK7B92ud3Z4 DJNkHYMjBCP2nGQ9qY4f bGlnbjogbGVmdDsg oxQjtRfsCCkeVLzuK743 IHRvcDsnPkJpcnRoIERh xWN0NS31WG18bZAeh2R0 ySR6N3VfPOOzqfbk hbpveIQ3ORDnPNXpiZ03 Ez9nuWxyUl4tBUOeKUL5 FJWcuFFfX6BbaA0mOjVj NGXmZEWsR0DbfXFx EKowQ923VVvvOlQ4IZDc waOtI1KnQSMjlZzgIxJ3 e9F1Ln2MN8S1TS70CC02 iNQja0N0eFI7D5Uk JCQyignamxupkYT2ROUp OMYoiA83Wy0lpZldUb1d KBCeBZB3DMKrrXIvF2Tb sE9cBvBwRXQaANHh U0AbmLKnEIbvK970WEky XfH6OYVpnmHkF8JsAWQo iIfoMoY8o6N6Pr1QJFd1 ZU66RE09iZWkp5S7 cFC8T3KpMIOljcmjbqdb mFU3WLBzAAHffN96Pb8g tOnaNh3fYOOqJOZ5PTDe zANgH4LsdL0xRuRw SDRgKLJzV1MwcQUqCMiq S030NYfcZcL5DTEpfnMf K7ZhDVOoiVcfXgX2w9Y2 Xb5GANGkVF12JMR1 mOQ6XK02YQ08R1JqQupk dGFibGU+PHRhYmxlIHdp ZHRoPScxMDAlJyBzdHls AG6jGc0kLBXoCOQu yEjklCXeXdLnq2nsVVZf POcrUG8laSaiD0CfuZU7 VDDed7x3Hw34N37gD8Fb dXA+ASEgbBM2zPE7 rO9jTqBvVpG4QSymK221 AuOqmBEzTiyye1eyc5nt mCh5CyS7XZNllgJrpLav NJQ6a2AqVa73X09c IHdpZHRoPSIxNSUiIHZh uKnjax5xwG6bPw9+PGNv hYM5lMF5hT4bSaPhXlQ4 LGseB303LiStlGUm Wzdbq2fir7mtgYy9IkVf GFZpgwOnwHeiHJF9c2My Ro52H6HlbXhjb0YmYpf8 mo37cPHyx0V7lYH6 Z1LyBVDbvpxjxZKhnXnb UF7iSBQuaoqmZMWgxH7r JXWcH3e5TmSeSpM5QUsi X6DfccK3BRJnnRSi UPmjKKY9H42gc1Z7TVJx KUSwBPT4tEB3wS6idYyi bjogbGVmdDsgdmVydGlj TIdaWWjeI880EOYr oPfsTHZhjQ3tNYAlfXKo hGodTH6kSVZlhllbIvLC TExJTlMsIEFMWVNTQSBS GQOPGEg5E0DqGhw8 EUMsyBlvNK9jnQAyDOhc Zl4bmVibwFtnBC0eIQPs abvzDZViwF9pBTAqrPNd zHxgCD9mFACdrklx w600NdJiCGJ4FTGphOSf O5TqeU0xAjVpRDKnGHVg D9JkxPWeHWswZ513DRls YkU4TRVttsTdM2Rp WJJafQnyWoX3k5F2Ev9p WD4iBb6yKKi6BV62KD53 dZBoi5L7gUK5E2VxADCc kpwcnabhjJW7VPSc NWIvzW61oTPaXTfuIb9t z7I4u274JLRhQJVqaG97 Zq2lwMhdNQNuxBKHjF7t gwcss1vuaczsGuHp BPYuJJq1UVv8INEbfLeo RsKgVJN7GoK7YAN7lMPd aC2doGsqbazhtR2oLop+ CrsdCQScnpL2P3Yh Cwy6LPHxqTgkWR7huGAj CPjiCw2dqLgqjNmhUP3m XHZfdpidKJNbfM4sFVTj aNSnoHopUJ7zGWTw xvxti952KfMeFAR7DFIf eUPbZ7KjqX8rMaPpSGNp ZGUbJ6AxuMTyDGwqI786 FNlaWrW1DAJfvtWx C3KkIYRgcEsxCxX8m8E2 Bh0UNZ8YOPC3J7LbIkv6 LYCskUgeOH1umNGkULfw Tr9faOqepNbeBS7q QNZketwbGNCuoF1yKODp aRWatCcyRS6nMAKjulkt a189JbRlETK3CHQffWCy Q8JsiJ7nWgHlKYBs YIEcX9BazANeIKrtC051 RSoeGfI8ACOvfmOdE1Da KNCykYzyKyN6s9S0Em3I UDwvdGQ+OJ05nb25 Q5GxTemdYzf6HXNiEGG4 xCU8fV3lNTUyYOydf5R8 qVJ1V4LqnhEqar1az7bi MIJdRZbvA32upKQz j8S2GYUjiKY5CGWvuViw OzTaxZ04Ubh+PGNvbGdy i2JdNykix2nrj2hmkGa0 IjMwJSIgdmFsaWdu TAB0f8MwCm97G28bDQre ZHRoPSIzMCUiIHZhbGln ta9ctN2vKb1+PGNvbCB3 sKJ9qW0rKiDaHcE1 VTsnY765JyWmzGAqXerh g3gzo9xekCe5WoOgAVZc rfQftAshBAM9f6OjTy36 R7EaqRsci2IfMlo7 ca06oGHzv8Y2zDB5Q1Jo NFDsvmsupRAlkLsuCK8r NZJutahlRYSujS9vLFCe T7a6RcQtSzT1BOig Q6BoweT6KOMdjXKqDBMh hDIHrY4xomzop4ilbtay UgUwWGWpGEt1ONc1YRRm dRktHvTjJGM5VfE7 RIE8oNUxsW4ynNpmktsk uY2eRhy+DFh8c1ixvHQm RK2alIX2JK46VB24fGPo j0W5sHC3S1RwMJQv cmnawteyxOE9JQFcKZCv fB43Cy8faJilMb3uEAFr WDH3BNHjoMTxH8FdsD3a FbRcNFApUXHyM3Me fUAtZXcjF393HEvyTyF7 PVFrguNvX2OfGADvqMta QtR1s2J5Rg1KTL98YS74 CS44nSRet7U1wZX2 H2GlVUUxtgpjnmtxfAY0 CEBkRHDzdS08Er9chHwz Oj1aYEBtHYN5WOIlzFGt K3HvlC9yHmWkCXFl UKNwE3LbbJVgEMrsQ970 QRooRcZ1EHGjxfKpM0Br NFRpfOrqDaG9t1Z4Ki1S Ks05BH05YL47wKCe v5Y9nYW3H9UpXMSfvali tqcnqPS6YURaEYVkkM20 Cg5wcGmuTt9kKKUmTCV8 AAJlcBVsB5DbjP2p SgYuQNQgLOPgU6ThaAMz LBojW937XUsdBjX2DFRi svKjD8IqHLPmgQrrTxJ4 z6Y9Zx6BWVnrepc5 Y8UzSvtqrNM+SE88NDHc WC11eFFkaJYeo0phbCl4 TxSiSKSsSCB5fIpyERiu n7LgQJYbU29vaRCb c2U (more content not included)... [facility] Coding Summary HTMLBase 64 AxzcoxgwWLv9uCz+PGhl YWQ+XI7HIEDyI36zsZXd hG6JR6nCHA5VDXRLHYZX YK4FIK0qlGB7EJteT1Rr biAv DohwfWVrCL03OJu4DIM0 oWkqMNbtfK6gfECiM5y2 EfNtMK74aW80NUfuQGVg VbQ6WdZywfyvlMHl F3cxCwKqcIAvHkc+PHRh YmxlIHdpZHRoPScxMDAl BaYitNguHC7hVc7dXVYl LWNvbGxhcHNlOiBj v1jiYBCcUHotYO1hnQxi R5LgpOR7CYMpz7t8Ox60 dHI+ACAqXSL4qMjzBYcz r659AoRgp5rvSQL2 vARmEPosHNR3O83tt6H3 CTKyQOVyMTY2lMR5vE0y jSfxfvyqS6VugEOkXbX4 UGI7cVBenH4msWjn twuzfQ6bLkw+T73LDC1J XTLCPN9IApg2Y2IaAkug dHI+UO27EQPuOZ19iBOm uVYqc9gyePe7KmYd AZMsVXJ2pCthDFvpz7Co POCtY58wnGKuk3A0YGUb fZbddUYuAoFegEW8hJ5t QRvbxahuk9luyogn Dkeyz2hqbh51xE80Q07a XIhbGSGsJNW8XATsKLNu cMnaew0asJ1wHf0+IDxj e3ebm5wzeWj4DiJo KLQlajBnzLhkLCW3j0Dp Qz10D6NcfJxfc7LlWzr1 da56yWKun5N0nJR4CEdz ENLccY5rTGbaXjS7 CNOuEjAqeU63yCTgMEyi Xk2pyMmmnWcjIX7yYEYq tgthIIXtuZ4cOJXivHOb dDcxUR8qYHVgeqbt b552VoYjHQV3SHYcoDSu P7ZsxS5tCtBkSEGdRADe K3RuoIThVJbsT264JGoh VrF9XFGqxkGjX7Mr LQLksYelXqJ4x5E2Ip6X x1RbcrabCMI1FHfgAYY3 ZbEmTwMxHbR4L9JdTdw7 CSCaaJkgQA7sH3Kj HLXfgdxeudvesCU3JEYw XAMxiL15hOUlZLhjYe5g b5L6d886NOPeBUJfqM11 Ik3bsBupTETbbCXT xA2zcvauo1obovmiEmTu GZUlHOf6KBw0FHUdrAoi BrFbOPM1UhI3LZF4kRKk cJ9yyZafiimkoH1s Oyc+K70qgT2iJSR6FIM1 wyleOXGnmfFgUE77UG92 E1LyGraelGLrhEB+PGRp uyQcjUwdVY9nFnUm x7oeb7EmDOqkM3CtKPXq OJeqRir6HKLaGHK4nJN9 gX4jOFSwUEqpy6Y5qZE4 M0GgohVcpf0tt9er JEFqNXlmQ78uaSQai4O4 YLPacLT9JCGqdFaaSkLn kW37Ozi+SVIobEezn1Hp Uuzfq7tqb4cdvXi7 IjMwJSIgdmFsaWduPSJ0 a6YnHi44Q09nQEgtTCZi NBUiUBHzWRNvaIsepx1e iT2sAq0+PGNvbCB3 zBD8hD8mFGCpElS0XTzd F564SxZluSVtGrbgh1vd u3nlxPh4KnAfJCGzsgBk rLanECV6o3LmPb44 L40sLJllKUUtQOVjSOAx ARCooGrymq3kxG7oVo4+ IV0xf9vhjm36pK47gGS+ NWHhXBA2xVmpKWvz EVUlxL5vLCkqBtJ3NMFk MgFynK17wTSaRQnkYo6q vXdmkKcfHV5nLRUwjtfs k978IxKmi5ruWYAr uNTxWIunXOX5N94pg6C8 NRNdMVNyWOX1xUT5aC9x bGlnbjogbGVmdDsgdmVy wQseCCenIBsyY218 IHRvcDsnPlBhdGllbnQg HdFdHCz0G7HxLkw0ICBa fRayBU3emCUnFWknDk6n iVhiaUhtPQ6vJREz awmem381IwBbb4qxNBSl nQWdERjcRMS2C36te3B8 ADAbUNAhFHD8qRR1pV9x bGlnbjogbGVmdDsg tfQmhRwoOZmkLDlsY709 IHRvcDsnPkJpcnRoIERh wMQ9FV29KL10hCJza9R6 iXT7W9ZpNBOdwzai iiumtTD5HKJtGLYqdO94 Ff8leTbsSc1kXHSsAXM3 TJZqrNLrK6QfoT8bOuMs KPVnUVFaU2CsnKMw SZhuS827SMrdHdI2APAw ljWyL6CxHULqrOvlByE5 o5O1Hr8ME7W1JZ70XR02 tLDbg6I1qGG7G2Bf MNHwmmpycsseyCD4PKBd RJZtgT94Bb7fuChiHw7a XHHeHSD2HIAjqKDdB4Fm nC7qBwFtTWTvAZXl H9LdhRYkEMncI209WHwn LcZ2AAVfooIkT8AyPMIh sIqjJiK3u7Z8Dq2LMQs0 KR20LD10vLExt9M7 eMN5W9IqQHBxctvpirsr oIQ6GELxRSLtdI63Lr8x xVvgIx9eXQEvBWI2ZDEx pKPuX2UnxN9xXoCp UFHvOEJsO2EegUDvVEef I715LGlnHhJ4WKWmvkSa P1DpBCLtmKafZaL6e9K2 Xa0FJZKpTA61NHD5 oLL9OA65OG13M5UdBiwz dGFibGU+PHRhYmxlIHdp ZHRoPScxMDAlJyBzdHls PY3gTy6mJOMgDKLp fRglmCMmUmOgx2wnPAFn HQuiMN3fuBcxK1XqdKW3 ELVzg8y8Ra94E16bF3Mo dXA+ZFIjaLU3bRV7 dC1yNwAlFzS9OLpcI882 QtTufWZeIbyny9qeq1kx kCd6VnR1YIGqukVbcHyg TPO4z1DuDg02Q00z IHdpZHRoPSIxNSUiIHZh kJgovv8bbA3wXu5+PGNv nTL3kKS5wE2fLpZtKhT0 QSqiG728FzFsnNTj Naxxa2xba2zpgIg1GiUr JCPsdmRzuExyPJA9v2Ga Vd49R0BwxAlgk1PbHly2 ke96gHDos1C1pEI3 I2QeFJKtjbcppELhqArf CO6bCPTyvoeoWJOhiM2w DRShH7a4WdKbZiW7HOxv R3RulhS1YUMurRHj GMggHRI7K64rc7L3YDAo HIEfSFD9mJO0cY9uoMxf bjogbGVmdDsgdmVydGlj KZiaGKcdG010DYMn gJkxSPOduP1hTPHunPNk yXboYU8jWHNmfnigVqPO TExJTlMsIEFMWVNTQSBS RAPIFYb0I3RbOvr7 FTWrmDdjNW5gyDDoIStf Mk2qmKgvvHbwGS6tGSDl vxtuRWGjyV4pFWGvjCWn tTgaKI7iLDDkjrtx w294EqBrBEP1VJNxeOGd D6CstH0nWzTkZWPeKXYo K8IqlZJgPKvjC319ZAwc GnK2HSZzipUyN6Gy DCJfrQblUsU8n2L7Ka0z IV7wCc4mQMo3IY61BT97 kFBeh2L5aOQ4L3PqGVLh fwkpekyewLF2ARBv BEKtwX65xMPnLUiwWo9f u7P6y565IZQuIEPycG36 Jm5whTaoWQSkjEFHvJ7m wdhuy7oqkjwyTdXt ORTiRXi1FEf2RTXjbLfo MvMuJPT8PjX1OKS9fWZf kC0usFrwvwwjpU1qNxl+ GrarIVUjodM5I6Lg Mxa2DINiaBbiBZ2tfELn YHfpVz9paAgerYocRS0o OETntpavDUEqyZ2vAOOv qJEtpReyFU7aBPAw uyqqn910QoOuJHR8QZCt pHVfQ2FseU8bBwEpWCEu HAMcE4TkhZFnXSpkO319 PCxjSkP3TEXhrbMf I0IeYAPudHudMuK8f3V1 Co1JYS0OZZB2V2OxHls5 VLHetXqeHS0hwOVaRUag Vx9lfNwvzKlgLI8h CWXtabntEYUfeA0nAEQr pGLsdAlrTO5zXNRnogao e606SmNbUDL9PDJghGPl V9TvqB1mEtDsGZTi OMQnQ6DuaEVmVObtJ858 FPbpMsV7SWVcazCuD8Sh OZXsrBiuHuW2s3G5Qu3W fMXlV8CvR5y8F8In PjwvdHI+MT56MZPtHK43 zCGrpTWch7obrMp9GkCy CRNoIHD5uWxrJJpsf5Ht RFCtY08djYCht6M9 IGNvbGxhcHNlOyBlbXB0 vO8zZLpjohjoa0natnmu Vpuaj0wqji76qS21A77m IHdpZHRoPSIzMCUi YSOreQqdzq3nnX6rCa7+ LAQffXV7uVA0tR6rGeOn CuC2BKgaX325JqTjeBCi Hspet0qpb0lgtZd4 IjIwJSIgdmFsaWduPSJ0 k7QuOh25A58fWFucVFZa NOLdGMBoGBTqkQyvcx3q jB3uFf8+SP8hm9ww tl71dA86jHA+PHRkIHN0 wPzfMGeiWPVviF7aNRjm PoN4ETHoAqLfjX33aXYk AOweZq5dnOdarCqg CZ5bYWLtjzljc118ZoOi g7onEEGxtBSlGKivNWH5 N99cm7S1DFHmLQVwTEM9 pFD9uJ6ueJanutdr bGVmdDsgdmVydGljYWwt GCasL540DYBmeVmhKdDh qWVxG8lhhqYORO5dPlzg dGQ+NGAqGLQ3pYrz YIniJPFoqY2gYBRvL9w9 WlIaJqN3EDuiQ6VsxpB1 GAQalZIeNWFdvYIGmX8a ukyys9dmnjdpJcOy FJZmSXy6OHu9LPPfiPqi OhWvMJN5BlQ7WBL1uLRb fZ5anPqdcpuzdH7lCeu+ RklOOjwvdGQ+PHRk ESK6zSmvIHqfMUCqlM7n CWXiX8c2IyIzBtC9GHop P7BlxpI3AJPfcQKmSVOi iEAWjZ1vffcmi1pb riiuPxVsZVEuWNp8FJo2 MJNqlYkaBlAnNGR8HuN7 WEK7sHHmxU8rwBvlmuqd kM5jXap+TVJOOjwv dGQ+BRNrRSL8qUlwESou JFPeyJ1eAPLwS7w8PkRw WaE3DNmvI8VfkvM6OGLg zFSbQVJzwAAKbA3d wcnvx1gvelwoZzWpEHXn PPc8NBl4GCWwkLxqEdZo GUV7FlL7QRQ2uRRooL1i zGxspxjjcW2cGzo+ DEV7RMA5TH55TM11N6Lp PjwvdGFibGU+PHRhYmxl IHdpZHRoPScxMDAlJyBz jApcPO4xAg5wQDQb LWN (more content not included)... Normal [facility] C Urineon 03-11-2022 C Urine Urine Culture ordered as a result of parameters set on specific urine dip and urine microsopic results. >3 Organisms Consistent with Contamination Recollection suggested. Normal [facility] Comment on above: Performed By: #### 1 1507915, 45789514, 4786765, 2437116712, 01987609, 6929829, 6457905657, 1201964389, 8739168979, 1166215 #### [facility] (DEFAULT) [address] [place] [address] .Auto Diff 03-09-2022 Auto Bremer % 8 % Normal 11-09 [facility] Comment on above: Performed By: #### 1 7353715, 74858533, 9850672, 9254582747, 93085297, 0310337, 1142118881, 0971003606, 2537626688, 9144069 #### [facility] (DEFAULT) [address] [place] [address] Baso Abs# 0.0 x10 Normal 0.0-0.2 [facility] Comment on above: Performed By: #### 1 3469046, 01721968, 8431828, 0140990133, 24476106, 9338918, 4363143026, 5401329059, 7069766670, 1837084 #### [facility] (DEFAULT) [address] [place] [address] 93723 Basophils/100 WBC (Bld) 0.3 % Normal 0.2-2.0 [facility] Comment on above: Performed By: #### 1 9132312, 50745474, 6412735, 0122717588, 20845020, 5370834, 1367821317, 6601546965, 4114454987, 0709749 #### [facility] (DEFAULT) [address] [place] [address] 85707 Eos Abs# 0.1 x10 Normal 0.0-0.4 [facility] Comment on above: Performed By: #### 1 2549318, 62681556, 3979967, 1462084097, 14302126, 8625630, 3603281864, 7601909529, 2007649485, 9481296 #### [facility] (DEFAULT) [address] [place] [address] 59447 Eosinophils/100 WBC (Bld) 1.0 % Normal 0.9-4.0 [facility] Comment on above: Performed By: #### 1 8691327, 84629756, 9406664, 4584967841, 85761226, 2171300, 0768237686, 8264516639, 4547579756, 5778064 #### [facility] (DEFAULT) [address] [place] [address] 56878 Lymph Abs# 2.0 x10 Normal 1.3-2.9 [facility] Comment on above: Performed By: #### 1 8534652, 89505624, 1915383, 3880481100, 09981510, 2673933, 6757867945, 6400104593, 3807520079, 0211201 #### [facility] (DEFAULT) [address] [place] [address] 71459 Lymphocytes/100 WBC (Bld) 35 % Normal 14-48 [facility] Comment on above: Performed By: #### 1 9426876, 93867651, 2902247, 4812245186, 92236885, 3669749, 4006853824, 6925037235, 2254384274, 3447129 #### [facility] (DEFAULT) [address] [place] [address] 66534 Bremer Abs# 0.5 x10 Normal 0.0-0.8 [facility] Comment on above: Performed By: #### 1 8292333, 48629855, 4935005, 1960650851, 82552520, 8396475, 5462009107, 8270801906, 3467219859, 1205284 #### [facility] (DEFAULT) [address] [place] [address] 40646 Neut Abs# 3.2 x10 Normal 1.5-9.2 [facility] Comment on above: Performed By: #### 1 4333490, 82946026, 0281684, 6885499240, 81643187, 4623727, 4629095766, 9021250589, 6198952852, 9631468 #### [facility] (DEFAULT) [address] [place] [address] Neutrophils/100 WBC (Bld) 55 % Normal 44-88 [facility] Comment on above: Performed By: #### 1 1353471, 63252055, 6828685, 4353199016, 66206585, 0975996, 9690702477, 9105070529, 0502707611, 4633263 #### [facility] (DEFAULT) [address] [place] [address] ABORhon 03-09-2022 ABO and Rh group Nom (Bld) Hx Check: Not Found Anti-A: 4+ Anti-B: 0 Anti-D: 4+ DCon: 0 A1: mf+ B: 4+ ABORh Interp: A POS Invalid Interpretation Code [facility] Comment on above: Performed By: #### 1 8575964, 54668651, 0735470, 1047443514, 95311000, 7745129, 2891372350, 5192607651, 9247667327, 3415993 #### [facility] (DEFAULT) [address] [place] [address] 67471 ABORh Retypeon 03-09-2022 ABO and Rh group Nom (Bld) Ordered by Discern. Anti-A: 4+ Anti-B: 0 Anti-D: 4+ DCon: 0 A1: mf+ B: 4+ ABORh Retype: A POS Invalid Interpretation Code [facility] Comment on above: Performed By: #### 1 6555702, 05330218, 0098410, 6397532140, 77706783, 4089123, 3377107934, 4671821889, 8402154513, 4890615 ####[facility] (DEFAULT)[address] [place] [address] 40134 CBC w/ Auto Diffon Erythrocyte distribution width (RBC) [Ratio] 13.3 % Normal 11.5-15.0 [facility] Comment on above: Performed By: #### 1 0674463, 76967237, 9681080, 8503774255, 51855354, 8686086, 3957525295, 1589962119, 5268277642, 7555690 #### [facility] (DEFAULT) [address] [place] [address] 31292 Hematocrit (Bld) [Volume fraction] 43.5 % High 33.7-40.4 [facility] Comment on above: Performed By: #### 1 4556114, 60097192, 6407228, 8725551473, 28451634, 7964840, 3618832047, 1880511832, 0225526149, 9987233 #### [facility] (DEFAULT) [address] [place] [address] 94776 Hemoglobin (Bld) [Mass/Vol] 14.1 g/dL Normal 11.3-15.9 [facility] Comment on above: Performed By: #### 1 9475866, 66870073, 1645033, 3775765991, 65917078, 9878473, 1817936668, 2495636426, 1931432986, 9320830 #### [facility] (DEFAULT) [address] [place] [address] 30033 Instr WBC 5.7 x10 Invalid Interpretation Code [facility] Comment on above: Performed By: #### 1 4200121, 10614725, 6503201, 1618181220, 20940229, 6933996, 7975753241, 7075824978, 0709350620, 5406751 #### [facility] (DEFAULT) [address] [place] [address] 29749 Man Diff? Auto Normal [facility] Comment on above: Performed By: #### 1 2172048, 99887764, 2528481, 9343322973, 65405007, 9910461, 5035324602, 7975726184, 1185683744, 1331547 #### [facility] (DEFAULT) [address] [place] [address] 28747 MCH (RBC) [Entitic mass] 28 pg Normal 24-34 [facility] Comment on above: Performed By: #### 1 8925200, 87654213, 1338355, 0979944652, 68937904, 6453689, 2989051645, 8602619202, 5242873275, 1529117 #### [facility] (DEFAULT) [address] [place] [address] 11843 MCHC (RBC) [Mass/Vol] 32 g/dL Normal 26-37 [facility] Comment on above: Performed By: #### 1 7021097, 07602340, 2949945, 0070861158, 04360303, 9170566, 8969755539, 2783603971, 1411007483, 1833420 #### [facility] (DEFAULT) [address] [place] [address] 91093 MCV (RBC) [Entitic vol] 86 fL Normal 81-100 [facility] Comment on above: Performed By: #### 1 8463843, 48512128, 8524986, 3019220830, 97116718, 0393920, 4307692938, 8520061484, 3761572398, 0917799 #### [facility] (DEFAULT) [address] [place] [address] 27907 Platelet 324 x10 Normal 138-427 [facility] Comment on above: Performed By: #### 1 8940994, 10078609, 1762898, 1995137990, 31826925, 0026049, 7103101906, 5359875638, 2046241045, 3548694 #### [facility] (DEFAULT) [address] [place] [address] 31446 Platelet mean volume (Bld) [Entitic vol] 9.8 fL Normal 6.3-10.2 [facility] Comment on above: Performed By: #### 1 4737485, 37725034, 0807507, 1370776997, 78891216, 9473331, 0769493456, 6434691343, 7146872468, 8392146 #### [facility] (DEFAULT) [address] [place] [address] 98981 RBC 5.07 x10 Normal 3.70-5.30 [facility] Comment on above: Performed By: #### 1 3474927, 60113966, 3757850, 7645722639, 63823917, 9428295, 8358719575, 7048669992, 4442444403, 8691811 #### [facility] (DEFAULT) [address] [place] [address] 13265 WBC 5.7 x10 Normal 3.5-10.5 [facility] Comment on above: Performed By: #### 1 3347538, 15679806, 9536045, 4930180550, 06858931, 8999278, 1747913567, 3530970242, 3857126854, 0734446 #### [facility] (DEFAULT) [address] [place] [address] 75896 CMP Standardon 03-09-2022 eGFR Non AA >60 Invalid Interpretation Code [facility] Comment on above: Performed By: #### 1 9013915, 40565061, 2029984, 5810800839, 05784363, 1694057, 0607333806, 5952012043, 1422655206, 5209234 #### [facility] (DEFAULT) [address] [place] [address] 28218 eGFR AA >60 Invalid Interpretation Code [facility] Comment on above: Result Comment: Respite Care Provider susie Kidney disease could be indicated at eGFRs of less than 60 ml/min/1.73m2. Kidney Failure is indicated at less than 15 ml/min/1.73m2 Performed By: #### 1 2247610, 70264847, 7704836, 1231606567, 76449652, 5513555, 0712059280, 6834983685, 6919002874, 4972748 #### [facility] (DEFAULT) [address] [place] [address] 74589 Albumin [Mass/Vol] 4.5 g/dL Normal 3.5-5.0 [facility] Comment on above: Performed By: #### 1 9867141, 00874153, 0442985, 5029230460, 42367794, 5444737, 8136663182, 1636233725, 4129595054, 0472701 #### [facility] (DEFAULT) [address] [place] [address] 69040 Albumin/Globulin [Mass ratio] 1.2 {ratio} Low 1.4-2.6 [facility] Comment on above: Performed By: #### 1 8744724, 54538851, 7528909, 2872333727, 71182647, 1737351, 2390389461, 9822827251, 1709621685, 5620459 #### [facility] (DEFAULT) [address] [place] [address] 19346 Alk Phos 52 IU/L Normal 32-91 [facility] Comment on above: Performed By: #### 1 4228501, 38839966, 4808639, 1378222735, 93840184, 7158574, 1285192804, 2317210938, 6393881667, 5089027 #### [facility] (DEFAULT) [address] [place] [address] 88113 ALT [Catalytic activity/Vol] 37.0 U/L Normal 14.0-54.0 [facility] Comment on above: Performed By: #### 1 8576012, 30604765, 8601543, 6300600871, 81576663, 1596467, 8145779322, 7315699243, 9057702130, 1312841 #### [facility] (DEFAULT) [address] [place] [address] 84361 Anion gap [Moles/Vol] 18.0 mmol/L Normal 5.0-19.0 [facility] Comment on above: Performed By: #### 1 7109260, 24307457, 8032254, 2920186845, 48164773, 1916720, 4775508373, 5828671591, 0126884928, 3322515 #### [facility] (DEFAULT) [address] [place] [address] 94826 AST [Catalytic activity/Vol] 29 U/L Normal 15-41 [facility] Comment on above: Performed By: #### 1 7681672, 50476486, 6522711, 7101041810, 78314872, 7615803, 1567805242, 3983656759, 9823511754, 9920821 #### [facility] (DEFAULT) [address] [place] [address] 30330 Bili Total 0.7 mg/dL Normal 0.3-1.2 [facility] Comment on above: Performed By: #### 1 3196590, 30683068, 6091739, 6508832571, 16128933, 0097997, 8265771718, 3032502986, 9667572150, 2802049 #### [facility] (DEFAULT) [address] [place] [address] 64786 Calcium [Mass/Vol] 9.4 mg/dL Normal 8.9-10.3 [facility] Comment on above: Performed By: #### 1 4831331, 57293664, 2033752, 8032092804, 53444617, 3764945, 6963811217, 7989694128, 0954534857, 4375360 #### [facility] (DEFAULT) [address] [place] [address] 99882 Chloride [Moles/Vol] 100 mmol/L Low 101-111 [facility] Comment on above: Performed By: #### 1 2642333, 30937530, 5176563, 9391664445, 78339072, 2271380, 5487353767, 7124774125, 9753139285, 9485248 #### [facility] (DEFAULT) [address] [place] [address] 40913 CO2 [Moles/Vol] 24 mmol/L Normal 21-32 [facility] Comment on above: Performed By: #### 1 2909278, 69224710, 4555851, 5642702589, 27778468, 3159997, 4943377875, 2406429323, 4569619189, 2703329 #### [facility] (DEFAULT) [address] [place] [address] 06018 Creatinine [Mass/Vol] 0.75 mg/dL Normal 0.60-1.30 [facility] Comment on above: Performed By: #### 1 6391858, 99895907, 8168655, 7847296859, 99359321, 9097458, 1771400050, 2013673919, 5770517202, 9381400 #### [facility] (DEFAULT) [address] [place] [address] 12479 Globulin (S) [Mass/Vol] 3.9 g/dL Normal 1.5-4.3 [facility] Comment on above: Performed By: #### 1 2245174, 50085539, 4515908, 5528136061, 16581109, 2585268, 9146544493, 1370436367, 6940395834, 1749531 #### [facility] (DEFAULT) [address] [place] [address] 80678 Glucose [Mass/Vol] 98.0 mg/dL Normal 74.0-118.0 [facility] Comment on above: Performed By: #### 1 2238397, 32394816, 1189664, 5710745136, 78203939, 6136430, 8121359753, 2068348966, 7844362874, 4492612 #### [facility] (DEFAULT) [address] [place] [address] 45191 Osmolality 274 mOsm/L Invalid Interpretation Code [facility] Comment on above: Performed By: #### 1 9351099, 55074547, 0861809, 9213348077, 89780916, 5606964, 0613053384, 6032372185, 0253698383, 2891612 #### [facility] (DEFAULT) [address] [place] [address] 95084 Potassium [Moles/Vol] 3.5 mmol/L Low 3.6-5.1 [facility] Comment on above: Performed By: #### 1 3097652, 43845620, 0217321, 9392096646, 71015071, 7466298, 0169092831, 5757299416, 1748632265, 9754431 #### [facility] (DEFAULT) [address] [place] [address] 21624 Protein [Mass/Vol] 8.4 g/dL High 6.5-8.1 [facility] Comment on above: Performed By: #### 1 9443550, 13314409, 4789504, 8977779666, 48403082, 1736926, [id number], [id number], [id number], 5378690 #### [facility] (DEFAULT) [address] [place] [address] 44091 Sodium [Moles/Vol] 138.0 mmol/L Normal 136.0-144.0 [facility] Comment on above: Performed By: #### 1 [id number], [id number], 7967068, [id number], 62515074, 6758811, [id number], [id number], [id number], 3712884 #### [facility] (DEFAULT) [address] [place] [address] 86692 Urea nitrogen [Mass/Vol] 7 mg/dL Low 8-26 [facility] Comment on above: Performed By: #### 1 [id number], 35184934, 6264801, [id number], 94967577, 1199974, [id number], [id number], [id number], 2760456 #### [facility] (DEFAULT) [address] [place] [address] Urea nitrogen/Creatinine [Mass ratio] 9.0 mg/mg Normal 4.6-16.2 [facility] Comment on above: Performed By: #### 1 [id number], 29253262, 5024252, [id number], 31548319, 9714728, 9871028005, 9347785847, [id number], [id number] #### [facility] (DEFAULT) [address] [place] [address] 71370 ED Clinical Summaryon 2021 ED Clinical Summary [facility] - Emergency Department [address] [place] [address] ED Clinical Summary PERSON INFORMATION Name: DIANE JOYCE Age: 26 Years Sex: FEMALE : 1995 MRN: Acct#: Visit Reason: Vaginal bleeding - < 20 wks ; BLEEDING, Arrival: 03/09/2022 15:56:59 Discharge: 03/09/2022 18:28:00 LOS: 000 02:32 Check In: 03/09/2022 15:56:59 Checkout:03/09/2022 18:28:00 Address: [address] [place] [address] PCP: Provider, None PROVIDER INFORMATION Provider Role Assigned Unassigned Mikayla Werner RN ED Nurse 03/09/2022 16:01:31 SILVERIO HANDLEY ED [...] or bladder. States that she follows with vendor quality supervisor in [place] Dr. Min, contacted his office and they [...] intact, SARINA: -Sclera conjunctiva: Unremarkable. NECK: -Supple (htql-uh-dimqo): non-tender. CARD: -Rate and rhythm: Regular -Edema: [...] the patient recommended close follow-up with her vendor quality supervisor and outpatient beta hCG. In the meantime no strenuous ac (more content not included)... Normal [facility] ED Note - Physicianon 2021 ED [...] or bladder. States that she follows with vendor quality supervisor in [place] Dr. Min, contacted his office and they [...] intact, SARINA: -Sclera conjunctiva: Unremarkable. NECK: -Supple (fawl-dz-pmdur): non-tender. CARD: -Rate and rhythm: Regular -Edema: [...] the patient recommended close follow-up with her vendor quality supervisor and outpatient beta hCG. In the meantime no strenuous activity, sexual activity if having any worsening issues I recommended he return to the emergency department or going directly to vendor quality supervisor. Patient indicated she understood was in agreement. [...] >60 (more content not included)... Normal [facility] ED Note-Nursingon 03-09-2022 Beta HCG ( test) Ql (U) Patient arrives with c/o vaginal bleeding during . States she took a at home test a week ago and estimates being 5 to 6 weeks along. Patient has some mild cramping yesterday / at has since went away and light vaginal bleeding today. This is the patients second , 1 live . Normal [facility] ED Patient Summaryon 022 ED Patient Summary [facility] - Emergency Department [address] [place], [place] [id number] PATIENT DISCHARGE INSTRUCTIONS Patient Information Name: DIANE JOYCE Age: 26 Years Date of : 1995 [facility]: [id number] Reason For Visit: Vaginal bleeding - < 20 wks ; BLEEDING, Arrival Time: 03/09/2022 15:56:59 Primary Care Physician: Provider, None Attending Physician: Adrian Rosales MD Comment: Visit Diagnosis: Diagnoses This Visit Elevated blood pressure reading (R03.0) First trimester (Z34.91) Threatened miscarriage in early (O20.0) Vaginal bleeding (N93.9) Vaginal bleeding - < 20 wks ([id number]) Prescription Information: If you have been given a prescription for narcotics, seek immediate medical attention if you have any difficulty breathing or any sudden status changes such as confusion and sleepiness. If you or anyone you know is experiencing suicidal thoughts, mental health, alcohol and/or drug addiction problems; contact the [facility] 21/05 Crisis Hotline -Text 2TOMF kg 307228. If you received any narcotics, sedation, or [...] documents With: Address: When: Follow-up with your vendor quality supervisor for reevaluation next few days. Within 1 to 2 days Comments: Follow-up with vendor quality supervisor for reevaluation next few days for reevaluation and outpatient quantitative hCG. Return immediately for any worsening issues such as increasing abdominal pains, increasing vaginal bleeding, fevers, or any other problems. 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 It is important for you to follow up with a doctor, nurse practitioner, or physician?s event marketing assistant for ongoing care. If your symptoms [...] we can reach you if necessary. [facility] Emergency Department has provided you with a complete list of medications post discharge. Please inform your cat scanner operator/provider of your visit and for further instruction [...] sec (more content not included)... Normal [facility] Extra Greenon 03-09-2022 Tube Collected Yes Invalid Interpretation Code [facility] Comment on above: Performed By: #### 1 [id number], 21774159, 8963129, [id number], 35405562, 2243395, [id number], [id number], [id number], 6273463 #### [facility] (DEFAULT) [address] [place] [address] 26853 PT/PTTon 03-09-2022 INR Coag (PPP) [Relative time] 0.95 {INR} Normal 0.91-1.11 [facility] Comment on above: Performed By: #### 1 [id number], 78676079, 0724851, [id number], 03438847, 2349939, 8327022892, [id number], [id number], 6984146 #### [facility] (DEFAULT) [address] [place] [address] 71217 PT 10.3 second(s) Normal 9.7-11.8 [facility] Comment on above: Performed By: #### 1 6589961, 94985709, 8525711, 8853321408, 91859260, 7571723, [id number], 1303088015, [id number], 9463520 #### [facility] (DEFAULT) [address] [place] [address] 51839 PTT 34 second(s) Normal 25-35 [facility] Comment on above: Performed By: #### 1 7640601, 76101715, 2728650, [id number], 62142356, 6237895, 0775617094, 1785818282, [id number], 0184278 #### [facility] (DEFAULT) [address] [place] [address] 44022 RhIG.on 03-09-2022 RhIG. No. Vials RhI RhIG Candidate?: No Date to Give: [id number] RhIG Status: RhIG Ready Normal [facility] Comment on above: Performed By: #### 1 [id number], 11331123, 7395813, [id number], 09207636, 4178250, 8952662803, 4296865855, [id number], 1306404 ####[facility] (DEFAULT)[address] [place] [address] UA Rvoar6ol 03-09-2022 UA Amorph. 1+ [facility] Comment on above: Order Comment: Urina lysis Microscopic order added on by Discern Expert Rules system. Performed By: #### 5 [id number], [id number], [id number] ####[facility] (DEFAULT)[address] [place] [address] UA Bacteria 2+ [facility] Comment on above: Order Comment: Urina lysis Microscopic order added on by Dis[employer] Expert Rules system. Performed By: #### 5 [id number], [id number], [id number] ####[facility] (DEFAULT)[address] [place] [address] UA Mucous 3+ [facility] Comment on above: Order Comment: Urina lysis Microscopic order added on by Dis[employer] Expert Rules system. Performed By: #### 5 [id number], [id number], [id number] ####[facility] (DEFAULT)[address] [place] [address] UA RBC >100 [facility] Comment on above: Order Comment: Urina lysis Microscopic order added on by Dis[employer] Expert Rules system. Performed By: #### 5 [id number], [id number], [id number] ####[facility] (DEFAULT)[address] [place] [address] UA Squam Epi Many [facility] Comment on above: Order Comment: Urina lysis Microscopic order added on by Discern Expert Rules system. Result Comment: DMITRY WERNER RN IN ER. RUN UNINALYSIS AND CULTURE ON THIS SPECIMEN. NO RECOLLECT. Performed By: #### 5 [id number], [id number], [id number] ####[facility] (DEFAULT)[address] [place] [address] UA WBC 3-5 [facility] Comment on above: Order Comment: Urina lysis Microscopic order added on by [employer] Expert Rules system. Performed By: #### 5 [id number], 8096220, [id number] ####[facility] (DEFAULT)[address] [place] [address] UA w Culture if Ind Standard on 03-09-2022 Breakpoint UA Normal [facility] Comment on above: Performed By: #### 1 [id number], 36714957, 7043350, [id number], 95798050, 1173624, 2341184484, 6363421210, [id number], 2014707 #### [facility] (DEFAULT) [address] [place] [address] Color (U) Yellow Normal [facility] Comment on above: Performed By: #### 1 1773205, 47668330, 3403928, 7152971517, 62830596, 7215300, 0295737056, 2268067761, 5545216572, 4679274 #### [facility] (DEFAULT) [address] [place] [address] Culture? Indicated Invalid Interpretation Code [facility] Comment on above: Result Comment: Resu lt created by rule GL_MAGR_ADD_UA_CULT Result created by rule GL_MAGR_ADD_UA_CULT Result created by rule GL_MAGR_ADD_UA_CULT1 Result created by rule GL_MAGR_ADD_UA_CULT Performed By: #### 1 [id number], 03163677, 4522465, 9403748427, 20484257, 1928824, 4715053644, 8599722929, 3200766714, 3888312 #### [facility] (DEFAULT) [address] [place] [address]10 Glucose (U) [Mass/Vol] Negative Normal [facility] Comment on above: Performed By: #### 1 8172388, 48755602, 3223917, 2102362426, 84076246, 0342144, 5468364964, 2454337045, 1657589170, 0798296 #### [facility] (DEFAULT) [address] [place] [address] Ketones Ql (U) 40 Normal [facility] Comment on above: Performed By: #### 1 5072554, 03251627, 9094076, 6769406640, 33880604, 0039202, 7902277286, 0384605647, 8437900574, 1234180 #### [facility] (DEFAULT) [address] [place] [address] Micro? Indicated Invalid Interpretation Code [facility] Comment on above: Result Comment: Resu lt created by rule GL_MAGR_ADD_UA_MICRO Performed By: #### 1 [id number], 38735430, 7972143, 2627511377, 34340769, 3199075, 8193379516, 3865204389, 9235312349, 5654332 #### [facility] (DEFAULT) [address] [place] [address] UA Bilirubin Negative Normal [facility] Comment on above: Performed By: #### 1 0729642, 92656932, 0267561, 7984244131, 51381765, 3430858, 6806805626, 8974032279, 0675689488, 2100138 #### [facility] (DEFAULT) [address] [place] [address] UA Blood LARGE Abnormal NEGATIVE [facility] Comment on above: Performed By: #### 1 6543318, 44965657, 6374890, 8301955325, 24602327, 7705710, 5560322282, 6308816440, 5968876217, 6937056 #### [facility] (DEFAULT) [address] [place] [address] UA Clarity SL CLOUDY Abnormal CLEAR [facility] Comment on above: Performed By: #### 1 1287478, 37916291, 8885421, 1577026139, 43967209, 2669463, 8188047601, 4140498191, 7242990064, 6796050 #### [facility] (DEFAULT) [address] [place] [address]47 UA Leuk Est TRACE Abnormal NEGATIVE [facility] Comment on above: Performed By: #### 1 5036260, 47708590, 5055283, 4250695410, 37037087, 3551543, 7299178154, 4012939617, 5235088561, 9865467 #### [facility] (DEFAULT) [address] [place] [address] UA Nitrite Negative Normal NEGATIVE [facility] Comment on above: Performed By: #### 1 0606901, 15000152, 4196271, 3790806618, 20642504, 2130810, 2633135500, 3515841824, 3140041054, 8548215 #### [facility] (DEFAULT) [address] [place] [address]10 UA pH 6.5 Normal 5-8 [facility] Comment on above: Performed By: #### 1 3415953, 56510603, 8077526, 9109214547, 13229875, 2633657, 9516757848, 8141358259, 3810935430, 7380457 #### [facility] (DEFAULT) [address] [place] [address]6580 UA Protein Negative Normal NEGATIVE [facility] Comment on above: Performed By: #### 1 1465876, 76937088, 6962627, 0703701331, 02614122, 2767001, 8005248510, 5791840427, 9050600794, 1155397 #### [facility] (DEFAULT) [address] [place] [address] UA Spec Grav 1.015 Normal 1.001-1.035 [facility] Comment on above: Performed By: #### 1 4859009, 26260747, 3871014, 1142946005, 53916248, 2264123, 1920301915, 4260170540, 0522019977, 7366451 #### [facility] (DEFAULT) [address] [place] [address] UA Urobilinogen 0.2 mg/dL Normal 0.2-1.0 [facility] Comment on above: Performed By: #### 1 9778364, 94324860, 6870323, 7501135993, 17372840, 6200225, 4668134654, 3865179675, 9118990504, 0581537 #### [facility] (DEFAULT) [address] [place] [address] Urine Source Clean Catch [facility] Comment on above: Performed By: #### 1 5377045, 34885314, 1165017, 3803053959, 68472112, 9476854, 9706653880, 0674574940, 3197735941, 4613270 #### [facility] (DEFAULT) [address] [place] [address] US 1st Trimesteron 03-09-2022 US 1st Trimester [...] Sebastian Guzman 03/09/22 6:10 pm Technologist: PM [facility] US Transvaginalon 03-09-2022 US Transvaginal EXAM: [...] 03/09/22 6:10 pm Technologist: PM Normal [facility] hCG Quantitativeon hCG Quantitative 7.1 mIU/mL High 0.0-0.6 [facility] Comment on above: Result Comment: Post -Menopausal Reference Range is: 0.1-11.6 mIU/mL Performed By: #### 1 2867005, 33524985, 8085829, 5304752790, 61829606, 2444591, 4246400977, 4611742101, 4474708644, 8184139 #### [facility] (DEFAULT) [address] [place] [address] Vital Signs Date Time Vital Sign Value Performing Clinician Facility 12-13-2023 15:00-0500 Body mass index (BMI) [Ratio] 46.69 kg/m2 [facility] Nurse [facility] 12-13-2023 15:00-0500 Body weight 123.38 kg [facility] 12-13-2023 15:00-0500 Diastolic blood pressure 78 mm[Hg] [facility] 12-13-2023 15:00-0500 Systolic blood pressure 128 mm[Hg] [facility] 05-15-2023 18:30-0400 Body height 161.29 cm Linsey Witt Other [facility] Other 05-15-2023 18:30-0400 Body mass index (BMI) [Ratio] 43.41 kg/m2 Linsey Eduar Other [facility] [facility] Other 05-15-2023 18:30-0400 Body temperature 99.2 [degF] Linsey Witt Other [facility] Other 05-15-2023 18:30-0400 Body weight 112.95 kg Linsey Eduar Other [facility] [facility] Other 05-15-2023 18:30-0400 Respiratory rate 18 /min Linsey Witt Other [facility] Other 05-15-2023 18:30-0400 SaO2% (BldA) [Mass fraction] 99 % Linsey Witt Other [facility] [facility] Other 05-09-2023 11:00-0400 Body height 161.29 cm Gissel Santana Other [facility] [facility] Other 05-09-2023 11:00-0400 Body mass index (BMI) [Ratio] 43.59 kg/m2 Gissel Santana Other [facility] [facility] Other 05-09-2023 11:00-0400 Body weight 113.4 kg Gissel Santana Other [facility] [facility] Other 05-09-2023 11:00-0400 Diastolic blood pressure 83 mm[Hg] Gissel Santana Other [facility] Other 05-09-2023 11:00-0400 Systolic blood pressure 119 mm[Hg] Gissel Santana Other [facility] Other 04-12-2023 09:00-0400 Body height 161.29 cm Gissel Santana Other [facility] Other 04-12-2023 09:00-0400 Body mass index (BMI) [Ratio] 43.59 kg/m2 Gissel Santana Other [facility] [facility] Other 04-12-2023 09:00-0400 Body weight 113.4 kg Gissel Santana Other [facility] [facility] Other 04-12-2023 09:00-0400 Diastolic blood pressure 88 mm[Hg] Gissel Santana Other [facility] Other 04-12-2023 09:00-0400 Systolic blood pressure 129 mm[Hg] Gissel Santana Other [facility] Other 10-11-2022 02:06-0500 Body weight 111.[address] ESTELLA MIN . [facility] Comment on above: Performed By: #### AFPMAT #### [facility] [address] [place] [address] Dr. Alexsander Dickinson Encounters Encounter Date Encounter Type Care Provider Facility Start: 06-05-2024 End: 06-05-2024 ambulatory ESTELLA MECHELLE Not Available Start: 05-19-2024 End: 05-19-2024 ambulatory JULITA NEW [...] 11-06-2023 End: 11-06-2023 ambulatory Gissel Santana Other [facility] Other Start: 11-06-2023 Encounter by donald Santana [facility] Start: 05-22-2023 End: 05-22-2023 ambulatory Olive Howard Other [employer] Other Start: 05-22-2023 Telephone encounter Olive Howard [facility] Start: 05-15-2023 End: 05-15-2023 ambulatory Linsey Witt Facility: Start: 05-15-2023 End: 05-15-2023 Departed Referred TERESA Witt Work Phone: [facility] [place] Work Phone: Start: 05-15-2023 End: 05-15-2023 ambulatory TERESA Witt Work Phone: [facility] Work Phone: Start: 05-15-2023 Office outpatient vi sit 25 minutes Linsey Witt [facility] Start: 05-09-2023 End: 05-09-2023 ambulatory Gissel Santana Other [employer] Other Start: 05-09-2023 Office outpatient vi sit 15 minutes Gissel Santana [facility] Start: 04-12-2023 End: 04-12-2023 ambulatory Gissel Santana Other [facility] Other Start: 04-12-2023 Encounter for genera l adult medical examination without abnormal findings Gissel Santana [facility] Start: 04-12-2023 Periodic preventive med est patient 18-39 yrs Gissel Santana [facility] Start: 02-15-[address] ESTELLA MIN [...] DR GISSEL SANTANA Facility:[facility]1 Start: 09-20-2022 End: 11-24-[address] GISSEL SANTANA Facility:[facility] Start: 09-14-2022 [...] EDT Routine [facility] [address] [place] [address] Estella Min, [address] [place] [address] [facility] Start: 12-13-2023 End: 12-13-2024 ABO/Rh ABO/Rh Lab Routine Missed menses Expected: 12/13/2023 (Approximate), Expires: 12/13/2024 [facility] Comment on above: Expected: 12/13/2023 (Approximate), [...] Missed menses Expected: 12/13/2023 (Approximate), Expires: 12/13/2024 [facility] Comment on above: Expected: 12/13/2023 (Approximate), Expires: 12/13/2024 Start: 12-13-2023 End: 12-13-2024 US Pelvis transvaginal US OB transvaginal Imaging Routine Missed menses Expected: 12/13/2023 (Approximate), Expires: 12/13/2024 [facility] Healthcare Comment on above: Expected: 12/13/2023 (Approximate), Expires: 12/13/2024 Start: 05-15-2023 Throat culture Throat Culture [facility] Bacteria identified in Urine by Culture Urine culture Microbiology Routine Missed menses Ordered: 12/13/2023 [facility] Comment on above: Ordered: 12/13/2023 CBC W Auto Different ial panel - Blood CBC and differential Lab Routine Missed menses Ordered: 12/13/2023 [facility] Comment on above: Ordered: 12/13/2023 Hemoglobin A1c/Hemoglobin.total in Blood Hemoglobin A1c Lab Routine Missed menses Ordered: 12/13/2023 [facility] Comment on above: Ordered: 12/13/2023 Hepatitis B virus surface Ag [Presence] in Serum or Plasma by Immunoassay Hepatitis B surface antigen Lab Routine Missed menses Ordered: 12/13/2023 [facility] Comment on above: Ordered: 12/13/2023 Hepatitis C virus Ab [Presence] in Serum or Plasma by Immunoassay Hepatitis C antibody Lab Routine Missed menses Ordered: 12/13/2023 [facility] Comment on above: Ordered: 12/13/2023 HIV-1/HIV-2 antigen/antibody combination immunoassay HIV-1 and HIV-2 antibodies Lab Routine Missed menses Ordered: 12/13/2023 [facility] Comment on above: Ordered: 12/13/2023 Reagin Ab [Presence] in Serum by RPR RPR Lab Routine Missed menses Ordered: 12/13/2023 [facility] Comment on above: Ordered: 12/13/2023 Rubella antibody, IgG Rubella an tibody, IgG Lab Routine Missed menses Ordered: 12/13/2023 [facility] Comment on above: Ordered: 12/13/2023 Payers Date Payer Category Payer Unknown BCBS BCBS xxxxxx [id number] 2020-Present [phone] [address] [place] [address] [id number]. [id number] 1994 Unknown [id number] 2.16.840.1.252532.3.579.2.593 1994 Unknown [id number] 2.16.840.1.924662.3.579.2.593 1994 Unknown [id number] 2.16.840.1.888355.3.579.2.593 1994 Unknown [id number] 2.16.840.1.385449.3.579.2.593 1994 Unknown [id number] 2.16.840.1.319326.3.579.2.593 1994 Unknown [id number] 2.16.840.1.347139.3.579.2.593 1994 Unknown [id number] 2.16.840.1.929959.3.579.2.593 1994 Unknown [id number] 2.16.840.1.030580.3.579.2.593 1994 Unknown [id number] 2.16.840.1.039184.3.579.2.593 1994 Unknown [id number] 2.16.840.1.220868.3.579.2.593 1994 Unknown [id number] 2.16.840.1.350437.3.579.2.593 1994 Unknown [id number] 2.16.840.1.113252.3.579.2.593 1994 Unknown [id number] 2.16.840.1.354685.3.579.2.593 1994 Unknown [id number] 2.16.840.1.936872.3.579.2.593 1994 Unknown [id number] 2.16.840.1.195895.3.579.2.593 1994 Unknown [id number] 2.16.840.1.471166.3.579.2.593 1994 Unknown [id number] 2.16.840.1.891313.3.579.2.593 1994 Unknown [id number] 2.16.840.1.848289.3.579.2.593 1994 Unknown [id number] 2.16.840.1.579495.3.579.2.593 1994 Unknown [id number] 2.16.840.1.226595.3.579.2.593 1994 Unknown [id number] 2.16.840.1.510156.3.579.2.593 1994 Unknown [id number] 2.16.840.1.758260.3.579.2.593 1994 Unknown [id number] 2.16.840.1.419964.3.579.2.593 1994 Unknown [id number] 2.16.840.1.037618.3.579.2.593 1994 Unknown [id number] 2.16.840.1.335256.3.579.2.1259 1994 Unknown [id number] 2.16.840.1.585005.3.579.2.1259 1994 Unknown [id number] 2.16.840.1.826150.3.579.2.1259 1994 Unknown [id number] 2.16.840.1.613016.3.579.2.1259 1994 Unknown [id number] 2.16.840.1.558097.3.579.2.1259 1994 Unknown [id number] 2.16.840.1.279300.3.579.2.1259 1994 Unknown [id number] 2.16.840.1.840959.3.579.2.1259 1994 Unknown [id number] 2.16.840.1.305797.3.579.2.1259 1959 Self-pay 1960 Unknown [id number] Unknown [id number] 2.16.840.1.722706.3.579.2.593 Unknown [id number] 2.16.840.1.766483.3.579.2.531 Social History Date Type Detail Facility Unknown if ever smoked [facility] [employer] Other Start: 03-12-2023 Sex Assigned At N [facility] [employer] Other Start: 1995 Sex Assigned At Female F [facility] Start: 03-12-2023 Tobacco smoking status NHIS Never smoked tobacco [facility] Start: 03-12-2023 Tobacco use and exposure Smokeless tobacco non-user [facility] Start: 12-13-2023 Alcohol intake Lifetime non-d иван (finding) [facility] Start: 03-12-2023 History of Social function [facility] Start: 10-25-2023 [facility] Start: 1995 Sex Assigned At Not on file [facility] Clinical Notes 03-09-2022 to 12-13-2023 Meenakshi [...] and stay away from [facility]. Patient has also been advised to not [...] Meenakshi Rosenthal MA documented in this encounter [facility] 05-15-2023 Evaluation note Encounter Date Diagnosis [...] understanding and is agreeable to treatment plan. [employer] Other 07-12-2023 Evaluation note* Encounter Date Diagnosis Assessment Notes Treatment Notes Treatment Clinical Notes Apr, Anxiety disorder, unspecified (ICD-10 - F41.9) Pt states that she, and her , agree that she is doing better on the medication. Continues to have stress, but is dealing more appropriately. Would like to continue this med and this dose. f/u6 months, sooner if needed. [employer] [facility] Other 06-15-2023 Evaluation note* Encounter Date Diagnosis [...] help for overwhelm. followup in 1 month [employer] Other 05-12-2022 NoteEducation Materials Cardiovascular Hypertension, Adult [...] skin, beans, e (more content not included)...[facility] noteNo assessment information availableVeterans Health Administration Work Phone: Evaluation noteNo InformationNortSCI-[facility] [employer] Other Evaluation note* Diagnosis Missed menses documented in this encounter [facility] N[facility]ative - Reported* Type Description Date Surgical History C-sect 2019 Surgical History C-sect 2022 [employer] Other History general Narrative - Reported* Type Description Date Medical History Anxiety disorder, unspecified Surgical History C-sect 2019 Surgical History C-sect 2022 Hospitalization History SEE SURGICAL [employer] Other History general Narrative - Reported* Type Description Date Medical History Anxiety disorder, unspecified Medical History Gestational diabetes Surgical History C-sect 2019 Surgical History C-sect 2022 Hospitalization History SEE SURGICAL [employer] Other Summary Purpose Family History No Family History Records FoundNo Family History Records FoundNo Family History Records FoundNo Family History Records Found Advance Directives No Advanced Directives Records FoundNo Advanced Directives Records FoundNo Advanced Directives Records FoundNo Advanced Directives Records Found Additional Source Comments INFORMATION SOURCE (unrecogn ized section and content) DATE CREATED AUTHOR 03/18/2022 [facility] l DATE CREATED AUTHOR AUTHOR'S ORGANIZ ATION 02/15/2023 [facility] DATE CREATED AUTHOR AUTHOR'S ORGANIZ ATION 05/24/2023 [facility] DATE CREATED AUTHOR AUTHOR'S ORGANIZ ATION 06/07/2024 [facility] EPIC REASON FOR VISIT (unrecogniz ed section and content) Reason Comments Amenorrhea Care Teams (unrecognized sec tion and content) Team Status: Inactive Member Role Status Dates Linsey Witt APRN Attending Provider Active Flask Pusher Relationship Specialty Start Date End Date Gissel Santana MD [address] [facility] [place] [address] PCP - General Family Medicine [...] BE BASED ON THE PRIMARY CLINICAL RECORDS. [facility]. provides no warranty or guarantee of the accuracy or completeness of information in this document.
--- NOTE | 2024-06-11 10:59 | US_ITS ---
[address] [address] Patient Name: VADIM CONSTANTINO MRN: [id number] date: 1995 Sex: F Assigned Patient Location: [facility] Current Patient Location: [facility] Accession/Order Number: [id number] Exam Date: 06/11/2024 11:00 Report Date: 06/11/2024 11:29 At the request of: ESTELLA BUENO Procedure: US OB BPP w non-stress EXAMINATION: US OB BPP w non-stress HISTORY: Gestational diabetes mellitus O24.419 COMPARISON: No relevant comparison available. TECHNIQUE: Ultrasound biophysical profile was performed in the radiology department. non-reactive stress testing was performed by nursing staff in the birthing center. FINDINGS: BREATHING MOVEMENTS: 2 GROSS BODY MOVEMENTS: 2 TONE: 2 QUALITATIVE AMNIOTIC FLUID VOLUME: 2 PRESENTATION: CEPHALIC HEART RATE: 147.54 bpm AMNIOTIC FLUID VOLUME: 24.8 GESTATIONAL AGE: 34w6d US/US OB BPP w non-stress IMPRESSION: Total biophysical profile score: 8 Electronically authenticated by: SEBASTIAN HENRY Date: 06/11/2024 11:29
[2024-06-11 11:16] VITALS: BP 127/86; PULSE 103
== END 2024-06-11 11:40 | disposition home or self-care (01) ==
LOC: US 06:59 → FBC 10:57
PROVIDERS: Visit Provider Obstetrics & Gynecology
DX: O24.419 Gestational diabetes mellitus in pregnancy, unspecified control (principal); Z3A.34 34 weeks gestation of pregnancy
CPT/HCPCS: 76818

== ENCOUNTER 2024-06-14 07:44 | Outpatient (OUT) | payer BC, SELFPAY ==
--- OUTSIDE RECORDS SUMMARY | 2024-06-14 07:47 | XMS_ITS | CCD ---
Author Organization [facility] Care Team Providers Care Owner Spa Director Name Role Phone MECHELLE ., DR [...] ., DR SORIA Consulting Unavailable SANTANA, DR GSISEL Teresa Primary Care Unavailable MECHELLE ., DR [...] ., DR SORIA Consulting Unavailable SANTANA, DR GSISEL Teresa Primary Care Unavailable MECHELLE ., DR [...] Unavailable MECHELLE ., DR SORIA Admitting Unavailable [place], Sebastian Consulting Unavailable SANTANA, DR GISSEL Teresa Primary Care Unavailable MECHELLE ., DR SORIA Consulting Unavailable SANTANA, DR GISSEL Teresa Primary Care Unavailable MEHCELLE ., DR SORIA Admitting Unavailable MECHELLE ., [...] Interpretation and review of laboratory results Abnormal [facility] Healthca re Preg Test, Ur Positive [facility] Urinalysis macro (dipstick) panel (U)on 12-13-2023 Bilirubin, UA Negative Negative - 4(70) +++ mg/dL [facility] Blood, UA Negative Negative - 50 Sal/mcL [facility] Clarity, UA Clear [facility] Healthor re Color, UA Yellow [facility] Healthcar e Glucose, UA Negative Negative - 1999(110) ++++ mg/dL [facility] Interpretation and review of laboratory results Abnormal [facility] re Ketones, UA Positive Negative - 160(16) ++++ mg/dL [facility] Leukocytes, UA Negative Negative - 500+++ Lizzy/mcL [facility] Nitrite, UA Negative Negative - Positive [facility] pH, UA 7.0 5 - 9 [facility] Healthcar e Protein, UA Positive Negative - 1999(20) ++++ mg/dL [facility] Spec Grav, UA 1.030 1 - 1.03 [facility] Urobilinogen, UA 0.2 0.2 - 12 mg/dL [facility] Quick Strepon 05-15-2023 S. pyogenes Org specific cx Ql (Throat) Negative [employer] Other Quick Strep [employer] Other Throat Cultureon 05-15-2023 Throat culture Heavy Normal Respiratory John 2 Days PERFORMED BY: [place] [id number] [address] [place] [address] PATHOLOGIST SEAT SCOOPER MACHINE ARACELI HAYWOOD M.D. Normal [facility] Comment on above: Performed By: #### C UT #### [facility] [address] GROUP B STREP CULTUREon 01-27 S. [...] S F Tetracycline <=0.25 S F Normal [facility] Comment on above: Performed By: #### A FPMAT #### [facility] [address] [place] [address] Dr. Alexsander Dickinson CBC AUTO DIFFon 02-02-2023 BASO # 0.0 103/ul Normal 0.0-0.1 [facility] Comment on above: Performed By: #### C BC #### [facility] [address] [place] [address] Dr. Alexsander Dickinson Basophils/100 WBC (Bld) 0.2 % Normal 0.2-2.0 [facility] Comment on above: Performed By: #### C BC #### [facility] [address] [place] [address] Dr. Alexsander Dickinson EO # 0.0 103/ul Normal 0.0-0.7 [facility] Comment on above: Performed By: #### C BC #### [facility] [address] [place] [address] Dr. Alexsander Dickinson Eosinophils/100 WBC (Bld) 0.0 % Critically low 0.9-7.0 [facility] Comment on above: Performed By: #### C BC #### [facility] [address] [place] [address] Dr. Alexsander Dickinson Erythrocyte distribution width (RBC) [Ratio] 12.5 % Normal 11.0-15.0 [facility] Comment on above: Performed By: #### C BC #### [facility] [address] [address] [address] Alexsander Dickinson Hematocrit (Bld) [Volume fraction] 32.9 % Critically low 36.0-48.0 [facility] Comment on above: Performed By: #### C BC #### [facility] [address] [address] [address] Alexsander Dickinson Hemoglobin (Bld) [Mass/Vol] 10.7 g/dL Critically low 12.0-16.0 [facility] Comment on above: Performed By: #### C BC #### [facility] [address] [address] [address] Alexsander Dickinson IG # 0.12 10e3/ul Critically high 0.00-0.03 [facility] Comment on above: Performed By: #### C BC #### [facility] [address] [address] [address] Alexsander Dickinson IG % 0.7 % Critically high 0.0-0.5 [facility] Comment on above: Performed By: #### C BC #### [facility] [address] [address] [address] Alexsander Dickinson LYMPH # 1.1 103/ul Critically low 1.2-3.8 [facility] Comment on above: Performed By: #### C BC #### [facility] [address] [address] [address] Alexsander Dickinson Lymphocytes/100 WBC (Bld) 6.4 % Critically low 20.5-60.0 [facility] Comment on above: Performed By: #### C BC #### [facility] [address] [address] [address] Alexsander Dickinson MANUAL DIFF REQ NO Normal [facility] Comment on above: Performed By: #### C BC #### [facility] [address] [address] [address] Alexsander Dickinson MCH (RBC) [Entitic mass] 26.1 pg Critically low 26.7-34.0 [facility] Comment on above: Performed By: #### C BC #### [facility] [address] [address] [address] Alexsander Dickinson MCHC (RBC) [Mass/Vol] 32.5 g/dL Normal 29.9-35.2 [facility] Comment on above: Performed By: #### C BC #### [facility] [address] [address] [address] Alexsander Dickinson MCV (RBC) [Entitic vol] 80.2 fL Critically low 81.0-99.0 [facility] Comment on above: Performed By: #### C BC #### [facility] [address] [place] [address] Dr. Alexsander Dickinson MONO # 0.4 103/ul Normal 0.3-0.8 [facility] Comment on above: Performed By: #### C BC #### [facility] [address] [place] [address] Dr. Alexsander Dickinson Monocytes/100 WBC (Bld) 2.1 % Normal 1.7-12.0 [facility] Comment on above: Performed By: #### C BC #### [facility] [address] [place] [address] Dr. Alexsander Dickinson NEUT # 15.5 103/ul Critically high 1.4-6.5 [facility] Comment on above: Performed By: #### C BC #### [facility] [address] [place] [address] Dr. Alexsander Dickinson Neutrophils/100 WBC (Bld) 90.6 % Critically high 43.0-75.0 [facility] Comment on above: Performed By: #### C BC #### [facility] [address] [place] [address] Dr. Alexsander Dickinson Platelet mean volume (Bld) [Entitic vol] 10.7 fL Normal 9.5-13.5 [facility] Comment on above: Performed By: #### C BC #### [facility] [address] [place] [address] Dr. Alexsander Dickinson PLT 310 103/ul Normal 150-450 [facility] Comment on above: Performed By: #### C BC #### [facility] [address] [place] [address] Dr. Alexsander Dickinson RBC 4.10 106/ul Critically low 4.20-5.40 [facility] Comment on above: Performed By: #### C BC #### [facility] [address] [place] [address] Dr. Alexsander Dickinson WBC 17.1 103/ul Critically high 4.0-11.0 [facility] Comment on above: Performed By: #### C BC #### [facility] [address] [place] [address] Dr. Alexsander Dickinson CBC AUTO DIFFon 02-01-2023 BASO # 0.0 103/ul Normal 0.0-0.1 [facility] Comment on above: Performed By: #### A 1C #### [facility] [address] [place] [address] Dr. Alexsander Dickinson Basophils/100 WBC (Bld) 0.2 % Normal 0.2-2.0 [facility] Comment on above: Performed By: #### A 1C #### [facility] [address] [place] [address] Dr. Alexsander Dickinson EO # 0.0 103/ul Normal 0.0-0.7 [facility] Comment on above: Performed By: #### A 1C #### [facility] [address] [place] [address] Dr. Alexsander Dickinson Eosinophils/100 WBC (Bld) 0.4 % Critically low 0.9-7.0 [facility] Comment on above: Performed By: #### A 1C #### [facility] [address] [place] [address] Dr. Alexsander Dickinson Erythrocyte distribution width (RBC) [Ratio] 12.9 % Normal 11.0-15.0 [facility] Comment on above: Performed By: #### A 1C #### [facility] [address] [place] [address] Dr. Alexsander Dickinson Hematocrit (Bld) [Volume fraction] 34.2 % Critically low 36.0-48.0 [facility] Comment on above: Performed By: #### A 1C #### [facility] [address] [place] [address] Dr. Alexsander Dickinson Hemoglobin (Bld) [Mass/Vol] 11.4 g/dL Critically low 12.0-16.0 [facility] Comment on above: Performed By: #### A 1C #### [facility] [address] [place] [address] Dr. Alexsander Dickinson IG # 0.04 10e3/ul Critically high 0.00-0.03 [facility] Comment on above: Performed By: #### A 1C #### [facility] [address] [place] [address] Dr. Alexsander Dickinson IG % 0.5 % Normal 0.0-0.5 [facility] Comment on above: Performed By: #### A 1C #### [facility] [address] [place] [address] Dr. Alexsander Dickinson LYMPH # 2.1 103/ul Normal 1.2-3.8 [facility] Comment on above: Performed By: #### A 1C #### [facility] [address] [place] [address] Dr. Alexsander Dickinson Lymphocytes/100 WBC (Bld) 23.9 % Normal 20.5-60.0 [facility] Comment on above: Performed By: #### A 1C #### [facility] [address] [place] [address] Dr. Alexsander Dickinson MANUAL DIFF REQ NO Normal [facility] Comment on above: Performed By: #### A 1C #### [facility] [address] [place] [address] Dr. Alexsander Dickinson MCH (RBC) [Entitic mass] 27.0 pg Normal 26.7-34.0 [facility] Comment on above: Performed By: #### A 1C #### [facility] [address] [place] [address] Dr. Alexsander Dickinson MCHC (RBC) [Mass/Vol] 33.3 g/dL Normal 29.9-35.2 [facility] Comment on above: Performed By: #### A 1C #### [facility] [address] [address] [address] Alexsander Dickinson MCV (RBC) [Entitic vol] 81.0 fL Normal 81.0-99.0 [facility] Comment on above: Performed By: #### A 1C #### [facility] [address] [address] [address] Alexsander Dickinson MONO # 0.5 103/ul Normal 0.3-0.8 [facility] Comment on above: Performed By: #### A 1C #### [facility] [address] [place] [address] Dr. Alexsander Dickinson Monocytes/100 WBC (Bld) 6.0 % Normal 1.7-12.0 [facility] Comment on above: Performed By: #### A 1C #### [facility] [address] [place] [address] Dr. Alexsander Dickinson NEUT # 5.9 103/ul Normal 1.4-6.5 [facility] Comment on above: Performed By: #### A 1C #### [facility] [address] [place] [address] Dr. Alexsander Dickinson Neutrophils/100 WBC (Bld) 69.0 % Normal 43.0-75.0 [facility] Comment on above: Performed By: #### A 1C #### [facility] [address] [place] [address] Dr. Alexsander Dickinson Platelet mean volume (Bld) [Entitic vol] 10.5 fL Normal 9.5-13.5 [facility] Comment on above: Performed By: #### A 1C #### [facility] [address] [place] [address] Dr. Alexsander Dickinson PLT 275 103/ul Normal 150-450 [facility] Comment on above: Performed By: #### A 1C #### [facility] [address] [place] [address] Dr. Alexsander Dickinson RBC 4.22 106/ul Normal 4.20-5.40 [facility] Comment on above: Performed By: #### A 1C #### [facility] [address] [place] [address] Dr. Alexsander Dickinson WBC 8.6 103/ul Normal 4.0-11.0 [facility] Comment on above: Performed By: #### A 1C #### [facility] [address] [place] [address] Dr. Alexsander Dickinson LDHon 02-01-2023 LDH 124 U/L Normal 81-234 [facility] Comment on above: Performed By: #### C MP, LDH, URIC #### [facility] [address] [place] [address] Dr. Alexsander Dickinson POINT OF CARE GLUCOSEon Glucose [Mass/Vol] 98 mg/dL Normal 74-106 [facility] Comment on above: Performed By: #### A 1C #### [facility] [address] [place] [address] Dr. Alexsander Dickinson PROF 14(COMP METB)on 023 Albumin [Mass/Vol] 2.5 g/dL Critically low 3.4-5.0 [facility] Comment on above: Performed By: #### C MP, LDH, URIC #### [facility] [address] [place] [address] Dr. Alexsander Dickinson Albumin/Globulin [Mass ratio] 0.6 {ratio} Normal [facility] Comment on above: Performed By: #### C MP, LDH, URIC #### [facility] [address] [place] [address] Dr. Alexsander Dickinson ALP [Catalytic activity/Vol] 138 U/L Critically high 46-116 [facility] Comment on above: Performed By: #### C MP, LDH, URIC #### [facility] [address] [place] [address] Dr. Alexsander Dickinson ALT [Catalytic activity/Vol] 15 U/L Normal 14-59 [facility] Comment on above: Performed By: #### C MP, LDH, URIC #### [facility] [address] [place] [address] Dr. Alexsander Dickinson Anion gap [Moles/Vol] 14.5 mmol/L Normal [facility] Comment on above: Performed By: #### C MP, LDH, URIC #### [facility] [address] [address] [address] Alexsander Dickinson AST [Catalytic activity/Vol] 8 U/L Critically low 15-37 [facility] Comment on above: Performed By: #### C MP, LDH, URIC #### [facility] [address] [address] [address] Alexsander Dickinson Bilirubin [Mass/Vol] 0.2 mg/dL Normal 0.2-1.0 [facility] Comment on above: Performed By: #### C MP, LDH, URIC #### [facility] [address] [address] [address] Alexsander Dickinson Calcium [Mass/Vol] 8.6 mg/dL Normal 8.5-10.1 [facility] Comment on above: Performed By: #### C MP, LDH, URIC #### [facility] [address] [place] [address] Dr. Alexsander Dickinson Chloride [Moles/Vol] 103 mmol/L Normal 98-107 [facility] Comment on above: Performed By: #### C MP, LDH, URIC #### [facility] [address] [address] [address] Alexsander Dickinson CO2 [Moles/Vol] 23.7 mmol/L Normal 21.0-32.0 [facility] Comment on above: Performed By: #### C MP, LDH, URIC #### [facility] [address] [address] [address] Alexsander Dickinson Creatinine [Mass/Vol] 0.61 mg/dL Normal 0.55-1.02 [facility] Comment on above: Performed By: #### C MP, LDH, URIC #### [facility] [address] [address] [address] Alexsander Dickinson EGFR-AF LAO >60 Normal >=60 [facility] Comment on above: Performed By: #### C MP, LDH, URIC #### [facility] [address] [place] [address] Dr. Alexsander Dickinson EGFR-NON AF LAO >60 Normal >=60 [facility] Comment on above: Performed By: #### C MP, LDH, URIC #### [facility] [address] [address] [address] Alexsander Dickinson Globulin (S) [Mass/Vol] 4.1 g/dL Normal [facility] Comment on above: Performed By: #### C MP, LDH, URIC #### [facility] [address] [address] [address] Alexsander Dickinson Glucose [Mass/Vol] 123 mg/dL Critically high 74-106 [facility] Comment on above: Performed By: #### C MP, LDH, URIC #### [facility] [address] [place] [address] Dr. Alexsander Dickinson Potassium [Moles/Vol] 4.2 mmol/L Normal 3.5-5.1 [facility] Comment on above: Performed By: #### C MP, LDH, URIC #### [facility] [address] [place] [address] Dr. Alexsander Dickinson Protein [Mass/Vol] 6.6 g/dL Normal 6.4-8.2 [facility] Comment on above: Performed By: #### C MP, LDH, URIC #### [facility] [address] [place] [address] Dr. Alexsander Dickinson Sodium [Moles/Vol] 137 mmol/L Normal 136-145 [facility] Comment on above: Performed By: #### C MP, LDH, URIC #### [facility] [address] [place] [address] Dr. Alexsander Dickinson Urea nitrogen [Mass/Vol] 5.0 mg/dL Critically low 7.0-18.0 [facility] Comment on above: Performed By: #### C MP, LDH, URIC #### [facility] [address] [place] [address] Dr. Alexsander Dickinson Urea nitrogen/Creatinine [Mass ratio] 8.2 mg/mg Normal [facility] Comment on above: Performed By: #### C MP, LDH, URIC #### [facility] [address] [place] [address] Dr. Alexsander Dickinson PROTIMEon 02-01-2023 INR Coag (PPP) [Relative time] {INR} Normal [facility] Comment on above: Performed By: #### H BSANS #### [facility] [address] [place] [address] Dr. Alexsander Dickinson INR GUIDELINES SEE BELOW Normal [facility] Comment on above: Result Comment: CAROLEE RED INR: 2.0 - 3.0 CONDITIONS NOT LISTED BELOW 2.5 - 3.5 FOR PROSTHETIC HEART VALVE REPLACEMENT 2.5 - 3.5 RECURRENT THROMBOSIS Performed By: #### H BSANS #### [facility] [address] [place] [address] Dr. Alexsander Dickinson PT Coag (PPP) [Time] 9.2 s Normal 9.0-11.6 [facility] Comment on above: Performed By: #### H BSANS #### [facility] [address] [place] [address] Dr. Alexsander Dickinson PTTon 02-01-2023 aPTT Coag (Bld) [Time] 25.9 s Normal 22.3-36.2 [facility] Comment on above: Performed By: #### H BSANS #### [facility] [address] [place] [address] Dr. Alexsander Dickinson TYPE AND SCREENon 02-01-2023 TYPE AND SCREEN Negative Normal [facility] Comment on above: Performed By: #### A FPMAT #### [facility] [address] [place] [address] Dr. Alexsander Dickinson URIC ACID SERUMon 02-01-2023 Urate [Mass/Vol] 5.5 mg/dL Normal 2.6-6.0 [facility] Comment on above: Performed By: #### C MP, LDH, URIC #### [facility] [address] [place] [address] Dr. Alexsander Dickinson US PREG BIOPHY W [...] by: DEE GALLEGOS Date: 2023-02-01 15:04 Normal [facility] US PREG BIOPHY W NON [...] by: SEBASTIAN HENRY Date: 2023-01-25 15:18 Normal [facility] US PREG BIOPHY W NON [...] by: DEE GALLEGOS Date: 2023-01-19 06:16 Normal [facility] US PREG BIOPHY W NON [...] DEE GALLEGOS Date: 2023-01-11 15:38 Normal [facility] US PREG GROWTHon 01-11-2023 US PREG GROWTH [...] DEE GALLEGOS Date: 2023-01-11 16:42 Normal [facility] GTT 3 HR PREGon 12-01-2022 Glucose [Mass/Vol] 104 mg/dL Normal 74-106 [facility] Comment on above: Performed By: #### A 1C #### [facility] [address] [address] [address] Alexsander Dickinson Glucose [Mass/Vol] 182 mg/dL Normal [facility] Comment on above: Performed By: #### A 1C #### [facility] [address] [address] [address] Alexsander Dickinson Glucose [Mass/Vol] 114 mg/dL Normal [facility] Comment on above: Performed By: #### A 1C #### [facility] [address] [address] [address] Alexsander Dickinson Glucose [Mass/Vol] 73 mg/dL Normal [facility] Comment on above: Performed By: #### A 1C #### [facility] [address] [place] [address] Dr. Alexsander Dickinson PAP ACOG PANEL 2: 20 to 28on 11-18-2022 . . Normal [facility] Comment on above: Performed By: #### A 1C #### [facility] [address] [place] [address] Dr. Alexsander Dickinson Age Gdln ACOG Testing 21-29 [facility] Comment on above: Performed By: #### A 1C #### [facility] [address] [place] [address] Dr. Alexsander Dickinson DIAGNOSIS: Comment [facility] Comment on above: Result Comment: NEGA TIVE FOR INTRAEPITHELIAL LESION OR MALIGNANCY. Performed By: #### A 1C #### [facility] [address] [place] [address] Dr. Alexsander Dickinson Methodology: Comment [facility] Comment on above: Result Comment: This liquid based ThinPrep(R) pap test was screened with the use of an image guided system. Performed By: #### A 1C #### [facility] [address] [place] [address] Dr. Alexsander Dickinson Note: Comment [facility] Comment on [...] . Performed By: #### A 1C #### [facility] [address] [place] [address] Dr. Alexsander Dickinson Performed by: Comment [facility] Comment on above: Result Comment: Cici Clarke, [employer] (ASCP) Performed By: #### A 1C #### [facility] [address] [place] [address] Dr. Alexsander Dickinson Reflex Criteria: Comment [facility] Comment on above: Result Comment: The HPV DNA reflex criteria were not met with this specimen result therefore, no HPV testing was performed. . Performed By: #### A 1C #### [facility] [address] [place] [address] Dr. Alexsander Dickinson Specimen adequacy: Comment Normal [facility] Comment on above: Result Comment: Sati sfactory for evaluation. No endocervical component is identified. Performed By: #### A 1C #### [facility] [address] [place] [address] Dr. Alexsander Dickinson CHLAMYDIA/GONOCOCCUS ZUNILDA (SW AB/URINE/PAPon 11-17-2022 Chlamydia trachomatis, ZUNILDA Negative Normal Negative [facility] Comment on above: Performed By: #### A 1C #### [facility] [address] [place] [address] Dr. Alexsander Dickinson Neisseria gonorrhoeae, ZUNILDA Negative Normal Negative [facility] Comment on above: Performed By: #### A 1C #### [facility] [address] [place] [address] Dr. Alexsander Dickinson VAGINITIS/VAGINOSIS DNA PROB Jose De Jesus 11-16-2022 Reema species Negative Normal Negative [facility] Comment on above: Performed By: #### V AGINT #### [facility] [address] [place] [address] Dr. Alexsander Dickinson Gardnerella vaginalis Negative Normal Negative [facility] Comment on above: Performed By: #### V AGINT #### [facility] [address] [place] [address] Dr. Alexsander Dickinson Trichomonas vaginalis Negative Normal Negative [facility] Comment on above: Performed By: #### V AGINT #### [facility] [address] [place] [address] Dr. Alexsander Dickinson US PREG INCOMPLETE ANATOMYon 11-14-2022 US PREG INCOMPLETE ANATOMY EXAMINATION: US PREG INCOMPLETE ANATOMY HISTORY: screening COMPARISON: No relevant comparison available. FINDINGS: Heart rate: 150 bpm position: Variable Anatomy: 4.8 x 5.8 mm choroid plexus cyst is again identified IMPRESSION: Stable choroid plexus cyst Electronically authenticated by: SEBASTIAN HENRY Date: 2022-11-14 16:19 Normal The [facility] FREE T4on 10-19-2022 Free T4 [Mass/Vol] 0.89 ng/dL Normal 0.76-1.46 [facility] Comment on above: Performed By: #### H BSANS #### [facility] [address], [place] [address] Dr. Alexsander Dickinson TSHon 10-19-2022 TSH 1.303 uIU/mL Normal 0.358-3.740 [facility] Comment on above: Performed By: #### H BSANS #### [facility] [address], [place] [address] Dr. Alexsander Dickinson US PREG ANATOMY SINGLEon [...] DEE GALLEGOS Date: 2022-10-17 20:42 Normal The [facility] AFP MATERNAL FOR SPINA BIFID Aon 10-11-2022 AFP MoM 1.49 Normal [facility] Comment on above: Performed By: #### A FPMAT #### [facility] [address] [address] [address] Alexsander Dickinson AFP Value 60.8 ng/mL Normal [facility] Comment on above: Performed By: #### A FPMAT #### [facility] [address] [address] [address] Alexsander Dickinson AFP, Serum for Spina Bifida Report Normal [facility] Comment on above: Performed By: #### A FPMAT #### [facility] [address] [address] [address] Alexsander Dickinson Comment Comment Normal [facility] Comment on above: Result Comment: Niurka Patricia, Ph.D., [facility] Director . References: Available Upon Request. . Multiples Of Median Cutoffs For AFP Elevations Fonseca 2.5 Black 2.8 IDD 2.0 Twins 4.5 Abbreviation Definitions IDD - Insulin Dep Diabetes OSBR - Open Spina Bifida Risk . For further inquiries contact [facility] at [phone]. . This test was developed and its performance characteristics determined by [employer]. It has not been cleared or approved by the Food and Drug Administration. Performed By: #### A FPMAT #### [facility] [address] [place] [address] Dr. Alexsander Tiwari Age Collection Date 19.4 weeks Normal [facility] Comment on above: Performed By: #### A FPMAT #### [facility] [address] [address] [address] Alexsander Dickinson Gestat, Age Based on NILE Normal [facility] Comment on above: Result Comment: 02/2023 Recalculations are not recommended when gestational dating by LMP and ultrasound are within 10 days. Performed By: #### A FPMAT #### [facility] [address] [place] [address] Dr. Alexsander Dickinson Insulin Dep Diabetes No Normal [facility] Comment on above: Performed By: #### A FPMAT #### [facility] [address] [place] [address] Dr. Alexsander Dickinson Interpretation Comment Normal [facility] Comment on above: Result Comment: [...] Customer Services to discuss available options. The [employer] recommends amniocentesis be offered to women age 35 and older. Performed By: #### A FPMAT #### [facility] [address] [place] [address] Dr. Alexsander Dickinson [age] Normal [facility] Comment on above: Performed By: #### A FPMAT #### [facility] [address] [place] [address] Dr. Alexsander Dickinson Multiple Gestation No Normal [facility] Comment on above: Performed By: #### A FPMAT #### [facility] [address] [place] [address] Dr. Alexsander Dickinson OSBR Risk 1 [place] 2809 Normal [facility] Comment on above: Performed By: #### A FPMAT #### [facility] [address] [place] [address] Dr. Alexsander Dickinson PDF . Normal [facility] Comment on above: Performed By: #### A FPMAT #### [facility] [address] [place] [address] Dr. Alexsander Dickinson Race Normal [facility] Comment on above: Performed By: #### A FPMAT #### [facility] [address] [place] [address] Dr. Alexsander Dickinson Test Results: Negative Normal [facility] Comment on above: Performed By: #### A FPMAT #### [facility] [address] [place] [address] Dr. Alexsander Dickinson GTT 3 HR PREGon 09-29-2022 Glucose [Mass/Vol] 99 mg/dL Normal 74-106 [facility] Comment on above: Performed By: #### A FPMAT #### [facility] [address] [place] [address] Dr. Alexsander Dickinson Glucose [Mass/Vol] 173 mg/dL Normal [facility] Comment on above: Performed By: #### A FPMAT #### [facility] [address] [place] [address] Dr. Alexsander Dickinson Glucose [Mass/Vol] 151 mg/dL Normal [facility] Comment on above: Performed By: #### A FPMAT #### [facility] [address] [place] [address] Dr. Alexsander Dickinson Glucose [Mass/Vol] 76 mg/dL Normal [facility] Comment on above: Performed By: #### A FPMAT #### [facility] [address] [place] [address] Dr. Alexsander Dickinson GLUCOSE - 1HRon 09-20-2022 Glucose [Mass/Vol] 159 mg/dL Critically high 74-106 [facility] Comment on above: Performed By: #### H BSANS #### [facility] [address] [place] [address] Dr. Alexsander Dickinson HEP B SURFACE ANTIGEN SCREEN on 08-17-2022 HBsAg Screen Negative Normal Negative [facility] Comment on above: Performed By: #### H BSANS #### [facility] [address] [place] [address] Dr. Alexsander Dickinson HEPATITIS C VIRUS AB W/ REFL EX QUANTon 08-17-2022 HCV AB <0.1 Normal 0.0-0.9 [facility] Comment on above: Performed By: #### A 1C #### [facility] [address] [place] [address] Dr. Alexsander iDckinson Interpretation: Comment Normal [facility] Comment on above: Result Comment: Nega tive Not infected with HCV, unless recent infection is suspected or other evidence exists to indicate HCV infection. Performed By: #### A 1C #### [facility] [address] [place] [address] Dr. Alexsander Dickinson HIV 1 AND 2 WITH REFLEXon HIV Screen 4th Generation wRfx Non-Reactive Normal Non Reactive The [facility] Comment on above: Result Comment: HIV Negative HIV-1/HIV-2 antibodies and HIV-1 p24 antigen were NOT detected. There is no laboratory evidence of HIV infection. Performed By: #### H IV12 #### [facility] [address] [address] [address] Alexsander Dickinson RPR QUANTon 08-17-2022 Rapid Plasma Reagin, Quant Non-Reactive Normal NonRea<1:1 [facility] Comment on above: Result Comment: Plea se Note: This test does not meet current guidelines for screening and diagnosis of syphilis. This test is intended for following treatment response in patients being treated for syphilis infection. To screen for syphilis infection, a reflex cascade that includes both RPR and a treponema-specific assay should be utilized, such as Treponema pallidum (Syphilis) Screening [place] (962958) or Rapid Plasma Reagin (RPR) Test With Reflex to Quantitative RPR and Confirmatory Treponema pallidum Antibodies (587260). Performed By: #### H BSANS #### [facility] [address] [place] [address] Dr. Alexsander Dickinson RUBELLA AB IGGon 08-17-2022 Rubella Antibodies, IgG 11.90 index Normal Immune >0.99 [facility] Comment on above: Result Comment: Non- immune <0.90 Equivocal 0.90 - 0.99 Immune >0.99 Performed By: #### H BSANS #### [facility] [address] [place] [address] Dr. Alexsander Dickinson CBC AUTO DIFFon 08-16-2022 BASO # 0.1 103/ul Normal 0.0-0.1 [facility] Comment on above: Performed By: #### H BSANS #### [facility] [address] [place] [address] Dr. Alexsander Dickinson Basophils/100 WBC (Bld) 0.6 % Normal 0.2-2.0 [facility] Comment on above: Performed By: #### H BSANS #### [facility] [address] [place] [address] Dr. Alexsander Dickinson EO # 0.1 103/ul Normal 0.0-0.7 [facility] Comment on above: Performed By: #### H BSANS #### [facility] [address] [place] [address] Dr. Alexsander Dickinson Eosinophils/100 WBC (Bld) 0.9 % Normal 0.9-7.0 [facility] Comment on above: Performed By: #### H BSANS #### [facility] [address] [place] [address] Dr. Alexsander Dickinson Erythrocyte distribution width (RBC) [Ratio] 12.9 % Normal 11.0-15.0 [facility] Comment on above: Performed By: #### H BSANS #### [facility] [address] [place] [address] Dr. Alexsander Dickinson Hematocrit (Bld) [Volume fraction] 39.0 % Normal 36.0-48.0 [facility] Comment on above: Performed By: #### H BSANS #### [facility] [address] [place] [address] Dr. Alexsander Dickinson Hemoglobin (Bld) [Mass/Vol] 12.9 g/dL Normal 12.0-16.0 [facility] Comment on above: Performed By: #### H BSANS #### [facility] [address] [place] [address] Dr. Alexsander Dickinson IG # 0.04 10e3/ul Critically high 0.00-0.03 [facility] Comment on above: Performed By: #### H BSANS #### [facility] [address] [place] [address] Dr. Alexsander Dickinson IG % 0.4 % Normal 0.0-0.5 [facility] Comment on above: Performed By: #### H BSANS #### [facility] [address] [place] [address] Dr. Alexsander Dickinson LYMPH # 2.4 103/ul Normal 1.2-3.8 [facility] Comment on above: Performed By: #### H BSANS #### [facility] [address] [address] [address] Alexsander Dickinson Lymphocytes/100 WBC (Bld) 26.3 % Normal 20.5-60.0 [facility] Comment on above: Performed By: #### H BSANS #### [facility] [address] [address] [address] Alexsander Dickinson MANUAL DIFF REQ NO Normal [facility] Comment on above: Performed By: #### H BSANS #### [facility] [address] [address] [address] Alexsander Dickinson MCH (RBC) [Entitic mass] 28.4 pg Normal 26.7-34.0 [facility] Comment on above: Performed By: #### H BSANS #### [facility] [address] [address] [address] Alexsander Dickinson MCHC (RBC) [Mass/Vol] 33.1 g/dL Normal 29.9-35.2 [facility] Comment on above: Performed By: #### H BSANS #### [facility] [address] [address] [address] Alexsander Dickinson MCV (RBC) [Entitic vol] 85.7 fL Normal 81.0-99.0 [facility] Comment on above: Performed By: #### H BSANS #### [facility] [address] [address] [address] Alexsander Dickinson MONO # 0.6 103/ul Normal 0.3-0.8 [facility] Comment on above: Performed By: #### H BSANS #### [facility] [address] [address] [address] Alexsander Dickinson Monocytes/100 WBC (Bld) 6.8 % Normal 1.7-12.0 [facility] Comment on above: Performed By: #### H BSANS #### [facility] [address] [address] [address] Alexsander Dickinson NEUT # 5.8 103/ul Normal 1.4-6.5 [facility] Comment on above: Performed By: #### H BSANS #### [facility] [address] [address] [address] Alexsander Dickinson Neutrophils/100 WBC (Bld) 65.0 % Normal 43.0-75.0 [facility] Comment on above: Performed By: #### H BSANS #### [facility] [address] [address] [address] Alexsander Dickinson Platelet mean volume (Bld) [Entitic vol] 9.9 fL Normal 9.5-13.5 [facility] Comment on above: Performed By: #### H BSANS #### [facility] [address] [address] [address] Alexsander Dickinson PLT 275 103/ul Normal 150-450 [facility] Comment on above: Performed By: #### H BSANS #### [facility] [address] [place] [address] Dr. Alexsander Dickinson RBC 4.55 106/ul Normal 4.20-5.40 [facility] Comment on above: Performed By: #### H BSANS #### [facility] [address] [place] [address] Dr. Alexsander Dickinson WBC 8.9 103/ul Normal 4.0-11.0 [facility] Comment on above: Performed By: #### H BSANS #### [facility] [address] [place] [address] Dr. Alexsander Dickinson CULTURE URINEon 08-16-2022 CULTURE URINE Culture Observations: MODERATE GROWTH OF MIXED GENITAL JOHN. NO POTENTIAL PATHOGENS SEEN. Normal [facility] Comment on above: Performed By: #### A FPMAT #### [facility] [address] [place] [address] Dr. Alexsander Dickinson GLYCOHEMOGLOBIN A1Con 2021 ADA RECOMMENDATION SEE BELOW Normal [facility] Comment on above: Result Comment: ADA RECOMMENDED LIMIT 4.0 - 6.0 ADA THERAPEUTIC TARGET < 7.0 ACTION SUGGESTED > 7.0 Performed By: #### A 1C #### [facility] [address] [place] [address] Dr. Alexsander Dickinson Glucose [Mass/Vol] 111 mg/dL Normal [facility] Comment on above: Performed By: #### A 1C #### [facility] [address] [address] [address] Alexsander Dickinson HbA1c (Bld) [Mass fraction] 5.5 % Normal 4.5-6.2 [facility] Comment on above: Performed By: #### A 1C #### [facility] [address] [address] [address] Alexsander Dickinson LATRELL BOX TEST PT SEND OUTo n 08-16-2022 SENT TO REF LAB 08/16/2022 Normal [facility] Comment on above: Performed By: #### N BOX #### [facility] [address] [address] [address] Alexsander Dickinson TYPE AND SCREENon 08-16-2022 TYPE AND SCREEN Negative Normal [facility] Comment on above: Performed By: #### A FPMAT #### [facility] [address] [address] [address] Alexsander Dickinson US PREG TVon 07-21-2022 [...] DEE GALLEGOS Date: 2022-07-20 22:25 Normal [facility] US PREG TVon 07-13-2022 US PREG TV EXAMINATION: US PREG TV HISTORY: Missed period COMPARISON: 03/09/2022 FINDINGS: Fonseca intrauterine gestation Gestational sac: 1.7 cm, 6 weeks 2 days Yolk sac: 1.7 mm [place]-rump length: 5.8 mm, 6 weeks 3 days Heart rate: 125 bpm Uterus is normal in appearance, anteverted, retroflexed The ovaries are normal in appearance. Cervix: Closed, 3.9 cm small amount of fluid in the endocervical canal IMPRESSION: Viable fonseca intrauterine gestation measuring 6 weeks 3 days Electronically authenticated by: SEBASTIAN HENRY Date: 2022-07-13 17:05 Normal [facility] Coding Summaryon 03-17-2022 Coding Summary [employer] 64 UlkrniabDHj3sSr+PGhl YWQ+GJ6BCGNsI55tjIRy kJ0UG3bMOY4YAGILXXWB TS8JLG5hjYG8NZfbD2Sa biAv ItmpiSDdMP48BOt2FJU7 lQgvVLnftY8jxASnD2z4 JtYdHU78yV85IKonHFMk PdL4NeCtkkcfaQZl E2leFvAdoHPuBjj+PHRh YmxlIHdpZHRoPScxMDAl LbRafKrcJX3iXu4hFVFo LWNvbGxhcHNlOiBj t4avSFJmWZrkUA0hbTcb G9HdiMF8NDZny4r7Qu70 dHI+OAZoKSY8jKhrWAex h131YkKtw7pbWZH4 lQNgHZvfXEG0H35ie0I7 DCPnXXIzWKB2uXO8sA1i kAmssvhzD1DrgVUjLdA6 FUK2mRMhzL1dtLng tydtiB9kTeh+Y90NUT9N WTVFDQ6KGoc4N6XsTadc dHI+RA22DECbEH26cRIg zWStv5mbcCu3VgYq DTMdFZR5pZcdUMjep6Pn LDCdK83udRXol7I5VQKy fHvzaUZiPyRgpBT4jK3t LJydwuvtf3zniglx Rfvgv6clvk02mH45E04n PNwkGXAdUSK0HDEsJTOg gKisog3flC7oDo3+IDxj t9vwo5vyqWi4RmUt MSDucaQgcLzaUDP5o9Sw Ei12E1EakCqrr0DqFcl1 av55bQQza5U8tXQ7PAyv HTYzfX5ePWagOgR6 VLPvUoAtaX94eFAsQWcs Sd6pgZhoxHymLQ6wCMWa xvxtMNCthK8rYMTbmAWt dOwxHS3oXDXzufqh w200IkKwISW6AIVzkJUf O2WgnN7sLxEfVLFqIFVe I5VdnRRlQCbxO747EWqq MiG0RLZerqNuZ9Ln ZRCcjMhmEoM3g9Q0Gh0G x6ZngkonTNE3BMpnNWE5 MjBfZrVkZyC3L2GkQlf6 NRQwmKfxNW3pK7Bu JHVahlzaoczucYP6UAAi LAMjpS96hEZvGWfjIt5j r6R1q147ZMFfPPIfhX29 Nr3vdBhgJGBjrNXD xN8qzgqch5kroemkNvTt YIToFBq8TPf5TBRuqPcx PhUrGBF9WlX8WCS3eJXh oR1gkTuqktiebR1s Oyc+Z50hoA2gVEM9SDR5 wepeLJKfudPvDL34HY01 Y2HtSfrlgUUdnRF+PGRp zgOevFvsFD5gNtRi z3eyu0ZiMFjzQ1UtRYTg EFgaOkq7XSUcFLS8sZX0 yP2yXOAjUWmha0Q5uHB2 L0SklxVosm0cs0dg USHpKQheL27igUEic2G0 RQDwqSJ4UXBdlCubUhVy kZ84Zis+IMMwbHaqe5Zv Rfbie4wni1mahMm9 IjMwJSIgdmFsaWduPSJ0 y1TjAn61G84iMCfmUDHv NRJeKIKeAVYsyUpzoi8t jL0eLp4+PGNvbCB3 zPJ9xX2kOEBhCeR1AKds O959MmHpcFDeUnbcm3jj z2mqbQr5YjVyIAYijhRu zDpbYAK1u3YfFo13 U68xBEedZRNbZUXzEYXo CVOklPfekl8znK8aDe7+ KQ9sa9arzf80hT94uYF+ EDGhJWD1wCopMGgx HCKqsZ8xEOyqFuY9KFJw IkYhvZ35xGNbPDjjSu3f fTwpbQusQQ2rYYIakulz x407MeYpj3vwYZQs sSEfKXfwAYI2N95ud1R6 SVCtSQJbJJZ4yML5aI4g bGlnbjogbGVmdDsgdmVy sCkxYEytIRdxP275 IHRvcDsnPlBhdGllbnQg DyAbSUd4N6BkGjl5NNNg hXurTI8clVUxDPziKe4w mArvkAkkHM0xRUZz rjfuo934QyLxm1coBIIz tZQpPIsaOQU2C67fq5Y4 YDRuHTZmOLV9oDC8jM9n bGlnbjogbGVmdDsg udNkiHfvXXgjSKzrV574 IHRvcDsnPkJpcnRoIERh pDE8IR06GC89aDTca2Z7 uMJ0F9DlUEPyaruh asfovAS2CLDkRYPhbY40 So4dtYnvSy5jMACkAWD7 HNAzkPFkY6ViwY0mMvLs NCOcMGRxX6BlnBQc IJakG776RRjfKaM2RTMb zpNuJ0GgRNDvqZquBvF2 z3E9Xd3BT1V0SZ36LM37 nJIwf5W2sYL4C3Wp WDKeqextlhrrnVF6LEDz CBVmmW42Yi4wvIayEs0c BGGwMVX0EMJvvPFnR8Wq yH4dWhSyYTAuWYRf D4NhqYDzFLmvD244RRwb YvL0VMZpuqFeF7ZrCTIz eYtuQeK7x0W0Ue5TGXb3 HC41GC86aLJml7I6 uGV5S5FyLFRobptrpyhs nXV2HEEbSNYraR40Pp1e oIpjEi8nPTKxDED2SLKs cSLzX6YqpC2sOlCn UMLgQRCwZ1BkiSObJMjd X387IFaaWgT2ZCMyxfEn V7FtVDKwuJzvByA4z1B7 Zg1XWZKrHR63HQZ9 xBU2JL86JJ57P6DoBbol dGFibGU+PHRhYmxlIHdp ZHRoPScxMDAlJyBzdHls PM6wGp6rXDIpOUKw dLsuzBHmOkPcx5cjIMMm YUavEY4lqOilE0AfyEQ1 KETnb8j0Hs17P72lN6Ka dXA+DABsePZ5dAM1 fD7lAaVrXyP4YCvbW325 BuNqeGNnNsqey1mcc8ad aXq8VbP6YWDsksXegDol TFK6o9WkIj74J46a IHdpZHRoPSIxNSUiIHZh jPfdcq8pfV1yYi1+PGNv tAN6vED2fW6wQzAtOvR1 IMfsK809VlMzlGMw Arjju1spk9mnaWo9DzJx DGBhwtAgqYwmDTZ1f9Nn It04K7WjnIwrl4PhQja9 kb87dRNse7Q7mHK1 M0QaTQIxxsydrEHrxRky DL9qADVwhoxxMRLifO2j YDZlK7r0OmGsHsO9FOjl L9TsaaM2AEYvqXTp CWbcSZF5G24lq0Z5GMLz MZMiPRZ0bYW0tB4qpJuc bjogbGVmdDsgdmVydGlj UCxdNNuwB628FFCq xVojMCUfqR2lBJCosKFk gVcyDP9iWXJicrmzXuJO TExJTlMsIEFMWVNTQSBS TFQLFRg9L5QtYwc1 FLFicXjdLF4efFRjEWoc Dv8huBydgEriGV8sLLMr thybFAEpmL7nFZSumIPr yZdeMK7zOAQesblp y391ZeScZCJ0HILmyVLf B3BjrW3fTiOqYTLrSHMa P5IvySFwFNblL591LLvm SrU4LOOwanRbI4Bu WCLfbXmpYyM3g6M7Wc9h IM2bCz6sVNs8AG10PF65 oGPaq4D4cOC3K4FiSACz qatvvvdblDB7BULq BLPdwO44cLQeKQmnNf8w w5R9k725WHAhXHOgcG61 Gg1znXhtDNHjbDLUvJ0n tmmlj3ukraqkUbKv AAQgREq0TCg7EOEgqZjf GlBgRHR8SeH5SJS0kWCi qL7onKckhmcbqW1bJat+ KmaxXAAsooI2B9Xb Qmw6CSZvdKbbXV8lhXVc UAvmDb6rcKpoySzmGI0v YDAeieofCYNnjP6dKUAz rQGyvXeiZO0xECRk dopxl104JsPtJYV8UYWd xAAdH4PqhV2nQjXeGMIp FTJrS8NalXVmJRgyY287 YNerTzU8YTBdtpVf K4ZiGOPkzRjaEzI3n5N0 Qt3NYH0NDBI2K4HaPzu4 EAFzpTogTB3erOHzOZzq Lq5dnPsyxXaqCI1k IEAktnbhUNUzbY5sEDGo oWPheOktZN8fMVUhrmcl r436TdFbZBM0EDLxxUCk U4EloZ5jIiLrPJIo UHNrB7IaaDMkFLjqL090 MQjgRmM7REItlqMvG4Ol YCWewHlmPzH1j7L6Qn6T UDwvdGQ+VC67zs57 M8EtHtarKye4XAWkMBD0 tYM7xC9gJKCaSOknm1D2 hGI0D6QofcEjyl8bd3ir PFKhBJuyE40waIGm x3P8AAYokTL2WDGwhMmu TvKyyT99Ivs+PGNvbGdy l6YdEpaou0uus7ygwXm6 IjMwJSIgdmFsaWdu PUS5m9WbSf08D90fHAcy ZHRoPSIzMCUiIHZhbGln pa6awG9xSk8+PGNvbCB3 vRJ7wN4cWoHeYnP8 CXyjQ317SoBbdANyDikd e4ahh2uruBb7TuNxAEMc deFptSzlCBJ4w3LzGn81 W1VyeSgxu7XeZft0 ne24bVGsh5R8kBK4L1Tm NWWegworsEYjrWvfXM6n NHZziabhJYWbgK1nJBNr Y2r6BjXkDmE1SCed V7JklpX9DSFalOMbTFOw cKMAvC5uazbgz4rozmev OoEvDDPwTVu0IRk8GSBo sDhmUhYmWAQ6LiO7 UXA9fFZpgH9kwVtcngkr xN1eHsg+DTe5q4fnjHQe NG4kdXS3MR20ZL40fYUo i2E6vZL4A7LdHHLa xatpmuwwpPR1HJCxJFSz rY65Hv6npSbkRb2hCXMp FWP9YSEkdMXqQ1PhwB7e DrSxUEXyBCVxQ6Yv qLFjOXxjY887HVxdVuU1 FFDagmEbG9HjYFJkbAmz CgY1b3R9Jg6JCK01TO78 MG71pHKkc4S5iES4 W8JaFDCtugzlnxymyRH2 DFQiAYEygR22Lo6xiOqc Ij6zBKVsNVU1TXGvlHGn Z9BpcZ7fIeWsGFZv VGStR8XjqDVgPEzjG375 VJiyLqB1YPRhjnFgA9Vm PXNdmAewXfP3w8R8Fb8D Vg18WS08SX67yENj r4R3xNB3H7HwZCShineb vjkqhSG4WYNyKVNbmW43 Zi4vcUtwIl7sFASbHQH9 JLOibJTgC5UemQ2r TpOtPHNnORLgY2IbsZMv OLygX169VVulJtL8VYIq ydLbL9LrUKMcjMaeVsT2 i5S3Rz2KBBadvdq0 F0VrKnvskML+SJ10AZTd TR93yBOvlQEfv9aqxGe4 NxPjUNWeDDU9mQxtDXdz q2TdWTOrD74onUSf c2U (more content not included)... [facility] Coding Summary HTMLBase 64 WtzlvjmrYJg6uWk+PGhl YWQ+BV3VQHQcM01mpURj fU0WO7rRLD6LTZHGEFGP SH2EVV5ybOY7ZMqyV2Iy biAv ZnjgnHEsMS32XDu2OXZ7 uKekKShasU3zlKJqH2d8 EeEjXE46nH12NBxmJHCb WkE3WuQqcrmesHHd E5koAsKmtIQiChu+PHRh YmxlIHdpZHRoPScxMDAl XvEziUowXK7qTw7gUKVv LWNvbGxhcHNlOiBj b3bbSLBtYDshVJ8kqHik C9CbcIR1SFVyk0r8Mn58 dHI+BVVeRPI7iZdpUWqu m325DiOpw0ngEQF6 gPPaRAqkXWD8I01ph2B2 FUZsOYHxRBP3vMG4aX5z jEsmmzsdD9TveDKvVjP9 CKG7zFSngM5aeQtq cqqqlE1fRsu+O84SON0Z IRSUZJ3PNzz0J8JbQydz dHI+KX06QFYvLK59uJJz dZSqv8lpkCf4ZvNo YCMqMNZ4rCdiZZjvx3Bg EDZvR12gmCPoa4B7HYZh bTvytTKyVvMxhWH3jU9g CFmcchyla8iyrbfy Ubmwq9ejph95rU49S44a ORfzGYXjPAB5ABXeXZGu oAuyya9geQ2rGc5+IDxj v7fiv3ejoJb4ObEx CLEospCoyMfrWYJ9k3Ai Ri02O2FywTwle1TrXab9 sq45fTLrj0R0aEL3HJxq IIHzwC6tWVknAgY8 DUQbWcSggL12vSTfIXqs Yh1frYsklEwvEQ6qCRHs oxmzDLShiY6tSUTdpIVi sKhyRC8aGSCmmgrb w438TkHkKXK7GVBmiMBa P4YfgE6eLyWkJCWlDBTl P8UpeBLhVZulU783PAhe DmG8SYEhhhIlA5Vk PVQnlTkdBeM4x9Z6Da3T e4KsskmbZNV3AZdpNRO5 PpXjZhUzJzZ3I6FbKno6 MHOfcOzlYF6tO4Fn ZDHioqqiwoqjkNA3SECh XLTidX28wILnJNssIi6p w8K2o093CQXjVNOquM00 Kn7ppBydKPLmwYEM uM4zmkltg8bnjdybEvJr NOLdEZt1SHf4GYRgnAsx FeCnPQE1OvX1XMY5eKYy tQ6erCxikqykuU8q Oyc+P74nvD4vHXY4ZEZ1 jblnPBCundMsID74TO48 C6GzZluefAQdbRT+PGRp eyObgVrxOL1gInMj p8vtb6PoRBwhH5ViQVFe CIjtQwj9OHTpLFS7cDG4 oO7oSXVvTSrff2R2aYK4 D8QsasYixx3cg4xd ILExUUsjC93aaPRgo0D9 CAKbdHK9HWCueDpoDkLb vF75Qfc+QNEnfTszd9Hz Ojezg9ohg5rgvKu4 IjMwJSIgdmFsaWduPSJ0 t9DzDb96O98gEKjuPSEc FKIeIWJxIIBgcLfpob5u iM6tOs3+PGNvbCB3 gYE5gF8yOSBoYgY2VMxd C296XyBirGIlMrkhl7kt o4cdnVm5GnQaSGLivyBw gWcsGPF6j6JqWu84 Y43yEEhkPLCrQBTsHGEm YRJpeVgctx2ilC0oFv5+ GT9lu3djrl94cJ10wSG+ NRHlJEY9fXztSPkj FIVynH5oGTqmKjI1BUFw VbPnqI53nKHiXVbnXt5c aRximWivXZ1kNNCdbrnw o955SuNxw8peLOSw fBLgLEopRWL8H50eq1H1 FHUjAXVxQUV2mUW9eM0c bGlnbjogbGVmdDsgdmVy yPnfQXdvKCyhX422 IHRvcDsnPlBhdGllbnQg FhLxXFa6Y8WkKwp5HIFn fRbsTD0xiVDlTNmsUw8j nLtgwZcjVP3wPALt ziwcj326GcRoo4kdRXUq mEQmUBacKIF2D02gn2J0 KACeUVMgXJX9sSH5vH4y bGlnbjogbGVmdDsg qiBllXvaCYhvUYneK715 IHRvcDsnPkJpcnRoIERh nJV0TH68BC71mBTvk0A7 bNX7M9VeDCWrlglx atbngAN6BHIhQUWxlP13 Em7veJuxSo0iDSGuMXB1 LRXwiQTpA8LjlU4kKvEl HCGfAGUnP8UtzXZi ZXvvN415PZevBdG0WNYe vuMcA8XaTMUlaAvvDeP6 i9Q3Pb1CD8T4BG56CE56 sOOek0W3aSU8G8Ds DIVezejpeesqpPY6CGIp OVPfrR48Ar4dvQcwBc0m MQKpBJF1QQNceAMmH4Bs nT2eLjHeCNYqIQPr N0CniVZpIOaxX149NZqa DvX0UUTbbtLlJ1JnSITb uSjmEuM0u1V3Fk7ZPEk0 EJ88MH77tFEil2U2 rNJ6I1TgMVAjrijaaele qWO9JVSnXKUgiF00Co3l mSwqIw5kUPGyKXS7AKNe qQHpD1HlgY8qSfYa JQPvVCVmD2TgqXBuZFzg T297MIeeVmT8STCuylQw R7ImDMCkcKosDpE9w2O0 Ra9HVPCuBB34QNT2 lYB9HT94FN47C3OeKcuv dGFibGU+PHRhYmxlIHdp ZHRoPScxMDAlJyBzdHls CC6sBl3wXOBxERDx nHvgcKXnGaAax3zdJXTa HSwtMX7xwIogP6YyyGX6 DAHci0m0Vn74U03dC9Aa dXA+XLZnwPH6lHB4 iT4pExZzVhR5ADkiU315 XdLisGArMhxik8sya0en hYp9OnF0NPMszgFndOnh DPI9g4WqEw82Z18k IHdpZHRoPSIxNSUiIHZh dUghey4ubY6jNr7+PGNv dVC6kYD5wG5iPlRsXvH6 STnjZ272QcWmvMLi Vjhhv1ckj3cybVj4CkOg ULQgltEofPsiGOJ3t3Mk Xa78J9SxlZpow5MeXpz5 cy72iTUrk7V1zZN4 Z1IsEZRsidbjpNPygIsu WB5fBNVpmsihVNTtfD7l QATlH3b2GjFtStS0IKpm W4WhdlN6GTPaaZFm LEytJUH7L08ew9R2THPq IQFoCNQ9zRT4xC6jpZyv bjogbGVmdDsgdmVydGlj KWuhMSifF154HVCh cVzdAZVjfM9oXQFuiVXu eNeuVB3tIZHeoqvyFlZF TExJTlMsIEFMWVNTQSBS MWDQLRp0X1BiPwx3 QUPzxZsoIA1xxANkTEll Jm4qhNaquMpbQB0xHKLh zdojWQStlB8rLJZekJNi sLytRR8qABYpdllz c919ZyIlSOT9BPSpxJAf I4WvkH2vOqUfYOMaTTJd M2IerBFlKHlnP964UFne IuN1JBCzrnUhU4Zi KYFbhHvwZlA7a5V2Hb7w RV4fYr0yBLf6UE16PO51 jSAsb5F7wYD6W9GdTYIt buhgpyvhlKS9FVZo EQJblG09wYIoAMxcGe7z l6I1c171FOIrIAReaN98 Hp9mdOpjKFXndZEKgC7k newgd6xhnoovHwSa YLLkMOp6NXh9XYOaqZph OdDkNRU0UhU5PQP8kPGv yH3lbLuikxptlW6dJbz+ RpzgCXWevaL3G1Sk Ivh8QVJcwIewWR6nsVTu KPcdPn7adRnvaOrbDN0t PMZfstvoUVQnbP2dVBFo tWZpvPkoHW6bTFIw smeip234IsEaMKT3CZUx jLAcF0ZouF2eXuFqJNFu WSOhI4TczXIaQAkaU365 NCibClO9GMYvdnFw N1FtBWXpmWznVuZ8e8U0 Ka6HIJ6CNSP8L0QaInw8 GWYcoPhyTW9ljHJdPNkk Os0rdSnnrWyxID8e RCApthxgTSGnbN5wEVZw eCGxzDoiTR3pWDOujybr f611KxWyJEV6DEIivDCx C4QgvE6mQnIhNEIq WLPvS7PdfBJzJDfmE650 STnuErL3KFPtupQjU6Nn ACWroSqzRzC1g3H1Ys7I sGPsB6KwS2r7O9Hi PjwvdHI+JZ05RWKoPA63 pQNbfRQkm7hicRe3AoTu ZIDaXIL0wNhcLRlal5Ar LVPsM56geELxa3S0 IGNvbGxhcHNlOyBlbXB0 rS5fQBqdysajq3fhpxzq Jpxzc1vpdx64sM13Q18r IHdpZHRoPSIzMCUi GDNmeOmlak9ppU9qJa2+ OLDroSQ0aYB7wO5sHkQs IrE7URjtT376HaBhdQQa Bwoac9wsz4ygpFw8 IjIwJSIgdmFsaWduPSJ0 v9OeHz53Z99zPGttSDCu AIPjHYCnLVRybXzjls8m bS4zIp7+YX9xo5hp im64uU17rUJ+PHRkIHN0 fFtgHNoyLWNbsY9lTIef IbR4PHYoJhFsyE33qNXv WQxhBo3gnJcitCco TZ8qQDWqqfieo359SgBj y7lyYZPbhYLkCYmjQCV1 U51lc4C0PJKrVLFdGJA4 dSC1zD3jzFvrdhjp bGVmdDsgdmVydGljYWwt USeyI123OBHheCccZlZc nLRrC6bslrSWYP5kFsek dGQ+PIPkHMH8qVln IEgnCYDooS2wOYRuE4i5 UoQxHeX8HHbiD7NrhjG4 IQJlpAHzCRWuhMNPzZ2w qkbmd1mkjmomMpDo KHTyNBz0OHn4OGWllSyi QfDbYMI2JyV1ATD3vSMg zP9yiZskmiehmH1sZhp+ RklOOjwvdGQ+PHRk HYG3lRlqBWdqVKRfsS2l QIShW1s2VgFeVaN8PHzx N9SjzgT5NQCodERqROZt mTVGbM3cwkvuu8br lvdiVhZyDOWoBLi4KNt7 INMudFwaZfVxJYZ7SlD1 JME5yXOszQ8ayVplrhtz cH4sNay+TVJOOjwv dGQ+CLRtVSN5nCfjDEfl MJOhwC8yOQKkS1v4HhBw RxV5HGchH9SpsuR8HKNy nSNsIOIqvJZQyR5y tmenk0dwpydbDsFeENAm ATt5EVw9SQRhjPysTrAj FLD4GlA2TDT4lIKfbI9i dNkvhxuqjN3bPjg+ WKL1UYN0SG47OV92R9Qy PjwvdGFibGU+PHRhYmxl IHdpZHRoPScxMDAlJyBz rEyzRU0fNi4aOWXv LWN (more content not included)... Normal [facility] C Urineon 03-11-2022 C Urine Urine Culture ordered as a result of parameters set on specific urine dip and urine microsopic results. >3 Organisms Consistent with Contamination Recollection suggested. Normal [facility] Comment on above: Performed By: #### 1 1091001, 85558578, 3855221, 5458575948, 60930505, 2757696, 1394072295, 6858401993, 9201884310, 8001279 #### [facility] (DEFAULT) [address] [place] [address] .Auto Diff 03-09-2022 Auto Baca % 8 % Normal 11-09 [facility] Comment on above: Performed By: #### 1 [id number], 44470286, 1903172, 2419945176, 93985337, 3900916, 1470145962, 5003345820, 0429161471, 7768602 #### [facility] (DEFAULT) [address] [place] [address] Baso Abs# 0.0 x10 Normal 0.0-0.2 [facility] Comment on above: Performed By: #### 1 6236781, 11704031, 6416033, 9714716945, 28875198, 7233116, 0328800421, 1883936846, 7142245241, 7059129 #### [facility] (DEFAULT) [address] [place] [address] 27914 Basophils/100 WBC (Bld) 0.3 % Normal 0.2-2.0 [facility] Comment on above: Performed By: #### 1 7083917, 72654740, 2229257, 8281113261, 29496045, 0545674, 2093605230, 3997120406, 8381078486, 8605254 #### [facility] (DEFAULT) [address] [place] [address] 88354 Eos Abs# 0.1 x10 Normal 0.0-0.4 [facility] Comment on above: Performed By: #### 1 1799652, 67796337, 7458288, 4078712674, 51753616, 6447769, 5134993579, 2713182613, 6381005420, 0998624 #### [facility] (DEFAULT) [address] [place] [address] 75458 Eosinophils/100 WBC (Bld) 1.0 % Normal 0.9-4.0 [facility] Comment on above: Performed By: #### 1 7189399, 82944203, 0225191, 5306226540, 71440674, 9604814, 3873015859, 1533507492, 5661344326, 7381063 #### [facility] (DEFAULT) [address] [place] [address] 71479 Lymph Abs# 2.0 x10 Normal 1.3-2.9 [facility] Comment on above: Performed By: #### 1 3215924, 79475102, 0445088, 2297912579, 99146544, 3203400, 3268227499, 9311771371, 0649192818, 1961357 #### [facility] (DEFAULT) [address] [place] [address] 99430 Lymphocytes/100 WBC (Bld) 35 % Normal 14-48 [facility] Comment on above: Performed By: #### 1 0889902, 00339876, 7627236, 3274871436, 58160950, 1562861, 6215261973, 3771283471, 5611489532, 0746873 #### [facility] (DEFAULT) [address] [place] [address] 60125 Baca Abs# 0.5 x10 Normal 0.0-0.8 [facility] Comment on above: Performed By: #### 1 5845607, 62851083, 0549023, 5604036863, 81806172, 6419541, 0106496729, 2605838738, 8956533261, 5993449 #### [facility] (DEFAULT) [address] [place] [address] 10636 Neut Abs# 3.2 x10 Normal 1.5-9.2 [facility] Comment on above: Performed By: #### 1 8885092, 98664200, 4987029, 6879750501, 27501756, 2787120, 6637160024, 6194105743, 1829315944, 6114301 #### [facility] (DEFAULT) [address] [place] [address] Neutrophils/100 WBC (Bld) 55 % Normal 44-88 [facility] Comment on above: Performed By: #### 1 3369596, 14934420, 4642645, 8002904773, 52255438, 0373742, 7081101147, 4311692102, 5368489033, 1289403 #### [facility] (DEFAULT) [address] [place] [address] ABORhon 03-09-2022 ABO and Rh group Nom (Bld) Hx Check: Not Found Anti-A: 4+ Anti-B: 0 Anti-D: 4+ DCon: 0 A1: mf+ B: 4+ ABORh Interp: A POS Invalid Interpretation Code [facility] Comment on above: Performed By: #### 1 2378146, 90808994, 6527120, 4376082784, 19202491, 9089852, 2791483770, 5551047143, 4156658131, 7753883 #### [facility] (DEFAULT) [address] [place] [address] 58841 ABORh Retypeon 03-09-2022 ABO and Rh group Nom (Bld) Ordered by Discern. Anti-A: 4+ Anti-B: 0 Anti-D: 4+ DCon: 0 A1: mf+ B: 4+ ABORh Retype: A POS Invalid Interpretation Code [facility] Comment on above: Performed By: #### 1 3482048, 20151223, 0333417, 9994969109, 75939971, 3947442, 8533684749, 1413704601, 4738984360, 1760275 ####[facility] (DEFAULT)[address] [place] [address] 73954 CBC w/ Auto Diffon Erythrocyte distribution width (RBC) [Ratio] 13.3 % Normal 11.5-15.0 [facility] Comment on above: Performed By: #### 1 2193076, 10749604, 0129054, 4282082311, 21511269, 8281157, 9498367771, 9964289625, 9767843321, 2743187 #### [facility] (DEFAULT) [address] [place] [address] 71098 Hematocrit (Bld) [Volume fraction] 43.5 % High 33.7-40.4 [facility] Comment on above: Performed By: #### 1 4711703, 99199931, 7269339, 4660874783, 58518696, 3432580, 9393232615, 4451362545, 3445501071, 3729482 #### [facility] (DEFAULT) [address] [place] [address] 96267 Hemoglobin (Bld) [Mass/Vol] 14.1 g/dL Normal 11.3-15.9 [facility] Comment on above: Performed By: #### 1 4939350, 91847538, 9833863, 0420412868, 54488066, 3365478, 7659878983, 8096223021, 1302332185, 1011709 #### [facility] (DEFAULT) [address] [place] [address] 08023 Instr WBC 5.7 x10 Invalid Interpretation Code [facility] Comment on above: Performed By: #### 1 2336644, 62022764, 2769484, 3388583475, 98088992, 3382406, 3562325350, 5554722342, 6937251641, 5567226 #### [facility] (DEFAULT) [address] [place] [address] 60241 Man Diff? Auto Normal [facility] Comment on above: Performed By: #### 1 0694497, 40940643, 6573682, 9166667304, 04451627, 2472967, 6672602079, 1992035594, 6119468901, 5514519 #### [facility] (DEFAULT) [address] [place] [address] 66415 MCH (RBC) [Entitic mass] 28 pg Normal 24-34 [facility] Comment on above: Performed By: #### 1 3677959, 62511643, 0675631, 4804883168, 00508830, 4380153, 1996998059, 0342230247, 5463930122, 1167350 #### [facility] (DEFAULT) [address] [place] [address] 94013 MCHC (RBC) [Mass/Vol] 32 g/dL Normal 26-37 [facility] Comment on above: Performed By: #### 1 1903945, 00099001, 8400863, 4403949468, 22637540, 8639192, 7685878183, 5625781187, 9710251984, 7288102 #### [facility] (DEFAULT) [address] [place] [address] 46678 MCV (RBC) [Entitic vol] 86 fL Normal 81-100 [facility] Comment on above: Performed By: #### 1 8108477, 63566129, 0805045, 0930987146, 54670773, 0466563, 9941066961, 4856082673, 1919276810, 8287821 #### [facility] (DEFAULT) [address] [place] [address] 51304 Platelet 324 x10 Normal 138-427 [facility] Comment on above: Performed By: #### 1 2519638, 54476428, 5277768, 1994386911, 81723772, 9603890, 9042172818, 1453018546, 4787808129, 0602704 #### [facility] (DEFAULT) [address] [place] [address] 50201 Platelet mean volume (Bld) [Entitic vol] 9.8 fL Normal 6.3-10.2 [facility] Comment on above: Performed By: #### 1 4740505, 53121870, 7648504, 6595299526, 19485339, 3409660, 6867253379, 0117370919, 1331500478, 4297220 #### [facility] (DEFAULT) [address] [place] [address] 23780 RBC 5.07 x10 Normal 3.70-5.30 [facility] Comment on above: Performed By: #### 1 1057042, 41076105, 9371572, 2509450489, 83037930, 2227874, 1949553501, 3231800963, 8553341223, 6140090 #### [facility] (DEFAULT) [address] [place] [address] 24316 WBC 5.7 x10 Normal 3.5-10.5 [facility] Comment on above: Performed By: #### 1 4868760, 29246572, 8525820, 0515864788, 60009482, 8967884, 5429655320, 7112780022, 8032592218, 7512716 #### [facility] (DEFAULT) [address] [place] [address] 02184 CMP Standardon 03-09-2022 eGFR Non AA >60 Invalid Interpretation Code [facility] Comment on above: Performed By: #### 1 5216884, 01674336, 1802981, 2416693800, 62080993, 2763986, 8462540666, 9817587908, 9914665938, 3796232 #### [facility] (DEFAULT) [address] [place] [address] 74933 eGFR AA >60 Invalid Interpretation Code [facility] Comment on above: Result Comment: [employer] Machine susie Kidney disease could be indicated at eGFRs of less than 60 ml/min/1.73m2. Kidney Failure is indicated at less than 15 ml/min/1.73m2 Performed By: #### 1 0102936, 65757967, 3193056, 5058842024, 32990069, 3788025, 9539996196, 3509338655, 3949595675, 1499769 #### [facility] (DEFAULT) [address] [place] [address] 94233 Albumin [Mass/Vol] 4.5 g/dL Normal 3.5-5.0 [facility] Comment on above: Performed By: #### 1 3366118, 30090180, 1215305, 6105588850, 10762823, 3748236, 0657761539, 7625431952, 3446403068, 0762000 #### [facility] (DEFAULT) [address] [place] [address] 40872 Albumin/Globulin [Mass ratio] 1.2 {ratio} Low 1.4-2.6 [facility] Comment on above: Performed By: #### 1 7571697, 38750891, 1143769, 5786261912, 87180505, 6753674, 5253697785, 0888727491, 4581041509, 4644578 #### [facility] (DEFAULT) [address] [place] [address] 01223 Alk Phos 52 IU/L Normal 32-91 [facility] Comment on above: Performed By: #### 1 4934711, 57106894, 3633702, 8606524850, 01517571, 9243830, 3478877719, 9808105806, 6713492074, 9389554 #### [facility] (DEFAULT) [address] [place] [address] 99717 ALT [Catalytic activity/Vol] 37.0 U/L Normal 14.0-54.0 [facility] Comment on above: Performed By: #### 1 3471312, 09768610, 2100391, 0857225973, 63154654, 4583812, 9891414197, 2816561253, 4773057403, 8091893 #### [facility] (DEFAULT) [address] [place] [address] 93372 Anion gap [Moles/Vol] 18.0 mmol/L Normal 5.0-19.0 [facility] Comment on above: Performed By: #### 1 3820918, 45644633, 3732515, 2475151499, 98112862, 9957878, 7725020358, 3974974544, 1245784868, 2153499 #### [facility] (DEFAULT) [address] [place] [address] 29195 AST [Catalytic activity/Vol] 29 U/L Normal 15-41 [facility] Comment on above: Performed By: #### 1 2382909, 43180332, 5966591, 8503549596, 30956741, 4240222, 3457612124, 0989589194, 9057525836, 8826314 #### [facility] (DEFAULT) [address] [place] [address] 27189 Bili Total 0.7 mg/dL Normal 0.3-1.2 [facility] Comment on above: Performed By: #### 1 9845636, 39916561, 5420238, 4822302345, 92869418, 9776288, 1167401579, 3871566652, 3512084147, 0782155 #### [facility] (DEFAULT) [address] [place] [address] 03317 Calcium [Mass/Vol] 9.4 mg/dL Normal 8.9-10.3 [facility] Comment on above: Performed By: #### 1 0986416, 27536873, 5890945, 5302470405, 68291098, 4542504, 0606553322, 5457125047, 0416424597, 8660376 #### [facility] (DEFAULT) [address] [place] [address] 73660 Chloride [Moles/Vol] 100 mmol/L Low 101-111 [facility] Comment on above: Performed By: #### 1 6865930, 84190298, 2930420, 9710224211, 34230101, 8992660, 5809278724, 6187796314, 0239201335, 5432859 #### [facility] (DEFAULT) [address] [place] [address] 20634 CO2 [Moles/Vol] 24 mmol/L Normal 21-32 [facility] Comment on above: Performed By: #### 1 2452287, 91454478, 3548327, 9918167368, 53047226, 9746590, 5122506874, 9931075028, 6514123382, 5950045 #### [facility] (DEFAULT) [address] [place] [address] 02137 Creatinine [Mass/Vol] 0.75 mg/dL Normal 0.60-1.30 [facility] Comment on above: Performed By: #### 1 5349508, 97512978, 6237987, 4527733574, 61300886, 7874979, 8008111416, 1848748893, 1312374762, 6599479 #### [facility] (DEFAULT) [address] [place] [address] 27184 Globulin (S) [Mass/Vol] 3.9 g/dL Normal 1.5-4.3 [facility] Comment on above: Performed By: #### 1 0529334, 28224321, 9198071, 6467099797, 11112477, 0407995, 7974872187, 0317973567, 5417267683, 0823090 #### [facility] (DEFAULT) [address] [place] [address] 81208 Glucose [Mass/Vol] 98.0 mg/dL Normal 74.0-118.0 [facility] Comment on above: Performed By: #### 1 7139313, 74214721, 2018110, 9031363302, 32529802, 1982229, 4760038031, 9407302083, 6156798377, 4770162 #### [facility] (DEFAULT) [address] [place] [address] 66957 Osmolality 274 mOsm/L Invalid Interpretation Code [facility] Comment on above: Performed By: #### 1 5530499, 18912941, 4538377, 5941191280, 98238960, 9377099, 3982531145, 2331386372, 0884045691, 3835785 #### [facility] (DEFAULT) [address] [place] [address] 27148 Potassium [Moles/Vol] 3.5 mmol/L Low 3.6-5.1 [facility] Comment on above: Performed By: #### 1 3980404, 08093139, 6643356, 7089133301, 47875583, 7290510, 1466578115, 3810900398, 7254601817, 0201676 #### [facility] (DEFAULT) [address] [place] [address] 59385 Protein [Mass/Vol] 8.4 g/dL High 6.5-8.1 [facility] Comment on above: Performed By: #### 1 3793338, 63088946, 1883355, 0894940727, 24519937, 2556354, 6782295157, 3567092881, 0087391116, 5254764 #### [facility] (DEFAULT) [address] [place] [address] 44283 Sodium [Moles/Vol] 138.0 mmol/L Normal 136.0-144.0 [facility] Comment on above: Performed By: #### 1 3288934, 86509155, 4474094, 1705319978, 04704491, 5408676, 7591258185, 1956020368, 0791925538, 0251196 #### [facility] (DEFAULT) [address] [place] [address] 29365 Urea nitrogen [Mass/Vol] 7 mg/dL Low 8-26 [facility] Comment on above: Performed By: #### 1 1304951, 21530592, 9673957, 6495442041, 53836428, 1289665, 2306486645, 7486741672, 1244017958, 1601250 #### [facility] (DEFAULT) [address] [place] [address] Urea nitrogen/Creatinine [Mass ratio] 9.0 mg/mg Normal 4.6-16.2 [facility] Comment on above: Performed By: #### 1 8025502, 54690608, 5145418, 6522516125, 43132801, 7719865, 1377605953, 5594539465, 5616702541, 3779439 #### [facility] (DEFAULT) [address] [place] [address] 67866 ED Clinical Summaryon 2021 ED Clinical Summary [facility] - Emergency Department [address] [place] [address] 37479 ED Clinical Summary PERSON INFORMATION Name: DIANE JOYCE Age: 26 Years Sex: FEMALE : 1995 MRN: Acct#: Visit Reason: Vaginal bleeding - < 20 wks ; BLEEDING, Arrival: 03/09/2022 15:56:59 Discharge: 03/09/2022 18:28:00 LOS: 000 02:32 Check In: 03/09/2022 15:56:59 Checkout:03/09/2022 18:28:00 Address: [address] [place] [address] PCP: Provider, None PROVIDER INFORMATION Provider Role [...] or bladder. States that she follows with mail sorter in [place] Dr. Min, contacted his office and they [...] intact, SARINA: -Sclera conjunctiva: Unremarkable. NECK: -Supple (lxav-gp-[id number]): non-tender. CARD: -Rate and rhythm: Regular -Edema: [...] the patient recommended close follow-up with her mail sorter and outpatient beta hCG. In the meantime no strenuous ac (more content not included)... Normal [facility] ED Note - Physicianon 2021 ED [...] or bladder. States that she follows with mail sorter in [place] Dr. Min, contacted his office and they [...] intact, SARINA: -Sclera conjunctiva: Unremarkable. NECK: -Supple (fumd-ux-hinqs): non-tender. CARD: -Rate and rhythm: Regular -Edema: [...] the patient recommended close follow-up with her mail sorter and outpatient beta hCG. In the meantime no strenuous activity, sexual activity if having any worsening issues I recommended he return to the emergency department or going directly to mail sorter. Patient indicated she understood was in agreement. [...] AA >60 (more content not included)... Normal [facility] ED Note-Nursingon 03-09-2022 Beta HCG ( test) Ql (U) Patient arrives with c/o vaginal bleeding during . States she took a at home test a week ago and estimates being 5 to 6 weeks along. Patient has some mild cramping yesterday / at has since went away and light vaginal bleeding today. This is the patients second , 1 live . Normal [facility] ED Patient Summaryon 022 ED Patient Summary [facility] - Emergency Department [address] [place], [place] [id number] PATIENT DISCHARGE INSTRUCTIONS Patient Information Name: DIANE JOYCE Age: 26 Years Date of : 1995 [facility]: [id number] Reason For Visit: Vaginal bleeding - < 20 wks ; BLEEDING, Arrival Time: 03/09/2022 15:56:59 Primary Care Physician: Provider, None Attending Physician: Adrian Rosales MD Comment: Visit Diagnosis: Diagnoses This Visit Elevated blood pressure reading (R03.0) First trimester (Z34.91) Threatened miscarriage in early (O20.0) Vaginal bleeding (N93.9) Vaginal bleeding - < 20 wks ([id number]) Prescription Information: If you have been given a prescription for narcotics, seek immediate medical attention if you have any difficulty breathing or any sudden status changes such as confusion and sleepiness. If you or anyone you know is experiencing suicidal thoughts, mental health, alcohol and/or drug addiction problems; contact the [facility] 21/05 Crisis Hotline -Text 1JJGO ol 237949. If you received any narcotics, sedation, or [...] documents With: Address: When: Follow-up with your mail sorter for reevaluation next few days. Within 1 to 2 days Comments: Follow-up with mail sorter for reevaluation next few days for reevaluation and outpatient quantitative hCG. Return immediately for any worsening issues such as increasing abdominal pains, increasing vaginal bleeding, fevers, or any other problems. With: Address: When: Stephanie Padilla Within 3 to 5 days Comments: Pool Servicer Medication Information: The exam and treatment you received today in the [facility] Emergency Department were for an urgent problem and are not intended as complete care. It is important for you to follow up with a doctor, nurse practitioner, or physician?s culinary assistant for ongoing care. If your symptoms [...] so we can reach you if necessary. [facility] has provided you with a complete list of medications post discharge. Please inform your block setter gypsum/provider of your visit and for further instruction [...] The sec (more content not included)... Normal [facility] Extra Greenon 03-09-2022 Tube Collected Yes Invalid Interpretation Code [facility] Comment on above: Performed By: #### 1 [id number], [id number], 9455793, [id number], 18872899, 2161066, 7066228228, 1848828154, 4627438846, 3519920 #### [facility] (DEFAULT) [address] [place] [address] 60167 PT/PTTon 03-09-2022 INR Coag (PPP) [Relative time] 0.95 {INR} Normal 0.91-1.11 [facility] Comment on above: Performed By: #### 1 7152777, 85554286, 4731251, 1028717998, 36878071, 2535944, 2711557378, 4752719894, 9678329950, 5646397 #### [facility] (DEFAULT) [address] [place] [address] 68418 PT 10.3 second(s) Normal 9.7-11.8 [facility] Comment on above: Performed By: #### 1 8816039, 21976440, 8644205, 8894018716, 42056343, 9671847, 6262233459, 4164745972, 5300482192, 4968830 #### [facility] (DEFAULT) [address] [place] [address] 36958 PTT 34 second(s) Normal 25-35 [facility] Comment on above: Performed By: #### 1 6641707, 11347750, 8171216, 2326304599, 63217255, 6839001, 0073401297, 6451006596, 7212125785, 6683526 #### [facility] (DEFAULT) [address] [place] [address] 53639 RhIG.on 03-09-2022 RhIG. No. Vials RhI RhIG Candidate?: No Date to Give: [id number] RhIG Status: RhIG Ready Normal [facility] Comment on above: Performed By: #### 1 9532653, 61560987, 5138608, 1963494670, 22686675, 5840185, 0733726493, 1358308163, 9608509374, 3878260 ####[facility] (DEFAULT)[address] [place] [address] UA Pzynv0qt 03-09-2022 UA Amorph. 1+ [facility] Comment on above: Order Comment: Urina lysis Microscopic order added on by Discern Expert Rules system. Performed By: #### 5 3748296, 6670430, [id number] ####[facility] (DEFAULT)[address] [place] [address] UA Bacteria 2+ [facility] Comment on above: Order Comment: Urina lysis Microscopic order added on by Discern Expert Rules system. Performed By: #### 5 7725146, 7912410, [id number] ####[facility] (DEFAULT)[address] [place] [address] UA Mucous 3+ [facility] Comment on above: Order Comment: Urina lysis Microscopic order added on by Discern Expert Rules system. Performed By: #### 5 6239595, 4958683, [id number] ####[facility] (DEFAULT)[address] [place] [address] UA RBC >100 [facility] Comment on above: Order Comment: Urina lysis Microscopic order added on by Discern Expert Rules system. Performed By: #### 5 2881867, 2367376, [id number] ####[facility] (DEFAULT)[address] [place] [address] UA Squam Epi Many [facility] Comment on above: Order Comment: Urina lysis Microscopic order added on by Discern Expert Rules system. Result Comment: DMITRY WERNER RN IN ER. RUN UNINALYSIS AND CULTURE ON THIS SPECIMEN. NO RECOLLECT. Performed By: #### 5 8054551, 5338777, [id number] ####[facility] (DEFAULT)[address] [place] [address] UA WBC 3-5 [facility] Comment on above: Order Comment: Urina lysis Microscopic order added on by Discern Expert Rules system. Performed By: #### 5 9376130, 4349474, [id number] ####[facility] (DEFAULT)[address] [place] [address] UA w Culture if Ind Standard on 03-09-2022 Breakpoint UA Normal [facility] Comment on above: Performed By: #### 1 1689398, 93150059, 8089030, 6931479199, 12155086, 2556246, 6728923743, 4020590381, 9115295716, 0359376 #### [facility] (DEFAULT) [address] [place] [address] 99471 Color (U) Yellow Normal [facility] Comment on above: Performed By: #### 1 6048539, 43240946, 2231823, 1277833635, 62027067, 2794616, 3031245646, 0516713685, 1135325726, 7347460 #### [facility] (DEFAULT) [address] [place] [address] Culture? Indicated Invalid Interpretation Code [facility] Comment on above: Result Comment: Resu lt created by rule GL_MAGR_ADD_UA_CULT Result created by rule GL_MAGR_ADD_UA_CULT Result created by rule GL_MAGR_ADD_UA_CULT1 Result created by rule GL_MAGR_ADD_UA_CULT Performed By: #### 1 1081833, 80919073, 0607378, 8388139741, 06582383, 1915203, 5381449686, 8285093794, 5083007036, 6102049 #### [facility] (DEFAULT) [address] [place] [address] 45548 Glucose (U) [Mass/Vol] Negative Normal [facility] Comment on above: Performed By: #### 1 2119120, 44366831, 0517418, 2753659737, 26925839, 9335824, 8615518660, 9596269914, 6354046324, 7078119 #### [facility] (DEFAULT) [address] [place] [address] 46178 Ketones Ql (U) 40 Normal [facility] Comment on above: Performed By: #### 1 9612230, 04521695, 5213700, 3664222231, 63061066, 5436619, 7810363192, 4500089781, 9650341680, 7678633 #### [facility] (DEFAULT) [address] [place] [address] Micro? Indicated Invalid Interpretation Code [facility] Comment on above: Result Comment: Resu lt created by rule GL_MAGR_ADD_UA_MICRO Performed By: #### 1 9193717, 88891350, 2624646, 5837710566, 66055124, 3694887, 9462539927, 4685146168, 8537513063, 4881061 #### [facility] (DEFAULT) [address] [place] [address] 32481 UA Bilirubin Negative Normal [facility] Comment on above: Performed By: #### 1 1313141, 73684610, 7696603, 0064267039, 84062275, 2619173, 1682073405, 8158036886, 7637445746, 7117517 #### [facility] (DEFAULT) [address] [place] [address] 55030 UA Blood LARGE Abnormal NEGATIVE [facility] Comment on above: Performed By: #### 1 2058314, 07204302, 6879243, 0545669021, 65238250, 6571140, 9840659067, 3195828251, 6218858337, 8955185 #### [facility] (DEFAULT) [address] [place] [address] 60936 UA Clarity SL CLOUDY Abnormal CLEAR [facility] Comment on above: Performed By: #### 1 6393239, 24536112, 9815583, 4983936988, 72805481, 0508297, 6950322832, 0506238723, 3979532050, 1624560 #### [facility] (DEFAULT) [address] [place] [address] 72334 UA Leuk Est TRACE Abnormal NEGATIVE [facility] Comment on above: Performed By: #### 1 1201695, 96718193, 8909113, 1911111332, 76608362, 1222329, 4836045182, 2747717023, 7877296212, 7788762 #### [facility] (DEFAULT) [address] [place] [address] 78266 UA Nitrite Negative Normal NEGATIVE [facility] Comment on above: Performed By: #### 1 5981513, 68997910, 0293807, 2200702656, 63620051, 4026591, 9722571351, 2818720707, 1320177412, 2125016 #### [facility] (DEFAULT) [address] [place] [address] 73567 UA pH 6.5 Normal 5-8 [facility] Comment on above: Performed By: #### 1 0907202, 33458167, 6213879, 1438655667, 03763787, 4676964, 4857963269, 0160038159, 0161979012, 7255463 #### [facility] (DEFAULT) [address] [place] [address] 72982 UA Protein Negative Normal NEGATIVE [facility] Comment on above: Performed By: #### 1 7294284, 97425717, 3536579, 0482795881, 63635207, 7998345, 1972735215, 7136179654, 3984679911, 0520147 #### [facility] (DEFAULT) [address] [place] [address] 59926 UA Spec Grav 1.015 Normal 1.001-1.035 [facility] Comment on above: Performed By: #### 1 2541743, 98070052, 3716819, 3242839209, 22583611, 6736894, 9575842895, 5329563712, 2316245098, 7491304 #### [facility] (DEFAULT) [address] [place] [address] UA Urobilinogen 0.2 mg/dL Normal 0.2-1.0 [facility] Comment on above: Performed By: #### 1 8527639, 87914564, 6168183, 9761163489, 79907591, 6686325, 8626371535, 4884932512, 2002768401, 3321589 #### [facility] (DEFAULT) [address] [place] [address] Urine Source Clean Catch [facility] Comment on above: Performed By: #### 1 0976876, 39680144, 7525537, 6235782540, 33164056, 9528787, 8142150312, 5645674726, 7699479066, 2954736 #### [facility] (DEFAULT) [address] [place] [address] US 1st Trimesteron 03-09-2022 US 1st Trimester [...] Sebastian Guzman 03/09/22 6:10 pm Technologist: PM [facility] US Transvaginalon 03-09-2022 US Transvaginal EXAM: US [...] Guzman 03/09/22 6:10 pm Technologist: PM Normal [facility] hCG Quantitativeon hCG Quantitative 7.1 mIU/mL High 0.0-0.6 [facility] Comment on above: Result Comment: Post -Menopausal Reference Range is: 0.1-11.6 mIU/mL Performed By: #### 1 3167537, 24849530, 8021146, 6445117042, 90129441, 0757834, 3597124916, 0803146399, 2276570168, 1531961 #### [facility] (DEFAULT) [address] [place] [address] Vital Signs Date Time Vital Sign Value Performing Clinician Facility 12-13-2023 15:00-0500 Body mass index (BMI) [Ratio] 46.69 kg/m2 [facility] Nurse [facility] 12-13-2023 15:00-0500 Body weight 123.38 kg [facility] 12-13-2023 15:00-0500 Diastolic blood pressure 78 mm[Hg] [facility] 12-13-2023 15:00-0500 Systolic blood pressure 128 mm[Hg] [facility] 05-15-2023 18:30-0400 Body height 161.29 cm Linsey Witt Other [facility] Other 05-15-2023 18:30-0400 Body mass index (BMI) [Ratio] 43.41 kg/m2 Linsey Eduar Other [facility] Other 05-15-2023 18:30-0400 Body temperature 99.2 [degF] Linsey Witt Other [facility] Other 05-15-2023 18:30-0400 Body weight 112.95 kg Linsey Eduar Other [facility] Other 05-15-2023 18:30-0400 Respiratory rate 18 /min Linsey Witt Other [facility] Other 05-15-2023 18:30-0400 SaO2% (BldA) [Mass fraction] 99 % Linsey Witt Other [facility] Other 05-09-2023 11:00-0400 Body height 161.29 cm Gissel Santana Other [facility] Other 05-09-2023 11:00-0400 Body mass index (BMI) [Ratio] 43.59 kg/m2 Gissel Santana Other [facility] Other 05-09-2023 11:00-0400 Body weight 113.4 kg Gissel Snatana Other [facility] Other 05-09-2023 11:00-0400 Diastolic blood pressure 83 mm[Hg] Gissel Santana Other [facility] Other 05-09-2023 11:00-0400 Systolic blood pressure 119 mm[Hg] Gissel Santana Other [facility] Other 04-12-2023 09:00-0400 Body height 161.29 cm Gissel Santana Other [facility] Other 04-12-2023 09:00-0400 Body mass index (BMI) [Ratio] 43.59 kg/m2 Gissel Santana Other [facility] Other 04-12-2023 09:00-0400 Body weight 113.4 kg Gissel Santana Other [facility] Other 04-12-2023 09:00-0400 Diastolic blood pressure 88 mm[Hg] Gissel Santana Other [facility] Other 04-12-2023 09:00-0400 Systolic blood pressure 129 mm[Hg] Gissel Santana Other [facility] Other 10-11-2022 02:06-0500 Body weight 111.[address] ESTELLA MIN . [facility] Comment on above: Performed By: #### AFPMAT #### [facility] Laboratory [address] [place] [address] Dr. Alexsander Dickinson Encounters Encounter Date Encounter [...] 11-06-2023 End: 11-06-2023 ambulatory Gissel Santana Other [facility] Other Start: 11-06-2023 Encounter by donald Santana [facility] Start: 05-22-2023 End: 05-22-2023 ambulatory Olive Howard Other [facility] Other Start: 05-22-2023 Telephone encounter Olive Howard [facility] Start: 05-15-2023 End: 05-15-2023 ambulatory Linsey Witt Facility:[facility] Start: 05-15-2023 End: 05-15-2023 Departed Referred TERESA Witt Work Phone: [facility] [place] Work Phone: Start: 05-15-2023 End: 05-15-2023 ambulatory TERESA Witt Work Phone: [facility] Work Phone: Start: 05-15-2023 Office outpatient vi sit 25 minutes Linsey Witt [facility] Start: 05-09-2023 End: 05-09-2023 ambulatory Gissel Santana Other [facility] Other Start: 05-09-2023 Office outpatient vi sit 15 minutes Gissel Santana [facility] Start: 04-12-2023 End: 04-12-2023 ambulatory Gissel Santana Other [facility] Other Start: 04-12-2023 Encounter for genera l adult medical examination without abnormal findings Gissel Santana [facility] Start: 04-12-2023 Periodic preventive med est patient 18-39 yrs Gissel Santana [facility] Start: 02-15-[address] ESTELLA IMN . Facili ty:[facility]1 Start: 02-08-[address] [...] EDT Routine [facility] [address] [place] [address] Estella Min, [address] [facility] [place] [address] [facility] Start: 12-13-2023 End: 12-13-2024 ABO/Rh ABO/Rh Lab Routine Missed menses Expected: 12/13/2023 (Approximate), Expires: 12/13/2024 [facility] Comment on above: Expected: 12/13/2023 (Approximate), [...] Missed menses Expected: 12/13/2023 (Approximate), Expires: 12/13/2024 [facility] Comment on above: Expected: 12/13/2023 (Approximate), Expires: 12/13/2024 Start: 12-13-2023 End: 12-13-2024 US Pelvis transvaginal US OB transvaginal Imaging Routine Missed menses Expected: 12/13/2023 (Approximate), Expires: 12/13/2024 [facility] Healthcare Comment on above: Expected: 12/13/2023 (Approximate), Expires: 12/13/2024 Start: 05-15-2023 Throat culture Throat Culture [facility] Bacteria identified in Urine by Culture Urine culture Microbiology Routine Missed menses Ordered: 12/13/2023 [facility] Comment on above: Ordered: 12/13/2023 CBC W Auto Different ial panel - Blood CBC and differential Lab Routine Missed menses Ordered: 12/13/2023 [facility] Comment on above: Ordered: 12/13/2023 Hemoglobin A1c/Hemoglobin.total in Blood Hemoglobin A1c Lab Routine Missed menses Ordered: 12/13/2023 [facility] Comment on above: Ordered: 12/13/2023 Hepatitis B virus surface Ag [Presence] in Serum or Plasma by Immunoassay Hepatitis B surface antigen Lab Routine Missed menses Ordered: 12/13/2023 [facility] Comment on above: Ordered: 12/13/2023 Hepatitis C virus Ab [Presence] in Serum or Plasma by Immunoassay Hepatitis C antibody Lab Routine Missed menses Ordered: 12/13/2023 [facility] Comment on above: Ordered: 12/13/2023 HIV-1/HIV-2 antigen/antibody combination immunoassay HIV-1 and HIV-2 antibodies Lab Routine Missed menses Ordered: 12/13/2023 [facility] Comment on above: Ordered: 12/13/2023 Reagin Ab [Presence] in Serum by RPR RPR Lab Routine Missed menses Ordered: 12/13/2023 [facility] Comment on above: Ordered: 12/13/2023 Rubella antibody, IgG Rubella an tibody, IgG Lab Routine Missed menses Ordered: 12/13/2023 [facility] Comment on above: Ordered: 12/13/2023 Payers Date Payer Category Payer Unknown BCBS BCBS xxxxxx [id number] 2020-Present [phone] [address] [place] [address] [id number]. [id number] 1994 Unknown [id number] 2.16.840.1.025186.3.579.2.593 1994 Unknown [id number] 2.16.840.1.032271.3.579.2.593 1994 Unknown [id number] 2.16.840.1.244612.3.579.2.593 1994 Unknown [id number] 2.16.840.1.122978.3.579.2.593 1994 Unknown [id number] 2.16.840.1.624261.3.579.2.593 1994 Unknown [id number] 2.16.840.1.930559.3.579.2.593 1994 Unknown [id number] 2.16.840.1.022056.3.579.2.593 1994 Unknown [id number] 2.16.840.1.700100.3.579.2.593 1994 Unknown [id number] 2.16.840.1.090200.3.579.2.593 1994 Unknown [id number] 2.16.840.1.439514.3.579.2.593 1994 Unknown [id number] 2.16.840.1.350432.3.579.2.593 1994 Unknown [id number] 2.16.840.1.476933.3.579.2.593 1994 Unknown [id number] 2.16.840.1.433254.3.579.2.593 1994 Unknown [id number] 2.16.840.1.778097.3.579.2.593 1994 Unknown [id number] 2.16.840.1.702682.3.579.2.593 1994 Unknown [id number] 2.16.840.1.474248.3.579.2.593 1994 Unknown [id number] 2.16.840.1.952223.3.579.2.593 1994 Unknown [id number] 2.16.840.1.907638.3.579.2.593 1994 Unknown [id number] 2.16.840.1.745448.3.579.2.593 1994 Unknown [id number] 2.16.840.1.197409.3.579.2.593 1994 Unknown [id number] 2.16.840.1.679709.3.579.2.593 1994 Unknown [id number] 2.16.840.1.053241.3.579.2.593 1994 Unknown [id number] 2.16.840.1.404222.3.579.2.593 1994 Unknown [id number] 2.16.840.1.378260.3.579.2.593 1994 Unknown [id number] 2.16.840.1.932655.3.579.2.1259 1994 Unknown [id number] 2.16.840.1.163661.3.579.2.1259 1994 Unknown [id number] 2.16.840.1.320566.3.579.2.1259 1994 Unknown [id number] 2.16.840.1.054961.3.579.2.1259 1994 Unknown [id number] 2.16.840.1.757462.3.579.2.1259 1994 Unknown [id number] 2.16.840.1.230993.3.579.2.1259 1994 Unknown [id number] 2.16.840.1.455091.3.579.2.1259 1994 Unknown [id number] 2.16.840.1.242742.3.579.2.1259 1959 Self-pay 1960 Unknown [id number] Unknown [id number] 2.16.840.1.749900.3.579.2.593 Unknown [id number] 2.16.840.1.859551.3.579.2.531 Social History Date Type Detail Facility Unknown if ever smoked [facility] Other Start: 03-12-2023 Sex Assigned At N [facility] Other Start: 1995 Sex Assigned At Female F [facility] Start: 03-12-2023 Tobacco smoking status NHIS Never [...] meat, and stay away from [facility]. Patient has also been advised to [...] Meenakshi Rosenthal MA documented in this encounter [facility] 05-15-2023 Evaluation note Encounter Date Diagnosis Assessment [...] understanding and is agreeable to treatment plan. [facility] Other 07-12-2023 Evaluation note* Encounter Date Diagnosis Assessment Notes Treatment Notes Treatment Clinical Notes Apr, Anxiety disorder, unspecified (ICD-10 - F41.9) Pt states that she, and her , agree that she is doing better on the medication. Continues to have stress, but is dealing more appropriately. Would like to continue this med and this dose. f/u6 months, sooner if needed. [facility] Other 06-15-2023 Evaluation note* Encounter Date Diagnosis [...] help for overwhelm. followup in 1 month [facility] Other 05-12-2022 NoteEducation Materials Cardiovascular Hypertension, Adult [...] without skin, beans, e (more content not included)...[facility] noteNo assessment information availableBet[facility] Work Phone: Evaluation noteNo InformationN[facility]Buck[facility] Other Evaluation note* Diagnosis Missed menses documented in this encounter [facility] N[facility] - Reported* Type Description Date Surgical History C-sect 2019 Surgical History C-sect 2022 [facility] Other History general Narrative - Reported* Type Description Date Medical History Anxiety disorder, unspecified Surgical History C-sect 2019 Surgical History C-sect 2022 Hospitalization History SEE SURGICAL [facility] Other History general Narrative - Reported* Type Description Date Medical History Anxiety disorder, unspecified Medical History Gestational diabetes Surgical History C-sect 2019 Surgical History C-sect 2022 Hospitalization History SEE SURGICAL [facility] Other Summary Purpose Family History No Family History Records FoundNo Family History Records FoundNo Family History Records FoundNo Family History Records Found Advance Directives No Advanced Directives Records FoundNo Advanced Directives Records FoundNo Advanced Directives Records FoundNo Advanced Directives Records Found Additional Source Comments INFORMATION SOURCE (unrecogn ized section and content) DATE CREATED AUTHOR 03/18/2022 [facility] l DATE CREATED AUTHOR AUTHOR'S ORGANIZ ATION 02/15/2023 [facility] DATE CREATED AUTHOR AUTHOR'S ORGANIZ ATION 05/24/2023 [facility] DATE CREATED AUTHOR AUTHOR'S ORGANIZ ATION 06/07/2024 [facility] EPIC REASON FOR VISIT (unrecogniz ed section and content) Reason Comments Amenorrhea Care Teams (unrecognized sec tion and content) Team Status: Inactive Member Role Status Dates Linsey Witt APRN Attending Provider Active Owner Spa Director Relationship Specialty Start Date End Date Gissel Santana MD [address] [place] [address] PCP - General Family Medicine [...] BE BASED ON THE PRIMARY CLINICAL RECORDS. [facility]. provides no warranty or guarantee of the accuracy or completeness of information in this document.
[2024-06-14 10:53] VITALS: BP 135/74; PULSE 96
== END 2024-06-14 11:30 | disposition home or self-care (01) ==
LOC: FBCO 07:44 → FBC 10:49
PROVIDERS: Visit Provider Obstetrics & Gynecology
DX: O24.419 Gestational diabetes mellitus in pregnancy, unspecified control (principal)
CPT/HCPCS: 59025

== ENCOUNTER 2024-06-18 06:56 | Outpatient (OUT) | payer BC, SELFPAY ==
--- NOTE | 2024-06-18 | US_ITS ---
[address] [address] Patient Name: VADIM CONSTANTINO MRN: [id number] date: 1995 Sex: F Assigned Patient Location: [facility] Current Patient Location: [facility] Accession/Order Number: [id number] Exam Date: 06/18/2024 11:05 Report Date: 06/18/2024 11:48 At the request of: ESTELLA BUENO Procedure: US OB growth EXAMINATION: US OB growth HISTORY: Gestational diabetes mellitus O24.419 COMPARISON: Ultrasound OB growth 05/21/2024 FINDINGS: Heart Rate: 181.21 bpm Amniotic Fluid Volume: 23.8 cm Number: 1 Position: CEPHALIC BIOMETRY: BPD: 9.30 cm; 37 weeks 6 days; 95 % HC: 33.31 cm; 38 weeks 0 days; 72.70 % AC: 34.33 cm; 38 weeks 2 days; >97 % FL: 7.03 cm; 36 weeks 0 days; 50.30 % EFW: 3272.95 g; 91.70 % FL/AC: 20.48 FL/BPD: 75.59 HC/AC: 0.97 GESTATIONAL AGE: Age by EDC: 35 weeks 6 days NILE by EDC: 2024-07-17 Age by US: 37 weeks 4 days NILE by US: 2024-07-05 US/US OB growth IMPRESSION: 1. Single live intrauterine with growth detailed above. 2. Amniotic fluid volume approaches polyhydramnios. 3. Abdominal circumference is greater than 97th percentile. Biparietal diameter is 95th percentile. Electronically authenticated by: DEE GALLEGOS Date: 06/18/2024 11:48
--- NOTE | 2024-06-18 | US_ITS ---
[address] [address] Patient Name: VADIM CONSTANTINO MRN: [id number] date: 1995 Sex: F Assigned Patient Location: [facility] Current Patient Location: [facility] Accession/Order Number: [id number] Exam Date: 06/18/2024 11:05 Report Date: 06/18/2024 11:54 At the request of: ESTELLA BUENO Procedure: US OB BPP w non-stress EXAMINATION: US OB BPP w non-stress HISTORY:Gestational diabetes mellitus O24.419 COMPARISON: Ultrasound OB biophysical 06/11/2024 TECHNIQUE: Ultrasound biophysical profile was performed in the radiology department. BREATHING MOVEMENTS: 2 GROSS BODY MOVEMENTS: 2 TONE: 2 QUALITATIVE AMNIOTIC FLUID VOLUME: 2 PRESENTATION: CEPHALIC HEART RATE: 181.21 bpm AMNIOTIC FLUID VOLUME: 23.80 cm GESTATIONAL AGE: 35 weeks 6 days US/US OB BPP w non-stress IMPRESSION: Total biophysical profile score: 8 Electronically authenticated by: DEE GALLEGOS Date: 06/18/2024 11:54
--- OUTSIDE RECORDS SUMMARY | 2024-06-18 06:58 | XMS_ITS | CCD ---
Author Organization [facility] Care Team Providers Care Sleeve Tailor Name Role Phone MECHELLE ., DR SORIA [...] Unavailable MECHELLE ., DR SORIA Admitting Unavailable [place], [employer] Unavailable SANTANA, DR GISSEL Teresa [...] UA Negative Negative - 4(70) +++ mg/dL [facility] Blood, UA Negative Negative - 50 Sal/mcL [facility] Clarity, UA Clear [facility] Healthok re Color, UA Yellow [facility] Glucose, UA Negative Negative - 1999(110) ++++ mg/dL [facility] Interpretation and review of laboratory results Abnormal [facility] re Ketones, UA Positive Negative - 160(16) ++++ mg/dL [facility] Leukocytes, UA Negative Negative - 500+++ Lizzy/mcL [facility] Nitrite, UA Negative Negative - Positive [facility] pH, UA 7.0 5 - [address] [facility] Protein, UA Positive Negative - 1999(20) ++++ mg/dL [facility] Spec Grav, UA 1.030 1 - 1.03 [facility] Urobilinogen, UA 0.2 0.2 - 12 mg/dL [facility] Quick Strep[facility] 05-15-2023 S. pyogenes Org specific cx Ql (Throat) Negative [facility] Other Quick Strep [facility] Other Throat Cultureon 05-15-2023 Throat culture Heavy Normal Respiratory John 2 Days PERFORMED BY: [id number] [place] [address] PATHOLOGIST SEPARATOR OPERATOR ARACELI HAYWOOD M.D. Normal [facility] Comment on above: Performed By: #### C UT #### [facility] [address] GROUP B STREP CULTUREon 01-27 S. [...] S F Tetracycline <=0.25 S F Normal [facility] Comment on above: Performed By: #### A FPMAT #### [facility] [address] [place] [address] Dr. Alexsander Dickinson CBC AUTO DIFFon 02-02-2023 BASO # 0.0 103/ul Normal 0.0-0.1 [facility] Comment on above: Performed By: #### C BC #### [facility] [address] [place] [address] Dr. Alexsander Dickinson Basophils/100 WBC (Bld) 0.2 % Normal 0.2-2.0 [facility] Comment on above: Performed By: #### C BC #### [facility] [address] [place] [address] Dr. Alexsander Dickinson EO # 0.0 103/ul Normal 0.0-0.7 [facility] Comment on above: Performed By: #### C BC #### [facility] [address] [place] [address] Dr. Alexsander Dickinson Eosinophils/100 WBC (Bld) 0.0 % Critically low 0.9-7.0 [facility] Comment on above: Performed By: #### C BC #### [facility] [address] [place] [address] Dr. Alexsander Dickinson Erythrocyte distribution width (RBC) [Ratio] 12.5 % Normal 11.0-15.0 [facility] Comment on above: Performed By: #### C BC #### [facility] [address] [address] [address] Alexsander Dickinson Hematocrit (Bld) [Volume fraction] 32.9 % Critically low 36.0-48.0 [facility] Comment on above: Performed By: #### C BC #### [facility] [address] [address] [address] Alexsander Dickinson Hemoglobin (Bld) [Mass/Vol] 10.7 g/dL Critically low 12.0-16.0 [facility] Comment on above: Performed By: #### C BC #### [facility] [address] [address] [address] Alexsander Dickinson IG # 0.12 10e3/ul Critically high 0.00-0.03 [facility] Comment on above: Performed By: #### C BC #### [facility] [address] [address] [address] Alexsander Dickinson IG % 0.7 % Critically high 0.0-0.5 [facility] Comment on above: Performed By: #### C BC #### [facility] [address] [address] [address] Alexsander Dickinson LYMPH # 1.1 103/ul Critically low 1.2-3.8 [facility] Comment on above: Performed By: #### C BC #### [facility] [address] [address] [address] Alexsander Dickinson Lymphocytes/100 WBC (Bld) 6.4 % Critically low 20.5-60.0 [facility] Comment on above: Performed By: #### C BC #### [facility] [address] [address] [address] Alexsander Dickinson MANUAL DIFF REQ NO Normal [facility] Comment on above: Performed By: #### C BC #### [facility] [address] [address] [address] Alexsander Dickinson MCH (RBC) [Entitic mass] 26.1 pg Critically low 26.7-34.0 [facility] Comment on above: Performed By: #### C BC #### [facility] [address] [address] [address] Alexsander Dickinson MCHC (RBC) [Mass/Vol] 32.5 g/dL Normal 29.9-35.2 [facility] Comment on above: Performed By: #### C BC #### [facility] [address] [address] [address] Alexsander Dickinson MCV (RBC) [Entitic vol] 80.2 fL Critically low 81.0-99.0 [facility] Comment on above: Performed By: #### C BC #### [facility] [address] [place] [address] Dr. Alexsander Dickinson MONO # 0.4 103/ul Normal 0.3-0.8 [facility] Comment on above: Performed By: #### C BC #### [facility] [address] [place] [address] Dr. Alexsander Dickinson Monocytes/100 WBC (Bld) 2.1 % Normal 1.7-12.0 [facility] Comment on above: Performed By: #### C BC #### [facility] [address] [place] [address] Dr. Alexsander Dickinson NEUT # 15.5 103/ul Critically high 1.4-6.5 [facility] Comment on above: Performed By: #### C BC #### [facility] [address] [place] [address] Dr. Alexsander Dickinson Neutrophils/100 WBC (Bld) 90.6 % Critically high 43.0-75.0 [facility] Comment on above: Performed By: #### C BC #### [facility] [address] [place] [address] Dr. Alexsander Dickinson Platelet mean volume (Bld) [Entitic vol] 10.7 fL Normal 9.5-13.5 [facility] Comment on above: Performed By: #### C BC #### [facility] [address] [place] [address] Dr. Alexsander Dickinson PLT 310 103/ul Normal 150-450 [facility] Comment on above: Performed By: #### C BC #### [facility] [address] [place] [address] Dr. Alexsander Dickinson RBC 4.10 106/ul Critically low 4.20-5.40 [facility] Comment on above: Performed By: #### C BC #### [facility] [address] [place] [address] Dr. Alexsander Dickinson WBC 17.1 103/ul Critically high 4.0-11.0 [facility] Comment on above: Performed By: #### C BC #### [facility] [address] [place] [address] Dr. Alexsander Dickinson CBC AUTO DIFFon 02-01-2023 BASO # 0.0 103/ul Normal 0.0-0.1 [facility] Comment on above: Performed By: #### A 1C #### [facility] [address] [place] [address] Dr. Alexsander Dickinson Basophils/100 WBC (Bld) 0.2 % Normal 0.2-2.0 [facility] Comment on above: Performed By: #### A 1C #### [facility] [address] [place] [address] Dr. Alexsander Dickinson EO # 0.0 103/ul Normal 0.0-0.7 [facility] Comment on above: Performed By: #### A 1C #### [facility] [address] [place] [address] Dr. Alexsander Dickinson Eosinophils/100 WBC (Bld) 0.4 % Critically low 0.9-7.0 [facility] Comment on above: Performed By: #### A 1C #### [facility] [address] [place] [address] Dr. Alexsander Dickinson Erythrocyte distribution width (RBC) [Ratio] 12.9 % Normal 11.0-15.0 [facility] Comment on above: Performed By: #### A 1C #### [facility] [address] [place] [address] Dr. Alexsander Dickinson Hematocrit (Bld) [Volume fraction] 34.2 % Critically low 36.0-48.0 [facility] Comment on above: Performed By: #### A 1C #### [facility] [address] [place] [address] Dr. Alexsander Dickinson Hemoglobin (Bld) [Mass/Vol] 11.4 g/dL Critically low 12.0-16.0 [facility] Comment on above: Performed By: #### A 1C #### [facility] [address] [place] [address] Dr. Alexsander Dickinson IG # 0.04 10e3/ul Critically high 0.00-0.03 [facility] Comment on above: Performed By: #### A 1C #### [facility] [address] [place] [address] Dr. Alexsander Dickinson IG % 0.5 % Normal 0.0-0.5 [facility] Comment on above: Performed By: #### A 1C #### [facility] [address] [place] [address] Dr. Alexsander Dickinson LYMPH # 2.1 103/ul Normal 1.2-3.8 [facility] Comment on above: Performed By: #### A 1C #### [facility] [address] [place] [address] Dr. Alexsander Dickinson Lymphocytes/100 WBC (Bld) 23.9 % Normal 20.5-60.0 [facility] Comment on above: Performed By: #### A 1C #### [facility] [address] [place] [address] Dr. Alexsander Dickinson MANUAL DIFF REQ NO Normal [facility] Comment on above: Performed By: #### A 1C #### [facility] [address] [place] [address] Dr. Alexsander Dickinson MCH (RBC) [Entitic mass] 27.0 pg Normal 26.7-34.0 [facility] Comment on above: Performed By: #### A 1C #### [facility] [address] [place] [address] Dr. Alexsander Dickinson MCHC (RBC) [Mass/Vol] 33.3 g/dL Normal 29.9-35.2 [facility] Comment on above: Performed By: #### A 1C #### [facility] [address] [address] [address] Alexsander Dickinson MCV (RBC) [Entitic vol] 81.0 fL Normal 81.0-99.0 [facility] Comment on above: Performed By: #### A 1C #### [facility] [address] [address] [address] Alexsander Dickinson MONO # 0.5 103/ul Normal 0.3-0.8 [facility] Comment on above: Performed By: #### A 1C #### [facility] [address] [place] [address] Dr. Alexsander Dickinson Monocytes/100 WBC (Bld) 6.0 % Normal 1.7-12.0 [facility] Comment on above: Performed By: #### A 1C #### [facility] [address] [place] [address] Dr. Alexsander Dickinson NEUT # 5.9 103/ul Normal 1.4-6.5 [facility] Comment on above: Performed By: #### A 1C #### [facility] [address] [place] [address] Dr. Alexsander Dickinson Neutrophils/100 WBC (Bld) 69.0 % Normal 43.0-75.0 [facility] Comment on above: Performed By: #### A 1C #### [facility] [address] [place] [address] Dr. Alexsander Dickinson Platelet mean volume (Bld) [Entitic vol] 10.5 fL Normal 9.5-13.5 [facility] Comment on above: Performed By: #### A 1C #### [facility] [address] [place] [address] Dr. Alexsander Dickinson PLT 275 103/ul Normal 150-450 [facility] Comment on above: Performed By: #### A 1C #### [facility] [address] [place] [address] Dr. Alexsander Dickinson RBC 4.22 106/ul Normal 4.20-5.40 [facility] Comment on above: Performed By: #### A 1C #### [facility] [address] [place] [address] Dr. Alexsander Dickinson WBC 8.6 103/ul Normal 4.0-11.0 [facility] Comment on above: Performed By: #### A 1C #### [facility] [address] [place] [address] Dr. Alexsander Dickinson LDHon 02-01-2023 LDH 124 U/L Normal 81-234 [facility] Comment on above: Performed By: #### C MP, LDH, URIC #### [facility] [address] [place] [address] Dr. Alexsander Dickinson POINT OF CARE GLUCOSEon Glucose [Mass/Vol] 98 mg/dL Normal 74-106 [facility] Comment on above: Performed By: #### A 1C #### [facility] [address] [place] [address] Dr. Alexsander Dickinson PROF 14(COMP METB)on 023 Albumin [Mass/Vol] 2.5 g/dL Critically low 3.4-5.0 [facility] Comment on above: Performed By: #### C MP, LDH, URIC #### [facility] [address] [place] [address] Dr. Alexsander Dickinson Albumin/Globulin [Mass ratio] 0.6 {ratio} Normal [facility] Comment on above: Performed By: #### C MP, LDH, URIC #### [facility] [address] [place] [address] Dr. Alexsander Dickinson ALP [Catalytic activity/Vol] 138 U/L Critically high 46-116 [facility] Comment on above: Performed By: #### C MP, LDH, URIC #### [facility] [address] [place] [address] Dr. Alexsander Dickinson ALT [Catalytic activity/Vol] 15 U/L Normal 14-59 [facility] Comment on above: Performed By: #### C MP, LDH, URIC #### [facility] [address] [place] [address] Dr. Alexsander Dickinson Anion gap [Moles/Vol] 14.5 mmol/L Normal [facility] Comment on above: Performed By: #### C MP, LDH, URIC #### [facility] [address] [address] [address] Alexsander Dickinson AST [Catalytic activity/Vol] 8 U/L Critically low 15-37 [facility] Comment on above: Performed By: #### C MP, LDH, URIC #### [facility] [address] [address] [address] Alexsander Dickinson Bilirubin [Mass/Vol] 0.2 mg/dL Normal 0.2-1.0 [facility] Comment on above: Performed By: #### C MP, LDH, URIC #### [facility] [address] [address] [address] Alexsander Dickinson Calcium [Mass/Vol] 8.6 mg/dL Normal 8.5-10.1 [facility] Comment on above: Performed By: #### C MP, LDH, URIC #### [facility] [address] [place] [address] Dr. Alexsander Dickinson Chloride [Moles/Vol] 103 mmol/L Normal 98-107 [facility] Comment on above: Performed By: #### C MP, LDH, URIC #### [facility] [address] [address] [address] Alexsander Dickinson CO2 [Moles/Vol] 23.7 mmol/L Normal 21.0-32.0 [facility] Comment on above: Performed By: #### C MP, LDH, URIC #### [facility] [address] [address] [address] Alexsander Dickinson Creatinine [Mass/Vol] 0.61 mg/dL Normal 0.55-1.02 [facility] Comment on above: Performed By: #### C MP, LDH, URIC #### [facility] [address] [address] [address] Alexsander Dickinson EGFR-AF [place] ISLANDER >60 Normal >=60 [facility] Comment on above: Performed By: #### C MP, LDH, URIC #### [facility] [address] [place] [address] Dr. Alexsander Dickinson EGFR-NON AF [place]ER >60 Normal >=60 [facility] Comment on above: Performed By: #### C MP, LDH, URIC #### [facility] [address] [address] [address] Alexsander Dickinson Globulin (S) [Mass/Vol] 4.1 g/dL Normal [facility] Comment on above: Performed By: #### C MP, LDH, URIC #### [facility] [address] [address] [address] Alexsander Dickinson Glucose [Mass/Vol] 123 mg/dL Critically high 74-106 [facility] Comment on above: Performed By: #### C MP, LDH, URIC #### [facility] [address] [place] [address] Dr. Alexsander Dickinson Potassium [Moles/Vol] 4.2 mmol/L Normal 3.5-5.1 [facility] Comment on above: Performed By: #### C MP, LDH, URIC #### [facility] [address] [place] [address] Dr. Alexsander Dickinson Protein [Mass/Vol] 6.6 g/dL Normal 6.4-8.2 [facility] Comment on above: Performed By: #### C MP, LDH, URIC #### [facility] [address] [place] [address] Dr. Alexsander Dickinson Sodium [Moles/Vol] 137 mmol/L Normal 136-145 [facility] Comment on above: Performed By: #### C MP, LDH, URIC #### [facility] [address] [place] [address] Dr. Alexsander Dickinson Urea nitrogen [Mass/Vol] 5.0 mg/dL Critically low 7.0-18.0 [facility] Comment on above: Performed By: #### C MP, LDH, URIC #### [facility] [address] [place] [address] Dr. Alexsander Dickinson Urea nitrogen/Creatinine [Mass ratio] 8.2 mg/mg Normal [facility] Comment on above: Performed By: #### C MP, LDH, URIC #### [facility] [address] [place] [address] Dr. Alexsander Dickinson PROTIMEon 02-01-2023 INR Coag (PPP) [Relative time] {INR} Normal [facility] Comment on above: Performed By: #### H BSANS #### [facility] [address] [place] [address] Dr. Alexsander Dickinson INR GUIDELINES SEE BELOW Normal [facility] Comment on above: Result Comment: CAROLEE RED INR: 2.0 - 3.0 CONDITIONS NOT LISTED BELOW 2.5 - 3.5 FOR PROSTHETIC HEART VALVE REPLACEMENT 2.5 - 3.5 RECURRENT THROMBOSIS Performed By: #### H BSANS #### [facility] [address] [place] [address] Dr. Alexsander Dickinson PT Coag (PPP) [Time] 9.2 s Normal 9.0-11.6 [facility] Comment on above: Performed By: #### H BSANS #### [facility] [address] [place] [address] Dr. Alexsander Dickinson PTTon 02-01-2023 aPTT Coag (Bld) [Time] 25.9 s Normal 22.3-36.2 [facility] Comment on above: Performed By: #### H BSANS #### [facility] [address] [place] [address] Dr. Alexsander Dickinson TYPE AND SCREENon 02-01-2023 TYPE AND SCREEN Negative Normal [facility] Comment on above: Performed By: #### A FPMAT #### [facility] [address] [place] [address] Dr. Alexsander Dickinson URIC ACID SERUMon 02-01-2023 Urate [Mass/Vol] 5.5 mg/dL Normal 2.6-6.0 [facility] Comment on above: Performed By: #### C MP, LDH, URIC #### [facility] [address] [place] [address] Dr. Alexsander Dickinson US PREG BIOPHY W [...] by: DEE GALLEGOS Date: 2023-02-01 15:04 Normal [facility] US PREG BIOPHY W NON STRESSo [...] by: SEBASTIAN HENRY Date: 2023-01-25 15:18 Normal [facility] US PREG BIOPHY W NON STRESSo [...] by: DEE GALLEGOS Date: 2023-01-19 06:16 Normal [facility] US PREG BIOPHY W NON STRESSo [...] DEE GALLEGOS Date: 2023-01-11 15:38 Normal [facility] US PREG GROWTHon 01-11-2023 US PREG [...] DEE GALLEGOS Date: 2023-01-11 16:42 Normal [facility] GTT 3 HR PREGon 12-01-2022 Glucose [Mass/Vol] 104 mg/dL Normal 74-106 [facility] Comment on above: Performed By: #### A 1C #### [facility] [address] [address] [address] Alexsander Dickinson Glucose [Mass/Vol] 182 mg/dL Normal [facility] Comment on above: Performed By: #### A 1C #### [facility] [address] [address] [address] Alexsander Dickinson Glucose [Mass/Vol] 114 mg/dL Normal [facility] Comment on above: Performed By: #### A 1C #### [facility] [address] [address] [address] Alexsander Dickinson Glucose [Mass/Vol] 73 mg/dL Normal [facility] Comment on above: Performed By: #### A 1C #### [facility] [address] [place] [address] Dr. Alexsander Dickinson PAP ACOG PANEL 2: 20 to 28on 11-18-2022 . . Normal [facility] Comment on above: Performed By: #### A 1C #### [facility] [address] [place] [address] Dr. Alexsander Dickinson Age Gdln ACOG Testing 21-29 [facility] Comment on above: Performed By: #### A 1C #### [facility] [address] [place] [address] Dr. Alexsander Dickinson DIAGNOSIS: Comment [facility] Comment on above: Result Comment: NEGA TIVE FOR INTRAEPITHELIAL LESION OR MALIGNANCY. Performed By: #### A 1C #### [facility] [address] [place] [address] Dr. Alexsander Dickinson Methodology: Comment [facility] Comment on above: Result Comment: This liquid based ThinPrep(R) pap test was screened with the use of an image guided system. Performed By: #### A 1C #### [facility] [address] [place] [address] Dr. Alexsander Dickinson Note: Comment [facility] Comment on above: Result Comment: The Pap smear is a screening test designed to aid in the detection of premalignant and malignant conditions of the uterine cervix. It is not a diagnostic procedure and should not be used as the sole means of detecting cervical cancer. Both false-positive and false-negative reports do occur. . Performed By: #### A 1C #### [facility] [address] [place] [address] Dr. Alexsander Dickinson Performed by: Comment [facility] Comment on above: Result Comment: Cici Clarke, Out Patient Therapist (ASCP) Performed By: #### A 1C #### [facility] [address] [place] [address] Dr. Alexsander Dickinson Reflex Criteria: Comment [facility] Comment on above: Result Comment: The HPV DNA reflex criteria were not met with this specimen result therefore, no HPV testing was performed. . Performed By: #### A 1C #### [facility] [address] [place] [address] Dr. Alexsander Dickinson Specimen adequacy: Comment Normal [facility] Comment on above: Result Comment: Sati sfactory for evaluation. No endocervical component is identified. Performed By: #### A 1C #### [facility] [address] [place] [address] Dr. Alexsander Dickinson CHLAMYDIA/GONOCOCCUS ZUNILDA (SW AB/URINE/PAPon 11-17-2022 Chlamydia trachomatis, ZUNILDA Negative Normal Negative [facility] Comment on above: Performed By: #### A 1C #### [facility] [address] [place] [address] Dr. Alexsander Dickinson Neisseria gonorrhoeae, ZUNILDA Negative Normal Negative [facility] Comment on above: Performed By: #### A 1C #### [facility] [address] [place] [address] Dr. Alexsander Dickinson VAGINITIS/VAGINOSIS DNA PROB Jose De Jesus 11-16-2022 Reema species Negative Normal Negative [facility] [facility] Comment on above: Performed By: #### V AGINT #### [facility] [address] [place] [address] Dr. Alexsander Dickinson Gardnerella vaginalis Negative Normal Negative [facility] Comment on above: Performed By: #### V AGINT #### [facility] [address] [place] [address] Dr. Alexsander Dickinson Trichomonas vaginalis Negative Normal Negative [facility] Comment on above: Performed By: #### V AGINT #### [facility] [address] [place] [address] Dr. Alexsander Dickinson US PREG INCOMPLETE ANATOMYon 11-14-2022 US PREG INCOMPLETE ANATOMY EXAMINATION: US PREG INCOMPLETE ANATOMY HISTORY: screening COMPARISON: No relevant comparison available. FINDINGS: Heart rate: 150 bpm position: Variable Anatomy: 4.8 x 5.8 mm choroid plexus cyst is again identified IMPRESSION: Stable choroid plexus cyst Electronically authenticated by: SEBASTIAN HENRY Date: 2022-11-14 16:19 Normal [facility] FREE T4on 10-19-2022 Free T4 [Mass/Vol] 0.89 ng/dL Normal 0.76-1.46 [facility] Comment on above: Performed By: #### H BSANS #### [facility] [address] [place], [place] [address] Dr. Alexsander Dickinson TSHon 10-19-2022 TSH 1.303 uIU/mL Normal 0.358-3.740 [facility] Comment on above: Performed By: #### H BSANS #### [facility] [address] [place], [place] [address] Dr. Alexsander Dickinson US PREG ANATOMY SINGLEon [...] DEE GALLEGOS Date: 2022-10-17 20:42 Normal [facility] AFP MATERNAL FOR SPINA BIFID Aon 10-11-2022 AFP MoM 1.49 Normal [facility] Comment on above: Performed By: #### A FPMAT #### [facility] [address] [place] [address] [address] Alexsander Dickinson AFP Value 60.8 ng/mL Normal [facility] Comment on above: Performed By: #### A FPMAT #### [facility] [address] [address] [address] Alexsander Dickinson AFP, Serum for Spina Bifida Report Normal [facility] Comment on above: Performed By: #### A FPMAT #### [facility] [address] [address] [address] Alexsander Dickinson Comment Comment Normal [facility] Comment on above: Result Comment: Niurka Patricia, Ph.D., [facility] Director . References: Available Upon Request. . Multiples Of Median Cutoffs For AFP Elevations Fonseca 2.5 Black 2.8 IDD 2.0 Twins 4.5 Abbreviation Definitions IDD - Insulin Dep Diabetes OSBR - Open Spina Bifida Risk . For further inquiries contact [employer] at [phone]. . This test was developed and its performance characteristics determined by [employer]. It has not been cleared or approved by the Food and Drug Administration. Performed By: #### A FPMAT #### [facility] [address] [place] [address] Dr. Alexsander Tiwari Age Collection Date 19.4 weeks Normal [facility] Comment on above: Performed By: #### A FPMAT #### [facility] [address] [address] [address] Alexsander Dickinson Gestat, Age Based on NILE Normal [facility] Comment on above: Result Comment: 02/2023 Recalculations are not recommended when gestational dating by LMP and ultrasound are within 10 days. Performed By: #### A FPMAT #### [facility] [address] [place] [address] Dr. Alexsander Dickinson Insulin Dep Diabetes No Normal [facility] Comment on above: Performed By: #### A FPMAT #### [facility] [address] [place] [address] Dr. Alexsander Dickinson Interpretation Comment Normal [facility] Comment on above: Result Comment: Inte [...] Customer Services to discuss available options. The [employer] recommends amniocentesis be offered to women age 35 and older. Performed By: #### A FPMAT #### [facility] [address] [place] [address] Dr. Alexsander Dickinson [age] Normal [facility] Comment on above: Performed By: #### A FPMAT #### [facility] [address] [place] [address] Dr. Alexsander Dickinson Multiple Gestation No Normal [facility] Comment on above: Performed By: #### A FPMAT #### [facility] [address] [place] [address] Dr. Alexsander Dickinson OSBR Risk 1 [place] [address] Normal [facility] Comment on above: Performed By: #### A FPMAT #### [facility] [address] [place] [address] Dr. Alexsander Dickinson PDF . Normal [facility] Comment on above: Performed By: #### A FPMAT #### [facility] [address] [place] [address] Dr. Alexsander Dickinson Race Normal [facility] Comment on above: Performed By: #### A FPMAT #### [facility] [address] [place] [address] Dr. Alexsander Dickinson Test Results: Negative Normal The [facility] Comment on above: Performed By: #### A FPMAT #### [facility] [address] [place] [address] Dr. Alexsander Dickinson GTT 3 HR PREGon 09-29-2022 Glucose [Mass/Vol] 99 mg/dL Normal 74-106 [facility] Comment on above: Performed By: #### A FPMAT #### [facility] [address] [place] [address] Dr. Alexsander Dickinson Glucose [Mass/Vol] 173 mg/dL Normal [facility] Comment on above: Performed By: #### A FPMAT #### [facility] [address] [place] [address] Dr. Alexsander Dickinson Glucose [Mass/Vol] 151 mg/dL Normal [facility] Comment on above: Performed By: #### A FPMAT #### [facility] [address] [place] [address] Dr. Alexsander Dickinson Glucose [Mass/Vol] 76 mg/dL Normal [facility] Comment on above: Performed By: #### A FPMAT #### [facility] [address] [place] [address] Dr. Alexsander Dickinson GLUCOSE - 1HRon 09-20-2022 Glucose [Mass/Vol] 159 mg/dL Critically high 74-106 T [facility] Comment on above: Performed By: #### H BSANS #### [facility] [address] [place] [address] Dr. Alexsander Dickinson HEP B SURFACE ANTIGEN SCREEN on 08-17-2022 HBsAg Screen Negative Normal Negative [facility] Comment on above: Performed By: #### H BSANS #### [facility] [address] [place] [address] Dr. Alexsander Dickinson HEPATITIS C VIRUS AB W/ REFL EX QUANTon 08-17-2022 HCV AB <0.1 Normal 0.0-0.9 [facility] Comment on above: Performed By: #### A 1C #### [facility] [address] [place] [address] Dr. Alexsander Dickinson Interpretation: Comment Normal [facility] Comment on above: Result Comment: Nega tive Not infected with HCV, unless recent infection is suspected or other evidence exists to indicate HCV infection. Performed By: #### A 1C #### [facility] [address] [place] [address] Dr. Alexsander Dickinson HIV 1 AND 2 WITH REFLEXon HIV Screen 4th Generation wRfx Non-Reactive Normal Non Reactive [facility] Comment on above: Result Comment: HIV Negative HIV-1/HIV-2 antibodies and HIV-1 p24 antigen were NOT detected. There is no laboratory evidence of HIV infection. Performed By: #### H IV12 #### [facility] [address] [place] [address] [address] Alexsander Dickinson RPR QUANTon 08-17-2022 Rapid Plasma Reagin, Quant Non-Reactive Normal NonRea<1:1 [facility] Comment on above: Result Comment: Plea se Note: This test does not meet current guidelines for screening and diagnosis of syphilis. This test is intended for following treatment response in patients being treated for syphilis infection. To screen for syphilis infection, a reflex cascade that includes both RPR and a treponema-specific assay should be utilized, such as Treponema pallidum (Syphilis) Screening [place] (021204) or Rapid Plasma Reagin (RPR) Test With Reflex to Quantitative RPR and Confirmatory Treponema pallidum Antibodies (477971). Performed By: #### H BSANS #### [facility] [address] [place] [address] Dr. Alexsander Dickinson RUBELLA AB IGGon 08-17-2022 Rubella Antibodies, IgG 11.90 index Normal Immune >0.99 [facility] Comment on above: Result Comment: Non- immune <0.90 Equivocal 0.90 - 0.99 Immune >0.99 Performed By: #### H BSANS #### [facility] [address] [place] [address] Dr. Alexsander Dickinson CBC AUTO DIFFon 08-16-2022 BASO # 0.1 103/ul Normal 0.0-0.1 [facility] Comment on above: Performed By: #### H BSANS #### [facility] [address] [place] [address] Dr. Alexsander Dickinson Basophils/100 WBC (Bld) 0.6 % Normal 0.2-2.0 [facility] Comment on above: Performed By: #### H BSANS #### [facility] [address] [place] [address] Dr. Alexsander Dickinson EO # 0.1 103/ul Normal 0.0-0.7 [facility] Comment on above: Performed By: #### H BSANS #### [facility] [address] [place] [address] Dr. Alexsander Dickinson Eosinophils/100 WBC (Bld) 0.9 % Normal 0.9-7.0 [facility] Comment on above: Performed By: #### H BSANS #### [facility] [address] [place] [address] Dr. Alexsander Dickinson Erythrocyte distribution width (RBC) [Ratio] 12.9 % Normal 11.0-15.0 [facility] Comment on above: Performed By: #### H BSANS #### [facility] [address] [place] [address] Dr. Alexsander Dickinson Hematocrit (Bld) [Volume fraction] 39.0 % Normal 36.0-48.0 [facility] Comment on above: Performed By: #### H BSANS #### [facility] [address] [place] [address] Dr. Alexsander Dickinson Hemoglobin (Bld) [Mass/Vol] 12.9 g/dL Normal 12.0-16.0 [facility] Comment on above: Performed By: #### H BSANS #### [facility] [address] [place] [address] Dr. Alexsander Dickinson IG # 0.04 10e3/ul Critically high 0.00-0.03 [facility] Comment on above: Performed By: #### H BSANS #### [facility] [address] [place] [address] Dr. Alexsander Dickinson IG % 0.4 % Normal 0.0-0.5 [facility] Comment on above: Performed By: #### H BSANS #### [facility] [address] [place] [address] Dr. Alexsander Dickinson LYMPH # 2.4 103/ul Normal 1.2-3.8 [facility] Comment on above: Performed By: #### H BSANS #### [facility] [address] [place] [address] [address] Alexsander Dickinson Lymphocytes/100 WBC (Bld) 26.3 % Normal 20.5-60.0 [facility] Comment on above: Performed By: #### H BSANS #### [facility] [address] [place] [address] [address] Alexsander Dickinson MANUAL DIFF REQ NO Normal [facility] Comment on above: Performed By: #### H BSANS #### [facility] [address] [place] [address] [address] Alexsander Dickinson MCH (RBC) [Entitic mass] 28.4 pg Normal 26.7-34.0 [facility] Comment on above: Performed By: #### H BSANS #### [facility] [address] [address] [address] Alexsander Dickinson MCHC (RBC) [Mass/Vol] 33.1 g/dL Normal 29.9-35.2 [facility] Comment on above: Performed By: #### H BSANS #### [facility] [address] [address] [address] Alexsander Dickinson MCV (RBC) [Entitic vol] 85.7 fL Normal 81.0-99.0 [facility] Comment on above: Performed By: #### H BSANS #### [facility] [address] [place] [address] [address] Alexsander Dickinson MONO # 0.6 103/ul Normal 0.3-0.8 [facility] Comment on above: Performed By: #### H BSANS #### [facility] [address] [place] [address] [address] Alexsander Dickinson Monocytes/100 WBC (Bld) 6.8 % Normal 1.7-12.0 [facility] Comment on above: Performed By: #### H BSANS #### [facility] [address] [place] [address] [address] Alexsander Dickinson NEUT # 5.8 103/ul Normal 1.4-6.5 [facility] Comment on above: Performed By: #### H BSANS #### [facility] [address] [address] [address] Alexsander Dickinson Neutrophils/100 WBC (Bld) 65.0 % Normal 43.0-75.0 [facility] Comment on above: Performed By: #### H BSANS #### [facility] [address] [address] [address] Alexsander Dickinson Platelet mean volume (Bld) [Entitic vol] 9.9 fL Normal 9.5-13.5 [facility] Comment on above: Performed By: #### H BSANS #### [facility] [address] [place] [address] [address] Alexsander Dickinson PLT 275 103/ul Normal 150-450 [facility] Comment on above: Performed By: #### H BSANS #### [facility] [address] [place] [address] Dr. Alexsander Dickinson RBC 4.55 106/ul Normal 4.20-5.40 [facility] Comment on above: Performed By: #### H BSANS #### [facility] [address] [place] [address] Dr. Alexsander Dickinson WBC 8.9 103/ul Normal 4.0-11.0 [facility] Comment on above: Performed By: #### H BSANS #### [facility] [address] [place] [address] Dr. Alexsander Dickinson CULTURE URINEon 08-16-2022 CULTURE URINE Culture Observations: MODERATE GROWTH OF MIXED GENITAL JOHN. NO POTENTIAL PATHOGENS SEEN. Normal [facility] Comment on above: Performed By: #### A FPMAT #### [facility] [address] [place] [address] Dr. Alexsander Dickinson GLYCOHEMOGLOBIN A1Con 2021 ADA RECOMMENDATION SEE BELOW Normal [facility] Comment on above: Result Comment: ADA RECOMMENDED LIMIT 4.0 - 6.0 ADA THERAPEUTIC TARGET < 7.0 ACTION SUGGESTED > 7.0 Performed By: #### A 1C #### [facility] [address] [place] [address] Dr. Alexsander Dickinson Glucose [Mass/Vol] 111 mg/dL Normal [facility] Comment on above: Performed By: #### A 1C #### [facility] [address] [place] [address] [address] Alexsander Dickinson HbA1c (Bld) [Mass fraction] 5.5 % Normal 4.5-6.2 [facility] Comment on above: Performed By: #### A 1C #### [facility] [address] [place] [address] [address] Alexsander Dickinson LATRELL BOX TEST PT SEND OUTo n 08-16-2022 SENT TO REF LAB 08/16/[address] [facility] Comment on above: Performed By: #### N BOX #### [facility] [address] [place] [address] [address] Alexsander Dickinosn TYPE AND SCREENon 08-16-2022 TYPE AND SCREEN Negative Normal [facility] Comment on above: Performed By: #### A FPMAT #### [facility] [address] [place] [address] [address] Alexsander Dickinson US PREG TVon 07-21-2022 [...] DEE GALLEGOS Date: 2022-07-20 22:25 Normal [facility] US PREG TVon 07-13-2022 US PREG TV EXAMINATION: US PREG TV HISTORY: Missed period COMPARISON: 03/09/2022 FINDINGS: Fonseca intrauterine gestation Gestational sac: 1.7 cm, 6 weeks 2 days Yolk sac: 1.7 mm Gilead-rump length: 5.8 mm, 6 weeks 3 days Heart rate: 125 bpm Uterus is normal in appearance, anteverted, retroflexed The ovaries are normal in appearance. Cervix: Closed, 3.9 cm small amount of fluid in the endocervical canal IMPRESSION: Viable fonseca intrauterine gestation measuring 6 weeks 3 days Electronically authenticated by: SEBASTIAN HENRY Date: 2022-07-13 17:05 Normal [facility] Coding Summaryon 03-17-2022 Coding Summary HTMLBase 64 YoskkucjQLl5hKi+PGhl YWQ+KY3CYCZhU37quGMr xK1BH5vRSJ9HRUEBFBOZ OQ9KVB4eeIQ8CZvcH7Xn biAv ZlcufUVuOQ46CCl0UGM7 vHlaTMjrtO7acHIbK5y8 HbQpSN50rO13PGkmAYCz OxQ0KoTzckvreVTt Y7nyXhUnnGOuUun+PHRh YmxlIHdpZHRoPScxMDAl NoQyiYdqBG6tCg7sPWUp LWNvbGxhcHNlOiBj j6iiGENkNYzfFF1ryGqu A5IsoDZ5HVCbx6n0Zc99 dHI+YOGhOWM9fJfdUQgs a359XzRlc7mySAU6 hFCtYNqxHWJ4X64vc6H4 AQTuBARqAGJ6yBX3nQ8r pCuebifoD2JgjYGeMsG3 DUW6wWMtoK3rkVrm hyvviC0pEdl+J70FIN0E QJDQIG3OOcl5F3MjJufg dHI+PM00ZXWaCO10vEIx kNCmm1opiZs2EeOm QOLjDUU0ePbcDFmyg5Hi RCMnC43txGIpz9K3IADu mPjstVTlSwZxuYU3mW0i QXodefsja9rgwywj Ninaq6poki24cH23B81t VReqYMTiWMM1KLPePDTf cMgyvc7tmB6pSh6+IDxj m7eca8csiRs8PgLd GKKvtgMxaTdaFGG1v2Jp Ha38P8NqnCuse1ZeMvw3 ld63nIRyb4M7dAW0EArh LNGarQ9zYCvvOvM8 TYRsImWcpK73nFHrLCfe Sb4usSiduOfcEY0zGJYe eekwSDWfdD2yTCMieULf tLpoEB2zAHBemdvp y215JdWnNWG9WEIpgGMe H1ZngE6nAxZjTTGkFQRj V2EekSSpYXhaM389PPfb LxV7IHRhdpFhX8Ep VLKmeYwnIgY6w2P8Xm7H b2CvlezhHQI2IWplVDS6 JsUgZlPbJfV8B3VvDub2 TZDrfTxzHM5rC1Op EDSdoqrbnnymmYP5LPMe GXCoeV94oPBiQUmtIx7v j0C0u091IZKlBZUvzH91 Ca3pdYspNWPrhACV uC6gjydla7fifxqtBfQc HXHmIZg6RLh9RVMutYjs KdKuPRY7TkB4ZXM8aGTi qT4wiCtzdwuseB8r Oyc+M70quL6xLJM0BWE3 ivsyUQRuvwUsLW16JJ91 C6CjUdaukBVpgXM+PGRp reJoyQlbBD6bBjUs x4gsl8QfKUncN8ZdIFOn CRhnClj9GTBwYPO1nGP9 fE9qBQTbVWbgj9P3eCF6 O3MndwBkld8va2xf EJOsDEjvE24wkJXpx7V1 PYDldTQ4KWVfxMfvQhQv hG87Fvb+CPJgzUwcw7Dc Fojab6yfv3cxnMf1 IjMwJSIgdmFsaWduPSJ0 f2EtPz21R53cTOxqMGZe VJGlXAYaJFRzqUgqnj8v hA2zCp0+PGNvbCB3 cIM2bE3zCDGbZcR0MAcw I218NdGwoFDyGinfq7pg x6essHj3ZwLcYSRaavSv kJluLIT0r6UxTe87 W36vSGtzZFYcTGHnPFUi VZPkiFeboh7lhL1aEx6+ ID0jc8blyf40rD71wVV+ UOUtDYX0rTowNTmg VVVhkJ8uHIscOwM5HQUc ZoUqhQ92hIQgPLyeAk8z lWwxiHlwBP4hGFRxbobf d974XdDpa7ldQPBm pOQjDQgmPFI4Z27vk6W1 DAJeESRdIPD9mWE6aH0i bGlnbjogbGVmdDsgdmVy nPymJPhqKQdzA726 IHRvcDsnPlBhdGllbnQg VxUzYOs4Y8LyDmn5BQRs eRfgTE3peILzEYxdCu4q jOzfcCsdTR3bGBEr ltwzd360WrFge0vsPMGv iMEbBMavWBA5O99lx1X0 WMUpSJKiNKC3vLO5tW3a bGlnbjogbGVmdDsg scOvgFaoOSjhITpoD579 IHRvcDsnPkJpcnRoIERh dCN7BH97PV67vULgq5M9 zYV1I4UeENIktqsa eiozpMQ3QYZeRDEhrN31 Vb4agMseOl0dPJAcMSM0 MJOyiVZuC3GosD1dOuVm JBMcLUAlB7DorTDy FCbtE392NQsoBmJ0BGPc puLeZ4ThNMTscGyhTpY3 f8U1Zn2XO5J9QI28XZ38 iLDfb8N6iBS3G2Ef WWWgaxrdugfygYI6TNJf UOJbqK38Jc8fpTwlFg7s HFDyTWV5FQIzyHTcC4Co bV5oArLmXBVlLVOe S5XwoMZxMSbmP035PTjc QxB2UOVjnvGkR9XbWPEc fPluAeP6j9R7Ch3XDBf1 PZ72IO90wZNwy3K3 nBP3Z9FkDLJahbessqhw hEA6KMNsNVKjfE82Ba6e pDusKm6kEBOfDHD2HZVb rKYdU9ZioM4cNbJv OZWvSQMyV4SojJFlAKxp Z771VZkgXgU5RBZztqGh G6NgYJDcoIulNoM0y4J4 Vg9MFJAiMQ58KOB0 gCC3RG03UQ18K8LxRguo dGFibGU+PHRhYmxlIHdp ZHRoPScxMDAlJyBzdHls NZ0fTs9gJOFlWEOl hSfllLAuUtRzl9jbKEIm VHusID2ykWrsN6GjdIS4 NLFgz9q6Bw56B97eP5Dl dXA+HGYwaCD9wPY4 iC2rXkPkDdT4WMlzT265 UzDlqIEqMpvhw1rcs0re qAr8ZjR5NHDllyGrwPyd EEN5s7HnRr46X93i IHdpZHRoPSIxNSUiIHZh pVgosh3krM4zJr3+PGNv cGC3nES5xU7cPlNeLcK7 CByiK576CgFhqIGf Mrbpe5osa2upsNg6BqSr CNGolhTbvStrYQH4h4Qs Te86L8TnhMric7ObFvt5 tc17vVIaa3P4tDU9 J4WuVMZoigpoiHFxcGez TC3yGVTlhjtlIRHwxN0a GRUkA9v9UsTrHlS8JDht O9FifjM1DSWmoQGm ECwmCAL7R65hj8W7JUIy BNCyZMO4kFG4eR2qaXpa bjogbGVmdDsgdmVydGlj IVexLWbcE611DXAh aXfoLIHqwP4nVNJldMBu iIpuFM0yKJWvedljXjBV TExJTlMsIEFMWVNTQSBS QMUVVJk1V7CcHyb7 ZKYkyAkdFZ1zjDFdXYpn Vu8jxEwisDmeAW8iYNYr tfmmBVCcvV5tLJLwwFVr pCfwJI8xEVVvzpib x996SaHtVNN8HQSkuNBk P2FfdY9jGiQnLMCuACPh S7WjkFMqWZlgC748ZKpn PgV4OBPodzNsM3Ew RBIuiEjlFnU9k9E5Pp3l YO4dLh3tGWt4YG83WL24 pCUoz6I8jRY6W1BdZKWf pfhwodyimJX0EIOq KJIfzA37xOIhBWyoQs6g v3S3k185QNGhLAJneW78 Rh2kdFolIYNxpBSMmM6c rujcr3puxrogUtMq EGDhKVz1XOc1QVEzwIxq VuLrDXR7DsJ9YXF3aWPt tH8dlOpgfvmbeA4eQpm+ WkcoDVTypeO5G8Ju Irc6NFMwrQbbBO5dnDUv JPojTu9rkGbepQntEG0n USWpetyiFGUdwK3aFBUb gCCelProOB7pZPOf upknh441XmAiTII8VWVv zECfW8AzvG6uGyEyLCAl EWNyZ8MdgRReINyoT723 XHhtZdF0PUCojuEe L3XsDNDzkUqfCnA3y4C9 De5ZZC2VFGH3J0LhNpr9 FHYnjChkDE2atYEjAXul Ij6caApeqRvaBD0w GLQshqqgQXZuzY2bKQFm oTPgoGqwYM2zTRZjqpiz a622UpTtWGA4TXBjgNLu M3KuxM9aRpOuWZGp WGZgQ6HpzFTyMJzxV620 RVflHhC9PUXzslDbQ2Mq GGXmjJimMuZ1c3J7Fs4V UDwvdGQ+IK21gl54 X3UqYewiFiw4HHDsQBR7 aTJ6eY9mDUTiJTgra8D3 dHS9B7BmmdYwnd3uj2ly ZKJsDAcmN67mpISu e7H1LFIkkJR1UDEdjFxn StVojU18Qds+PGNvbGdy n0FoXehzb5tyw2cceJz9 IjMwJSIgdmFsaWdu MAG3k6MqGc29V69mOWms ZHRoPSIzMCUiIHZhbGln wa9ejH2fNd7+PGNvbCB3 oXH7kO3uHvZkDzG8 ACkyJ821WzPtvTOlKccs q0hlo5dqbBm1UfFkLSZg xwQsaNdkYYJ8r2LmVt07 Y4WjfVxqg9AiJyj3 ec70mTJob2G9yWP5G4Jl CSNdoobfwVOzpUfrLC0w MUUwrjmdLGEitL6tKJLl K4l5AvIfInY8IKjh C7TqurM3TCWgmHDuPWJa pJOTvG0tlljqv5pugpku YbPwQKLkTHn4DTg3AXWr fWtlKxQuTMO1MyC2 PQF6xVCcqV3qrOofwgmk xX8cYny+INq0t4ejiVIt KA1hdXR5HX19PQ55cNRw e5K5kLZ7V0MqZOLi pqltokhqwUH7OAAiNDCl xU10Sk0srCfpHv9wROIz CLT7XKMosESzI0GryT8w UyGsYBQcXKEpU1Xw cKOdZAlkV114RYkqJnZ1 BWUfdrOjJ6AhYHKahShr WkA8c0L5Ok5VKV52HC92 MX54pXXnh4E1tSA6 I7ZdPWDswlofzesgsOX1 JAEoXTKkkW99Mf5ldHxd Bw8jWUGsHFA9KVMxhDTj L8DdiU5wAjLtWBSf RHBiY8AhhTWoHKybD119 XOzwCxV7BVHxoiWxY6Yr UPZrzZsyNnF1a4E7Ai0P Tb48XL93SP76dKLp m2O8cDD7M1PmXYWotnvy qkggdPK6FRIhRDHrcR78 Wh9bgWsqHi7gOWVcDFJ3 LHJigEXbJ1VsoY0k JaKpAWYnFWWbZ8CzxUFa AQihS987RXsrZtZ4MRQm leNxO4HvVCRaiAxgPcQ1 k0V5Lw4ENNhnblb7 Z7WpVapnvYG+OK23IKWc AV14zLBxhKMsr4qgwVz6 DiRvSFVwADB8lCjpYJtv j3UhAFZzO87nxUWc c2U (more content not included)... [facility] Coding Summary HTMLBase 64 DztyknhvBTk5aZw+PGhl YWQ+DM2QJORiZ03xaXPr mE5JI0yYLD9VPTCVSQYA ZM0WNL3cnDO9QIetJ0Cr biAv IvmdnFUqQN73CJi3OBT2 tDmvZLtrcQ8ikLZxD8a6 HbEcQD48zS11EIerDRNu UaZ8GbVrqhhbyGWz Z4qnIrHipTChOnt+PHRh YmxlIHdpZHRoPScxMDAl VkOhrLqhNR2fQm7hTBZw LWNvbGxhcHNlOiBj g5ovYROeTArlUU1puQvn M9MjpMK1XXOmy8p7Qg67 dHI+BBFbQTZ0dHmyYOuk e762DfMqi0vqNWQ5 eDGdYZtmNIJ7B95pk8R8 QJTuQOFjQUY1rRW0jC0q jViyljbpX0FwbBPyJeL0 BIN6hKGhyS8zwIwy cfdsxW9uFnu+U81EGO9V OALFUU8WJgm4U8HtPdrl dHI+GX03RVDrGH08fMQg aYDsd3qmjYm3XuHt IUKfTJN6eNcxQPldc8Ss TNAuD40aqNQij9Q5GADw iUmegZVrNmQqdHM0jF0o MKdbsirmk3ikoock Gpcjc8nvez82fT60O52x NLheJMZrGBI5UDNuVVIh yAvajr0jrW7sLl3+IDxj x8uzd0aylFx6XsYn MUBapmJlcUohLIG7x3Bd Pq28Q6LrxAxbn5KhCrk3 bl73oGPpl1Q7hLO5GWsp EAZasP8aBAtkNqG7 BYJaEbXabQ78kBVtIPnz Lk3fxOjnfKvzOZ4aWLLj clzkJEMldX2oBBBicSPz iYuaWC4pRRJaepck r029TdSfBFB9KXCmyEOs O0FnuF3fPgBoLCGwFYLz Q9RqvSRfWVcyV127ZRki LeC7YIIxpzWdE2Ic YAGnoPtpDpR8j4C9Wt6H w5BjqgsoBPP2PTpjDLF1 PxVzYjOhQrX4B5MxTuu6 VPUebRlnCV7rB7Zd MJJumiiazlymyUB6VSRv GAOjsQ09mDUyVGeoMk0d q7A0v505HZYvSFUyeV17 Zz4gaDjoKRNrxWXX mM3krwijw6gwixkdKaQe PWXkQLw3WQw0DCFdeYim TcMeBFA0CyL2BUQ9fZOt lA5gyRftmgkihF5h Oyc+T28ikO2zVNL9LMC0 aqaiDGGwaqVsKE58NV74 A6BwSyxxzTHbaDX+PGRp adNcmHjqCQ0lHcVe m7qgh8BjCEzqL8HzGQSb GWdmAzs9AKWeZUF0tCP8 rA5eMXRqFHcek4K8rXN4 I6QxaeHtfq1aj4ir QNCiAOnkF93pgWDwt0S9 WJUvjAE8EYZvqDrzOjOv kW29Eim+DZUqfDvjw8Bh Qqznb9hlb2weiCa0 IjMwJSIgdmFsaWduPSJ0 m4YaMr14K57fFJpvPCZw FRJkTUAxTXSgfZgyrh3d hR8yMd4+PGNvbCB3 kRC2kJ5aKHIqRbX3BKtg Y717YeXanQNmSfhkr9pi s7wmjUz7WnAwVFHspiTh nRwcERE1i8MfTq03 I16aIFxkMUWyZNIvUWZb LYVawDlsiw7qfS4nSj2+ DB5qn4wsdg78zZ32iEH+ WYJvEIG3jUgyRQrw DPXyqL3qLRksKcX0DXGq UbGmgQ04zFViFBulWm6r sNdniSsxFU2iYXHrlznq y183KxNqe5emTDWv aNDnWPmgZVX2R78ay4T3 DTYhDEZhEFL9wSB9pI0y bGlnbjogbGVmdDsgdmVy bOlxWSrqIJozO642 IHRvcDsnPlBhdGllbnQg WkYpAJk5J4BsXbw9DBDp zBnzVB6wvBPqCLfnBj9s oNnfgExfRY8sRSRe bzrvx616MzVac5mwERUx wKApEUmbBIL3H87aw0H2 KXCxDVNiMMN8bQP3aK0u bGlnbjogbGVmdDsg dnExtSonJQnfSSulT569 IHRvcDsnPkJpcnRoIERh sWJ3ID24TF53yKXxb5A5 gVZ7R3NgHMMbgzwg cbtlfRE7UQVjRUZssN31 Co3jgZccIn8qRMRcVKN3 RUWnfPFqE3FdmJ6gQkPx GQIoWYGqR3ZhqGTz PAyyA471ZBdzBoK4YBVj pxJwJ2UbKDCljIdwRfH7 z0J0Il5DN0R9BQ78CG98 nIPyc3I9wBK7U9Qm ONBsgbmcksdpfRV8KUCu IAByrR43Ft5hfGisVj7v QPEgNAA8SQJtyJFzL2Df mQ6oVwQzJAFqQHUl E0FqyYNhFHvxS840YLct XuH2IVOuxiSqK8XpVUWs lGbtEcZ3l3E6Cr5ZPHw5 AF87EA76qFIcj1L6 rON9F0PvSMBjitxsgyjv yBP7XWYqIVFojH84Ab7l pHkdRy9iSKRiOCW8WRRb kPDbH7EiwK6zFeNb LALnZQHvK6OoxNMnMUda M186CCgwVxT3IFGjnvMa D3FtBLKqyHfjJlO1x5S1 Xa5EHZNgUS31FMR1 uZP9FM75BJ71H7RvYfqe dGFibGU+PHRhYmxlIHdp ZHRoPScxMDAlJyBzdHls GR4jYt6jAKRuVUGw pGzydSZdFtQzx2ejQFMu FZwkJD6tkOlcE8DnyEW5 LGEaj3w7Oi32V33qN0Tq dXA+XMLgcOD5uIW2 aY0dXsBgIhT5MOgeQ168 NfLtvSOvCijmr9mvs5oh cSi8LrB0IZDcgwBgaFrp DLT5o3BvRr92U90q IHdpZHRoPSIxNSUiIHZh uTkvbf1ygF4sJs8+PGNv nHP6hDE5cQ1jSbMdRqE2 MZsdB660HwMfoKCe Zantq9uwv9ydqIc0BlJp MWXzefYccPqbECM8o1Lx Vw02Z9MrpWzhr9FyErg1 gb42pZWdz3R6lGU2 D8TbPQNgifqhxYCbgLoh OZ9pOABjxiuxKMXhyZ4z VKKeO9n4XnXrYzR2DFdi N0GshcK4VZPflNUy TRmmSND8G61ve1Z8HPIg HWObGFU1xBA3vM3rnJmy bjogbGVmdDsgdmVydGlj OOihWDsoF657FJJx pKgwYGPfnL8jXNGvtKTg pGthLK2tZANuyifmOyAB TExJTlMsIEFMWVNTQSBS EJCEGRu5Q1EwLtz1 BLHohSveEC3gkWQbWQwc Eh7qrDsrmNggAO8tSLHh hutcPDQhwM9kZLMmoENx jMwuOP0mJVPrhwud d178OrAsNAP8ONHgkQUi H7JgmB6yStWhOFSiPGDd Q8GrlNPhCUtjW670TNsu ImN2VNUdxsRyC7Gw IGWgjKztJsO7y4P8Tc9h IA7qPo7sLSu5TX20OM08 kUUuo0P2sZQ2J2ErQNJq lqeuklbuwJA1EYQz ZFFqiR15yAHiFIxpTy1s x0P4f131VSGoYEXalY49 Nv5utNwaYFVuuKCEuY0s tmpir8rkcghjDxPj NOOtRBr8AVw4BAQrgLwt DaZxFBN8IeS0QIN9kYBs zQ0seRrvjdncvI8tUnp+ YrdnWUCxgfT9Z9Jh Pwp4XTEklZlqPR2kpJNt ZXulEq7bdHegvOygKF3y XSSarkizYKHxcR7qWLQc uBRlbAmyYP5vMBAt aplce048SiRrREY1SMWi xVMlX3CeiC1wMrSkRWAg CYVgE9HqfFZrSGxzG235 JYgcSbL5NTWohnEw B5UdPKEopXsfPtH4p9U7 Hc7AEV1HFLE5S7FrAfb0 VNJbdDhhBJ1teNItHCmu Fp7urGnshBbpKV3c RUJfiygaDHPriA0qLWZi xDIzuLqcVE5aWTMyvifg e611HdCoFUD2XMKeaOTy U7HfnX4hSnJnWWZu AIKsN0PfoOMgSOjjT328 ZIzoRhY7QYYwplKbC0Eh RRUxfJaiWdA9u0D0Vg8K oXDyT4PwG8a0H8Am PjwvdHI+EG71RMAkNS91 eABreSMwg1roqDg1DuBr VOWlLYG6mRewBThtk5Th GBQfU64xsZWcr9S5 IGNvbGxhcHNlOyBlbXB0 sN0zJWzjszapg8nvaarg Jerzb8gkgj40rH81N09j IHdpZHRoPSIzMCUi GNYrpInvrg2kzF4pLn1+ TPFbtJE4wLF7iY4tNrTg IlN3JWcnP622JbRfgNNz Ptqsv8qll6mcxRd5 IjIwJSIgdmFsaWduPSJ0 u4BwMq67H20bIEjeHPSe IRUiEOFtWWDlgMavhf1e vL5cVf3+IS4hr2gt qj62lQ78zGL+PHRkIHN0 tCrcRMpdVQYehJ1mBJgv PmQ9LPEiWqMqrH15nCWs XXafHj0hcTaksOsv OH5wXKGeibnjp854FcQg y1pjTKDgpIBrSRedQQU9 Z38qd9N3EGDeFWXrMNF4 sZT2cC7hoUdvtguu bGVmdDsgdmVydGljYWwt DXeqG152JCGvvRrlRtFe zLLiQ6qzjyCCDN0sNfsy dGQ+WZOjCDG5oVxf KWcqDWMdeV8yWJJyL9k5 JzFtAlS9GJaaU0BvwnH8 LKWpeHYxNRGsfPNTaH7r wdoxu9ptwqyyOyRz KKGkWPi8SJs1QINbcKog UwKcPAF2AnS2HPI8uOZf rQ6vyZgodwyrfJ8fRde+ RklOOjwvdGQ+PHRk QKV3sLhaYOtwZHPmkD9d BXSjQ8v3QpNvVrM1WIng V0SejdH8IXAaqEGuTMMe oZYNxF7asgdcq8mj jecsLxZyLDBlAKh0CVa5 ZSTjgQkyDfKbUIK5DjR7 OEY7lWYnzO6uzBtrnged dB3tJao+TVJOOjwv dGQ+NFCwMYE4eNmsJUgx VENqaH7xBUXjM8a1KlGt YxR0YLqxG4PdakL7TFQe hDWjMLZwwUSNjO0j masts9zwmcsdAaDgMJAk YIi8FOu0BMBczOotFsFq LRC6SjN9BAN3jQHvkX3n lWpjdhaycW8kFwj+ DDC8BKF6RB63HY58M8Zd PjwvdGFibGU+PHRhYmxl IHdpZHRoPScxMDAlJyBz wEglLO1yOk1wZQFz LWN (more content not included)... Normal [facility] C Urineon 03-11-2022 C Urine Urine Culture ordered as a result of parameters set on specific urine dip and urine microsopic results. >3 Organisms Consistent with Contamination Recollection suggested. Normal [facility] Comment on above: Performed By: #### 1 0236423, 40730406, 7417185, 4798454290, 30382184, 1721631, 9963629296, 7221209260, 2980532291, 6187860 #### [facility] (DEFAULT) [address] [place] [address] .Auto Diff 03-09-2022 Auto Allen % 8 % Normal 11-09 [facility] Comment on above: Performed By: #### 1 5378587, 53861306, 0074804, 8065422110, 75181047, 1733444, 2677904220, 9471114081, 1352769890, 3276305 #### [facility] (DEFAULT) [address] [place] [address] Baso Abs# 0.0 x10 Normal 0.0-0.2 [facility] Comment on above: Performed By: #### 1 1647805, 83922327, 1822776, 8891098141, 80383801, 9093929, 1354543145, 0263710615, 5815457640, 7707297 #### [facility] (DEFAULT) [address] [place] [address] 28774 Basophils/100 WBC (Bld) 0.3 % Normal 0.2-2.0 [facility] Comment on above: Performed By: #### 1 5306029, 37974681, 9445530, 0789838149, 09952840, 5976869, 1288702270, 8374663654, 4790863026, 6464389 #### [facility] (DEFAULT) [address] [place] [address] 73151 Eos Abs# 0.1 x10 Normal 0.0-0.4 [facility] Comment on above: Performed By: #### 1 0769758, 96352406, 6013572, 0396209437, 23084337, 3212117, 2125294043, 4160216057, 2212247089, 0295697 #### [facility] (DEFAULT) [address] [place] [address] 77780 Eosinophils/100 WBC (Bld) 1.0 % Normal 0.9-4.0 [facility] Comment on above: Performed By: #### 1 1701850, 96676854, 0876704, 0325880476, 00173132, 7721050, 8597424595, 6656894735, 0797756835, 8854755 #### [facility] (DEFAULT) [address] [place] [address] 67871 Lymph Abs# 2.0 x10 Normal 1.3-2.9 [facility] Comment on above: Performed By: #### 1 1332815, 68766408, 4059637, 2110462827, 52802606, 9470236, 7551853741, 6939667754, 1356155782, 3423133 #### [facility] (DEFAULT) [address] [place] [address] 20281 Lymphocytes/100 WBC (Bld) 35 % Normal 14-48 [facility] Comment on above: Performed By: #### 1 4845462, 63164578, 5633030, 4795742824, 98432738, 0924004, 6970809092, 6260801280, 2475317404, 1249059 #### [facility] (DEFAULT) [address] [place] [address] 51611 Allen Abs# 0.5 x10 Normal 0.0-0.8 [facility] Comment on above: Performed By: #### 1 3823126, 39258569, 3436191, 2507777822, 61386179, 3170672, 1586219056, 4822250284, 7901925381, 9191229 #### [facility] (DEFAULT) [address] [place] [address] 86284 Neut Abs# 3.2 x10 Normal 1.5-9.2 [facility] Comment on above: Performed By: #### 1 3152813, 70202044, 4424888, 2254565142, 41256190, 4684105, 5278079149, 6611340127, 5386697941, 4583821 #### [facility] (DEFAULT) [address] [place] [address] Neutrophils/100 WBC (Bld) 55 % Normal 44-88 [facility] Comment on above: Performed By: #### 1 2324795, 35608854, 2385985, 3560518284, 84074688, 5560518, 6200394632, 3136276625, 7714666983, 1473457 #### [facility] (DEFAULT) [address] [place] [address] ABORhon 03-09-2022 ABO and Rh group Nom (Bld) Hx Check: Not Found Anti-A: 4+ Anti-B: 0 Anti-D: 4+ DCon: 0 A1: mf+ B: 4+ ABORh Interp: A POS Invalid Interpretation Code [facility] Comment on above: Performed By: #### 1 5333069, 24914799, 0242499, 5951272652, 02050592, 1588536, 8687872984, 1803536178, 2316912667, 7191543 #### [facility] (DEFAULT) [address] [place] [address] 04637 ABORh Retypeon 03-09-2022 ABO and Rh group Nom (Bld) Ordered by Discern. Anti-A: 4+ Anti-B: 0 Anti-D: 4+ DCon: 0 A1: mf+ B: 4+ ABORh Retype: A POS Invalid Interpretation Code [facility] Comment on above: Performed By: #### 1 3027981, 43887148, 6161396, 0975471523, 82811963, 8272269, 8310713766, 0499190628, 8349395277, 5793834 ####[facility] (DEFAULT)[address] [place] [address] 02627 CBC w/ Auto Diffon Erythrocyte distribution width (RBC) [Ratio] 13.3 % Normal 11.5-15.0 [facility] Comment on above: Performed By: #### 1 3771971, 48382784, 2435873, 2805603719, 26318542, 4553217, 5147368859, 1196171533, 0356103162, 9318442 #### [facility] (DEFAULT) [address] [place] [address] 28034 Hematocrit (Bld) [Volume fraction] 43.5 % High 33.7-40.4 [facility] Comment on above: Performed By: #### 1 8248435, 44185917, 1286487, 3125861136, 94647987, 6633364, 0756791606, 0950764945, 0453171752, 0744510 #### [facility] (DEFAULT) [address] [place] [address] 63243 Hemoglobin (Bld) [Mass/Vol] 14.1 g/dL Normal 11.3-15.9 [facility] Comment on above: Performed By: #### 1 1306115, 61695045, 0757529, 3733931911, 69080851, 2706419, 0876586627, 3984033873, 6231776835, 2752946 #### [facility] (DEFAULT) [address] [place] [address] 68918 Instr WBC 5.7 x10 Invalid Interpretation Code [facility] Comment on above: Performed By: #### 1 8983419, 26020274, 4036790, 6981043681, 75486171, 2699232, 6245831536, 2043805481, 9484166160, 4744900 #### [facility] (DEFAULT) [address] [place] [address] 33008 Man Diff? Auto Normal [facility] Comment on above: Performed By: #### 1 8896562, 23057582, 2798738, 3028460873, 30786737, 8654706, 1730130246, 8497190691, 1552178804, 1242810 #### [facility] (DEFAULT) [address] [place] [address] 25885 MCH (RBC) [Entitic mass] 28 pg Normal 24-34 [facility] Comment on above: Performed By: #### 1 2261150, 56567802, 8364628, 9375462977, 85694391, 6938748, 1768809380, 1725548170, 2580960763, 1294921 #### [facility] (DEFAULT) [address] [place] [address] 39593 MCHC (RBC) [Mass/Vol] 32 g/dL Normal 26-37 [facility] Comment on above: Performed By: #### 1 7772475, 04454121, 2013891, 6887226081, 89730649, 5792590, 6734838375, 3964074735, 5449179490, 6480524 #### [facility] (DEFAULT) [address] [place] [address] 37933 MCV (RBC) [Entitic vol] 86 fL Normal 81-100 [facility] Comment on above: Performed By: #### 1 1191490, 13615270, 1929587, 6808780401, 88561953, 7892740, 4246150411, 2829171183, 6894042547, 2822534 #### [facility] (DEFAULT) [address] [place] [address] 52438 Platelet 324 x10 Normal 138-427 [facility] Comment on above: Performed By: #### 1 6332902, 64402251, 2295866, 7993118973, 69418658, 6281828, 2164668494, 5099060227, 9643916859, 5198357 #### [facility] (DEFAULT) [address] [place] [address] 88304 Platelet mean volume (Bld) [Entitic vol] 9.8 fL Normal 6.3-10.2 [facility] Comment on above: Performed By: #### 1 6584058, 55359891, 1234266, 1533841631, 27220373, 0557674, 9359469558, 4545028402, 8372511208, 2460243 #### [facility] (DEFAULT) [address] [place] [address] 85466 RBC 5.07 x10 Normal 3.70-5.30 [facility] Comment on above: Performed By: #### 1 8611177, 65110287, 5292489, 9732577541, 10912480, 0450794, 8667996525, 5422729991, 2071624522, 5565900 #### [facility] (DEFAULT) [address] [place] [address] 46423 WBC 5.7 x10 Normal 3.5-10.5 [facility] Comment on above: Performed By: #### 1 3094004, 60326685, 8787408, 6879757949, 49416506, 1940854, 7297586187, 1105256210, 0632240754, 8364785 #### [facility] (DEFAULT) [address] [place] [address] 12186 CMP Standardon 03-09-2022 eGFR Non AA >60 Invalid Interpretation Code [facility] Comment on above: Performed By: #### 1 2788218, 13146810, 0329031, 5125413631, 56721315, 3795646, 0851588971, 2137493936, 8330956655, 0876342 #### [facility] (DEFAULT) [address] [place] [address] 80782 eGFR AA >60 Invalid Interpretation Code [facility] Comment on above: Result Comment: [employer]ender [employer] susie Kidney disease could be indicated at eGFRs of less than 60 ml/min/1.73m2. Kidney Failure is indicated at less than 15 ml/min/1.73m2 Performed By: #### 1 9370690, 73004527, 3387435, 7886620952, 13539144, 9567629, 1579496153, 9999583317, 7293676094, 1122892 #### [facility] (DEFAULT) [address] [place] [address] 84652 Albumin [Mass/Vol] 4.5 g/dL Normal 3.5-5.0 [facility] Comment on above: Performed By: #### 1 2376355, 41323231, 5254469, 0777052390, 25671481, 6647963, 1884732703, 2281093642, 7706608769, 1886829 #### [facility] (DEFAULT) [address] [place] [address] 76113 Albumin/Globulin [Mass ratio] 1.2 {ratio} Low 1.4-2.6 [facility] Comment on above: Performed By: #### 1 5406426, 58752712, 0332830, 4630374310, 92646715, 1874756, 9137604379, 8976612885, 7660530924, 7904661 #### [facility] (DEFAULT) [address] [place] [address] 04054 Alk Phos 52 IU/L Normal 32-91 [facility] Comment on above: Performed By: #### 1 1151757, 88871312, 2456654, 8734218732, 40020818, 6209743, 0467758010, 8611597888, 2553145093, 6195467 #### [facility] (DEFAULT) [address] [place] [address] 68427 ALT [Catalytic activity/Vol] 37.0 U/L Normal 14.0-54.0 [facility] Comment on above: Performed By: #### 1 6032171, 34503018, 3181198, 9052540782, 89768720, 0966466, 4093307574, 6169413350, 7998357838, 2603452 #### [facility] (DEFAULT) [address] [place] [address] 73594 Anion gap [Moles/Vol] 18.0 mmol/L Normal 5.0-19.0 [facility] Comment on above: Performed By: #### 1 8305440, 43269187, 2286442, 6451890540, 89073700, 9731179, 1257247592, 6796082406, 9547925438, 6079765 #### [facility] (DEFAULT) [address] [place] [address] 94898 AST [Catalytic activity/Vol] 29 U/L Normal 15-41 [facility] Comment on above: Performed By: #### 1 6630242, 80090894, 2852442, 8612982233, 02636168, 1068791, 4272914068, 3649338112, 9501829072, 7122512 #### [facility] (DEFAULT) [address] [place] [address] 10011 Bili Total 0.7 mg/dL Normal 0.3-1.2 [facility] Comment on above: Performed By: #### 1 0200417, 42710473, 8047765, 1169123447, 10584183, 3913896, 6844618087, 0673602082, 7712374114, 7816172 #### [facility] (DEFAULT) [address] [place] [address] 04010 Calcium [Mass/Vol] 9.4 mg/dL Normal 8.9-10.3 [facility] Comment on above: Performed By: #### 1 5353718, 07434597, 5620275, 8477418196, 35302175, 7911128, 7770593868, 2275770337, 4433020851, 8742979 #### [facility] (DEFAULT) [address] [place] [address] 10394 Chloride [Moles/Vol] 100 mmol/L Low 101-111 [facility] Comment on above: Performed By: #### 1 4207668, 92598733, 4310857, 0018715347, 71093207, 5446474, 6665177419, 6103467033, 1432494823, 6204766 #### [facility] (DEFAULT) [address] [place] [address] 89119 CO2 [Moles/Vol] 24 mmol/L Normal 21-32 [facility] Comment on above: Performed By: #### 1 7092942, 76983356, 6042685, 0681646075, 97649343, 3348900, 0543116418, 1914209061, 3389999828, 1665487 #### [facility] (DEFAULT) [address] [place] [address] 74871 Creatinine [Mass/Vol] 0.75 mg/dL Normal 0.60-1.30 [facility] Comment on above: Performed By: #### 1 7878940, 98981522, 9540407, 1974758654, 80795569, 2038558, 9486940590, 7749538072, 3889640201, 0929069 #### [facility] (DEFAULT) [address] [place] [address] 63489 Globulin (S) [Mass/Vol] 3.9 g/dL Normal 1.5-4.3 [facility] Comment on above: Performed By: #### 1 0042049, 34889968, 6792820, 2145249982, 99810105, 8464519, 1906957704, 7683124799, 8076054980, 4497734 #### [facility] (DEFAULT) [address] [place] [address] 35011 Glucose [Mass/Vol] 98.0 mg/dL Normal 74.0-118.0 [facility] Comment on above: Performed By: #### 1 7091916, 67240040, 6799624, 7211109078, 35223222, 0065083, 7351030839, 3531469002, 8140062510, 3117926 #### [facility] (DEFAULT) [address] [place] [address] 30749 Osmolality 274 mOsm/L Invalid Interpretation Code [facility] Comment on above: Performed By: #### 1 6466729, 38718151, 1032936, 0141543791, 65428956, 6369439, 0865833830, 1813177328, 3013384766, 2565666 #### [facility] (DEFAULT) [address] [place] [address] 50544 Potassium [Moles/Vol] 3.5 mmol/L Low 3.6-5.1 [facility] Comment on above: Performed By: #### 1 8523639, 05631860, 2689990, 2731528583, 07779882, 2773378, 1628843128, 8740822659, 6534558776, 5388086 #### [facility] (DEFAULT) [address] [place] [address] 32047 Protein [Mass/Vol] 8.4 g/dL High 6.5-8.1 [facility] Comment on above: Performed By: #### 1 8728983, 07462850, 2047183, 6666478291, 43854167, 3011005, 7236091093, 8381006285, 2223485015, 7536597 #### [facility] (DEFAULT) [address] [place] [address] 76567 Sodium [Moles/Vol] 138.0 mmol/L Normal 136.0-144.0 [facility] Comment on above: Performed By: #### 1 0200577, 38439272, 8421369, 8569227174, 07784767, 1763225, 4978424884, 4262778716, 3076021678, 7404258 #### [facility] (DEFAULT) [address] [place] [address] 12403 Urea nitrogen [Mass/Vol] 7 mg/dL Low 8-26 [facility] Comment on above: Performed By: #### 1 9863941, 02378167, 7635593, 9760709558, 92877298, 0215658, 8856809066, 1796510912, 7985472387, 0883427 #### [facility] (DEFAULT) [address] [place] [address] Urea nitrogen/Creatinine [Mass ratio] 9.0 mg/mg Normal 4.6-16.2 [facility] Comment on above: Performed By: #### 1 3661411, 77313875, 6034705, 0090780596, 80596065, 2527044, 2217081289, 4310343234, 0247767267, 4540146 #### [facility] (DEFAULT) [address] [place] [address] 81324 ED Clinical Summaryon 2021 ED Clinical Summary [facility] - Emergency Department [address] [place] [address] 26955 ED Clinical Summary PERSON INFORMATION Name: DIANE JOYCE Age: 26 Years Sex: FEMALE : 1995 MRN: Acct#: Visit Reason: Vaginal bleeding - < 20 wks ; BLEEDING, Arrival: 03/09/2022 15:56:59 Discharge: 03/09/2022 18:28:00 LOS: 000 02:32 Check In: 03/09/2022 15:56:59 Checkout:03/09/2022 18:28:00 Address: [address] [place] [address] PCP: Provider, None PROVIDER INFORMATION Provider Role [...] or bladder. 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 Min, contacted his office and they [...] intact, SARINA: -Sclera conjunctiva: Unremarkable. NECK: -Supple (hnke-rx-asmiy): non-tender. CARD: -Rate and rhythm: Regular -Edema: [...] the patient recommended close follow-up with her clam dredge boat captain and outpatient beta hCG. In the meantime no strenuous ac (more content not included)... Normal [facility] ED Note - Physicianon 2021 ED Note [...] or bladder. 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 Min, contacted his office and they [...] intact, SARINA: -Sclera conjunctiva: Unremarkable. NECK: -Supple (azyn-fl-shiny): non-tender. CARD: -Rate and rhythm: Regular -Edema: [...] the patient recommended close follow-up with her clam dredge boat captain and outpatient beta hCG. In the meantime no strenuous activity, sexual activity if having any worsening issues I recommended he return to the emergency department or going directly to clam dredge boat captain. Patient indicated she understood was in agreement. [...] (more content not included)... Normal [facility] ED Note-Nursingon 03-09-2022 Beta HCG ( test) [...] , 1 live . Normal [facility] ED Patient Summaryon 022 ED Patient Summary [facility] - Emergency Department [address] [place], [place] [id number] PATIENT DISCHARGE INSTRUCTIONS Patient Information Name: DIANE JOYCE Age: 26 Years Date of : 1995 [facility]: [id number] Reason For Visit: Vaginal bleeding - < 20 wks ; BLEEDING, Arrival Time: 03/09/2022 15:56:59 Primary Care Physician: Provider, None Attending Physician: Adrian Rosales MD Comment: Visit Diagnosis: Diagnoses This Visit Elevated blood pressure reading (R03.0) First trimester (Z34.91) Threatened miscarriage in early (O20.0) Vaginal bleeding (N93.9) Vaginal bleeding - < 20 wks ([id number]) Prescription Information: If you have been given a prescription for narcotics, seek immediate medical attention if you have any difficulty breathing or any sudden status changes such as confusion and sleepiness. If you or anyone you know is experiencing suicidal thoughts, mental health, alcohol and/or drug addiction problems; contact the [facility] 21/05 Crisis Hotline -Text 4BQGX og 036791. If you received any narcotics, sedation, or [...] documents With: Address: When: Follow-up with your clam dredge boat captain for reevaluation next few days. Within 1 to 2 days Comments: Follow-up with clam dredge boat captain for reevaluation next few days for reevaluation and outpatient quantitative hCG. Return immediately for any worsening issues such as increasing abdominal pains, increasing vaginal bleeding, fevers, or any other problems. With: Address: When: Stephanie Padilla Within 3 to 5 days Comments: Medical Dermatologist Medication Information: The exam and treatment you received today in the [facility] Emergency Department were for an urgent problem and are not intended as complete care. It is important for you to follow up with a doctor, nurse practitioner, or physician?s retail event and sales assistant for ongoing care. If your [...] can reach you if necessary. [facility] Emergency Department has provided you with a complete list of medications post discharge. Please inform your trigonometry tutor/provider of your visit and for further instruction [...] (more content not included)... Normal [facility] Extra Greenon 03-09-2022 Tube Collected Yes Invalid Interpretation Code [facility] Comment on above: Performed By: #### 1 [id number], [id number], [id number], [id number], [id number], [id number], [id number], [id number], [id number], [id number] #### [facility] (DEFAULT) [address] [place] [address] 15583 PT/PTTon 03-09-2022 INR Coag (PPP) [Relative time] 0.95 {INR} Normal 0.91-1.11 [facility] Comment on above: Performed By: #### 1 [id number], [id number], [id number], [id number], [id number], [id number], [id number], [id number], [id number], [id number] #### [facility] (DEFAULT) [address] [place] [address] 80751 PT 10.3 second(s) Normal 9.7-11.8 [facility] Comment on above: Performed By: #### 1 [id number], [id number], [id number], [id number], [id number], 3150691, [id number], [id number], [id number], [id number] #### [facility] (DEFAULT) [address] [place] [address] 16314 PTT 34 second(s) Normal 25-35 [facility] Comment on above: Performed By: #### 1 [id number], [id number], 5180571, [id number], 39355715, [id number], [id number], [id number], [id number], [id number] #### [facility] (DEFAULT) [address] [place] [address] 21277 RhIG.on 03-09-2022 RhIG. No. Vials RhI RhIG Candidate?: No Date to Give: [id number] RhIG Status: RhIG Ready Normal [facility] Comment on above: Performed By: #### 1 [id number], [id number], [id number], [id number], 30604511, 7641154, [id number], [id number], [id number], [id number] ####[facility] (DEFAULT)[address] [place] [address] UA [id number] 03-09-2022 UA Amorph. 1+ [facility] Comment on above: Order Comment: Urina lysis Microscopic order added on by Discern Expert Rules system. Performed By: #### 5 [id number], [id number], [id number] ####[facility] (DEFAULT)[address] [place] [address] UA Bacteria 2+ [facility] Comment on above: Order Comment: Urina lysis Microscopic order added on by Discern Expert Rules system. Performed By: #### 5 [id number], [id number], [id number] ####[facility] (DEFAULT)[address] [place] [address] UA Mucous 3+ [facility] Comment on above: Order Comment: Urina lysis Microscopic order added on by Discern Expert Rules system. Performed By: #### 5 [id number], [id number], [id number] ####[facility] (DEFAULT)[address] [place] [address] UA RBC >100 [facility] Comment on above: Order Comment: Urina lysis Microscopic order added on by Discern Expert Rules system. Performed By: #### 5 [id number], 9771572, [id number] ####[facility] (DEFAULT)[address] [place] [address] UA Squam Epi Many [facility] Comment on above: Order Comment: Urina lysis Microscopic order added on by Discern Expert Rules system. Result Comment: DMITRY WERNER RN IN ER. RUN UNINALYSIS AND CULTURE ON THIS SPECIMEN. NO RECOLLECT. Performed By: #### 5 [id number], [id number], [id number] ####[facility] (DEFAULT)[address] [place] [address] UA WBC 3-5 [facility] Comment on above: Order Comment: Urina lysis Microscopic order added on by Discern Expert Rules system. Performed By: #### 5 [id number], [id number], [id number] ####[facility] (DEFAULT)[address] [place] [address] UA w Culture if Ind Standard on 03-09-2022 Breakpoint UA Normal [facility] Comment on above: Performed By: #### 1 [id number], 82322117, 6648170, [id number], 93354497, 7689841, 4119529896, 5203518276, [id number], 2688301 #### [facility] (DEFAULT) [address] [place] [address] Color (U) Yellow Normal [facility] Comment on above: Performed By: #### 1 [id number], 98885152, 5435729, [id number], 72587198, 0170008, 1644251886, 5210966198, 8637811495, 9708854 #### [facility] (DEFAULT) [address] [place] [address] Culture? Indicated Invalid Interpretation Code [facility] Comment on above: Result Comment: Resu lt created by rule GL_MAGR_ADD_UA_CULT Result created by rule GL_MAGR_ADD_UA_CULT Result created by rule GL_MAGR_ADD_UA_CULT1 Result created by rule GL_MAGR_ADD_UA_CULT Performed By: #### 1 [id number], 50679717, 0878699, 6772400295, 33621915, 9043732, 4581671360, 7360335517, 6631768662, 3255292 #### [facility] (DEFAULT) [address] [place] [address] Glucose (U) [Mass/Vol] Negative Normal [facility] Comment on above: Performed By: #### 1 [id number], 55877895, 9707530, 1326750091, 75815493, 9357408, 9624478479, 2888877377, 6697879240, 8916641 #### [facility] (DEFAULT) [address] [place] [address] Ketones Ql (U) 40 Normal [facility] Comment on above: Performed By: #### 1 2233135, 91812580, 6989793, 0429278223, 64620659, 1712182, 7777630275, 2410535880, 3118848695, 4367520 #### [facility] (DEFAULT) [address] [place] [address] Micro? Indicated Invalid Interpretation Code [facility] Comment on above: Result Comment: Resu lt created by rule GL_MAGR_ADD_UA_MICRO Performed By: #### 1 [id number], 39733067, 1610551, 9105750597, 79883077, 4591686, 1152860669, 9321181716, 5644118420, 2885683 #### [facility] (DEFAULT) [address] [place] [address] UA Bilirubin Negative Normal [facility] Comment on above: Performed By: #### 1 8975774, 89856290, 0206863, 4926108871, 52411040, 6004301, 1529775356, 3408525184, 3628626663, 0917598 #### [facility] (DEFAULT) [address] [place] [address] UA Blood LARGE Abnormal NEGATIVE [facility] Comment on above: Performed By: #### 1 6249793, 87028486, 7049246, 2230070292, 42737692, 0883228, 5223395191, 3472347635, 1798987640, 5957565 #### [facility] (DEFAULT) [address] [place] [address] UA Clarity SL CLOUDY Abnormal CLEAR [facility] Comment on above: Performed By: #### 1 5248887, 93287890, 6448078, 2091676001, 49419687, 0700265, 0225801265, 8162799100, 0269895365, 7269338 #### [facility] (DEFAULT) [address] [place] [address] UA Leuk Est TRACE Abnormal NEGATIVE [facility] Comment on above: Performed By: #### 1 7582829, 38331960, 4786629, 9969988816, 55187712, 0308010, 5709554037, 5191683569, 3410095716, 5919520 #### [facility] (DEFAULT) [address] [place] [address] UA Nitrite Negative Normal NEGATIVE [facility] Comment on above: Performed By: #### 1 8636928, 19306131, 0430152, 5887481904, 42879965, 6392786, 6715779192, 5041492564, 4870788060, 7846832 #### [facility] (DEFAULT) [address] [place] [address] UA pH 6.5 Normal 5-8 [facility] Comment on above: Performed By: #### 1 0145923, 19943085, 4373692, 8822126963, 96429419, 3977502, 2017714427, 1332232229, 2808827859, 5290129 #### [facility] (DEFAULT) [address] [place] [address]1 UA Protein Negative Normal NEGATIVE [facility] Comment on above: Performed By: #### 1 6253881, 25436652, 8548429, 0220403609, 98479718, 7654575, 5499037536, 0841038213, 4066418337, 7379081 #### [facility] (DEFAULT) [address] [place] [address] UA Spec Grav 1.015 Normal 1.001-1.035 [facility] Comment on above: Performed By: #### 1 [id number], 21216906, 6496502, 8393846791, 58766170, 4077307, 7748903316, 0607459197, 7060897001, 8641051 #### [facility] (DEFAULT) [address] [place] [address] UA Urobilinogen 0.2 mg/dL Normal 0.2-1.0 [facility] Comment on above: Performed By: #### 1 3819918, 20219177, 8618390, 8202980798, 98334261, 3658238, 3224435627, 4188957301, 6251700584, 5459942 #### [facility] (DEFAULT) [address] [place] [address] Urine Source Clean Catch [facility] Comment on above: Performed By: #### 1 3123462, 27811539, 5785225, 8491860532, 90318981, 1560954, 9179421551, 2701260992, 6022701203, 6241267 #### [facility] (DEFAULT) [address] [place] [address] US 1st Trimesteron 03-09-2022 US 1st Trimester [...] 6:10 pm Technologist: PM Normal [facility] hCG Quantitativeon hCG Quantitative 7.1 mIU/mL High 0.0-0.6 [facility] Comment on above: Result Comment: Post -Menopausal Reference Range is: 0.1-11.6 mIU/mL Performed By: #### 1 8887028, 84391322, 5649628, 7714975635, 38092805, 8100923, 0941009778, 3965555434, 9507262332, 5410187 #### [facility] (DEFAULT) [address] [place] [address] Vital Signs Date Time Vital Sign Value Performing Clinician Facility 12-13-2023 15:00-0500 Body mass index (BMI) [Ratio] 46.69 kg/m2 [facility] Nurse [facility] 12-13-2023 15:00-0500 Body weight 123.38 kg [facility] 12-13-2023 15:00-0500 Diastolic blood pressure 78 mm[Hg] [facility] 12-13-2023 15:00-0500 Systolic blood pressure 128 mm[Hg] [facility] 05-15-2023 18:30-0400 Body height 161.29 cm Linsey Witt Other [facility] 05-15-2023 18:30-0400 Body mass index (BMI) [Ratio] 43.41 kg/m2 Linsey Eduar Other [facility] 05-15-2023 18:30-0400 Body temperature 99.2 [degF] Linsey Witt Other [facility] Other 05-15-2023 18:30-0400 Body weight 112.95 kg Linsey Eduar Other [facility] Other 05-15-2023 18:30-0400 Respiratory rate 18 /min Linsey Witt Other [facility] Other 05-15-2023 18:30-0400 SaO2% (BldA) [Mass fraction] 99 % Linsey Witt Other [facility] Other 05-09-2023 11:00-0400 Body height 161.29 cm Gissel Santana Other [facility] Other 05-09-2023 11:00-0400 Body mass index (BMI) [Ratio] 43.59 kg/m2 Gissel Santana Other [facility] 05-09-2023 11:00-0400 Body weight 113.4 kg Gissel Santana Other [facility] Other 05-09-2023 11:00-0400 Diastolic blood pressure 83 mm[Hg] Gissel Santana Other [facility] 05-09-2023 11:00-0400 Systolic blood pressure 119 mm[Hg] Gissel Santana Other [facility] 04-12-2023 09:00-0400 Body height 161.29 cm Gissel Santana Other [facility] 04-12-2023 09:00-0400 Body mass index (BMI) [Ratio] 43.59 kg/m2 Gissel Santana Other [facility] 04-12-2023 09:00-0400 Body weight 113.4 kg Gissel Santana Other [facility] Other 04-12-2023 09:00-0400 Diastolic blood pressure 88 mm[Hg] Gissel Santana Other [facility] Other 04-12-2023 09:00-0400 Systolic blood pressure 129 mm[Hg] Gissel Santana Other [facility] Other 10-11-2022 02:06-0500 Body weight 111.[address] ESTELAL MIN . [facility] Comment on above: Performed By: #### AFPMAT #### [facility] [address] [place] [address] Dr. Alexsander Dickinson Encounters Encounter Date Encounter [...] 11-06-2023 End: 11-06-2023 ambulatory Gissel Santana Other [facility] Other Start: 11-06-2023 Encounter by donald Santana [facility] Start: 05-22-2023 End: 05-22-2023 ambulatory Olive Howard Other [facility] Other Start: 05-22-2023 Telephone encounter Olive Howard [facility] Start: 05-15-2023 End: 05-15-2023 ambulatory Linsey Witt Facility:[facility] Start: 05-15-2023 End: 05-15-2023 Departed Referred TERESA Witt Work Phone: [facility] [place] Work Phone: Start: 05-15-2023 End: 05-15-2023 ambulatory TERESA Witt Work Phone: [facility] Work Phone: Start: 05-15-2023 Office outpatient vi sit 25 minutes Linsey Witt [facility] Start: 05-09-2023 End: 05-09-2023 ambulatory Gissel Santana Other [facility] Other Start: 05-09-2023 Office outpatient vi sit [address] [facility] Start: 04-12-2023 End: 04-12-2023 ambulatory Gissel Santana Other [facility] Other Start: 04-12-2023 Encounter for genera l adult medical examination without abnormal findings Gissel Santana [facility] Start: 04-12-2023 Periodic preventive med est patient 18-[address] [facility] Start: 02-15-[address] ESTELLA MIN [...] DR ESTELLA MIN . Throat culture Linsey Wtit Other Plan of Treatment Date Care Activity Detail Author Start: 01-14-2024 End: 01-14-2024 Patient encounter procedure 01/14/2024 8:30 AM EDT Routine [facility] [address] [place] [address] Estella Min, [address] [place] [address] [facility] Start: 12-13-2023 End: 12-13-2024 ABO/Rh ABO/Rh Lab Routine Missed menses Expected: 12/13/2023 (Approximate), Expires: 12/13/2024 [facility] Comment on above: Expected: 12/13/2023 [...] Missed menses Expected: 12/13/2023 (Approximate), Expires: 12/13/2024 [facility] Comment on above: Expected: 12/13/2023 (Approximate), Expires: 12/13/2024 Start: 12-13-2023 End: 12-13-2024 US Pelvis transvaginal US OB transvaginal Imaging Routine Missed menses Expected: 12/13/2023 (Approximate), Expires: 12/13/2024 [facility] Comment on above: Expected: 12/13/2023 (Approximate), Expires: 12/13/2024 Start: 05-15-2023 Throat culture Throat Culture [facility] Bacteria identified in Urine by Culture Urine culture Microbiology Routine Missed menses Ordered: 12/13/2023 [facility] Comment on above: Ordered: 12/13/2023 CBC W Auto Different ial panel - Blood CBC and differential Lab Routine Missed menses Ordered: 12/13/2023 [facility] Comment on above: Ordered: 12/13/2023 Hemoglobin A1c/Hemoglobin.total in Blood Hemoglobin A1c Lab Routine Missed menses Ordered: 12/13/2023 [facility] Comment on above: Ordered: 12/13/2023 Hepatitis B virus surface Ag [Presence] in Serum or Plasma by Immunoassay Hepatitis B surface antigen Lab Routine Missed menses Ordered: 12/13/2023 [facility] Comment on above: Ordered: 12/13/2023 Hepatitis C virus Ab [Presence] in Serum or Plasma by Immunoassay Hepatitis C antibody Lab Routine Missed menses Ordered: 12/13/2023 [facility] Comment on above: Ordered: 12/13/2023 HIV-1/HIV-2 antigen/antibody combination immunoassay HIV-1 and HIV-2 antibodies Lab Routine Missed menses Ordered: 12/13/2023 [facility] Comment on above: Ordered: 12/13/2023 Reagin Ab [Presence] in Serum by RPR RPR Lab Routine Missed menses Ordered: 12/13/2023 [facility] Comment on above: Ordered: 12/13/2023 Rubella antibody, IgG Rubella an tibody, IgG Lab Routine Missed menses Ordered: 12/13/2023 [facility] Comment on above: Ordered: 12/13/2023 Payers Date Payer Category Payer Unknown BCBS BCBS [id number] 2020-Present [phone] [address] [place] [address] [id number] 1994 Unknown [id number] 2.16.840.1.207210.3.579.2.593 1994 Unknown [id number] 2.16.840.1.154525.3.579.2.593 1994 Unknown [id number] 2.16.840.1.539537.3.579.2.593 1994 Unknown [id number] 2.16.840.1.613557.3.579.2.593 1994 Unknown [id number] 2.16.840.1.628169.3.579.2.593 1994 Unknown [id number] 2.16.840.1.945296.3.579.2.593 1994 Unknown [id number] 2.16.840.1.410605.3.579.2.593 1994 Unknown [id number] 2.16.840.1.758085.3.579.2.593 1994 Unknown [id number] 2.16.840.1.622483.3.579.2.593 1994 Unknown [id number] 2.16.840.1.006628.3.579.2.593 1994 Unknown [id number] 2.16.840.1.655599.3.579.2.593 1994 Unknown [id number] 2.16.840.1.627781.3.579.2.593 1994 Unknown [id number] 2.16.840.1.580492.3.579.2.593 1994 Unknown [id number] 2.16.840.1.310400.3.579.2.593 1994 Unknown [id number] 2.16.840.1.509211.3.579.2.593 1994 Unknown [id number] 2.16.840.1.965381.3.579.2.593 1994 Unknown [id number] 2.16.840.1.786798.3.579.2.593 1994 Unknown [id number] 2.16.840.1.924557.3.579.2.593 1994 Unknown [id number] 2.16.840.1.127442.3.579.2.593 1994 Unknown [id number] 2.16.840.1.336135.3.579.2.593 1994 Unknown [id number] 2.16.840.1.482964.3.579.2.593 1994 Unknown [id number] 2.16.840.1.033539.3.579.2.593 1994 Unknown [id number] 2.16.840.1.994330.3.579.2.593 1994 Unknown [id number] 2.16.840.1.433540.3.579.2.593 1994 Unknown [id number] 2.16.840.1.708841.3.579.2.1259 1994 Unknown [id number] 2.16.840.1.306683.3.579.2.1259 1994 Unknown [id number] 2.16.840.1.765961.3.579.2.1259 1994 Unknown [id number] 2.16.840.1.605482.3.579.2.1259 1994 Unknown [id number] 2.16.840.1.375764.3.579.2.1259 1994 Unknown [id number] 2.16.840.1.196824.3.579.2.1259 1994 Unknown [id number] 2.16.840.1.649703.3.579.2.1259 1994 Unknown [id number] 2.16.840.1.643211.3.579.2.1259 1959 Self-pay 1959 Unknown [id number] Unknown [id number] 2.16.840.1.495687.3.579.2.593 Unknown [id number] 2.16.840.1.248911.3.579.2.531 Social History Date Type Detail Facility Unknown if ever smoked [facility] [place] Other Start: 03-12-2023 Sex Assigned At N [facility] Other Start: 1995 Sex Assigned At Female F [facility] Start: 03-12-2023 Tobacco smoking status [...] Meenakshi Rosenthal MA documented in this encounter [facility] 05-15-2023 Evaluation note Encounter Date [...] understanding and is agreeable to treatment plan. [facility] Other 07-12-2023 Evaluation note* Encounter Date Diagnosis Assessment Notes Treatment Notes Treatment Clinical Notes Apr, Anxiety disorder, unspecified (ICD-10 - F41.9) Pt states that she, and her , agree that she is doing better on the medication. Continues to have stress, but is dealing more appropriately. Would like to continue this med and this dose. f/u6 months, sooner if needed. [facility] Other 06-15-2023 Evaluation note* Encounter Date Diagnosis [...] help for overwhelm. followup in 1 month [facility] Other 05-12-2022 NoteEducation Materials Cardiovascular Hypertension, Adult [...] beans, e (more content not included)...[facility] noteNo assessment information availableProtestant [facility] Work Phone: Evaluation noteNo InformationNortPenn [facility] [place] Other Evaluation note* Diagnosis Missed menses documented in this encounter [facility] N[facility] - Reported* Type Description Date Surgical History C-sect 2019 Surgical History C-sect 2022 [facility] Other History general Narrative - Reported* Type Description Date Medical History Anxiety disorder, unspecified Surgical History C-sect 2019 Surgical History C-sect 2022 Hospitalization History SEE SURGICAL [facility] Other History general Narrative - Reported* Type Description Date Medical History Anxiety disorder, unspecified Medical History Gestational diabetes Surgical History C-sect 2019 Surgical History C-sect 2022 Hospitalization History SEE SURGICAL [facility] Other Summary Purpose Family History No Family History Records FoundNo Family History Records FoundNo Family History Records FoundNo Family History Records Found Advance Directives No Advanced Directives Records FoundNo Advanced Directives Records FoundNo Advanced Directives Records FoundNo Advanced Directives Records Found Additional Source Comments INFORMATION SOURCE (unrecogn ized section and content) DATE CREATED AUTHOR 03/18/2022 [facility] l DATE CREATED AUTHOR AUTHOR'S ORGANIZ ATION 02/15/2023 [facility] DATE CREATED AUTHOR AUTHOR'S ORGANIZ ATION 05/24/2023 [facility] DATE CREATED AUTHOR AUTHOR'S ORGANIZ ATION 06/07/2024 [facility] EPIC REASON FOR VISIT (unrecogniz ed section and content) Reason Comments Amenorrhea Care Teams (unrecognized sec tion and content) Team Status: Inactive Member Role Status Dates Linsey Witt APRN Attending Provider Active Sleeve Tailor Relationship Specialty Start Date End Date Gissel Santana MD [address] [facility] [place] [address] PCP - General Family Medicine [...] BE BASED ON THE PRIMARY CLINICAL RECORDS. [facility]. provides no warranty or guarantee of the accuracy or completeness of information in this document.
[2024-06-18 11:33] VITALS: BP 133/70; PULSE 76
== END 2024-06-18 12:10 | disposition home or self-care (01) ==
LOC: US 06:56 → FBC 11:01
PROVIDERS: Visit Provider Obstetrics & Gynecology
DX: O24.419 Gestational diabetes mellitus in pregnancy, unspecified control (principal); Z3A.35 35 weeks gestation of pregnancy
CPT/HCPCS: 76816; 76818

== ENCOUNTER 2024-06-19 18:47 | Outpatient (REF) | payer BC, SELFPAY ==
--- OUTSIDE RECORDS SUMMARY | 2024-06-19 18:53 | XMS_ITS | CCD ---
Author Organization [facility] Care Team Providers Care Demographer Name Role Phone MECHELLE ., DR SORIA [...] DR SORIA Consulting Unavailable SANTANA, DR GISSEL [facility] Unavailable MECHELLE ., DR SORIA [...] Unavailable MECHELLE ., DR SORIA Admitting Unavailable De Beque, Sebastian Consulting Unavailable SANTANA, DR GISSEL Teresa [...] Interpretation and review of laboratory results Abnormal [facility] Health[facility] re Preg Test, Ur Positive [facility] Urinalysis macro (dipstick) panel (U)on 12-13-2023 Bilirubin, UA Negative Negative - 4(70) +++ mg/dL [facility] Blood, UA Negative Negative - 50 Sal/mcL [facility] Clarity, UA Clear [facility] Healthnd re Color, UA Yellow [facility] Glucose, UA Negative Negative - 1999(110) ++++ mg/dL [facility] Interpretation and review of laboratory results Abnormal [facility] re Ketones, UA Positive Negative - 160(16) ++++ mg/dL [facility] Leukocytes, UA Negative Negative - 500+++ Lizzy/mcL [facility] Nitrite, UA Negative Negative - Positive [facility] pH, UA 7.0 5 - 9 [facility]car e Protein, UA Positive Negative - 1999(20) ++++ mg/dL [facility] Spec Grav, UA 1.030 1 - 1.03 [facility] Urobilinogen, UA 0.2 0.2 - 12 mg/dL [facility] Quick Strepon 05-15-2023 S. pyogenes Org specific cx Ql (Throat) Negative [employer] Other Quick Strep [employer] Other Throat Cultureon 05-15-2023 Throat culture Heavy Normal Respiratory John 2 Days PERFORMED BY: [address] [address] [address] [place], [place] [address] PATHOLOGIST OPTICAL WORKER ARACELI HAYWOOD M.D. Normal [facility] Comment on above: Performed By: #### C UT #### [facility] [address] GROUP B STREP CULTUREon 01-27 [...] S F Tetracycline <=0.25 S F Normal [facility] Comment on above: Performed By: #### A FPMAT #### [facility] [address] [place] [address] Dr. Alexsander Dickinson CBC AUTO DIFFon 02-02-2023 BASO # 0.0 103/ul Normal 0.0-0.1 [facility] Comment on above: Performed By: #### C BC #### [facility] [address] [place] [address] Dr. Alexsander Dickinson Basophils/100 WBC (Bld) 0.2 % Normal 0.2-2.0 [facility] Comment on above: Performed By: #### C BC #### [facility] [address] [place] [address] Dr. Alexsander Dickinson EO # 0.0 103/ul Normal 0.0-0.7 [facility] Comment on above: Performed By: #### C BC #### [facility] [address] [place] [address] Dr. Alexsander Dickinson Eosinophils/100 WBC (Bld) 0.0 % Critically low 0.9-7.0 [facility] Comment on above: Performed By: #### C BC #### [facility] [address] [place] [address] Dr. Alexsander Dickinson Erythrocyte distribution width (RBC) [Ratio] 12.5 % Normal 11.0-15.0 [facility] Comment on above: Performed By: #### C BC #### [facility] [address] [address] [address] Alexsander Dickinson Hematocrit (Bld) [Volume fraction] 32.9 % Critically low 36.0-48.0 [facility] Comment on above: Performed By: #### C BC #### [facility] [address] [address] [address] Alexsander Dickinson Hemoglobin (Bld) [Mass/Vol] 10.7 g/dL Critically low 12.0-16.0 [facility] Comment on above: Performed By: #### C BC #### [facility] [address] [address] [address] Alexsander Dickinson IG # 0.12 10e3/ul Critically high 0.00-0.03 [facility] Comment on above: Performed By: #### C BC #### [facility] [address] [address] [address] Alexsander Dickinson IG % 0.7 % Critically high 0.0-0.5 [facility] Comment on above: Performed By: #### C BC #### [facility] [address] [address] [address] Alexsander Dickinson LYMPH # 1.1 103/ul Critically low 1.2-3.8 [facility] Comment on above: Performed By: #### C BC #### [facility] [address] [address] [address] Alexsander Dickinson Lymphocytes/100 WBC (Bld) 6.4 % Critically low 20.5-60.0 [facility] Comment on above: Performed By: #### C BC #### [facility] [address] [address] [address] Alexsander Dickinson MANUAL DIFF REQ NO Normal [facility] Comment on above: Performed By: #### C BC #### [facility] [address] [address] [address] Alexsander Dickinson MCH (RBC) [Entitic mass] 26.1 pg Critically low 26.7-34.0 [facility] Comment on above: Performed By: #### C BC #### [facility] [address] [address] [address] Alexsander Dickinson MCHC (RBC) [Mass/Vol] 32.5 g/dL Normal 29.9-35.2 [facility] Comment on above: Performed By: #### C BC #### [facility] [address] [address] [address] Alexsander Dickinson MCV (RBC) [Entitic vol] 80.2 fL Critically low 81.0-99.0 [facility] Comment on above: Performed By: #### C BC #### [facility] [address] [place] [address] Dr. Alexsander Dickinson MONO # 0.4 103/ul Normal 0.3-0.8 [facility] Comment on above: Performed By: #### C BC #### [facility] [address] [place] [address] Dr. Alexsander Dickinson Monocytes/100 WBC (Bld) 2.1 % Normal 1.7-12.0 [facility] Comment on above: Performed By: #### C BC #### [facility] [address] [place] [address] Dr. Alexsander Dickinson NEUT # 15.5 103/ul Critically high 1.4-6.5 [facility] Comment on above: Performed By: #### C BC #### [facility] [address] [place] [address] Dr. Alexsander Dickinson Neutrophils/100 WBC (Bld) 90.6 % Critically high 43.0-75.0 [facility] Comment on above: Performed By: #### C BC #### [facility] [address] [place] [address] Dr. Alexsander Dickinson Platelet mean volume (Bld) [Entitic vol] 10.7 fL Normal 9.5-13.5 [facility] Comment on above: Performed By: #### C BC #### [facility] [address] [place] [address] Dr. Alexsander Dickinson PLT 310 103/ul Normal 150-450 [facility] Comment on above: Performed By: #### C BC #### [facility] [address] [place] [address] Dr. Alexsander Dickinson RBC 4.10 106/ul Critically low 4.20-5.40 [facility] Comment on above: Performed By: #### C BC #### [facility] [address] [place] [address] Dr. Alexsander Dickinson WBC 17.1 103/ul Critically high 4.0-11.0 [facility] Comment on above: Performed By: #### C BC #### [facility] [address] [place] [address] Dr. Alexsander Dickinson CBC AUTO DIFFon 02-01-2023 BASO # 0.0 103/ul Normal 0.0-0.1 [facility] Comment on above: Performed By: #### A 1C #### [facility] [address] [place] [address] Dr. Alexsander Dickinson Basophils/100 WBC (Bld) 0.2 % Normal 0.2-2.0 [facility] Comment on above: Performed By: #### A 1C #### [facility] [address] [place] [address] Dr. Alexsander Dickinson EO # 0.0 103/ul Normal 0.0-0.7 [facility] Comment on above: Performed By: #### A 1C #### [facility] [address] [place] [address] Dr. Alexsander Dickinson Eosinophils/100 WBC (Bld) 0.4 % Critically low 0.9-7.0 [facility] Comment on above: Performed By: #### A 1C #### [facility] [address] [place] [address] Dr. Alexsander Dickinson Erythrocyte distribution width (RBC) [Ratio] 12.9 % Normal 11.0-15.0 [facility] Comment on above: Performed By: #### A 1C #### [facility] [address] [place] [address] Dr. Alexsander Dickinson Hematocrit (Bld) [Volume fraction] 34.2 % Critically low 36.0-48.0 [facility] Comment on above: Performed By: #### A 1C #### [facility] [address] [place] [address] Dr. Alexsander Dickinson Hemoglobin (Bld) [Mass/Vol] 11.4 g/dL Critically low 12.0-16.0 [facility] Comment on above: Performed By: #### A 1C #### [facility] [address] [place] [address] Dr. Alexsander Dickinson IG # 0.04 10e3/ul Critically high 0.00-0.03 [facility] Comment on above: Performed By: #### A 1C #### [facility] [address] [place] [address] Dr. Alexsander Dickinson IG % 0.5 % Normal 0.0-0.5 [facility] Comment on above: Performed By: #### A 1C #### [facility] [address] [place] [address] Dr. Alexsander Dickinson LYMPH # 2.1 103/ul Normal 1.2-3.8 [facility] Comment on above: Performed By: #### A 1C #### [facility] [address] [place] [address] Dr. Alexsander Dickinson Lymphocytes/100 WBC (Bld) 23.9 % Normal 20.5-60.0 [facility] Comment on above: Performed By: #### A 1C #### [facility] [address] [place] [address] Dr. Alexsander Dickinson MANUAL DIFF REQ NO Normal [facility] Comment on above: Performed By: #### A 1C #### [facility] [address] [place] [address] Dr. Alexsander Dickinson MCH (RBC) [Entitic mass] 27.0 pg Normal 26.7-34.0 [facility] Comment on above: Performed By: #### A 1C #### [facility] [address] [place] [address] Dr. Alexsander Dickinson MCHC (RBC) [Mass/Vol] 33.3 g/dL Normal 29.9-35.2 [facility] Comment on above: Performed By: #### A 1C #### [facility] [address] [address] [address] Alexsander Dickinson MCV (RBC) [Entitic vol] 81.0 fL Normal 81.0-99.0 [facility] Comment on above: Performed By: #### A 1C #### [facility] [address] [address] [address] Alexsander Dickinson MONO # 0.5 103/ul Normal 0.3-0.8 [facility] Comment on above: Performed By: #### A 1C #### [facility] [address] [place] [address] Dr. Alexsander Dickinson Monocytes/100 WBC (Bld) 6.0 % Normal 1.7-12.0 [facility] Comment on above: Performed By: #### A 1C #### [facility] [address] [place] [address] Dr. Alexsander Dickinson NEUT # 5.9 103/ul Normal 1.4-6.5 [facility] Comment on above: Performed By: #### A 1C #### [facility] [address] [place] [address] Dr. Alexsander Dickinson Neutrophils/100 WBC (Bld) 69.0 % Normal 43.0-75.0 [facility] Comment on above: Performed By: #### A 1C #### [facility] [address] [place] [address] Dr. Alexsander Dickinson Platelet mean volume (Bld) [Entitic vol] 10.5 fL Normal 9.5-13.5 [facility] Comment on above: Performed By: #### A 1C #### [facility] [address] [place] [address] Dr. Alexsander Dickinson PLT 275 103/ul Normal 150-450 [facility] Comment on above: Performed By: #### A 1C #### [facility] [address] [place] [address] Dr. Alexsander Dickinson RBC 4.22 106/ul Normal 4.20-5.40 [facility] Comment on above: Performed By: #### A 1C #### [facility] [address] [place] [address] Dr. Alexsander Dickinson WBC 8.6 103/ul Normal 4.0-11.0 [facility] Comment on above: Performed By: #### A 1C #### [facility] [address] [place] [address] Dr. Alexsander Dickinson LDHon 02-01-2023 LDH 124 U/L Normal 81-234 [facility] Comment on above: Performed By: #### C MP, LDH, URIC #### [facility] [address] [place] [address] Dr. Alexsander Dickinson POINT OF CARE GLUCOSEon Glucose [Mass/Vol] 98 mg/dL Normal 74-106 [facility] Comment on above: Performed By: #### A 1C #### [facility] [address] [place] [address] Dr. Alexsander Dickinson PROF 14(COMP METB)on 023 Albumin [Mass/Vol] 2.5 g/dL Critically low 3.4-5.0 [facility] Comment on above: Performed By: #### C MP, LDH, URIC #### [facility] [address] [place] [address] Dr. Alexsander Dickinson Albumin/Globulin [Mass ratio] 0.6 {ratio} Normal [facility] Comment on above: Performed By: #### C MP, LDH, URIC #### [facility] [address] [place] [address] Dr. Alexsander Dickinson ALP [Catalytic activity/Vol] 138 U/L Critically high 46-116 [facility] Comment on above: Performed By: #### C MP, LDH, URIC #### [facility] [address] [place] [address] Dr. Alexsander Dickinson ALT [Catalytic activity/Vol] 15 U/L Normal 14-59 [facility] Comment on above: Performed By: #### C MP, LDH, URIC #### [facility] [address] [place] [address] Dr. Alexsander Dickinson Anion gap [Moles/Vol] 14.5 mmol/L Normal [facility] Comment on above: Performed By: #### C MP, LDH, URIC #### [facility] [address] [address] [address] Alexsander Dickinson AST [Catalytic activity/Vol] 8 U/L Critically low 15-37 [facility] Comment on above: Performed By: #### C MP, LDH, URIC #### [facility] [address] [address] [address] Alexsander Dickinson Bilirubin [Mass/Vol] 0.2 mg/dL Normal 0.2-1.0 [facility] Comment on above: Performed By: #### C MP, LDH, URIC #### [facility] [address] [address] [address] Alexsander Dickinson Calcium [Mass/Vol] 8.6 mg/dL Normal 8.5-10.1 [facility] Comment on above: Performed By: #### C MP, LDH, URIC #### [facility] [address] [place] [address] Dr. Alexsander Dickinson Chloride [Moles/Vol] 103 mmol/L Normal 98-107 [facility] Comment on above: Performed By: #### C MP, LDH, URIC #### [facility] [address] [address] [address] Alexsander Dickinson CO2 [Moles/Vol] 23.7 mmol/L Normal 21.0-32.0 [facility] Comment on above: Performed By: #### C MP, LDH, URIC #### [facility] [address] [address] [address] Alexsander Dickinson Creatinine [Mass/Vol] 0.61 mg/dL Normal 0.55-1.02 [facility] Comment on above: Performed By: #### C MP, LDH, URIC #### [facility] [address] [address] [address] Alexsander Dickinson EGFR-AF ECUADOREAN >60 Normal >=60 [facility] Comment on above: Performed By: #### C MP, LDH, URIC #### [facility] [address] [place] [address] Dr. Alesxander Dickinson EGFR-NON AF ECUADOREAN >60 Normal >=60 [facility] Comment on above: Performed By: #### C MP, LDH, URIC #### [facility] [address] [address] [address] Alexsander Dickinson Globulin (S) [Mass/Vol] 4.1 g/dL Normal [facility] Comment on above: Performed By: #### C MP, LDH, URIC #### [facility] [address] [address] [address] Alexsander Dickinson Glucose [Mass/Vol] 123 mg/dL Critically high 74-106 [facility] Comment on above: Performed By: #### C MP, LDH, URIC #### [facility] [address] [place] [address] Dr. Alexsander Dickinson Potassium [Moles/Vol] 4.2 mmol/L Normal 3.5-5.1 [facility] Comment on above: Performed By: #### C MP, LDH, URIC #### [facility] [address] [place] [address] Dr. Alexsander Dickinson Protein [Mass/Vol] 6.6 g/dL Normal 6.4-8.2 [facility] Comment on above: Performed By: #### C MP, LDH, URIC #### [facility] [address] [place] [address] Dr. Alexsander Dickinson Sodium [Moles/Vol] 137 mmol/L Normal 136-145 [facility] Comment on above: Performed By: #### C MP, LDH, URIC #### [facility] [address] [place] [address] Dr. Alexsander Dickinson Urea nitrogen [Mass/Vol] 5.0 mg/dL Critically low 7.0-18.0 [facility] Comment on above: Performed By: #### C MP, LDH, URIC #### [facility] [address] [place] [address] Dr. Alexsander Dickinson Urea nitrogen/Creatinine [Mass ratio] 8.2 mg/mg Normal [facility] Comment on above: Performed By: #### C MP, LDH, URIC #### [facility] [address] [place] [address] Dr. Alexsander Dickinson PROTIMEon 02-01-2023 INR Coag (PPP) [Relative time] {INR} Normal [facility] Comment on above: Performed By: #### H BSANS #### [facility] [address] [place] [address] Dr. Alexsander Dickinson INR GUIDELINES SEE BELOW Normal [facility] Comment on above: Result Comment: CAROLEE RED INR: 2.0 - 3.0 CONDITIONS NOT LISTED BELOW 2.5 - 3.5 FOR PROSTHETIC HEART VALVE REPLACEMENT 2.5 - 3.5 RECURRENT THROMBOSIS Performed By: #### H BSANS #### [facility] [address] [place] [address] Dr. Alexsander Dickinson PT Coag (PPP) [Time] 9.2 s Normal 9.0-11.6 [facility] Comment on above: Performed By: #### H BSANS #### [facility] [address] [place] [address] Dr. Alexsander Dcikinson PTTon 02-01-2023 aPTT Coag (Bld) [Time] 25.9 s Normal 22.3-36.2 [facility] Comment on above: Performed By: #### H BSANS #### [facility] [address] [place] [address] Dr. Alexsander Dickinson TYPE AND SCREENon 02-01-2023 TYPE AND SCREEN Negative Normal [facility] Comment on above: Performed By: #### A FPMAT #### [facility] [address] [place] [address] Dr. Alexsander Dickinson URIC ACID SERUMon 02-01-2023 Urate [Mass/Vol] 5.5 mg/dL Normal 2.6-6.0 [facility] Comment on above: Performed By: #### C MP, LDH, URIC #### [facility] [address] [place] [address] Dr. Alexsander Dickinson US PREG BIOPHY W [...] by: DEE GALLEGOS Date: 2023-02-01 15:04 Normal [facility] US PREG BIOPHY W NON STRESSo [...] by: SEBASTIAN HENRY Date: 2023-01-25 15:18 Normal [facility] US PREG BIOPHY W NON STRESSo [...] by: DEE GALLEGOS Date: 2023-01-19 06:16 Normal [facility] US PREG BIOPHY W NON STRESSo [...] DEE GALLEGOS Date: 2023-01-11 16:42 Normal [facility] GTT 3 HR PREGon 12-01-2022 Glucose [Mass/Vol] 104 mg/dL Normal 74-106 [facility] Comment on above: Performed By: #### A 1C #### [facility] [address] [address] [address] Alexsander Dickinson Glucose [Mass/Vol] 182 mg/dL Normal [facility] Comment on above: Performed By: #### A 1C #### [facility] [address] [address] [address] Alexsander Dickinson Glucose [Mass/Vol] 114 mg/dL Normal [facility] Comment on above: Performed By: #### A 1C #### [facility] [address] [address] [address] Alexsander Dickinson Glucose [Mass/Vol] 73 mg/dL Normal [facility] Comment on above: Performed By: #### A 1C #### [facility] [address] [place] [address] Dr. Alexsander Dickinson PAP ACOG PANEL 2: 21 to 29on 11-18-2022 . . Normal [facility] Comment on above: Performed By: #### A 1C #### [facility] [address] [place] [address] Dr. Alexsander Dickinson Age Gdln ACOG Testing 21-29 [facility] Comment on above: Performed By: #### A 1C #### [facility] [address] [place] [address] Dr. Alexsander Dickinson DIAGNOSIS: Comment [facility] Comment on above: Result Comment: NEGA TIVE FOR INTRAEPITHELIAL LESION OR MALIGNANCY. Performed By: #### A 1C #### [facility] [address] [place] [address] Dr. Alexsander Dickinson Methodology: Comment [facility] Comment on above: Result Comment: This liquid based ThinPrep(R) pap test was screened with the use of an image guided system. Performed By: #### A 1C #### [facility] [address] [place] [address] Dr. Alexsander Dickinson Note: Comment [facility] Comment on above: Result Comment: The [...] A 1C #### [facility] [address] [place] [address] Dr. Alexsander Dickinson Performed by: Comment [facility] Comment on above: Result Comment: Cici Clarke, Die Casting Supervisor (ASCP) Performed By: #### A 1C #### [facility] [address] [place] [address] Dr. Alexsander Dickinson Reflex Criteria: Comment [facility] Comment on above: Result Comment: The HPV DNA reflex criteria were not met with this specimen result therefore, no HPV testing was performed. . Performed By: #### A 1C #### [facility] [address] [place] [address] Dr. Alexsander Dickinson Specimen adequacy: Comment Normal [facility] Comment on above: Result Comment: Sati sfactory for evaluation. No endocervical component is identified. Performed By: #### A 1C #### [facility] [address] [place] [address] Dr. Alexsander Dickinson CHLAMYDIA/GONOCOCCUS ZUNILDA (SW AB/URINE/PAPon 11-17-2022 Chlamydia trachomatis, ZUNILDA Negative Normal Negative [facility] Comment on above: Performed By: #### A 1C #### [facility] [address] [place] [address] Dr. Alexsander Dickinson Neisseria gonorrhoeae, ZUNILDA Negative Normal Negative [facility] Comment on above: Performed By: #### A 1C #### [facility] [address] [place] [address] Dr. Alexsander Dickinson VAGINITIS/VAGINOSIS DNA PROB Jose De Jesus 11-16-2022 Reema species Negative Normal Negative [facility] Comment on above: Performed By: #### V AGINT #### [facility] [address] [place] [address] Dr. Alexsander Dickinson Gardnerella vaginalis Negative Normal Negative [facility] Comment on above: Performed By: #### V AGINT #### [facility] [address] [place] [address] Dr. Alexsander Dickinson Trichomonas vaginalis Negative Normal Negative [facility] Comment on above: Performed By: #### V AGINT #### [facility] [address] [place] [address] Dr. Alexsander Dickinson US PREG INCOMPLETE ANATOMYon [...] Free T4 [Mass/Vol] 0.89 ng/dL Normal 0.76-1.46 [facility] Comment on above: Performed By: #### H BSANS #### [facility] [address] [place], [place] [address] Dr. Alexsander Dickinson TSHon 10-19-2022 TSH 1.303 uIU/mL Normal 0.358-3.740 [facility] Comment on above: Performed By: #### H BSANS #### [facility] [address] [place], [place] [address] Dr. Alexsander Dickinson US PREG ANATOMY SINGLEon [...] FPMAT #### [facility] [address] [address] [address] Alexsander Dickinson AFP Value 60.8 ng/mL Normal [facility] [facility] Comment on above: Performed By: #### A FPMAT #### [facility] [address] [address] [address] Alexsander Dickinson AFP, Serum for Spina Bifida Report Normal [facility] Comment on above: Performed By: #### A FPMAT #### [facility] [address] [address] [address] Alexsander Dicknison Comment Comment Normal [facility] Comment on above: Result Comment: Niurka Patricia, Ph.D., [facility] Director . References: Available Upon Request. . Multiples Of Median Cutoffs For AFP Elevations Fonseca 2.5 Black 2.8 IDD 2.0 Twins 4.5 Abbreviation Definitions IDD - Insulin Dep Diabetes OSBR - Open Spina Bifida Risk . For further inquiries contact [facility] at [phone]. . This test was developed and its performance characteristics determined by [facility]. It has not been cleared or approved by the Food and Drug Administration. Performed By: #### A FPMAT #### [facility] [address] [place] [address] Dr. Alexsander Tiwari Age Collection Date 19.4 weeks Normal [facility] Comment on above: Performed By: #### A FPMAT #### [facility] [address] [address] [address] Alexsander Dickinson Gestat, Age Based on NILE Normal [facility] Comment on above: Result Comment: 02/2023 Recalculations are not recommended when gestational dating by LMP and ultrasound are within 10 days. Performed By: #### A FPMAT #### [facility] [address] [place] [address] Dr. Alexsander Dickinson Insulin Dep Diabetes No Normal [facility] Comment on above: Performed By: #### A FPMAT #### [facility] [address] [place] [address] Dr. Alexsander Dickinson Interpretation Comment Normal [facility] Comment on above: Result Comment: [...] Customer Services to discuss available options. The [employer] recommends amniocentesis be offered to women age 35 and older. Performed By: #### A FPMAT #### [facility] [address] [place] [address] Dr. Alexsander Dickinson [age] Normal [facility] Comment on above: Performed By: #### A FPMAT #### [facility] [address] [place] [address] Dr. Alexsander Dickinson Multiple Gestation No Normal [facility] Comment on above: Performed By: #### A FPMAT #### [facility] [address] [place] [address] Dr. Alexsander Dickinson OSBR Risk 1 [place] 2809 Normal [facility] Comment on above: Performed By: #### A FPMAT #### [facility] [address] [place] [address] Dr. Alexsander Dickinson PDF . Normal [facility] Comment on above: Performed By: #### A FPMAT #### [facility] [address] [place] [address] Dr. Alexsander Dickinson Race Normal [facility] Comment on above: Performed By: #### A FPMAT #### [facility] [address] [place] [address] Dr. Alexsander Dickinson Test Results: Negative Normal [facility] Comment on above: Performed By: #### A FPMAT #### [facility] [address] [place] [address] Dr. Alexsander Dickinson GTT 3 HR PREGon 09-29-2022 Glucose [Mass/Vol] 99 mg/dL Normal 74-106 [facility] Comment on above: Performed By: #### A FPMAT #### [facility] [address] [place] [address] Dr. Alexsander Dickinson Glucose [Mass/Vol] 173 mg/dL Normal [facility] Comment on above: Performed By: #### A FPMAT #### [facility] [address] [place] [address] Dr. Alexsander Dickinson Glucose [Mass/Vol] 151 mg/dL Normal [facility] Comment on above: Performed By: #### A FPMAT #### [facility] [address] [place] [address] Dr. Alexsander Dickinson Glucose [Mass/Vol] 76 mg/dL Normal [facility] Comment on above: Performed By: #### A FPMAT #### [facility] [address] [place] [address] Dr. Alexsander Dickinson GLUCOSE - 1HRon 09-20-2022 Glucose [Mass/Vol] 159 mg/dL Critically high 74-106 [facility] Comment on above: Performed By: #### H BSANS #### [facility] [address] [place] [address] Dr. Alexsander Dickinson HEP B SURFACE ANTIGEN SCREEN on 08-17-2022 HBsAg Screen Negative Normal Negative [facility] Comment on above: Performed By: #### H BSANS #### [facility] [address] [place] [address] Dr. Alexsander Dickinson HEPATITIS C VIRUS AB W/ REFL EX QUANTon 08-17-2022 HCV AB <0.1 Normal 0.0-0.9 [facility] Comment on above: Performed By: #### A 1C #### [facility] [address] [place] [address] Dr. Alexsander Dickinson Interpretation: Comment Normal [facility] Comment on above: Result Comment: Nega tive Not infected with HCV, unless recent infection is suspected or other evidence exists to indicate HCV infection. Performed By: #### A 1C #### [facility] [address] [place] [address] Dr. Alexsander Dickinson HIV 1 AND 2 WITH REFLEXon HIV Screen 4th Generation wRfx Non-Reactive Normal Non Reactive [facility] Comment on above: Result Comment: HIV Negative HIV-1/HIV-2 antibodies and HIV-1 p24 antigen were NOT detected. There is no laboratory evidence of HIV infection. Performed By: #### H IV12 #### [facility] [address] [address] [address] Alexsander Dickinson RPR QUANTon 08-17-2022 Rapid [...] utilized, such as Treponema pallidum (Syphilis) Screening [place] (743863) or Rapid Plasma Reagin (RPR) Test With Reflex to Quantitative RPR and Confirmatory Treponema pallidum Antibodies (641433). Performed By: #### H BSANS #### [facility] [address] [place] [address] Dr. Alexsander Dickinson RUBELLA AB IGGon 08-17-2022 Rubella Antibodies, IgG 11.90 index Normal Immune >0.99 [facility] Comment on above: Result Comment: Non- immune <0.90 Equivocal 0.90 - 0.99 Immune >0.99 Performed By: #### H BSANS #### [facility] [address] [place] [address] Dr. Alexsander Dickinson CBC AUTO DIFFon 08-16-2022 BASO # 0.1 103/ul Normal 0.0-0.1 [facility] Comment on above: Performed By: #### H BSANS #### [facility] [address] [place] [address] Dr. Alexsander Dickinson Basophils/100 WBC (Bld) 0.6 % Normal 0.2-2.0 [facility] Comment on above: Performed By: #### H BSANS #### [facility] [address] [place] [address] Dr. Alexsander Dickinson EO # 0.1 103/ul Normal 0.0-0.7 [facility] Comment on above: Performed By: #### H BSANS #### [facility] [address] [place] [address] Dr. Alexsander Dickinson Eosinophils/100 WBC (Bld) 0.9 % Normal 0.9-7.0 [facility] Comment on above: Performed By: #### H BSANS #### [facility] [address] [place] [address] Dr. Alexsander Dickinson Erythrocyte distribution width (RBC) [Ratio] 12.9 % Normal 11.0-15.0 [facility] Comment on above: Performed By: #### H BSANS #### [facility] [address] [place] [address] Dr. Alexsander Dickinson Hematocrit (Bld) [Volume fraction] 39.0 % Normal 36.0-48.0 [facility] Comment on above: Performed By: #### H BSANS #### [facility] [address] [place] [address] Dr. Alexsander Dickinson Hemoglobin (Bld) [Mass/Vol] 12.9 g/dL Normal 12.0-16.0 [facility] Comment on above: Performed By: #### H BSANS #### [facility] [address] [place] [address] Dr. Alexsander Dickinson IG # 0.04 10e3/ul Critically high 0.00-0.03 [facility] Comment on above: Performed By: #### H BSANS #### [facility] [address] [place] [address] Dr. Alexsander Dickinson IG % 0.4 % Normal 0.0-0.5 [facility] Comment on above: Performed By: #### H BSANS #### [facility] [address] [place] [address] Dr. Alexsander Dickinson LYMPH # 2.4 103/ul Normal 1.2-3.8 [facility] Comment on above: Performed By: #### H BSANS #### [facility] [address] [address] [address] Alexsander Dickinson Lymphocytes/100 WBC (Bld) 26.3 % Normal 20.5-60.0 [facility] Comment on above: Performed By: #### H BSANS #### [facility] [address] [address] [address] Alexsander Dickinson MANUAL DIFF REQ NO Normal [facility] Comment on above: Performed By: #### H BSANS #### [facility] [address] [address] [address] Alexsander Dickinson MCH (RBC) [Entitic mass] 28.4 pg Normal 26.7-34.0 [facility] Comment on above: Performed By: #### H BSANS #### [facility] [address] [address] [address] Alexsander Dickinson MCHC (RBC) [Mass/Vol] 33.1 g/dL Normal 29.9-35.2 [facility] Comment on above: Performed By: #### H BSANS #### [facility] [address] [address] [address] Alexsander Dickinson MCV (RBC) [Entitic vol] 85.7 fL Normal 81.0-99.0 [facility] Comment on above: Performed By: #### H BSANS #### [facility] [address] [address] [address] Alexsander Dickinson MONO # 0.6 103/ul Normal 0.3-0.8 [facility] Comment on above: Performed By: #### H BSANS #### [facility] [address] [address] [address] Alexsander Dickinson Monocytes/100 WBC (Bld) 6.8 % Normal 1.7-12.0 [facility] Comment on above: Performed By: #### H BSANS #### [facility] [address] [address] [address] Alexsander Dickinson NEUT # 5.8 103/ul Normal 1.4-6.5 [facility] Comment on above: Performed By: #### H BSANS #### [facility] [address] [address] [address] Alexsander Dickinson Neutrophils/100 WBC (Bld) 65.0 % Normal 43.0-75.0 [facility] Comment on above: Performed By: #### H BSANS #### [facility] [address] [address] [address] Alexsander Dickinson Platelet mean volume (Bld) [Entitic vol] 9.9 fL Normal 9.5-13.5 [facility] Comment on above: Performed By: #### H BSANS #### [facility] [address] [address] [address] Alexsander Dickinson PLT 275 103/ul Normal 150-450 [facility] Comment on above: Performed By: #### H BSANS #### [facility] [address] [place] [address] Dr. Alexsander Dickinson RBC 4.55 106/ul Normal 4.20-5.40 [facility] Comment on above: Performed By: #### H BSANS #### [facility] [address] [place] [address] Dr. Alexsander Dickinson WBC 8.9 103/ul Normal 4.0-11.0 [facility] Comment on above: Performed By: #### H BSANS #### [facility] [address] [place] [address] Dr. Alexsander Dickinson CULTURE URINEon 08-16-2022 CULTURE URINE Culture Observations: MODERATE GROWTH OF MIXED GENITAL JOHN. NO POTENTIAL PATHOGENS SEEN. Normal [facility] Comment on above: Performed By: #### A FPMAT #### [facility] [address] [place] [address] Dr. Alexsander Dickinson GLYCOHEMOGLOBIN A1Con 2021 ADA RECOMMENDATION SEE BELOW Normal [facility] Comment on above: Result Comment: ADA RECOMMENDED LIMIT 4.0 - 6.0 ADA THERAPEUTIC TARGET < 7.0 ACTION SUGGESTED > 7.0 Performed By: #### A 1C #### [facility] [address] [place] [address] Dr. Alexsander Dickinson Glucose [Mass/Vol] 111 mg/dL Normal [facility] Comment on above: Performed By: #### A 1C #### [facility] [address] [address] [address] Alexsander Dickinson HbA1c (Bld) [Mass fraction] 5.5 % Normal 4.5-6.2 [facility] Comment on above: Performed By: #### A 1C #### [facility] [address] [address] [address] Alexsander Dickinson LATRELL BOX TEST PT SEND OUTo n 08-16-2022 SENT TO REF LAB 08/16/2022 Normal [facility] Comment on above: Performed By: #### N BOX #### [facility] [address] [address] [address] Alexsander Dickinson TYPE AND SCREENon 08-16-2022 TYPE AND SCREEN Negative Normal [facility] Comment on above: Performed By: #### A FPMAT #### [facility] [address] [address] [address] Alexsander Dickinson US PREG TVon 07-21-2022 [...] weeks 2 days Yolk sac: 1.7 mm [place]-rump length: 5.8 mm, 6 weeks 3 days Heart rate: 125 bpm Uterus is normal in appearance, anteverted, retroflexed The ovaries are normal in appearance. Cervix: Closed, 3.9 cm small amount of fluid in the endocervical canal IMPRESSION: Viable fonseca intrauterine gestation measuring 6 weeks 3 days Electronically authenticated by: SEBASTIAN HENRY Date: 2022-07-13 17:05 Normal [facility] Coding Summaryon 03-17-2022 Coding Summary HTMLBase 64 EgupmizzCYe1uIc+PGhl YWQ+SI5READbF67sePPp fR7LI2hJRC3QJUKNZUWQ AV8LQU8jvEV8EHveM4Yo biAv FwnaeKTqGA15OTh5AZU1 dPnfANzdsU8fiJLyR6d3 HxAfIV58jC23JTajMXWt QfD6QwDderiurXLx Z6hhChKsbVJuHha+PHRh YmxlIHdpZHRoPScxMDAl ZzQvqVctYK6bHn9yYKZb LWNvbGxhcHNlOiBj w5fgHTIvPJtdPN1tdNms P3OdjCG2DMAet9c2Kr14 dHI+JELzQPN3oMyhNBps j295ItRui1jlNUV7 cIDpQHxiHID5R31li2S0 OPUdRVTuVTL8wMH3yI4g mZqivlpuU3HqfEUsXxL3 PPP6zYCnzB8yqGrd fylypC0yIux+B33LLO6K XVHUHM3AIfw0A3QwUgeo dHI+YK92YMBkGE64gPIz zMSly0ehsJf8ZxAx HTTeBQY1oRrnIRuqf0Le FZUpJ97ziHRtc3X4GXBo hBjljLObUqEmxPT6cJ1r DWyofwcpt3pmypdg Fqfcg5tidf58yD71W45z YBgqMBCuDUC3FXGeWSXf yXuqjs5buI0ySf5+IDxj b5wby8rgyXf4QaZc HLWwzxXvzWfwUVY5m3Lc Bm77P2CmbNhtu9WeFbz1 ex85nNQeb0K6pUE5YFgx KYOdkL7mJSmxRbM0 ZYZaYvZxtY12jMOiQJsf We0cuVtziIzyXJ3kBAFx vvjuRMWhiV0mQCKqpXMg rWpyQK9kOIGudrwu i752GuMsXFT9KEEncEIc W8YgkU8uKzBsIKZdRXXy V5SthZWfOGdyR945SRic GmW1QIZdodVcQ4Nq DIUmsXbeAtW1d4R1Rj9F b5SywzwbZXW4YDqkLMB3 OtBjHpHvBoF1J5JwEgx5 MUUyaRveFO5oR1Db CSJonrimirnfdHE5YEMw QCSvnN02kNKyWGcrLq0v o4X1i487VAKxNRUnsH44 Sk5zrLutDCEwmBXQ yI3cvxvpu8lnmwccYwBn JPKyKOs9ERi7XFAcjWjn OgOrMTM4ThC5TVB4bUEx vC2tvQkfxxjbiG6n Oyc+S35nmP0nWPO9YBY7 ikvkXXBkrmPpQA05OD50 Q9RnHmqdvOWqrYH+PGRp wdMqePaiAU4uYvAa i5dae9AeCNppD9NbJEQa WJuuHwl9SPRsRGY3zXF3 aV6nZNRlZDtwm6Z6jOW7 T3LlgtAwqk9kp7md LVZsYClgG86hqPSov2I4 ZFLmoEW6LGIpyPnlWsYi gO83Nzp+ORVhiFnfa9Dg Zvjjj1whw5fsfSy6 IjMwJSIgdmFsaWduPSJ0 i5GlQz83X91xQUcaGNRc DFFaRTCxIXMbrAccbp8p gA8yKu4+PGNvbCB3 gRQ9jB2rWMUmHeA8ROqj H429AxFkxKIoZthih4ex l0bpqVx7SoZlRQYxarNl pWgdWCG6f6BdTq67 G22iVArmSUQhLLUhJKFm FBLhuDkurd4xtV4aMv6+ YH8pt3dbzc12mP98aDZ+ IDEgRMX6hRvfNNcm GHNvnS6cGFeqJeE7DCKh ZxSbmA66hVCuTSfqDm7u tNgzvWdfVA4uZJNypidc e568JqJvq6vdUZEt fJWpIWmtOMP7F43qp4Q2 BWEmRDQzGQV3fPD7oM2i bGlnbjogbGVmdDsgdmVy pWbeMDcuZQvaB986 IHRvcDsnPlBhdGllbnQg JrQcQEv1T3YuCre0MVOv zIqwBI5bpGDgFIjdQb9d cAkafQvvRP1fGAUf ijlqb141PvArn0bcDBBb mMVoXSzjNYY6I10ak1T9 VROnBLVyDGD9vHU2lW3d bGlnbjogbGVmdDsg tpDsgIteAWkrNPwcA728 IHRvcDsnPkJpcnRoIERh yCX4YY71CR33jUZry8E8 gCW6K6ZwQUPfwhhl qrelzAI4ITYzIOHvlV17 Ym1oeWjkIy4mEMLiSNM5 MYQkaABdO1PaiO4cHnXi WXEnIHJsN0SafNOh GSlbM317CGceJbK7QSZp nzJeN5LwFTNphNkvBtD5 s9S2Tv4FT5R2JK54PM59 pELrf0U4iYG7X1Yg KLDrskhwfscnrDX0AEUk YYSnlE08Sa9piZqjMc9d MPKeMXV0FSNpbUGzH0Mn vY1oJaSySPJsWJAk H3GmpPDhTEvsV430NUau ZcT3FSCpqlDhQ4JiLAXs vYxuBwZ7k9L4Kx8ZWGm6 DX52HM62wPSdu1I3 bBZ5S0WxHFXewwskehmj hJR1GOJmNVXquQ11Qf6w tUcnOb5iTEEzAVK8HQRw wKHpJ1VpjN4pZlBd FJXfBQPhB8ZexFWyQFrd L604XIvsYfV1XLNfcrNu U5ZuZBHvqNyySyS5h8M5 Be7HJRLmKQ89EHT4 jOY4TY66YN48S7CuGues dGFibGU+PHRhYmxlIHdp ZHRoPScxMDAlJyBzdHls GQ1rDd0sPKCbCFAi gFsprPYmPwJfk5cfBCMg JUyqTT7mpPdwY3DakVA0 METdk8v1Ii14T66kJ4Ml dXA+DWEuiNK9hIF0 sK9sAoSuGuT2XNqiL290 OmRydZQnWqeuj8dnt3vf lCj0OsX0WLBgheDinMus OCG7v3JzAm79I60c IHdpZHRoPSIxNSUiIHZh iNuzxq8kxR0sEz7+PGNv pTO7hAD6aT6mUuNwVxV8 EEmdW792YgTwgJTf Zxkrd5pyl8gtfWe1BdGj RBBbawDnsGyzKBP3a9Vo Uh87X7HqdBztf3UfAsd4 kl08hFKlk5T3wNV0 W6PmMGVcezrmwHAyqGam KX9gNUVigptyXOWgqG0q IENiA8h3VwIsRvM2SNkf I1UnctJ1LBVttMLz YAltKLQ2W56je6F7KOQv CPLdQSB1lUV7uA3cwUfy bjogbGVmdDsgdmVydGlj MIvvRPiuH359RGVm fWoqKNFavL9fRLHqnLYf gQplIY3wBYPtjpdnSgWS TExJTlMsIEFMWVNTQSBS QVAOVSi5J3ToYbe1 QUTmmMejIR1drWQsDWvg Ta3pdVrkfEkaCW4cIMAg acmoIRCnpT3eWQBstEIb xWmsNF4rUTVinxfr m347ObDuVDI7CSMhnQOm Q0AoaE0rXyWlOECuDNHj E5QhnXKuYIicE154JFna QsY5PCLgmzZqY4Ye OGEvpOwaZsH8z8T2Uw1f WM2kLm9bISh4TH18GO09 sYKjp0P1nTI3L3ZiWWNl ernnexatwLH0HECw VCCcsR77cEAlKCmrIv1b f6Q8i095BBRyBCJxxN84 Bj9usIsaSWLgkQPAdV0x ujkij3rwkfogLoHl VGMjRYx6GZe2TZFzyAqj PzCwIOP1RlG8EPK0oPOs gI6zsCfhlwoyzE9zAxa+ FnlwPSFtqjB1C3Ro Bge2WMBqhLykXM1apVQl VDruQv2wkJqxbOsyUP3l IGXqmdivHDJpnK3rCPHu xMElmBvyOL6gOFTy mcnew236TrAwDBZ1KDUm bIKkL7TgcI5rCgQiQOZs QRMdT4BkqSArVBwaJ755 HYjfZhR8XFCkofQg F6AlXJPraQwwGvH1z9Z9 Pw0UQX6DZAU4J5BtFxs7 WAGjnNcwJH6bfHUoCRtq Dz9bmTzesTlzQA0i PJRlfglzZTEgvL9xGNYe gICtjIhtZE9hSZRiapov v395ZoJsXYG1ZSOyaAEf O2LnxV0oBpPfHUEu MLJdI7BblOMsVEbrD780 OAyeXwH7NPWkteMiH5Wx IWWxuSprWkK0z4V6Eg6A UDwvdGQ+MD67yn61 Q0XrIfcjMgm9VFVqBMK4 lND8eW8sVCRcZBglo3C3 cWR7B3WzliMlat0zw8oq QKNcXInuZ93hxXKo v1A5ZCZjkRZ9DNSprLrs RdZljW96Vgs+PGNvbGdy u3NtNifpu9ocn7gtbPt1 IjMwJSIgdmFsaWdu UUI5v4BaCf10Y82iCNff ZHRoPSIzMCUiIHZhbGln mq8fmF8aUb5+PGNvbCB3 uMQ6pZ6zRfJiCaP5 MHmhL161ThRfgBCuEtnm t6mel6jgvKd2QuRqMNTt cuNhzUzoKVQ0y0CvSg16 X1LhlOcgb0IpGld8 un64wUZna5J1vUG8C3Oq QFTiqgjyfYAalKjrQR3j ZVXqvwgcYKTfdM4hOSOx Q9a5TgCsWrG2TShd K3AzskF3CSJafIRaTXMo nCZPaK2bubqds7aqlsqc OuSoXUZnXTn1UQp8JYRp pYpfDbJpBCQ4CdF9 WYB2dHBvcD3xoLdsosfc qK5gYzb+FWs6q8jlwZIy HN2haCH8TK70EW31pRFc t9B7mRL0T8RgBMSg zyykkiayvBC5EWHlKDAr sU96Ig8igMdcQk7sURRe JXH2JVRmdJGyY7ImiV2d WrApXDTqHIFfK7Ye gSLfSKygJ260IFphJnI2 DOAtwnErP8ZbMRLxcIqy MvU7t8E5Uc3PLM64JK23 RD41lEVlo1C2cSZ7 S4EoYFJdxwyfkrbttLZ5 SPWzAWWtyR95Dt4bsAye Pj4uDWYkLYE6UANvtOMc V7AeeB1lWqGmOQAd ZHTwL9CusHClTBigL070 TQumYqR7JGGyxvAjA2Mv TUKrtJijWnX2v3I7Ja4V Qj23VS34FD02xRHy p3C3aDQ5G8DjFWQkessr fooysWY3NAQmKKItiX36 Gm2gvUgzEd0zLEAeDHT6 OSJhlVMiF6HeeO4f LcSxJZQwWOEzO9EsiXIl VTukC474GQuePeJ7EPLo taAqJ6BdGBOmxKdrSeG3 w7F4Hd3QKAsnqhx4 D1MlGguvfRM+KN31RAMl WM50xAKkyHIob6nwfUt7 QoQvKYYnGOI2tCmlXQfp g2LzWUYtZ23tsRCe c2U (more content not included)... [facility] Coding Summary HTMLBase 64 YtmlcmckQXa6eRu+PGhl YWQ+NS7YQPBaY57jrJUz lD2YC6iFPO6SOYYFLPXS JJ9VPO3djSR6RZtxU9Ar biAv TqiwdBYiJM10XAl7AIL6 kJzwPAtyjY6xgMQjF3s9 CsUqSC44bM62XPxuORKc GtQ7QmShshtcfGEq V2bmFmTkcZOsUmb+PHRh YmxlIHdpZHRoPScxMDAl YyLssWxjOY5xIt1iKMSj LWNvbGxhcHNlOiBj k4yvLYQjJLmcBC6ijKqr R2SsuFV3OVWak4g0Di17 dHI+PDZmUQY3tRsnVUnd l583SzKmh4rqMMP2 eFHzFOchPMP2Q90cs6M1 RCUiCXHmMMG3jQS0cJ3y uKoqqtyfT6VjdTVhYsP9 JZN0wHFszO0nmUwu ggmelI6mDsk+E46LUG5O MWJQCR1EUvx3A2QjLdiz dHI+AH45TSGgRN44qXHd pGGjs4uxcWq1VoOn YRBfHVX0qFlaYMhlp1Ah QDRfD24yxMCcu8J2WOSt pSpzjRRrVdGenPU0jG0l VFzedulyr5baqfvt Gmkge8fvis02pU46T11g CAatGCArBYV4EDPbBEZi jIijwt8ioW8nPr2+IDxj e8kcr0nwhSt5EzZp HYGxgzRdeUmnCHM2e3Bb Eu71Y1YixMpoq0AlIsx2 lh70dVQvt3U4eGL9IRxv KEUctO1gUStiKpA1 VCDiEzGdiM51kPAwDLnk Wd7ipZirpMzsYQ9uDASm dwamVLAaxJ6tDUJvuHSv aGsvYR4wHRZjwwfn r337HmBhNRH3MUEoyQAn O0LgkR2eGpBeFNTqHBSs P3RztAVxUImlB168BSgi OfW9DKLhzzQbV3Qs PHVurKfcMcR8c8I5Vu7M v7SdayodZWW4TLjgPZU3 ZlNcNlWgQbZ7F2XnVnx6 MPCvmZlhZE8hE5Bx KZIgrjlnmgokxXW4ZMXw GTBkvC45nQZqWFkqVd8m n4X8v643ISFqDTRypY34 Wg1umHrcPRYybHVC jQ6peisyk6qnynovFlYt RFKtKEx7QTx1OPUdlYqc AzPfTUT5IvU0TWJ1sVJc bV9myHsqwkfpcJ7k Oyc+Z14jcF9rJBD4SXD6 ydukCVKgjvYlFH13TU19 U6LnKyzcsWGflZD+PGRp abDgaRrxOC4yXfTx f8owl9IoOGlvU4ZqMUFe ASvwHdm7DCYxEKT8rXA6 cJ5mSSVrYPcpf1Y5eTR1 P8LgjaDxfm4ly8ij EBRsCCqmK03dmHWqo9I4 VZPefMD2TKJfbUajZzDj uV41Pkn+SLFumEtez1Wp Nrvxq8vba7poxAd6 IjMwJSIgdmFsaWduPSJ0 c8AyTh45V73nOAyaPUEy DHQhQXNfNSXdcUsmno9y wH0kPb1+PGNvbCB3 gTM3rE0rVVPtWbG1VZsz R836RsIgcWBbJbioq8fc a7fegSa1DwNbHYKujdKz yPoaCMK9c9JmBf72 R94gECcfQWAvHKEeNRDq VEFnjKzrbq9riU4jIa3+ QU2ap3gdfs15rX75aBC+ BERnGZE9dSbdJUgb NCNtaS5yIRltIpX9DDTa KqDtiI38fNUvPUiaXs2b qCqfzEjsYE8pFJUxphgy y151ZtEyn2cpLDYh bEYwJQojKSP2Y16yo4H0 SMAyFXNoVEY4jRD6jW9t bGlnbjogbGVmdDsgdmVy lRtsXMcgHRngK254 IHRvcDsnPlBhdGllbnQg HlYfPQz0Z2ItXvl6LEXd mXakWM7lbNZeUJbmRa8g iAtjvCkmLA9rXDFg dueod403VpOhi3zxMBIv eQJgJUltMTZ4T67tx3Q9 NRKyUJAeKIL4vER9iC1g bGlnbjogbGVmdDsg mdGzfFekAWujHFqmF698 IHRvcDsnPkJpcnRoIERh pBF9GD32BZ66mVUws6N2 bBW3L6UeCCDdpzih ugnruSK1MQTfKLNakU80 Dt1bzQmzHf5wWYQgKTT4 ZMXljPVwK7SodO1vEbAj REPrKHRpR3QafMRb YQsnS106CAwtFhG9DSMf heYdB4LsNTUnoRhcWnB6 l3D7Yl0OL1R6NN10EH80 lRXkp8G6iJR8A2Uu MGXdavpjpoaieOA9DYVi DYUdkJ31Dz9gsCmlBx8p OOKcECT3ELWrzNSsN7Rl lT5kGxKgJYArHMLp E4TbxONoWWtxM369ORzd HfC7NJMhggWdE0HuJVIt sEtjRzT1n3G7Dt0KEPc6 AK48QC91sIBxb4L4 iFJ2Y3VmBHPpscgjqiig wXD5YPCbDPQnbC35Gg7r aEihKm7vVSGjMEY2QTMy vXLzQ1PpgS5bTwQq KTNnOVItF1BrgKOsIQjc C858YZhgAqA0RPSlzjQb O9UsNDKvmPuaHhM2w6K4 Cl5EFQZsCC40RUJ6 mIZ3OM86VA11N6ArLmib dGFibGU+PHRhYmxlIHdp ZHRoPScxMDAlJyBzdHls QN9uZd4dBGTsSCQq sIfmwKDiQvIga6chAQUf OYebJZ1euLfcI0GmrOT3 WMNzl4s8Dk10N85bA3Wv dXA+URLmlUV4mMC0 yN9eJsTiKmN8FDylI229 JaWrzLMzJeyaj1cls5iq mJg2MyG4TJEucvSoaMah RJA0n7QkRz43A98x IHdpZHRoPSIxNSUiIHZh wDisws0hgL1fLj1+PGNv sGN3jRZ3yN9pQwBsEoZ5 DLzoN655NdTjbBPo Etegm5dig8nagMt3EdDt OMXgcoXovFbfVXO6h5Hm Us83Q8PfmQdjt0UxElr0 zp47nLUmh9C0sSG7 D4BlFHPbsqijbGJskRwn TK4iWTEcolgaLDAciR6r NUYkM2y7RoXiKzR1HSmi D5DupyW6TLIoiHOp YMypVIH1H44lz4K8SGPy NVMxGVM5xIX4xQ6thZco bjogbGVmdDsgdmVydGlj ITldSWrqA024AJTo gEkoVVKifR6iOVXkoECh iPpeLY2tRHCjaiulZxUB TExJTlMsIEFMWVNTQSBS FJWJKCl2F3OrSrj5 HSNklZdjUJ5yfJQdVSct Cu1zgLrouJarBN2sJVXc emavKDLkgF5pIDNhwGQu rOojFQ0xYNCaftpn d422VbWvCLI5SHPfdRPj Y8HsfR4cOzKpZWPvNVOb J7OaeLWjSMjrU369XKdf QhT1QOMxxoGvZ3Yw UDVegBsnOfR6z1L3Fk8r BV5lEz6wCEg0XP23RT80 pFGhf3P0hVN2M6YfRANj xrkjydvboKD1MNHq HNUheZ10jULnZZyrDz1n q6X1z767MELvBYNelA92 Ax2xyTnjRUKnjIWFmT7e dsgkg8skxipoIyKz FVSpXMe6CJj7FWHjyUgc WnVrSMG1XgO0KHA0wUXi vO1jrVtjdqzwuF0vFkn+ SrbcUCGmliC1E4Ax Aho9WTQeeIppBQ1bnMWj ZBpySt1bfAatjUxxFS4n VRDizwggTKHddG0bNCAp wUYvlDmvJT3zQDZm tvnmw675VrQsLQI7GTIt iHTjC9GvcL4rKgUtDKBh ENCtZ7TnmKMbWRagP071 WBniZbP9YXTzltWh M5GnBKQumFbmPkQ3f9L3 Ah3LCF0SDTU9C4LmDmt5 LTAsbLcqMG4iyBSgHIpk El9coOlguVmoDW2r YQJebtovBTCjhI3zEFUc cGEjlSgoHW1rSZAmuljh u115SwSiOSZ4ASHgkFUs H1ZrjW0cCxMwLEHo KSLlZ4DjdHDvVJwqX792 LJezBnD2VFQtywLtH0Gt DERaxNjkSrZ0w7P5Pn5K fKPnJ1RcJ9u4C8Ac PjwvdHI+GT76QYWdFA88 pWNqvHZwn4knbKv7VoWq IYOdSFK2oFpmPSofr9Ip HJZwR97cnORjd6D3 IGNvbGxhcHNlOyBlbXB0 yV0hKWzuawivu0nusvzr Uxiam5waja48rP43B08w IHdpZHRoPSIzMCUi KAJjvMxxtj4jaK6cYf6+ MWQeoFZ7aWR8vY8dQrMz GsW8CDbiS554PzXbrRMp Sqmot5ymk1svzUd1 IjIwJSIgdmFsaWduPSJ0 p9JpBx71E17eTXwoXOSm AIShXLCkIVVdkJjsqy8b jL4eAr9+PO9sh6ec va40vR59uAV+PHRkIHN0 eTsbDYykVLBaaA4uWKad VbM7HEOmJkCidA75cGUg LFxaPz5zqUclbYxd KU6cURPgntdqg146UeCk c3fpTRKicRVjFWgwNCW3 I52dz8B3BZXmLNZpLYG9 kDR0hU6dkLrqrgpx bGVmdDsgdmVydGljYWwt NPbsZ494HCCklQkwIwTk uQXgP0xypvQWEH8vRwhk dGQ+NVMcPGC1fHwv YBznOJVihG1aGXPxB7a9 NeMjLoI3BJyhG6DdhdP1 DUYtcZCmOZFivJDDxF7m eattu2wijlyuLaJp URDkBCv2UZf6FEGigNpe DcVbZPU5IyZ6RHJ8uEAv uB2xpFynrbyhfK8gRzh+ RklOOjwvdGQ+PHRk GTB9eWbxGAilRIWfoA3a RGPbH0f3BzYrVwK2ZNwc G5ImauL6UHJqoUUzEAMg nKKRjC2lvxazp5yv ucxqUlOoCEYtSRz0CDg5 DEPehQzjOrDnIDN4YiZ1 EWQ9hYAzmU4rhTckbscb fR9aSwl+TVJOOjwv dGQ+RSAnLKR0oRjtLApv VSErpU3lKVAdM7g2YrXg NgR9AOgkR5HlcjH3ESAe qWZqGTOnlXFYhR0t fyzxn1ngsudvYiWmZEIy WCp2RZz3BUPlxFwaWmLs KXR1WhL0NBH2wIHgeA2i jHnxzdthbW2uHlk+ OGA2RQE7KR55VO92U0At PjwvdGFibGU+PHRhYmxl IHdpZHRoPScxMDAlJyBz bSalGE0iCa4rDPTt LWN (more content not included)... Normal [facility] C Urineon 03-11-2022 C Urine Urine Culture ordered as a result of parameters set on specific urine dip and urine microsopic results. >3 Organisms Consistent with Contamination Recollection suggested. Normal [facility] Comment on above: Performed By: #### 1 2930894, 22421342, 1259902, 8409501854, 03419051, 6862607, 4259351168, 8607898977, 1913185184, 6357213 #### [facility] (DEFAULT) [address] [place] [address] .Auto Diff 03-09-2022 Auto Vernon % 8 % Normal 11-09 [facility] Comment on above: Performed By: #### 1 5805259, 05386707, 6460798, 3238764593, 78899787, 7789651, 4903776828, 7370941130, 7983631870, 8637027 #### [facility] (DEFAULT) [address] [place] [address] Baso Abs# 0.0 x10 Normal 0.0-0.2 [facility] Comment on above: Performed By: #### 1 0426236, 55883739, 2964608, 6398780964, 63391377, 0323910, 3628256578, 9253148661, 4281546318, 3741013 #### [facility] (DEFAULT) [address] [place] [address] 81309 Basophils/100 WBC (Bld) 0.3 % Normal 0.2-2.0 [facility] Comment on above: Performed By: #### 1 8656304, 11004170, 5376109, 7363776746, 38355378, 2205840, 5892704602, 5261875366, 4979086913, 5887496 #### [facility] (DEFAULT) [address] [place] [address] 11054 Eos Abs# 0.1 x10 Normal 0.0-0.4 [facility] Comment on above: Performed By: #### 1 8847310, 41183801, 4188774, 2856808250, 20341999, 9885771, 0897437516, 7370187557, 8734633028, 1715222 #### [facility] (DEFAULT) [address] [place] [address] 13075 Eosinophils/100 WBC (Bld) 1.0 % Normal 0.9-4.0 [facility] Comment on above: Performed By: #### 1 1181329, 67061156, 8321822, 1258945123, 99584095, 3900081, 9084279273, 9847182904, 7443312638, 0912558 #### [facility] (DEFAULT) [address] [place] [address] 39955 Lymph Abs# 2.0 x10 Normal 1.3-2.9 [facility] Comment on above: Performed By: #### 1 2788560, 36943925, 9174302, 9671298874, 29483130, 2924150, 6182667521, 8157019689, 0114190238, 4896729 #### [facility] (DEFAULT) [address] [place] [address] 50590 Lymphocytes/100 WBC (Bld) 35 % Normal 14-48 [facility] Comment on above: Performed By: #### 1 0247945, 52592525, 1962227, 7011854670, 26609827, 9836055, 8625524920, 3783698773, 5743969235, 9091066 #### [facility] (DEFAULT) [address] [place] [address] 96561 Vernon Abs# 0.5 x10 Normal 0.0-0.8 [facility] Comment on above: Performed By: #### 1 0355174, 19828806, 0840952, 4227913804, 01410997, 7445443, 0356550516, 6918127245, 0024505427, 6429588 #### [facility] (DEFAULT) [address] [place] [address] 39565 Neut Abs# 3.2 x10 Normal 1.5-9.2 [facility] Comment on above: Performed By: #### 1 5074889, 95445811, 1597244, 9189246818, 13065537, 9086456, 9215109625, 9689953758, 1577358196, 5837556 #### [facility] (DEFAULT) [address] [place] [address] Neutrophils/100 WBC (Bld) 55 % Normal 44-88 [facility] Comment on above: Performed By: #### 1 9582836, 06433410, 3881664, 8330937989, 70467248, 9076294, 7455336679, 1432953347, 8442645584, 2077510 #### [facility] (DEFAULT) [address] [place] [address] ABORhon 03-09-2022 ABO and Rh group Nom (Bld) Hx Check: Not Found Anti-A: 4+ Anti-B: 0 Anti-D: 4+ DCon: 0 A1: mf+ B: 4+ ABORh Interp: A POS Invalid Interpretation Code [facility] Comment on above: Performed By: #### 1 6419242, 34612336, 8474755, 3894992462, 33764558, 9568882, 7419709017, 7873369250, 5291464509, 1248303 #### [facility] (DEFAULT) [address] [place] [address] 25690 ABORh Retypeon 03-09-2022 ABO and Rh group Nom (Bld) Ordered by Discern. Anti-A: 4+ Anti-B: 0 Anti-D: 4+ DCon: 0 A1: mf+ B: 4+ ABORh Retype: A POS Invalid Interpretation Code [facility] Comment on above: Performed By: #### 1 9021507, 96730814, 3101132, 1982023913, 67069593, 8171534, 6124746301, 4844630056, 1312706054, 9363558 ####[facility] (DEFAULT)[address] [place] [address] 78091 CBC w/ Auto Diffon Erythrocyte distribution width (RBC) [Ratio] 13.3 % Normal 11.5-15.0 [facility] Comment on above: Performed By: #### 1 5184534, 83179182, 9976031, 1171253914, 85591099, 6191108, 2049212490, 1806727544, 0405024334, 8596107 #### [facility] (DEFAULT) [address] [place] [address] 22956 Hematocrit (Bld) [Volume fraction] 43.5 % High 33.7-40.4 [facility] Comment on above: Performed By: #### 1 7175646, 11023761, 5271934, 0697359217, 07150694, 3029318, 8440082653, 2239610993, 9727580447, 6850468 #### [facility] (DEFAULT) [address] [place] [address] 06594 Hemoglobin (Bld) [Mass/Vol] 14.1 g/dL Normal 11.3-15.9 [facility] Comment on above: Performed By: #### 1 8656538, 08802214, 7963669, 5456801325, 14877067, 9281743, 1241411835, 8759025630, 0537080214, 8196045 #### [facility] (DEFAULT) [address] [place] [address] 88619 Instr WBC 5.7 x10 Invalid Interpretation Code [facility] Comment on above: Performed By: #### 1 0727919, 37395386, 4815363, 6167378862, 46089785, 4668649, 0688740925, 1223781956, 2510607599, 2070168 #### [facility] (DEFAULT) [address] [place] [address] 48358 Man Diff? Auto Normal [facility] Comment on above: Performed By: #### 1 8080902, 59640812, 9094106, 7403390097, 66622829, 1535379, 2132091758, 3595618000, 6907662751, 0826792 #### [facility] (DEFAULT) [address] [place] [address] 73118 MCH (RBC) [Entitic mass] 28 pg Normal 24-34 [facility] Comment on above: Performed By: #### 1 4576009, 88623882, 6890302, 2776230405, 38821118, 1816561, 2277982641, 2411539929, 6923994497, 2611484 #### [facility] (DEFAULT) [address] [place] [address] 09343 MCHC (RBC) [Mass/Vol] 32 g/dL Normal 26-37 [facility] Comment on above: Performed By: #### 1 7863828, 24792940, 2289540, 8038223720, 97317628, 8820131, 2916009265, 7236780754, 8456081226, 5658169 #### [facility] (DEFAULT) [address] [place] [address] 80965 MCV (RBC) [Entitic vol] 86 fL Normal 81-100 [facility] Comment on above: Performed By: #### 1 8224495, 84396289, 7655353, 5659385331, 20665132, 6856948, 8417847927, 6430122324, 7004374997, 5117417 #### [facility] (DEFAULT) [address] [place] [address] 15709 Platelet 324 x10 Normal 138-427 [facility] Comment on above: Performed By: #### 1 7744510, 95570878, 3134121, 8907421384, 49923643, 8560198, 6710210195, 3761337041, 2962669785, 5161078 #### [facility] (DEFAULT) [address] [place] [address] 12798 Platelet mean volume (Bld) [Entitic vol] 9.8 fL Normal 6.3-10.2 [facility] Comment on above: Performed By: #### 1 0451436, 80362337, 6292319, 7919707014, 57916860, 3817765, 7102198086, 1860818884, 3178095825, 8085106 #### [facility] (DEFAULT) [address] [place] [address] 35857 RBC 5.07 x10 Normal 3.70-5.30 [facility] Comment on above: Performed By: #### 1 6813978, 49259533, 9869306, 2738156415, 36741020, 5569791, 0693399831, 0362789980, 3870312055, 1816279 #### [facility] (DEFAULT) [address] [place] [address] 50584 WBC 5.7 x10 Normal 3.5-10.5 [facility] Comment on above: Performed By: #### 1 5193784, 07493794, 2912118, 0524051528, 60361810, 2672385, 8685729395, 6193517365, 8965358314, 4580877 #### [facility] (DEFAULT) [address] [place] [address] 74972 CMP Standardon 03-09-2022 eGFR Non AA >60 Invalid Interpretation Code [facility] Comment on above: Performed By: #### 1 0341216, 04548265, 7949368, 3923332312, 57873260, 1931775, 1996921219, 7766632607, 2627022870, 6437709 #### [facility] (DEFAULT) [address] [place] [address] 09776 eGFR AA >60 Invalid Interpretation Code [facility] Comment on above: Result Comment: Dividend Clerk susie Kidney disease could be indicated at eGFRs of less than 60 ml/min/1.73m2. Kidney Failure is indicated at less than 15 ml/min/1.73m2 Performed By: #### 1 0201694, 89968745, 3341597, 9961804251, 06250939, 4531123, 0525673833, 9229846789, 2817997121, 0228262 #### [facility] (DEFAULT) [address] [place] [address] 52236 Albumin [Mass/Vol] 4.5 g/dL Normal 3.5-5.0 [facility] Comment on above: Performed By: #### 1 3758353, 62751409, 3157695, 2354303219, 32811949, 3630160, 7758772832, 6224475974, 2412131340, 7963589 #### [facility] (DEFAULT) [address] [place] [address] 19534 Albumin/Globulin [Mass ratio] 1.2 {ratio} Low 1.4-2.6 [facility] Comment on above: Performed By: #### 1 4346193, 00588066, 8067740, 3049031386, 38416256, 8028181, 1064149652, 3664764644, 9330486683, 2198986 #### [facility] (DEFAULT) [address] [place] [address] 25213 Alk Phos 52 IU/L Normal 32-91 [facility] Comment on above: Performed By: #### 1 6159093, 76178574, 9597414, 8656392929, 04556989, 8623995, 5288081579, 9001035956, 3317197052, 6238759 #### [facility] (DEFAULT) [address] [place] [address] 66239 ALT [Catalytic activity/Vol] 37.0 U/L Normal 14.0-54.0 [facility] Comment on above: Performed By: #### 1 3521560, 54752463, 7262244, 3802897846, 31745147, 4397652, 0258998347, 9537925436, 3768196533, 1432771 #### [facility] (DEFAULT) [address] [place] [address] 57111 Anion gap [Moles/Vol] 18.0 mmol/L Normal 5.0-19.0 [facility] Comment on above: Performed By: #### 1 1426426, 51302967, 4070358, 1477312310, 02044108, 0082744, 1346923180, 3914971603, 6447051512, 9262923 #### [facility] (DEFAULT) [address] [place] [address] 63393 AST [Catalytic activity/Vol] 29 U/L Normal 15-41 [facility] Comment on above: Performed By: #### 1 2250891, 20625890, 6295122, 6363797928, 06063270, 7870873, 4467246249, 0340292975, 4681100520, 2414077 #### [facility] (DEFAULT) [address] [place] [address] 90067 Bili Total 0.7 mg/dL Normal 0.3-1.2 [facility] Comment on above: Performed By: #### 1 4601259, 77601964, 9632823, 6412618803, 95139531, 4396973, 0678039484, 9522803913, 7392945092, 7046527 #### [facility] (DEFAULT) [address] [place] [address] 44779 Calcium [Mass/Vol] 9.4 mg/dL Normal 8.9-10.3 [facility] Comment on above: Performed By: #### 1 5349506, 50911537, 5788258, 6493714590, 14077976, 3708719, 7747345304, 5051313683, 8970876342, 6154894 #### [facility] (DEFAULT) [address] [place] [address] 16680 Chloride [Moles/Vol] 100 mmol/L Low 101-111 [facility] Comment on above: Performed By: #### 1 2559082, 56967702, 0703128, 4355096264, 80487133, 3167751, 2093484232, 2911724627, 3615537866, 5673535 #### [facility] (DEFAULT) [address] [place] [address] 26801 CO2 [Moles/Vol] 24 mmol/L Normal 21-32 [facility] Comment on above: Performed By: #### 1 7954138, 68825196, 1871188, 0795021570, 46795373, 5934159, 9210904373, 3983297500, 4132698641, 5115822 #### [facility] (DEFAULT) [address] [place] [address] 46267 Creatinine [Mass/Vol] 0.75 mg/dL Normal 0.60-1.30 [facility] Comment on above: Performed By: #### 1 1737664, 31019549, 5188889, 1262925255, 45167880, 3578753, 7080384058, 7129426984, 7393579645, 4936429 #### [facility] (DEFAULT) [address] [place] [address] 03163 Globulin (S) [Mass/Vol] 3.9 g/dL Normal 1.5-4.3 [facility] Comment on above: Performed By: #### 1 5675114, 44139142, 9356327, 2411718512, 33353681, 9836211, 4259254509, 3168264315, 9571691014, 7986266 #### [facility] (DEFAULT) [address] [place] [address] 29986 Glucose [Mass/Vol] 98.0 mg/dL Normal 74.0-118.0 [facility] Comment on above: Performed By: #### 1 2816021, 20631135, 6223291, 3892682725, 15397855, 1379107, 4997263306, 5444091617, 9022782392, 0290203 #### [facility] (DEFAULT) [address] [place] [address] 87745 Osmolality 274 mOsm/L Invalid Interpretation Code [facility] Comment on above: Performed By: #### 1 2593432, 56491476, 5259050, 3051371945, 85709549, 2960066, 0219384525, 9905227995, 0605979788, 1033449 #### [facility] (DEFAULT) [address] [place] [address] 91021 Potassium [Moles/Vol] 3.5 mmol/L Low 3.6-5.1 [facility] Comment on above: Performed By: #### 1 2951880, 33272650, 8624605, 3821298017, 19619207, 4382660, 3233101820, 0625880140, 3854554922, 6348302 #### [facility] (DEFAULT) [address] [place] [address] 29431 Protein [Mass/Vol] 8.4 g/dL High 6.5-8.1 [facility] Comment on above: Performed By: #### 1 1674907, 50831816, 4122328, 9421005576, 65242194, 9711756, 0214342879, 3333508728, 5691652161, 5873003 #### [facility] (DEFAULT) [address] [place] [address] 93586 Sodium [Moles/Vol] 138.0 mmol/L Normal 136.0-144.0 [facility] Comment on above: Performed By: #### 1 4790867, 40305089, 1037494, 4745151429, 93553927, 3758472, 4544092083, 1496503182, 4806561383, 6485911 #### [facility] (DEFAULT) [address] [place] [address] 02637 Urea nitrogen [Mass/Vol] 7 mg/dL Low 8-26 [facility] Comment on above: Performed By: #### 1 6318722, 84782195, 4739612, 6719252224, 86779699, 0858427, 4687305521, 7141045824, 0230179449, 8077023 #### [facility] (DEFAULT) [address] [place] [address] Urea nitrogen/Creatinine [Mass ratio] 9.0 mg/mg Normal 4.6-16.2 [facility] Comment on above: Performed By: #### 1 5266205, 02529348, 5769841, 6609867801, 83002861, 6829751, 2793239379, 2385951636, 5658437903, 9616437 #### [facility] (DEFAULT) [address] [place] [address] 22131 ED Clinical Summaryon 2021 ED Clinical Summary [facility] - Emergency Department [address] [place] [address] 95770 ED Clinical Summary PERSON INFORMATION Name: DIANE JOYCE Age: 26 Years Sex: FEMALE : 1995 MRN: Acct#: Visit Reason: Vaginal bleeding - < 20 wks ; BLEEDING, Arrival: 03/09/2022 15:56:59 Discharge: 03/09/2022 18:28:00 LOS: 000 02:32 Check In: 03/09/2022 15:56:59 Checkout:03/09/2022 18:28:00 Address: [address] [place] [address] PCP: Provider, None PROVIDER INFORMATION Provider Role [...] or bladder. States that she follows with central office associate in [place], contacted his office and they [...] intact, SARINA: -Sclera conjunctiva: Unremarkable. NECK: -Supple (qcbb-af-ewddl): non-tender. CARD: -Rate and rhythm: Regular -Edema: [...] the patient recommended close follow-up with her central office associate and outpatient beta hCG. In the meantime no strenuous ac (more content not included)... Normal [facility] ED Note - Physicianon 2021 ED [...] or bladder. States that she follows with central office associate in [place], contacted his office and they [...] intact, SARINA: -Sclera conjunctiva: Unremarkable. NECK: -Supple (gacr-wk-puomh): non-tender. CARD: -Rate and rhythm: Regular -Edema: [...] the patient recommended close follow-up with her central office associate and outpatient beta hCG. In the meantime no strenuous activity, sexual activity if having any worsening issues I recommended he return to the emergency department or going directly to central office associate. Patient indicated she understood was in [...] AA >60 (more content not included)... Normal [facility] ED Note-Nursingon 03-09-2022 Beta HCG ( test) Ql (U) Patient arrives with c/o vaginal bleeding during . States she took a at home test a week ago and estimates being 5 to 6 weeks along. Patient has some mild cramping yesterday / at has since went away and light vaginal bleeding today. This is the patients second , 1 live . Normal [facility] ED Patient Summaryon 022 ED Patient Summary [facility] - Emergency Department [address] [place], [place] [id number] PATIENT DISCHARGE INSTRUCTIONS Patient Information Name: DIANE JOYCE Age: 26 Years Date of : 1995 [facility]: [id number] Reason For Visit: Vaginal bleeding - < 20 wks ; BLEEDING, Arrival Time: 03/09/2022 15:56:59 Primary Care Physician: Provider, None Attending Physician: Adiran Rosales MD Comment: Visit Diagnosis: Diagnoses This Visit Elevated blood pressure reading (R03.0) First trimester (Z34.91) Threatened miscarriage in early (O20.0) Vaginal bleeding (N93.9) Vaginal bleeding - < 20 wks ([id number]) Prescription Information: If you have been given a prescription for narcotics, seek immediate medical attention if you have any difficulty breathing or any sudden status changes such as confusion and sleepiness. If you or anyone you know is experiencing suicidal thoughts, mental health, alcohol and/or drug addiction problems; contact the [facility] 21/05 Crisis Hotline -Text [phone] dd [phone]. If you received any narcotics, sedation, or [...] documents With: Address: When: Follow-up with your central office associate for reevaluation next few days. Within 1 to 2 days Comments: Follow-up with central office associate for reevaluation next few days for reevaluation and outpatient quantitative hCG. Return immediately for any worsening issues such as increasing abdominal pains, increasing vaginal bleeding, fevers, or any other problems. With: Address: When: Stephanie Padilla Within 3 to 5 days Comments: Assistant Principal Medication Information: The exam and treatment you received today in the [facility] Emergency Department were for an urgent problem and are not intended as complete care. It is important for you to follow up with a doctor, nurse practitioner, or physician?s clothing sales assistant for ongoing care. If your [...] so we can reach you if necessary. [facility] Emergency Department has provided you with a complete list of medications post discharge. Please inform your primary teaching assistant/provider of your visit and for further instruction [...] The sec (more content not included)... Normal [facility] Extra Greenon 03-09-2022 Tube Collected Yes Invalid Interpretation Code [facility] Comment on above: Performed By: #### 1 7775288, 22738818, 7065437, 2431418679, 88147599, 6437857, 3234837685, 5256480970, 5737488901, 4941560 #### [facility] (DEFAULT) [address] [place] [address] 86315 PT/PTTon 03-09-2022 INR Coag (PPP) [Relative time] 0.95 {INR} Normal 0.91-1.11 [facility] Comment on above: Performed By: #### 1 9415603, 91611346, 1190695, 2457627346, 37799014, 3640924, 1074078683, 0522664646, 8750972523, 4620971 #### [facility] (DEFAULT) [address] [place] [address] 19575 PT 10.3 second(s) Normal 9.7-11.8 [facility] Comment on above: Performed By: #### 1 0055523, 14017206, 1131199, 3807315281, 26605582, 2393324, 5807916726, 9789943346, 0296910184, 9470208 #### [facility] (DEFAULT) [address] [place] [address] 38391 PTT 34 second(s) Normal 25-35 [facility] Comment on above: Performed By: #### 1 3220678, 93319442, 9175984, 1423298208, 95296561, 3112190, 1664143018, 6923272601, 7233316113, 5381211 #### [facility] (DEFAULT) [address] [place] [address] 12279 RhIG.on 03-09-2022 RhIG. No. Vials RhI RhIG Candidate?: No Date to Give: [id number] RhIG Status: RhIG Ready Normal [facility] Comment on above: Performed By: #### 1 6185718, 42556650, 8081674, 9690827436, 00031148, 9573761, 8323493185, 7756249583, 3838965461, 7729751 ####[facility] (DEFAULT)[address] [place] [address] UA Omgtd5pa 03-09-2022 UA Amorph. 1+ [facility] Comment on above: Order Comment: Urina lysis Microscopic order added on by Discern Expert Rules system. Performed By: #### 5 9863589, 2441214, [id number] ####[facility] (DEFAULT)[address] [place] [address] UA Bacteria 2+ [facility] Comment on above: Order Comment: Urina lysis Microscopic order added on by Discern Expert Rules system. Performed By: #### 5 6182847, 5955862, [id number] ####[facility] (DEFAULT)[address] [place] [address] UA Mucous 3+ [facility] Comment on above: Order Comment: Urina lysis Microscopic order added on by Discern Expert Rules system. Performed By: #### 5 7277084, 5821141, [id number] ####[facility] (DEFAULT)[address] [place] [address] UA RBC >100 [facility] Comment on above: Order Comment: Urina lysis Microscopic order added on by Discern Expert Rules system. Performed By: #### 5 4459149, 4127618, [id number] ####[facility] (DEFAULT)[address] [place] [address] UA Squam Epi Many [facility] Comment on above: Order Comment: Urina lysis Microscopic order added on by Discern Expert Rules system. Result Comment: DMITRY WERNER RN IN ER. RUN UNINALYSIS AND CULTURE ON THIS SPECIMEN. NO RECOLLECT. Performed By: #### 5 6486896, 5161087, [id number] ####[facility] (DEFAULT)[address] [place] [address] UA WBC 3-5 [facility] Comment on above: Order Comment: Urina lysis Microscopic order added on by Discern Expert Rules system. Performed By: #### 5 5123533, 7980001, [id number] ####[facility] (DEFAULT)[address] [place] [address] UA w Culture if Ind Standard on 03-09-2022 Breakpoint UA Normal [facility] Comment on above: Performed By: #### 1 9557006, 71315246, 0425388, 4876614834, 67225154, 4088700, 9951404815, 0780288553, 2613817953, 2422371 #### [facility] (DEFAULT) [address] [place] [address] 31100 Color (U) Yellow Normal [facility] Comment on above: Performed By: #### 1 6055889, 12643436, 9531066, 3169681959, 74295564, 4955005, 7789276838, 9030790675, 0944589445, 4478425 #### [facility] (DEFAULT) [address] [place] [address] Culture? Indicated Invalid Interpretation Code [facility] Comment on above: Result Comment: Resu lt created by rule GL_MAGR_ADD_UA_CULT Result created by rule GL_MAGR_ADD_UA_CULT Result created by rule GL_MAGR_ADD_UA_CULT1 Result created by rule GL_MAGR_ADD_UA_CULT Performed By: #### 1 [id number], [id number], 9097879, [id number], [id number], [id number], [id number], [id number], [id number], [id number] #### [facility] (DEFAULT) [address] [place] [id number] Glucose (U) [Mass/Vol] Negative Normal [facility] Comment on above: Performed By: #### 1 [id number], [id number], 7424889, [id number], [id number], 3307703, [id number], [id number], [id number], [id number] #### [facility] (DEFAULT) [address] [place] [address] 10910 Ketones Ql (U) 40 Normal [facility] Comment on above: Performed By: #### 1 [id number], 14455410, 4348645, [id number], [id number], [id number], [id number], [id number], [id number], [id number] #### [facility] (DEFAULT) [address] [place] [address] Micro? Indicated Invalid Interpretation Code [facility] Comment on above: Result Comment: Resu lt created by rule GL_MAGR_ADD_UA_MICRO Performed By: #### 1 [id number], [id number], 3813216, [id number], 16043016, 9479375, 3334692059, [id number], [id number], 9413711 #### [facility] (DEFAULT) [address] [place] [address]35 UA Bilirubin Negative Normal [facility] Comment on above: Performed By: #### 1 [id number], 42844561, 9088024, [id number], 52419339, 8042938, 6509924326, 3138224224, [id number], 9225491 #### [facility] (DEFAULT) [address] [place] [address] 54163 UA Blood LARGE Abnormal NEGATIVE [facility] Comment on above: Performed By: #### 1 [id number], 00551040, 2603062, [id number], 14579671, 9983631, 0608670354, [id number], [id number], 1478472 #### [facility] (DEFAULT) [address] [place] [address]241 UA Clarity SL CLOUDY Abnormal CLEAR [facility] Comment on above: Performed By: #### 1 [id number], 30778373, 8032283, 0004155742, 75782551, 4406988, 0747652364, 0855032846, [id number], 7921113 #### [facility] (DEFAULT) [address] [place] [address] 49564 UA Leuk Est TRACE Abnormal NEGATIVE [facility] Comment on above: Performed By: #### 1 [id number], 55126193, 2747800, [id number], 96761871, 8050138, 6311993619, 9270726976, 6165623153, 3557572 #### [facility] (DEFAULT) [address] [place] [address]9410 UA Nitrite Negative Normal NEGATIVE [facility] Comment on above: Performed By: #### 1 [id number], 33878718, 6510421, 5518517906, 44520551, 6232156, 3993212756, 0603611147, 0287489966, 6445580 #### [facility] (DEFAULT) [address] [place] [address] 09202 UA pH 6.5 Normal 5-8 [facility] Comment on above: Performed By: #### 1 5549039, 19948266, 4144152, 9499648802, 10745844, 8945877, 1429973530, 6506555830, 2340318814, 3929285 #### [facility] (DEFAULT) [address] [place] [address] 38279 UA Protein Negative Normal NEGATIVE [facility] Comment on above: Performed By: #### 1 9687729, 42508256, 3412717, 5039732613, 33312007, 7223937, 5644173363, 5843523205, 2923338387, 7449364 #### [facility] (DEFAULT) [address] [place] [address] 31413 UA Spec Grav 1.015 Normal 1.001-1.035 [facility] Comment on above: Performed By: #### 1 [id number], 08342563, 5852870, [id number], 32483215, 0192821, 6479450867, 2214874448, 4105624873, 1814421 #### [facility] (DEFAULT) [address] [place] [address] UA Urobilinogen 0.2 mg/dL Normal 0.2-1.0 [facility] Comment on above: Performed By: #### 1 [id number], 87666325, 5175946, 5527122533, 16718188, 6969325, 4197150241, 7162071421, 1700701496, 7775993 #### [facility] (DEFAULT) [address] [place] [address] Urine Source Clean Catch [facility] Comment on above: Performed By: #### 1 9421121, 24539746, 1866082, 4101383424, 13152475, 6641150, 4939280933, 6587629634, 1359906732, 6768193 #### [facility] (DEFAULT) [address] [place] [address] US 1st Trimesteron 03-09-2022 US 1st Trimester [...] Sebastian Guzman 03/09/22 6:10 pm Technologist: PM [facility] US Transvaginalon 03-09-2022 US Transvaginal EXAM: [...] Guzman 03/09/22 6:10 pm Technologist: PM Normal [facility] hCG Quantitativeon hCG Quantitative 7.1 mIU/mL High 0.0-0.6 [facility] Comment on above: Result Comment: Post -Menopausal Reference Range is: 0.1-11.6 mIU/mL Performed By: #### 1 4260022, 46386470, 7620579, 7854009719, 25042869, 2566625, 6564206026, 2401240422, 8027944355, 1037934 #### [facility] (DEFAULT) [address] [place] [address] Vital Signs Date Time Vital Sign Value Performing Clinician Facility 12-13-2023 15:00-0500 Body mass index (BMI) [Ratio] 46.69 kg/m2 [facility] Nurse [facility] 12-13-2023 15:00-0500 Body weight 123.38 kg [facility] 12-13-2023 15:00-0500 Diastolic blood pressure 78 mm[Hg] [facility] 12-13-2023 15:00-0500 Systolic blood pressure 128 mm[Hg] [facility] 05-15-2023 18:30-0400 Body height 161.29 cm Linsey Witt Other [facility] Other 05-15-2023 18:30-0400 Body mass index (BMI) [Ratio] 43.41 kg/m2 Linsey Eduar Other [facility] Other 05-15-2023 18:30-0400 Body temperature 99.2 [degF] Linsey Witt Other [facility] Other 05-15-2023 18:30-0400 Body weight 112.95 kg Linsey Eduar Other [facility] Other 05-15-2023 18:30-0400 Respiratory rate 18 /min Linsey Witt Other [facility] Other 05-15-2023 18:30-0400 SaO2% (BldA) [Mass fraction] 99 % Linsey Witt Other [facility] Other 05-09-2023 11:00-0400 Body height 161.29 cm Gissel Santana Other [facility] Other 05-09-2023 11:00-0400 Body mass index (BMI) [Ratio] 43.59 kg/m2 Gissel Santana Other [facility] Other 05-09-2023 11:00-0400 Body weight 113.4 kg Gissel Santana Other [facility] Other 05-09-2023 11:00-0400 Diastolic blood pressure 83 mm[Hg] Gissel Santana Other [facility] Other 05-09-2023 11:00-0400 Systolic blood pressure 119 mm[Hg] Gissel Santana Other [facility] Other 04-12-2023 09:00-0400 Body height 161.29 cm Gissel Santana Other [facility] Other 04-12-2023 09:00-0400 Body mass index (BMI) [Ratio] 43.59 kg/m2 Gissel Santana Other [facility] Other 04-12-2023 09:00-0400 Body weight 113.4 kg Gissel Santana Other [facility] Other 04-12-2023 09:00-0400 Diastolic blood pressure 88 mm[Hg] Gissel Santana Other [facility] Other 04-12-2023 09:00-0400 Systolic blood pressure 129 mm[Hg] Gissel Santana Other [facility] Other 10-11-2022 02:06-0500 Body weight 111.[address] ESTELLA MIN . [facility] Comment on above: Performed By: #### AFPMAT #### [facility] [address] [place] [address] Dr. Alexsander Dickinson Encounters Encounter Date Encounter [...] 11-06-2023 End: 11-06-2023 ambulatory Gissel Santana Other [facility] Other Start: 11-06-2023 Encounter by donald Santana [place] Start: 05-22-2023 End: 05-22-2023 ambulatory Olive Howard Other [facility] Other Start: 05-22-2023 Telephone encounter Olive Howard [facility] Start: 05-15-2023 End: 05-15-2023 ambulatory Linsey Witt Facility:[facility] Start: 05-15-2023 End: 05-15-2023 Departed Referred TERESA Witt Work Phone: [facility] [place] Work Phone: Start: 05-15-2023 End: 05-15-2023 ambulatory TERESA Witt Work Phone: [facility] Work Phone: Start: 05-15-2023 Office outpatient vi sit 25 minutes Linsey Witt [facility] Start: 05-09-2023 End: 05-09-2023 ambulatory Gissel Santana Other [employer] Other Start: 05-09-2023 Office outpatient vi sit 15 minutes Gissel Santana [place] Start: 04-12-2023 End: 04-12-2023 ambulatory Gissel Santana Other [facility] Other Start: 04-12-2023 Encounter for genera l adult medical examination without abnormal findings Gissel Santana [place] Start: 04-12-2023 Periodic preventive med est patient 18-39 yrs Gissel Santana [place] Start: 02-15-[address] ESTELLA MIN . [...] EDT Routine [facility] [address] [place] [address] Estella Min, [address] [address] [facility] Start: 12-13-2023 End: 12-13-2024 ABO/Rh ABO/Rh Lab Routine Missed menses Expected: 12/13/2023 (Approximate), Expires: 12/13/2024 [facility] Comment on above: Expected: 12/13/2023 (Approximate), [...] Missed menses Expected: 12/13/2023 (Approximate), Expires: 12/13/2024 [facility] Comment on above: Expected: 12/13/2023 (Approximate), Expires: 12/13/2024 Start: 12-13-2023 End: 12-13-2024 US Pelvis transvaginal US OB transvaginal Imaging Routine Missed menses Expected: 12/13/2023 (Approximate), Expires: 12/13/2024 [facility] Comment on above: Expected: 12/13/2023 (Approximate), Expires: 12/13/2024 Start: 05-15-2023 Throat culture Throat Culture [facility] Bacteria identified in Urine by Culture Urine culture Microbiology Routine Missed menses Ordered: 12/13/2023 [facility] Comment on above: Ordered: 12/13/2023 CBC W Auto Different ial panel - Blood CBC and differential Lab Routine Missed menses Ordered: 12/13/2023 [facility] Comment on above: Ordered: 12/13/2023 Hemoglobin [...] [facility] Comment on above: Ordered: 12/13/2023 Payers Date Payer Category Payer Unknown BCBS BCBS xxxxxx [id number] 2020-Present [phone] [address] [place] [address] [id number]. [id number] 1994 Unknown [id number] 2.16.840.1.353316.3.579.2.593 1994 Unknown [id number] 2.16.840.1.956857.3.579.2.593 1994 Unknown [id number] 2.16.840.1.857040.3.579.2.593 1994 Unknown [id number] 2.16.840.1.956487.3.579.2.593 1994 Unknown [id number] 2.16.840.1.293719.3.579.2.593 1994 Unknown [id number] 2.16.840.1.293948.3.579.2.593 1994 Unknown [id number] 2.16.840.1.005148.3.579.2.593 1994 Unknown [id number] 2.16.840.1.445143.3.579.2.593 1994 Unknown [id number] 2.16.840.1.293584.3.579.2.593 1994 Unknown [id number] 2.16.840.1.815272.3.579.2.593 1994 Unknown [id number] 2.16.840.1.351990.3.579.2.593 1994 Unknown [id number] 2.16.840.1.788184.3.579.2.593 1994 Unknown [id number] 2.16.840.1.326811.3.579.2.593 1994 Unknown [id number] 2.16.840.1.746490.3.579.2.593 1994 Unknown [id number] 2.16.840.1.837875.3.579.2.593 1994 Unknown [id number] 2.16.840.1.713497.3.579.2.593 1994 Unknown [id number] 2.16.840.1.813626.3.579.2.593 1994 Unknown [id number] 2.16.840.1.491405.3.579.2.593 1994 Unknown [id number] 2.16.840.1.901231.3.579.2.593 1994 Unknown [id number] 2.16.840.1.612352.3.579.2.593 1994 Unknown [id number] 2.16.840.1.768581.3.579.2.593 1994 Unknown [id number] 2.16.840.1.131036.3.579.2.593 1994 Unknown [id number] 2.16.840.1.461582.3.579.2.593 1994 Unknown [id number] 2.16.840.1.253668.3.579.2.593 1994 Unknown [id number] 2.16.840.1.437865.3.579.2.1259 1994 Unknown [id number] 2.16.840.1.641854.3.579.2.1259 1994 Unknown [id number] 2.16.840.1.042886.3.579.2.1259 1994 Unknown [id number] 2.16.840.1.361307.3.579.2.1259 1994 Unknown [id number] 2.16.840.1.162506.3.579.2.1259 1994 Unknown [id number] 2.16.840.1.203067.3.579.2.1259 1994 Unknown [id number] 2.16.840.1.613314.3.579.2.1259 1994 Unknown [id number] 2.16.840.1.668329.3.579.2.1259 1959 Self-pay 1959 Unknown [id number] Unknown [id number] 2.16.840.1.843836.3.579.2.593 Unknown [id number] 2.16.840.1.867936.3.579.2.531 Social History Date Type Detail Facility Unknown if ever smoked [facility] [employer] Other Start: 03-12-2023 Sex Assigned At [facility] [employer] Other Start: 1995 Sex Assigned At Female F [facility] Start: 03-12-2023 Tobacco smoking status NHIS [...] or undercooked meat, and [facility]. Patient has also been advised to [...] understanding and is agreeable to treatment plan. [facility] [facility] Other 07-12-2023 Evaluation note* Encounter Date Diagnosis Assessment Notes Treatment Notes Treatment Clinical Notes Apr, Anxiety disorder, unspecified (ICD-10 - F41.9) Pt states that she, and her , agree that she is doing better on the medication. Continues to have stress, but is dealing more appropriately. Would like to continue this med and this dose. f/u6 months, sooner if needed. [facility] Other 06-15-2023 Evaluation note* Encounter Date Diagnosis [...] help for overwhelm. followup in 1 month [employer] [facility] Other 05-12-2022 NoteEducation Materials Cardiovascular Hypertension, Adult [...] without skin, beans, e (more content not included)...[facility] noteNo assessment information available[facility] Work Phone: Evaluation noteNo InformationNortHaven [facility] [employer] Other Evaluation note* Diagnosis Missed menses documented in this encounter [facility] N[facility] - Reported* Type Description Date Surgical History C-sect 2019 Surgical History C-sect 2022 [employer] [facility] Other History general Narrative - Reported* Type Description Date Medical History Anxiety disorder, unspecified Surgical History C-sect 2019 Surgical History C-sect 2022 Hospitalization History SEE SURGICAL [facility] Other History general Narrative - Reported* Type Description Date Medical History Anxiety disorder, unspecified Medical History Gestational diabetes Surgical History C-sect 2019 Surgical History C-sect 2022 Hospitalization History SEE SURGICAL [facility] Other Summary Purpose Family History No Family History Records FoundNo Family History Records FoundNo Family History Records FoundNo Family History Records Found Advance Directives No Advanced Directives Records FoundNo Advanced Directives Records FoundNo Advanced Directives Records FoundNo Advanced Directives Records Found Additional Source Comments INFORMATION SOURCE (unrecogn ized section and content) DATE CREATED AUTHOR 03/18/2022 [facility] DATE CREATED AUTHOR AUTHOR'S ORGANIZ ATION 02/15/2023 [facility] DATE CREATED AUTHOR AUTHOR'S ORGANIZ ATION 05/24/2023 [facility] DATE CREATED AUTHOR AUTHOR'S ORGANIZ ATION 06/07/2024 [facility] EPIC REASON FOR VISIT (unrecogniz ed section and content) Reason Comments Amenorrhea Care Teams (unrecognized sec tion and content) Team Status: Inactive Member Role Status Dates Linsey Witt APRN Attending Provider Active Demographer Relationship Specialty Start Date End Date Gissel Santana MD [address] [place] [address] PCP - General Family Medicine [...] BE BASED ON THE PRIMARY CLINICAL RECORDS. [employer] [facility]. provides no warranty or guarantee of the accuracy or completeness of information in this document.
== END 2024-06-19 18:48 | disposition home or self-care (01) ==
LOC: LAB 18:47
PROVIDERS: Visit Provider Obstetrics & Gynecology
DX: Z34.93 Encounter for supervision of normal pregnancy, unspecified, third trimester (principal)
CPT/HCPCS: 36415; 87081; 87150

== ENCOUNTER 2024-06-21 06:39 | Outpatient (OUT) | payer BC, SELFPAY ==
--- OUTSIDE RECORDS SUMMARY | 2024-06-21 06:42 | XMS_ITS | CCD ---
Author Organization [facility] Care Team Providers Care Cigarette Tester Name Role Phone MECHELLE ., DR SORIA [...] Unavailable MECHELLE ., DR SORIA Admitting Unavailable SANATNA, DR GISSEL Teresa Primary Care [...] Unavailable MECHELLE ., DR SORIA Admitting Unavailable Duncan, Sebastian Consulting Unavailable SANTANA, DR GISSEL Teresa Primary Care Unavailable MECHELLE ., DR SORIA Consulting Unavailable SANTANA, DR GISSEL Teresa Primary Care Unavailable MECHELLE ., DR SORIA Admitting Unavailable MECHELLE ., DR SORIA Attending Unavailable Gissel Santana Unavailable TERESA Witt Attending Provider [phone] Olive Howard Unavailable Linsey Witt Attending Unavailable Linsey Witt Admitting Unavailable NO FAMILY, PHYSICIAN Primary Care Unavailable Linsey Witt Unavailable Gissel Santana MD Primary Care Provider [phone] ESTELLA MIN Attending Unavailable ESTELLA MIN Attending [...] Interpretation and review of laboratory results Abnormal [facility] Healthca re Preg Test, Ur Positive [facility] Health[facility] Urinalysis macro (dipstick) panel (U)on 12-13-2023 Bilirubin, UA Negative Negative - 4(70) +++ mg/dL [facility] Blood, UA Negative Negative - 50 Sal/mcL [facility] Clarity, UA Clear [facility] Healthva re Color, UA Yellow [facility] Healthcar e Glucose, UA Negative Negative - 1999(110) ++++ mg/dL [facility] Interpretation and review of laboratory results Abnormal [facility] re Ketones, UA Positive Negative - 160(16) ++++ mg/dL [facility] Leukocytes, UA Negative Negative - 500+++ Lizzy/mcL [facility] Nitrite, UA Negative Negative - Positive [facility] pH, UA 7.0 5 - 9 [facility] Healthcar e Protein, UA Positive Negative - 1999(20) ++++ mg/dL [facility] Spec Grav, UA 1.030 1 - 1.03 [facility] Urobilinogen, UA 0.2 0.2 - 12 mg/dL [facility] Quick Strepon 05-15-2023 S. pyogenes Org specific cx Ql (Throat) Negative Watsin Other Quick Strep Watsin Other Throat Cultureon 05-15-2023 Throat culture Heavy Normal Respiratory John 2 Days PERFORMED BY: [place] [address] [place] [address] PATHOLOGIST [place] LETTER CARRIER ARACELI HAYWOOD M.D. Normal [facility] Comment on above: Performed By: #### C UT #### [facility] [address] GROUP B STREP CULTUREon 01-27 S. [...] S F Tetracycline <=0.25 S F Normal [facility] Comment on above: Performed By: #### A FPMAT #### [facility] [address] [place] [address] Dr. Alexsander Dickinson CBC AUTO DIFFon 02-02-2023 BASO # 0.0 103/ul Normal 0.0-0.1 [facility] Comment on above: Performed By: #### C BC #### [facility] [address] [place] [address] Dr. Alexsander Dickinson Basophils/100 WBC (Bld) 0.2 % Normal 0.2-2.0 [facility] Comment on above: Performed By: #### C BC #### [facility] [address] [place] [address] Dr. Alexsander Dickinson EO # 0.0 103/ul Normal 0.0-0.7 [facility] Comment on above: Performed By: #### C BC #### [facility] [address] [place] [address] Dr. Alexsander Dickinson Eosinophils/100 WBC (Bld) 0.0 % Critically low 0.9-7.0 [facility] Comment on above: Performed By: #### C BC #### [facility] [address] [place] [address] Dr. Alexsander Dickinson Erythrocyte distribution width (RBC) [Ratio] 12.5 % Normal 11.0-15.0 [facility] Comment on above: Performed By: #### C BC #### [facility] [address] [address] [address] Alexsander Dickinson Hematocrit (Bld) [Volume fraction] 32.9 % Critically low 36.0-48.0 [facility] Comment on above: Performed By: #### C BC #### [facility] [address] [address] [address] Alexsander Dickinson Hemoglobin (Bld) [Mass/Vol] 10.7 g/dL Critically low 12.0-16.0 [facility] Comment on above: Performed By: #### C BC #### [facility] [address] [address] [address] Alexsander Dickinson IG # 0.12 10e3/ul Critically high 0.00-0.03 [facility] Comment on above: Performed By: #### C BC #### [facility] [address] [address] [address] Alexsander Dickinson IG % 0.7 % Critically high 0.0-0.5 [facility] Comment on above: Performed By: #### C BC #### [facility] [address] [address] [address] Alexsander Dickinson LYMPH # 1.1 103/ul Critically low 1.2-3.8 [facility] Comment on above: Performed By: #### C BC #### [facility] [address] [address] [address] Alexsander Dickinson Lymphocytes/100 WBC (Bld) 6.4 % Critically low 20.5-60.0 [facility] Comment on above: Performed By: #### C BC #### [facility] [address] [address] [address] Alexsander Dickinson MANUAL DIFF REQ NO Normal [facility] Comment on above: Performed By: #### C BC #### [facility] [address] [address] [address] Alexsander Dickinson MCH (RBC) [Entitic mass] 26.1 pg Critically low 26.7-34.0 [facility] Comment on above: Performed By: #### C BC #### [facility] [address] [address] [address] Alexsander Dickinson MCHC (RBC) [Mass/Vol] 32.5 g/dL Normal 29.9-35.2 [facility] Comment on above: Performed By: #### C BC #### [facility] [address] [address] [address] Alexsander Dickinson MCV (RBC) [Entitic vol] 80.2 fL Critically low 81.0-99.0 [facility] Comment on above: Performed By: #### C BC #### [facility] [address] [place] [address] Dr. Alexsander Dickinson MONO # 0.4 103/ul Normal 0.3-0.8 [facility] Comment on above: Performed By: #### C BC #### [facility] [address] [place] [address] Dr. Alexsander Dickinson Monocytes/100 WBC (Bld) 2.1 % Normal 1.7-12.0 [facility] Comment on above: Performed By: #### C BC #### [facility] [address] [place] [address] Dr. Alexsander Dickinson NEUT # 15.5 103/ul Critically high 1.4-6.5 [facility] Comment on above: Performed By: #### C BC #### [facility] [address] [place] [address] Dr. Alexsander Dickinson Neutrophils/100 WBC (Bld) 90.6 % Critically high 43.0-75.0 [facility] Comment on above: Performed By: #### C BC #### [facility] [address] [place] [address] Dr. Alexsander Dickinson Platelet mean volume (Bld) [Entitic vol] 10.7 fL Normal 9.5-13.5 [facility] Comment on above: Performed By: #### C BC #### [facility] [address] [place] [address] Dr. Alexsander Dickinson PLT 310 103/ul Normal 150-450 [facility] Comment on above: Performed By: #### C BC #### [facility] [address] [place] [address] Dr. Alexsander Dickinson RBC 4.10 106/ul Critically low 4.20-5.40 [facility] Comment on above: Performed By: #### C BC #### [facility] [address] [place] [address] Dr. Alexsander Dickinson WBC 17.1 103/ul Critically high 4.0-11.0 [facility] Comment on above: Performed By: #### C BC #### [facility] [address] [place] [address] Dr. Alexsander Dickinson CBC AUTO DIFFon 02-01-2023 BASO # 0.0 103/ul Normal 0.0-0.1 [facility] Comment on above: Performed By: #### A 1C #### [facility] [address] [place] [address] Dr. Alexsander Dickinson Basophils/100 WBC (Bld) 0.2 % Normal 0.2-2.0 [facility] Comment on above: Performed By: #### A 1C #### [facility] [address] [place] [address] Dr. Alexsander Dickinson EO # 0.0 103/ul Normal 0.0-0.7 [facility] Comment on above: Performed By: #### A 1C #### [facility] [address] [place] [address] Dr. Alexsander Dickinson Eosinophils/100 WBC (Bld) 0.4 % Critically low 0.9-7.0 [facility] Comment on above: Performed By: #### A 1C #### [facility] [address] [place] [address] Dr. Alexsander Dickinson Erythrocyte distribution width (RBC) [Ratio] 12.9 % Normal 11.0-15.0 [facility] Comment on above: Performed By: #### A 1C #### [facility] [address] [place] [address] Dr. Alexsander Dickinson Hematocrit (Bld) [Volume fraction] 34.2 % Critically low 36.0-48.0 [facility] Comment on above: Performed By: #### A 1C #### [facility] [address] [place] [address] Dr. Alexsander Dickinson Hemoglobin (Bld) [Mass/Vol] 11.4 g/dL Critically low 12.0-16.0 [facility] Comment on above: Performed By: #### A 1C #### [facility] [address] [place] [address] Dr. Alexsander Dickinson IG # 0.04 10e3/ul Critically high 0.00-0.03 [facility] Comment on above: Performed By: #### A 1C #### [facility] [address] [place] [address] Dr. Alexsander Dickinsno IG % 0.5 % Normal 0.0-0.5 [facility] Comment on above: Performed By: #### A 1C #### [facility] [address] [place] [address] Dr. Alexsander Dickinson LYMPH # 2.1 103/ul Normal 1.2-3.8 [facility] Comment on above: Performed By: #### A 1C #### [facility] [address] [place] [address] Dr. Alexsander Dickinson Lymphocytes/100 WBC (Bld) 23.9 % Normal 20.5-60.0 [facility] Comment on above: Performed By: #### A 1C #### [facility] [address] [place] [address] Dr. Alexsander Dickinson MANUAL DIFF REQ NO Normal [facility] Comment on above: Performed By: #### A 1C #### [facility] [address] [place] [address] Dr. Alexsander Dickinson MCH (RBC) [Entitic mass] 27.0 pg Normal 26.7-34.0 [facility] Comment on above: Performed By: #### A 1C #### [facility] [address] [place] [address] Dr. Alexsander Dickinson MCHC (RBC) [Mass/Vol] 33.3 g/dL Normal 29.9-35.2 [facility] Comment on above: Performed By: #### A 1C #### [facility] [address] [address] [address] Alexsander Dickinson MCV (RBC) [Entitic vol] 81.0 fL Normal 81.0-99.0 [facility] Comment on above: Performed By: #### A 1C #### [facility] [address] [address] [address] Alexsander Dickinson MONO # 0.5 103/ul Normal 0.3-0.8 [facility] Comment on above: Performed By: #### A 1C #### [facility] [address] [place] [address] Dr. Alexsander Dickinson Monocytes/100 WBC (Bld) 6.0 % Normal 1.7-12.0 [facility] Comment on above: Performed By: #### A 1C #### [facility] [address] [place] [address] Dr. Alexsander Dickinson NEUT # 5.9 103/ul Normal 1.4-6.5 [facility] Comment on above: Performed By: #### A 1C #### [facility] [address] [place] [address] Dr. Alexsander Dickinson Neutrophils/100 WBC (Bld) 69.0 % Normal 43.0-75.0 [facility] Comment on above: Performed By: #### A 1C #### [facility] [address] [place] [address] Dr. Alexsander Dickinson Platelet mean volume (Bld) [Entitic vol] 10.5 fL Normal 9.5-13.5 [facility] Comment on above: Performed By: #### A 1C #### [facility] [address] [place] [address] Dr. Alexsander Dickinson PLT 275 103/ul Normal 150-450 [facility] Comment on above: Performed By: #### A 1C #### [facility] [address] [place] [address] Dr. Alexsander Dickinson RBC 4.22 106/ul Normal 4.20-5.40 [facility] Comment on above: Performed By: #### A 1C #### [facility] [address] [place] [address] Dr. Alexsander Dickinson WBC 8.6 103/ul Normal 4.0-11.0 [facility] Comment on above: Performed By: #### A 1C #### [facility] [address] [place] [address] Dr. Alexsander Dickinson LDHon 02-01-2023 LDH 124 U/L Normal 81-234 [facility] Comment on above: Performed By: #### C MP, LDH, URIC #### [facility] [address] [place] [address] Dr. Alexsander Dickinson POINT OF CARE GLUCOSEon Glucose [Mass/Vol] 98 mg/dL Normal 74-106 [facility] Comment on above: Performed By: #### A 1C #### [facility] [address] [place] [address] Dr. Alexsander Dickinson PROF 14(COMP METB)on 023 Albumin [Mass/Vol] 2.5 g/dL Critically low 3.4-5.0 [facility] Comment on above: Performed By: #### C MP, LDH, URIC #### [facility] [address] [place] [address] Dr. Alexsander Dickinson Albumin/Globulin [Mass ratio] 0.6 {ratio} Normal [facility] Comment on above: Performed By: #### C MP, LDH, URIC #### [facility] [address] [place] [address] Dr. Alexsander Dickinson ALP [Catalytic activity/Vol] 138 U/L Critically high 46-116 [facility] Comment on above: Performed By: #### C MP, LDH, URIC #### [facility] [address] [place] [address] Dr. Alexsander Dickinson ALT [Catalytic activity/Vol] 15 U/L Normal 14-59 [facility] Comment on above: Performed By: #### C MP, LDH, URIC #### [facility] [address] [place] [address] Dr. Alexsander Dickinson Anion gap [Moles/Vol] 14.5 mmol/L Normal [facility] Comment on above: Performed By: #### C MP, LDH, URIC #### [facility] [address] [address] [address] Aelxsander Dickinson AST [Catalytic activity/Vol] 8 U/L Critically low 15-37 [facility] Comment on above: Performed By: #### C MP, LDH, URIC #### [facility] [address] [address] [address] Alexsander Dickinson Bilirubin [Mass/Vol] 0.2 mg/dL Normal 0.2-1.0 [facility] Comment on above: Performed By: #### C MP, LDH, URIC #### [facility] [address] [address] [address] Alexsander Dickinson Calcium [Mass/Vol] 8.6 mg/dL Normal 8.5-10.1 [facility] Comment on above: Performed By: #### C MP, LDH, URIC #### [facility] [address] [place] [address] Dr. Alexsander Dickinson Chloride [Moles/Vol] 103 mmol/L Normal 98-107 [facility] Comment on above: Performed By: #### C MP, LDH, URIC #### [facility] [address] [address] [address] Alexsander Dickinson CO2 [Moles/Vol] 23.7 mmol/L Normal 21.0-32.0 [facility] Comment on above: Performed By: #### C MP, LDH, URIC #### [facility] [address] [address] [address] Alexsander Dickinson Creatinine [Mass/Vol] 0.61 mg/dL Normal 0.55-1.02 [facility] Comment on above: Performed By: #### C MP, LDH, URIC #### [facility] [address] [address] [address] Alexsander Dickinson EGFR-AF MALAYSIAN >60 Normal >=60 [facility] Comment on above: Performed By: #### C MP, LDH, URIC #### [facility] [address] [place] [address] Dr. Alexsander Dickinson EGFR-NON AF MALAYSIAN >60 Normal >=60 [facility] Comment on above: Performed By: #### C MP, LDH, URIC #### [facility] [address] [address] [address] Alexsander Dickinson Globulin (S) [Mass/Vol] 4.1 g/dL Normal [facility] Comment on above: Performed By: #### C MP, LDH, URIC #### [facility] [address] [address] [address] Alexsander Dickinson Glucose [Mass/Vol] 123 mg/dL Critically high 74-106 [facility] Comment on above: Performed By: #### C MP, LDH, URIC #### [facility] [address] [place] [address] Dr. Alexsander Dickinson Potassium [Moles/Vol] 4.2 mmol/L Normal 3.5-5.1 [facility] Comment on above: Performed By: #### C MP, LDH, URIC #### [facility] [address] [place] [address] Dr. Alexsander Dickinson Protein [Mass/Vol] 6.6 g/dL Normal 6.4-8.2 [facility] Comment on above: Performed By: #### C MP, LDH, URIC #### [facility] [address] [place] [address] Dr. Alexsander Dickinson Sodium [Moles/Vol] 137 mmol/L Normal 136-145 [facility] Comment on above: Performed By: #### C MP, LDH, URIC #### [facility] [address] [place] [address] Dr. Alexsander Dickinson Urea nitrogen [Mass/Vol] 5.0 mg/dL Critically low 7.0-18.0 [facility] Comment on above: Performed By: #### C MP, LDH, URIC #### [facility] [address] [place] [address] Dr. Alexsander Dickinson Urea nitrogen/Creatinine [Mass ratio] 8.2 mg/mg Normal [facility] Comment on above: Performed By: #### C MP, LDH, URIC #### [facility] [address] [place] [address] Dr. Alexsander Dickinson PROTIMEon 02-01-2023 INR Coag (PPP) [Relative time] {INR} Normal [facility] Comment on above: Performed By: #### H BSANS #### [facility] [address] [place] [address] Dr. Alexsander Dickinson INR GUIDELINES SEE BELOW Normal [facility] Comment on above: Result Comment: CAROLEE RED INR: 2.0 - 3.0 CONDITIONS NOT LISTED BELOW 2.5 - 3.5 FOR PROSTHETIC HEART VALVE REPLACEMENT 2.5 - 3.5 RECURRENT THROMBOSIS Performed By: #### H BSANS #### [facility] [address] [place] [address] Dr. Alexsander Dickinson PT Coag (PPP) [Time] 9.2 s Normal 9.0-11.6 [facility] Comment on above: Performed By: #### H BSANS #### [facility] [address] [place] [address] Dr. Alexsander Dickinson PTTon 02-01-2023 aPTT Coag (Bld) [Time] 25.9 s Normal 22.3-36.2 [facility] Comment on above: Performed By: #### H BSANS #### [facility] [address] [place] [address] Dr. Alexsander Dickinson TYPE AND SCREENon 02-01-2023 TYPE AND SCREEN Negative Normal [facility] Comment on above: Performed By: #### A FPMAT #### [facility] [address] [place] [address] Dr. Alexsander Dickinson URIC ACID SERUMon 02-01-2023 Urate [Mass/Vol] 5.5 mg/dL Normal 2.6-6.0 [facility] Comment on above: Performed By: #### C MP, LDH, URIC #### [facility] [address] [place] [address] Dr. Alexsander Dickinson US PREG BIOPHY W [...] DEE GALLEGOS Date: 2023-02-01 15:04 Normal [facility] US PREG BIOPHY W NON STRESSo [...] SEBASTIAN HENRY Date: 2023-01-25 15:18 Normal [facility] US PREG BIOPHY W NON STRESSo [...] DEE GALLEGOS Date: 2023-01-19 06:16 Normal [facility] US PREG BIOPHY W NON STRESSo [...] DEE GALLEGOS Date: 2023-01-11 15:38 Normal [facility] US PREG GROWTHon 01-11-2023 US PREG [...] DEE GALLEGOS Date: 2023-01-11 16:42 Normal [facility] GTT 3 HR PREGon 12-01-2022 Glucose [Mass/Vol] 104 mg/dL Normal 74-106 [facility] Comment on above: Performed By: #### A 1C #### [facility] [address] [address] [address] Alexsander Dickinson Glucose [Mass/Vol] 182 mg/dL Normal [facility] Comment on above: Performed By: #### A 1C #### [facility] [address] [address] [address] Alexsander Dickinson Glucose [Mass/Vol] 114 mg/dL Normal [facility] Comment on above: Performed By: #### A 1C #### [facility] [address] [address] [address] Alexsander Dickinson Glucose [Mass/Vol] 73 mg/dL Normal [facility] Comment on above: Performed By: #### A 1C #### [facility] [address] [place] [address] Dr. Alexsander Dickinson PAP ACOG PANEL 2: 20 to 28on 11-18-2022 . . Normal [facility] Comment on above: Performed By: #### A 1C #### [facility] [address] [place] [address] Dr. Alexsander Dickinson Age Gdln ACOG Testing 21-29 [facility] Comment on above: Performed By: #### A 1C #### [facility] [address] [place] [address] Dr. Alexsander Dickinson DIAGNOSIS: Comment [facility] Comment on above: Result Comment: NEGA TIVE FOR INTRAEPITHELIAL LESION OR MALIGNANCY. Performed By: #### A 1C #### [facility] [address] [place] [address] Dr. Alexsander Dickinson Methodology: Comment [facility] Comment on above: Result Comment: This liquid based ThinPrep(R) pap test was screened with the use of an image guided system. Performed By: #### A 1C #### [facility] [address] [place] [address] Dr. Alexsander Dickinson Note: Comment [facility] Comment on above: Result Comment: The Pap smear is a screening test designed to aid in the detection of premalignant and malignant conditions of the uterine cervix. It is not a diagnostic procedure and should not be used as the sole means of detecting cervical cancer. Both false-positive and false-negative reports do occur. . Performed By: #### A 1C #### [facility] [address] [place] [address] Dr. Alexsander Dickinson Performed by: Comment [facility] Comment on above: Result Comment: Cici Clarke, Recruiting Associate (ASCP) Performed By: #### A 1C #### [facility] [address] [place] [address] Dr. Alexsander Dickinson Reflex Criteria: Comment [facility] Comment on above: Result Comment: The HPV DNA reflex criteria were not met with this specimen result therefore, no HPV testing was performed. . Performed By: #### A 1C #### [facility] [address] [place] [address] Dr. Alexsander Dickinson Specimen adequacy: Comment Normal [facility] Comment on above: Result Comment: Sati sfactory for evaluation. No endocervical component is identified. Performed By: #### A 1C #### [facility] [address] [place] [address] Dr. Alexsander Dickinson CHLAMYDIA/GONOCOCCUS ZUNILDA (SW AB/URINE/PAPon 11-17-2022 Chlamydia trachomatis, ZUNILDA Negative Normal Negative [facility] [facility] Comment on above: Performed By: #### A 1C #### [facility] [address] [place] [address] Dr. Alexsander Dickinson Neisseria gonorrhoeae, ZUNILDA Negative Normal Negative [facility] Comment on above: Performed By: #### A 1C #### [facility] [address] [place] [address] Dr. Alexsander Dickinson VAGINITIS/VAGINOSIS DNA PROB Jose De Jesus 11-16-2022 Reema species Negative Normal Negative [facility] Comment on above: Performed By: #### V AGINT #### [facility] [address] [place] [address] Dr. Alexsander Dickinson Gardnerella vaginalis Negative Normal Negative [facility] Comment on above: Performed By: #### V AGINT #### [facility] [address] [place] [address] Dr. Alexsander Dickinson Trichomonas vaginalis Negative Normal Negative [facility] Comment on above: Performed By: #### V AGINT #### [facility] [address] [place] [address] Dr. Alexsander Dickinson US PREG INCOMPLETE ANATOMYon 11-14-2022 US PREG INCOMPLETE ANATOMY EXAMINATION: US PREG INCOMPLETE ANATOMY HISTORY: screening COMPARISON: No relevant comparison available. FINDINGS: Heart rate: 150 bpm position: Variable Anatomy: 4.8 x 5.8 mm choroid plexus cyst is again identified IMPRESSION: Stable choroid plexus cyst Electronically authenticated by: SEBASTIAN HENRY Date: 2022-11-14 16:19 Normal [facility] FREE T4on 10-19-2022 Free T4 [Mass/Vol] 0.89 ng/dL Normal 0.76-1.46 [facility] Comment on above: Performed By: #### H BSANS #### [facility] [address], [place] [address] Dr. Alexsander Dickinson TSHon 10-19-2022 TSH 1.303 uIU/mL Normal 0.358-3.740 [facility] Comment on above: Performed By: #### H BSANS #### [facility] [address], [place] [address] Dr. Alexsander Dickinson US PREG ANATOMY SINGLEon [...] DEE GALLEGOS Date: 2022-10-17 20:42 Normal [facility] AFP MATERNAL FOR SPINA BIFID Aon 10-11-2022 AFP MoM 1.49 Normal [facility] Comment on above: Performed By: #### A FPMAT #### [facility] [address] [address] [address] Alexsander Dickinson AFP Value 60.8 ng/mL Normal [facility] Comment on above: Performed By: #### A FPMAT #### [facility] [address] [address] [address] Alexsander Dickinson AFP, Serum for Spina Bifida Report Normal [facility] Comment on above: Performed By: #### A FPMAT #### [facility] [address] [address] [address] Alexsander Dickinson Comment Comment Normal [facility] Comment on above: Result Comment: Niurka Patricia, Ph.D., [facility] Director . References: Available Upon Request. . Multiples Of Median Cutoffs For AFP Elevations Fonseca 2.5 Black 2.8 IDD 2.0 Twins 4.5 Abbreviation Definitions IDD - Insulin Dep Diabetes OSBR - Open Spina Bifida Risk . For further inquiries contact [facility] at [phone]. . This test was developed and its performance characteristics determined by [employer]. It has not been cleared or approved by the Food and Drug Administration. Performed By: #### A FPMAT #### [facility] [address] [place] [address] Dr. Alexsander Tiwari Age Collection Date 19.4 weeks Normal [facility] Comment on above: Performed By: #### A FPMAT #### [facility] [address] [address] [address] Alexsander Dickinson Gestat, Age Based on NILE Normal [facility] Comment on above: Result Comment: 02/2023 Recalculations are not recommended when gestational dating by LMP and ultrasound are within 10 days. Performed By: #### A FPMAT #### [facility] [address] [place] [address] Dr. Alexsander Dickinson Insulin Dep Diabetes No Normal [facility] Comment on above: Performed By: #### A FPMAT #### [facility] [address] [place] [address] Dr. Alexsander Dickinson Interpretation Comment Normal [facility] Comment on above: Result Comment: Inte [...] older. Performed By: #### A FPMAT #### [facility] [address] [place] [address] Dr. Alexsander Dickinson [age] Normal [facility] Comment on above: Performed By: #### A FPMAT #### [facility] [address] [place] [address] Dr. Alexsander Dickinson Multiple Gestation No Normal [facility] Comment on above: Performed By: #### A FPMAT #### [facility] [address] [place] [address] Dr. Alexsander Dickinson OSBR Risk 1 [place] 2809 Normal [facility] Comment on above: Performed By: #### A FPMAT #### [facility] [address] [place] [address] Dr. Alexsander Dickinson PDF . Normal [facility] Comment on above: Performed By: #### A FPMAT #### [facility] [address] [place] [address] Dr. Alexsander Dickinson Race Normal [facility] Comment on above: Performed By: #### A FPMAT #### [facility] [address] [place] [address] Dr. Alexsander Dickinson Test Results: Negative Normal [facility] Comment on above: Performed By: #### A FPMAT #### [facility] [address] [place] [address] Dr. Alexsander Dickinson GTT 3 HR PREGon 09-29-2022 Glucose [Mass/Vol] 99 mg/dL Normal 74-106 [facility] Comment on above: Performed By: #### A FPMAT #### [facility] [address] [place] [address] Dr. Alexsander Dickinson Glucose [Mass/Vol] 173 mg/dL Normal [facility] Comment on above: Performed By: #### A FPMAT #### [facility] [address] [place] [address] Dr. Alexsander Dickinson Glucose [Mass/Vol] 151 mg/dL Normal [facility] Comment on above: Performed By: #### A FPMAT #### [facility] [address] [place] [address] Dr. Alexsander Dickinson Glucose [Mass/Vol] 76 mg/dL Normal [facility] Comment on above: Performed By: #### A FPMAT #### [facility] [address] [place] [address] Dr. Alexsander Dickinson GLUCOSE - 1HRon 09-20-2022 Glucose [Mass/Vol] 159 mg/dL Critically high 74-106 [facility] Comment on above: Performed By: #### H BSANS #### [facility] [address] [place] [address] Dr. Alexsander Dickinson HEP B SURFACE ANTIGEN SCREEN on 08-17-2022 HBsAg Screen Negative Normal Negative [facility] Comment on above: Performed By: #### H BSANS #### [facility] [address] [place] [address] Dr. Alexsander Dickinson HEPATITIS C VIRUS AB W/ REFL EX QUANTon 08-17-2022 HCV AB <0.1 Normal 0.0-0.9 [facility] Comment on above: Performed By: #### A 1C #### [facility] [address] [place] [address] Dr. Alexsander Dickinson Interpretation: Comment Normal [facility] Comment on above: Result Comment: Nega tive Not infected with HCV, unless recent infection is suspected or other evidence exists to indicate HCV infection. Performed By: #### A 1C #### [facility] [address] [place] [address] Dr. Alexsander Dickinson HIV 1 AND 2 WITH REFLEXon HIV Screen 4th Generation wRfx Non-Reactive Normal Non Reactive [facility] Comment on above: Result Comment: HIV Negative HIV-1/HIV-2 antibodies and HIV-1 p24 antigen were NOT detected. There is no laboratory evidence of HIV infection. Performed By: #### H IV12 #### [facility] [address] [address] [address] Alexsander Dickinson RPR QUANTon 08-17-2022 Rapid Plasma Reagin, Quant Non-Reactive Normal NonRea<1:1 [facility] Comment on above: Result Comment: Plea se Note: This test does not meet current guidelines for screening and diagnosis of syphilis. This test is intended for following treatment response in patients being treated for syphilis infection. To screen for syphilis infection, a reflex cascade that includes both RPR and a treponema-specific assay should be utilized, such as Treponema pallidum (Syphilis) Screening [place] (733471) or Rapid Plasma Reagin (RPR) Test With Reflex to Quantitative RPR and Confirmatory Treponema pallidum Antibodies ([id number]). Performed By: #### H BSANS #### [facility] [address] [place] [address] Dr. Alexsander Dickinson RUBELLA AB IGGon 08-17-2022 Rubella Antibodies, IgG 11.90 index Normal Immune >0.99 [facility] Comment on above: Result Comment: Non- immune <0.90 Equivocal 0.90 - 0.99 Immune >0.99 Performed By: #### H BSANS #### [facility] [address] [place] [address] Dr. Alexsander Dickinson CBC AUTO DIFFon 08-16-2022 BASO # 0.1 103/ul Normal 0.0-0.1 [facility] Comment on above: Performed By: #### H BSANS #### [facility] [address] [place] [address] Dr. Alexsander Dickinson Basophils/100 WBC (Bld) 0.6 % Normal 0.2-2.0 [facility] Comment on above: Performed By: #### H BSANS #### [facility] [address] [place] [address] Dr. Alexsander Dickinson EO # 0.1 103/ul Normal 0.0-0.7 [facility] Comment on above: Performed By: #### H BSANS #### [facility] [address] [place] [address] Dr. Alexsander Dickinson Eosinophils/100 WBC (Bld) 0.9 % Normal 0.9-7.0 [facility] Comment on above: Performed By: #### H BSANS #### [facility] [address] [place] [address] Dr. Alexsander Dickinson Erythrocyte distribution width (RBC) [Ratio] 12.9 % Normal 11.0-15.0 [facility] Comment on above: Performed By: #### H BSANS #### [facility] [address] [place] [address] Dr. Alexsander Dickinson Hematocrit (Bld) [Volume fraction] 39.0 % Normal 36.0-48.0 [facility] Comment on above: Performed By: #### H BSANS #### [facility] [address] [place] [address] Dr. Alexsander Dickinson Hemoglobin (Bld) [Mass/Vol] 12.9 g/dL Normal 12.0-16.0 [facility] Comment on above: Performed By: #### H BSANS #### [facility] [address] [place] [address] Dr. Alexsander Dickinson IG # 0.04 10e3/ul Critically high 0.00-0.03 [facility] Comment on above: Performed By: #### H BSANS #### [facility] [address] [place] [address] Dr. Alexsander Dickinson IG % 0.4 % Normal 0.0-0.5 [facility] Comment on above: Performed By: #### H BSANS #### [facility] [address] [place] [address] Dr. Alexsander Dickinson LYMPH # 2.4 103/ul Normal 1.2-3.8 [facility] Comment on above: Performed By: #### H BSANS #### [facility] [address] [address] [address] Alexsander Dickinson Lymphocytes/100 WBC (Bld) 26.3 % Normal 20.5-60.0 [facility] Comment on above: Performed By: #### H BSANS #### [facility] [address] [address] [address] Alexsander Dickinson MANUAL DIFF REQ NO Normal [facility] Comment on above: Performed By: #### H BSANS #### [facility] [address] [address] [address] Alexsander Dickinson MCH (RBC) [Entitic mass] 28.4 pg Normal 26.7-34.0 [facility] Comment on above: Performed By: #### H BSANS #### [facility] [address] [address] [address] Alexsander Dickinson MCHC (RBC) [Mass/Vol] 33.1 g/dL Normal 29.9-35.2 [facility] Comment on above: Performed By: #### H BSANS #### [facility] [address] [address] [address] Alexsander Dickinson MCV (RBC) [Entitic vol] 85.7 fL Normal 81.0-99.0 [facility] Comment on above: Performed By: #### H BSANS #### [facility] [address] [address] [address] Alexsander Dickinson MONO # 0.6 103/ul Normal 0.3-0.8 [facility] Comment on above: Performed By: #### H BSANS #### [facility] [address] [address] [address] Alexsander Dickinson Monocytes/100 WBC (Bld) 6.8 % Normal 1.7-12.0 [facility] Comment on above: Performed By: #### H BSANS #### [facility] [address] [address] [address] Alexsander Dickinson NEUT # 5.8 103/ul Normal 1.4-6.5 [facility] Comment on above: Performed By: #### H BSANS #### [facility] [address] [address] [address] Alexsander Dickinson Neutrophils/100 WBC (Bld) 65.0 % Normal 43.0-75.0 [facility] Comment on above: Performed By: #### H BSANS #### [facility] [address] [address] [address] Alexsander Dickinson Platelet mean volume (Bld) [Entitic vol] 9.9 fL Normal 9.5-13.5 [facility] Comment on above: Performed By: #### H BSANS #### [facility] [address] [address] [address] Alexsander Dickinson PLT 275 103/ul Normal 150-450 [facility] Comment on above: Performed By: #### H BSANS #### [facility] [address] [place] [address] Dr. Alexsander Dickinson RBC 4.55 106/ul Normal 4.20-5.40 [facility] Comment on above: Performed By: #### H BSANS #### [facility] [address] [place] [address] Dr. Alexsander Dickinson WBC 8.9 103/ul Normal 4.0-11.0 [facility] Comment on above: Performed By: #### H BSANS #### [facility] [address] [place] [address] Dr. Alexsander Dickinson CULTURE URINEon 08-16-2022 CULTURE URINE Culture Observations: MODERATE GROWTH OF MIXED GENITAL JOHN. NO POTENTIAL PATHOGENS SEEN. Normal [facility] Comment on above: Performed By: #### A FPMAT #### [facility] [address] [place] [address] Dr. Alexsander Dickinson GLYCOHEMOGLOBIN A1Con 2021 ADA RECOMMENDATION SEE BELOW Normal [facility] Comment on above: Result Comment: ADA RECOMMENDED LIMIT 4.0 - 6.0 ADA THERAPEUTIC TARGET < 7.0 ACTION SUGGESTED > 7.0 Performed By: #### A 1C #### [facility] [address] [place] [address] Dr. Alexsander Dickinson Glucose [Mass/Vol] 111 mg/dL Normal [facility] Comment on above: Performed By: #### A 1C #### [facility] [address] [address] [address] Alexsander Dickinson HbA1c (Bld) [Mass fraction] 5.5 % Normal 4.5-6.2 [facility] Comment on above: Performed By: #### A 1C #### [facility] [address] [address] [address] Alexsander Dickinson LATRELL BOX TEST PT SEND OUTo n 08-16-2022 SENT TO REF LAB 08/16/2022 Normal [facility] Comment on above: Performed By: #### N BOX #### [facility] [address] [address] [address] Alexsander Dickinson TYPE AND SCREENon 08-16-2022 TYPE AND SCREEN Negative Normal [facility] Comment on above: Performed By: #### A FPMAT #### [facility] [address] [address] [address] Alexsander Dickinson US PREG TVon 07-21-2022 [...] DEE GALLEGOS Date: 2022-07-20 22:25 Normal [facility] US PREG TVon 07-13-2022 US PREG TV EXAMINATION: US PREG TV HISTORY: Missed period COMPARISON: 03/09/2022 FINDINGS: Fonseca intrauterine gestation Gestational sac: 1.7 cm, 6 weeks 2 days Yolk sac: 1.7 mm Southmayd-rump length: 5.8 mm, 6 weeks 3 days Heart rate: 125 bpm Uterus is normal in appearance, anteverted, retroflexed The ovaries are normal in appearance. Cervix: Closed, 3.9 cm small amount of fluid in the endocervical canal IMPRESSION: Viable fonseca intrauterine gestation measuring 6 weeks 3 days Electronically authenticated by: SEBASTIAN HENRY Date: 2022-07-13 17:05 Normal [facility] Coding Summaryon 03-17-2022 Coding Summary HTMLBase 64 WmmvhajuCZb0aCq+PGhl YWQ+JC3RYUOnA37jzWQm kY1EV9bTOL5NRYMBPYND DO0BNB5mmNT4GZwqP0Wq biAv ZgctdBWuTN14HDp3LOT0 hLsiGHxwyV3qmGYuM3p5 SwGvMT13iA61UAzgOELe KdH6EaMfxmkfeTLi X2jbBeJflDEwUdp+PHRh YmxlIHdpZHRoPScxMDAl EjRviDkpRB6qIm9eXHSe LWNvbGxhcHNlOiBj i2hqFFRkJHoxJF7wyQsw A4DtyGI3MFFtt0n8Vo93 dHI+VBZtEIV3pSizBVfb q359FoXju8cqLRF9 rEFwVEycNTT2K22uf8O9 SISnDZZvASJ0rET2sU4x qLxfimocO1UlvXDxOkV5 DMO7cBEtfA7yhXfr hyhahE8mTmx+Y68SPY9S BDZQOU6JIqk9W6MqTism dHI+VF14AKWtRY04vPEb bLDqr0aytGe0KuRw XPAnOJS8uAmlZMyif8Ic QZYqG92igEEiv8N4WNNa bLrafOFbSoMjcXN9uI1u KZphibmvl2imoadc Vegij4xlit28dW71H79t UOszDDLqPBR6WDCfQZSd wFemxq1chH8pMu5+IDxj s8chc2zluLx9ZyKp XBWgnpJxzWmdEWD7c2Zz Fv70D3EgkLiyl3MlMxc7 nu27bYYqf2M0iDZ2PTbg VNYptC3aDGvuTaN9 URUnVhSpwV54pYVbFDlv Gl6zmElttRecBZ3sQFMy awwzXGKvfT8sOCBdcQUz gVvsTZ1yKGBrbjca j171KaBiGTP9TVOdcMPl S6DdmP0pReJbHTMpGZZx Z5TyoJAiNNxnJ764CFtf PoT7ZNByoqXgH4Kp VYQkfAwdCcJ0z2J9Bb7L g8DbdednKQN6LKqdJFX5 DxKaHhGbHkL2W7EcOvi2 GLGcxVxkZL3lC2Pe YFQzomysqsdyjUH3AKXe KCKnjH83sADyOPzvGp0a z1Q7u224QOKjJQRngM76 Yt6ahTajFLBccBVL wY6rmlvja3rekitpLpPu DGKkINy8KCr2LHKowTus EyVqGZU8ZkL9MFM0eMGx aE4wcHctwqdanG7l Oyc+F29ozY2eKWS6OVN9 heyqEJPcjyZlLS52MG53 H0QiUudegZXwqGV+PGRp rxKxjPjiOQ0cUkAn m1sxw4IzLKwfG4XbUJFs DEuvDnm8MCTmKIT8rWK8 xK9nMCHnHVzez5S7aWO0 P9GbyfHqvs1vt9np BQTeOKajN21iiGYgp1J1 YRNugEO0NVPtcGnzBcRw hZ10Jpd+UXJrcJcpe9Az Yunjl5tgu9fwaGi8 IjMwJSIgdmFsaWduPSJ0 i2VeZj06E38oTCktYONj TASsIXCbZWYukEyoxa7k dO5oWe4+PGNvbCB3 yQI4fN3uRAZsNrL6GFzt I550MrWlzKHrHeako5na e3ucxTs7TgGmSHIbtgZd aUyzQYP9k8BsRd24 Y10nZWddHHKvGIQhBQSu VPCfeUudeo3iuT2jKq5+ FY4dg4nwzf38gH14fUV+ PNCbQUK2pUjlMEpm QAZidT6hGMnrXcG5OQGd QyRihZ78cTUtUSylOp9x rMoniWfnBR0aBBAjwvjb m192OlHtv5xjOLZb gHIzBRhqGVC1J79cr8P1 QCNsCHUxRPY5cGX2qE4h bGlnbjogbGVmdDsgdmVy nVfgEPquTBhqO074 IHRvcDsnPlBhdGllbnQg HaPpDGg0L1JhTab2HUWo eVpbKR3wsHVuWAexKx3j yNbuzUasXC0vTAUc pnlny372YcEaf7xkSUYi gAKnYKslJQA4B37sz6K2 OIIyWSUwKEC3pAP8oT9d bGlnbjogbGVmdDsg kxIapWzyWDtvAPjuA953 IHRvcDsnPkJpcnRoIERh mML8XH70DP05lJQxy2J1 mJL7Z5CnHHYetctl gmgejVU7OGVhBGJkuT82 Uf7tkSoxLc6wSBYfBJA6 IMCgvGTnC3DpxG5tYaWl FWRxQWMiS6NkiEUr HZapQ626UQjyQoO8YTKo tuOjJ8JeTQLhgCuvViA9 i6E2Ls6OZ3V3LF76JI93 kQOuj2C1gDJ9E9Ov ZRXeokoyxxegaUC1GFOk YETgjK82Rh6qdJnvMc3u JYEiQPQ9DTPprMWiT0Uv hX1jKiBsBEGoHLTc D1HbvRFiEAthT997NDfd SrN5HGOfcaWhG7YmSNTg yYqdWsU6m5I6Qm6RCXo4 GK57YC78dPXvw4Y8 vDR1J2HiFIPmzhlkdwen lRB9CINiYTVpcN99Dr0d kMaeCf9nJQYySTF4ZXIe iLNkV2FqwR9rRtSr IOHxWZTgP9JafBQqSPwh V387QIrmPqA7OECydmDw T7UkGTQymZkjMrP5a3F9 Zr3BBHAgFS20POC4 uWL8QZ03OA54S8ScVubb dGFibGU+PHRhYmxlIHdp ZHRoPScxMDAlJyBzdHls TR9cGe8zRGGqOUVu tWjtoVCeFrMxx9uhEXAt UNojOY1yaNkuU1RhjGG4 YXOzm2v6Wb64J85hC8Qv dXA+AJElaPN5zWC3 kR7kAcDnPtU4MVlgG328 XrAecXHrKuegn4rzm3ib eVi9KsO1LXUtsjHilFku NSE5v0KxSb05C72y IHdpZHRoPSIxNSUiIHZh fRtyqg0bhB3wUo2+PGNv sGI4wTF5vR6hDiKgHjV4 HFnwV980XnYhtFNs Bdlxv6aul7epsIk6HjHk XEVfbuNokXcyVQN2m4So Ld62Y5KmwFwaf7BcTky0 fp25ePSeh6G2zUX7 T1BtRJNvitrszLJsqVhb QO9qYBRdkxmaEXXabX4s UCDiR8i5VzJqGgE7OPew Y0OvkyU2PIWnqGDs LEuqFLD0N91zb3U9GDSq MJVjBBL3bZZ3tA3myYlw bjogbGVmdDsgdmVydGlj VHakEHloC536VAQv vOqeALMzzU9gMNKokHMn dAiuRY3tZHPmaswrCdNM TExJTlMsIEFMWVNTQSBS SUUQTSr9A5UaAgp0 RJPugQrmXB4bkVMcHKaq Pw7ksEpcqVzvVN3kKGVf oxgzQNFcbP2yQIUtkXQr pSieFW9eGBBhumgk d522WfQiNMK1WZTqwANb N4UvmD0dYrDaGFTmVVQj R9AmiKUqALtmL548MPba RtH7TBZazxZcB5Qv UCQzqSeiBaM4x7C4Rx0v RM5jJp3nAEb1BQ35JT03 fXIga6O8uYC2W2LxNCIx pqfgtafneTQ3VGCy NAOneV90eBYlCHsnCs8q o6Q1l156YCNxEFTqvE89 Ev1fjMziCXSgwZMTdL8p ufrip3gliioiYmQp YVNlRFo2AZk4ZGJmeXbp AvDqOKZ5AtR9WID7jWKx yM9woHncndxniW8pOpl+ SqsjMIVmibR6U3Fz Rcg0FHQqmHpsTE1jzAGz JBryRz8oxWijhLdhFZ5b YDBrwgopOZMmlU4pYRDj oMQrlPpgHG8gLJPh qvvdd983UgQnWEM5LOYd fCPiP6LanJ9nXdExIJYk IIJvT7WgdVZyYSbhU473 WGnbZnF9DSHhbpDv I9UfRKRjlNevIwS2l5E4 Xq8RID1SGEE6E5WgYsd2 VZEzoUiqGA8guNKkLKlc Ji5jxKdmoNqwEE4l YBDhjkijOWCibA0bXFNa bUYuzSawCG3oKRNgivtm n145XnSeOSL7JZFgeNBh F2MarT7fXuVzNELz QNZlI7XpkQYyAJloN421 VVitBbG3YKGacbVeY6Jl YMObsZejLlI8e3V7Xg9H UDwvdGQ+KO67rd41 Q4IuFczpXwb2MEFaPIX6 cUO4jE3iZFFtOTefi8D8 kXC5N3TfvjUtgt8np9ro UZUiBHocH15ahVJw g5X3JDIdhWR3VEDxmGtn GvQmwP69Civ+PGNvbGdy b8KjTdynu9phu0wdwDu0 IjMwJSIgdmFsaWdu XZO1z7WoLy00W22tJJzj ZHRoPSIzMCUiIHZhbGln we4pcQ5zOe1+PGNvbCB3 tTV5gT1uQjZhTpK7 BXikR984FbNtnBAbAskb r7pzb8pktQh1QoVzGVAg uuAtaHjhZKC3i8WuOy17 L5DjiHqkt1IxSbk4 wc40hBIzf7X1vPL2D8Oy UGQkxmkngSZlxRgeZT3d UFCdtznsPYAvtL0xXKWb M5z4VzQgUhW8JLfh F2LigfF4MIVxsYTvDBHi wQKZyA5msackl1xplyhd PtQgVIRxPZl1FVr8QHNo cTtkKlJbLNA3NvB1 VVT9mGPmsI5lnXgqiacx nU2uTii+IUx6q7ptsTXd GV8gyHJ4RE22SE38kKXk k7R6iDO4C1CvIFCv hegodqelqNS1LMHoDZKe xQ40Yg6cuBciWp8tUABt SZT9AUSdmXWgW5NrwP5p BjOjBMHyAIOlN7Kf xZIhBLjeX927ATdmXgG6 GWWvzuBuI7IqTEIlwAtt WuL6q8Q7Jz3VTS42QI86 RR12nLSdu8Y9uOA9 U5DjOLTddccnxtjweGA0 HHTmFVJycE30Bs9tbLji Al2cRZQjWEG6TWEkqERy A6NtmH6aNySmDLUh KBLfO5IefNCrYWesC852 IBbfNwI5VXPrcuZqI3Zj HRDnzSnjVoS8e0X9Iz3E Do31GE00RW86zZOm a7Y5gZQ7R9PpRBNzfhjd hmzokXR6TIYfCYAzfT97 Hp1jdIhwNm3rQVVbLRE3 GTOjfZFbX9MmhP9q NdHvBQHgGXOsJ5OobFSv SVofH876CZpxNuN5IKAv szAbJ6ZuBVAeyFjkOuE1 z8V7Qv8KWZnqvdm4 P8XzTstffCL+LK25QYAw EU72wZDwfTNoe5mmcEl2 XrJqVKMoPUO4eRwaAGml h8RkRITkQ86qvCUe c2U (more content not included)... [facility] Coding Summary HTMLBase 64 VrkrdoigMRx8pXk+PGhl YWQ+GW4OGJMfJ71rcCAk nP4UX1pAED8IJTBBSAPH JG6CAX9uvLL1PJhfL0Wo biAv NtulzYFvNH95POb2RNP5 gYjfXKnomT4leUHlP2w0 ZtIlXD78qF55VSyzOOXn SeD7RlEfyfbyxBCc B1eyGoBpvIBaIfn+PHRh YmxlIHdpZHRoPScxMDAl VtEznGgzER8lJl7tYLAq LWNvbGxhcHNlOiBj t3blBSDyJBgjFJ6nnQgs E2MslCF7AUNxe1l2Zd47 dHI+TRRaHNR1dDezPXtz o926XzUlo8acDUD4 pHOzNNchRDD4F20nh0P2 DROzJHEcZVS6iST3sU7g iNiwovnoG5MlgJPrVkB1 GDJ5gOYftQ8nmKwm wsjmpJ7nCjg+J55EKC3F NFWMPN6QGdh5R0DcNoba dHI+AR18MGJqEH38uQEc dKPpp0nlhGa8SqHc AUNoTPI5vYdlOVbqu0Zw GLIxR56fiQUjc4W3YSCb cByyeWWnPvZbnBR0dF4e BOlsrcjjp6uusbmv Ttden5hpzi88bI62J78n RVaoTORwSUO5NZDyQNVk cLgrtx7clO4lQh5+IDxj w6vdb5dedBl6BdJn IYKdmuCmaTztQII8a7Ft Ct45E5NtfBigp6MsTrs0 qy15lYQks8I0rBJ2FBrd RSTwyY4jECjsLnG3 RZGwGlQigZ06qGFaJVnq Bp8xjGkjfTdiOF5bSZEa bypdGEUcbM2pMGAxyEWu sKzsKT8xMGSihbwp b118CjSrHLI4AFCikDQl P9DusK5wUhVbOINoFHSb U6GcfCTfSGmgM082MXnx ScG3YWOdogVzH4Ln MQMlnYixIvZ4p1B7Iv1V u4WhbplcZEM3FHrsLPS8 ZjTzKiHnWzL7K9JuRap7 SXWsuLjgDU9vP3Dt LCBammwfhzamaFM6XCEt PPSzqN81uVGoYQwwMi8a v0G7l250SMTnMLLkdR84 Zv0esXdcIOIqwSUV nA6cymqis7hroooqFsYs XWLpFMl8IYb9RSCsuKrn JaArGWO7DmM2YEW5tYXk rF7fkOptvssjiG1m Oyc+D00sqD2iAIR4ZCM2 cyhlILRoclJoAE62PE96 U5PpYkyuhJQbmEZ+PGRp jrOzfDzxMS1cZqLn e7dcd7GcHGbyQ2HoLPCp QVdiHkl2MUQoJRX1iVU0 sA8iPDFpASmsz5B5eWT2 J2MyqxDviw6ms9nj CQHxRDwkM45yjOTzg0K4 VRTffRH2NSGxcBuiFvKh bY44Clp+BLFunCgrg5Ic Ysidc0xtj4eguRe1 IjMwJSIgdmFsaWduPSJ0 o4XwHj30K06aHOujHSPd AHQxNRHtFWCuwFslny3m sB4wVe2+PGNvbCB3 xTC8cN5pMWAdCnB3MNwa K606KrPkrSAzTlxdx5pg w4auxAr9TzQpYISarxGf zArsCEF7x4LyFd69 X54qNHumWLQpKCRlCUGv JAAgzCjgtq3ucC0yJp3+ IL0rq8jnql13zJ91eVL+ RPSlECD1dEwaFPwv ZDCrhM0oYPqpSbW5REGi OlCtcU58eZJsBYmaMi0w lUrhlHudKL6fNYLxflch h629EwBdn0muNPBq pTSpKNbpCVO1O92ze4J4 SPCfJJXvTUW3nXU7fZ8m bGlnbjogbGVmdDsgdmVy cCwgOFkwHVqzR691 IHRvcDsnPlBhdGllbnQg WmMtLGz9K9AhWai3ENOo mVdrEN1udBPrPVifZy0k zCrabDfeWD7cIBIp poaib797SeGdw6bgMUDw oAAyEGewRQR2A89jr6J0 UYNsALTxVZS9lTB9fS3e bGlnbjogbGVmdDsg pjBjqDyjBCczCGsnS738 IHRvcDsnPkJpcnRoIERh mNR3IZ42VY85oTInn1J2 rKI1S0SyTOGtnthq coeutBH4IIYoQXOmiA88 Vd4efYkkJa8wDIWdPKA6 DUIllWWeO2YkyI0yVqQj NNYuMWOzH6PhfXSp EVkzF066HBloSaV4TICr epRzN1HdCKTykMgiIiM0 l8M3Nk3BT3K7RJ81OC29 pKKvd6V1qZN0S9Zl PNKakjtksvktuRR0EUFi APBhbL68Kh6wwQvtOn2w OMQeLTW9ZZCadGGnW4Yd uY8iDeWlRSVfYHYl U4DwaFIoSTcfD695PSja FvU7KHKeavCpF1VuCKGu kIesAcF0z3O9Ts7LICe4 JT19IP47gDMhp1X4 tVI0W5HrJKBsscftobfd vVG4RFXpJVUflY04Xr9t oMjiRe6bCTVxLRM1OVUs kMPtU8TjbP8zIvKf KXKrOVCoA1XthVAoFApq N951VIebDzQ9EDShwuXy T9DbEYOxnRzeZhA9v4G4 Yt8ZOVIeZC32LWT0 wND9AA31UV33W1HiDmqw dGFibGU+PHRhYmxlIHdp ZHRoPScxMDAlJyBzdHls CA5lCx3gZSXxGHTg oIvnjOCgNmGne2frOMWj EYilGV6ipUnbY8PppIE8 WENcz3u6Ln02E70tP1Cq dXA+CBLboNH2bJC2 sW9bStZmTcD3IGxuF341 YxBvmELhHbudc8rhu8rg eVf3KvK7HEFhtdAkeVrr ZHK2a9WcVd92N80w IHdpZHRoPSIxNSUiIHZh iFkaur4poK4dKo0+PGNv vSQ9eNO8hA3nYoPxNiP5 EQopW935HlSicLAe Jkhwv8srm5xijHd1CiKj ZXHncwStkYxmKTN2u0Iz Gw51P3HjwRcfq5GoDzf7 xa05pFIqf5U0cWD0 C0YjOZPdjoafcOPseDcw HA7rNOLyfbccULOgnP2r KQPdJ7v5UhGmWxR1ITij I8AfnbN1LPEeaMXo UYrmXAG3A43yz2Q1VJTu XZAiBNT3pDY8kS4ltHyk bjogbGVmdDsgdmVydGlj WXaxQCxdO625JCJt iMdtXUEylH9fJQUpzHOf uGgrRT0oRHPdnaezXsXM TExJTlMsIEFMWVNTQSBS WQMXJJt9N2GsCfq1 DBSenAjySQ8xnHCqCHxk Rr9mvSjebHdaHK5bYXVa bsvuTMDshJ9sJUTueXZf dOuiJO8mHFBebppe i085XgJrFPT0TZGozOUm P0NrpH5kKzWoDKGeVSZe G0JpwCQiWFvfT831NNon LrK0WHFtefBoZ7Tl QEDwcJhuErU9f1M4Ka5f LZ0bOv7hRAl8BZ05DJ38 rONqh0D4uHB6Y2WhMHPv dmlpfmgcsCS8MFWc MAQejH41qRXqGQfjSc8z o2N6n783TMKnHPYyuQ33 Wq9dcLhfSRGpaHDMlR8r psswg1pnwnfmSrHk WXSpPSt2VQr3UEAdtEux HpBnZAS2RcZ0JJM1cVEu eR2tkFmtyyoneL9oJqx+ GyjlNNDqjrI3Y8Nw Jnu6LXXelEteXO1pdNLm GXiyJl5fiKnruFhxXU2q MWPbblnpIWSkyO9yGTGv uYVowDroGD6bQFMf cfbby486HrZkMOL5HSGj jZAvZ5SdkB4sPfMcRSZx MNWxK3MchYYmTGukX315 EHwlIfE1JPImnfWt R8EzUUUkpEjgYrI7n9E6 Cr2RTJ6EGFI5Q8TdJxc6 KPGvwOxaOJ3rmXWjHGgj Gz1xhFrlyOdqOY4i MXDebxjjTUItvV3iVMJd lQBbbGgrYM8wIESbpnil d970FuOyAOX4INNzrYBp Y5CxqY3jIzDbSHNs NVYrV6CeqITmXVpwU332 GZqnMgG0CMCsbhIbG2Oe XHZmhMpwDmX9a5N7Cu8G iYAzN1HsA1h5W2Cy PjwvdHI+WH61GAKaLV34 bFSsxASes2lvtEj0ZjBl DUEgDOG0vWccERkom6Rl SFOoB61orJQkj8V8 IGNvbGxhcHNlOyBlbXB0 hJ6hAEspvfyra1dcesfp Zslbu3pqma02vP81M82r IHdpZHRoPSIzMCUi CGWzqXepio6ovF1gRw0+ YDZitOQ8iCN1gM9lVfSt GhR7NVioL409AmKwuDMm Jlhpo9rcv9aqkBl3 IjIwJSIgdmFsaWduPSJ0 i9JqGd18R78oBMvqJOCk AFAvJZQoKIXtbQaxvh9c xX0rMg0+NY7el2pc cq04jP56zTX+PHRkIHN0 eAfiZIrvQLTfzZ4tYYyw DaA8XBXzGvVjuT83gPIk YIdeRz7rsPrukYat VC6lHBPhvkrvp752GcPl i4dmTEVsaCElDLstLSI8 D07gm5D4TBMfCWJtCCE9 cTC4iL1kwLgtwwlm bGVmdDsgdmVydGljYWwt JVixU063WXZkgNxsHgXr xHTaO0efqbQCEI9xFqdw dGQ+LWHnGSD4jRcv QGsjRRNopB5kDKKxX3g0 HaZnKhL9TLcoN7BvbdL6 CKAuyUDqFTSisSZJsI7d gfzlc1vgjitsIaMg PXKkZAa4CUb3MFOwhHkl OxRlAAG4HsL4TLS3gAMh dC5tyTkuvytieT5hEpp+ RklOOjwvdGQ+PHRk QHY9xKxhXNisRUXwdE9p LLUjJ1h7RaNbZrA4BDzu N2ExaqX7NCXawCLpALBe oLVBlF9yczryt9wh ckljKpWgQLQoAJf8EIf3 LUWfePwvMlAbHDW0XzD2 RBI4aRUqfD4xsNpwvepd gE7qTul+TVJOOjwv dGQ+LTCaZRD1cLrdUBmz LOBtrL5mMXErP3j0CdFx WiQ7TLoeB0PpopW8UDXg dNAhWROmjHPUbH5z cuqsk5atwsfrOaQwOECk NDx8LXr7RJIsdFfvIiMw KCK5IqR9AGI3cOWkoM3r zVcvzjlibB2oEvj+ QAJ5SVX3UE77YW18O1Iu PjwvdGFibGU+PHRhYmxl IHdpZHRoPScxMDAlJyBz qHuxCX3vUb0nUPAo LWN (more content not included)... Normal [facility] C Urineon 03-11-2022 C Urine Urine Culture ordered as a result of parameters set on specific urine dip and urine microsopic results. >3 Organisms Consistent with Contamination Recollection suggested. Normal [facility] Comment on above: Performed By: #### 1 [id number], 39598541, 6503196, 8285493256, 40560540, 2127763, 4343532878, 7713217155, 3891804987, 8371206 #### [facility] (DEFAULT) [address] [place] [address] .Auto Diff 03-09-2022 Auto Gates % 8 % Normal 11-09 [facility] Comment on above: Performed By: #### 1 8429503, 56038910, 1596800, 2847400989, 55492744, 8579465, 2276633725, 7398750447, 7011105092, 7976969 #### [facility] (DEFAULT) [address] [place] [address] Baso Abs# 0.0 x10 Normal 0.0-0.2 [facility] Comment on above: Performed By: #### 1 3318911, 74563361, 8043960, 2457259628, 14390397, 8826709, 4318647527, 4832577144, 7718022023, 9270054 #### [facility] (DEFAULT) [address] [place] [address] 80364 Basophils/100 WBC (Bld) 0.3 % Normal 0.2-2.0 [facility] Comment on above: Performed By: #### 1 5438707, 46155744, 2164622, 1019121849, 87756256, 5567023, 2908011674, 5170756891, 9818272572, 1613410 #### [facility] (DEFAULT) [address] [place] [address] 25019 Eos Abs# 0.1 x10 Normal 0.0-0.4 [facility] Comment on above: Performed By: #### 1 8977912, 72421848, 4587075, 0819439149, 14495127, 0238547, 7870882118, 9306588500, 2676665452, 3321273 #### [facility] (DEFAULT) [address] [place] [address] 61429 Eosinophils/100 WBC (Bld) 1.0 % Normal 0.9-4.0 [facility] Comment on above: Performed By: #### 1 1400551, 97364265, 5542853, 9259212816, 69652613, 4359047, 5837163329, 6592263101, 1824580293, 9491781 #### [facility] (DEFAULT) [address] [place] [address] 41324 Lymph Abs# 2.0 x10 Normal 1.3-2.9 [facility] Comment on above: Performed By: #### 1 9558156, 21240202, 2720006, 0446663475, 85602269, 8245915, 6436762241, 7671419114, 8823919828, 5897650 #### [facility] (DEFAULT) [address] [place] [address] 98767 Lymphocytes/100 WBC (Bld) 35 % Normal 14-48 [facility] Comment on above: Performed By: #### 1 3753690, 58535999, 6881113, 3902611126, 47578190, 3818394, 9461903115, 1135627723, 7659883680, 4983580 #### [facility] (DEFAULT) [address] [place] [address] 38167 Gates Abs# 0.5 x10 Normal 0.0-0.8 [facility] Comment on above: Performed By: #### 1 1572076, 41744754, 7131216, 5745547758, 66321281, 8651486, 2405777426, 2669401820, 3727350130, 0791001 #### [facility] (DEFAULT) [address] [place] [address] 44533 Neut Abs# 3.2 x10 Normal 1.5-9.2 [facility] Comment on above: Performed By: #### 1 2533036, 07348697, 3550515, 5159029608, 60268893, 5702178, 2551705136, 6913377762, 4678489593, 5816871 #### [facility] (DEFAULT) [address] [place] [address] Neutrophils/100 WBC (Bld) 55 % Normal 44-88 [facility] Comment on above: Performed By: #### 1 4055531, 44362130, 3122139, 6760680527, 26216198, 8297781, 7323993674, 1217160606, 4526792872, 6344019 #### [facility] (DEFAULT) [address] [place] [address] ABORhon 03-09-2022 ABO and Rh group Nom (Bld) Hx Check: Not Found Anti-A: 4+ Anti-B: 0 Anti-D: 4+ DCon: 0 A1: mf+ B: 4+ ABORh Interp: A POS Invalid Interpretation Code [facility] Comment on above: Performed By: #### 1 9885440, 08298683, 4394702, 1704239474, 12669970, 8643082, 5865204378, 0046032865, 9750906925, 3294031 #### [facility] (DEFAULT) [address] [place] [address] 16993 ABORh Retypeon 03-09-2022 ABO and Rh group Nom (Bld) Ordered by Discern. Anti-A: 4+ Anti-B: 0 Anti-D: 4+ DCon: 0 A1: mf+ B: 4+ ABORh Retype: A POS Invalid Interpretation Code [facility] Comment on above: Performed By: #### 1 8317007, 36348691, 2204016, 3320346670, 28609754, 9221678, 1333932749, 9426575285, 9739085362, 4350710 ####[facility] (DEFAULT)[address] [place] [address] 17159 CBC w/ Auto Diffon Erythrocyte distribution width (RBC) [Ratio] 13.3 % Normal 11.5-15.0 [facility] Comment on above: Performed By: #### 1 2043688, 23691927, 1700043, 0995756617, 87130726, 3205984, 6997781382, 1636074750, 8451819997, 0760233 #### [facility] (DEFAULT) [address] [place] [address] 98444 Hematocrit (Bld) [Volume fraction] 43.5 % High 33.7-40.4 [facility] Comment on above: Performed By: #### 1 8337677, 75246187, 9564993, 2039963725, 80027970, 9317935, 5416249631, 5555777476, 1342704659, 4111211 #### [facility] (DEFAULT) [address] [place] [address] 48312 Hemoglobin (Bld) [Mass/Vol] 14.1 g/dL Normal 11.3-15.9 [facility] Comment on above: Performed By: #### 1 8131524, 88787790, 2142326, 4627360949, 95634211, 9902143, 0055128823, 8399603117, 4770304902, 1686837 #### [facility] (DEFAULT) [address] [place] [address] 15035 Instr WBC 5.7 x10 Invalid Interpretation Code [facility] Comment on above: Performed By: #### 1 8887428, 49695760, 8579941, 3716669314, 82336183, 1054713, 9691313314, 8520551202, 0027241332, 9401620 #### [facility] (DEFAULT) [address] [place] [address] 46744 Man Diff? Auto Normal [facility] Comment on above: Performed By: #### 1 5223207, 20621365, 7871059, 8077698109, 75842405, 7412312, 3458845334, 6663151837, 2706491343, 9366036 #### [facility] (DEFAULT) [address] [place] [address] 75369 MCH (RBC) [Entitic mass] 28 pg Normal 24-34 [facility] Comment on above: Performed By: #### 1 1784935, 99615216, 1090091, 6673286435, 51536401, 7087816, 0920985978, 3568653045, 6433123488, 8591004 #### [facility] (DEFAULT) [address] [place] [address] 77416 MCHC (RBC) [Mass/Vol] 32 g/dL Normal 26-37 [facility] Comment on above: Performed By: #### 1 0581705, 04067789, 7246412, 2135757697, 02291752, 8314628, 3855862844, 5941062278, 1705648713, 8812664 #### [facility] (DEFAULT) [address] [place] [address] 01242 MCV (RBC) [Entitic vol] 86 fL Normal 81-100 [facility] Comment on above: Performed By: #### 1 8885448, 82245483, 7674733, 1295885487, 48846761, 2146049, 4105868310, 9830617000, 5781862791, 1675142 #### [facility] (DEFAULT) [address] [place] [address] 64067 Platelet 324 x10 Normal 138-427 [facility] Comment on above: Performed By: #### 1 7624020, 63595367, 4423304, 3476377999, 82652109, 7907555, 9468636671, 7388954360, 7447998708, 1961492 #### [facility] (DEFAULT) [address] [place] [address] 59319 Platelet mean volume (Bld) [Entitic vol] 9.8 fL Normal 6.3-10.2 [facility] Comment on above: Performed By: #### 1 6909049, 65597105, 8790630, 5815940330, 77954497, 6731597, 3826258878, 5530277764, 2675911360, 5611829 #### [facility] (DEFAULT) [address] [place] [address] 39764 RBC 5.07 x10 Normal 3.70-5.30 [facility] Comment on above: Performed By: #### 1 4399311, 22238054, 0263416, 1625536636, 38460529, 9958454, 3984801526, 5354678999, 2561351930, 1441269 #### [facility] (DEFAULT) [address] [place] [address] 69863 WBC 5.7 x10 Normal 3.5-10.5 [facility] Comment on above: Performed By: #### 1 2362695, 02069623, 8558594, 9454283670, 18193779, 2911444, 0897585976, 3171139345, 4935859231, 8480470 #### [facility] (DEFAULT) [address] [place] [address] 69929 CMP Standardon 03-09-2022 eGFR Non AA >60 Invalid Interpretation Code [facility] Comment on above: Performed By: #### 1 1417462, 49430362, 3346332, 3660467054, 16870668, 8033792, 5918099595, 8518679464, 3017284467, 4389815 #### [facility] (DEFAULT) [address] [place] [address] 05714 eGFR AA >60 Invalid Interpretation Code [facility] Comment on above: Result Comment: Cis Coordinator susie Kidney disease could be indicated at eGFRs of less than 60 ml/min/1.73m2. Kidney Failure is indicated at less than 15 ml/min/1.73m2 Performed By: #### 1 2031508, 67941925, 3854331, 3058785260, 43461753, 9445091, 4086303144, 3618780863, 2555937734, 4466334 #### [facility] (DEFAULT) [address] [place] [address] 01489 Albumin [Mass/Vol] 4.5 g/dL Normal 3.5-5.0 [facility] Comment on above: Performed By: #### 1 9135326, 57599922, 9580580, 7576749450, 31101533, 5570787, 9991765390, 1875584123, 7788974282, 7125915 #### [facility] (DEFAULT) [address] [place] [address] 80419 Albumin/Globulin [Mass ratio] 1.2 {ratio} Low 1.4-2.6 [facility] Comment on above: Performed By: #### 1 8765738, 42548275, 7734529, 1678658295, 34347336, 5989743, 8121877772, 3306706959, 7098854251, 2554418 #### [facility] (DEFAULT) [address] [place] [address] 99189 Alk Phos 52 IU/L Normal 32-91 [facility] Comment on above: Performed By: #### 1 6606667, 41719048, 2378954, 8593227777, 64746764, 9042119, 5258321748, 9180303259, 4107548274, 5206808 #### [facility] (DEFAULT) [address] [place] [address] 16564 ALT [Catalytic activity/Vol] 37.0 U/L Normal 14.0-54.0 [facility] Comment on above: Performed By: #### 1 2801951, 88686361, 8605536, 2185613156, 99298524, 0747000, 4044534868, 3121740152, 5674001552, 3286424 #### [facility] (DEFAULT) [address] [place] [address] 16583 Anion gap [Moles/Vol] 18.0 mmol/L Normal 5.0-19.0 [facility] Comment on above: Performed By: #### 1 5234468, 04036101, 8786309, 4946147709, 58731518, 6907851, 6179255612, 9982744122, 8223329981, 0469385 #### [facility] (DEFAULT) [address] [place] [address] 58715 AST [Catalytic activity/Vol] 29 U/L Normal 15-41 [facility] Comment on above: Performed By: #### 1 7612543, 14869177, 9572620, 5995200793, 96327962, 1072900, 8261103045, 2065581246, 7264965368, 3423483 #### [facility] (DEFAULT) [address] [place] [address] 91414 Bili Total 0.7 mg/dL Normal 0.3-1.2 [facility] Comment on above: Performed By: #### 1 1554222, 78438741, 6801055, 6500857283, 59462682, 0857190, 6122117182, 1768041985, 3754487603, 6094147 #### [facility] (DEFAULT) [address] [place] [address] 38394 Calcium [Mass/Vol] 9.4 mg/dL Normal 8.9-10.3 [facility] Comment on above: Performed By: #### 1 1086427, 92780972, 1990868, 8810259610, 56596413, 9103453, 6935166238, 0165758564, 9927848768, 6476316 #### [facility] (DEFAULT) [address] [place] [address] 83026 Chloride [Moles/Vol] 100 mmol/L Low 101-111 [facility] Comment on above: Performed By: #### 1 7803030, 02668527, 7031959, 6644947682, 08051980, 4478143, 1798190804, 1298338307, 4416719883, 8524358 #### [facility] (DEFAULT) [address] [place] [address] 49504 CO2 [Moles/Vol] 24 mmol/L Normal 21-32 [facility] Comment on above: Performed By: #### 1 1805381, 35502408, 5025771, 0238785048, 26722729, 6794745, 1088017259, 4947632326, 7929327713, 5055200 #### [facility] (DEFAULT) [address] [place] [address] 90083 Creatinine [Mass/Vol] 0.75 mg/dL Normal 0.60-1.30 [facility] Comment on above: Performed By: #### 1 3031197, 09275168, 9241105, 8117872099, 99906229, 6818035, 8047671284, 6460291166, 7685422115, 3180317 #### [facility] (DEFAULT) [address] [place] [address] 50848 Globulin (S) [Mass/Vol] 3.9 g/dL Normal 1.5-4.3 [facility] Comment on above: Performed By: #### 1 2930006, 94484447, 8501864, 2687248014, 67114567, 3412290, 5775501962, 8312626727, 5359257567, 2156585 #### [facility] (DEFAULT) [address] [place] [address] 32623 Glucose [Mass/Vol] 98.0 mg/dL Normal 74.0-118.0 [facility] Comment on above: Performed By: #### 1 7372198, 32953726, 6818459, 7190096043, 57627898, 7171488, 7801405317, 6231878319, 5692183507, 2368480 #### [facility] (DEFAULT) [address] [place] [address] 97813 Osmolality 274 mOsm/L Invalid Interpretation Code [facility] Comment on above: Performed By: #### 1 5716374, 29556413, 3705570, 1566617814, 77626959, 9117831, 3422196628, 1179628864, 4308523442, 1002690 #### [facility] (DEFAULT) [address] [place] [address] 78330 Potassium [Moles/Vol] 3.5 mmol/L Low 3.6-5.1 [facility] Comment on above: Performed By: #### 1 6248650, 38616884, 8877572, 4528387427, 73259772, 4682105, 4179737875, 7303250169, 7328049819, 5482850 #### [facility] (DEFAULT) [address] [place] [address] 27240 Protein [Mass/Vol] 8.4 g/dL High 6.5-8.1 [facility] Comment on above: Performed By: #### 1 0063402, 12842881, 0154679, 7211542485, 66576214, 2973010, 3703720086, 8408075887, 9744111432, 9999868 #### [facility] (DEFAULT) [address] [place] [address] 69835 Sodium [Moles/Vol] 138.0 mmol/L Normal 136.0-144.0 [facility] Comment on above: Performed By: #### 1 5030236, 24511896, 2632877, 7478212807, 15213517, 2659341, 0950017600, 7254561303, 4032384645, 3175017 #### [facility] (DEFAULT) [address] [place] [address] 63342 Urea nitrogen [Mass/Vol] 7 mg/dL Low 8-26 [facility] Comment on above: Performed By: #### 1 0411531, 03988330, 5243164, 3708660389, 21281258, 8481637, 7588237626, 5339569379, 6674298300, 9656044 #### [facility] (DEFAULT) [address] [place] [address] Urea nitrogen/Creatinine [Mass ratio] 9.0 mg/mg Normal 4.6-16.2 [facility] Comment on above: Performed By: #### 1 3106674, 23865649, 2021640, 8751174249, 39221973, 7077645, 1087132883, 6155776850, 3236394214, 1090895 #### [facility] (DEFAULT) [address] [place] [address] 68354 ED Clinical Summaryon 2021 ED Clinical Summary [facility] - Emergency Department [address] [place] [address] 47887 ED Clinical Summary PERSON INFORMATION Name: DIANE JOYCE Age: 26 Years Sex: FEMALE : 1995 MRN: Acct#: Visit Reason: Vaginal bleeding - < 20 wks ; BLEEDING, Arrival: 03/09/2022 15:56:59 Discharge: 03/09/2022 18:28:00 LOS: 000 02:32 Check In: 03/09/2022 15:56:59 Checkout:03/09/2022 18:28:00 Address: [address] [place] [address] PCP: Provider, None PROVIDER INFORMATION Provider Role [...] or bladder. States that she follows with supplemental nurse in [place] Dr. Min, contacted his office and they [...] intact, SARINA: -Sclera conjunctiva: Unremarkable. NECK: -Supple (yhry-of-[id number]): non-tender. CARD: -Rate and rhythm: Regular -Edema: [...] the patient recommended close follow-up with her supplemental nurse and outpatient beta hCG. In the meantime no strenuous ac (more content not included)... Normal [facility] ED Note - Physicianon 2021 [...] or bladder. States that she follows with supplemental nurse in [place] Dr. Min, contacted his office and they [...] intact, SARINA: -Sclera conjunctiva: Unremarkable. NECK: -Supple (zqdz-jo-swjlu): non-tender. CARD: -Rate and rhythm: Regular -Edema: [...] the patient recommended close follow-up with her supplemental nurse and outpatient beta hCG. In the meantime no strenuous activity, sexual activity if having any worsening issues I recommended he return to the emergency department or going directly to supplemental nurse. Patient indicated she understood was in agreement. [...] AA >60 (more content not included)... Normal [facility] ED Note-Nursingon 03-09-2022 Beta HCG [...] patients second , 1 live . Normal [facility] ED Patient Summaryon 022 ED Patient Summary [facility] - Emergency Department [address] [place], [place] [id number] PATIENT DISCHARGE INSTRUCTIONS Patient Information Name: DIANE JOYCE Age: 26 Years Date of : 1995 [facility]: [id number] Reason For Visit: Vaginal bleeding - < 20 wks ; BLEEDING, Arrival Time: 03/09/2022 15:56:59 Primary Care Physician: Provider, None Attending Physician: Adrian Rosales MD Comment: Visit Diagnosis: Diagnoses This Visit Elevated blood pressure reading (R03.0) First trimester (Z34.91) Threatened miscarriage in early (O20.0) Vaginal bleeding (N93.9) Vaginal bleeding - < 20 wks ([id number]) Prescription Information: If you have been given a prescription for narcotics, seek immediate medical attention if you have any difficulty breathing or any sudden status changes such as confusion and sleepiness. If you or anyone you know is experiencing suicidal thoughts, mental health, alcohol and/or drug addiction problems; contact the [facility] 21/05 Crisis Hotline -Text 6HOXC yj 893351. If you received any narcotics, sedation, or [...] documents With: Address: When: Follow-up with your supplemental nurse for reevaluation next few days. Within 1 to 2 days Comments: Follow-up with supplemental nurse for reevaluation next few days for reevaluation and outpatient quantitative hCG. Return immediately for any worsening issues such as increasing abdominal pains, increasing vaginal bleeding, fevers, or any other problems. With: Address: When: Stephanie Padilla Within 3 to 5 days Comments: Government Affairs Director Medication Information: The exam and treatment you received today in the [facility] Emergency Department were for an urgent problem and are not intended as complete care. It is important for you to follow up with a doctor, nurse practitioner, or physician?s construction management assistant for ongoing care. If your symptoms [...] so we can reach you if necessary. [facility] Emergency Department has provided you with a complete list of medications post discharge. Please inform your implementation director/provider of your visit and for further instruction [...] The sec (more content not included)... Normal [facility] Extra Greenon 03-09-2022 Tube Collected Yes Invalid Interpretation Code [facility] Comment on above: Performed By: #### 1 [id number], [id number], [id number], [id number], [id number], [id number], [id number], [id number], [id number], [id number] #### [facility] (DEFAULT) [address] [place] [address] 15750 PT/PTTon 03-09-2022 INR Coag (PPP) [Relative time] 0.95 {INR} Normal 0.91-1.11 [facility] Comment on above: Performed By: #### 1 [id number], [id number], [id number], [id number], 94489729, [id number], [id number], [id number], [id number], [id number] #### [facility] (DEFAULT) [address] [place] [address] 60265 PT 10.3 second(s) Normal 9.7-11.8 [facility] Comment on above: Performed By: #### 1 [id number], [id number], 9251736, [id number], 48320938, 9383083, [id number], [id number], [id number], [id number] #### [facility] (DEFAULT) [address] [place] [address] 11345 PTT 34 second(s) Normal 25-35 [facility] Comment on above: Performed By: #### 1 [id number], [id number], 3038575, [id number], 45153339, 6866299, [id number], [id number], [id number], [id number] #### [facility] (DEFAULT) [address] [place] [address] 50367 RhIG.on 03-09-2022 RhIG. No. Vials RhI RhIG Candidate?: No Date to Give: [id number] RhIG Status: RhIG Ready Normal [facility] Comment on above: Performed By: #### 1 [id number], [id number], 4414320, [id number], 21128751, 6353970, [id number], [id number], [id number], [id number] ####[facility] (DEFAULT)[address] [place] [address] UA Wvljn4tm 03-09-2022 UA Amorph. 1+ [facility] Comment on above: Order Comment: Urina lysis Microscopic order added on by Discern Expert Rules system. Performed By: #### 5 [id number], [id number], [id number] ####[facility] (DEFAULT)[address] [place] [address] UA Bacteria 2+ [facility] Comment on above: Order Comment: Urina lysis Microscopic order added on by Discern Expert Rules system. Performed By: #### 5 [id number], 8551392, [id number] ####[facility] (DEFAULT)[address] [place] [address] UA Mucous 3+ [facility] Comment on above: Order Comment: Urina lysis Microscopic order added on by Discern Expert Rules system. Performed By: #### 5 [id number], [id number], [id number] ####[facility] (DEFAULT)[address] [place] [address] UA RBC >100 [facility] Comment on above: Order Comment: Urina lysis Microscopic order added on by Discern Expert Rules system. Performed By: #### 5 [id number], [id number], [id number] ####[facility] (DEFAULT)[address] [place] [address] UA Squam Epi Many [facility] Comment on above: Order Comment: Urina lysis Microscopic order added on by Discern Expert Rules system. Result Comment: DMITRY WERNER RN IN ER. RUN UNINALYSIS AND CULTURE ON THIS SPECIMEN. NO RECOLLECT. Performed By: #### 5 [id number], [id number], [id number] ####[facility] (DEFAULT)[address] [place] [address] UA WBC 3-5 [facility] Comment on above: Order Comment: Urina lysis Microscopic order added on by Discern Expert Rules system. Performed By: #### 5 [id number], 9655751, [id number] ####[facility] (DEFAULT)[address] [place] [address] UA w Culture if Ind Standard on 03-09-2022 Breakpoint UA Normal [facility] Comment on above: Performed By: #### 1 [id number], 28871294, 9510388, [id number], 92085319, 4584990, 8518301600, 1717970534, 1008811143, [id number] #### [facility] (DEFAULT) [address] [place] [address]409 Color (U) Yellow Normal [facility] Comment on above: Performed By: #### 1 [id number], 25465803, 7809966, [id number], 45977039, 3278815, 5053912430, 3598283851, 7414124011, 8847724 #### [facility] (DEFAULT) [address] [place] [address] Culture? Indicated Invalid Interpretation Code [facility] Comment on above: Result Comment: Resu lt created by rule GL_MAGR_ADD_UA_CULT Result created by rule GL_MAGR_ADD_UA_CULT Result created by rule GL_MAGR_ADD_UA_CULT1 Result created by rule GL_MAGR_ADD_UA_CULT Performed By: #### 1 [id number], 69431367, 8550724, 5286841278, 06684459, 1152587, 3971823382, 6786486784, 1514349182, 0628549 #### [facility] (DEFAULT) [address] [place] [address] 74793 Glucose (U) [Mass/Vol] Negative Normal [facility] Comment on above: Performed By: #### 1 6496323, 82465031, 1320256, 3210818226, 87930453, 6352716, 7177008281, 8571960952, 1433803792, 7362981 #### [facility] (DEFAULT) [address] [place] [address]301 Ketones Ql (U) 40 Normal [facility] Comment on above: Performed By: #### 1 [id number], 74645733, 9347002, 3209739244, 27157481, 8246052, 4696495831, 0890443146, 0765308243, 0339682 #### [facility] (DEFAULT) [address] [place] [address] Micro? Indicated Invalid Interpretation Code [facility] Comment on above: Result Comment: Resu lt created by rule GL_MAGR_ADD_UA_MICRO Performed By: #### 1 [id number], 70168823, 1035882, 5329243935, 72266462, 6231103, 4363937606, 5499212315, 3405034891, 6208541 #### [facility] (DEFAULT) [address] [place] [address] 85360 UA Bilirubin Negative Normal [facility] Comment on above: Performed By: #### 1 5827621, 77023673, 5227451, 9513496006, 54740721, 1625658, 1240744574, 9642435033, 2327146179, 5466419 #### [facility] (DEFAULT) [address] [place] [address] 48877 UA Blood LARGE Abnormal NEGATIVE [facility] Comment on above: Performed By: #### 1 0865728, 53642949, 3524905, 2234025611, 29870187, 3475071, 7556227166, 3420737739, 6875745521, 9105595 #### [facility] (DEFAULT) [address] [place] [address] 18283 UA Clarity SL CLOUDY Abnormal CLEAR [facility] Comment on above: Performed By: #### 1 1717451, 10102164, 0481288, 7317505366, 78931921, 6644707, 6400899439, 5175699391, 9739222674, 3627249 #### [facility] (DEFAULT) [address] [place] [address] 16554 UA Leuk Est TRACE Abnormal NEGATIVE [facility] Comment on above: Performed By: #### 1 8448453, 87250946, 5107269, 6354475005, 92800475, 5782576, 1138538747, 0461889537, 4140661397, 1406135 #### [facility] (DEFAULT) [address] [place] [address] 11226 UA Nitrite Negative Normal NEGATIVE [facility] Comment on above: Performed By: #### 1 5363001, 65501837, 9687823, 4123693399, 07062796, 1175990, 0011521278, 4721066417, 8121069702, 6043600 #### [facility] (DEFAULT) [address] [place] [address] 81560 UA pH 6.5 Normal 5-8 [facility] Comment on above: Performed By: #### 1 4617959, 58904536, 3949163, 8277909886, 22176474, 8351327, 5417653231, 0440286132, 9952239539, 3967707 #### [facility] (DEFAULT) [address] [place] [address] 39647 UA Protein Negative Normal NEGATIVE [facility] Comment on above: Performed By: #### 1 9947600, 66358530, 3660893, 8640262917, 82782226, 3741614, 6968765750, 6186330897, 0866865579, 2195398 #### [facility] (DEFAULT) [address] [place] [address] 68519 UA Spec Grav 1.015 Normal 1.001-1.035 [facility] Comment on above: Performed By: #### 1 4037961, 47967317, 3103839, 9376613243, 45977754, 0172081, 9740565424, 0294623869, 3681768547, 5115041 #### [facility] (DEFAULT) [address] [place] [address] UA Urobilinogen 0.2 mg/dL Normal 0.2-1.0 [facility] Comment on above: Performed By: #### 1 6920100, 60176870, 3240379, 1820454369, 24127011, 7010089, 7140651489, 3256514027, 6060271926, 4493525 #### [facility] (DEFAULT) [address] [place] [address] Urine Source Clean Catch [facility] Comment on above: Performed By: #### 1 7238345, 24029842, 5408966, 3288321782, 23330397, 7656867, 5478444780, 0320175125, 3373659195, 8342276 #### [facility] (DEFAULT) [address] [place] [address] US 1st Trimesteron 03-09-2022 US 1st Trimester [...] Sebastian Guzman 03/09/22 6:10 pm Technologist: PM [facility] US Transvaginalon 03-09-2022 US Transvaginal EXAM: [...] Guzman 03/09/22 6:10 pm Technologist: PM Normal [facility] hCG Quantitativeon hCG Quantitative 7.1 mIU/mL High 0.0-0.6 [facility] Comment on above: Result Comment: Post -Menopausal Reference Range is: 0.1-11.6 mIU/mL Performed By: #### 1 [id number], 03241976, 5547955, 9978242939, 66012856, 1717731, 8152880594, 0131058955, 0678417895, 3666381 #### [facility] (DEFAULT) [address] [place] [address] Vital Signs Date Time Vital Sign Value Performing Clinician Facility 12-13-2023 15:00-0500 Body mass index (BMI) [Ratio] 46.69 kg/m2 [facility] Nurse [facility] 12-13-2023 15:00-0500 Body weight 123.38 kg [facility] 12-13-2023 15:00-0500 Diastolic blood pressure 78 mm[Hg] [facility] 12-13-2023 15:00-0500 Systolic blood pressure 128 mm[Hg] [facility] 05-15-2023 18:30-0400 Body height 161.29 cm Linsey Witt Other [facility] 05-15-2023 18:30-0400 Body mass index (BMI) [Ratio] 43.41 kg/m2 Linsey Eduar Other [facility] 05-15-2023 18:30-0400 Body temperature 99.2 [degF] Linsey Witt Other [facility] 05-15-2023 18:30-0400 Body weight 112.95 kg Linsey Eduar Other [facility] 05-15-2023 18:30-0400 Respiratory rate 18 /min Linsey Witt Other [facility] 05-15-2023 18:30-0400 SaO2% (BldA) [Mass fraction] 99 % Linsey Witt Other [facility] 05-09-2023 11:00-0400 Body height 161.29 cm Gissel Santana Other [facility] 05-09-2023 11:00-0400 Body mass index (BMI) [Ratio] 43.59 kg/m2 Gissel Santana Other [facility] 05-09-2023 11:00-0400 Body weight 113.4 kg Gissel Santana Other [facility] Other 05-09-2023 11:00-0400 Diastolic blood pressure 83 mm[Hg] Gissel Santana Other [facility] 05-09-2023 11:00-0400 Systolic blood pressure 119 mm[Hg] Gissel Santana Other [facility] 04-12-2023 09:00-0400 Body height 161.29 cm Gissel Santana Other [facility] 04-12-2023 09:00-0400 Body mass index (BMI) [Ratio] 43.59 kg/m2 Gissel Santana Other [facility] Other 04-12-2023 09:00-0400 Body weight 113.4 kg Gissel Santana Other [facility] Other 04-12-2023 09:00-0400 Diastolic blood pressure 88 mm[Hg] iGssel Santana Other [facility] Other 04-12-2023 09:00-0400 Systolic blood pressure 129 mm[Hg] Gissel Santana Other [facility] Other 10-11-2022 02:06-0500 Body weight 111.[address] ESTELLA MIN . [facility] Comment on above: Performed By: #### AFPMAT #### [facility] [address] [place] [address] Dr. Alexsander Dickinson Encounters Encounter Date Encounter [...] 11-06-2023 End: 11-06-2023 ambulatory Gissel Santana Other [facility] Other Start: 11-06-2023 Encounter by donald Santana [facility] Start: 05-22-2023 End: 05-22-2023 ambulatory Olive Howard Other [facility] Other Start: 05-22-2023 Telephone encounter Olive Howard [facility] Start: 05-15-2023 End: 05-15-2023 ambulatory Linsey Witt Facility:[facility] Start: 05-15-2023 End: 05-15-2023 Departed Referred TERESA Witt Work Phone: [facility] [place] Work Phone: Start: 05-15-2023 End: 05-15-2023 ambulatory TERESA Witt Work Phone: [facility] Work Phone: Start: 05-15-2023 Office outpatient vi sit 25 minutes Linsey Witt [facility] Start: 05-09-2023 End: 05-09-2023 ambulatory Gissel Santana Other [facility] Other Start: 05-09-2023 Office outpatient vi sit 15 minutes Gissel Santana [facility] Start: 04-12-2023 End: 04-12-2023 ambulatory Gissel Santana Other [facility] Other Start: 04-12-2023 Encounter for genera l adult medical examination without abnormal findings Gissel Santana [facility] Start: 04-12-2023 Periodic preventive med est patient 18-39 yrs Gissel Santana [facility] Start: 02-15-[address] ESTELLA MIN [...] EDT Routine [facility] [address] [place] [address] Estella Min, [address] [place] [address] [facility] Start: 12-13-2023 End: 12-13-2024 ABO/Rh ABO/Rh Lab Routine Missed menses Expected: 12/13/2023 (Approximate), Expires: 12/13/2024 [facility] Comment on above: Expected: 12/13/2023 (Approximate), [...] Missed menses Expected: 12/13/2023 (Approximate), Expires: 12/13/2024 [facility] Comment on above: Expected: 12/13/2023 (Approximate), Expires: 12/13/2024 Start: 12-13-2023 End: 12-13-2024 US Pelvis transvaginal US OB transvaginal Imaging Routine Missed menses Expected: 12/13/2023 (Approximate), Expires: 12/13/2024 [facility] Comment on above: Expected: 12/13/2023 (Approximate), Expires: 12/13/2024 Start: 05-15-2023 Throat culture Throat Culture [facility] Bacteria identified in Urine by Culture Urine culture Microbiology Routine Missed menses Ordered: 12/13/2023 [facility] Comment on above: Ordered: 12/13/2023 CBC W Auto Different ial panel - Blood CBC and differential Lab Routine Missed menses Ordered: 12/13/2023 [facility] Comment on above: Ordered: 12/13/2023 Hemoglobin A1c/Hemoglobin.total in Blood Hemoglobin A1c Lab Routine Missed menses Ordered: 12/13/2023 [facility] Comment on above: Ordered: 12/13/2023 Hepatitis B virus surface Ag [Presence] in Serum or Plasma by Immunoassay Hepatitis B surface antigen Lab Routine Missed menses Ordered: 12/13/2023 [facility] Comment on above: Ordered: 12/13/2023 Hepatitis C virus Ab [Presence] in Serum or Plasma by Immunoassay Hepatitis C antibody Lab Routine Missed menses Ordered: 12/13/2023 [facility] Comment on above: Ordered: 12/13/2023 HIV-1/HIV-2 antigen/antibody combination immunoassay HIV-1 and HIV-2 antibodies Lab Routine Missed menses Ordered: 12/13/2023 [facility] Comment on above: Ordered: 12/13/2023 Reagin Ab [Presence] in Serum by RPR RPR Lab Routine Missed menses Ordered: 12/13/2023 [facility] Comment on above: Ordered: 12/13/2023 Rubella antibody, IgG Rubella an tibody, IgG Lab Routine Missed menses Ordered: 12/13/2023 [facility] Comment on above: Ordered: 12/13/2023 Payers Date Payer Category Payer Unknown BCBS BCBS xxxxxx [id number] 2020-Present [phone] [address] [place] [address] [id number]. [id number] 1994 Unknown [id number] 2.16.840.1.918262.3.579.2.593 1994 Unknown [id number] 2.16.840.1.868963.3.579.2.593 1994 Unknown [id number] 2.16.840.1.027627.3.579.2.593 1994 Unknown [id number] 2.16.840.1.214943.3.579.2.593 1994 Unknown [id number] 2.16.840.1.405381.3.579.2.593 1994 Unknown [id number] 2.16.840.1.471580.3.579.2.593 1994 Unknown [id number] 2.16.840.1.425852.3.579.2.593 1994 Unknown [id number] 2.16.840.1.319138.3.579.2.593 1994 Unknown [id number] 2.16.840.1.594318.3.579.2.593 1994 Unknown [id number] 2.16.840.1.609336.3.579.2.593 1994 Unknown [id number] 2.16.840.1.319746.3.579.2.593 1994 Unknown [id number] 2.16.840.1.495895.3.579.2.593 1994 Unknown [id number] 2.16.840.1.393112.3.579.2.593 1994 Unknown [id number] 2.16.840.1.894899.3.579.2.593 1994 Unknown [id number] 2.16.840.1.413663.3.579.2.593 1994 Unknown [id number] 2.16.840.1.694527.3.579.2.593 1994 Unknown [id number] 2.16.840.1.718405.3.579.2.593 1994 Unknown [id number] 2.16.840.1.077595.3.579.2.593 1994 Unknown [id number] 2.16.840.1.434720.3.579.2.593 1994 Unknown [id number] 2.16.840.1.515354.3.579.2.593 1994 Unknown [id number] 2.16.840.1.023054.3.579.2.593 1994 Unknown [id number] 2.16.840.1.265032.3.579.2.593 1994 Unknown [id number] 2.16.840.1.793903.3.579.2.593 1994 Unknown [id number] 2.16.840.1.640971.3.579.2.593 1994 Unknown [id number] 2.16.840.1.138958.3.579.2.1259 1994 Unknown [id number] 2.16.840.1.672086.3.579.2.1259 1994 Unknown [id number] 2.16.840.1.372424.3.579.2.1259 1994 Unknown [id number] 2.16.840.1.362686.3.579.2.1259 1994 Unknown [id number] 2.16.840.1.090122.3.579.2.1259 1994 Unknown [id number] 2.16.840.1.816895.3.579.2.1259 1994 Unknown [id number] 2.16.840.1.329652.3.579.2.1259 1994 Unknown [id number] 2.16.840.1.039733.3.579.2.1259 1959 Self-pay 1960 Unknown [id number] Unknown [id number] 2.16.840.1.423399.3.579.2.593 Unknown [id number] 2.16.840.1.237381.3.579.2.531 Social History Date Type Detail Facility Unknown if ever smoked [facility] [address] [facility] Other Start: 03-12-2023 Sex Assigned At N [facility] [address] [facility] Other Start: 1995 Sex Assigned At Female F [facility] Start: 03-12-2023 Tobacco smoking status NHIS [...] or undercooked meat, and stay away from [facility]. Patient has also been advised to not [...] Meenakshi Rosenthal MA documented in this encounter [facility] 05-15-2023 Evaluation note Encounter Date [...] understanding and is agreeable to treatment plan. [facility] 07-12-2023 Evaluation note* Encounter Date Diagnosis Assessment Notes Treatment Notes Treatment Clinical Notes Apr, Anxiety disorder, unspecified (ICD-10 - F41.9) Pt states that she, and her , agree that she is doing better on the medication. Continues to have stress, but is dealing more appropriately. Would like to continue this med and this dose. f/u6 months, sooner if needed. [facility] Other 06-15-2023 Evaluation note* Encounter Date Diagnosis [...] help for overwhelm. followup in 1 month [facility] Other 05-12-2022 NoteEducation Materials Cardiovascular Hypertension, Adult [...] without skin, beans, e (more content not included)...[facility] noteNo assessment information availableGuernsey [facility] Work Phone: Evaluation noteNo InformationNortChildren[facility] [address] [facility] Other Evaluation note* Diagnosis Missed menses documented in this encounter [facility] - [facility]orted* Type Description Date Surgical History C-sect 2019 Surgical History C-sect 2022 [facility] Other History general Narrative - Reported* Type Description Date Medical History Anxiety disorder, unspecified Surgical History C-sect 2019 Surgical History C-sect 2022 Hospitalization History SEE SURGICAL [facility] Other History general Narrative - Reported* Type Description Date Medical History Anxiety disorder, unspecified Medical History Gestational diabetes Surgical History C-sect 2019 Surgical History C-sect 2022 Hospitalization History SEE SURGICAL [facility] Other Summary Purpose Family History No Family History Records FoundNo Family History Records FoundNo Family History Records FoundNo Family History Records Found Advance Directives No Advanced Directives Records FoundNo Advanced Directives Records FoundNo Advanced Directives Records FoundNo Advanced Directives Records Found Additional Source Comments INFORMATION SOURCE (unrecogn ized section and content) DATE CREATED AUTHOR 03/18/2022 [facility] l DATE CREATED AUTHOR AUTHOR'S ORGANIZ ATION 02/15/2023 [facility] DATE CREATED AUTHOR AUTHOR'S ORGANIZ ATION 05/24/2023 [facility] DATE CREATED AUTHOR AUTHOR'S ORGANIZ ATION 06/07/2024 [facility] EPIC REASON FOR VISIT (unrecogniz ed section and content) Reason Comments Amenorrhea Care Teams (unrecognized sec tion and content) Team Status: Inactive Member Role Status Dates Linsey Witt APRN Attending Provider Active Cigarette Tester Relationship Specialty Start Date End Date Gissel Santana MD [address] [place] [address] PCP - General Family Medicine [...] BE BASED ON THE PRIMARY CLINICAL RECORDS. [facility]. provides no warranty or guarantee of the accuracy or completeness of information in this document.
[2024-06-21 10:57] VITALS: BP 135/79; PULSE 92; TEMP 36.3
== END 2024-06-21 11:23 | disposition home or self-care (01) ==
LOC: FBCO 06:40 → FBC 10:47
PROVIDERS: Visit Provider Obstetrics & Gynecology
DX: O24.419 Gestational diabetes mellitus in pregnancy, unspecified control (principal)
CPT/HCPCS: 59025

== ENCOUNTER 2024-06-25 06:58 | Outpatient (OUT) | payer BC, SELFPAY ==
--- NOTE | 2024-06-25 | US_ITS ---
[address] [address] Patient Name: VADIM CONSTANTINO MRN: [id number] date: 1995 Sex: F Assigned Patient Location: [facility] Current Patient Location: LAB Accession/Order Number: [id number] Exam Date: 06/25/2024 11:07 Report Date: 06/25/2024 12:22 At the request of: ESTELLA BUENO Procedure: US OB BPP w non-stress EXAMINATION: US OB BPP w non-stress HISTORY: GESTATIONAL DIABETES MELITUS O24.419 COMPARISON: No relevant comparison available. TECHNIQUE: Ultrasound biophysical profile was performed in the radiology department. non-reactive stress testing was performed by nursing staff in the birthing center. FINDINGS: BREATHING MOVEMENTS: 2 GROSS BODY MOVEMENTS: 2 TONE: 2 QUALITATIVE AMNIOTIC FLUID VOLUME: 2 PRESENTATION: CEPHALIC HEART RATE: 150.84 bpm AMNIOTIC FLUID VOLUME: 13.6 cm GESTATIONAL AGE: 36 weeks 6 days US/US OB BPP w non-stress IMPRESSION: Total biophysical profile score: 8 Electronically authenticated by: SEBASTIAN HENRY Date: 06/25/2024 12:22
--- OUTSIDE RECORDS SUMMARY | 2024-06-25 07:00 | XMS_ITS | CCD ---
Author Organization [facility] Care Team Providers Care Enchilada Maker Name Role Phone MECHELLE ., DR SORIA [...] Unavailable MECHELLE ., DR SORIA Admitting Unavailable Wapello, Sebastian Consulting Unavailable SANTANA, DR GISSEL Teresa [...] Health[facility] re Preg Test, Ur Positive [facility] Health[facility] e Urinalysis macro (dipstick) panel (U)on 12-13-2023 Bilirubin, UA Negative Negative - 4(70) +++ mg/dL [facility] Blood, UA Negative Negative - 50 Sal/mcL [facility] Clarity, UA Clear [facility] Sora[facility] re Color, UA Yellow [facility] [employer] e Glucose, UA Negative Negative - 1999(110) ++++ mg/dL [facility] Interpretation and review of laboratory results Abnormal [facility] re Ketones, UA Positive Negative - 160(16) ++++ mg/dL [facility] Leukocytes, UA Negative Negative - 500+++ Lizzy/mcL [facility] Nitrite, UA Negative Negative - Positive [facility] pH, UA 7.0 5 - 9 [facility] [employer] Protein, UA Positive Negative - 1999(20) ++++ mg/dL [facility] Spec Grav, UA 1.030 1 - 1.03 [facility] Urobilinogen, UA 0.2 0.2 - 12 mg/dL [facility] Quick Strepon 05-15-2023 S. pyogenes Org specific cx Ql (Throat) Negative [employer] Other Quick Strep [employer] Other Throat Cultureon 05-15-2023 Throat culture Heavy Normal Respiratory John 2 Days PERFORMED BY: [facility] [address] [address] PATHOLOGIST HOME HEALTH SPEECH THERAPIST ARACELI HAYWOOD M.D. Normal [facility] Comment on above: Performed By: #### C UT #### [facility] [address] GROUP B STREP CULTUREon 01-27 S. [...] S F Tetracycline <=0.25 S F Normal [facility] Comment on above: Performed By: #### A FPMAT #### [facility] [address] [place] [address] Dr. Alexsander Dickinson CBC AUTO DIFFon 02-02-2023 BASO # 0.0 103/ul Normal 0.0-0.1 [facility] Comment on above: Performed By: #### C BC #### [facility] [address] [place] [address] Dr. Alexsander Dickinson Basophils/100 WBC (Bld) 0.2 % Normal 0.2-2.0 [facility] Comment on above: Performed By: #### C BC #### [facility] [address] [place] [address] Dr. Alexsander Dickinson EO # 0.0 103/ul Normal 0.0-0.7 [facility] Comment on above: Performed By: #### C BC #### [facility] [address] [place] [address] Dr. Alexsander Dickinson Eosinophils/100 WBC (Bld) 0.0 % Critically low 0.9-7.0 [facility] Comment on above: Performed By: #### C BC #### [facility] [address] [place] [address] Dr. Alexsander Dickinson Erythrocyte distribution width (RBC) [Ratio] 12.5 % Normal 11.0-15.0 [facility] Comment on above: Performed By: #### C BC #### [facility] [address] [address] [address] Alexsander Dickinson Hematocrit (Bld) [Volume fraction] 32.9 % Critically low 36.0-48.0 [facility] Comment on above: Performed By: #### C BC #### [facility] [address] [address] [address] Alexsander Dickinson Hemoglobin (Bld) [Mass/Vol] 10.7 g/dL Critically low 12.0-16.0 [facility] Comment on above: Performed By: #### C BC #### [facility] [address] [place] [address] Dr. Alexsander Dickinson IG # 0.12 10e3/ul Critically high 0.00-0.03 [facility] Comment on above: Performed By: #### C BC #### [facility] [address] [place] [address] Dr. Alexsander Dickinson IG % 0.7 % Critically high 0.0-0.5 [facility] Comment on above: Performed By: #### C BC #### [facility] [address] [place] [address] Dr. Alexsander Dickinson LYMPH # 1.1 103/ul Critically low 1.2-3.[address] [facility] Comment on above: Performed By: #### C BC #### [facility] [address] [place] [address] Dr. Alexsander Dickinson Lymphocytes/100 WBC (Bld) 6.4 % Critically low 20.5-60.0 [facility] Comment on above: Performed By: #### C BC #### [facility] [address] [address] [address] Alexsandre Dickinson MANUAL DIFF REQ NO Normal [facility] Comment on above: Performed By: #### C BC #### [facility] [address] [place] [address] Dr. Alexsander Dickinson MCH (RBC) [Entitic mass] 26.1 pg Critically low 26.7-34.0 [facility] Comment on above: Performed By: #### C BC #### [facility] [address] [address] [address] Alexsander Dickinson MCHC (RBC) [Mass/Vol] 32.5 g/dL Normal 29.9-35.2 [facility] Comment on above: Performed By: #### C BC #### [facility] [address] [address] [address] Alexsander Dickinson MCV (RBC) [Entitic vol] 80.2 fL Critically low 81.0-99.0 [facility] Comment on above: Performed By: #### C BC #### [facility] [address] [address] [address] Alexsander Dickinson MONO # 0.4 103/ul Normal 0.3-0.8 [facility] Comment on above: Performed By: #### C BC #### [facility] [address] [address] [address] Alexsander Dickinson Monocytes/100 WBC (Bld) 2.1 % Normal 1.7-12.0 [facility] Comment on above: Performed By: #### C BC #### [facility] [address] [address] [address] Alexsander Dickinson NEUT # 15.5 103/ul Critically high 1.4-6.5 [facility] Comment on above: Performed By: #### C BC #### [facility] [address] [address] [address] Alexsander Dickinson Neutrophils/100 WBC (Bld) 90.6 % Critically high 43.0-75.0 [facility] Comment on above: Performed By: #### C BC #### [facility] [address] [address] [address] Alexsander Dickinson Platelet mean volume (Bld) [Entitic vol] 10.7 fL Normal 9.5-13.5 [facility] Comment on above: Performed By: #### C BC #### [facility] [address] [address] [address] Alexsander Dickinson PLT 310 103/ul Normal 150-450 [facility] Comment on above: Performed By: #### C BC #### [facility] [address] [address] [address] Alexsander Dickinson RBC 4.10 106/ul Critically low 4.20-5.40 [facility] Comment on above: Performed By: #### C BC #### [facility] [address] [place] [address] Dr. Alexsander Dickinson WBC 17.1 103/ul Critically high 4.0-11.0 [facility] Comment on above: Performed By: #### C BC #### [facility] [address] [place] [address] Dr. Alexsander Dickinson CBC AUTO DIFFon 02-01-2023 BASO # 0.0 103/ul Normal 0.0-0.1 [facility] Comment on above: Performed By: #### A 1C #### [facility] [address] [place] [address] Dr. Alexsander Dickinson Basophils/100 WBC (Bld) 0.2 % Normal 0.2-2.0 [facility] Comment on above: Performed By: #### A 1C #### [facility] [address] [place] [address] Dr. Alexsander Dickinson EO # 0.0 103/ul Normal 0.0-0.7 [facility] Comment on above: Performed By: #### A 1C #### [facility] [address] [place] [address] Dr. Alexsander Dickinson Eosinophils/100 WBC (Bld) 0.4 % Critically low 0.9-7.0 [facility] Comment on above: Performed By: #### A 1C #### [facility] [address] [place] [address] Dr. Alexsander Dickinson Erythrocyte distribution width (RBC) [Ratio] 12.9 % Normal 11.0-15.0 [facility] Comment on above: Performed By: #### A 1C #### [facility] [address] [place] [address] Dr. Alexsander Dickinson Hematocrit (Bld) [Volume fraction] 34.2 % Critically low 36.0-48.0 [facility] Comment on above: Performed By: #### A 1C #### [facility] [address] [address] [address] Alexsander Dickinson Hemoglobin (Bld) [Mass/Vol] 11.4 g/dL Critically low 12.0-16.0 [facility] Comment on above: Performed By: #### A 1C #### [facility] [address] [address] [address] Alexsander Dickinson IG # 0.04 10e3/ul Critically high 0.00-0.03 [facility] Comment on above: Performed By: #### A 1C #### [facility] [address] [address] [address] Alexsander Dickinson IG % 0.5 % Normal 0.0-0.5 [facility] Comment on above: Performed By: #### A 1C #### [facility] [address] [address] [address] Alexsander Dickinson LYMPH # 2.1 103/ul Normal 1.2-3.8 [facility] Comment on above: Performed By: #### A 1C #### [facility] [address] [place] [address] Dr. Alexsander Dickinson Lymphocytes/100 WBC (Bld) 23.9 % Normal 20.5-60.0 [facility] Comment on above: Performed By: #### A 1C #### [facility] [address] [place] [address] Dr. Alexsander Dickinson MANUAL DIFF REQ NO Normal [facility] Comment on above: Performed By: #### A 1C #### [facility] [address] [address] [address] Alexsander Dickinson MCH (RBC) [Entitic mass] 27.0 pg Normal 26.7-34.0 [facility] Comment on above: Performed By: #### A 1C #### [facility] [address] [place] [address] Dr. Alexsander Dickinson MCHC (RBC) [Mass/Vol] 33.3 g/dL Normal 29.9-35.2 [facility] Comment on above: Performed By: #### A 1C #### [facility] [address] [address] [address] Alexsander Dickinson MCV (RBC) [Entitic vol] 81.0 fL Normal 81.0-99.0 [facility] Comment on above: Performed By: #### A 1C #### [facility] [address] [address] [address] Alexsander Dickinson MONO # 0.5 103/ul Normal 0.3-0.8 [facility] Comment on above: Performed By: #### A 1C #### [facility] [address] [place] [address] Dr. Alexsander Dickinson Monocytes/100 WBC (Bld) 6.0 % Normal 1.7-12.0 [facility] Comment on above: Performed By: #### A 1C #### [facility] [address] [place] [address] Dr. Alexsander Dickinson NEUT # 5.9 103/ul Normal 1.4-6.5 [facility] Comment on above: Performed By: #### A 1C #### [facility] [address] [place] [address] Dr. Alexsander Dickinson Neutrophils/100 WBC (Bld) 69.0 % Normal 43.0-75.0 [facility] Comment on above: Performed By: #### A 1C #### [facility] [address] [place] [address] Dr. Alexsander Dickinson Platelet mean volume (Bld) [Entitic vol] 10.5 fL Normal 9.5-13.5 [facility] Comment on above: Performed By: #### A 1C #### [facility] [address] [place] [address] Dr. Alexsander Dickinson PLT 275 103/ul Normal 150-450 [facility] Comment on above: Performed By: #### A 1C #### [facility] [address] [place] [address] Dr. Alexsander Dickinson RBC 4.22 106/ul Normal 4.20-5.40 [facility] Comment on above: Performed By: #### A 1C #### [facility] [address] [address] [address] Alexsander Dickinson WBC 8.6 103/ul Normal 4.0-11.0 [facility] Comment on above: Performed By: #### A 1C #### [facility] [address] [place] [address] Dr. Alexsander Dickinson LDHon 02-01-2023 LDH 124 U/L Normal 81-234 [facility] Comment on above: Performed By: #### C MP, LDH, URIC #### [facility] [address] [place] [address] Dr. Alexsander Dickinson POINT OF CARE GLUCOSEon Glucose [Mass/Vol] 98 mg/dL Normal 74-106 [facility] Comment on above: Performed By: #### A 1C #### [facility] [address] [place] [address] Dr. Alexsander Dickinson PROF 14(COMP METB)on 023 Albumin [Mass/Vol] 2.5 g/dL Critically low 3.4-5.0 [facility] Comment on above: Performed By: #### C MP, LDH, URIC #### [facility] [address] [place] [address] Dr. Alexsander Dickinson Albumin/Globulin [Mass ratio] 0.6 {ratio} Normal [facility] Comment on above: Performed By: #### C MP, LDH, URIC #### [facility] [address] [place] [address] Dr. Alexsander Dickinson ALP [Catalytic activity/Vol] 138 U/L Critically high 46-116 [facility] Comment on above: Performed By: #### C MP, LDH, URIC #### [facility] [address] [place] [address] Dr. Alexsander Dickinson ALT [Catalytic activity/Vol] 15 U/L Normal 14-59 [facility] Comment on above: Performed By: #### C MP, LDH, URIC #### [facility] [address] [place] [address] Dr. Alexsander Dickinson Anion gap [Moles/Vol] 14.5 mmol/L Normal [facility] Comment on above: Performed By: #### C MP, LDH, URIC #### [facility] [address] [address] [address] Alexsander Dickinson AST [Catalytic activity/Vol] 8 U/L Critically low 15-37 [facility] Comment on above: Performed By: #### C MP, LDH, URIC #### [facility] [address] [place] [address] Dr. Alexsander Dickinson Bilirubin [Mass/Vol] 0.2 mg/dL Normal 0.2-1.0 [facility] Comment on above: Performed By: #### C MP, LDH, URIC #### [facility] [address] [place] [address] Dr. Alexsander Dickinson Calcium [Mass/Vol] 8.6 mg/dL Normal 8.5-10.1 [facility] Comment on above: Performed By: #### C MP, LDH, URIC #### [facility] [address] [place] [address] Dr. Alexsander Dickinson Chloride [Moles/Vol] 103 mmol/L Normal 98-107 [facility] Comment on above: Performed By: #### C MP, LDH, URIC #### [facility] [address] [place] [address] Dr. Alexsander Dickinson CO2 [Moles/Vol] 23.7 mmol/L Normal 21.0-32.0 [facility] Comment on above: Performed By: #### C MP, LDH, URIC #### [facility] [address] [place] [address] Dr. Alexsander Dickinson Creatinine [Mass/Vol] 0.61 mg/dL Normal 0.55-1.02 [facility] Comment on above: Performed By: #### C MP, LDH, URIC #### [facility] [address] [place] [address] Dr. Alexsander Dickinson EGFR-AF TOGOLESE >60 Normal >=60 [facility] Comment on above: Performed By: #### C MP, LDH, URIC #### [facility] [address] [place] [address] Dr. Alexsander Dickinson EGFR-NON AF TOGOLESE >60 Normal >=60 [facility] Comment on above: Performed By: #### C MP, LDH, URIC #### [facility] [address] [address] [address] Alexsander Dickinson Globulin (S) [Mass/Vol] 4.1 g/dL Normal [facility] Comment on above: Performed By: #### C MP, LDH, URIC #### [facility] [address] [address] [address] Alexsander Dickinson Glucose [Mass/Vol] 123 mg/dL Critically high 74-[address] [facility] Comment on above: Performed By: #### C MP, LDH, URIC #### [facility] [address] [address] [address] Alexsander Dickinson Potassium [Moles/Vol] 4.2 mmol/L Normal 3.5-5.1 [facility] Comment on above: Performed By: #### C MP, LDH, URIC #### [facility] [address] [place] [address] Dr. Alexsander Dickinson Protein [Mass/Vol] 6.6 g/dL Normal 6.4-8.2 [facility] Comment on above: Performed By: #### C MP, LDH, URIC #### [facility] [address] [place] [address] Dr. Alexsander Dickinson Sodium [Moles/Vol] 137 mmol/L Normal 136-145 [facility] Comment on above: Performed By: #### C MP, LDH, URIC #### [facility] [address] [place] [address] Dr. Alexsander Dickinson Urea nitrogen [Mass/Vol] 5.0 mg/dL Critically low 7.0-18.0 [facility] Comment on above: Performed By: #### C MP, LDH, URIC #### [facility] [address] [place] [address] Dr. Alexsander Dickinson Urea nitrogen/Creatinine [Mass ratio] 8.2 mg/mg Normal [facility] Comment on above: Performed By: #### C MP, LDH, URIC #### [facility] [address] [place] [address] Dr. Alexsander Dickinson PROTIMEon 02-01-2023 INR Coag (PPP) [Relative time] {INR} Normal [facility] Comment on above: Performed By: #### H BSANS #### [facility] [address] [place] [address] Dr. Alexsander Dickinson INR GUIDELINES SEE BELOW Normal [facility] Comment on above: Result Comment: CAROLEE RED INR: 2.0 - 3.0 CONDITIONS NOT LISTED BELOW 2.5 - 3.5 FOR PROSTHETIC HEART VALVE REPLACEMENT 2.5 - 3.5 RECURRENT THROMBOSIS Performed By: #### H BSANS #### [facility] [address] [place] [address] Dr. Alexsander Dickinson PT Coag (PPP) [Time] 9.2 s Normal 9.0-11.6 [facility] Comment on above: Performed By: #### H BSANS #### [facility] [address] [place] [address] Dr. Alexsander Dickinson PTTon 02-01-2023 aPTT Coag (Bld) [Time] 25.9 s Normal 22.3-36.2 [facility] Comment on above: Performed By: #### H BSANS #### [facility] [address] [place] [address] Dr. Alexsander Dickinson TYPE AND SCREENon 02-01-2023 TYPE AND SCREEN Negative Normal [facility] Comment on above: Performed By: #### A FPMAT #### [facility] [address] [place] [address] Dr. Alexsander Dickinson URIC ACID SERUMon 02-01-2023 Urate [Mass/Vol] 5.5 mg/dL Normal 2.6-6.0 [facility] Comment on above: Performed By: #### C MP, LDH, URIC #### [facility] [address] [place] [address] Dr. Alexsander Dickinson US PREG BIOPHY W [...] by: DEE GALLEGOS Date: 2023-02-01 15:04 Normal [facility] US PREG BIOPHY W NON [...] Medical [facility] PREG BIOPHY W NON STRESSo n 01-19-2023 [...] by: DEE GALLEGOS Date: 2023-01-19 06:16 Normal [facility] US PREG BIOPHY W NON [...] DEE GALLEGOS Date: 2023-01-11 15:38 Normal [facility] US PREG GROWTHon 01-11-2023 US PREG [...] DEE GALLEGOS Date: 2023-01-11 16:42 Normal [facility] GTT 3 HR PREGon 12-01-2022 Glucose [Mass/Vol] 104 mg/dL Normal 74-106 [facility] Comment on above: Performed By: #### A 1C #### [facility] [address] [address] [address] Alexsander Dickinson Glucose [Mass/Vol] 182 mg/dL Normal [facility] Comment on above: Performed By: #### A 1C #### [facility] [address] [address] [address] Alexsander Dickinson Glucose [Mass/Vol] 114 mg/dL Normal [facility] Comment on above: Performed By: #### A 1C #### [facility] [address] [address] [address] Alexsander Dickinson Glucose [Mass/Vol] 73 mg/dL Normal [facility] Comment on above: Performed By: #### A 1C #### [facility] [address] [address] [address] Alexsander Dickinson PAP ACOG PANEL 2: 20 to 28on 11-18-2022 . . Normal [facility] Comment on above: Performed By: #### A 1C #### [facility] [address] [address] [address] Alexsander Dickinson Age Gdln ACOG Testing - [facility] Comment on above: Performed By: #### A 1C #### [facility] [address] [address] [address] Alexsander Dickinson DIAGNOSIS: Comment [facility] Comment on above: Result Comment: NEGA TIVE FOR INTRAEPITHELIAL LESION OR MALIGNANCY. Performed By: #### A 1C #### [facility] [address] [place] [address] Dr. Alexsander Dickinson Methodology: Comment [facility] Comment on above: Result Comment: This liquid based ThinPrep(R) pap test was screened with the use of an image guided system. Performed By: #### A 1C #### [facility] [address] [place] [address] Dr. Alexsander Dickinson Note: Comment [facility] Comment on above: Result Comment: The Pap smear is a screening test designed to aid in the detection of premalignant and malignant conditions of the uterine cervix. It is not a diagnostic procedure and should not be used as the sole means of detecting cervical cancer. Both false-positive and false-negative reports do occur. . Performed By: #### A 1C #### [facility] [address] [address] [address] Alexsander Dickinson Performed by: Comment Normal [facility] Comment on above: Result Comment: Cici Clarke, Newspaper Peddler (ASCP) Performed By: #### A 1C #### [facility] [address] [place] [address] Dr. Alexsander Dickinson Reflex Criteria: Comment [facility] Comment on above: Result Comment: The HPV DNA reflex criteria were not met with this specimen result therefore, no HPV testing was performed. . Performed By: #### A 1C #### [facility] [address] [place] [address] Dr. Alexsander Dickinson Specimen adequacy: Comment Normal [facility] Comment on above: Result Comment: Sati sfactory for evaluation. No endocervical component is identified. Performed By: #### A 1C #### [facility] [address] [place] [address] Dr. Alexsander Dickinson CHLAMYDIA/GONOCOCCUS ZUNILDA (SW AB/URINE/PAPon 11-17-2022 Chlamydia trachomatis, ZUNILDA Negative Normal Negative [facility] Comment on above: Performed By: #### A 1C #### [facility] [address] [place] [address] Dr. Alexsander Dickinson Neisseria gonorrhoeae, ZUNILDA Negative Normal Negative [facility] Comment on above: Performed By: #### A 1C #### [facility] [address] [place] [address] Dr. Alexsander Dickinson VAGINITIS/VAGINOSIS DNA PROB Jose De Jesus 11-16-2022 Reema species Negative Normal Negative [facility] Comment on above: Performed By: #### V AGINT #### [facility] [address] [place] [address] Dr. Alexsander Dickinson Gardnerella vaginalis Negative Normal Negative [facility] Comment on above: Performed By: #### V AGINT #### [facility] [address] [place] [address] Dr. Alexsander Dickinson Trichomonas vaginalis Negative Normal Negative [facility] Comment on above: Performed By: #### V AGINT #### [facility] [address] [place] [address] Dr. Alexsander Dickinson US PREG INCOMPLETE ANATOMYon 11-14-2022 US PREG INCOMPLETE ANATOMY EXAMINATION: US PREG INCOMPLETE ANATOMY HISTORY: screening COMPARISON: No relevant comparison available. FINDINGS: Heart rate: 150 bpm position: Variable Anatomy: 4.8 x 5.8 mm choroid plexus cyst is again identified IMPRESSION: Stable choroid plexus cyst Electronically authenticated by: SEBASTIAN HENRY Date: 2022-11-14 16:19 Normal [facility] FREE T4on 10-19-2022 Free T4 [Mass/Vol] 0.89 ng/dL Normal 0.76-1.46 [facility] Comment on above: Performed By: #### H BSANS #### [facility] [address] [place], [place] [address] Dr. Alexsander Dickinson TSHon 10-19-2022 TSH 1.303 uIU/mL Normal 0.358-3.740 [facility] Comment on above: Performed By: #### H BSANS #### [facility] [address] [place], [place] [address] Dr. Alexsander Dickinson US PREG ANATOMY SINGLEon [...] DEE GALLEGOS Date: 2022-10-17 20:42 Normal [facility] AFP MATERNAL FOR SPINA BIFID Aon 10-11-2022 AFP MoM 1.49 Normal [facility] Comment on above: Performed By: #### A FPMAT #### [facility] [address] [place] [address] [address] Alexsander Dickinson AFP Value 60.8 ng/mL Normal [facility] Comment on above: Performed By: #### A FPMAT #### [facility] [address] [place] [address] [address] Alexsander Dickinson AFP, Serum for Spina Bifida Report Normal [facility] Comment on above: Performed By: #### A FPMAT #### [facility] [address] [place] [address] [address] Alexsander Dickinson Comment Comment Normal [facility] Comment on above: Result Comment: Niurka Patricia, Ph.D., [facility] Director . References: Available Upon Request. . Multiples Of Median Cutoffs For AFP Elevations Fonseca 2.5 Black 2.8 IDD 2.0 Twins 4.5 Abbreviation Definitions IDD - Insulin Dep Diabetes OSBR - Open Spina Bifida Risk . For further inquiries contact [employer] [facility] at [phone]. . This test was developed and its performance characteristics determined by [employer]. It has not been cleared or approved by the Food and Drug Administration. Performed By: #### A FPMAT #### [facility] [address] [place] [address] Dr. Alexsander Tiwari Age Collection Date 19.4 weeks Normal [facility] Comment on above: Performed By: #### A FPMAT #### [facility] [address] [place], [place] [id number] Dr. Alexsander Dickinson Gestat, Age Based on NILE [facility] Comment on above: Result Comment: 02/2023 Recalculations are not recommended when gestational dating by LMP and ultrasound are within 10 days. Performed By: #### A FPMAT #### [facility] [address] [place] [address] Dr. Alexsander Dickinson Insulin Dep Diabetes No Normal [facility] Comment on above: Performed By: #### A FPMAT #### [facility] [address] [place] [address] Dr. Alexsander Dickinson Interpretation Comment Normal [facility] Comment on above: Result Comment: Inte [...] Customer Services to discuss available options. The [employer] recommends amniocentesis be offered to women age 35 and older. Performed By: #### A FPMAT #### [facility] [address] [place] [address] Dr. Alexsander Dickinson [age] Normal [facility] Comment on above: Performed By: #### A FPMAT #### [facility] [address] [place] [address] Dr. Alexsander Dickinson Multiple Gestation No Normal [facility] Comment on above: Performed By: #### A FPMAT #### [facility] [address] [place] [address] Dr. Alexsander Dickinson OSBR Risk 1 [place] [address] [facility] Comment on above: Performed By: #### A FPMAT #### [facility] [address] [place] [address] Dr. Alexsander Dickinson PDF . Normal [facility] Comment on above: Performed By: #### A FPMAT #### [facility] [address] [place] [address] Dr. Alexsander Dickinson Race Normal [facility] Comment on above: Performed By: #### A FPMAT #### [facility] [address] [place] [address] Dr. Alexsander Dickinson Test Results: Negative Normal [facility] Comment on above: Performed By: #### A FPMAT #### [facility] [address] [place] [address] Dr. Alexsander Dickinson GTT 3 HR PREGon 09-29-2022 Glucose [Mass/Vol] 99 mg/dL Normal 74-106 [facility] Comment on above: Performed By: #### A FPMAT #### [facility] [address] [place] [address] [address] Alexsander Dickinson Glucose [Mass/Vol] 173 mg/dL Normal [facility] Comment on above: Performed By: #### A FPMAT #### [facility] [address] [place] [address] [address] Alexsander Dickinson Glucose [Mass/Vol] 151 mg/dL Normal [facility] Comment on above: Performed By: #### A FPMAT #### [facility] [address] [place] [address] Dr. Alexsander Dickinson Glucose [Mass/Vol] 76 mg/dL Normal [facility] Comment on above: Performed By: #### A FPMAT #### [facility] [address] [place] [address] Dr. Alexsander Dickinson GLUCOSE - 1HRon 09-20-2022 Glucose [Mass/Vol] 159 mg/dL Critically high 74-[address] [facility] Comment on above: Performed By: #### H BSANS #### [facility] [address] [place] [address] Dr. Alexsander Dickinson HEP B SURFACE ANTIGEN SCREEN on 08-17-2022 HBsAg Screen Negative Normal Negative [facility] Comment on above: Performed By: #### H BSANS #### [facility] [address] [place] [address] Dr. Alexsander Dickinson HEPATITIS C VIRUS AB W/ REFL EX QUANTon 08-17-2022 HCV AB <0.1 Normal 0.0-0.9 [facility] Comment on above: Performed By: #### A 1C #### [facility] [address] [place] [address] Dr. Alexsander Dickinson Interpretation: Comment Normal [facility] Comment on above: Result Comment: Nega tive Not infected with HCV, unless recent infection is suspected or other evidence exists to indicate HCV infection. Performed By: #### A 1C #### [facility] [address] [place] [address] Dr. Alexsander Dickinson HIV 1 AND 2 WITH REFLEXon HIV Screen 4th Generation wRfx Non-Reactive Normal Non Reactive [facility] Comment on above: Result Comment: HIV Negative HIV-1/HIV-2 antibodies and HIV-1 p24 antigen were NOT detected. There is no laboratory evidence of HIV infection. Performed By: #### H IV12 #### [facility] [address] [place] [address] [address] Alexsander Dickinson RPR QUANTon 08-17-2022 Rapid Plasma Reagin, Quant Non-Reactive Normal NonRea<1:1 [facility] Comment on above: Result Comment: Plea se Note: This test does not meet current guidelines for screening and diagnosis of syphilis. This test is intended for following treatment response in patients being treated for syphilis infection. To screen for syphilis infection, a reflex cascade that includes both RPR and a treponema-specific assay should be utilized, such as Treponema pallidum (Syphilis) Screening [place] (784859) or Rapid Plasma Reagin (RPR) Test With Reflex to Quantitative RPR and Confirmatory Treponema pallidum Antibodies (252482). Performed By: #### H BSANS #### [facility] [address] [place] [address] Dr. Alexsander Dickinson RUBELLA AB IGGon 08-17-2022 Rubella Antibodies, IgG 11.90 index Normal Immune >0.99 [facility] Comment on above: Result Comment: Non- immune <0.90 Equivocal 0.90 - 0.99 Immune >0.99 Performed By: #### H BSANS #### [facility] [address] [place] [address] Dr. Alexsander Dickinson CBC AUTO DIFFon 08-16-2022 BASO # 0.1 103/ul Normal 0.0-0.1 [facility] Comment on above: Performed By: #### H BSANS #### [facility] [address] [place] [address] Dr. Alexsander Dickinson Basophils/100 WBC (Bld) 0.6 % Normal 0.2-2.0 [facility] Comment on above: Performed By: #### H BSANS #### [facility] [address] [place] [address] [address] Alexsander Dickinson EO # 0.1 103/ul Normal 0.0-0.7 [facility] Comment on above: Performed By: #### H BSANS #### [facility] [address] [place] [address] [address] Alexsander Dickinson Eosinophils/100 WBC (Bld) 0.9 % Normal 0.9-7.0 [facility] Comment on above: Performed By: #### H BSANS #### [facility] [address] [place] [address] Dr. Alexsander Dickinson Erythrocyte distribution width (RBC) [Ratio] 12.9 % Normal 11.0-15.0 [facility] Comment on above: Performed By: #### H BSANS #### [facility] [address] [place] [address] Dr. Alexsander Dickinson Hematocrit (Bld) [Volume fraction] 39.0 % Normal 36.0-48.0 [facility] Comment on above: Performed By: #### H BSANS #### [facility] [address] [place] [address] Dr. Alexsander Dickinson Hemoglobin (Bld) [Mass/Vol] 12.9 g/dL Normal 12.0-16.0 [facility] Comment on above: Performed By: #### H BSANS #### [facility] [address] [place] [address] Dr. Alexsander Dickinson IG # 0.04 10e3/ul Critically high 0.00-0.03 [facility] Comment on above: Performed By: #### H BSANS #### [facility] [address] [place] [address] Dr. Alexsander Dickinson IG % 0.4 % Normal 0.0-0.5 [facility] Comment on above: Performed By: #### H BSANS #### [facility] [address] [place] [address] Dr. Alexsander Dickinson LYMPH # 2.4 103/ul Normal 1.2-3.8 [facility] Comment on above: Performed By: #### H BSANS #### [facility] [address] [place] [address] Dr. Alexsander Dickinson Lymphocytes/100 WBC (Bld) 26.3 % Normal 20.5-60.0 [facility] Comment on above: Performed By: #### H BSANS #### [facility] [address] [place] [address] Dr. Alexsander Dickinson MANUAL DIFF REQ NO Normal [facility] Comment on above: Performed By: #### H BSANS #### [facility] [address] [place] [address] Dr. Alexsander Dickinson MCH (RBC) [Entitic mass] 28.4 pg Normal 26.7-34.0 [facility] Comment on above: Performed By: #### H BSANS #### [facility] [address] [place] [address] Dr. Alexsander Dickinson MCHC (RBC) [Mass/Vol] 33.1 g/dL Normal 29.9-35.2 [facility] Comment on above: Performed By: #### H BSANS #### [facility] [address] [place] [address] Dr. Alexsander Dickinson MCV (RBC) [Entitic vol] 85.7 fL Normal 81.0-99.0 [facility] Comment on above: Performed By: #### H BSANS #### [facility] [address] [place] [address] Dr. Alexsander Dickinson MONO # 0.6 103/ul Normal 0.3-0.8 [facility] Comment on above: Performed By: #### H BSANS #### [facility] [address] [place] [address] Dr. Alexsander Dickinson Monocytes/100 WBC (Bld) 6.8 % Normal 1.7-12.0 [facility] Comment on above: Performed By: #### H BSANS #### [facility] [address] [place] [address] Dr. Alexsander Dickinson NEUT # 5.8 103/ul Normal 1.4-6.5 [facility] Comment on above: Performed By: #### H BSANS #### [facility] [address] [place] [address] [address] Alexsander Dickinson Neutrophils/100 WBC (Bld) 65.0 % Normal 43.0-75.0 [facility] Comment on above: Performed By: #### H BSANS #### [facility] [address] [place] [address] [address] Alexsander Dickinson Platelet mean volume (Bld) [Entitic vol] 9.9 fL Normal 9.5-13.5 [facility] Comment on above: Performed By: #### H BSANS #### [facility] [address] [place] [address] [address] Alexsander Dickinson PLT 275 103/ul Normal 150-450 [facility] Comment on above: Performed By: #### H BSANS #### [facility] [address] [place] [address] Dr. Alexsander Dickinson RBC 4.55 106/ul Normal 4.20-5.40 [facility] Comment on above: Performed By: #### H BSANS #### [facility] [address] [place] [address] [address] Alexsander Dickinson WBC 8.9 103/ul Normal 4.0-11.0 [facility] Comment on above: Performed By: #### H BSANS #### [facility] [address] [place] [address] Dr. Alexsander Dickinson CULTURE URINEon 08-16-2022 CULTURE URINE Culture Observations: MODERATE GROWTH OF MIXED GENITAL JOHN. NO POTENTIAL PATHOGENS SEEN. Normal [facility] Comment on above: Performed By: #### A FPMAT #### [facility] [address] [place] [address] Dr. Alexsander Dickinson GLYCOHEMOGLOBIN A1Con 2021 ADA RECOMMENDATION SEE BELOW Normal [facility] Comment on above: Result Comment: ADA RECOMMENDED LIMIT 4.0 - 6.0 ADA THERAPEUTIC TARGET < 7.0 ACTION SUGGESTED > 7.0 Performed By: #### A 1C #### [facility] [address] [place] [address] Dr. Alexsander Dickinson Glucose [Mass/Vol] 111 mg/dL Normal [facility] Comment on above: Performed By: #### A 1C #### [facility] [address] [address] [address] Alexsander Dickinson HbA1c (Bld) [Mass fraction] 5.5 % Normal 4.5-6.2 [facility] Comment on above: Performed By: #### A 1C #### [facility] [address] [place] [address] Dr. Alexsander Dickinson LATRELL BOX TEST PT SEND OUTo n 08-16-2022 SENT TO REF LAB 08/16/2022 Normal [facility] Comment on above: Performed By: #### N BOX #### [facility] [address] [place] [address] Dr. Alexsander Dickinson TYPE AND SCREENon 08-16-2022 TYPE AND SCREEN Negative Normal [facility] Comment on above: Performed By: #### A FPMAT #### [facility] [address] [place] [address] Dr. Alexsander Dickinson US PREG TVon 07-21-2022 [...] DEE GALLEGOS Date: 2022-07-20 22:25 Normal [facility] US PREG TVon 07-13-2022 US PREG TV EXAMINATION: US PREG TV HISTORY: Missed period COMPARISON: 03/09/2022 FINDINGS: Fonseca intrauterine gestation Gestational sac: 1.7 cm, 6 weeks 2 days Yolk sac: 1.7 mm Morales-Sanchez-rump length: 5.8 mm, 6 weeks 3 days Heart rate: 125 bpm Uterus is normal in appearance, anteverted, retroflexed The ovaries are normal in appearance. Cervix: Closed, 3.9 cm small amount of fluid in the endocervical canal IMPRESSION: Viable fonseca intrauterine gestation measuring 6 weeks 3 days Electronically authenticated by: SEBASTIAN HENRY Date: 2022-07-13 17:05 Normal [facility] Coding Summaryon 03-17-2022 Coding Summary HTMLBase 64 SrpwnfitLNp9vIr+PGhl YWQ+XR8NQFHuT20egPEm kJ5EI1hCHH7FJKVJBZGZ SW7VHL3ugJW3GYqzR2Yn biAv AltjeEXmMT73NYk3WQR0 aGkcFAuveP8csSZaD8x1 OzTzMO19qQ19IIjsNYQe AaU4PjPcepgldJTh J2ixUtDcmFAnZpi+PHRh YmxlIHdpZHRoPScxMDAl FtIkzHezVS8wHw4fQKYk LWNvbGxhcHNlOiBj t8ohSWFyIIneIP3cdMxq P8AknDF6BWYmh9f8Eg28 dHI+SFNxOAR5oPaqFDlf x803FuIki1nzZLB1 rKTwTQhmQVS8A97wu9T6 HLOqOYOrKCT6bNV9aX0p pArzqtouQ5KqdSLmHcQ2 SUM9rWIzcW7wqZrv bififW2cAjn+F89RJX0C IPLNKK2UJdl6G4SjHzdo dHI+YJ75DDCcFS53fPYr vCLft7bgtHp8JvAp TQMaLBT3fOulWQuri8Nm ZBFyM18pzDSfr3O2SFVt iZictNJdZsOmnET5yK2o DRkubbsve3bdiios Hogsm6jiag23bF31L23s APwjTIQvFNU8COUnFRWe jMkhui5ezI6eKe0+IDxj v2wjo7dydTd0MrVe KGBnrqObwPscQNA1l4Yq Re13L8SuiRngz1NdUfe8 fz76bCQse7T8oYA9DUco PFVxyX7wJBmaPzN9 JKSnRnHktX71eLLiGRkb Le0urOkkdPkdBY6qTZVp isieSIBsxN0mGJSnyRVz iPqsDP2cULOzwqza j459FbAyLSO2BBTxnETz K0BlzT2vUmSrARDdNORz B2HkoERqGGuhZ379XMqc ZbN5JGYfctPkQ8Ay NCBcuLbmXlY4v8L3Aw7U w7LhurqyILU4JKipKBG9 KzYtJeSnXpN5M2IsVhg3 EAPqlZalTR1vX6Mj NTFbwripralloVU1IWHb KRJcgV59hVHcINpyDw6q b2V6a948VTSjIZMxiA29 Xk4vrXylERWjxFDD cU5dnpdte8zbgzusVxNn SPXdJUr2FPb5BXDxrNom JtAwNZT1ThT6GWZ3nJGr jL4jiClfpjvyxC2k Oyc+S26zbN6lVWM5HPD1 yjhyXZXercZcQE57FZ62 J9CkAophrHOagNE+PGRp upLooCwtYE8aIzQv c7gje6EoTMihT9EaJRUd YZxqXkd2OWLjULD4xUW8 lN8xCABdUBlmj8Y4cPM6 P9ZhfiRfpe9wp0yg QPUjSRghN79aeDAgq2Z7 MKQyoHV6KAOowRruSxBe jT48Oce+LTEwkKcmn4Zh Bojih7lem7yyxLb4 IjMwJSIgdmFsaWduPSJ0 s5TkIe89V83zSEerHMIs PUHtZZYzYEHjfFwoen6h wA6eZc0+PGNvbCB3 uLK4qS9gANByEfO2AKql Z793JwRoeXHcUjwho0ip s7kmmYk7OkFgVHEpqkPl gOysNCD6i7PfVc86 C71kVXniDVTyZJOcHXJt SWJvgCctua6nhN1eRe8+ HD6vt1slze54rN27pUW+ KLMtKYO6fUmfHTgv ZITemH6tPEjnAyL9MQYh JvHcvG94rUMfSYcuAb2g tWcpfVsuGB1jUWMwmmzi h933MnJbr6izHSEj fVPwOMuxLNM9C95dx4O4 JDEpCHYtMNC6bYP2zC8i bGlnbjogbGVmdDsgdmVy hXzxYYjdIOjpH403 IHRvcDsnPlBhdGllbnQg RkKtAHh2L1WjNrj0TDEs pVijDM7sdYWaGNqwWx9z tHlxuMmrTV7mYBCn ixfrp972FlLxl9skLSTi lXHhPLxtNMR0D01gd2W5 CCPcORElPVU6pFV2mO2f bGlnbjogbGVmdDsg qqAyeBkoJMgcEYdlI809 IHRvcDsnPkJpcnRoIERh nSD5HA73QJ55iWCay7L3 pMJ7Q8UjICBskguu penzbFQ1ULCpBGQgcS08 Dv3noWdwHu2jHSSeNHX6 ZRXsnTGiA2FfuZ4qCxAa EFEhWQZvT8ZquPDe RIzcB575FAhlQfH7LCIm wnZeU5XpEHJmdLnkBsZ9 x0H3Fg6UF0D8CX62EZ01 fEJtj4N7zAB7Z3Nx YFCeokujgrbvkWJ2OBTr WBVejY06Ci9lnVtoNe3i MNAsLFL9PAPxyJXsL9An gN3bOsSiMOAwSKVc Q7VrxEWmINepI159VAvv GdH1JZFgrrYbK0MjRIMn zTotMyK3e2X0Sg5OOBi6 EW02UV65fHKko3Y5 yUF0O1UzCFHgdoqdwana aAT8TEPuWKFedF17Dx0d wGabMe3uYHQmHDD7LYSh tBMkQ6RzoE4qHoUu CMUnDGHmP2SklAQuJBaf L262APnrHxR8VUWfspQn N2XoXICfkYseSqJ1m1I7 Mt1XAWSaCO13YHT9 xCJ6WK43DR50C8YzZwzp dGFibGU+PHRhYmxlIHdp ZHRoPScxMDAlJyBzdHls YB6sEr3cHJFoZOQs fPmdwTImYuCmt0jhKAHt AUuxRO6ajYujV0DxqGL8 VNLse0m0Ea47R62wJ2Md dXA+KWYeuZQ8uOL4 fO4cJjAaMyG5TKrnI380 YqOpjOPqFgqbo6dne1pg kNv3KdT5LPErywLyhGns EVJ9s4CuVi80L87x IHdpZHRoPSIxNSUiIHZh rUovhj1hqO6iZb3+PGNv cQA1tNI4rR2wBrUaVjX7 ATbiR356PuHjtSZl Hvjks7dde5uauCr7CfFl UUMsytIpyXwxDWM4u1Of Jz83D1TjrCnbo2VvPak5 jz88fDWck0M8kHQ9 K6HpYLZivzgklZOfjBjn WY4nWZIjvenuFVXpxZ2k GMBkB7v6VqRbTyC2BTrk B9RwyrS1APAwqWUi PRrnCAR6Y05lh6E9HBUp WRGiKOT4sZB9oM0wfUda bjogbGVmdDsgdmVydGlj PFpvCOvoM907BRXp vFaiWGBgaS4lKGNgnIBh bYahAU3zQDLxtvdsHtMV TExJTlMsIEFMWVNTQSBS ARCRKTb9J3HjZeu4 SUNdbMluDI7ujXOdOFcu Ow7ywBtviNusAC5tSSMo jyoqJKBixH1rEXBmjBRu zZpgSJ1nIPAixzsz a648YrDiXJU1ESPdqCJy Y7ZfwR5eIkKtQAGhVXJv V3KhjVYtVMqxZ859VKda QkF3RHZzhrTaA4Bm ONRrqUwnZtI1s5Y9Sy4e OM4tTi6uABg2RE69LE51 jUJbz1V7pRC3I1HuNUNi nxxdrtcxeSY5ZTXp NKIqoS69zENeDHgxAd8t f0E6v185ELOaLCKhjK43 Ti1esPtzGUPbtVFQfP8r xrgun8bqitzmWmTc LTAlEQz5BPp4OVRmaTmo OyNdWWB5ZoG2PGT2aRAe oC2hnDxxgjywjR3gTsb+ CdxwAMZljvM9W2Dt Vbc8NHTllXhpQT8esRJq IEdoHn0hwIkljOwdIS9a PWTmhjtxBHJifF6uZRDr hKCgoRjaTC3jUESo tyztf502IbQmMZH0YLIu tWFnX1BjcM9kPuOcCCFc HDZzN9LwsFVwQCgfK255 NYouPwV6TSYnpmFs O9BaEJOvxVbdUqY2v5X0 Ok8QOR0VNFJ8N9FvBub0 JFXcrMwgFJ8ouZVdMDtz Tk4qaLhmvKkuQN5g QEIkjezzKSJnnA5fPVRs aWAvjIzxUG8bTNOdjerv d827VlZvKZK7EIDlxEUc K6CqiJ3bBuBvWOJu CHIcB9GaqKVhZEjnA079 AOtjGcR4QIKcfuJvB4Ub JJNlfHitOwB0b0F5Ev0L UDwvdGQ+SQ20tn40 X7AnTsqcGld5HGWrFHJ1 nIA5iM9sTBNcZSnla7Z5 tCC1L9DbzvLesv4ov7jw JBFyMNcxX52hmSMp t4I8MQWwsCB4SOVyjKjf SxWjnD79Hug+PGNvbGdy f5HyIygat3wmo6kxxFd8 IjMwJSIgdmFsaWdu EWI3r5QoLf39I14sZMsb ZHRoPSIzMCUiIHZhbGln dg5jdZ4uIg2+PGNvbCB3 uID3bP6kLuZmTnT9 MRepH322SqQvmWDmPotk x4zqf4modKu2EcWvRYCe mzXtwWdoBDZ0b7OxHv62 S7BxmDote6LeXow8 tj66kLYht3X2cIJ9G9Cg FIQprznchZXheQpiTM8k RJDrrvjmPCNgzE5uMZAx W9v3MvAkKvV3JVci T7VrnaA8JOVpkMXeQYAi kCYVuF5ehndoh3rdqfbh IyNmJKCyVNe0VEl2CKXs pTreUpClJRV5ElA1 QFG5iGDrrA0gfKgcoeuz zB2fMnj+LUu0w4hqcITf VX2caBY2VE95LG38yTXv o8P5vMZ1D0HdBXEl cbejbzllpBS2ERHzLZPd lB85Pz8swRonDc7cNOJt TLY4XCYzdUJxY4BfrM5y SiLtQFNmDYJiB1Kl uGGoPCbsH924KUgaVqE5 PMSlfcAoV8SzSUDnmRpu KjR9a6Q3Mn4YTE79QY32 IJ89xNUzr7A8aLN4 R9OyAXXkcdlcyvatxQW2 RKHxRMYppR41Mr1ifOre Ju1dYSPkRLD4IKJojVIz V6DyrM9hKpIkDMXt DIWaA9BejYEcWAofP073 SRrySpY8EOGmlbYkW9Ft BSMlrOttZdB9j2T3Dn3L Xi12IX51TC84xSOx h0S5wGD0C3NkGCRljulf nhiaxWP6RAEiZOBwvT81 Po2nhNnpGj6aPEGqORV8 PWEtlVSmW4CetK2a RbCuGFMsHJMdL0HtbAZh DWavG592OLerMtI2EZZw qkMcQ7WdLCDcgTabAlO9 r3S3Ts7LXUjiyrd4 M2XiIwjiuZF+WF44EOJw KH97nJKijYXht6dglOe9 NcXmCGGuJKO5cUqjOKpw i4TfIPDyD89mmCFx c2U (more content not included)... [facility] Coding Summary HTMLBase 64 GqwcxcupSGi6pAz+PGhl YWQ+SJ1ZAJGyW93nwXRz sE9LV2mNBT4LDMOGWAKT TO7PPX4ghQN0XYulN3Gx biAv FxrbvWFpAB53BVm2HDK1 xVolTXmavX2fvLAfQ3e3 MuGoWC29dY35JKfcQZIw KzY4YuVhgomisVDv A1grQwDmlPCuIyf+PHRh YmxlIHdpZHRoPScxMDAl SjKzqPdfXM0hQz0lBOOb LWNvbGxhcHNlOiBj y0nsWECcTBpyNC5wsQbx T5IcgLD2LOIfb0e3Tz98 dHI+PHKbFMK9aMqmERgc h568FmNdx1baUSS1 pVHeSXcdPUG9D95yz1H8 BJOpDOFlPII2oBD2mY3n kXfbwxypO0EioQHqJjG2 QZL4mQKgmO9sbJge fxfixL9uNun+L63JRE7D AITVCL2LDic0A6AjObak dHI+KE20DPGwQY75iLMw sDFqr5gmnTc4KbRy LVLxBKP0tLisKFrtw5Pj SEBnB65utVVtq8J9BSJv cKbooLWhShKvpOM0qK9r SWkcuaqwn6mgsdfm Tvlqd5rqiv01uG62N79v UGkzUWIpKFM9TKUmVVSb rTwbbw6nlV5yIp3+IDxj v8fth8humIn9GqAa NOXpskDvoIpeLKM0v0Yx Yl31H3BigGaxu0ReOpl9 kf12pGYhl7S1aUB1LIcq EYIsvS4uRCgbBnC0 GOArVkRlgA98jDCmTSfp Hu9cbHryuUblCL4kSJYk mnjrYOLsuT6oUPYgsWOl qLjaEV2xSUHanyte m838WtLzFWU0VJBvwBKu J9KwnQ2fBaUmZTTrEJTq S1CdoOVnHQrpG159WTmt VtN4HVKfkcYtU7Xy RAKduTcoPiG9d1V0Nt3W v8ZqebvrVSN3KGmcFUZ5 HnRoCcTmAaZ8R9QyHkp9 NTVfeQsePO2iD7Pf PMTnlnsjcchepOL5JIKb WBOewC50ySNtXRkbOs2c p6W6i080RBXlXXComE39 Ej8vbGlkUIZeuKEO yZ0quxalh7kgecwoAuAv LSTrHGb9IJc7KCCpoNps ReYuKAE1RaB6FGV5vWFg wW0ylGpwyryyfT8g Oyc+J38nbK7mDAT4ARO0 pdvwSUNmxxLdKX36DP52 X1WxXotzoOMlsGL+PGRp qnUedEeqJT8eSkNe t3bqz5OdXHccQ1LfGBAe CYcgEvk8OVVaJRL9lIK9 hU6kCAQpHFalx8J6mEX1 S3MbxmPqrv0us6yw XEYfVUhvY85cdGRqn7R6 PEWzwAJ9XMNhgTbnLkYh qM57Mzb+KTHhqDfbv4Ez Vdzko8qjm0nekNu3 IjMwJSIgdmFsaWduPSJ0 c7VlZo64L94eFHdgIZXa EFWxPQLjOKYtgSfyfl7s uS2sKs8+PGNvbCB3 hJQ4dY9xJECrUqR5CBnv V011HiZirGKeZgslg7rp j1jocAr1YxItUBOfgfBi oByyMFJ4z6JlWg85 P16fQVbhCBQvRZWqPNDp YLVudGnmvb6pcC5iZe2+ BV6ds5eamw09mI97yOI+ LQWdFJR6nHtfADbc XVLnbU7iGLngVfF3BKQv KaNddW35lCKyUHenTr5t sNlpePqtNR6fSDUvpiqz h859MuBva7mtTARu xXThHXrpEMB8P99pp0D0 HMOuZGHnANI1aFY4zO8y bGlnbjogbGVmdDsgdmVy eZxiEPtgWKalH068 IHRvcDsnPlBhdGllbnQg SsYnJIk6J8FaCwa3NMFe jIiaAA7yoYHvZHkhNd8i aSlkpXhyKO0tPIZp rueat236RnSjz6klEGVi iIEbKRrfXLV4G29wz4A0 UURmHVDeDEC4lQZ7iP2i bGlnbjogbGVmdDsg dhRcqKdfQQzxXEtoR535 IHRvcDsnPkJpcnRoIERh xNP3RC31UZ54rIKja1V1 fOS9K3VmPZAqyaoc weadiNE6GRGgQFSajD56 Qh5xvUwfAp1iXVRaLYK4 YGYrlWMdX9LhsG5qTmUz HAMrKQScL4RspTWg TJroH031LQsfOuA0OATw kwElU6DxVQVysNtqEkJ2 i2M0Sr9FM9W4HE53QW54 mAKea8L6yVJ6Y2Az KVYiarremjwdzNK9XYEa PJLxcB04Qs4nsKlbPc5u SXGyLUR6UIFdzEGqW8Ja bX6hMbGmLSBwDPHh U1JtjNVlURghF265ZBjy GrM5GEMgtkLhD2UnHQLn iLarEvC4y7Z2Rb1PBZy6 JK26UA08cNPmt4B9 sGY0L7RrASGzanwufvfn cRO6WATjUTZnvZ93Uq0a nWjzCc3bZMUkZLV5JFJf oLHcG9AraW7zEgVb FTMqFYPeC4CthJZsPEhn I400XSmoWpN5XDJnmzXk T4XpDZJwdPneGiV4z1E7 Ef8JQBQnZU23SXJ6 vKB2IG83TI61R9EcRibl dGFibGU+PHRhYmxlIHdp ZHRoPScxMDAlJyBzdHls XR1dKn7bLBNvZNNz mSdqgDGsLsFzf7pmGLAj VPerYU4ztJwwM9ScsPF2 LQVdj8a6Ej84C35oT7Vt dXA+AAVtcFQ1jDA5 xF1vYrNgMeP0FPflT567 OmYfkTWfSwarj1fvq9fk cJu6YwC9UMQziqWqjSrw MBN5i4NxEh58R79s IHdpZHRoPSIxNSUiIHZh lPpulm7dqE8wAd7+PGNv xOR5rMP1qB7vRfPqEtV9 AWbgS760UgTjwEAb Irixj7ido7eodIe2TdEu MIIhvfCfnMifOWT0z9Wx Aa01Z9BpkUkmn8DjNyl1 uh10jKGlw9G2gRF6 P9AkQUHxqlmwgLTsiSup OY2uTYAbmuvtWHHraH8e HTTaC4b7VrDeWyC8CNmb T3MdfdA9USEwhELg JIdaLKP3D14da8D5ZILw ZNQmPQY9qJQ8jA7ucJkc bjogbGVmdDsgdmVydGlj TLkfNObgN315SATv uAmaTHLryE2jNLKeoEFq wDebNU3yZAPnzfrwDaQL TExJTlMsIEFMWVNTQSBS OBVBTEs3Z7KcZuf8 HSOelLvdBL2gjKJtUXvg Gw3vmZsxiFwjUX2dSEDp ifbqSITjoM8pVYPhdWDw sUzzQK4dBTIlryrg f683QfZgBPB5RPLcbWYk T6SxoH0gVyFaTJNyDCKp W4CcrQTrCOonW851ILbv YrG6PLOuskPzS8Rt ZSBxqAtcShL1u5Y8Pd9r OF8gMn1fLQf5JW16XC60 oMOzm4C5gVK7K1FdAPHu dokuuqzmfRG9QLLo GIIfrL56bVFgEEjeIi8z o4W1x282ZJPjERAnrT35 Ih8kwEnoGIFdlEKEyI7k kjdzy9mvkfndFhWp JQHdIDh1MEr7XTLmrYde PaSsYEC2SnR5EBB2oYXl xX5bqNiwixnmqH1jYek+ VqqsTHWpfmP8P1Zn Mid0NKGcqCbtTG2ilSGb GIjvXc4dmFgtmWitRY4z AFCuttqtUWDgaW1fBMGj wQGcqKwuJY0fRCEw nixxb163YqRsZUH3TZKv eYKqM0BqwT7mEsZtNSFo YKKtF6NiwGOlOAiqM959 BWutDqL4WVDvfnWi U4BuOGHzqZldMpW0h7S8 Bf1CXP6VXJT3E0AuEgd8 SVVlrAqwLL4rvRQcMIcm Yq3meGaniLxqNP9m UVYrdsgvIGLylR1bAMKq tXJydQbsUQ5nDJSupsjs q004LwCyUUS8RLOehRPa E3NezW2pYxRfDYZp DRYwR9CrsWJpPEtoJ294 YIsgIgT2VNAuvpTuY2Gl ROLfwMuqXoD4p0H1Ab9M mJBuE5MoK0i6L3Xm PjwvdHI+OI01THXcHJ35 vCCgaKKct6ilvQy3AdPs BIXsAAR5bIctXGsog6Pj WRCrB28psFYio8C4 IGNvbGxhcHNlOyBlbXB0 oM7nSDhtdmfch2hlfytx Cnaiq8wtml77nG86Y71n IHdpZHRoPSIzMCUi YYGgcLfcsw3cqZ7zCy8+ TKQmfTP0fQA5rD9oElBt EwS8MHiuS652MwDfuFBh Hzvjw7tdo3knrOe4 IjIwJSIgdmFsaWduPSJ0 x5CzEz91Y89eNXotHYCq SZJgHZZlIDMfqSlgis1p gR0gRr4+KZ6tj8ze oc10vL16qPS+PHRkIHN0 eLxuHAsuWIEjxQ9kAPnq OzL0DSPtIeBoqF55xIKu LUtbCk5ojDibcBjx UB8pLJHvcbljj514WhWp q9awTHIcqGZlLQknKSP4 S10ha2D0BCUbFYVhYGP0 eFY3pH5lzMgdjvwx bGVmdDsgdmVydGljYWwt AVlkU036QVGxmTwpVrVq qGFhE1cgpdVEXY1fPuls dGQ+BZCrOTD0xYhj NAqcUKYowM3aXBMiX4w4 PzLnUnA0RIcdP1NrdeN9 CRXqeFJbSBLebQRPiJ0j vwjgv6qoulfoXrTz UWQuNOj8EUw0PZZmhCpm SyFyIXG3YrN0LEJ6uPNb kO4iuTmdyazwbY3cXpt+ RklOOjwvdGQ+PHRk THP7cVncPRloIPUbyO9f DJCzE6n9ZfJsBiO3RSiq V2XoymH3IGWylVCbIUXr rVYZnP7acefpw5tm wdgpTeHtUPVeAVg1IWb7 GRNfaTixWvMvHZA0CfX8 PVO8vAYgpK7neKikxgdf wZ6jGcu+TVJOOjwv dGQ+VPEmZGS6bBqbAZcd RSFloL2jMEPqQ3t6PlTf YeB6VOsxR5XcwlB8BZRd tBCkEZNwzDSLqD8j qbxrf1flqzzvNtRmFOXh URj3PYc1HFIevHutPvAn OOW2CuH5TFS8sTIvhM5b qMeeijdkrM9nRbu+ AEI1YVJ0QC89XA85U8Cb PjwvdGFibGU+PHRhYmxl IHdpZHRoPScxMDAlJyBz vSvgXH8tRg4jBDHm LWN (more content not included)... Normal [facility] C Urineon 03-11-2022 C Urine Urine Culture ordered as a result of parameters set on specific urine dip and urine microsopic results. >3 Organisms Consistent with Contamination Recollection suggested. Normal [facility] Comment on above: Performed By: #### 1 1443497, 74575350, 3088172, 8795763368, 13899349, 0958149, 5087877323, 0275057377, 8760865109, 0291397 #### [facility] (DEFAULT) [address] [place] [address] 86409 .Auto Diff 03-09-2022 Auto [place] % 8 % Normal 11-09 [facility] Comment on above: Performed By: #### 1 5316141, 97351449, 1143274, 9763359462, 60825689, 6953012, 2755090511, 3091947602, 0738041998, 8030865 #### [facility] (DEFAULT) [address] [place] [address] 40418 Baso Abs# 0.0 x10 Normal 0.0-0.2 [facility] Comment on above: Performed By: #### 1 0832279, 10708360, 2830934, 0830456223, 27356758, 1142784, 9389823375, 2228681810, 3185372900, 4934074 #### [facility] (DEFAULT) [address] [place] [address] 64694 Basophils/100 WBC (Bld) 0.3 % Normal 0.2-2.0 [facility] Comment on above: Performed By: #### 1 5168483, 27776733, 9634041, 9782816963, 67544069, 2190452, 7902947693, 8998815683, 4136230603, 2918225 #### [facility] (DEFAULT) [address] [place] [address] 53646 Eos Abs# 0.1 x10 Normal 0.0-0.4 [facility] Comment on above: Performed By: #### 1 6857371, 28483411, 7995342, 8980404885, 67486514, 2952092, 3317843684, 8247098833, 8836500759, 3687357 #### [facility] (DEFAULT) [address] [place] [address] 81649 Eosinophils/100 WBC (Bld) 1.0 % Normal 0.9-4.0 [facility] Comment on above: Performed By: #### 1 9580299, 67381082, 8005708, 1453690261, 48096775, 8068673, 5462277329, 2233931182, 4518052732, 1806155 #### [facility] (DEFAULT) [address] [place] [address] 38787 Lymph Abs# 2.0 x10 Normal 1.3-2.9 [facility] Comment on above: Performed By: #### 1 7077532, 87507357, 2833589, 9052615039, 66945313, 0719676, 4062702547, 6160754436, 9389191068, 8740896 #### [facility] (DEFAULT) [address] [place] [address] 49231 Lymphocytes/100 WBC (Bld) 35 % Normal 14-48 [facility] Comment on above: Performed By: #### 1 7587402, 16426831, 6758813, 0831135482, 81782080, 4032099, 7189912304, 8624997438, 0237029021, 4935603 #### [facility] (DEFAULT) [address] [place] [address] 24797 Pecos Abs# 0.5 x10 Normal 0.0-0.8 [facility] Comment on above: Performed By: #### 1 0138135, 45156109, 7303023, 2553379612, 32105650, 5779278, 3180285171, 4302603496, 2869948611, 6058346 #### [facility] (DEFAULT) [address] [place] [address] 58083 Neut Abs# 3.2 x10 Normal 1.5-9.2 [facility] Comment on above: Performed By: #### 1 0629600, 15476271, 3910566, 5677480894, 46266939, 2787467, 4963580506, 1180904961, 3935268666, 3928415 #### [facility] (DEFAULT) [address] [place], [place] [address] Neutrophils/100 WBC (Bld) 55 % Normal 44-88 [facility] Comment on above: Performed By: #### 1 7606397, 29134494, 1073160, 1058442782, 10485095, 8148106, 9769568862, 2511825560, 4867008995, 5231436 #### [facility] (DEFAULT) [address] [place], [place] [address] ABORhon 03-09-2022 ABO and Rh group Nom (Bld) Hx Check: Not Found Anti-A: 4+ Anti-B: 0 Anti-D: 4+ DCon: 0 A1: mf+ B: 4+ ABORh Interp: A POS Invalid Interpretation Code [facility] Comment on above: Performed By: #### 1 1790528, 23130135, 0998365, 0459292928, 76962373, 9737626, 0724331638, 6735836100, 3239036233, 9721893 #### [facility] (DEFAULT) [address] [place] [address] 66795 ABORh Retypeon 03-09-2022 ABO and Rh group Nom (Bld) Ordered by Discern. Anti-A: 4+ Anti-B: 0 Anti-D: 4+ DCon: 0 A1: mf+ B: 4+ ABORh Retype: A POS Invalid Interpretation Code [facility] Comment on above: Performed By: #### 1 1067991, 76911557, 4268981, 3750602959, 63996241, 9240877, 1166387028, 6766462326, 6446418218, 4296906 ####[facility] (DEFAULT)[address] [place], [place] [address] CBC w/ Auto Diffon Erythrocyte distribution width (RBC) [Ratio] 13.3 % Normal 11.5-15.0 [facility] Comment on above: Performed By: #### 1 9317012, 82473971, 8466863, 3352092864, 19814753, 5859588, 5437436132, 9446159286, 6635876851, 6368063 #### [facility] (DEFAULT) [address] [place] [address] 79660 Hematocrit (Bld) [Volume fraction] 43.5 % High 33.7-40.4 [facility] Comment on above: Performed By: #### 1 5354101, 27776675, 2904747, 1562510568, 89110853, 1056098, 0593092854, 2286545858, 3335450917, 7715629 #### [facility] (DEFAULT) [address] [place] [address] 09616 Hemoglobin (Bld) [Mass/Vol] 14.1 g/dL Normal 11.3-15.9 [facility] Comment on above: Performed By: #### 1 8831705, 84331260, 9429945, 4972196759, 01607688, 8992433, 9431678468, 1959158404, 2702633631, 1264593 #### [facility] (DEFAULT) [address] [place] [address] 38845 Instr WBC 5.7 x10 Invalid Interpretation Code [facility] Comment on above: Performed By: #### 1 4446223, 96224252, 1975066, 9186006179, 57446097, 9805498, 7441521852, 4510223574, 8305258992, 5162457 #### [facility] (DEFAULT) [address] [place] [address] 76866 Man Diff? Auto Normal [facility] Comment on above: Performed By: #### 1 2254421, 34321310, 3692735, 8567865735, 04678667, 6451142, 5625408217, 8071635178, 0307897565, 5226982 #### [facility] (DEFAULT) [address] [place] [address] 81187 MCH (RBC) [Entitic mass] 28 pg Normal 24-34 [facility] Comment on above: Performed By: #### 1 3662134, 12958487, 5967412, 5612059301, 48775488, 3459269, 9118947343, 6455132743, 6954808521, 9481068 #### [facility] (DEFAULT) [address] [place] [address] 83671 MCHC (RBC) [Mass/Vol] 32 g/dL Normal 26-37 [facility] Comment on above: Performed By: #### 1 5194317, 36962222, 8603395, 6123402729, 64760039, 8253805, 1087055847, 1465804116, 2082636189, 3097295 #### [facility] (DEFAULT) [address] [place] [address] 76303 MCV (RBC) [Entitic vol] 86 fL Normal 81-100 [facility] Comment on above: Performed By: #### 1 6245070, 21194822, 7995309, 4135978461, 75990329, 7486706, 2695977821, 5344188459, 7841149960, 2275941 #### [facility] (DEFAULT) [address] [place] [address] 25882 Platelet 324 x10 Normal 138-427 [facility] Comment on above: Performed By: #### 1 8797637, 35269512, 5806128, 1964915701, 19307483, 5457719, 1488302685, 1692224489, 1321458865, 3984397 #### [facility] (DEFAULT) [address] [place] [address] 29628 Platelet mean volume (Bld) [Entitic vol] 9.8 fL Normal 6.3-10.2 [facility] Comment on above: Performed By: #### 1 9694892, 11732794, 6469277, 5504766205, 70088008, 9678027, 9346305969, 0841244600, 7674651922, 2478087 #### [facility] (DEFAULT) [address] [place] [address] 97035 RBC 5.07 x10 Normal 3.70-5.30 [facility] Comment on above: Performed By: #### 1 8979294, 03321813, 5639677, 7125681855, 48355704, 1172421, 0397639031, 8478570955, 9605847103, 0639000 #### [facility] (DEFAULT) [address] [place] [address] 85906 WBC 5.7 x10 Normal 3.5-10.5 [facility] Comment on above: Performed By: #### 1 5951890, 81710828, 7334281, 5408979484, 91869150, 2907715, 8244631283, 2289048212, 5450061787, 3562952 #### [facility] (DEFAULT) [address] [place] [address] 93783 CMP Standardon 03-09-2022 eGFR Non AA >60 Invalid Interpretation Code [facility] Comment on above: Performed By: #### 1 2561556, 28109066, 3797126, 5250680584, 36299953, 3630832, 3213573618, 5501588736, 9634681599, 2133585 #### [facility] (DEFAULT) [address] [place] [address] 03310 eGFR AA >60 Invalid Interpretation Code [facility] Comment on above: Result Comment: Front End Developer Javascript Html Css susie Kidney disease could be indicated at eGFRs of less than 60 ml/min/1.73m2. Kidney Failure is indicated at less than 15 ml/min/1.73m2 Performed By: #### 1 7546997, 25646453, 1375090, 1779976460, 72068411, 7695974, 0833775444, 2270464703, 5741828079, 3076470 #### [facility] (DEFAULT) [address] [place] [address] 23544 Albumin [Mass/Vol] 4.5 g/dL Normal 3.5-5.0 [facility] Comment on above: Performed By: #### 1 2375720, 56050219, 1973483, 0724044206, 51526591, 4322719, 5649050111, 2013395347, 0682002343, 3330465 #### [facility] (DEFAULT) [address] [place] [address] 30765 Albumin/Globulin [Mass ratio] 1.2 {ratio} Low 1.4-2.6 [facility] Comment on above: Performed By: #### 1 3852008, 65744016, 5863142, 2568522703, 72848877, 1024693, 0327550458, 9072598367, 0131304294, 9239664 #### [facility] (DEFAULT) [address] [place] [address] 85532 Alk Phos 52 IU/L Normal 32-91 [facility] Comment on above: Performed By: #### 1 9021642, 00700694, 5891720, 4120737136, 05415803, 7356394, 6075950236, 5916338282, 1829670525, 6917036 #### [facility] (DEFAULT) [address] [place] [address] 52941 ALT [Catalytic activity/Vol] 37.0 U/L Normal 14.0-54.0 [facility] Comment on above: Performed By: #### 1 4159472, 83022060, 3829007, 3499709161, 88572748, 0706887, 5682586288, 9341476024, 2120806061, 0218358 #### [facility] (DEFAULT) [address] [place] [address] 87358 Anion gap [Moles/Vol] 18.0 mmol/L Normal 5.0-19.0 [facility] Comment on above: Performed By: #### 1 7996591, 88024138, 7382137, 5545286493, 78754220, 3437348, 1143140014, 8490571472, 2045832763, 4836439 #### [facility] (DEFAULT) [address] [place] [address] 13816 AST [Catalytic activity/Vol] 29 U/L Normal 15-41 [facility] Comment on above: Performed By: #### 1 9830133, 56911209, 4414917, 4412205641, 54804380, 0379298, 1529226089, 0779134583, 0038620630, 1900317 #### [facility] (DEFAULT) [address] [place] [address] 80922 Bili Total 0.7 mg/dL Normal 0.3-1.2 [facility] Comment on above: Performed By: #### 1 9631144, 08113502, 6287520, 3871825923, 79079650, 5228797, 8711246279, 4674312530, 8492914979, 2236353 #### [facility] (DEFAULT) [address] [place] [address] 80326 Calcium [Mass/Vol] 9.4 mg/dL Normal 8.9-10.3 [facility] Comment on above: Performed By: #### 1 2032843, 55964356, 3344529, 1335248471, 81527520, 3025132, 3181615617, 6942893635, 2316623820, 3185932 #### [facility] (DEFAULT) [address] [place] [address] 75424 Chloride [Moles/Vol] 100 mmol/L Low 101-111 [facility] Comment on above: Performed By: #### 1 4363483, 64604730, 6564538, 6662077300, 56157644, 6347473, 2771852422, 2800270020, 2911488707, 8246966 #### [facility] (DEFAULT) [address] [place] [address] 45307 CO2 [Moles/Vol] 24 mmol/L Normal 21-32 [facility] Comment on above: Performed By: #### 1 1031574, 99401956, 2571520, 7636481821, 73101213, 7177939, 8799562050, 9460973278, 0378367208, 1801773 #### [facility] (DEFAULT) [address] [place] [address] 14790 Creatinine [Mass/Vol] 0.75 mg/dL Normal 0.60-1.30 [facility] Comment on above: Performed By: #### 1 0886267, 69150160, 7944623, 8875853698, 41596264, 9516657, 0313636067, 4433688304, 9582954724, 6308012 #### [facility] (DEFAULT) [address] [place] [address] 44973 Globulin (S) [Mass/Vol] 3.9 g/dL Normal 1.5-4.3 [facility] Comment on above: Performed By: #### 1 7325591, 54596443, 2046208, 6235315791, 42292588, 3897337, 7615604824, 0673171189, 6537363270, 2244664 #### [facility] (DEFAULT) [address] [place] [address] 76272 Glucose [Mass/Vol] 98.0 mg/dL Normal 74.0-118.0 [facility] Comment on above: Performed By: #### 1 7595529, 43050086, 6877037, 5006430001, 18206072, 7539083, 4074948427, 3027035733, 7386268014, 1364139 #### [facility] (DEFAULT) [address] [place] [address] 88035 Osmolality 274 mOsm/L Invalid Interpretation Code [facility] Comment on above: Performed By: #### 1 0763861, 83878480, 7097910, 7790306948, 92010542, 3173947, 4016305474, 7652810935, 1760961373, 4431501 #### [facility] (DEFAULT) [address] [place] [address] 68467 Potassium [Moles/Vol] 3.5 mmol/L Low 3.6-5.1 [facility] Comment on above: Performed By: #### 1 9648873, 21866372, 7944123, 5455045569, 03837904, 4307090, 9514483560, 9042980617, 4599618289, 4247525 #### [facility] (DEFAULT) [address] [place] [address] 03004 Protein [Mass/Vol] 8.4 g/dL High 6.5-8.1 [facility] Comment on above: Performed By: #### 1 7439915, 83996145, 6810493, 5705521677, 45311288, 3679512, 8201806201, 4974706548, 8463755311, 6077214 #### [facility] (DEFAULT) [address] [place] [address] 54970 Sodium [Moles/Vol] 138.0 mmol/L Normal 136.0-144.0 [facility] Comment on above: Performed By: #### 1 8745605, 35792153, 0716880, 8869199061, 11076000, 8159673, 2229833674, 9183295028, 8136932749, 5233765 #### [facility] (DEFAULT) [address] [place] [address] 86752 Urea nitrogen [Mass/Vol] 7 mg/dL Low 8-26 [facility] Comment on above: Performed By: #### 1 3861279, 29515971, 3580853, 7644411552, 48176296, 8776729, 3857613572, 1897022894, 1512811762, 0122489 #### [facility] (DEFAULT) [address] [place] [address] Urea nitrogen/Creatinine [Mass ratio] 9.0 mg/mg Normal 4.6-16.2 [facility] Comment on above: Performed By: #### 1 7550299, 18374760, 6312382, 9301040540, 19316910, 2331195, 6391272089, 2180893631, 2213030465, 3460347 #### [facility] (DEFAULT) [address] [place] [address] 83070 ED Clinical Summaryon 2021 ED Clinical Summary [facility] - Emergency Department [address] [place] [address] 29781 ED Clinical Summary PERSON INFORMATION Name: DIANE JOYCE Age: 26 Years Sex: FEMALE : 1995 MRN: Acct#: Visit Reason: Vaginal bleeding - < 20 wks ; BLEEDING, Arrival: 03/09/2022 15:56:59 Discharge: 03/09/2022 18:28:00 LOS: 000 02:32 Check In: 03/09/2022 15:56:59 Checkout:03/09/2022 18:28:00 Address: [address] [place] [address] PCP: Provider, None PROVIDER INFORMATION Provider Role [...] or bladder. States that she follows with cylinder machine operator pulp drier in [place] [address], contacted his office and they [...] intact, SARINA: -Sclera conjunctiva: Unremarkable. NECK: -Supple ([id number]): non-tender. CARD: -Rate and rhythm: Regular -Edema: [...] the patient recommended close follow-up with her cylinder machine operator pulp drier and outpatient beta hCG. In the meantime no strenuous ac (more content not included)... Normal [facility] ED Note - Physicianon 2021 [...] or bladder. States that she follows with cylinder machine operator pulp drier in [place] Dr. Min, contacted his office and they [...] intact, SARINA: -Sclera conjunctiva: Unremarkable. NECK: -Supple (ccxl-zw-dwmun): non-tender. CARD: -Rate and rhythm: Regular -Edema: [...] the patient recommended close follow-up with her cylinder machine operator pulp drier and outpatient beta hCG. In the meantime no strenuous activity, sexual activity if having any worsening issues I recommended he return to the emergency department or going directly to cylinder machine operator pulp drier. Patient indicated she understood was in agreement. [...] AA >60 (more content not included)... Normal [facility] ED Note-Nursingon 03-09-2022 Beta HCG [...] patients second , 1 live . Normal [facility] ED Patient Summaryon 022 ED Patient Summary [facility] - Emergency Department [address] [place] [address] PATIENT DISCHARGE INSTRUCTIONS Patient Information Name: DIANE JOYCE Age: 26 Years Date of : 1995 [facility]: [id number] Reason For Visit: Vaginal bleeding - < 20 wks ; BLEEDING, Arrival Time: 03/09/2022 15:56:59 Primary Care Physician: Provider, None Attending Physician: Adrian Rosales MD Comment: Visit Diagnosis: Diagnoses This Visit Elevated blood pressure reading (R03.0) First trimester (Z34.91) Threatened miscarriage in early (O20.0) Vaginal bleeding (N93.9) Vaginal bleeding - < 20 wks ([id number]) Prescription Information: If you have been given a prescription for narcotics, seek immediate medical attention if you have any difficulty breathing or any sudden status changes such as confusion and sleepiness. If you or anyone you know is experiencing suicidal thoughts, mental health, alcohol and/or drug addiction problems; contact the [facility] 21/05 Crisis Hotline -Vywp [id number] [id number]. If you received any narcotics, sedation, or [...] documents With: Address: When: Follow-up with your cylinder machine operator pulp drier for reevaluation next few days. Within 1 to 2 days Comments: Follow-up with cylinder machine operator pulp drier for reevaluation next few days for reevaluation and outpatient quantitative hCG. Return immediately for any worsening issues such as increasing abdominal pains, increasing vaginal bleeding, fevers, or any other problems. 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 It is important for you to follow up with a doctor, nurse practitioner, or physician?s assistant drafter for ongoing care. If your symptoms become [...] so we can reach you if necessary. [facility] Emergency Department has provided you with a complete list of medications post discharge. Please inform your guide escort/provider of your visit and for further instruction [...] The sec (more content not included)... Normal [facility] Extra Greenon 03-09-2022 Tube Collected Yes Invalid Interpretation Code [facility] Comment on above: Performed By: #### 1 [id number], [id number], [id number], [id number], [id number], [id number], [id number], [id number], [id number], [id number] #### [facility] (DEFAULT) [address] [place] [address] PT/PTTon 03-09-2022 INR Coag (PPP) [Relative time] 0.95 {INR} Normal 0.91-1.11 [facility] Comment on above: Performed By: #### 1 [id number], [id number], [id number], [id number], [id number], [id number], [id number], [id number], [id number], [id number] #### [facility] (DEFAULT) [address] [place] [address] PT 10.3 second(s) Normal 9.7-11.8 [facility] Comment on above: Performed By: #### 1 [id number], [id number], [id number], [id number], [id number], [id number], [id number], [id number], [id number], [id number] #### [facility] (DEFAULT) [address] [place] [address] PTT 34 second(s) Normal 25-35 [facility] Comment on above: Performed By: #### 1 [id number], [id number], [id number], [id number], [id number], 8736252, [id number], [id number], [id number], [id number] #### [facility] (DEFAULT) [address] [place] [address] RhIG.on 03-09-2022 RhIG. No. Vials RhI RhIG Candidate?: No Date to Give: [id number] RhIG Status: RhIG Ready Normal [facility] Comment on above: Performed By: #### 1 [id number], [id number], [id number], [id number], [id number], [id number], [id number], [id number], [id number], [id number] ####[facility] (DEFAULT)[address] [place] [address] UA [id number] 03-09-2022 UA Amorph. 1+ [facility] Comment on above: Order Comment: Urina lysis Microscopic order added on by Discern Expert Rules system. Performed By: #### 5 [id number], [id number], [id number] ####[facility] (DEFAULT)[address] [place] [address] UA Bacteria 2+ [facility] Comment on above: Order Comment: Urina lysis Microscopic order added on by Discern Expert Rules system. Performed By: #### 5 [id number], [id number], [id number] ####[facility] (DEFAULT)[address] [place], [place] [address] UA Mucous 3+ [facility] Comment on above: Order Comment: Urina lysis Microscopic order added on by Discern Expert Rules system. Performed By: #### 5 [id number], [id number], [id number] ####[facility] (DEFAULT)[address] [place] [address] UA RBC >100 [facility] Comment on above: Order Comment: Urina lysis Microscopic order added on by Discern Expert Rules system. Performed By: #### 5 [id number], [id number], [id number] ####[facility] (DEFAULT)[address] [place] [address] UA Squam Epi Many [facility] Comment on above: Order Comment: Urina lysis Microscopic order added on by Discern Expert Rules system. Result Comment: DMITRY VERGARA RN IN ER. RUN UNINALYSIS AND CULTURE ON THIS SPECIMEN. NO RECOLLECT. Performed By: #### 5 [id number], [id number], [id number] ####[facility] (DEFAULT)[address] [place] [address] UA WBC 3-5 [facility] Comment on above: Order Comment: Urina lysis Microscopic order added on by Discern Expert Rules system. Performed By: #### 5 [id number], [id number], [id number] ####[facility] (DEFAULT)[address] [place], [place] [address] UA w Culture if Ind Standard on 03-09-2022 Breakpoint UA [facility] Comment on above: Performed By: #### 1 [id number], 04862748, 3462935, [id number], 52863052, 9619717, [id number], 8922533296, [id number], 0559613 #### [facility] (DEFAULT) [address] [place] [address] Color (U) Yellow Normal [facility] Comment on above: Performed By: #### 1 0550855, 70004170, 9694835, [id number], 18794911, 8710508, 3596843211, [id number], [id number], 8212993 #### [facility] (DEFAULT) [address] [place] [address] Culture? Indicated Invalid Interpretation Code [facility] Comment on above: Result Comment: Resu lt created by rule GL_MAGR_ADD_UA_CULT Result created by rule GL_MAGR_ADD_UA_CULT Result created by rule GL_MAGR_ADD_UA_CULT1 Result created by rule GL_MAGR_ADD_UA_CULT Performed By: #### 1 [id number], 92456747, 8323116, [id number], 76837793, 4951621, 2764513232, 7976695980, [id number], 4178575 #### [facility] (DEFAULT) [address] [place] [address] Glucose (U) [Mass/Vol] Negative Normal [facility] Comment on above: Performed By: #### 1 [id number], 42356440, 1924762, 6907325092, 85016872, 8488688, 3115947747, 9354775873, 4053536059, 3360951 #### [facility] (DEFAULT) [address] [place] [address] Ketones Ql (U) 40 Normal [facility] Comment on above: Performed By: #### 1 0614985, 08153749, 0807424, 0967098399, 58528787, 7557916, 9736171993, 6270489600, 5745528763, 8080941 #### [facility] (DEFAULT) [address] [place] [address] Micro? Indicated Invalid Interpretation Code [facility] Comment on above: Result Comment: Resu lt created by rule GL_MAGR_ADD_UA_MICRO Performed By: #### 1 [id number], 91466085, 1368787, 9812126297, 95299858, 1710151, 4395551367, 0595853644, 8258431404, 1910954 #### [facility] (DEFAULT) [address] [place] [address] UA Bilirubin Negative Normal [facility] Comment on above: Performed By: #### 1 4340580, 16490584, 0337825, 3326321444, 55611869, 0303619, 7092667533, 2797468992, 9944109959, 6907842 #### [facility] (DEFAULT) [address] [place] [address] UA Blood LARGE Abnormal NEGATIVE [facility] Comment on above: Performed By: #### 1 1178049, 23050307, 8801430, 1253584550, 05715416, 0688659, 9714905082, 2808009723, 4107873650, 0692703 #### [facility] (DEFAULT) [address] [place] [address] UA Clarity SL CLOUDY Abnormal CLEAR [facility] Comment on above: Performed By: #### 1 7126738, 74867694, 7938146, 0923571447, 49116350, 3223306, 6870727623, 5634552735, 4303187449, 8676986 #### [facility] (DEFAULT) [address] [place] [address] UA Leuk Est TRACE Abnormal NEGATIVE [facility] Comment on above: Performed By: #### 1 8211480, 56086955, 7543861, 7442883220, 76247923, 6728873, 4686646325, 3600340678, 9246237755, 8008799 #### [facility] (DEFAULT) [address] [place] [address] UA Nitrite Negative Normal NEGATIVE [facility] Comment on above: Performed By: #### 1 1574609, 43017895, 3495353, 5294821162, 23190726, 3522563, 2909435702, 9055453457, 6692468125, 7106547 #### [facility] (DEFAULT) [address] [place] [address] UA pH 6.5 Normal 5-8 [facility] Comment on above: Performed By: #### 1 6719528, 44481522, 4221974, 3026057402, 86798399, 3683333, 9991945641, 9313929536, 6089734916, 6244506 #### [facility] (DEFAULT) [address] [place] [address] UA Protein Negative Normal NEGATIVE [facility] Comment on above: Performed By: #### 1 1775399, 57888216, 6140301, 6668481661, 14253117, 8985322, 3259174080, 5053476078, 6882479701, 1301841 #### [facility] (DEFAULT) [address] [place] [address] UA Spec Grav 1.015 Normal 1.001-1.035 [facility] Comment on above: Performed By: #### 1 1360284, 57109466, 5580913, 9942233090, 76407267, 1571589, 3846765402, 0534757333, 6545841496, 7283188 #### [facility] (DEFAULT) [address] [place] [address] UA Urobilinogen 0.2 mg/dL Normal 0.2-1.0 [facility] Comment on above: Performed By: #### 1 5014727, 64243026, 6672411, 7449646887, 16452317, 6299659, 1308036811, 5495124431, 7919464967, 4802658 #### [facility] (DEFAULT) [address] [place] [address] Urine Source Clean Catch [facility] Comment on above: Performed By: #### 1 [id number], 61541073, 9685920, 7272894146, 10774219, 3310692, 5442527139, 5303855950, 8609810007, 0418414 #### [facility] (DEFAULT) [address] [place] [address] US 1st Trimesteron 03-09-2022 US 1st Trimester [...] Signature): Sebastian Guzman 03/09/22 6:10 pm Technologist: [facility] [...] Guzman 03/09/22 6:10 pm Technologist: PM Normal [facility] hCG Quantitativeon 2 hCG Quantitative 7.1 mIU/mL High 0.0-0.6 [facility] Comment on above: Result Comment: Post -Menopausal Reference Range is: 0.1-11.6 mIU/mL Performed By: #### 1 7067056, 41890637, 8148327, 6817535095, 72412904, 0687571, 3825072931, 6768760440, 8791524694, 7376861 #### [facility] (DEFAULT) [address] [place] [address] Vital Signs Date Time Vital Sign Value Performing Clinician Facility 12-13-2023 15:00-0500 Body mass index (BMI) [Ratio] 46.69 kg/m2 [facility] Nurse [facility] 12-13-2023 15:00-0500 Body weight 123.38 kg [facility] Nurse [facility] 12-13-2023 15:00-0500 Diastolic blood pressure 78 mm[Hg] [facility] Nurse [facility] 12-13-2023 15:00-0500 Systolic blood pressure 128 mm[Hg] [facility] 05-15-2023 18:30-0400 Body height 161.29 cm Linsey Witt Other [facility] Other 05-15-2023 18:30-0400 Body mass index (BMI) [Ratio] 43.41 kg/m2 Linsey Witt Other [facility] Other 05-15-2023 18:30-0400 Body temperature 99.2 [degF] Linsey Witt Other [facility] Other 05-15-2023 18:30-0400 Body weight 112.95 kg Linsey Witt Other [facility] Other 05-15-2023 18:30-0400 Respiratory rate 18 /min Linsey Witt Other [facility] Other 05-15-2023 18:30-0400 SaO2% (BldA) [Mass fraction] 99 % Linsey Witt Other [facility] Other 05-09-2023 11:00-0400 Body height 161.29 cm Gissel Santana Other [facility] Other 05-09-2023 11:00-0400 Body mass index (BMI) [Ratio] 43.59 kg/m2 Gissel Santana Other [facility] Other 05-09-2023 11:00-0400 Body weight 113.4 kg Gissel Santana Other [facility] Other 05-09-2023 11:00-0400 Diastolic blood pressure 83 mm[Hg] Gissel Santana Other [facility] Other 05-09-2023 11:00-0400 Systolic blood pressure 119 mm[Hg] Gissel Santana Other [facility] Other 04-12-2023 09:00-0400 Body height 161.29 cm Gissel Lamin Other [facility] Other 04-12-2023 09:00-0400 Body mass index (BMI) [Ratio] 43.59 kg/m2 Gissel Santana Other [facility] Other 04-12-2023 09:00-0400 Body weight 113.4 kg Gissel Santana Other [facility] Other 04-12-2023 09:00-0400 Diastolic blood pressure 88 mm[Hg] Gissel Santana Other [facility] Other 04-12-2023 09:00-0400 Systolic blood pressure 129 mm[Hg] Gissel Santana Other [facility] Other 10-11-2022 02:06-0500 Body weight 111.[address] ESTELLA MIN . [facility] Comment on above: Performed By: #### AFPMAT #### [facility] [address] [place] [address] Dr. Alexsander Dickinson Encounters Encounter Date Encounter Type Care Provider Facility Start: 06-19-2024 End: 06-19-2024 ambulatory ESTELLA MECHELLE Not Available Start: 06-05-2024 End: 06-05-2024 ambulatory ESTELLA MECHELLE Not Available Start: 05-19-2024 End: 05-19-2024 ambulatory JULITA VIRGEN Not Available Start: 05-05-2024 End: 05-05-2024 ambulatory [...] 11-06-2023 End: 11-06-2023 ambulatory Gissel Santana Other [facility] Other Start: 11-06-2023 Encounter by compute r link Gissel Santana [facility] Start: 05-22-2023 End: 05-22-2023 ambulatory Olive Howard Other [facility] Other Start: 05-22-2023 Telephone encounter Olive Howard [facility] Start: 05-15-2023 End: 05-15-2023 ambulatory Linsey Witt Facility:[facility] Start: 05-15-2023 End: 05-15-2023 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 Witt Work Phone: [facility] [place] Work Phone: Start: 05-15-2023 End: 05-15-2023 ambulatory TERESA Witt Work Phone: [facility] Work Phone: Start: 05-15-2023 Office outpatient vi sit 25 minutes Linsey Witt [facility] Start: 05-09-2023 End: 05-09-2023 ambulatory Gissel Santana Other [facility] Other Start: 05-09-2023 Office outpatient vi sit 15 minutes Gissel Santana [facility] Start: 04-12-2023 End: 04-12-2023 ambulatory Gissel Santana Other [facility] Other Start: 04-12-2023 Encounter for genera l adult medical examination without abnormal findings Gissel Santana [facility] Start: 04-12-2023 Periodic preventive med est patient 18-39 yrs Gissel Santana [facility] Start: 02-15-[address] ESTELLA MIN . [...] EDT Routine [facility] [address] [place] [id number] Estella Min, DO [address] [place] [address] [facility] Start: 12-13-2023 End: 12-13-2024 [...] Missed menses Expected: 12/13/2023 (Approximate), Expires: 12/13/2024 [facility] Comment on above: Expected: 12/13/2023 (Approximate), Expires: 12/13/2024 Start: 12-13-2023 End: 12-13-2024 US Pelvis transvaginal US OB transvaginal Imaging Routine Missed menses Expected: 12/13/2023 (Approximate), Expires: 12/13/2024 [facility] Comment on above: Expected: 12/13/2023 (Approximate), Expires: 12/13/2024 Start: 05-15-2023 Throat culture Throat Culture [facility] Bacteria identified in Urine by Culture Urine culture Microbiology Routine Missed menses Ordered: 12/13/2023 [facility] Comment on above: Ordered: 12/13/2023 CBC W Auto Different ial panel - Blood CBC and differential Lab Routine Missed menses Ordered: 12/13/2023 [facility] Comment on above: Ordered: 12/13/2023 Hemoglobin A1c/Hemoglobin.total in Blood Hemoglobin A1c Lab Routine Missed menses Ordered: 12/13/2023 [facility] Comment on above: Ordered: 12/13/2023 Hepatitis B virus surface Ag [Presence] in Serum or Plasma by Immunoassay Hepatitis B surface antigen Lab Routine Missed menses Ordered: 12/13/2023 [facility] Comment on above: Ordered: 12/13/2023 Hepatitis C virus Ab [Presence] in Serum or Plasma by Immunoassay Hepatitis C antibody Lab Routine Missed menses Ordered: 12/13/2023 [facility] Comment on above: Ordered: 12/13/2023 HIV-1/HIV-2 antigen/antibody combination immunoassay HIV-1 and HIV-2 antibodies Lab Routine Missed menses Ordered: 12/13/2023 [facility] Comment on above: Ordered: 12/13/2023 Reagin Ab [Presence] in Serum by RPR RPR Lab Routine Missed menses Ordered: 12/13/2023 [facility] Comment on above: Ordered: 12/13/2023 Rubella antibody, IgG Rubella an tibody, IgG Lab Routine Missed menses Ordered: 12/13/2023 [facility] Comment on above: Ordered: 12/13/2023 Payers Date Payer Category Payer Unknown BCBS BCBS xxxxxx [id number] 2020-Present [phone] [address] [place] [address] [id number]. [id number] 1994 Unknown [id number] 2.16.840.1.798855.3.579.2.593 1994 Unknown [id number] 2.16.840.1.584405.3.579.2.593 1994 Unknown [id number] 2.16.840.1.946747.3.579.2.593 1994 Unknown [id number] 2.16.840.1.976180.3.579.2.593 1994 Unknown [id number] 2.16.840.1.012250.3.579.2.593 1994 Unknown [id number] 2.16.840.1.443851.3.579.2.593 1994 Unknown [id number] 2.16.840.1.390278.3.579.2.593 1994 Unknown [id number] 2.16.840.1.315133.3.579.2.593 1994 Unknown [id number] 2.16.840.1.151715.3.579.2.593 1994 Unknown [id number] 2.16.840.1.644252.3.579.2.593 1994 Unknown [id number] 2.16.840.1.196556.3.579.2.593 1994 Unknown [id number] 2.16.840.1.220640.3.579.2.593 1994 Unknown [id number] 2.16.840.1.437571.3.579.2.593 1994 Unknown [id number] 2.16.840.1.299478.3.579.2.593 1994 Unknown [id number] 2.16.840.1.654623.3.579.2.593 1994 Unknown [id number] 2.16.840.1.708238.3.579.2.593 1994 Unknown [id number] 2.16.840.1.056964.3.579.2.593 1994 Unknown [id number] 2.16.840.1.990531.3.579.2.593 1994 Unknown [id number] 2.16.840.1.418836.3.579.2.593 1994 Unknown [id number] 2.16.840.1.499073.3.579.2.593 1994 Unknown [id number] 2.16.840.1.992650.3.579.2.593 1994 Unknown [id number] 2.16.840.1.955170.3.579.2.593 1994 Unknown [id number] 2.16.840.1.747290.3.579.2.593 1994 Unknown [id number] 2.16.840.1.755330.3.579.2.593 1994 Unknown [id number] 2.16.840.1.476454.3.579.2.1259 1994 Unknown [id number] 2.16.840.1.504156.3.579.2.1259 1994 Unknown [id number] 2.16.840.1.098859.3.579.2.1259 1994 Unknown [id number] 2.16.840.1.460608.3.579.2.1259 1994 Unknown [id number] 2.16.840.1.853768.3.579.2.1259 1994 Unknown [id number] 2.16.840.1.951907.3.579.2.1259 1994 Unknown [id number] 2.16.840.1.719380.3.579.2.1259 1994 Unknown [id number] 2.16.840.1.076682.3.579.2.1259 1994 Unknown [id number] 2.16.840.1.217836.3.579.2.1259 1959 Self-pay 1959 Unknown [id number] Unknown [id number] 2.16.840.1.608711.3.579.2.593 Unknown [id number] 2.16.840.1.418641.3.579.2.531 Social History Date Type Detail Facility Unknown if ever smoked [facility] [employer] Other Start: 03-12-2023 Sex Assigned At [facility] [employer] Other Start: 1995 Sex Assigned At Female F [facility] Start: 03-12-2023 Tobacco smoking status MTIS Never smoked tobacco [facility] Start: 03-12-2023 [...] or undercooked meat, and stay away from [facility]. Patient has also been advised to [...] Meenakshi Rosenthal MA documented in this encounter [facility] 05-15-2023 Evaluation note Encounter Date [...] understanding and is agreeable to treatment plan. [facility] Other 07-12-2023 Evaluation note* Encounter Date Diagnosis Assessment Notes Treatment Notes Treatment Clinical Notes Apr, Anxiety disorder, unspecified (ICD-10 - F41.9) Pt states that she, and her , agree that she is doing better on the medication. Continues to have stress, but is dealing more appropriately. Would like to continue this med and this dose. f/u6 months, sooner if needed. [facility] Other 06-15-2023 Evaluation note* Encounter Date [...] help for overwhelm. followup in 1 month [facility] [facility] Other 05-12-2022 NoteEducation Materials Cardiovascular Hypertension, [...] without skin, beans, e (more content not included)...[facility] HospitalEvaluation noteNo assessment information availableGal[facility] Work Phone: Evaluation noteNo InformationNortL[facility] [employer] Other Evaluation note* Diagnosis Missed menses documented in this encounter [facility] N[facility]ative - Reported* Type Description Date Surgical History C-sect 2019 Surgical History C-sect 2022 [employer] [facility] Other History general Narrative - Reported* Type Description Date Medical History Anxiety disorder, unspecified Surgical History C-sect 2019 Surgical History C-sect 2022 Hospitalization History SEE SURGICAL [facility] Other History general Narrative - Reported* Type Description Date Medical History Anxiety disorder, unspecified Medical History Gestational diabetes Surgical History C-sect 2019 Surgical History C-sect 2022 Hospitalization History SEE SURGICAL [facility] Other Summary Purpose Family History No Family History Records FoundNo Family History Records FoundNo Family History Records FoundNo Family History Records Found Advance Directives No Advanced Directives Records FoundNo Advanced Directives Records FoundNo Advanced Directives Records FoundNo Advanced Directives Records Found Additional Source Comments INFORMATION SOURCE (unrecogn ized section and content) DATE CREATED AUTHOR 03/18/2022 [facility] DATE CREATED AUTHOR AUTHOR'S ORGANIZ ATION 02/15/2023 [facility] DATE CREATED AUTHOR AUTHOR'S ORGANIZ ATION 05/24/2023 [facility] DATE CREATED AUTHOR AUTHOR'S ORGANIZ ATION 06/21/2024 [facility] EPIC REASON FOR VISIT (unrecogniz ed section and content) Reason Comments Amenorrhea Care Teams (unrecognized sec tion and content) Team Status: Inactive Member Role Status Dates Linsey Witt APRN Attending Provider Active [employer]il[employer] Relationship Specialty Start Date End Date Gissel Santana MD [address] [place] [address] PCP - General Family Medicine [...] BE BASED ON THE PRIMARY CLINICAL RECORDS. [facility]. provides no warranty or guarantee of the accuracy or completeness of information in this document.
[2024-06-25 11:32] VITALS: BP 123/77; PULSE 88
== END 2024-06-25 12:14 | disposition home or self-care (01) ==
LOC: US 06:58 → FBC 11:09
PROVIDERS: Visit Provider Obstetrics & Gynecology
DX: O24.419 Gestational diabetes mellitus in pregnancy, unspecified control (principal); Z3A.36 36 weeks gestation of pregnancy
CPT/HCPCS: 76818

== ENCOUNTER 2024-06-26 11:32 | Outpatient (OUT) | payer BC, SELFPAY ==
--- OUTSIDE RECORDS SUMMARY | 2024-06-26 11:44 | XMS_ITS | CCD ---
Author Organization [facility] Care Team Providers Care Loan Review Analyst Name Role Phone MECHELLE ., DR SORIA [...] Unavailable MECHELLE ., DR SORIA Admitting Unavailable [place], Sebastian Consulting Unavailable SANTANA, DR GISSEL Teresa [...] Interpretation and review of laboratory results Abnormal [facility] Health[facility] re Preg Test, Ur Positive [facility] e Urinalysis macro (dipstick) panel (U)on 12-13-2023 Bilirubin, UA Negative Negative - 4(70) +++ mg/dL [facility] Blood, UA Negative Negative - 50 Sal/mcL [facility] Clarity, UA Clear [facility] Pipermn re Color, UA Yellow [facility] [employer] e Glucose, UA Negative Negative - 1999(110) ++++ mg/dL [facility] Interpretation and review of laboratory results Abnormal [facility] re Ketones, UA Positive Negative - 160(16) ++++ mg/dL [facility] Leukocytes, UA Negative Negative - 500+++ Lizzy/mcL [facility] Nitrite, UA Negative Negative - Positive [facility] pH, UA 7.0 5 - 9 [facility] [employer] Protein, UA Positive Negative - 1999(20) ++++ mg/dL [facility] Spec Grav, UA 1.030 1 - 1.03 [facility] Urobilinogen, UA 0.2 0.2 - 12 mg/dL [facility] Quick Strepon 05-15-2023 S. pyogenes Org specific cx Ql (Throat) Negative [employer] Other Quick Strep [employer] Other Throat Cultureon 05-15-2023 Throat culture Heavy Normal Respiratory John 2 Days PERFORMED BY: [facility] [address] [place] [address] PATHOLOGIST TOOL DISTRIBUTOR ARACELI HAYWOOD M.D. Normal [facility] Comment on above: Performed By: #### C UT #### [facility] [address] GROUP B STREP CULTUREon 01-27 S. [...] S F Tetracycline <=0.25 S F Normal [facility] Comment on above: Performed By: #### A FPMAT #### [facility] [address] [place] [address] Dr. Alexsander Dickinson CBC AUTO DIFFon 02-02-2023 BASO # 0.0 103/ul Normal 0.0-0.1 [facility] Comment on above: Performed By: #### C BC #### [facility] [address] [place] [address] Dr. Alexsander Dickinson Basophils/100 WBC (Bld) 0.2 % Normal 0.2-2.0 [facility] Comment on above: Performed By: #### C BC #### [facility] [address] [place] [address] Dr. Alexsander Dickinson EO # 0.0 103/ul Normal 0.0-0.7 [facility] Comment on above: Performed By: #### C BC #### [facility] [address] [place] [address] Dr. Alexsander Dickinson Eosinophils/100 WBC (Bld) 0.0 % Critically low 0.9-7.0 [facility] Comment on above: Performed By: #### C BC #### [facility] [address] [place] [address] Dr. Alexsander Dickinson Erythrocyte distribution width (RBC) [Ratio] 12.5 % Normal 11.0-15.0 [facility] Comment on above: Performed By: #### C BC #### [facility] [address] [address] [address] Alexsander Dickinson Hematocrit (Bld) [Volume fraction] 32.9 % Critically low 36.0-48.0 [facility] Comment on above: Performed By: #### C BC #### [facility] [address] [address] [address] Alexsander Dickinson Hemoglobin (Bld) [Mass/Vol] 10.7 g/dL Critically low 12.0-16.0 [facility] Comment on above: Performed By: #### C BC #### [facility] [address] [place] [address] Dr. Alexsander Dickinson IG # 0.12 10e3/ul Critically high 0.00-0.03 [facility] Comment on above: Performed By: #### C BC #### [facility] [address] [place] [address] Dr. Alexsander Dickinson IG % 0.7 % Critically high 0.0-0.5 [facility] Comment on above: Performed By: #### C BC #### [facility] [address] [place] [address] Dr. Alexsander Dickinson LYMPH # 1.1 103/ul Critically low 1.2-3.8 [facility] Comment on above: Performed By: #### C BC #### [facility] [address] [place] [address] Dr. Alexsander Dickinson Lymphocytes/100 WBC (Bld) 6.4 % Critically low 20.5-60.0 [facility] Comment on above: Performed By: #### C BC #### [facility] [address] [address] [address] Alexsander Dickinson MANUAL DIFF REQ NO Normal [facility] Comment on above: Performed By: #### C BC #### [facility] [address] [place] [address] Dr. Alexsander Dickinson MCH (RBC) [Entitic mass] 26.1 pg Critically low 26.7-34.0 [facility] Comment on above: Performed By: #### C BC #### [facility] [address] [address] [address] Alexsander Dickinson MCHC (RBC) [Mass/Vol] 32.5 g/dL Normal 29.9-35.2 [facility] Comment on above: Performed By: #### C BC #### [facility] [address] [address] [address] Alexsander Dickinson MCV (RBC) [Entitic vol] 80.2 fL Critically low 81.0-99.0 [facility] Comment on above: Performed By: #### C BC #### [facility] [address] [address] [address] Alexsander Dickinson MONO # 0.4 103/ul Normal 0.3-0.8 [facility] Comment on above: Performed By: #### C BC #### [facility] [address] [address] [address] Alexsander Dickinson Monocytes/100 WBC (Bld) 2.1 % Normal 1.7-12.0 [facility] Comment on above: Performed By: #### C BC #### [facility] [address] [address] [address] Alexsander Dickinson NEUT # 15.5 103/ul Critically high 1.4-6.5 [facility] Comment on above: Performed By: #### C BC #### [facility] [address] [address] [address] Alexsander Dickinson Neutrophils/100 WBC (Bld) 90.6 % Critically high 43.0-75.0 [facility] Comment on above: Performed By: #### C BC #### [facility] [address] [address] [address] Alexsander Dickinson Platelet mean volume (Bld) [Entitic vol] 10.7 fL Normal 9.5-13.5 [facility] Comment on above: Performed By: #### C BC #### [facility] [address] [address] [address] Alexsander Dickinson PLT 310 103/ul Normal 150-450 [facility] Comment on above: Performed By: #### C BC #### [facility] [address] [address] [address] Alexsander Dickinson RBC 4.10 106/ul Critically low 4.20-5.40 [facility] Comment on above: Performed By: #### C BC #### [facility] [address] [place] [address] Dr. Alexsander Dickinson WBC 17.1 103/ul Critically high 4.0-11.0 [facility] Comment on above: Performed By: #### C BC #### [facility] [address] [place] [address] Dr. Alexsander Dickinson CBC AUTO DIFFon 02-01-2023 BASO # 0.0 103/ul Normal 0.0-0.1 [facility] Comment on above: Performed By: #### A 1C #### [facility] [address] [place] [address] Dr. Alexsander Dickinson Basophils/100 WBC (Bld) 0.2 % Normal 0.2-2.0 [facility] Comment on above: Performed By: #### A 1C #### [facility] [address] [place] [address] Dr. Alexsander Dickinson EO # 0.0 103/ul Normal 0.0-0.7 [facility] Comment on above: Performed By: #### A 1C #### [facility] [address] [place] [address] Dr. Alexsander Dickinson Eosinophils/100 WBC (Bld) 0.4 % Critically low 0.9-7.0 [facility] Comment on above: Performed By: #### A 1C #### [facility] [address] [place] [address] Dr. Alexsander Dickinson Erythrocyte distribution width (RBC) [Ratio] 12.9 % Normal 11.0-15.0 [facility] Comment on above: Performed By: #### A 1C #### [facility] [address] [place] [address] Dr. Alexsander Dickinson Hematocrit (Bld) [Volume fraction] 34.2 % Critically low 36.0-48.0 [facility] Comment on above: Performed By: #### A 1C #### [facility] [address] [address] [address] Alexsander Dickinson Hemoglobin (Bld) [Mass/Vol] 11.4 g/dL Critically low 12.0-16.0 [facility] Comment on above: Performed By: #### A 1C #### [facility] [address] [address] [address] Alexsander Dickinson IG # 0.04 10e3/ul Critically high 0.00-0.03 [facility] Comment on above: Performed By: #### A 1C #### [facility] [address] [address] [address] Alexsander Dickinson IG % 0.5 % Normal 0.0-0.5 [facility] Comment on above: Performed By: #### A 1C #### [facility] [address] [address] [address] Alexsander Dickinson LYMPH # 2.1 103/ul Normal 1.2-3.8 [facility] Comment on above: Performed By: #### A 1C #### [facility] [address] [place] [address] Dr. Alexsander Dickinson Lymphocytes/100 WBC (Bld) 23.9 % Normal 20.5-60.0 [facility] Comment on above: Performed By: #### A 1C #### [facility] [address] [place] [address] Dr. Alexsander Dickinson MANUAL DIFF REQ NO Normal [facility] Comment on above: Performed By: #### A 1C #### [facility] [address] [address] [address] Alexsander Dickinson MCH (RBC) [Entitic mass] 27.0 pg Normal 26.7-34.0 [facility] Comment on above: Performed By: #### A 1C #### [facility] [address] [place] [address] Dr. Alexsander Dickinson MCHC (RBC) [Mass/Vol] 33.3 g/dL Normal 29.9-35.2 [facility] Comment on above: Performed By: #### A 1C #### [facility] [address] [address] [address] Alexsander Dickinson MCV (RBC) [Entitic vol] 81.0 fL Normal 81.0-99.0 [facility] Comment on above: Performed By: #### A 1C #### [facility] [address] [address] [address] Alexsander Dickinson MONO # 0.5 103/ul Normal 0.3-0.8 [facility] Comment on above: Performed By: #### A 1C #### [facility] [address] [place] [address] Dr. Alexsander Dickinson Monocytes/100 WBC (Bld) 6.0 % Normal 1.7-12.0 [facility] Comment on above: Performed By: #### A 1C #### [facility] [address] [place] [address] Dr. Alexsander Dickinson NEUT # 5.9 103/ul Normal 1.4-6.5 [facility] Comment on above: Performed By: #### A 1C #### [facility] [address] [place] [address] Dr. Alexsander Dickinson Neutrophils/100 WBC (Bld) 69.0 % Normal 43.0-75.0 [facility] Comment on above: Performed By: #### A 1C #### [facility] [address] [place] [address] Dr. Alexsander Dickinson Platelet mean volume (Bld) [Entitic vol] 10.5 fL Normal 9.5-13.5 [facility] Comment on above: Performed By: #### A 1C #### [facility] [address] [place] [address] Dr. Alexsander Dickinson PLT 275 103/ul Normal 150-450 [facility] Comment on above: Performed By: #### A 1C #### [facility] [address] [place] [address] Dr. Alexsander Dickinson RBC 4.22 106/ul Normal 4.20-5.40 [facility] Comment on above: Performed By: #### A 1C #### [facility] [address] [address] [address] Alexsander Dickinson WBC 8.6 103/ul Normal 4.0-11.0 [facility] Comment on above: Performed By: #### A 1C #### [facility] [address] [place] [address] Dr. Alexsander Dickinson LDHon 02-01-2023 LDH 124 U/L Normal 81-234 [facility] Comment on above: Performed By: #### C MP, LDH, URIC #### [facility] [address] [place] [address] Dr. Alexsander Dickinson POINT OF CARE GLUCOSEon Glucose [Mass/Vol] 98 mg/dL Normal 74-106 [facility] Comment on above: Performed By: #### A 1C #### [facility] [address] [place] [address] Dr. Alexsander Dickinson PROF 14(COMP METB)on 023 Albumin [Mass/Vol] 2.5 g/dL Critically low 3.4-5.0 [facility] Comment on above: Performed By: #### C MP, LDH, URIC #### [facility] [address] [place] [address] Dr. Alexsander Dickinson Albumin/Globulin [Mass ratio] 0.6 {ratio} Normal [facility] Comment on above: Performed By: #### C MP, LDH, URIC #### [facility] [address] [place] [address] Dr. Alexsander Dickinson ALP [Catalytic activity/Vol] 138 U/L Critically high 46-116 [facility] Comment on above: Performed By: #### C MP, LDH, URIC #### [facility] [address] [place] [address] Dr. Alexsander Dickinson ALT [Catalytic activity/Vol] 15 U/L Normal 14-59 [facility] Comment on above: Performed By: #### C MP, LDH, URIC #### [facility] [address] [place] [address] Dr. Alexsander Dickinson Anion gap [Moles/Vol] 14.5 mmol/L Normal [facility] Comment on above: Performed By: #### C MP, LDH, URIC #### [facility] [address] [address] [address] Alexsander Dickinson AST [Catalytic activity/Vol] 8 U/L Critically low 15-37 [facility] Comment on above: Performed By: #### C MP, LDH, URIC #### [facility] [address] [place] [address] Dr. Alexsander Dickinson Bilirubin [Mass/Vol] 0.2 mg/dL Normal 0.2-1.0 [facility] Comment on above: Performed By: #### C MP, LDH, URIC #### [facility] [address] [place] [address] Dr. Alexsander Dickinson Calcium [Mass/Vol] 8.6 mg/dL Normal 8.5-10.1 [facility] Comment on above: Performed By: #### C MP, LDH, URIC #### [facility] [address] [place] [address] Dr. Alexsander Dickinson Chloride [Moles/Vol] 103 mmol/L Normal 98-107 [facility] Comment on above: Performed By: #### C MP, LDH, URIC #### [facility] [address] [place] [address] Dr. Alexsander Dickinson CO2 [Moles/Vol] 23.7 mmol/L Normal 21.0-32.0 [facility] Comment on above: Performed By: #### C MP, LDH, URIC #### [facility] [address] [place] [address] Dr. Alexsander Dickinson Creatinine [Mass/Vol] 0.61 mg/dL Normal 0.55-1.02 [facility] Comment on above: Performed By: #### C MP, LDH, URIC #### [facility] [address] [place] [address] Dr. Alexsander Dickinson EGFR-AF PRYDEINIG >60 Normal >=60 [facility] Comment on above: Performed By: #### C MP, LDH, URIC #### [facility] [address] [place] [address] Dr. Alexsander Dickinson EGFR-NON AF PRYDEINIG >60 Normal >=60 [facility] Comment on above: Performed By: #### C MP, LDH, URIC #### [facility] [address] [address] [address] Alexsander Dickinson Globulin (S) [Mass/Vol] 4.1 g/dL Normal [facility] Comment on above: Performed By: #### C MP, LDH, URIC #### [facility] [address] [address] [address] Alexsander Dickinson Glucose [Mass/Vol] 123 mg/dL Critically high 74-106 T [facility] Comment on above: Performed By: #### C MP, LDH, URIC #### [facility] [address] [address] [address] Alexsander Dickinson Potassium [Moles/Vol] 4.2 mmol/L Normal 3.5-5.1 [facility] Comment on above: Performed By: #### C MP, LDH, URIC #### [facility] [address] [place] [address] Dr. Alexsander Dickinson Protein [Mass/Vol] 6.6 g/dL Normal 6.4-8.2 [facility] Comment on above: Performed By: #### C MP, LDH, URIC #### [facility] [address] [place] [address] Dr. Alexsander Dickinson Sodium [Moles/Vol] 137 mmol/L Normal 136-145 [facility] Comment on above: Performed By: #### C MP, LDH, URIC #### [facility] [address] [place] [address] Dr. Alexsander Dickinson Urea nitrogen [Mass/Vol] 5.0 mg/dL Critically low 7.0-18.0 [facility] Comment on above: Performed By: #### C MP, LDH, URIC #### [facility] [address] [place] [address] Dr. Alexsander Dickinson Urea nitrogen/Creatinine [Mass ratio] 8.2 mg/mg Normal [facility] Comment on above: Performed By: #### C MP, LDH, URIC #### [facility] [address] [place] [address] Dr. Alexsander Dickinson PROTIMEon 02-01-2023 INR Coag (PPP) [Relative time] {INR} Normal [facility] Comment on above: Performed By: #### H BSANS #### [facility] [address] [place] [address] Dr. Alexsander Dickinson INR GUIDELINES SEE BELOW Normal [facility] Comment on above: Result Comment: CAROLEE RED INR: 2.0 - 3.0 CONDITIONS NOT LISTED BELOW 2.5 - 3.5 FOR PROSTHETIC HEART VALVE REPLACEMENT 2.5 - 3.5 RECURRENT THROMBOSIS Performed By: #### H BSANS #### [facility] [address] [place] [address] Dr. Alexsander Dickinson PT Coag (PPP) [Time] 9.2 s Normal 9.0-11.6 [facility] Comment on above: Performed By: #### H BSANS #### [facility] [address] [place] [address] Dr. Alexsander Dickinson PTTon 02-01-2023 aPTT Coag (Bld) [Time] 25.9 s Normal 22.3-36.2 [facility] Comment on above: Performed By: #### H BSANS #### [facility] [address] [place] [address] Dr. Alexsander Dickinson TYPE AND SCREENon 02-01-2023 TYPE AND SCREEN Negative Normal [facility] Comment on above: Performed By: #### A FPMAT #### [facility] [address] [place] [address] Dr. Alexsander Dickinson URIC ACID SERUMon 02-01-2023 Urate [Mass/Vol] 5.5 mg/dL Normal 2.6-6.0 [facility] Comment on above: Performed By: #### C MP, LDH, URIC #### [facility] [address] [place] [address] Dr. Alexsander Dickinson US PREG BIOPHY W [...] by: DEE GALLEGOS Date: 2023-02-01 15:04 Normal [facility] US PREG BIOPHY W NON [...] by: SEBASTIAN HENRY Date: 2023-01-25 15:18 Normal [facility] PREG BIOPHY W NON STRESSo n 01-19-2023 [...] by: DEE GALLEGOS Date: 2023-01-19 06:16 Normal [facility] US PREG BIOPHY W NON [...] Date: 2023-01-11 15:38 Normal [facility] US PREG GROWTHon 01-11-2023 US PREG GROWTH [...] Date: 2023-01-11 16:42 Normal [facility] GTT 3 HR PREGon 12-01-2022 Glucose [Mass/Vol] 104 mg/dL Normal 74-106 [facility] Comment on above: Performed By: #### A 1C #### [facility] [address] [address] [address] Alexsander Dickinson Glucose [Mass/Vol] 182 mg/dL Normal [facility] Comment on above: Performed By: #### A 1C #### [facility] [address] [address] [address] Alexsander Dickinson Glucose [Mass/Vol] 114 mg/dL Normal [facility] Comment on above: Performed By: #### A 1C #### [facility] [address] [address] [address] Alexsander Dickinson Glucose [Mass/Vol] 73 mg/dL Normal [facility] Comment on above: Performed By: #### A 1C #### [facility] [address] [address] [address] Alexsander Dickinson PAP ACOG PANEL 2: 20 to 28on 11-18-2022 . . Normal [facility] Comment on above: Performed By: #### A 1C #### [facility] [address] [address] [address] Alexsander Dickinson Age Gdln ACOG Testing - [facility] Comment on above: Performed By: #### A 1C #### [facility] [address] [address] [address] Alexsander Dickinson DIAGNOSIS: Comment [facility] Comment on above: Result Comment: NEGA TIVE FOR INTRAEPITHELIAL LESION OR MALIGNANCY. Performed By: #### A 1C #### [facility] [address] [place] [address] Dr. Alexsander Dickinson Methodology: Comment [facility] Comment on above: Result Comment: This liquid based ThinPrep(R) pap test was screened with the use of an image guided system. Performed By: #### A 1C #### [facility] [address] [place] [address] Dr. Alexsander Dickinson Note: Comment [facility] Comment on above: Result Comment: [...] By: #### A 1C #### [facility] [address] [address] [address] Alexsander Dickinson Performed by: Comment Normal [facility] Comment on above: Result Comment: Cici Clarke, Cota (ASCP) Performed By: #### A 1C #### [facility] [address] [place] [address] Dr. Alexsander Dickinson Reflex Criteria: Comment [facility] Comment on above: Result Comment: The HPV DNA reflex criteria were not met with this specimen result therefore, no HPV testing was performed. . Performed By: #### A 1C #### [facility] [place] [facility] [address] [place] [address] Dr. Alexsander Dickinson Specimen adequacy: Comment Normal [facility] Comment on above: Result Comment: Sati sfactory for evaluation. No endocervical component is identified. Performed By: #### A 1C #### [facility] [place] [facility] [address] [place] [address] Dr. Alexsander Dickinson CHLAMYDIA/GONOCOCCUS ZUNILDA (SW AB/URINE/PAPon 11-17-2022 Chlamydia trachomatis, ZUNILDA Negative Normal Negative [facility] Comment on above: Performed By: #### A 1C #### [facility] [place] [facility] [address] [place] [address] Dr. Alexsander Dickinson Neisseria gonorrhoeae, ZUNILDA Negative Normal Negative [facility] Comment on above: Performed By: #### A 1C #### [facility] [place] [facility] [address] [place] [address] Dr. Alexsander Dickinson VAGINITIS/VAGINOSIS DNA PROB Jose De Jesus 11-16-2022 Reema species Negative Normal Negative [facility] Comment on above: Performed By: #### V AGINT #### [facility] [place] [facility] [address] [place] [address] Dr. Alexsander Dickinson Gardnerella vaginalis Negative Normal Negative [facility] [place] Comment on above: Performed By: #### V AGINT #### [facility] [place] [facility] [address] [place] [address] Dr. Alexsander Dickinson Trichomonas vaginalis Negative Normal Negative [facility] Comment on above: Performed By: #### V AGINT #### [facility] [place] [facility] [address] [place] [address] Dr. Alexsander Dickinson US PREG INCOMPLETE ANATOMYon 11-14-2022 US PREG INCOMPLETE ANATOMY EXAMINATION: US PREG INCOMPLETE ANATOMY HISTORY: screening COMPARISON: No relevant comparison available. FINDINGS: Heart rate: 150 bpm position: Variable Anatomy: 4.8 x 5.8 mm choroid plexus cyst is again identified IMPRESSION: Stable choroid plexus cyst Electronically authenticated by: SEBASTIAN HENRY Date: 2022-11-14 16:19 Normal [facility] [place] FREE T4on 10-19-2022 Free T4 [Mass/Vol] 0.89 ng/dL Normal 0.76-1.46 [facility] Comment on above: Performed By: #### H BSANS #### [facility] [place] [facility] [address] [place], [place] [address] Dr. Alexsander Dickinson TSHon 10-19-2022 TSH 1.303 uIU/mL Normal 0.358-3.740 [facility] Comment on above: Performed By: #### H BSANS #### [facility] [place] [facility] [address] [place], [place] [address] Dr. Alexsander Dickinson US PREG ANATOMY SINGLEon [...] Date: 2022-10-17 20:42 Normal [facility] [place] AFP MATERNAL FOR SPINA BIFID Aon 10-11-2022 AFP MoM 1.49 Normal [facility] Comment on above: Performed By: #### A FPMAT #### [facility] [place] [facility] [address] [address] [address] Alexsander Dickinson AFP Value 60.8 ng/mL Normal [facility] Comment on above: Performed By: #### A FPMAT #### [facility] [place] [facility] [address] [address] [address] Alexsander Dickinson AFP, Serum for Spina Bifida Report Normal [facility] [place] Comment on above: Performed By: #### A FPMAT #### [facility] [place] [facility] [address] [address] [address] Alexsander Dickinson Comment Comment Normal [facility] Comment on above: Result Comment: Niurka Patricia, Ph.D., [facility] Director . References: Available Upon Request. . Multiples Of Median Cutoffs For AFP Elevations Fonseca 2.5 Black 2.8 IDD 2.0 Twins 4.5 Abbreviation Definitions IDD - Insulin Dep Diabetes OSBR - Open Spina Bifida Risk . For further inquiries contact [employer] [facility] [employer] at [phone]. . This test was developed and its performance characteristics determined by [employer]. It has not been cleared or approved by the Food and Drug Administration. Performed By: #### A FPMAT #### [facility] [place] [facility] [address] [place] [address] Dr. Alexsander Tiwari Age Collection Date 19.4 weeks Normal [facility] Comment on above: Performed By: #### A FPMAT #### [facility] [place] [facility] [address] [place], [place] [id number] Dr. Alexsander Dickinson Gestat, Age Based on NILE [facility] Comment on above: Result Comment: 02/2023 Recalculations are not recommended when gestational dating by LMP and ultrasound are within 10 days. Performed By: #### A FPMAT #### [facility] [place] [facility] [address] [place] [address] Dr. Alexsander Dickinson Insulin Dep Diabetes No Normal [facility] Comment on above: Performed By: #### A FPMAT #### [facility] [place] [facility] [address] [place] [address] Dr. Alexsander Dickinson Interpretation Comment Normal [facility] Comment on above: Result Comment: [...] Customer Services to discuss available options. The [employer] recommends amniocentesis be offered to women age 35 and older. Performed By: #### A FPMAT #### [facility] [place] [facility] [address] [place] [address] Dr. Alexsander Dickinson [age] Normal [facility] Comment on above: Performed By: #### A FPMAT #### [facility] [place] [facility] [address] [place] [address] Dr. Alexsander Dickinson Multiple Gestation No Normal [facility] Comment on above: Performed By: #### A FPMAT #### [facility] [place] [facility] [address] [place] [address] Dr. Alexsander Dickinson OSBR Risk 1 [place] [address] Normal [facility] Comment on above: Performed By: #### A FPMAT #### [facility] [place] [facility] [address] [place] [address] Dr. Alexsander Dickinson PDF . Normal [facility] Comment on above: Performed By: #### A FPMAT #### [facility] [place] [facility] [address] [place] [address] Dr. Alexsander Dickinson Race Normal [facility] Comment on above: Performed By: #### A FPMAT #### [facility] [place] [facility] [address] [place] [address] Dr. Alexsander Dickinson Test Results: Negative Normal [facility] Comment on above: Performed By: #### A FPMAT #### [facility] [place] [facility] [address] [place] [address] Dr. Alexsander Dickinson GTT 3 HR PREGon 09-29-2022 Glucose [Mass/Vol] 99 mg/dL Normal 74-106 [facility] Comment on above: Performed By: #### A FPMAT #### [facility] [place] [facility] [address] [address] [address] Alexsander Dickinson Glucose [Mass/Vol] 173 mg/dL Normal [facility] Comment on above: Performed By: #### A FPMAT #### [facility] [place] [facility] [address] [address] [address] Alexsander Dickinson Glucose [Mass/Vol] 151 mg/dL Normal [facility] Comment on above: Performed By: #### A FPMAT #### [facility] [place] [facility] [address] [place] [address] Dr. Alexsander Dickinson Glucose [Mass/Vol] 76 mg/dL Normal [facility] Comment on above: Performed By: #### A FPMAT #### [facility] [place] [facility] [address] [place] [address] Dr. Alexsander Dickinson GLUCOSE - 1HRon 09-20-2022 Glucose [Mass/Vol] 159 mg/dL Critically high 74-106 T [facility] Comment on above: Performed By: #### H BSANS #### [facility] [place] [facility] [address] [place] [address] Dr. Alexsander Dickinson HEP B SURFACE ANTIGEN SCREEN on 08-17-2022 HBsAg Screen Negative Normal Negative [facility] Comment on above: Performed By: #### H BSANS #### [facility] [place] [facility] [address] [place] [address] Dr. Alexsander Dickinson HEPATITIS C VIRUS AB W/ REFL EX QUANTon 08-17-2022 HCV AB <0.1 Normal 0.0-0.9 [facility] Comment on above: Performed By: #### A 1C #### [facility] [place] [facility] [address] [place] [address] Dr. Alexsander Dickinson Interpretation: Comment Normal [facility] Comment on above: Result Comment: Nega tive Not infected with HCV, unless recent infection is suspected or other evidence exists to indicate HCV infection. Performed By: #### A 1C #### [facility] [place] [facility] [address] [place] [address] Dr. Alexsander Dickinson HIV 1 AND 2 WITH REFLEXon HIV Screen 4th Generation wRfx Non-Reactive Normal Non Reactive [facility] [place] Comment on above: Result Comment: HIV Negative HIV-1/HIV-2 antibodies and HIV-1 p24 antigen were NOT detected. There is no laboratory evidence of HIV infection. Performed By: #### H IV12 #### [facility] [place] [facility] [address] [address] [address] Alexsander Dickinson RPR QUANTon 08-17-2022 Rapid Plasma Reagin, Quant Non-Reactive Normal NonRea<1:1 [facility] [place] Comment on above: Result Comment: Plea se Note: This test does not meet current guidelines for screening and diagnosis of syphilis. This test is intended for following treatment response in patients being treated for syphilis infection. To screen for syphilis infection, a reflex cascade that includes both RPR and a treponema-specific assay should be utilized, such as Treponema pallidum (Syphilis) Screening [place] (079617) or Rapid Plasma Reagin (RPR) Test With Reflex to Quantitative RPR and Confirmatory Treponema pallidum Antibodies (913452). Performed By: #### H BSANS #### [facility] [place] [facility] [address] [place] [address] Dr. Alexsander Dickinson RUBELLA AB IGGon 08-17-2022 Rubella Antibodies, IgG 11.90 index Normal Immune >0.99 [facility] [place] Comment on above: Result Comment: Non- immune <0.90 Equivocal 0.90 - 0.99 Immune >0.99 Performed By: #### H BSANS #### [facility] [place] [facility] [address] [place] [address] Dr. Alexsander Dickinson CBC AUTO DIFFon 08-16-2022 BASO # 0.1 103/ul Normal 0.0-0.1 [facility] [place] Comment on above: Performed By: #### H BSANS #### [facility] [place] [facility] [address] [place] [address] Dr. Alexsander Dickinson Basophils/100 WBC (Bld) 0.6 % Normal 0.2-2.0 [facility] [place] Comment on above: Performed By: #### H BSANS #### [facility] [place] [facility] [address] [address] [address] Alexsander Dickinson EO # 0.1 103/ul Normal 0.0-0.7 [facility] Comment on above: Performed By: #### H BSANS #### [facility] [place] [facility] [address] [address] [address] Alexsander Dickinson Eosinophils/100 WBC (Bld) 0.9 % Normal 0.9-7.0 [facility] Comment on above: Performed By: #### H BSANS #### [facility] [place] [facility] [address] [place] [address] Dr. Alexsander Dickinson Erythrocyte distribution width (RBC) [Ratio] 12.9 % Normal 11.0-15.0 [facility] Comment on above: Performed By: #### H BSANS #### [facility] [place] [facility] [address] [place] [address] Dr. Alexsander Dickinson Hematocrit (Bld) [Volume fraction] 39.0 % Normal 36.0-48.0 [facility] Comment on above: Performed By: #### H BSANS #### [facility] [place] [facility] [address] [place] [address] Dr. Alexsander Dickinson Hemoglobin (Bld) [Mass/Vol] 12.9 g/dL Normal 12.0-16.0 [facility] Comment on above: Performed By: #### H BSANS #### [facility] [place] [facility] [address] [place] [address] Dr. Alexsander Dickinson IG # 0.04 10e3/ul Critically high 0.00-0.03 [facility] Comment on above: Performed By: #### H BSANS #### [facility] [place] [facility] [address] [place] [address] Dr. Alexsander Dickinson IG % 0.4 % Normal 0.0-0.5 [facility] Comment on above: Performed By: #### H BSANS #### [facility] [place] [facility] [address] [place] [address] Dr. Alexsander Dickinson LYMPH # 2.4 103/ul Normal 1.2-3.8 [facility] Comment on above: Performed By: #### H BSANS #### [facility] [place] [facility] [address] [place] [address] Dr. Alexsander Dickinson Lymphocytes/100 WBC (Bld) 26.3 % Normal 20.5-60.0 [facility] Comment on above: Performed By: #### H BSANS #### [facility] [place] [facility] [address] [place] [address] Dr. Alexsander Dickinson MANUAL DIFF REQ NO Normal [facility] Comment on above: Performed By: #### H BSANS #### [facility] [place] [facility] [address] [place] [address] Dr. Alexsander Dickinson MCH (RBC) [Entitic mass] 28.4 pg Normal 26.7-34.0 [facility] Comment on above: Performed By: #### H BSANS #### [facility] [place] [facility] [address] [place] [address] Dr. Alexsander Dickinson MCHC (RBC) [Mass/Vol] 33.1 g/dL Normal 29.9-35.2 [facility] Comment on above: Performed By: #### H BSANS #### [facility] [place] [facility] [address] [place] [address] Dr. Alexsander Dickinson MCV (RBC) [Entitic vol] 85.7 fL Normal 81.0-99.0 [facility] Comment on above: Performed By: #### H BSANS #### [facility] [place] [facility] [address] [place] [address] Dr. Alexsander Dickinson MONO # 0.6 103/ul Normal 0.3-0.8 [facility] Comment on above: Performed By: #### H BSANS #### [facility] [place] [facility] [address] [place] [address] Dr. Alexsander Dickinson Monocytes/100 WBC (Bld) 6.8 % Normal 1.7-12.0 [facility] [place] Comment on above: Performed By: #### H BSANS #### [facility] [place] [facility] [address] [place] [address] Dr. Alexsander Dickinson NEUT # 5.8 103/ul Normal 1.4-6.5 [facility] [place] Comment on above: Performed By: #### H BSANS #### [facility] [place] [facility] [address] [address] [address] Alexsander Dickinson Neutrophils/100 WBC (Bld) 65.0 % Normal 43.0-75.0 [facility] Comment on above: Performed By: #### H BSANS #### [facility] [place] [facility] [address] [address] [address] Alexsander Dickinson Platelet mean volume (Bld) [Entitic vol] 9.9 fL Normal 9.5-13.5 [facility] Comment on above: Performed By: #### H BSANS #### [facility] [place] [facility] [address] [address] [address] Alexsander Dickinson PLT 275 103/ul Normal 150-450 [facility] Comment on above: Performed By: #### H BSANS #### [facility] [place] [facility] [address] [place] [address] Dr. Alexsander Dickinson RBC 4.55 106/ul Normal 4.20-5.40 [facility] Comment on above: Performed By: #### H BSANS #### [facility] [place] [facility] [address] [address] [address] Alexsander Dickinson WBC 8.9 103/ul Normal 4.0-11.0 [facility] Comment on above: Performed By: #### H BSANS #### [facility] [place] [facility] [address] [place] [address] Dr. Alexsander Dickinson CULTURE URINEon 08-16-2022 CULTURE URINE Culture Observations: MODERATE GROWTH OF MIXED GENITAL JOHN. NO POTENTIAL PATHOGENS SEEN. Normal [facility] Comment on above: Performed By: #### A FPMAT #### [facility] [place] [facility] [address] [place] [address] Dr. Alexsander Dickinson GLYCOHEMOGLOBIN A1Con 2021 ADA RECOMMENDATION SEE BELOW Normal [facility] Comment on above: Result Comment: ADA RECOMMENDED LIMIT 4.0 - 6.0 ADA THERAPEUTIC TARGET < 7.0 ACTION SUGGESTED > 7.0 Performed By: #### A 1C #### [facility] [place] [facility] [address] [place] [address] Dr. Alexsander Dickinson Glucose [Mass/Vol] 111 mg/dL Normal [facility] Comment on above: Performed By: #### A 1C #### [facility] [place] [facility] [address] [address] [address] Alexsander Dickinson HbA1c (Bld) [Mass fraction] 5.5 % Normal 4.5-6.2 [facility] Comment on above: Performed By: #### A 1C #### [facility] [place] [facility] [address] [place] [address] Dr. Alexsander Dickinson LATRELL BOX TEST PT SEND OUTo n 08-16-2022 SENT TO REF LAB 08/16/2022 Normal [facility] Comment on above: Performed By: #### N BOX #### [facility] [place] [facility] [address] [place] [address] Dr. Alexsander Dickinson TYPE AND SCREENon 08-16-2022 TYPE AND SCREEN Negative Normal [facility] Comment on above: Performed By: #### A FPMAT #### [facility] [place] [facility] [address] [place] [address] Dr. Alexsander Dickinson US PREG TVon 07-21-2022 [...] Date: 2022-07-20 22:25 Normal [facility] [place] US PREG TVon 07-13-2022 US PREG TV EXAMINATION: US PREG TV HISTORY: Missed period COMPARISON: 03/09/2022 FINDINGS: Fonseca intrauterine gestation Gestational sac: 1.7 cm, 6 weeks 2 days Yolk sac: 1.7 mm [place]-rump length: 5.8 mm, 6 weeks 3 days Heart rate: 125 bpm Uterus is normal in appearance, anteverted, retroflexed The ovaries are normal in appearance. Cervix: Closed, 3.9 cm small amount of fluid in the endocervical canal IMPRESSION: Viable fonseca intrauterine gestation measuring 6 weeks 3 days Electronically authenticated by: SEBASTIAN HENRY Date: 2022-07-13 17:05 Normal [facility] [place] Coding Summaryon 03-17-2022 Coding Summary [employer]Base 64 NgwmyecrSDl8yMn+PGhl YWQ+OH7YOAEbS83wnRXn xD4UH9aPHQ8CIOGETAGD IX8KDE1euCA1OEtdX4Zz biAv TtvbuDEnFW64WZn2JIB0 mJhdHCracL4nyNJkL6j1 WaWmXZ27lW74DTqbHXHi KoV0JyOvdbrhfZSl V2awOhQqfFSqHkh+PHRh YmxlIHdpZHRoPScxMDAl QwYzpGehRT0dKe9eIWDx LWNvbGxhcHNlOiBj n7irPZKdVBemWF9apSdl E8LnvPZ6EMSnj3t3Yt10 dHI+ZIFyLOP5aAjbJBtq f360BiHou2kxBMA0 cDTdDJawGQU7Z20pi5R3 ZZHcZUMsRUI6uCL4zT6s hZutizliR2JazBOmGwD8 NIJ9bYKgaQ7riLdh kkbxbA0fMyq+H23KGW1Q NPXZIG8UGdr2F7HmEbeh dHI+RF08EJCyJO66nXQl jECwc3pcnZy3VaUm DLEtXZM4aWobGNlsl5Es JWKfT30daUWiz8L2VIFr dBdpyWSrCtDjkLS0tV6r ZTxtbfuhj6yabykk Yepdn1lejz79bZ28L78o GHsgQDIbOJH6BJJnFYKk qRyqib5dfA4lCk2+IDxj b4pvz5itlHl0KsVa HTWhgsGvgBzoUEM1t8Dh Pa23X9XfhSzkh8KrEgq9 ad94bVNfh7O1xQP4INyr GCEbtO4vIFyiEiX3 TQUxTkUvvO41bHVjHFdn Yu6egAfwpHlgSZ4qEXDi juxaGUGcyS9hGVTajJRh mYxjTP2bPBGayghs a211NxUgXBV3TIMqhHEb X6MwlV6iIbSgKFUkTTJg H8UfiZYwXGdnD891OIqn GcQ3AYEuyqTnV3Bp ZSQfkQimPiZ4l6D7Hb6G r6GkqysvNYG1TRpnPVM0 IeDfLrOlPiQ5U4RmUad0 ODWnrGmpCY3xC2Hg IKSbbavbjqpdvML2FSXr LQTowT31aROmKZzhQw3p t1M1g323WDWwZNKlgV07 Ds2lkQarVSNlzNKH cQ8wycnbk4buksksFrXp KJHaGAg1KXa9FLIflRyt RlYvCWO9DoN4QXB2fYLt vR3wuPcgsfkfzS3z Oyc+X46wvF4wYAP8FKW9 rjonQVRrlrGkLL31KQ46 T7MyRgydqSUyzAS+PGRp izVxyGyaRO5iFbOe u0adx6ElYIscG8LmJQUy CFtoKwz1LXXrUUO8aRY6 gL9tGFOrACegj9J8lTM7 I2UibaReaj4ya2fo ERCyZYyxC60giJXnv5A0 GFGzhSS6JSRybKaiKuYz cW16Eht+BQCyeNpxz1Zn Mcota4tdf0vmnTm8 IjMwJSIgdmFsaWduPSJ0 y7HhZv64E50tHHrnQUCf GGMlHEOiCYSmeQdauu9n yG7eWq5+PGNvbCB3 lND2cY2zTJHqItD6QYsr M134WbFzvWQdIhrds6rl b4kouGf7NvJjQIIfibNd gTvyQPE6a5QlXl84 I90kCRbnRONuHDUiGVKk ADEbnNkjmo4ooM4zUx7+ LI2ue6hrsv79nL43nMM+ PRBdLEM8qUnfTDfb MYSxhO7fZOsgNiT2AVPb JpSqhE83tPYqTRzsBf1g vUhqpOjiQG6uFZAjevrl u258CtWyz5ibPKJh jCDpQHsgRSU1F66rm4Q4 AGKtFQMeMZS8tOV9vZ2f bGlnbjogbGVmdDsgdmVy lPlgIKddQVmwM764 IHRvcDsnPlBhdGllbnQg PtVsLVr8J9ZiJuz6WBBx eGcrJD4qfXWdLFroVh0e yJpiaOnbMO6sWVTm szphp433XkIqz3pkVVQv cCTaFPlsBMX7T36er0U8 RXBwRYItUDF1hBT4qC4v bGlnbjogbGVmdDsg hlQbwKsqDAdcXXqjN297 IHRvcDsnPkJpcnRoIERh nNN1XA98OH34aEYme7U9 iQL3K8NzKOTwscmd ubyhsJP6DWEbSRYidA83 Hx7mvXraAs9lKNTgODK3 AGPkdHIlT5QpcO1eZeXx GOKhXHUiB8AuoSMs XPvhB172JLycNzY2ODAe quYoQ2WoZSGojUbmFfN4 l8H8Wa8BL2S1QB64PA29 nYCoq7S6gKE4J7Qc SMRytyjcujabeOI8KKFg UWPebJ42Oi9wuZvdMk6l UFVfBLY9HLYhmONnZ5Mr xZ6sBbGhCQIwNLTu O0DksARzHJklB887GGgv GuL2RNOdudKnU3DnVUEw gCnaKkJ8r5F2Jd7PDTl7 SD35IV25bAIqo5O8 rLX5Y8YwQFLddgvicrbo qJW4HAGmMYOlzM16Bk1y kQicOw1vPJIzUDM9EDJb pSTmS7NndK5sHxWw ESLwQFGhG0BdjJExYXgr G463JNbeXxF7MPUouwKo L2EqZIXtgCviWbF4q8K5 Vx0ZNREaFG65CXF3 dSI7BR13CU16D0WlDsnl dGFibGU+PHRhYmxlIHdp ZHRoPScxMDAlJyBzdHls PJ2vQx5gWUDyXOFl bMfkqQKyZpTxb8rtNJGl XNzmRQ8uqBrrN6AsrBV7 FHKap9w8Za35W28lE6Kd dXA+FYVzwTQ6qLZ2 bX5iZaBgKjN2VRtkB068 OnZfpGEbOpkct5hgo3dw uXr5HdC6UKCetdGcuDiw PMC7q7QeZf00X03a IHdpZHRoPSIxNSUiIHZh lYwgmh8yvA7yYo5+PGNv hUO1wYO9cW0uTeSxAuZ9 CWaxK395NyKcmQNa Jlgju2dqe1eokEu4KyZn BGOesaVsiDbdFDN9p5Hy Fq48R4LpyIilg3HlFrc2 rc34cZShv5R7aVN3 Y4TlSUJqixrzgJHudZyt WF8tEMKmfkxjYXJcxW4c HBCvW9z6VtEtUbR3KDfs K9ZckxO9AITyfQPg SRyqMJM8U76da7I6WCTs FWPoZNT9lDW2uC3ybWyf bjogbGVmdDsgdmVydGlj DKkwHBaiD407CWKn gMnzMNGkjO5dTTLmuIKu cZznXL3dUDIcaepgGaPH TExJTlMsIEFMWVNTQSBS KDTTBCd9H9GeOfn6 EPPicTqkOB7wvAUcKLmd Bo2pwVgqqMsdYK7wIQPc wjcnDNVtxA2hOCNiiTSl uFizOZ9fVCChzqlu g222PcIeFXA8MTDhoYKm O4OonI1gMgYmVEUvXTHr H6DxdLBzSMsiH989HRbn PqC4RTHpbrVdE3Zd GGBrcBhnXzR3b2D7He4j UD9eUi6uAOv2PX99KO01 xIIjd6V5jYF0T6TlHYNf lwfjjrgbcUM1VKRn UQFhoO14iDPoBSozDk9y y8E3x646ROGeEEWbeG72 Rk3seWbgFHJwhQTSaE7l rydbv2cdvuxeXmBu HLNmDGd7PIx0TSMxiQdo DgYcGFD4EdU9DES5hBFv rT8vhDzmzappdM0lRic+ NboeMUTaxmD5U8Lr Rtp3HVMrsVvmMD2fqDTy QNlhVc8xqImncHdyQU2k GCJwcrnsYCDqeN7gLNRq lTDqnOtxLV2kNIXf qwqwn186GlHxMKO5DIIv oLPeM7DcyP0eOvIrXLDh EDXkN4BgnGAnCHsvT436 LXwkXtN3BSSxklPk R2LlTYRsmFptStG3b1O0 Rc0ZHQ8PWUJ5A4EhUtz3 FYQcmBqaCG9hpLJkITau Mx0ahZuwpIbfTC9g DFXduccsTTSmpZ0tTWLc oUUhrRkcDY5qAYKjmbov b983HdOsBQJ9UYHydCCc N8PolN4ePxRlMIZa XVKmK9HogKOwXStpK531 VUqmNhX3KGDkmkYwG8If BOXwfFnnEhL2y8J6Zr4U UDwvdGQ+AI90ud90 K6SjCssrEde4BCDlSHZ0 qNS2sV3cTDGcJYksl0A4 uDU1M0BntkUnbd1xg3ev JRAxDFqvD89xpKRc k8B7IIJnhCU8MFBiiVdt UcLfvF41Lur+PGNvbGdy p2VhUawqv0lpi0cjkSa9 IjMwJSIgdmFsaWdu AFT3x1ZcJf59Y86jURtx ZHRoPSIzMCUiIHZhbGln gf4odD3cMq3+PGNvbCB3 xSV6fJ9eDiNjKuP3 NGqfH399UiGtrBQzYrry o4vau5mipMz3IwGsIJKh nzYbqAgaBKE4q7OsHv35 Q9UqxEftt9NySaj0 il49iXQtx3D5qFH7A2Xw FZFsslovlBNisKerEV6e NUDtijmpPHVbcC1kMCKz Z6m2BpQnGgV2KQea E3FfenJ1CVCueDHsKOSy rAXZaH1uqubjc1hozpmr LdTwGNOxEQj4RQm1ZELt qGqmRkFfDBV1OpP8 ZAZ1zJSsgH4taXktxrts xK9uGzk+LDd3w4ffoNIj SP9tmQA6PI23FO16hXWc q8G5yAD8H3FqGNIe twpnggiqcWB6ZDTzBGUo jX23Dh5szMdyQl4qYMJh FKK8XXRtrPMkL8WmfS3u AcFbWPTkFBAdM9Op kEBsGYnxW307CRhgCdG3 PMTonsOcM4NrBCGvmAqo IrB3n6G2Zk3LAL27FX25 GF87pSCwb0C8qTW9 U5LzHHGjwmtbhaeimWP0 MFDoSNHmaI77Dt1djDce Wk0pTXUhHWF4ERZjdNOd D1BsjJ7hCjWfEEJx IBEjT4IbgAItOPkwA431 DRbxSqT1VSAyqpHwJ0Nf XJEiaResNgT4i6L2Nd3L Vi84PL82NW05qMGe w0X1vSP9Q3MsLEUqytjf rodgoYR4JPPmIIZpqK97 Hl7njYrmQu4vZMXdVBH2 BPEucUJjF3JhnU8k MhNxUWKkBEBvA8EcnLDh CPnvQ595XDprRnU8XWHy drSpR5LuIXHjkMezAiT5 m7C6Qc8RPWjaada4 W9TaVoijxWG+CV77GWRv KO51nHPfpMCsx7boyLq6 BlXsMEXpKIB2bQpaWOfo n7PdMAYdA90ucBLi c2U (more content not included)... [facility] Coding Summary HTMLBase 64 TkpaguwoYLs6bPw+PGhl YWQ+OG5RYRApM46ryETf oA2VB2jGJT8AVEWZJRZM VI1ASK8okWU8LGcnY6Fp biAv AynfuDMuCZ82LVi8XRF6 iBjdBGcnlY0yhTDcJ8n8 ZsJrAV54eU20UVaiCXRx GuD0HqQjwcbvjSUu D6spOiTpmRPmWrg+PHRh YmxlIHdpZHRoPScxMDAl ApMxqQxzMV1aSm4yACQs LWNvbGxhcHNlOiBj l7tjXQXrRCyiKC5oaBfn V5JewDY7EMNjc0x5Hr51 dHI+JWJhGGE1yUpzBIyk p620UmDvt7hiWLE9 bOIpDYapNPW3M62sf3J1 NDOrFOZrNUI2xUV9iO9a iRmaybhfI8KjbCInEaA8 QHI3mRZcvI7bzIbx wdthaP1iNin+D24KGS4W XRJNTP1KOch3S8DrHvbd dHI+QZ21GSTePB50zGEe iAWtl2htdSq4OmKc ZQIiYFR4pOnkXXkmm5Ih TZOxB28psBHxv1S3YSNe rEtxwJMiCiWjeVA1mH9o EFoskjcie2xgidua Smqgv5cplg14xI48L47a NOptIANbBGP4LYMtUBYa tFayox5gbH8pYl9+IDxj z9ggp7mdvIz2PsWx AQTkfuIvlSwxBGB6m2Gi Dn19F6RimIhtd7PvEgt4 fo96kNEdy6C5tDW0IXpd IRUqvZ7zWVuoCcT9 QBDqSwNtyY12fYCzVFnn Ny7gyLfczZylUD0nHRJa yaklLDYgcQ3xWLDklPZq rGpsUI9mUKXppjig c782UkYiMQC4RXFshVXe Q2RtiT0nFvMbOHJqSCTe R6KuzSPwTWiiM540YFve MdR1NWSuvmJcC3Lb ITSusFahSnL9l2E5Bz5R x4WzmwflNET9PFllYHT8 YoPjIdUxAuO7S8WwIck7 VOYgnSjiZM5iL7Ov EQKpkkrvcvhkeHF4XFLc SEDrpD42eBArKCttLz1a s5R6r021ARLqKRLmqD62 Cn1wmPaqYXOncSDP gM3okrcra5sgclrwEjUy GIMsCZg7QXx2NWUlyUgg TqNlNXC2BjJ7CIX1tOTw dP8reSduzsqluT4c Oyc+O39xgJ4fHMW2IAT5 byicBATstsGkCJ49IR31 I0VsXetjkRAacKN+PGRp pjBanClmHO8mQhKb u5gmy8TgHLmoG3EwEWQs ECakRfi8ELLgXSF7nLL0 kL7pLJXzMQhlf0F5iXT1 D4DhkzLmmg3pg5un TGOtWUppG93uoHRvr2H2 TCVvzHS9OOOljRutCeGg hV02Xvq+IJSsbZxya7Zi Zedyg1rex7yiyPc2 IjMwJSIgdmFsaWduPSJ0 g1AeTi48Y06oGFazROPb QNIvRJTyERQhmOzkss8t jB3gFa3+PGNvbCB3 kDA3pW7nVMGfBlE5TKra H500PtZfuIRzXtmuz4up k8qauVg0YxAwWZWvnnRl wIbfNIG0u3JzAx51 Q58pBGcvEQWfPYTwLMKy YKNmbZbdvi0ssE0lOc3+ TO8fr6kksx35gA08wGQ+ KGVvISH5vMscYHqx VIBhnW0oCDrqXjM5AVRw TfAlvZ47nORlEZejMu5w nIvuaCewAT7zBOSbmvwh e973GoOxp0vvFGUf tRWpNPsdUAU3M83fx6L3 DKCeBBGqVVI9vPU6xK6e bGlnbjogbGVmdDsgdmVy iLktOTmnMQzfZ739 IHRvcDsnPlBhdGllbnQg UiDsWMy5D2IxUcy2HYBe hJzaLV3pqYJpUMpsAy2y tKgvuBvwFH6fNNDj yssyw434XxXfs1ycTAJg hDFxDSysFKP2T74yv5V3 HOJlPCAoFFO2rPT8hM0c bGlnbjogbGVmdDsg cgQklPudGEawTNccX920 IHRvcDsnPkJpcnRoIERh lCJ0OY55FE27fHDwa9Z5 sOO1P2HtCMXfycyi gmgpjTA2TEBhXMBhrJ28 Qf3hnIcjEk4hHZWkIMO0 PVVhdOYyY0RisP0nCwSn YVLpLHAjU1KmxFRi TZcxN106OSshZqV7EGGa cjOkA0FmFITqhWgiJeA4 w3Y9Fc9EC3O6DB15EJ01 eFDpl2O0eFI5C4Tb DOSjjckjxmmivVZ1YANg LHKkiP32Id0eoSaqEo3k FEErENS6PGIoqAFvC8Ms yM3tNuSoTXCuGEVv W1DtuVAtJEmaV510BTqr RqZ1ZUVwqtHeE4HjFRGy mOzrDxB4s4U3Je2YLIb8 IB23PN58cXRhn0W7 dDO9V5EbDLAipcmftqfb yRP3SENoTIRduY66Wg9k oUanDd6zBCGzUUZ2BKYj mZWkD6TreA5hQiUn KSUaUAZtV8XbcWOdMZgm Y757TQanZeS3WOUqhyBm F5LwWHLhgGwgBpS1a5Q2 Vs3ZGJAlCO72VZP4 uCF6BF58OZ72T1YjRyfm dGFibGU+PHRhYmxlIHdp ZHRoPScxMDAlJyBzdHls BF1bYv1dGYUsZEJs qUmxeSPtTuMjy2zaAKFl GVyjWW4seIxuM4LzdVY9 JUYme5e4Vj39E24aT7It dXA+HJZdnFO9uJA8 xE4uVyPqTjH6CKiiC641 ZdLjtMWiDwhdj7xkg5ej dGi8JeH6FANmvaVgkMmz YZA6b7YcEk14H34a IHdpZHRoPSIxNSUiIHZh lRnvzv1psU4kNh8+PGNv cBJ2wOT0hT7uYxXaAxX0 EWhmG831KpBqwOSn Zvybz8wzg1qfoCk3NnMi NBKrvjSocRbiGWA3m3Vs Dn53L3FjjKwiz3TzNvq2 rz67aXShr7M7iWK4 D1BjXPSljoikiSJawJpl RT7iZZEklrokBLYycE0k OSPwA2p9KpVvWeH4TRso O7WsomC7JBPauLWk THmnOYE2G35cr5W6QCZd DTYcWAF9kLZ2zB5tjWvt bjogbGVmdDsgdmVydGlj KNgsFNkiB211ZWNq yJaoWOAunK7lUUMmbOZz jLxiCA8rBVCbzeshNtCV TExJTlMsIEFMWVNTQSBS OZGJJKh0P1DdHqi1 TDBohApyII0mfGFyPBau Iw0ciMmnbPpaRM8tCYFy nsncCFFjsQ9mKVQbmGRi gBwiRV2xLOExwnce i873AtVyIHH1TPJwsPDh C9JwxS1vWyUoYOErJIJt I8GtzPQfXYwrT649FRia DtK4BQTihfYiX3Le BXGwaEjqZvW6l5M9Ct9v QM9gHr6wJNf8YV97MA53 zMMll1Z8gZH4H5TpLDPq peusvzrkmBX7HYMk JLRypH51uPObXIaqYq4j b4A7m908AQDvAYXzlC82 Xi5udUfuSNYtsKYZhB1j vpjqf9zfdatlWtRc XZQcOQy0KMr2DESvxKgz BnGiJOK7OmG1OEY2uHPy yD7haLibuftlsN2hLtt+ FhxeGYTzrrU7V8Jc Sbs8FYYviQzfJV8rbKKq XMzdUh7zpWtxtMhgVT6p QNMkjggnDHXrdO7nZQYf yWPvhSjrPH7pNCMu bobwf534NiToZLB4AZNa fHSsZ5CxjZ4mJbXePHJt XPSgZ4WqyMStQCjfE443 IGrkZlQ9MXSvntBp O9FgAUBzgFrbVcP8f9U6 Sn1XJX4SDGK6B8HdAoy9 CKGqpAveQK0qrHKaFMrv Hu8taYayzVohHS6d POTjsyfjKQRmvX2iYFIh dTNbkGtyLX8zZSQsnhlg r425HfWcBEP8ASJkrIUw K1TfxS0kKjCfSNBu GWNeC0YntGYuMEuyO209 XJtfEwR9ZPFfcsEwV3Qt ZQFhcUheStM2j3X4Ti0V kCWbX6QfA1g0X4Em PjwvdHI+KL11CVTaED89 iDVmxNXki1wysTk2JmRw QJPlKZD1nPucOZnar7Tl CWBvG70juECnn4D2 IGNvbGxhcHNlOyBlbXB0 vB5tTNrevjzmc4rcsklp Zxlae3kand04gL35Y53a IHdpZHRoPSIzMCUi IXYytDjevh9ubW2hGn7+ TYSjdIN4eUU6gN9qWlPe DkS1KXjiU995EqIrsPLl Qzvyh5fml5mvvWm5 IjIwJSIgdmFsaWduPSJ0 l2BkLc12V21bWCvzPBNw FKMfEYUhMHFwpNhdom7j lE7gZi9+TW6it9vp rt78eF87rRW+PHRkIHN0 oFfpJRzuDXWrgW4nZCpo OxL3KOPpVxElxZ09bPOg GTwuDj8alNkthHkg FX5lKATdqxvkk567AbTf s0pqXHUvsGNaYDnwLII5 F99gj2A2RLXlMWXtNBU3 uGZ5kL3ewJwnynxk bGVmdDsgdmVydGljYWwt VHsoK294BASijDomVrUo pLBtT7euzzOMWI7xVdwa dGQ+HJAaQQI3nLlq HRneYFYidB3nCJIqL1a9 InFwUkU5JJoeQ0UiqyO0 WKSbkGGbECMneIKXnA4j kubda1taroxfJaYy FGHiGOe6UQt9RYKuqZon ThThJSQ2FuW9FPV0xBUm rU5qeIszfewduI4ePxs+ RklOOjwvdGQ+PHRk MGA9fZhdHFcoOOCpsQ6k HFNiU0j6YiSlUwW8JIun E8WybxS8VDTtpOFqROCv aSXNpB1sjkkku0xd lizyScTfFYGhHOl3JVk5 WFGjwQonDvBbMLR8GoB0 UYI7rLRhbJ7cuDgubctw bN9vNjb+TVJOOjwv dGQ+BREuFCC4yJutRElo UZXuhB4dSMViO7l9LyTl WgY0PVmvY7KvaqL7PELd iCMeAKZxkCXFlD2k ewpib7zbbhgtDvHuQRGg JGp5DCk3UHRopWgcJpQt MYE8EeU3DTW9jCAxhN5h fJzxljushY3eEuk+ COA7GQC1KW72RO31Y1Ml PjwvdGFibGU+PHRhYmxl IHdpZHRoPScxMDAlJyBz rKpyOV2zIs3kKYCy LWN (more content not included)... Normal [facility] C Urineon 03-11-2022 C Urine Urine Culture ordered as a result of parameters set on specific urine dip and urine microsopic results. >3 Organisms Consistent with Contamination Recollection suggested. Normal [facility] Comment on above: Performed By: #### 1 [id number], 05883117, 5909572, 8309155430, 40828382, 7132377, 7691376570, 7114336152, 5499756090, 3799569 #### [facility] (DEFAULT) [address] [place] [address] 40968 .Auto Diff 03-09-2022 Auto Scre[place] % 8 % Normal 11-09 [facility] Comment on above: Performed By: #### 1 1239083, 20638013, 8929373, 2059162100, 06063442, 6463245, 1251259649, 2763176763, 0067190874, 3497167 #### [facility] (DEFAULT) [address] [place] [address] 12171 Baso Abs# 0.0 x10 Normal 0.0-0.2 [facility] Comment on above: Performed By: #### 1 2710942, 81582272, 2370086, 9868738764, 52880219, 0689246, 3287586427, 8534350690, 0832639791, 2909282 #### [facility] (DEFAULT) [address] [place] [address] 46411 Basophils/100 WBC (Bld) 0.3 % Normal 0.2-2.0 [facility] Comment on above: Performed By: #### 1 8492881, 34491196, 9035868, 0586235841, 92689429, 3365708, 0465941322, 9421737433, 3549345171, 5049379 #### [facility] (DEFAULT) [address] [place] [address] 66094 Eos Abs# 0.1 x10 Normal 0.0-0.4 [facility] Comment on above: Performed By: #### 1 5534016, 17704355, 3410924, 9839871771, 10152694, 6937314, 7725258254, 9448393985, 5045888890, 0975028 #### [facility] (DEFAULT) [address] [place] [address] 65250 Eosinophils/100 WBC (Bld) 1.0 % Normal 0.9-4.0 [facility] Comment on above: Performed By: #### 1 6480533, 25399970, 4936318, 0422589692, 47596195, 3761572, 0759902460, 9478733656, 0073916282, 3241201 #### [facility] (DEFAULT) [address] [place] [address] 02209 Lymph Abs# 2.0 x10 Normal 1.3-2.9 [facility] Comment on above: Performed By: #### 1 7751186, 38072849, 0001549, 4128233543, 78832337, 3993851, 4657955150, 1845420635, 8138891557, 8270904 #### [facility] (DEFAULT) [address] [place] [address] 14457 Lymphocytes/100 WBC (Bld) 35 % Normal 14-48 [facility] Comment on above: Performed By: #### 1 3545881, 42801837, 4208527, 8599219383, 06119471, 2695268, 4857856892, 2130467545, 9660705132, 6919614 #### [facility] (DEFAULT) [address] [place] [address] 71235 Screven Abs# 0.5 x10 Normal 0.0-0.8 [facility] Comment on above: Performed By: #### 1 0233875, 56251465, 9690820, 0637312714, 13512353, 7806995, 1839254971, 7049017138, 4351627703, 7057287 #### [facility] (DEFAULT) [address] [place] [address] 71066 Neut Abs# 3.2 x10 Normal 1.5-9.2 [facility] Comment on above: Performed By: #### 1 1469633, 79207953, 9155199, 5435636751, 93798257, 8212278, 4712242968, 0261652878, 7536283167, 0041931 #### [facility] (DEFAULT) [address] [place], [place] [address] Neutrophils/100 WBC (Bld) 55 % Normal 44-88 [facility] Comment on above: Performed By: #### 1 2934334, 10449720, 7057308, 1323361474, 05840770, 3984749, 8369115483, 9024194108, 7632469767, 0040298 #### [facility] (DEFAULT) [address] [place], [place] [address] ABORhon 03-09-2022 ABO and Rh group Nom (Bld) Hx Check: Not Found Anti-A: 4+ Anti-B: 0 Anti-D: 4+ DCon: 0 A1: mf+ B: 4+ ABORh Interp: A POS Invalid Interpretation Code [facility] Comment on above: Performed By: #### 1 2007501, 59287587, 9705970, 3634471499, 01211779, 4973837, 5793865038, 3099142023, 2780559507, 4387632 #### [facility] (DEFAULT) [address] [place] [address] 50660 ABORh Retypeon 03-09-2022 ABO and Rh group Nom (Bld) Ordered by Discern. Anti-A: 4+ Anti-B: 0 Anti-D: 4+ DCon: 0 A1: mf+ B: 4+ ABORh Retype: A POS Invalid Interpretation Code [facility] Comment on above: Performed By: #### 1 4925159, 79901736, 6485959, 1239595481, 70295189, 6163581, 5683866225, 6817234418, 1218605387, 9380983 ####[facility] (DEFAULT)[address] [place], [place] [address] CBC w/ Auto Diffon Erythrocyte distribution width (RBC) [Ratio] 13.3 % Normal 11.5-15.0 [facility] Comment on above: Performed By: #### 1 6922449, 91672771, 7725497, 5459286849, 04761289, 3694667, 8506136132, 3841123475, 9167958859, 1779103 #### [facility] (DEFAULT) [address] [place] [address] 18092 Hematocrit (Bld) [Volume fraction] 43.5 % High 33.7-40.4 [facility] Comment on above: Performed By: #### 1 0312457, 95671483, 5896593, 3867550956, 89508383, 9868037, 3778524642, 5442349682, 3455939262, 6632421 #### [facility] (DEFAULT) [address] [place] [address] 79038 Hemoglobin (Bld) [Mass/Vol] 14.1 g/dL Normal 11.3-15.9 [facility] Comment on above: Performed By: #### 1 2609109, 11401224, 0449452, 2795988237, 52145945, 0216095, 6605616764, 2262878803, 3866986108, 1051533 #### [facility] (DEFAULT) [address] [place] [address] 53201 Instr WBC 5.7 x10 Invalid Interpretation Code [facility] Comment on above: Performed By: #### 1 8718538, 84161757, 3470928, 6073634209, 81658683, 4997858, 1197216096, 0093501668, 8602199632, 3553775 #### [facility] (DEFAULT) [address] [place] [address] 22141 Man Diff? Auto Normal [facility] Comment on above: Performed By: #### 1 3763626, 81970279, 0279642, 9710576529, 17155785, 8860717, 0559765467, 0074376867, 0310403921, 8738521 #### [facility] (DEFAULT) [address] [place] [address] 90592 MCH (RBC) [Entitic mass] 28 pg Normal 24-34 [facility] Comment on above: Performed By: #### 1 6854759, 94169408, 7921814, 6653488957, 62582846, 2354311, 5940759941, 4036156199, 9334881830, 6542717 #### [facility] (DEFAULT) [address] [place] [address] 18661 MCHC (RBC) [Mass/Vol] 32 g/dL Normal 26-37 [facility] Comment on above: Performed By: #### 1 0097589, 67605371, 7582676, 4944468107, 98505627, 7743921, 3437149671, 9629128135, 3965001829, 7711739 #### [facility] (DEFAULT) [address] [place] [address] 38010 MCV (RBC) [Entitic vol] 86 fL Normal 81-100 [facility] Comment on above: Performed By: #### 1 4995520, 58994069, 5155365, 4953065126, 23080319, 5402992, 4276513348, 3016617372, 6260800743, 1481014 #### [facility] (DEFAULT) [address] [place] [address] 45945 Platelet 324 x10 Normal 138-427 [facility] Comment on above: Performed By: #### 1 6550115, 12758491, 9253233, 5010529376, 34403681, 7166756, 0456092371, 8649772768, 1960384773, 9360505 #### [facility] (DEFAULT) [address] [place] [address] 68291 Platelet mean volume (Bld) [Entitic vol] 9.8 fL Normal 6.3-10.2 [facility] Comment on above: Performed By: #### 1 6043778, 27777354, 8575281, 5059853850, 75091934, 2921129, 9145492600, 9436637689, 3982605487, 3953229 #### [facility] (DEFAULT) [address] [place] [address] 23720 RBC 5.07 x10 Normal 3.70-5.30 [facility] Comment on above: Performed By: #### 1 6576583, 91095453, 6627773, 5022177995, 98888405, 3700104, 8717650173, 0408320849, 3267551478, 2018767 #### [facility] (DEFAULT) [address] [place] [address] 58211 WBC 5.7 x10 Normal 3.5-10.5 [facility] Comment on above: Performed By: #### 1 9260459, 88665090, 7277716, 9862028468, 78657464, 5097770, 7918369648, 6726395136, 7152570408, 4950834 #### [facility] (DEFAULT) [address] [place] [address] 01265 CMP Standardon 03-09-2022 eGFR Non AA >60 Invalid Interpretation Code [facility] Comment on above: Performed By: #### 1 4708233, 46439136, 1407133, 9734912557, 02063974, 8535376, 6510894539, 5972042053, 9161013952, 9100421 #### [facility] (DEFAULT) [address] [place] [address] 84619 eGFR AA >60 Invalid Interpretation Code [facility] Comment on above: Result Comment: Coil Placer susie Kidney disease could be indicated at eGFRs of less than 60 ml/min/1.73m2. Kidney Failure is indicated at less than 15 ml/min/1.73m2 Performed By: #### 1 7710573, 32305344, 4346448, 9885899509, 23946694, 6303076, 0840717737, 2444626690, 4763199597, 5961731 #### [facility] (DEFAULT) [address] [place] [address] 03698 Albumin [Mass/Vol] 4.5 g/dL Normal 3.5-5.0 [facility] Comment on above: Performed By: #### 1 9362462, 56293665, 4221869, 4233585401, 80565804, 6628704, 6379021324, 0920411621, 2323731862, 3251716 #### [facility] (DEFAULT) [address] [place] [address] 04851 Albumin/Globulin [Mass ratio] 1.2 {ratio} Low 1.4-2.6 [facility] Comment on above: Performed By: #### 1 9011982, 14042244, 1708042, 6676413043, 20455223, 5661768, 1499407023, 4550986512, 8479217469, 7817470 #### [facility] (DEFAULT) [address] [place] [address] 46471 Alk Phos 52 IU/L Normal 32-91 [facility] Comment on above: Performed By: #### 1 7285692, 90757059, 1901454, 3131585448, 92646858, 8772528, 8984454517, 5708765602, 9694683568, 1118403 #### [facility] (DEFAULT) [address] [place] [address] 71360 ALT [Catalytic activity/Vol] 37.0 U/L Normal 14.0-54.0 [facility] Comment on above: Performed By: #### 1 8519154, 27231883, 9493128, 2763396675, 22953810, 2368191, 7155600800, 6895802057, 5021795247, 7948975 #### [facility] (DEFAULT) [address] [place] [address] 42766 Anion gap [Moles/Vol] 18.0 mmol/L Normal 5.0-19.0 [facility] Comment on above: Performed By: #### 1 7841285, 62714702, 2465207, 8023653938, 09846906, 1197250, 0342274258, 8403608450, 6748680460, 1014338 #### [facility] (DEFAULT) [address] [place] [address] 94821 AST [Catalytic activity/Vol] 29 U/L Normal 15-41 [facility] Comment on above: Performed By: #### 1 9895462, 98225726, 8438292, 3098045949, 29127425, 6319751, 9625062535, 3181946989, 2027806573, 6850225 #### [facility] (DEFAULT) [address] [place] [address] 95390 Bili Total 0.7 mg/dL Normal 0.3-1.2 [facility] Comment on above: Performed By: #### 1 1940855, 96097009, 8540196, 1691104401, 37168206, 5676661, 0152368550, 5231387196, 1223540379, 6726431 #### [facility] (DEFAULT) [address] [place] [address] 56395 Calcium [Mass/Vol] 9.4 mg/dL Normal 8.9-10.3 [facility] Comment on above: Performed By: #### 1 6814000, 08707090, 6629920, 7761128460, 01037646, 3332404, 8269724081, 9284788686, 6185762542, 2757072 #### [facility] (DEFAULT) [address] [place] [address] 55633 Chloride [Moles/Vol] 100 mmol/L Low 101-111 [facility] Comment on above: Performed By: #### 1 7996390, 42441123, 0821834, 9196701566, 80689432, 1721101, 3458170667, 9731218683, 0274522461, 4183782 #### [facility] (DEFAULT) [address] [place] [address] 30206 CO2 [Moles/Vol] 24 mmol/L Normal 21-32 [facility] Comment on above: Performed By: #### 1 7048401, 04232293, 6630610, 7394444292, 35199984, 0382103, 2274899926, 3534942929, 6139591325, 8868588 #### [facility] (DEFAULT) [address] [place] [address] 76430 Creatinine [Mass/Vol] 0.75 mg/dL Normal 0.60-1.30 [facility] Comment on above: Performed By: #### 1 [id number], 42331007, 1660300, [id number], 87652863, 0618503, 1098780355, 2787774029, 3969231020, 7429479 #### [facility] (DEFAULT) [address] [place] [address] 00315 Globulin (S) [Mass/Vol] 3.9 g/dL Normal 1.5-4.3 [facility] Comment on above: Performed By: #### 1 [id number], 77875643, 6642135, [id number], 62738588, 1002499, 2485790564, 2349070093, 2606657130, 1499715 #### [facility] (DEFAULT) [address] [place] [address] 15245 Glucose [Mass/Vol] 98.0 mg/dL Normal 74.0-118.0 [facility] Comment on above: Performed By: #### 1 [id number], 09169462, 3394189, [id number], 76098347, 3978972, 0432991728, 1037764166, 6774722371, 5639556 #### [facility] (DEFAULT) [address] [place] [address] 57685 Osmolality 274 mOsm/L Invalid Interpretation Code [facility] Comment on above: Performed By: #### 1 [id number], 60375745, 1181834, 7049347903, 90056356, 8693688, 6850697262, 3837828627, 7994720005, 3785663 #### [facility] (DEFAULT) [address] [place] [address] 18488 Potassium [Moles/Vol] 3.5 mmol/L Low 3.6-5.1 [facility] Comment on above: Performed By: #### 1 [id number], 01136173, 3792223, [id number], 31145130, 0415841, 3526917264, 0075457168, 3698778643, 7480059 #### [facility] (DEFAULT) [address] [place] [address] 61129 Protein [Mass/Vol] 8.4 g/dL High 6.5-8.1 [facility] Comment on above: Performed By: #### 1 0403676, 58627064, 0110431, 8564486992, 15151509, 1609531, 2121516701, 9659062154, 2283629076, 1639690 #### [facility] (DEFAULT) [address] [place] [address] 62113 Sodium [Moles/Vol] 138.0 mmol/L Normal 136.0-144.0 [facility] Comment on above: Performed By: #### 1 2398036, 28481025, 9252500, 9765390910, 52763740, 5742691, 8047818443, 4987146810, 2839619456, 8890952 #### [facility] (DEFAULT) [address] [place] [address] 73777 Urea nitrogen [Mass/Vol] 7 mg/dL Low 8-26 [facility] Comment on above: Performed By: #### 1 3451169, 48698468, 0761555, 3590757233, 90799169, 9423525, 6230353414, 7954930245, 9500020184, 5366293 #### [facility] (DEFAULT) [address] [place] [address] Urea nitrogen/Creatinine [Mass ratio] 9.0 mg/mg Normal 4.6-16.2 [facility] Comment on above: Performed By: #### 1 4982634, 72739695, 4517694, 4663279791, 66979755, 0043972, 8665944616, 7510737442, 2424906346, 4763831 #### [facility] (DEFAULT) [address] [place] [address] 80328 ED Clinical Summaryon 2021 ED Clinical Summary [facility] - Emergency Department [address] [place] [address] ED Clinical Summary PERSON INFORMATION Name: DIANE JOYCE Age: 26 Years Sex: FEMALE : 1995 MRN: Acct#: Visit Reason: Vaginal bleeding - < 20 wks ; BLEEDING, Arrival: 03/09/2022 15:56:59 Discharge: 03/09/2022 18:28:00 LOS: 000 02:32 Check In: 03/09/2022 15:56:59 Checkout:03/09/2022 18:28:00 Address: [address] [place] [address] PCP: Provider, None PROVIDER INFORMATION Provider Role [...] or bladder. States that she follows with embroiderer hand in [place] Dr. Min, contacted his office and they [...] intact, SARINA: -Sclera conjunctiva: Unremarkable. NECK: -Supple ([id number]-dn-[id number]): non-tender. CARD: -Rate and rhythm: Regular -Edema: [...] the patient recommended close follow-up with her embroiderer hand and outpatient beta hCG. In the meantime no strenuous ac (more content not included)... Normal [facility] ED Note - Physicianon 2021 ED [...] or bladder. States that she follows with embroiderer hand in [place] Dr. Min, contacted his office and they [...] intact, SARINA: -Sclera conjunctiva: Unremarkable. NECK: -Supple (oqlm-yo-cheqk): non-tender. CARD: -Rate and rhythm: Regular -Edema: [...] the patient recommended close follow-up with her embroiderer hand and outpatient beta hCG. In the meantime no strenuous activity, sexual activity if having any worsening issues I recommended he return to the emergency department or going directly to embroiderer hand. Patient indicated she understood was in agreement. [...] AA >60 (more content not included)... Normal [facility] ED Note-Nursingon 03-09-2022 Beta HCG ( test) Ql (U) Patient arrives with c/o vaginal bleeding during . States she took a at home test a week ago and estimates being 5 to 6 weeks along. Patient has some mild cramping yesterday 11/07 at has since went away and light vaginal bleeding today. This is the patients second , 1 live . Normal [facility] ED Patient Summaryon 022 ED Patient Summary [facility] - Emergency Department [address] [place] [address] PATIENT DISCHARGE INSTRUCTIONS Patient Information Name: DIANE JOYCE Age: 26 Years Date of : 1995 [facility]: [id number] Reason For Visit: Vaginal bleeding - < 20 wks ; BLEEDING, Arrival Time: 03/09/2022 15:56:59 Primary Care Physician: Provider, None Attending Physician: Adrian Rosales MD Comment: Visit Diagnosis: Diagnoses This Visit Elevated blood pressure reading (R03.0) First trimester (Z34.91) Threatened miscarriage in early (O20.0) Vaginal bleeding (N93.9) Vaginal bleeding - < 20 wks ([id number]) Prescription Information: If you have been given a prescription for narcotics, seek immediate medical attention if you have any difficulty breathing or any sudden status changes such as confusion and sleepiness. If you or anyone you know is experiencing suicidal thoughts, mental health, alcohol and/or drug addiction problems; contact the [facility] 21/05 Crisis Hotline -Vyzq 8JGSZ vc [phone]. If you received any narcotics, sedation, or [...] documents With: Address: When: Follow-up with your embroiderer hand for reevaluation next few days. Within 1 to 2 days Comments: Follow-up with embroiderer hand for reevaluation next few days for reevaluation and outpatient quantitative hCG. Return immediately for any worsening issues such as increasing abdominal pains, increasing vaginal bleeding, fevers, or any other problems. 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 It is important for you to follow up with a doctor, nurse practitioner, or physician?s executive assistant to president for ongoing care. If your symptoms become [...] so we can reach you if necessary. [facility] Emergency Department has provided you with a complete list of medications post discharge. Please inform your preparer samples and repairs/provider of your visit and for further instruction [...] The sec (more content not included)... Normal [facility] Extra Greenon 03-09-2022 Tube Collected Yes Invalid Interpretation Code [facility] Comment on above: Performed By: #### 1 [id number], 86064018, 4156811, 3568621452, 62038028, 4391682, 4922602008, 8973930337, 3035154532, 2523023 #### [facility] (DEFAULT) [address] [place] [address] PT/PTTon 03-09-2022 INR Coag (PPP) [Relative time] 0.95 {INR} Normal 0.91-1.11 [facility] Comment on above: Performed By: #### 1 1607271, 28540905, 2943258, 3952006898, 52664234, 0056266, 8519955507, 6924437870, 8996431151, 8355770 #### [facility] (DEFAULT) [address] [place] [address] PT 10.3 second(s) Normal 9.7-11.8 [facility] Comment on above: Performed By: #### 1 3660924, 79664188, 4721067, 7361407077, 06625414, 5177653, 6785409093, 4599694260, 1006599080, 5217896 #### [facility] (DEFAULT) [address] [place] [address] PTT 34 second(s) Normal 25-35 [facility] Comment on above: Performed By: #### 1 2568646, 04370575, 3803881, 6004221561, 77737684, 3546618, 1720480186, 5826065076, 1094737697, 0503109 #### [facility] (DEFAULT) [address] [place] [address] RhIG.on 03-09-2022 RhIG. No. Vials RhI RhIG Candidate?: No Date to Give: [id number] RhIG Status: RhIG Ready Normal [facility] Comment on above: Performed By: #### 1 0629159, 46501114, 7562475, 2212601718, 44720445, 1108128, 8467330834, 4164532456, 8988584763, 9391943 ####[facility] (DEFAULT)[address] [place] [address] UA Tqurs7ec 03-09-2022 UA Amorph. 1+ [facility] Comment on above: Order Comment: Urina lysis Microscopic order added on by Discern Expert Rules system. Performed By: #### 5 0371357, 6828573, [id number] ####[facility] (DEFAULT)[address] [place] [address] UA Bacteria 2+ [facility] Comment on above: Order Comment: Urina lysis Microscopic order added on by Discern Expert Rules system. Performed By: #### 5 3946122, 0834108, [id number] ####[facility] (DEFAULT)[address] [place] [address] UA Mucous 3+ [facility] Comment on above: Order Comment: Urina lysis Microscopic order added on by Discern Expert Rules system. Performed By: #### 5 2835887, 0310340, [id number] ####[facility] (DEFAULT)[address] [place] [address] UA RBC >100 [facility] Comment on above: Order Comment: Urina lysis Microscopic order added on by Discern Expert Rules system. Performed By: #### 5 0653661, 5584770, [id number] ####[facility] (DEFAULT)[address] [place] [address] UA Squam Epi Many [facility] Comment on above: Order Comment: Urina lysis Microscopic order added on by Discern Expert Rules system. Result Comment: DMITRY VERGARA RN IN ER. RUN UNINALYSIS AND CULTURE ON THIS SPECIMEN. NO RECOLLECT. Performed By: #### 5 0319129, 3674925, [id number] ####[facility] (DEFAULT)[address] [place] [address] UA WBC 3-5 [facility] Comment on above: Order Comment: Urina lysis Microscopic order added on by Discern Expert Rules system. Performed By: #### 5 3296234, 8556499, [id number] ####[facility] (DEFAULT)[address] [place], [place] [address] UA w Culture if Ind Standard on 03-09-2022 Breakpoint UA [facility] Comment on above: Performed By: #### 1 4333041, 72799294, 6541849, 3402660345, 00673786, 7696115, 7808514165, 7571302913, 0597433907, 9684460 #### [facility] (DEFAULT) [address] [place] [address] Color (U) Yellow Normal [facility] Comment on above: Performed By: #### 1 8334883, 73489155, 3855405, 9822668523, 65518677, 0772847, 4024899219, 9195066705, 4088001028, 4306785 #### [facility] (DEFAULT) [address] [place] [address] Culture? Indicated Invalid Interpretation Code [facility] Comment on above: Result Comment: Resu lt created by rule GL_MAGR_ADD_UA_CULT Result created by rule GL_MAGR_ADD_UA_CULT Result created by rule GL_MAGR_ADD_UA_CULT1 Result created by rule GL_MAGR_ADD_UA_CULT Performed By: #### 1 0403107, 65788647, 2872208, 6037931894, 17115283, 7351176, 1868744036, 5570110639, 8872894728, 5544356 #### [facility] (DEFAULT) [address] [place] [address] Glucose (U) [Mass/Vol] Negative Normal [facility] Comment on above: Performed By: #### 1 0564312, 49426335, 2888165, 2850488509, 70748968, 7640006, 3919444149, 4847352735, 9744659092, 9673101 #### [facility] (DEFAULT) [address] [place] [address] Ketones Ql (U) 40 Normal [facility] Comment on above: Performed By: #### 1 7300469, 05340095, 9066394, 5403704890, 48471450, 3109193, 4096657011, 7292414844, 0210006738, 0639193 #### [facility] (DEFAULT) [address] [place] [address] Micro? Indicated Invalid Interpretation Code [facility] Comment on above: Result Comment: Resu lt created by rule GL_MAGR_ADD_UA_MICRO Performed By: #### 1 0747191, 15628018, 1330486, 4745080964, 67297271, 0377834, 7955899005, 3692581648, 1179187854, 6572798 #### [facility] (DEFAULT) [address] [place] [address] UA Bilirubin Negative Normal [facility] Comment on above: Performed By: #### 1 2274570, 01134041, 8818287, 0873766424, 19681604, 4433014, 7660851053, 0649607999, 1251486274, 0111225 #### [facility] (DEFAULT) [address] [place] [address] UA Blood LARGE Abnormal NEGATIVE [facility] Comment on above: Performed By: #### 1 1427877, 08832010, 6085775, 8202690838, 10529599, 2083772, 3789598287, 0081793615, 7223589760, 9084496 #### [facility] (DEFAULT) [address] [place] [address] UA Clarity SL CLOUDY Abnormal CLEAR [facility] Comment on above: Performed By: #### 1 6609032, 24922578, 6852486, 3299550817, 32829393, 0687091, 3684543391, 1476562606, 5576410861, 0244580 #### [facility] (DEFAULT) [address] [place] [address] UA Leuk Est TRACE Abnormal NEGATIVE [facility] Comment on above: Performed By: #### 1 1544309, 60115875, 5906893, 9101587796, 76093979, 1415986, 2487660864, 5116300528, 9391952120, 5038540 #### [facility] (DEFAULT) [address] [place] [address] UA Nitrite Negative Normal NEGATIVE [facility] Comment on above: Performed By: #### 1 3894201, 50283929, 5510532, 8509000958, 83207568, 4951845, 8625886006, 0120080448, 2591086081, 2465720 #### [facility] (DEFAULT) [address] [place] [address] UA pH 6.5 Normal 5-8 [facility] Comment on above: Performed By: #### 1 9518913, 11038324, 9939401, 7699936237, 91066488, 8980628, 1311928378, 6288781465, 0824533412, 7622075 #### [facility] (DEFAULT) [address] [place] [address] UA Protein Negative Normal NEGATIVE [facility] Comment on above: Performed By: #### 1 1731815, 02480522, 4626453, 0664775896, 69058069, 2631010, 4396166033, 5577678431, 7224433899, 9606708 #### [facility] (DEFAULT) [address] [place] [address] UA Spec Grav 1.015 Normal 1.001-1.035 [facility] Comment on above: Performed By: #### 1 8739744, 95126316, 3357166, 2498848755, 70234118, 6429205, 9454030987, 9813821001, 2164233769, 1895343 #### [facility] (DEFAULT) [address] [place] [address] UA Urobilinogen 0.2 mg/dL Normal 0.2-1.0 [facility] Comment on above: Performed By: #### 1 2283209, 80916427, 5825916, 2295942673, 40166382, 3036893, 4829717942, 1248097030, 2834197310, 2390585 #### [facility] (DEFAULT) [address] [place] [address] Urine Source Clean Catch [facility] Comment on above: Performed By: #### 1 9507202, 60559549, 3048317, 0741841764, 62230699, 0215784, 1328167538, 3408328841, 2416852151, 6303436 #### [facility] (DEFAULT) [address] [place] [address] US 1st Trimesteron 03-09-2022 US 1st Trimester [...] Signature): Sebastian Guzman 03/09/22 6:10 pm Technologist: [facility] US Transvaginalon 03-09-2022 US Transvaginal EXAM: [...] Guzman 03/09/22 6:10 pm Technologist: PM Normal [facility] hCG Quantitativeon 2 hCG Quantitative 7.1 mIU/mL High 0.0-0.6 [facility] Comment on above: Result Comment: Post -Menopausal Reference Range is: 0.1-11.6 mIU/mL Performed By: #### 1 5667136, 72763967, 0800931, 9301489458, 27769745, 2487887, 4414900502, 3112650003, 5167064490, 0021212 #### [facility] (DEFAULT) [address] [place] [address] Vital Signs Date Time Vital Sign Value Performing Clinician Facility 12-13-2023 15:00-0500 Body mass index (BMI) [Ratio] 46.69 kg/m2 [facility] 12-13-2023 15:00-0500 Body weight 123.38 kg [facility] 12-13-2023 15:00-0500 Diastolic blood pressure 78 mm[Hg] [facility] 12-13-2023 15:00-0500 Systolic blood pressure 128 mm[Hg] [facility] 05-15-2023 18:30-0400 Body height 161.29 cm Linsey Witt Other [employer] Other 05-15-2023 18:30-0400 Body mass index (BMI) [Ratio] 43.41 kg/m2 Linsey Witt Other [employer] Other 05-15-2023 18:30-0400 Body temperature 99.2 [degF] Linsey Witt Other [facility] Other 05-15-2023 18:30-0400 Body weight 112.95 kg Linsey Witt Other [employer] Other 05-15-2023 18:30-0400 Respiratory rate 18 /min Linsey Witt Other [facility] Other 05-15-2023 18:30-0400 SaO2% (BldA) [Mass fraction] 99 % Linsey Witt Other [facility] Other 05-09-2023 11:00-0400 Body height 161.29 cm Gissel Santana Other [employer] Other 05-09-2023 11:00-0400 Body mass index (BMI) [Ratio] 43.59 kg/m2 Gissel Santana Other [facility] Other 05-09-2023 11:00-0400 Body weight 113.4 kg Gissel Santana Other [employer] Other 05-09-2023 11:00-0400 Diastolic blood pressure 83 mm[Hg] Gissel Santana Other [employer] Other 05-09-2023 11:00-0400 Systolic blood pressure 119 mm[Hg] Gissel Santana Other [facility] Other 04-12-2023 09:00-0400 Body height 161.29 cm Gissel Lamin Other [employer] Other 04-12-2023 09:00-0400 Body mass index (BMI) [Ratio] 43.59 kg/m2 Gissel Santana Other [employer] Other 04-12-2023 09:00-0400 Body weight 113.4 kg Gissel Santana Other [employer] Other 04-12-2023 09:00-0400 Diastolic blood pressure 88 mm[Hg] Gissel Santana Other [employer] Other 04-12-2023 09:00-0400 Systolic blood pressure 129 mm[Hg] Gissel Santana Other [employer] Other 10-11-2022 02:06-0500 Body weight 111.[address] ESTELLA MIN . [facility] Comment on above: Performed By: #### AFPMAT #### [facility] [address] [place] [address] Dr. Alexsander Dickinson Encounters Encounter Date Encounter [...] 11-06-2023 End: 11-06-2023 ambulatory Gissel Santana Other [employer] Other Start: 11-06-2023 Encounter by compute r link Gissel Santana [facility] Start: 05-22-2023 End: 05-22-2023 ambulatory Olive Howard Other [employer] Other Start: 05-22-2023 Telephone encounter Olive Howard [facility] Start: 05-15-2023 End: 05-15-2023 ambulatory Linsey Witt Facility:[facility] Start: 05-15-2023 End: 05-15-2023 Departed Referred DIE FITTERGideon Witt Work Phone: [facility] [place] Work Phone: Start: 05-15-2023 End: 05-15-2023 ambulatory TERESA Witt Work Phone: [facility] Work Phone: Start: 05-15-2023 Office outpatient vi sit 25 minutes Linsey Witt [facility] Start: 05-09-2023 End: 05-09-2023 ambulatory Gissel Santana Other [employer] Other Start: 05-09-2023 Office outpatient vi sit 15 minutes Gissel Santana [facility] Start: 04-12-2023 End: 04-12-2023 ambulatory Gissel Santana Other [employer] Other Start: 04-12-2023 Encounter for genera l adult medical examination without abnormal findings Gissel Santana [facility] Start: 04-12-2023 Periodic preventive med est patient 18-39 yrs Gissel Santana [facility] Start: 02-15-2023 ambulatory [...] EDT Routine [facility] [address] [place] [id number] Estella Min, DO [address] [place] [address] [facility] Start: 12-13-2023 End: 12-13-2024 [...] Missed menses Expected: 12/13/2023 (Approximate), Expires: 12/13/2024 [facility] Comment on above: Expected: 12/13/2023 (Approximate), Expires: 12/13/2024 Start: 12-13-2023 End: 12-13-2024 US Pelvis transvaginal US OB transvaginal Imaging Routine Missed menses Expected: 12/13/2023 (Approximate), Expires: 12/13/2024 [facility] Comment on above: Expected: 12/13/2023 (Approximate), Expires: 12/13/2024 Start: 05-15-2023 Throat culture Throat Culture [facility] Bacteria identified in Urine by Culture Urine culture Microbiology Routine Missed menses Ordered: 12/13/2023 [facility] Comment on above: Ordered: 12/13/2023 CBC W Auto Different ial panel - Blood CBC and differential Lab Routine Missed menses Ordered: 12/13/2023 [facility] Comment on above: Ordered: 12/13/2023 Hemoglobin A1c/Hemoglobin.total in Blood Hemoglobin A1c Lab Routine Missed menses Ordered: 12/13/2023 [facility] Comment on above: Ordered: 12/13/2023 Hepatitis B virus surface Ag [Presence] in Serum or Plasma by Immunoassay Hepatitis B surface antigen Lab Routine Missed menses Ordered: 12/13/2023 [facility] Comment on above: Ordered: 12/13/2023 Hepatitis C virus Ab [Presence] in Serum or Plasma by Immunoassay Hepatitis C antibody Lab Routine Missed menses Ordered: 12/13/2023 [facility] Comment on above: Ordered: 12/13/2023 HIV-1/HIV-2 antigen/antibody combination immunoassay HIV-1 and HIV-2 antibodies Lab Routine Missed menses Ordered: 12/13/2023 [facility] Comment on above: Ordered: 12/13/2023 Reagin Ab [Presence] in Serum by RPR RPR Lab Routine Missed menses Ordered: 12/13/2023 [facility] Comment on above: Ordered: 12/13/2023 Rubella antibody, IgG Rubella an tibody, IgG Lab Routine Missed menses Ordered: 12/13/2023 [facility] Comment on above: Ordered: 12/13/2023 Payers Date Payer Category Payer Unknown BCBS BCBS xxxxxx [id number] 2020-Present [phone] [address] [place] [address] [id number] 1994 Unknown [id number] 2.16.840.1.325691.3.579.2.593 1994 Unknown [id number] 2.16.840.1.765609.3.579.2.593 1994 Unknown [id number] 2.16.840.1.071081.3.579.2.593 1994 Unknown [id number] 2.16.840.1.704886.3.579.2.593 1994 Unknown [id number] 2.16.840.1.925593.3.579.2.593 1994 Unknown [id number] 2.16.840.1.686882.3.579.2.593 1994 Unknown [id number] 2.16.840.1.017214.3.579.2.593 1994 Unknown [id number] 2.16.840.1.222868.3.579.2.593 1994 Unknown [id number] 2.16.840.1.336488.3.579.2.593 1994 Unknown [id number] 2.16.840.1.289968.3.579.2.593 1994 Unknown [id number] 2.16.840.1.502148.3.579.2.593 1994 Unknown [id number] 2.16.840.1.037880.3.579.2.593 1994 Unknown [id number] 2.16.840.1.857400.3.579.2.593 1994 Unknown [id number] 2.16.840.1.575503.3.579.2.593 1994 Unknown [id number] 2.16.840.1.229451.3.579.2.593 1994 Unknown [id number] 2.16.840.1.742259.3.579.2.593 1994 Unknown [id number] 2.16.840.1.709421.3.579.2.593 1994 Unknown [id number] 2.16.840.1.563680.3.579.2.593 1994 Unknown [id number] 2.16.840.1.436385.3.579.2.593 1994 Unknown [id number] 2.16.840.1.240645.3.579.2.593 1994 Unknown [id number] 2.16.840.1.065982.3.579.2.593 1994 Unknown [id number] 2.16.840.1.529622.3.579.2.593 1994 Unknown [id number] 2.16.840.1.077783.3.579.2.593 1994 Unknown [id number] 2.16.840.1.484920.3.579.2.593 1994 Unknown [id number] 2.16.840.1.117443.3.579.2.1259 1994 Unknown [id number] 2.16.840.1.850461.3.579.2.1259 1994 Unknown [id number] 2.16.840.1.116755.3.579.2.1259 1994 Unknown [id number] 2.16.840.1.366627.3.579.2.1259 1994 Unknown [id number] 2.16.840.1.889386.3.579.2.1259 1994 Unknown [id number] 2.16.840.1.904935.3.579.2.1259 1994 Unknown [id number] 2.16.840.1.440165.3.579.2.1259 1994 Unknown [id number] 2.16.840.1.250417.3.579.2.1259 1994 Unknown [id number] 2.16.840.1.120842.3.579.2.1259 1959 Self-pay 1959 Unknown [id number] Unknown [id number] 2.16.840.1.067928.3.579.2.593 Unknown [id number] 2.16.840.1.141595.3.579.2.531 Social History Date Type Detail Facility Unknown if ever smoked [facility] [employer] Other Start: 03-12-2023 Sex Assigned At [facility] [employer] Other Start: 1995 Sex Assigned At Female F [facility] Start: 03-12-2023 Tobacco smoking status [facility] Never smoked tobacco [facility] Start: 03-12-2023 [...] or undercooked meat, and stay away from [facility]. Patient has also been advised to [...] Meenakshi Rosenthal MA documented in this encounter [facility] 05-15-2023 Evaluation note Encounter Date Diagnosis [...] understanding and is agreeable to treatment plan. [employer] Other 07-12-2023 Evaluation note* Encounter Date Diagnosis Assessment Notes Treatment Notes Treatment Clinical Notes Apr, Anxiety disorder, unspecified (ICD-10 - F41.9) Pt states that she, and her , agree that she is doing better on the medication. Continues to have stress, but is dealing more appropriately. Would like to continue this med and this dose. f/u6 months, sooner if needed. [employer] Other 06-15-2023 Evaluation note* Encounter Date Diagnosis [...] help for overwhelm. followup in 1 month [employer] Other 05-12-2022 NoteEducation Materials Cardiovascular Hypertension, Adult [...] skin, beans, e (more content not included)...[facility] Hospital[facility] noteNo assessment information availableJ[facility]. [facility] Work Phone: Evaluation noteNo InformationN[facility] [employer] Other Evaluation note* Diagnosis Missed menses documented in this encounter [facility] N[facility] - Reported* Type Description Date Surgical History C-sect 2019 Surgical History C-sect 2022 [employer] Other History general Narrative - Reported* Type Description Date Medical History Anxiety disorder, unspecified Surgical History C-sect 2019 Surgical History C-sect 2022 Hospitalization History SEE SURGICAL [employer] Other History general Narrative - Reported* Type Description Date Medical History Anxiety disorder, unspecified Medical History Gestational diabetes Surgical History C-sect 2019 Surgical History C-sect 2022 Hospitalization History SEE SURGICAL [employer] Other Summary Purpose Family History No Family History Records FoundNo Family History Records FoundNo Family History Records FoundNo Family History Records Found Advance Directives No Advanced Directives Records FoundNo Advanced Directives Records FoundNo Advanced Directives Records FoundNo Advanced Directives Records Found Additional Source Comments INFORMATION SOURCE (unrecogn ized section and content) DATE CREATED AUTHOR 03/18/2022 [facility] DATE CREATED AUTHOR AUTHOR'S ORGANIZ ATION 02/15/2023 [facility] DATE CREATED AUTHOR AUTHOR'S ORGANIZ ATION 05/24/2023 [facility] DATE CREATED AUTHOR AUTHOR'S ORGANIZ ATION 06/21/2024 [facility] EPIC REASON FOR VISIT (unrecogniz ed section and content) Reason Comments Amenorrhea Care Teams (unrecognized sec tion and content) Team Status: Inactive Member Role Status Dates Linsey Witt APRN Attending Provider Active Loan Review Analyst Relationship Specialty Start Date End Date Gissel Santana MD [address] [place] [address] PCP - General Family Medicine [...] BE BASED ON THE PRIMARY CLINICAL RECORDS. [employer] [facility]. provides no warranty or guarantee of the accuracy or completeness of information in this document.
[2024-06-26 11:51] LABS: Basophils Percent Auto 0.4 % (0.2-2.0); Eosinophils Absolute Auto 0.1 10^3/uL (0.0-0.7); Eosinophils Percent Auto 0.7 % (0.9-7.0); Hematocrit 32.7 % (36.0-48.0); Hemoglobin 10.3 g/dL (12.0-16.0); Immature Granulocytes Abs Auto 0.05 10^3/uL (0.00-0.03); Immature Granulocytes Pct Auto 0.5 % (0.0-0.5); Lymphocytes Absolute Auto 1.9 10^3/uL (1.2-3.8); Mean Corpuscular HGB Conc 31.5 g/dL (29.9-35.2); Mean Corpuscular Hemoglobin 24.3 pg (26.7-34.0); Mean Corpuscular Volume 77.3 fL (81.0-99.0); Mean Platelet Volume 10.6 fL (9.5-13.5); Monocytes Absolute Auto 0.5 10^3/uL (0.3-0.8); Monocytes Percent Auto 4.9 % (1.7-12.0); Neutrophils Absolute Auto 7.4 10^3/uL (1.4-6.5); Neutrophils Percent Auto 74.5 % (43.0-75.0); Platelet Count 305 10^3/uL (150-450); Red Blood Count 4.23 10^6/uL (4.20-5.40); Red Cell Distribution Width 13.8 % (11.0-15.0)
[2024-06-26 12:20] LABS: Aspartate Amino Transferase 13 U/L (15-37); Estimated GFR (African America >60 (>=60); Estimated GFR (Non-African Ame >60 (>=60); Lactate Dehydrogenase 318 U/L (81-234); Uric Acid 4.9 mg/dL (2.6-6.0)
[2024-06-26 12:38] LABS: Partial Thromboplastin Time 25.3 sec (22.3-36.2); Prothrombin Time 9.4 sec (9.0-11.6)
[2024-06-26 13:08] LABS: INR <0.93
== END 2024-06-26 11:33 | disposition home or self-care (01) ==
LOC: LAB 11:33
PROVIDERS: Visit Provider Obstetrics & Gynecology
DX: O13.9 Gestational [pregnancy-induced] hypertension without significant proteinuria, unspecified trimester (principal)
CPT/HCPCS: 36415; 82565; 83615; 84450; 84520; 84550; 85025; 85610; 85730

== ENCOUNTER 2024-06-27 12:02 | Outpatient (REF) | payer BC, SELFPAY ==
[2024-06-27 12:50] LABS: Total Volume 24 Hour Urine 1300 mL/24hr
== END 2024-06-27 12:03 | disposition home or self-care (01) ==
LOC: LAB 12:02
PROVIDERS: Visit Provider Physician Assistant
DX: O13.9 Gestational [pregnancy-induced] hypertension without significant proteinuria, unspecified trimester (principal)
CPT/HCPCS: 81050; 84156

== ENCOUNTER 2024-06-27 13:00 | Inpatient (IN) | payer BC, SELFPAY ==
[2024-06-27] VITALS (27 sets, daily range): BP systolic 117–144; BP diastolic 57–89; PULSE 67–118; TEMP 36–36.6; O2SAT 99–100
--- OUTSIDE RECORDS SUMMARY | 2024-06-27 07:11 | XMS_ITS | CCD ---
Author Organization [facility] Care Team Providers Care Design Sales Consultant Name Role Phone MECHELLE ., DR SORIA Attending Unavailable SANTANA, DR GISSEL Teresa Primary Care Unavailable MECHELLE ., DR SORIA Consulting Unavailable MECHELLE ., DR SORIA Admitting Unavailable SANTANA, DR GISSEL Teresa Primary Care Unavailable MECHELLE ., DR SORIA Attending Unavailable MECHELLE ., DR SORIA Consulting Unavailable MECHELLE ., DR SORIA Admitting Unavailable MECHELLE ., DR SORIA Attending Unavailable SANTANA, DR IGSSEL Teresa Primary Care Unavailable MECHELLE ., DR [...] Unavailable MECHELLE ., DR SORIA Attending Unavailable MECEHLLE ., DR SORIA Consulting Unavailable MECHELLE ., [...] MECHELLE ., DR SORIA Admitting Unavailable [place], Sebastian Consulting Unavailable SANTANA, DR GISSEL Teresa Primary Care Unavailable MECHELLE ., DR SORIA Consulting Unavailable SANTANA, DR GISSEL Teresa Primary Care Unavailable MECHELLE ., DR SORIA Admitting Unavailable MECHELLE ., DR SORIA Attending Unavailable Gissel Santana Unavailable TERESA Witt Attending Provider [phone] Olive Howard Unavailable Linsey Witt Attending Unavailable Linsey Witt Admitting Unavailable NO FAMILY, PHYSICIAN Primary Care Unavailable Linsey Witt Unavailable Gissel Santana MD Primary Care Provider [phone] ESTELLA MNI Attending Unavailable ESTELLA MIN Attending Unavailable JULITA [...] Interpretation and review of laboratory results Abnormal [facility] re Preg Test, Ur Positive [facility] e Urinalysis macro (dipstick) panel (U)on 12-13-2023 Bilirubin, UA Negative Negative - 4(70) +++ mg/dL [facility] Blood, UA Negative Negative - 50 Sal/mcL [facility] Clarity, UA Clear [facility] [email or web address] re Color, UA Yellow [facility] [employer] e Glucose, UA Negative Negative - 1999(110) ++++ mg/dL [facility] Interpretation and review of laboratory results Abnormal [facility] re Ketones, UA Positive Negative - 160(16) ++++ mg/dL [facility] Leukocytes, UA Negative Negative - 500+++ Lizzy/mcL [facility] Nitrite, UA Negative Negative - Positive [facility] pH, UA 7.0 5 - 9 [facility] [employer] [facility] Protein, UA Positive Negative - 1999(20) ++++ mg/dL [facility] Spec Grav, UA 1.030 1 - 1.03 [facility] Urobilinogen, UA 0.2 0.2 - 12 mg/dL [facility] Quick Strepon 05-15-2023 S. pyogenes Org specific cx Ql (Throat) Negative Anctu Other Quick Strep Anctu Other Throat Cultureon 05-15-2023 Throat culture Heavy Normal Respiratory John 2 Days PERFORMED BY: [facility] [address] [place] [address] PATHOLOGIST SUPERVISOR [employer] ARACELI HAYWOOD M.D. Normal [facility] Comment on above: Performed By: #### C UT #### [facility] [place] [address] GROUP B STREP CULTUREon 01-27 S. [...] S F Tetracycline <=0.25 S F Normal [facility] Comment on above: Performed By: #### A FPMAT #### [facility] [address] [place] [address] Dr. Alexsander Dickinson CBC AUTO DIFFon 02-02-2023 BASO # 0.0 103/ul Normal 0.0-0.1 [facility] Comment on above: Performed By: #### C BC #### [facility] [address] [place] [address] Dr. Alexsander Dickinson Basophils/100 WBC (Bld) 0.2 % Normal 0.2-2.0 [facility] Comment on above: Performed By: #### C BC #### [facility] [address] [place] [address] Dr. Alexsander Dickinson EO # 0.0 103/ul Normal 0.0-0.7 [facility] Comment on above: Performed By: #### C BC #### [facility] [address] [place] [address] Dr. Alexsander Dickinson Eosinophils/100 WBC (Bld) 0.0 % Critically low 0.9-7.0 [facility] Comment on above: Performed By: #### C BC #### [facility] [address] [place] [address] Dr. Alexsander Dickinson Erythrocyte distribution width (RBC) [Ratio] 12.5 % Normal 11.0-15.0 [facility] Comment on above: Performed By: #### C BC #### [facility] [address] [address] [address] Alexsander Dickinson Hematocrit (Bld) [Volume fraction] 32.9 % Critically low 36.0-48.0 [facility] Comment on above: Performed By: #### C BC #### [facility] [address] [address] [address] Alexsander Dickinson Hemoglobin (Bld) [Mass/Vol] 10.7 g/dL Critically low 12.0-16.0 [facility] Comment on above: Performed By: #### C BC #### [facility] [address] [place] [address] Dr. Alexsander Dickinson IG # 0.12 10e3/ul Critically high 0.00-0.03 [facility] Comment on above: Performed By: #### C BC #### [facility] [address] [place] [address] Dr. Alexsander Dickinson IG % 0.7 % Critically high 0.0-0.5 [facility] Comment on above: Performed By: #### C BC #### [facility] [address] [place] [address] Dr. Alexsander Dickinson LYMPH # 1.1 103/ul Critically low 1.2-3.8 [facility] Comment on above: Performed By: #### C BC #### [facility] [address] [place] [address] Dr. Alexsander Dickinson Lymphocytes/100 WBC (Bld) 6.4 % Critically low 20.5-60.0 [facility] Comment on above: Performed By: #### C BC #### [facility] [address] [address] [address] Alexsander Dickinson MANUAL DIFF REQ NO Normal [facility] Comment on above: Performed By: #### C BC #### [facility] [address] [place] [address] Dr. Alexsander Dickinson MCH (RBC) [Entitic mass] 26.1 pg Critically low 26.7-34.0 [facility] Comment on above: Performed By: #### C BC #### [facility] [address] [address] [address] Alexsander Dickinson MCHC (RBC) [Mass/Vol] 32.5 g/dL Normal 29.9-35.2 [facility] Comment on above: Performed By: #### C BC #### [facility] [address] [address] [address] Alexsander Dickinson MCV (RBC) [Entitic vol] 80.2 fL Critically low 81.0-99.0 [facility] Comment on above: Performed By: #### C BC #### [facility] [address] [address] [address] Alexsander Dickinson MONO # 0.4 103/ul Normal 0.3-0.8 [facility] Comment on above: Performed By: #### C BC #### [facility] [address] [address] [address] Alexsander Dickinson Monocytes/100 WBC (Bld) 2.1 % Normal 1.7-12.0 [facility] Comment on above: Performed By: #### C BC #### [facility] [address] [address] [address] Alexsander Dickinson NEUT # 15.5 103/ul Critically high 1.4-6.5 [facility] Comment on above: Performed By: #### C BC #### [facility] [address] [address] [address] Alexsander Dickinson Neutrophils/100 WBC (Bld) 90.6 % Critically high 43.0-75.0 [facility] Comment on above: Performed By: #### C BC #### [facility] [address] [address] [address] Alexsander Dickinson Platelet mean volume (Bld) [Entitic vol] 10.7 fL Normal 9.5-13.5 [facility] Comment on above: Performed By: #### C BC #### [facility] [address] [address] [address] Alexsander Dickinson PLT 310 103/ul Normal 150-450 [facility] Comment on above: Performed By: #### C BC #### [facility] [address] [address] [address] Alexsander Dickinson RBC 4.10 106/ul Critically low 4.20-5.40 [facility] Comment on above: Performed By: #### C BC #### [facility] [address] [place] [address] Dr. Alexsander Dickinson WBC 17.1 103/ul Critically high 4.0-11.0 [facility] Comment on above: Performed By: #### C BC #### [facility] [address] [place] [address] Dr. Alexsander Dickinson CBC AUTO DIFFon 02-01-2023 BASO # 0.0 103/ul Normal 0.0-0.1 [facility] Comment on above: Performed By: #### A 1C #### [facility] [address] [place] [address] Dr. Alexsander Dickinson Basophils/100 WBC (Bld) 0.2 % Normal 0.2-2.0 [facility] Comment on above: Performed By: #### A 1C #### [facility] [address] [place] [address] Dr. Alexsander Dickinson EO # 0.0 103/ul Normal 0.0-0.7 [facility] Comment on above: Performed By: #### A 1C #### [facility] [address] [place] [address] Dr. Alexsander Dickinson Eosinophils/100 WBC (Bld) 0.4 % Critically low 0.9-7.0 [facility] Comment on above: Performed By: #### A 1C #### [facility] [address] [place] [address] Dr. Alexsander Dickinson Erythrocyte distribution width (RBC) [Ratio] 12.9 % Normal 11.0-15.0 [facility] Comment on above: Performed By: #### A 1C #### [facility] [address] [place] [address] Dr. Alexsander Dickinson Hematocrit (Bld) [Volume fraction] 34.2 % Critically low 36.0-48.0 [facility] Comment on above: Performed By: #### A 1C #### [facility] [address] [address] [address] Alexsander Dickinson Hemoglobin (Bld) [Mass/Vol] 11.4 g/dL Critically low 12.0-16.0 [facility] Comment on above: Performed By: #### A 1C #### [facility] [address] [address] [address] Alexsander Dickinson IG # 0.04 10e3/ul Critically high 0.00-0.03 [facility] Comment on above: Performed By: #### A 1C #### [facility] [address] [address] [address] Alexsander Dickinson IG % 0.5 % Normal 0.0-0.5 [facility] Comment on above: Performed By: #### A 1C #### [facility] [address] [address] [address] Alexsander Dickinson LYMPH # 2.1 103/ul Normal 1.2-3.8 [facility] Comment on above: Performed By: #### A 1C #### [facility] [address] [place] [address] Dr. Alexsander Dickinson Lymphocytes/100 WBC (Bld) 23.9 % Normal 20.5-60.0 [facility] Comment on above: Performed By: #### A 1C #### [facility] [address] [place] [address] Dr. Alexsander Dickinson MANUAL DIFF REQ NO Normal [facility] Comment on above: Performed By: #### A 1C #### [facility] [address] [address] [address] Alexsander Dickinson MCH (RBC) [Entitic mass] 27.0 pg Normal 26.7-34.0 [facility] Comment on above: Performed By: #### A 1C #### [facility] [address] [place] [address] Dr. Alexsander Dickinson MCHC (RBC) [Mass/Vol] 33.3 g/dL Normal 29.9-35.2 [facility] Comment on above: Performed By: #### A 1C #### [facility] [address] [address] [address] Alexsander Dickinson MCV (RBC) [Entitic vol] 81.0 fL Normal 81.0-99.0 [facility] Comment on above: Performed By: #### A 1C #### [facility] [address] [address] [address] Alexsander Dickinson MONO # 0.5 103/ul Normal 0.3-0.8 [facility] Comment on above: Performed By: #### A 1C #### [facility] [address] [place] [address] Dr. Alexsander Dickinson Monocytes/100 WBC (Bld) 6.0 % Normal 1.7-12.0 [facility] Comment on above: Performed By: #### A 1C #### [facility] [address] [place] [address] Dr. Alexsander Dickinson NEUT # 5.9 103/ul Normal 1.4-6.5 [facility] Comment on above: Performed By: #### A 1C #### [facility] [address] [place] [address] Dr. Alexsander Dickinson Neutrophils/100 WBC (Bld) 69.0 % Normal 43.0-75.0 [facility] Comment on above: Performed By: #### A 1C #### [facility] [address] [place] [address] Dr. Alexsander Dickinson Platelet mean volume (Bld) [Entitic vol] 10.5 fL Normal 9.5-13.5 [facility] Comment on above: Performed By: #### A 1C #### [facility] [address] [place] [address] Dr. Alexsander Dickinson PLT 275 103/ul Normal 150-450 [facility] Comment on above: Performed By: #### A 1C #### [facility] [address] [place] [address] Dr. Alexsander Dickinson RBC 4.22 106/ul Normal 4.20-5.40 [facility] Comment on above: Performed By: #### A 1C #### [facility] [address] [address] [address] Alexsander Dickinson WBC 8.6 103/ul Normal 4.0-11.0 [facility] Comment on above: Performed By: #### A 1C #### [facility] [address] [place] [address] Dr. Alexsander Dickinson LDHon 02-01-2023 LDH 124 U/L Normal 81-234 [facility] Comment on above: Performed By: #### C MP, LDH, URIC #### [facility] [address] [place] [address] Dr. Alexsander Dickinson POINT OF CARE GLUCOSEon Glucose [Mass/Vol] 98 mg/dL Normal 74-[address] [facility] Comment on above: Performed By: #### A 1C #### [facility] [address] [place] [address] Dr. Alexsander Dickinson PROF 14(COMP METB)on 023 Albumin [Mass/Vol] 2.5 g/dL Critically low 3.4-5.0 [facility] Comment on above: Performed By: #### C MP, LDH, URIC #### [facility] [address] [place] [address] Dr. Alexsander Dickinson Albumin/Globulin [Mass ratio] 0.6 {ratio} Normal [facility] Comment on above: Performed By: #### C MP, LDH, URIC #### [facility] [address] [place] [address] Dr. Alexsander Dickinson ALP [Catalytic activity/Vol] 138 U/L Critically high 46-116 [facility] Comment on above: Performed By: #### C MP, LDH, URIC #### [facility] [address] [place] [address] Dr. Alexsander Dickinson ALT [Catalytic activity/Vol] 15 U/L Normal 14-59 [facility] Comment on above: Performed By: #### C MP, LDH, URIC #### [facility] [address] [place] [address] Dr. Alexsander Dickinson Anion gap [Moles/Vol] 14.5 mmol/L Normal [facility] Comment on above: Performed By: #### C MP, LDH, URIC #### [facility] [address] [address] [address] Alexsander Dickinson AST [Catalytic activity/Vol] 8 U/L Critically low 15-37 [facility] Comment on above: Performed By: #### C MP, LDH, URIC #### [facility] [address] [place] [address] Dr. Alexsander Dickinson Bilirubin [Mass/Vol] 0.2 mg/dL Normal 0.2-1.0 [facility] Comment on above: Performed By: #### C MP, LDH, URIC #### [facility] [address] [place] [address] Dr. Alexsander Dickinson Calcium [Mass/Vol] 8.6 mg/dL Normal 8.5-10.[address] [facility] Comment on above: Performed By: #### C MP, LDH, URIC #### [facility] [address] [place] [address] Dr. Alexsander Dickinson Chloride [Moles/Vol] 103 mmol/L Normal 98-107 [facility] Comment on above: Performed By: #### C MP, LDH, URIC #### [facility] [address] [place] [address] Dr. Alexsander Dickinson CO2 [Moles/Vol] 23.7 mmol/L Normal 21.0-32.0 [facility] Comment on above: Performed By: #### C MP, LDH, URIC #### [facility] [address] [place] [address] Dr. Alexsander Dickinson Creatinine [Mass/Vol] 0.61 mg/dL Normal 0.55-1.02 [facility] Comment on above: Performed By: #### C MP, LDH, URIC #### [facility] [address] [place] [address] Dr. Alexsander Dickinson EGFR-AF MAURITIAN >60 Normal >=60 [facility] Comment on above: Performed By: #### C MP, LDH, URIC #### [facility] [address] [place] [address] Dr. Alexsander Dickinson EGFR-NON AF MAURITIAN >60 Normal >=60 [facility] Comment on above: Performed By: #### C MP, LDH, URIC #### [facility] [address] [address] [address] Alexsander Dickinson Globulin (S) [Mass/Vol] 4.1 g/dL Normal [facility] Comment on above: Performed By: #### C MP, LDH, URIC #### [facility] [address] [address] [address] Alexsander Dickinson Glucose [Mass/Vol] 123 mg/dL Critically high 74-106 [facility] Comment on above: Performed By: #### C MP, LDH, URIC #### [facility] [address] [address] [address] Alexsander Dickinson Potassium [Moles/Vol] 4.2 mmol/L Normal 3.5-5.1 [facility] Comment on above: Performed By: #### C MP, LDH, URIC #### [facility] [address] [place] [address] Dr. Alexsander Dickinson Protein [Mass/Vol] 6.6 g/dL Normal 6.4-8.2 [facility] Comment on above: Performed By: #### C MP, LDH, URIC #### [facility] [address] [place] [address] Dr. Alexsander Dickinson Sodium [Moles/Vol] 137 mmol/L Normal 136-[address] [facility] Comment on above: Performed By: #### C MP, LDH, URIC #### [facility] [address] [place] [address] Dr. Alexsander Dickinson Urea nitrogen [Mass/Vol] 5.0 mg/dL Critically low 7.0-18.0 [facility] Comment on above: Performed By: #### C MP, LDH, URIC #### [facility] [address] [place] [address] Dr. Alexsander Dickinson Urea nitrogen/Creatinine [Mass ratio] 8.2 mg/mg Normal [facility] Comment on above: Performed By: #### C MP, LDH, URIC #### [facility] [address] [place] [address] Dr. Alexsander Dickinson PROTIMEon 02-01-2023 INR Coag (PPP) [Relative time] {INR} Normal [facility] Comment on above: Performed By: #### H BSANS #### [facility] [address] [place] [address] Dr. Alexsander Dickinson INR GUIDELINES SEE BELOW Normal [facility] Comment on above: Result Comment: CAROLEE RED INR: 2.0 - 3.0 CONDITIONS NOT LISTED BELOW 2.5 - 3.5 FOR PROSTHETIC HEART VALVE REPLACEMENT 2.5 - 3.5 RECURRENT THROMBOSIS Performed By: #### H BSANS #### [facility] [address] [place] [address] Dr. Alexsander Dickinson PT Coag (PPP) [Time] 9.2 s Normal 9.0-11.6 [facility] Comment on above: Performed By: #### H BSANS #### [facility] [address] [place] [address] Dr. Alexsander Dickinson PTTon 02-01-2023 aPTT Coag (Bld) [Time] 25.9 s Normal 22.3-36.2 [facility] Comment on above: Performed By: #### H BSANS #### [facility] [address] [place] [address] Dr. Alexsander Dickinson TYPE AND SCREENon 02-01-2023 TYPE AND SCREEN Negative Normal [facility] Comment on above: Performed By: #### A FPMAT #### [facility] [address] [place] [address] Dr. Alexsander Dickinson URIC ACID SERUMon 02-01-2023 Urate [Mass/Vol] 5.5 mg/dL Normal 2.6-6.0 [facility] Comment on above: Performed By: #### C MP, LDH, URIC #### [facility] [address] [place] [address] Dr. Alexsander Dickinson US PREG BIOPHY W [...] by: DEE GALLEGOS Date: 2023-02-01 15:04 Normal [facility] US PREG BIOPHY W NON [...] by: SEBASTIAN HENRY Date: 2023-01-25 15:18 Normal [facility] PREG BIOPHY W NON STRESSo n 01-19-2023 [...] by: DEE GALLEGOS Date: 2023-01-19 06:16 Normal [facility] US PREG BIOPHY W NON [...] DEE GALLEGOS Date: 2023-01-11 15:38 Normal [facility] US PREG GROWTHon 01-11-2023 US [...] DEE GALLEGOS Date: 2023-01-11 16:42 Normal [facility] GTT 3 HR PREGon 12-01-2022 Glucose [Mass/Vol] 104 mg/dL Normal 74-106 [facility] Comment on above: Performed By: #### A 1C #### [facility] [address] [address] [address] Alexsander Dickinson Glucose [Mass/Vol] 182 mg/dL Normal [facility] Comment on above: Performed By: #### A 1C #### [facility] [address] [address] [address] Alexsander Dickinson Glucose [Mass/Vol] 114 mg/dL Normal [facility] Comment on above: Performed By: #### A 1C #### [facility] [address] [address] [address] Alexsander Dickinson Glucose [Mass/Vol] 73 mg/dL Normal [facility] Comment on above: Performed By: #### A 1C #### [facility] [address] [address] [address] Alexsander Dickinson PAP ACOG PANEL 2: 20 to 28on 11-18-2022 . . Normal [facility] Comment on above: Performed By: #### A 1C #### [facility] [address] [address] [address] Alexsander Dickinson Age Gdln ACOG Testing - [facility] Comment on above: Performed By: #### A 1C #### [facility] [address] [address] [address] Alexsander Dickinson DIAGNOSIS: Comment [facility] Comment on above: Result Comment: NEGA TIVE FOR INTRAEPITHELIAL LESION OR MALIGNANCY. Performed By: #### A 1C #### [facility] [address] [place] [address] Dr. Alexsander Dickinson Methodology: Comment [facility] Comment on above: Result Comment: This liquid based ThinPrep(R) pap test was screened with the use of an image guided system. Performed By: #### A 1C #### [facility] [address] [place] [address] Dr. Alexsander Dickinson Note: Comment [facility] [...] . Performed By: #### A 1C #### [facility] [address] [address] [address] Alexsander Dickinson Performed by: Comment Normal [facility] Comment on above: Result Comment: Cici Clarke, Clinical Registered Nurse (ASCP) Performed By: #### A 1C #### [facility] [address] [place] [address] Dr. Alexsander Dickinson Reflex Criteria: Comment [facility] Comment on above: Result Comment: The HPV DNA reflex criteria were not met with this specimen result therefore, no HPV testing was performed. . Performed By: #### A 1C #### [facility] [address] [place] [address] Dr. Alexsander Dickinson Specimen adequacy: Comment Normal [facility] Comment on above: Result Comment: Sati sfactory for evaluation. No endocervical component is identified. Performed By: #### A 1C #### [facility] [address] [place] [address] Dr. Alexsander Dickinson CHLAMYDIA/GONOCOCCUS ZUNILDA (SW AB/URINE/PAPon 11-17-2022 Chlamydia trachomatis, ZUNILDA Negative Normal Negative [facility] Comment on above: Performed By: #### A 1C #### [facility] [address] [place] [address] Dr. Alexsander Dickinson Neisseria gonorrhoeae, ZUNILDA Negative Normal Negative [facility] Comment on above: Performed By: #### A 1C #### [facility] [address] [place] [address] Dr. Alexsander Dickinson VAGINITIS/VAGINOSIS DNA PROB Jose De Jesus 11-16-2022 Reema species Negative Normal Negative [facility] Comment on above: Performed By: #### V AGINT #### [facility] [address] [place] [address] Dr. Alexsander Dickinson Gardnerella vaginalis Negative Normal Negative [facility] Comment on above: Performed By: #### V AGINT #### [facility] [address] [place] [address] Dr. Alexsander Dickinson Trichomonas vaginalis Negative Normal Negative [facility] Comment on above: Performed By: #### V AGINT #### [facility] [address] [place] [address] Dr. Alexsander Dickinson US PREG INCOMPLETE ANATOMYon 11-14-2022 US PREG INCOMPLETE ANATOMY EXAMINATION: US PREG INCOMPLETE ANATOMY HISTORY: screening COMPARISON: No relevant comparison available. FINDINGS: Heart rate: 150 bpm position: Variable Anatomy: 4.8 x 5.8 mm choroid plexus cyst is again identified IMPRESSION: Stable choroid plexus cyst Electronically authenticated by: SEBASTIAN HENRY Date: 2022-11-14 16:19 Normal [facility] FREE T4on 10-19-2022 Free T4 [Mass/Vol] 0.89 ng/dL Normal 0.76-1.46 [facility] Comment on above: Performed By: #### H BSANS #### [facility] [address] [place], [place] [address] Dr. Alexsander Dickinson TSHon 10-19-2022 TSH 1.303 uIU/mL Normal 0.358-3.740 [facility] Comment on above: Performed By: #### H BSANS #### [facility] [address] [place], [place] [address] Dr. Alexsander Dickinson US PREG ANATOMY SINGLEon [...] DEE GALLEGOS Date: 2022-10-17 20:42 Normal [facility] AFP MATERNAL FOR SPINA BIFID Aon 10-11-2022 AFP MoM 1.49 Normal [facility] Comment on above: Performed By: #### A FPMAT #### [facility] [address] [address] [address] Alexsander Dickinson AFP Value 60.8 ng/mL Normal [facility] Comment on above: Performed By: #### A FPMAT #### [facility] [address] [address] [address] Alexsander Dickinson AFP, Serum for Spina Bifida Report Normal [facility] Comment on above: Performed By: #### A FPMAT #### [facility] [address] [address] [address] Alexsander Dickinson Comment Comment Normal [facility] Comment on above: Result Comment: Niurka Patricia, Ph.D., [facility] Director . References: Available Upon Request. . Multiples Of Median Cutoffs For AFP Elevations Fonseca 2.5 Black 2.8 IDD 2.0 Twins 4.5 Abbreviation Definitions IDD - Insulin Dep Diabetes OSBR - Open Spina Bifida Risk . For further inquiries contact [email or web address] at [phone]. . This test was developed and its performance characteristics determined by [facility]. It has not been cleared or approved by the Food and Drug Administration. Performed By: #### A FPMAT #### [facility] [address] [place] [address] Dr. Alexsander Tiwari Age Collection Date 19.4 weeks Normal [facility] Comment on above: Performed By: #### A FPMAT #### [facility] [address] [place], [place] [id number] Dr. Alexsander Dickinosn Gestat, Age Based on NILE [facility] Comment on above: Result Comment: 02/2023 Recalculations are not recommended when gestational dating by LMP and ultrasound are within 10 days. Performed By: #### A FPMAT #### [facility] [address] [place] [address] Dr. Alexsander Dickinson Insulin Dep Diabetes No Normal [facility] Comment on above: Performed By: #### A FPMAT #### [facility] [address] [place] [address] Dr. Alexsander Dickinson Interpretation Comment Normal [facility] Comment on above: Result [...] Customer Services to discuss available options. The [employer] recommends amniocentesis be offered to women age 35 and older. Performed By: #### A FPMAT #### [facility] [address] [place] [address] Dr. Alexsander Dickinson [age] Normal [facility] Comment on above: Performed By: #### A FPMAT #### [facility] [address] [place] [address] Dr. Alexsander Dickinson Multiple Gestation No Normal [facility] Comment on above: Performed By: #### A FPMAT #### [facility] [address] [place] [address] Dr. Alexsander Dickinson OSBR Risk 1 [place] 2809 Normal [facility] Comment on above: Performed By: #### A FPMAT #### [facility] [address] [place] [address] Dr. Alexsander Dickinson PDF . Normal [facility] Comment on above: Performed By: #### A FPMAT #### [facility] [address] [place] [address] Dr. Alexsander Dickinson Race Normal [facility] Comment on above: Performed By: #### A FPMAT #### [facility] [address] [place] [address] Dr. Alexsander Dickinson Test Results: Negative Normal [facility] Comment on above: Performed By: #### A FPMAT #### [facility] [address] [place] [address] Dr. Alexsander Dickinson GTT 3 HR PREGon 09-29-2022 Glucose [Mass/Vol] 99 mg/dL Normal 74-[address] [facility] Comment on above: Performed By: #### A FPMAT #### [facility] [address] [address] [address] Alexsander Dickinson Glucose [Mass/Vol] 173 mg/dL Normal [facility] Comment on above: Performed By: #### A FPMAT #### [facility] [address] [address] [address] Alexsander Dickinson Glucose [Mass/Vol] 151 mg/dL Normal [facility] Comment on above: Performed By: #### A FPMAT #### [facility] [address] [place] [address] Dr. Alexsander Dickinson Glucose [Mass/Vol] 76 mg/dL Normal [facility] Comment on above: Performed By: #### A FPMAT #### [facility] [address] [place] [address] Dr. Alexsander Diciknson GLUCOSE - 1HRon 09-20-2022 Glucose [Mass/Vol] 159 mg/dL Critically high 74-106 T [facility] Comment on above: Performed By: #### H BSANS #### [facility] [address] [place] [address] Dr. Alexsander Dickinson HEP B SURFACE ANTIGEN SCREEN on 08-17-2022 HBsAg Screen Negative Normal Negative [facility] Comment on above: Performed By: #### H BSANS #### [facility] [address] [place] [address] Dr. Alexsander Dickinson HEPATITIS C VIRUS AB W/ REFL EX QUANTon 08-17-2022 HCV AB <0.1 Normal 0.0-0.9 [facility] Comment on above: Performed By: #### A 1C #### [facility] [address] [place] [address] Dr. Alexsander Dickinson Interpretation: Comment Normal [facility] Comment on above: Result Comment: Nega tive Not infected with HCV, unless recent infection is suspected or other evidence exists to indicate HCV infection. Performed By: #### A 1C #### [facility] [address] [place] [address] Dr. Alexsander Dickinson HIV 1 AND 2 WITH REFLEXon HIV Screen 4th Generation wRfx Non-Reactive Normal Non Reactive [facility] Comment on above: Result Comment: HIV Negative HIV-1/HIV-2 antibodies and HIV-1 p24 antigen were NOT detected. There is no laboratory evidence of HIV infection. Performed By: #### H IV12 #### [facility] [address] [address] [address] Alexsander Dickinson RPR QUANTon 08-17-2022 Rapid Plasma Reagin, Quant Non-Reactive Normal NonRea<1:1 [facility] [...] utilized, such as Treponema pallidum (Syphilis) Screening [place] (890914) or Rapid Plasma Reagin (RPR) Test With Reflex to Quantitative RPR and Confirmatory Treponema pallidum Antibodies (726871). Performed By: #### H BSANS #### [facility] [address] [place] [address] Dr. Alexsander Dickinson RUBELLA AB IGGon 08-17-2022 Rubella Antibodies, IgG 11.90 index Normal Immune >0.99 [facility] Comment on above: Result Comment: Non- immune <0.90 Equivocal 0.90 - 0.99 Immune >0.99 Performed By: #### H BSANS #### [facility] [address] [place] [address] Dr. Alexsander Dickinson CBC AUTO DIFFon 08-16-2022 BASO # 0.1 103/ul Normal 0.0-0.1 [facility] Comment on above: Performed By: #### H BSANS #### [facility] [address] [place] [address] Dr. Alexsander Dickinson Basophils/100 WBC (Bld) 0.6 % Normal 0.2-2.0 [facility] Comment on above: Performed By: #### H BSANS #### [facility] [address] [address] [address] Alexsander Dickinson EO # 0.1 103/ul Normal 0.0-0.7 [facility] Comment on above: Performed By: #### H BSANS #### [facility] [address] [address] [address] Alexsander Dickinson Eosinophils/100 WBC (Bld) 0.9 % Normal 0.9-7.0 [facility] Comment on above: Performed By: #### H BSANS #### [facility] [address] [place] [address] Dr. Alexsander Dickinson Erythrocyte distribution width (RBC) [Ratio] 12.9 % Normal 11.0-15.0 [facility] Comment on above: Performed By: #### H BSANS #### [facility] [address] [place] [address] Dr. Alexsander Dcikinson Hematocrit (Bld) [Volume fraction] 39.0 % Normal 36.0-48.0 [facility] Comment on above: Performed By: #### H BSANS #### [facility] [address] [place] [address] Dr. Alexsander Dickinson Hemoglobin (Bld) [Mass/Vol] 12.9 g/dL Normal 12.0-16.0 [facility] Comment on above: Performed By: #### H BSANS #### [facility] [address] [place] [address] Dr. Alexsander Dickinson IG # 0.04 10e3/ul Critically high 0.00-0.03 [facility] Comment on above: Performed By: #### H BSANS #### [facility] [address] [place] [address] Dr. Alexsander Dickinson IG % 0.4 % Normal 0.0-0.5 [facility] Comment on above: Performed By: #### H BSANS #### [facility] [address] [place] [address] Dr. Alexsander Dickinson LYMPH # 2.4 103/ul Normal 1.2-3.8 [facility] Comment on above: Performed By: #### H BSANS #### [facility] [address] [place] [address] Dr. Alexsander Dickinson Lymphocytes/100 WBC (Bld) 26.3 % Normal 20.5-60.0 [facility] Comment on above: Performed By: #### H BSANS #### [facility] [address] [place] [address] Dr. Alexsander Dickinson MANUAL DIFF REQ NO Normal [facility] Comment on above: Performed By: #### H BSANS #### [facility] [address] [place] [address] Dr. Alexsander Dickinson MCH (RBC) [Entitic mass] 28.4 pg Normal 26.7-34.0 [facility] Comment on above: Performed By: #### H BSANS #### [facility] [address] [place] [address] Dr. Alexsander Dickinson MCHC (RBC) [Mass/Vol] 33.1 g/dL Normal 29.9-35.2 [facility] Comment on above: Performed By: #### H BSANS #### [facility] [address] [place] [address] Dr. Alexsander Dickinson MCV (RBC) [Entitic vol] 85.7 fL Normal 81.0-99.0 [facility] Comment on above: Performed By: #### H BSANS #### [facility] [address] [place] [address] Dr. Alexsander Dickinson MONO # 0.6 103/ul Normal 0.3-0.8 [facility] Comment on above: Performed By: #### H BSANS #### [facility] [address] [place] [address] Dr. Alexsander Dickinson Monocytes/100 WBC (Bld) 6.8 % Normal 1.7-12.0 [facility] Comment on above: Performed By: #### H BSANS #### [facility] [address] [place] [address] Dr. Alexsander Dickinson NEUT # 5.8 103/ul Normal 1.4-6.5 [facility] Comment on above: Performed By: #### H BSANS #### [facility] [address] [address] [address] Alexsander Dickinson Neutrophils/100 WBC (Bld) 65.0 % Normal 43.0-75.0 [facility] Comment on above: Performed By: #### H BSANS #### [facility] [address] [address] [address] Alexsander Dickinson Platelet mean volume (Bld) [Entitic vol] 9.9 fL Normal 9.5-13.5 [facility] Comment on above: Performed By: #### H BSANS #### [facility] [address] [address] [address] Alexsander Dickinson PLT 275 103/ul Normal 150-450 [facility] Comment on above: Performed By: #### H BSANS #### [facility] [address] [place] [address] Dr. Alexsander Dickinson RBC 4.55 106/ul Normal 4.20-5.40 [facility] Comment on above: Performed By: #### H BSANS #### [facility] [address] [address] [address] Alexsander Dickinson WBC 8.9 103/ul Normal 4.0-11.0 [facility] Comment on above: Performed By: #### H BSANS #### [facility] [address] [place] [address] Dr. Alexsander Dickinson CULTURE URINEon 08-16-2022 CULTURE URINE Culture Observations: MODERATE GROWTH OF MIXED GENITAL JOHN. NO POTENTIAL PATHOGENS SEEN. Normal [facility] Comment on above: Performed By: #### A FPMAT #### [facility] [address] [place] [address] Dr. Alexsander Dickinson GLYCOHEMOGLOBIN A1Con 2021 ADA RECOMMENDATION SEE BELOW Normal [facility] Comment on above: Result Comment: ADA RECOMMENDED LIMIT 4.0 - 6.0 ADA THERAPEUTIC TARGET < 7.0 ACTION SUGGESTED > 7.0 Performed By: #### A 1C #### [facility] [address] [place] [address] Dr. Alexsander Dickinson Glucose [Mass/Vol] 111 mg/dL Normal [facility] Comment on above: Performed By: #### A 1C #### [facility] [address] [address] [address] Alexsander Dickinson HbA1c (Bld) [Mass fraction] 5.5 % Normal 4.5-6.2 [facility] Comment on above: Performed By: #### A 1C #### [facility] [address] [place] [address] Dr. Alexsander Dickinson LATRELL BOX TEST PT SEND OUTo n 08-16-2022 SENT TO REF LAB 08/16/2022 Normal [facility] Comment on above: Performed By: #### N BOX #### [facility] [address] [place] [address] Dr. Alexsander Dickinson TYPE AND SCREENon 08-16-2022 TYPE AND SCREEN Negative Normal [facility] Comment on above: Performed By: #### A FPMAT #### [facility] [address] [place] [address] Dr. Alexsander Dickinson US PREG TVon 07-21-2022 [...] DEE GALLEGOS Date: 2022-07-20 22:25 Normal [facility] US PREG TVon 07-13-2022 US PREG TV EXAMINATION: US PREG TV HISTORY: Missed period COMPARISON: 03/09/2022 FINDINGS: Fonseca intrauterine gestation Gestational sac: 1.7 cm, 6 weeks 2 days Yolk sac: 1.7 mm Barrera-rump length: 5.8 mm, 6 weeks 3 days Heart rate: 125 bpm Uterus is normal in appearance, anteverted, retroflexed The ovaries are normal in appearance. Cervix: Closed, 3.9 cm small amount of fluid in the endocervical canal IMPRESSION: Viable fonseca intrauterine gestation measuring 6 weeks 3 days Electronically authenticated by: SEBASTIAN HENRY Date: 2022-07-13 17:05 Normal [facility] Coding Summaryon 03-17-2022 Coding Summary HTMLBase 64 HxqosilrGFf0fPe+PGhl YWQ+HH4KXVRgD38qoQYn oR6ZB2jKEZ5IJTOJKZMZ XT0JYT1odYF7LMkwF5Fo biAv IpcvwSHmQV50WZi6WJH3 bAovYLswtW9nyUSxT8w7 MrMxSR55uL54NLvxUUDx HiQ5AwCudqbdvHVh D7jzXvUjwWBvOyv+PHRh YmxlIHdpZHRoPScxMDAl KlAznWsnBF4xDv5zLHXj LWNvbGxhcHNlOiBj m4paZMLbEEhyVO4ojXxv V1JhpEK5CHJgj4e1Xr16 dHI+EWWcYZW6gFmcZQeu d032TvWgl2mdJNF4 nMObJTicVMO6P06di5W1 TYUfWFJmQEQ8fXY7eP6p pPjyaqkpN8ZtzXHqNbP4 KOD1xMHuaK9qyMfa aglrkP7mBbc+B61CBP2U VCOGYE9AAfc2X7WuUrtg dHI+AP03JJVpJM54oFQq qQIlb1xnwHk7UhQi HWPbXNL4lCkpWXmwh1Vn TXZmL34fvMJvy4H6DTXy qMbzmASrBlMnuIW2rW3g ZHkqbwpje2goacev Xkplq9oynz78sD13F08f ARfmNWGiBFR7WLZiRNOu zMgmav7seI5iYg0+IDxj h8zgm4uczDj4VnSp AOOrmrIfrVjqMEV9t8Ut Ky54M0BmsAqmn7AsQmn8 zg37xIKqz0U8zUH7UYpi RFVjtC0uYUheMoL0 XLDfGvJfuR84mESaDWds Wy8ntVfsdAapSW0pBNUf yvgxOGSlvF5fFWOcoBRv bHaaYL1wQNUxazoy x311IvEiQSD7XYPioGOl A6ImpW1zFhXfIYHiCXYx P1MbjXTsIRozR666BSwj OfE3PKCwsiBkQ8Ys ACTrmDrxGdB8n7K5Rf4X d5HkbzzpAWE7NGsdJKG8 QkShTaByEoQ2A9BdFch3 JFLueSmlHF8jR1Zk VEOtgofirmmccBU4NPXf CGUvsA55lCOvQBikHo8r q6P8u489TDPrQBYccI44 Rh5mjTiaLCJbtMHR zI4ehmqbn1dbfmhvJdWa SAQiRDs1YQt0QFSqgHak JuEeQBE6EbH9FHI3iHHl yM6fmSuggjuuhN3e Oyc+W44yyU1cCNC7PPT5 rmnjHBVqkfOsCO70WC71 O1ZkXxghcOGysPQ+PGRp hcZlaUkwRF1mTpFa f5xat6WeZJclG4ErWYCp KPqyWxq9NYEqIRY7tUU4 dS6kKQHrRCedx3E5tVW1 H4UagrMqdf6yu2yr MKKxGIacP40ghPSvy1N9 MUWzvQB9ESXluJttStNk cK79Gku+PWRtaSaxl7Rt Umsle8lju0biaLa8 IjMwJSIgdmFsaWduPSJ0 n5UgJr31Y70aWJtrVHSj CLTqBTTjFWWdvQtaop1g hM7aRl0+PGNvbCB3 hUK7jD9yUPWaRoG9NEzk G101TqXggWDlTxnlc8uo p1prnWm4HeIwFYAqkcWh cIacCRX2t4YlAf87 O19uLVuoIUUuPCPlZBGf RNDgxLepts1znG8nCv7+ FK4nq4ormh13hK48uYS+ QDGqSRI1aHgqRJyy BCAuvM9wKSxoSmW2GWVj QjJdtM63zBFwTByxWw0v bFomiCmqRW0hGDNgzrwj w798JqJev2odIVVq qYPyRBasOAE4V87az1F4 RFUyYWQrMKP0mLY1wF1c bGlnbjogbGVmdDsgdmVy aEenREbwFPlvD580 IHRvcDsnPlBhdGllbnQg TzPnUKi6O3CkXne1LOUo nEojTJ6jxAFyWRjyWj4o pXwfmShyLD3cWWPf heeen160SkBzs5kxLPFf eKNbZHgiHXA5D55kj7U2 ODGzEORwWQF6pQJ2jO8l bGlnbjogbGVmdDsg ccLgdPimJAneWRwdR948 IHRvcDsnPkJpcnRoIERh uEJ4AB38AN01kBZcp3N1 mOT9Q4PaEIOmuxit mcmxdKI5ILKfQTSmgB04 Ao4lxGjdGq5xDKXbOIK2 UIHejGXiB5SafY2cMhSa GJFpPUArJ1RhhTVo ICfoR584URkhVeB3XSNy zbZpG4YmQWOxdHcsLiO4 t8D2Fm2OG0O0TT57CJ46 gAQwo0J2rOF6A7Iq VXKsdbjutmbnyDR6EMKn WXDivZ90Qu7ufBlhWe4k QLHfEXS1HXEetBQyW3Zk qX5iMnJmAVOhWJPs G9VsfAQrAOnwE078JCjf IjU3BXQudiIyC7ShUVIt mVlfHpB9c0C4Ll1FCUf1 QV98TC78rSYxi9B8 qUH1N8UtZLPwphihuqed uCX3RMIbUEClvP28Hb4g eYmpAo0wKNLtUXA3UGYx uTCnY4OmhB9sIvRq MQCaLVZbB7RxnGUcJHaw W466UFdbXyD5NSXlgvHk H6CxVAFtfSsbGvD4e0C5 Yi5AYMHoKE02RGI6 eXA9NT79OS79G8SnQbei dGFibGU+PHRhYmxlIHdp ZHRoPScxMDAlJyBzdHls BG1fTw5nHMGuNHNt bSqqmWLrIrZkp9uoAHRo UZxoBU9ahDknC8NtdAX5 WGQzj2w6Ns99R67xP4Im dXA+RGGzgQL2xEQ7 aX5kPmTyWjW0WZdoS189 CeDjxZAbRugoa6wjb6ul gVj2FkT3BGFasxEaeHis SUX0y2HnAt20W78i IHdpZHRoPSIxNSUiIHZh bNbbjg7moC2sGi5+PGNv hSD4rLM6pZ8vFkPzPtE0 EBqxD732DgBrjDXr Pbnei1fqu5dfsXg1ZdRo BEWrcvTrrTvySAG5q7La Eu71B3AxaQssv9EsEht3 ek88yGVhu4D3rCP5 G4YgUYUocnsruBApvKvb MQ0xTZPefrbrXLXgeH3d AEJaR0w1QkPeRfE1PDsy E2TmxhR0TIPasFQu NDawKFR9B00zz9F8AYYx KIYoLIB4vOT0pP3bhRab bjogbGVmdDsgdmVydGlj LVgqKWmzO262DCFh oFtvYDTczR4lHBAjuMHs yRxvZQ0qDQCexewrLvHE TExJTlMsIEFMWVNTQSBS XLMYENi2U1EdOyo5 IINxxBscKK1ilPKdNIte Gt8rbMycgRkuPF9uJDQh ynmfDKLgnC6rUDThbSJi nBbzND8uTIMvttiu j240GwWtRKD3QARppGRq S3MumE9hXgAkVGAsCDAg R8IvzEPfKAbbA241VLut EeS4GAXhiuFyI0Rm ERUpkTzlPfG2r5Y8Zu0d HT9xLv9iHYs6KZ92VK96 vDVbt0J7jGI4B3AtXJZu kmafppeosRX2LRVy ALOdrX13aQElHFxtDk1l q2X5j677IIFfPRNmfD22 Yx2vlYnjMANqfVQQpR0l qrekq9hlcymoBmTk FLGyEWj5LFg5YOLjzDdt CeBsJKG5RqA1AMO3aJHw cH6bhAbwlfiehW2hKua+ HhjzAMEhooG1K4Rr Pfk9NNYgdMdvGE0huXYu SVpoLd6dlNqqeXwhCM7s HJOtfcpvBMFqxJ1mMBKl aUWaiXgqQZ9rMSZv kfmhg464ItQoJPJ7FAFs cXObH7NrvX4yMbVvJUZs SOYsA6FlqHDrVXntD051 RQpcQxT3DYEwfyLy N3OfZTPypXxjEeY3w9F2 Rv6ESU6LDJK1Y9DxUhg5 IEWmvErxLI0veTUvNVaf Dp1qpMgzeCndXR9w GBRhksrdRHAugU0aUIRk pCSieAjuDJ5uMQNqiayp f912DuEnYPS9PZBddWZd L1AmnI9qFoEoTPMm QNLoR7IvkPOqWBweA462 QTbqGsK8RBZfhtZqC0Lx MMOhaNgnZsR2m1I6Po7Y UDwvdGQ+AG07pz93 L2ZmNuslPdg3WCBpKQS0 yDD3cZ8mSNNuHFxvz3E2 hVA7Q3VipvYaqg5fq2fb HSLcWQdbJ71lrMMx h8J6WRObaTA9XNFfeLno XrMgkH00Uhy+PGNvbGdy h2QtRajcb2wov2yfzLn0 IjMwJSIgdmFsaWdu ESX9y6ZtVk42E50eDQlg ZHRoPSIzMCUiIHZhbGln nu2deX0aNb6+PGNvbCB3 rQO2iO7bImOrQuV3 GFecK499QpZnlRHrUvnl z9zhj8mzqXn3WrXaRZSd xeAmnXttVAS5i6BwJc01 C2SjcIets3IwCah1 cc13bZRll0H3bPN6D9Wn KVQojmhvzQBciHdiWL1b LZZrmamoJMYtjG5nPIIj G9a5VkYdGxH1ROsu A7XzlmZ6EFTrhGOnCGQo uOSOkD7uxiuow9diyvyv HdIxZSAqYKx0XZn6EOVi lEcpHdBtMNR5LkQ5 ULX6gKHsnE0feCoejjhz oJ2mDlq+TXi3d1xcxAXc MX4fbJB1VT01ZK06rHCw o0D2oDK8H0IoJVVy qqytfayqpLB5FMCcHDWj fK75Bh5peYjlYc8jSGYt DFA3CBXfnNXmT9KizA1f JcAfWDLrDLSoQ3Mw jKSuLLnuJ059YKuxUgN0 RIAphnCsL0VsXBMcaJps GyF3n9V3Rb3JOI95FB95 WH73oFScx5W2nXH2 Z5CpMWBlojgcrpjbiYX6 JZPoUREdnO15Hh1yhWrw Ij1cTKGfXBB6MZZgnSTy E1MpzH6vPaIiKVPd DKObG5JogSUaJJzsU581 LLbwVmH2IILkjoSvT8Xk TQGtmHcrPqM7o7R3Ra4Y Xv37XI02RN21pFMk h7M7qAF0N6HtGILgxeed buqfpJL1MOOfVYKujU51 Gv9gtLsjWl2lGJTnUIQ8 LINayJCnT7SxyD7u FsGuMJBsULNsX6UwjCTb SObzA902UKnmHkX7WSDy xnGgW1PaNQNseKkyVfB2 t6M3Jd3JBHuwabg3 Q7IeXejalOA+CF52PBHz NB58kPHutTIuu6dsuFw6 GaQwCAWsQKR5zFafSSrh n8LbLCSjV96meJTi c2U (more content not included)... [facility] Coding Summary HTMLBase 64 TdqqyjhuDRm9wPo+PGhl YWQ+SR9MWZSyM82vwVAe dJ8OZ1vXAI3XVXKNVCYF MG0CME9qnLX8CNdfH3Aw biAv YfrmeVKrYG42ARa0ECX7 mVcdZArgsG4uaMQmW0a5 RwXyGP69eH91NGkfEQYx HnL5AjGmcvpeyVPk W7nzYiUacBRzJil+PHRh YmxlIHdpZHRoPScxMDAl QdWwdUkaSX1nVo0jSTEk LWNvbGxhcHNlOiBj w1suKPAfYZdqJF1ezZaz I1AicDM1GSVpb4f5Ya25 dHI+DGTxTTS9gQnfQGfr g971WkWtn3kvHJE0 mXGsVTydRHY4H55uk8B9 EFXpJYLjQGY3yEM9hY1x jQafxybcY5VpgKYxIcK0 RZN6hTDipX7lvXlb cbmhmR8cFrv+O00FKW4F OVJIUK8MXmm9F7SyQkjs dHI+JS30LLYzFZ55sSPl dDNjl7jmoZb9PlLa QCNoKFQ3oJscIHlul2Rh CDRqS35cmUXmc2L0FVKz bEezoZAhUbPsvCT5hV2r MAeowdpqk8phzwen Uwhiv7gyxe27iE09F99w YApwDIPtAJP3CKLtBLOj bWlxbz1rjR7nKb3+IDxj a2skg2qfdTt4KnHf BWMkvkUjhPzzJUB6g5Aj Yi38O9KqcZcwk4QnBlc2 wo67fNUrq3G3aVB1UKrq VOUltV8iYJmtPkD5 JXYvLuYttF83qYWmJWyb Nq9vdYlwmTozQT7lUOWd aaeaJLXsoD4qLBWejTPg vTrcNR9gAAUgvcos q590AfRaQYZ0JBYjpJOd J0XskQ0uEmYoDKNsRYXq M8KfgMMdXFdkU306CBjc WtA8NKRyibVmZ0Lj EZDrpIpbNqM7r7F3Jg6X i0FzhovbFOE5SXinCKH5 DtKrQeNwDoD5R7SfQgh4 OJQkeAzpHU1uL5Rj QXCpobepoqgcxYO5AYRv RLNycD62iBLyDNqmVv6e e8C8p238KKIaEGVeoS94 Ph6hnGuxRHJluNFJ mE7azbcda3qnkeeaGrXn XEJoBXt0MNz6DRFlyPmh YxIoZDU9YwR7VIH6lLDf oW2kuWyzlkyezT0n Oyc+V92jrR3vXYM2BIK9 brbuZPLuleWlNQ15NY02 J5PhIvsbkDVooFC+PGRp lsHkmBoiCR9vUqIs p4gkv2LwOXhuG8GtODAr DSnfSrw0KLViFTO4eWC0 cH7yMCDkGHihm1A6dAM0 C3ElenAtse4sw4ch IMAtZZubW68spQGqc4F6 PKPgiKC0AQMvkMliCrWo jV60Dis+BXGoeSbis5Em Dwgle8zhw3bjvXe9 IjMwJSIgdmFsaWduPSJ0 r9JrIt04S82cSSbnAHQk JIDrFTCwOBXgzJcphl1c eZ3cXu4+PGNvbCB3 vIT9iA2nJUNoQgB9TIqh B603SnBsiVBbMvxbw8hh g8oipGr2FvWzPKQgduPc yNokCWY4q0MhXm68 N75cZMllMNErEMJgHBTa UKQmaOigul7hjK0pIo9+ HG7kr5xgsl10cT15uKV+ MHJxNYI4xWbcVEyi KCUpeG2lECmdHqF5QSQy GiIhuY43eAUzUCjgVi1e iYunyYikFR9rXTPfzyqn p302AiBlp0akOZVo xOKtFSlpARO2H47hp8C7 GDGgLOBzDIM6lKI2aB3m bGlnbjogbGVmdDsgdmVy mSenYRzhUQtaJ927 IHRvcDsnPlBhdGllbnQg OeMfRZa2Y7SbYus3SWQn wBdjLN6gwPAzCGivUg9u mIfuyVhmMR6bGCFw hryre584UfLaz6mgAAMd tUXmMNaySBC3I14tw6M2 TPAyAKEtHEM8sHX3dO9x bGlnbjogbGVmdDsg uxEuyVyhGMuaANaiZ596 IHRvcDsnPkJpcnRoIERh uHH4UH65CT86pWElo0H5 mAN6G1IhAEImttkc qdwhwIS3FGReCZOjgO68 Sh2fdCvgFx5yTNTwMRG8 WDFmzSGbQ0DmwJ1oBrNs GPTiCBApQ4AxpBUx JZweC988HWawMyQ9OFFb cmDdG4LaGSUonDyoTmF3 x2F2Vm8QX2D2ZB53KZ34 wKOxg5J2gXN3N3Es ZUQleaghlqvljRV9XJXq OVNivN15It5epQplMl4n BVDnTYJ9TZYndAAbO0Vu kF3fDyMbOHGoTVRm F8GwbFTxEDqrZ422JOvb VsD9AAPaccHaE6PtMCYg tKucNaK3v2C9Ce0NHIh8 GJ29AX12pLEqi4H3 bUQ4W9MzXWLwdivowxko bHI4HQErIPKyrC45Ep0r eOybXa6uCNVtKKP6PGOf nAOqK0DmwQ6fVvYo DQOcZSQmA7JxtJDtUExj P112BRstLsR3PRYerqPf H4GlUAZszCawAzW8x4H5 Yb2KQANrJF84FDD1 vWD7WF25GN33U9EoZncm dGFibGU+PHRhYmxlIHdp ZHRoPScxMDAlJyBzdHls NC3mOx2yZQVvLGAa cGspcIVeUcCjc8wzAIFp SYdlEP0ziBxdN5VuwUS1 NYKpi7i4Ep77G65tG4Mj dXA+QTFetTU2gIU5 fY6sYkTvCjX1NAhzX027 ZeEbxRVwNulyw1zga7gv wDv3MrR9NNCemvXqcJya RGY1a9AvYj86U43k IHdpZHRoPSIxNSUiIHZh fMusfy5ynR6bBu6+PGNv eHP2sTM6tY2pAgXiBvC7 PLguX988GwPtsKBv Adudp8toq9dkgRa7WgOi NRKpzfZbuBugYIF4q8Qm Sx67O7IwuQtkg8ZnDlp0 qq76hBLsm4I9pVG9 F5XsIFKgeluhaTDwiPdj TJ7yFRBmhkmkHFYuzW0u ZATyO1d8UeRdEbM1TJcv L5DyadZ2ENSdcYLf TCoaOHZ5S14yh1M1FOWr ZJBfLQY7aCG8nF4rbGqf bjogbGVmdDsgdmVydGlj ZCefYDmfK236HOMp kVrtQWGavE8tRAZygOSb aOkqUU5rZKXlvccwKqLI TExJTlMsIEFMWVNTQSBS EWTBDPa8Y0OwIel1 YFIepFvcGW6zkDFhDIfs Aj1xqWnfvVirJQ9wLSMk oshnYHMhnP6qVMRtvLEv gQfsJU2lNUHfvpjr t550FgNiVAZ4FZQidYIi J4UveA4wDdHtUDGpBTQq O4WvvDTiSFvhE782DQge XhP4EHDxbaMzI9Hs PNTkxTfvYtJ9f7K8On5m AN6aGa5pEBr3YZ31BT46 lEKjn1C4pPV2R1IzWCGe hkohurjgpBL1UZHq XZAomE08uJIqUVvwHt1l y0J9u699BNHfXHCneF12 Ej7eeSoqTCCynLWYaK3x mxvvh8rlmhgqXbQu SHRmWHw3PBu5PKVgiKvj GuGzDOI0PcK7BJK8lASa jG3vnWqoklyrqU7nOec+ MnqgOKBssyZ0X7Ju Syh9TDEkuBygTE4nkGGy NTedLw3cnSjgbPuzGH9t LABngaoySMBorX9qXJYp nEDdmXunMU7jPXGv zfnwx531NjObCFI1WQQt wFVvU7IarK2tLoRaOGCp UEMeJ1McgXAxIFfrS515 FHyzHoZ0DMJkbfDc L2JmXVZpxRlsXeM3m0R5 Lc9TVU2HHYY1S3ZtYgv0 DPGdpFgdVU0kkBPfTXmm Fs4ofLuobKxcPV1l KFKzehnnRXDkmW7lFKDk xRAwyEysPT2nMUUffery n176IlAzLVB2WUQkdMEd Z1RgrV5uYxGeGGQy KRGkB4TkfXPoGYvtL676 TDsuGiQ5LHJxiiUoX1Wc CJHaqZojTyH6p6V6Yo1V tUFcA1BfD7y7Q7Wa PjwvdHI+BA07DYHsSS41 rJSxqXLmy1rwpCi2LdSo MMBgDUT0vZdkWFivc4Mh ARYoY40kcHSys2E9 IGNvbGxhcHNlOyBlbXB0 lT6zRHqbpzsha0hpwmtn Tmjde4yfdy62eK48X00p IHdpZHRoPSIzMCUi EZSkySonap2myH2qBp7+ LFQedHE3rGD0bB6yNdQd QnR9PPtaB072QeGhwLQz Jphdh5lou9zzrHb1 IjIwJSIgdmFsaWduPSJ0 f2CvBs05Z63sAEieIIZe ABZaBIBiTKNreFrcsx1o vP1fBi5+ZH1kl6gp nw73iE64dJJ+PHRkIHN0 nWceNTapDBEqkG4sLXov WuJ3TUJkXxDfxD57vZPb EJxcLx0cfIiwmKvg KR6cXIFvxkcuj475OoXt n0dpGHDemTKgKRfdHZQ8 G70sh6C4DCAnIOGvYXL2 rXK2yZ7gdFfjbdjx bGVmdDsgdmVydGljYWwt QIibD472QUUsuCnuBcAc hENtY1bxlsAWLF8tQywh dGQ+FRUxESD8bRyz NEpzHJGibI3lFFIsS7j7 PnTaMwM6BGyoO7BnveW0 FSNwnVKoGVGmhNMGzY0t konob6rozmpnItWr LEThIDd1VEn6NPLveRqw TmSzNJX7PuR2KJM3pEQk oN1cuPcakjucyG6rGng+ RklOOjwvdGQ+PHRk PPQ9sHjlQTksOPYfgM7f MDCcV4n6ZdWoBhQ8QOty D9GnjgJ4YIMjwZOuHMPa tQGYfB4rynnew5ye zqmhLxCmQSYdEIa4MEc5 FHRtzFzcFdMnUPZ5XcP2 YKF8sJQdqU0xuScpgafa nZ2kKab+TVJOOjwv dGQ+FXBlWMD6vEgiSNhe GLRnxZ2iBHKnF7a2WvTp EsZ6YEkgN4WvjxH2IBDc qDBfVLVfiSROpL5j oocxh6evcuevNwOjDZXx YPm0ZKt0XOCabEgfYzCv IKD8NsA6XHO0lOCekT0n vBnkejeveW8rZyz+ BRZ5NZP7UA36KG11Q1Py PjwvdGFibGU+PHRhYmxl IHdpZHRoPScxMDAlJyBz jCntAL9eJc5zCLZa LWN (more content not included)... Normal [facility] C Urineon 03-11-2022 C Urine Urine Culture ordered as a result of parameters set on specific urine dip and urine microsopic results. >3 Organisms Consistent with Contamination Recollection suggested. Normal [facility] Comment on above: Performed By: #### 1 0083984, 11334966, 5245346, 9541301404, 70744503, 9765049, 1068261967, 5947819788, 9735641758, 7193049 #### [facility] (DEFAULT) [address] [place] [address] 79868 .Auto Diff 03-09-2022 Auto Jerauld % 8 % Normal 11-09 [facility] Comment on above: Performed By: #### 1 6165946, 43134597, 1799193, 4690970840, 28739848, 1706939, 4059080926, 6940724798, 3705526087, 9213914 #### [facility] (DEFAULT) [address] [place] [address] 95224 Baso Abs# 0.0 x10 Normal 0.0-0.2 [facility] Comment on above: Performed By: #### 1 0372727, 06654493, 1228449, 5690837670, 63940273, 7318360, 4725039262, 5307452171, 7150310506, 9837925 #### [facility] (DEFAULT) [address] [place] [address] 75292 Basophils/100 WBC (Bld) 0.3 % Normal 0.2-2.0 [facility] Comment on above: Performed By: #### 1 6212219, 65090068, 8374373, 5947041036, 20249934, 0675271, 1011761790, 5484492104, 1052753521, 8059364 #### [facility] (DEFAULT) [address] [place] [address] 01674 Eos Abs# 0.1 x10 Normal 0.0-0.4 [facility] Comment on above: Performed By: #### 1 7853550, 86213651, 3357321, 9425207670, 31210213, 1796957, 0538821277, 0027580488, 6364640332, 2314225 #### [facility] (DEFAULT) [address] [place] [address] 77235 Eosinophils/100 WBC (Bld) 1.0 % Normal 0.9-4.0 [facility] Comment on above: Performed By: #### 1 8640111, 26047252, 5350697, 3111285543, 07912793, 2557937, 7603989109, 6191579339, 5254982324, 1887193 #### [facility] (DEFAULT) [address] [place] [address] 95268 Lymph Abs# 2.0 x10 Normal 1.3-2.9 [facility] Comment on above: Performed By: #### 1 8078731, 45422339, 4882251, 9555924327, 78631674, 4149303, 8312791686, 7754802936, 7227955473, 5933358 #### [facility] (DEFAULT) [address] [place] [address] 49592 Lymphocytes/100 WBC (Bld) 35 % Normal 14-48 [facility] Comment on above: Performed By: #### 1 5559612, 22768548, 0483337, 5197670521, 12566336, 7713930, 5954539157, 0267066800, 8933342236, 3055227 #### [facility] (DEFAULT) [address] [place] [address] 86405 Jerauld Abs# 0.5 x10 Normal 0.0-0.8 [facility] Comment on above: Performed By: #### 1 3344587, 05261580, 9391026, 3942050171, 71311026, 7511286, 7203707505, 1699281971, 5991203873, 7764583 #### [facility] (DEFAULT) [address] [place] [address] 96414 Neut Abs# 3.2 x10 Normal 1.5-9.2 [facility] Comment on above: Performed By: #### 1 1083321, 50812787, 8683666, 6808198297, 93479346, 0717144, 1377155734, 4294326540, 0580470825, 6045423 #### [facility] (DEFAULT) [address] [place], [place] [address] Neutrophils/100 WBC (Bld) 55 % Normal 44-88 [facility] Comment on above: Performed By: #### 1 5276534, 38979387, 0093191, 1370744238, 33125779, 7893654, 8774196119, 6183680777, 0159042606, 5447800 #### [facility] (DEFAULT) [address] [place], [place] [address] ABORhon 03-09-2022 ABO and Rh group Nom (Bld) Hx Check: Not Found Anti-A: 4+ Anti-B: 0 Anti-D: 4+ DCon: 0 A1: mf+ B: 4+ ABORh Interp: A POS Invalid Interpretation Code [facility] Comment on above: Performed By: #### 1 3599884, 13100351, 0660982, 5099092040, 40544793, 7224247, 8158944367, 1432918736, 4920055367, 9852220 #### [facility] (DEFAULT) [address] [place] [address] 42219 ABORh Retypeon 03-09-2022 ABO and Rh group Nom (Bld) Ordered by Discern. Anti-A: 4+ Anti-B: 0 Anti-D: 4+ DCon: 0 A1: mf+ B: 4+ ABORh Retype: A POS Invalid Interpretation Code [facility] Comment on above: Performed By: #### 1 6027261, 94429505, 6891497, 2840117016, 76770420, 8470618, 7352879783, 9728872436, 6068427247, 0505898 ####[facility] (DEFAULT)[address] [place], [place] [address] CBC w/ Auto Diffon Erythrocyte distribution width (RBC) [Ratio] 13.3 % Normal 11.5-15.0 [facility] Comment on above: Performed By: #### 1 4263514, 43025945, 8515593, 1128260668, 67865693, 6354758, 3148149125, 9338916049, 3510851353, 4310550 #### [facility] (DEFAULT) [address] [place] [address] 36751 Hematocrit (Bld) [Volume fraction] 43.5 % High 33.7-40.4 [facility] Comment on above: Performed By: #### 1 3164109, 50488378, 3268485, 3762927931, 42370292, 2456107, 8410376940, 2276997842, 5958316630, 2168639 #### [facility] (DEFAULT) [address] [place] [address] 16336 Hemoglobin (Bld) [Mass/Vol] 14.1 g/dL Normal 11.3-15.9 [facility] Comment on above: Performed By: #### 1 0754749, 05381439, 4037314, 3073190640, 71496875, 8132132, 8107145790, 9667474342, 5578864807, 4355291 #### [facility] (DEFAULT) [address] [place] [address] 16435 Instr WBC 5.7 x10 Invalid Interpretation Code [facility] Comment on above: Performed By: #### 1 5453362, 19200700, 4649953, 2806381931, 11992531, 5098841, 6060852678, 1701275613, 4567456419, 9159301 #### [facility] (DEFAULT) [address] [place] [address] 05277 Man Diff? Auto Normal [facility] Comment on above: Performed By: #### 1 1588618, 63456041, 5121646, 2327309039, 40105672, 5970605, 2111709691, 5861126321, 0694810215, 6875385 #### [facility] (DEFAULT) [address] [place] [address] 36201 MCH (RBC) [Entitic mass] 28 pg Normal 24-34 [facility] Comment on above: Performed By: #### 1 4806858, 78861927, 9707518, 1178181209, 50286820, 2312477, 6030651242, 5124049038, 3851669570, 7400662 #### [facility] (DEFAULT) [address] [place] [address] 66855 MCHC (RBC) [Mass/Vol] 32 g/dL Normal 26-37 [facility] Comment on above: Performed By: #### 1 7770980, 60614116, 4420596, 1342907039, 74199770, 5243580, 3985012750, 1257566253, 4795931757, 6260568 #### [facility] (DEFAULT) [address] [place] [address] 89534 MCV (RBC) [Entitic vol] 86 fL Normal 81-100 [facility] Comment on above: Performed By: #### 1 2695463, 98987463, 8352672, 7829765969, 75853596, 3960459, 7105478991, 4329282735, 2384185396, 9924287 #### [facility] (DEFAULT) [address] [place] [address] 26814 Platelet 324 x10 Normal 138-427 [facility] Comment on above: Performed By: #### 1 8818688, 91435466, 9521473, 7403151025, 43332418, 9777577, 7323811298, 5504987822, 5706759122, 3574067 #### [facility] (DEFAULT) [address] [place] [address] 46531 Platelet mean volume (Bld) [Entitic vol] 9.8 fL Normal 6.3-10.2 [facility] Comment on above: Performed By: #### 1 6387974, 39798639, 6660114, 4504026308, 68100557, 6124569, 9414394147, 3492588091, 0428037830, 1316600 #### [facility] (DEFAULT) [address] [place] [address] 71759 RBC 5.07 x10 Normal 3.70-5.30 [facility] Comment on above: Performed By: #### 1 5526100, 76241247, 7798375, 7464203941, 71216082, 4851182, 3858050482, 0975155211, 9731465764, 8569159 #### [facility] (DEFAULT) [address] [place] [address] 17668 WBC 5.7 x10 Normal 3.5-10.5 [facility] Comment on above: Performed By: #### 1 1531524, 05792110, 9741694, 0313350227, 63635404, 1308564, 5590401088, 1159135868, 3070149304, 6664165 #### [facility] (DEFAULT) [address] [place] [address] 59481 CMP Standardon 03-09-2022 eGFR Non AA >60 Invalid Interpretation Code [facility] Comment on above: Performed By: #### 1 8737888, 60219940, 1960406, 3060589444, 17990425, 2351845, 3885276421, 5396249123, 5337116647, 9744965 #### [facility] (DEFAULT) [address] [place] [address] 77853 eGFR AA >60 Invalid Interpretation Code [facility] Comment on above: Result Comment: Recreational Director susie Kidney disease could be indicated at eGFRs of less than 60 ml/min/1.73m2. Kidney Failure is indicated at less than 15 ml/min/1.73m2 Performed By: #### 1 4884276, 68015031, 8351880, 7859906655, 57841370, 8533960, 8969479398, 6909695461, 5283368206, 9538944 #### [facility] (DEFAULT) [address] [place] [address] 46975 Albumin [Mass/Vol] 4.5 g/dL Normal 3.5-5.0 [facility] Comment on above: Performed By: #### 1 1392562, 34946730, 8443480, 9353698374, 51351882, 3188779, 8882019867, 8387050484, 1729020759, 4781533 #### [facility] (DEFAULT) [address] [place] [address] 40538 Albumin/Globulin [Mass ratio] 1.2 {ratio} Low 1.4-2.6 [facility] Comment on above: Performed By: #### 1 5574505, 03441931, 9322300, 1767360230, 59449427, 9618037, 6355285579, 6141126451, 4461480319, 8323047 #### [facility] (DEFAULT) [address] [place] [address] 20085 Alk Phos 52 IU/L Normal 32-91 [facility] Comment on above: Performed By: #### 1 4664322, 65120258, 1966072, 3330341909, 62892705, 4527282, 5331504912, 3547969982, 7109441909, 6787281 #### [facility] (DEFAULT) [address] [place] [address] 69609 ALT [Catalytic activity/Vol] 37.0 U/L Normal 14.0-54.0 [facility] Comment on above: Performed By: #### 1 7501121, 11325890, 7020691, 6614584717, 32094382, 9679527, 2103437491, 1140798546, 4129719022, 9127659 #### [facility] (DEFAULT) [address] [place] [address] 95736 Anion gap [Moles/Vol] 18.0 mmol/L Normal 5.0-19.0 [facility] Comment on above: Performed By: #### 1 3340782, 03304857, 6779000, 5554908026, 04290320, 7172676, 7811376564, 9276073931, 7600588601, 8833867 #### [facility] (DEFAULT) [address] [place] [address] 96682 AST [Catalytic activity/Vol] 29 U/L Normal 15-41 [facility] Comment on above: Performed By: #### 1 3246927, 05470403, 0826625, 2119173989, 97194687, 2151224, 2338478972, 7843091142, 7703809758, 7025983 #### [facility] (DEFAULT) [address] [place] [address] 83586 Bili Total 0.7 mg/dL Normal 0.3-1.2 [facility] Comment on above: Performed By: #### 1 9156477, 48641908, 6886872, 7643275653, 26532526, 8648974, 6550186083, 1806421685, 2681661819, 4618652 #### [facility] (DEFAULT) [address] [place] [address] 26610 Calcium [Mass/Vol] 9.4 mg/dL Normal 8.9-10.3 [facility] Comment on above: Performed By: #### 1 1737609, 54318305, 0612634, 4191103840, 05607258, 2831076, 8345502304, 6950101383, 8766485204, 9462243 #### [facility] (DEFAULT) [address] [place] [address] 08602 Chloride [Moles/Vol] 100 mmol/L Low 101-111 [facility] Comment on above: Performed By: #### 1 5668151, 58502094, 2831586, 1765843283, 33150840, 4513919, 7717405163, 5722481897, 5009056965, 8259245 #### [facility] (DEFAULT) [address] [place] [address] 48142 CO2 [Moles/Vol] 24 mmol/L Normal 21-32 [facility] Comment on above: Performed By: #### 1 1366585, 68009103, 2116396, 4090575505, 17716200, 3882546, 7289348981, 9578745503, 7429444135, 3527927 #### [facility] (DEFAULT) [address] [place] [address] 19200 Creatinine [Mass/Vol] 0.75 mg/dL Normal 0.60-1.30 [facility] Comment on above: Performed By: #### 1 3093625, 04434076, 3841595, 5850411741, 18872763, 8303230, 3015110698, 5244233879, 5732369702, 6702565 #### [facility] (DEFAULT) [address] [place] [address] 29661 Globulin (S) [Mass/Vol] 3.9 g/dL Normal 1.5-4.3 [facility] Comment on above: Performed By: #### 1 6607972, 09242027, 7858258, 9180482155, 08055083, 1246076, 1979257858, 7261727064, 9881698412, 1464836 #### [facility] (DEFAULT) [address] [place] [address] 59494 Glucose [Mass/Vol] 98.0 mg/dL Normal 74.0-118.0 [facility] Comment on above: Performed By: #### 1 1804446, 38091242, 8323858, 0158691683, 94787828, 1437875, [id number], [id number], [id number], [id number] #### [facility] (DEFAULT) [address] [place] [address]3701 Osmolality 274 mOsm/L Invalid Interpretation Code [facility] Comment on above: Performed By: #### 1 [id number], [id number], 5301310, [id number], 47226723, 3658463, [id number], [id number], [id number], [id number] #### [facility] (DEFAULT) [address] [place] [address]2788 Potassium [Moles/Vol] 3.5 mmol/L Low 3.6-5.1 [facility] Comment on above: Performed By: #### 1 [id number], 48525041, 8309771, [id number], 60039083, 5252677, [id number], 7563445089, [id number], [id number] #### [facility] (DEFAULT) [address] [place] [address] 76997 Protein [Mass/Vol] 8.4 g/dL High 6.5-8.1 [facility] Comment on above: Performed By: #### 1 [id number], 44489365, 7537976, [id number], 17049952, 6214915, 7794852585, 1465712342, 8772485616, 6906550 #### [facility] (DEFAULT) [address] [place] [address] 13590 Sodium [Moles/Vol] 138.0 mmol/L Normal 136.0-144.0 [facility] Comment on above: Performed By: #### 1 [id number], 05495996, 0605796, 9221018241, 44367804, 3319473, 0553497382, [id number], [id number], 8016936 #### [facility] (DEFAULT) [address] [place] [address] 17710 Urea nitrogen [Mass/Vol] 7 mg/dL Low 8-26 [facility] Comment on above: Performed By: #### 1 1493533, 40238458, 3095536, 7247635097, 39137201, 7014648, 2096869692, 7243281147, [id number], 7365385 #### [facility] (DEFAULT) [address] [place] [address] Urea nitrogen/Creatinine [Mass ratio] 9.0 mg/mg Normal 4.6-16.2 [facility] Comment on above: Performed By: #### 1 [id number], 14630461, 4788824, [id number], 51443354, 1788589, [id number], [id number], [id number], 6194040 #### [facility] (DEFAULT) [address] [place] [address]406 ED Clinical Summaryon 2021 ED Clinical Summary [facility] - Emergency Department [address] [place] [address]698 ED Clinical Summary PERSON INFORMATION Name: DIANE JOYEC Age: 26 Years Sex: FEMALE : 1995 MRN: Acct#: Visit Reason: Vaginal bleeding - < 20 wks ; BLEEDING, Arrival: 03/09/2022 15:56:59 Discharge: 03/09/2022 18:28:00 LOS: 000 02:32 Check In: 03/09/2022 15:56:59 Checkout:03/09/2022 18:28:00 Address: [address] [place] [address] PCP: Provider, None PROVIDER INFORMATION Provider Role [...] or bladder. States that she follows with road contractor in [place] Dr. Min, contacted his office and they [...] intact, SARINA: -Sclera conjunctiva: Unremarkable. NECK: -Supple ([id number]-[id number]): non-tender. CARD: -Rate and rhythm: Regular -Edema: [...] the patient recommended close follow-up with her road contractor and outpatient beta hCG. In the meantime no strenuous ac (more content not included)... Normal [facility] ED Note - Physicianon 2021 ED [...] or bladder. States that she follows with road contractor in [place] Dr. Min, contacted his office and they [...] intact, SARINA: -Sclera conjunctiva: Unremarkable. NECK: -Supple (xjfm-sq-bqdri): non-tender. CARD: -Rate and rhythm: Regular -Edema: [...] the patient recommended close follow-up with her road contractor and outpatient beta hCG. In the meantime no strenuous activity, sexual activity if having any worsening issues I recommended he return to the emergency department or going directly to road contractor. Patient indicated she understood was in agreement. [...] AA >60 (more content not included)... Normal [facility] ED Note-Nursingon 03-09-2022 Beta HCG ( test) Ql (U) Patient arrives with c/o vaginal bleeding during . States she took a at home test a week ago and estimates being 5 to 6 weeks along. Patient has some mild cramping yesterday 11/07 at has since went away and light vaginal bleeding today. This is the patients second , 1 live . Normal [facility] ED Patient Summaryon 022 ED Patient Summary [facility] - Emergency Department [address] [place] [address] PATIENT DISCHARGE INSTRUCTIONS Patient Information Name: DIANE JOYCE Age: 26 Years Date of : 1995 [facility]: [id number] Reason For Visit: Vaginal bleeding - < 20 wks ; BLEEDING, Arrival Time: 03/09/2022 15:56:59 Primary Care Physician: Provider, None Attending Physician: Adrian Rosales MD Comment: Visit Diagnosis: Diagnoses This Visit Elevated blood pressure reading (R03.0) First trimester (Z34.91) Threatened miscarriage in early (O20.0) Vaginal bleeding (N93.9) Vaginal bleeding - < 20 wks ([id number]) Prescription Information: If you have been given a prescription for narcotics, seek immediate medical attention if you have any difficulty breathing or any sudden status changes such as confusion and sleepiness. If you or anyone you know is experiencing suicidal thoughts, mental health, alcohol and/or drug addiction problems; contact the [facility] 21/05 Crisis Hotline -Lths 7LZBW kz 132684. If you received any narcotics, sedation, or [...] documents With: Address: When: Follow-up with your road contractor for reevaluation next few days. Within 1 to 2 days Comments: Follow-up with road contractor for reevaluation next few days for reevaluation and outpatient quantitative hCG. Return immediately for any worsening issues such as increasing abdominal pains, increasing vaginal bleeding, fevers, or any other problems. With: Address: When: Stephanie Padilla Within 3 to 5 days Comments: [facility] Medication Information: The exam and treatment you received today in the [facility] Emergency Department were for an urgent problem and are not intended as complete care. It is important for you to follow up with a doctor, nurse practitioner, or physician?s recruitment and outreach assistant for ongoing care. If your symptoms [...] so we can reach you if necessary. [facility] Emergency Department has provided you with a complete list of medications post discharge. Please inform your line appliance assembler/provider of your visit and for further instruction [...] The sec (more content not included)... Normal [facility] Extra Greenon 03-09-2022 Tube Collected Yes Invalid Interpretation Code [facility] Comment on above: Performed By: #### 1 [id number], [id number], 2313379, [id number], 02818191, 7357257, [id number], [id number], [id number], [id number] #### [facility] (DEFAULT) [address] [place] [address] PT/PTTon 03-09-2022 INR Coag (PPP) [Relative time] 0.95 {INR} Normal 0.91-1.11 [facility] Comment on above: Performed By: #### 1 [id number], 98920716, 5327493, 5238350151, 55405319, 8063285, 9499828138, 0643396830, [id number], 1534115 #### [facility] (DEFAULT) [address] [place] [address] PT 10.3 second(s) Normal 9.7-11.8 [facility] Comment on above: Performed By: #### 1 [id number], 22769139, 4065740, 3734034171, 97071509, 1170422, 3148875953, 9851115138, 9596938897, 4065872 #### [facility] (DEFAULT) [address] [place] [address] PTT 34 second(s) Normal 25-35 [facility] Comment on above: Performed By: #### 1 4652008, 66898466, 3067437, 4332463223, 83019983, 1687186, 4684111741, 6815823198, 6270889517, 6909245 #### [facility] (DEFAULT) [address] [place] [address] RhIG.on 03-09-2022 RhIG. No. Vials RhI RhIG Candidate?: No Date to Give: [id number] RhIG Status: RhIG Ready Normal [facility] Comment on above: Performed By: #### 1 [id number], 34967502, 5134796, 1771725254, 42239058, 6243670, 8277582541, 3249361019, 7243877106, 5004589 ####[facility] (DEFAULT)[address] [place] [address] UA Tjskz1ev 03-09-2022 UA Amorph. 1+ [facility] Comment on above: Order Comment: Urina lysis Microscopic order added on by Discern Expert Rules system. Performed By: #### 5 4414169, 8485609, [id number] ####[facility] (DEFAULT)[address] [place] [address] UA Bacteria 2+ [facility] Comment on above: Order Comment: Urina lysis Microscopic order added on by Discern Expert Rules system. Performed By: #### 5 1514310, 3626901, [id number] ####[facility] (DEFAULT)[address] [place] [address] UA Mucous 3+ [facility] Comment on above: Order Comment: Urina lysis Microscopic order added on by Discern Expert Rules system. Performed By: #### 5 4659581, 3652576, [id number] ####[facility] (DEFAULT)[address] [place] [address] UA RBC >100 [facility] Comment on above: Order Comment: Urina lysis Microscopic order added on by Discern Expert Rules system. Performed By: #### 5 9239797, 2424411, [id number] ####[facility] (DEFAULT)[address] [place] [address] UA Squam Epi Many [facility] Comment on above: Order Comment: Urina lysis Microscopic order added on by Discern Expert Rules system. Result Comment: DMITRY VERGARA RN IN ER. RUN UNINALYSIS AND CULTURE ON THIS SPECIMEN. NO RECOLLECT. Performed By: #### 5 [id number], 1370859, [id number] ####[facility] (DEFAULT)[address] [place] [address] UA WBC 3-5 [facility] Comment on above: Order Comment: Urina lysis Microscopic order added on by Discern Expert Rules system. Performed By: #### 5 8689621, 3399543, [id number] ####[facility] (DEFAULT)[address] [place], [place] [address] UA w Culture if Ind Standard on 03-09-2022 Breakpoint UA [facility] Comment on above: Performed By: #### 1 2665560, 52734760, 5796716, 7100012238, 08610846, 3227634, 9131030718, 3570706462, 2687316834, 0730691 #### [facility] (DEFAULT) [address] [place] [address] Color (U) Yellow Normal [facility] Comment on above: Performed By: #### 1 6427903, 83726089, 6510922, 5568932865, 37772099, 5479279, 6602190307, 8543754952, 8048886605, 8302457 #### [facility] (DEFAULT) [address] [place] [address] Culture? Indicated Invalid Interpretation Code [facility] Comment on above: Result Comment: Resu lt created by rule GL_MAGR_ADD_UA_CULT Result created by rule GL_MAGR_ADD_UA_CULT Result created by rule GL_MAGR_ADD_UA_CULT1 Result created by rule GL_MAGR_ADD_UA_CULT Performed By: #### 1 5443937, 61325215, 6195805, 0989267343, 23908499, 9352183, 1264397898, 9223746869, 7682976568, 3376685 #### [facility] (DEFAULT) [address] [place] [address] Glucose (U) [Mass/Vol] Negative Normal [facility] Comment on above: Performed By: #### 1 1103908, 99359506, 9926863, 2818758797, 43366583, 7647664, 8240085281, 5856563975, 6558356035, 4741204 #### [facility] (DEFAULT) [address] [place] [address] Ketones Ql (U) 40 Normal [facility] Comment on above: Performed By: #### 1 1048480, 59025572, 8650077, 1940807745, 84263643, 8403212, 0909902810, 1320573023, 2105735682, 6913420 #### [facility] (DEFAULT) [address] [place] [address] Micro? Indicated Invalid Interpretation Code [facility] Comment on above: Result Comment: Resu lt created by rule GL_MAGR_ADD_UA_MICRO Performed By: #### 1 5502663, 03432244, 0076872, 7083389858, 62103670, 3837181, 0212668127, 7415103843, 0648551120, 1357396 #### [facility] (DEFAULT) [address] [place] [address] UA Bilirubin Negative Normal [facility] Comment on above: Performed By: #### 1 7560448, 64366701, 1044443, 8715227841, 51760232, 5350996, 9079834250, 6205469818, 6127185684, 9591533 #### [facility] (DEFAULT) [address] [place] [address] UA Blood LARGE Abnormal NEGATIVE [facility] Comment on above: Performed By: #### 1 5766321, 57118555, 7004261, 0826395888, 44972329, 1364577, 4645803339, 2658935804, 7956128180, 9913550 #### [facility] (DEFAULT) [address] [place] [address] UA Clarity SL CLOUDY Abnormal CLEAR [facility] Comment on above: Performed By: #### 1 6886966, 11803997, 1670876, 2807099033, 24632786, 5813681, 4295699180, 1893585149, 3675736142, 4826285 #### [facility] (DEFAULT) [address] [place] [address] UA Leuk Est TRACE Abnormal NEGATIVE [facility] Comment on above: Performed By: #### 1 2619057, 32134325, 5071951, 4099753216, 12280600, 9072647, 2088363800, 8363355435, 2585703529, 6210385 #### [facility] (DEFAULT) [address] [place] [address] UA Nitrite Negative Normal NEGATIVE [facility] Comment on above: Performed By: #### 1 5417424, 40170450, 2388230, 6106205747, 35063523, 4345494, 7372203438, 5371221480, 7357953008, 8574868 #### [facility] (DEFAULT) [address] [place] [address] UA pH 6.5 Normal 5-8 [facility] Comment on above: Performed By: #### 1 1325941, 27391443, 1566193, 6612983474, 95783709, 9908470, 3527018750, 9241761448, 4268010466, 5463503 #### [facility] (DEFAULT) [address] [place] [address] UA Protein Negative Normal NEGATIVE [facility] Comment on above: Performed By: #### 1 5705841, 16945399, 0555045, 5320697128, 53278805, 1877918, 1291776147, 7992704938, 0451286522, 8298477 #### [facility] (DEFAULT) [address] [place] [address] UA Spec Grav 1.015 Normal 1.001-1.035 [facility] Comment on above: Performed By: #### 1 0486793, 69370050, 0790220, 2870194320, 14198189, 3364711, 5222617157, 4452140931, 9075720589, 0119872 #### [facility] (DEFAULT) [address] [place] [address] UA Urobilinogen 0.2 mg/dL Normal 0.2-1.0 [facility] Comment on above: Performed By: #### 1 7480315, 00742328, 0451003, 2453495532, 17163315, 7874941, 0628175748, 5695830578, 4454279076, 5032227 #### [facility] (DEFAULT) [address] [place] [address] Urine Source Clean Catch [facility] Comment on above: Performed By: #### 1 0401782, 47392137, 7697185, 6146827864, 13585823, 9403299, 6744383136, 8224690266, 9816643112, 1471376 #### [facility] (DEFAULT) [address] [place] [address] US 1st Trimesteron 03-09-2022 US 1st Trimester [...] Signature): Sebastian Guzman 03/09/22 6:10 pm Technologist: [facility] US Transvaginalon 03-09-2022 US Transvaginal EXAM: [...] Guzman 03/09/22 6:10 pm Technologist: PM Normal [facility] hCG Quantitativeon 2 hCG Quantitative 7.1 mIU/mL High 0.0-0.6 [facility] Comment on above: Result Comment: Post -Menopausal Reference Range is: 0.1-11.6 mIU/mL Performed By: #### 1 1384471, 30436135, 2447724, 7992499494, 70815787, 0236744, 8331839064, 2690360841, 8055633846, 2761058 #### [facility] (DEFAULT) [address] [place] [address] Vital Signs Date Time Vital Sign Value Performing Clinician Facility 12-13-2023 15:00-0500 Body mass index (BMI) [Ratio] 46.69 kg/m2 [facility] Nurse [facility] 12-13-2023 15:00-0500 Body weight 123.38 kg [facility] Nurse [facility] 12-13-2023 15:00-0500 Diastolic blood pressure 78 mm[Hg] [facility] Nurse [facility] 12-13-2023 15:00-0500 Systolic blood pressure 128 mm[Hg] [facility] 05-15-2023 18:30-0400 Body height 161.29 cm Linsey Witt Other [facility] 05-15-2023 18:30-0400 Body mass index (BMI) [Ratio] 43.41 kg/m2 Linsey Witt Other [facility] 05-15-2023 18:30-0400 Body temperature 99.2 [degF] Linsey Witt Other [facility] 05-15-2023 18:30-0400 Body weight 112.95 kg Linsey Witt Other [facility] 05-15-2023 18:30-0400 Respiratory rate 18 /min Linsey Witt Other [facility] 05-15-2023 18:30-0400 SaO2% (BldA) [Mass fraction] 99 % Linsey Witt Other [facility] 05-09-2023 11:00-0400 Body height 161.29 cm Gissel Santana Other [facility] 05-09-2023 11:00-0400 Body mass index (BMI) [Ratio] 43.59 kg/m2 Gissel Santana Other [facility] 05-09-2023 11:00-0400 Body weight 113.4 kg Gissel Santana Other [facility] 05-09-2023 11:00-0400 Diastolic blood pressure 83 mm[Hg] Gissel Santana Other [facility] 05-09-2023 11:00-0400 Systolic blood pressure 119 mm[Hg] Gissel Santana Other [facility] 04-12-2023 09:00-0400 Body height 161.29 cm Gissel Lamin Other [facility] 04-12-2023 09:00-0400 Body mass index (BMI) [Ratio] 43.59 kg/m2 Gissel Santana Other [facility] 04-12-2023 09:00-0400 Body weight 113.4 kg Gissel Santana Other [facility] 04-12-2023 09:00-0400 Diastolic blood pressure 88 mm[Hg] Gissel Santana Other [facility] Other 04-12-2023 09:00-0400 Systolic blood pressure 129 mm[Hg] Gissel Santana Other [facility] Other 10-11-2022 02:06-0500 Body weight 111.[address] ESTELLA MIN . [facility] Comment on above: Performed By: #### AFPMAT #### [facility] [address] [place] [address] Dr. 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 Work Phone: [facility] [place] Work Phone: Start: 05-15-2023 End: 05-15-2023 ambulatory TERESA Witt Work Phone: [facility] Work Phone: Start: 05-15-2023 Office outpatient vi sit 25 minutes Linsey Witt [facility] Start: 05-09-2023 End: 05-09-2023 ambulatory Gissel Santana Other [facility] Other Start: 05-09-2023 Office outpatient vi sit 15 minutes Gissel Santaan [facility] Start: 04-12-2023 End: 04-12-2023 ambulatory Gissel Santana Other [facility] Other Start: 04-12-2023 Encounter for genera l adult medical examination without abnormal findings Gissel Santana [facility] Start: 04-12-2023 Periodic preventive med est patient 18-39 yrs Gissel Santana [facility] Start: 02-15-[address] ESTELLA MIN [...] EDT Routine [facility] [address] [place] [id number] Estella Min, DO [address] [place] [address] [facility] Start: 12-13-2023 End: 12-13-2024 [...] Missed menses Expected: 12/13/2023 (Approximate), Expires: 12/13/2024 [facility] Comment on above: Expected: 12/13/2023 (Approximate), Expires: 12/13/2024 Start: 12-13-2023 End: 12-13-2024 US Pelvis transvaginal US OB transvaginal Imaging Routine Missed menses Expected: 12/13/2023 (Approximate), Expires: 12/13/2024 [facility] Comment on above: Expected: 12/13/2023 (Approximate), Expires: 12/13/2024 Start: 05-15-2023 Throat culture Throat Culture [facility] Bacteria identified in Urine by Culture Urine culture Microbiology Routine Missed menses Ordered: 12/13/2023 [facility] Comment on above: Ordered: 12/13/2023 CBC W Auto Different ial panel - Blood CBC and differential Lab Routine Missed menses Ordered: 12/13/2023 [facility] Comment on above: Ordered: 12/13/2023 Hemoglobin A1c/Hemoglobin.total in Blood Hemoglobin A1c Lab Routine Missed menses Ordered: 12/13/2023 [facility] Comment on above: Ordered: 12/13/2023 Hepatitis B virus surface Ag [Presence] in Serum or Plasma by Immunoassay Hepatitis B surface antigen Lab Routine Missed menses Ordered: 12/13/2023 [facility] Comment on above: Ordered: 12/13/2023 Hepatitis C virus Ab [Presence] in Serum or Plasma by Immunoassay Hepatitis C antibody Lab Routine Missed menses Ordered: 12/13/2023 [facility] Comment on above: Ordered: 12/13/2023 HIV-1/HIV-2 antigen/antibody combination immunoassay HIV-1 and HIV-2 antibodies Lab Routine Missed menses Ordered: 12/13/2023 [facility] Comment on above: Ordered: 12/13/2023 Reagin Ab [Presence] in Serum by RPR RPR Lab Routine Missed menses Ordered: 12/13/2023 [facility] Comment on above: Ordered: 12/13/2023 Rubella antibody, IgG Rubella an tibody, IgG Lab Routine Missed menses Ordered: 12/13/2023 [facility] Comment on above: Ordered: 12/13/2023 Payers Date Payer Category Payer Unknown BCBS BCBS [id number] 2020-Present [phone] [address] [place] [address] [id number]. [id number] 1994 Unknown [id number] 2.16.840.1.887316.3.579.2.593 1994 Unknown [id number] 2.16.840.1.403416.3.579.2.593 1994 Unknown [id number] 2.16.840.1.013126.3.579.2.593 1994 Unknown [id number] 2.16.840.1.755513.3.579.2.593 1994 Unknown [id number] 2.16.840.1.174640.3.579.2.593 1994 Unknown [id number] 2.16.840.1.471777.3.579.2.593 1994 Unknown [id number] 2.16.840.1.642541.3.579.2.593 1994 Unknown [id number] 2.16.840.1.822901.3.579.2.593 1994 Unknown [id number] 2.16.840.1.116680.3.579.2.593 1994 Unknown [id number] 2.16.840.1.683601.3.579.2.593 1994 Unknown [id number] 2.16.840.1.545200.3.579.2.593 1994 Unknown [id number] 2.16.840.1.826696.3.579.2.593 1994 Unknown [id number] 2.16.840.1.745744.3.579.2.593 1994 Unknown [id number] 2.16.840.1.522472.3.579.2.593 1994 Unknown [id number] 2.16.840.1.184285.3.579.2.593 1994 Unknown [id number] 2.16.840.1.835318.3.579.2.593 1994 Unknown [id number] 2.16.840.1.365661.3.579.2.593 1994 Unknown [id number] 2.16.840.1.902455.3.579.2.593 1994 Unknown [id number] 2.16.840.1.307542.3.579.2.593 1994 Unknown [id number] 2.16.840.1.268779.3.579.2.593 1994 Unknown [id number] 2.16.840.1.153581.3.579.2.593 1994 Unknown [id number] 2.16.840.1.990099.3.579.2.593 1994 Unknown [id number] 2.16.840.1.379143.3.579.2.593 1994 Unknown [id number] 2.16.840.1.115640.3.579.2.593 1994 Unknown [id number] 2.16.840.1.169806.3.579.2.1259 1994 Unknown [id number] 2.16.840.1.191862.3.579.2.1259 1994 Unknown [id number] 2.16.840.1.774217.3.579.2.1259 1994 Unknown [id number] 2.16.840.1.417696.3.579.2.1259 1994 Unknown [id number] 2.16.840.1.838302.3.579.2.1259 1994 Unknown [id number] 2.16.840.1.925526.3.579.2.1259 1994 Unknown [id number] 2.16.840.1.428872.3.579.2.1259 1994 Unknown [id number] 2.16.840.1.426006.3.579.2.1259 1994 Unknown [id number] 2.16.840.1.904491.3.579.2.1259 1959 Self-pay 1959 Unknown [id number] Unknown [id number] 2.16.840.1.497704.3.579.2.593 Unknown [id number] 2.16.840.1.943974.3.579.2.531 Social History Date Type Detail Facility Unknown if ever smoked [facility] [employer] Other Start: 03-12-2023 Sex Assigned At [facility] [employer] Other Start: 1995 Sex Assigned At Female F [facility] Start: 03-12-2023 Tobacco smoking status MNIS Never smoked tobacco [facility] Start: 03-12-2023 [...] or undercooked meat, and stay away from [facility] Patient has also been advised to not [...] Meenakshi Rosenthal MA documented in this encounter [facility] 05-15-2023 Evaluation note Encounter Date [...] understanding and is agreeable to treatment plan. [facility] Other 07-12-2023 Evaluation note* Encounter Date Diagnosis Assessment Notes Treatment Notes Treatment Clinical Notes Apr, Anxiety disorder, unspecified (ICD-10 - F41.9) Pt states that she, and her , agree that she is doing better on the medication. Continues to have stress, but is dealing more appropriately. Would like to continue this med and this dose. f/u6 months, sooner if needed. [facility] Other 06-15-2023 Evaluation note* Encounter Date Diagnosis [...] help for overwhelm. followup in 1 month [facility] Other 05-12-2022 NoteEducation Materials Cardiovascular Hypertension, Adult [...] beans, e (more content not included)...[facility] noteNo assessment information available[facility] Work Phone: Evaluation noteNo [facility] [employer] Other Evaluation note* Diagnosis Missed menses documented in this encounter [facility] N[facility]ative - Reported* Type Description Date Surgical History C-sect 2019 Surgical History C-sect 2022 [facility] Other History general Narrative - Reported* Type Description Date Medical History Anxiety disorder, unspecified Surgical History C-sect 2019 Surgical History C-sect 2022 Hospitalization History SEE SURGICAL [facility] Other History general Narrative - Reported* Type Description Date Medical History Anxiety disorder, unspecified Medical History Gestational diabetes Surgical History C-sect 2019 Surgical History C-sect 2022 Hospitalization History SEE SURGICAL [facility] Other Summary Purpose Family History No Family History Records FoundNo Family History Records FoundNo Family History Records FoundNo Family History Records Found Advance Directives No Advanced Directives Records FoundNo Advanced Directives Records FoundNo Advanced Directives Records FoundNo Advanced Directives Records Found Additional Source Comments INFORMATION SOURCE (unrecogn ized section and content) DATE CREATED AUTHOR 03/18/2022 [facility] DATE CREATED AUTHOR AUTHOR'S ORGANIZ ATION 02/15/2023 [facility] DATE CREATED AUTHOR AUTHOR'S ORGANIZ ATION 05/24/2023 [facility] DATE CREATED AUTHOR AUTHOR'S ORGANIZ ATION 06/21/2024 [facility] EPIC REASON FOR VISIT (unrecogniz ed section and content) Reason Comments Amenorrhea Care Teams (unrecognized sec tion and content) Team Status: Inactive Member Role Status Dates Linsey Witt APRN Attending Provider Active Design Sales Consultant Relationship Specialty Start Date End Date Gissel Santana MD [address] [place] [address] PCP - General Family Medicine [...] BE BASED ON THE PRIMARY CLINICAL RECORDS. [employer] [facility]. provides no warranty or guarantee of the accuracy or completeness of information in this document.
--- OUTSIDE RECORDS SUMMARY | 2024-06-27 13:24 | XMS_ITS | CCD ---
Author Organization [facility] Care Team Providers Care Flow Worker Name Role Phone MECHELLE ., DR [...] Unavailable MECHELLE ., DR SORIA Consulting Unavailable EMCHELLE ., DR SORIA Admitting Unavailable MECHELLE ., [...] Unavailable MECHELLE ., DR SORIA Admitting Unavailable Hayward, Sebastian Consulting Unavailable SANTANA, DR GISSEL Teresa [...] Interpretation and review of laboratory results Abnormal [facility] Preg Test, Ur Positive [facility] Urinalysis macro (dipstick) panel (U)on 12-13-2023 Bilirubin, UA Negative Negative - 4(70) +++ mg/dL [facility] Blood, UA Negative Negative - 50 Sal/mcL [facility] Clarity, UA Clear [facility] re Color, UA Yellow [facility] Glucose, UA Negative Negative - 1999(110) ++++ mg/dL [facility] Interpretation and review of laboratory results Abnormal [facility] re Ketones, UA Positive Negative - 160(16) ++++ mg/dL [facility] Leukocytes, UA Negative Negative - 500+++ Lizzy/mcL [facility] Nitrite, UA Negative Negative - Positive [facility] pH, UA 7.0 5 - 9 [facility] Protein, UA Positive Negative - 1999(20) ++++ mg/dL [facility] Spec Grav, UA 1.030 1 - 1.03 [facility] Urobilinogen, UA 0.2 0.2 - 12 mg/dL [facility] Quick Strepon 05-15-2023 S. pyogenes Org specific cx Ql (Throat) Negative [facility] Other Quick Strep [facility] Other Throat Cultureon 05-15-2023 Throat culture Heavy Normal Respiratory John 2 Days PERFORMED BY: [facility] [address] [address] PATHOLOGIST COMMANDING OFFICER HOMICIDE SQUAD ARACELI HAYWOOD M.D. Normal [facility] Comment on above: Performed By: #### C UT #### [facility] [address] GROUP B STREP CULTUREon 01-27 S. [...] above: Performed By: #### A FPMAT #### [facility] [address] [place] [address] Dr. Alexsander Dickinson CBC AUTO DIFFon 02-02-2023 BASO # 0.0 103/ul Normal 0.0-0.1 [facility] Comment on above: Performed By: #### C BC #### [facility] [address] [place] [address] Dr. Alexsander Dickinson Basophils/100 WBC (Bld) 0.2 % Normal 0.2-2.0 [facility] Comment on above: Performed By: #### C BC #### [facility] [address] [place] [address] Dr. Alexsander Dickinson EO # 0.0 103/ul Normal 0.0-0.7 [facility] Comment on above: Performed By: #### C BC #### [facility] [address] [place] [address] Dr. Alexsander Dickinson Eosinophils/100 WBC (Bld) 0.0 % Critically low 0.9-7.0 [facility] Comment on above: Performed By: #### C BC #### [facility] [address] [place] [address] Dr. Alexsander Dickinson Erythrocyte distribution width (RBC) [Ratio] 12.5 % Normal 11.0-15.0 [facility] Comment on above: Performed By: #### C BC #### [facility] [address] [address] [address] Alexsander Dickinson Hematocrit (Bld) [Volume fraction] 32.9 % Critically low 36.0-48.0 [facility] Comment on above: Performed By: #### C BC #### [facility] [address] [address] [address] Alexsander Dickinson Hemoglobin (Bld) [Mass/Vol] 10.7 g/dL Critically low 12.0-16.0 [facility] Comment on above: Performed By: #### C BC #### [facility] [address] [place] [address] Dr. Alexsander Dickinson IG # 0.12 10e3/ul Critically high 0.00-0.03 [place] Comment on above: Performed By: #### C BC #### [facility] [address] [place] [address] Dr. Alexsander Dickinson IG % 0.7 % Critically high 0.0-0.5 [facility] Comment on above: Performed By: #### C BC #### [facility] [address] [place] [address] Dr. Alexsander Dickinson LYMPH # 1.1 103/ul Critically low 1.2-3.8 [facility] Comment on above: Performed By: #### C BC #### [facility] [address] [place] [address] Dr. Alexsander Dickinson Lymphocytes/100 WBC (Bld) 6.4 % Critically low 20.5-60.0 [facility] Comment on above: Performed By: #### C BC #### [facility] [address] [address] [address] Alexsander Dickinson MANUAL DIFF REQ NO Normal [facility] Comment on above: Performed By: #### C BC #### [facility] [address] [place] [address] Dr. Alexsander Dickinson MCH (RBC) [Entitic mass] 26.1 pg Critically low 26.7-34.0 [facility] Comment on above: Performed By: #### C BC #### [facility] [address] [address] [address] Alexsander Dickinson MCHC (RBC) [Mass/Vol] 32.5 g/dL Normal 29.9-35.2 [facility] Comment on above: Performed By: #### C BC #### [facility] [address] [address] [address] Alesxander Dickinson MCV (RBC) [Entitic vol] 80.2 fL Critically low 81.0-99.0 [facility] Comment on above: Performed By: #### C BC #### [facility] [address] [address] [address] Alexsander Dickinson MONO # 0.4 103/ul Normal 0.3-0.8 [facility] Comment on above: Performed By: #### C BC #### [facility] [address] [address] [address] Alexsander Dickinson Monocytes/100 WBC (Bld) 2.1 % Normal 1.7-12.0 [facility] Comment on above: Performed By: #### C BC #### [facility] [address] [address] [address] Alexsander Dickinson NEUT # 15.5 103/ul Critically high 1.4-6.5 [facility] Comment on above: Performed By: #### C BC #### [facility] [address] [address] [address] Alexsander Dickinson Neutrophils/100 WBC (Bld) 90.6 % Critically high 43.0-75.0 [facility] Comment on above: Performed By: #### C BC #### [facility] [address] [address] [address] Alexsander Dickinson Platelet mean volume (Bld) [Entitic vol] 10.7 fL Normal 9.5-13.5 [facility] Comment on above: Performed By: #### C BC #### [facility] [address] [address] [address] Alexsander Dickinson PLT 310 103/ul Normal 150-450 [facility] Comment on above: Performed By: #### C BC #### [facility] [address] [address] [address] Alexsander Dickinson RBC 4.10 106/ul Critically low 4.20-5.40 [facility] Comment on above: Performed By: #### C BC #### [facility] [address] [place] [address] Dr. Alexsander Dickinson WBC 17.1 103/ul Critically high 4.0-11.0 [facility] Comment on above: Performed By: #### C BC #### [facility] [address] [place] [address] Dr. Alexsander Dickinson CBC AUTO DIFFon 02-01-2023 BASO # 0.0 103/ul Normal 0.0-0.1 [facility] Comment on above: Performed By: #### A 1C #### [facility] [address] [place] [address] Dr. Alexsander Dickinson Basophils/100 WBC (Bld) 0.2 % Normal 0.2-2.0 [facility] Comment on above: Performed By: #### A 1C #### [facility] [address] [place] [address] Dr. Alexsander Dickinson EO # 0.0 103/ul Normal 0.0-0.7 [facility] Comment on above: Performed By: #### A 1C #### [facility] [address] [place] [address] Dr. Alexsander Dickinson Eosinophils/100 WBC (Bld) 0.4 % Critically low 0.9-7.0 [facility] Comment on above: Performed By: #### A 1C #### [facility] [address] [place] [address] Dr. Alexsander Dickinson Erythrocyte distribution width (RBC) [Ratio] 12.9 % Normal 11.0-15.0 [facility] Comment on above: Performed By: #### A 1C #### [facility] [address] [place] [address] Dr. Alexsander Dickinson Hematocrit (Bld) [Volume fraction] 34.2 % Critically low 36.0-48.0 [facility] Comment on above: Performed By: #### A 1C #### [facility] [address] [address] [address] Alxesander Dickinson Hemoglobin (Bld) [Mass/Vol] 11.4 g/dL Critically low 12.0-16.0 [facility] Comment on above: Performed By: #### A 1C #### [facility] [address] [address] [address] Alexsander Dickinson IG # 0.04 10e3/ul Critically high 0.00-0.03 [place] Comment on above: Performed By: #### A 1C #### [facility] [address] [address] [address] Alexsander Dickinson IG % 0.5 % Normal 0.0-0.5 [facility] Comment on above: Performed By: #### A 1C #### [facility] [address] [address] [address] Alexsander Dickinson LYMPH # 2.1 103/ul Normal 1.2-3.8 [facility] Comment on above: Performed By: #### A 1C #### [facility] [address] [place] [address] Dr. Alexsander Dickinson Lymphocytes/100 WBC (Bld) 23.9 % Normal 20.5-60.0 [facility] Comment on above: Performed By: #### A 1C #### [facility] [address] [place] [address] Dr. Alexsander Dickinson MANUAL DIFF REQ NO Normal [facility] Comment on above: Performed By: #### A 1C #### [facility] [address] [address] [address] Alexsander Dickinson MCH (RBC) [Entitic mass] 27.0 pg Normal 26.7-34.0 [facility] Comment on above: Performed By: #### A 1C #### [facility] [address] [place] [address] Dr. Alexsander Dickinson MCHC (RBC) [Mass/Vol] 33.3 g/dL Normal 29.9-35.2 [facility] Comment on above: Performed By: #### A 1C #### [facility] [address] [address] [address] Alexsander Dickinson MCV (RBC) [Entitic vol] 81.0 fL Normal 81.0-99.0 [facility] Comment on above: Performed By: #### A 1C #### [facility] [address] [address] [address] Alexsander Dickinson MONO # 0.5 103/ul Normal 0.3-0.8 [facility] Comment on above: Performed By: #### A 1C #### [facility] [address] [place] [address] Dr. Alexsander Dickinson Monocytes/100 WBC (Bld) 6.0 % Normal 1.7-12.0 [facility] Comment on above: Performed By: #### A 1C #### [facility] [address] [place] [address] Dr. Alexsander Dickinson NEUT # 5.9 103/ul Normal 1.4-6.5 [facility] Comment on above: Performed By: #### A 1C #### [facility] [address] [place] [address] Dr. Alexsander Dickinson Neutrophils/100 WBC (Bld) 69.0 % Normal 43.0-75.0 [facility] Comment on above: Performed By: #### A 1C #### [facility] [address] [place] [address] Dr. Alexsander Dickinson Platelet mean volume (Bld) [Entitic vol] 10.5 fL Normal 9.5-13.5 [facility] Comment on above: Performed By: #### A 1C #### [facility] [address] [place] [address] Dr. Alexsander Dickinson PLT 275 103/ul Normal 150-450 [facility] Comment on above: Performed By: #### A 1C #### [facility] [address] [place] [address] Dr. Alexsander Dickinson RBC 4.22 106/ul Normal 4.20-5.40 [facility] Comment on above: Performed By: #### A 1C #### [facility] [address] [address] [address] Alexsander Dickinson WBC 8.6 103/ul Normal 4.0-11.0 [facility] Comment on above: Performed By: #### A 1C #### [facility] [address] [place] [address] Dr. Alexsander Dickinson LDHon 02-01-2023 LDH 124 U/L Normal 81-234 [facility] Comment on above: Performed By: #### C MP, LDH, URIC #### [facility] [address] [place] [address] Dr. Alexsander Dickinson POINT OF CARE GLUCOSEon Glucose [Mass/Vol] 98 mg/dL Normal 74-106 [facility] Comment on above: Performed By: #### A 1C #### [facility] [address] [place] [address] Dr. Alexsander Dickinson PROF 14(COMP METB)on 023 Albumin [Mass/Vol] 2.5 g/dL Critically low 3.4-5.0 [facility] Comment on above: Performed By: #### C MP, LDH, URIC #### [facility] [address] [place] [address] Dr. Alexsander Dickinson Albumin/Globulin [Mass ratio] 0.6 {ratio} Normal [facility] Comment on above: Performed By: #### C MP, LDH, URIC #### [facility] [address] [place] [address] Dr. Alexsander Dickinson ALP [Catalytic activity/Vol] 138 U/L Critically high 46-116 [facility] Comment on above: Performed By: #### C MP, LDH, URIC #### [facility] [address] [place] [address] Dr. Alexsander Dickinson ALT [Catalytic activity/Vol] 15 U/L Normal 14-59 [facility] Comment on above: Performed By: #### C MP, LDH, URIC #### [facility] [address] [place] [address] Dr. Alexsander Dickinson Anion gap [Moles/Vol] 14.5 mmol/L Normal [facility] Comment on above: Performed By: #### C MP, LDH, URIC #### [facility] [address] [address] [address] Alexsander Dickinson AST [Catalytic activity/Vol] 8 U/L Critically low 15-37 [facility] Comment on above: Performed By: #### C MP, LDH, URIC #### [facility] [address] [place] [address] Dr. Alexsander Dickinson Bilirubin [Mass/Vol] 0.2 mg/dL Normal 0.2-1.0 [facility] Comment on above: Performed By: #### C MP, LDH, URIC #### [facility] [address] [place] [address] Dr. Alexsander Dickinson Calcium [Mass/Vol] 8.6 mg/dL Normal 8.5-10.1 [facility] Comment on above: Performed By: #### C MP, LDH, URIC #### [facility] [address] [place] [address] Dr. Alexsander Dickinson Chloride [Moles/Vol] 103 mmol/L Normal 98-107 [facility] Comment on above: Performed By: #### C MP, LDH, URIC #### [facility] [address] [place] [address] Dr. Alexsander Dickinson CO2 [Moles/Vol] 23.7 mmol/L Normal 21.0-32.0 [facility] Comment on above: Performed By: #### C MP, LDH, URIC #### [facility] [address] [place] [address] Dr. Alexsander Dickinson Creatinine [Mass/Vol] 0.61 mg/dL Normal 0.55-1.02 [facility] Comment on above: Performed By: #### C MP, LDH, URIC #### [facility] [address] [place] [address] Dr. Alexsander Dickinson EGFR-AF JORDANIAN >60 Normal >=60 [facility] Comment on above: Performed By: #### C MP, LDH, URIC #### [facility] [address] [place] [address] Dr. Alexsander Dickinson EGFR-NON AF JORDANIAN >60 Normal >=60 [facility] Comment on above: Performed By: #### C MP, LDH, URIC #### [facility] [address] [address] [address] Alexsander Dickinson Globulin (S) [Mass/Vol] 4.1 g/dL Normal [facility] Comment on above: Performed By: #### C MP, LDH, URIC #### [facility] [address] [address] [address] Alexsander Dickinson Glucose [Mass/Vol] 123 mg/dL Critically high 74-106 [facility] Comment on above: Performed By: #### C MP, LDH, URIC #### [facility] [address] [address] [address] Alexsander Dickinson Potassium [Moles/Vol] 4.2 mmol/L Normal 3.5-5.1 [facility] Comment on above: Performed By: #### C MP, LDH, URIC #### [facility] [address] [place] [address] Dr. Alexsander Dickinson Protein [Mass/Vol] 6.6 g/dL Normal 6.4-8.2 [facility] Comment on above: Performed By: #### C MP, LDH, URIC #### [facility] [address] [place] [address] Dr. Alexsander Dickinson Sodium [Moles/Vol] 137 mmol/L Normal 136-145 [facility] Comment on above: Performed By: #### C MP, LDH, URIC #### [facility] [address] [place] [address] Dr. Alexsander Dickinson Urea nitrogen [Mass/Vol] 5.0 mg/dL Critically low 7.0-18.0 [facility] Comment on above: Performed By: #### C MP, LDH, URIC #### [facility] [address] [place] [address] Dr. Alexsander Dickinson Urea nitrogen/Creatinine [Mass ratio] 8.2 mg/mg Normal [facility] Comment on above: Performed By: #### C MP, LDH, URIC #### [facility] [address] [place] [address] Dr. Alexsander Dickinson PROTIMEon 02-01-2023 INR Coag (PPP) [Relative time] {INR} Normal [facility] Comment on above: Performed By: #### H BSANS #### [facility] [address] [place] [address] Dr. Alexsander Dickinson INR GUIDELINES SEE BELOW Normal [facility] Comment on above: Result Comment: CAROLEE RED INR: 2.0 - 3.0 CONDITIONS NOT LISTED BELOW 2.5 - 3.5 FOR PROSTHETIC HEART VALVE REPLACEMENT 2.5 - 3.5 RECURRENT THROMBOSIS Performed By: #### H BSANS #### [facility] [address] [place] [address] Dr. Alexsander Dickinson PT Coag (PPP) [Time] 9.2 s Normal 9.0-11.6 [facility] Comment on above: Performed By: #### H BSANS #### [facility] [address] [place] [address] Dr. Alexsander Dickinson PTTon 02-01-2023 aPTT Coag (Bld) [Time] 25.9 s Normal 22.3-36.2 [facility] Comment on above: Performed By: #### H BSANS #### [facility] [address] [place] [address] Dr. Alexsander Dickinson TYPE AND SCREENon 02-01-2023 TYPE AND SCREEN Negative Normal [facility] Comment on above: Performed By: #### A FPMAT #### [facility] [address] [place] [address] Dr. Alexsander Dickinson URIC ACID SERUMon 02-01-2023 Urate [Mass/Vol] 5.5 mg/dL Normal 2.6-6.0 [facility] Comment on above: Performed By: #### C MP, LDH, URIC #### [facility] [address] [place] [address] Dr. Alexsander Dickinson US PREG BIOPHY W [...] by: SEBASTIAN HENRY Date: 2023-01-25 15:18 Normal [facility] PREG BIOPHY W NON STRESSo n [...] DEE GALLEGOS Date: 2023-01-11 15:38 Normal [facility] US PREG GROWTHon 01-11-2023 US PREG GROWTH [...] DEE GALLEGOS Date: 2023-01-11 16:42 Normal [facility] GTT 3 HR PREGon 12-01-2022 Glucose [Mass/Vol] 104 mg/dL Normal 74-106 [facility] Comment on above: Performed By: #### A 1C #### [facility] [address] [address] [address] Alexsander Dickinson Glucose [Mass/Vol] 182 mg/dL Normal [facility] Comment on above: Performed By: #### A 1C #### [facility] [address] [address] [address] Alexsander Dickinson Glucose [Mass/Vol] 114 mg/dL Normal [facility] Comment on above: Performed By: #### A 1C #### [facility] [address] [address] [address] Alexsander Dickinson Glucose [Mass/Vol] 73 mg/dL Normal [facility] Comment on above: Performed By: #### A 1C #### [facility] [address] [address] [address] Alexsander Dickinson PAP ACOG PANEL 2: 20 to 28on 11-18-2022 . . Normal [facility] Comment on above: Performed By: #### A 1C #### [facility] [address] [address] [address] Alexsander Dickinson Age Gdln ACOG Testing - [facility] Comment on above: Performed By: #### A 1C #### [facility] [address] [address] [address] Alexsander Dickinson DIAGNOSIS: Comment [facility] Comment on above: Result Comment: NEGA TIVE FOR INTRAEPITHELIAL LESION OR MALIGNANCY. Performed By: #### A 1C #### [facility] [address] [place] [address] Dr. Alexsander Dickinson Methodology: Comment [facility] Comment on above: Result Comment: This liquid based ThinPrep(R) pap test was screened with the use of an image guided system. Performed By: #### A 1C #### [facility] [address] [place] [address] Dr. Alexsander Dickinson Note: Comment [facility] Comment on above: Result Comment: The Pap smear is a screening test designed to aid in the detection of premalignant and malignant conditions of the uterine cervix. It is not a diagnostic procedure and should not be used as the sole means of detecting cervical cancer. Both false-positive and false-negative reports do occur. . Performed By: #### A 1C #### [facility] [address] [address] [address] Alexsander Dickinson Performed by: Comment Normal [facility] Comment on above: Result Comment: Cici Clarke, High School Physical Education Teacher (ASCP) Performed By: #### A 1C #### [facility] [address] [place] [address] Dr. Alexsander Dickinson Reflex Criteria: Comment [facility] Comment on above: Result Comment: The HPV DNA reflex criteria were not met with this specimen result therefore, no HPV testing was performed. . Performed By: #### A 1C #### [facility] [address] [place] [address] Dr. Alexsander Dickinson Specimen adequacy: Comment Normal [facility] Comment on above: Result Comment: Sati sfactory for evaluation. No endocervical component is identified. Performed By: #### A 1C #### [facility] [address] [place] [address] Dr. Alexsander Dickinson CHLAMYDIA/GONOCOCCUS ZUNILDA (SW AB/URINE/PAPon 11-17-2022 Chlamydia trachomatis, ZUNILDA Negative Normal Negative [facility] Comment on above: Performed By: #### A 1C #### [facility] [address] [place] [address] Dr. Alexsander Dickinson Neisseria gonorrhoeae, ZUNILDA Negative Normal Negative [facility] Comment on above: Performed By: #### A 1C #### [facility] [address] [place] [address] Dr. Alexsander Dickinson VAGINITIS/VAGINOSIS DNA PROB Jose De Jesus 11-16-2022 Reema species Negative Normal Negative [facility] Comment on above: Performed By: #### V AGINT #### [facility] [address] [place] [address] Dr. Alexsander Dickinson Gardnerella vaginalis Negative Normal Negative [facility] Comment on above: Performed By: #### V AGINT #### [facility] [address] [place] [address] Dr. Alexsander Dickinson Trichomonas vaginalis Negative Normal Negative [facility] Comment on above: Performed By: #### V AGINT #### [facility] [address] [place] [address] Dr. Alexsander Dickinson US PREG INCOMPLETE ANATOMYon 11-14-2022 US PREG INCOMPLETE ANATOMY EXAMINATION: US PREG INCOMPLETE ANATOMY HISTORY: screening COMPARISON: No relevant comparison available. FINDINGS: Heart rate: 150 bpm position: Variable Anatomy: 4.8 x 5.8 mm choroid plexus cyst is again identified IMPRESSION: Stable choroid plexus cyst Electronically authenticated by: SEBASTIAN HENRY Date: 2022-11-14 16:19 Normal [facility] FREE T4on 10-19-2022 Free T4 [Mass/Vol] 0.89 ng/dL Normal 0.76-1.46 [facility] Comment on above: Performed By: #### H BSANS #### [facility] [address] [place], [place] [address] Dr. Alexsander Dickinson TSHon 10-19-2022 TSH 1.303 uIU/mL Normal 0.358-3.740 [facility] Comment on above: Performed By: #### H BSANS #### [facility] [address] [place], [place] [address] Dr. Alexsander Dickinson US PREG ANATOMY SINGLEon [...] DEE GALLEGOS Date: 2022-10-17 20:42 Normal [facility] AFP MATERNAL FOR SPINA BIFID Aon 10-11-2022 AFP MoM 1.49 Normal [facility] Comment on above: Performed By: #### A FPMAT #### [facility] [address] [address] [address] Alexsander Dickinson AFP Value 60.8 ng/mL Normal [facility] Comment on above: Performed By: #### A FPMAT #### [facility] [address] [address] [address] Alexsander Dickinson AFP, Serum for Spina Bifida Report Normal [facility] Comment on above: Performed By: #### A FPMAT #### [facility] [address] [address] [address] Alexsander Dickinson Comment Comment Normal [facility] Comment on above: Result Comment: Niurka Patricia, Ph.D., [facility] Director . References: Available Upon Request. . Multiples Of Median Cutoffs For AFP Elevations Fonseca 2.5 Black 2.8 IDD 2.0 Twins 4.5 Abbreviation Definitions IDD - Insulin Dep Diabetes OSBR - Open Spina Bifida Risk . For further inquiries contact [employer] at [phone]. . This test was developed and its performance characteristics determined by [employer]. It has not been cleared or approved by the Food and Drug Administration. Performed By: #### A FPMAT #### [facility] [address] [place] [address] Dr. Alexsander Tiwari Age Collection Date 19.4 weeks Normal [facility] Comment on above: Performed By: #### A FPMAT #### [facility] [address] [place], [place] [id number] Dr. Alexsander Dickinson Gestat, Age Based on NILE [facility] Comment on above: Result Comment: 02/2023 Recalculations are not recommended when gestational dating by LMP and ultrasound are within 10 days. Performed By: #### A FPMAT #### [facility] [address] [place] [address] Dr. Alexsander Dickinson Insulin Dep Diabetes No Normal [facility] Comment on above: Performed By: #### A FPMAT #### [facility] [address] [place] [address] Dr. Alexsander Dickinson Interpretation Comment Normal [facility] Comment on above: Result Comment: Inte [...] Customer Services to discuss available options. The [employer] recommends amniocentesis be offered to women age 35 and older. Performed By: #### A FPMAT #### [facility] [address] [place] [address] Dr. Alexsander Dickinson [age] Normal [facility] Comment on above: Performed By: #### A FPMAT #### [facility] [address] [place] [address] Dr. Alexsander Dickinson Multiple Gestation No Normal [facility] Comment on above: Performed By: #### A FPMAT #### [facility] [address] [place] [address] Dr. Alexsander Dickinson OSBR Risk 1 [place] 2809 Normal [facility] Comment on above: Performed By: #### A FPMAT #### [facility] [address] [place] [address] Dr. Alexsander Dickinson PDF . Normal [facility] Comment on above: Performed By: #### A FPMAT #### [facility] [address] [place] [address] Dr. Alexsander Dickinson Race Normal [facility] Comment on above: Performed By: #### A FPMAT #### [facility] [address] [place] [address] Dr. Alexsander Dickinson Test Results: Negative Normal [facility] Comment on above: Performed By: #### A FPMAT #### [facility] [address] [place] [address] Dr. Alexsander Dickinson GTT 3 HR PREGon 09-29-2022 Glucose [Mass/Vol] 99 mg/dL Normal 74-106 [facility] Comment on above: Performed By: #### A FPMAT #### [facility] [address] [address] [address] Alexsander Dickinson Glucose [Mass/Vol] 173 mg/dL Normal [facility] Comment on above: Performed By: #### A FPMAT #### [facility] [address] [address] [address] Alexsander Dickinson Glucose [Mass/Vol] 151 mg/dL Normal [facility] Comment on above: Performed By: #### A FPMAT #### [facility] [address] [place] [address] Dr. Alexsander Dickinson Glucose [Mass/Vol] 76 mg/dL Normal [facility] Comment on above: Performed By: #### A FPMAT #### [facility] [address] [place] [address] Dr. Alexsander Dickinson GLUCOSE - 1HRon 09-20-2022 Glucose [Mass/Vol] 159 mg/dL Critically high 74-106 [facility] Comment on above: Performed By: #### H BSANS #### [facility] [address] [place] [address] Dr. Alexsander Dickinson HEP B SURFACE ANTIGEN SCREEN on 08-17-2022 HBsAg Screen Negative Normal Negative [facility] Comment on above: Performed By: #### H BSANS #### [facility] [address] [place] [address] Dr. Alexsander Dickinson HEPATITIS C VIRUS AB W/ REFL EX QUANTon 08-17-2022 HCV AB <0.1 Normal 0.0-0.9 [facility] Comment on above: Performed By: #### A 1C #### [facility] [address] [place] [address] Dr. Alexsander Dickinson Interpretation: Comment Normal [facility] Comment on above: Result Comment: Nega tive Not infected with HCV, unless recent infection is suspected or other evidence exists to indicate HCV infection. Performed By: #### A 1C #### [facility] [address] [place] [address] Dr. Alexsander Dickinson HIV 1 AND 2 WITH REFLEXon HIV Screen 4th Generation wRfx Non-Reactive Normal Non Reactive [facility] Comment on above: Result Comment: HIV Negative HIV-1/HIV-2 antibodies and HIV-1 p24 antigen were NOT detected. There is no laboratory evidence of HIV infection. Performed By: #### H IV12 #### [facility] [address] [address] [address] Alexsander Dickinson RPR QUANTon 08-17-2022 Rapid Plasma Reagin, Quant Non-Reactive Normal NonRea<1:1 [facility] Comment on above: Result Comment: Plea se Note: This test does not meet current guidelines for screening and diagnosis of syphilis. This test is intended for following treatment response in patients being treated for syphilis infection. To screen for syphilis infection, a reflex cascade that includes both RPR and a treponema-specific assay should be utilized, such as Treponema pallidum (Syphilis) Screening [place] (564877) or Rapid Plasma Reagin (RPR) Test With Reflex to Quantitative RPR and Confirmatory Treponema pallidum Antibodies (601120). Performed By: #### H BSANS #### [facility] [address] [place] [address] Dr. Alexsander Dickinson RUBELLA AB IGGon 08-17-2022 Rubella Antibodies, IgG 11.90 index Normal Immune >0.99 [facility] Comment on above: Result Comment: Non- immune <0.90 Equivocal 0.90 - 0.99 Immune >0.99 Performed By: #### H BSANS #### [facility] [address] [place] [address] Dr. Alexsander Dickinson CBC AUTO DIFFon 08-16-2022 BASO # 0.1 103/ul Normal 0.0-0.1 [facility] Comment on above: Performed By: #### H BSANS #### [facility] [address] [place] [address] Dr. Alexsander Dickinson Basophils/100 WBC (Bld) 0.6 % Normal 0.2-2.0 [facility] Comment on above: Performed By: #### H BSANS #### [facility] [address] [address] [address] Alexsander Dickinson EO # 0.1 103/ul Normal 0.0-0.7 [facility] Comment on above: Performed By: #### H BSANS #### [facility] [address] [address] [address] Alexsander Dickinson Eosinophils/100 WBC (Bld) 0.9 % Normal 0.9-7.0 [facility] Comment on above: Performed By: #### H BSANS #### [facility] [address] [place] [address] Dr. Alexsander Dickinson Erythrocyte distribution width (RBC) [Ratio] 12.9 % Normal 11.0-15.0 [facility] Comment on above: Performed By: #### H BSANS #### [facility] [address] [place] [address] Dr. Alexsander Dickinson Hematocrit (Bld) [Volume fraction] 39.0 % Normal 36.0-48.0 [facility] Comment on above: Performed By: #### H BSANS #### [facility] [address] [place] [address] Dr. Alexsander Dickinson Hemoglobin (Bld) [Mass/Vol] 12.9 g/dL Normal 12.0-16.0 [facility] Comment on above: Performed By: #### H BSANS #### [facility] [address] [place] [address] Dr. Alexsander Dickinson IG # 0.04 10e3/ul Critically high 0.00-0.03 [place] Comment on above: Performed By: #### H BSANS #### [facility] [address] [place] [address] Dr. Alexsander Dickinson IG % 0.4 % Normal 0.0-0.5 [facility] Comment on above: Performed By: #### H BSANS #### [facility] [address] [place] [address] Dr. Alexsander Dickinson LYMPH # 2.4 103/ul Normal 1.2-3.8 [facility] Comment on above: Performed By: #### H BSANS #### [facility] [address] [place] [address] Dr. Alexsander Dickinson Lymphocytes/100 WBC (Bld) 26.3 % Normal 20.5-60.0 [facility] Comment on above: Performed By: #### H BSANS #### [facility] [address] [place] [address] Dr. Alexsander Dickinson MANUAL DIFF REQ NO Normal [facility] Comment on above: Performed By: #### H BSANS #### [facility] [address] [place] [address] Dr. Alexsander Dickinson MCH (RBC) [Entitic mass] 28.4 pg Normal 26.7-34.0 [facility] Comment on above: Performed By: #### H BSANS #### [facility] [address] [place] [address] Dr. Alexsander Dickinson MCHC (RBC) [Mass/Vol] 33.1 g/dL Normal 29.9-35.2 [facility] Comment on above: Performed By: #### H BSANS #### [facility] [address] [place] [address] Dr. Alexsander Dickinson MCV (RBC) [Entitic vol] 85.7 fL Normal 81.0-99.0 [facility] Comment on above: Performed By: #### H BSANS #### [facility] [address] [place] [address] Dr. Alexsander Dickinson MONO # 0.6 103/ul Normal 0.3-0.8 [facility] Comment on above: Performed By: #### H BSANS #### [facility] [address] [place] [address] Dr. Alexsander Dickinson Monocytes/100 WBC (Bld) 6.8 % Normal 1.7-12.0 [facility] Comment on above: Performed By: #### H BSANS #### [facility] [address] [place] [address] Dr. Alexsander Dickinson NEUT # 5.8 103/ul Normal 1.4-6.5 [facility] Comment on above: Performed By: #### H BSANS #### [facility] [address] [address] [address] Alexsander Dickinson Neutrophils/100 WBC (Bld) 65.0 % Normal 43.0-75.0 [facility] Comment on above: Performed By: #### H BSANS #### [facility] [address] [address] [address] Alexsander Dickinson Platelet mean volume (Bld) [Entitic vol] 9.9 fL Normal 9.5-13.5 [facility] Comment on above: Performed By: #### H BSANS #### [facility] [address] [address] [address] Alexsander Dickinson PLT 275 103/ul Normal 150-450 [facility] Comment on above: Performed By: #### H BSANS #### [facility] [address] [place] [address] Dr. Alexsander Dickinson RBC 4.55 106/ul Normal 4.20-5.40 [facility] Comment on above: Performed By: #### H BSANS #### [facility] [address] [address] [address] Alexsander Dickinson WBC 8.9 103/ul Normal 4.0-11.0 [facility] Comment on above: Performed By: #### H BSANS #### [facility] [address] [place] [address] Dr. Alexsander Dickinson CULTURE URINEon 08-16-2022 CULTURE URINE Culture Observations: MODERATE GROWTH OF MIXED GENITAL JOHN. NO POTENTIAL PATHOGENS SEEN. Normal [facility] Comment on above: Performed By: #### A FPMAT #### [facility] [address] [place] [address] Dr. Alexsander Dickinson GLYCOHEMOGLOBIN A1Con 2021 ADA RECOMMENDATION SEE BELOW Normal [facility] Comment on above: Result Comment: ADA RECOMMENDED LIMIT 4.0 - 6.0 ADA THERAPEUTIC TARGET < 7.0 ACTION SUGGESTED > 7.0 Performed By: #### A 1C #### [facility] [address] [place] [address] Dr. Alexsander Dickinson Glucose [Mass/Vol] 111 mg/dL Normal [facility] Comment on above: Performed By: #### A 1C #### [facility] [address] [address] [address] Alexsander Dickinson HbA1c (Bld) [Mass fraction] 5.5 % Normal 4.5-6.2 [facility] Comment on above: Performed By: #### A 1C #### [facility] [address] [place] [address] Dr. Alexsander Dickinson LATRELL BOX TEST PT SEND OUTo n 08-16-2022 SENT TO REF LAB 08/16/2022 Normal [facility] Comment on above: Performed By: #### N BOX #### [facility] [address] [place] [address] Dr. Alexsander Dickinson TYPE AND SCREENon 08-16-2022 TYPE AND SCREEN Negative Normal [facility] Comment on above: Performed By: #### A FPMAT #### [facility] [address] [place] [address] Dr. Alexsander Dickinson US PREG TVon 07-21-2022 [...] DEE GALLEGOS Date: 2022-07-20 22:25 Normal [facility] US PREG TVon 07-13-2022 US PREG TV EXAMINATION: US PREG TV HISTORY: Missed period COMPARISON: 03/09/2022 FINDINGS: Fonseca intrauterine gestation Gestational sac: 1.7 cm, 6 weeks 2 days Yolk sac: 1.7 mm [place]-rump length: 5.8 mm, 6 weeks 3 days Heart rate: 125 bpm Uterus is normal in appearance, anteverted, retroflexed The ovaries are normal in appearance. Cervix: Closed, 3.9 cm small amount of fluid in the endocervical canal IMPRESSION: Viable fonseca intrauterine gestation measuring 6 weeks 3 days Electronically authenticated by: SEBASTIAN HENRY Date: 2022-07-13 17:05 Normal [facility] Coding Summaryon 03-17-2022 Coding Summary HTMLBase 64 GuujuotqGLy8zRe+PGhl YWQ+DK1LXSUjB22kyPXm rA1ZE6kIJK9EMVLCSQVC YL9VXY4bfBA3FEqkQ3Kd biAv LqgcoWVlDW88NOl0VFK8 vKumAWtsrI4ltVEnB4c1 CyRkBA20tV96MSdvPSTz YpR8WvLhzfzhtGZm U9nxNrVgrCEiXtt+PHRh YmxlIHdpZHRoPScxMDAl UzGvfJzrXL0uZd7fCVNt LWNvbGxhcHNlOiBj h4noYLPnUVlpCP9nwJeh O2JwbPE7VNLvl4g2Ct86 dHI+FDVwVKA5jZetZNnn s109QxFle0adNAW9 lZZkCPilOUJ8M47wy9D2 JLMzWFAlDFU4vZA9gQ3s vSdhrlgeV8ApoNLcRsT9 KCA1yOUhgH4roHyw wblorF2zRqy+Q50VGA2Y RLWESL1KUsk0R9EdWfrg dHI+GH08KPJrKH31nYKd hDIqa7cvqJq9QlGt BYXdRMB1aOonBNour1Fm KOVfX47vtFIli4N0SGOu iRitpUIpThIaxZN2dX8a RYhhdwmhq2njxwlg Kvzup6vtzn37lL57Q64s LFrrABRgKSH2TJKbESUg kErbyk2bkT1yUw8+IDxj g4mil5tleGd3ZhSx OQWcctJhbVmlUPX8i1Wi Lv18O9YjjHcdb3AaUdn1 ps19aPCvk5J0dSM8TZcb HLRszP1kSVyyUgW8 IVUzKqFdbH71yWRmMQrp Hh3wnLhkvAmiUL8pNHCv congBLVygK3xVNWluIKp iVqkEY7bSZGvoluc t863QfKtOKU7ESBysLOy I7OgyY2uIxOfHSHbFMWz T3UgpKNqYWepS482FBwu BsC0ZXDikxHcQ0Tm MMJbiOieVuO9g7U1Au3K f4NgpxbfQUR9GPayKRP5 MpKtNrQeUvN0D1BnMtf1 VOUteMarYN6lX5Gu FCLbnbekxflofGA1VRIa SXWxdR85xPObHOyuRz7z z6X4a208ESTwVBBgfI94 Yu0gnHagROQktJYX vQ9fsigku7rfdpsgSiJz MWSrHBi5DBk4GZDonWnf LeTiHPZ7GrH3XWD2fKBx kJ4mdYrfobsqiP5x Oyc+M66tuY1dUDS6PMU8 osopZKGluxYcTS13OI25 T6JcFwnqzKAfjKM+PGRp sjAhwIwkNG6pEdCj s7gwa7FtALrfT1BmAPTv BIhqXyj7RJJsYBR9nUZ5 mZ2lYJWhFRorm2Y0pGG0 E9VcpcSmew6pv4at QKSvKSckI30wsPFgc0C2 SNStqCT9UQVnrAieWhMv fU05Nrk+JEGbsFdcy3Ad Woezb0bzc5ldeWm6 IjMwJSIgdmFsaWduPSJ0 a4NjAn79Q28rNLrgVOFe WHSbCCXdQPDhoJlzev0l uU7fLm7+PGNvbCB3 aWX9zD5gHTQaPxC0KAsp I899TgLybCCqJvhto3ux j3qlsIj4FfObDCOfgkAv qKliZPH1x7GoAm72 I99zPBrnPELaRMXiCSIi SMIpjRfecs7llB6xMd1+ SU2ym1lssh67kA57nBH+ OOHsPSC7tWadMQgz OXXunL7mSObmTwR7UMKm ZjKrmL50iLRcZLzzWt4n eQlbnHgrML7cBDLlqiqf l900NxTwp9rwOZHo dWHmIXlwWUR7Y66co6F1 OQBzAGCmNKI8sGN2nL9x bGlnbjogbGVmdDsgdmVy jRgsDVrzHWbjH336 IHRvcDsnPlBhdGllbnQg UhByFHc1G5GzWxy7KTWf rRhxHP2tuOXlHOtxMn1w bNaaoVstJB1iJSIh bgazz105CzLli2bpPQHr nCLpUFjtNEE4L06na8S4 WILjITNnBVE0dTZ9dP4a bGlnbjogbGVmdDsg ytMscZypNLvuKLugA264 IHRvcDsnPkJpcnRoIERh mVK6BS62YT73iNEmi3A9 cGI4X1DjZTWxcrpd gwrgaJR0FQWkRHTtvV47 Sc0abLmuLi6gOQUzULA3 AXDfqRBwH0SwgC4nKfFz XTHvFUFsR0MkrRZn ZGgrT416YNjdXsK9LSOi ncRyC4EmRCZefPifPaU9 w8A2Gd5XB9N9MO43HI51 mLYks7O7aVU2O4Qp ASFvsuzlvaouxDM6SUVc EJTkeW71Nb5foUwzRy5d ENDdNNC9SUXciPGhD3Pd pN6xBlBsPLQtCXRl L6KgzGMqWHzbK801GCii ByN2YYXtetUsH9GzUEQp bKnqKyN7y7J2Yt1QQOs8 GT38OM57eVVxd9B1 dBR3E9ShDWEapsylyufu lSR1EANyWYOzwE09Ov4z uDwgMa1hUFMjMVF4YQYh sYGjR2UpaG1qRxDu OKAhZONmT0RweNVwANym Q892PAbgMnW7WGBcunVl K0KfTOYfmSotYrB5x7A7 Ad9EKTHqZD81AOW4 mVC1DW16CE46K1VeDjic dGFibGU+PHRhYmxlIHdp ZHRoPScxMDAlJyBzdHls XX9uNq3kPVKfQQJz gAcrzQPiLeVbm3lxLVBb HXlnZY6keRljG9QnhRB8 TYHwa3t4Ew12V36gD8Aq dXA+KIBfuGV4oAU8 xR9lFlLmQqJ1RHrhM580 VkAeyEHyKtrsc5oum1gz aKy2JvJ2SSYvasSdwNiu CQS4l8YcQn04J56b IHdpZHRoPSIxNSUiIHZh dVubkq8bcX3jFx4+PGNv tZV0eYL0hS4jIpJeFtG3 TBpsJ359JtTjvGZd Qxmht1evb5sygDx6UsJf CWGignLcnRazHMP3w2Xm Kz07J8QenRxrh6PuWjv0 ca97sAJpd2D0yJR0 F2IzHRBkqrhaqJCmlNut KG0eFUCyrimdECErpI4q LVLaT0v9HuDgOtL5WWxt C5MwglE0TMWvhDNo YNdnVRP5U02tz1L3RLKx WIJmIQI8nLT3gC0kxCvc bjogbGVmdDsgdmVydGlj NSofKFdtX204RTDm hObiVBYgwA9dPLZoeXPr pYtsCP1qSMKdrpcsItKG TExJTlMsIEFMWVNTQSBS SVVLFAo9Y9NvJrw7 NKGeiCcwSH7noMCsECut Ul1isVdnfXvrFU2oQYWk kyhhODTurN5wPNXpdRNg cEioWR4hVYTlvbju a955ZoHuWJK6WWPfkYCi G5MiqI0tPtFdLJFbYKYo D4ZolSUiFWegH202KNvv BuE3NAQqxuEqL4Ll ZWImsFqoMvL7u6G5Ia3q BB7hHo5wFQy1GS54DA91 wQFgi2Q1nTW5J7CzBDVz ssqptnvktJX8NREg VFWfgT75pCKdQJboNm7i c1T5z508DQCeSNYezT57 Am4kuFuxZWNgkOJMhE6q lword6gpxgnjOeIe ASBnCYr8UXl9GTStjWmh UyBbKXV1QuU6RIX8eKUn lM2joDckjvglrZ4aXxb+ LuhpGVFyofE7U4Eo Bcp2HYKdqQjnQC0pjJVw IWasKl2geNqnwTlyLB1z YLLdswcfYALoyS4xGFLc uREwnNjrXW3uTDTq gmtcf507JgFyIUL3KDAd aEEtG2WxjI3fCoYeAMYd KAMhZ2JmrOItJAovC482 LWoeDrK0CBQmvaCa H7KqIYLloIkbSvN3r4G7 Nc0KQZ5GJWY7V4HgZjs3 MCRbdOhaAK1jzYIzEOug Br2ryZpcpXijRF9g YYEixkxiZTEkbI7fTSOw zOPqaKjqWF8nPQGutfmh s882UeFxBKM9WRZgdYNb E1CzfT3uCfSbNYRk WEBmF4FtkPRuGVsfD625 CUbhYmR9RICzpxQdU8Xh MOOjoCgyIgL5b7F5Tt6D UDwvdGQ+VT26ou38 V5MuAoatNky5NMUvFRL4 lXC4lA3bUJUuTCvtf8C8 bWS0I0LcraSjae2kv2um RJEkEMedT19xnUUg g1F4MFZvzJN3LYFsdCrb EdFijO05Ywj+PGNvbGdy y3HeZuczb9xqv1uknNe4 IjMwJSIgdmFsaWdu KTO1c6WmZa65Q04wNPxr ZHRoPSIzMCUiIHZhbGln lz4fsI1tJd2+PGNvbCB3 iTA0pK2eFaXqPiQ1 HKwyS532CoDjlOOwQkal d6hlx4owlIw8ByVuXQBu poGexYyhLHR6g2SjSj05 U2IikFovk1XfWar6 cd93aOUvb7V8nMI4Q0Ny OREzlgwhuQMiwEheWL9h ZSJujawuRSSaeH0wLOQm Z9e8ZePhOeJ3APph N9UrtqM5GOPebLJpSRBc bYSPmO9odqdou4ktsoxc OzTrEKRxMOk6ACy5FXYk fGuxXgQbBLS4CrB2 SHU4eOUaaK3wgHinofok bR0aPab+LRf9v3mzoLXf XE4beVU3DE62CA61tLMn t6R6hAP6C2XjZBMz zvjgpxqjnLQ5QCOvWSEh cQ88Qj6jrIhtLt7wAUOo EWJ5SFBumUUpG5FemW9s AhSmETUhVUBnQ2Fp gIRwSYhoH783BJycSuB7 UQGjbzCkP8RsZHAznYnh IoS0p6S4Pa0KDY88IE06 NA04pUErr7A6lWS0 B3GgXXJkuxzygmwkrJB2 FQZtSYDauF47Nj1mhBhu An7oRMBmODQ4UJBxoOWd K9OsiJ9fBoYfIPBw JWSfQ0NwgEHdGJcyY612 XSzlLrC6DBJvtrOoV8Gk OLVlpHbnRuU3l5C2Ty1G Hf11WF28JD25pKWj z1N3kYX3U0CjQOLnrdqc wvvipOP7HCRcFLHrdR99 Zb2poOmiXa7cKJXwUDU5 DXCkiOLhK7JxsS8b WtQfLQHdLGHmE2TfxDYx EFubH251QJidFpS7YAWw vcExV9HrKEVxwPzaLjJ8 c2R5Ge6APNelcfu4 V0HmOxflkVV+HL85GGZx ZM60pBUwsJLgd2bnrAu4 YyFcODXvCBP5aYgrEQcx x3FwEFVhC26vyNJt c2U (more content not included)... [facility] Coding Summary HTMLBase 64 HsmsrvlwAIj1sVp+PGhl YWQ+WB6JCUGvG23qfWKk wQ1XJ2rOWO8SMMAXDLFE RZ6BGR4gwQM4NDxwX5Br biAv ObnrkOJvAG55OAv3AWO5 nIayCYhhyQ5yiQKxM5w9 TcSkFO20mI17APspZNWf ApB4VtMysyqobLYl F0iiAoCpzKTcZad+PHRh YmxlIHdpZHRoPScxMDAl OaAovHehBA8lLe9hEMFm LWNvbGxhcHNlOiBj g8tiKZZfDRvvBJ2teNmp J8QpkSB8OSSiq8o6Wy38 dHI+QDElRZW8fUzmBMyy s016SjAaf9iaGEY4 uBToZUqyPER7R23ik9L8 FBIfIILpQRR2wHC2lO0i kSgtsyucZ0NlsQXmInD7 EQB2oHGpdM2kxThy pydgaQ9wFdt+N35FVX0Q JJNYBJ0DYqx3A7VnUnyo dHI+VI85JJJlHX30oWUm bDYen3iokWr0VkTe IXRrZGN2tXbyEPvxi0Dw TTFiT68ajGWdx5W3YLKa yRbjaMBtLeRpiAW4dR1o AMafpqkzw7eorjdo Jfauh0kgyo79uI97F26w FRguQKKdIQT0KCDrVALl oVdnjc4ozZ8zJv0+IDxj t5xkg2mxyWo0EhLq DEEkokAasYsdTJF0e1Ps Vx83P8LzpMion8IzWtw9 qy55tUPki5N6aBB1TFbb RDRyeQ5zBLtqOdN1 JJJsXmWnvP68rBSzEJod Xa7tzXkagUgqTG1eBUAm scxlZIIyiZ6oFHIyyYPh kJdvQH0jOMSrggoc n602SdIlOOS6WTVolDFd Q3JjpD8zWuVuBFZzRYRc U4MayXMdWYqkH742ZOog CjK9IWImepUyX1Vz OHSxuHggExX8b9B8Ut5R t4MydjifZAZ5XXxsKJL5 YvDgNbCdUiZ4S9CrNbk8 JSDijGjmUA0hU5Hy ZHZpmwoydknbtOE1EMSc DSLhdP79uTOnFQqbKw3w t2M9e466VZRoCYQmjK98 Qp4vuTjsOXYtsTPL oL1phrwba9uqqyzvCrNx BJExVNw7AAw8SOKttCkz GcIpOGF7PsS6ZCL3mPQh eB5vuZosymappE3d Oyc+K08dtH8eAHX5NIB9 ojvaKWRyzlJnEY60PZ62 C4VvCzlkwWPafSY+PGRp pnGqfImfWH4xRzTs v6rof5DjWTurW6DlGCMa ESfeTtd6ILMwOMN9eZR6 eO9gSKIyMMvjp7S2eWN9 I3IxkwJtnn2jv2fi ZQKbLYiaT68drDHot2L8 YJDijQC7PBPfcYpoHaYq wD18Bzm+RDYiaWfdv5Ov Wwtmf7kud6qtgBb4 IjMwJSIgdmFsaWduPSJ0 i8IaRv05X17eIKmfDTNh FSGhRNOiLJJeiJchnx3p zT3qLr7+PGNvbCB3 gBA9bO9tHGQzOkE6AFfz W051MvHmaRVoVinhv1ko e4jqfZb1CiQpAWDwngZp hEqcISW2p3SfTg42 Y86xFZuzASIuWUOyQJCt XLVmuQbyfz3kcQ8wYv9+ XI3nb6hzkg50kY58kAN+ FEZoOOM9uMccDRcw VHZweV8yKHqcAcK1VRKg RuRtlM03dSVcNZxuKt9w cFeqzGcfBF2aFZOrkvub w069TaQga6kfAUMh uRVoBXhkBYM2F90hj9L9 KQDgBSTbSOL6xXO9pD2s bGlnbjogbGVmdDsgdmVy fNhjVMkxDLbhR965 IHRvcDsnPlBhdGllbnQg BhUyYFu8P9IuRpg6XRGs jTfgNX5dvCBtELfwPz1a kWilkYtaUX4kNGHk sqzhj491XsBxf1vrGCDe pOMqNZuuWHY4S60pc5N4 AYMnGMXzNCK0sKQ7mI6h bGlnbjogbGVmdDsg laDldBblNOvjQNtuD112 IHRvcDsnPkJpcnRoIERh wHH2OU80VP22jKMmw0V8 iZW6O5VnUWAhmwfi xinzqVL8OBEdOQQitM95 Hy7twZrwZj9mOKBtULN2 JOYeiRXtA4WspS2zBtNe VADhCPEbY9IdaYOt WFktJ518WQsbAgB8OSSi wcAqW0DdAWUypIrhBrZ1 r4U9Yx8GB5U3LQ38CP64 nDXfp6S1mVY1A7Co QEUpwmrgeexmgPE6TKYx ZUDflQ03Gz9bcIdfDr1x PSYiDYP2WOPgrQLhK0Cn gO2nRdDpYKHxMNYb Z7SnuODiWNumH719RUpn QmD4RMPaahOgK8WzJARx uDamLjI9b5E3Lo2EHMb9 DX94LO78uLFxs4C2 xNO2A6EeXKKbtbbqmdfg wEO3WZZxJEDqgY89Xm4d pCubXj2lIPYqPJT4JYTh oCIrM4SqnN7dXnQj AZGaPSSqB1SxjICrCQib Y051YLjkUxD1IETbinFb Z7FhOMTorBckMvQ2i4W9 At2QJSNaFC26PWM0 bLP6ZU19GT81D0VfRhgx dGFibGU+PHRhYmxlIHdp ZHRoPScxMDAlJyBzdHls WR0pPh9pIGZpBHZf iRqheOCpBhKsh8jbNYLd RHadFP0jrIflA2OefQS6 SNDwg1s6Jx39X34mQ9Su dXA+ZTQkvME1eAF4 yQ8oIgTlIfJ2EInnQ703 ZnMlxWZdWkkgu5civ3bd rTm9CmY3LCOukyBfvDww YCH3f6SkRz87K50g IHdpZHRoPSIxNSUiIHZh sPmxud2ppF9kQv0+PGNv yCE0xQG1gE9oXtXtNdM9 OSdaD814JcNufDBy Kbskg8uou6xstIk9FtPd VWRqaqOcgOqcOKK7v0Hf Bq90T9GvuIpsn5YvVjk8 md56sBJea4H7nCO1 X7BuDADyzjactTOpeKdo QN2iJHZwzxsmZKYnpW2p WBZrZ7z6YzIpOaJ8XVkq W5PkhoC5KWKvyYYu OChsVEQ4O01iu4C5TGKr FJGxZRX0hKG0pC2lnEhe bjogbGVmdDsgdmVydGlj WHjpRHdeC878DNQb kCuwXLUeyY7fRXWfdFXb pRleWI5bSBOlhaymLqHT TExJTlMsIEFMWVNTQSBS FWOJMTl6S2RjYpb5 XILfhTahWL6dxCGrINdv Qs1atAmdnTmbPJ3eZUGn wvitDDRreQ7qLTUcmBYc eGcxDC2dZAXktewg k210OmVuVXM6XJWbqCYu R7IzsX7gIcUbXBHrSMYk C1XcdQLmTYouW990UDlt QoF3WYZafxEsH6Eh PPDhvZodQbM4q4D5Ml6b EV6yWg1xXUa3ED36YM26 gCYyu6N8dXD0T6EeSXDn jhvnetlkrFC3QZJb QRDnlQ56uHOpTGsbKx3f y8P4o272ARGnBTCneM07 Wa6alYilXVPqlHNEpP9p vevco1vaonyoPqIj ZTVmHIs9TDf0RYOwwLtx BaXlYLZ6JcJ5FLM1kTZt wQ7efUxvorpktU2uXdn+ DyuqJXYuybW4M0Eu Fuu6WFYcrVbvVU6byWYl VLrxTh9xiOuzvHtqIP8z TRWgowmxUNKmcN4hPXXz bQPbsMtwEY6uGWWx hsykt904EzRjTPQ3EJMl nCMyX7HjnR7fNmQgTURg YVWiG6ClrAWoKLckX498 HYosXuX1BNCxbcNa R5CmQTGqfWoiRnW1q8P2 Ec8UFR0BWRX2O0IyMey1 KQNmfRfrFU6byAHfXLmm Uw0nzRzanSajWQ8r LDOlsteeHNNeaN2nKWEx qKUwcMvwWB5lEXOhgbmo k385PlTmJAN9PLGsnYSe P1EyuQ1oLyBhPBIp OLBaL6GpuQDgKDtvT218 EOkjJjK4BUMkhuAtR2Wk BRGxjVorGmX9b1I3Rx9R qYCjB0VqA5j0B8Mm PjwvdHI+YY53KJFhXQ90 tZFosUTom2lcuBc0ZuRb VUYmBPC1kCjjPXegm2Um KSEmA45flCUpj5C4 IGNvbGxhcHNlOyBlbXB0 hS1sAYholkyyk6qrxkod Ediqd3vpmr56oG26C40u IHdpZHRoPSIzMCUi UTQnzHyiuu4olC3lJz8+ YEMdtCC7cZJ8uK6bXhFq HaI9RIlaQ722QkBjxQEi Myrdq9zry0ryuBm4 IjIwJSIgdmFsaWduPSJ0 j8IuEj23S84lAAbxMQAt MYTkCIBpPNMsfUqyop3g fJ4eBj7+RN7ed2jv qi61oO08gLZ+PHRkIHN0 uFexTEufDOArwP2yYQyy GcT0DHKbSnYejX13vOYj NLasZx9omZxnpMou KT1xPGUcjxklf437ZaKj c4laUJQdqKPiFAxlSAV6 F62pt3S1JDKfBIIoZMO8 eGL1xT1khVsmebnr bGVmdDsgdmVydGljYWwt LUofX151APRrhUhwSeBs dBAuO5xcvgVQUW6eWzzw dGQ+QBInXOK8vXxw DRxjPFCpdM5bYCLmO8x8 KyYkBiN0IHyxH4YgalQ3 VCNydWQkPWRdgDQUlG7l ahgcu1jjdhjyMhQe SPYjHUw5XUq4QOJmoMod MpUaXDT8WxY6GTT9gWUt fB7iuYinllfpbZ0cNrs+ RklOOjwvdGQ+PHRk BSI8zNqpLKgoEFZepV4y ATNwN3r9FzXrLlM2DKow O0LjrqD3IZIoqWPgRYCg yJCZpL4jbmhqu1lu sgvgQkVsNRCvIKl8OAf0 QTRwqIdpXzPxKKB4GkP8 GZO0gNDboW0giXechate rN0rWow+TVJOOjwv dGQ+NVNuKCO6rHybXWbb JLFqjA2qCTWiM4m6HhRy YvU2YRniY4KukjU7DAJb aSIgLUUbtQQKhJ9m aaoct7wtinfzFdNkPYUw GHm3EQq4EXGuvZelStFm MON4YhA0EWH7bNOxgY0u yQvkyytefC5pFcv+ UWO1TTP2XL83IY63Z9Qr PjwvdGFibGU+PHRhYmxl IHdpZHRoPScxMDAlJyBz zMplQE0jHf7hLPSv LWN (more content not included)... Normal [facility] C Urineon 03-11-2022 C Urine Urine Culture ordered as a result of parameters set on specific urine dip and urine microsopic results. >3 Organisms Consistent with Contamination Recollection suggested. Normal [facility] Comment on above: Performed By: #### 1 [id number] #### [facility] (DEFAULT) [address] [place] [id number] .Auto Diff 03-09-2022 [place] % 8 % Normal 11-09 [facility] Comment on above: Performed By: #### 1 [id number] #### [facility] (DEFAULT) [address] [place] [id number] Baso Abs# [id number] x10 Normal 0.0-0.2 [facility] Comment on above: Performed By: #### 1 7144571, 76229045, 0098277, 1315711635, 59441554, 8019461, 7813572766, 4437276267, 3351073983, 0704206 #### [facility] (DEFAULT) [address] [place] [address] 68023 Basophils/100 WBC (Bld) 0.3 % Normal 0.2-2.0 [facility] Comment on above: Performed By: #### 1 4350562, 94257441, 2662848, 1330527137, 13664558, 2229232, 1722389637, 8112836409, 4693474714, 8841638 #### [facility] (DEFAULT) [address] [place] [address] 99017 Eos Abs# 0.1 x10 Normal 0.0-0.4 [facility] Comment on above: Performed By: #### 1 0307768, 34773391, 7468168, 3321794075, 87730774, 4501164, 2488751696, 4190612311, 9197644516, 2358985 #### [facility] (DEFAULT) [address] [place] [address] 91012 Eosinophils/100 WBC (Bld) 1.0 % Normal 0.9-4.0 [facility] Comment on above: Performed By: #### 1 2032961, 22950624, 0090012, 0928839826, 66554286, 7721622, 6864922642, 6853218319, 8296087542, 8631755 #### [facility] (DEFAULT) [address] [place] [address] 62850 Lymph Abs# 2.0 x10 Normal 1.3-2.9 [facility] Comment on above: Performed By: #### 1 8470812, 11435326, 5762507, 3832787571, 40620184, 5804315, 5523869549, 8602095287, 8011290821, 6364161 #### [facility] (DEFAULT) [address] [place] [address] 40044 Lymphocytes/100 WBC (Bld) 35 % Normal 14-48 [facility] Comment on above: Performed By: #### 1 2865764, 90133773, 6845853, 9885930141, 68607089, 6856695, 8391313131, 2711510467, 2895503029, 9286392 #### [facility] (DEFAULT) [address] [place] [address] 30101 [place] Abs# 0.5 x10 Normal 0.0-0.8 [facility] Comment on above: Performed By: #### 1 8811886, 58511242, 7531687, 4411308215, 96424247, 3209290, 2565734959, 0977282879, 7690931048, 6846928 #### [facility] (DEFAULT) [address] [place] [address] 18404 Neut Abs# 3.2 x10 Normal 1.5-9.2 [facility] Comment on above: Performed By: #### 1 8579383, 85229971, 1791867, 8119522795, 25731770, 5501204, 5959672899, 6075119986, 4536792970, 9544809 #### [facility] (DEFAULT) [address] [place], [place] [address] Neutrophils/100 WBC (Bld) 55 % Normal 44-88 [facility] Comment on above: Performed By: #### 1 3150081, 84262744, 4171987, 3138931997, 03515776, 5641009, 9657480308, 5837631441, 5821399600, 4409955 #### [facility] (DEFAULT) [address] [place], [place] [address] ABORhon 03-09-2022 ABO and Rh group Nom (Bld) Hx Check: Not Found Anti-A: 4+ Anti-B: 0 Anti-D: 4+ DCon: 0 A1: mf+ B: 4+ ABORh Interp: A POS Invalid Interpretation Code [facility] Comment on above: Performed By: #### 1 9933714, 20999360, 4073411, 5628942392, 16381624, 0737824, 3543308942, 6761117646, 2317047362, 9203189 #### [facility] (DEFAULT) [address] [place] [address] 72846 ABORh Retypeon 03-09-2022 ABO and Rh group Nom (Bld) Ordered by Discern. Anti-A: 4+ Anti-B: 0 Anti-D: 4+ DCon: 0 A1: mf+ B: 4+ ABORh Retype: A POS Invalid Interpretation Code [facility] Comment on above: Performed By: #### 1 1672710, 91876212, 1962532, 8823886675, 24088510, 0304019, 3979878523, 6814886749, 0790440103, 0151133 ####[facility] (DEFAULT)[address] [place], [place] [address] CBC w/ Auto Diffon Erythrocyte distribution width (RBC) [Ratio] 13.3 % Normal 11.5-15.0 [facility] Comment on above: Performed By: #### 1 0337572, 72221198, 1984940, 6004447202, 51799117, 7915270, 0127414667, 3689039842, 5665981761, 5034128 #### [facility] (DEFAULT) [address] [place] [address] 74781 Hematocrit (Bld) [Volume fraction] 43.5 % High 33.7-40.4 [facility] Comment on above: Performed By: #### 1 3148597, 73692725, 1693382, 9924421672, 09129547, 7164397, 5628694189, 6766501813, 5699005942, 9678623 #### [facility] (DEFAULT) [address] [place] [address] 11070 Hemoglobin (Bld) [Mass/Vol] 14.1 g/dL Normal 11.3-15.9 [facility] Comment on above: Performed By: #### 1 5645830, 05735373, 1527361, 3687430514, 20366298, 8640546, 7744362425, 1296068430, 2508719920, 5558686 #### [facility] (DEFAULT) [address] [place] [address] 81756 Instr WBC 5.7 x10 Invalid Interpretation Code [facility] Comment on above: Performed By: #### 1 5154966, 67375079, 5512342, 9870336429, 50602594, 8134490, 2740725787, 3687539001, 2940648997, 9109512 #### [facility] (DEFAULT) [address] [place] [address] 98108 Man Diff? Auto Normal [facility] Comment on above: Performed By: #### 1 0551046, 08014485, 6420184, 2342251977, 93189068, 2549734, 9284541875, 2797994838, 8388960033, 7959750 #### [facility] (DEFAULT) [address] [place] [address] 92012 MCH (RBC) [Entitic mass] 28 pg Normal 24-34 [facility] Comment on above: Performed By: #### 1 7358018, 98505839, 8492212, 3881716809, 75589406, 9421319, 1034436650, 0662316353, 5383185690, 0557649 #### [facility] (DEFAULT) [address] [place] [address] 61105 MCHC (RBC) [Mass/Vol] 32 g/dL Normal 26-37 [facility] Comment on above: Performed By: #### 1 0075376, 63288298, 4021883, 1502381622, 97083724, 4867160, 2701704230, 2722104436, 2243989171, 7217923 #### [facility] (DEFAULT) [address] [place] [address] 69046 MCV (RBC) [Entitic vol] 86 fL Normal 81-100 [facility] Comment on above: Performed By: #### 1 5574846, 45656451, 4423475, 6744192925, 82233083, 8565242, 5875220689, 1921970434, 6703235389, 4046732 #### [facility] (DEFAULT) [address] [place] [address] 45950 Platelet 324 x10 Normal 138-427 [facility] Comment on above: Performed By: #### 1 5134973, 62195203, 5112515, 8578132450, 79800694, 7842580, 5393885976, 5483548269, 2021968079, 9607456 #### [facility] (DEFAULT) [address] [place] [address] 87513 Platelet mean volume (Bld) [Entitic vol] 9.8 fL Normal 6.3-10.2 [facility] Comment on above: Performed By: #### 1 2670473, 08401452, 2791969, 0364455179, 84385047, 2232060, 0981306355, 3916787304, 8891155073, 3779022 #### [facility] (DEFAULT) [address] [place] [address] 84169 RBC 5.07 x10 Normal 3.70-5.30 [facility] Comment on above: Performed By: #### 1 3719834, 70180395, 6698250, 0799759489, 75840940, 6499807, 1596921575, 5097930873, 9534819653, 5135867 #### [facility] (DEFAULT) [address] [place] [address] 84495 WBC 5.7 x10 Normal 3.5-10.5 [facility] Comment on above: Performed By: #### 1 9428220, 67505665, 1326125, 4527775263, 33594111, 0309071, 1888021714, 8640005254, 2397321225, 9930776 #### [facility] (DEFAULT) [address] [place] [address] 20025 CMP Standardon 03-09-2022 eGFR Non AA >60 Invalid Interpretation Code [facility] Comment on above: Performed By: #### 1 2100584, 04432953, 0865469, 4993303355, 46303399, 9040566, 1203505223, 4112467578, 0387625365, 2556326 #### [facility] (DEFAULT) [address] [place] [address] 28257 eGFR AA >60 Invalid Interpretation Code [facility] Comment on above: Result Comment: [employer] susie Kidney disease could be indicated at eGFRs of less than 60 ml/min/1.73m2. Kidney Failure is indicated at less than 15 ml/min/1.73m2 Performed By: #### 1 2429584, 65240517, 1341276, 3443159013, 31670672, 4663890, 0195961634, 5897078765, 9010584645, 5033585 #### [facility] (DEFAULT) [address] [place] [address] 67473 Albumin [Mass/Vol] 4.5 g/dL Normal 3.5-5.0 [facility] Comment on above: Performed By: #### 1 3457544, 25238040, 8140976, 3959027222, 58154184, 7731703, 0277428924, 9079104545, 3872717737, 5864260 #### [facility] (DEFAULT) [address] [place] [address] 88958 Albumin/Globulin [Mass ratio] 1.2 {ratio} Low 1.4-2.6 [facility] Comment on above: Performed By: #### 1 4623598, 64481310, 0723972, 1803592024, 02518852, 5567936, 7374518828, 9282636658, 1191815282, 4921989 #### [facility] (DEFAULT) [address] [place] [address] 40142 Alk Phos 52 IU/L Normal 32-91 [facility] Comment on above: Performed By: #### 1 5320376, 96670944, 3767038, 3330237586, 70750171, 0152333, 7018485003, 4646214829, 3170454432, 4489368 #### [facility] (DEFAULT) [address] [place] [address] 70190 ALT [Catalytic activity/Vol] 37.0 U/L Normal 14.0-54.0 [facility] Comment on above: Performed By: #### 1 9881435, 56130869, 5347652, 7015543178, 67023853, 6350407, 4770690160, 7082287956, 8783476690, 4573140 #### [facility] (DEFAULT) [address] [place] [address] 12688 Anion gap [Moles/Vol] 18.0 mmol/L Normal 5.0-19.0 [facility] Comment on above: Performed By: #### 1 2300506, 04092628, 7839080, 7464895950, 32573753, 6424521, 5890650853, 1924597415, 3833343574, 4936844 #### [facility] (DEFAULT) [address] [place] [address] 44467 AST [Catalytic activity/Vol] 29 U/L Normal 15-41 [facility] Comment on above: Performed By: #### 1 7484096, 23046516, 9562997, 1278155797, 16040401, 6491489, 8203852932, 6033763456, 4012648675, 0298442 #### [facility] (DEFAULT) [address] [place] [address] 74539 Bili Total 0.7 mg/dL Normal 0.3-1.2 [facility] Comment on above: Performed By: #### 1 3929708, 57528859, 0824038, 7273070338, 10215002, 3625837, 4260179935, 3185359800, 0173538770, 8455228 #### [facility] (DEFAULT) [address] [place] [address] 34458 Calcium [Mass/Vol] 9.4 mg/dL Normal 8.9-10.3 [facility] Comment on above: Performed By: #### 1 9794989, 10369858, 1415251, 9083545364, 96535541, 8398184, 9156130757, 2740697590, 8489816909, 2171140 #### [facility] (DEFAULT) [address] [place] [address] 49513 Chloride [Moles/Vol] 100 mmol/L Low 101-111 [facility] Comment on above: Performed By: #### 1 1717588, 06403368, 6880256, 1791363084, 28466243, 0672386, 4212818819, 2551611636, 9319533850, 5112815 #### [facility] (DEFAULT) [address] [place] [address] 76739 CO2 [Moles/Vol] 24 mmol/L Normal 21-32 [facility] Comment on above: Performed By: #### 1 5174955, 89768979, 8597054, 5739178815, 03034445, 5763898, 2692713710, 5999239077, 0924515976, 6583167 #### [facility] (DEFAULT) [address] [place] [address] 65706 Creatinine [Mass/Vol] 0.75 mg/dL Normal 0.60-1.30 [facility] Comment on above: Performed By: #### 1 0348908, 84696045, 5443920, 9014593547, 02663890, 3620216, 6142790362, 2845614988, 6689903961, 4204686 #### [facility] (DEFAULT) [address] [place] [address] 19966 Globulin (S) [Mass/Vol] 3.9 g/dL Normal 1.5-4.3 [facility] Comment on above: Performed By: #### 1 4358909, 20045357, 7269931, 0954047694, 15565455, 0738518, 1934737864, 2238757578, 9791495693, 4050180 #### [facility] (DEFAULT) [address] [place] [address] 82790 Glucose [Mass/Vol] 98.0 mg/dL Normal 74.0-118.0 [facility] Comment on above: Performed By: #### 1 5089263, 85797653, 3967868, 3213438069, 99179729, 4503772, 0509316973, 2077246235, 4537579958, 7981790 #### [facility] (DEFAULT) [address] [place] [address] 15503 Osmolality 274 mOsm/L Invalid Interpretation Code [facility] Comment on above: Performed By: #### 1 0654500, 93691915, 9152178, 2834132152, 59431842, 3470724, 3360866330, 0512581111, 5055042817, 9033687 #### [facility] (DEFAULT) [address] [place] [address] 81536 Potassium [Moles/Vol] 3.5 mmol/L Low 3.6-5.1 [facility] Comment on above: Performed By: #### 1 1938654, 62955077, 7660333, 2597451106, 31042916, 4536643, 2974941749, 3810553138, 7997383768, 0475740 #### [facility] (DEFAULT) [address] [place] [address] 21393 Protein [Mass/Vol] 8.4 g/dL High 6.5-8.1 [facility] Comment on above: Performed By: #### 1 8032150, 79672961, 4029562, 1564355088, 65997812, 8909271, 7129917148, 5879202395, 5785331122, 2975892 #### [facility] (DEFAULT) [address] [place] [address] 51826 Sodium [Moles/Vol] 138.0 mmol/L Normal 136.0-144.0 [facility] Comment on above: Performed By: #### 1 9089546, 62261802, 4024639, 2480242651, 69512763, 8723791, 0942975809, 7008728675, 3210525538, 7319019 #### [facility] (DEFAULT) [address] [place] [address] 21035 Urea nitrogen [Mass/Vol] 7 mg/dL Low 8-26 [facility] Comment on above: Performed By: #### 1 9046168, 15228154, 0875979, 8832324712, 44440954, 0759809, 7948976460, 8706368925, 8798030081, 4271233 #### [facility] (DEFAULT) [address] [place] [address] Urea nitrogen/Creatinine [Mass ratio] 9.0 mg/mg Normal 4.6-16.2 [facility] Comment on above: Performed By: #### 1 0437596, 08843446, 2664996, 3067701835, 26673389, 0827098, 0364983977, 7075233984, 8558552828, 1158013 #### [facility] (DEFAULT) [address] [place] [address] 54254 ED Clinical Summaryon 2021 ED Clinical Summary [facility] - Emergency Department [address] [place] [address] 74409 ED Clinical Summary PERSON INFORMATION Name: DIANE JOYCE Age: 26 Years Sex: FEMALE : 1995 MRN: Acct#: Visit Reason: Vaginal bleeding - < 20 wks ; BLEEDING, Arrival: 03/09/2022 15:56:59 Discharge: 03/09/2022 18:28:00 LOS: 000 02:32 Check In: 03/09/2022 15:56:59 Checkout:03/09/2022 18:28:00 Address: [address] [place] [address] PCP: Provider, None PROVIDER INFORMATION Provider Role [...] or bladder. States that she follows with boiler assistant operator in [place] Dr. Min, contacted his office and they [...] intact, SARINA: -Sclera conjunctiva: Unremarkable. NECK: -Supple (vedf-az-jjikm): non-tender. CARD: -Rate and rhythm: Regular -Edema: [...] the patient recommended close follow-up with her boiler assistant operator and outpatient beta hCG. In the meantime no strenuous ac (more content not included)... Normal [facility] ED Note - Physicianon 2021 [...] or bladder. States that she follows with boiler assistant operator in [place] Dr. Min, contacted his office and they [...] intact, SARINA: -Sclera conjunctiva: Unremarkable. NECK: -Supple (dyeo-yq-bdgln): non-tender. CARD: -Rate and rhythm: Regular -Edema: [...] the patient recommended close follow-up with her boiler assistant operator and outpatient beta hCG. In the meantime no strenuous activity, sexual activity if having any worsening issues I recommended he return to the emergency department or going directly to boiler assistant operator. Patient indicated she understood was in [...] AA >60 (more content not included)... Normal [facility] ED Note-Nursingon 03-09-2022 Beta HCG [...] patients second , 1 live . Normal [facility] ED Patient Summaryon 022 ED Patient Summary [facility] - Emergency Department [address] [place] [address] PATIENT DISCHARGE INSTRUCTIONS Patient Information Name: DIANE JOYCE Age: 26 Years Date of : 1995 [facility]: [id number] Reason For Visit: Vaginal bleeding - < 20 wks ; BLEEDING, Arrival Time: 03/09/2022 15:56:59 Primary Care Physician: Provider, None Attending Physician: Adrian Rosales MD Comment: Visit Diagnosis: Diagnoses This Visit Elevated blood pressure reading (R03.0) First trimester (Z34.91) Threatened miscarriage in early (O20.0) Vaginal bleeding (N93.9) Vaginal bleeding - < 20 wks ([id number]) Prescription Information: If you have been given a prescription for narcotics, seek immediate medical attention if you have any difficulty breathing or any sudden status changes such as confusion and sleepiness. If you or anyone you know is experiencing suicidal thoughts, mental health, alcohol and/or drug addiction problems; contact the [facility] 21/05 Crisis Hotline -Bjpz 9SWNG hf [phone]. If you received any narcotics, sedation, or [...] documents With: Address: When: Follow-up with your boiler assistant operator for reevaluation next few days. Within 1 to 2 days Comments: Follow-up with boiler assistant operator for reevaluation next few days for reevaluation and outpatient quantitative hCG. Return immediately for any worsening issues such as increasing abdominal pains, increasing vaginal bleeding, fevers, or any other problems. With: Address: When: Stephanie Padilla Within 3 to 5 days Comments: Prot[employer] Medication Information: The exam and treatment you received today in the [facility] Emergency Department were for an urgent problem and are not intended as complete care. It is important for you to follow up with a doctor, nurse practitioner, or physician?s mobile sales assistant for ongoing care. If your [...] so we can reach you if necessary. [facility] Emergency Department has provided you with a complete list of medications post discharge. Please inform your ground support equipment fitter/provider of your visit and for further instruction [...] The sec (more content not included)... Normal [facility] Extra Greenon 03-09-2022 Tube Collected Yes Invalid Interpretation Code [facility] Comment on above: Performed By: #### 1 4592918, 89452829, 8054738, 8939094140, 18104457, 3793648, 1361883897, 0524038731, 4704031168, 5029649 #### [facility] (DEFAULT) [address] [place] [address] PT/PTTon 03-09-2022 INR Coag (PPP) [Relative time] 0.95 {INR} Normal 0.91-1.11 [facility] Comment on above: Performed By: #### 1 9360147, 87576303, 5966553, 2753617127, 00197888, 9994128, 0627067878, 6181788532, 0101876779, 2143397 #### [facility] (DEFAULT) [address] [place] [address] PT 10.3 second(s) Normal 9.7-11.8 [facility] Comment on above: Performed By: #### 1 5027584, 00084238, 3331799, 7761642603, 21608392, 6682250, 6576822446, 1758967641, 0558976484, 3698386 #### [facility] (DEFAULT) [address] [place] [address] PTT 34 second(s) Normal 25-35 [facility] Comment on above: Performed By: #### 1 5419287, 78154531, 8282938, 1090214120, 35488836, 6977303, 3006995872, 2045093431, 9670575452, 2654344 #### [facility] (DEFAULT) [address] [place] [address] RhIG.on 03-09-2022 RhIG. No. Vials RhI RhIG Candidate?: No Date to Give: [id number] RhIG Status: RhIG Ready Normal [facility] Comment on above: Performed By: #### 1 5337567, 19374946, 1501801, 4484341632, 88571143, 5158853, 1745643546, 3464069626, 7228360047, 4336695 ####[facility] (DEFAULT)[address] [place] [address] UA [id number] 03-09-2022 UA Amorph. 1+ [facility] Comment on above: Order Comment: Urina lysis Microscopic order added on by Discern Expert Rules system. Performed By: #### 5 0853168, 1434323, 8255273256 ####[facility] (DEFAULT)[address] [place] [address] UA Bacteria 2+ [facility] Comment on above: Order Comment: Urina lysis Microscopic order added on by Discern Expert Rules system. Performed By: #### 5 4464495, 8043492, 9648999155 ####[facility] (DEFAULT)[address] [place] [address] UA Mucous 3+ [facility] Comment on above: Order Comment: Urina lysis Microscopic order added on by Discern Expert Rules system. Performed By: #### 5 0956604, 9471876, 9315986807 ####[facility] (DEFAULT)[address] [place] [address] UA RBC >100 [facility] Comment on above: Order Comment: Urina lysis Microscopic order added on by Discern Expert Rules system. Performed By: #### 5 8704340, 6552963, 5487263131 ####[facility] (DEFAULT)[address] [place] [address] UA Squam Epi Many [facility] Comment on above: Order Comment: Urina lysis Microscopic order added on by Discern Expert Rules system. Result Comment: DMITRY VERGARA RN IN ER. RUN UNINALYSIS AND CULTURE ON THIS SPECIMEN. NO RECOLLECT. Performed By: #### 5 5163167, 9655496, 8137174513 ####[facility] (DEFAULT)[address] [place] [address] UA WBC 3-5 [facility] Comment on above: Order Comment: Urina lysis Microscopic order added on by Discern Expert Rules system. Performed By: #### 5 2681635, 6441656, [id number] ####[facility] (DEFAULT)[address] [place], [place] [address] UA w Culture if Ind Standard on 03-09-2022 Breakpoint UA [facility] Comment on above: Performed By: #### 1 6953990, 33960273, 0807039, 5563000036, 86696610, 0996582, 5136150056, 7631024427, 4651309309, 9664855 #### [facility] (DEFAULT) [address] [place] [address] 89293 Color (U) Yellow Normal [facility] Comment on above: Performed By: #### 1 7538949, 33298253, 5747041, 4136615210, 63849121, 2748378, 7047489403, 3359831238, 9265996374, 3113650 #### [facility] (DEFAULT) [address] [place] [address] 31769 Culture? Indicated Invalid Interpretation Code [facility] Comment on above: Result Comment: Resu lt created by rule GL_MAGR_ADD_UA_CULT Result created by rule GL_MAGR_ADD_UA_CULT Result created by rule GL_MAGR_ADD_UA_CULT1 Result created by rule GL_MAGR_ADD_UA_CULT Performed By: #### 1 0475471, 99355271, 4637720, 4798019970, 31480200, 7427336, 9274368243, 0183328096, 2815899230, 9025909 #### [facility] (DEFAULT) [address] [place] [address] 72468 Glucose (U) [Mass/Vol] Negative Normal [facility] Comment on above: Performed By: #### 1 4453852, 99975765, 0421429, 9771929001, 93220112, 6392897, 8427117969, 8488319161, 4033469428, 3311913 #### [facility] (DEFAULT) [address] [place] [address] Ketones Ql (U) 40 Normal [facility] Comment on above: Performed By: #### 1 4388653, 01833742, 4631260, 8662471613, 94689080, 5194160, 1423024654, 4231606316, 8664645222, 4601707 #### [facility] (DEFAULT) [address] [place] [address] Micro? Indicated Invalid Interpretation Code [facility] Comment on above: Result Comment: Resu lt created by rule GL_MAGR_ADD_UA_MICRO Performed By: #### 1 2833992, 18810864, 5017422, 3791436329, 65242383, 1261890, 5405825297, 5021149745, 3751324500, 9358137 #### [facility] (DEFAULT) [address] [place] [address] UA Bilirubin Negative Normal [facility] Comment on above: Performed By: #### 1 5050922, 05776527, 7331832, 9003534084, 38546971, 1284333, 9422318941, 7369880469, 6501303900, 4824924 #### [facility] (DEFAULT) [address] [place] [address] UA Blood LARGE Abnormal NEGATIVE [facility] Comment on above: Performed By: #### 1 [id number], [id number], [id number], [id number], [id number], [id number], [id number], [id number], [id number], [id number] #### [facility] (DEFAULT) [address] [place] [address] UA Clarity SL CLOUDY Abnormal CLEAR [facility] Comment on above: Performed By: #### 1 [id number], [id number], [id number], [id number], [id number], [id number], [id number], [id number], [id number], [id number] #### [facility] (DEFAULT) [address] [place] [address] UA Leuk Est TRACE Abnormal NEGATIVE [facility] Comment on above: Performed By: #### 1 [id number], [id number], [id number], [id number], [id number], [id number], [id number], [id number], [id number], [id number] #### [facility] (DEFAULT) [address] [place] [address] UA Nitrite Negative Normal NEGATIVE [facility] Comment on above: Performed By: #### 1 [id number], [id number], [id number], [id number], [id number], 2235700, [id number], [id number], [id number], [id number] #### [facility] (DEFAULT) [address] [place] [address] UA pH 6.5 Normal 5-8 [facility] Comment on above: Performed By: #### 1 [id number], [id number], 2675901, [id number], [id number], 6079243, [id number], [id number], [id number], [id number] #### [facility] (DEFAULT) [address] [place] [address] UA Protein Negative Normal NEGATIVE [facility] Comment on above: Performed By: #### 1 [id number], [id number], [id number], [id number], 87793138, 7498256, [id number], [id number], [id number], [id number] #### [facility] (DEFAULT) [address] [place] [address] UA Spec Grav 1.015 Normal 1.001-1.035 [facility] Comment on above: Performed By: #### 1 [id number], [id number], 2509297, [id number], 58614386, 3544021, [id number], [id number], [id number], [id number] #### [facility] (DEFAULT) [address] [place] [address] UA Urobilinogen 0.2 mg/dL Normal 0.2-1.0 [facility] Comment on above: Performed By: #### 1 [id number], [id number], 5668415, [id number], [id number], 2997565, [id number], [id number], [id number], [id number] #### [facility] (DEFAULT) [address] [place] [address] Urine Source Clean Catch [facility] Comment on above: Performed By: #### 1 [id number], [id number], 7658187, [id number], 18516566, 2409370, [id number], [id number], [id number], [id number] #### [facility] (DEFAULT) [address] [place] [address] US 1st Trimesteron 03-09-2022 US 1st Trimester [...] Signature): Sebastian Guzman 03/09/22 6:10 pm Technologist: [facility] US Transvaginalon 03-09-2022 US Transvaginal EXAM: [...] Guzman 03/09/22 6:10 pm Technologist: PM Normal [facility] hCG Quantitativeon 2 hCG Quantitative 7.1 mIU/mL High 0.0-0.6 [facility] Comment on above: Result Comment: Post -Menopausal Reference Range is: 0.1-11.6 mIU/mL Performed By: #### 1 [id number], [id number], [id number], [id number], 49794947, 6229441, [id number], [id number], [id number], [id number] #### [facility] (DEFAULT) [address] [place] [address] Vital Signs Date Time Vital Sign Value Performing Clinician Facility 12-13-2023 15:00-0500 Body mass index (BMI) [Ratio] 46.69 kg/m2 [facility] Nurse [facility] 12-13-2023 15:00-0500 Body weight 123.38 kg [facility] Nurse [facility] 12-13-2023 15:00-0500 Diastolic blood pressure 78 mm[Hg] [facility] Nurse [facility] 12-13-2023 15:00-0500 Systolic blood pressure 128 mm[Hg] [facility] 05-15-2023 18:30-0400 Body height 161.29 cm Linsey Witt Other [facility] Other 05-15-2023 18:30-0400 Body mass index (BMI) [Ratio] 43.41 kg/m2 Linsey Witt Other [facility] Other 05-15-2023 18:30-0400 Body temperature 99.2 [degF] Linsey Witt Other [facility] Other 05-15-2023 18:30-0400 Body weight 112.95 kg Linsey Witt Other [facility] Other 05-15-2023 18:30-0400 Respiratory rate 18 /min Linsey Witt Other [facility] Other 05-15-2023 18:30-0400 SaO2% (BldA) [Mass fraction] 99 % Linsey Witt Other [facility] Other 05-09-2023 11:00-0400 Body height 161.29 cm Gissel Santana Other [facility] Other 05-09-2023 11:00-0400 Body mass index (BMI) [Ratio] 43.59 kg/m2 Gissel Santana Other [facility] Other 05-09-2023 11:00-0400 Body weight 113.4 kg Gissel Santana Other [facility] Other 05-09-2023 11:00-0400 Diastolic blood pressure 83 mm[Hg] Gissel Santana Other [facility] Other 05-09-2023 11:00-0400 Systolic blood pressure 119 mm[Hg] Gissel Santana Other [facility] Other 04-12-2023 09:00-0400 Body height 161.29 cm Gissel Lamin Other [facility] Other 04-12-2023 09:00-0400 Body mass index (BMI) [Ratio] 43.59 kg/m2 Gissel Santana Other [facility] Other 04-12-2023 09:00-0400 Body weight 113.4 kg Gissel Santana Other [facility] Other 04-12-2023 09:00-0400 Diastolic blood pressure 88 mm[Hg] Gissel Santana Other [facility] Other 04-12-2023 09:00-0400 Systolic blood pressure 129 mm[Hg] Gissel Santana Other [facility] Other 10-11-2022 02:06-0500 Body weight 111.[address] ESTELLA MIN . [facility] Comment on above: Performed By: #### AFPMAT #### [facility] [address] [place] [address] Dr. Alexsander Dickinson Encounters Encounter Date Encounter [...] 11-06-2023 End: 11-06-2023 ambulatory Gissel Santana Other [facility] Other Start: 11-06-2023 Encounter by compute r link Gissel Santana [facility] Start: 05-22-2023 End: 05-22-2023 ambulatory Olive Howard Other [facility] Other Start: 05-22-2023 Telephone encounter Olive Howard [facility] Start: 05-15-2023 End: 05-15-2023 ambulatory Linsey Witt Facility:[facility] Start: 05-15-2023 End: 05-15-2023 Departed [employer] ARCHITECTGideon Witt Work Phone: [facility] [place] Work Phone: Start: 05-15-2023 End: 05-15-2023 ambulatory TERESA Witt Work Phone: [facility] Work Phone: Start: 05-15-2023 Office outpatient vi sit 25 minutes Linsey Witt [facility] Start: 05-09-2023 End: 05-09-2023 ambulatory Gissel Santana Other [facility] Other Start: 05-09-2023 Office outpatient vi sit 15 minutes Gissel Santana [facility] Start: 04-12-2023 End: 04-12-2023 ambulatory Gissel Santana Other [facility] Other Start: 04-12-2023 Encounter for genera l adult medical examination without abnormal findings Gissel Santana [facility] Start: 04-12-2023 Periodic preventive med est patient 18-39 yrs Gissel Santana [facility] Start: 02-15-[address] ESTELLA [...] EDT Routine [facility] [address] [place] [id number] Estella Min, DO [address] [place] [address] [facility] Start: 12-13-2023 End: 12-13-2024 [...] Missed menses Expected: 12/13/2023 (Approximate), Expires: 12/13/2024 [facility] Comment on above: Expected: 12/13/2023 (Approximate), Expires: 12/13/2024 Start: 12-13-2023 End: 12-13-2024 US Pelvis transvaginal US OB transvaginal Imaging Routine Missed menses Expected: 12/13/2023 (Approximate), Expires: 12/13/2024 [facility] Comment on above: Expected: 12/13/2023 (Approximate), Expires: 12/13/2024 Start: 05-15-2023 Throat culture Throat Culture [facility] Bacteria identified in Urine by Culture Urine culture Microbiology Routine Missed menses Ordered: 12/13/2023 [facility] Comment on above: Ordered: 12/13/2023 CBC W Auto Different ial panel - Blood CBC and differential Lab Routine Missed menses Ordered: 12/13/2023 [facility] Comment on above: Ordered: 12/13/2023 Hemoglobin A1c/Hemoglobin.total in Blood Hemoglobin A1c Lab Routine Missed menses Ordered: 12/13/2023 [facility] Comment on above: Ordered: 12/13/2023 Hepatitis B virus surface Ag [Presence] in Serum or Plasma by Immunoassay Hepatitis B surface antigen Lab Routine Missed menses Ordered: 12/13/2023 [facility] Comment on above: Ordered: 12/13/2023 Hepatitis C virus Ab [Presence] in Serum or Plasma by Immunoassay Hepatitis C antibody Lab Routine Missed menses Ordered: 12/13/2023 [facility] Comment on above: Ordered: 12/13/2023 HIV-1/HIV-2 antigen/antibody combination immunoassay HIV-1 and HIV-2 antibodies Lab Routine Missed menses Ordered: 12/13/2023 [facility] Comment on above: Ordered: 12/13/2023 Reagin Ab [Presence] in Serum by RPR RPR Lab Routine Missed menses Ordered: 12/13/2023 [facility] Comment on above: Ordered: 12/13/2023 Rubella antibody, IgG Rubella an tibody, IgG Lab Routine Missed menses Ordered: 12/13/2023 [facility] Comment on above: Ordered: 12/13/2023 Payers Date Payer Category Payer Unknown BCBS BCBS xxxxxx [id number] 2020-Present [phone] [address] [place] [address] [id number] 1994 Unknown [id number] 2.16.840.1.219980.3.579.2.593 1994 Unknown [id number] 2.16.840.1.159643.3.579.2.593 1994 Unknown [id number] 2.16.840.1.889262.3.579.2.593 1994 Unknown [id number] 2.16.840.1.033928.3.579.2.593 1994 Unknown [id number] 2.16.840.1.023362.3.579.2.593 1994 Unknown [id number] 2.16.840.1.212311.3.579.2.593 1994 Unknown [id number] 2.16.840.1.592900.3.579.2.593 1994 Unknown [id number] 2.16.840.1.668382.3.579.2.593 1994 Unknown [id number] 2.16.840.1.528265.3.579.2.593 1994 Unknown [id number] 2.16.840.1.305923.3.579.2.593 1994 Unknown [id number] 2.16.840.1.391773.3.579.2.593 1994 Unknown [id number] 2.16.840.1.043316.3.579.2.593 1994 Unknown [id number] 2.16.840.1.489446.3.579.2.593 1994 Unknown [id number] 2.16.840.1.340457.3.579.2.593 1994 Unknown [id number] 2.16.840.1.973599.3.579.2.593 1994 Unknown [id number] 2.16.840.1.420809.3.579.2.593 1994 Unknown [id number] 2.16.840.1.233121.3.579.2.593 1994 Unknown [id number] 2.16.840.1.415059.3.579.2.593 1994 Unknown [id number] 2.16.840.1.188828.3.579.2.593 1994 Unknown [id number] 2.16.840.1.892147.3.579.2.593 1994 Unknown [id number] 2.16.840.1.218963.3.579.2.593 1994 Unknown [id number] 2.16.840.1.620038.3.579.2.593 1994 Unknown [id number] 2.16.840.1.161134.3.579.2.593 1994 Unknown [id number] 2.16.840.1.976758.3.579.2.593 1994 Unknown [id number] 2.16.840.1.721445.3.579.2.1259 1994 Unknown [id number] 2.16.840.1.024792.3.579.2.1259 1994 Unknown [id number] 2.16.840.1.737559.3.579.2.1259 1994 Unknown [id number] 2.16.840.1.605340.3.579.2.1259 1994 Unknown [id number] 2.16.840.1.254610.3.579.2.1259 1994 Unknown [id number] 2.16.840.1.819702.3.579.2.1259 1994 Unknown [id number] 2.16.840.1.941297.3.579.2.1259 1994 Unknown [id number] 2.16.840.1.795388.3.579.2.1259 1994 Unknown [id number] 2.16.840.1.259690.3.579.2.1259 1959 Self-pay 1959 Unknown [id number] Unknown [id number] 2.16.840.1.360000.3.579.2.593 Unknown [id number] 2.16.840.1.972997.3.579.2.531 Social History Date Type Detail Facility Unknown if ever smoked [facility] Other Start: 03-12-2023 Sex Assigned At N [facility] Other Start: 1995 Sex Assigned At Female F [facility] Start: 03-12-2023 Tobacco smoking status MIIS Never smoked tobacco [facility] Start: 03-12-2023 [...] or undercooked meat, and stay away from [facility]. Patient has also been advised to [...] Meenakshi Rosenthal MA documented in this encounter [facility] 05-15-2023 Evaluation note Encounter Date [...] understanding and is agreeable to treatment plan. [facility] Other 07-12-2023 Evaluation note* Encounter Date Diagnosis Assessment Notes Treatment Notes Treatment Clinical Notes Apr, Anxiety disorder, unspecified (ICD-10 - F41.9) Pt states that she, and her , agree that she is doing better on the medication. Continues to have stress, but is dealing more appropriately. Would like to continue this med and this dose. f/u6 months, sooner if needed. [facility] Other 06-15-2023 Evaluation note* Encounter Date Diagnosis [...] help for overwhelm. followup in 1 month [facility] Other 05-12-2022 NoteEducation Materials Cardiovascular Hypertension, Adult [...] without skin, beans, e (more content not included)...[facility] HospitalEvaluation noteNo assessment information availableC[facility] Work Phone: Evaluation noteNo InformationNortEndless [facility] Other Evaluation note* Diagnosis Missed menses documented in this encounter [facility] N[facility]ative - Reported* Type Description Date Surgical History C-sect 2019 Surgical History C-sect 2022 [facility] Other History general Narrative - Reported* Type Description Date Medical History Anxiety disorder, unspecified Surgical History C-sect 2019 Surgical History C-sect 2022 Hospitalization History SEE SURGICAL [facility] Other History general Narrative - Reported* Type Description Date Medical History Anxiety disorder, unspecified Medical History Gestational diabetes Surgical History C-sect 2019 Surgical History C-sect 2022 Hospitalization History SEE SURGICAL [facility] Other Summary Purpose Family History No Family History Records FoundNo Family History Records FoundNo Family History Records FoundNo Family History Records Found Advance Directives No Advanced Directives Records FoundNo Advanced Directives Records FoundNo Advanced Directives Records FoundNo Advanced Directives Records Found Additional Source Comments INFORMATION SOURCE (unrecogn ized section and content) DATE CREATED AUTHOR 03/18/2022 [facility] DATE CREATED AUTHOR AUTHOR'S ORGANIZ ATION 02/15/2023 [facility] DATE CREATED AUTHOR AUTHOR'S ORGANIZ ATION 05/24/2023 [facility] DATE CREATED AUTHOR AUTHOR'S ORGANIZ ATION 06/21/2024 [facility] d[facility] Specialists EPIC REASON FOR VISIT (unrecogniz ed section and content) Reason Comments Amenorrhea Care Teams (unrecognized sec tion and content) Team Status: Inactive Member Role Status Dates Linsey Witt APRN Attending Provider Active Flow Worker Relationship Specialty Start Date End Date Gissel Santana MD [address] [place] [address] PCP - General Family Medicine [...] BE BASED ON THE PRIMARY CLINICAL RECORDS. [facility]. provides no warranty or guarantee of the accuracy or completeness of information in this document.
[2024-06-27] MEDS: 0.9 % SODIUM CHLORIDE 1,000 ML 1000 ML IV (13:40)
[2024-06-27] MEDS: FAMOTIDINE/PF 20 MG/2 ML VIAL IV (13:42)
[2024-06-27] MEDS: CITRIC ACID/SODIUM CITRATE 30 ML SOLUTION ORACIT SHOHL'S SOLN PO (13:42)
[2024-06-27 13:45] LABS: Basophils Percent Auto 0.3 % (0.2-2.0); Eosinophils Percent Auto 0.3 % (0.9-7.0); Hematocrit 33.5 % (36.0-48.0); Hemoglobin 10.5 g/dL (12.0-16.0); Immature Granulocytes Abs Auto 0.04 10^3/uL (0.00-0.03); Immature Granulocytes Pct Auto 0.4 % (0.0-0.5); Lymphocytes Percent Auto 21.1 % (20.5-60.0); Mean Corpuscular HGB Conc 31.3 g/dL (29.9-35.2); Mean Corpuscular Hemoglobin 24.5 pg (26.7-34.0); Mean Corpuscular Volume 78.3 fL (81.0-99.0); Mean Platelet Volume 11.1 fL (9.5-13.5); Monocytes Absolute Auto 0.4 10^3/uL (0.3-0.8); Monocytes Percent Auto 4.7 % (1.7-12.0); Neutrophils Absolute Auto 6.9 10^3/uL (1.4-6.5); Neutrophils Percent Auto 73.2 % (43.0-75.0); Platelet Count 316 10^3/uL (150-450); Red Blood Count 4.28 10^6/uL (4.20-5.40); Red Cell Distribution Width 13.9 % (11.0-15.0); White Blood Count 9.4 10^3/uL (4.0-11.0)
[2024-06-27 13:47] LABS: Bilirubin Urine NEGATIVE (NEGATIVE); Blood Urine NEGATIVE (NEGATIVE); Clarity Urine CLEAR (CLEAR); Color Urine LT. YELLOW (YELLOW); Glucose Urine UA NEGATIVE (NEGATIVE); Ketones Urine 15 mg/dL (NEGATIVE); Leukocyte Esterase Urine NEGATIVE (NEGATIVE); Nitrite Urine NEGATIVE (NEGATIVE); Protein Urine NEGATIVE (NEG/TRACE); Specific Gravity Urine 1.015 (1.005-1.025); Urobilinogen Urine 0.2 EU/dL (0.2-1.0); pH Urine 6.5 (5.0-9.0)
[2024-06-27] MEDS: CEFAZOLIN SODIUM/DEXTROSE,ISO 2 GM/50 ML PIGGYBACK IV ×2 (13:47→20:26)
[2024-06-27 13:56] LABS: Bacteria Urine TRACE #/HPF (NONE SEEN); Cast Seen? NONE SEEN #/LPF (NONE SEEN); Crystals Seen? None Seen #/HPF (None Seen); Mucus Urine TRACE (NONE SEEN); RBC Urine 0-2 #/HPF (0-2); Squamous Epithelial Cell Urine MANY #/LPF (NONE/RARE); Urine Culture Indicated NO; WBC Urine NONE SEEN #/HPF (NONE SEEN)
[2024-06-27 13:57] LABS: Amphetamine Screen Urine NEGATIVE (NEGATIVE); Barbiturates Screen Urine NEGATIVE (NEGATIVE); Benzodiazepines Screen Urine NEGATIVE (NEGATIVE); Buprenorphine Screen Urine NEGATIVE (NEGATIVE); Cannabinoid Screen Urine NEGATIVE (NEGATIVE); Cocaine Screen Urine NEGATIVE (NEGATIVE); Methadone Screen Urine NEGATIVE (NEGATIVE); Methamphetamines Screen Urine NEGATIVE (NEGATIVE); Opiate Screen Urine NEGATIVE (NEGATIVE); Oxycodone Screen Urine NEGATIVE (NEGATIVE); Phencyclidine Screen Urine NEGATIVE (NEGATIVE); Tricyclic Antidepressant Urine NEGATIVE (NEGATIVE)
[2024-06-27] MEDS: LACTATED RINGER'S SOLUTION 1,000 ML 50 ML IV (14:17)
--- NOTE | 2024-06-27 14:44 | P.OBPRC_ITS ---
Procedure Pre-op/Post-op diagnoses: Pre-Op/Post-Op Diagnoses Operation Date: 06/27/24 14:00 <No data on this case meets the specified criteria> Procedure: Procedures Operation Date: 06/27/24 14:00 Actual Procedure Side Surgeon p Repeat with Bilateral Salpingectomy Bilateral Adis Min DO Regional Sales Associate: Dotty Main Estimated blood loss (mL): 575 Disposition: PACU Anesthesia type: Spinal
--- NOTE | 2024-06-27 14:44 | PM.ONB ---
Brief Operative Note Date of procedure: 06/27/24 Pre-op diagnosis general: iup at 37 1/7wks, preeclampsia, third trimester vaginal bleeding, previous c/s, desires sterilization Post-op diagnosis: same as pre-op Procedure: NAME OF PROCEDURE: [ section with bilateral salpingectomy ] PROCEDURE: Patient was taken back to the Operating Room where she was given a spinal anesthesia with Duramorph without difficulty. She was prepped and draped in the normal sterile fashion. A Pfannenstiel skin incision was then made 2?cm above the symphysis pubis and carried down to underlying rectus fascia using a Bovie. The fascia was incised in the midline and extended laterally using Dutta scissors. Two Win clamps were placed on the superior aspect of the fascia and dissected off the underlying rectus muscles. The same was performed on the inferior aspect as well. The muscles were then in the midline. Peritoneum was identified and entered bluntly. The peritoneum was then extended superiorly and inferiorly with good visualization of the bladder. The bladder blade was inserted. Vesicouterine peritoneum was identified, tented up, and entered with Metzenbaum scissors. A bladder flap was then created digitally. The bladder blade was reinserted. A low transverse incision was made on the patient's uterus and extended laterally digitally. The infant was then delivered atraumatically after the bladder blade was removed in the cephalic position. The cord was clamped and cut. Cord blood was obtained. The infant was handed off to awaiting team. The patient's placenta was spontaneously delivered. The uterus was then exteriorized. The uterus was cleared of all clots and debris. The bladder blade was reinserted. The patient's uterine incision was closed using #0 Vicryl in a running lock fashion. Excellent hemostasis was assured.? The rt tube was identified and grasped with babock, the ligasure was used to transect and ligate the tube in its entirity, this was done on the contralateral side as well. The uterus was then returned to the patient's abdomen. The patient's abdomen was copiously irrigated using warm saline. Peritoneal gutters were cleared of all clots and debris. Again excellent hemostasis was assured. The patient's fascia was closed using #0 Vicryl in a running fashion. The patient's skin was closed using 4-0 Vicryl subcuticularly. The patient tolerated the procedure well. Sponge, lap, and needle counts were correct x2. The patient was taken to the Recovery Room in stable condition. Anesthesia: spinal Surgeon: Adis Min Customer Quality Engineer: Dotty Main Estimated blood loss (mL): 575 Pathology: other (placenta and tubes) Condition: stable Disposition: PACU Urinary Catheter Management Urinary Catheter Management Urethral: Cath placed during this visit: no
[2024-06-27] MEDS: OXYTOCIN/0.9 % SODIUM CHLORIDE 20 UNITS/1,000 ML PLAST..BAG 125 UNIT IV (15:23)
--- NOTE | 2024-06-27 18:45 | PC.NURSE ---
1317 type B section called by dr lemon. iv begun on third attempt in lt AC, blood drawn off, hair removal done, scds applied
--- NOTE | 2024-06-27 19:18 | W.PC.ACHO ---
Registration Status: ADM IN Primary Language: Citizen Of [place] Preferred Language: Citizen Of [place] Report given on post-op status, fundus, SCD's, Meds & I/O Active Medications Generic Name Dose Route Start Last Admin Trade Name Freq PRN Reason Stop Dose Admin Al Hydroxide/Mg Hydroxide 2,400 mg 06/27/24 14:46 Magnesium Hydroxide 2,400 Mg/10 Ml Oral.Susp PO Q6H PRN Dyspepsia Diphenhydramine HCl 25 mg 06/27/24 14:46 Diphenhydramine Hcl 50 Mg/Ml Vial IV 06/28/24 14:47 Q6H PRN Itching Diphtheria/Pertussis/Tetanus Vacc 0.5 ml 06/29/24 09:00 Adacel Diph,Pertuss(Acell),Tet Vac/Pf 0.5 Ml Adult Syringe IM 06/29/24 09:01 .ONCE ONE Docusate Sodium 100 mg 06/28/24 09:00 Docusate Sodium 100 Mg Capsule PO BID GALEN Enoxaparin Sodium 40 mg 06/28/24 02:00 Enoxaparin Sodium 40 Mg/0.4 Ml Syringe SUBQ Q24H GALEN Lactated Ringer's 1,000 mls @ 50 mls/hr 06/27/24 14:30 06/27/24 14:17 Lactated Ringers IV 50 mls/hr .Q20H GALEN Administration Sodium Chloride 1,000 mls @ 125 mls/hr 06/27/24 15:00 Sodium Chloride 0.9% 1,000 Ml IV .Q8H GALEN Cefazolin Sodium/Dextrose 2 gm in 50 mls @ 100 mls/hr 06/27/24 20:00 Ancef 2 Gm Premix IV 06/27/24 20:29 ONCE ONE Promethazine HCl 25 mg/ Sodium 51 mls @ 204 mls/hr 06/27/24 14:46 Chloride IV Q6H PRN Nausea And Vomiting Oxytocin/Sodium Chloride 20 units in 1,000 mls @ 125 mls/hr 06/27/24 15:00 06/27/24 15:23 Pitocin 20 Unit/1,000 Ml-Ns IV 06/27/24 22:59 125 mls/hr Q8H GALEN Administration Ibuprofen 800 mg 06/27/24 14:46 Ibuprofen 400 Mg Tablet PO Q8H PRN Pain Ketorolac Tromethamine 30 mg 06/27/24 14:46 Ketorolac Tromethamine 30 Mg/Ml Vial IVP 06/29/24 14:47 Q6H PRN Pain Measles/Mumps/Rubella Vaccine Live 0.5 ml 06/29/24 09:00 Measles,Mumps,Rubella Vacc/Pf 0.5 Ml Vial SQ 06/29/24 09:01 .ONCE ONE Ondansetron HCl 4 mg 06/27/24 14:46 Ondansetron Pf 4 Mg/2 Ml Vial IV Q6H PRN Nausea And Vomiting Ondansetron HCl 4 mg 06/27/24 14:46 Ondansetron 4 Mg Rapdis Tablet PO Q6H PRN Nausea And Vomiting Oxycodone/Acetaminophen 1 tab 06/27/24 14:46 Oxycodone Hcl/Acetaminophen 5mg/325mg PO Q4H PRN Pain Scale 4-6 Oxycodone/Acetaminophen 2 tab 06/27/24 14:46 Oxycodone Hcl/Acetaminophen 5mg/325mg PO Q4H PRN Pain Scale 7-10 Senna 17.2 mg 06/27/24 20:00 Sennosides 8.6 Mg Tablet PO QHS PRN Constipation Simethicone 80 mg 06/27/24 14:46 Simethicone 80 Mg Tab.Chew PO QID PRN Abdominal Distention Diet Category Date Time Status Regular Consistency Diet Diet 06/27/24 14:46 Active IV Insertion/Site Date of IV Line Insertion [18g 06/27/24 left Antecubital] IV Insertion Time [18g left 13:30 Antecubital] Neurology Patient orientation (short person,place,time,situation list) Mark coma scale total score 15 [place] coma scale total score 15 Mark coma scale total score 15 Respiratory Pulse Oximetry 100 Pulse Oximetry 100 Pulse Oximetry 100 Pulse Oximetry 100 Pulse Oximetry 100 Pulse Oximetry 100 Pulse Oximetry 100 Pulse Oximetry 100 Pulse Oximetry 100 Pulse Oximetry 100 Pulse Oximetry 100 Pulse Oximetry 99 Pulse Oximetry 99 Pulse Oximetry 100 Pulse Oximetry 99 Pulse Oximetry 99 Pulse Oximetry 100 Pulse Oximetry 99 Pulse Oximetry 100 Pulse Oximetry 99 Pulse Oximetry 100 Oxygen Delivery Method Room Air Oxygen Delivery Method Room Air Oxygen Delivery Method Room Air Oxygen Delivery Method Room Air Renal Bladder Pattern Continent Catheter Urinary Catheter Date of 06/27/24 Insertion [Urethral] Urinary Catheter Time of 14:05 Insertion [Urethral]
[2024-06-27] MEDS: KETOROLAC TROMETHAMINE 30 MG/ML VIAL IVP (21:44)
[2024-06-27] MEDS: SERTRALINE HCL 50 MG TABLET PO (21:45)
[2024-06-27] MEDS: 0.9 % SODIUM CHLORIDE 1,000 ML 125 ML IV (23:32)
[2024-06-28] VITALS (9 sets, daily range): BP systolic 111–142; BP diastolic 57–85; PULSE 76–81; TEMP 35.2–36.9; O2SAT 100
[2024-06-28] MEDS: KETOROLAC TROMETHAMINE 30 MG/ML VIAL IVP ×4 (02:46→21:02)
[2024-06-28] MEDS: ENOXAPARIN SODIUM 40 MG/0.4 ML SYRINGE SUBQ (02:46)
[2024-06-28 06:26] LABS: Basophils Percent Auto 0.2 % (0.2-2.0); Eosinophils Percent Auto 0.2 % (0.9-7.0); Hematocrit 25.9 % (36.0-48.0); Hemoglobin 8.3 g/dL (12.0-16.0); Immature Granulocytes Abs Auto 0.07 10^3/uL (0.00-0.03); Immature Granulocytes Pct Auto 0.6 % (0.0-0.5); Lymphocytes Absolute Auto 2.9 10^3/uL (1.2-3.8); Lymphocytes Percent Auto 23.7 % (20.5-60.0); Mean Corpuscular Hemoglobin 25.2 pg (26.7-34.0); Mean Corpuscular Volume 78.5 fL (81.0-99.0); Mean Platelet Volume 11.1 fL (9.5-13.5); Monocytes Absolute Auto 0.7 10^3/uL (0.3-0.8); Monocytes Percent Auto 5.9 % (1.7-12.0); Neutrophils Absolute Auto 8.4 10^3/uL (1.4-6.5); Neutrophils Percent Auto 69.4 % (43.0-75.0); Platelet Count 275 10^3/uL (150-450); Red Cell Distribution Width 13.8 % (11.0-15.0); White Blood Count 12.1 10^3/uL (4.0-11.0)
--- NOTE | 2024-06-28 07:22 | PC.NURSE ---
Report given to Stalin Warren RN
[2024-06-28] MEDS: DOCUSATE SODIUM 100 MG CAPSULE PO ×2 (08:47→21:03)
--- NOTE | 2024-06-28 12:16 | PM.OBPN ---
OB - PN: Subj Subjective Patient comments: no complaints, pain well controlled, tolerating diet and flatus present [place] infant status: doing well [place] feeding status: exclusively bottle feeding Exam Constitutional Vital Signs, click to edit/add: Last Vital Signs Temp 98.5 F 06/28/24 08:06 Pulse 80 06/28/24 08:07 Resp 18 06/28/24 08:06 BP 111/60 06/28/24 08:07 Pulse Ox 100 06/28/24 04:06 O2 Del Method Room Air 06/28/24 08:10 Documenting provider has reviewed patient's vital signs: yes Common normals: no apparent distress, oriented x3, healthy appearing and alert HENMT Common normals: normocephalic and head/scalp atraumatic Eye Pupil: PERRL and accommodation reflex normal Neck & C-Spine Common normals: full ROM Respiratory Common normals: normal respiratory effort Cardio Common normals: regular rate and regular rhythm GI Common normals: Normal to inspection, nondistended, normoactive bowel sounds present, soft to palpation and non-tender Common normals: no CVA tenderness Back & Pelvis Common normals: no thoracic nor lumbar tenderness Extremity Common normals: normal to inspection, full ROM and no calf tenderness Neuro Common normals: CN's II-XII intact bilaterally, moves all extremities, no focal motor deficits and no sensory deficits noted Motor exam: strength 5/5 throughout Psych Common normals: mental status grossly normal, thought process normal, cooperative, affect normal and speech normal Results Labs Labs: Short CBC 06/27/24 06/28/24 Range/Units 13:29 06:12 WBC 9.4 12.1 H (4.0-11.0) 10^3/uL Hgb 10.5 L 8.3 L (12.0-16.0) g/dL Hct 33.5 L 25.9 L (36.0-48.0) % Plt Count 316 275 (150-450) 10^3/uL Urine 06/27/24 Range/Units 13:00 Urine Color Lt. yellow (YELLOW) Urine Clarity Clear (CLEAR) Urine pH 6.5 (5.0-9.0) Ur Specific [place] 1.015 (1.005-1.025) Urine Protein Negative (NEG/TRACE) mg/dL Urine Glucose (UA) Negative (NEGATIVE) mg/dL Urinary Catheter Management Urinary Catheter Management Urethral: Cath placed during this visit: yes Urethral indwelling: No Insertion date: 06/27/24 Insertion time: 14:05 OB - PN: A/P Assessment and Plan (1) Status post repeat low transverse section: Assessment and Plan: DOING WELL, AMBULATING, EATING VOIDING NORMALLY, SPORTS BRA ON 21/05 STRICTLY BOTTLE FEEDING, GOOD PAIN CONTROL, BONDING WELL WITH BABY Plan - day: 1 Plan: routine postop care Time Spent with Patient Time: Total time spent is greater than 50% in coordination of care (as documented) at patient's floor/unit and/or counseling patient: Total time spent with greater than 50% in coordination of care (as documented) at patient's floor/unit and/or counseling patient: less than 15 minutes
[2024-06-28] MEDS: SERTRALINE HCL 50 MG TABLET PO (21:03)
[2024-06-29] MEDS: ENOXAPARIN SODIUM 40 MG/0.4 ML SYRINGE SUBQ (02:46)
[2024-06-29] MEDS: IBUPROFEN 400 MG TABLET 800 MG PO (02:46)
[2024-06-29] MEDS: OXYCODONE HCL/ACETAMINOPHEN 5MG/325MG 1 TAB PO (07:36)
[2024-06-29 09:15] VITALS: BP 132/68; PULSE 83
[2024-06-29 09:16] VITALS: TEMP 36.2
[2024-06-29] MEDS: DOCUSATE SODIUM 100 MG CAPSULE PO (09:16)
[2024-06-29 09:40] VITALS: TEMP 36.6
--- NOTE | 2024-06-29 11:42 | P.DS_ITS ---
DS: Providers Provider Date of admission: 06/27/24 13:00 Primary care physician: Non-Staff Physician, Admitting clinician: Adis Min Discharging clinician: Summer Del Cid DS: Diagnosis Discharge Diagnosis (1) Status post repeat low transverse section: Assessment and plan: condition good, bottle feeding, wearing sports bra as directed, instructions given with stated understanding, general Covid and RSV precautions given, incision check in one week Plan as above OB - DS: Summary Hospital Course Hospital Course: uncomplicated Time spent discussing smoking cessation with patient: 3 to 10 minutes Peripartum Data - Procedures: Procedures Operation Date: 06/27/24 14:00 Actual Procedure Side Surgeon p Repeat with Bilateral Salpingectomy Bilateral Adis Min DO Peripartum Data - Vaginal Delivery Procedures: Procedures Operation Date: 06/27/24 14:00 Actual Procedure Side Surgeon p Repeat with Bilateral Salpingectomy Bilateral Adis Min DO Complications complications: none Delivery method: section Gender: female Discharge plan: home Status at Discharge Cognitive/behavioral status at discharge: wnl Functional status at discharge: independent ambulation Time Spent with Patient Time attestation: Total time spent providing and/or coordinating discharge services: Time spent: less than 30 minutes Exam Narrative Exam Narrative: voicing no complaints Constitutional Vital Signs, click to edit/add: Last Vital Signs Temp 97.8 F 06/29/24 09:40 Pulse 83 06/29/24 09:15 Resp 14 06/29/24 09:40 BP 132/68 06/29/24 09:15 Pulse Ox 100 06/28/24 04:06 O2 Del Method Room Air 06/29/24 09:40 Documenting provider has reviewed patient's vital signs: yes Common normals: no apparent distress, oriented x3, no limitations, healthy appearing, alert and well nourished [facility] Common normals: normocephalic and head/scalp atraumatic Eye Pupil: PERRL and accommodation reflex normal Neck & C-Spine Common normals: full ROM and supple Respiratory Common normals: normal respiratory effort Cardio Common normals: regular rate and regular rhythm GI Common normals: Normal to inspection, nondistended, normoactive bowel sounds present, soft to palpation and non-tender Common normals: no CVA tenderness Back & Pelvis Common normals: no thoracic nor lumbar tenderness Extremity Common normals: normal to inspection, full ROM and no calf tenderness Neuro Common normals: CN's II-XII intact bilaterally Sensorium/orientation: awake, alert, oriented to person, oriented to place and oriented to time Psych Common normals: mental status grossly normal, thought process normal, cooperative, affect normal and speech normal Discharge Plan Discharge Disposition: Home, Self-Care Condition: Good Assessment: condition good, ready for discharge, vss Health Concerns: none Plan of Treatment: discharge home Discharge Medications: Continued sertraline 50 mg tablet 50 mg PO Q24H M- Plus 27 mg iron- 1 mg tablet insulin glargine-yfgn [Semglee(insulin glarg-yfgn)Pen] 100 unit/mL (3 mL) insulin pen SUBCUT Activity: increase activity as tolerated Activity Detail: walking only exercise for six weeks Diet: regular diet Print Language: Portuguese Patient Instructions: (DC) Activity Restrictions/Additional Instructions: no sex six weeks, stairs ok, no bathtub 4 weeks, may shower, no lifting more than 20 pounds for six weeks call for problem or concern, incision check one week with Dr. Min Forms: Portal Instructions Follow Up Appointments: incision check with Dr. Min in one week Discharge location: home
== END 2024-06-29 12:30 | disposition home or self-care (01) | DRG 785 ==
LOC: FBCO 13:02 → FBC 13:02
PROVIDERS: Admitting Provider Obstetrics & Gynecology; Visit Provider Obstetrics & Gynecology
PROC: 10D00Z1 Extraction of Products of Conception, Low, Open Approach (ICD-10-PCS; CPT 59514; principal; 2024-06-27 14:00)
DX: O14.94 Unspecified pre-eclampsia, complicating childbirth (principal); O34.219 Maternal care for unspecified type scar from previous cesarean delivery; Z3A.37 37 weeks gestation of pregnancy; Z37.0 Single live birth; O24.424 Gestational diabetes mellitus in childbirth, insulin controlled; O99.284 Endocrine, nutritional and metabolic diseases complicating childbirth; E03.9 Hypothyroidism, unspecified; Z30.2 Encounter for sterilization; O13.4 Gestational [pregnancy-induced] hypertension without significant proteinuria, complicating childbirth
CPT/HCPCS: 36415; 59050; 80307; 81001; 82948; 85025; 86850; 86900; 86901; 94667; 94668; 96372; 96374; 96375; 96376; J0690; J1100; J1650; J1885; J2274; J2371; J2405; J2590

== ENCOUNTER 2025-07-30 10:28 | Outpatient (OUT) | payer BC, SELFPAY ==
--- OUTSIDE RECORDS SUMMARY | 2024-08-06 09:21 | XMS_ITS ---
Author Name Auto Generated Organization OHIP Care Team Providers Care Linoleum Layer Name Role Phone JULITA NEW Attending Unavailable PROBLEMS No Problem Records Found PROCEDURES No Procedure Records Found RESULTS No Result Records Found ALLERGIES No Allergies Records Found ENCOUNTERS ADMIT/DISCHARGE ACCOUNT NUMBER ADMITTING ENCOUNTER CLASS LOCATION SOURCE 08/06/2024/ 4 [id number] Ambulatory Building:[facility] EPIC PAYERS ENCOUNTER GUARANTOR PAYER SUBSCRIBER SOURCE 08/06/2024 VADIM CONSTANTINODOB: [id number] [place] [address]Lsd: () Primary Insurance:[employer] licy Number: [id number] ctive Date:2020-04-12 MERRILL DEEB: [id number] [address] [facility] EPIC
--- OUTSIDE RECORDS SUMMARY | 2025-07-21 03:45 | XMS_ITS | Continuity of Care Document ---
Author Organization [facility] Address [address] [place] [address] [place] [address] Phone Care Team Providers Care Electronic Technologist Name Role Phone Reji ZHENG, John Unavailable Unavailable Procedures Procedure Date UPPER GI ENDOSCOPY, BIOPSY PSYCL TST EVAL PHYS/QHP PSYCL/NRPSYC TST PHY/QHP OFFICE/OUTPATIENT VISIT, [facility] Advance Directives Directive Yes / No Effective Date File Name No Information Encounters Encounter Description Practice Location Reason(s) For Visit Diagnoses Date Provider Providers Copied on Encounter [facility], [address] [place] [address] B, [place], [place], [id number], [place] tel:[phone] [facility] OP No Information Reji Lopez. [address], [id number], [place]. tel:[phone] Referring Provider: John Roach, [address], [address]. tel:[phone] [facility], [address] [place] [address] [place], [id number], [place] tel:[phone] [facility] No Information Serge Lozada. [address] [facility] [address], [id number], [place]. tel:[phone] Referring Provider: Kierra Valentine, [address] [facility] [address], [place], [address]. tel:[phone] OFFICE/OUTPATI ENT VISIT, [facility], [address] [facility] [address], [place], [place], [id number], [place] tel:[phone] [facility] No Information Reji Lopez. [address] [facility] [address], [place], [place], [id number], [place]. tel:[phone] Referring Provider: John Roach, [address] [facility] [address], [place], [address]. tel:[phone] Family History Family Member Type Diagnosis Age At Onset No Information Payers Payer name Insurance type Covered democrat ID Authorjodeesixto rojas(s) Candie [id number] Social History Type Description Quantity Date Captured Comments Sex Female Smoking Status No Information Chief Complaint And Reason For Visit No Information Reason For Referral Reason For Referral No Information History Of Present Illness Encounter Date Complaint History Of Prese nt Illness No Information Functional Status Date Functional Assessmen t No Information Instructions Date Instruction Additional Infor mation No Information Assessments Type Assessment Date No Information Patient Care Teams Name Effective Dates (start - stop) Status Members No Information
--- NOTE | 2025-07-30 10:30 | ECG_ITS ---
The [facility] Test Date: 2025-07-30 Pat Name: VADIM CONSTANTINO Department: Room: - Gender: Female Education Rn: : 1995 Requested By: [id number] Order Number: [id number] Reading MD: YADIRA MARTÍNEZ M.D. Measurements Intervals [place] Rate: 77 P: 36 VT: 132 QRS: 101 QRSD: 89 T: 20 QT: 372 QTc: 421 Interpretive Statements SINUS RHYTHM MARKED RIGHT AXIS DEVIATION [QRS AXIS > 100] NONSPECIFIC T-WAVE ABNORMALITY Compared to ECG 05/21/2023 17:07:18 Right-axis deviation now present T-wave abnormality now present Sinus arrhythmia no longer present Electronically Signed On 07-30-2025 11:49:28 EDT by YADIRA MARTÍNEZ M.D.
--- OUTSIDE RECORDS SUMMARY | 2025-07-30 10:30 | XMS_ITS | Encounter Summary ---
Author Organization [facility] Address [address] [place] [address] Care Team Providers Care Pmo Manager Name Role Phone Gissel Kimble MD Primary Care Provider Encounter Details Date Type Department Care Team (Late st Contact Info) Description 05/21/2024 Clinisync Result Encounter [facility] External Department Unsolicited Estella Min, DO [address] [place], [place] [id number] Social History Tobacco Use Types Packs/Day Years Used Date Smoking Tobacco: Never Smokeless Tobacco: Never Alcohol Use Standard Drinks/Week Comments Never 0 (1 standard drink = 0.6 oz pur e alcohol) Comments Yes Sex and Gender Information Value Date Recorded Sex Assigned at Not on file Legal Sex Female 7:25 PM EDT Gender Identity Not on file Sexual Orientation Not on file documented as of this encounter Plan of Treatment Not on file documented as of this encounter Procedures Procedure Name Priority Date/Time Associated Diagnosis Comments US OB BPP W NON-STRESS 05/21/2024 12:16 PM EDT documented in this encounter Results * US OB BPP W NON-STRESS (05/21/2024 12:16 PM EDT) Anatomical Region Laterality Modality Other 05/21/2024 12:1 6 PM EDT Narrative 05/21/2024 12:19 PM EDT The [address] [address] Ultrasound Report Signed Patient: DIANE CONSTANTINO MR#: [id number] : 1995 Acct:[id number] Age/Sex: 28 / F ADM Date: 05/21/24 Loc: [facility] 250-[address]: Estella Min D.O. Ordering Physician: Estella Min D.O. Date of Service: 05/21/24 Procedure(s): US OB BPP w non-stress Accession Number(s): [id number] cc: Estella Min D.O.; Physician,Non-Staff M.Stacy The [place] [address] Patient Name: DIANE CONSTANTINO MRN: [id number] date: 1995 Sex: F Assigned Patient Location: [facility] Current Patient Location: [facility] Accession/Order Number: [id number] Exam Date: 05/21/2024 11:05 Report Date: 05/21/2024 12:16 At the request of: ESTELLA MIN Procedure: US OB BPP w non-stress EXAMINATION: US OB BPP w non-stress HISTORY: Gestational diabetes mellitus O24.419 COMPARISON: No relevant comparison available. TECHNIQUE: Ultrasound biophysical profile was performed in the radiology department. non-reactive stress testing was performed by nursing staff in the birthing center. FINDINGS: BREATHING MOVEMENTS: 2 GROSS BODY MOVEMENTS: 2 TONE: 2 QUALITATIVE AMNIOTIC FLUID VOLUME: 2 PRESENTATION: CEPHALIC HEART RATE: 163.64 bpm AMNIOTIC FLUID VOLUME: 18.4 cm GESTATIONAL AGE: 31 weeks 6 days US/US OB BPP w non-stress IMPRESSION: Total biophysical profile score: 8 Electronically authenticated by: SEBASTIAN HENRY Date: 05/21/2024 12:16 Dictated By: Sebastian Henry M.D. Signed By: 05/21/24 1219 DD/ 1216 TD/TT: Machine Applicator Cementer: Procedure Note Radiology, Radiologist, - 05/21/2024 [place] [address] Ultrasound Report Signed Patient: DIANE CONSTANTINO RMR#: [id number] : 1995Acct:[id number] Age/Sex: 28 / FADM Date: 05/21/24 Loc: [facility] 250-[address]: Estella Min D.O. Ordering Physician: Estella Min D.O. Date of Service: 05/21/24 Procedure(s): US OB BPP w non-stress Accession Number(s): [id number] cc: Estella Min D.O.; Physician,Non-Staff [place] [phone] Patient Name: DIANE CONSTANTINO MRN: [id number] date: 1995 Sex: F Assigned Patient Location: [facility] Current Patient Location: [facility] Accession/Order Number: [id number] Exam Date: 05/21/2024 11:05 Report Date: 05/21/2024 12:16 At the request of: ESTELLA MIN Procedure: US OB BPP w non-stress EXAMINATION: US OB BPP w non-stress HISTORY: Gestational diabetes mellitus O24.419 COMPARISON: No relevant comparison available. TECHNIQUE: Ultrasound biophysical profile was performed in the radiology department. non-reactive stress testing was performed by nursingstaff in the birthing center. FINDINGS: BREATHING MOVEMENTS: 2 GROSS BODY MOVEMENTS: 2 TONE: 2 QUALITATIVE AMNIOTIC FLUID VOLUME: 2 PRESENTATION: CEPHALIC HEART RATE: 163.64 bpm AMNIOTIC FLUID VOLUME: 18.4 cm GESTATIONAL AGE: 31 weeks 6 days US/US OB BPP w non-stress IMPRESSION: Total biophysical profile score: 8 Electronically authenticated by: SEBASTIAN HENRY Date: 05/21/2024 12:16 Dictated By: Sebastian Henry M.D. Signed By:05/21/24 1219 DD/ 1216 TD/TT: Machine Applicator Cementer: Estella Min DO [facility] Final Result documented in this encounter Visit Diagnoses Not on filedocumented in this encounter Care Teams Pmo Manager Relationship Specialty Start Date End Date Gissel Kimble MD PCP - General Family Medicine 04/02/23 documented as of this encounter
--- OUTSIDE RECORDS SUMMARY | 2025-07-30 10:30 | XMS_ITS | Encounter Summary ---
Author Organization [facility] Address [id number] [address] [place] [address] Care Team Providers Care Die Storage Clerk Name Role Phone Gissel Kimble MD Primary Care Provider [phone] Encounter Details Date Type Department Care Team (Late st Contact Info) Description 11/16/2022 Abstract Maternal- Medicine at [facility] [address] [place] [id number] Adi Roberts MD [address] [place] [address] Social History Tobacco Use Types Packs/Day Years Used Date Smoking Tobacco: Never Smokeless Tobacco: Never Tobacco Cessation:Counseling Given: Not Answered Alcohol Use Standard Drinks/Week Comments No 0 (1 standard drink = 0.6 oz pur e alcohol) AUDIT-C Answer Date Recorded Frequency of Alcohol Consumption Never 11/28/2018 Average Number of Drinks Not on file 019 Frequency of Binge Drinking Not on file 10/31 Childcare Answer Date Recorded Childcare Unknown 04/10/2019 Employment Answer Date Recorded Employment Unknown 04/10/2019 Purpose - Life Answer Date Recorded Purpose and direction in life Unknown Comments Yes Sex and Gender Information Value Date Recorded Sex Assigned at Not on file Legal Sex Female 11:51 AM EST Gender Identity Not on file Sexual Orientation Not on file documented as of this encounter Plan of Treatment Not on file documented as of this encounter Procedures Procedure Name Priority Date/Time Associated Diagnosis Comments TSH Routine 10/19/2022 T4, FREE Routine 10/19/2022 SECOND HOUR GLUCOSE TOLERANCE 100 GM LOAD Routine 09/29/2022 GLUCOSE TOLERANCE, 1 HOUR Routine 09/29/2022 GLUCOSE TOLERANCE, 3 HOURS Routine 09/29/2022 GLUCOSE TOLERANCE, FASTING Routine 09/29/2022 GLU 1H POST 50G LOAD Routine 09/25/2022 documented in this encounter Results * TSH (10/19/2022) Thyroid Stimulating (3Rd Generation) Hormone/ Tsh 1.303 MANUALLY TRANSCRIBED RESULTS us Not In System Ref Prov LAB BLOOD ORDERABLES Ashlie l Result Performing Organization Address City/[facility] Co de Phone Number MANUALLY TRANSCRIBED RESULTS * T4, free (10/19/2022) Pathologist [facility] T4 Free Free T4 0.89 MANUALLY TRANSCRIBED RESULTS us Not In System Ref Prov LAB BLOOD ORDERABLES Ashlie l Result Performing Organization Address City/[facility]/ZIP Co de Phone Number MANUALLY TRANSCRIBED RESULTS * Glucose tolerance, 3 hours (09/29/2022) Glucose Tolerance Test 3 Hour 76 MANUALLY TRANSCRIBED RESULTS us Not In System Ref Prov LAB BLOOD ORDERABLES Ashlie l Result Performing Organization Address City/[facility]/ZIP Co de Phone Number MANUALLY TRANSCRIBED RESULTS * Glucose, tolerance fasting (09/29/2022) Glucose Tolerance Test Fasting 99 MANUALLY TRANSCRIBED RESULTS us Not In System Ref Prov LAB BLOOD ORDERABLES Ashlie l Result Performing Organization Address City/[facility]/ZIP Co de Phone Number MANUALLY TRANSCRIBED RESULTS * Glucose tolerance, 1 hour (09/29/2022) Glucose Tolerance Test 1 Hour 173 MANUALLY TRANSCRIBED RESULTS us Not In System Ref Prov LAB BLOOD ORDERABLES Ashlie l Result Performing Organization Address City/[facility]/ZIP Co de Phone Number MANUALLY TRANSCRIBED RESULTS * 2nd hr Glucose Tolerance 100 gm load (09/29/2022) Glucose Tolerance Test 2 Hour 151 MANUALLY TRANSCRIBED RESULTS us Not In System Ref Prov LAB BLOOD ORDERABLES Ashlie l Result Performing Organization Address [facility] de Phone Number MANUALLY TRANSCRIBED RESULTS * Glucose 1h post 50g load (09/25/2022) Glucose, 1Hr PP 159 MANUALLY TRANSCRIBED RESULTS us Not In System Ref Prov LAB BLOOD ORDERABLES Ashlie l Result Performing Organization Address [facility] de Phone Number MANUALLY TRANSCRIBED RESULTS documented in this encounter Visit Diagnoses Not on filedocumented in this encounter Care Teams Die Storage Clerk Relationship Specialty [place] [address] [place] [address] PCP - General 12/03/18 documented as of this encounter
--- OUTSIDE RECORDS SUMMARY | 2025-07-30 10:30 | XMS_ITS | Encounter Summary ---
Author Organization [facility] Address [address] [facility] [place] [address] Care Team Providers Care E Learning Developer Name Role Phone Gissel Kimble MD Primary Care Provider [phone] Encounter Details Date Type Department Care Team (Late st Contact Info) Description 06/19/2024 Abstract [facility] [address] [place] [id number] Adis Min DO [address] Jj Cash, [facility] Social History Tobacco Use Types Packs/Day Years [...] on file documented as of this encounter Visit Diagnoses Not on filedocumented in this encounter Care Teams E Learning Developer Relationship Specialty Start Date End Date Gissel Kimble MD PCP - General Family Medicine 04/02/23 documented as of this encounter
--- OUTSIDE RECORDS SUMMARY | 2025-07-30 10:30 | XMS_ITS | Clinical Summary ---
Author Organization [facility] tem Address [id number] [address] [place] [address] Care Team Providers Care Events Director Name Role Phone Gissel Kimble MD Primary Care Provider [phone] Allergies No known active allergies Medications vit,calc76/iron/ folic (PNV 29-1 ORAL) Take 1 tablet by mouth 2 (two) times a day. Active metoclopramide (REGLAN) 5 mg tablet Take 1 tablet (5 mg total) by mouth every 6 (six) hours as needed. Active promethazine (PHENERGAN) 12.5 mg tablet Take 1 tablet (12.5 mg total) by mouth every 6 (six) hours as needed for nausea or vomiting. Active ondansetron (ZOFRAN) 4 mg tablet Take 1 tablet (4 mg total) by mouth every 4 (four) hours as needed for nausea or vomiting. Active Active Problems Problem Noted Date Diagnosed Date History of gestational diabe clint in prior , currently 11/28/2022 Obesity affecting 11/28/2022 with history of section, ante 11/28/2022 Hx of preeclampsia, prior , currently p regnant 11/28/2022 choroid plexus cysts a ffecting antepartum care of mother, not applicable or unspecified fetus 10/17/2022 Family History Medical History Relation Name Comments Diabetes Father Stroke Maternal Grandfather Diabetes Paternal Grandmother Relation Name Status Comments Father Maternal Grandfather Paternal Grandmother Social History Tobacco Use Types Packs/Day Years [...] Employment Answer Date Recorded Employment Unknown 04/10/2019 Hunger Screening Answer Date Recorded Within the past 12 months we worried whether our food would run out before we got money to buy more. Never True 11/28/2022 Within the past 12 months th e food we bought just didn't last and we didn't have money to get more. Never True 11/28/2022 Purpose - Life Answer Date Recorded Purpose and direction in life Unknown Comments No Sex and Gender Information Value Date Recorded Sex Assigned at Not on file Legal Sex Female 11:51 AM EST Gender Identity Not on file Sexual Orientation Not on file Last Filed Vital Signs Vital Sign Reading Time Taken Comments Blood Pressure 139/76 11/28/2022 9:59 AM EST Pulse 107 11/28/2022 9:59 AM EST Temperature - - Respiratory Rate - - Oxygen Saturation - - Inhaled Oxygen Concentration - - Weight 113.4 kg (250 lb) 11/28/2022 9:59 AM EST Height 162.6 cm (5' 4 ) 11/28/2022 9:59 AM EST Body Mass Index 42.91 11/28/2022 9:59 AM EST Plan of Treatment Health Maintenance Due Date Last Done Comments Depression Screening 2006 Tobacco Screening 2006 DTaP,Tdap and Td Vaccines (1 - Tdap) 2013 Pap Smear 2015 Adult BMI Screening 11/28/2023 11/28/2022 Influenza Vaccine 06/29/2025 Medical Devices Not on file Insurance [facility] Care Teams Events Director Relationship Specialty Start Date End Date Gissel Kimble MD [address] [place] [address] PCP - General 12/03/18
--- OUTSIDE RECORDS SUMMARY | 2025-07-30 10:30 | XMS_ITS | Encounter Summary ---
Author Organization [facility] Address [address] [facility] [place] [address] Care Team Providers Care Instructional Facilitator Name Role Phone Gissel Kimble MD Primary Care Provider [phone] Encounter Details Date Type Department Care Team (Late st Contact Info) Description 06/27/2024 Abstract [facility] [address] [place] [id number] Rosita Bo LPN [address] [place] [id number] Social History Tobacco Use Types Packs/Day Years [...] on filedocumented in this encounter Care Teams Instructional Facilitator Relationship Specialty Start Date End Date Gissel Kimble MD PCP - General Family Medicine 04/02/23 documented as of this encounter
--- OUTSIDE RECORDS SUMMARY | 2025-07-30 10:30 | XMS_ITS | Encounter Summary ---
Author Organization [facility] Address [address] [facility] [place] [address] Care Team Providers Care Plywood Matcher Name Role Phone Gissel Kimble MD Primary Care Provider [phone] Encounter Details Date Type Department Care Team (Late st Contact Info) Description 07/03/2024 Abstract [facility] [address] [facility] [address] [facility] [place] [phone] Adis Min DO [address] Jj Cash, [facility] Social History Tobacco Use Types Packs/Day Years Used Date Smoking Tobacco: Never Smokeless Tobacco: Never Alcohol Use Standard Drinks/Week Comments Never 0 (1 standard drink = 0.6 oz pur e alcohol) Comments No Sex and Gender Information Value Date Recorded Sex Assigned at Not on file Legal Sex Female 7:25 PM EDT Gender Identity Not on file Sexual Orientation Not on file documented as of this encounter Plan of Treatment Not on file documented as of this encounter Visit Diagnoses Not on filedocumented in this encounter Care Teams Plywood Matcher Relationship Specialty Start Date End Date Gissel Kimble MD PCP - General Family Medicine 04/02/23 documented as of this encounter
--- OUTSIDE RECORDS SUMMARY | 2025-07-30 10:30 | XMS_ITS | Encounter Summary ---
Author Organization [facility] Address [address] [place] [address] Care Team Providers Care Help Desk Analyst Name Role Phone Gissel Kimble MD Primary Care Provider [phone] Encounter Details Date Type Department Care Team (Late st Contact Info) Description 06/18/2024 Clinisync Result Encounter [facility] External Department Unsolicited Estella Min, DO [address] [facility] [address] [place], [place] [id number] Social History Tobacco Use Types Packs/Day Years [...] Priority Date/Time Associated Diagnosis Comments US OB GROWTH 06/18/2024 11:48 AM EDT documented in this encounter Results * US OB GROWTH (06/18/2024 11:48 AM EDT) Anatomical Region Laterality Modality Other 06/18/2024 11:4 8 AM EDT Narrative 06/18/2024 11:50 AM EDT The [address] [address] Ultrasound Report Signed Patient: DIANE CONSTANTINO MR#: [id number] : 1995 Acct:[id number] Age/Sex: 28 / F ADM Date: 06/18/24 Loc: [facility] 252-[address]: Estella Min D.O. Ordering Physician: Estella Min D.O. Date of Service: 06/18/24 Procedure(s): US OB growth Accession Number(s): [id number] cc: Estella Min D.O.; Physician,Non-Staff [place] [address] Patient Name: DIANE CONSTANTINO MRN: [facility]:[id number] date: 1995 Sex: F Assigned Patient Location: [facility] Current Patient Location: [facility] Accession/Order Number: [id number] Exam Date: 06/18/2024 11:05 Report Date: 06/18/2024 11:48 At the request of: ESTELLA MIN Procedure: US OB growth EXAMINATION: US OB growth HISTORY: Gestational diabetes mellitus O24.419 COMPARISON: Ultrasound OB growth 05/21/2024 FINDINGS: Heart Rate: 181.21 bpm Amniotic Fluid Volume: 23.8 cm Number: 1 Position: CEPHALIC BIOMETRY: BPD: 9.30 cm; 37 weeks 6 days; 95 % HC: 33.31 cm; 38 weeks 0 days; 72.70 % AC: 34.33 cm; 38 weeks 2 days; >97 % FL: 7.03 cm; 36 weeks 0 days; 50.30 % EFW: 3272.95 g; 91.70 % FL/AC: 20.48 FL/BPD: 75.59 HC/AC: 0.97 GESTATIONAL AGE: Age by EDC: 35 weeks 6 days NILE by EDC: 2024-07-17 Age by US: 37 weeks 4 days NILE by US: 2024-07-05 US/US OB growth IMPRESSION: 1. Single live intrauterine with growth detailed above. 2. Amniotic fluid volume approaches polyhydramnios. 3. Abdominal circumference is greater than 97th percentile. Biparietal diameter is 95th percentile. Electronically authenticated by: CHIRAG ZUÑIGA Date: 06/18/2024 11:48 Dictated By: Chirag Zuñiga M.D. Signed By: 06/18/24 1150 DD/ 1148 TD/TT: Dock Supervisor: Procedure Note Radiology, Radiologist, MD - 06/18/2024 [place] [address] Ultrasound Report Signed Patient: DIANE CONSTANTINO RMR#: [id number] : 1995Acct:[id number] Age/Sex: 28 / FADM Date: 06/18/24 Loc: [facility] 252-[address]: Estella Min D.O. Ordering Physician: Estella Min D.O. Date of Service: 06/18/24 Procedure(s): US OB growth Accession Number(s): [id number] cc: Estella Min D.O.; Physician,Non-Staff Nadya The [address] [address] Patient Name: DIANE CONSTANTINO MRN: [facility]:[id number] date: 1995 Sex: F Assigned Patient Location: [facility] Current Patient Location: [facility] Accession/Order Number: [id number] Exam Date: 06/18/2024 11:05 Report Date: 06/18/2024 11:48 At the request of: ESTELLA MIN Procedure: US OB growth EXAMINATION: US OB growth HISTORY: Gestational diabetes mellitus O24.419 COMPARISON: Ultrasound OB growth 05/21/2024 FINDINGS: Heart Rate: 181.21 bpm Amniotic Fluid Volume: 23.8 cm Number: 1 Position: CEPHALIC BIOMETRY: BPD: 9.30 cm; 37 weeks 6 days; 95 % HC: 33.31 cm; 38 weeks 0 days; 72.70 % AC: 34.33 cm; 38 weeks 2 days; >97 % FL: 7.03 cm; 36 weeks 0 days; 50.30 % EFW: 3272.95 g; 91.70 % FL/AC: 20.48 FL/BPD: 75.59 HC/AC: 0.97 GESTATIONAL AGE: Age by EDC: 35 weeks 6 days NILE by EDC: 2024-07-17 Age by US: 37 weeks 4 days NILE by US: 2024-07-05 US/US OB growth IMPRESSION: 1. Single live intrauterine with growth detailed above. 2. Amniotic fluid volume approaches polyhydramnios. 3. Abdominal circumference is greater than 97th percentile. Biparietal diameter is 95th percentile. Electronically authenticated by: CHIRAG ZUÑIGA Date: 06/18/2024 11:48 Dictated By: Chirag Zuñiga M.D. Signed By:06/18/24 1150 DD/ 1148 TD/TT: Dock Supervisor: Estella Mechelle DO [facility] Final Result documented in this encounter Visit Diagnoses Not on filedocumented in this encounter Care Teams Help Desk Analyst Relationship Specialty Start Date End Date Gissel Kimble MD PCP - General Family Medicine 04/02/23 documented as of this encounter
--- OUTSIDE RECORDS SUMMARY | 2025-07-30 10:30 | XMS_ITS | Clinical Summary ---
Author Organization [facility] Healthcare Address [address] [place] [address] Care Team Providers Care Web Services Professional Name Role Phone Gissel Kimble MD Primary Care Provider [phone] Allergies No known active allergies Medications sertraline (Zoloft) 50 MG tablet Take 50 mg by mouth in the morning. 4 Active Alcohol Swabs (Alcohol Prep Pad) 70 % padsIndications: Gestational diabetes mellitus (GDM), antepartum, gestational diabetes method of control unspecified ([facility]),Elevat ed glucose tolerance test Apply 1 Pad topically Daily Use four times daily to check FSBS. 150 each 3 4 Active famotidine (Pepcid) 20 MG tablet TAKE 1 TABLET BY MOUTH TWICE A DAY FOR 6 WEEKS 3 Active insulin glargine (Lantus) 100 UNIT/ML injectionIndicat ions:Hyperglycem ia,GESTATIONAL DIABETES Inject 10 Units under the skin in the evening 3 mL 4 Active labetalol (Normodyne) 100 MG tabletIndication s: induced hypertension, antepartum ([facility]) Take 1 tablet (100 mg) by mouth in the morning and 1 tablet (100 mg) before bedtime. 180 tablet 3 4 Active Active Problems Problem Noted Date Diagnosed Date Request for sterilization 06/05/2024 History of gestational diabetes 01/14/2024 History of toxemia of 01/14/2024 Resolved Problems Problem Noted Date Diagnosed Date Resolved Date Third trimester ([facility]) 06/05/2024 06/27/2024 Gestational diabetes mellitu s (GDM), antepartum ([facility]) 06/05/2024 06/27/2024 Second trimester ([facility]) 01/14/2024 06/27/2024 History of pre-eclampsia in prior , currently ([facility]) 01/14/2024 06/27/2024 Family History Medical History Relation Name Comments Diabetes Father Nba Diabetes Paternal Grandmother Therese Relation Name Status Comments Father Nba Mother Alive Paternal Grandmother Therese Social History Tobacco Use Types Packs/Day Years Used Date Smoking Tobacco: Never Smokeless Tobacco: Never Tobacco Cessation:Counseling Given: Not Answered Alcohol Use Standard Drinks/Week Comments Never 0 (1 standard drink = 0.6 oz pur e alcohol) Comments No Sex and Gender Information Value Date Recorded Sex Assigned at Not on file Legal Sex Female 7:25 PM EDT Gender Identity Not on file Sexual Orientation Not on file Last Filed Vital Signs Vital Sign Reading Time Taken Comments Blood Pressure 126/80 08/06/2024 9:30 AM EDT Pulse - - Temperature - - Respiratory Rate - - Oxygen Saturation - - Inhaled Oxygen Concentration - - Weight 116 kg (256 lb) 08/06/2024 9:30 AM EDT Height 162.6 cm (5' 4 ) 08/06/2024 9:30 AM EDT Body Mass Index 43.94 08/06/2024 9:30 AM EDT Plan of Treatment Not on file Insurance [facility] BCBS Care Teams Web Services Professional Relationship Specialty Start Date End Date Gissel Kimble MD PCP - General Family Medicine 04/02/23
--- OUTSIDE RECORDS SUMMARY | 2025-07-30 10:30 | XMS_ITS | Encounter Summary ---
Author Organization [facility] [facility] tem Address [id number] [address] [place] [address] Care Team Providers Care Clearing Hand Name Role Phone Gissel Kimble MD Primary Care Provider [phone] Encounter Details Date Type Department Care Team (Late st Contact Info) Description 11/16/2022 Orders Only Maternal- Medicine at [facility] [address] [place] [phone] Adis Min, DO [address] [facility] [place] [address] Social History Tobacco Use Types Packs/Day Years Used Date Smoking Tobacco: Never Smokeless Tobacco: Never Alcohol Use Standard Drinks/Week Comments No 0 [...] Name Priority Date/Time Associated Diagnosis Comments US PREG LMTD 1 OR MORE FETUS Routine 10/17/2022 documented in this encounter Results * Ultrasound limited 1 or more fetus (10/17/2022) Anatomical Region Laterality Modality OB-TELEGRAPHER AGENT Ultrasound us Adis Min DO IMG US ORDERABLES Final Result documented in this encounter Visit Diagnoses Not on filedocumented in this encounter Care Teams Clearing Hand Relationship Specialty Start Date End Date Gissel Kimble MD [address] [place] [id number] PCP - General 12/03/18 documented as of this encounter
--- OUTSIDE RECORDS SUMMARY | 2025-07-30 10:30 | XMS_ITS | Encounter Summary ---
Author Organization [facility] Address [address] [facility] [place] [address] Care Team Providers Care Hvac Project Manager Name Role Phone Gissel Kimble MD Primary Care Provider [phone] Encounter Details Date Type Department Care Team (Late st Contact Info) Description 06/06/2024 Abstract [facility] [address] [facility] [place] [phone] Adis Min DO [address] Jj Cash, [id number] Social History Tobacco Use Types Packs/Day Years [...] on filedocumented in this encounter Care Teams Hvac Project Manager Relationship Specialty Start Date End Date Gissel Kimble MD PCP - General Family Medicine 04/02/23 documented as of this encounter
--- OUTSIDE RECORDS SUMMARY | 2025-07-30 10:30 | XMS_ITS | Encounter Summary ---
Author Organization [facility] Address [address] [place] [address] Care Team Providers Care Associate Store Leader Name Role Phone Gissel Kimble MD Primary Care Provider [phone] Encounter Details Date Type Department Care Team (Late st Contact Info) Description 12/13/2023 Clinisync Result Encounter [facility] External Department Unsolicited Estella Min, DO [address] [facility] [address] [place], [place] [id number] Social History Tobacco Use Types Packs/Day Years [...] Priority Date/Time Associated Diagnosis Comments US OB TRANSVAGINAL 12/13/2023 3: 36 PM EST documented in this encounter Results * US OB TRANSVAGINAL (12/13/2023 3:36 PM EST) Anatomical Region Laterality Modality Other 12/13/2023 3:36 PM EST Narrative 12/13/2023 3:38 PM EST The [address] [address] Ultrasound Report Signed Patient: DIANE CONSTANTINO MR#: [id number] : 1995 Acct:[id number] Age/Sex: 28 / F ADM Date: 12/13/23 Loc: [facility] Attending Dr: Estella Min D.O. Ordering Physician: Estella Min D.O. Date of Service: 12/13/23 Procedure(s): US OB transvaginal Accession Number(s): [id number] cc: Estella Min D.O.; Physician,Non-Staff Nadya The [place] [address] Patient Name: DIANE CONSTANTINO MRN: [id number] date: 1995 Sex: F Assigned Patient Location: [facility] Current Patient Location: [facility] Accession/Order Number: [id number] Exam Date: 12/13/2023 14:02 Report Date: 12/13/2023 15:36 At the request of: ESTELLA MIN Procedure: US OB transvaginal EXAMINATION: US OB transvaginal HISTORY: MISSED MENSES COMPARISON: No relevant comparison available. FINDINGS: GESTATIONAL SAC: Present and normal appearing. YOLK SAC: Present and normal appearing. POLE: Present and normal appearing. CARDIAC: Present. UTERUS: Normal size and appearance. OVARIES: Right: Normal. Left: Normal. CERVIX: 4.2 cm in length and closed. CUL-DE-SAC: Normal. OTHER: None. AGE BY LMP: 9 weeks 0 days NILE BY LMP: 07/17/2024 AGE BY US CRL: 8 weeks 3 days NILE BY US CRL: 07/21/2024 US/US OB transvaginal IMPRESSION: 1. Single live intrauterine . Electronically authenticated by: CHIRAG ZUÑIGA Date: 12/13/2023 15:36 Dictated By: Chirag Zuñiga M.D. Signed By: 12/13/23 1538 DD/ TD/TT: Records Management Clerk: Procedure Note Radiology, Radiologist, MD - 12/13/2023 [place] [address] Ultrasound Report Signed Patient: DIANE CONSTANTINO RMR#: [id number] : 1995Acct:[id number] Age/Sex: 28 / FADM Date: 12/13/23 Loc: [facility] Attending Dr: Estella Min D.O. Ordering Physician: Estella Min D.O. Date of Service: 12/13/23 Procedure(s): US OB transvaginal Accession Number(s): [id number] cc: Estella Min D.O.; Physician,Non-Staff Nady[place] [id number] Patient Name: DIANE CONSTANTINO MRN: [id number] date: 1995 Sex: F Assigned Patient Location: [facility] Current Patient Location: [facility] Accession/Order Number: [id number] Exam Date: 12/13/2023 14:02 Report Date: 12/13/2023 15:36 At the request of: ESTELLA MIN Procedure: US OB transvaginal EXAMINATION: US OB transvaginal HISTORY: MISSED MENSES COMPARISON: No relevant comparison available. FINDINGS: GESTATIONAL SAC: Present and normal appearing. YOLK SAC: Present and normal appearing. POLE: Present and normal appearing. CARDIAC: Present. UTERUS: Normal size and appearance. OVARIES: Right: Normal. Left: Normal. CERVIX: 4.2 cm in length and closed. CUL-DE-SAC: Normal. OTHER: None. AGE BY LMP: 9 weeks 0 days NILE BY LMP: 07/17/2024 AGE BY US CRL: 8 weeks 3 days NILE BY US CRL: 07/21/2024 US/US OB transvaginal IMPRESSION: 1. Single live intrauterine . Electronically authenticated by: CHIRAG ZUÑIGA Date: 12/13/2023 15:36 Dictated By: Chirag Zuñiga M.D. Signed By:12/13/23 1538 DD/ 35 TD/TT: Records Management Clerk: us Estella Min DO [facility] Final Result documented in this encounter Visit Diagnoses Not on filedocumented in this encounter Care Teams Associate Store Leader Relationship Specialty Start Date End Date Gissel Kimble MD PCP - General Family Medicine 04/02/23 documented as of this encounter
--- OUTSIDE RECORDS SUMMARY | 2025-07-30 10:30 | XMS_ITS | Encounter Summary ---
Author Organization [facility] Address [address] [place] [address] Care Team Providers Care Renal Case Manager Name Role Phone Gissel Kimble MD Primary Care Provider [phone] Encounter Details Date Type Department Care Team (Late st Contact Info) Description 06/11/2024 Clinisync Result Encounter [facility] External Department Unsolicited Estella Min, DO [address] [facility] [address] [place], [place] [id number] Social History Tobacco Use Types Packs/Day Years [...] Diagnosis Comments US OB BPP W NON-STRESS 06/11/2024 11:29 AM EDT documented in this encounter Results * US OB BPP W NON-STRESS (06/11/2024 11:29 AM EDT) Anatomical Region Laterality Modality Other 06/11/2024 11:2 9 AM EDT Narrative 06/11/2024 11:31 AM EDT The [address] [address] Ultrasound Report Signed Patient: DIANE CONSTANTINO MR#: [id number] : 1995 Acct:[id number] Age/Sex: 28 / F ADM Date: 06/11/24 Loc: [facility] 250-[address]: Estella Min D.O. Ordering Physician: Estella Min D.O. Date of Service: 06/11/24 Procedure(s): US OB BPP w non-stress Accession Number(s): [id number] cc: Estella Min D.O.; Physician,Non-Staff M.Stacy The [place] [address] Patient Name: DIANE CONSTANTINO MRN: [id number] date: 1995 Sex: F Assigned Patient Location: [facility] Current Patient Location: [facility] Accession/Order Number: [id number] Exam Date: 06/11/2024 11:00 Report Date: 06/11/2024 11:29 At the request of: ESTELLA MIN Procedure: [...] FLUID VOLUME: 2 PRESENTATION: CEPHALIC HEART RATE: 147.54 bpm AMNIOTIC FLUID VOLUME: 24.8 GESTATIONAL AGE: 34w6d US/US OB BPP w non-stress IMPRESSION: Total biophysical profile score: 8 Electronically authenticated by: SEBASTIAN HENRY Date: 06/11/2024 11:29 Dictated By: Sebastian Henry M.D. Signed By: 06/11/24 1131 DD/ 1129 TD/TT: Bond Clerk: Procedure Note Radiology, Radiologist, - 06/11/2024 [place] [address] Ultrasound Report Signed Patient: DIANE CONSTANTINO RMR#: [id number] : 1995Acct:[id number] Age/Sex: 28 / FADM Date: 06/11/24 Loc: [facility] 250-[address]: Estella Min D.O. Ordering Physician: Estella Min D.O. Date of Service: 06/11/24 Procedure(s): US OB BPP w non-stress Accession Number(s): [id number] cc: Estella Min D.O.; Physician,Non-Staff [place] [id number] Patient Name: DIANE CONSTANTINO MRN: [id number] date: 1995 Sex: F Assigned Patient Location: [facility] Current Patient Location: [facility] Accession/Order Number: [id number] Exam Date: 06/11/2024 11:00 Report Date: 06/11/2024 11:29 At the request of: ESTELLA MIN Procedure: [...] FLUID VOLUME: 2 PRESENTATION: CEPHALIC HEART RATE: 147.54 bpm AMNIOTIC FLUID VOLUME: 24.8 GESTATIONAL AGE: 34w6d US/US OB BPP w non-stress IMPRESSION: Total biophysical profile score: 8 Electronically authenticated by: SEBASTIAN HENRY Date: 06/11/2024 11:29 Dictated By: Sebastian Henry M.D. Signed By:06/11/24 1131 DD/ 1129 TD/TT: Bond Clerk: Estella Min DO [facility] Final Result documented in this encounter Visit Diagnoses Not on filedocumented in this encounter Care Teams Renal Case Manager Relationship Specialty Start Date End Date Gissel Kimble MD PCP - General Family Medicine 04/02/23 documented as of this encounter
--- OUTSIDE RECORDS SUMMARY | 2025-07-30 10:30 | XMS_ITS | Encounter Summary ---
Author Organization [facility] Address [address] [facility] [place] [address] Care Team Providers Care Binder Selector Name Role Phone Gissel Kimble MD Primary Care Provider [phone] Encounter Details Date Type Department Care Team (Late st Contact Info) Description 05/20/2024 Abstract [facility] [address] [facility] [place] [phone] Adis Min DO [address] Jj Cash, [facility] Social History Tobacco Use [...] on filedocumented in this encounter Care Teams Binder Selector Relationship Specialty Start Date End Date Gissel Kimble MD PCP - General Family Medicine 04/02/23 documented as of this encounter
--- OUTSIDE RECORDS SUMMARY | 2025-07-30 10:30 | XMS_ITS | Encounter Summary ---
Author Organization [facility] Address [address] [place] [address] Care Team Providers Care Material Loader Name Role Phone Gissel Kimble MD Primary Care Provider [phone] Encounter Details Date Type Department Care Team (Late st Contact Info) Description 06/18/2024 Clinisync Result Encounter [facility] External Department Unsolicited Estella Min, DO [address] [facility] [address] [place], [place] [id number] Social History Tobacco Use Types Packs/Day Years [...] Diagnosis Comments US OB BPP W NON-STRESS 06/18/2024 11:54 AM EDT documented in this encounter Results * US OB BPP W NON-STRESS (06/18/2024 11:54 AM EDT) Anatomical Region Laterality Modality Other 06/18/2024 11:5 4 AM EDT Narrative 06/18/2024 11:56 AM EDT The [address] [address] Ultrasound Report Signed Patient: DIANE CONSTANTINO MR#: [id number] : 1995 Acct:[id number] Age/Sex: 28 / F ADM Date: 06/18/24 Loc: [facility] 252-[address]: Estella Min D.O. Ordering Physician: Estella Min D.O. Date of Service: 06/18/24 Procedure(s): US OB BPP w non-stress Accession Number(s): [id number] cc: Estella Min D.O.; Physician,Non-Staff M.DDamon The [place] [address] Patient Name: DIANE CONSTANTINO MRN: [facility]:[id number] date: 1995 Sex: F Assigned Patient Location: [facility] Current Patient Location: [facility] Accession/Order Number: [id number] Exam Date: 06/18/2024 11:05 Report Date: 06/18/2024 11:54 At the request of: ESTELLA MIN Procedure: US OB BPP w non-stress EXAMINATION: US OB BPP w non-stress HISTORY:Gestational diabetes mellitus O24.419 COMPARISON: Ultrasound OB biophysical 06/11/2024 TECHNIQUE: Ultrasound biophysical profile was performed in the radiology department. BREATHING MOVEMENTS: 2 GROSS BODY MOVEMENTS: 2 TONE: 2 QUALITATIVE AMNIOTIC FLUID VOLUME: 2 PRESENTATION: CEPHALIC HEART RATE: 181.21 bpm AMNIOTIC FLUID VOLUME: 23.80 cm GESTATIONAL AGE: 35 weeks 6 days US/US OB BPP w non-stress IMPRESSION: Total biophysical profile score: 8 Electronically authenticated by: CHIRAG ZUÑIGA Date: 06/18/2024 11:54 Dictated By: Chirag Zuñiga M.D. Signed By: 06/18/24 1156 DD/ 1154 TD/TT: Mechanical Technical Service Specialist: Procedure Note Radiology, Radiologist, - 06/18/2024 [place] [address] Ultrasound Report Signed Patient: DIANE CONSTANTINO RMR#: [id number] : 1995Acct:[id number] Age/Sex: 28 / FADM Date: 06/18/24 Loc: [facility] 252-[address]: Estella Min D.O. Ordering Physician: Estella Min D.O. Date of Service: 06/18/24 Procedure(s): US OB BPP w non-stress Accession Number(s): [id number] cc: Estella Min D.O.; Physician,Non-Staff [place] [address] Patient Name: DIANE CONSTANTINO MRN: [facility]:[id number] date: 1995 Sex: F Assigned Patient Location: [facility] Current Patient Location: [facility] Accession/Order Number: [id number] Exam Date: 06/18/2024 11:05 Report Date: 06/18/2024 11:54 At the request of: ESTELLA MIN Procedure: US OB BPP w non-stress EXAMINATION: US OB BPP w non-stress HISTORY:Gestational diabetes mellitus O24.419 COMPARISON: Ultrasound OB biophysical 06/11/2024 TECHNIQUE: Ultrasound biophysical profile was performed in the radiology department. BREATHING MOVEMENTS: 2 GROSS BODY MOVEMENTS: 2 TONE: 2 QUALITATIVE AMNIOTIC FLUID VOLUME: 2 PRESENTATION: CEPHALIC HEART RATE: 181.21 bpm AMNIOTIC FLUID VOLUME: 23.80 cm GESTATIONAL AGE: 35 weeks 6 days US/US OB BPP w non-stress IMPRESSION: Total biophysical profile score: 8 Electronically authenticated by: CHIRAG ZUÑIGA Date: 06/18/2024 11:54 Dictated By: Chirag Zuñiga M.D. Signed By:06/18/24 1156 DD/ 1154 TD/TT: Mechanical Technical Service Specialist: us Estella Min DO [facility] Final Result documented in this encounter Visit Diagnoses Not on filedocumented in this encounter Care Teams Material Loader Relationship Specialty Start Date End Date Gissel Kimble MD PCP - General Family Medicine 04/02/23 documented as of this encounter
--- OUTSIDE RECORDS SUMMARY | 2025-07-30 10:30 | XMS_ITS | Encounter Summary ---
Author Organization [facility] Address [address] [place] [address] Care Team Providers Care Automotive Brake Technician Name Role Phone Gissel Kimble MD Primary Care Provider [phone] Encounter Details Date Type Department Care Team (Late st Contact Info) Description 02/28/2024 Clinisync Result Encounter [facility] External Department Unsolicited Estella Min, DO [address] [facility] [address] [place], [place] [id number] Social History Tobacco Use Types Packs/Day Years [...] Priority Date/Time Associated Diagnosis Comments US OB CERVICAL LENGTH 02/28/2024 10:11 AM EDT documented in this encounter Results * US OB CERVICAL LENGTH (02/28/2024 10:11 AM EDT) Anatomical Region Laterality Modality Other 02/28/2024 10:1 1 AM EDT Narrative 02/28/2024 10:14 AM EDT The [address] [address] Ultrasound Report Signed Patient: DIANE CONSTANTINO MR#: [id number] : 1995 Acct:[id number] Age/Sex: 28 / F ADM Date: 02/28/24 Loc: [facility] Attending Dr: Estella Min D.O. Ordering Physician: Estella Min D.O. Date of Service: 02/28/24 Procedure(s): US OB cervical length Accession Number(s): [id number] cc: Estella Min D.O.; Physician,Non-Staff [place] [address] Patient Name: DIANE CONSTANTINO MRN: [facility]:[id number] date: 1995 Sex: F Assigned Patient Location: [facility] Current Patient Location: [facility] Accession/Order Number: [id number] Exam Date: 02/28/2024 08:02 Report Date: 02/28/2024 10:11 At the request of: ESTELLA MIN Procedure: US OB cervical length EXAMINATION: US OB anatomy, US OB cervical length HISTORY: ANATOMY COMPARISON: No relevant comparison available. TECHNIQUE: Transabdominal sonographic examination was performed for obstetrical and evaluation. FINDINGS: Number: 1 Heart Rate: 158.0 bpm H.B. /min Amniotic Fluid Volume: Subjectively normal position: Variable Placental Location: Posterior. The placental edge is 2.5 cm from the internal cervical os Cervix Length: 4.7 cm , closed Normal anatomy: Lateral ventricles, cerebellum, posterior fossa, nose, lips, orbits, four-chamber heart, RVOT, LVOT, diaphragm, stomach, kidneys, abdominal cord insertion, bladder, umbilical arteries, spine, extremities Nonvisualization: Three-vessel cord Limited evaluation due to maternal body habitus BIOMETRY: BPD: 4.2 cm 18 weeks 5 days , 8% HC: 16.5 cm 19 weeks 1 days, 11% AC: 13.9 cm 19 weeks 2 days, 22% FL: 3.3 cm 20 weeks 1 days , 47% EFW:302.0 grams; 11 ounces, 25% FL/AC: 23.4 FL/BPD: 77.4 HC/AC: 1.2 GESTATIONAL AGE: Age by EDC: 20 weeks 0 days NILE by EDC: 07/17/2024 Age by current US: 19 weeks 2 days NILE by current US: 07/22/2024 US/US OB cervical length IMPRESSION: Suboptimal exam secondary to maternal body habitus Nonvisualization of the three-vessel cord Low lying placenta, the placental edge is 2.5 cm from the internal os Closed cervix measuring 4.7 cm in length *Reference: [employer] Practice Guideline for the performance of Obstetric Ultrasound Examinations, July 29, 2007. Electronically authenticated by: SEBASTIAN HENRY Date: 02/28/2024 10:11 Dictated By: Sebastian Henry M.D. Signed By: 02/28/24 1014 DD/ 1011 TD/TT: Senior Linux Systems Administrator: Procedure Note Radiology, Radiologist, MD - 02/28/2024 [place] [address] Ultrasound Report Signed Patient: DIANE CONSTANTINO RMR#: [id number] : 1995Acct:[id number] Age/Sex: 28 / FADM Date: 02/28/24 Loc: [facility] Attending Dr: Estella Min D.O. Ordering Physician: Estella Min D.O. Date of Service: 02/28/24 Procedure(s): US OB cervical length Accession Number(s): [id number] cc: Estella Min D.O.; Physician,Non-Staff Nadya The [address] [address] Patient Name: DIANE CONSTANTINO MRN: [facility]:[id number] date: 1995 Sex: F Assigned Patient Location[facility] Current Patient Location: [facility] Accession/Order Number: [id number] Exam Date: 02/28/2024 08:02 Report Date: 02/28/2024 10:11 At the request of: ESTELLA MIN Procedure: US OB cervical length EXAMINATION: US OB anatomy, US OB cervical length HISTORY: ANATOMY COMPARISON: No relevant comparison available. TECHNIQUE: Transabdominal sonographic examination was performed for obstetrical and evaluation. FINDINGS: Number: 1 Heart Rate: 158.0 bpm H.B. /min Amniotic Fluid Volume: Subjectively normal position: Variable Placental Location: Posterior. The placental edge is 2.5 cm from theinternal cervical os Cervix Length: 4.7 cm , closed Normal anatomy: Lateral ventricles, cerebellum, posterior fossa, nose,lips, orbits, four-chamber heart, RVOT, LVOT, diaphragm, stomach, kidneys,abdominal cord insertion, bladder, umbilical arteries, spine, extremities Nonvisualization: Three-vessel cord Limited evaluation due to maternal body habitus BIOMETRY: BPD: 4.2 cm 18 weeks 5 days , 8% HC: 16.5 cm 19 weeks 1 days, 11% AC: 13.9 cm 19 weeks 2 days, 22% FL: 3.3 cm 20 weeks 1 days , 47% EFW:302.0 grams; 11 ounces, 25% FL/AC: 23.4 FL/BPD: 77.4 HC/AC: 1.2 GESTATIONAL AGE: Age by EDC: 20 weeks 0 days NILE by EDC: 07/17/2024 Age by current US: 19 weeks 2 days NILE by current US: 07/22/2024 US/US OB cervical length IMPRESSION: Suboptimal exam secondary to maternal body habitus Nonvisualization of the three-vessel cord Low lying placenta, the placental edge is 2.5 cm from the internal os Closed cervix measuring 4.7 cm in length *Reference: [employer] Practice Guideline for the performance of Obstetric Ultrasound Examinations, July 29, 2007. Electronically authenticated by: SEBASTIAN HENRY Date: 02/28/2024 10:11 Dictated By: Sebastian Henry M.D. Signed By:02/28/24 1014 DD/ 1011 TD/TT: Senior Linux Systems Administrator: us Estella Mechelle DO [facility] Final Result documented in this encounter Visit Diagnoses Not on filedocumented in this encounter Care Teams Automotive Brake Technician Relationship Specialty Start Date End Date Gissel Kimble MD PCP - General Family Medicine 04/02/23 documented as of this encounter
--- OUTSIDE RECORDS SUMMARY | 2025-07-30 10:30 | XMS_ITS | Encounter Summary ---
Author Organization [facility] tem Address [id number] [address] [place] [address] Care Team Providers Care Die Maker Stamping Name Role Phone Gissel Kimble MD Primary Care Provider [phone] Encounter Details Date Type Department Care Team (Late st Contact Info) Description 11/17/2022 Orders Only Maternal- Medicine at [facility] [address] [place] [id number] Adis Min, DO [address] [facility] [place] [address] Social History Tobacco Use Types Packs/Day Years [...] PREG LMTD 1 OR MORE FETUS Routine 11/14/2022 FREE CELL DNA (NON-PRO MEDICA SEND OUT) Routine 08/18/2022 documented in this encounter Results * Ultrasound limited 1 or more fetus (11/14/2022) Anatomical Region Laterality Modality OB-CLOTH GRADER SUPERVISOR Ultrasound us Adis R Mechelle DO IMG US ORDERABLES Final Result * Free Cell DNA (08/18/2022) us Adis R Mechelle DO LAB BLOOD ORDERABLES Final Resu lt MANUALLY TRANSCRIBED RESULTS documented in this encounter Visit Diagnoses Not on filedocumented in this encounter Care Teams Die Maker Stamping Relationship Specialty Start Date End Date Gissel Kimble MD [address] [place], [place] [id number] PCP - General 12/03/18 documented as of this encounter
--- OUTSIDE RECORDS SUMMARY | 2025-07-30 10:30 | XMS_ITS | Encounter Summary ---
Author Organization [facility] Address [address] [facility] [place] [address] Care Team Providers Care Green Energy Marketing Analyst Name Role Phone Gissel Kimble MD Primary Care Provider [phone] Encounter Details Date Type Department Care Team (Late st Contact Info) Description 03/13/2023 Abstract [facility] [address] [facility] [place] [phone] Carina Chapin PA [address] [facility] [address] [place], [facility] Social History Tobacco Use Types Packs/Day Years Used Date Smoking Tobacco: Never Smokeless Tobacco: Never Tobacco Cessation:Counseling Given: Not Answered Alcohol Use Standard Drinks/Week Comments Never 0 (1 standard drink = 0.6 oz pur e alcohol) Comments Unknown Sex and Gender Information Value Date Recorded Sex Assigned at Not on file Legal Sex Female 7:25 PM EDT Gender Identity Not on file Sexual Orientation Not on file documented as of this encounter Plan of Treatment Not on file documented as of this encounter Visit Diagnoses Not on filedocumented in this encounter Care Teams Green Energy Marketing Analyst Relationship Specialty Start Date End Date Gissel Kimble MD PCP - General Family Medicine 04/02/23 documented as of this encounter
--- OUTSIDE RECORDS SUMMARY | 2025-07-30 10:30 | XMS_ITS | Encounter Summary ---
Author Organization [facility] Address [address] [place] [address] Care Team Providers Care Cargo Broker Name Role Phone Gissel Kimble MD Primary Care Provider [phone] Encounter Details Date Type Department Care Team (Late st Contact Info) Description 06/25/2024 Clinisync Result Encounter [facility] External Department Unsolicited Estella Min, DO [address] [facility] [address] [place], [place] [id number] Social History Tobacco Use Types Packs/Day Years [...] Diagnosis Comments US OB BPP W NON-STRESS 06/25/2024 12:22 PM EDT documented in this encounter Results * US OB BPP W NON-STRESS (06/25/2024 12:22 PM EDT) Anatomical Region Laterality Modality Other 06/25/2024 12:2 2 PM EDT Narrative 06/25/2024 12:25 PM EDT The [address] [address] Ultrasound Report Signed Patient: DIANE CONSTANTINO MR#: [id number] : 1995 Acct:[id number] Age/Sex: 28 / F ADM Date: 06/25/24 Loc: US Attending Dr: Estella Min D.O. Ordering Physician: Estella Min D.O. Date of Service: 06/25/24 Procedure(s): US OB BPP w non-stress Accession Number(s): [id number] cc: Estella Min D.O.; Physician,Non-Staff Nadya The [place] [id number] Patient Name: DIANE CONSTANTINO MRN: [id number] date: 1995 Sex: F Assigned Patient Location: [facility] Current Patient Location: LAB Accession/Order Number: [id number] Exam Date: 06/25/2024 11:07 Report Date: 06/25/2024 12:22 At the request of: ESTELLA MIN Procedure: US OB BPP w non-stress EXAMINATION: US OB BPP w non-stress HISTORY: GESTATIONAL DIABETES MELITUS O24.419 COMPARISON: No relevant comparison available. TECHNIQUE: Ultrasound biophysical profile was performed in the radiology department. non-reactive stress testing was performed by nursing staff in the birthing center. FINDINGS: BREATHING MOVEMENTS: 2 GROSS BODY MOVEMENTS: 2 TONE: 2 QUALITATIVE AMNIOTIC FLUID VOLUME: 2 PRESENTATION: CEPHALIC HEART RATE: 150.84 bpm AMNIOTIC FLUID VOLUME: 13.6 cm GESTATIONAL AGE: 36 weeks 6 days US/US OB BPP w non-stress IMPRESSION: Total biophysical profile score: 8 Electronically authenticated by: SEBASTIAN HENRY Date: 06/25/2024 12:22 Dictated By: Sebastian Henry M.D. Signed By: 06/25/24 1225 DD/ 1222 TD/TT: Echometer Engineer: Procedure Note Radiology, Radiologist, - 06/25/2024 [place] [address] Ultrasound Report Signed Patient: DIANE CONSTANTINO RMR#: [id number] : 1995Acct:[id number] Age/Sex: 28 / FADM Date: 06/25/24 Loc: US Attending Dr: Estella Min D.O. Ordering Physician: Estella Min D.O. Date of Service: 06/25/24 Procedure(s): US OB BPP w non-stress Accession Number(s): [id number] cc: Estella Min D.O.; Physician,Non-Staff M.DDamon [place] [address] Patient Name: DIANE CONSTANTINO MRN: [facility]:[id number] date: 1995 Sex: F Assigned Patient Location: [facility] Current Patient Location: LAB Accession/Order Number: [id number] Exam Date: 06/25/2024 11:07 Report Date: 06/25/2024 12:22 At the request of: ESTELLA MIN Procedure: US OB BPP w non-stress EXAMINATION: US OB BPP w non-stress HISTORY: GESTATIONAL DIABETES MELITUS O24.419 COMPARISON: No relevant comparison available. TECHNIQUE: Ultrasound biophysical profile was performed in the radiology department. non-reactive stress testing was performed by nursingstaff in the birthing center. FINDINGS: BREATHING MOVEMENTS: 2 GROSS BODY MOVEMENTS: 2 TONE: 2 QUALITATIVE AMNIOTIC FLUID VOLUME: 2 PRESENTATION: CEPHALIC HEART RATE: 150.84 bpm AMNIOTIC FLUID VOLUME: 13.6 cm GESTATIONAL AGE: 36 weeks 6 days US/US OB BPP w non-stress IMPRESSION: Total biophysical profile score: 8 Electronically authenticated by: SEBASTIAN HENRY Date: 06/25/2024 12:22 Dictated By: Sebastian Henry M.D. Signed By:06/25/24 1225 DD/ 1222 TD/TT: Echometer Engineer: Estella Min DO [facility] Final Result documented in this encounter Visit Diagnoses Not on filedocumented in this encounter Care Teams Cargo Broker Relationship Specialty Start Date End Date Gissel Kimble MD PCP - General Family Medicine 04/02/23 documented as of this encounter
--- OUTSIDE RECORDS SUMMARY | 2025-07-30 10:30 | XMS_ITS | Encounter Summary ---
Author Organization [facility] Address [address] [place] [address] Care Team Providers Care Shot Polisher Name Role Phone Gissel Kimble MD Primary Care Provider [phone] Encounter Details Date Type Department Care Team (Late st Contact Info) Description 04/24/2024 Clinisync Result Encounter [facility] External Department Unsolicited Estella Min, DO [address] [facility] [address] [place], [place] [phone] Social History Tobacco Use Types Packs/Day Years [...] Date/Time Associated Diagnosis Comments US OB GROWTH 04/24/2024 9:59 AM EDT documented in this encounter Results * US OB GROWTH (04/24/2024 9:59 AM EDT) Anatomical Region Laterality Modality Other 04/24/2024 9:59 AM EDT Narrative 04/24/2024 10:02 AM EDT The [address] [address] Ultrasound Report Signed Patient: DIANE CONSTANTINO MR#: [id number] : 1995 Acct:[id number] Age/Sex: 28 / F ADM Date: 04/24/24 Loc: US Attending Dr: Estella Min D.O. Ordering Physician: Estella Min D.O. Date of Service: 04/24/24 Procedure(s): US OB growth Accession Number(s): [id number] cc: Estella Min D.O.; Physician,Non-Staff MKerwin [place] [address] Patient Name: DIANE CONSTANTINO MRN: [facility]:[id number] date: 1995 Sex: F Assigned Patient Location: US Current Patient Location: US Accession/Order Number: [id number] Exam Date: 04/24/2024 09:30 Report Date: 04/24/2024 09:59 At the request of: ESTELLA MIN Procedure: US OB growth EXAMINATION: US OB growth HISTORY: Gestational diabetes mellitus O24.419 COMPARISON: No relevant comparison available. FINDINGS: Heart Rate: 154 bpm Amniotic Fluid Volume: 14.4 cm. Largest fluid pocket 5.9 cm Number: 1 Position: Breech presentation, oblique lie BIOMETRY: BPD: 6.88 cm cm; 27 weeks 5 days; 27.30 %% HC: 26.97 cm cm; 29 weeks 3 days; 64.20 %% AC: 25.44 cm cm; 29 weeks 4 days; 86.60 %% FL: 5.54 cm cm; 29 weeks 1 day; 70.30 %% EFW: 1258.92 g; 3 lbs. 0 oz. 85.40 % FL/AC: 21.78 FL/BPD: 80.52 HC/AC: 1.06 GESTATIONAL AGE: Age by EDC: 20 weeks 0 days NILE by EDC: 2024-07-17 Age by US: 29 weeks 0 days NILE by US: 2024-07-10 US/US OB growth IMPRESSION: Normal interval growth Electronically authenticated by: SEBASTIAN HENRY Date: 04/24/2024 09:59 Dictated By: Sebastian Henry M.D. Signed By: 04/24/24 1002 DD/ 0959 TD/TT: Freight Separator: Procedure Note Radiology, Radiologist, MD - 04/24/2024 The [place] [id number] Ultrasound Report Signed Patient: DIANE CONSTANTINO RMR#: [id number] : 1995Acct:[id number] Age/Sex: 28 / FADM Date: 04/24/24 Loc: US Attending Dr: Estella Min D.O. Ordering Physician: Estella Min D.O. Date of Service: 04/24/24 Procedure(s): US OB growth Accession Number(s): [id number] cc: Estella Min D.O.; Physician,Non-Staff Nadya The [address] [address] Patient Name: DIANE CONSTANTINO MRN: [facility]:[id number] date: 1995 Sex: F Assigned Patient Location: US Current Patient Location: US Accession/Order Number: [id number] Exam Date: 04/24/2024 09:30 Report Date: 04/24/2024 09:59 At the request of: ESTELLA MIN Procedure: US OB growth EXAMINATION: US OB growth HISTORY: Gestational diabetes mellitus O24.419 COMPARISON: No relevant comparison available. FINDINGS: Heart Rate: 154 bpm Amniotic Fluid Volume: 14.4 cm. Largest fluid pocket 5.9 cm Number: 1 Position: Breech presentation, oblique lie BIOMETRY: BPD: 6.88 cm cm; 27 weeks 5 days; 27.30 %% HC: 26.97 cm cm; 29 weeks 3 days; 64.20 %% AC: 25.44 cm cm; 29 weeks 4 days; 86.60 %% FL: 5.54 cm cm; 29 weeks 1 day; 70.30 %% EFW: 1258.92 g; 3 lbs. 0 oz. 85.40 % FL/AC: 21.78 FL/BPD: 80.52 HC/AC: 1.06 GESTATIONAL AGE: Age by EDC: 20 weeks 0 days NILE by EDC: 2024-07-17 Age by US: 29 weeks 0 days NILE by US: 2024-07-10 US/US OB growth IMPRESSION: Normal interval growth Electronically authenticated by: SEBASTIAN HENRY Date: 04/24/2024 09:59 Dictated By: Sebastian Henry M.D. Signed By:04/24/24 1002 DD/ 0959 TD/TT: Freight Separator: us Estella Mechelle DO [facility] Final Result documented in this encounter Visit Diagnoses Not on filedocumented in this encounter Care Teams Shot Polisher Relationship Specialty Start Date End Date Gissel Kimble MD PCP - General Family Medicine 04/02/23 documented as of this encounter
--- OUTSIDE RECORDS SUMMARY | 2025-07-30 10:30 | XMS_ITS | Encounter Summary ---
Author Organization [facility] Address [address] [facility] [place] [address] Care Team Providers Care Hl7 Developer Name Role Phone Gissel Kimble MD Primary Care Provider [phone] Encounter Details Date Type Department Care Team (Late st Contact Info) Description 04/17/2024 Abstract [facility] [address] [facility] [place] [phone] Adis Min DO [address] Cash, [facility] Social History Tobacco Use Types [...] on filedocumented in this encounter Care Teams Hl7 Developer Relationship Specialty Start Date End Date Gissel Kimble MD PCP - General Family Medicine 04/02/23 documented as of this encounter
--- OUTSIDE RECORDS SUMMARY | 2025-07-30 10:30 | XMS_ITS | Encounter Summary ---
Author Organization [facility] Address [address] [place] [address] Care Team Providers Care Employment Programs Analyst Name Role Phone Gissel Kimble MD Primary Care Provider [phone] Encounter Details Date Type Department Care Team (Late st Contact Info) Description 04/10/2024 Clinisync Result Encounter [facility] External Department Unsolicited Estella Min, DO [address] [facility] [address] [place], [place] [id number] Social History Tobacco Use Types Packs/Day Years [...] Priority Date/Time Associated Diagnosis Comments US OB FOLLOW UP 04/10/2024 9:08 AM EDT documented in this encounter Results * US OB FOLLOW UP (04/10/2024 9:08 AM EDT) Anatomical Region Laterality Modality Radiographic Evelia ging 04/10/2024 9:08 AM EDT Narrative 04/10/2024 9:11 AM EDT The [address] [address] Ultrasound Report Signed Patient: DIANE CONSTANTINO MR#: [id number] : 1995 Acct:[id number] Age/Sex: 28 / F ADM Date: 04/10/24 Loc: [facility] Attending Dr: Estella Min D.O. Ordering Physician: Estella Min D.O. Date of Service: 04/10/24 Procedure(s): US OB follow up Accession Number(s): [id number] cc: Estella Min D.O.; Physician,Non-Staff Nadya The [place] [id number] Patient Name: DIANE CONSTANTINO MRN: [facility]:[id number] date: 1995 Sex: F Assigned Patient Location: [facility] Current Patient Location: [facility] Accession/Order Number: [id number] Exam Date: 04/10/2024 08:31 Report Date: 04/10/2024 09:08 At the request of: ESTELLA MIN Procedure: US OB follow up EXAMINATION: US OB transvaginal, US OB follow up HISTORY: LOW LYING PLACENTA COMPARISON: 12/13/2023, 02/28/2024 FINDINGS: position: Cephalic presentation, longitudinal lie Placenta: Posterior. No intraplacental or retroplacental echogenic abnormality. The placental tip is 3.8 cm from the internal cervical os Three-vessel. Cervix: Closed, 4.9 cm in length Heart rate: 144 beats minute Clinical age: 26 weeks 0 days Clinical NILE: 07/17/2024 US/US OB follow up IMPRESSION: The placental edge is 3.8 cm from the internal cervical os Closed cervix measuring 4.9 cm Electronically authenticated by: SEBASTIAN HENRY Date: 04/10/2024 09:08 Dictated By: Sebastian Henry M.D. Signed By: 04/10/24910 DD/ 7 TD/TT: Manager Steel: Procedure Note Radiology, Radiologist, MD - 04/10/2024 [place] [address] Ultrasound Report Signed Patient: DIANE CONSTANTINO RMR#: [id number] : 1995Acct:[id number] Age/Sex: 28 / FADM Date: 04/10/24 Loc: [facility] Attending Dr: Estella Min D.O. Ordering Physician: Estella Min D.O. Date of Service: 04/10/24 Procedure(s): US OB follow up Accession Number(s): [id number] cc: Estella Min D.O.; Physician,Non-Staff M.DDamon [place] [id number] Patient Name: DIANE CONSTANTINO MRN: [facility]:[id number] date: 1995 Sex: F Assigned Patient Location: [facility] Current Patient Location: [facility] Accession/Order Number: [id number] Exam Date: 04/10/2024 08:31 Report Date: 04/10/2024 09:08 At the request of: ESTELLA MIN Procedure: US OB follow up EXAMINATION: US OB transvaginal, US OB follow up HISTORY: LOW LYING PLACENTA COMPARISON: 12/13/2023, 02/28/2024 FINDINGS: position: Cephalic presentation, longitudinal lie Placenta: Posterior. No intraplacental or retroplacental echogenic abnormality. The placental tip is 3.8 cm from the internal cervical os Three-vessel. Cervix: Closed, 4.9 cm in length Heart rate: 144 beats minute Clinical age: 26 weeks 0 days Clinical NILE: 07/17/2024 US/US OB follow up IMPRESSION: The placental edge is 3.8 cm from the internal cervical os Closed cervix measuring 4.9 cm Electronically authenticated by: SEBASTIAN HENRY Date: 04/10/2024 09:08 Dictated By: Sebastian Henry M.D. Signed By:04/10/24910 DD/ 7 TD/TT: Manager Steel: Estella Min DO IMG XR PROCEDURES Final Result documented in this encounter Visit Diagnoses Not on filedocumented in this encounter Care Teams Employment Programs Analyst Relationship Specialty Start Date End Date Gissel Kimble MD PCP - General Family Medicine 04/02/23 documented as of this encounter
--- OUTSIDE RECORDS SUMMARY | 2025-07-30 10:30 | XMS_ITS | Encounter Summary ---
Author Organization [facility] Address [address] [place] [address] Care Team Providers Care Coin Machine Assembler Name Role Phone Gissel Kimble MD Primary Care Provider [phone] Encounter Details Date Type Department Care Team (Late st Contact Info) Description 05/21/2024 Clinisync Result Encounter [facility] External Department Unsolicited Estella Min, DO [address] [facility] [address] [place], [place] [id number] Social History Tobacco Use Types Packs/Day Years [...] Date/Time Associated Diagnosis Comments US OB GROWTH 05/21/2024 12:18 PM EDT documented in this encounter Results * US OB GROWTH (05/21/2024 12:18 PM EDT) Anatomical Region Laterality Modality Other 05/21/2024 12:1 8 PM EDT Narrative 05/21/2024 12:20 PM EDT The [address] [address] Ultrasound Report Signed Patient: DIANE CONSTANTINO MR#: [id number] : 1995 Acct:[id number] Age/Sex: 28 / F ADM Date: 05/21/24 Loc: [facility] 250-[address]: Estella Min D.O. Ordering Physician: Estella Min D.O. Date of Service: 05/21/24 Procedure(s): US OB growth Accession Number(s): [id number] cc: Estella Min D.O.; Physician,Non-Staff Nadya [place] [id number] Patient Name: DIANE CONSTANTINO MRN: [facility]:[id number] date: 1995 Sex: F Assigned Patient Location: [facility] Current Patient Location: [facility] Accession/Order Number: [id number] Exam Date: 05/21/2024 11:05 Report Date: 05/21/2024 12:18 At the request of: ESTELLA MIN Procedure: US OB growth EXAMINATION: US OB growth HISTORY: Gestational diabetes mellitus O24.419 COMPARISON: No relevant comparison available. FINDINGS: Heart Rate: 163.64 bpm Amniotic Fluid Volume: 18.4 cm, largest fluid pocket 6.4 cm Number: 1 Position: Cephalic presentation, longitudinal lie BIOMETRY: BPD: 8.09 cm; 32 weeks 3 days; 60 % HC: 30.66 cm; 34 weeks 1 day; 75.10 % AC: 29.91 cm; 33 weeks 6 days; 93.70 % FL: 5.87 cm; 30 weeks 5 days; 11 % EFW: 2066.86 g; 72.20 %, 4 lbs. 9 oz. FL/AC: 19.64 FL/BPD: 72.65 HC/AC: 1.03 GESTATIONAL AGE: Age by EDC: 31 weeks 6 days NILE by EDC: 2024-07-17 Age by US: 32 weeks 6 days NILE by US: 2024-07-10 US/US OB growth IMPRESSION: Normal interval growth Electronically authenticated by: SEBASTIAN HENRY Date: 05/21/2024 12:18 Dictated By: Sebastian Henry M.D. Signed By: 05/21/24 1220 DD/ 1218 TD/TT: Warehouse Foreman: Procedure Note Radiology, Radiologist, - 05/21/2024 [place] [address] Ultrasound Report Signed Patient: DIANE CONSTANTINO RMR#: [id number] : 1995Acct:[id number] Age/Sex: 28 / FADM Date: 05/21/24 Loc: [facility] 250-[address]: Estella Min D.O. Ordering Physician: Estella Min D.O. Date of Service: 05/21/24 Procedure(s): US OB growth Accession Number(s): [id number] cc: Estella Min D.O.; Physician,Non-Staff Nadya The [place] [id number] Patient Name: DIANE CONSTANTINO MRN: [id number] date: 1995 Sex: F Assigned Patient Location: [facility] Current Patient Location: [facility] Accession/Order Number: [id number] Exam Date: 05/21/2024 11:05 Report Date: 05/21/2024 12:18 At the request of: ESTELLA MIN Procedure: US OB growth EXAMINATION: US OB growth HISTORY: Gestational diabetes mellitus O24.419 COMPARISON: No relevant comparison available. FINDINGS: Heart Rate: 163.64 bpm Amniotic Fluid Volume: 18.4 cm, largest fluid pocket 6.4 cm Number: 1 Position: Cephalic presentation, longitudinal lie BIOMETRY: BPD: 8.09 cm; 32 weeks 3 days; 60 % HC: 30.66 cm; 34 weeks 1 day; 75.10 % AC: 29.91 cm; 33 weeks 6 days; 93.70 % FL: 5.87 cm; 30 weeks 5 days; 11 % EFW: 2066.86 g; 72.20 %, 4 lbs. 9 oz. FL/AC: 19.64 FL/BPD: 72.65 HC/AC: 1.03 GESTATIONAL AGE: Age by EDC: 31 weeks 6 days NILE by EDC: 2024-07-17 Age by US: 32 weeks 6 days NILE by US: 2024-07-10 US/US OB growth IMPRESSION: Normal interval growth Electronically authenticated by: SEBASTIAN HENRY Date: 05/21/2024 12:18 Dictated By: Sebastian Henry M.D. Signed By:05/21/24 1220 DD/ 1218 TD/TT: Warehouse Foreman: us Estella Min DO [facility] Final Result documented in this encounter Visit Diagnoses Not on filedocumented in this encounter Care Teams Coin Machine Assembler Relationship Specialty Start Date End Date Gissel Kimble MD PCP - General Family Medicine 04/02/23 documented as of this encounter
--- OUTSIDE RECORDS SUMMARY | 2025-07-30 10:30 | XMS_ITS | Encounter Summary ---
Author Organization [facility] Address [address] [facility] [place] [address] Care Team Providers Care Circular Tank Cooper Name Role Phone Gissel Kimble MD Primary Care Provider Encounter Details Date Type Department Care Team (Late st Contact Info) Description 06/27/2024 Abstract [facility] [address] [place] [phone] Adis Min DO [address] [facility] [address] Jj Cash, [facility] Social History Tobacco Use Types Packs/Day Years Used Date Smoking Tobacco: Never Assessed Comments Yes Sex and Gender Information Value Date Recorded Sex Assigned at Not on file Legal Sex Female 7:25 PM EDT Gender Identity Not on file Sexual Orientation Not on file documented as of this encounter Plan of Treatment Not on file documented as of this encounter Visit Diagnoses Not on filedocumented in this encounter Care Teams Circular Tank Cooper Relationship Specialty Start Date End Date Gissel Kimble MD PCP - General Family Medicine 04/02/23 documented as of this encounter
--- OUTSIDE RECORDS SUMMARY | 2025-07-30 10:30 | XMS_ITS | Encounter Summary ---
Author Organization [facility] Address [address] [place] [address] Care Team Providers Care Instrument Panel Assembler Name Role Phone Gissel Kimble MD Primary Care Provider [phone] Encounter Details Date Type Department Care Team (Late st Contact Info) Description 06/04/2024 Clinisync Result Encounter [facility] External Department Unsolicited Estella Min, DO [address] [facility] [address] [place], [place] [id number] Social History Tobacco Use Types Packs/Day Years [...] Diagnosis Comments US OB BPP W NON-STRESS 06/04/2024 11:57 AM EDT documented in this encounter Results * US OB BPP W NON-STRESS (06/04/2024 11:57 AM EDT) Anatomical Region Laterality Modality Other 06/04/2024 11:5 7 AM EDT Narrative 06/04/2024 12:00 PM EDT The [address] [address] Ultrasound Report Signed Patient: DIANE CONSTANTINO MR#: [id number] : 1995 Acct:[id number] Age/Sex: 28 / F ADM Date: 06/04/24 Loc: [facility] 250-[address]: Estella Min D.O. Ordering Physician: Estella Min D.O. Date of Service: 06/04/24 Procedure(s): US OB BPP w non-stress Accession Number(s): [id number] cc: Estella Min D.O.; Physician,Non-Staff M.DDamon The [place] [address] Patient Name: DIANE CONSTANTINO MRN: [facility]:[id number] date: 1995 Sex: F Assigned Patient Location: [facility] Current Patient Location: [facility] Accession/Order Number: [id number] Exam Date: 06/04/2024 11:05 Report Date: 06/04/2024 11:57 At the request of: ESTELLA MIN Procedure: US OB BPP w non-stress EXAMINATION: US OB BPP w non-stress HISTORY:GESTATIONAL DIABETES MELLITUS O24.419 COMPARISON: No relevant comparison available. TECHNIQUE: Ultrasound biophysical profile was performed in the radiology department. BREATHING MOVEMENTS: 2 GROSS BODY MOVEMENTS: 2 TONE: 2 QUALITATIVE AMNIOTIC FLUID VOLUME: 2 PRESENTATION: CEPHALIC HEART RATE: 169 bpm AMNIOTIC FLUID VOLUME: 18.17 cm GESTATIONAL AGE: 33 weeks 6 days US/US OB BPP w non-stress IMPRESSION: Total biophysical profile score: 8 Electronically authenticated by: CHIRAG ZUÑIGA Date: 06/04/2024 11:57 Dictated By: Chirag Zuñiga M.D. Signed By: 06/04/24 1200 DD/ 1157 TD/TT: Market Researcher: Procedure Note Radiology, Radiologist, MD - 06/04/2024 [place] [address] Ultrasound Report Signed Patient: DIANE CONSTANTINO RMR#: [id number] : 1995Acct:[id number] Age/Sex: 28 / FADM Date: 06/04/24 Loc: [facility] 250-[address]: Estella Min D.O. Ordering Physician: Estella Min D.O. Date of Service: 06/04/24 Procedure(s): US OB BPP w non-stress Accession Number(s): [id number] cc: Estella Min D.O.; Physician,Non-Staff Nadya [place] [address] Patient Name: DIANE CONSTANTINO MRN: [id number] date: 1995 Sex: F Assigned Patient Location: [facility] Current Patient Location: [facility] Accession/Order Number: [id number] Exam Date: 06/04/2024 11:05 Report Date: 06/04/2024 11:57 At the request of: ESTELLA MIN Procedure: US OB BPP w non-stress EXAMINATION: US OB BPP w non-stress HISTORY:GESTATIONAL DIABETES MELLITUS O24.419 COMPARISON: No relevant comparison available. TECHNIQUE: Ultrasound biophysical profile was performed in the radiology department. BREATHING MOVEMENTS: 2 GROSS BODY MOVEMENTS: 2 TONE: 2 QUALITATIVE AMNIOTIC FLUID VOLUME: 2 PRESENTATION: CEPHALIC HEART RATE: 169 bpm AMNIOTIC FLUID VOLUME: 18.17 cm GESTATIONAL AGE: 33 weeks 6 days US/US OB BPP w non-stress IMPRESSION: Total biophysical profile score: 8 Electronically authenticated by: CHIRAG ZUÑIGA Date: 06/04/2024 11:57 Dictated By: Chirag Zuñiga M.D. Signed By:06/04/24 1200 DD/ 1157 TD/TT: Market Researcher: us Estella Min DO [facility] Final Result documented in this encounter Visit Diagnoses Not on filedocumented in this encounter Care Teams Instrument Panel Assembler Relationship Specialty Start Date End Date Gissel Kimble MD PCP - General Family Medicine 04/02/23 documented as of this encounter
--- OUTSIDE RECORDS SUMMARY | 2025-07-30 10:30 | XMS_ITS | Encounter Summary ---
Author Organization [facility] Address [address] [place] [address] Care Team Providers Care Account Group Supervisor Name Role Phone Gissel Kimble MD Primary Care Provider [phone] Encounter Details Date Type Department Care Team (Late st Contact Info) Description 05/06/2024 Abstract [facility] [address] [facility] [place] [phone] Adis Min DO [address] [place]j Cash, [facility] Social History Tobacco Use Types Packs/Day [...] on filedocumented in this encounter Care Teams Account Group Supervisor Relationship Specialty Start Date End Date Gissel Kimble MD PCP - General Family Medicine 04/02/23 documented as of this encounter
--- OUTSIDE RECORDS SUMMARY | 2025-07-30 10:30 | XMS_ITS | Encounter Summary ---
Author Organization [facility] Address [address] [place] [address] Care Team Providers Care Policy Analyst Name Role Phone Gissel Kimble MD Primary Care Provider [phone] Encounter Details Date Type Department Care Team (Late st Contact Info) Description 05/28/2024 Clinisync Result Encounter [facility] External Department Unsolicited Estella Min, DO [address] [facility] [address] [place], [place] [id number] Social History Tobacco Use Types Packs/Day Years [...] Diagnosis Comments US OB BPP W NON-STRESS 05/28/2024 11:35 AM EDT documented in this encounter Results * US OB BPP W NON-STRESS (05/28/2024 11:35 AM EDT) Anatomical Region Laterality Modality Other 05/28/2024 11:3 5 AM EDT Narrative 05/28/2024 11:37 AM EDT The [address] [address] Ultrasound Report Signed Patient: DIANE CONSTANTINO MR#: [id number] : 1995 Acct:[id number] Age/Sex: 28 / F ADM Date: 05/28/24 Loc: US Attending Dr: Estella Min D.O. Ordering Physician: Estella Min D.O. Date of Service: 05/28/24 Procedure(s): US OB BPP w non-stress Accession Number(s): [id number] cc: Estella Min D.O.; Physician,Non-Staff Nadya The [place] [address] Patient Name: DIANE CONSTANTINO MRN: [id number] date: 1995 Sex: F Assigned Patient Location: [facility] Current Patient Location: [facility] Accession/Order Number: [id number] Exam Date: 05/28/2024 11:01 Report Date: 05/28/2024 11:35 At the request of: ESTELLA MIN Procedure: US OB BPP w non-stress EXAMINATION: US OB BPP w non-stress HISTORY: Gestational diabetes mellitus COMPARISON: No relevant comparison available. TECHNIQUE: Ultrasound biophysical profile was performed in the radiology department. non-reactive stress testing was performed by nursing staff in the birthing center. FINDINGS: BREATHING MOVEMENTS: 2 GROSS BODY MOVEMENTS: 2 TONE: 2 QUALITATIVE AMNIOTIC FLUID VOLUME: 2 PRESENTATION: CEPHALIC HEART RATE: 200.54 bpm AMNIOTIC FLUID VOLUME: 18.5cm GESTATIONAL AGE: 32w6d US/US OB BPP w non-stress IMPRESSION: Total biophysical profile score: 8 Electronically authenticated by: SEBASTIAN HENRY Date: 05/28/2024 11:35 Dictated By: Sebastian Henry M.D. Signed By: 05/28/24 1137 DD/ 1135 TD/TT: Film Spooler: Procedure Note Radiology, Radiologist, MD - 05/28/2024 [place] [address] Ultrasound Report Signed Patient: DIANE CONSTANTINO RMR#: [id number] : 1995Acct:[id number] Age/Sex: 28 / FADM Date: 05/28/24 Loc: US Attending Dr: Estella Min D.O. Ordering Physician: Estella Min D.O. Date of Service: 05/28/24 Procedure(s): US OB BPP w non-stress Accession Number(s): [id number] cc: Estella Min D.O.; Physician,Non-Staff [place] [address] Patient Name: DIANE CONSTANTINO MRN: [facility]:[id number] date: 1995 Sex: F Assigned Patient Location: [facility] Current Patient Location: [facility] Accession/Order Number: [id number] Exam Date: 05/28/2024 11:01 Report Date: 05/28/2024 11:35 At the request of: ESTELLA MIN Procedure: US OB BPP w non-stress EXAMINATION: US OB BPP w non-stress HISTORY: Gestational diabetes mellitus COMPARISON: No relevant comparison available. TECHNIQUE: Ultrasound biophysical profile was performed in the radiology department. non-reactive stress testing was performed by nursingstaff in the birthing center. FINDINGS: BREATHING MOVEMENTS: 2 GROSS BODY MOVEMENTS: 2 TONE: 2 QUALITATIVE AMNIOTIC FLUID VOLUME: 2 PRESENTATION: CEPHALIC HEART RATE: 200.54 bpm AMNIOTIC FLUID VOLUME: 18.5cm GESTATIONAL AGE: 32w6d US/US OB BPP w non-stress IMPRESSION: Total biophysical profile score: 8 Electronically authenticated by: SEBASTIAN HENRY Date: 05/28/2024 11:35 Dictated By: Sebastian Henry M.D. Signed By:05/28/24 1137 DD/ 1135 TD/TT: Film Spooler: us Estella Min DO [facility] Final Result documented in this encounter Visit Diagnoses Not on filedocumented in this encounter Care Teams Policy Analyst Relationship Specialty Start Date End Date Gissel Kimble MD PCP - General Family Medicine 04/02/23 documented as of this encounter
--- OUTSIDE RECORDS SUMMARY | 2025-07-30 10:30 | XMS_ITS | Encounter Summary ---
Author Organization [facility] Address [address] [place] [address] Care Team Providers Care Roasterman Name Role Phone Gissel Kimble MD Primary Care Provider [phone] Encounter Details Date Type Department Care Team (Late st Contact Info) Description 04/10/2024 Clinisync Result Encounter [facility] External Department Unsolicited Estella Min, DO [address] [facility] [address] [place], [place] [id number] Social History Tobacco Use Types Packs/Day Years [...] Date/Time Associated Diagnosis Comments US OB TRANSVAGINAL 04/10/2024 9: 08 AM EDT documented in this encounter Results * US OB TRANSVAGINAL (04/10/2024 9:08 AM EDT) Anatomical Region Laterality Modality Other 04/10/2024 9:08 AM EDT Narrative 04/10/2024 9:11 AM EDT The [address] [address] Ultrasound Report Signed Patient: DIANE CONSTANTINO MR#: [id number] : 1995 Acct:[id number] Age/Sex: 28 / F ADM Date: 04/10/24 Loc: [facility] Attending Dr: Estella Min D.O. Ordering Physician: Estella Min D.O. Date of Service: 04/10/24 Procedure(s): US OB transvaginal Accession Number(s): [id number] cc: Estella Min D.O.; Physician,Non-Staff Nadya The [place] [id number] Patient Name: DIANE CONSTANTINO MRN: [id number] date: 1995 Sex: F Assigned Patient Location: [facility] Current Patient Location: [facility] Accession/Order Number: [id number] Exam Date: 04/10/2024 08:31 Report Date: 04/10/2024 09:08 At the request of: ESTELLA MIN Procedure: US OB transvaginal EXAMINATION: US OB transvaginal, US OB follow up HISTORY: LOW LYING PLACENTA COMPARISON: 12/13/2023, 02/28/2024 FINDINGS: position: Cephalic presentation, longitudinal lie Placenta: Posterior. No intraplacental or retroplacental echogenic abnormality. The placental tip is 3.8 cm from the internal cervical os Three-vessel. Cervix: Closed, 4.9 cm in length Heart rate: 144 beats minute Clinical age: 26 weeks 0 days Clinical NILE: 07/17/2024 US/US OB transvaginal IMPRESSION: The placental edge is 3.8 cm from the internal cervical os Closed cervix measuring 4.9 cm Electronically authenticated by: SEBASTIAN HENRY Date: 04/10/2024 09:08 Dictated By: Sebastian Henry M.D. Signed By: 04/10/24910 DD/ 7 TD/TT: Senior Logistics Manager: Procedure Note Radiology, Radiologist, MD - 04/10/2024 [place] [address] Ultrasound Report Signed Patient: DIANE CONSTANTINO RMR#: [id number] : 1995Acct:[id number] Age/Sex: 28 / FADM Date: 04/10/24 Loc: [facility] Attending Dr: Estella Min D.O. Ordering Physician: Estelal Min D.O. Date of Service: 04/10/24 Procedure(s): US OB transvaginal Accession Number(s): [id number] cc: Estella Min D.O.; Physician,Non-Staff MKerwin [place] [id number] Patient Name: DIANE CONSTANTINO MRN: [id number] date: 1995 Sex: F Assigned Patient Location: [facility] Current Patient Location: [facility] Accession/Order Number: [id number] Exam Date: 04/10/2024 08:31 Report Date: 04/10/2024 09:08 At the request of: ESTELLA MIN Procedure: US OB transvaginal EXAMINATION: US OB transvaginal, US OB follow up HISTORY: LOW LYING PLACENTA COMPARISON: 12/13/2023, 02/28/2024 FINDINGS: position: Cephalic presentation, longitudinal lie Placenta: Posterior. No intraplacental or retroplacental echogenic abnormality. The placental tip is 3.8 cm from the internal cervical os Three-vessel. Cervix: Closed, 4.9 cm in length Heart rate: 144 beats minute Clinical age: 26 weeks 0 days Clinical NILE: 07/17/2024 US/US OB transvaginal IMPRESSION: The placental edge is 3.8 cm from the internal cervical os Closed cervix measuring 4.9 cm Electronically authenticated by: SEBASTIAN HENRY Date: 04/10/2024 09:08 Dictated By: Sebastian Henry M.D. Signed By:04/10/24910 DD/ 7 TD/TT: Senior Logistics Manager: us Estella Min DO [facility] Final Result documented in this encounter Visit Diagnoses Not on filedocumented in this encounter Care Teams Roasterman Relationship Specialty Start Date End Date Gissel Kimble MD PCP - General Family Medicine 04/02/23 documented as of this encounter
--- OUTSIDE RECORDS SUMMARY | 2025-07-30 10:30 | XMS_ITS | Encounter Summary ---
Author Organization [facility] Address [address] [place] [address] Care Team Providers Care Nitrogen Operator Name Role Phone Gissel Kimble MD Primary Care Provider [phone] Encounter Details Date Type Department Care Team (Late st Contact Info) Description 02/28/2024 Clinisync Result Encounter [facility] External Department Unsolicited Estella Min, DO [address] [facility] [address] [place], [place] [id number] Social History Tobacco Use Types Packs/Day Years [...] Priority Date/Time Associated Diagnosis Comments US OB ANATOMY 02/28/2024 10:11 AM EDT documented in this encounter Results * US OB ANATOMY (02/28/2024 10:11 AM EDT) Anatomical Region Laterality Modality Other 02/28/2024 10:1 1 AM EDT Narrative 02/28/2024 10:14 AM EDT The [address] [address] Ultrasound Report Signed Patient: DIANE CONSTANTINO MR#: [id number] : 1995 Acct:[id number] Age/Sex: 28 / F ADM Date: 02/28/24 Loc: [facility] Attending Dr: Estella Min D.O. Ordering Physician: Estella Min D.O. Date of Service: 02/28/24 Procedure(s): US OB anatomy Accession Number(s): [id number] cc: Estella Min D.O.; Physician,Non-Staff [place] [id number] Patient Name: DIANE CONSTANTINO MRN: [id number] date: 1995 Sex: F Assigned Patient Location: [facility] Current Patient Location: [facility] Accession/Order Number: [id number] Exam Date: 02/28/2024 08:02 Report Date: 02/28/2024 10:11 At the request of: ESTELLA MIN Procedure: US OB anatomy EXAMINATION: US OB anatomy, US OB cervical [...] NILE by current US: 07/22/2024 US/US OB anatomy IMPRESSION: Suboptimal exam secondary to maternal body [...] Signed By: 02/28/24 1014 DD/ 1011 TD/TT: Saddle And Harness Maker: Procedure Note Radiology, Radiologist, MD - 02/28/2024 [place] [address] Ultrasound Report Signed Patient: DIANE CONSTANTINO RMR#: [id number] : 1995Acct:[id number] Age/Sex: 28 / FADM Date: 02/28/24 Loc: [facility] Attending Dr: Estella Min D.O. Ordering Physician: Estella Min D.O. Date of Service: 02/28/24 Procedure(s): US OB anatomy Accession Number(s): [id number] cc: Estella Min D.O.; Physician,Non-Staff [place] [facility] [place] [address] Patient Name: DIANE CONSTANTINO MRN: [facility]:[id number] date: 1995 Sex: F Assigned Patient Location: [facility] Current Patient Location: [facility] Accession/Order Number: [id number] Exam Date: 02/28/2024 08:02 Report Date: 02/28/2024 10:11 At the request of: ESTELLA MIN Procedure: US OB anatomy EXAMINATION: US OB anatomy, US OB cervical [...] NILE by current US: 07/22/2024 US/US OB anatomy IMPRESSION: Suboptimal exam secondary to maternal body [...] M.D. Signed By:02/28/24 1014 DD/ 1011 TD/TT: Saddle And Harness Maker: us Estella Mechelle DO [facility] Final Result documented in this encounter Visit Diagnoses Not on filedocumented in this encounter Care Teams Nitrogen Operator Relationship Specialty Start Date End Date Gissel Kimble MD PCP - General Family Medicine 04/02/23 documented as of this encounter
== END 2025-07-30 10:29 | disposition home or self-care (01) ==
LOC: CARD 10:28
DX: Z01.818 Encounter for other preprocedural examination (principal); E66.01 Morbid (severe) obesity due to excess calories
CPT/HCPCS: 93005